=== PATIENT | male | born 1970 | race Caucasian/White ===

== ENCOUNTER → 2016-11-26 | Outpatient (REF) | payer MEDICARE, MEDICAID ==
[~2016-11-26] MED LIST: /ADVA50050; /ADVA50050 IN; /ADVA50050 INH; /ALBU4TAB PO; /ESCI10TA; /ESCI20TA; /ESCI20TA OR; /FAMO2TA PO; /LINE60TA OR; /MOM400 PO; /ONDA4TA OR; /ONDA4TA PO; ACET-654 PO; ACET500C OR; ALB2.5NEB INH; ALBU17IN INH; ALBU17IN2; ALBU17IN2 IN; ALBU83IN; ALBU83IN INH; ALBUTEROL INH; ASPI81TA45 PO; ASPI81TA51 PO; ASPI81TA85 PO; ATIV1TAB10 PO; BACT2CRE TOP; BALMOINT60 TOP; CALC500C16 PO; CEFT250T8 PO; CELE100C OR; CINACALCET; CLON0.5T PO; CLON1TAB OR; CLOP75TA2 PO; CLOTR1CR TOP; COMBVENT; COMPAZINE; CORE6.25 PO; COZA100T2 PO; DARV100T; DRIS50002 PO; DULC10SU9 PR; ENEMENE3 PR; EUCECRE12 TOP; FAMO1TAB11 PO; FLEEENE4 PR; FLEXERIL; FOSR1000 PO; GABA300C2 PO; GABAPEN; Gabapentin PO; HEPA10004 SUBQ; IMODIUM; KLON0.5T PO; KLON1TAB OR; KLON1TAB PO; LEXA1TAB2 PO; LOPERAMIDE PO; LOPR50TA OR; LOPR50TA PO; LOPRESSOR PO; LOSA100T36 PO; LOVE1INJ SC; LYRI75CA OR; MERO1INJ8 IV; METO12TA PO; METO25TA2 OR; METO25TAB PO; METOPROLOL TARTRATE; MILKSUS PO; MIRA0.12 PO; MIRA255PW OR; MIRA255PW PO; MIRAPEX; MOBI15TA PO; MOISTURIN CREAM TOP; NEPH1CAP4 OR; NEPHCAP PO; NEUR100C OR; NEUR300C PO; NIFE30TA; NORTRIPTYLINE; NYST100024 TOP; OMEP20TA7 OR; OXYC30TA4 PO; Omeprazole PO; PACE200T PO; PERC5TAB6 PO; PERC5TAB8; PERC5TAB8 OR; PERC7.5T12 PO; PERCOCET OR; PHOS667C PO; PHOSLO667 MG; PHOSLO667 MG OR; PHOSLO667 MG PO; PRED10TA2 OR; PRED20TA OR; PRED20TA PO; PRIL20CA; PRIL20CA OR; PRIL20CA PO; PROTPAK PO; PROV90AE; PROZ10CA; RENA800T; RENV2TAB PO; RENVELA OR; RENVELA PO; Renagel; SENISPAR PO; SENN-23 PO; SENN8.6C PO; SENO8.6T9 OR; SENS30TA PO; SENS60TA PO; SENS90TA PO; SENSIPAR; SENSIPAR OR; SENSIPAR PO; SEVE80TAB OR; SEVE80TAB PO; SEVELAMER CARBONATE PO; Sensipar PO; THEO300C; TIZA2TAB OR; TOPI25TA2; TOPR25TA; TOPR25TA OR; TRAM50TA2 OR; TRAMADOL PO; TRAZ50TA OR; TRAZ50TA PO; TYLE325T5 PO; VANC1INJ IV; VARE1TA; VENTAER; VICO5TAB; VIST25CA PO; VIST50CA PO; VITA500047 PO; VITAMIN D PO; VITAMIN D50000 UNT; VITAMIN D50000 UNT OR; ZANA2CAP; ZANA4CAP PO; ZEMPLAR; ZEMPLAR IV; ZEMPLAR OR; ZOFR20TA PO; ZOLO100T PO; ZOLO25TA; [UNRECOGNIZED DRUG - CODE] IV; [UNRECOGNIZED DRUG - CODE] PO; [UNRECOGNIZED DRUG - CODE] PO; [UNRECOGNIZED DRUG - OTHER]; [UNRECOGNIZED DRUG - OTHER]; [UNRECOGNIZED DRUG - OTHER] PO; [UNRECOGNIZED DRUG - OTHER] PO
== END ==
LOC: SKLAB3 17:36
PROVIDERS: ATTEND Family Medicine
DX: H10.9 Unspecified conjunctivitis (principal)

== ENCOUNTER → 2016-12-07 | Outpatient (REF) | payer MEDICARE, MEDICAID ==
--- NOTE | 2016-12-07 14:46 | REP ---
Clinical: Shortness of breath and wheezing. Technique: AP and lateral views. Comparison: 09/17/2016. Findings: Cardiomegaly is appreciated. Tracheostomy overlies the airway. Pulmonary vascular congestion with interstitial edema and trace right basilar atelectasis cannot be excluded. No definite effusion. No obvious pneumothorax. Skeletal structures grossly intact. Impression: Stable cardiomegaly. Cannot exclude mild pulmonary vascular congestion and interstitial edema as well as trace right basilar atelectasis. Signed by Juma March MD 12/07/2016 02:38 P
== END ==
LOC: SKLAB3 12:35
PROVIDERS: ATTEND Family Medicine
DX: R06.2 Wheezing (principal); R06.02 Shortness of breath; I51.7 Cardiomegaly

== ENCOUNTER → 2017-02-12 | Outpatient (REF) | payer MEDICARE, MEDICAID ==
[~2017-02-12] MED LIST changes: -PHOS667C PO; +PHOS667C5 PO
== END ==
LOC: SKLAB3 02-11 14:27
PROVIDERS: ATTEND Family Medicine
DX: G47.30 Sleep apnea, unspecified (principal)

== ENCOUNTER → 2017-04-23 | Outpatient (REF) | payer MEDICARE, MEDICAID ==
[~2017-04-23] MED LIST changes: -ACET-654 PO; +ACET1TAB17 PO; +AMOX200S2 PO; +ENEMENE16 PR; -ENEMENE3 PR; +IPRASOL4 INH; +NEPHTAB PO; -NYST100024 TOP; +NYST1POW9 TOP; +PERC5TAB12 PO; -PERC5TAB6 PO; +XANA1TAB2 PO
== END ==
LOC: SKLAB3 10:03
PROVIDERS: ATTEND Family Medicine
DX: R09.3 Abnormal sputum (principal)

== ENCOUNTER → 2017-07-09 | Outpatient (REF) | payer MEDICARE, MEDICAID ==
[2017-07-09 10:42] LABS: BASO % 0.5 % (0.0-1.0); EOS # 0.4 K/mm3 (0.0-0.50); EOS % 4.9 % (0.0-3.0); LARGE UNSTAINED CELL # 0.1 K/mm3 (0.0-0.4); LARGE UNSTAINED CELL % 1.5 % (0.0-4.0); LYMPH # 2.1 K/mm3 (1.5-4.5); LYMPH % 30.1 % (24.0-44.0); MEAN CORPUSCULAR HEMOGLOBIN 34.2 pg (27.0-33.0); MEAN CORPUSCULAR VOLUME 106.9 fl (80.0-96.0); MONO # 0.3 K/mm3 (0.0-0.8); MONO % 4.5 % (0.0-5.0); NEUTROPHILS # 4.1 K/mm3 (1.8-7.7); NEUTROPHILS % 58.5 % (36.0-66.0); PLATELET COUNT, AUTOMATED 147 k/mm3 (150-450); RED CELL DISTRIBUTION WIDTH 13.4 % (11.5-14.5); WHITE BLOOD COUNT 7.1 K/mm3 (4.0-10.0)
[2017-07-09 11:06] LABS: ALBUMIN 3.6 GM/DL (3.2-5.2); ALBUMIN/GLOBULIN RATIO 0.88 (1.00-1.93); BILIRUBIN,TOTAL 0.4 MG/DL (0.2-1.0); CALCIUM LEVEL 9.1 MG/DL (8.5-10.1); CREATININE FOR GFR 6.87 MG/DL (0.70-1.30); FREE T4 0.99 NG/DL (0.76-1.46); GLOMERULAR FILTRATION RATE 9.3 (>60); POTASSIUM SERUM 4.3 MEQ/L (3.5-5.1); TOTAL PROTEIN 7.7 GM/DL (6.4-8.2)
== END ==
LOC: SKLAB3 02:38
PROVIDERS: ATTEND Family Medicine
DX: N18.6 End stage renal disease (principal); Z79.899 Other long term (current) drug therapy

== ENCOUNTER → 2017-07-14 | Outpatient (REF) | payer MEDICARE, MEDICAID ==
--- NOTE | 2017-07-14 19:03 | ECGEPIP ---
Stationary ECG Study [facility] Test Date: 2017-07-14 Pat Name: LINDSAY DEVINE Department: Room: - Gender: M Resolution Expert: AIMEE : 1970 Requested By: Clarence Kimball Order Number: [id number] Reading MD: Shahram Lozoya Measurements Intervals [place] Rate: 69 P: -89 NE: 227 QRS: -64 QRSD: 120 T: 60 QT: 431 QTc: 463 Interpretive Statements Normal sinus rhythm with first-degree AV block Left Anterior fascicular block Delayed precordial R-wave progression Compared to prior tracing of 05/03/2016, heart rate is slower Electronically Signed On 07-14-2017 19:03:38 EDT by Shahram Lozoya
== END ==
LOC: SKLAB3 10:01
PROVIDERS: ATTEND Family Medicine
DX: Z01.818 Encounter for other preprocedural examination (principal)

== ENCOUNTER 2017-07-16 09:14 | Emergency (ER) | payer MEDICARE, MEDICAID ==
[~2017-07-16] VITALS: Ht 190.5 cm; Wt 198.0 kg
[~2017-07-16 09:14] MED LIST changes: -AMOX200S2 PO; -IPRASOL4 INH
[2017-07-16 09:44] LABS: ABG BASE EXCESS -2.5 (-2.0-2.0); ABG HCO3 24.8 MEQ/L (22.0-26.0); ABG PARTIAL PRESSURE CO2 54.2 mmHg (35.0-45.0); ABG PARTIAL PRESSURE O2 70.9 mmHg (75.0-100.0); ABG STANDARD HCO3 22.3 MEQ/L (22.0-26.0); ABG TOTAL CO2 26.4 MEQ/L (22.0-29.0); ABG pH (ARTERIAL) 7.278 UNITS (7.350-7.450)
[2017-07-16] MEDS ORDERED: IPRATROPIUM 0.5MG/ALBUTEROL 2.5MG INH SOL UD 3ML (DUONEB)(J7620) NEB ONE ×2 (09:45→12:00)
[2017-07-16] MEDS ORDERED: AMOX200S2 PO (09:48)
[2017-07-16] MEDS ORDERED: methylPREDNISolone INJ 125 MG/2 ML VIAL (J2930) IV ONE (10:15)
--- NOTE | 2017-07-16 11:01 | REP ---
Chest a semi upright AP and lateral views: Total of four views two AP and two lateral. Comparison is 10/06/2017. There is chronic cardiomegaly. Diffuse bilateral interstitial coarsening is again identified, unchanged, vascular engorgement, acute versus chronic. Tracheostomy is again identified, unchanged. There are no pleural effusions. Signed by Last Caldwell MD 07/16/2017 10:52 A
--- NOTE | 2017-07-16 11:48 | ECGEPIP ---
Stationary ECG Study [facility] - ED Test Date: 2017-07-16 Pat Name: LINDSAY DEVINE Department: Room: - Gender: M Manager Fashion: THOM : 1970 Requested By: Aly Lopez Order Number: [id number] Reading MD: Meenu Helm Measurements Intervals [place] Rate: 59 P: 14 MT: 263 QRS: -68 QRSD: 129 T: 59 QT: 467 QTc: 466 Interpretive Statements SINUS BRADYCARDIA WITH FIRST DEGREE AV BLOCK POSSIBLE RIGHT VENTRICULAR CONDUCTION DELAY LEFT ANTERIOR FASCICULAR BLOCK PROLONGED QT INTERVAL SIMILAR 07/14/17 Electronically Signed On 07-16-2017 11:48:00 EDT by Meenu Helm
[2017-07-16 11:59] LABS: CALCIUM LEVEL 9.3 MG/DL (8.5-10.1); CREATININE FOR GFR 6.72 MG/DL (0.70-1.30); GLOMERULAR FILTRATION RATE 9.5 (>60)
[2017-07-16 12:00] LABS: POTASSIUM SERUM 5.3 MEQ/L (3.5-5.1)
[2017-07-16 12:06] LABS: BASO % 0.6 % (0.0-1.0); EOS # 0.4 K/mm3 (0.0-0.50); EOS % 5.6 % (0.0-3.0); LARGE UNSTAINED CELL # 0.2 K/mm3 (0.0-0.4); LARGE UNSTAINED CELL % 1.9 % (0.0-4.0); LYMPH # 2.3 K/mm3 (1.5-4.5); LYMPH % 29.1 % (24.0-44.0); MEAN CORPUSCULAR HEMOGLOBIN 35.3 pg (27.0-33.0); MEAN CORPUSCULAR HGB CONC 33.3 g/dl (32.0-36.5); MEAN CORPUSCULAR VOLUME 106.1 fl (80.0-96.0); MONO # 0.3 K/mm3 (0.0-0.8); MONO % 3.5 % (0.0-5.0); NEUTROPHILS # 4.8 K/mm3 (1.8-7.7); NEUTROPHILS % 59.3 % (36.0-66.0); PLATELET COUNT, AUTOMATED 136 k/mm3 (150-450); RED CELL DISTRIBUTION WIDTH 12.9 % (11.5-14.5)
[2017-07-16 13:22] LABS: ABG BASE EXCESS 0.4 (-2.0-2.0); ABG HCO3 28.8 MEQ/L (22.0-26.0); ABG PARTIAL PRESSURE O2 79.2 mmHg (75.0-100.0); ABG STANDARD HCO3 24.7 MEQ/L (22.0-26.0); ABG TOTAL CO2 30.8 MEQ/L (22.0-29.0); ABG pH (ARTERIAL) 7.263 UNITS (7.350-7.450)
[2017-07-16 13:24] LABS: ABG PARTIAL PRESSURE CO2 65.2 mmHg (35.0-45.0)
[2017-07-16 15:00] LABS: ABG BASE EXCESS -0.1 (-2.0-2.0); ABG HCO3 27.2 MEQ/L (22.0-26.0); ABG PARTIAL PRESSURE CO2 56.6 mmHg (35.0-45.0); ABG PARTIAL PRESSURE O2 80.5 mmHg (75.0-100.0); ABG STANDARD HCO3 24.3 MEQ/L (22.0-26.0)
[2017-07-16] MEDS ORDERED: ALPRAZolam 0.25 MG TAB PO ONE ×2 (18:15)
[2017-07-16 18:30] VITALS: BP 169/91
[2017-07-16 19:32] LABS: ABG BASE EXCESS -1.3 (-2.0-2.0); ABG HCO3 24.7 MEQ/L (22.0-26.0); ABG PARTIAL PRESSURE CO2 46.7 mmHg (35.0-45.0); ABG STANDARD HCO3 23.2 MEQ/L (22.0-26.0); ABG TOTAL CO2 26.2 MEQ/L (22.0-29.0); ABG pH (ARTERIAL) 7.342 UNITS (7.350-7.450)
[2017-08-16] MEDS ORDERED: IPRASOL4 INH (09:14)
[2017-08-16] MEDS ORDERED: RENV2TAB PO (09:14)
[2017-08-16] MEDS ORDERED: PRED20TA PO (09:14)
== END 2017-07-16 21:54 | disposition home or self-care (01) ==
LOC: M ED 09:14 → EDBD 09:14 → M ED 21:54
DX: J96.10 Chronic respiratory failure, unspecified whether with hypoxia or hypercapnia (principal); R00.1 Bradycardia, unspecified; I44.0 Atrioventricular block, first degree; I51.7 Cardiomegaly; I10 Essential (primary) hypertension; J84.9 Interstitial pulmonary disease, unspecified; I87.8 Other specified disorders of veins; N18.6 End stage renal disease; Z99.2 Dependence on renal dialysis; E66.01 Morbid (severe) obesity due to excess calories; G47.33 Obstructive sleep apnea (adult) (pediatric); Z93.0 Tracheostomy status; Z79.899 Other long term (current) drug therapy; Z88.1 Allergy status to other antibiotic agents
CPT/HCPCS: 36415; 36600; 71020; 80048; 82550; 82553; 82803; 83605; 84484; 85025; 87040; 93005; 93041; 94640; 96374; 99285; J2930

== ENCOUNTER → 2017-12-06 | Outpatient (REF) | payer MEDICARE, MEDICAID ==
[2017-12-06 14:45] LABS: INFLUENZA A AMPLIFICATION NEGATIVE (NEGATIVE); INFLUENZA B AMPLIFICATION NEGATIVE (NEGATIVE); RSV AMPLIFICATION NEGATIVE (NEGATIVE)
== END ==
LOC: SKLAB3 09:23
DX: J84.9 Interstitial pulmonary disease, unspecified (principal); I51.7 Cardiomegaly; R05 Cough
CPT/HCPCS: 71046

== ENCOUNTER → 2018-01-03 | Outpatient (REF) | payer MEDICARE, MEDICAID ==
[2018-01-03 08:19] LABS: BASO % 0.5 % (0.0-1.0); EOS # 0.5 10^3/uL (0.0-0.50); HEMATOCRIT 33.6 % (42.0-52.0); HEMOGLOBIN 10.2 g/dl (14.0-18.0); IMMATURE GRANULOCYTE % 0.4 % (0-3.0); LYMPH # 2.6 10^3/uL (1.5-4.5); LYMPH % 33.8 % (24.0-44.0); MEAN CORPUSCULAR HEMOGLOBIN 33.6 pg (27.0-33.0); MEAN CORPUSCULAR HGB CONC 30.4 g/dl (32.0-36.5); MEAN CORPUSCULAR VOLUME 110.5 fl (80.0-96.0); MONO # 0.4 10^3/uL (0.0-0.8); MONO % 5.7 % (0.0-5.0); NEUTROPHILS # 4.1 10^3/uL (1.8-7.7); NEUTROPHILS % 53.6 % (36.0-66.0); PLATELET COUNT, AUTOMATED 124 10^3/uL (150-450); RED BLOOD COUNT 3.04 10^6/uL (4.30-6.10); RED CELL DISTRIBUTION WIDTH 14.5 % (11.5-14.5); WHITE BLOOD COUNT 7.6 10^3/uL (4.0-10.0)
[2018-01-03 09:09] LABS: ALBUMIN 3.8 GM/DL (3.2-5.2); ALKALINE PHOSPHATASE 66 U/L (45-117); ALT/SGPT 51 U/L (12-78); ANION GAP 12 MEQ/L (8-16); AST/SGOT 25 U/L (7-37); BILIRUBIN,TOTAL 0.4 MG/DL (0.2-1.0); BLOOD UREA NITROGEN 51 MG/DL (7-18); CALCIUM LEVEL 8.2 MG/DL (8.5-10.1); CARBON DIOXIDE LEVEL 26 MEQ/L (21-32); CHLORIDE LEVEL 102 MEQ/L (98-107); CREATININE FOR GFR 7.88 MG/DL (0.70-1.30); GLOMERULAR FILTRATION RATE 7.9 (>60); GLUCOSE, FASTING 107 MG/DL (70-100); POTASSIUM SERUM 4.7 MEQ/L (3.5-5.1); SODIUM LEVEL 140 MEQ/L (136-145); TOTAL PROTEIN 7.6 GM/DL (6.4-8.2)
== END ==
LOC: SKLAB3 12:51
DX: N18.6 End stage renal disease (principal); Z79.899 Other long term (current) drug therapy
CPT/HCPCS: 84443

== ENCOUNTER → 2018-01-03 | Outpatient (REF) | payer MEDICARE, MEDICAID | LOC: SKLAB3 12:50 | DX: D64.9 Anemia, unspecified (principal); N18.6 End stage renal disease ==

== ENCOUNTER → 2018-02-11 | Outpatient (REF) | payer MEDICARE, MEDICAID | LOC: SKLAB3 13:02 | DX: J02.9 Acute pharyngitis, unspecified (principal) | CPT/HCPCS: 87070 ==

== ENCOUNTER → 2018-02-21 | Outpatient (REF) | payer MEDICARE, MEDICAID | LOC: SKLAB3 10:32 | DX: R68.84 Jaw pain (principal); Z93.0 Tracheostomy status | CPT/HCPCS: 70360 ==

== ENCOUNTER → 2018-05-29 | Outpatient (REF) | payer MEDICARE, MEDICAID ==
[2018-05-29 14:48] LABS: BASO % 0.5 % (0.0-1.0); EOS # 0.5 10^3/uL (0.0-0.50); EOS % 6.2 % (0.0-3.0); HEMATOCRIT 35.4 % (42.0-52.0); IMMATURE GRANULOCYTE % 0.3 % (0-3.0); LYMPH # 2.3 10^3/uL (1.5-4.5); LYMPH % 31.6 % (24.0-44.0); MEAN CORPUSCULAR HEMOGLOBIN 34.3 pg (27.0-33.0); MEAN CORPUSCULAR HGB CONC 31.1 g/dl (32.0-36.5); MEAN CORPUSCULAR VOLUME 110.3 fl (80.0-96.0); MONO # 0.6 10^3/uL (0.0-0.8); MONO % 7.7 % (0.0-5.0); NEUTROPHILS % 53.7 % (36.0-66.0); PLATELET COUNT, AUTOMATED 117 10^3/uL (150-450); RED BLOOD COUNT 3.21 10^6/uL (4.30-6.10); RED CELL DISTRIBUTION WIDTH 14.4 % (11.5-14.5); WHITE BLOOD COUNT 7.4 10^3/uL (4.0-10.0)
== END ==
LOC: SKLAB3 13:59
DX: R50.9 Fever, unspecified (principal); R09.81 Nasal congestion
CPT/HCPCS: 71045

== ENCOUNTER → 2018-07-11 | Outpatient (REF) | payer MEDICARE, MEDICAID ==
[2018-07-11 11:57] LABS: ALBUMIN 3.7 GM/DL (3.2-5.2); ALBUMIN/GLOBULIN RATIO 0.93 (1.00-1.93); ALKALINE PHOSPHATASE 75 U/L (45-117); ALT/SGPT 45 U/L (12-78); ANION GAP 11 MEQ/L (8-16); AST/SGOT 15 U/L (7-37); BILIRUBIN,TOTAL 0.4 MG/DL (0.2-1.0); BLOOD UREA NITROGEN 55 MG/DL (7-18); CALCIUM LEVEL 10.5 MG/DL (8.5-10.1); CARBON DIOXIDE LEVEL 29 MEQ/L (21-32); CHLORIDE LEVEL 101 MEQ/L (98-107); CREATININE FOR GFR 8.59 MG/DL (0.70-1.30); GLOMERULAR FILTRATION RATE 7.2 (>60); GLUCOSE, FASTING 107 MG/DL (70-100); POTASSIUM SERUM 4.6 MEQ/L (3.5-5.1); SODIUM LEVEL 141 MEQ/L (136-145); TOTAL PROTEIN 7.7 GM/DL (6.4-8.2)
== END ==
LOC: SKLAB3 11:33
DX: N18.9 Chronic kidney disease, unspecified (principal); Z79.899 Other long term (current) drug therapy
CPT/HCPCS: 84443

== ENCOUNTER → 2018-10-07 | Outpatient (CLI) | payer MEDICARE, MEDICAID ==
[~2018-10-07] MED LIST changes: -ACET1TAB17 PO; +ACET1TAB55 PO; +AMOX200S2 PO; -CLON0.5T PO; +CLON0.5T8 PO; -DRIS50002 PO; +DRIS50003 PO; +IPRA0.00 INH; +ISOVUE-300 61% 50ML VIAL (Q9967) As Ordered ONE; +LIDOCAINE 2% MDV 20 ML VIAL As Ordered ONE; +LOSA-4 PO; -LOSA100T36 PO; +MILK12002 PO; -MILKSUS PO; -ZOFR20TA PO; +ZOFR4TAB16 PO
--- NOTE | 2018-10-13 08:52 | REPIR ---
DATE OF PROCEDURE: 10/07/2018 ATTENDING SURGEON: Dr. Yadiel Rose BB SHOT PACKER: Jennifer Muniz and Stacy Barnes PREOPERATIVE DIAGNOSIS: End-stage renal disease, dysfunctional right radiocephalic arteriovenous fistula with aneurysmal degeneration and ulceration overlying the aneurysmal degeneration. POSTOPERATIVE DIAGNOSIS: End-stage renal disease, dysfunctional right radiocephalic arteriovenous fistula with aneurysmal degeneration and ulceration overlying the aneurysmal degeneration. PROCEDURE: Right radiocephalic arteriovenous fistulogram. INDICATION: The patient is a 48-year-old male with end-stage renal disease who dialyzes through a right radiocephalic arteriovenous fistula and has aneurysmal degeneration of the cephalic vein. The patient will undergo a fistulogram with possible angioplasty stent and/or atherectomy. Risks, benefits and alternative treatment options were discussed with the patient. ANESTHESIA: Local with 2 mL of 2% lidocaine. FLUORO TIME: 0.1 minutes. CONTRAST: 2 mL. COMPLICATIONS: None. DRAINS: None. SPECIMENS: None. IMPLANTS: None. DESCRIPTION OF PROCEDURE: The patient was taken to the angiography suite, placed supine on the angiography room table and the right upper extremity was prepped and draped in a standard surgical fashion. The arteriovenous fistula was cannulated with a micropuncture needle after anesthetizing the overlying skin with 2% lidocaine. The micropuncture wire was advanced through the micropuncture needle which was upsized to a micropuncture sheath. A fistulogram was performed showing no intervention was required. The sheath was removed and manual compression applied at the puncture site for hemostasis. Dressings were then applied. The patient tolerated the procedure well. All instrument, sponge and needle counts were correct at the end of the case. There were no complications. Dr. Rose was present for and directed the entire case. The patient was transferred to the holding area and subsequent discharged in stable condition. RADIOLOGIC SUPERVISION INTERPRETATION: The radiocephalic fistula was patent from cannulation site at the wrist all the way up to the antecubital fossa where there was flow into the upper arm. There was no stenosis or occlusion noted. There was aneurysmal degeneration of the cephalic vein in the wrist and forearm region which will be followed closely.
== END | disposition home or self-care (01) ==
LOC: M IRPRO 09:17
PROVIDERS: ATTEND Surgery Vascular Surgery
DX: T82.898A Other specified complication of vascular prosthetic devices, implants and grafts, initial encounter (principal); N18.6 End stage renal disease; Z99.2 Dependence on renal dialysis
CPT/HCPCS: 36901; C1894; Q9967

== ENCOUNTER → 2018-10-26 | Outpatient (CLI) | payer MEDICARE, MEDICAID ==
[~2018-10-26] MED LIST changes: -ENEMENE16 PR; +ENEMENE4 PR; -ISOVUE-300 61% 50ML VIAL (Q9967) As Ordered ONE; -LIDOCAINE 2% MDV 20 ML VIAL As Ordered ONE; -LOSA-4 PO; +LOSA100T50 PO; +MILK120011 PO; -MILK12002 PO
--- NOTE | 2018-10-26 17:41 | REP ---
Urinary tract sonography: History: Chronic intermittent right flank pain. Findings: Exam quality is significantly inhibited by patient body habitus and mobility issues. The kidneys are poorly seen bilaterally. Right kidney measures 11.4 x 5.5 x 5.1 cm. Left renal dimensions are 12.7 x 6.8 x 8.3 cm. There is a suggestion of mild separation of central renal sinus echoes bilaterally but exam quality is severely limited. Urinary bladder is not seen. Impression: Very poor exam quality due to patient body habitus and mobility issues. Cannot exclude mild bilateral hydronephrosis. Electronically Signed by Elvis Vo MD 10/26/2018 06:58 P
== END ==
LOC: M RAD 14:36
PROVIDERS: ATTEND Family Medicine
DX: R10.31 Right lower quadrant pain (principal)

== ENCOUNTER → 2018-11-12 | Outpatient (REF) | payer MEDICARE, MEDICAID ==
--- NOTE | 2018-11-13 07:15 | REP ---
AP PORTABLE CHEST: 11/12/2018. Comparison: AP lateral chest 12/06/2017. Clinical history: Harsh cough. Findings: Tracheostomy tube again seen. Diffusely coarse interstitial markings are again noted. Pattern is unchanged. There is some venous hypertension without hernan edema. I see no dense consolidation. The posterior lower lung zone opacity could certainly be obscured chronic epicardial fat pad effect on both sides of the heart. Stable. The aorta is tortuous but normal for age. Mediastinum unchanged. Impression: 1. Prominent cardiac silhouette with epicardial fat pads contribute to this true heart size difficult to evaluate. 2. Venous hypertension without hernan edema or gross effusion. 3. No dense consolidation. Electronically Signed by Vincent Stacy MD 11/13/2018 09:51 A
== END ==
LOC: M RAD 13:58 → SKLAB3 13:58
PROVIDERS: ATTEND Family Medicine
DX: R05 Cough (principal)

== ENCOUNTER → 2018-11-12 | Outpatient (REF) | payer MEDICARE, MEDICAID | LOC: M LAB 15:28 → SKLAB3 15:28 | PROVIDERS: ATTEND Family Medicine | DX: R05 Cough (principal) ==

== ENCOUNTER → 2018-12-05 | Outpatient (REF) | payer MEDICARE, MEDICAID | LOC: SKLAB7 11:34 | PROVIDERS: ATTEND Family Medicine | DX: J02.9 Acute pharyngitis, unspecified (principal); R05 Cough; R09.81 Nasal congestion ==

== ENCOUNTER → 2018-12-12 | Outpatient (REF) | payer MEDICARE, MEDICAID ==
[2018-12-12 08:59] LABS: BASO # 0.1 10^3/uL (0.0-0.2); BASO % 0.6 % (0.0-1.0); EOS # 0.5 10^3/uL (0.0-0.50); EOS % 5.4 % (0.0-3.0); HEMATOCRIT 39.7 % (42.0-52.0); HEMOGLOBIN 12.2 g/dl (13.5-17.5); LYMPH # 2.8 10^3/uL (1.5-4.5); LYMPH % 30.2 % (24.0-44.0); MEAN CORPUSCULAR HEMOGLOBIN 34.2 pg (27.0-33.0); MEAN CORPUSCULAR HGB CONC 30.7 g/dl (32.0-36.5); MEAN CORPUSCULAR VOLUME 111.2 fl (80.0-96.0); MONO # 0.4 10^3/uL (0.0-0.8); MONO % 4.7 % (0.0-5.0); NEUTROPHILS # 5.5 10^3/uL (1.8-7.7); NEUTROPHILS % 58.8 % (36.0-66.0); PLATELET COUNT, AUTOMATED 134 10^3/uL (150-450); RED BLOOD COUNT 3.57 10^6/uL (4.30-6.10); WHITE BLOOD COUNT 9.4 10^3/uL (4.0-10.0)
== END ==
LOC: SKLAB3 12:55
PROVIDERS: ATTEND Family Medicine
DX: D64.9 Anemia, unspecified (principal)

== ENCOUNTER → 2019-01-09 | Outpatient (REF) | payer MEDICARE, MEDICAID ==
[2019-01-09 09:03] LABS: ALBUMIN 3.6 GM/DL (3.2-5.2); BILIRUBIN,TOTAL 0.6 MG/DL (0.2-1.0); CALCIUM LEVEL 8.9 MG/DL (8.5-10.1); CREATININE FOR GFR 7.94 MG/DL (0.70-1.30); FREE T4 0.86 NG/DL (0.76-1.46); GLOMERULAR FILTRATION RATE 7.8 (>60); POTASSIUM SERUM 4.2 MEQ/L (3.5-5.1); THYROID STIMULATING HORMONE 2.39 uIU/ML (0.358-3.740); TOTAL PROTEIN 7.6 GM/DL (6.4-8.2)
== END ==
LOC: SKLAB3 07:00
PROVIDERS: ATTEND Family Medicine
DX: N18.9 Chronic kidney disease, unspecified (principal); Z79.899 Other long term (current) drug therapy

== ENCOUNTER → 2019-01-27 | Outpatient (REF) | payer MEDICARE, MEDICAID ==
[~2019-01-27] MED LIST changes: -/ADVA50050; -/ADVA50050 IN; -/ADVA50050 INH; -/ALBU4TAB PO; -/ESCI10TA; -/ESCI20TA; -/ESCI20TA OR; -/FAMO2TA PO; -/LINE60TA OR; -/MOM400 PO; -/ONDA4TA OR; -/ONDA4TA PO; +ADVA1AER2; +ADVA1AER2 IN; +ADVA1AER2 INH; +ALBU1TAB2 PO; +CLOT1CRE27 TOP; -CLOTR1CR TOP; +LEXA1TAB; +LEXA1TAB2; +LEXA1TAB2 OR; +METO-1; +METO-1 OR; +METO-346 PO; -METO12TA PO; +METO1TAB63 PO; -METO25TAB PO; +MILK10SU PO; -MIRA255PW OR; -MIRA255PW PO; +ONDA-1 OR; +ONDA-1 PO; +OXYC1TAB23 OR; -PERCOCET OR; +POLY1POW4 OR; +POLY1POW4 PO; +RENV2TAB OR; -SEVE80TAB OR; -SEVE80TAB PO; -TOPR25TA; -TOPR25TA OR; +ZYVO100T OR
--- NOTE | 2019-01-27 16:16 | REP ---
Clinical: Throat pain. History of tracheostomy. Comparison: 02/21/2018 Technique: AP and lateral soft tissue neck radiographs. Findings: A tracheostomy is appreciated and on frontal image seems to project to the right of midline and the airway. The airway itself is grossly normal. Evaluation is limited due to body habitus and technical factors. Impression: Limited examination. As above. Consider CT if necessary. Electronically Signed by Juma March MD 01/27/2019 04:06 P
== END ==
LOC: SKLAB3 15:26
PROVIDERS: ATTEND Family Medicine
DX: R07.0 Pain in throat (principal); Z93.0 Tracheostomy status

== ENCOUNTER → 2019-02-20 | Outpatient (REF) | payer MEDICARE, MEDICAID ==
[~2019-02-20] MED LIST changes: +NEPH1TAB11 PO; -NEPHTAB PO
== END ==
LOC: SKLAB3 09:49
PROVIDERS: ATTEND Family Medicine
DX: Z99.2 Dependence on renal dialysis (principal)

== ENCOUNTER → 2019-02-27 | Outpatient (REF) | payer MEDICARE, MEDICAID ==
--- NOTE | 2019-02-27 10:24 | REP ---
RIGHT SECOND DIGIT, FOUR VIEWS: Four views, right second digit performed. No fracture or dislocation is seen. I see no intrinsic osseous pathology. IMPRESSION: No fracture or dislocation. Electronically Signed by Last Lin MD 02/28/2019 10:10 A
== END ==
LOC: SKLAB3 08:43
PROVIDERS: ATTEND Family Medicine
DX: S69.91XA Unspecified injury of right wrist, hand and finger(s), initial encounter (principal); Y92.89 Other specified places as the place of occurrence of the external cause; Y93.89 Activity, other specified; X58.XXXA Exposure to other specified factors, initial encounter; Y99.8 Other external cause status

== ENCOUNTER 2019-03-04 07:56 | Inpatient (IN) | payer MEDICARE, MEDICAID ==
[~2019-03-04] VITALS: Ht 195.6 cm; Wt 196.4 kg
[2019-03-04] MEDS: AMIODARONE 200 MG TAB (PACERONE) PO SCH (09:00)
[2019-03-04] MEDS: ESCITALOPRAM OXALATE 10 MG TAB (LEXAPRO) PO SCH (09:00)
[2019-03-04] MEDS: CINACALCET 30 MG TAB (SENSIPAR) PO SCH (09:00)
[2019-03-04] MEDS: DOCUSATE SODIUM 100 MG CAP PO SCH (09:00)
[2019-03-04] MEDS: CARVedilol 6.25 MG TAB PO SCH ×2 (09:00→19:50)
[2019-03-04] MEDS: NEPHRO-VIT TAB (NEPHROCAPS) PO SCH (09:00)
[2019-03-04 09:45] LABS: BASO # 0.1 10^3/uL (0.0-0.2); BASO % 0.7 % (0.0-1.0); EOS # 0.5 10^3/uL (0.0-0.50); EOS % 5.3 % (0.0-3.0); HEMATOCRIT 43.4 % (42.0-52.0); HEMOGLOBIN 13.2 g/dl (13.5-17.5); LYMPH # 3.2 10^3/uL (1.5-4.5); LYMPH % 31.7 % (24.0-44.0); MEAN CORPUSCULAR HEMOGLOBIN 33.8 pg (27.0-33.0); MEAN CORPUSCULAR HGB CONC 30.4 g/dl (32.0-36.5); MONO # 0.7 10^3/uL (0.0-0.8); MONO % 6.8 % (0.0-5.0); NEUTROPHILS # 5.6 10^3/uL (1.8-7.7); NEUTROPHILS % 55.1 % (36.0-66.0); PLATELET COUNT, AUTOMATED 121 10^3/uL (150-450); RED BLOOD COUNT 3.91 10^6/uL (4.30-6.10); WHITE BLOOD COUNT 10.2 10^3/uL (4.0-10.0)
[2019-03-04] MEDS ORDERED: LACROIN OU (10:13)
[2019-03-04] MEDS ORDERED: ESCI10TA2 PO (10:13)
[2019-03-04] MEDS ORDERED: OXYC-517 PO (10:13)
[2019-03-04] MEDS ORDERED: DULC10SU2 PR (10:13)
[2019-03-04] MEDS ORDERED: COLA100C5 PO (10:13)
[2019-03-04] MEDS ORDERED: OXYC1TAB23 PO (10:13)
[2019-03-04] MEDS ORDERED: ENEMENE PR (10:13)
[2019-03-04] MEDS ORDERED: AMOX500C PO (10:13)
[2019-03-04] MEDS ORDERED: PREPOI PR (10:13)
[2019-03-04] MEDS ORDERED: AURY1TAB PO (10:13)
[2019-03-04] MEDS ORDERED: ALBU17IN2 INH (10:13)
[2019-03-04] MEDS ORDERED: GUAIDM5UD PO (10:13)
[2019-03-04 10:14] LABS: ALBUMIN 3.5 GM/DL (3.2-5.2); BILIRUBIN,DIRECT 0.1 MG/DL (0.0-0.2); BILIRUBIN,TOTAL 0.5 MG/DL (0.2-1.0); CALCIUM LEVEL 8.6 MG/DL (8.5-10.1); CREATININE FOR GFR 8.46 MG/DL (0.70-1.30); GLOMERULAR FILTRATION RATE 7.3 (>60); MAGNESIUM LEVEL 2.2 MG/DL (1.8-2.4); PHOSPHORUS LEVEL 6.4 MG/DL (2.5-4.9); TOTAL PROTEIN 7.2 GM/DL (6.4-8.2)
[2019-03-04 11:08] LABS: INR 1.04; PARTIAL THROMBOPLASTIN TIME 30.8 SECONDS (25.4-37.6); PROTHROMBIN TIME 13.7 SECONDS (12.1-14.4)
[2019-03-04] MEDS ORDERED: IPRATROPIUM 0.5MG/ALBUTEROL 2.5MG INH SOL UD 3ML (DUONEB)(J7620) NEB ONE (11:15)
[2019-03-04] MEDS ORDERED: MORPHINE 4 MG/ML 1ML VIAL/SYRINGE (J2270) IV ONE (11:15)
[2019-03-04] MEDS ORDERED: FLEET ENEMA PR PRN (12:00)
[2019-03-04] MEDS ORDERED: BISACODYL 10 MG SUPP PR PRN (12:00)
[2019-03-04] MEDS ORDERED: ALPRAZolam 0.5 MG TAB PO PRN (12:00)
[2019-03-04] MEDS ORDERED: LACRILUBE (AKWA TEARS) OPHTH OINT 3.5 GM OU PRN (12:00)
[2019-03-04] MEDS ORDERED: PREPARATION H OINTMENT (HEMORRHOID) PR PRN (12:00)
[2019-03-04] MEDS ORDERED: LIDOCAINE 1% SDV INJ 30 ML VIAL As Ordered ONE (12:22)
[2019-03-04] MEDS ORDERED: HEPARIN SOD (PORCINE) 5000 UNITS/ML VIAL As Ordered ONE ×2 (12:23→13:57)
[2019-03-04] MEDS ORDERED: BUPIVACAINE HCL 0.5% 30 ML VIAL As Ordered ONE (12:23)
[2019-03-04] MEDS ORDERED: NS 1,000 ML IV SCH (12:45)
[2019-03-04] MEDS ORDERED: VANCOMYCIN 1000 MG/20 ML VIAL (J3370) As Ordered ONE (13:11)
[2019-03-04] MEDS ORDERED: ceFAZolin 1GM INJ (J0690 PER 500MG) As Ordered ONE (13:12)
[2019-03-04] MEDS ORDERED: ceFAZolin 2 GM/D5W 50 ML IV BAG (J0690 PER 500MG) As Ordered ONE (13:12)
[2019-03-04] MEDS ORDERED: LIDOCAINE 2% MDV 20 ML VIAL SQ ONE (13:27)
[2019-03-04] MEDS ORDERED: fentaNYL 100 MCG/2 ML INJECTION (J3010) As Ordered ONE ×2 (13:31→14:08)
--- NOTE | 2019-03-04 13:43 | HPE ---
DATE OF ADMISSION: 03/04/2019 CHIEF COMPLAINT: Clotted dialysis shunt. HISTORY: The patient was sent to the ED from dialysis because of inability to access his shunt for dialysis today. The patient has chronic renal disease, morbid obesity, hypoventilation, Pickwickian syndrome, has a trache and uses BiPAP for ventilatory support. He has been on dialysis now for vascular access. PAST MEDICAL HISTORY: Includes: Staph aureus bacteremia. Hypertensive nephropathy. Super morbid obesity. Obstructive sleep apnea. Pickwickian syndrome. Secondary hyperparathyroidism. Gastroesophageal reflux disease. Chronic anxiety. He has a history of paroxysmal atrial fibrillation, but is not on active anticoagulation because of history of developing perinephric hematoma. ALLERGIES: Reported allergy MOXIFLOXACIN. I think this reflects broad contraindication for nonsteroidal anti-inflammatory drugs. CURRENT MEDICATIONS: Include: - Tylenol - albuterol nebs every 2 hours as needed - Proventil two puffs every 4 hours as needed - alprazolam 1 mg every 8 hours as needed for anxiety - amiodarone 200 mg daily - amoxicillin 500 mg 2 grams given before dental procedures. He has recently had dental extractions, so it is not clear that he will need this in the future. - bisacodyl 10 mg TX as needed for constipation - carvedilol 6.25 mg by mouth twice a day - Sensipar 90 mg daily - docusate sodium 200 mg daily - vitamin D 50,000 units weekly - escitalopram 10 mg daily - ferric citrate 630 mg daily, Wednesday, and Wednesday dosed at 6:00 a.m., 12:00 and 5:00 p.m. on those days - gabapentin 300 mg three times a day - guaifenesin dextromethorphan 10 mL every 4 hours as needed cough - DuoNeb one inhalation twice a day - Lacri-Lube ointment for his eyes twice a day - oxycodone 10 mg three times per week before dialysis - oxycodone 5-325 one tablet every 6 hours as needed - preparation H one application TX twice a day as needed for hemorrhoids - Mirapex 0.125 mg daily presumably for restless leg syndrome - senna S tablets two tablets at bedtime - Renvela 800 mg tabs he takes 4800 mg three times a day on non dialysis days - Fleet's enema one TX as needed for constipation - Nephro-Shante multivitamin one daily REVIEW OF SYSTEMS: Limited, but the patient at this time has no active pain, does not feel dyspneic, has no nausea, vomiting, cramping or abdominal pain, seems to be at his usual basic state with no new complaints offered other than needing dialysis and having no access. EXAMINATION: VITAL SIGNS: Blood pressure 96/57, pulse 60, respiratory 20. Trache collar at 35% with a pulse ox of 93%. No fever, 97.3 oral. LABORATORY: Remarkable for hemoglobin of 13.2, white count 10,200, platelet count 121,000. Chemistries creatinine 8.46, potassium 5, sodium 138, phosphorus 6.4, albumin 3.5. Liver enzymes normal. PHYSICAL EXAMINATION: He is alert, obese, cooperative, pleasant in no apparent distress. HEENT: Trache is in place. No oral lesions noted, largely edentulous. No mucosal lesions noted. No neck mass palpable. LUNGS: Diminished breath sounds but no wheezing, rales or rhonchi appreciated. HEART: Regular rhythm. At this time I do not hear a murmur. ABDOMEN: Obese, soft. No guarding, mass, rebound or tenderness. EXTREMITIES: Show no evidence of edema at this time. Fistula in the right forearm seems to not be functioning. No thrill is appreciated. He has been seen by Dr. Ybarra and will soon go to the OR. 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 Morbid obesity with Pickwickian syndrome status post placement trache and vent dependent and uses BiPAP when sleeping. Ventilatory parameters first BiPAP inspiratory pressure 22, expiratory pressure 5, backup rate 6, FiO2 21% or 0.21. ASSESSMENT/PLAN: The patient will be taken to the OR today by Dr. Ybarra for placement of PermaCath with plan for shunt revision to follow. The patient could be discharged back to [facility] following dialysis on Wednesday unless shunt revision is anticipated to be done in the very near future. If so, then option would be for him to stay until shunt revision can be completed, in which case he will need to be changed from observation to inpatient status. [facility] HOSPITALCynthia
[2019-03-04] MEDS ORDERED: MIDAZOLAM INJ 2 MG/2 ML VIAL (J2250) As Ordered ONE (13:45)
[2019-03-04] MEDS: GABAPENTIN 300 MG CAP PO SCH ×2 (16:00→22:27)
--- NOTE | 2019-03-04 17:13 | ECGEPIP ---
Stationary ECG Study [facility] - ED Test Date: 2019-03-04 Pat Name: LINDSAY DEVINE Department: Room: - Gender: M Sql Database Administrator: : 1970 Requested By: TOÑO MURPHY PA-C. Order Number: [id number] Reading MD: Aly Carolina Measurements Intervals [place] Rate: 55 P: 108 MN: 233 QRS: -73 QRSD: 133 T: 52 QT: 467 QTc: 448 Interpretive Statements SINUS BRADYCARDIA WITH FIRST DEGREE AV BLOCK INCOMPLETE RIGHT BUNDLE BRANCH BLOCK SIMILAR TO 07/16/17 Electronically Signed On 03-04-2019 17:13:32 EDT by Aly Carolina
--- NOTE | 2019-03-04 17:55 | ROOPDOC ---
[facility] Report Of Operation Report of Operation DATE OF PROCEDURE: 03/04/19 PREPROCEDURE DIAGNOSES: ESRD on HD, Thrombosis RUE Radial-cephalic AV Fistula POSTPROCEDURE DIAGNOSES: Same. PROCEDURE: 1. US guided access left internal jugular vein 2. Placement of 27cm tunneled permcath SURGEON: Priyanka Ybarra MD ANESTHESIA: MAC and local INDICATION FOR PROCEDURE: Mr Richard is a very pleasant 48yo gentleman with ESRD on dialysis who was not able to dialyze today due to thrombosis of his right claudia fistula. He will likely need a formal revision due to aneurysmal degeneration of the vein in the forearm, skin erosions in areas of frequent access, and limited outflow due to small basilic vein and occluded cephalic vein in the upper arm with visible collaterals in the arm and shoulder. Will obtain a vein mapping and decide on options. For now, we discussed the risks, benefits, and alternatives to permcath placement and the patient is agreeable to proceed. Informed consent was obtained. The patient has had innumerate catheters and we will check both jugular veins for patency in the OR with US before deciding on left versus right. INTERPRETATION: The permcath is in good position with no kinks in the catheter and the tips are freely mobile at the atrial-caval junction. No pneumothorax is noted. PROCEDURE: The patient was brought to the OR in stable condition and was placed supine on the OR table. Care was taken in positioning due to morbid obesity. Ultrasound was used to examine both jugular veins. I could not appreciate patency of the right jugular vein, but the left jugular vein was patent. Monitored anesthesia care and antibiotics were administered without complication. The left neck and chest were prepped and draped in a sterile fashion. A time out was performed. Local anesthesia was administered to the skin and subcutaneous tissue over the left neck and upper chest. A microneedle was used to access the left jugular vein under ultrasound guidance. A wire was placed through this access and a microsheath was placed. A small incision was made at the jugular access site and at the left chest just below the clavicle. A stiff glidewire was advanced into the central system under fluoroscopic guidance. This was challenging, and it too k some time to navigate the wire into the SVC. We then performed two serial dilations over the wire and a peelaway sheath was placed. We then tunneled a 23cm permcath from the left chest to the jugular access site and advanced it into the central system through the sheath over the wire. Due to the girth of the patient, it did not extend to the SVC despite all attempts. We therefore removed it and selected a 27cm permcath and exchanged the sheath for the new catheter sheath (the catheters were different brands and also different sizes, so the same sheath could not be used) over the wire, and the new sheath did not have a diaphragm to prevent bleeding, so we worked quickly to advance the new catheter through the tunnel and place it through the sheath over the wire. We did have about 40cc of blood loss during that process, and total of about 50cc of blood loss, but we were able to do this without losing our wire access. The catheter was difficult to advance into the SVC despite placing it over the wire to help guide it, but eventually we were able to navigate the tips into the SVC. The wire and peel away sheath were carefully removed. Imaging confirmed good placement and no pneumothorax, and both ports alfredo back and flushed easily and were heparin locked. We then closed the exit site on the chest with prolene suture, and secured the catheter to the chest wall with prolene suture. The Jugu lar access site was closed with subcuticular monocryl suture and dermabond. Sterile caps and dressings were applied. Although this was a challenging case, the patient tolerated the procedure well. It os ok to use the catheter for dialysis. He was transferred to dialysis in stable condition, and the catheter was working well. ESTIMATED BLOOD LOSS: Approximately 50 mL. COMPLICATIONS: None. PRIYANKA YBARRA MD March 04, 2019 17:55
--- NOTE | 2019-03-04 18:54 | CR.PDOC ---
General Date of Consultation: March 04, 2019 Consultation REASON FOR CONSULTATION/CHIEF COMPLAINT: Thrombosed RUE AVF. HISTORY OF PRESENT ILLNESS: Mr Richard is a very pleasant 48yo gentleman, morbidly obese, with ESRD on HD and he was unable to dialyze today due to thrombosis of his RUE claudia fistula. He will need dialysis today. Upon exam, he has a soft, aneurysmal RUE AVF with some skin ulceration in areas of frequent access, no thrill noted. I can doppler minimal flow. I reviewed his last fistulagram with Dr Rose from a few months ago, and he had an occluded cephalic vein just proximal to the antecubital crease at that time, with outflow through a smaller basilic vein and several small collateral veins. I do not feel I could likely push a large amount of thrombus out through the small basilic outflow without undo trauma. The central veins were not imaged at that time, and he has a lot of visible venous collaterals around the right shoulder and arm, and right arm swelling, so he may also have a more central outflow issue/occlusion as well. Taking that into consideration, and with the forearm fistula having significant anuerysmal degeneration and ulcerations, the best option may be for a permcath today and revision AV access after vein mapping. Risks benefits and alternatives to a permcath placement in the OR today was explained to the patient and he is agreeable to proceed. Informed consent obtained. He ate at 0500 today, and anesthesiologist would prefer to wait the full 8 hours before proceeding due to his obesity and comorbidities, and we are agreeable to their recommendation. Will proceed at 13:00 today. I discussed the plan with dialysis and Dr Hendrickson. ALLERGIES: Please see below. HOME MEDICATIONS: Please see medication reconciliation. PAST MEDICAL HISTORY: ESRD on HD, depression, spinal stenosis, pulmonary fibrosis, bronchitis, atrial fibrillation, neuropathy, constipation PAST SURGICAL HISTORY: Tracheostomy, RUE claudia AVF creation, fistulagram FAMILY HISTORY: heart disease, cancer SOCIAL HISTORY: Lives in care facility and requires complete care due to morbid obesity and respiratory limitations/tracheostomy REVIEW OF SYSTEMS: CONSTITUTIONAL: Denies fever of chills HEENT: +Tracheostomy. Denies vision loss or hearing loss. CARDIOVASCULAR: Denies CP. RESPIRATORY: +SOB. GENITOURINARY: +ESRD with AVF. MUSCULOSKELETAL: +back pain. +extremity pain. +neuropathy. GASTROINTESTINAL: Denies n/v/d. +constipation. SKIN: Denies rashes. NEUROLOGICAL: Denies GALLARDO or seizures. PSYCHIATRIC: +Depression. ENDOCRINE: Denies DM or thyroid disease. HEMATOLOGIC/LYMPHATIC: Denies bleeding or clotting disorder. ALLERGIC/IMMUNOLOGIC: Denies. PHYSICAL EXAMINATION: VITAL SIGNS: Please see below. GENERAL APPEARANCE: Morbidly obese, appears medically stable. HEENT: Tracheostomy. Vision grossly intact. Hearing intact. RESPIRATORY: Course BS bilat, diminished bibasilar, no wheezes. CARDIOVASCULAR: Irreg RR. ABDOMEN: Obese, soft, NT. EXTREMITIES: Distal perfusion intact. RUE has aneurysmal AVF, skin ulcerations, weakly dopplerable flow through AVF and +doppler signal at radial artery, ulnar artery and palmar arch. +collateral veins noted over RUE and shoulder, and RUE is significantly more swollen than the LUE. NEUROLOGICAL: A&Ox3, MAEE. PSYCHIATRIC: Pleasant and cooperative. Communicates by mouthing his words and nodding yes/no. LABORATORY DATA: Please see below. ASSESSMENT/PLAN: 1. NPO. To OR for permcath today, and to dialysis after. 2. Vein mapping BUE and plan for AVF revision or new access creation this week. Vital Signs/I&O Vital Signs Date Time Temp Pulse Resp B/P (MAP) Pulse Ox O2 Delivery O2 Flow Rate FiO2 03/04/19 12:32 97.3 03/04/19 12:31 60 20 96/57 (70) 93 Trach Collar 35 Laboratory Data Labs 24H Laboratory Tests 2 03/04/19 09:20: Immature Granulocyte % (Auto) 0.4, White Blood Count 10.2H, Red Blood Count 3.91L, Hemoglobin 13.2L, Hematocrit 43.4, Mean Corpuscular Volume 111.0H, Mean Corpuscular Hemoglobin 33.8H, Mean Corpuscular Hemoglobin Concent 30.4L, Red Cell Distribution Width 14.1, Platelet Count 121L, Neutrophils (%) (Auto) 55.1, Lymphocytes (%) (Auto) 31.7, Monocytes (%) (Auto) 6.8H, Eosinophils (%) (Auto) 5.3H, Basophils (%) (Auto) 0.7, Neutrophils # (Auto) 5.6, Lymphocytes # (Auto) 3.2, Monocytes # (Auto) 0.7, Eosinophils # (Auto) 0.5, Basophils # (Auto) 0.1, Nucleated Red Blood Cells % (auto) 0.0, Anion Gap 9, Glomerular Filtration Rate 7.3L, Calcium Level 8.6, Phosphorus Level 6.4H, Magnesium Level 2.2, Aspartate Amino Transf (AST/SGOT) 5L, Alanine Aminotransferase (ALT/SGPT) 42, Alkaline Phosphatase 78, Total Bilirubin 0.5, Direct Bilirubin 0.1, Total Protein 7.2, Albumin 3.5, Albumin/Globulin Ratio 0.95L 03/04/19 10:35: Prothrombin Time 13.7, Prothromb Time International Ratio 1.04, Activated Partial Thromboplast Time 30.8 CBC/BMP Laboratory Tests 03/04/19 09:20 Red Blood Count 3.91 L, Mean Corpuscular Volume 111.0 H, Mean Corpuscular Hemoglobin 33.8 H, Mean Corpuscular Hemoglobin Concent 30.4 L, Red Cell Distribution Width 14.1, Neutrophils (%) (Auto) 55.1, Lymphocytes (%) (Auto) 31.7, Monocytes (%) (Auto) 6.8 H, Eosinophils (%) (Auto) 5.3 H, Basophils (%) (Auto) 0.7, Neutrophils # (Auto) 5.6, Lymphocytes # (Auto) 3.2, Monocytes # (Auto) 0.7, Eosinophils # (Auto) 0.5, Basophils # (Auto) 0.1 Allergies Coded Allergies: moxifloxacin (Verified Allergy, Intermediate, RASH, 03/04/19) Home Medications Scheduled Amiodarone Hcl (Pacerone) 200 Mg Tab, 200 MG PO DAILY, (Reported) TAKES AT 1200 Amoxicillin (Amoxicillin) 500 Mg Capsule, 2,000 MG PO ASDIRECTED, (Reported) BEFORE DENTAL PROCEDURE Carvedilol (Coreg) 6.25 Mg Tab, 6.25 MG PO BID, (Reported) TAKES AT 1200 AND 2000 Cinacalcet HCl (Sensipar) 60 Mg Tab, 90 MG PO DAILY, (Reported) TAKES AT 1100 Docusate Sodium (Colace) 100 Mg Capsule, 200 MG PO DAILY, (Reported) TAKES AT 1100 Ergocalciferol (Vitamin D2) (Drisdol) 50,000 Unit Cap, 50,000 UNIT PO 1XWK, (Reported) MARI Escitalopram Oxalate (Escitalopram Oxalate) 10 Mg Tablet, 10 MG PO DAILY, (Reported) TAKES AT 1200 Ferric Citrate (Auryxia) 210 Mg Tablet, 630 MG PO WM, (Reported) TAKES AT 0600, 1200, AND 1700 ON , , AND WED (DIALYSIS DAYS) AND TAKES AT 0800, 1130, AND 1630 ON SUN, WED, WED, AND FRI Gabapentin (Neurontin) 300 Mg Cap, 300 MG PO TID, (Reported) TAKES AT 1200, 1600, 2000 Ipratropium/Albuterol Sulfate (Iprat-Albut 0.5-3(2.5) mg/3 ml) 1 Maria G Maria G, 1 MARIA G INH BID, (Reported) TAKES AT 0500 AND 1700 ON , , AND WED (DIALYSIS DAYS) AND TAKES AT 0800 AND 2000 ON SUN, WED, WED, AND FRI Oxycodone HCl (Oxycodone HCl) 5 Mg Tablet, 10 MG PO 3XW, (Reported) TAKES AT 0500 ON , , SAT BEFORE DIALYSIS Oxycodone HCl/Acetaminophen (Oxycodone-Acetaminophen 5-325) 1 Each Tablet, 2 TAB PO 3XW, (Reported) TAKES AT 0500 ON , TH, SAT BEFORE DIALYSIS Pramipexole Di-HCl (Mirapex) 0.125 Mg Tab, 0.125 MG PO QHS, (Reported) Sennosides/Docusate Sodium (Senna-S Tablet) 1 Tab Tab, 2 TAB PO QHS, (Reported) Sevelamer Carbonate (Renvela) 800 Mg Tab, 4,800 MG PO WM, (Reported) TAKES AT 0800, 1200, AND 1700 ON NON-DIALYSIS DAYS. TAKES AT 0500, 1200, AND 1700 Vit B Comp No.3/Folic/C/Biotin (Nephro-Shante Rx Tablet) 1 Tab Tab, 1 TAB PO DAILY, (Reported) TAKES AT 1200 Scheduled PRN Acetaminophen (Acetaminophen) 325 Mg Tab, 650 MG PO Q4H PRN for PAIN / FEVER, ( Reported) Albuterol Sulf (Albuterol Sulfate) 2.5 Mg/3 Ml Nebu, 2.5 MG INH Q2H PRN for COPD, (Reported) Albuterol Sulfate (Proventil Hfa) 6.7 Gm Hfa.aer.ad, 2 PUFF INH Q4H PRN for SOB/WHEEZING, (Reported) Alprazolam (Xanax) 1 Mg Tab, 1 MG PO Q8H PRN for ANXIETY, (Reported) Bisacodyl (Dulcolax) 10 Mg Supp.rect, [address] DAILY PRN for CONSTIPATION, (Reported) Guaifenesin/Dextromethorphan (Guaifenesin Dm Syrup) 5 Ml Syrup, 10 ML PO Q4H PRN for COUGH, (Reported) Mineral Oil/Petrolatum,White (Refresh Lacri-Lube Ointment) 3.5 Gm Oint...g., 1 DOSE OU BID PRN for DRY EYES, (Reported) Oxycodone HCl/Acetaminophen (Percocet 5-325 mg Tablet) 1 Tab Tab, 1 TAB PO Q6H PRN for PAIN, (Reported) Phenyleph/Shark Oil/Mo/Petrol (Preparation H Ointment) 28 Gm Oint.appl, [address] BID PRN for HEMORRHOIDS, (Reported) Sodium Phosphate,Ellis-Dibasic (Enema) 133 Ml Enema, [address] DAILY PRN for CONSTIPATION, (Reported) PRIYANKA CUMMINS MD March 04, 2019 18:54
[2019-03-04 19:10] VITALS: BP 62/50
[2019-03-04] MEDS ORDERED: NS 500 ML IV ONE (19:30)
[2019-03-04] MEDS: IPRATROPIUM 0.5MG/ALBUTEROL 2.5MG INH SOL UD 3ML (DUONEB)(J7620) INH SCH (19:44)
[2019-03-04 20:00] VITALS: BP 56/38
[2019-03-04] MEDS ORDERED: NS 1,000 ML IV ONE (20:45)
--- NOTE | 2019-03-04 20:53 | PHACANCOPD ---
PHARMACY VANCOMYCIN DOSING Pt Demographics Demographics Patient Age:48 , Weight:196.360 , Gender: male Adjusted Body Weight Date: 03/04/19, Adjusted Body Weight: Kg Events Past 24 Hours Events Past 24 Hours: NO: Dialysis, Diuretic Therapy, Change in CrCl, Fever, Elevation in WBC, Pending Diagnostics, Pending Procedures, Other Vancomycin Vancomycin Target Ranges: 10-20 mcg/ml Vancomycin Load Y/N: Yes Load Dose Date Time Vancomycin Load Dose: 2000mg Date: 03-04 Time: 2200 Vancomycin Dose Date: 03/04/19. Current Vancomycin Dose: Intermittent Dosing?: Yes Labs Labs Item Value Date Time White Blood Count 10.2 10^3/uL H 03/04/19919 Glomerular Filtration Rate 7.3 L 03/04/19919 Creatinine 8.46 MG/DL *H 03/04/19919 Blood Urea Nitrogen 50 MG/DL H 03/04/19919 Vital Signs Label Value Date Time Patient Temperature 97.2 degrees F 03/04/191909 Temperature Source Temporal 03/04/191909 Creatinine Clearance Date:03/04/19. Creatinine Clearance: [hd]. Pending Labs Random 05-12 @am Assessment and Plan Maintaining Current Dose?: Yes Reason for dose change: No Dose Change Pharmacist Note Pharmacist Note Date: 03/04/19. Pharmacist note:2000mg load followed by dosing per levels. First random -12 in am. Will monitor and dose as needed. EARNESTINE MEEKS [facility] March 04, 2019 20:53
[2019-03-04] MEDS ORDERED: VANCOMYCIN HCL 1,000 MG, VIAL MATE ADAPTER 1 EACH in D5W 250 ML IV ONE ×2 (21:30→23:00)
[2019-03-04 22:00] VITALS: BP_SYST 82; BP_SYST 84; BP_DIAS 44
[2019-03-04] MEDS: PRAMIPEXOLE (MIRAPEX) 0.125 MG TAB PO SCH (22:27)
[2019-03-04] MEDS: SENOKOT S TAB PO SCH (22:27)
[2019-03-04] MEDS: ACETAMINOPHEN TAB 650MG DOSE (2X325MG) PO PRN (23:22)
[2019-03-05] VITALS (8 sets, daily range): BP systolic 82–122; BP diastolic 42–68
[2019-03-05 06:34] LABS: HEMATOCRIT 45.2 % (42.0-52.0); HEMOGLOBIN 13.3 g/dl (13.5-17.5); MEAN CORPUSCULAR HEMOGLOBIN 33.2 pg (27.0-33.0); MEAN CORPUSCULAR HGB CONC 29.4 g/dl (32.0-36.5); MEAN CORPUSCULAR VOLUME 112.7 fl (80.0-96.0); PLATELET COUNT, AUTOMATED 101 10^3/uL (150-450); RED BLOOD COUNT 4.01 10^6/uL (4.30-6.10)
[2019-03-05 07:04] LABS: CALCIUM LEVEL 8.6 MG/DL (8.5-10.1); CREATININE FOR GFR 6.63 MG/DL (0.70-1.30); GLOMERULAR FILTRATION RATE 9.7 (>60); POTASSIUM SERUM 5.4 MEQ/L (3.5-5.1); VANCOMYCIN RANDOM 2.2 UG/ML
[2019-03-05] MEDS: IPRATROPIUM 0.5MG/ALBUTEROL 2.5MG INH SOL UD 3ML (DUONEB)(J7620) INH SCH ×2 (08:00→19:23)
[2019-03-05] MEDS: GABAPENTIN 300 MG CAP PO SCH ×3 (09:34→21:22)
[2019-03-05] MEDS: ESCITALOPRAM OXALATE 10 MG TAB (LEXAPRO) PO SCH (09:34)
[2019-03-05] MEDS: CINACALCET 30 MG TAB (SENSIPAR) PO SCH (09:34)
[2019-03-05] MEDS: NEPHRO-VIT TAB (NEPHROCAPS) PO SCH (09:34)
[2019-03-05] MEDS: DOCUSATE SODIUM 100 MG CAP PO SCH (09:34)
[2019-03-05] MEDS: AMIODARONE 200 MG TAB (PACERONE) PO SCH (09:38)
[2019-03-05] MEDS: CARVedilol 6.25 MG TAB PO SCH ×2 (09:38→21:00)
[2019-03-05] MEDS ORDERED: VANCOMYCIN HCL 1,000 MG, VIAL MATE ADAPTER 1 EACH in D5W 250 ML IV ONE (13:00)
--- NOTE | 2019-03-05 13:53 | IPN ---
DATE: 03/05/2019 Mr. Richard is seen this morning on his bedside. He was admitted yesterday due to nonfunctioning right arm AV fistula and need for dialysis. He was dialyzed yesterday via a new PermaCath placement in his left upper chest. Dr. Ybarra evaluated him and did not feel that his AV fistula can be easily declotted. She felt that the patient will need surgical revision of his AV fistula and felt that at this point a temporary PermaCath is a suitable option. He did have a catheter placed and was dialyzed late afternoon yesterday. After dialysis his blood pressure was noticed to be quite low. He required some fluid boluses and blood pressure improved. He did not feel physically that his blood pressure was low. He was afebrile. However, because of multiple needle placements in his fistula and manipulation of clotted AV fistula I was concerned about possibility of sepsis. We did draw blood cultures and gave him a dose of vancomycin 1 gram last evening. PHYSICAL EXAMINATION: This morning temperature is 97.1 degrees Fahrenheit, heart rate 64 per minute and respiratory rate 16 per minute. He has a trache collar in place. His heart sounds are regular and lungs have diminished breath sounds due to morbid obesity. Abdomen is morbidly obese and nontender. Bowel sounds are present. Extremities have no cyanosis or clubbing. His right forearm AV fistula has a large aneurysmal dilatation distally however, proximally it is thrombosed. I removed the dressing from yesterday's needle placement attempts and there was no bleeding or drainage. Neurologically, he remains at his baseline mentation. Today's labs show WBC count 8.0, hemoglobin 13.3, hematocrit 45.2. Sodium 134, potassium 5.4 on a hemolyzed specimen, CO2 27, BUN 31 and creatinine 6.63. Glucose 105 and calcium 8.6. A random vancomycin level is 2.2. PROBLEMS: 1. End-stage renal disease. The patient was dialyzed yesterday via a temporary PermaCath. His next dialysis will be scheduled for March 07. 2. Nonfunctioning right arm AV fistula. The patient will require surgical intervention for his revision of AV fistula. Dr. Ybarra is aware and I will discuss with Dr. Rose tomorrow about plans for surgery. In the meantime, we will give him further dose of vancomycin 1 gram today due to possible infection in his AV fistula site, though he is afebrile. Blood cultures are still pending. 3. Hypotension. He did have low blood pressure after dialysis though he was asymptomatic. He received about 1500 mL of normal saline and blood pressure improved. I had also given him a dose of vancomycin 1 gram due to possible bacteremia related with manipulation and needle placements in his AV fistula. He also had a new PermaCath placed yesterday. 4. Hyperkalemia. This is on a hemolyzed specimen. I do not feel that this is severe hyperkalemia. His potassium level was 5.0 yesterday and he was dialyzed with 2.0 mEq potassium bath. I will not repeat his potassium level today and was repeat it tomorrow. 5. Chronic respiratory failure, status post tracheostomy. The patient remains on trache collar which is about baseline. 6. Obstructive sleep apnea. The patient has been on CPAP at night which should be continued at his out of hospital settings.
[2019-03-05] MEDS: HEPARIN SOD (PORCINE) 5000 UNITS/ML VIAL SQ SCH ×2 (14:00→21:22)
--- NOTE | 2019-03-05 14:34 | IPNPDOC ---
Date Seen The patient was seen on 03/05/19. Progress Note Patient seen and examined. Tolerated dialysis with RIJ permcath, but had a bit of hypotension in dialysis postop. This may have been due to anesthesia, or there may be concern for possible infection RUE. His WBC is normal, and he is AF, but I agree with a dose of vancomycin until infection ruled out. Hgb 13 pre and postop. Vein mapping BUE ordered yesterday- hopefully will be done soon. I would like to see if RUE subclavian vein is patent since prox cephalic is occluded and RIJ is occluded. An occlusion would explain fistula failure, collateral veins around the upper arm and shoulder, and swelling of the RUE. If it is patent, we may be able to proximalize his access to the basilic vein which was patent on fistulagram a few months ago. If not, will plan LUE access. Further recommendat ions to follow once imaging complete. VS, I&O, 24H, Fishbone Vital Signs/I&O Vital Signs Date Time Temp Pulse Resp B/P (MAP) Pulse Ox O2 Delivery O2 Flow Rate FiO2 03/05/19 12:00 71 115/68 (84) 03/05/19 09:00 8.0 35 03/05/19 06:00 97.1 16 100 03/04/19 12:31 Trach Collar I&O- Last 24 Hours up to 6 AM 03/05/19 09:00 Intake Total 1160 ml Output Total 3550 ml Balance -2390 ml Laboratory Data 24H LABS Laboratory Tests 2 03/05/19 05:55: Nucleated Red Blood Cells % (auto) 0.0, Anion Gap 8, Glomerular Filtration Rate 9.7L, Blood Urea Nitrogen 31H, Creatinine 6.63H, Sodium Level 134L, Potassium Level 5.4H, Chloride Level 99, Carbon Dioxide Level 27, Calcium Level 8.6, Random Vancomycin Level 2.2 CBC/BMP Laboratory Tests 03/05/19 05:55 Red Blood Count 4.01 L, Mean Corpuscular Volume 112.7 H, Mean Corpuscular Hemoglobin 33.2 H, Mean Corpuscular Hemoglobin Concent 29.4 L, Red Cell Distribution Width 13.9, Calcium Level 8.6 Microbiology Microbiology 03/04/19 Blood Culture, Received Pending PRIYANKA CUMMINS MD March 05, 2019 14:34
--- NOTE | 2019-03-05 16:18 | IPNPDOC ---
Subjective Date Seen The patient was seen on 03/05/19. Subjective Chief Complaint/HPI no pain and no trouble breathing Constitutional: Denies: Chills ENT: Denies: Head Aches Pulmonary: Denies: Dyspnea, Cough, Pleuritic Chest Pain Cardiovascular: Denies: Chest Pain, Palpitations Gastrointestinal: Denies: Nausea, Vomiting, Abdominal Pain Hematologic: Denies: Bruising Musculoskeletal: Denies: Neck Pain Neurological: Denies: Weakness Psych: Reports: Mood Normal Objective Physical Examination General Exam: Positive: Alert Eye Exam: Positive: PERRLA Neck Exam: Positive: Other (trach in place with mask) Chest Exam: Positive: Clear to auscultation; Negative: Rales Heart Exam: Positive: Rate Normal; Negative: Murmurs Abdomen Exam: Positive: Normal bowel sounds, Soft; Negative: Tenderness Skin Exam: Positive: Other skin issue (1 month old injury to right finger, (patient reports getting it caught in WC) fibrinous exudate on radial side near DIP crease, approx 5x7mm, most of the fibrinous debris removed with forceps and curette painlessly, no bleeding. before procedure, wound bed was disinfected with betadine. subequently recleaned with betadine and DSG applied.) Psych Exam: Positive: Mental status NL A-FIB/CHADSVASC A-FIB History Current/History of A-Fib/PAF?: Yes Current Oral Anticoagulant The: No Treatment Treatment ordered: NONE Reason Anticoagulant not given: Other (history of perinephric hematoma on prophylactic warfarin therapy. Currently in sinus riley.) Assessment /Plan Problems (1) Thrombosis of arteriovenous fistula Status: Acute Response to Treatment: Stable Problem Specific Plan: Consult Specialist Problem Text: left sided permacath placed. will need revision of shunt. (2) Pickwickian syndrome Status: Chronic Response to Treatment: Stable Problem Text: uses bipap when sleeping (3) ESRD (end stage renal disease) on dialysis Status: Chronic Response to Treatment: Stable Problem Specific Plan: Consult Specialist Problem Text: on dialysis. his right arm shunt thrombosed so new access created by Dr. Ybarra yesterday. after dialysis, his BP was low but HR normal, sats unchanged, no change in mental status, no fever. pressure improved with NS. vancomycin ordered b Dr. Curtis due to appropriate concern about possible shunt infection. cultures ordered. (4) Obesity Status: Chronic Response to Treatment: Stable Problem Text: previous efforts to engage patient cooperation in weight loss was unsuccessful. he refused to allow calorie restriction to help with his weight. (5) Tracheostomy present Status: Chronic Response to Treatment: Stable (6) Finger wound, simple, open Status: Chronic Response to Treatment: Stable Problem Text: debridement of fibrinous exudate performed, see under "objective" above. will likely need to be repeated in a week. consider wound specialty consult. Plan/VTE VTE Prophylaxis Ordered?: Yes Plan Anticipated Discharge: [facility] VS, I&O, 24H, Fishbone Vital Signs/I&O Vital Signs Date Time Temp Pulse Resp B/P (MAP) Pulse Ox O2 Delivery O2 Flow Rate FiO2 03/05/19 12:00 71 115/68 (84) 03/05/19 09:00 8.0 35 03/05/19 06:00 97.1 16 100 03/04/19 12:31 Trach Collar I&O- Last 24 Hours up to 6 AM 03/05/19 06:00 Intake Total 800 ml Output Total 3550 ml Balance -2750 ml Laboratory Data 24H LABS Laboratory Tests 2 03/05/19 05:55: Nucleated Red Blood Cells % (auto) 0.0, Anion Gap 8, Glomerular Filtration Rate 9.7L, Blood Urea Nitrogen 31H, Creatinine 6.63H, Sodium Level 134L, Potassium Level 5.4H, Chloride Level 99, Carbon Dioxide Level 27, Calcium Level 8.6, Random Vancomycin Level 2.2 CBC/BMP Laboratory Tests 03/05/19 05:55 Red Blood Count 4.01 L, Mean Corpuscular Volume 112.7 H, Mean Corpuscular Hemoglobin 33.2 H, Mean Corpuscular Hemoglobin Concent 29.4 L, Red Cell Distribution Width 13.9, Calcium Level 8.6 Microbiology Microbiology 03/04/19 Blood Culture, Received Pending Uriah Wilburn MD March 05, 2019 13:04
[2019-03-05] MEDS: (RENVELA) SEVELAMER **CARBONate** 800 MG TAB PO SCH (18:00)
[2019-03-05] MEDS: SENOKOT S TAB PO SCH (21:22)
[2019-03-05] MEDS: PRAMIPEXOLE (MIRAPEX) 0.125 MG TAB PO SCH (21:22)
[2019-03-06] MEDS: ALBUTEROL SULFATE 2.5 MG/0.5 ML INH NEB SOLN INH PRN ×4 (00:43→23:33)
[2019-03-06 02:00] VITALS: BP 94/51
[2019-03-06 06:00] VITALS: BP 117/59
[2019-03-06] MEDS: HEPARIN SOD (PORCINE) 5000 UNITS/ML VIAL SQ SCH ×3 (06:00→22:33)
[2019-03-06] MEDS: IPRATROPIUM 0.5MG/ALBUTEROL 2.5MG INH SOL UD 3ML (DUONEB)(J7620) INH SCH ×2 (06:02→19:50)
[2019-03-06 06:24] LABS: HEMATOCRIT 42.2 % (42.0-52.0); HEMOGLOBIN 12.8 g/dl (13.5-17.5); MEAN CORPUSCULAR HEMOGLOBIN 33.5 pg (27.0-33.0); MEAN CORPUSCULAR HGB CONC 30.3 g/dl (32.0-36.5); MEAN CORPUSCULAR VOLUME 110.5 fl (80.0-96.0); PLATELET COUNT, AUTOMATED 100 10^3/uL (150-450); RED BLOOD COUNT 3.82 10^6/uL (4.30-6.10); WHITE BLOOD COUNT 6.6 10^3/uL (4.0-10.0)
[2019-03-06 09:10] LABS: ALBUMIN 3.2 GM/DL (3.2-5.2); CALCIUM LEVEL 8.1 MG/DL (8.5-10.1); CREATININE FOR GFR 8.24 MG/DL (0.70-1.30); GLOMERULAR FILTRATION RATE 7.5 (>60); PHOSPHORUS LEVEL 7.9 MG/DL (2.5-4.9); POTASSIUM SERUM 5.4 MEQ/L (3.5-5.1)
[2019-03-06 10:00] VITALS: BP 103/52
[2019-03-06] MEDS: NEPHRO-VIT TAB (NEPHROCAPS) PO SCH (10:48)
[2019-03-06] MEDS: CINACALCET 30 MG TAB (SENSIPAR) PO SCH (10:49)
[2019-03-06] MEDS: GABAPENTIN 300 MG CAP PO SCH ×3 (10:49→22:11)
[2019-03-06] MEDS: DOCUSATE SODIUM 100 MG CAP PO SCH (10:49)
[2019-03-06] MEDS: ESCITALOPRAM OXALATE 10 MG TAB (LEXAPRO) PO SCH (10:50)
[2019-03-06] MEDS: (RENVELA) SEVELAMER **CARBONate** 800 MG TAB PO SCH ×3 (10:50→17:27)
[2019-03-06] MEDS: CARVedilol 6.25 MG TAB PO SCH ×2 (10:50→21:00)
[2019-03-06] MEDS: AMIODARONE 200 MG TAB (PACERONE) PO SCH (10:50)
--- NOTE | 2019-03-06 11:46 | REP ---
Bilateral upper extremity Doppler arterial and venous ultrasound: History: Vein mapping study for dialysis access planning. Findings: There is a thrombosed arterial venous fistula at the left wrist. A patent arteriovenous fistula is seen at the right wrist although its venous outflow limb is clotted at mid forearm in the distal cephalic vein. At the mid forearm on the right, there is a arteriovenous connection to the cephalic vein which is patent. The left subclavian vein could not be seen due to a central line dressing. No other evidence of venous thrombosis. Right upper extremity vein diameter chart: Upper humerus basilic 7.5 mm, cephalic 5.5 mm Lower humerus basilic 4.9 mm, cephalic 6.9 mm Upper forearm basilic 5.0 mm, cephalic 2.7 mm Lower forearm basilic 3.6 mm, cephalic 3.5 mm Median cubital 4.3 mm Left upper extremity vein diameter chart: Upper humerus basilic 5.7 mm, cephalic 2.6 mm Lower humerus basilic 4.0 mm, cephalic 1.9 mm Upper forearm basilic 2.2 mm, cephalic thrombosed Lower forearm basilic 1.0 mm, cephalic thrombosed Median cubital 1.4 mm Right upper extremity arterial Doppler velocity and diameter chart: Axillary artery PSV 239 cm/S, 6.6 mm Brachial artery 160 cm/S, 6.1 mm Radial artery 100 cm/S, 6.7 mm Ulnar artery 84.9 cm/S, 5.7 mm Left upper extremity arterial Doppler velocity and diameter chart: Axillary artery PSV 139 cm/S, 5.8 mm Brachial artery 106 cm/S, 5.1 mm Radial artery 28.5 cm/S, 3.9 mm Ulnar artery 37 cm/S, 3.4 mm Electronically Signed by Elvis Vo MD 03/06/2019 11:37 A
--- NOTE | 2019-03-06 12:29 | IPNPDOC ---
Text Note Date of Service The patient was seen on 03/06/19. NOTE Nephrology Service: Subjective: Patient seen and examined at bedside lying down in bed. Difficult to comprehend his speech. However, had no acute complaints that were made aware to me. Just had come back from ultrasound of the upper extremities bilaterally. No fevers, chest pain, SOB more than usual. No complaints of abdominal pain, nausea, vomiting, or diarrhea. Does have intermittent cough productive of yellow thick moderate amount of sputum. Patient is eventually to go to IR for repair of his RUE AV fistula revision as per Vascular Surgery Team determination. Had a new permacatch placed on 03/04. Last hemodialysis was 03/04 with 3500 mL removed. Objective: Vitals: T 98.3 P 69 RR 18 BP 103/52 Pulse Ox: 90% on 8.0 L/min at 35% FiO2 via Trach Collar Intake: 1330 ml Output: 0 ml Balance: (+) 1330 ml GENERAL APPEARANCE: Pleasant and cooperative morbidly obese nonverbal adult male lying in bed in NAD. Awake, alert, oriented x 3. HEENT: NCAT. Sclera nonicteric. NECK: Supple. No JVD able to be appreciated. RESPIRATORY: Clear to Auscultation bilaterally but diminished bilaterally. No wheezes/rales/rhonchi. CARDIOVASCULAR: Distant heart sounds. Normal S1S2, RRR, no murmurs appreciated. ABDOMEN: Soft, morbidly obese, nontender, nondistended. EXTREMITIES: (+)Trace pitting edema bilateral lower extremities. No clubbing/cyanosis. INTEGUMENTARY: Warm and dry skin. No rashes or lesions noted. NEUROLOGICAL: No focal neurologic deficits appreciated on inspection. PSYCHIATRIC: Appropriate mood and affect. No signs of overt depression/anxiety. Laboratory data: CBC: WBC 6.6, Hgb 12.8, Platelets 100 BMP: Na 136, K 5.4, CO2 29, BUN 47, Cr 8.24, Glucose 102, Ca 8.1, Phosphorus 7.9, Albumin 3.2, Vitamin B12 732 Imaging: No new imaging today. Current Inpatient Medications: Nephro-Shante Rx (Vitamin B Complex/Vitamin C/Folic Acid) 1 tab PO daily Sensipar (Cinacalcet) 90 mg PO daily Carvedilol 6.25 mg PO BID Amiodarone 200 mg PO daily Oxycodone 10 mg PO PRN pain as directed Percocet 5/325 mg PO q6h PRN pain Gabapentin 300 mg PO TID Pramipexole Dihydrochloride (Mirapex) 0.125 mg PO QHS Sevelamer Carbonate (Renvela) 4900 WM PO Drisdol 64450 units PO Fridays No medication changes noted today. Assessment/Plan: 1. End-stage renal disease: Last HD on 03/04 via temporary permacath with 3500 mL removed. Next dialysis is March 07. 2. Nonfunctioning right arm AV fistula: This requires surgical intervention for AV fistula repair in [facility] by Vascular Surgery. Date and time of revision to be determined by Vascular Surgery. Dr. Curtis was planning to speak with Dr. Rose regarding the plans for surgery. Patient afebrile. Blood cx show to be negative x 24 hours. No current signs of infection. Status-post of 1 gram Vancomycin yesterday to cover for possible infection risk at AV fistula site. Will continue to monitor. 3. Hypotension: Improved after given IV fluids. BP acceptable at this time at 117/59. Continue with current antihypertensive regimen. Continue to monitor for hypotension. 4. Hyperkalemia: Still hyperkalemic at 5.4 today. Not severe hyperkalemia. Will monitor for any signs/symptoms of hyperkalemia such as muscle aches/pains, chest pain, arrhythmias. Continue to monitor. 5. Chronic respiratory failure status-post tracheostomy: on a trach collar at 8L/min with FiO2 35%. Satting 90%. This is baseline. Will monitor for any development of acute decompensation. Keep patient on continuous pulse oximeter. 6. Obstructive sleep apnea: Continue CPAP at night continued at his out of hospital settings. Patient is a Full Code. My preceptor for this patient encounter was Dr. Narendra Curtis, and was physically present in the building during the encounter and was fully available. As needed, all aspects of the patient interview, examination, medical decision making process, and medical care plan development were reviewed and approved by the preceptor. Preceptor is aware and concurs with the plan as stated in the body of this note and will attest to such by his/her cosignature. A-FIB/CHADSVASC A-FIB History Current/History of A-Fib/PAF?: Yes Current Oral Anticoagulant The: No (history of developing perinephric hematoma) VS,Fishbone, I+O VS, Fishbone, I+O Laboratory Tests 03/06/19 05:59 Red Blood Count 3.82 L, Mean Corpuscular Volume 110.5 H, Mean Corpuscular Hemoglobin 33.5 H, Mean Corpuscular Hemoglobin Concent 30.3 L, Red Cell Distribution Width 13.9, Anion Gap 7 L Vital Signs Date Time Temp Pulse Resp B/P (MAP) Pulse Ox O2 Delivery O2 Flow Rate FiO2 03/06/19 10:50 68 117/59 03/06/19 09:30 8.0 35 03/06/19 06:00 98.0 18 95 03/04/19 12:31 Trach Collar I&O- Last 24 Hours up to 6 AM 03/06/19 06:00 Intake Total 1460 ml Output Total 0 ml Balance 1460 ml TOYA SELLERS DO March 06, 2019 11:36
--- NOTE | 2019-03-06 12:41 | IPNPDOC ---
Subjective Date Seen The patient was seen on 03/06/19. Subjective Chief Complaint/HPI Matthew's only complaint today is some pain along his left neck/upper chest near where his central line is in place. It does not sound as if this is significant. He had a venous mapping study done today. General: Reports: Normal Appetite Constitutional: Denies: Chills, Fever Musculoskeletal: Reports: Neck Pain Psych: Reports: Mood Normal Objective Physical Examination General Exam: Positive: Alert, Cooperative (sitting up in his bed watching movies when I entered his room), No Acute Distress Eye Exam: Positive: Conjunctiva & lids normal, Sclera icteric ENT Exam: Positive: Mucous membr. moist/pink Neck Exam: Positive: Other (trach in place with mask) Chest Exam: Positive: Clear to auscultation; Negative: Rales Heart Exam: Positive: Rate Normal; Negative: Murmurs Abdomen Exam: Positive: Normal bowel sounds, Soft; Negative: Tenderness Skin Exam: Positive: Other skin issue (I reexamined the area on his finger that was debrided yesterday. It seems to be healing well, with very little reformation of the fibrinous exudate.) Psych Exam: Positive: Mental status NL A-FIB/CHADSVASC A-FIB History Current/History of A-Fib/PAF?: Yes Current Oral Anticoagulant The: No Age/Risk Factor Scoring CHADSVASC: CHADSVASC Response (Comments) Value Age Risk Factor Age < 65 years old 0 Gender Risk Factor Male 0 Hx of CHF No 0 Hx of HTN No 0 Hx of Stroke/TIA/or VTE No 0 Hx of Diabetes No 0 Hx of Vascular Disease Yes 1 Total 1 Treatment Reason Anticoagulant not given: Recent/upcomin procedure Assessment /Plan Problems (1) Thrombosis of arteriovenous fistula Status: Acute Response to Treatment: Stable Problem Specific Plan: Consult Specialist Problem Text: Left sided permacath placed. Will need revision of shunt. A v enous mapping study was performed today to help guide the surgeons in determining where to put this shunt. (2) Pickwickian syndrome Status: Chronic Response to Treatment: Stable Problem Text: Uses Bipap when sleeping. His super morbid obesity effects many areas of his health including this area. (3) ESRD (end stage renal disease) on dialysis Status: Chronic Response to Treatment: Stable Problem Specific Plan: Consult Specialist Problem Text: On dialysis. His next session is due tomorrow. One dose of vancomycin has been ordered by Dr. Curtis due to concern about possible shunt infection. Cultures ordered. (4) Obesity Status: Chronic Response to Treatment: Stable Problem Text: As noted above his morbid obesity negatively affects almost every area of his health. Previous efforts to engage patient cooperation in weight loss was unsuccessful. He refused to allow calorie restriction to help with his weight. (5) Finger wound, simple, open Status: Chronic Response to Treatment: Stable Problem Text: I reexamined his finger and feel it's healing well. I did ask nursing to re-bandage it using a Telfa dressing so it will not stick on the wound. (6) Tracheostomy present Status: Chronic Response to Treatment: Stable Plan/VTE VTE Prophylaxis Ordered?: Yes (subcutaneous heparin) Plan Anticipated Discharge: Care Home VS, I&O, 24H, Fishbone Vital Signs/I&O Vital Signs Date Time Temp Pulse Resp B/P (MAP) Pulse Ox O2 Delivery O2 Flow Rate FiO2 03/06/19 10:50 68 117/59 03/06/19 10:00 98.3 18 90 03/06/19 09:30 8.0 35 03/04/19 12:31 Trach Collar I&O- Last 24 Hours up to 6 AM 03/06/19 06:00 Intake Total 1460 ml Output Total 0 ml Balance 1460 ml Laboratory Data 24H LABS Laboratory Tests 2 03/06/19 05:59: Nucleated Red Blood Cells % (auto) 0.0, Blood Urea Nitrogen 47#H, Creatinine 8.24*H, Sodium Level 136, Potassium Level 5.4H, Chloride Level 100, Carbon Dioxide Level 29, Anion Gap 7L, Glomerular Filtration Rate 7.5L, Calcium Level 8.1L, Phosphorus Level 7.9#H, Albumin 3.2, Vitamin B12 Level 732 CBC/BMP Laboratory Tests 03/06/19 05:59 Red Blood Count 3.82 L, Mean Corpuscular Volume 110.5 H, Mean Corpuscular Hemoglobin 33.5 H, Mean Corpuscular Hemoglobin Concent 30.3 L, Red Cell Distribution Width 13.9, Anion Gap 7 L Microbiology Microbiology 03/04/19 Blood Culture - Preliminary, Resulted No growth after 24 hours . All specim... Devendra Hadley MD March 06, 2019 12:41 pm
[2019-03-06 14:00] VITALS: BP 104/57
[2019-03-06 18:00] VITALS: BP 113/77
--- NOTE | 2019-03-06 21:48 | CR ---
DATE OF CONSULTATION: 03/04/2019 REASON FOR CONSULTATION: Is to assist in the management of end-stage renal disease and a clotted arteriovenous (AV) fistula. HISTORY OF PRESENT ILLNESS: Mr. Richard is a morbidly obese gentleman from [facility] with multiple comorbid conditions. He came for his regular dialysis treatment on Wednesday morning and was noticed to have a thrombosed AV fistula. Multiple attempts were made by nursing staff. However, his fistula did not function. He does have history of recurrent hyperkalemia and already has respiratory failure due to which he was sent to the emergency room for urgent intervention. He was seen by vascular surgery and Dr. Gomez did not feel that his fistula can be easily declotted. She felt that the patient will need a revision of his AV fistula which has to be done in operating room as an elective procedure. She felt that a PermaCath will be a quick solution for his problems and he can be dialyzed. The patient was admitted and plan was to get a PermaCath placed and then dialysis. PAST MEDICAL AND SURGICAL HISTORY: The patient has multiple comorbid conditions includin. A history of super morbid obesity. 2. Obstructive sleep apnea. 3. Respiratory failure requiring tracheostomy. 4. End-stage renal disease requiring maintenance hemodialysis on Wednesday, and Wednesday schedule. 5. A history of secondary hyperparathyroidism. 6. A history of chronic noncompliance with dietary and fluid restriction. 7. A history of chronic anxiety and depression. 8. A history of paroxysmal atrial fibrillation. 9. A history of staph aureus bacteremia in the past. ALLERGIES: There is reported allergy to MOXIFLOXACIN. MEDICATIONS: His [facility] medications include: - Tylenol as needed - albuterol nebulizers every 2 hours as needed - alprazolam 1 mg every 8 hours as needed for anxiety - amiodarone 200 mg daily - Carvedilol 6.25 mg twice a day - Sensipar 90 mg daily - Colace 200 mg daily - vitamin D 50,000 units once a week - escitalopram 10 mg daily - Auryxia three times a day with meals - gabapentin 300 mg three times a day - oxycodone 10 mg three times a week before dialysis - oxycodone 5/325 mg every 6 hours as needed for pain - Mirapex 0.125 mg as needed for restless legs - Preparation H as needed for hemorrhoids - Renvela 800 mg 6 tablets three times a day with meals - Nephro-Shante 1 tablet daily. PERSONAL AND SOCIAL HISTORY: The patient has been in [facility] for a few years due to morbid obesity, respiratory failure and multiple comorbid conditions. He has been unable to ambulate for several years due to severe spinal stenosis and lower extremity weakness. FAMILY HISTORY: Family history is negative for end-stage renal disease. REVIEW OF SYSTEMS: The patient denies any fever or chills. Ears, nose and throat are unremarkable. Cardiovascular system is significant for history of atrial fibrillation. His chronic dyspnea is unchanged. Respiratory system is significant for chronic tracheostomy for respiratory failure. He has obstructive sleep apnea and uses continuous positive airway pressure (CPAP) machine. He remains on trache collar during the daytime. Gastrointestinal (GI) system is negative for vomiting or diarrhea. He denies any abdominal pain. Genitourinary () system is negative for dysuria or hematuria. He has no urine output. Musculoskeletal system is significant for dependent on [employer] for transfers. He is unable to ambulate at all. Skin is negative for any rash or ulcers. Neurologically he is at his baseline mentation. Hematological system is significant for chronic anticoagulation for paroxysmal atrial fibrillation. PHYSICAL EXAMINATION: I saw the patient in the emergency room where he was lying in the stretcher using trache collar. He is not in any acute distress. Temperature 97 degrees Fahrenheit, heart rate 60 per minute and respiratory rate 20 per minute. Blood pressure 90/50 mmHg, which is about his baseline. Oxygen saturation 92%. Head is atraumatic. Tracheostomy is in place. No oral thrush or ulcers. He is edentulous. Heart exam reveals distant heart sounds. There is no pericardial friction rub audible. Lungs have diminished breath sounds bilaterally. Abdomen is morbidly obese and nontender and bowel sounds are normal. Extremities have no cyanosis or clubbing. Right forearm arteriovenous (AV) fistula is partially thrombosed. He has a large aneurysmal dilatation distally and proximally it is thrombosed. Neurologically, the patient is at his baseline mentation. He has severe bilateral lower extremity weakness. LABORATORY DATA: White blood cell (WBC) count 10.2, hemoglobin 13.2 and hematocrit 43.4. Platelets 121. Sodium 138, potassium 5.0, CO2 28, BUN 50 and creatinine 8.46. Calcium level 8.6 and phosphorus 6.4. Total protein 7.2 and albumin 3.5. INR was 1.04. PROBLEMS: 1. End-stage renal disease. The patient is regularly dialyzed on Wednesday, and Wednesday schedule. His last dialysis was and he is due for dialysis today. He will need vascular surgery evaluation and Dr. Gomez has already seen him in the emergency room. She did not feel that his fistula can be easily declotted at this time. He will need a revision of his fistula due to large aneurysm and blood clot. He will get a temporary PermaCath placed and we will dialyze him this afternoon. 2. Clotted AV fistula. As mentioned above, the patient will need surgical revision which will need to be done within next couple of days. I will discuss further with Dr. Rose on Wednesday. 3. Hypotension. The patient does have borderline hypotension chronically. I am concerned about possibility of infection in his AV fistula, though clinically it does not look infected. We will watch closely and see how he does. 4. Respiratory failure. This is chronic and related to morbid obesity and not volume overload. He has chronic tracheostomy and remains on trache collar. We will try to remove about 3.5 liters fluid with dialysis and see how he tolerates. Thank you for involving me in the care of Mr. Richard. We will follow him along with you. MARGO
[2019-03-06 22:00] VITALS: BP 109/56
[2019-03-06] MEDS: SENOKOT S TAB PO SCH (22:11)
[2019-03-06] MEDS: PRAMIPEXOLE (MIRAPEX) 0.125 MG TAB PO SCH (22:11)
[2019-03-07] MEDS: ALBUTEROL SULFATE 2.5 MG/0.5 ML INH NEB SOLN INH PRN ×3 (03:35→22:43)
[2019-03-07 06:00] VITALS: BP 115/53
[2019-03-07 06:16] LABS: HEMATOCRIT 40.5 % (42.0-52.0); HEMOGLOBIN 12.4 g/dl (13.5-17.5); MEAN CORPUSCULAR HEMOGLOBIN 33.1 pg (27.0-33.0); MEAN CORPUSCULAR HGB CONC 30.6 g/dl (32.0-36.5); PLATELET COUNT, AUTOMATED 111 10^3/uL (150-450); RED BLOOD COUNT 3.75 10^6/uL (4.30-6.10); WHITE BLOOD COUNT 7.9 10^3/uL (4.0-10.0)
[2019-03-07] MEDS: AMIODARONE 200 MG TAB (PACERONE) PO SCH (06:42)
[2019-03-07] MEDS: CARVedilol 6.25 MG TAB PO SCH ×2 (06:42→22:34)
[2019-03-07] MEDS: NEPHRO-VIT TAB (NEPHROCAPS) PO SCH (06:42)
[2019-03-07] MEDS: HEPARIN SOD (PORCINE) 5000 UNITS/ML VIAL SQ SCH ×3 (06:42→22:34)
[2019-03-07] MEDS: ESCITALOPRAM OXALATE 10 MG TAB (LEXAPRO) PO SCH (06:43)
[2019-03-07] MEDS: DOCUSATE SODIUM 100 MG CAP PO SCH (06:43)
[2019-03-07] MEDS: GABAPENTIN 300 MG CAP PO SCH ×3 (06:43→22:34)
[2019-03-07] MEDS: CINACALCET 30 MG TAB (SENSIPAR) PO SCH (06:43)
[2019-03-07 06:48] LABS: CALCIUM LEVEL 8.4 MG/DL (8.5-10.1); CREATININE FOR GFR 9.79 MG/DL (0.70-1.30); GLOMERULAR FILTRATION RATE 6.2 (>60); POTASSIUM SERUM 5.6 MEQ/L (3.5-5.1)
[2019-03-07] MEDS: IPRATROPIUM 0.5MG/ALBUTEROL 2.5MG INH SOL UD 3ML (DUONEB)(J7620) INH SCH ×3 (07:32→19:11)
[2019-03-07] MEDS: (RENVELA) SEVELAMER **CARBONate** 800 MG TAB PO SCH ×3 (07:54→17:18)
[2019-03-07] MEDS ORDERED: HEPARIN 1,000 UNITS/ML 10ML VIAL (FOR RADIOLOGY& DIALYSIS ONLY) XX ONE (09:30)
[2019-03-07] MEDS ORDERED: HEPARIN 1,000 UNITS/ML 10ML VIAL (FOR RADIOLOGY& DIALYSIS ONLY) IV ONE (09:30)
[2019-03-07] MEDS ORDERED: ALTEPLASE 2 MG/2 ML VIAL (J2997 PER 1MG) XX ONE (15:00)
--- NOTE | 2019-03-07 15:20 | IPNPDOC ---
Subjective Date Seen The patient was seen on 03/07/19. Subjective Chief Complaint/HPI Matthew was seen today while in dialysis. He has no acute complaints. He would like to know when vascular surgery will create his new fistula. Pulmonary: Denies: Dyspnea, Cough Cardiovascular: Denies: Chest Pain, Palpitations Gastrointestinal: Denies: Nausea, Vomiting Objective Physical Examination General Exam: Positive: Alert, Cooperative (laying flat receiving dialysis when I entered his bay), No Acute Distress Eye Exam: Positive: Conjunctiva & lids normal, Sclera icteric ENT Exam: Positive: Mucous membr. moist/pink Neck Exam: Positive: Other (trach in place with mask) Chest Exam: Positive: Clear to auscultation, Diminished; Negative: Rales Heart Exam: Positive: Rate Normal, Regular Rhythm; Negative: Murmurs Abdomen Exam: Positive: Normal bowel sounds, Soft; Negative: Tenderness Psych Exam: Positive: Mental status NL A-FIB/CHADSVASC A-FIB History Current/History of A-Fib/PAF?: No Age/Risk Factor Scoring CHADSVASC: CHADSVASC Response (Comments) Value Age Risk Factor Age < 65 years old 0 Gender Risk Factor Male 0 Hx of CHF No 0 Hx of HTN No 0 Hx of Stroke/TIA/or VTE No 0 Hx of Diabetes No 0 Hx of Vascular Disease Yes 1 Total 1 Assessment /Plan Problems (1) Thrombosis of arteriovenous fistula Status: Acute Response to Treatment: Stable Problem Specific Plan: Consult Specialist Problem Text: Left sided permacath placed. Will need revision of shunt. A venous mapping study was performed today to help guide the surgeons in determining where to put this shunt. It is not clear when this will happen, but this is the next step. The nephrology nurse was asked as well since she claims his current access for dialysis is functioning poorly. (2) Pickwickian syndrome Status: Chronic Response to Treatment: Stable Problem Text: Uses Bipap when sleeping. His super morbid obesity effects many areas of his health including this area. (3) ESRD (end stage renal disease) on dialysis Status: Chronic Response to Treatment: Stable Problem Specific Plan: Consult Specialist Problem Text: On dialysis Wednesday (4) Obesity Status: Chronic Response to Treatment: Stable Problem Text: As noted above his morbid obesity negatively affects almost every area of his health. Previous efforts to engage patient cooperation in weight loss was unsuccessful. He refused to allow calorie restriction to help with his weight. (5) Finger wound, simple, open Status: Chronic Response to Treatment: Stable (6) Tracheostomy present Status: Chronic Response to Treatment: Stable Plan/VTE VTE Prophylaxis Ordered?: Yes (subcutaneous heparin) Plan Anticipated Discharge: [facility] VS, I&O, 24H, Fishbone Vital Signs/I&O Vital Signs Date Time Temp Pulse Resp B/P (MAP) Pulse Ox O2 Delivery O2 Flow Rate FiO2 03/07/19 08:30 8.0 35 03/07/19 06:42 59 115/53 03/07/19 06:00 98.0 18 96 03/04/19 12:31 Trach Collar I&O- Last 24 Hours up to 6 AM 03/07/19 06:00 Intake Total 840 ml Balance 840 ml Laboratory Data 24H LABS Laboratory Tests 2 03/07/19 05:28: Nucleated Red Blood Cells % (auto) 0.0, Anion Gap 9, Glomerular Filtration Rate 6.2L, Blood Urea Nitrogen 64H, Creatinine 9.79*H, Sodium Level 135L, Potassium Level 5.6H, Chloride Level 101, Carbon Dioxide Level 25, Calcium Level 8.4L CBC/BMP Laboratory Tests 03/07/19 05:28 Red Blood Count 3.75 L, Mean Corpuscular Volume 108.0 H, Mean Corpuscular Hemo globin 33.1 H, Mean Corpuscular Hemoglobin Concent 30.6 L, Red Cell Distribution Width 13.8, Calcium Level 8.4 L Microbiology Microbiology 03/04/19 Blood Culture - Preliminary, Resulted No Growth after 48 hours. All Specime... Devendra Hadley MD March 07, 2019 3:20 pm
[2019-03-07 22:00] VITALS: BP 100/55
[2019-03-07] MEDS: SENOKOT S TAB PO SCH (22:33)
[2019-03-07] MEDS: PRAMIPEXOLE (MIRAPEX) 0.125 MG TAB PO SCH (22:34)
[2019-03-08] MEDS: ALBUTEROL SULFATE 2.5 MG/0.5 ML INH NEB SOLN INH PRN ×5 (02:52→22:18)
[2019-03-08] MEDS: HEPARIN SOD (PORCINE) 5000 UNITS/ML VIAL SQ SCH ×3 (05:46→21:48)
[2019-03-08 06:00] VITALS: BP 119/57
[2019-03-08 07:07] LABS: CALCIUM LEVEL 7.9 MG/DL (8.5-10.1); CREATININE FOR GFR 7.76 MG/DL (0.70-1.30); POTASSIUM SERUM 5.5 MEQ/L (3.5-5.1)
--- NOTE | 2019-03-08 07:57 | IPNPDOC ---
Subjective Date Seen The patient was seen on 03/08/19. Subjective Chief Complaint/HPI Patient lying comfortably in bed as I entered the room. He is questioning when his fistula revision will be done Constitutional: Denies: Chills, Fever Pulmonary: Denies: Dyspnea, Cough, Pleuritic Chest Pain Cardiovascular: Denies: Chest Pain, Palpitations, Orthopnea, Edema Gastrointestinal: Denies: Nausea, Vomiting Psych: Reports: Mood Normal Objective Physical Examination General Exam: Positive: Alert, Cooperative, No Acute Distress Eye Exam: Positive: Conjunctiva & lids normal, Sclera icteric ENT Exam: Positive: Mucous membr. moist/pink Neck Exam: Positive: Other (trach in place with mask) Chest Exam: Positive: Clear to auscultation, Diminished; Negative: Rales, Rhonchi Heart Exam: Positive: Rate Normal, Regular Rhythm; Negative: Murmurs Abdomen Exam: Positive: Normal bowel sounds, Soft; Negative: Tenderness Psych Exam: Positive: Mental status NL A-FIB/CHADSVASC A-FIB History Current/History of A-Fib/PAF?: No Age/Risk Factor Scoring CHADSVASC: CHADSVASC Response (Comments) Value Age Risk Factor Age < 65 years old 0 Gender Risk Factor Male 0 Hx of CHF No 0 Hx of HTN No 0 Hx of Stroke/TIA/or VTE No 0 Hx of Diabetes No 0 Hx of Vascular Disease Yes 1 Total 1 Assessment /Plan Problems (1) Thrombosis of arteriovenous fistula Status: Acute Response to Treatment: Stable Problem Specific Plan: Consult Specialist Problem Text: 03/08/19: Venous mapping was completed. We await vascular to determine for shunt revision Left sided permacath placed. Will need revision of shunt. A venous mapping study was performed today to help guide the surgeons in determining where to put this shunt. It is not clear when this will happen, but this is the next step. The n ephrology nurse was asked as well since she claims his current access for dialysis is functioning poorly. (2) Pickwickian syndrome Status: Chronic Response to Treatment: Stable Problem Text: Uses Bipap when sleeping. His super morbid obesity effects many areas of his health including this area. (3) ESRD (end stage renal disease) on dialysis Status: Chronic Response to Treatment: Stable Problem Specific Plan: Consult Specialist Problem Text: 03/08/19: Nephrology following. Continue dialysis Wednesday, and Wednesday On dialysis Wednesday (4) Obesity Status: Chronic Response to Treatment: Stable Problem Text: As noted above his morbid obesity negatively affects almost every area of his health. Previous efforts to engage patient cooperation in weight loss was unsuccessful. He refused to allow calorie restriction to help with his weight. (5) Finger wound, simple, open Status: Chronic Response to Treatment: Stable (6) Tracheostomy present Status: Chronic Response to Treatment: Stable Plan/VTE VTE Prophylaxis Ordered?: Yes (subcutaneous heparin) Plan Anticipated Discharge: [facility] Attending Note: I saw and examined Mr. Richard, discussed with Yissel Torre DNP. Agree with her note as documented. I had a chance to speak with Dr. Ybarra today, and she explained the specific difficulties in this case. Part of the difficulty in scheduling this procedure has been getting an adequate block of OR time. They do not want to do them after hours because of his high risk for complication. They secure the requisite time on Wednesday around noon. He will have his procedure then. Unfortunately I think this means he will likely need to stay with us through the weekend and can be discharged back to [facility] on Wednesday. 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) VS, I&O, 24H, Fishbone Vital Signs/I&O Vital Signs Date Time Temp Pulse Resp B/P (MAP) Pulse Ox O2 Delivery O2 Flow Rate FiO2 03/08/19 06:00 98.6 62 18 119/57 (77) 93 03/07/19 21:45 8.0 35 03/04/19 12:31 Trach Collar I&O- Last 24 Hours up to 6 AM 03/08/19 06:00 Intake Total 1380 ml Output Total 3000 ml Balance -1620 ml Laboratory Data 24H LABS Laboratory Tests 2 03/08/19 05:55: Anion Gap 10, Glomerular Filtration Rate 8.0L, Blood Urea Nitrogen 46H, Creatinine 7.76H, Sodium Level 135L, Potassium Level 5.5H, Chloride Level 101, Carbon Dioxide Level 24, Calcium Level 7.9L CBC/BMP Laboratory Tests 03/08/19 05:55 Calcium Level 7.9 L Microbiology Microbiology 03/04/19 Blood Culture - Preliminary, Resulted No Growth after 72 hours. All specime... YISSEL TORRE March 08, 2019 7:57 am Devendra Hadley MD March 08, 2019 9:05 pm
[2019-03-08 08:50] LABS: BASO # 0.1 10^3/uL (0.0-0.2); BASO % 0.7 % (0.0-1.0); EOS # 0.4 10^3/uL (0.0-0.50); EOS % 5.2 % (0.0-3.0); HEMATOCRIT 39.3 % (42.0-52.0); HEMOGLOBIN 12.1 g/dl (13.5-17.5); LYMPH # 2.3 10^3/uL (1.5-4.5); LYMPH % 29.9 % (24.0-44.0); MEAN CORPUSCULAR HEMOGLOBIN 32.6 pg (27.0-33.0); MEAN CORPUSCULAR HGB CONC 30.8 g/dl (32.0-36.5); MEAN CORPUSCULAR VOLUME 105.9 fl (80.0-96.0); MONO # 0.5 10^3/uL (0.0-0.8); MONO % 6.5 % (0.0-5.0); NEUTROPHILS # 4.3 10^3/uL (1.8-7.7); NEUTROPHILS % 57.3 % (36.0-66.0); PLATELET COUNT, AUTOMATED 104 10^3/uL (150-450); RED BLOOD COUNT 3.71 10^6/uL (4.30-6.10); WHITE BLOOD COUNT 7.6 10^3/uL (4.0-10.0)
[2019-03-08] MEDS: CARVedilol 6.25 MG TAB PO SCH ×2 (09:00→21:48)
[2019-03-08] MEDS: (RENVELA) SEVELAMER **CARBONate** 800 MG TAB PO SCH ×3 (09:21→18:14)
[2019-03-08] MEDS: CINACALCET 30 MG TAB (SENSIPAR) PO SCH (09:21)
[2019-03-08] MEDS: GABAPENTIN 300 MG CAP PO SCH ×3 (09:22→21:48)
[2019-03-08] MEDS: DOCUSATE SODIUM 100 MG CAP PO SCH (09:22)
[2019-03-08] MEDS: NEPHRO-VIT TAB (NEPHROCAPS) PO SCH (09:22)
[2019-03-08] MEDS: ESCITALOPRAM OXALATE 10 MG TAB (LEXAPRO) PO SCH (09:22)
[2019-03-08] MEDS: AMIODARONE 200 MG TAB (PACERONE) PO SCH (09:22)
[2019-03-08] MEDS: PERCOCET 5MG/325MG TAB PO PRN (12:40)
--- NOTE | 2019-03-08 12:45 | IPNPDOC ---
Text Note Date of Service The patient was seen on 03/07/19. NOTE Nephrology Service: Subjective: Patient seen and examined at bedside sitting up in bed. Difficult to comprehend his speech. However, had no acute complaints that were made aware to me. States has not had revision of his AV fistula/thrombolysis procedure as of yet. No fevers, chest pain, SOB more than usual, abdominal pain, nausea, vomiting, or diarrhea. Patient is eventually to go to IR for his RUE AV fistula revision as per Vascular Surgery Team determination which is still yet to be determined. Had a new permacath placed on 03/04. Last hemodialysis was 03/04 with 3500 mL removed. Objective: Vitals: T 98 P 59 RR 18 BP 115/53 Pulse Ox: 96% on 5.0 L/min at 28% FiO2 via Trach Collar Intake: 970 ml Output: 0 ml Balance: (+) 970 ml GENERAL APPEARANCE: Pleasant and cooperative morbidly obese nonverbal adult male sitting in bed in NAD. Awake, alert, oriented x 3. HEENT: NCAT. NECK: Supple. No JVD able to be appreciated due to increased neck circumfere nce/body habitus. RESPIRATORY: Clear to Auscultation bilaterally but diminished bilaterally. No wheezes/rales/rhonchi. CARDIOVASCULAR: Distant heart sounds. Normal S1S2, RRR, no murmurs appreciated. ABDOMEN: Soft, morbidly obese, nontender, nondistended. EXTREMITIES: (+)Trace pitting edema bilateral lower extremities. No clubbing/cyanosis. INTEGUMENTARY: Warm and dry skin. Chronic venous stasis changes noted in lower extremities bilaterally. NEUROLOGICAL: No focal neurologic deficits appreciated on inspection. PSYCHIATRIC: Appropriate mood and affect. No signs of overt depression/anxiety. Laboratory data: CBC: WBC 7.9, Hgb 12.4, Platelets 111 (L) BMP: Na 135 (L), K 5.6, CO2 25, BUN 64, Cr 9.79, Glucose 96, Ca 8.4, Albumin 3.2 Microbiology: NGTD x 48 hours. Imaging: No new imaging today. Current Inpatient Medications: Nephro-Shante Rx (Vitamin B Complex/Vitamin C/Folic Acid) 1 tab PO daily Sensipar (Cinacalcet) 90 mg PO daily Carvedilol 6.25 mg PO BID Amiodarone 200 mg PO daily Oxycodone 10 mg PO PRN pain as directed Percocet 5/325 mg PO q6h PRN pain Gabapentin 300 mg PO TID Pramipexole Dihydrochloride (Mirapex) 0.125 mg PO QHS Sevelamer Carbonate (Renvela) 4900 WM PO Drisdol 58836 units PO Fridays No medication changes noted today. Assessment/Plan: 1. End-stage renal disease: Last HD on 03/04 via temporary permacath with 3500 mL removed. Next dialysis is today via catheter until AV fistula is revised. 2. 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 Date and time of revision to be determined by Vascular Surgery still. No updates as of yet known. Dr. Curtis has reached out to Dr. Rose regarding the plans for surgery. Patient afebrile. Blood cx show to be negative x 48 hours. No current signs of infection. Previously treated by Dr. Curtis with vancomycin for possible infection risk at AV fistula site during this admission. Will continue to monitor for any signs of infection. 3. Hypotension: Improved after given IV fluids. BP acceptable at this time at 115/53. Continue with current antihypertensive regimen. Continue to monitor for hypotension. 4. Hyperkalemia: Still hyperkalemic at 5.6 today. Not severe hyperkalemia. Will monitor for any signs/symptoms of hyperkalemia such as muscle aches/pains, chest pain, arrhythmias. Continue to monitor and continue with dialysis for management at this time. 5. Chronic respiratory failure status-post tracheostomy: on a trach collar at 5L/min with FiO2 28%. Satting 96%. This is baseline. Will monitor for any development of acute decompensation. Keep patient on continuous pulse oximeter. 6. Obstructive sleep apnea: Continue CPAP at night at his out of hospital settings. Patient is a Full Code. My preceptor for this patient encounter was Dr. Narendra Curtis, and was physically present in the building during the encounter and was fully available. As needed, all aspects of the patient interview, examination, medical decision making process, and medical care plan development were reviewed and approved by the preceptor. Preceptor is aware and concurs with the plan as stated in the body of this note and will attest to such by his/her cosignature. A-FIB/CHADSVASC A-FIB History Current/History of A-Fib/PAF?: Yes Current Oral Anticoagulant The: No (No (history of developing perinephric hematoma)) Age/Risk Factor Scoring CHADSVASC: CHADSVASC Response (Comments) Value Age Risk Factor Age < 65 years old 0 Gender Risk Factor Male 0 Hx of CHF No 0 Hx of HTN No 0 Hx of Stroke/TIA/or VTE No 0 Hx of Diabetes No 0 Hx of Vascular Disease Yes 1 Total 1 VS,Fishbone, I+O VS, Fishbone, I+O Laboratory Tests 03/07/19 05:28 Red Blood Count 3.75 L, Mean Corpuscular Volume 108.0 H, Mean Corpuscular Hemoglobin 33.1 H, Mean Corpuscular Hemoglobin Concent 30.6 L, Red Cell Distribution Width 13.8, Calcium Level 8.4 L Vital Signs Date Time Temp Pulse Resp B/P (MAP) Pulse Ox O2 Delivery O2 Flow Rate FiO2 03/07/19 15:32 72 16 03/07/19 08:30 8.0 35 03/07/19 06:42 115/53 03/07/19 06:00 98.0 96 03/04/19 12:31 Trach Collar I&O- Last 24 Hours up to 6 AM 03/07/19 06:00 Intake Total 840 ml Balance 840 ml TOYA SELLERS DO March 07, 2019 22:27
[2019-03-08 14:00] VITALS: BP 116/62
--- NOTE | 2019-03-08 14:48 | IPNPDOC ---
Date Seen The patient was seen on 03/08/19. Progress Note Mr. Richard is a very pleasant 48-year-old gentleman status post acute thrombosis of his right upper extremity brachiocephalic AV fistula, status post challenging left IJ PermCath placement postop day 4, with need for more permanent access. The patient's PermCath is not working well, which is concerning because it was so challenging to place and would be very difficult to replace. Dr. Rose and I have spoken quite a few times about this patient since Wednesday. We have both tried to come up with a good plan for long-term access. This is not a straightforward case in any way. There are lots of challenges, not the least of which is the patient's greater than 400 pound weight. It is difficult to joint position, on any or table to allow for any kind of good fluoroscopic imaging, due to his extreme size. Unfortunately he is not a candidate for procedures and interventional radiology due to his size. The simplest solution would be a thrombectomy of his AV fistula in the right upper extremity, but I foresee a lot of challenges with this. 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 Additionally, I do not think we would get a complete clearing of clot this way, and would be more likely to get the channel through the clot, which would be likely to rethrombosis and would also be challenging to access the flow lumen with dialysis needles through the remaining clot at the wall of the fistula. I honestly feel the best option for the patient is a left upper extremity brachiocephalic AV fistula creation. The left upper arm cephalic vein is quite large at baseline, and would likely mature quickly. It is however possible that the vein would be too deep for access due to his morbid obesity, and would require superficialization prior to use. This would take 4-8 weeks for maturity, plus or minus the time for superficialization and healing if that was required. We have been informed that the PermCath is not working well, which makes this a less favorable option for short-term access. I still think it is the best option for long-term access. In order to provide a more rapid access and limit the amount of time with PermCath use, the best option for now may be to try an open thrombectomy of the AV fistula. This would allow clearance of not only acute thrombus in the central flow channel but also some of the chronic thrombus in the aneurysmal segments in the wall of the vessel. It is possible that the reason that the fistula failed this due to more proximal areas of stenosis. We do not have a good way to image this. If we are able to see the central veins, we will not be able to see the peripheral and vice versa. We prefer with any fistula work to be able to follow the flow from the AV anastomosis to the central veins, but due to the patient's size and limitations for OR tables, this is not possible. We did obtain a vein mapping and we suspect that the right axillary and subclavian vein outflow are intact based on imaging that we could see, but we are not 100% sure. The patient has significant swelling, collaterals in the shoulder and chest, and this suggests there is a more central occlusion, but we are hopeful that we may have enough outflow to at least maintain patency while we work on a backup access in the left upper extremity. The second option for continuing the right upper extremity as an access is a brachial basilic forearm loop graft. If his outflow is intact, this would provide access that would be ready to use within a week. His PermCath is not working well at all, and is positional based on how he holds his head, and I'm not sure that it will last a week, but this is a fairly rapid option as well. He does have a patent basilic vein in the right upper extremity, but I do not feel the patient is a suitable candidate for a brachial basilic AV fistula creation with basilic transposition due to his morbid obesity. The basilic vein is substantially deeper in him than in a normal-sized arm, and would require a great deal of soft tissue dissection for transposition which would be very likely to have poor wound healing. Also, there may not be enough length in the vein to allow transposition superficial enough to allow access since it would have to be brought up from such a deep space. However, if there is no obstruction to the central veins, the basilic could provide enough outflow for forearm loop graft. The patient will have dialysis tomorrow with his PermCath. Depending on how he does with this, we also may need to replace his PermCath as well. I would really like to avoid this if possible, as the procedure is very uncomfortable for the patient. He has very challenging anatomy coming from the left IJ, and it took an enormous amount of effort to manipulate the PermCath into position, even over stiff wire. Nevertheless, if we are not able to declot the radiocephalic fistula, this may be necessary. The patient and I had a long discussion this morning. He is frustrated because he wasn't sure what his fistula plan was, and I understand his frustration. Unfortunately, there is no easy answer and we have spent the last few days trying to decide on a suitable solution for such a complicated patient. It is also been challenging to find enough of an open spot in the OR to allow time for the possibility of multiple procedures we may need to do. This is not a case that I wanted to do after hours or at night, as the patient is so high risk and challenging. We were able to secure a large block of time on Wednesday at noon. I know Mr. Richard would like to be discharged today but he is more than understanding of what we are trying to accomplish and is willing to stay till Wednesday. I think if he is discharged today, they will have trouble running him on his PermCath outpatient tomorrow and he will be back in the ER without dialysis. It is better for him to stay in my opinion. I also don't think it would be simple process for him to come and have all this done as an outpatient. He has an overwhelming list of comorbidities, not the least of which are cardiac and pulmonary. I apologized to him for the delay in making a plan for his access, and explained in detail all of our concerns, and the possible ways we may be able to provide a suitable access both short and long-term. After going over the risks benefits and alternatives extensively, and answering all of his questions, informed consent was obtained. We will plan to proceed on Wednesday. I also discussed with the patient and the primary team that if for some reason we are not able to provide a suitable access for this patient, the next step will be to transfer him to a higher level of care. He understands this may be necessary if we are unsuccessful. VS, I&O, 24H, Fishbone Vital Signs/I&O Vital Signs Date Time Temp Pulse Resp B/P (MAP) Pulse Ox O2 Delivery O2 Flow Rate FiO2 03/08/19 13:10 18 03/08/19 09:00 62 119/57 03/08/19 08:00 8.0 35 03/08/19 06:00 98.6 93 03/04/19 12:31 Trach Collar I&O- Last 24 Hours up to 6 AM 03/08/19 06:00 Intake Total 1380 ml Output Total 3000 ml Balance -1620 ml Laboratory Data 24H LABS Laboratory Tests 2 03/08/19 05:55: Immature Granulocyte % (Auto) 0.4, White Blood Count 7.6, Red Blood Count 3.71L, Hemoglobin 12.1L, Hematocrit 39.3L, Mean Corpuscular Volume 105.9H, Mean Corpuscular Hemoglobin 32.6, Mean Corpuscular Hemoglobin Concent 30.8L, Red Cell Distribution Width 13.9, Platelet Count 104L, Neutrophils (%) (Auto) 57.3, L ymphocytes (%) (Auto) 29.9, Monocytes (%) (Auto) 6.5H, Eosinophils (%) (Auto) 5.2H, Basophils (%) (Auto) 0.7, Neutrophils # (Auto) 4.3, Lymphocytes # (Auto) 2.3, Monocytes # (Auto) 0.5, Eosinophils # (Auto) 0.4, Basophils # (Auto) 0.1, Nucleated Red Blood Cells % (auto) 0.0, Anion Gap 10, Glomerular Filtration Rate 8.0L, Blood Urea Nitrogen 46H, Creatinine 7.76H, Sodium Level 135L, Potassium Level 5.5H, Chloride Level 101, Carbon Dioxide Level 24, Calcium Level 7.9L CBC/BMP Laboratory Tests 03/08/19 05:55 Red Blood Count 3.71 L, Mean Corpuscular Volume 105.9 H, Mean Corpuscular Hemoglobin 32.6, Mean Corpuscular Hemoglobin Concent 30.8 L, Red Cell Distribution Width 13.9, Neutrophils (%) (Auto) 57.3, Lymphocytes (%) (Auto) 29.9, Monocytes (%) (Auto) 6.5 H, Eosinophils (%) (Auto) 5.2 H, Basophils (%) (Auto) 0.7, Neutrophils # (Auto) 4.3, Lymphocytes # (Auto) 2.3, Monocytes # (Auto) 0.5, Eosinophils # (Auto) 0.4, Basophils # (Auto) 0.1, Calcium Level 7.9 L Microbiology Microbiology 03/04/19 Blood Culture - Preliminary, Resulted No Growth after 72 hours. All specime... PRIYANKA CUMMINS MD March 08, 2019 14:48
[2019-03-08 15:19] VITALS: O2SAT 90
--- NOTE | 2019-03-08 16:53 | IPNPDOC ---
Text Note Date of Service The patient was seen on 03/08/19. NOTE Nephrology Service: Subjective: Patient seen and examined at bedside sitting up in bed. Difficult to comprehend his speech. He is becoming very impatient and does not know what the holdup is with his AV fistula revision/thrombolysis surgery. He states he wants to go back home to the [facility]. He is very frustrated. Otherwise, he offers no acute complaints that were made aware to me. States has not had revision of his AV fistula/thrombolysis procedure as of yet. No fevers, chest pain, SOB more than usual, abdominal pain, nausea, vomiting, or diarrhea, constipation. Patient is eventually to go to IR for his RUE AV fistula revision as per Vascular Surgery Team determination which is still yet to be determined. Dr. Curtis has made contact with Vascular Surgery team. Dr. Ybarra plans to see patient soon today. Patient's last hemodialysis was 03/07 with temporary permacath with 3000 mL removed. Dialysis nurse did report that the catheter was not functioning that well yesterday however. Thus, important for fistula repair to be done soon. Objective: Vitals: T 98.6 P 62 RR 18 BP 119/57 Pulse Ox: 93% on 8.0 L/min at 35% FiO2 via Trach Collar Intake: 980 ml Output: 3000 ml Balance: (-) 2020 ml BMs: 2 GENERAL APPEARANCE: Pleasant and cooperative morbidly obese nonverbal adult male sitting in bed in NAD. Awake, alert, oriented x 3. PSYCHIATRIC: Flat affect, frustrated mood. No overt signs of depression/ anxiety. HEENT: NCAT. NECK: Supple. No JVD able to be appreciated due to increased neck circumference/body habitus. RESPIRATORY: Clear to Auscultation bilaterally but diminished bilaterally. No wheezes/rales/rhonchi. CARDIOVASCULAR: Distant heart sounds. Normal S1S2, RRR, no murmurs appreciated. ABDOMEN: Soft, morbidly obese, nontender, nondistended. Normoactive bowel sounds. EXTREMITIES: Very trace edema bilateral lower extremities. No clubbing/cyanosis. INTEGUMENTARY: Warm and dry skin. Chronic venous stasis changes noted in lower extremities bilaterally. NEUROLOGICAL: No focal neurologic deficits appreciated on inspection. Laboratory data: CBC: WBC 7.6, Hgb 12.1, Platelets 104 (L) BMP: Na 135 (L), K 5.5, CO2 24, BUN 46, Cr 7.76, Glucose 91, Ca 7.9 Microbiology: NGTD x 72 hours. Imaging: No new imaging today. Current Inpatient Medications: Nephro-Shante Rx (Vitamin B Complex/Vitamin C/Folic Acid) 1 tab PO daily Sensipar (Cinacalcet) 90 mg PO daily Carvedilol 6.25 mg PO BID Amiodarone 200 mg PO daily Oxycodone 10 mg PO PRN pain as directed Percocet 5/325 mg PO q6h PRN pain Gabapentin 300 mg PO TID Pramipexole Dihydrochloride (Mirapex) 0.125 mg PO QHS Sevelamer Carbonate (Renvela) 4900 WM PO Drisdol 46353 units PO Fridays No medication changes noted today. Assessment/Plan: 1. End-stage renal disease: Last HD on 03/07 via temporary permacath with 3000 mL removed. Next dialysis usually would be tomorrow. However, catheter is not functioning that well as per dialysis nurse. AV fistula needs to be revised RADHA . Dr. Curtis has reached out to Vascular Surgery team to make them aware, and they will be seeing patient soon today. 2. 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 Date and time of revision to be determined by Vascular Surgery still. No updates as of yet known. Patient afebrile. Blood cx show to be negative x 72 hours. No current signs of infection. Previously treated by Dr. Curtis with vancomycin for possible infection risk at AV fistula site during this admission. Will continue to monitor for any signs of infection. 3. Hypotension: Improved after given IV fluids initially. BP acceptable at this time at 119/57. Continue with current antihypertensive regimen. Continue to monitor for hypotension. 4. Hyperkalemia: Still hyperkalemic at 5.5 today. Not severe hyperkalemia. Will monitor for any signs/symptoms of hyperkalemia such as muscle aches/pains, chest pain, arrhythmias. Continue to monitor and continue with dialysis for management at this time. 5. Chronic respiratory failure status-post tracheostomy: on a trach collar at 8L/min with FiO2 35%. Satting 93%. This is baseline. Will monitor for any development of acute decompensation. Keep patient on continuous pulse oximeter. 6. Obstructive sleep apnea: Continue CPAP at night at his out of hospital settings. Patient is a Full Code. My preceptor for this patient encounter was Dr. Narendra Curtis, and was physicall y present in the building during the encounter and was fully available. As needed, all aspects of the patient interview, examination, medical decision making process, and medical care plan development were reviewed and approved by the preceptor. Preceptor is aware and concurs with the plan as stated in the body of this note and will attest to such by his/her cosignature. A-FIB/CHADSVASC A-FIB History Current/History of A-Fib/PAF?: Yes Current Oral Anticoagulant The: No (History of developing perinephric hematoma) Age/Risk Factor Scoring CHADSVASC: CHADSVASC Response (Comments) Value Age Risk Factor Age < 65 years old 0 Gender Risk Factor Male 0 Hx of CHF No 0 Hx of HTN No 0 Hx of Stroke/TIA/or VTE No 0 Hx of Diabetes No 0 Hx of Vascular Disease Yes 1 Total 1 VS,Fishbone, I+O VS, Fishbone, I+O Laboratory Tests 03/08/19 05:55 Red Blood Count 3.71 L, Mean Corpuscular Volume 105.9 H, Mean Corpuscular Hemoglobin 32.6, Mean Corpuscular Hemoglobin Concent 30.8 L, Red Cell Distribution Width 13.9, Neutrophils (%) (Auto) 57.3, Lymphocytes (%) (Auto) 29.9, Monocytes (%) (Auto) 6.5 H, Eosinophils (%) (Auto) 5.2 H, Basophils (%) (Auto) 0.7, Neutrophils # (Auto) 4.3, Lymphocytes # (Auto) 2.3, Monocytes # (Auto) 0.5, Eosinophils # (Auto) 0.4, Basophils # (Auto) 0.1, Calcium Level 7.9 L Vital Signs Date Time Temp Pulse Resp B/P (MAP) Pulse Ox O2 Delivery O2 Flow Rate FiO2 03/08/19 15:19 90 Trach Collar 8.0 35 03/08/19 14:00 97.6 67 18 116/62 (80) I&O- Last 24 Hours up to 6 AM 03/08/19 06:00 Intake Total 1380 ml Output Total 3000 ml Balance -1620 ml TOYA SELLERS DO March 08, 2019 16:53
[2019-03-08] MEDS: IPRATROPIUM 0.5MG/ALBUTEROL 2.5MG INH SOL UD 3ML (DUONEB)(J7620) INH SCH (18:25)
[2019-03-08] MEDS: PRAMIPEXOLE (MIRAPEX) 0.125 MG TAB PO SCH (21:48)
[2019-03-08] MEDS: SENOKOT S TAB PO SCH (21:48)
[2019-03-08 22:00] VITALS: BP 126/56
[2019-03-09] MEDS: ALBUTEROL SULFATE 2.5 MG/0.5 ML INH NEB SOLN INH PRN ×3 (02:51→23:49)
[2019-03-09] MEDS: (RENVELA) SEVELAMER **CARBONate** 800 MG TAB PO SCH ×3 (03:46→15:03)
[2019-03-09] MEDS: HEPARIN SOD (PORCINE) 5000 UNITS/ML VIAL SQ SCH ×3 (05:39→21:05)
[2019-03-09] MEDS: CINACALCET 30 MG TAB (SENSIPAR) PO SCH (05:40)
[2019-03-09] MEDS: NEPHRO-VIT TAB (NEPHROCAPS) PO SCH (05:40)
[2019-03-09] MEDS: AMIODARONE 200 MG TAB (PACERONE) PO SCH (05:40)
[2019-03-09] MEDS: ESCITALOPRAM OXALATE 10 MG TAB (LEXAPRO) PO SCH (05:40)
[2019-03-09] MEDS: DOCUSATE SODIUM 100 MG CAP PO SCH (05:40)
[2019-03-09] MEDS: GABAPENTIN 300 MG CAP PO SCH ×3 (05:40→21:05)
[2019-03-09] MEDS: CARVedilol 6.25 MG TAB PO SCH ×2 (05:41→21:06)
[2019-03-09 06:00] VITALS: BP 117/56
[2019-03-09 06:26] LABS: BASO % 0.5 % (0.0-1.0); EOS # 0.4 10^3/uL (0.0-0.50); EOS % 5.3 % (0.0-3.0); HEMATOCRIT 38.4 % (42.0-52.0); HEMOGLOBIN 11.9 g/dl (13.5-17.5); LYMPH # 2.7 10^3/uL (1.5-4.5); LYMPH % 35.5 % (24.0-44.0); MEAN CORPUSCULAR HEMOGLOBIN 32.7 pg (27.0-33.0); MEAN CORPUSCULAR VOLUME 105.5 fl (80.0-96.0); MONO # 0.5 10^3/uL (0.0-0.8); MONO % 6.1 % (0.0-5.0); NEUTROPHILS # 3.9 10^3/uL (1.8-7.7); NEUTROPHILS % 52.2 % (36.0-66.0); PLATELET COUNT, AUTOMATED 110 10^3/uL (150-450); RED BLOOD COUNT 3.64 10^6/uL (4.30-6.10); WHITE BLOOD COUNT 7.5 10^3/uL (4.0-10.0)
[2019-03-09 06:55] LABS: CALCIUM LEVEL 8.4 MG/DL (8.5-10.1); CREATININE FOR GFR 9.33 MG/DL (0.70-1.30); GLOMERULAR FILTRATION RATE 6.5 (>60); POTASSIUM SERUM 5.4 MEQ/L (3.5-5.1)
[2019-03-09] MEDS: IPRATROPIUM 0.5MG/ALBUTEROL 2.5MG INH SOL UD 3ML (DUONEB)(J7620) INH SCH ×2 (07:32→19:43)
[2019-03-09] MEDS: oxyCODONE 5MG TAB PO PRN (08:14)
[2019-03-09] MEDS ORDERED: HEPARIN 1,000 UNITS/ML 10ML VIAL (FOR RADIOLOGY& DIALYSIS ONLY) XX ONE (10:00)
[2019-03-09] MEDS ORDERED: HEPARIN 1,000 UNITS/ML 10ML VIAL (FOR RADIOLOGY& DIALYSIS ONLY) IV ONE (10:00)
[2019-03-09 14:00] VITALS: BP 116/65
[2019-03-09] MEDS: PERCOCET 5MG/325MG TAB PO PRN ×2 (15:02→21:09)
--- NOTE | 2019-03-09 16:41 | IPNPDOC ---
Date Seen The patient was seen on 03/09/19. Progress Note Pt seen and examined. Doing well. Extremities marked for surgery tomorrow. NPO p MN. Antibacterial bath. Ancef 3G pre-op. Plan A: RUE open thrombectomy radial cephalic AVF, and if we are successful he will have to run on dialysis through fistula for at least an hour to remove any residual thrombus. Plan B: RUE brachia to basilic forearm loop graft, and he will continue to dialyze with his permcath for a week until healed. Plan C: LUE brachial cephalic AVF creation and permcath exchange for a 30cm catheter so he hopefully has a less positional permcath while fistula matures. Pt counseled. All questions answered. VS, I&O, 24H, Fishbone Vital Signs/I&O Vital Signs Date Time Temp Pulse Resp B/P (MAP) Pulse Ox O2 Delivery O2 Flow Rate FiO2 03/09/19 15:02 18 03/09/19 14:00 97.6 59 116/65 (82) 99 8.0 35 03/08/19 15:19 Trach Collar I&O- Last 24 Hours up to 6 AM 03/09/19 06:00 Intake Total 2060 ml Output Total 0 ml Balance 2060 ml Laboratory Data 24H LABS Laboratory Tests 2 03/09/19 05:45: Immature Granulocyte % (Auto) 0.4, White Blood Count 7.5, Red Blood Count 3.64L, Hemoglobin 11.9L, Hematocrit 38.4L, Mean Corpuscular Volume 105.5H, Mean Corpuscular Hemoglobin 32.7, Mean Corpuscular Hemoglobin Concent 31.0L, Red Cell Distribution Width 13.8, Platelet Count 110L, Neutrophils (%) (Auto) 52.2, Lymphocytes (%) (Auto) 35.5, Monocytes (%) (Auto) 6.1H, Eosinophils (%) (Auto) 5.3H, Basophils (%) (Auto) 0.5, Neutrophils # (Auto) 3.9, Lymphocytes # (Auto) 2.7, Monocytes # (Auto) 0.5, Eosinophils # (Auto) 0.4, Basophils # (Auto) 0.0, Nucleated Red Blood Cells % (auto) 0.0, Anion Gap 9, Glomerular Filtration Rate 6.5L, Blood Urea Nitrogen 58H, Creatinine 9.33*H, Sodium Level 136, Potassium Level 5.4H, Chloride Level 100, Carbon Dioxide Level 27, Calcium Level 8.4L CBC/BMP Laboratory Tests 03/09/19 05:45 Red Blood Count 3.64 L, Mean Corpuscular Volume 105.5 H, Mean Corpuscular Hemog lobin 32.7, Mean Corpuscular Hemoglobin Concent 31.0 L, Red Cell Distribution Width 13.8, Neutrophils (%) (Auto) 52.2, Lymphocytes (%) (Auto) 35.5, Monocytes (%) (Auto) 6.1 H, Eosinophils (%) (Auto) 5.3 H, Basophils (%) (Auto) 0.5, Neutrophils # (Auto) 3.9, Lymphocytes # (Auto) 2.7, Monocytes # (Auto) 0.5, Eosinophils # (Auto) 0.4, Basophils # (Auto) 0.0, Calcium Level 8.4 L Microbiology Microbiology 03/04/19 Blood Culture - Preliminary, Resulted No Growth after 72 hours. All specime... PRIYANKA CUMMINS MD March 09, 2019 16:41
--- NOTE | 2019-03-09 17:00 | IPNPDOC ---
Subjective Date Seen The patient was seen on 03/09/19. Subjective Chief Complaint/HPI Matthew has no acute complaints today. He had dialysis today. He anticipates surgery for fistula creation tomorrow. He is hoping he could go back to the [facility] on Wednesday. General: Reports: Normal Appetite Pulmonary: Denies: Dyspnea, Cough Psych: Reports: Mood Normal; Denies: Anxiety Objective Physical Examination General Exam: Positive: Alert, Cooperative (laying in his bed when I entered his room), No Acute Distress Eye Exam: Positive: Conjunctiva & lids normal; Negative: Sclera icteric ENT Exam: Positive: Mucous membr. moist/pink Neck Exam: Positive: Other (trach in place with mask) Chest Exam: Positive: Clear to auscultation, Diminished; Negative: Rales, Rhonchi Heart Exam: Positive: Rate Normal, Regular Rhythm; Negative: Murmurs Abdomen Exam: Positive: Normal bowel sounds, Soft; Negative: Tenderness Extremity Exam: Negative: Edema Psych Exam: Positive: Mental status NL A-FIB/CHADSVASC A-FIB History Current/History of A-Fib/PAF?: No Age/Risk Factor Scoring CHADSVASC: CHADSVASC Response (Comments) Value Age Risk Factor Age < 65 years old 0 Gender Risk Factor Male 0 Hx of CHF No 0 Hx of HTN No 0 Hx of Stroke/TIA/or VTE No 0 Hx of Diabetes No 0 Hx of Vascular Disease Yes 1 Total 1 Assessment /Plan Problems (1) Thrombosis of arteriovenous fistula Status: Acute Response to Treatment: Stable Problem Specific Plan: Consult Specialist Problem Text: 03/09/19: Surgery for shunt revision is anticipated tomorrow. He is at significant surgical risk, but there are no readily alterable factors to decrease his risk. Therefore I do believe he is medically optimized. 03/08/19: Venous mapping was completed. We await vascular to determine for shunt revision Left sided permacath placed. Will need revision of shunt. A venous mapping study was performed today to help guide the surgeons in determining where to put this shunt. It is not clear when this will happen, but this is the next step. The nephrology nurse was asked as well since she claims his current access for jaun lysis is functioning poorly. (2) Pickwickian syndrome Status: Chronic Response to Treatment: Stable Problem Text: Uses Bipap when sleeping. His super morbid obesity effects many areas of his health including this area. (3) ESRD (end stage renal disease) on dialysis Status: Chronic Response to Treatment: Stable Problem Specific Plan: Consult Specialist Problem Text: 03/09/19: He had dialysis today. This should help and be ready for surgery tomorrow. 03/08/19: Nephrology following. Continue dialysis Wednesday, and Wednesday On dialysis Wednesday (4) Obesity Status: Chronic Response to Treatment: Stable Problem Text: As noted above his morbid obesity negatively affects almost every area of his health. Previous efforts to engage patient cooperation in weight loss was unsuccessful. He refused to allow calorie restriction to help with his weight. (5) Finger wound, simple, open Status: Chronic Response to Treatment: Stable (6) Tracheostomy present Status: Chronic Response to Treatment: Stable Plan/VTE VTE Prophylaxis Ordered?: Yes (subcutaneous heparin) Plan Anticipated Discharge: [facility] Disposition The patient would like to be transferred back to the [facility] on Wednesday, however I don't think this is likely to happen. First because the [facility] rarely takes people on the weekends and second because he may need some additional monitoring after his procedure. We should plan on a Wednesday (03/13) transfer. VS, I&O, 24H, Fishbone Vital Signs/I&O Vital Signs Date Time Temp Pulse Resp B/P (MAP) Pulse Ox O2 Delivery O2 Flow Rate FiO2 03/09/19 15:32 18 03/09/19 14:00 97.6 59 116/65 (82) 99 8.0 35 03/08/19 15:19 Trach Collar I&O- Last 24 Hours up to 6 AM 03/09/19 06:00 Intake Total 2060 ml Output Total 0 ml Balance 2060 ml Laboratory Data 24H LABS Laboratory Tests 2 03/09/19 05:45: Immature Granulocyte % (Auto) 0.4, White Blood Count 7.5, Red Blood Count 3.64L, Hemoglobin 11.9L, Hematocrit 38.4L, Mean Corpuscular Volume 105.5H, Mean Corpuscular Hemoglobin 32.7, Mean Corpuscular Hemoglobin Concent 31.0L, Red Cell Distribution Width 13.8, Platelet Count 110L, Neutrophils (%) (Auto) 52.2, Lymphocytes (%) (Auto) 35.5, Monocytes (%) (Auto) 6.1H, Eosinophils (%) (Auto) 5.3H, Basophils (%) (Auto) 0.5, Neutrophils # (Auto) 3.9, Lymphocytes # (Auto) 2.7, Monocytes # (Auto) 0.5, Eosinophils # (Auto) 0.4, Basophils # (Auto) 0.0, Nucleated Red Blood Cells % (auto) 0.0, Anion Gap 9, Glomerular Filtration Rate 6.5L, Blood Urea Nitrogen 58H, Creatinine 9.33*H, Sodium Level 136, Potassium Level 5.4H, Chloride Level 100, Carbon Dioxide Level 27, Calcium Level 8.4L CBC/BMP Laboratory Tests 03/09/19 05:45 Red Blood Count 3.64 L, Mean Corpuscular Volume 105.5 H, Mean Corpuscular Hemoglobin 32.7, Mean Corpuscular Hemoglobin Concent 31.0 L, Red Cell Distribution Width 13.8, Neutrophils (%) (Auto) 52.2, Lymphocytes (%) (Auto) 35.5, Monocytes (%) (Auto) 6.1 H, Eosinophils (%) (Auto) 5.3 H, Basophils (%) (Auto) 0.5, Neutrophils # (Auto) 3.9, Lymphocytes # (Auto) 2.7, Monocytes # (Auto) 0.5, Eosinophils # (Auto) 0.4, Basophils # (Auto) 0.0, Calcium Level 8.4 L Microbiology Microbiology 03/04/19 Blood Culture - Preliminary, Resulted No Growth after 72 hours. All specime... Devendra Hadley MD March 09, 2019 5:00 pm
[2019-03-09] MEDS: SENOKOT S TAB PO SCH (21:05)
[2019-03-09] MEDS: PRAMIPEXOLE (MIRAPEX) 0.125 MG TAB PO SCH (21:05)
[2019-03-09 22:00] VITALS: BP 98/60
[2019-03-10] VITALS (8 sets, daily range): BP systolic 99–123; BP diastolic 53–70
[2019-03-10] MEDS: ACETAMINOPHEN TAB 650MG DOSE (2X325MG) PO PRN (00:05)
[2019-03-10] MEDS ORDERED: ceFAZolin SOD 1 GM in D5W MINI-BAG PLUS 50 ML IV ONE (06:00)
[2019-03-10] MEDS: HEPARIN SOD (PORCINE) 5000 UNITS/ML VIAL SQ SCH ×3 (06:00→21:18)
[2019-03-10 06:29] LABS: BASO # 0.1 10^3/uL (0.0-0.2); BASO % 0.5 % (0.0-1.0); EOS # 0.4 10^3/uL (0.0-0.50); HEMATOCRIT 42.4 % (42.0-52.0); LYMPH # 2.2 10^3/uL (1.5-4.5); LYMPH % 23.8 % (24.0-44.0); MEAN CORPUSCULAR HEMOGLOBIN 33.5 pg (27.0-33.0); MEAN CORPUSCULAR HGB CONC 30.7 g/dl (32.0-36.5); MEAN CORPUSCULAR VOLUME 109.3 fl (80.0-96.0); MONO # 0.5 10^3/uL (0.0-0.8); MONO % 5.8 % (0.0-5.0); NEUTROPHILS % 65.5 % (36.0-66.0); PLATELET COUNT, AUTOMATED 100 10^3/uL (150-450); RED BLOOD COUNT 3.88 10^6/uL (4.30-6.10); WHITE BLOOD COUNT 9.2 10^3/uL (4.0-10.0)
[2019-03-10 06:37] LABS: INR 1.02; PROTHROMBIN TIME 13.5 SECONDS (12.1-14.4)
[2019-03-10 06:51] LABS: CALCIUM LEVEL 8.8 MG/DL (8.5-10.1); CREATININE FOR GFR 6.98 MG/DL (0.70-1.30); GLOMERULAR FILTRATION RATE 9.1 (>60); POTASSIUM SERUM 4.8 MEQ/L (3.5-5.1)
[2019-03-10] MEDS: IPRATROPIUM 0.5MG/ALBUTEROL 2.5MG INH SOL UD 3ML (DUONEB)(J7620) INH SCH ×2 (06:58→20:42)
--- NOTE | 2019-03-10 07:50 | IPNPDOC ---
Text Note Date of Service The patient was seen on 03/09/19. NOTE Nephrology Service: Subjective: Patient seen and examined at bedside sitting up in bed. Difficult to comprehend his speech. Dr. Ybarra had spoke with him yesterday and he will be having AV fistula revision/thrombolysis surgery tomorrow. Otherwise, he offers no acute complaints. No fevers, chest pain, SOB more than usual, abdominal pain, nausea, vomiting, or diarrhea, constipation. Patient's last hemodialysis was 03/07 with temporary permacath with 3000 mL removed. Dialysis nurse concerned that catheter was not functioning that well. Thus, important for fistula repair to be done soon. Objective: Vitals: T 98 P 55 RR 18 BP 117/56 Pulse Ox: 95% on 8.0 L/min at 35% FiO2 via Trach Collar Intake: 660 ml Output: 0 ml Balance: (+) 1660 ml GENERAL APPEARANCE: Pleasant and cooperative morbidly obese nonverbal adult male sitting in bed in NAD. Awake, alert, oriented x 3. PSYCHIATRIC: Euthymic affect. Normal mood today. No overt signs of depression/ a nxiety. HEENT: NCAT. NECK: Supple. No JVD able to be appreciated due to increased neck circumferen ce/body habitus. RESPIRATORY: Clear to Auscultation bilaterally but diminished bilaterally. No wheezes/rales/rhonchi. CARDIOVASCULAR: Distant heart sounds. Normal S1S2, RRR, no murmurs appreciated. ABDOMEN: Soft, morbidly obese, nontender, nondistended. Normoactive bowel sounds. EXTREMITIES: Trace edema bilateral lower extremities. No clubbing/cyanosis. INTEGUMENTARY: Warm and dry skin. Chronic venous stasis changes noted in lower extremities bilaterally. NEUROLOGICAL: No focal neurologic deficits appreciated on inspection. Laboratory data: CBC: WBC 7.5, Hgb 11.9, Platelets 110 (L) BMP: Na 136 (L), K 5.4, CO2 27, BUN 58, Cr 4.33, Glucose 89 Imaging: No new imaging today. Current Inpatient Medications: Nephro-Shante Rx (Vitamin B Complex/Vitamin C/Folic Acid) 1 tab PO daily Sensipar (Cinacalcet) 90 mg PO daily Carvedilol 6.25 mg PO BID Amiodarone 200 mg PO daily Oxycodone 10 mg PO PRN pain as directed Percocet 5/325 mg PO q6h PRN pain Gabapentin 300 mg PO TID Pramipexole Dihydrochloride (Mirapex) 0.125 mg PO QHS Sevelamer Carbonate (Renvela) 4900 WM PO Drisdol 06060 units PO Fridays No medication changes noted today. Assessment/Plan: 1. End-stage renal disease: Last HD on 03/07 via temporary permacath with 3000 mL removed. Next dialysis will be today with permacath again. However, catheter is not functioning that well as per dialysis nurse. AV fistula needs to be gabriella ed RADHA and according to Dr. Ybarra, this should be scheduled for tomorrow. 2. Nonfunctioning right arm AV fistula with thombosis: This requires surgical intervention for AV fistula repair in RUE by Vascular Surgery. Date and time of revision sometime tomorrow. Patient afebrile. Blood cx have been negative to date. No current signs of infection. Previously treated by Dr. Curtis with vanc omycin for possible infection risk at AV fistula site during this admission. Will continue to monitor for any signs of infection. 3. Hypotension: Improved after given IV fluids initially. BP acceptable at this time. Continue with current antihypertensive regimen. Continue to monitor for hypotension. 4. Hyperkalemia: Still hyperkalemic at 5.4 today. Not severe hyperkalemia. Will monitor for any signs/symptoms of hyperkalemia such as muscle aches/pains, chest pain, arrhythmias. Continue to monitor and continue with dialysis for management at this time. 5. Chronic respiratory failure status-post tracheostomy: on a trach collar at 8L/min with FiO2 35%. Satting 95%. This is baseline. Will monitor for any development of acute decompensation. Keep patient on continuous pulse oximeter. 6. Obstructive sleep apnea: Continue CPAP at night at his out of hospital settings. Patient is a Full Code. My preceptor for this patient encounter was Dr. Narendra Curtis, and was physically present in the building during the encounter and was fully available. As needed, all aspects of the patient interview, examination, medical decision making process, and medical care plan development were reviewed and approved by the preceptor. Preceptor is aware and concurs with the plan as stated in the body of this note and will attest to such by his/her cosignature. A-FIB/CHADSVASC A-FIB History Current/History of A-Fib/PAF?: Yes Current Oral Anticoagulant The: No Age/Risk Factor Scoring CHADSVASC: CHADSVASC Response (Comments) Value Age Risk Factor Age < 65 years old 0 Gender Risk Factor Male 0 Hx of CHF No 0 Hx of HTN No 0 Hx of Stroke/TIA/or VTE No 0 Hx of Diabetes No 0 Hx of Vascular Disease Yes 1 Total 1 VS,Fishbone, I+O VS, Fishbone, I+O Laboratory Tests 03/09/19 05:45 Red Blood Count 3.64 L, Mean Corpuscular Volume 105.5 H, Mean Corpuscular Hemoglobin 32.7, Mean Corpuscular Hemoglobin Concent 31.0 L, Red Cell Distribution Width 13.8, Neutrophils (%) (Auto) 52.2, Lymphocytes (%) (Auto) 3 5.5, Monocytes (%) (Auto) 6.1 H, Eosinophils (%) (Auto) 5.3 H, Basophils (%) (Auto) 0.5, Neutrophils # (Auto) 3.9, Lymphocytes # (Auto) 2.7, Monocytes # (Auto) 0.5, Eosinophils # (Auto) 0.4, Basophils # (Auto) 0.0, Calcium Level 8.4 L Vital Signs Date Time Temp Pulse Resp B/P (MAP) Pulse Ox O2 Delivery O2 Flow Rate FiO2 03/09/19 19:44 Trach Collar 5.0 28 03/09/19 15:32 18 03/09/19 14:00 97.6 59 116/65 (82) 99 I&O- Last 24 Hours up to 6 AM 03/09/19 06:00 Intake Total 2060 ml Output Total 0 ml Balance 2060 ml TOYA SELLERS DO March 09, 2019 20:33
[2019-03-10] MEDS: (RENVELA) SEVELAMER **CARBONate** 800 MG TAB PO SCH ×3 (08:00→18:00)
[2019-03-10] MEDS: NEPHRO-VIT TAB (NEPHROCAPS) PO SCH (08:08)
[2019-03-10] MEDS: DOCUSATE SODIUM 100 MG CAP PO SCH (08:09)
[2019-03-10] MEDS: CINACALCET 30 MG TAB (SENSIPAR) PO SCH (08:10)
[2019-03-10] MEDS: GABAPENTIN 300 MG CAP PO SCH ×3 (08:10→21:19)
[2019-03-10] MEDS: AMIODARONE 200 MG TAB (PACERONE) PO SCH (08:10)
[2019-03-10] MEDS: ESCITALOPRAM OXALATE 10 MG TAB (LEXAPRO) PO SCH (08:10)
[2019-03-10] MEDS: CARVedilol 6.25 MG TAB PO SCH ×2 (08:11→21:20)
[2019-03-10] MEDS: ALBUTEROL SULFATE 2.5 MG/0.5 ML INH NEB SOLN INH PRN ×2 (08:29→11:16)
[2019-03-10] MEDS ORDERED: VITAMIN D 50,000 UNITS CAPSULE (ERGOCALCIFEROL 1.25MG) PO SCH (09:00)
[2019-03-10] MEDS ORDERED: PROPOFOL 200 MG/20 ML VIAL As Ordered ONE ×6 (11:21→16:04)
[2019-03-10] MEDS ORDERED: ROCURONIUM BROMIDE 50 MG/5 ML VIAL As Ordered ONE (11:21)
[2019-03-10] MEDS ORDERED: fentaNYL 250 MCG/5 ML INJECTION (J3010) As Ordered ONE (11:21)
[2019-03-10] MEDS ORDERED: LIDOCAINE 2% INJ 100 MG/5 ML SDV (FOR ANES.) As Ordered ONE (11:21)
[2019-03-10] MEDS ORDERED: MIDAZOLAM INJ 2 MG/2 ML VIAL (J2250) As Ordered ONE (11:21)
[2019-03-10] MEDS ORDERED: HEPARIN SOD (PORCINE) 5000 UNITS/ML VIAL As Ordered ONE ×2 (11:36→15:23)
[2019-03-10] MEDS ORDERED: LIDOCAINE 1% SDV INJ 30 ML VIAL As Ordered ONE (11:36)
[2019-03-10] MEDS ORDERED: BUPIVACAINE HCL 0.5% 30 ML VIAL As Ordered ONE (11:36)
[2019-03-10] MEDS ORDERED: KETAMINE HCL 200 MG/20 ML VIAL As Ordered ONE (12:00)
[2019-03-10] MEDS ORDERED: ALTEPLASE 2 MG/2 ML VIAL (J2997 PER 1MG) IV ONE (12:30)
[2019-03-10] MEDS ORDERED: PHENYLephrine HCL 500 MCG/5 ML (100MCG/ML) SYRINGE (J2370) As Ordered ONE ×2 (13:29→13:40)
[2019-03-10] MEDS ORDERED: ceFAZolin 1GM INJ (J0690 PER 500MG) As Ordered ONE (13:29)
[2019-03-10] MEDS ORDERED: ePHEDrine SULFATE 25 MG/5 ML(5MG/ML) SYRINGE As Ordered ONE ×2 (13:29→15:05)
[2019-03-10] MEDS ORDERED: ceFAZolin 2 GM/D5W 50 ML IV BAG (J0690 PER 500MG) As Ordered ONE (13:29)
--- NOTE | 2019-03-10 15:53 | IPN ---
DATE: 03/10/2019 Mr. Richard is seen this morning on his bedside. He is scheduled for operating room (OR) today for right arm arteriovenous (AV) fistula declotting. He is nothing by mouth this morning. He reports some shortness of breath. There is no fever or chills. He denies any nausea or vomiting. He was dialyzed yesterday. He remains on trach collar for chronic respiratory failure. PHYSICAL EXAMINATION: Temperature 98.0 degrees Fahrenheit, heart rate 60 per minute, respiratory rate 19 per minute, blood pressure 106/70 mm of mercury, and oxygen saturation 94%. His head is atraumatic. Tracheostomy is in place, and he is using oxygen via trach collar. He is edentulous and without any thrush or ulcers. Heart sounds are regular, and lungs with diminished breath sounds due to morbid obesity. Abdomen is soft and morbidly obese. Bowel sounds are present. Extremities have no cyanosis or clubbing. Right forearm AV fistula is partially open and partially thrombosed. Neurologically, he is at his baseline mentation. Today's labs show WBC count 9.2, hemoglobin 13.0, hematocrit 42.4. Sodium 136, potassium 4.8, CO2 of 26, BUN 41, and creatinine 6.98. Calcium level is 8.8. PROBLEMS: 1. End-stage renal disease. The patient was dialyzed yesterday, and next dialysis will be scheduled for tomorrow morning. Volume status is reasonably well compensated. 2. Hyperkalemia related to end-stage renal disease and has improved and corrected. No intervention is indicated today. We will recheck his electrolytes tomorrow. 3. Clotted right forearm AV fistula. The patient is scheduled for surgery today, and he is nothing by mouth at present. He has been afebrile with negative blood cultures. Currently, we are using Perm-A-Cath for dialysis. 4. Respiratory failure. This chronic and unchanged, and he remains on oxygen via trach collar.
--- NOTE | 2019-03-10 17:53 | ROOPDOC ---
[facility] Report Of Operation Report of Operation DATE OF PROCEDURE: 03/10/19 PREPROCEDURE DIAGNOSES: End-stage renal disease on hemodialysis with thrombosis of right radiocephalic AV fistula POSTPROCEDURE DIAGNOSES: Same PROCEDURE: 1. Open thrombectomy right radiocephalic AV fistula 2. Patch angioplasty right cephalic vein stenosis SURGEON: Jordyn Ybarra MD ANESTHESIA: Local and monitored anesthesia care INDICATION FOR PROCEDURE: Mr. Richard is a very pleasant 48-year-old gentleman with morbid obesity and extensive medical comorbidities who was admitted a week ago with right upper extremity radiocephalic AV fistula thrombosis. He underwent placement of the left IJ PermCath and has been dialyzing with this while we plan rodolfo for new access. His PermCath is not working extremely well and is sometimes positional, thus we did not want to try a new access that would require extended time for maturation. We therefore discussed with the patient several options for today, the first of which was a right upper extremity open thrombectomy in order that we might revise the thrombosed area rather than try to treat endovascularly. He was a risky candidate for an endovascular procedure for several reasons: The fistula is largely an aneurysmal and would require significant TPA for thrombolysis and I don't believe this will completely clear the clot, and it puts him at some bleeding risk with his recent PermCath placement. Additionally, we do not have good imaging to provide angioplasty for any stenoses that are limiting her outflow and resulted in the thrombosis in the first place, and the weight of the patient precludes a procedure in our interventional radiology suite. I discussed with the patient that I am not 100% that I can provide a long-term solution with an open thrombectomy, but it may get his through this acute period and then we can talk about planning for new access. We also discussed other options as well as including a forearm loop graft in new PermCath etc. The patient was extensively counseled and all questions were answered. Informed consent was obtained. PROCEDURE: The patient was brought to the OR in stable condition and placed supine on the OR table. Monitored anesthesia care and antibiotics were administered without consultation. His right upper extremity was prepped and draped in a sterile fashion. A timeout was performed. Ultrasound was used to examine the fistula. There was still some flow within the aneurysmal segment and the outflow for this with some collateral branches. There was stenosis and thickening of the vein noted in the area of thrombosis and we marked this at the skin and in order to make her incision here for the thrombectomy. Local anesthesia was administered to the skin and subcutaneous tissue. A transverse incision was made over the cephalic vein approximately 10 cm distal to the antecubital crease. A careful dissection proceeded down to the vein. There was dense scar tissue in the area and this was carefully dissected with sharp dissection. Collateral branch veins were preserved when able, or clipped and ligated. Great care was taken to dissect the cephalic vein from the dense scar tissue in this area. This appears to be an area of frequent venous dialysis needle cannulation, which would explain a lot of the scar tissue. Once we had the vein circumferentially dissected, vessel loops were placed proximally and distally. The vessel loops were secured, and a transverse incision was made in the vein. Thrombus was noted. A 6 Aidan balloon catheter was advanced proximally and distally to remove thrombus and restore inflow and outflow. A large amount of thrombus was removed. We had fairly good inflow in fairly good outflow, not quite as good as I expected. Both aspects were flushed with heparinized saline and the transverse incision was closed with a running 5-0 Prolene suture. Upon restoring flow, the Doppler signal distal to our venotomy sounded arterial indicating stenosis. We therefore dissected more distally on the vein into the forearm and placed or vascular loop a little more distally. We this time made a longitudinal incision over the vein in the area of suspected stenosis. We found that the vein was extremely thickened for approximately 2 cm with a very small lumen. We also found new thrombus forming already upon opening the vein. We therefore performed another proximal and distal thrombectomy and flushed with heparinized saline. We then selected a bovine carotid patch and performed a running anastomosis of the patch to the venotomy with a 5-0 Prolene hemostatic suture. Before the final sutures are placed, we again passed our Aidan proximally and distally. No additional thrombus was noted and we placed her final sutures after irrigating with heparinized saline. Upon restoring flow, there definitely was an improvement in the area of patch angioplasty, but overall the flow was still too sluggish. I felt there was likely an area p roximally with residual thrombus that we had not yet cleared, therefore we again secured the Vesseloops and a more proximal transverse incision was made in the vein. This time, upon passing the Aidan balloon, we were able to go more distally than before and we removed the last of the thrombus with excellent inflow. We also were able to go a little farther into the outflow and the last of the proximal thrombus was also removed to provide better backbleeding and better outflow. There also was some intimal hyperplasia in this area which we carefully removed. Heparinized saline was used to irrigate and we closed her sternotomy with a running 5-0 Prolene suture. When flow was restored we had excellent unobstructed flow on Doppler and a great thrill over the distal segment of the vein. We irrigated our incision with normal saline. The deep tissues were reapproximated with Vicryl sutures. The deep dermal layer was reapproximated with a running 4-0 Vicryl suture. The skin was closed with a running subcuticular 4-0 Monocryl suture. The skin was clean and dry. Mastisol and Steri-Strips were used to dress the wound. The patient was allowed to awaken from anesthesia and was taken to PACU in stable condition. After a short recovery he will proceed to dialysis for one h our run of dialysis to make sure we clear any additional clot present in the fistula and diminish the risk of rethrombosis overnight. ESTIMATED BLOOD LOSS: Approximately 500 mL. COMPLICATIONS: None. PLAN: I'm hopeful that this procedure will salvage his right upper extremity access long-term, but my fear is that there still may be another area of stenosis that we did not treat today. Once we are able to perform better imaging, I would like to do a fistulogram and see if there are any other areas that require angioplasty or intervention. I did look at his left upper extremity with ultrasound before the case in case we needed to do a new access today, and I cephalic vein was small and stenotic and there were at least 5 or 6 attempts for placement of peripheral IV that may have damaged the vein for use at this time. The basilic vein is suboptimal due to depth, and risk of transposition with patient's obesity. There certainly are no easy options for this patient and if we can maintain patency of his radiocephalic fistula, we definitely would prefer to do so. I do not plan to remove his PermCath prior to discharge. I would like to keep in place for a few weeks to see how he does with his AV fistula before removing it (it was extremely difficult to place.) JORDYN YBARRA MD March 10, 2019 17:02
[2019-03-10] MEDS: SENOKOT S TAB PO SCH (21:19)
[2019-03-10] MEDS: PRAMIPEXOLE (MIRAPEX) 0.125 MG TAB PO SCH (21:19)
[2019-03-11] MEDS: ALBUTEROL SULFATE 2.5 MG/0.5 ML INH NEB SOLN INH PRN ×3 (00:10→16:46)
[2019-03-11 06:00] VITALS: BP 133/74
[2019-03-11] MEDS: NEPHRO-VIT TAB (NEPHROCAPS) PO SCH (06:27)
[2019-03-11] MEDS: CINACALCET 30 MG TAB (SENSIPAR) PO SCH (06:27)
[2019-03-11] MEDS: GABAPENTIN 300 MG CAP PO SCH ×3 (06:28→21:30)
[2019-03-11] MEDS: AMIODARONE 200 MG TAB (PACERONE) PO SCH (06:28)
[2019-03-11] MEDS: ESCITALOPRAM OXALATE 10 MG TAB (LEXAPRO) PO SCH (06:28)
[2019-03-11] MEDS: DOCUSATE SODIUM 100 MG CAP PO SCH (06:28)
[2019-03-11] MEDS: CARVedilol 6.25 MG TAB PO SCH ×2 (06:29→21:00)
[2019-03-11] MEDS: HEPARIN SOD (PORCINE) 5000 UNITS/ML VIAL SQ SCH ×3 (06:29→21:27)
[2019-03-11 06:53] LABS: BASO # 0.1 10^3/uL (0.0-0.2); BASO % 0.6 % (0.0-1.0); EOS # 0.3 10^3/uL (0.0-0.50); EOS % 4.1 % (0.0-3.0); HEMATOCRIT 37.6 % (42.0-52.0); HEMOGLOBIN 11.8 g/dl (13.5-17.5); LYMPH # 2.1 10^3/uL (1.5-4.5); LYMPH % 25.4 % (24.0-44.0); MEAN CORPUSCULAR HEMOGLOBIN 33.7 pg (27.0-33.0); MEAN CORPUSCULAR HGB CONC 31.4 g/dl (32.0-36.5); MEAN CORPUSCULAR VOLUME 107.4 fl (80.0-96.0); MONO # 0.5 10^3/uL (0.0-0.8); MONO % 6.4 % (0.0-5.0); NEUTROPHILS # 5.1 10^3/uL (1.8-7.7); NEUTROPHILS % 62.8 % (36.0-66.0); PLATELET COUNT, AUTOMATED 103 10^3/uL (150-450); WHITE BLOOD COUNT 8.1 10^3/uL (4.0-10.0)
[2019-03-11] MEDS: IPRATROPIUM 0.5MG/ALBUTEROL 2.5MG INH SOL UD 3ML (DUONEB)(J7620) INH SCH ×2 (07:18→21:04)
[2019-03-11 07:21] LABS: CREATININE FOR GFR 7.23 MG/DL (0.70-1.30); GLOMERULAR FILTRATION RATE 8.7 (>60)
[2019-03-11] MEDS: (RENVELA) SEVELAMER **CARBONate** 800 MG TAB PO SCH ×3 (07:33→17:00)
[2019-03-11] MEDS: oxyCODONE 5MG TAB PO PRN (10:23)
--- NOTE | 2019-03-11 11:40 | IPNPDOC ---
Date Seen The patient was seen on 03/11/19. Progress Note Pt seen and examined in dialysis. Doing well POD #1 s/p open RUE AVF thrombectomy and revision. Per RN, he is running well and no issues last night or today. He has a little bruising in areas of dissection around the incision, but otherwise the incision is c/d/i and good thrill over AVF. Continue using AVF as able. Will d/c permcath in a few weeks if no issues arise. Pt agreeable to plan. VS, I&O, 24H, Fishbone Vital Signs/I&O Vital Signs Date Time Temp Pulse Resp B/P (MAP) Pulse Ox O2 Delivery O2 Flow Rate FiO2 03/11/19 10:53 18 03/11/19 08:20 8.0 35 03/11/19 08:10 97.2 62 93 03/11/19 06:29 134/65 03/11/19 00:10 Trach Collar I&O- Last 24 Hours up to 6 AM 03/11/19 09:00 Intake Total 1240 ml Output Total 1500 ml Balance -260 ml Laboratory Data 24H LABS Laboratory Tests 2 03/11/19 06:38: Immature Granulocyte % (Auto) 0.7, White Blood Count 8.1, Red Blood Count 3.50L, Hemoglobin 11.8L, Hematocrit 37.6L, Mean Corpuscular Volume 107.4H, Mean Corpuscular Hemoglobin 33.7H, Mean Corpuscular Hemoglobin Concent 31.4L, Red Cell Distribution Width 13.8, Platelet Count 103L, Neutrophils (%) (Auto) 62.8, Lymphocytes (%) (Auto) 25.4, Monocytes (%) (Auto) 6.4H, Eosinophils (%) (Auto) 4.1H, Basophils (%) (Auto) 0.6, Neutrophils # (Auto) 5.1, Lymphocytes # (Auto) 2.1, Monocytes # (Auto) 0.5, Eosinophils # (Auto) 0.3, Basophils # (Auto) 0.1, Nucleated Red Blood Cells % (auto) 0.0, Anion Gap 9, Glomerular Filtration Rate 8.7L, Blood Urea Nitrogen 45H, Creatinine 7.23H, Sodium Level 134L, Potassium Level 5.0, Chloride Level 98, Carbon Dioxide Level 27, Calcium Level 8.0L CBC/BMP Laboratory Tests 03/11/19 06:38 Red Blood Count 3.50 L, Mean Corpuscular Volume 107.4 H, Mean Corpuscular Hemoglobin 33.7 H, Mean Corpuscular Hemoglobin Concent 31.4 L, Red Cell Distribution Width 13.8, Neutrophils (%) (Auto) 62.8, Lymphocytes (%) (Auto) 25.4, Monocytes (%) (Auto) 6.4 H, Eosinophils (%) (Auto) 4.1 H, Basophils (%) (Auto) 0.6, Neutrophils # (Auto) 5.1, Lymphocytes # (Auto) 2.1, Monocytes # (Auto) 0.5, Eosinophils # (Auto) 0.3, Basophils # (Auto) 0.1, Calcium Level 8.0 L Microbiology Microbiology 03/04/19 Blood Culture - Final, Complete NO GROWTH AFTER 5 DAYS PRIYANKA CUMMINS MD March 11, 2019 11:40
--- NOTE | 2019-03-11 12:15 | IPNPDOC ---
Subjective Date Seen The patient was seen on 03/10/19. Subjective Chief Complaint/HPI Matthew was seen today in dialysis after his procedure. I spoke with Dr. Galan who reports that she was successful in creating another L arm fistula although it sounds as if the procedure was complicated. He still has his old dialysis access in while this one heals. Constitutional: Denies: Chills, Fever Pulmonary: Denies: Dyspnea, Cough Psych: Reports: Mood Normal Objective Physical Examination General Exam: Positive: Cooperative (laying flat on his bed in dialysis), No Acute Distress; Negative: Alert (he seems a little groggy, probably from anesthesia) Eye Exam: Positive: Conjunctiva & lids normal; Negative: Sclera icteric ENT Exam: Positive: Mucous membr. moist/pink Neck Exam: Positive: Other (trach in place with mask) Chest Exam: Positive: Clear to auscultation, Diminished Heart Exam: Positive: Rate Normal, Regular Rhythm; Negative: Murmurs Abdomen Exam: Positive: Normal bowel sounds, Soft; Negative: Tenderness Extremity Exam: Negative: Edema A-FIB/CHADSVASC A-FIB History Current/History of A-Fib/PAF?: No Age/Risk Factor Scoring CHADSVASC: CHADSVASC Response (Comments) Value Age Risk Factor Age < 65 years old 0 Gender Risk Factor Male 0 Hx of CHF No 0 Hx of HTN No 0 Hx of Stroke/TIA/or VTE No 0 Hx of Diabetes No 0 Hx of Vascular Disease Yes 1 Total 1 Assessment /Plan Problems (1) Thrombosis of arteriovenous fistula Status: Acute Response to Treatment: Stable Problem Specific Plan: Consult Specialist Problem Text: 03/10/19: His surgery was done today. He is spending time on dialysis right now to filter some of the clot that may have been released. 03/09/19: Surgery for shunt revision is anticipated tomorrow. He is at significant surgical risk, but there are no readily alterable factors to decrease his risk. Therefore I do believe he is medically optimized. 03/08/19: Venous mapping was completed. We await vascular to determine for shunt revision Left sided permacath placed. Will need revision of shunt. A venous mapping study was performed today to help guide the surgeons in determining where to put this shunt. It is not clear when this will happen, but this is the next step. The nephrology nurse was asked as well since she claims his current access for dialysis is functioning poorly. (2) Pickwickian syndrome Status: Chronic Response to Treatment: Stable Problem Text: Uses Bipap when sleeping. His super morbid obesity effects many areas of his health including this area. (3) ESRD (end stage renal disease) on dialysis Status: Chronic Response to Treatment: Stable Problem Specific Plan: Consult Specialist Problem Text: 03/10/19: He will be receiving a full dialysis tomorrow, but today he is having a brief session to filter out any released clot. 03/09/19: He had dialysis today. This should help and be ready for surgery tomorrow. 03/08/19: Nephrology following. Continue dialysis Wednesday, and Wednesday On dialysis Wednesday (4) Obesity Status: Chronic Response to Treatment: Stable Problem Text: As noted above his morbid obesity negatively affects almost every area of his health. Previous efforts to engage patient cooperation in weight loss was unsuccessful. He refused to allow calorie restriction to help with his weight. (5) Finger wound, simple, open Status: Chronic Response to Treatment: Stable Problem Text: This has been healing well, but we should continue to look at it on a regular basis. (6) Tracheostomy present Status: Chronic Response to Treatment: Stable Plan/VTE VTE Prophylaxis Ordered?: Yes (subcutaneous heparin) Plan Anticipated Discharge: [facility], I&O, 24H, [facility] Vital Signs/I&O Vital Signs Date Time Temp Pulse Resp B/P (MAP) Pulse Ox O2 Delivery O2 Flow Rate FiO2 03/11/19 10:53 18 03/11/19 08:20 8.0 35 03/11/19 08:10 97.2 62 93 03/11/19 06:29 134/65 03/11/19 00:10 Trach Collar I&O- Last 24 Hours up to 6 AM 03/11/19 06:00 Intake Total 1120 ml Output Total 1500 ml Balance -380 ml Laboratory Data 24H LABS Laboratory Tests 2 03/11/19 06:38: Immature Granulocyte % (Auto) 0.7, White Blood Count 8.1, Red Blood Count 3.50L, Hemoglobin 11.8L, Hematocrit 37.6L, Mean Corpuscular Volume 107.4H, Mean Corpuscular Hemoglobin 33.7H, Mean Corpuscular Hemoglobin Concent 31.4L, Red Cell Distribution Width 13.8, Platelet Count 103L, Neutrophils (%) (Auto) 62.8, Lymphocytes (%) (Auto) 25.4, Monocytes (%) (Auto) 6.4H, Eosinophils (%) (Auto) 4.1H, Basophils (%) (Auto) 0.6, Neutrophils # (Auto) 5.1, Lymphocytes # (Auto) 2.1, Monocytes # (Auto) 0.5, Eosinophils # (Auto) 0.3, Basophils # (Auto) 0.1, Nucleated Red Blood Cells % (auto) 0.0, Anion Gap 9, Glomerular Filtration Rate 8.7L, Blood Urea Nitrogen 45H, Creatinine 7.23H, Sodium Level 134L, Potassium Level 5.0, Chloride Level 98, Carbon Dioxide Level 27, Calcium Level 8.0L CBC/BMP Laboratory Tests 03/11/19 06:38 Red Blood Count 3.50 L, Mean Corpuscular Volume 107.4 H, Mean Corpuscular Hemoglobin 33.7 H, Mean Corpuscular Hemoglobin Concent 31.4 L, Red Cell Distribution Width 13.8, Neutrophils (%) (Auto) 62.8, Lymphocytes (%) (Auto) 25.4, Monocytes (%) (Auto) 6.4 H, Eosinophils (%) (Auto) 4.1 H, Basophils (%) (Auto) 0.6, Neutrophils # (Auto) 5.1, Lymphocytes # (Auto) 2.1, Monocytes # (Auto) 0.5, Eosinophils # (Auto) 0.3, Basophils # (Auto) 0.1, Calcium Level 8.0 L Microbiology Microbiology 03/04/19 Blood Culture - Final, Complete NO GROWTH AFTER 5 DAYS Devendra Hadley MD March 11, 2019 12:15
--- NOTE | 2019-03-11 12:16 | IPNPDOC ---
Text Note Date of Service The patient was seen on 03/11/19. NOTE Nephrology Service: Subjective: Patient seen and examined in dialysis receiving dialysis in RUE AV fistula site. Status-post AV fistula revision/declotting thrombolysis surgery on 03/10 POD #1. Is having some understandable 7-8/10 pain in his RUE AV fistula repair site. Also reports his trach collar is a bit clogged and needs to be cleaned. Otherwise, he offers no acute complaints. No fevers, chest pain, SOB more than usual, abdominal pain, nausea, vomiting, or diarrhea, constipation. Patient's last hemodialysis was 03/10 with temporary permacath with 1000 mL removed. Objective: Vitals: T 97.2 P 62 RR 18 BP 134/65 Pulse Ox: 93% on 8.0 L/min at 35% FiO2 via Trach Collar Intake: 1020 ml Output: 1500 ml Balance: (-) 480 ml GENERAL APPEARANCE: Pleasant and cooperative morbidly obese nonverbal adult male lying in dialysis bed in NAD. Awake, alert, oriented x 3. PSYCHIATRIC: Euthymic affect. Normal mood today. No overt signs of depression/ anxiety. HEENT: NCAT. NECK: Supple. No JVD able to be appreciated due to increased neck circumference/body habitus. RESPIRATORY: Clear to Auscultation bilaterally but diminished bilaterally. No wheezes/rales/rhonchi. CARDIOVASCULAR: Distant heart sounds. Normal S1S2, RRR, no murmurs appreciated. ABDOMEN: Soft, morbidly obese, nontender, nondistended. Hypoactive bowel sounds. EXTREMITIES: Trace edema bilateral lower extremities. No clubbing/cyanosis. INTEGUMENTARY: Warm and dry skin. Chronic venous stasis changes noted in lower extremities bilaterally. NEUROLOGICAL: No focal neurologic deficits appreciated on inspection. Laboratory data: CBC: WBC 8.1, Hgb 11.8, Platelets 103 (L) BMP: Na 134 (L), K 5.0, CO2 27, BUN 45, Cr 7.23, Glucose 101, GFR: 8.7 Imaging: No new imaging today. Current Inpatient Medications: Nephro-Shante Rx (Vitamin B Complex/Vitamin C/Folic Acid) 1 tab PO daily Sensipar (Cinacalcet) 90 mg PO daily Carvedilol 6.25 mg PO BID Amiodarone 200 mg PO daily Oxycodone 10 mg PO PRN pain as directed Percocet 5/325 mg PO q6h PRN pain Gabapentin 300 mg PO TID Pramipexole Dihydrochloride (Mirapex) 0.125 mg PO QHS Sevelamer Carbonate (Renvela) 4900 WM PO Drisdol 34327 units PO Fridays No medication changes noted today. Assessment/Plan: 1. End-stage renal disease: Last HD on 03/10 via temporary permacath with 1000 mL removed. Having dialysis this morning with his RUE AV fistula currently. the Permacath will be left in place for a couple of weeks until AV fistula fully heals and is consistently working good. Otherwise, patient doing well post- surgically and dialysis nurse had no acute concerns. Will continue to monitor for any signs of infection. 2. Nonfunctioning right arm AV fistula with thombosis: Status-post RUE AV fistula declotting thrombolysis on 03/10 post-operative day #1. AVF functioning well in dialysis this morning. Will continue dialyzing using this fistula now. 3. Hypotension: Improved. BP acceptable at this time. Continue with current antihypertensive regimen. Continue to monitor for hypotension. 4. Hyperkalemia: K WNL today at 5.0. Will monitor for any signs/symptoms of hyperkalemia such as muscle aches/pains, chest pain, arrhythmias. Continue to monitor and continue with dialysis for management at this time. 5. Chronic respiratory failure status-post tracheostomy: on a trach collar at 8L/min with FiO2 35%. Satting 95%. This is baseline. Will monitor for any development of acute decompensation. Keep patient on continuous pulse oximeter. In addition, patient c/o trach collar getting clogged. Today, nurse was cleaning it. 6. Obstructive sleep apnea: Continue CPAP at night at his out of hospital settings. Patient is a Full Code. My preceptor for this patient encounter was Dr. Narendra Curtis, and was physically present in the building during the encounter and was fully available. As needed, all aspects of the patient interview, examination, medical decision making process, and medical care plan development were reviewed and approved by the preceptor. Preceptor is aware and concurs with the plan as stated in the farheen dy of this note and will attest to such by his/her cosignature. A-FIB/CHADSVASC A-FIB History Current/History of A-Fib/PAF?: Yes Current Oral Anticoagulant The: No (History of developing perinephric hematoma) Age/Risk Factor Scoring CHADSVASC: CHADSVASC Response (Comments) Value Age Risk Factor Age < 65 years old 0 Gender Risk Factor Male 0 Hx of CHF No 0 Hx of HTN No 0 Hx of Stroke/TIA/or VTE No 0 Hx of Diabetes No 0 Hx of Vascular Disease Yes 1 Total 1 VS,Fishbone, I+O VS, Fishbone, I+O Laboratory Tests 03/11/19 06:38 Red Blood Count 3.50 L, Mean Corpuscular Volume 107.4 H, Mean Corpuscular Hemoglobin 33.7 H, Mean Corpuscular Hemoglobin Concent 31.4 L, Red Cell Distribution Width 13.8, Neutrophils (%) (Auto) 62.8, Lymphocytes (%) (Auto) 25.4, Monocytes (%) (Auto) 6.4 H, Eosinophils (%) (Auto) 4.1 H, Basophils (%) (Auto) 0.6, Neutrophils # (Auto) 5.1, Lymphocytes # (Auto) 2.1, Monocytes # (Auto) 0.5, Eosinophils # (Auto) 0.3, Basophils # (Auto) 0.1, Calcium Level 8.0 L Vital Signs Date Time Temp Pulse Resp B/P (MAP) Pulse Ox O2 Delivery O2 Flow Rate FiO2 03/11/19 10:53 18 03/11/19 08:20 8.0 35 03/11/19 08:10 97.2 62 93 03/11/19 06:29 134/65 03/11/19 00:10 Trach Collar I&O- Last 24 Hours up to 6 AM 03/11/19 06:00 Intake Total 1120 ml Output Total 1500 ml Balance -380 ml TOYA SELLERS DO March 11, 2019 12:16
[2019-03-11 14:00] VITALS: BP 101/52
--- NOTE | 2019-03-11 17:29 | IPNPDOC ---
Subjective Date Seen The patient was seen on 03/11/19. Subjective Chief Complaint/HPI Seen on [address], appeared comfortable, resting in bed with trache, denied any complaints. He has some bruising on his R arm from recent fistula procedure, denies discomfort. Constitutional: Denies: Chills, Fever Pulmonary: Denies: Dyspnea, Cough Cardiovascular: Denies: Chest Pain, Palpitations Gastrointestinal: Denies: Nausea, Vomiting, Diarrhea, Constipation Hematologic: Reports: Bruising (related to recent procedure) Objective Physical Examination General Exam: Positive: Alert, Cooperative, No Acute Distress Eye Exam: Positive: Conjunctiva & lids normal; Negative: Sclera icteric ENT Exam: Positive: Mucous membr. moist/pink Neck Exam: Positive: Other (trach in place with mask) Chest Exam: Positive: Clear to auscultation, Diminished Heart Exam: Positive: Rate Normal, Regular Rhythm; Negative: Murmurs Abdomen Exam: Positive: Normal bowel sounds, Soft; Negative: Tenderness Extremity Exam: Positive: Swelling (some swelling and bruising consistent with recent fistula procedure); Negative: Edema A-FIB/CHADSVASC A-FIB History Current/History of A-Fib/PAF?: No Age/Risk Factor Scoring CHADSVASC: CHADSVASC Response (Comments) Value Age Risk Factor Age < 65 years old 0 Gender Risk Factor Male 0 Hx of CHF No 0 Hx of HTN No 0 Hx of Stroke/TIA/or VTE No 0 Hx of Diabetes No 0 Hx of Vascular Disease Yes 1 Total 1 Assessment /Plan Problems (1) Thrombosis of arteriovenous fistula Status: Acute Response to Treatment: Stable Problem Specific Plan: Consult Specialist Problem Text: 03/11: Doing well after his procedure. 03/10/19: His surgery was done today. He is spending time on dialysis right now to filter some of the clot that may have been released. 03/09/19: Surgery for shunt revision is anticipated tomorrow. He is at significant surgical risk, but there are no readily alterable factors to decrease his risk. Therefore I do believe he is medically optimized. 03/08/19: Venous mapping was completed. We await vascular to determine for shunt revision Left sided permacath placed. Will need revision of shunt. A venous mapping study was performed today to help guide the surgeons in determining where to put this shunt. It is not clear when this will happen, but this is the next step. The nephrology nurse was asked as well since she claims his current access for dialysis is functioning poorly. (2) Pickwickian syndrome Status: Chronic Response to Treatment: Stable Problem Text: Uses Bipap when sleeping. His super morbid obesity effects many areas of his health including this area. (3) ESRD (end stage renal disease) on dialysis Status: Chronic Response to Treatment: Stable Problem Specific Plan: Consult Specialist Problem Text: 03/10/19: He will be receiving a full dialysis tomorrow, but today he is having a brief session to filter out any released clot. 03/09/19: He had dialysis today. This should help and be ready for surgery tomorrow. 03/08/19: Nephrology following. Continue dialysis Wednesday, and Wednesday On dialysis Wednesday (4) Obesity Status: Chronic Response to Treatment: Stable Problem Text: As noted above his morbid obesity negatively affects almost every area of his health. Previous efforts to engage patient cooperation in weight loss was unsuccessful. He refused to allow calorie restriction to help with his weight. (5) Finger wound, simple, open Status: Chronic Response to Treatment: Stable Problem Text: This has been healing well, but we should continue to look at it on a regular basis. (6) Tracheostomy present Status: Chronic Response to Treatment: Stable Plan/VTE VTE Prophylaxis Ordered?: Yes (subcutaneous heparin) Plan Anticipated Discharge: [facility] VS, I&O, 24H, Fishbone Vital Signs/I&O Vital Signs Date Time Temp Pulse Resp B/P (MAP) Pulse Ox O2 Delivery O2 Flow Rate FiO2 03/11/19 14:00 97.6 67 18 101/52 (68) 97 8.0 35 03/11/19 00:10 Trach Collar I&O- Last 24 Hours up to 6 AM 03/11/19 05:59 Intake Total 1020 ml Output Total 1500 ml Balance -480 ml Laboratory Data 24H LABS Laboratory Tests 2 03/11/19 06:38: Immature Granulocyte % (Auto) 0.7, White Blood Count 8.1, Red Blood Count 3.50L, Hemoglobin 11.8L, Hematocrit 37.6L, Mean Corpuscular Volume 107.4H, Mean Corpuscular Hemoglobin 33.7H, Mean Corpuscular Hemoglobin Concent 31.4L, Red Cell Distribution Width 13.8, Platelet Count 103L, Neutrophils (%) (Auto) 62.8, Lymphocytes (%) (Auto) 25.4, Monocytes (%) (Auto) 6.4H, Eosinophils (%) (Auto) 4.1H, Basophils (%) (Auto) 0.6, Neutrophils # (Auto) 5.1, Lymphocytes # (Auto) 2.1, Monocytes # (Auto) 0.5, Eosinophils # (Auto) 0.3, Basophils # (Auto) 0.1, Nucleated Red Blood Cells % (auto) 0.0, Anion Gap 9, Glomerular Filtration Rate 8.7L, Blood Urea Nitrogen 45H, Creatinine 7.23H, Sodium Level 134L, Potassium Level 5.0, Chloride Level 98, Carbon Dioxide Level 27, Calcium Level 8.0L CBC/BMP Laboratory Tests 03/11/19 06:38 Red Blood Count 3.50 L, Mean Corpuscular Volume 107.4 H, Mean Corpuscular Hemoglobin 33.7 H, Mean Corpuscular Hemoglobin Concent 31.4 L, Red Cell Distribution Width 13.8, Neutrophils (%) (Auto) 62.8, Lymphocytes (%) (Auto) 25.4, Monocytes (%) (Auto) 6.4 H, Eosinophils (%) (Auto) 4.1 H, Basophils (%) (Auto) 0.6, Neutrophils # (Auto) 5.1, Lymphocytes # (Auto) 2.1, Monocytes # (Auto) 0.5, Eosinophils # (Auto) 0.3, Basophils # (Auto) 0.1, Calcium Level 8.0 L Microbiology Microbiology 03/04/19 Blood Culture - Final, Complete NO GROWTH AFTER 5 DAYS MARCOS ROTHMAN DO March 11, 2019 17:29
[2019-03-11] MEDS: PRAMIPEXOLE (MIRAPEX) 0.125 MG TAB PO SCH (21:27)
[2019-03-11] MEDS: PERCOCET 5MG/325MG TAB PO PRN (21:29)
[2019-03-11] MEDS: SENOKOT S TAB PO SCH (21:29)
[2019-03-11 22:00] VITALS: BP 95/50
[2019-03-12] VITALS: BP 92/51
[2019-03-12] MEDS: ALBUTEROL SULFATE 2.5 MG/0.5 ML INH NEB SOLN INH PRN ×3 (03:44→23:27)
[2019-03-12 06:00] VITALS: BP 109/56
[2019-03-12] MEDS: HEPARIN SOD (PORCINE) 5000 UNITS/ML VIAL SQ SCH ×3 (06:07→21:16)
[2019-03-12 06:16] LABS: BASO # 0.1 10^3/uL (0.0-0.2); BASO % 0.6 % (0.0-1.0); EOS # 0.3 10^3/uL (0.0-0.50); EOS % 4.1 % (0.0-3.0); HEMATOCRIT 37.1 % (42.0-52.0); HEMOGLOBIN 11.6 g/dl (13.5-17.5); LYMPH # 2.9 10^3/uL (1.5-4.5); LYMPH % 34.4 % (24.0-44.0); MEAN CORPUSCULAR HEMOGLOBIN 33.7 pg (27.0-33.0); MEAN CORPUSCULAR HGB CONC 31.3 g/dl (32.0-36.5); MEAN CORPUSCULAR VOLUME 107.8 fl (80.0-96.0); MONO # 0.7 10^3/uL (0.0-0.8); MONO % 8.1 % (0.0-5.0); NEUTROPHILS # 4.4 10^3/uL (1.8-7.7); NEUTROPHILS % 52.3 % (36.0-66.0); PLATELET COUNT, AUTOMATED 126 10^3/uL (150-450); RED BLOOD COUNT 3.44 10^6/uL (4.30-6.10); WHITE BLOOD COUNT 8.4 10^3/uL (4.0-10.0)
[2019-03-12 06:44] LABS: CALCIUM LEVEL 8.5 MG/DL (8.5-10.1); CREATININE FOR GFR 5.56 MG/DL (0.70-1.30); GLOMERULAR FILTRATION RATE 11.8 (>60); POTASSIUM SERUM 4.1 MEQ/L (3.5-5.1)
[2019-03-12] MEDS: IPRATROPIUM 0.5MG/ALBUTEROL 2.5MG INH SOL UD 3ML (DUONEB)(J7620) INH SCH ×2 (07:23→19:58)
[2019-03-12] MEDS: NEPHRO-VIT TAB (NEPHROCAPS) PO SCH (08:19)
[2019-03-12] MEDS: (RENVELA) SEVELAMER **CARBONate** 800 MG TAB PO SCH ×3 (08:19→17:01)
[2019-03-12] MEDS: CINACALCET 30 MG TAB (SENSIPAR) PO SCH (08:19)
[2019-03-12] MEDS: AMIODARONE 200 MG TAB (PACERONE) PO SCH (08:20)
[2019-03-12] MEDS: ESCITALOPRAM OXALATE 10 MG TAB (LEXAPRO) PO SCH (08:20)
[2019-03-12] MEDS: CARVedilol 6.25 MG TAB PO SCH ×2 (08:20→21:17)
[2019-03-12] MEDS: GABAPENTIN 300 MG CAP PO SCH ×3 (08:20→21:17)
[2019-03-12] MEDS: DOCUSATE SODIUM 100 MG CAP PO SCH (08:20)
[2019-03-12] MEDS: PERCOCET 5MG/325MG TAB PO PRN ×2 (12:55→21:18)
[2019-03-12 14:00] VITALS: BP 117/60
--- NOTE | 2019-03-12 15:01 | IPN ---
DATE: 03/12/2019 SUBJECTIVE: Matthew is seen and examined this morning at the bedside. He denies any overnight events or complaints. He was dialyzed yesterday via his fistula with 4 liters of fluid removed and the treatment was unremarkable. Intake yesterday 1180. Dialysis yesterday removed 4 liters. Net negative 2820. Weight in the bed scale today is not reported. GENERAL: Patient is seen in bed, head of bed elevated. Morbidly obese. No acute distress. Temperature 98.4, pulse 72, respiratory rate 19, blood pressure 109/56, saturating 95% on trach collar. Head is atraumatic. Tracheostomy is in place. There is oxygen via trach collar. He is edentulous. Heart sounds are regular. Lungs with diminished breath sounds secondary to severe morbid obesity. Abdomen is soft and significantly obese. There are bowel sounds. The extremities have no cyanosis or clubbing. The right forearm atrioventricular (AV) fistula has a thrill and a bruit. There is a PermaCath present in the left chest wall. Neurologically, he is at baseline mentation. LABORATORIES: White count 8.4, hemoglobin 11.6, platelets 126. Sodium 134, potassium 4.1. INPATIENT MEDICATIONS: Reviewed by myself and no change from prior. PROBLEMS: 1. End-stage renal disease on hemodialysis on a Wednesday, , Wednesday schedule. Patient was dialyzed yesterday; 4 liters of fluid was removed. His fistula was successfully used without issues. His volume status is reasonably compensated. His electrolytes are acceptable. Next dialysis will be on Wednesday, likely as an outpatient. 2. Status post declotting of the right upper extremity fistula. His fistula has been successfully used in hemodialysis unit. His PermaCath will stay in place temporarily until the fistula fully heals and we are confident that there are no signs of reclotting. 3. Chronic respiratory failure. Patient continues with bilevel positive airway pressure (BiPAP) when asleep and trach collar and oxygen during the daytime. His extreme obesity complicates his care. 4. Hypertension. He continues on carvedilol and blood pressures are satisfactory.
--- NOTE | 2019-03-12 15:42 | IPNPDOC ---
Subjective Date Seen The patient was seen on 03/12/19. Subjective Chief Complaint/HPI Seen today on [address], resting comfortably. He has had some R shoulder discomfort, which is relieved with a heating pad. There is some anticipated bruising at the site of the R fistula where it has been declotted, but it isn't particularly uncomfortable. Otherwise he is doing well, plan DC back to SNF tomorrow. Constitutional: Denies: Chills, Fever, Malaise Pulmonary: Denies: Dyspnea, Cough Cardiovascular: Denies: Chest Pain Gastrointestinal: Denies: Nausea, Vomiting, Diarrhea, Constipation Psych: Reports: Mood Normal Objective Physical Examination General Exam: Positive: Alert, Cooperative, No Acute Distress Eye Exam: Positive: Conjunctiva & lids normal; Negative: Sclera icteric ENT Exam: Positive: Mucous membr. moist/pink Neck Exam: Positive: Other (trach in place with mask) Chest Exam: Positive: Clear to auscultation, Diminished Heart Exam: Positive: Rate Normal, Regular Rhythm; Negative: Murmurs Abdomen Exam: Positive: Normal bowel sounds, Soft; Negative: Tenderness Extremity Exam: Positive: Swelling (some swelling and bruising consistent with recent fistula procedure); Negative: Edema A-FIB/CHADSVASC A-FIB History Current/History of A-Fib/PAF?: No Age/Risk Factor Scoring CHADSVASC: CHADSVASC Response (Comments) Value Age Risk Factor Age < 65 years old 0 Gender Risk Factor Male 0 Hx of CHF No 0 Hx of HTN No 0 Hx of Stroke/TIA/or VTE No 0 Hx of Diabetes No 0 Hx of Vascular Disease Yes 1 Total 1 Assessment /Plan Problems (1) Thrombosis of arteriovenous fistula Status: Acute Response to Treatment: Stable Problem Specific Plan: Consult Specialist Problem Text: 03/12: Some bruising, but it isn't too uncomfortable, and fistula is in working order. 03/11: Doing well after his procedure. 03/10/19: His surgery was done today. He is spending time on dialysis right now to filter some of the clot that may have been released. 03/09/19: Surgery for shunt revision is anticipated tomorrow. He is at significant surgical risk, but there are no readily alterable factors to decrease his risk. Therefore I do believe he is medically optimized. 03/08/19: Venous mapping was completed. We await vascular to determine for shunt revision Left sided permacath placed. Will need revision of shunt. A venous mapping study was performed today to help guide the surgeons in determining where to put this shunt. It is not clear when this will happen, but this is the next step. The nephrology nurse was asked as well since she claims his current access for dialysis is functioning poorly. (2) Pickwickian syndrome Status: Chronic Response to Treatment: Stable Problem Text: Uses Bipap when sleeping. His super morbid obesity effects many areas of his health including this area. (3) ESRD (end stage renal disease) on dialysis Status: Chronic Response to Treatment: Stable Problem Specific Plan: Consult Specialist Problem Text: 03/10/19: He will be receiving a full dialysis tomorrow, but today he is having a brief session to filter out any released clot. 03/09/19: He had dialysis today. This should help and be ready for surgery tomorrow. 03/08/19: Nephrology following. Continue dialysis Wednesday, and Wednesday On dialysis Wednesday (4) Obesity Status: Chronic Response to Treatment: Stable Problem Text: As noted above his morbid obesity negatively affects almost every area of his health. Previous efforts to engage patient cooperation in weight loss was unsuccessful. He refused to allow calorie restriction to help with his weight. (5) Finger wound, simple, open Status: Chronic Response to Treatment: Stable Problem Text: This has been healing well, but we should continue to look at it on a regular basis. (6) Tracheostomy present Status: Chronic Response to Treatment: Stable Plan/VTE VTE Prophylaxis Ordered?: Yes (subcutaneous heparin) Plan Anticipated Discharge: [facility] VS, I&O, 24H, [facility] Vital Signs/I&O Vital Signs Date Time Temp Pulse Resp B/P (MAP) Pulse Ox O2 Delivery O2 Flow Rate FiO2 03/12/19 13:25 14 03/12/19 08:20 8.0 35 03/12/19 08:20 72 109/56 03/12/19 06:00 98.4 95 03/12/19 03:44 Trach Collar I&O- Last 24 Hours up to 6 AM 03/12/19 06:00 Intake Total 1800 ml Output Total 4000 ml Balance -2200 ml Laboratory Data 24H LABS Laboratory Tests 2 03/12/19 06:01: Immature Granulocyte % (Auto) 0.5, White Blood Count 8.4, Red Blood Count 3.44L, Hemoglobin 11.6L, Hematocrit 37.1L, Mean Corpuscular Volume 107.8H, Mean Corpuscular Hemoglobin 33.7H, Mean Corpuscular Hemoglobin Concent 31.3L, Red Cell Distribution Width 13.9, Platelet Count 126L, Neutrophils (%) (Auto) 52.3, Lymphocytes (%) (Auto) 34.4, Monocytes (%) (Auto) 8.1H, Eosinophils (%) (Auto) 4.1H, Basophils (%) (Auto) 0.6, Neutrophils # (Auto) 4.4, Lymphocytes # (Auto) 2.9, Monocytes # (Auto) 0.7, Eosinophils # (Auto) 0.3, Basophils # (Auto) 0.1, Nucleated Red Blood Cells % (auto) 0.0, Anion Gap 8, Glomerular Filtration Rate 11.8L, Blood Urea Nitrogen 35H, Creatinine 5.56H, Sodium Level 134L, Potassium Level 4.1, Chloride Level 98, Carbon Dioxide Level 28, Calcium Level 8.5 CBC/BMP Laboratory Tests 03/12/19 06:01 Red Blood Count 3.44 L, Mean Corpuscular Volume 107.8 H, Mean Corpuscular Hemoglobin 33.7 H, Mean Corpuscular Hemoglobin Concent 31.3 L, Red Cell Distribution Width 13.9, Neutrophils (%) (Auto) 52.3, Lymphocytes (%) (Auto) 34.4, Monocytes (%) (Auto) 8.1 H, Eosinophils (%) (Auto) 4.1 H, Basophils (%) (Auto) 0.6, Neutrophils # (Auto) 4.4, Lymphocytes # (Auto) 2.9, Monocytes # (Auto) 0.7, Eosinophils # (Auto) 0.3, Basophils # (Auto) 0.1, Calcium Level 8.5 Microbiology Microbiology 03/04/19 Blood Culture - Final, Complete NO GROWTH AFTER 5 DAYS MARCOS ROTHMAN DO March 12, 2019 15:42
--- NOTE | 2019-03-12 18:34 | IPNPDOC ---
Date Seen The patient was seen on 03/12/19. Progress Note Pt seen and examined. He is doing well POD #2 s/p open RUE AVF thrombectomy and revision. He has a little bruising in areas of dissection around the incision, but otherwise the incision is c/d/i and good thrill over AVF. Continue using AVF as able. Will d/c permcath in a few weeks if no issues arise. Steristrips should stay in place for 5-7 days to allow incision to heal. Elevate arm to diminish swelling prn. Patient agreeable to plan. VS, I&O, 24H, Fishbone Vital Signs/I&O Vital Signs Date Time Temp Pulse Resp B/P (MAP) Pulse Ox O2 Delivery O2 Flow Rate FiO2 03/12/19 14:00 96.8 64 20 117/60 (79) 93 8.0 35 03/12/19 03:44 Trach Collar I&O- Last 24 Hours up to 6 AM 03/12/19 06:00 Intake Total 1800 ml Output Total 4000 ml Balance -2200 ml Laboratory Data 24H LABS Laboratory Tests 2 03/12/19 06:01: Immature Granulocyte % (Auto) 0.5, White Blood Count 8.4, Red Blood Count 3.44L, Hemoglobin 11.6L, Hematocrit 37.1L, Mean Corpuscular Volume 107.8H, Mean Corpuscular Hemoglobin 33.7H, Mean Corpuscular Hemoglobin Concent 31.3L, Red Cell Distribution Width 13.9, Platelet Count 126L, Neutrophils (%) (Auto) 52.3, Lymphocytes (%) (Auto) 34.4, Monocytes (%) (Auto) 8.1H, Eosinophils (%) (Auto) 4.1H, Basophils (%) (Auto) 0.6, Neutrophils # (Auto) 4.4, Lymphocytes # (Auto) 2.9, Monocytes # (Auto) 0.7, Eosinophils # (Auto) 0.3, Basophils # (Auto) 0.1, Nucleated Red Blood Cells % (auto) 0.0, Anion Gap 8, Glomerular Filtration Rate 11.8L, Blood Urea Nitrogen 35H, Creatinine 5.56H, Sodium Level 134L, Potassium Level 4.1, Chloride Level 98, Carbon Dioxide Level 28, Calcium Level 8.5 CBC/BMP Laboratory Tests 5/19/19 06:01 Red Blood Count 3.44 L, Mean Corpuscular Volume 107.8 H, Mean Corpuscular Hemoglobin 33.7 H, Mean Corpuscular Hemoglobin Concent 31.3 L, Red Cell Distribution Width 13.9, Neutrophils (%) (Auto) 52.3, Lymphocytes (%) (Auto) 34.4, Monocytes (%) (Auto) 8.1 H, Eosinophils (%) (Auto) 4.1 H, Basophils (%) (Auto) 0.6, Neutrophils # (Auto) 4.4, Lymphocytes # (Auto) 2.9, Monocytes # (Aut o) 0.7, Eosinophils # (Auto) 0.3, Basophils # (Auto) 0.1, Calcium Level 8.5 Microbiology Microbiology 03/04/19 Blood Culture - Final, Complete NO GROWTH AFTER 5 DAYS PRIYANKA CUMMINS MD March 12, 2019 18:34
[2019-03-12] MEDS: PRAMIPEXOLE (MIRAPEX) 0.125 MG TAB PO SCH (21:16)
[2019-03-12] MEDS: SENOKOT S TAB PO SCH (21:16)
[2019-03-12 22:00] VITALS: BP 127/62
[2019-03-13] MEDS: ALBUTEROL SULFATE 2.5 MG/0.5 ML INH NEB SOLN INH PRN ×2 (04:47→11:08)
[2019-03-13] MEDS: HEPARIN SOD (PORCINE) 5000 UNITS/ML VIAL SQ SCH (05:14)
[2019-03-13 06:00] VITALS: BP 115/56
[2019-03-13 06:11] LABS: BASO # 0.1 10^3/uL (0.0-0.2); BASO % 0.6 % (0.0-1.0); EOS # 0.4 10^3/uL (0.0-0.50); EOS % 4.7 % (0.0-3.0); HEMOGLOBIN 11.6 g/dl (13.5-17.5); LYMPH # 2.7 10^3/uL (1.5-4.5); MEAN CORPUSCULAR HEMOGLOBIN 33.6 pg (27.0-33.0); MEAN CORPUSCULAR HGB CONC 31.4 g/dl (32.0-36.5); MEAN CORPUSCULAR VOLUME 107.2 fl (80.0-96.0); MONO # 0.5 10^3/uL (0.0-0.8); MONO % 6.8 % (0.0-5.0); NEUTROPHILS # 4.1 10^3/uL (1.8-7.7); NEUTROPHILS % 52.3 % (36.0-66.0); PLATELET COUNT, AUTOMATED 128 10^3/uL (150-450); RED BLOOD COUNT 3.45 10^6/uL (4.30-6.10); WHITE BLOOD COUNT 7.8 10^3/uL (4.0-10.0)
[2019-03-13] MEDS: IPRATROPIUM 0.5MG/ALBUTEROL 2.5MG INH SOL UD 3ML (DUONEB)(J7620) INH SCH (07:28)
[2019-03-13 08:10] VITALS: BP 120/62
[2019-03-13] MEDS: DOCUSATE SODIUM 100 MG CAP PO SCH (08:10)
[2019-03-13] MEDS: GABAPENTIN 300 MG CAP PO SCH (08:10)
[2019-03-13] MEDS: AMIODARONE 200 MG TAB (PACERONE) PO SCH (08:10)
[2019-03-13] MEDS: (RENVELA) SEVELAMER **CARBONate** 800 MG TAB PO SCH (08:10)
[2019-03-13] MEDS: NEPHRO-VIT TAB (NEPHROCAPS) PO SCH (08:10)
[2019-03-13] MEDS: CINACALCET 30 MG TAB (SENSIPAR) PO SCH (08:10)
[2019-03-13] MEDS: ESCITALOPRAM OXALATE 10 MG TAB (LEXAPRO) PO SCH (08:10)
[2019-03-13] MEDS: CARVedilol 6.25 MG TAB PO SCH (08:10)
[2019-03-13 08:54] LABS: CALCIUM LEVEL 8.7 MG/DL (8.5-10.1); CREATININE FOR GFR 7.24 MG/DL (0.70-1.30); GLOMERULAR FILTRATION RATE 8.7 (>60); POTASSIUM SERUM 4.4 MEQ/L (3.5-5.1)
--- NOTE | 2019-03-13 09:26 | DSES ---
DATE OF ADMISSION: 03/05/2019 DATE OF DISCHARGE: 03/13/2019 PRIMARY CARE PROVIDER: Dr. Clarence Kimball ATTENDING TODAY: Dr. Dorota Aranda HISTORY: This is a 48-year-old male patient, a resident at [facility], who was admitted to [facility] when the patient went to dialysis and they were unable to access his shunt. He was admitted to the hospital for PermaCath placement with the intention of shunt revision. Dr. Ybarra of vascular surgery was made aware of the patient's admission and agreed to see the patient in followup. During his hospitalization, he underwent right upper extremity AV fistula thrombectomy and revision. He had bruising to the area of dissection around the incision, but otherwise the incision is healing well. The AV fistula can be used and the PermaCath will be discontinued in a few weeks if the patient's AV fistula continues to function without complication. He otherwise has remained medically stable during his hospitalization. His routine at home medications were continued. DISCHARGE DIAGNOSES: 1. Thrombosis of the AV fistula. 2. End stage renal disease on chronic dialysis. 3. Pickwickian syndrome. 4. Super morbid obesity. 5. Chronic respiratory failure with tracheostomy. DISCHARGE MEDICATIONS: - acetaminophen 650 mg every 4 hours as needed for pain or fever - albuterol sulfate 2.5 mg inhaled every 2 hours as needed for shortness of breath - albuterol inhaler 2 puffs inhaled every 4 hours as needed for shortness of breath or wheezing - Xanax 1 mg by mouth every 8 hours as needed for anxiety - amiodarone 200 mg by mouth daily - amoxicillin 2000 mg before dental procedures - Dulcolax 10 mg per rectum daily as needed for constipation - carvedilol 6.25 mg by mouth twice a day - Sensipar 90 mg by mouth daily - Colace 200 mg by mouth daily - vitamin D 50,000 units by mouth once weekly - LactoPro 10 mg by mouth daily - ferric citrate 630 mg by mouth with meals - gabapentin 300 mg by mouth three times a day - guaifenesin syrup 10 mL by mouth every 4 hours as needed for cough - DuoNeb inhaled twice daily - Refresh Lacri-Lube ointment each eye twice daily as needed for dry eyes - oxycodone 10 mg three times weekly on dialysis days - Percocet 5/325 by mouth every 6 hours as needed for pain - Preparation-H per rectum twice daily as needed for hemorrhoids - Mirapex 0.125 mg by mouth at bedtime - senna S two tablets by mouth at bedtime - Renvela 4800 mg by mouth with meals - enema daily as needed for constipation - Nephrovite one tablet by mouth daily DISCHARGE PLAN: To followup with Dr. Kimball at [facility] and nephrology. He will continue with three times weekly dialysis. His activity is [employer]. His diet is renal. edited: 03/14/2019 0725 tkf MTDD
--- NOTE | 2019-03-14 07:48 | IPNPDOC ---
Text Note Date of Service The patient was seen on 03/13/19. NOTE Nephrology Service: Subjective: Patient seen and examined in dialysis receiving dialysis in RUE AV fistula site. Status-post AV fistula revision/declotting thrombolysis surgery on 03/10 POD #4. Denies pain in RUE AV fistula repair site. Otherwise, he offers no acute complaints. No fevers, chest pain, SOB more than usual, abdominal pain, nausea, vomiting, or diarrhea, constipation. Patient's last hemodialysis was 03/11 via RUE AV fistula with 4000 mL removed. Is happy to be going back to [facility] today. Objective: Vitals: T 96.3 P 55 RR 18 BP 115/56 Pulse Ox: 96% on 8.0 L/min at 35% FiO2 via Trach Collar Intake: 1980 ml Output: 0 ml Balance: (+) 1980 ml GENERAL APPEARANCE: Pleasant and cooperative morbidly obese nonverbal adult male lying in bed in NAD. Awake, alert, oriented x 3. PSYCHIATRIC: Euthymic affect. Normal mood today. No overt signs of depression/ anxiety. HEENT: NCAT. NECK: Supple. No JVD able to be appreciated due to increased neck circu mference/body habitus. RESPIRATORY: Clear to Auscultation bilaterally but diminished bilaterally. No wheezes/rales/rhonchi. CARDIOVASCULAR: Distant heart sounds. Normal S1S2, RRR, no murmurs appreciated. ABDOMEN: Soft, morbidly obese, nontender, nondistended. Hypoactive bowel sounds. EXTREMITIES: No edema bilateral lower extremities. No clubbing/cyanosis. INTEGUMENTARY: Warm and dry skin. Chronic venous stasis changes noted in lower extremities bilaterally. NEUROLOGICAL: No focal neurologic deficits appreciated on inspection. Laboratory data: CBC: WBC 7.8, Hgb 11.6, Platelets 128 (L) BMP: Na 134 (L), K 4.4, CO2 28, BUN 51, Cr 7.24, Glucose 102, GFR: 8.7 Imaging: No new imaging today. Current Inpatient Medications: Nephro-Shante Rx (Vitamin B Complex/Vitamin C/Folic Acid) 1 tab PO daily Sensipar (Cinacalcet) 90 mg PO daily Carvedilol 6.25 mg PO BID Amiodarone 200 mg PO daily Oxycodone 10 mg PO PRN pain as directed Percocet 5/325 mg PO q6h PRN pain Gabapentin 300 mg PO TID Pramipexole Dihydrochloride (Mirapex) 0.125 mg PO QHS Sevelamer Carbonate (Renvela) 4800 WM PO Drisdol 96934 units PO Fridays No medication changes noted today. Assessment/Plan: 1. End-stage renal disease on HD on Wed Sat Schedule: Last HD on 03/11 via RUE AV fistula with 4000 mL removed. Next dialysis should be tomorrow at outpatient dialysis center. Has successfully used fistula 2 times. The Permacath will be left in place for 2 weeks until AV fistula fully heals and is consistently working good without signs of reclotting. Otherwise, patient doing well post-surgically and dialysis nurse had no acute concerns. Volume status well compensated and electrolytes are acceptable. 2. Nonfunctioning right arm AV fistula with thombosis: Status-post RUE AV fistula declotting thrombolysis on 03/10 post-operative day #4. AVF functioning well. Has been used 2 times successfully. Will continue dialyzing using this fistula now. 3. Hypotension: Improved. BP acceptable at this time. Continue with current antihypertensive regimen, carvedilol currently. Continue to monitor for hypotension. 4. Chronic respiratory failure status-post tracheostomy: On BiPAP when asleep and during daytime on oxygen and on a trach collar at 8L/min with FiO2 35%. Satting 95%. This is baseline. Will monitor for any development of acute decompensation. Keep patient on continuous pulse oximeter. 5. Obstructive sleep apnea: Continue BiPAP/CPAP at night at his out of hospital settings. 6. Obesity complicating care. Patient is a Full Code. My preceptor for this patient encounter was Dr. Adrián Curtis, and was physically present in the building during the encounter and was fully available. As needed, all aspects of the patient interview, examination, medical decision making process, and medical care plan development were reviewed and approved by the preceptor. Preceptor is aware and concurs with the plan as stated in the body of this note and will attest to such by his/her cosignature. A-FIB/CHADSVASC A-FIB History Current/History of A-Fib/PAF?: Yes Current Oral Anticoagulant The: No (History of developing perinephric hematoma) Age/Risk Factor Scoring CHADSVASC: CHADSVASC Response (Comments) Value Age Risk Factor Age < 65 years old 0 Gender Risk Factor Male 0 Hx of CHF No 0 Hx of HTN No 0 Hx of Stroke/TIA/or VTE No 0 Hx of Diabetes No 0 Hx of Vascular Disease Yes 1 Total 1 VS,Fishbone, I+O VS, Fishbone, I+O Laboratory Tests 03/13/19 05:39 Red Blood Count 3.45 L, Mean Corpuscular Volume 107.2 H, Mean Corpuscular Hemoglobin 33.6 H, Mean Corpuscular Hemoglobin Concent 31.4 L, Red Cell Distribution Width 13.6, Neutrophils (%) (Auto) 52.3, Lymphocytes (%) (Auto) 35.0, Monocytes (%) (Auto) 6.8 H, Eosinophils (%) (Auto) 4.7 H, Basophils (%) (Auto) 0.6, Neutrophils # (Auto) 4.1, Lymphocytes # (Auto) 2.7, Monocytes # (Auto) 0.5, Eosinophils # (Auto) 0.4, Basophils # (Auto) 0.1 Vital Signs Date Time Temp Pulse Resp B/P (MAP) Pulse Ox O2 Delivery O2 Flow Rate FiO2 03/13/19 08:10 62 120/62 03/13/19 06:00 96.3 18 96 8.0 35 03/12/19 03:44 Trach Collar I&O- Last 24 Hours up to 6 AM 03/13/19 06:00 Intake Total 1500 ml Output Total 0 ml Balance 1500 ml TOYA SELLERS DO March 13, 2019 08:34
== END 2019-03-13 11:25 | DRG 252 ==
LOC: M ED 07:56 → EDBD 07:56 → M ED INP 11:46 → M MS5PR 14:00 → OBSVTOIN 03-05 11:36 → INTOOBSV 03-05 11:36
PROVIDERS: ADMIT Family Medicine; ATTEND Family Medicine
PROC: 02HV43Z Insertion of Infusion Device into Superior Vena Cava, Percutaneous Endoscopic Approach (ICD-10-PCS; 2019-03-05)
PROC: 5A1D70Z Performance of Urinary Filtration, Intermittent, Less than 6 Hours Per Day (ICD-10-PCS; 2019-03-07)
PROC: 05U Upper Veins, Supplement (ICD-10-PCS; 2019-03-10)
PROC: 05CY0ZZ Extirpation of Matter from Upper Vein, Open Approach (ICD-10-PCS; principal; 2019-03-10 11:30)
DX: T82.868A Thrombosis due to vascular prosthetic devices, implants and grafts, initial encounter (principal); N18.6 End stage renal disease; E66.2 Morbid (severe) obesity with alveolar hypoventilation; N25.81 Secondary hyperparathyroidism of renal origin; I12.0 Hypertensive chronic kidney disease with stage 5 chronic kidney disease or end stage renal disease; J96.10 Chronic respiratory failure, unspecified whether with hypoxia or hypercapnia; Z99.2 Dependence on renal dialysis; Z79.899 Other long term (current) drug therapy; Z93.0 Tracheostomy status; G47.33 Obstructive sleep apnea (adult) (pediatric); F41.9 Anxiety disorder, unspecified; K21.9 Gastro-esophageal reflux disease without esophagitis; I48.0 Paroxysmal atrial fibrillation; J84.10 Pulmonary fibrosis, unspecified; I95.9 Hypotension, unspecified; E87.5 Hyperkalemia; Z91.19 Patient's noncompliance with other medical treatment and regimen; Y83.2 Surgical operation with anastomosis, bypass or graft as the cause of abnormal reaction of the patient, or of later complication, without mention of misadventure at the time of the procedure

== ENCOUNTER → 2019-06-05 | Outpatient (REF) | payer MEDICARE, MEDICAID ==
[~2019-06-05] MED LIST changes: +ALBU17IN2 INH; +AMOX500C PO; +AURY1TAB PO; +COLA100C5 PO; +DULC10SU2 PR; +ENEMENE PR; +ESCI10TA2 PO; +GUAIDM5UD PO; +LACROIN OU; +OXYC-517 PO; +OXYC1TAB23 PO; +PREPOI PR
--- NOTE | 2019-06-05 15:54 | REP ---
REASON: Choking. COMPARISON: 11/12/2018 also portable. The technique utilized in obtaining the radiograph has magnified the cardiac silhouette and accentuated the interstitial markings. The tracheostomy tube is unchanged. There is global cardiomegaly accentuated by technique. There is interstitial basilar predominance status quo. No acute patchy parenchymal opacities or pleural effusions have developed. There is no change in the osseous structures. IMPRESSION: Stable chest. Electronically Signed by Aayush Colbert DO 06/05/2019 04:51 P
--- NOTE | 2019-06-06 20:35 | ECGEPIP ---
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
== END ==
LOC: SKLAB3 13:16
PROVIDERS: ATTEND Family Medicine
DX: I48.91 Unspecified atrial fibrillation (principal); R55 Syncope and collapse

== ENCOUNTER → 2019-06-19 | Outpatient (REF) | payer MEDICARE, MEDICAID ==
[~2019-06-19] MED LIST changes: -ALBU17IN2 INH; +ALPR1TAB3 PO; +CEFE1INJ IV; +CINA90TA PO; +PROV108A INH
[2019-06-19 08:00] LABS: BASO # 0.1 10^3/uL (0.0-0.2); BASO % 0.7 % (0.0-1.0); EOS # 0.4 10^3/uL (0.0-0.50); EOS % 5.8 % (0.0-3.0); HEMATOCRIT 40.2 % (42.0-52.0); HEMOGLOBIN 12.1 g/dl (13.5-17.5); LYMPH # 2.3 10^3/uL (1.5-4.5); LYMPH % 34.2 % (24.0-44.0); MEAN CORPUSCULAR HEMOGLOBIN 33.2 pg (27.0-33.0); MEAN CORPUSCULAR HGB CONC 30.1 g/dl (32.0-36.5); MEAN CORPUSCULAR VOLUME 110.1 fl (80.0-96.0); MONO # 0.2 10^3/uL (0.0-0.8); MONO % 3.3 % (0.0-5.0); NEUTROPHILS # 3.8 10^3/uL (1.8-7.7); NEUTROPHILS % 55.7 % (36.0-66.0); PLATELET COUNT, AUTOMATED 116 10^3/uL (150-450); RED BLOOD COUNT 3.65 10^6/uL (4.30-6.10); WHITE BLOOD COUNT 6.8 10^3/uL (4.0-10.0)
== END ==
LOC: SKLAB3 07:00
PROVIDERS: ATTEND Family Medicine
DX: D64.9 Anemia, unspecified (principal)

== ENCOUNTER 2019-07-05 03:56 | Inpatient (IN) | payer MEDICARE, MEDICAID ==
[~2019-07-05] VITALS: Ht 190.5 cm; Wt 207.3 kg
[2019-07-05] VITALS (48 sets, daily range): BP systolic 52–144; BP diastolic 27–85
[~2019-07-05 03:56] MED LIST changes: -ALPR1TAB3 PO; -CEFE1INJ IV; -CINA90TA PO
[2019-07-05] MEDS ORDERED: methylPREDNISolone INJ 125 MG/2 ML VIAL (J2930) IV ONE (04:30)
[2019-07-05] MEDS: IPRATROPIUM 0.5MG/ALBUTEROL 2.5MG INH SOL UD 3ML (DUONEB)(J7620) NEB PRN ×3 (04:30→07:56)
[2019-07-05 05:12] LABS: ABG BASE EXCESS 0.3 (-2.0-2.0); ABG O2 SATURATION 93.9 % (95.0-99.0); ABG PARTIAL PRESSURE O2 85.7 mmHg (75.0-100.0); ABG STANDARD HCO3 24.7 MEQ/L (22.0-26.0); ABG TOTAL CO2 40.4 MEQ/L (22.0-29.0)
[2019-07-05 05:13] LABS: BASO # 0.1 10^3/uL (0.0-0.2); BASO % 0.5 % (0.0-1.0); EOS # 0.5 10^3/uL (0.0-0.5); EOS % 4.4 % (0.0-3.0); HEMOGLOBIN 13.7 g/dl (13.5-17.5); LYMPH # 1.6 10^3/uL (1.5-5.0); LYMPH % 14.8 % (24.0-44.0); MEAN CORPUSCULAR HGB CONC 29.8 g/dl (32.0-36.5); MONO # 0.5 10^3/uL (0.0-0.8); MONO % 4.7 % (0.0-5.0); NEUTROPHILS # 8.1 10^3/uL (1.5-8.5); NEUTROPHILS % 74.9 % (36.0-66.0); PLATELET COUNT, AUTOMATED 129 10^3/uL (150-450); RED BLOOD COUNT 4.03 10^6/uL (4.30-6.10); WHITE BLOOD COUNT 10.7 10^3/uL (4.0-10.0)
[2019-07-05 05:15] LABS: ABG pH (ARTERIAL) 7.018 UNITS (7.350-7.450)
[2019-07-05 05:16] LABS: ABG PARTIAL PRESSURE CO2 143.2 mmHg (35.0-45.0)
[2019-07-05 05:18] LABS: MEAN CORPUSCULAR VOLUME 114.1 fl (80.0-96.0)
[2019-07-05 05:35] LABS: INFLUENZA A AMPLIFICATION NEGATIVE (NEGATIVE); INFLUENZA B AMPLIFICATION NEGATIVE (NEGATIVE)
[2019-07-05 05:49] LABS: ALBUMIN 3.7 GM/DL (3.2-5.2); ALT/SGPT 52 U/L (12-78); BILIRUBIN,DIRECT < 0.1 MG/DL (0.0-0.2); BILIRUBIN,TOTAL 0.5 MG/DL (0.2-1.0); BLOOD UREA NITROGEN 35 MG/DL (7-18); CALCIUM LEVEL 8.9 MG/DL (8.5-10.1); CARBON DIOXIDE LEVEL 30 MEQ/L (21-32); CHLORIDE LEVEL 101 MEQ/L (98-107); CK-MB VALUE MASS 2.8 NG/ML (<3.6); CPK CREATINE PHOSPHOKINASE 121 U/L (39-308); CREATININE FOR GFR 6.42 MG/DL (0.70-1.30); GLUCOSE, FASTING 122 MG/DL (70-100); MB/CK RELATIVE INDEX 2.31 (< OR =4); NT-PRO BNP 727 PG/ML (<125); POTASSIUM SERUM 5.6 MEQ/L (3.5-5.1); SODIUM LEVEL 137 MEQ/L (136-145); TROPONIN I < 0.02 NG/ML (< 0.10)
[2019-07-05 05:51] LABS: PLATELET ESTIMATE DECREASED (NORMAL)
[2019-07-05 05:52] LABS: HYPOCHROMASIA 1+
--- NOTE | 2019-07-05 05:52 | ECGEPIP ---
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
[2019-07-05] MEDS ORDERED: ISOVUE-370 76% 100ML VIAL (Q9967) As Ordered ONE (06:09)
[2019-07-05] MEDS ORDERED: CINA90TA PO (06:23)
[2019-07-05] MEDS ORDERED: ALPR1TAB3 PO (06:23)
--- NOTE | 2019-07-05 07:27 | REPVR ---
EXAM: CT Angiography Chest With Contrast EXAM DATE/TIME: 07/05/2019 6:03 AM CLINICAL HISTORY: 49 years old, male; Pleuritic chest pain, SOB, okay per Dr. Curtis TECHNIQUE: Imaging protocol: Computed tomographic angiography of the chest with intravenous contrast. 3D rendering: MIP reconstructed images were created and reviewed. Radiation optimization: All CT scans at this facility use at least one of these dose optimization techniques: automated exposure control; mA and/or kV adjustment per patient size (includes targeted exams where dose is matched to clinical indication); or iterative reconstruction. Contrast material: ISO; Contrast volume: 75 ml; Contrast route: ARM; COMPARISON: CR Chest, 1 view 06/05/2019 2:36 PM FINDINGS: Tubes, catheters and devices: There is a tracheostomy tube in the trachea. Pulmonary arteries: There are calcified filling defects in the segmental pulmonary arteries supplying the right upper lobe and right lower lobe, which are compatible with chronic pulmonary emboli. No acute pulmonary embolism is identified in the main, lobar, or segmental pulmonary arteries. The timing of the contrast bolus was suboptimal for the assessment of the subsegmental pulmonary arteries, which are poorly opacified. The pulmonary artery trunk is dilated and measures 3.4 cm in diameter, which can be seen with pulmonary artery hypertension. Aorta: There is no thoracic aortic aneurysm, pseudoaneurysm, penetrating atherosclerotic ulcer, or dissection. There are mild atherosclerotic calcifications. Superior vena cava: There are calcified filling defects in the superior vena cava, which are compatible with chronic deep vein thrombosis. Other veins: There are calcified filling defects in the bilateral brachiocephalic veins, which are compatible with chronic deep vein thromboses. Lungs: There is a 5 mm calcified granuloma in the right lower lobe (image 127 of axial series 401). There is cylindrical bronchiectasis and atelectasis in the right middle lobe. There is no lung consolidation, pulmonary infarct, or mass. No emphysematous changes or interstitial lung disease is noted. Pleural space: Unremarkable. No pneumothorax. No pleural effusion. Heart: No cardiomegaly. No pericardial effusion. The ratio of the diameter of the right ventricle to the diameter of the left ventricle measures less than 1, which is within normal limits and there is no evidence for a right ventricular strain. There are coronary artery calcifications and mitral annular calcifications. Incidental note is made of increased fat in the right and left cardiophrenic angles. Mediastinum: No mediastinal mass, hemorrhage, or pneumomediastinum. Gallbladder and bile ducts: The gallbladder is contracted. No calcified gallstones are seen. No gallbladder wall thickening, pericholecystic fluid, or pericholecystic inflammatory changes are identified. No dilation of the intrahepatic or extrahepatic bile ducts is noted. Spleen: The spleen is enlarged and measures 14.9 cm. Adrenals: Normal. No adrenal mass. Limited kidneys: There are calcifications and multiple cysts in the kidneys. The kidneys were not fully imaged. Lymph nodes: Normal. No enlarged lymph nodes. Bones/joints: The imaged bony structures are intact. There is sclerosis of the vertebral bodies predominantly adjacent to the endplates and sclerosis of the sternum, which can be seen with renal osteodystrophy. Soft tissues: Unremarkable. IMPRESSION: 1. Calcified filling defects in the segmental pulmonary arteries supplying the right upper lobe and right lower lobe, which are compatible with chronic pulmonary emboli. 2. Calcified filling defects in the bilateral brachiocephalic veins and superior vena cava, which are compatible with chronic deep vein thromboses. 3. Dilation of the pulmonary artery trunk, which may indicate pulmonary artery hypertension. 4. Cylindrical bronchiectasis and atelectasis in the right middle lobe. 5. Splenomegaly. 6. Sclerosis of the vertebral bodies predominantly adjacent to the endplates and sclerosis of the sternum, which can be seen with renal osteodystrophy. Electronically signed by: Tanner Vidales On 07/05/2019 07:27:22 AM
[2019-07-05] MEDS ORDERED: DEXTROSE 50% 50 ML SYRINGE IV PRN (07:45)
[2019-07-05] MEDS ORDERED: GLUCAGON FOR INJ 1 MG VIAL (J1610) SC PRN (07:45)
[2019-07-05] MEDS ORDERED: GLUCOSE 4 GM CHEW TABLET PO PRN (07:45)
[2019-07-05] MEDS ORDERED: PREPARATION H OINTMENT (HEMORRHOID) PR PRN (08:00)
[2019-07-05] MEDS ORDERED: BISACODYL 10 MG SUPP PR PRN (09:00)
[2019-07-05] MEDS: AMIODARONE 200 MG TAB (PACERONE) PO SCH (09:00)
[2019-07-05] MEDS: CARVedilol 6.25 MG TAB PO SCH ×2 (09:00→21:00)
[2019-07-05 09:23] LABS: ABG BASE EXCESS -3.5 (-2.0-2.0); ABG HCO3 28.5 MEQ/L (22.0-26.0); ABG O2 SATURATION 92.9 % (95.0-99.0); ABG PARTIAL PRESSURE O2 72.8 mmHg (75.0-100.0); ABG STANDARD HCO3 21.5 MEQ/L (22.0-26.0); ABG TOTAL CO2 31.3 MEQ/L (22.0-29.0)
[2019-07-05 09:31] LABS: ABG pH (ARTERIAL) 7.117 UNITS (7.350-7.450)
[2019-07-05 09:32] LABS: ABG PARTIAL PRESSURE CO2 90.3 mmHg (35.0-45.0)
--- NOTE | 2019-07-05 13:25 | HPE ---
DATE OF ADMISSION: 07/05/2019 CHIEF COMPLAINT: Shortness of breath. HISTORY OF PRESENTING ILLNESS: This is a 49-year-old morbidly obese male with body mass index (BMI) of 51 with obesity hypoventilation syndrome, chronic hypercapnic respiratory failure status post trache, residing at [facility], with end-stage renal disease on chronic hemostasis, presented to the emergency room after being found to have increasing respiratory distress. The patient was not hypoxic according to bottle filler. Was found to have acute on chronic hypercapnic respiratory failure with a pH of 7.0, pO2 level of 143, as well as decreasing mental status but is able to still converse but not at baseline. The patient states that he was short of breath this morning. Denies any fever or chills. He was found to have human rhinovirus enterovirus at 4:52 nasopharynx swab this morning and is being admitted for acute on chronic hypercapnic respiratory failure. Currently, ventilated by the tracheostomy. Repeat arterial blood gas (ABG) is improved with pH of 7.11, pO2 of 90. He currently is awake, alert to himself. Able to provide some history but lethargic at the bedside. He does follow commands, however. He otherwise denies any changes in appetite, nausea, vomiting, diarrhea, chest pain, pressure, tightness. CT of the chest shows chronic pulmonary emboli, chronic deep venous thromboses (DVTs) with cylindrical bronchiectasis. Dr. Bradley has been consulted for ventilatory management. PAST MEDICAL HISTORY: 1. Morbid obesity. 2. Obstructive sleep apnea. 3. Obesity hypoventilation syndrome. 4. Chronic hypercapnic respiratory failure requiring tracheostomy. 5. End-stage renal disease requiring maintenance hemodialysis on Wednesday, , Wednesday. 6. bacteremia. 7. Paroxysmal atrial fibrillation. 8. Chronic anxiety and depression. 9. Noncompliance with dietary and fluid restriction. 10. Hyperparathyroidism. 11. Spinal stenosis. 12. Insertion of PermCath in February 2019. 13. Thrombosis of AV fistula. 14. Pickwickian syndrome. 15. Supermorbid obesity. 16. Chronic respiratory failure with tracheostomy. PAST SURGICAL HISTORY: 1. Tracheostomy. 2. permacath placement ALLERGIES: To MOXIFLOXACIN. SOCIAL HISTORY: does not ambulate and uses and electric wheelchair . elizabeth lift. no etoh, cig, drug use. The patient has been living at [facility] due to morbid obesity, respiratory failure, and other comorbid conditions, unable to ambulate due to severe spinal stenosis and lower extremity weakness. FAMILY HISTORY: Negative for end-stage renal disease. ASSISTED MEDICATIONS: - acetaminophen 650 every 4 as needed - Proventil two puffs every 4 - Xanax 1 mg every 6 as needed - amoxicillin 2 grams - Colace 200 mg daily - vitamin D2 50,000 units weekly - citalopram oxylate 10 mg daily - Neurontin 300 three times a day - guaifenesin 10 mL every 4 as needed - ipratropium albuterol 0.5-3 (2.5) mg/3 mL inhaled twice a day - oxycodone/acetaminophen 5/325 two tablets three times a week - Percocet 5/325 one tablet every 6 as needed - Mirapex 0.25 mg nightly - Nephro-Shante one tablet daily - cinacalcet 90 mg daily - Auryxia 630 mg by mouth with meals - oxycodone 10 mg three times weekly - Renvela 4800 mg three times a day - Fleet enema one daily as needed - Preparation H as needed twice a day - Senokot two tablets by mouth nightly - Coreg 6.25 twice a day - Dulcolax 10 mg as needed as needed - amiodarone 200 daily - albuterol sulfate every 2 as needed REVIEW OF SYSTEMS: Ten-point system negative aside from positive findings in history of present illness (HPI). PHYSICAL EXAMINATION: Temperature 97.5, pulse 60, respiratory rate 17, blood pressure 133/69, 93% on trache FIO2 of 50%. tracheostomy Generally, the patient is awake, alert, oriented to person only. He is lethargic and sleeps quickly but appropriate. Able to answer his name. Able to say that he was short of breath. HEENT: The patient has a trache with thick yellowish-green secretions. He has moderate respiratory distress. Uses accessory muscles. No nasal flaring. Anicteric. No jaundice. The patient has no icterus or jaundice. He is lethargic. Positive use of respiratory accessory muscles. Lungs are diminished. Distant breath sounds. Faint expiratory wheezing. Heart: S1, S2. Sinus rhythm. No murmurs, rubs, or gallops. Abdomen: Is obese, soft, nontender, nondistended. Extremities: Chronic lower extremity edema. Venous stasis changes. LABORATORY DATA: White count 10.7, hemoglobin 13, hematocrit 46, platelet count 129. Previous white count 128. Sodium 137, potassium 5.6, chloride 101, bicarbonate 30, BUN 35, creatinine 6.42, glucose of 122, BNP of 727. Nasopharynx respiratory panel: Human rhinovirus enterovirus. ASSESSMENT AND PLAN: This is a 49-year-old male with history of end-stage renal disease on maintenance hemodialysis Wednesday, , Wednesday, chronic hypercapnic respiratory failure requiring tracheostomy placement, supermorbid obesity with pickwickian syndrome, obesity hypoventilation syndrome, chronic hypercapnia, hypertension, right upper extremity fistula thrombosis, currently has a PermCath, presented to the emergency room with acute onset of shortness of breath. Found to have human rhinovirus. The patient is currently ventilated via his tracheostomy managed by bottle filler. The patient is admitted as an inpatient for two midnights for the following acute issues: Acute hypoxic and hypercapnic respiratory failure on chronic hypercapnic respiratory failure secondary to human rhinovirus. The patient is currently on ventilation managed by bottle filler, Dr. Lenny Bradley. CT of the chest shows chronic pulmonary embolism with history of chronic DVTs. The patient will be kept nothing by mouth for now until mentation is improved. He did receive one dose of Solu-Medrol in the emergency room, 125 mg. Human Rhinovirus infection most likely caused exacerbation in pt's acute on chronic hypercapnic respiratory failure. He is kept on contact isolation and supportive care. Acute Metabolic encephalopathy due to acute on chronic hypercapnic respiratory failure with acute respiratory acidosis, managed by vent management, bottle filler, Dr. Bradley, has been consulted. Chronic pulmonary embolism (PE) and deep venous thrombosis, probable pulmonary hypertension due to obesity hypoventilation syndrome and chronic pulmonary embolism. on no anticoagulation due to perinephric bleeding when the patient was placed on warfarin for atrial fibrillation per Dr. Kimball, and no history of ivc filter placement. no signs of fluid overload, edema or effusion on CT. Suicide Ideation/Severe depression pt said to ICU nurse that he wants to drive his scooter into traffic to commit suicide.Psychiatrist Dr. Avendaño, has been contacted to see the patient. suicide precautions. sitter. End-stage renal disease, on maintenance hemodialysis. Dr. Curtis has been consulted for his dialysis needs. Hyperkalemia due to ESRD. Dialysis needs per nephrology management. Pt will be undergoing a session today. may go off telemetry monitoring. Morbid obesity. Elizabeth lift at baseline at [facility] chronically. complicating care Pickwickian syndrome with obesity hypoventilation syndrome with supermorbid obesity complicating his care. Chronic tracheostomy. MTDD
[2019-07-05 15:43] LABS: ALBUMIN 3.5 GM/DL (3.2-5.2); CALCIUM LEVEL 8.9 MG/DL (8.5-10.1); CREATININE FOR GFR 7.04 MG/DL (0.70-1.30); PHOSPHORUS LEVEL 6.9 MG/DL (2.5-4.9); POTASSIUM SERUM 6.2 MEQ/L (3.5-5.1)
[2019-07-05 16:56] LABS: ABG BASE EXCESS -3.9 (-2.0-2.0); ABG HCO3 27.9 MEQ/L (22.0-26.0); ABG O2 SATURATION 90.5 % (95.0-99.0); ABG PARTIAL PRESSURE O2 66.7 mmHg (75.0-100.0); ABG STANDARD HCO3 21.1 MEQ/L (22.0-26.0); ABG TOTAL CO2 30.6 MEQ/L (22.0-29.0); ABG pH (ARTERIAL) 7.119 UNITS (7.350-7.450)
--- NOTE | 2019-07-05 19:04 | CR ---
DATE OF CONSULTATION: 07/05/2019 REASON FOR CRITICAL CARE/PULMONARY CONSULTATION: Consulted for ventilator management of patient in the setting of acute and chronic hypercapnic respiratory failure with patient having tracheostomy. HISTORY OF PRESENT ILLNESS: Matthew is a 49-year-old , morbidly obese male who presented to the emergency department early this morning after his ventilator alarm went off at the [facility]. His caregiver initiated his emergency department (ED) presentation. Matthew was undergoing his regularly scheduled dialysis treatment yesterday (Wednesday, 07/04), when toward the end of treatment, he began to experience shortness of breath. The dialysis treatment was stopped a little bit before completion. From that point on, his shortness of breath progressively worsened until early this morning when his alarm went off on the ventilator machine. Matthew states he received a couple nebulizer breathing treatments, which helped his dyspnea for about 10 minutes. He says that lying flat exacerbates his shortness of breath, and that he usually sleeps while sitting up. In terms of associated symptoms, he experienced emesis last night, occasional blurry vision, a sore throat, and rhinorrhea for the past 2 days with accompanying cough, which produced a yellowish, thick sputum expectorated out through tracheostomy. He also complains of chronic sleep disturbances as well as recent palpitations. He states that he has never had acute respiratory dyspneic symptoms like this before. Matthew reports that he has not been using his Trilogy ventilator at night for at least a couple months. When patient was asked why he was not using his nocturnal ventilator, he responded by simply shaking his head. On further questioning, patient admits that Trilogy ventilator is not working and he, nor any senior capital markets specialist, initiated efforts to remedy the issue. Matthew uses 3 liters of nasal cannula oxygenation with water humidification during the day. He has been using nasal cannula oxygen at night for the past couple months instead of his Trilogy ventilator. REVIEW OF SYSTEMS: Pertinent positives: Palpitations, one period of emesis last night, blurry vision, sore throat, rhinorrhea, and cough for the past 2 days with productive cough of yellow, thick sputum, bilateral paresthesias of upper and lower extremities chronically. Pertinent negatives: Denies chest pain, chest pressure, headache, feeling lightheaded, diaphoresis. Denies chest pain with respiration, nausea, abdominal pain, dysuria, constipation. PAST MEDICAL HISTORY: 1. Obesity hypoventilation syndrome. 2. Staphylococcus aureus bacteremia. 3. Hypertensive nephropathy leading to end-stage renal disease necessitating dialysis treatments. 4. Morbid obesity. 5. Obstructive sleep apnea. 6. Secondary hyperparathyroidism. 7. Gastroesophageal reflux disease (GERD). 8. Chronic anxiety. 9. History of paroxysmal atrial fibrillation, but not on active anticoagulation due to history of developing perinephric hematoma. PAST SURGICAL HISTORY: Tracheostomy. FAMILY HISTORY: CVA (father); negative family history for ESRD. SOCIAL HISTORY: Patient is a resident at the [facility]. ALLERGIES: Reported allergy to MOXIFLOXACIN. OBJECTIVE: PHYSICAL EXAMINATION: GENERAL: Patient is sleepy yet immediately arousable to voice. He is lying in bed with his head elevated. His tracheostomy is attached to ventilator with no cuff sealing the tracheostomy tube. Patient does not appear to be in acute respiratory distress. He is responding appropriately to questions and is able to speak a few wordss and short sentences through the tracheostomy. VITAL SIGNS: Temperature 97.7 (maximal temperature 97.9), heart rate ranging between 64-67 beats per minute, blood pressure 144/85 (mean arterial pressure [MAP] 109), respiratory rate between 24-26 breaths per minute, SpO2 of 97% on FiO2 ventilator setting of 50%. HEENT: Normocephalic, atraumatic. Moderate erythematous injection of sclerae bilaterally with congealed yellowish-colored discharge from the eyes along the eyelashes. Mild erythematous conjunctivae bilaterally. Pupils are equal, round, reactive to light and accommodation. Extraocular motion is intact. Nares are patent with no active discharge. Mouth: Poor dentition with no visible upper teeth and a few lower teeth present. NECK: Wide, obese, supple with no palpable cervical or supraclavicular lymphadenopathy. Trachea is midline. CARDIOVASCULAR: Distant heart sounds on auscultation, likely due to body habitus and positioning. Unable to appreciate S1, S2. Also unable to appreciate any murmurs, rubs, or gallops. RESPIRATORY: There is visible diminished chest rise. Patient is unable to sit up for pulmonary exam; therefore, exam was performed while patient was lying at an angle upright in bed, and only the anterior lung kline were auscultated. Lungs appeared clear with background of air exchange through tracheostomy. There were no rhonchi or crackles appreciated. The inspiration to expiration appeared normal. There appeared to be air leakage around tracheostomy tube. ABDOMEN: Normoactive bowel sounds. Significantly obese. Tender to deep palpation, right upper quadrant and left upper quadrant. On the left side of abdomen in the left middle quadrant there was an indurated circumscribed area that was palpated. This area felt ropy, almost cody-like. EXTREMITIES: Radial pulses 2+, posterior tibial pulses, and dorsalis pedis pulses bilaterally. Bilateral 1+ pitting edema bilaterally. Adequate capillary refill of great toe bilaterally. NEUROLOGIC: Patient is alert and oriented times three. He is moving his extremities on command. He is able to respond adequately and appropriately to questions. He is sleepy but is aroused to voice stimulation easily. LABORATORY DATA: CBC: WBC 10.7, hemoglobin 13.7, hematocrit 46, platelet count 129, neutrophil percentage 74.9, lymphocyte percentage 14.8, eosinophil percentage 4.4. A quantitative D-dimer is pending. Chemistry: Sodium 137, potassium 5.6, chloride 101, carbon dioxide 30, BUN 35, creatinine 6.42, GFR of 10%, fasting glucose of 122, calcium of 8.9. Total bilirubin of 0.5, AST of 40, ALT of 52, alkaline phosphatase 96. BNP 727. Total protein 8.0, albumin 3.7, gviljvx-rc-eufxjgzz ratio of 0.86. Influenza A and influenza B swabs both negative. ABG: On ventilator settings of pressure-regulated volume control with positive end-expiratory pressure (PEEP) of 7, FiO2 of 50%, respiratory rate 16, tidal volume 530 mL: A pH 7.117, pCO2 of 90.3, bicarbonate of 30 (calculated bicarbonate on ABG was 28.5), pO2 of 72.8, ABG excess of -3.5, ABG oxygen saturation of 92.9. Nasopharynx respiratory virus panel (PCR) showed human rhinovirus/enterovirus. ASSESSMENT: 1. Acute and chronic hypercapnic respiratory failure. Acute component likely secondary to upper respiratory viral illness and inability to compensate via respiration. Chronic component is likely secondary to the patient's obesity hypoventilation syndrome with patient not actively using his nocturnal ventilator at night and CO2 levels steadily increasing over time from baseline, making him more acidemic. 2. Human rhinovirus upper respiratory infection. 3. Obesity hypoventilation syndrome. 4. Obstructive sleep apnea, baseline on bilevel of 15/03. 5. End-stage renal disease, on hemodialysis scheduled for Tuesdays, , Saturdays. 6. Morbid obesity, body mass index (BMI) 51. RECOMMENDATIONS: -Critical care team spoke with patient's cocoa room operator, Dr. Curtis, this morning, and patient will be dialyzed today after not completing full treatment yesterday. This potentially can help improve respiratory status by removal of additional fluid. -Patient's FiO2 percentage on ventilation was decreased from 50% to 40% since he is a chronic CO2 retainer, and his oxygen saturation was 97%. Patient's ventilation will be titrated to a SpO2 of 86-90%. -Check next arterial blood gas (ABG) this afternoon. Patient's previous two ABGs at this point show positive trajectory in terms of decreasing pCO2 and increasing pH. The pH is still significantly acidemic, and CO2 is still significantly elevated, but patient's trajectory shows slow improvement. This improvement will likely remain a slow process due to significant increase in CO2 from lack of nocturnal ventilation over the past couple months. -Patient's tidal volume was set to 480 mL due to peak inspiratory pressures greater than 35. This was done to decrease risk of ventilator-associated barotrauma. -Patient was made npo due to sleepiness and difficulty to arouse at points. The risk of aspiration at this time is high. -Patient's tracheostomy tube is scheduled to be replaced every 3 months. It was last replaced in February 2019. Dr. Ortega (thoracic surgery) is scheduled to replace tracheostomy tube this evening (07/05). Thank you for allowing the pulmonary critical care team to be a part of Mr. Richard's care. Total critical care time spent on Mr. Richard's consultation, not including any procedures, was approximately 40 minutes. My faculty preceptor for this patient encounter was physically present during the encounter and was fully available. All aspects of the patient interview, examination, medical decision making process, and medical care plan development were reviewed and approved by the faculty preceptor. The faculty preceptor is aware and concurs with the plan as stated in the body of this note and will attest to such by his/her co-signature. MARGO
[2019-07-05] MEDS: SENOKOT S TAB PO SCH (21:00)
--- NOTE | 2019-07-05 21:09 | CR ---
DATE OF CONSULTATION: 07/05/2019 Respiratory panel showed rhinovirus. PROBLEMS: 1. Respiratory failure most likely related to chronic lung disease, chronic pulmonary emboli as shown on the CT angiogram and superimposed rhinovirus infection. His volume status does not seem to be any significantly decompensated; however, he may have some contribution from hypervolemia. We will try to optimize his volume status with a session of dialysis today. Will try to remove about 3 liters of fluid as tolerated. 2. End-stage renal disease. The patient is regularly dialyzed on Wednesday, and Wednesday schedule. He was dialyzed yesterday and his regular dialysis is due on . His volume status seems to be reasonably well-compensated. 3. Hypertension. His blood pressure seems to be stable and we will continue to monitor closely without any changes. 4. Embolus. However noted to have chronic pulmonary emboli with calcified pulmonary arteries. The patient is now admitted to intensive care unit and he is currently on the ventilator via his tracheostomy. A nephrology consultation was requested to assist in the management of end-stage renal disease and respiratory failure. PAST MEDICAL AND SURGICAL HISTORY SIGNIFICANT FOR: 1. Super morbid obesity. 2. Obstructive sleep apnea. 3. Respiratory failure requiring tracheostomy and chronic BiPap. 4. End-stage renal disease requiring maintenance hemodialysis on Wednesday, and Wednesday schedule. 5. History of severe secondary hyperparathyroidism. 6. History of chronic noncompliance with dietary and fluid restriction. 7. History of anxiety and depression. 8. History of paroxysmal atrial fibrillation. 9. History of Staphylococcus aureus bacteremia in the past related to his AV fistula. MEDICATIONS: Current medications include: Senokot 2 tablets at bedtime, amiodarone 200 mg daily, Dulcolax suppository 10 mg as needed for constipation, Coreg 6.25 mg twice a day, Proventil nebulizer 2.5 mg every 2 hours as needed for dyspnea, Preparation H for hemorrhoids as needed. [facility]: Tylenol 650 mg as needed for pain, albuterol sulfate 2.5 mg inhalation every 2 hours as needed for dyspnea, alprazolam 1 mg every 6 hours as needed for anxiety, amiodarone 200 mg daily, Dulcolax suppository 10 mg as needed for constipation, Coreg 6.25 mg twice a day, cinacalcet 90 mg daily, Colace 200 mg daily, vitamin D 94864 units once a week, escitalopram 10 mg daily, Auryxia 210 mg tablet 2 tablets twice a day with meals, gabapentin 300 mg three times a day, DuoNebs as needed for dyspnea, oxycodone 10 mg one tablet prior to each dialysis, Mirapex 0.125 mg at bedtime for restless legs, Senokot-S 2 tablets at bedtime, Renvela 48 100 mg three times a day with meals, multivitamin one tablet daily. ALLERGIES: He has allergy to AVELOX. PERSONAL AND SOCIAL HISTORY: The [facility] has been a [facility] due to chronic respiratory failure and multiple comorbid conditions. He has severe spinal stenosis and unable to stand up or walk. FAMILY HISTORY: Negative for end-stage renal disease. REVIEW OF SYSTEMS: The patient denies any fever or chills. He developed shortness of breath yesterday afternoon which worsened through the night. He is currently on the ventilator via his tracheostomy, but he is able to communicate. He denies any abdominal pain, nausea or vomiting. No history of hemoptysis or pleuritic type of chest pain. GI system is negative for rectal bleeding, nausea, vomiting. He does have hemorrhoids. Musculoskeletal system is significant for severe spinal stenosis and he is almost paraplegic. Hematological system is negative for chronic anticoagulation. Endocrine system is negative for diabetes. He has severe secondary hyperparathyroidism. Skin is negative for rash or ulcers. Neurologically, he is at his baseline mentation. PHYSICAL EXAMINATION: Temperature 96.7 degrees Fahrenheit, heart rate 62 per minute and respiratory rate 26 per minute. Blood pressure 144/85 mmHg and oxygen saturation 95% on 50% FiO2. Head is atraumatic. His face is somewhat flushed. Tracheostomy is in place and connected to the ventilator. Neck veins are difficult to be assessed. Heart sounds are distant and regular. Lungs have diminished breath sounds bilaterally. Abdomen: Obese, somewhat firm and bowel sounds are present. Extremities: Without any cyanosis or clubbing. He has a right forearm AV fistula. Neurologically, he is able to communicate. She has severe spinal stenosis with paraplegic legs. LABORATORY DATA: WBC count is 10.7, hemoglobin 13.7 and hematocrit 46. Platelets 129. Initial blood gas showed a pH of 7.01, pCO2 143 and pO2 85.7. A repeat blood gas now showed a pH of 7.117, pCO2 90, pO2 72.8 and bicarbonate 21.5. Chemistry showed a sodium level 137, potassium 5.6, CO2 of 30, BUN 35 and creatinine 6.42. Calcium is 8.9, AST 40, ALT 52 and alkaline phosphatase 96. BNP level 727 and troponin is less than 0.02. PROBLEMS: 1. Respiratory failure. The patient is noticed to have chronic pulmonary emboli on his CT angiogram. There was no acute embolus. His volume status does not seem to be significantly decompensated. Most likely rhinovirus infection superimposed on chronic lung disease has decompensated his respiratory status. We will try to remove some fluid later with dialysis today and see if that will help to optimize his respiratory status. 2. End-stage renal disease. The patient is regularly dialyzed on Wednesday, and Wednesday schedule. He did not complete his dialysis yesterday and we will dialyze him for 3 hours today and then again tomorrow. 3. Hyperkalemia. I feel that his hyperkalemia is related to respiratory acidosis and likely to improve once his acidosis is corrected. We will in addition dialyze him later this afternoon and try to correct his hyperkalemia. 4. Morbid obesity. This is a chronic issue and has been unchanged or may be slightly worse. He has been chronically noncompliant with dietary and fluid restrictions. 5. Secondary hyperparathyroidism. The patient has been on chronic therapy with Sensipar 90 mg daily. Once his condition improves, then I would resume his Sensipar and we will also check his phosphorus level. Thank you for involving me in the care of Mr. Richard. I will follow him along with you.
[2019-07-05] MEDS ORDERED: NS 500 ML IV ONE (22:00)
[2019-07-05 22:32] LABS: ABG BASE EXCESS -4.8 (-2.0-2.0); ABG HCO3 25.3 MEQ/L (22.0-26.0); ABG O2 SATURATION 62.5 % (95.0-99.0); ABG STANDARD HCO3 19.8 MEQ/L (22.0-26.0); ABG TOTAL CO2 27.5 MEQ/L (22.0-29.0)
[2019-07-05 22:33] LABS: ABG PARTIAL PRESSURE CO2 72.5 mmHg (35.0-45.0); ABG PARTIAL PRESSURE O2 33.9 mmHg (75.0-100.0)
[2019-07-05 22:34] LABS: ABG pH (ARTERIAL) 7.161 UNITS (7.350-7.450)
[2019-07-06] VITALS (49 sets, daily range): BP systolic 74–117; BP diastolic 43–62; O2SAT 95
[2019-07-06 05:04] LABS: HEMATOCRIT 42.4 % (42.0-52.0); MEAN CORPUSCULAR HEMOGLOBIN 34.6 pg (27.0-33.0); MEAN CORPUSCULAR HGB CONC 30.7 g/dl (32.0-36.5); MEAN CORPUSCULAR VOLUME 112.8 fl (80.0-96.0); PLATELET COUNT, AUTOMATED 125 10^3/uL (150-450); RED BLOOD COUNT 3.76 10^6/uL (4.30-6.10); WHITE BLOOD COUNT 9.4 10^3/uL (4.0-10.0)
[2019-07-06 05:41] LABS: ALBUMIN 3.4 GM/DL (3.2-5.2); ALT/SGPT 49 U/L (12-78); BILIRUBIN,TOTAL 0.5 MG/DL (0.2-1.0); BLOOD UREA NITROGEN 31 MG/DL (7-18); CALCIUM LEVEL 8.9 MG/DL (8.5-10.1); CARBON DIOXIDE LEVEL 27 MEQ/L (21-32); CHLORIDE LEVEL 101 MEQ/L (98-107); CREATININE FOR GFR 5.39 MG/DL (0.70-1.30); GLOMERULAR FILTRATION RATE 12.2 (>60); GLUCOSE, FASTING 101 MG/DL (70-100); POTASSIUM SERUM 4.2 MEQ/L (3.5-5.1); SODIUM LEVEL 137 MEQ/L (136-145); TOTAL PROTEIN 7.7 GM/DL (6.4-8.2)
[2019-07-06 06:13] LABS: ABG BASE EXCESS -0.6 (-2.0-2.0); ABG HCO3 25.6 MEQ/L (22.0-26.0); ABG O2 SATURATION 94.9 % (95.0-99.0); ABG PARTIAL PRESSURE CO2 47.8 mmHg (35.0-45.0); ABG PARTIAL PRESSURE O2 71.2 mmHg (75.0-100.0); ABG pH (ARTERIAL) 7.346 UNITS (7.350-7.450)
--- NOTE | 2019-07-06 07:40 | RO ---
DATE OF PROCEDURE: 07/05/2019 PREPROCEDURE DIAGNOSIS: Hypercapnic respiratory failure, in need of tracheostomy change secondary to tracheostomy malfunction. POSTPROCEDURE DIAGNOSIS: Hypercapnic respiratory failure, in need of tracheostomy change secondary to tracheostomy malfunction. PROCEDURE: Change of tracheostomy tube. SURGEON: Dr. Anatoly Ortega DIRECTOR PRESALES: ANESTHESIA: FINDINGS: The old tracheostomy tube did have a cuff on it, but there was no connection between the cuff and the outside, having probably been torn or ripped off. The tracheostomy was changed. The tracheostomy was replaced with an 80 XL TCD, 8.0 tracheostomy tube. PROCEDURE: The patient was on the ventilator and he was preoxygenated to 100% oxygen. After three minutes of preoxygenation, the ventilator was disconnected and the tracheostomy was removed. Prior to that, the stoma site was thoroughly cleaned and cleansed. The above tracheostomy tube was then replaced with the obturator in. It went fairly easily. The obturator was removed and the inner cannula was placed and the patient was suctioned. The patient tolerated the procedure well. His lowest saturation was 89%.
[2019-07-06 08:05] LABS: TROPONIN I < 0.02 NG/ML (< 0.10)
[2019-07-06] MEDS: CARVedilol 6.25 MG TAB PO SCH ×2 (09:00→21:00)
[2019-07-06] MEDS: AMIODARONE 200 MG TAB (PACERONE) PO SCH (09:00)
[2019-07-06] MEDS: ALBUTEROL SULFATE 2.5 MG/0.5 ML INH NEB SOLN INH PRN ×3 (10:11→23:40)
[2019-07-06 11:06] LABS: ABG BASE EXCESS -1.4 (-2.0-2.0); ABG O2 SATURATION 93.8 % (95.0-99.0); ABG PARTIAL PRESSURE CO2 49.1 mmHg (35.0-45.0); ABG PARTIAL PRESSURE O2 70.3 mmHg (75.0-100.0); ABG STANDARD HCO3 23.2 MEQ/L (22.0-26.0); ABG TOTAL CO2 26.5 MEQ/L (22.0-29.0); ABG pH (ARTERIAL) 7.325 UNITS (7.350-7.450)
[2019-07-06 11:42] LABS: INR 1.16; PROTHROMBIN TIME 14.5 SECONDS (11.8-14.0)
[2019-07-06 11:43] LABS: PARTIAL THROMBOPLASTIN TIME 29.3 SECONDS (25.0-38.4)
[2019-07-06 11:45] LABS: D-DIMER QUANT 790.54 ng/ml (<500)
--- NOTE | 2019-07-06 14:16 | CCN ---
DATE: 07/06/2019 NOTE: Mr. Richard remains critically ill with acute and chronic hypercapnic respiratory failure leading to mechanical ventilation. Prior to admission, Mr. Richard had been on nocturnal bilevel therapy. He gives varying reports as to how often he was wearing that. His sister did visit last evening and she is a nurse at [facility] and states that he had not been wearing it for a period of time. There was some question as to whether or not the circuit was actually working. Mr. Richard has told us various amounts of time that he did not wear it with the time ranging from a couple of weeks to a few months. It is also unclear whether he may have wearing it some, because apparently the alarms going off is what made the nurses decide to send him over to the emergency room that led to this admission. Additionally, in speaking to Dr. Curtis, he does wear it when he goes to dialysis, which is Wednesday, and Wednesday. Nonetheless, because of his extreme CO2 level (greater than 140), it was felt he needed to be controlled ventilation and he was placed on the ventilator yesterday on admission. However, it was difficult to effectively ventilate him as he had a non-cuffed tracheostomy. Dr. Ortega did change that to a cuffed trach last evening and his ventilatory settings were changed. He did well overnight with near normalization of his arterial blood gas. Last evening, he also had dialysis and toward the end of his run he became hypotensive and unresponsive for a few minutes. Unfortunately, most of the fluid that was removed had to be given back because of his hypotension. In speaking with Dr. Curtis, he will not have dialysis today. This morning, Mr. Richard indicates that he is feeling better. He indicates he is getting enough air. He denies any chest pain. He has a cough. Denies any abdominal pain or nausea. After receiving a 1750 mL of bolus last evening, his blood pressure is now in an acceptable range with a MAP greater than 55. OBJECTIVE/PHYSICAL EXAMINATION: General: Mr. Richard is lying in bed synchronous with the ventilator. He is responding appropriately by nodding and mouthing words to questions. Vital Signs: Temperature 97.5 which is his T-max, pulse 69, respiratory rate 18, blood pressure 90/51 with a MAP of 64, SPO2 91-95% on FiO2 of 0.3. HEENT: Anicteric. PERRL. Nares: Patent bilaterally. Moist mucosa. Oropharynx clear. Poor dentition, edentulous on top and some teeth on the bottom. No lesions. Neck: Supple, trach site is clean. Lymph: Without cervical or supraclavicular adenopathy. Chest: Normal shape. Lungs: Symmetric excursion, generalized diminished air entry, a few expiratory wheezes heard anteriorly on the left. No rhonchi or crackles. Normal to mildly prolonged expiratory phase. No accessory muscle usage or retractions. Cardiovascular: Distant, regular rate and rhythm, with normal S1 and S2. Abdomen: Bowel sounds positive, relatively soft, he indicates no tenderness. Unable to appreciate any organomegaly an examination, difficult secondary to body habitus. Extremities: Cool with the left extremity possibly cooler than the right. Nonetheless, palpable pedal pulses bilaterally. No clubbing or cyanosis. LABORATORY DATA: CBC from this morning showed a hemoglobin of 13, hematocrit 42.5, platelet count 125,000, white blood cell count 9,400. Chemistry from this morning showed a sodium 137, potassium 4.2, chloride 101, bicarbonate 27, anion gap 9, BUN 31, creatinine 5.4, glucose 101, lactic acid 1.8, calcium 8.9, total bilirubin 0.5, AST 15, ALT 49, alkaline phosphatase 89, troponin-I less than 0.02, total protein 7.7, albumin 3.4. Arterial blood gases listed from last night was actually a mixed venous sample, but did show that the pH was improving once ventilator settings were changed. Arterial blood gas from this morning was 7.346/48/71 with measured saturation of 95% a base excess of -0.4. This was on FIO2 of 0.25, tidal volume of 550, PEEP of 8 and rate of 69. IMPRESSION: 1. Acute and chronic hypercapnic respiratory failure. The acute portion is felt secondary to rhinovirus. Mr. Richard had previously been on nocturnal bilevel, though with an non-cuffed trach it is not how much of the PEEP was present. 2. Rhinovirus. 3. Increased cough. This is most likely secondary to the rhinovirus. He did have a sputum culture sent off last night, but care needs to be taken in interpreting that as he has an open trach and likely is colonized and we know from his chest CT scan on admission that he does not have a pneumonic infiltrate. He also has been afebrile and a normal white count. 4. End-stage renal disease, dialysis dependent. 5. Obesity hypoventilation syndrome. 6. Obstructive sleep apnea. 7. Extreme obesity. RECOMMENDATIONS: 1. Will attempt to change him to his outpatient bilevel settings at this time. This will also allow us to see what type of tidal volumes these settings are generating. 2. If he does need to return to conventional mechanical ventilation, will need to change his settings as his plateau pressure is higher than I would like. Will need to decrease his tidal volume. Additionally we need to get an accurate measurement as I have had various reports on how tall he is and that is the basis for tidal volume setting. 3. Continue supportive care for his rhinovirus. 4. As noted above, he does have a sputum culture pending, but care needs to be taken on how to interpret the results given an open trach and living in a assisted and a CT that does not show any infiltrate. Additionally he has known rhinovirus. ADDENDUM: Mr. Richard was changed over to his outpatient bilevel settings which are pressure support of 22 and a PEEP of 5. On these settings, he had variable tidal volumes and there was an occasional time he did not trigger the vent. However, in general, his tidal volume was around 800. There were a few times it was 1100. His respiratory rate on these settings is in the teens. His arterial blood gas on this setup was 7.33/49/70 with a measured saturation of 94% and a base excess of -1.4. I had planned to change him over to his outpatient bilevel setting which is given through a Trilogy. There are only two devices that they approve for use with a tracheostomy and one is a Trilogy and the other is a Vision. Unfortunately, we do not have a means of changing any settings on the Trilogy. That would mean that the ventilator would need to go back to the home care company to change settings, which makes it difficult to optimize. I am somewhat concerned regarding his pH decrease with this change. I feel it would be safer to keep him on these settings and recheck a gas later today and tomorrow morning. It can be anticipated that his bicarbonate will decrease the further he gets out from dialysis and he will lose his renal compensation. With obesity hypoventilation, he is not likely to be able to effectively compensate for that, particularly in the setting of his rhinovirus. Will plan on an arterial blood gases later this afternoon as well as tomorrow morning. Depending upon the gas values, the ventilator may need to be adjusted. Hopefully, that will not be the case, but if it is, it seems it would be best to have the final adjustments before transporting the equipment to and from the home care company. Critical care time 35 minutes, not including procedure time.
[2019-07-06 16:15] LABS: ABG BASE EXCESS -0.2 (-2.0-2.0); ABG HCO3 26.8 MEQ/L (22.0-26.0); ABG O2 SATURATION 95.9 % (95.0-99.0); ABG PARTIAL PRESSURE O2 83.1 mmHg (75.0-100.0); ABG STANDARD HCO3 24.3 MEQ/L (22.0-26.0); ABG TOTAL CO2 28.5 MEQ/L (22.0-29.0); ABG pH (ARTERIAL) 7.314 UNITS (7.350-7.450)
--- NOTE | 2019-07-06 18:01 | IPN ---
DATE: 07/06/2019 Mr. Richard is seen this morning on his bedside in intensive care unit. He was dialyzed last evening and tolerated dialysis reasonably well until at the end when he became hypotensive and unresponsive. He was given a normal saline bolus and recovered; however, his blood pressure remained low for awhile. He required almost 2 liters of normal saline before his blood pressure improved. He was mostly asymptomatic after he recovered from his syncope. His trach was changed and remains on the ventilator with improved blood gas. PHYSICAL EXAMINATION: Temperature 97.5 degrees Fahrenheit, heart rate 70 per minute and respiratory rate 18 per minute. Blood pressure 90/50 mmHg and oxygen saturation 94-95%. His head is atraumatic. Tracheostomy is in place. Neck veins are difficult to be assessed. Heart sounds are distant but regular on the monitor. Lungs have bilateral expiratory wheezing. Abdomen: Obese, soft and nontender and bowel sounds are normal. Extremities: Without any cyanosis or clubbing. Right forearm arteriovenous (AV) fistula is patent. Neurologically he is awake and at his baseline mentation. He is answering questions appropriately. Today's labs show sodium 137, potassium 4.2, CO2 of 27, BUN 31 and creatinine 5.39. Glucose 101 and lactic acid 1.8. Troponin is less than 0.02. Total protein 7.7 and albumin 3.4. WBC count is 9.4, hemoglobin 13.0 and hematocrit 42.4. INR is 1.16. PROBLEMS: 1. Respiratory failure related to chronic respiratory insufficiency with obstructive sleep apnea, chronic pulmonary emboli with prior tracheostomy. He has now superimposed rhinovirus infection, which probably decompensated him. He is not volume overloaded by any means. Yesterday we tried to remove fluid; however, he became hypotensive and then we had to give the fluid back. At this point, he is doing well with blood pressure improved and we will hold off on further dialysis. 2. End-stage renal disease. The patient was dialyzed last evening, and his volume status is well compensated as mentioned above. His electrolytes are within normal range. We will reevaluate him tomorrow for dialysis. At this point, there is no emergent need for dialysis today. 3. Hyperkalemia. Potassium level corrected with dialysis last evening. Today's potassium level is 4.2. He is not being fed at this time, and we anticipate that his potassium level will remain normal for the next 24-48 hours. My plan is to hold off dialysis until Wednesday. He will be reevaluated again tomorrow. 4. Hypotension. Most likely related to acute viral infection and hypovolemia caused by fluid removal by dialysis. His blood pressure has improved, and he is currently asymptomatic. He is not on any antihypertensive medications or pressors at present. Other issues are being addressed by critical care and hospitalist service.
[2019-07-06] MEDS ORDERED: fentaNYL 100 MCG/2 ML INJECTION (J3010) IV ONE (20:45)
[2019-07-06] MEDS: SENOKOT S TAB PO SCH (21:00)
[2019-07-06] MEDS ORDERED: ACETAMINOPHEN 500 MG TAB PO PRN (21:00)
[2019-07-06] MEDS ORDERED: ACETAMINOPHEN 650 MG SUPP PR PRN (21:45)
[2019-07-07] VITALS (11 sets, daily range): BP systolic 97–131; BP diastolic 51–61; O2SAT 92–98
--- NOTE | 2019-07-07 00:44 | IPNPDOC ---
Text Note Date of Service The patient was seen on 07/07/19. NOTE Subjective: No complaints Objective Vitals: General: Lying in bed, awake, synchronous with the ventilator, and responds to questions with shaking head or nodding HEENT: PERRLA, EOMI, anicteric, no pallor Chest: Scattered wheezing, no crackled or rhonchi, poor air movement Cardiovascular: normal S1 and S2, RRR, no murmurs Abdomen: Normoactive bowel sounds, distended abdomen, non tender, body limited by habitus Extremities: Cool extremities, palpabale pulses 49-year-old morbidly obese male with a BMI of 51 with obesity hypoventilation syndrome, chronic hypercapnic respiratory failure status post tracheostomy, residing at [facility], with ESRD on HD TThS, presented to the emergency room after being found to have increasing respiratory distress and found to have rhinovirus. Acute hypoxic and hypercapnic respiratory failure on chronic hypercapnic resp iratory failure secondary to human rhinovirus. -The patient is currently on ventilation managed by sales operations lead, Dr. Lenny Bradley. -CT of the chest shows chronic pulmonary embolism with history of chronic DVTs. -The patient will be kept nothing by mouth for now until mentation is improved. -s/p Solu-Medrol in the emergency room, 125 mg. -Pred 40 for 5 days Acute Metabolic encephalopathydue to acute on chronic hypercapnic respiratory failure with acute respiratory acidosis, managed by vent management, sales operations lead, Dr. Bradley, -appreciate recs and vent management Chronic pulmonary embolism (PE) and deep venous thrombosis, probable pulmonary hypertension due to obesity hypoventilation syndrome and chronic pulmonary embolism. -Not on anticoagulation due to perinephric bleeding prior Acute Metabolic encephalopathy due to acute on chronic hypercapnic respiratory failure with acute respiratory acidosis, managed by vent management, sales operations lead, Dr. Bradley, has been consulted. Suicide Ideation/Severe depression pt said to ICU nurse that he wants to drive his scooter into traffic to commit suicide. -Psychiatry consulted, to see patient -Has sitter End-stage renal disease, on maintenance hemodialysis, c/b this admission by hyperkalemia due to ESRD. -Dialysis needs per nephrology management., appreciate rec - may go off telemetry monitoring. VS,Alexandere, I+O VS, Fishbone, I+O Laboratory Tests 07/06/19 04:55 Red Blood Count 3.76 L, Mean Corpuscular Volume 112.8 H, Mean Corpuscular Hemoglobin 34.6 H, Mean Corpuscular Hemoglobin Concent 30.7 L, Red Cell Distribution Width 14.3, Calcium Level 8.9, Aspartate Amino Transf (AST/SGOT) 15, Alanine Aminotransferase (ALT/SGPT) 49, Alkaline Phosphatase 89, Total Bilirubin 0.5, Total Protein 7.7, Albumin 3.4 Vital Signs Date Time Temp Pulse Resp B/P (MAP) Pulse Ox O2 Delivery O2 Flow Rate FiO2 07/07/19 00:00 98.8 64 16 113/56 (75) 94 30 07/06/19 23:41 Ventilator 07/05/19 04:12 10.0 I&O- Last 24 Hours up to 6 AM 07/07/19 06:00 Intake Total 0 ml Output Total 0 ml Balance 0 ml ELTON BARAJAS MD Jul 07, 2019 00:44
[2019-07-07 06:03] LABS: ALBUMIN 3.2 GM/DL (3.2-5.2); CALCIUM LEVEL 8.6 MG/DL (8.5-10.1); CREATININE FOR GFR 7.08 MG/DL (0.70-1.30); GLOMERULAR FILTRATION RATE 8.9 (>60); PHOSPHORUS LEVEL 5.5 MG/DL (2.5-4.9); POTASSIUM SERUM 4.6 MEQ/L (3.5-5.1)
[2019-07-07 06:05] LABS: ABG BASE EXCESS -2.9 (-2.0-2.0); ABG HCO3 24.1 MEQ/L (22.0-26.0); ABG PARTIAL PRESSURE CO2 51.1 mmHg (35.0-45.0); ABG PARTIAL PRESSURE O2 150.8 mmHg (75.0-100.0); ABG STANDARD HCO3 22.1 MEQ/L (22.0-26.0); ABG TOTAL CO2 25.7 MEQ/L (22.0-29.0); ABG pH (ARTERIAL) 7.292 UNITS (7.350-7.450)
[2019-07-07 06:35] LABS: HEMATOCRIT 38.1 % (42.0-52.0); HEMOGLOBIN 11.9 g/dl (13.5-17.5); MEAN CORPUSCULAR HEMOGLOBIN 33.3 pg (27.0-33.0); MEAN CORPUSCULAR HGB CONC 31.2 g/dl (32.0-36.5); MEAN CORPUSCULAR VOLUME 106.7 fl (80.0-96.0); PLATELET COUNT, AUTOMATED 129 10^3/uL (150-450); RED BLOOD COUNT 3.57 10^6/uL (4.30-6.10); WHITE BLOOD COUNT 8.7 10^3/uL (4.0-10.0)
[2019-07-07] MEDS: ALBUTEROL SULFATE 2.5 MG/0.5 ML INH NEB SOLN INH PRN ×2 (07:29→14:47)
--- NOTE | 2019-07-07 09:12 | MHCR ---
DATE OF CONSULTATION: 07/06/2019 CHIEF COMPLAINT: Feels depressed. SUBJECTIVE: He is 49 years old. He is a resident at the [facility]. He has been admitted to the inpatient psychiatric unit, and I have been asked to see him as he had indicated desires of taking his own life. Chart is reviewed. Patient is interviewed. He has an extensive medical history, several medical problems, chronic renal failure, morbid obesity, has in fact end stage renal disease, hypertension, history of chronic pulmonary emboli, has a tracheostomy and chronic BiPAP, severe secondary hyperparathyroidism, history of paroxysmal atrial fibrillation and in the past has had Staphylococcus aureus bacteremia related to his arteriovenous fistula. Stays at the [facility], has been there for the last 2 or 3 years or so. It should be noted that the history is obtained from the chart. The patient is interviewed. He has a tracheostomy and cannot vocalize very well, but tends to "voice" his words and does so coherently. Has a history of depression and anxiety. I had seen him on consultation about 2 years or so ago on a coupe of occasions and also saw him at the outpatient clinic near that time for a few visits, he did not followup with any regularity and stopped coming. He attends dialysis three times a week. He sees Dr. Curtis and has been doing so for many years and generally is quite regular with that. Says that there are times when he gets depressed, this is not pervasive, but tends to linger on occasions. Other times he is anxious and when depressed, quite often tends to get irritable and frustrated. There are other times, it should be noted, he gets irritated even when doing relatively well. In the past, was diagnosed with depressive disorder, not otherwise specified, and there were concerns that he had pathological personality traits, which tended to interfere with his functioning and possibly his adherence to treatment recommendations. This very possibly has been noted recently as well, as he has not been regularly attending to the tracheostomy, this outlined in the pulmonology assessment, Dr. Bradley has seen him. The patient lost his mother. Says has had difficulties with that over the last couple of years or so. He says that she about 3 years ago. Says at times gets depressed, generally tends to keep to himself, stays in his room at the [facility] and does not engage much with the other residents, says prefers it that way, even when doing well. He says that will go out and about in the floor, he is on the third floor, in the early hours of the morning as it is quiet. Says takes meals in his own room, feels the place is noisy and he suggests that he looks as his room as his home. Acknowledges at times gets frustrated with keeping up with care, his various medical problems, but has continued attending dialysis fairly regularly. It should be noted, most recently has had periods of fluid retention and other periods where he has been hypotensive and had passed out. Has a motorized wheelchair at the [facility], says has used it to get out of the home as well. Says at times will go to the mall or to the [email or web address] and that he is out a couple of times a month at least during the summer months, in particular. Says that there are times when he has felt somewhat hopeless. He feels that this may be a bit more frequent in the last few months or particularly since his mother . He acknowledges that there are times when he thinks of taking his life, but says "it is dark." Denies any such plans or desires now. Denies that he has ever had to struggle with such thoughts in the last few months. Per the chart, has had periods when he has been somewhat irritable at [facility] and one or two occasions has banged the desk there with his fist. Says would tend to get more frustrated when his mother was not doing well and would want to punch holes in walters, unclear if he actually went about doing that. Has a sister whom he is in contact with regularly. He is aware that his sister used to work at the inpatient psychiatry unit and that I know her. He has given me permission to speak with her if necessary. Says has recently been visited by his daughter, who tends not to visit when he is at [facility]. PAST PSYCHIATRIC HISTORY: As indicated above. Please refer to previous summaries. He has been seen in the outpatient clinic for a brief while, this was about 10 years ago. MEDICAL HISTORY: As indicated above. Several medical problems, including obesity, obstructive sleep apnea, respiratory failure, end stage renal disease and others mentioned above. MEDICATIONS BEFORE COMING TO THE HOSPITAL: - Senokot - amiodarone - Dulcolax - Proventil - Coreg - Tylenol He is also on alprazolam 1 mg every 6 hours as needed for anxiety. Says uses it and that on occasions it makes him a bit tired. He finds it effective. He is also on Lexapro 10 mg daily. OTHER MEDICATIONS: - Coreg 6.25 mg twice a day - gabapentin 300 mg three times a day - Mirapex 0.125 mg at bedtime - Auryxia 210 mg two tablets twice a day with meals ALLERGIES: AVELOX. SOCIAL HISTORY: As indicated above. He has been at [facility] for the last few years. He has a daughter who visits him. He has a sister whom he is in regular contact with and who in fact works at [facility], she is a nurse there. MENTAL STATUS EXAMINATION: He is lying in bed. He is neat. He has a tracheostomy. He is cooperative. There is no agitation. No psychomotor retardation. No abnormal movements noted. There is no evidence of dysphasia as such. No receptive dysphasia, nor expressive either, except that he cannot voice his words, tends to attempt to vocalize them, does so coherently. No formal thought disorder. Appeared to have no difficulties answering questions, most of which were "yes and no" answers. He has a broad affect. He denies any suicidal thoughts or intents. No evidence of any thoughts of harming anyone else, nor of any psychosis. Intellect is average. No fluctuation of consciousness. He is able to maintain and shift attention quite adequately. He is alert. He is oriented to place, person and time. He knew that it was the fall, but I did not test him formally for date. Short term memory seemed to be okay. Judgment is good. Insight is fair to good. VITAL SIGNS: Most recently, blood pressure 97/54, pulse 74, temperature 98.1. INVESTIGATIONS: Complete blood count today, white cell count 9.4, hemoglobin is 13, MCV is 112.8, platelets 125. Metabolic profile done today shows a sodium of 137, BUN 31, creatinine 5.39. The other electrolytes essentially within normal limits. TSH done yesterday was 3.2. ASSESSMENT: 1. Other specified depressive disorder. 2. Rule out major depressive disorder. 3. Chronic medical problems with their exacerbations. 4. Enduring circumstances. 5. Mother's . He has been depressed, this has tended to fluctuate, not necessarily pervasive, further complicated by multiple and chronic medical problems. When depressed, he is more irritable, frustrated, and has a difficult time with motivating himself, including when looking after his needs or participating in some activities related to his care. He is coherent, able to communicate as described above. Denies any suicidal thoughts, plans or intents at present. They do occur at times when he is frustrated. There is no evidence of any delirium, nor of any psychosis. RECOMMENDATIONS: 1. Optimize current medical care. 2. Increase Lexapro to 15 mg daily as long as that is okay with the hospitalist and nephrology. This is to help with his depressed mood and secondarily, irritability. The patient has had pathological personality related factors as well, and unsure as to how prominently they impact his functioning and overall well being in recent times. Consistent and regular verbal support, including when he returns to [facility] when he is able to. He has been seeing a social worker palliative care there regularly. Thank you for the consultation. If there are any questions, please call. The assessment took 45 minutes.
--- NOTE | 2019-07-07 09:57 | IPN ---
DATE OF VISIT: 07/07/2019 I attended Matthew Jose Manuel. The patient has been examined and the chart reviewed. He is awake, alert and appropriate. He states he is comfortable on his current ventilator settings of pressure support mode 22 with a PEEP of 5. FiO2 30%. The most recent blood gas shows a pH of 7.292, pcO2 of 51.1 and pAO2 of 150.8. Sodium 138, potassium 3.6, chloride 102, CO2 23, BUN 50, creatinine 0.08. White blood cell count 8.7, hemoglobin 11.9 and platelet count 129,000. No differential today. On exam, he is awake, alert and appropriate. Trache site is clean and dry. Membranes are moist. Chest shows diminished, but symmetric expansion. There is some end expiratory squeak in the mid zones. There may be some basilar crackles, although his body habitus makes the exam difficult. Cardiac exam generally regular. Peripheral pulses diminished with dependent edema. Abdomen morbidly obese. Extremities show no cyanosis or clubbing. Neurologically, he is awake, alert and appropriate. IMPRESSION: 1. Acute on chronic respiratory failure with hypoxemia and hypercapnia. 2. Severe restrictive ventilatory impairment. 3. Renal failure. 4. Metabolic acidosis secondary to the above. RECOMMENDATIONS: At this point, he appears to be doing reasonably well on his current ventilator settings which match his Trilogy settings. Hopefully, we will be able to get his own device fixed. From my standpoint, given the fact he is reasonable on his current and prior settings, he can be allowed out of the intensive care unit at least to the step down unit/progressive care unit (PCU). At this point, will continue his current regimen. Likely will need dialysis today. Further recommendations will be made in the progress record as new information becomes available.
[2019-07-07] MEDS ORDERED: HEPARIN 1,000 UNITS/ML 10ML VIAL (FOR RADIOLOGY& DIALYSIS ONLY) IV ONE (11:00)
[2019-07-07] MEDS: CARVedilol 6.25 MG TAB PO SCH ×2 (11:04→21:44)
[2019-07-07] MEDS: AMIODARONE 200 MG TAB (PACERONE) PO SCH (11:04)
--- NOTE | 2019-07-07 12:40 | IPN ---
DATE OF SERVICE: 07/07/2019 SUBJECTIVE: Patient is currently still on ventilator via trach. He continues to have secretions. Denies any subjective fevers but had a T-max of 100.4 at 2000 on 07/06/2019. Denies any chills, chest pain, pressure, tightness, nausea, vomiting, abdominal pain. He is continued on nothing by mouth status due to his respiratory acidosis. He currently is awake, alert, oriented to self. He is able to mouth responses. White count is normal this morning. Urine output is zero. He is currently on hemodialysis but did not tolerate this on due to low blood pressures of 81/50. Per nursing, patient has not had any recurrent suicide ideation or homicidal thoughts. He currently says that his sister used to visit him at the [facility]. He has no friends. He denies wanting to do harm to himself once he is improved. Current gases have improved, CO2 level of 51 from peak level of 143.2 on admission. PH has improved to 7.2 from admission of 7.01. OBJECTIVE: PHYSICAL EXAMINATION: T-max of 100.4, current temperature 97.3, pulse 64 sinus rhythm, respiratory rate of 16, blood pressure 131/61, 96% on ventilator via trach, 30% FiO2. Generally, patient is awake, alert, oriented to person. Able to respond to questions appropriately. No use of accessory respiratory muscles. There is mucoid secretions coming out of his tracheostomy thus neck is thick, unable to assess for jugular venous distention. No pallor. No icterus. No jaundice. No use of respiratory accessory muscles. Lungs are diminished with bilateral rhonchi. Distant breath sounds. Heart: S1, S2, sinus rhythm. Distant heart sounds. Abdomen is obese, soft, nontender, nondistended, positive bowel sounds. Difficult to assess for hepatosplenomegaly. Extremities: No cyanosis, clubbing or pitting edema. Patient has a right AV fistula which is patent. LABORATORY DATA: ABG: pH was 7.29, CO2 of 51, O2 of 150. White count 8.7, hemoglobin 11.9, hematocrit 38, platelet count 129. INR of 1.16 on 07/06/2019. Metabolic panel: Sodium 138, potassium 4.6, chloride 102, bicarbonate 23, BUN 50, creatinine 7.08, glucose 86. Microbiology: Human rhinovirus 07/05, sputum culture 07/05 pending. IMAGING STUDIES: CT chest 07/05/2019: Tracheostomy in the trachea, calcified filling defects in the right upper and right lower lobe compatible with chronic pulmonary emboli. No acute pulmonary embolism. Chronic deep venous thrombosis (DVT) with calcified filling defects in bilateral brachiocephalic veins and superior vena cava. Dilation of pulmonary artery trunk which may indicate pulmonary artery hypertension. Cylindrical bronchiectasis and atelectasis in the right middle lobe. Splenomegaly, sclerosis of vertebral bodies predominately adjacent to endplates and sclerosis of the sternum which can be seen in renal osteodystrophy. ASSESSMENT AND PLAN: This is a 49-year-old supermorbidly obese male with BMI of 57.5 [facility] resident due to inability to ambulate and perform activities of daily living. Chronic hypoxic and hypercapnic respiratory failure status post tracheostomy with endstage renal disease on chronic hemodialysis on Wednesday, , Wednesday, was found to have elevated CO2 level, altered mental status secondary to human rhinovirus and admitted for ventilation management. Current active issues are as follows: 1. Acute on chronic hypercapnic respiratory failure with acute respiratory acidosis secondary to human rhinovirus/enterovirus. Patient is currently on contact isolation. Ventilatory management is done by our environment artist Dr. Bradley whose help is greatly appreciated. His respiratory acidosis is significantly improved with CO2 level of 51. He is awake, alert, oriented and appropriately conversing at the bedside and patient's pH is improved from 7.01 on admission to 7.29 currently. He is kept nothing by mouth due to risk of aspiration. Will obtain a swallow evaluation today. Patient's trilogy is malfunctioning and will need to be evaluated in the hospital prior to changing. 2. Human rhinovirus currently on droplet isolation. This is most likely cause of patient's acute decompensation with acute respiratory acidosis leading to acute on chronic hypercapnic respiratory failure. Sputum culture has been sent to rule out bacterial infection. CT chest is negative for pneumonia, effusion or congestive heart failure. 3. Endstage renal disease on maintenance hemodialysis via AV fistula. Dr. Curtis, nephrology, has been consulted for his dialysis needs. Due to low blood pressure systolic of 85 yesterday, patient was unable to complete dialysis. Will defer management to sales product specialist. Strict input and output, daily weights. Patient is anuric at baseline. He currently does not have any metabolic acidosis or hyperkalemia. 4. Obesity, hypoventilation syndrome and obstructive sleep apnea, currently being managed via trach and ventilator by environment artist Dr. Bradley. Patient will need to continue BiPAP therapy as outpatient, there is secondary pulmonary arterial hypertension from his chronic pulmonary emboli as well as untreated obstructive sleep apnea. 5. Chronic pulmonary emboli and chronic deep venous thrombosis (DVT) currently on no anticoagulation. Patient had bled into the kidneys when he was placed on warfarin for atrial fibrillation and had not been on any anticoagulation in the past. Patient does not have any history of IVC filter placement. 6. Atrial fibrillation currently sinus rhythm, appears to be rate controlled with rate of 60-74. He is currently on amiodarone 200 daily and Coreg. Unfortunately these have not been given due to nothing by mouth status and risk of aspiration. If needed, will give intravenous metoprolol every 6 hours for rate control. Patient is not on anticoagulation due to previous bleeding into the kidneys with significant peripheric hematoma requiring intervention according to Dr. Kimball. 7. Suicide ideation due to severe depression. Psychiatrist has been consulted and due to acute hypercapnic respiratory failure, no antidepressants have been given. 8. Supermorbid obesity with BMI of 57.5 complicating his care with secondary pickwickian syndrome with obesity, hyperventilation syndrome, obstructive sleep apnea with secondary pulmonary hypertension, chronic and currently being managed with a trach and ventilator. 9. Chronic constipation on Senokot. 10. Diet nothing by mouth status due to risk of aspiration. Speech therapy evaluation at the bedside. [facility]
[2019-07-07] MEDS: SENOKOT S TAB PO SCH (21:00)
--- NOTE | 2019-07-07 22:02 | IPN ---
DATE: 07/07/2019 Mr. Richard is seen this morning on his bedside. He remains on the ventilator with his home settings. He is comfortable and wants to eat. Nursing staff reports that swallowing evaluation has been done this morning. In the meantime, his blood pressure has improved and he is at his baseline mentation. PHYSICAL EXAMINATION Temperature 98.4 degrees Fahrenheit, heart rate 60 per minute and oxygen saturation is 94%. His head is atraumatic. Neck is supple and tracheostomy is in place. Jugular venous distention (JVD) difficult to be assessed. Heart: Sounds are distant and lungs have bilateral air entry with minimal expiratory wheezing. Abdomen: Obese, soft and nontender and bowel sounds are present. Extremities: Without any cyanosis or clubbing. Right forearm AV fistula is patent. LABS: Today's labs show WBC count 8.7, hemoglobin 11.9 and hematocrit 38. Platelets 129. Sodium 138, potassium 4.6, CO2 23, BUN 50 and creatinine 7.08. Calcium 8.6 and phosphorus 5.5. PROBLEMS 1. End-stage renal disease. The patient was last dialyzed on Wednesday and we will plan to dialyze him this afternoon. His volume status is reasonably well-compensated and we will try to remove only about 1 liter of fluid as tolerated. 2. Respiratory failure. The patient remains on the ventilator via his tracheostomy. He is oxygenating well now. His decompensation was attributed to rhinovirus infection. Volume status has been well compensated. 3. Anemia. His anemia is mild and stable and does not need any intervention. 4. Hypotension. He did have significant hypotension following his last dialysis and required fluid boluses. His blood pressure has improved and this is about his baseline. He is not on any antihypertensive meds. We will remove only about 1 liter of fluid as tolerated.
[2019-07-08] VITALS (18 sets, daily range): BP systolic 91–124; BP diastolic 53–65; O2SAT 81–98
[2019-07-08 06:47] LABS: HEMATOCRIT 40.1 % (42.0-52.0); HEMOGLOBIN 12.6 g/dl (13.5-17.5); MEAN CORPUSCULAR HEMOGLOBIN 34.6 pg (27.0-33.0); MEAN CORPUSCULAR HGB CONC 31.4 g/dl (32.0-36.5); MEAN CORPUSCULAR VOLUME 110.2 fl (80.0-96.0); PLATELET COUNT, AUTOMATED 132 10^3/uL (150-450); RED BLOOD COUNT 3.64 10^6/uL (4.30-6.10); WHITE BLOOD COUNT 7.7 10^3/uL (4.0-10.0)
[2019-07-08 07:14] LABS: ALBUMIN 3.2 GM/DL (3.2-5.2); CALCIUM LEVEL 9.3 MG/DL (8.5-10.1); CREATININE FOR GFR 4.63 MG/DL (0.70-1.30); GLOMERULAR FILTRATION RATE 14.5 (>60); PHOSPHORUS LEVEL 4.1 MG/DL (2.5-4.9)
[2019-07-08] MEDS: CARVedilol 6.25 MG TAB PO SCH ×2 (08:29→21:20)
[2019-07-08] MEDS: AMIODARONE 200 MG TAB (PACERONE) PO SCH (08:29)
[2019-07-08] MEDS: ALBUTEROL SULFATE 2.5 MG/0.5 ML INH NEB SOLN INH PRN ×2 (08:33→17:48)
--- NOTE | 2019-07-08 15:01 | IPN ---
DATE: 07/08/2019 I attended Matthew Richard. He is awake, alert and appropriate. He is now on the Pulmonetic ventilator. We are awaiting his Trilogy getting repaired by home care. He says he is quite comfortable. Wonders if he could start being off the ventilator during the day as he is at home and this will be reviewed further below. He is back down to his usual FiO2 requirements. He is being dialyzed per his normal schedule again. T-max overnight 97.6, heart rate generally in the 60s, blood pressure 90-120s. HEENT otherwise normocephalic, atraumatic. Pupils react. Trache site is clean and dry. Chest shows diminished but symmetric expansion. There is some end inspiratory and late expiratory squeak noted. Breath sounds are diminished bilaterally, especially dependently. No other focal adventitious breath sounds are identified. Heart exam distant, generally regular. Peripheral pulses diminished. Edema is unchanged. Abdomen is morbidly obese with active bowel sounds. Extremities no cyanosis or clubbing. Neurologically he is awake, alert and appropriate, moves all extremities. IMPRESSION: 1. Acute on chronic respiratory failure. 2. Restrictive ventilatory impairment secondary to body habitus. 3. Renal failure. 4. Chronic metabolic acidosis on the basis of the above. At this point, if he would like to try being off for short periods during the day as tolerated I have no problems with that. He is in a monitored setting. I am in agreement with his care otherwise as outlined above by nephrology and the primary service. We await his home ventilator being fixed as once that is will be nearer to discharge. Further recommendations will be made in the progress record as new information becomes available.
--- NOTE | 2019-07-08 19:20 | IPNPDOC ---
Text Note Date of Service The patient was seen on 07/08/19. NOTE Subjective: No complaints, feeling much better, told me ate a sandwich yesterday Objective Vitals: please see below General: Lying in bed, awake, responds to questions with mouthing HEENT: PERRLA, EOMI, anicteric, no pallor Chest: Diminished sounds at bases but without hernan crackles and some upper airway transmitted sounds Cardiovascular: normal S1 and S2, RRR, no murmurs Abdomen: Normoactive bowel sounds, obese abdomen, non tender Extremities: Cool extremities, palpable pulses, 2+ stable LE edema Labs: Please see below Imaging: reviewed, no new imaging Assessment: 49-year-old morbidly obese male with a BMI of 51 with obesity hypoventilation syndrome, chronic hypercapnic respiratory failure status post tracheostomy, residing at [facility], with ESRD on HD TThS, presented to the emerge ncy room after being found to have increasing respiratory distress and found to have rhinovirus. Plan: Acute hypoxic and hypercapnic respiratory failure on chronic hypercapnic respira tory failure: 2/2 Rhinovirus -Much improved -Patient will need to continue BiPAP therapy as outpatient, as he has secondary pulmonary arterial hypertension from his chronic pulmonary emboli as well as untreated obstructive sleep apnea. -His home vent needs repair and will need to be functional for a safe discharge, will discuss at rounds -Currently on PSV 22/5 and doing well -Albuterol Q2H PRN -Goal sat 88-92% -appreciate pulm consult -CTEPH and deep venous thrombosis, with secondary pulmonary hypertension due to OHS and chronic pulmonary embolism, with no anticoagulation due to perinephric bleeding prior an no IVC filter (unclear why) Acute Metabolic encephalopathy: resolved, was due to hypercarbia Suicide Ideation/Severe depression: Patient told ICU nurse that he wants to drive his scooter into traffic to commit suicide. -Psychiatry consulted, no antidepressants have been suggested to date End-stage renal disease, on HD: complicated this admission by hyperkalemia and hypotension -HD managed by nephrology, appreciate rec - may go off telemetry monitoring Atrial fibrillation: currently sinus rhythm -continue amiodarone 200 daily -continue coreg 6.25 BID Morbid obesity with BMI of 57.5: Has been complicating his care with secondary pickwickian syndrome with obesity, hyperventilation syndrome, obstructive sleep apnea with secondary pulmonary hypertension, chronic and currently being managed with a trach and ventilator. Chronic constipation: Continue senna Diet: Now on a renal diet Dispo: pending clinical improvement and home vent repair for safe discharge. VS,Fishbone, I+O VS, Fishbone, I+O Laboratory Tests 07/08/19 06:30 Red Blood Count 3.64 L, Mean Corpuscular Volume 110.2 H, Mean Corpuscular Hemoglobin 34.6 H, Mean Corpuscular Hemoglobin Concent 31.4 L, Red Cell Distribution Width 14.3, Anion Gap 8 Vital Signs Date Time Temp Pulse Resp B/P (MAP) Pulse Ox O2 Delivery O2 Flow Rate FiO2 07/08/19 16:00 30 07/08/19 16:00 98.6 63 16 115/58 (77) 95 07/08/19 13:00 BIPAP/CPAP 07/08/19 12:00 6.0 I&O- Last 24 Hours up to 6 AM 07/08/19 05:59 Intake Total 180 ml Output Total 1500 ml Balance -1320 ml ELTON BARAJAS MD Jul 08, 2019 19:20
[2019-07-08] MEDS: SENOKOT S TAB PO SCH (21:00)
[2019-07-08] MEDS: ALPRAZolam 0.5 MG TAB PO PRN (21:21)
[2019-07-09] VITALS (23 sets, daily range): BP systolic 94–120; BP diastolic 50–62; O2SAT 86–95
[2019-07-09 05:36] LABS: HEMATOCRIT 39.1 % (42.0-52.0); HEMOGLOBIN 12.5 g/dl (13.5-17.5); MEAN CORPUSCULAR HEMOGLOBIN 34.1 pg (27.0-33.0); MEAN CORPUSCULAR VOLUME 106.5 fl (80.0-96.0); PLATELET COUNT, AUTOMATED 119 10^3/uL (150-450); RED BLOOD COUNT 3.67 10^6/uL (4.30-6.10); WHITE BLOOD COUNT 8.3 10^3/uL (4.0-10.0)
[2019-07-09 06:03] LABS: ALBUMIN 3.1 GM/DL (3.2-5.2); CALCIUM LEVEL 8.9 MG/DL (8.5-10.1); CREATININE FOR GFR 6.43 MG/DL (0.70-1.30)
[2019-07-09] MEDS: CARVedilol 6.25 MG TAB PO SCH ×2 (09:00→20:34)
[2019-07-09] MEDS ORDERED: CEFEPIME HCL 1 GM in D5W MINI-BAG PLUS 50 ML IV ONE (09:00)
[2019-07-09] MEDS: AMIODARONE 200 MG TAB (PACERONE) PO SCH (09:55)
[2019-07-09] MEDS: ALBUTEROL SULFATE 2.5 MG/0.5 ML INH NEB SOLN INH PRN ×3 (11:14→20:30)
--- NOTE | 2019-07-09 19:47 | IPNPDOC ---
Text Note Date of Service The patient was seen on 07/09/19. NOTE Subjective: Feels well, asking about discharge Objective Vitals: please see below General: Sitting up in bed, awake, responds to questions appropriately HEENT: PERRLA, EOMI, anicteric, no pallor Chest: Trach site with foul smelling thick discharge. Diminished lung bases, otherwise moving air well, no crackles with upper airway transmitted sounds Cardiovascular: normal S1 and S2, RRR, no murmurs Abdomen: Normoactive bowel sounds, obese abdomen, non tender Extremities: Cool extremities, palpable pulses, 2+ stable LE edema Labs: Please see below, of note sputum growing pseudomonas Imaging: reviewed, no new imaging Assessment: 49-year-old morbidly obese man with a BMI of 51 with obesity hypoventilation syndrome, chronic hypercapnic respiratory failure status post tracheostomy, who resides at [facility], with ESRD on HD TThS, presented to the emergency room after being found to have increasing respiratory distress and found to have rhinovirus with course now c/b increased secretions growing pseudomonas. Plan: Acute hypoxic and hypercapnic respiratory failure on chronic hypercapnic respiratory failure: 2/2 Rhinovirus -Much improved, back at home settings -Back on his home trilogy machine at his baseline BiPAP setting. During the day is on trach collar @ 28% and 5L -Albuterol Q2H PRN -Goal sat 88-92% -appreciate pulm consult -CTEPH and deep venous thrombosis, with secondary pulmonary hypertension due to OHS and chronic pulmonary embolism, with no anticoagulation due to perinephric bleeding prior an no IVC filter (unclear why) Pseudomonas infection: Increased foul smelling trach site secretions growing pseudomonas -Was started on cefepime Acute Metabolic encephalopathy: resolved, was due to hypercarbia Suicide Ideation/Severe depression: Patient told ICU nurse that he wants to drive his scooter into traffic to commit suicide. -Psychiatry consulted, no antidepressants have been suggested to date. Mood was better today. End-stage renal disease, on HD: complicated this admission by hyperkalemia and hypotension -HD managed by nephrology, appreciate rec - may go off telemetry monitoring Atrial fibrillation: currently sinus rhythm -continue amiodarone 200 daily -continue coreg 6.25 BID Morbid obesity with BMI of 57.5: Has been complicating his care with secondary pickwickian syndrome with obesity, hyperventilation syndrome, obstructive sleep apnea with secondary pulmonary hypertension, chronic and currently being managed with a trach and ventilator. Chronic constipation: Continue senna Diet: Now on a renal diet Dispo: pending clinical improvement VS,Edubone, I+O VS, Fishbone, I+O Laboratory Tests 07/09/19 05:01 Red Blood Count 3.67 L, Mean Corpuscular Volume 106.5 H, Mean Corpuscular Hemoglobin 34.1 H, Mean Corpuscular Hemoglobin Concent 32.0, Red Cell Distribution Width 14.1, Anion Gap 12 Vital Signs Date Time Temp Pulse Resp B/P (MAP) Pulse Ox O2 Delivery O2 Flow Rate FiO2 07/09/19 17:00 93 Trach Collar 5.0 28 07/09/19 16:00 99.8 65 20 117/62 (80) I&O- Last 24 Hours up to 6 AM 07/09/19 06:00 Intake Total 120 ml Balance 120 ml ELTON BARAJAS MD Jul 09, 2019 19:47
[2019-07-09] MEDS: SENOKOT S TAB PO SCH (20:35)
[2019-07-09] MEDS: ALPRAZolam 0.5 MG TAB PO PRN (20:40)
[2019-07-10] VITALS (26 sets, daily range): BP systolic 81–140; BP diastolic 48–68; O2SAT 86–96
[2019-07-10 06:25] LABS: HEMATOCRIT 37.7 % (42.0-52.0); HEMOGLOBIN 12.1 g/dl (13.5-17.5); MEAN CORPUSCULAR HEMOGLOBIN 33.4 pg (27.0-33.0); MEAN CORPUSCULAR HGB CONC 32.1 g/dl (32.0-36.5); MEAN CORPUSCULAR VOLUME 104.1 fl (80.0-96.0); PLATELET COUNT, AUTOMATED 128 10^3/uL (150-450); RED BLOOD COUNT 3.62 10^6/uL (4.30-6.10); WHITE BLOOD COUNT 8.2 10^3/uL (4.0-10.0)
[2019-07-10 06:52] LABS: CALCIUM LEVEL 9.1 MG/DL (8.5-10.1); CREATININE FOR GFR 8.19 MG/DL (0.70-1.30); GLOMERULAR FILTRATION RATE 7.5 (>60); PHOSPHORUS LEVEL 5.3 MG/DL (2.5-4.9); POTASSIUM SERUM 4.4 MEQ/L (3.5-5.1)
[2019-07-10] MEDS: CARVedilol 6.25 MG TAB PO SCH ×2 (09:00→21:28)
[2019-07-10] MEDS: ALBUTEROL SULFATE 2.5 MG/0.5 ML INH NEB SOLN INH PRN ×3 (09:06→19:54)
[2019-07-10] MEDS: ALPRAZolam 0.5 MG TAB PO PRN ×2 (09:31→21:26)
[2019-07-10] MEDS: AMIODARONE 200 MG TAB (PACERONE) PO SCH (09:31)
--- NOTE | 2019-07-10 10:39 | IPN ---
DATE OF SERVICE: 07/08/2019 SUBJECTIVE: The patient was seen and examined at the bedside today morning. He was dialyzed yesterday. He tolerated the hemodialysis procedure well, 1.5 liters of fluid was removed. The patient's breathing is getting better. He was getting suctioning of his tracheostomy when I saw him today morning. He was awake and able to follow commands and answer questions. OBJECTIVE: Vital Signs: Temperature is 98 degrees Fahrenheit, blood pressure 124/60, pulse is 65, respiratory rate of 16, saturating 96% on 30% FIO2. Intake and Output: There is no urine output recorded. Ultrafiltration with hemodialysis was 1.5 liters. Weight in the bed scale is not available. PHYSICAL EXAMINATION: General: The patient is awake, alert, oriented times three, laying in bed. Currently tracheostomy is attached to the vent. No apparent distress. Head and Neck Exam: Mucous membranes are moist. Neck is supple. He has a tracheostomy which is attached to the vent. Cardiovascular: S1 and S2, regular rate. No edema of the bilateral lower extremities. Respiratory: Chest is clear to auscultation bilaterally. Bilateral equal air entry. No rales or rhonchi. Abdomen: Soft, obese, positive bowel sounds. Nontender. No organomegaly. Musculoskeletal: No clubbing or cyanosis. Pulses are 2+. SILK SNAPPER: The patient is chronically bedridden and dependent on wheelchair. Otherwise he follows commands. He is able to communicate. LAB REVIEW: CBC showed WBC of 7.7, hemoglobin 12.6 and platelets of 132. BMP showed sodium 135, potassium 4, chloride 100, bicarb 27, BUN 24, creatinine 4.6, phosphorus 4.1. CURRENT INPATIENT MEDICATIONS: The patient's medications were all reviewed by me. There is no change in the medications today as compared with yesterday. ASSESSMENT/PLAN: 1. End-stage renal disease on hemodialysis. The patient's regular dialysis days are Wednesday, , Wednesday. However, in the hospital he was dialyzed yesterday. Next hemodialysis will be done after the weekend on Wednesday. Volume status is optimal. 2. Acute hypercapnic respiratory failure. The patient is being treated for Rhinovirus. He is on the vent through the tracheostomy. His pCO2 levels are improving. 3. Anemia in end-stage renal disease. Hemoglobin level is 12.6. He does not need any Aranesp. 4. Hypertension with end-stage renal disease. Continue current dose of Coreg 6.25 mg by mouth twice a day.
--- NOTE | 2019-07-10 11:16 | IPN ---
DATE OF SERVICE: 07/09/2019 SUBJECTIVE: The patient was seen and examined at the bedside today morning. He denies any active complaints. He continues to be on the vent. His sputum cultures came back for Pseudomonas. I have started the patient on cefepime. Otherwise, he is afebrile and he denies any active complaints. OBJECTIVE: Vital signs: Temperature is 98 degrees Fahrenheit, blood pressure 114/59, pulse is 67, respiratory rate of 18, saturating 89% on the vent with 30% FiO2. Intake and output: There is no urine output recorded. Weight in the bed scale is 207.3 kg. PHYSICAL EXAMINATION: General: The patient is morbidly obese, laying in the bed, currently attached to the vent through the tracheostomy, in no apparent distress. Head and neck exam: Extraocular muscles intact. Pupils equally round and reactive to light. The patient has an obese neck. She has a tracheostomy tube. Cardiovascular: S1, S2, regular rate. No edema of the bilateral lower extremities. Respiratory: Decreased breath sounds at the bases. Otherwise, no active rales or rhonchi. He is attached to the vent through tracheostomy. Abdomen: Soft, obese, positive bowel sounds. Nontender. No organomegaly. Musculoskeletal: No clubbing or cyanosis. Pulses are 2+. Central nervous system (PROFESSOR OF PATHOLOGY): No focal deficit. Power is 5/5 in bilateral upper extremities. LAB REVIEW: CBC showed WBC 8.3, hemoglobin 12.5, platelets of 119. BMP showed sodium 138, potassium 4, chloride 102, bicarbonate 24, BUN 37, creatinine is 6.4, phosphorus is 5. MICROBIOLOGY: Sputum culture came back positive for Pseudomonas aeruginosa moderate growth. CURRENT INPATIENT MEDICATIONS: The patient's medications were all reviewed by me. I have started the patient on 1 gram IV every 24. No other change in the medications today as compared with yesterday. ASSESSMENT AND PLAN: 1. End-stage renal disease on hemodialysis. The patient was dialyzed on Wednesday. Next hemodialysis will be done tomorrow morning. Volume status is optimized. 2. Acute hypercapnic respiratory failure. It was secondary to rhinovirus infection. The patient also is growing Pseudomonas aeruginosa in the sputum cultures. To cover that I have started him on cefepime 1 gram IV daily and on cultures it is sensitive to cefepime. 3. Anemia in end-stage renal disease. Hemoglobin is 12.5. No need of Aranesp administration at this time. 4. Hypertension with end-stage renal disease. Blood pressure is acceptable. Continue current dose of Coreg with holding parameters.
[2019-07-10] MEDS ORDERED: HEPARIN 1,000 UNITS/ML 10ML VIAL (FOR RADIOLOGY& DIALYSIS ONLY) IV ONE (12:00)
[2019-07-10] MEDS ORDERED: CEFEPIME HCL 1 GM in D5W MINI-BAG PLUS 50 ML IV SCH (18:00)
--- NOTE | 2019-07-10 20:58 | IPN ---
DATE: 07/10/2019 SUBJECTIVE: The patient was seen and examined at the bedside today morning. The patient is currently on the BiPAP. He reports that he is not eating much and he does not want much fluid to be removed today. Today's the patient's regular day of dialysis. He is also complaining of some loose stools. He denies any other active complaints. OBJECTIVE: Vital signs: Temperature is 98 degrees Fahrenheit, blood pressure 120/58, pulse is 93, respiratory rate of 17, saturating 94% on the BiPAP. Intake and output: There is no urine output recorded. Weight in the bed scale was 207.3. Kg. PHYSICAL EXAMINATION: General: The patient is awake, alert, oriented x3, laying in the bed, attached to the vent through tracheostomy, but able to communicate and follow commands. Head and neck exam: Pupils are equally round and reactive to light. Mucous membranes are moist. Neck is obese and he has a tracheostomy. Cardiovascular: S1, S2 regular rate. No edema of the bilateral lower extremities. Respiratory: Chest is clear to auscultation bilaterally. Bilateral equal air entry. No rales or rhonchi. Abdomen: Soft, obese, positive bowel sounds. Nontender. No organomegaly. Musculoskeletal: No clubbing or cyanosis. Pulses are 2+. 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 He follows commands and able to communicate. LABORATORY REVIEW: Complete blood count (CBC) showed a WBC 8.2, hemoglobin 12.1, platelets of 128. Basic metabolic panel (BMP) showed sodium 136, potassium 4.4, chloride 100, bicarbonate 21, BUN 52, creatinine is 8.1, phosphorus is 5.3, albumin is 3. Microbiology: Sputum cultures are now growing 2 organisms including Pseudomonas aeruginosa and Proteus mirabilis. CURRENT INPATIENT MEDICATIONS: The patient's medications were all reviewed by me. He continues to be on IV cefepime. No change in the medications today as compared with yesterday. ASSESSMENT/PLAN: 1. End-stage renal disease on hemodialysis. Today is the patient's regular day of dialysis. He will be dialyzed at the bedside. However, I would not remove much fluid. Ultrafiltration will be around 1.5 liters as tolerated by his blood pressure. 2. Acute hypercapnic respiratory failure. The patient has a polymicrobial infection including rhinovirus infection and Pseudomonas and Proteus mirabilis infection. He is currently being covered with cefepime and both of the organisms are sensitive to cefepime. Vent management is as per pulmonary service. 3. Anemia and end-stage renal disease. Hemoglobin is optimal. 4. Hypertension with end-stage renal disease. Continue current dose of Coreg. Volume status is optimal. MTDD
[2019-07-10] MEDS: SENOKOT S TAB PO SCH (21:26)
--- NOTE | 2019-07-10 22:33 | IPNPDOC ---
Text Note Date of Service The patient was seen on 07/10/19. NOTE Subjective: Feels well, wants to know when he will be discharged. No complaints. Reports that the purulent drainage from his trach is improving Objective Vitals: please see below General: Sitting up in bed, awake, responds to questions appropriately HEENT: PERRLA, EOMI, anicteric, no pallor Chest: Trach site remains with some foul smelling thick discharge. Diminished bases, otherwise moving air well, no crackles Cardiovascular: normal S1 and S2, RRR, no murmurs Abdomen: Normoactive bowel sounds, obese abdomen, non tender Extremities: Cool extremities, palpable pulses, 2+ stable LE edema Labs: Please see below, of note sputum growing pseudomonas Imaging: reviewed, no new imaging Assessment: 49-year-old morbidly obese man with a BMI of 51 with obesity hypoventilation syndrome, chronic hypercapnic respiratory failure status post tracheostomy, who resides at [facility], with ESRD on HD TThS, presented to the emergency room after being found to have increasing respiratory distress and found to have rhinovirus with course now c/b increased secretions growing pseudomonas and proteus. Plan: Acute hypoxic and hypercapnic respiratory failure on chronic hypercapnic respir atory failure: 2/2 Rhinovirus -Much improved, back at home settings -Back on his home trilogy machine at his baseline BiPAP setting. During the day is on trach collar @ 28% and 5L -Albuterol Q2H PRN -Goal sat 88-92% -appreciate pulm consult -CTEPH and deep venous thrombosis, with secondary pulmonary hypertension due to OHS and chronic pulmonary embolism, with no anticoagulation due to perinephric bleeding prior an no IVC filter (unclear why) Pseudomonas and proteus infection: Increased foul smelling trach site secretions growing pseudomonas -Continue on cefepime Acute Metabolic encephalopathy: resolved, was due to hypercarbia Suicide Ideation/Severe depression: Patient told ICU nurse that he wants to drive his scooter into traffic to commit suicide. -Psychiatry consulted, no antidepressants have been suggested to date. Is in better spirits since he recovered from the acute on chronic respiratory failure. End-stage renal disease, on HD: complicated this admission by hyperkalemia and hypotension -HD managed by nephrology, appreciate rec - may go off telemetry monitoring Atrial fibrillation: currently sinus rhythm -continue amiodarone 200 daily -continue coreg 6.25 BID Morbid obesity with BMI of 57.5: Has been complicating his care with secondary pickwickian syndrome with obesity, hyperventilation syndrome, obstructive sleep apnea with secondary pulmonary hypertension, chronic and currently being managed with a trach and ventilator. Chronic constipation: Continue senna Diet: Now on a renal diet Dispo: pending clinical improvement. Although he is at his baseline, the pseudomonas and proteus infections preclude him from being accepted back at the home as it poses an infectious risk to the population. VS,Fishbone, I+O VS, Fishbone, I+O Laboratory Tests 07/10/19 05:49 Red Blood Count 3.62 L, Mean Corpuscular Volume 104.1 H, Mean Corpuscular Hemoglobin 33.4 H, Mean Corpuscular Hemoglobin Concent 32.1, Red Cell Distribution Width 13.9, Anion Gap 15 Vital Signs Date Time Temp Pulse Resp B/P (MAP) Pulse Ox O2 Delivery O2 Flow Rate FiO2 07/10/19 21:28 81 140/62 07/10/19 20:00 97.3 18 93 07/10/19 18:00 BIPAP/CPAP 07/09/19 21:00 5.0 28 I&O- Last 24 Hours up to 6 AM 07/10/19 06:00 Intake Total 350 ml Output Total 0 ml Balance 350 ml ELTON BARAJAS MD Jul 10, 2019 22:33
[2019-07-11] VITALS (10 sets, daily range): BP systolic 112–125; BP diastolic 58–61; O2SAT 91–94
[2019-07-11 08:28] LABS: BASO # 0.1 10^3/uL (0.0-0.2); BASO % 0.7 % (0.0-1.0); EOS # 0.4 10^3/uL (0.0-0.5); EOS % 5.3 % (0.0-3.0); HEMATOCRIT 41.1 % (42.0-52.0); HEMOGLOBIN 13.2 g/dl (13.5-17.5); LYMPH # 1.9 10^3/uL (1.5-5.0); LYMPH % 26.7 % (24.0-44.0); MEAN CORPUSCULAR HEMOGLOBIN 34.5 pg (27.0-33.0); MEAN CORPUSCULAR HGB CONC 32.1 g/dl (32.0-36.5); MEAN CORPUSCULAR VOLUME 107.3 fl (80.0-96.0); MONO # 0.5 10^3/uL (0.0-0.8); MONO % 6.5 % (0.0-5.0); NEUTROPHILS # 4.4 10^3/uL (1.5-8.5); NEUTROPHILS % 60.1 % (36.0-66.0); PLATELET COUNT, AUTOMATED 128 10^3/uL (150-450); RED BLOOD COUNT 3.83 10^6/uL (4.30-6.10); WHITE BLOOD COUNT 7.2 10^3/uL (4.0-10.0)
[2019-07-11] MEDS: ALPRAZolam 0.5 MG TAB PO PRN (08:44)
[2019-07-11] MEDS: AMIODARONE 200 MG TAB (PACERONE) PO SCH (08:44)
[2019-07-11] MEDS: CARVedilol 6.25 MG TAB PO SCH (08:44)
[2019-07-11] MEDS: ALBUTEROL SULFATE 2.5 MG/0.5 ML INH NEB SOLN INH PRN (08:47)
[2019-07-11 08:58] LABS: CALCIUM LEVEL 9.3 MG/DL (8.5-10.1); CK-MB VALUE MASS 1.5 NG/ML (<3.6); CREATININE FOR GFR 5.73 MG/DL (0.70-1.30); GLOMERULAR FILTRATION RATE 11.4 (>60); MB/CK RELATIVE INDEX 1.58 (< OR =4); POTASSIUM SERUM 4.2 MEQ/L (3.5-5.1); TROPONIN I 0.04 NG/ML (< 0.10)
[2019-07-11] MEDS ORDERED: CEFE1INJ IV (09:16)
--- NOTE | 2019-07-11 11:33 | REP ---
CHEST, PORTABLE: AP portable view of the chest is performed. Comparison 06/05/2019. There is cardiomegaly with vascular congestion and interstitial prominence unchanged. Bibasilar parenchymal opacity is stable. No new infiltrates are seen. Mediastinal silhouette is unchanged. Tracheal tube is again noted unchanged. IMPRESSION: Stable exam. Electronically Signed by Last Lin MD 07/12/2019 10:09 A
[2019-07-11] MEDS ORDERED: CEFEPIME HCL 2 GM in D5W MINI-BAG PLUS 50 ML IV SCH (12:00)
--- NOTE | 2019-07-11 15:03 | DSES ---
DATE OF ADMISSION: 07/05/2019 DATE OF DISCHARGE: The patient is discharged to [facility]. CONSULTANTS DURING THIS ADMISSION: Dr. Narendra Curtis and Dr. Calderon, director geophysical laboratory. Dr. Hung Kirk and Dr. Bradley, meeting manager. Dr. Anatoyl Ortega, thoracic surgeon, for tracheostomy change due to tracheostomy malfunction. Psychiatrist. PROCEDURES DURING THIS ADMISSION: 07/05/2019 change of tracheostomy tube due to malfunction. PRIMARY DISCHARGE DIAGNOSES: 1. Acute on chronic hypercapnic respiratory failure secondary to rhinovirus. 2. Rhinovirus. 3. End stage renal disease on maintenance hemodialysis. 4. Obesity hypoventilation syndrome. 5. Obstructive sleep apnea. 6. Extreme obesity, Body Mass Index (BMI) is 57.1. 7. Suicidal ideation. 8. Pseudomonas and Proteus in the sputum. 9. Hyperkalemia. 10. Chronic pulmonary embolism, not on anticoagulation. 11. Chronic lower extremity deep vein thrombosis (DVT), not on anticoagulation due to history of paranephric bleeding. 12. Atrial fibrillation, which was rate controlled, on no anticoagulation. 13. Chronic thrombocytopenia. 14. Anemia secondary to chronic renal failure. 15. Bronchiectasis. 16. Pulmonary hypertension. DISCHARGE MEDICATIONS: - cefepime 1 gram every 24 hours for 4 days to complete a 7 day course for pseudomonas and Proteus in his sputum - acetaminophen 650 mg every 4 hours as needed for pain - albuterol 2.5 two puffs every four hours as needed - alprazolam 1 mg every 6 hours as needed - amiodarone 200 mg daily - Dulcolax 10 mg per rectum as needed - Coreg 6.25 mg twice a day - cinacalcet 90 mg daily - Colace 200 mg daily - Drisdol 50,000 units weekly - ferrous citrate 630 mg with meals - guaifenesin 10 mL by mouth every 4 hours as needed - ipratropium albuterol one solution twice a day - Preparation H per rectum twice a day as needed - Senna S two tablets at night - Renvela 4800 mg three times a day - sodium phosphate monoideistic enema daily as needed - vitamin D - Nephro-Shante one tablet daily HOSPITAL COURSE: This is a 49-year-old morbidly obese male from [facility], usually a Elizabeth lift, bed bound and scooter at baseline, was sent to the emergency room due to altered mental status and shortness of breath. The patient was found to have acute on chronic hypercapnic respiratory failure secondary to rhinovirus, pH of 7.0, CO2 level 143. He was admitted to the intensive care unit (ICU) and was found to have a malfunctioning tracheostomy, which was replaced by Dr. Ortega. The patient was seen by Dr. Bradley, meeting manager, who adjusted his BiPAP settings with subsequent improvement in his hypercapnic respiratory failure and improvement in his mental status. The patient's repeat gases after 24 hours was 7.3 and CO2 level of 54. The patient's Trilogy was brought to the hospital and was changed to the hospital setting. He was found to have no new infiltrates on CT of the chest. He has chronic pulmonary embolism and chronic deep vein thrombosis (DVT), on no anticoagulation. He has cylindrical bronchiectasis with copious amounts of malsecretions, which were yellow and thick. Sputum culture grew out pseudomonas and Proteus mirabilis. He was given IV cefepime on 07/10 and to continue for 7 full days. He remained afebrile with normal white count with improved mentation. He was also maintained on maintenance dialysis by Dr. Curtis with episodes of hyperkalemia and signs of fluid overload on admission. Microbiology grew out human rhinovirus and Enterovirus on respiratory panel. Sputum culture with pseudomonas and Proteus mirabilis. Proteus was resistant to ampicillin, Levaquin, tigecycline and Bactrim. Pseudomonas was sensitive to cefepime and ceftazidime, gentamicin, Levaquin, meropenem, Zosyn and tobramycin. Repeat x-ray on 07/11, stable examination with cardiomegaly, vascular congestion, and interstitial prominence that are unchanged. Bibasilar parenchymal opacity stable with no new infiltrates. Mediastinal silhouette was unchanged and tracheostomy tube was unchanged. PHYSICAL EXAMINATION: On discharge: Temperature 97.1, pulse 60, respiratory rate 18, blood pressure 125/61, 94% on BiPAP. GENERAL: The patient is awake, alert, oriented to himself. He is difficult to understand, usually does not speak. Tracheostomy is attached to Trilogy. LUNGS: Diminished with distant heart sounds with coarse rhonchi bilaterally. HEART: S1, S2. Regular rate and rhythm. ABDOMEN: Obese, soft, nontender, nondistended. Positive bowel sounds. EXTREMITIES: No cyanosis or clubbing. No pitting edema. DISCHARGE LABORATORY DATA: White count 7.3, hemoglobin 13, hematocrit 41, platelet count 128. Sodium 137, potassium 4.2, chloride 101, bicarbonate 27, BUN 31, creatinine 5.3, glucose 108, lactic acid 1.8, calcium 8.9, total bilirubin 0.5, AST 15, ALT 40, alkaline phosphatase 89, procalcitonin 1.45, TSH 3.24, total CK 121, MB fraction 2.8, troponin less than 0.03. Microbiology: 07/05/2019 nasopharynx respiratory panel: Human rhinovirus, Enterovirus. Sputum culture via trach Pseudomonas aeruginosa and Proteus mirabilis. IMAGING STUDIES: 07/05/2019 CT of the chest showed calcified filling defects in the segmental pulmonary arteries supplying the right upper lobe and right lower lobe, which are compatible with chronic pulmonary emboli. Calcified filling defects,chronicpulmonary embolus. Dilatation in pulmonary artery trunk, which may indicate pulmonary artery hypertension. Cylindrical bronchiectasis, atelectasis in the right middle lobe, splenomegaly, sclerosis of the vertebral bodies, predominantly adjacent to the end plates and sclerosis of the sternum, which can be seen with renal osteodystrophy. Time spent on discharge: 30 minutes. [facility]
--- NOTE | 2019-07-11 18:38 | IPN ---
DATE: 07/11/2019 SUBJECTIVE: The patient was seen and examined at the bedside today morning. He is afebrile, hemodynamically stable. He was dialyzed yesterday. He tolerated the dialysis procedure well. He got 1.5 liters of fluid removed. He is still on bilevel positive airway pressure (BiPAP) through the tracheostomy OBJECTIVE: Vital signs: Temperature is 97.1 degrees Fahrenheit, blood pressure 124/61, pulse is 60, respiratory of 18, saturating 94% on BiPAP. Intake and output: There is no urine output recorded. Ultrafiltration with hemodialysis was 1.5 liters. Weight in the bed scale is not available. PHYSICAL EXAMINATION: GENERAL: The patient is morbidly obese, lying in the bed in no apparent distress. Currently on BiPAP through the tracheostomy tube. HEAD AND NECK: Extraocular muscles intact. Pupils equally round and reactive to light. Neck is supple. There is a tracheostomy, which is attached to the vent at the bedside. CARDIOVASCULAR: S1, S2, regular rate. No edema of the bilateral lower extremities. RESPIRATORY: Chest is clear to auscultation bilaterally. Bilateral equal air entry. No rales or rhonchi. ABDOMEN: Soft, morbidly obese. Positive bowel sounds. Nontender. MUSCULOSKELETAL: No clubbing or cyanosis. ARTERIOVENOUS ACCESS: He has a right forearm arteriovenous (AV) fistula with thrill and bruit. CENTRAL NERVOUS SYSTEM: No focal deficit. He follows commands. Moves extremities. Able to communicate, but he is chronically bedridden. LABORATORY REVIEW: CBC showed WBC 7.2, hemoglobin 13.2, platelets are 128. BMP showed sodium 141, potassium 4.2, chloride 106, bicarbonate 22, BUN 29, creatinine is 5.7. IMAGING STUDIES: Chest x-ray was done today, which showed stable exam. CURRENT INPATIENT MEDICATIONS: The patient's medications were all reviewed by me. He continues to be on IV cefepime. No other change in the medications today as compared with yesterday. ASSESSMENT AND PLAN: 1. End-stage renal disease, on hemodialysis. He was dialyzed yesterday. Next hemodialysis will be done tomorrow. 2. Chronic BiPAP dependence and tracheostomy status. The patient came in with respiratory failure. He is currently being treated for pseudomonas and Proteus and rhinovirus infection. Symptomatically he is better. He uses BiPAP at night, and he has a trach collar in the morning. If the patient is discharged, he can be given cefepime during dialysis. 3. Hypertension with end-stage renal disease. Continue Coreg. DISPOSITION: The patient is optimized from nephrology standpoint whenever is cleared from pulmonary service for discharge back to detention. If he needs antibiotics, they can be given during dialysis at dialysis center.
== END 2019-07-11 14:07 | DRG 208 ==
LOC: M ED 03:56 → M ED INP 07:40 → M ICU 09:56 → M PCU 07-07 18:08
PROVIDERS: ADMIT General Practice; ATTEND Internal Medicine Nephrology
PROC: 5A1945Z Respiratory Ventilation, 24-96 Consecutive Hours (ICD-10-PCS; principal; 2019-07-05)
PROC: 5A1D70Z Performance of Urinary Filtration, Intermittent, Less than 6 Hours Per Day (ICD-10-PCS; 2019-07-05)
DX: J96.22 Acute and chronic respiratory failure with hypercapnia (principal); N18.6 End stage renal disease; G93.41 Metabolic encephalopathy; Z68.43 Body mass index [BMI] 50.0-59.9, adult; I27.82 Chronic pulmonary embolism; R45.851 Suicidal ideations; I12.0 Hypertensive chronic kidney disease with stage 5 chronic kidney disease or end stage renal disease; N25.81 Secondary hyperparathyroidism of renal origin; E66.2 Morbid (severe) obesity with alveolar hypoventilation; E87.2 Acidosis; J95.03 Malfunction of tracheostomy stoma; B97.89 Other viral agents as the cause of diseases classified elsewhere; J06.9 Acute upper respiratory infection, unspecified; Z91.11 Patient's noncompliance with dietary regimen; Z91.19 Patient's noncompliance with other medical treatment and regimen; G47.33 Obstructive sleep apnea (adult) (pediatric); D63.1 Anemia in chronic kidney disease; E87.5 Hyperkalemia; I48.2 Chronic atrial fibrillation; D69.6 Thrombocytopenia, unspecified; Z79.899 Other long term (current) drug therapy; F41.9 Anxiety disorder, unspecified; F32.9 Major depressive disorder, single episode, unspecified; Z88.8 Allergy status to other drugs, medicaments and biological substances; K21.9 Gastro-esophageal reflux disease without esophagitis; K59.00 Constipation, unspecified; Y83.3 Surgical operation with formation of external stoma as the cause of abnormal reaction of the patient, or of later complication, without mention of misadventure at the time of the procedure

== ENCOUNTER → 2019-08-21 | Outpatient (REF) | payer MEDICARE, MEDICAID ==
[~2019-08-21] MED LIST changes: +ALPR1TAB3 PO; +CEFE1INJ IV; +CINA90TA PO
[2019-08-21 08:38] LABS: ALBUMIN 3.6 GM/DL (3.2-5.2); BILIRUBIN,TOTAL 0.5 MG/DL (0.2-1.0); CALCIUM LEVEL 8.4 MG/DL (8.5-10.1); CREATININE FOR GFR 8.24 MG/DL (0.70-1.30); FREE T4 0.79 NG/DL (0.76-1.46); GLOMERULAR FILTRATION RATE 7.5 (>60); POTASSIUM SERUM 4.8 MEQ/L (3.5-5.1); THYROID STIMULATING HORMONE 2.34 uIU/ML (0.358-3.740)
== END ==
LOC: SKLAB3 07:00
PROVIDERS: ATTEND Family Medicine
DX: N18.9 Chronic kidney disease, unspecified (principal); D64.9 Anemia, unspecified

== ENCOUNTER → 2019-09-15 | Outpatient (CLI) | payer MEDICARE, MEDICAID ==
--- NOTE | 2019-09-15 18:44 | REP ---
BILATERAL UPPER EXTREMITY DUPLEX DOPPLER ARTERIAL AND VENOUS ULTRASOUND for AV FISTULA MAPPING: Real-time ultrasound evaluation and duplex Doppler interrogation of bilateral upper extremity venous and arterial systems is performed. On the right jugular vein appears partially thrombosed. AV fistula at the wrist is patent between radial artery and cephalic vein. AV fistula in the mid forearm demonstrates diffuse complete thrombosis. A small amount of venous flow is seen. The left jugular vein is patent. Left AV fistula at the wrist between the radial artery and cephalic vein is significantly occluded with a small amount of residual flow. Right basilic vein measures 9 mm at the upper humerus, 8 mm at the lower humerus, 6 mm in the upper forearm and 3 mm in the lower forearm, median cubital vein measures 5 mm. Right cephalic vein measures 7 mm at the upper humerus, 8 mm at the lower humerus, 4 mm in the upper forearm and 3 mm in the lower forearm. There is mild elevated peak systolic velocity in the right axillary and radial arteries. There are diffusely monophasic wave forms in the right upper extremity arterial system. Right axillary artery measures 8 mm, brachial artery 6 mm, radial artery 5 mm and ulnar artery 3 mm. Left basilic vein measures 6 mm at the upper humerus, 5 mm at the lower humerus and 2 mm throughout the forearm. Median cubital vein measures 3 mm. Left cephalic vein measures 4 mm throughout the humerus level and is occluded in the forearm. Normal flow velocity and triphasic wave forms are seen of the left upper extremity arterial system. Left axillary and brachial artery both measure 6 mm in the ulnar and radial arteries measure 3 mm. Findings are similar to prior study of 03/06/2019. Electronically Signed by Last Lin MD 09/18/2019 10:13 A
== END ==
LOC: M RAD 12:42
PROVIDERS: ATTEND Surgery Vascular Surgery
DX: N18.6 End stage renal disease (principal); Z99.2 Dependence on renal dialysis; T82.590D Other mechanical complication of surgically created arteriovenous fistula, subsequent encounter

== ENCOUNTER 2019-09-30 11:11 | Inpatient (IN) | payer MEDICARE, MEDICAID ==
[~2019-09-30] VITALS: Ht 195.6 cm; Wt 197.8 kg
[~2019-09-30 11:11] MED LIST changes: +CLON0.5T2 PO; -CLON0.5T8 PO
[2019-09-30] MEDS ORDERED: IPRATROPIUM 0.5MG/ALBUTEROL 2.5MG INH SOL UD 3ML (DUONEB)(J7620) NEB ONE (11:45)
[2019-09-30 12:18] LABS: VENOUS BASE EXCESS -3.2 (-2.0-2.0); VENOUS HCO3 27.1 MEQ/L (23.0-27.0); VENOUS O2 SATURATION 74.9 % (60.0-80.0); VENOUS PARTIAL PRESSURE CO2 75.7 mmHg (38.0-50.0); VENOUS PARTIAL PRESSURE O2 43.8 mmHg (30.0-50.0); VENOUS PH 7.171 UNITS (7.330-7.430); VENOUS STANDARD HCO3 21.4 MEQ/L; VENOUS TOTAL CO2 29.4 MEQ/L (24.0-28.0)
[2019-09-30 12:26] LABS: BASO # 0.1 10^3/uL (0.0-0.2); BASO % 0.7 % (0.0-1.0); EOS # 0.5 10^3/uL (0.0-0.5); EOS % 5.6 % (0.0-3.0); HEMATOCRIT 41.3 % (42.0-52.0); HEMOGLOBIN 12.3 g/dl (13.5-17.5); LYMPH % 22.7 % (24.0-44.0); MEAN CORPUSCULAR HEMOGLOBIN 33.4 pg (27.0-33.0); MEAN CORPUSCULAR HGB CONC 29.8 g/dl (32.0-36.5); MEAN CORPUSCULAR VOLUME 112.2 fl (80.0-96.0); MONO # 0.6 10^3/uL (0.0-0.8); MONO % 6.5 % (0.0-5.0); NEUTROPHILS # 5.6 10^3/uL (1.5-8.5); NEUTROPHILS % 63.9 % (36.0-66.0); PLATELET COUNT, AUTOMATED 126 10^3/uL (150-450); RED BLOOD COUNT 3.68 10^6/uL (4.30-6.10); WHITE BLOOD COUNT 8.8 10^3/uL (4.0-10.0)
[2019-09-30] MEDS ORDERED: OXYC-517 PO (12:32)
[2019-09-30] MEDS ORDERED: MIRA0.12 PO (12:32)
[2019-09-30] MEDS ORDERED: VELT1POW PO (12:32)
[2019-09-30] MEDS ORDERED: OXYC1TAB23 PO ×2 (12:32)
[2019-09-30] MEDS ORDERED: ESCI10TA2 PO (12:32)
[2019-09-30] MEDS ORDERED: GABA-843 PO (12:32)
[2019-09-30 12:59] LABS: ALBUMIN 3.7 GM/DL (3.2-5.2); ALT/SGPT 58 U/L (12-78); BILIRUBIN,DIRECT 0.2 MG/DL (0.0-0.2); BILIRUBIN,TOTAL 0.5 MG/DL (0.2-1.0); BLOOD UREA NITROGEN 37 MG/DL (7-18); CALCIUM LEVEL 8.5 MG/DL (8.5-10.1); CARBON DIOXIDE LEVEL 29 MEQ/L (21-32); CHLORIDE LEVEL 101 MEQ/L (98-107); CK-MB VALUE MASS 2.1 NG/ML (<3.6); CPK CREATINE PHOSPHOKINASE 73 U/L (39-308); GLOMERULAR FILTRATION RATE 10.4 (>60); GLUCOSE, FASTING 95 MG/DL (70-100); MB/CK RELATIVE INDEX 2.88 (< OR =4); NT-PRO BNP 622 PG/ML (<125); POTASSIUM SERUM 4.4 MEQ/L (3.5-5.1); SODIUM LEVEL 137 MEQ/L (136-145); TOTAL PROTEIN 8.1 GM/DL (6.4-8.2); TROPONIN I < 0.02 NG/ML (< 0.10)
[2019-09-30 13:13] LABS: INR 1.11
--- NOTE | 2019-09-30 13:27 | ECGEPIP ---
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
--- NOTE | 2019-09-30 13:32 | REP ---
AP PORTABLE CHEST: 09/30/2019. COMPARISON: AP chest 07/11/2019, CT angio 07/05/2019. CLINICAL HISTORY: Dyspnea and cough. FINDINGS: AP semierect chest with two images needed to encompass the entirety of the chest. Tracheostomy tube is well seated in the stoma with its tip in the upper thoracic trachea. There is cardiomegaly with some left atrial and ventricular enlargement. Prominence of the right heart margin, but this has previously been shown to be a large epicardial fat pad on CT. Some basilar fibrotic or atelectatic change on the left without dense consolidation with air bronchograms. No definite effusion or lateral pleural thickening. No apical scarring. Aorta is without gross aneurysm. There are some degenerative changes in the spine. IMPRESSION: 1. Some degree of cardiomegaly with left atrial and ventricular enlargement and some basilar fibrotic or atelectatic change in the left lower lung zone. No hernan edema, dense consolidation, or gross effusion. Electronically Signed by Vincent Stacy MD 09/30/2019 07:55 P
[2019-09-30] MEDS ORDERED: PERCOCET 5MG/325MG TAB PO ONE (13:45)
--- NOTE | 2019-09-30 13:57 | REP ---
BILATERAL LOWER EXTREMITY DOPPLER VENOUS ULTRASOUND: 09/30/2019. Clinical history: Lower extremity edema, evaluate for DVT. Comparison: None. Technique: The deep venous system of the bilateral lower extremities is evaluated with johnson scale imaging, compression ultrasound, color imaging and duplex Doppler interrogation. Examination from the groin through the popliteal fossa into the proximal calf. Findings: There is full compressibility from the common femoral vein in the inguinal region through the popliteal vein on both sides. Color imaging confirms patency throughout the course of the deep venous system. There is respiratory variation and augmented flow at all levels. Please note the exam was technically challenging due to body habitus considerations and the edema. Impression: 1. No Doppler venous ultrasound evidence of DVT in the bilateral lower extremities. Electronically Signed by Vincent Stacy MD 09/30/2019 01:47 P
[2019-09-30] MEDS ORDERED: BISACODYL 10 MG SUPP PR PRN (17:30)
[2019-09-30] MEDS ORDERED: FLEET ENEMA PR PRN (17:30)
[2019-09-30] MEDS: (RENVELA) SEVELAMER **CARBONate** 800 MG TAB PO SCH ×2 (18:00→21:01)
--- NOTE | 2019-09-30 18:08 | HPEPDOC ---
General Date of Admission 09/30/19 Date of Service: Sep 30, 2019 Chief Complaint The patient is a 49-year-old male admitted with a reason for visit of SOB. Source: Patient Exam Limitations: Physical impairment Severity: Moderate Associated Symptoms: Shortness of breath History of Present Illness Patient is 49 years old male with past medical history of morbid obesity, hyperventilation syndrome, chronic hypercapnic respiratory failure status post tracheostomy, end-stage renal diseases presented hospital with acute on chronic respiratory failure. Today after dialysis patient developed acute hypoxemic hypercapnic respiratory failure with mental confusion. Patient was found to have pH 7.1, CO2 75, O2 43. Also patient stated that he has been having chills. In emergency room patient was found to have no leukocytosis, he is afebrile, he was placed on the BiPAP with his home settings. Urine analysis was unremarkable. Chest XR some degree of cardiomegaly with left atrial and ventricular enlargement and some basilar fibrotic or atelectatic change in the left lower lung zone. No hernan edema, dense consolidation, or gross effusion. Home Medications Scheduled Amiodarone Hcl (Pacerone) 200 Mg Tab, 200 MG PO DAILY, (Reported) TAKES AT 1200 Carvedilol (Coreg) 6.25 Mg Tab, 6.25 MG PO BID, (Reported) TAKES AT 1200 AND 2000 Docusate Sodium (Colace) 100 Mg Capsule, 200 MG PO DAILY, (Reported) TAKES AT 1100 Ergocalciferol (Vitamin D2) (Drisdol) 50,000 Unit Cap, 50,000 UNIT PO 1XWK, (Reported) WEDNESDAY AT 1100 Escitalopram Oxalate (Escitalopram Oxalate) 10 Mg Tablet, 10 MG PO DAILY, (Reported) 1200 Ferric Citrate (Auryxia) 210 Mg Tablet, 630 MG PO WM, (Reported) TAKES AT 0600, 1200, AND 1700 ON WEDNESDAY, WEDNESDAY AND WEDNESDAY (DIALYSIS DAYS) AND TAKES AT 0800, 1130, AND 1630 ON WEDNESDAY, WEDNESDAY, WEDNESDAY AND WEDNESDAY. Gabapentin (Gabapentin) 300 Mg Capsule, 300 MG PO TID, (Reported) 1200, 1600, 2000 Ipratropium/Albuterol Sulfate (Iprat-Albut 0.5-3(2.5) mg/3 ml) 1 Maria G Maria G, 1 MARIA G INH BID, (Reported) TAKES AT 0500 AND 1700 ON WEDNESDAY, WEDNESDAY AND WEDNESDAY (DIALYSIS DAYS) AND TAKES AT 0800 AND 2000 ON WEDNESDAY, WEDNESDAY, WEDNESDAY AND WEDNESDAY. Patiromer Calcium Sorbitex (Veltassa) 8.4 Gm Powd.pack, 8.4 GM PO 1XWK, (Reported) WEDNESDAY Pramipexole Di-HCl (Mirapex) 0.125 Mg Tablet, 0.125 MG PO QHS, (Reported) Sennosides/Docusate Sodium (Senna-S Tablet) 1 Tab Tab, 2 TAB PO BID, (Reported) Sevelamer Carbonate (Renvela) 800 Mg Tab, 4,800 MG PO TID, (Reported) TAKES AT 0800, 1200, AND 1700 ON NON-DIALYSIS DAYS (WED, WED, WED, AND WED). TAKES AT 0500, 1200, 1700 ON , , SAT Vit B Comp No.3/Folic/C/Biotin (Nephro-Shante Rx Tablet) 1 Tab Tab, 1 TAB PO DAILY, (Reported) TAKES AT 1200 Scheduled PRN Acetaminophen (Acetaminophen) 325 Mg Tab, 650 MG PO Q4H PRN for PAIN / FEVER, (R eported) Albuterol Sulf (Albuterol Sulfate) 2.5 Mg/3 Ml Nebu, 2.5 MG INH Q2H PRN for COPD, (Reported) Albuterol Sulfate (Proventil Hfa) 6.7 Gm Hfa.aer.ad, 2 PUFF INH Q4H PRN for SOB/WHEEZING, (Reported) Alprazolam (Alprazolam) 1 Mg Tablet, 1 MG PO Q6H PRN for ANXIETY, (Reported) Bisacodyl (Dulcolax) 10 Mg Supp.rect, 10 MG VT DAILY PRN for CONSTIPATION, (Reported) Guaifenesin/Dextromethorphan (Guaifenesin Dm Syrup) 5 Ml Syrup, 10 ML PO Q4H PRN for COUGH/SECRETIONS, (Reported) Oxycodone HCl (Oxycodone HCl) 5 Mg Tablet, 5 MG PO 3XW PRN for PAIN, (Reported) AT 0500 ON , , SAT. Oxycodone HCl/Acetaminophen (Oxycodone-Acetaminophen 5-325) 1 Each Tablet, 2 TAB PO 3XW PRN for PAIN, (Reported) GIVE AT 0500 BEFORE DIALYSIS Oxycodone HCl/Acetaminophen (Oxycodone-Acetaminophen 5-325) 1 Each Tablet, 1 TAB PO Q6H PRN for PAIN, (Reported) Phenyleph/Shark Oil/Mo/Petrol (Preparation H Ointment) 28 Gm Oint.appl, 1 APPLIC VT BID PRN for HEMORRHOIDS, (Reported) Sodium Phosphate,[place]-Dibasic (Enema) 133 Ml Enema, 1 MAHI VT DAILY PRN for CONSTIPATION, (Reported) Allergies Coded Allergies: moxifloxacin (Verified Allergy, Intermediate, RASH, 07/05/19) codeine (Verified Allergy, Unknown, 09/30/19) valsartan (Verified Allergy, Unknown, 09/30/19) Past Medical History Medical History 1. Morbid obesity. 2. Obstructive sleep apnea. 3. Obesity hypoventilation syndrome. 4. Chronic hypercapnic respiratory failure requiring tracheostomy. 5. End-stage renal disease requiring maintenance hemodialysis on Wednesday, , Wednesday. 6. bacteremia. 7. Paroxysmal atrial fibrillation. 8. Chronic anxiety and depression. 9. Noncompliance with dietary and fluid restriction. 10. Hyperparathyroidism. 11. Spinal stenosis. 12. Insertion of PermCath in February 2019. 13. Thrombosis of AV fistula. 14. Pickwickian syndrome. 15. Supermorbid obesity. 16. Chronic respiratory failure with tracheostomy. Surgical History PAST SURGICAL HISTORY: 1. Tracheostomy. 2. permacath placement Family History I reviewed his family history and found not pertinent Social History * Smoker: Denies Alcohol: Denies Drugs: denies A-FIB/CHADSVASC A-FIB History Current/History of A-Fib/PAF?: Yes Current PO Anticoag Therapy: No Treatment Reason Anticoagulant not given: Other (patient is on chronic hemostasis) Other reason anticoagulant not: peripheral bleed Review of Systems Constitutional: Reports: Chills; Denies: Fever Eyes: Denies: Pain ENT: Denies: Head Aches, Ear Pain Skin: Reports: Lesions (multiple superficial scratches on the left distal leg); Denies: Rash Pulmonary: Reports: Dyspnea Cardiovascular: Denies: Chest Pain, Palpitations Gastrointestinal: Denies: Nausea, Vomiting Genitourinary: Denies: Dysuria Hematologic: Denies: Bruising, Bleeding Excessively Endocrine: Denies: Polydipsia, Polyphagia Musculoskeletal: Denies: Neck Pain, Back Pain Neurological: Denies: Weakness, Numbness Psych: Reports: Anxiety Physical Examination General Exam: Positive: Moderate Distress Eye Exam: Positive: PERRLA ENT Exam: Positive: Atraumatic Neck Exam: Positive: Supple; Negative: JVD Chest Exam: Positive: Diminished Heart Exam: Positive: Rate Normal, Irregular Rhythm; Negative: Regular Rhythm Telemetry: Positive: Atrial fibrillation Abdomen Exam: Positive: Normal bowel sounds Extremity Exam: Negative: Clubbing Skin Exam: Positive: Breakdown (multiple scratches of the left distal leg) Neuro Exam: Positive: Cranial Nerves 3-12 NL; Negative: Normal Gait Psych Exam: Positive: Mental status NL Vital Signs Vital Signs Date Time Temp Pulse Resp B/P (MAP) Pulse Ox O2 Delivery O2 Flow Rate FiO2 09/30/19 16:34 15 30 09/30/19 14:26 65 09/30/19 13:53 Trach Collar 10.0 09/30/19 13:41 97 09/30/19 12:01 113/59 (77) 09/30/19 11:33 97.2 Laboratory Data Labs 24H Laboratory Tests 2 09/30/19 11:15: Immature Granulocyte % (Auto) 0.6, Neutrophils (%) (Auto) 63.9, Lymphocytes (%) (Auto) 22.7L, Monocytes (%) (Auto) 6.5H, Eosinophils (%) (Auto) 5.6H, Basophils (%) (Auto) 0.7, Neutrophils # (Auto) 5.6, Lymphocytes # (Auto) 2.0, Monocytes # (Auto) 0.6, Eosinophils # (Auto) 0.5, Basophils # (Auto) 0.1, Nucleated Red Blood Cells % (auto) 0.0, Blood Gas Bicarbonate Standard 21.4, Venous Blood pH 7.171L, Venous Blood Partial Pressure CO2 75.7H, Venous Blood Partial Pressure O2 43.8, Venous Blood Total Carbon Dioxide 29.4H, Venous Blood HCO3 27.1H, Venous Blood Oxygen Saturation 74.9, Venous Blood Base Excess -3.2L, Anion Gap 7L, Glomerular Filtration Rate 10.4L, Lactic Acid Level 1.7, Calcium Level 8.5, Total Bilirubin 0.5, Direct Bilirubin 0.2, Aspartate Amino Transf (AST/SGOT) 28, Alanine Aminotransferase (ALT/SGPT) 58, Alkaline Phosphatase 102, Total Creatine Kinase 73, Creatine Kinase MB 2.1, Creatine Kinase MB Relative Index 2.88, Troponin I < 0.02, XK-Slw-A-Type Natriuretic Peptide 622H, Total Protein 8.1, Albumin 3.7, Albumin/Globulin Ratio 0.84L, Thyroid Stimulating Hormone (TSH) 3.500 09/30/19 12:50: Prothrombin Time 14.0, Prothromb Time International Ratio 1.11 09/30/19 16:16: POC pH (Misc Panel) 7.141*L, POC Base Excess (Misc Panel) 0.0, POC Saturated P ercent O2 (Misc) 94L, POC pO2 (Misc Panel) 98.0, POC pCO2 (Misc Panel) 85.1*H, POC HCO3 (Misc Panel) 29.0H, POC Total CO2 (Misc Panel) 32.0H CBC/BMP Laboratory Tests 09/30/19 11:15 Microbiology Microbiology 09/30/19 Blood Culture, Received Pending 09/30/19 Respiratory Virus Panel (PCR) (JONG) - Final, Complete 09/30/19 Blood Culture, Received Pending Assessment/Plan Patient is 49 years old male with past medical history of morbid obesity, hyperventilation syndrome, chronic hypercapnic respiratory failure status post tracheostomy, end-stage renal diseases presented hospital with acute on chronic respiratory failure. Today after dialysis patient developed acute hypoxemic hypercapnic respiratory failure with mental confusion. Patient was found to have pH 7.1, CO2 75, O2 43. Also patient stated that he has been having chills. In emergency room patient was found to have no leukocytosis, he is afebrile, he was placed on the BiPAP with his home settings. Problems (1) Acute and chronic respiratory failure with hypercapnia Status: Acute Response to Treatment: Worse Problem Text: No Doppler venous ultrasound evidence of DVT in the bilateral lower extremities. However patient had chronic pulmonary embolism with history of chronic DVTs I will proceed with CTA Respiratory panel negative Continue BiPAP with home settings (2) ESRD (end stage renal disease) on dialysis Status: Chronic Problem Text: Continue dialysis (3) Metabolic encephalopathy Status: Acute Problem Text: Secondary to acute hypoxemic Hypercapnic respiratory failure Continue BiPAP Will repeat ABG (4) Atrial fibrillation Status: Chronic Problem Text: Patient is not on the anticoagulation due to perinephric bleeding when the patient was placed on warfarin for atrial fibrillation per Dr. Kimball (5) Morbid obesity Problem Text: Morbid obesity. Pickwickian syndrome with obesity hypoventilation syndrome Elizabeth lift at baseline at [facility] chronically. Patient will benefit from bariatric surgery Plan / VTE VTE Prophylaxis Ordered?: Yes SANTY DUGAN DO Sep 30, 2019 18:08
[2019-09-30 18:40] LABS: ABG BASE EXCESS -1.9 (-2.0-2.0); ABG HCO3 27.4 MEQ/L (22.0-26.0); ABG O2 SATURATION 88.9 % (95.0-99.0); ABG PARTIAL PRESSURE O2 58.7 mmHg (75.0-100.0); ABG STANDARD HCO3 22.7 MEQ/L (22.0-26.0); ABG TOTAL CO2 29.6 MEQ/L (22.0-29.0)
[2019-09-30 18:41] LABS: HEMATOCRIT 41.1 % (42.0-52.0); HEMOGLOBIN 12.2 g/dl (13.5-17.5); MEAN CORPUSCULAR HEMOGLOBIN 33.2 pg (27.0-33.0); MEAN CORPUSCULAR HGB CONC 29.7 g/dl (32.0-36.5); MEAN CORPUSCULAR VOLUME 111.7 fl (80.0-96.0); PLATELET COUNT, AUTOMATED 119 10^3/uL (150-450); RED BLOOD COUNT 3.68 10^6/uL (4.30-6.10)
[2019-09-30 18:42] LABS: ABG PARTIAL PRESSURE CO2 69.8 mmHg (35.0-45.0); ABG pH (ARTERIAL) 7.212 UNITS (7.350-7.450)
[2019-09-30 19:03] LABS: CREATININE FOR GFR 6.58 MG/DL (0.70-1.30); GLOMERULAR FILTRATION RATE 9.7 (>60); POTASSIUM SERUM 4.8 MEQ/L (3.5-5.1)
[2019-09-30] MEDS: IPRATROPIUM 0.5MG/ALBUTEROL 2.5MG INH SOL UD 3ML (DUONEB)(J7620) INH SCH (19:47)
[2019-09-30 20:00] VITALS: BP 133/74
[2019-09-30] MEDS: HEPARIN SOD (PORCINE) 5000 UNITS/ML VIAL SC SCH (21:02)
[2019-09-30] MEDS: PRAMIPEXOLE (MIRAPEX) 0.125 MG TAB PO SCH (21:02)
[2019-09-30] MEDS: SENOKOT S TAB PO SCH (21:02)
[2019-09-30] MEDS: ESCITALOPRAM OXALATE 10 MG TAB (LEXAPRO) PO SCH (21:03)
[2019-09-30] MEDS: CARVedilol 6.25 MG TAB PO SCH (21:03)
[2019-09-30] MEDS: AMIODARONE 200 MG TAB (PACERONE) PO SCH (21:03)
[2019-09-30] MEDS: PERCOCET 5MG/325MG TAB PO PRN (21:04)
[2019-09-30] MEDS: ALPRAZolam 0.5 MG TAB PO PRN (21:11)
[2019-09-30] MEDS: guaiFENesin DM LIQ 10ML UD PO PRN (21:43)
[2019-09-30] MEDS: ALBUTEROL 90 MCG/ACT 8GM HFA INHALER INH PRN (23:23)
[2019-10-01] VITALS (9 sets, daily range): BP systolic 114–149; BP diastolic 61–78
[2019-10-01] MEDS: ALPRAZolam 0.5 MG TAB PO PRN ×2 (05:59→17:01)
[2019-10-01] MEDS: PERCOCET 5MG/325MG TAB PO PRN ×2 (06:00→20:56)
[2019-10-01] MEDS: guaiFENesin DM LIQ 10ML UD PO PRN ×2 (06:01→20:55)
[2019-10-01] MEDS: (RENVELA) SEVELAMER **CARBONate** 800 MG TAB PO SCH ×3 (08:00→17:51)
[2019-10-01] MEDS: IPRATROPIUM 0.5MG/ALBUTEROL 2.5MG INH SOL UD 3ML (DUONEB)(J7620) INH SCH ×2 (08:47→20:29)
[2019-10-01 08:48] LABS: ABG BASE EXCESS -8.1 (-2.0-2.0); ABG HCO3 19.7 MEQ/L (22.0-26.0); ABG PARTIAL PRESSURE CO2 49.6 mmHg (35.0-45.0); ABG PARTIAL PRESSURE O2 60.9 mmHg (75.0-100.0); ABG STANDARD HCO3 17.8 MEQ/L (22.0-26.0); ABG TOTAL CO2 21.2 MEQ/L (22.0-29.0)
[2019-10-01 08:52] LABS: ABG pH (ARTERIAL) 7.216 UNITS (7.350-7.450)
[2019-10-01] MEDS: DOCUSATE SODIUM 100 MG CAP PO SCH (09:27)
[2019-10-01] MEDS: SENOKOT S TAB PO SCH ×2 (09:27→20:25)
[2019-10-01] MEDS: HEPARIN SOD (PORCINE) 5000 UNITS/ML VIAL SC SCH (09:27)
[2019-10-01] MEDS: ALBUTEROL 90 MCG/ACT 8GM HFA INHALER INH PRN ×2 (12:51→15:15)
[2019-10-01 12:53] LABS: ABG HCO3 22.4 MEQ/L (22.0-26.0); ABG O2 SATURATION 86.2 % (95.0-99.0); ABG PARTIAL PRESSURE CO2 45.9 mmHg (35.0-45.0); ABG PARTIAL PRESSURE O2 52.6 mmHg (75.0-100.0); ABG STANDARD HCO3 20.9 MEQ/L (22.0-26.0); ABG TOTAL CO2 23.8 MEQ/L (22.0-29.0); ABG pH (ARTERIAL) 7.306 UNITS (7.350-7.450)
[2019-10-01] MEDS: AMIODARONE 200 MG TAB (PACERONE) PO SCH (13:02)
[2019-10-01] MEDS: ESCITALOPRAM OXALATE 10 MG TAB (LEXAPRO) PO SCH (13:03)
[2019-10-01] MEDS: CARVedilol 6.25 MG TAB PO SCH ×3 (13:03→20:29)
[2019-10-01] MEDS: ACETAMINOPHEN TAB 650MG DOSE (2X325MG) PO PRN (13:56)
[2019-10-01] MEDS ORDERED: AMIODARONE HCL 150 MG in IV 1 EA IV STA (14:02)
--- NOTE | 2019-10-01 14:16 | CR ---
DATE OF CONSULTATION: 10/01/2019 REQUESTING PROVIDER: Jovanny Doty DO REASON FOR CONSULTATION: To assist in the management of end-stage renal disease and shortness of breath. HISTORY OF PRESENT ILLNESS: Mr. Richard is a 49-year-old gentleman with multiple comorbid conditions. He has been a long-term care home resident due to chronic respiratory failure, inability to walk due to severe spinal stenosis, end-stage renal disease and respiratory failure with obstructive sleep apnea, status post tracheostomy. The patient was admitted yesterday due to generalized weakness and altered mentation. He did have dialysis treatment prior to admission. He was found to have hypoxemia and hypercarbia at the time of admission. Chest x-ray did not show any evidence of volume overload. PAST MEDICAL AND SURGICAL HISTORY: Significant for: 1. Super morbid obesity. 2. Obstructive sleep apnea. 3. Obesity hypoventilation syndrome, status post tracheostomy. 4. End-stage renal disease requiring maintenance hemodialysis on Wednesday, and Wednesday schedule. 5. History of paroxysmal atrial fibrillation. 6. History of chronic anxiety and depression. 7. History of secondary hyperparathyroidism. 8. History of severe spinal stenosis and unable to even stand. 9. History of AV fistula thrombosis. 10. History of anemia of chronic kidney disease. 11. Severe chronic back pain. PAST SURGICAL HISTORY: Significant for: Tracheostomy. PermaCath placement. Multiple procedures for AV fistula. MEDICATIONS: His chronic care home medications include: - amiodarone 200 mg daily - Carvedilol 6.25 mg b.i.d. - Colace 100 mg two tablets daily - vitamin D 50,000 units once a week - escitalopram 10 mg daily - Auryxia 210 mg t.i.d. with meals - gabapentin 300 mg t.i.d. - VELTASSA 8.4 grams once a week - DuoNebs as needed for difficulty breathing - Senokot-S two tablets b.i.d. - Renvela 800 mg six tablets t.i.d. with meals - multivitamin one tablet daily - Xanax 1 mg every 6 hours p.r.n. anxiety - oxycodone 5 mg three times a week as needed for dialysis ALLERGIES: The patient has allergies to: 1. CODEINE. 2. VALSARTAN. 3. AVELOX. PERSONAL AND SOCIAL HISTORY: The patient has been a long-term care home resident with multiple comorbid conditions. He is unable to walk. There is no history of alcohol or tobacco use for several years. FAMILY HISTORY: Unremarkable and noncontributory. REVIEW OF SYSTEMS: The patient denies any fever or chills. Ears, nose and throat are unremarkable. He denies any headache. Cardiovascular system is significant for history of paroxysmal atrial fibrillation. He denies any chest pain. Respiratory system is significant for chronic respiratory failure with hypercarbia and hypoventilation. He is status post tracheostomy. Gastrointestinal (GI) system is negative for vomiting or diarrhea. He has chronic noncompliance with dietary restrictions. Genitourinary () system is unremarkable for any dysuria or hematuria. Musculoskeletal system is significant for morbid obesity and inability to even stand up. He has severe spinal stenosis. Neurological system is significant for severe spinal stenosis and peripheral neuropathy. Psychosocial system is significant for anxiety and depression. Endocrine system is significant for secondary hyperparathyroidism and no history of diabetes. Skin is negative for rash or ulcers. PHYSICAL EXAMINATION: The patient is resting comfortably with tracheostomy on the ventilator. Temperature is 97.4 degrees Fahrenheit, heart rate 65 per minute and respiratory rate 18 per minute. Blood pressure 114/60 mmHg and oxygen saturation 92%. Head is atraumatic. Neck veins are difficult to be assessed. His tracheostomy is in place. Ears, nose and throat are unremarkable. Heart exam reveals regular S1 and S2 with distant heart sounds. Lungs have bilateral rhonchi with diminished breath sounds. He is morbidly obese. Abdomen is soft and morbidly obese. Bowel sounds are present. Extremities have no cyanosis or clubbing. His right arm AV fistula is wrapped with a dressing. Neurologically, he is awake and able to answer questions. LABORATORY DATA: WBC count is 8.0, hemoglobin 12.2 and hematocrit 41. His blood gas initially showed a pH of 7.21, pCO2 69.8, and pO2 58.7. Bicarb was 22.7. Sodium is 135, potassium 4.8, CO2 26, BUN 38 and creatinine 6.58. Glucose 99 and lactic acid level was 1.7. Chest x-ray done on admission did not show any acute consolidation or effusion. He did have some mild cardiomegaly. PROBLEMS: 1. Respiratory failure. The patient has history of hypercarbic respiratory failure in the past. His tracheostomy and ventilator were adjusted after his last admission. He seems to be doing better now on the ventilator. His volume status is very well compensated and I do not feel that hypervolemia has any role in his recent respiratory failure. He did complete his dialysis treatment and we removed 3 liters of fluid. At this point, there is no emergent indication for dialysis today. 2. End-stage renal disease. The patient is regularly dialyzed on Wednesday, and Wednesday schedule. He was dialyzed yesterday and we will plan on next dialysis for Wednesday. 3. Anemia. His anemia is very mild and does not need any intervention. 4. Hyperphosphatemia. The patient does have history of hyperphosphatemia with his end-stage renal disease and secondary hyperparathyroidism. His chronic phosphate binders should be continued. Thank you for involving me in the care of Mr. Richard. I will follow him along with you.
[2019-10-01] MEDS ORDERED: METOPROLOL 5 MG/5 ML VIAL IV STA (14:21)
[2019-10-01 14:54] LABS: HEMATOCRIT 39.6 % (42.0-52.0); HEMOGLOBIN 12.3 g/dl (13.5-17.5); MEAN CORPUSCULAR HEMOGLOBIN 33.7 pg (27.0-33.0); MEAN CORPUSCULAR HGB CONC 31.1 g/dl (32.0-36.5); MEAN CORPUSCULAR VOLUME 108.5 fl (80.0-96.0); PLATELET COUNT, AUTOMATED 131 10^3/uL (150-450); RED BLOOD COUNT 3.65 10^6/uL (4.30-6.10); WHITE BLOOD COUNT 8.4 10^3/uL (4.0-10.0)
--- NOTE | 2019-10-01 14:58 | ECGEPIP ---
[facility] Test Date: 2019-10-01 Pat Name: LINDSAY DEVINE Department: Room: [place] [address] Gender: Male Manager Critical Care: : 1970 Requested By: SANTY DUGAN Order Number: [id number] Reading MD: Jah Chery Measurements Intervals [place] Rate: 101 P: MA: 0 QRS: -75 QRSD: 130 T: 61 QT: 352 QTc: 458 Interpretive Statements Supraventricular tachycardia represents either sinus tachycardia with first degree av block and occassional atrial ectopy OR less likely atrial fibrillation with RVR LEFT ANTERIOR FASCICULAR BLOCK Intraventricular conduction delay POSSIBLE ANTERIOR MYOCARDIAL INFARCTION, OF INDETERMINATE AGE Rate increased from tracing done 09-30-19 baseline artifact Repeat tracing as clinical suspicion dictates Electronically Signed on 10-01-2019 14:57:57 EST by Jah Chery
[2019-10-01 15:23] LABS: ALBUMIN 3.5 GM/DL (3.2-5.2); ALT/SGPT 58 U/L (12-78); BILIRUBIN,TOTAL 0.7 MG/DL (0.2-1.0); BLOOD UREA NITROGEN 56 MG/DL (7-18); CARBON DIOXIDE LEVEL 26 MEQ/L (21-32); CHLORIDE LEVEL 99 MEQ/L (98-107); CK-MB VALUE MASS 1.6 NG/ML (<3.6); CPK CREATINE PHOSPHOKINASE 59 U/L (39-308); CREATININE FOR GFR 7.93 MG/DL (0.70-1.30); GLOMERULAR FILTRATION RATE 7.8 (>60); GLUCOSE, FASTING 103 MG/DL (70-100); MAGNESIUM LEVEL 1.9 MG/DL (1.8-2.4); MB/CK RELATIVE INDEX 2.71 (< OR =4); POTASSIUM SERUM 5.9 MEQ/L (3.5-5.1); SODIUM LEVEL 134 MEQ/L (136-145); TOTAL PROTEIN 7.7 GM/DL (6.4-8.2); TROPONIN I < 0.02 NG/ML (< 0.10)
[2019-10-01] MEDS ORDERED: ACETAMINOPHEN TAB 650MG DOSE (2X325MG) PO PRN (15:30)
[2019-10-01] MEDS ORDERED: MEROPENEM INJ 1 GM in IV 1 EA IV SCH (15:45)
[2019-10-01] MEDS ORDERED: DEXTROSE 50% 50 ML SYRINGE IV STA (15:57)
[2019-10-01] MEDS ORDERED: HumuLIN R (REGULAR) INSULIN (NovoLIN R) **100U/ML** PER UNIT IV STA (15:57)
[2019-10-01] MEDS ORDERED: PIPERACILLIN/TAZOBACTAM SOD 2.25 GM in D5W MINI-BAG PLUS 50 ML IV SCH (16:00)
[2019-10-01] MEDS ORDERED: FUROSEMIDE 40 MG/4 ML VIAL (J1940) IV ONE (16:30)
[2019-10-01] MEDS ORDERED: CALCIUM GLUCONATE 1,000 MG in D5W MINI-BAG PLUS 100 ML IV ONE (16:30)
[2019-10-01] MEDS ORDERED: ALBUTEROL SULFATE 2.5 MG/0.5 ML INH NEB SOLN NEB ONE (16:30)
[2019-10-01] MEDS ORDERED: SOD POLYSTYRENE SULFONATE SUSP 15 GM/60 ML UD PO ONE (17:00)
[2019-10-01] MEDS ORDERED: SODIUM BICARBONATE 150 MEQ in D5W 1,000 ML IV SCH (17:00)
[2019-10-01] MEDS ORDERED: VANCOMYCIN HCL 750 MG, VIAL MATE ADAPTER 1 EACH in D5W 250 ML IV ONE (17:00)
--- NOTE | 2019-10-01 17:06 | IPNPDOC ---
Text Note Date of Service The patient was seen on 10/01/19. NOTE Subjective: Around 2 PM patient developed a run of V. tach for 3 minutes, asy mptomatic. Patient received 150 mg of amiodarone IV, V. tach resolved. General Exam: Positive: Moderate Distress Eye Exam: Positive: PERRLA ENT Exam: Positive: Atraumatic,trachea tube in place Neck Exam: Positive: Supple; Negative: JVD Chest Exam: Positive: Diminished Heart Exam: Positive: Rate Normal, Irregular Rhythm; Negative: Regular Rhythm Telemetry: Positive: Atrial fibrillation Abdomen Exam: Positive: Normal bowel sounds Extremity Exam: Negative: Clubbing Skin Exam: Positive: Breakdown (multiple scratches of the left distal leg), AV fistula not inflamed Neuro Exam: Positive: Cranial Nerves 3-12 NL; Psych Exam: Positive: Mental status NL Patient is 49 years old male with past medical history of morbid obesity, hyperventilation syndrome, chronic hypercapnic respiratory failure status post tracheostomy, end-stage renal diseases presented hospital with acute on chronic respiratory failure. Today after dialysis patient developed acute hypoxemic hypercapnic respiratory failure with mental confusion. Patient was found to have pH 7.1, CO2 75, O2 43. Also patient stated that he has been having chills. In emergency room patient was found to have no leukocytosis, he is afebrile, he was placed on the BiPAP with his home settings. Sepsis Today patient developed fever with V. tach run for 3 minutes Blood culture, CBC Pro calcitonin 1.7 Ceftaroline IV, meropenem IV IV fluid Hyperkalemia insulin IV, glucose IV, sodium bicarbonate, calcium gluconate BMP every 4 hours monitoring manager V. tach Most likely secondary to infection and fever superimposed with electrolytes imbalance and acute on chronic respiratory failure with severe pulmonary hypertension Will increase the dose of carvedilol Continue amiodarone by mouth Appreciate/agree with e commerce marketing manager consult Acute and chronic respiratory failure with hypercapnia ABG showed improvement. PH 7.3 No Doppler venous ultrasound evidence of DVT in the bilateral lower extremities. However patient had chronic pulmonary embolism with history of chronic DVTs Dr. Lopez e commerce marketing manager recommended Eliquis 2.5 mg twice a day empirically Respiratory panel negative Continue BiPAP with home settings (ESRD (end stage renal disease) on dialysis Next session on dialysis on Wednesday Metabolic encephalopathy Resolved Secondary to acute hypoxemic Hypercapnic respiratory failure Continue ventilator Continue to monitor ABG Atrial fibrillation Patient was not on the anticoagulation due to perinephric bleeding when the patient was placed on warfarin for atrial fibrillation per Dr. Kimball Due to high risk of DVT and PE we started Eliquis Morbid obesity Morbid obesity. Pickwickian syndrome with obesity hypoventilation syndrome Elizabeth lift at baseline at [facility] chronically. VS,Fishbone, I+O VS, Fishbone, I+O Laboratory Tests 09/30/19 18:26 09/30/19 18:27 10/01/19 14:35 Vital Signs Date Time Temp Pulse Resp B/P (MAP) Pulse Ox O2 Delivery O2 Flow Rate FiO2 10/01/19 13:03 81 138/76 10/01/19 12:00 98.5 18 95 Trach Collar 09/30/19 16:34 30 09/30/19 13:53 10.0 I&O- Last 24 Hours up to 6 AM 10/01/19 06:00 Intake Total 0 ml Output Total 0 ml Balance 0 ml SANTY DUGAN DO Oct 01, 2019 17:06
[2019-10-01] MEDS ORDERED: VANCOMYCIN HCL 1,000 MG, VIAL MATE ADAPTER 1 EACH in D5W 250 ML IV ONE (18:00)
[2019-10-01] MEDS: MEROPENEM INJ 500 MG in IV 1 EA IV SCH (18:24)
[2019-10-01] MEDS: OSELTAMIVIR PHOSPHATE 30MG CAPSULE PO SCH (18:24)
[2019-10-01 20:10] LABS: HEMATOCRIT 36.1 % (42.0-52.0); HEMOGLOBIN 11.2 g/dl (13.5-17.5); MEAN CORPUSCULAR HEMOGLOBIN 33.6 pg (27.0-33.0); MEAN CORPUSCULAR VOLUME 108.4 fl (80.0-96.0); PLATELET COUNT, AUTOMATED 121 10^3/uL (150-450); RED BLOOD COUNT 3.33 10^6/uL (4.30-6.10); WHITE BLOOD COUNT 10.7 10^3/uL (4.0-10.0)
[2019-10-01] MEDS: APIXABAN 2.5 MG TAB (ELIQUIS) PO SCH (20:25)
[2019-10-01] MEDS: PRAMIPEXOLE (MIRAPEX) 0.125 MG TAB PO SCH (20:25)
[2019-10-01] MEDS: CEFTAROLINE FOSAMIL 200 MG in D5W 50 ML IV SCH (20:25)
--- NOTE | 2019-10-01 20:29 | CR ---
CARDIOLOGY CONSULTATION DATE OF CONSULTATION: 10/01/2019 REFERRING PHYSICIAN: Dr. Jovanny Doty, hospitalist. Copy to Dr. Curtis of nephrology and Dr. Yang of pulmonary medicine. INDICATION: Regular wide complex tachycardia. HISTORY: This 49-year-old, father of one, disabled jail resident with multiple complex medical problems, including morbid obesity, major depression, remote drug abuse, obstructive sleep apnea / hypoventilation syndrome, currently with tracheostomy on chronic home ventilation with chronic hypertension / hypertensive heart disease, heart failure (diastolic dysfunction), cor pulmonale and right heart failure, and hemodialysis dependent renal failure. He was admitted to the emergency room yesterday because of oxygen desaturation during his scheduled hemodialysis. At the time of his admission, he denied having any cough, was having chills and some confusion. He was initially afebrile with no leukocytosis. Chest x-ray reporting cardiomegaly with left lower lobe atelectasis but no pulmonary venous congestion. CT chest angiogram July 05, 2019 reportedly showed clear lung kline with no pulmonary embolism, interstitial or obstructive lung disease. He was admitted to a telemetry unit and on his mechanical ventilator remained free of further O2 desaturation. Plans were being made for his transfer back to [facility] when he spiked a temperature and also started developing tachycardia with wide complex regular at this 140 beats per minute. Consultation was placed. Patient has a tracheostomy and on the mechanical ventilator and unable to speak but was able to nod to questions. He claims not to have been having any chest discomfort, shortness of breath or awareness of his heart action. He is chronically on beta-ness and amiodarone for previously documented paroxysmal atrial fibrillation / flutter. Not receiving oral anticoagulation because of his hemodialysis dependent renal failure but has been free of symptomatic thromboembolic event. CORONARY RISK FACTORS: Male gender, age, nonsmoker. Chronic hypertension, morbid obesity, history of hyperlipidemia and stress-induced hyperglycemia. No family history of premature coronary heart disease. OTHER PAST MEDICAL HISTORY: Chronic depression, morbid obesity, obstructive sleep apnea, hypoventilation syndrome post tracheostomy on chronic home ventilation. Chronic renal insufficiency, hemodialysis dependent for years. Resident of [facility] the past 3 years. Severe spinal stenosis and chronic back pain. Chronic lower leg swelling. Noncompliance. Restless leg syndrome, history of atrial tachyarrhythmias dating back to at least December 2014. Gastroesophageal reflux disease. Prior sepsis due to methicillin sensitive Staphylococcus aureus (MSSA). First-degree AV block. Currently unable to walk. Metabolic encephalopathy related to CO2 retention. REVIEW OF SYSTEMS: Reports chills and has fever. No nasal congestion or apparent cough, sputum production. Denies headache does not wear glasses. No hearing problems. Good appetite with no recent GI upset or GI bleeding. No urinary complaints. History of severe spinal stenosis. Unable to walk and peripheral neuropathy. Chronic anxiety and depression. History of secondary hyperparathyroidism. All other systems reviews negative. MEDICATIONS: Customarily takes: - amiodarone 200 mg daily - carvedilol 6.25 mg twice a day - escitalopram 10 mg daily - DuoNebs as needed dyspnea - multivitamin - vitamin D 50,000 units weekly - Renvela 800 mg tablets six tablets three times a day with meals - oxycodone 5 mg three times a week as needed for dialysis and chronic back pain - gabapentin 300 mg three times a day - Veltassa 8.4 grams once weekly - Senokot 2 tablets twice a day - Colace 100 mg 2 tablets daily - Auryxia 210 mg three times a day with meals ALLERGIES: CODEINE, VALSARTAN, AVELOX. PHYSICAL EXAMINATION: Morbidly obese male lying seemingly comfortable with tracheostomy and connected to a bedside ventilator. Alert and responsive. Vital signs: Heart rate 84 beats per minute and regular with irregularities. Blood pressure 138/76, respiratory rate 18, oxygen saturation 95% on a ventilator. EYES: No pallor or icterus. No petechiae. No xanthelasma. ENT/MOUTH: Normal oral moisture. No central cyanosis. Neck: Tracheostomy in place. No apparent thyromegaly and unable to assess neck veins because of his obesity. RESPIRATORY: Barrel chested with good air entry over both lung kline. No current abnormal pulmonary adventitious sounds. CARDIOVASCULAR: Unable to palpate or visualize his apical impulse because of his morbid obesity. I am unable to hear any heart sounds or murmurs. Carotid upstroke appears to be normal with normal volume. No bruits. Nonpitting swelling lower legs with palpable pulses that were difficult to palpate. Unable to palpate abdominal aorta. No apparent bruits. GASTROINTESTINAL: Morbidly obese, soft and nontender. Unable to detect hepatosplenomegaly. Normal bowel sounds. Rectal examination not indicated. NEUROLOGIC/PSYCHIATRIC: He is alert and able to answer questions with nods. He is moving his extremities but unable to ambulate, as mentioned above because of his morbid obesity, peripheral neuropathy and severe spinal stenosis. SKIN: No rashes, ecchymotic lesions, pallor or icterus. No clubbing or peripheral cyanosis. Has AV fistula right forearm. INVESTIGATIONS: Portable upright chest x-ray taken yesterday was reviewed independently and shows gross cardiomegaly even though this is a rotated film, somewhat tortuous thoracic aorta. Prominent pulmonary trunk with dilated proximal pulmonary arterials, in keeping with pulmonary hypertension. Increased interstitial markings but no localized infiltrate or pleural effusion. Chest CT angiogram: Study from July 05, 2019 was reviewed independently and shows left ventricle upper limits of normal in size, at least moderately dilated left atrium, normal thoracic aorta diameters with some calcification. At least moderately dilated right heart chambers with markedly dilated pulmonary trunk measuring 3.5 cm, IVC 3.0 cm. No pericardial effusion. Some coronary artery calcification and calcification of the mitral annulus. No apparent evidence of pulmonary embolism. Bronchiectasis and atelectasis right middle lobe but no clear consolidation or pleural effusion. Evidence of splenomegaly with fatty infiltration of the liver. No adrenal mass. No pulmonary embolism. EKGs: Has had abnormal EKGs dating back to 2005 showing low voltages, leftward axis, left atrial conduction disturbance and incomplete left bundle branch block. The tracing September 30, 2019 shows underlying sinus rhythm with PACs versus a wandering atrial mechanism with obvious left atrial conduction disturbance and marked first-degree AV block measuring at least 230 milliseconds, left anterior hemiblock with incomplete left bundle branch block pattern and low voltages but no primary repolarization abnormalities. Appearance was not significantly changed from June. Tracing this afternoon at 02:10 p.m. shows some baseline artifact with suspected multifocal atrial tachycardia and average rate of 101 beats per minute. First-degree AV block as before. No acute ST / T-wave changes. speech pathology supervisor strip: Taken at 01:48 p.m. shows what appears to be multifocal atrial tachycardia at approximately 140 beats per minute with his incomplete becoming a complete left bundle branch block pattern at a constant rate. At the time of this strip, the patient was asymptomatic and his blood pressure did not change. The rhythm is wide complex appearance terminated gradually with QRS duration radiating back to baseline. Prior to each QRS complex with a wide QRS complex arrhythmia, there appeared to be evidence of atrial activity, however, there were a few fusion beats more in keeping with a ventricular origin. Echocardiograms: Has had at least two studies here at [facility], the last May 06, [address] Gómez taken at the time gram-positive septicemia. Study was of course technically difficult but showed at least a mild concentric left ventricle hypertrophy with preserved systolic function, a moderately dilated left atrium. Right heart chamber sizes were difficult to visualize but was thought to be normal. Some mitral annular calcification, although the valvular structures appeared to be normal. His inferior vena cava was significantly dilated in keeping with elevated central venous pressure and probable severe pulmonary hypertension. Small pericardial effusion. Normal aortic diameters. BLOOD WORK: Blood work today shows a hemoglobin of 12.3. Normal white blood cell count and only mild thrombocytopenia of 131,000. Admission PT / INR was normal at 14/1.1. Arterial blood gas on admission showed a pH of 7.2, pCO2 of 70, pO2 of 59. On his ventilator this afternoon, his pH was 7.3, pCO2 is 46, pO2 is 53. Admission electrolytes were in balance with BUN 37, creatinine 6.2, albumin was 3.7 with normal liver function studies. Troponin I level was negative. Random glucose 95. Admission pro BNP level was elevated 622. Chemistry this afternoon shows hyperkalemia of 5.9, slight hyponatremia of 134, BUN 56, creatinine 7.9, random glucose 103, magnesium was 1.1, calcium 8.0, albumin 3.5, ammonia level was elevated at 42. Other liver function studies were normal. Troponin I was negative. IMPRESSION/PLAN: 1. Wide complex regular tachycardia: Initially suspected to be supraventricular with his incomplete becoming complete bundle branch block, however, the visualized fusion beats are consistent with a ventricular tachycardia. The observed rate is relatively slow and asymptomatic with no change in his blood pressure or oxygen saturation. As discussed with his primary provider, this ventricular arrhythmia is likely on manifestation of his advanced / end-stage cor pulmonale superimposed with hypertensive / obesity heart disease. More likely a "secondary ventricular tachyarrhythmia" rather than a primary. Potential triggers are his acute infection and tenuous respiratory status, along with electrolyte disturbance with hyperkalemia. Primary management of his arrhythmia, which should be focused on optimal pulmonary care, and treatment of his infectious process. His hyperkalemia is mild at this time but he should probably receive hemodialysis tomorrow. He is already receiving amiodarone antiarrhythmic therapy with carvedilol. No change would be advised at this time. 2. Abnormal EKG: Features consistent with his morbid obesity, advanced pulmonary disease, hypertension and conduction tissue disease. I have suggested a slight increase in his carvedilol dosage with his more rapid rate with acute infection, but we will have to pay close attention to his AV conduction. Remains on telemetry at this time. 3. Heart failure (diastolic dysfunction / chronic): Related to his morbid obesity and chronic hypertension. He has evidence of moderately severe left ventricular hypertrophy with previously preserved systolic function but obvious LV diastolic dysfunction and prominently dilated left atrium. No clinical or radiographic evidence of acute pulmonary congestion. Obviously will need to continue with his modest salt and fluid intake restriction with his renal insufficiency and heart failure, fluid management with dialysis. Optimal oxygenation as mentioned above. Receiving carvedilol. Would be cautious with vasodilator therapy in light of his severe pulmonary hypertension. 4. Supraventricular tachycardia / multifocal atrial tachycardia / paroxysmal atrial flutter: A reflection of his advanced hypertensive and pulmonary heart disease. He is clearly at increased risk of a host of rhythm disturbances with his structural cardiac abnormalities. Currently on combination amiodarone and carvedilol, as mentioned above. We have suggested increasing his carvedilol dosage slightly for the time being with his acute sepsis. 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 Has not been on anticoagulant therapy because of his dialysis. 5. Hypertensive heart disease (benign with heart failure): Current blood pressure is adequately controlled with his dietary measures, dialysis and low-dose carvedilol. 6. Morbid obesity / obstructive sleep apnea / hypoventilation syndrome / cor pulmonale/ right heart failure: This is obviously his most life-threatening series of problems. The degree of his pulmonary hypertension is such that his prognosis is extremely guarded. Would recommend with his sedentary status and degree of his pulmonary hypertension, especially with his atrial tachyarrhythmias that he be treated with at least renal dose adjusted Eliquis 2.5 mg twice a day, even with the enhanced risk of hemorrhage in such patients. A pulmonary embolism here would be anticipated to be lethal. I have spoken frankly with the patient regarding his advanced pulmonary and cardiac problems that are not fixable and have encouraged him to consider do not resuscitate status. It has been emphasized that should he develop a more serious ventricular tachyarrhythmia, it is unlikely he would be successfully resuscitated. I will plan on following him temporarily with you and appreciate the opportunity to participate in his care. MARGO
[2019-10-01 20:40] LABS: CALCIUM LEVEL 8.6 MG/DL (8.5-10.1); POTASSIUM SERUM 5.1 MEQ/L (3.5-5.1)
[2019-10-01 20:41] LABS: CREATININE FOR GFR 8.41 MG/DL (0.70-1.30); GLOMERULAR FILTRATION RATE 7.3 (>60)
[2019-10-02] VITALS (149 sets, daily range): BP systolic 64–129; BP diastolic 29–71; O2SAT 92–94
--- NOTE | 2019-10-02 00:43 | IPNPDOC ---
Text Note Date of Service The patient was seen on 10/02/19. NOTE Rapid response was called at 1210 bc the patient was found altered and had di slodged his inner cannula. INITIAL VITALS HR 63/ BP 126/58 / R 16/ O2 98% / T 98.4 GEN: unresponsive HEENT: trach in place & currently connected to bag CVS: distant heart sounds LUNGS: decreased breath sounds NEURO: initially unresponsive to sternal rub or nail bed pressure ASSESSMENT & PLAN: is a 49 yr old M w a PMH of Chronic hypercapnic vent dependent respiratory failure, NISA/OHS, ESRD and paroxysmal A.fib who was admitted for management of SIRS of unclear source, metabolic encephalopathy and acute on chronic respiratory failure; his corse was complicated by reoccurrence of AMS therefore he will be transferred to ICU for vent management. 1.Encephalopathy Likely due to hypercapnia as his trach was temporarily disconnected from his Trilogy machine EKG was unremarkable Glucose was 113 Plan: frequent neurochecks / f/u ABG, CBC, CMP, Trop / consult Pulm/CC 2.Acute on Chronic Vent Dependent Respiratory Failure Plan: f/u ABG & chest x-ray / management per 3.Hypotension / Septic Shock? Per chart review patient was diagnosed with sepsis but I am unable to confirm the source. (the initial chest x-ray, respiratory panel and blood cx were negative) Shortly after arrival in the ICU his MAP dropped below 65 and it was difficult to find pulses with the Doppler US Plan: 500ml bolus of IVF / start Levophed / central line placement per Dr. Estrada / c/w current abx / day time team may consider Echo to r/o biventricular failure (he also has a hx of bacteremia) CC time 60 min VS,Fishbone, I+O VS, Fishbone, I+O Laboratory Tests 10/01/19 14:35 10/01/19 20:04 Vital Signs Date Time Temp Pulse Resp B/P (MAP) Pulse Ox O2 Delivery O2 Flow Rate FiO2 10/01/19 21:26 16 10/01/19 20:29 70 120/68 10/01/19 19:05 100.1 10/01/19 14:18 87 Ventilator 09/30/19 16:34 30 09/30/19 13:53 10.0 I&O- Last 24 Hours up to 6 AM 10/02/19 06:00 Intake Total 0 ml Output Total 0 ml Balance 0 ml GORAN MOCTEZUMA MD Oct 02, 2019 00:43
[2019-10-02] MEDS ORDERED: NOREPINEPHRINE 4 MG/4 ML AMP As Ordered ONE (00:52)
[2019-10-02] MEDS ORDERED: NS 500 ML IV ONE (01:00)
[2019-10-02 01:12] LABS: ABG BASE EXCESS -4.6 (-2.0-2.0); ABG HCO3 25.3 MEQ/L (22.0-26.0); ABG O2 SATURATION 49.1 % (95.0-99.0); ABG STANDARD HCO3 19.8 MEQ/L (22.0-26.0); ABG TOTAL CO2 27.6 MEQ/L (22.0-29.0)
[2019-10-02 01:14] LABS: ABG PARTIAL PRESSURE CO2 74.6 mmHg (35.0-45.0); ABG pH (ARTERIAL) 7.148 UNITS (7.350-7.450)
[2019-10-02 01:15] LABS: ABG PARTIAL PRESSURE O2 31.9 mmHg (75.0-100.0)
[2019-10-02] MEDS ORDERED: NOREPINEPHRINE BITARTRATE 4 MG in D5W 492 ML IV SCH (01:15)
[2019-10-02 01:38] LABS: BASO # 0.1 10^3/uL (0.0-0.2); BASO % 0.4 % (0.0-1.0); EOS # 0.2 10^3/uL (0.0-0.5); EOS % 1.7 % (0.0-3.0); HEMATOCRIT 37.5 % (42.0-52.0); HEMOGLOBIN 11.4 g/dl (13.5-17.5); LYMPH # 1.9 10^3/uL (1.5-5.0); LYMPH % 13.5 % (24.0-44.0); MEAN CORPUSCULAR HEMOGLOBIN 33.2 pg (27.0-33.0); MEAN CORPUSCULAR HGB CONC 30.4 g/dl (32.0-36.5); MEAN CORPUSCULAR VOLUME 109.3 fl (80.0-96.0); MONO # 1.1 10^3/uL (0.0-0.8); MONO % 7.8 % (0.0-5.0); NEUTROPHILS # 10.6 10^3/uL (1.5-8.5); NEUTROPHILS % 76.1 % (36.0-66.0); PLATELET COUNT, AUTOMATED 144 10^3/uL (150-450); RED BLOOD COUNT 3.43 10^6/uL (4.30-6.10); WHITE BLOOD COUNT 13.9 10^3/uL (4.0-10.0)
[2019-10-02 02:12] LABS: BLOOD UREA NITROGEN 63 MG/DL (7-18); CALCIUM LEVEL 8.2 MG/DL (8.5-10.1); CARBON DIOXIDE LEVEL 28 MEQ/L (21-32); CHLORIDE LEVEL 97 MEQ/L (98-107); CREATININE FOR GFR 8.56 MG/DL (0.70-1.30); GLOMERULAR FILTRATION RATE 7.2 (>60); GLUCOSE, FASTING 119 MG/DL (70-100); MAGNESIUM LEVEL 1.9 MG/DL (1.8-2.4); POTASSIUM SERUM 5.3 MEQ/L (3.5-5.1); SODIUM LEVEL 133 MEQ/L (136-145); TROPONIN I < 0.02 NG/ML (< 0.10)
[2019-10-02] MEDS: NOREPINEPHRINE BITARTRATE 8 MG in D5W 500 ML IV SCH (03:55)
[2019-10-02 04:02] LABS: ABG HCO3 25.1 MEQ/L (22.0-26.0); ABG O2 SATURATION 98.2 % (95.0-99.0); ABG PARTIAL PRESSURE CO2 47.4 mmHg (35.0-45.0); ABG PARTIAL PRESSURE O2 113.4 mmHg (75.0-100.0); ABG STANDARD HCO3 23.6 MEQ/L (22.0-26.0); ABG TOTAL CO2 26.5 MEQ/L (22.0-29.0); ABG pH (ARTERIAL) 7.341 UNITS (7.350-7.450)
[2019-10-02 05:56] LABS: HEMATOCRIT 36.5 % (42.0-52.0); HEMOGLOBIN 11.4 g/dl (13.5-17.5); MEAN CORPUSCULAR HEMOGLOBIN 32.9 pg (27.0-33.0); MEAN CORPUSCULAR HGB CONC 31.2 g/dl (32.0-36.5); MEAN CORPUSCULAR VOLUME 105.5 fl (80.0-96.0); PLATELET COUNT, AUTOMATED 126 10^3/uL (150-450); RED BLOOD COUNT 3.46 10^6/uL (4.30-6.10); WHITE BLOOD COUNT 14.9 10^3/uL (4.0-10.0)
[2019-10-02 06:22] LABS: CALCIUM LEVEL 8.2 MG/DL (8.5-10.1); CREATININE FOR GFR 8.49 MG/DL (0.70-1.30); GLOMERULAR FILTRATION RATE 7.2 (>60); MAGNESIUM LEVEL 1.8 MG/DL (1.8-2.4); POTASSIUM SERUM 4.9 MEQ/L (3.5-5.1)
--- NOTE | 2019-10-02 07:19 | CCN ---
DATE: 10/02/2019 CRITICAL CARE TIME: 1 hour and 38 minutes, this excludes all procedures. I was called to Mr. Richard's bedside after he had an episode in the progressive care unit (PCU). Apparently, the patient was admitted yesterday with hypercarbic respiratory failure despite chronic mechanical ventilation. He has a "Trilogy". Unclear settings at this point in time. He was having difficulties breathing. Eventually, this improved slightly over the day. Pulmonology was not consulted. The patient was having runs of what appeared to be a wide complex tachycardia, likely V-tach. He was loaded with amiodarone and carvedilol. This evening, after having a large bowel movement, the patient was turned and indicated that he could not breathe, had respiratory distress, hypoxia and his blood pressure plummeted. He was brought to the intensive care unit (ICU) where he was placed on mechanical ventilation on a Servo rather than the Trilogy. On my arrival, the patient was on PRVC with tidal volumes of 500 and not initiating his own breaths. Slowly, the patient came to and became more alert, however, had persistent hypotension. Therefore, I placed a central line and an arterial line for management of his hypotension and pending shock. The patient did not indicate any source of pain or discomfort. They had initiated antibiotics for the possibility of infection, although no source of infection has been found. Levophed was started peripherally. The patient's blood pressure remained low despite attempts towards resuscitation, 500 mL bolus was given by the primary team. Therefore, central line was placed as mentioned above and Levophed was continued through the femoral line. Internal jugulars (IJs) were attempted, however, the wire could not be thread through either IJ, probable underlying stenosis. He had multiple lines through both IJs on multiple different occasions. On both sides, the vein was easily accessed, however, the wire would not thread Therefore, femoral source was used. PHYSICAL EXAMINATION: Temperature is 96.5, pulse is 76, respiratory rate is 16, blood pressure is 108/55 with a mean arterial pressure of 72 on 10 mcg per kg per minute of Levophed, 96% oxygen saturation 0.0 FiO2. General: The patient is arousable, answers questions, shakes his head yes or no. HEENT: Sclerae clear and anicteric. Pupils equal and reactive to light. Mucous membranes are moist. Oropharynx is crowded. Mallampati IV. Unable to view the posterior pharynx. Very redundant tissue over the chin and neck. Difficult to assess jugular venous distention (JVP). Trache collar and trache covered with crusting mucus. This was cleaned. Lymphs: No cervical, supraclavicular or axillary adenopathy. Cardiac: Distant S1 and S2. Without audible murmur, rub or gallop. I am unable to palpate the PMI because of his morbid obesity. Pulmonary: Decreased breath sounds throughout both lung kline. I do not hear any rales or rhonchi. Initially I heard a wheeze, however, he was only on a PEEP of 5 on a PEEP of 10 and the wheeze disappeared. Abdomen: Morbidly obese, soft, nontender, nondistended. No discernible hepatosplenomegaly. Normoactive bowel sounds. Extremities: Chronic stasis changes. Fistula in the right arm. Neurologic: No evidence of seizure activity. No tremor. No myoclonus. The patient is able to move all extremities and communicate. Skin: No rashes, jaundice or bruising. Chest x-ray shows cardiomegaly and some blunting of the left costophrenic angle. No significant pulmonary infiltrate, but decreased lung kline. Laboratory evaluation shows a leukocytosis of 13.9, hemoglobin 11.4, platelet count of 144 with 76% neutrophilia. Sodium is low at 133, potassium 5.3, BUN 63, and creatinine is 8.56. Negative bilateral lower extremity Dopplers were performed. IMPRESSION: 1. Respiratory failure, likely acute on chronic. It is not clear that the patient actually needs additional ventilation than he is receiving at home. Would recommend that he receives at least 10 of PEEP. Will continue mechanical ventilation here. The patient should have a mechanical ventilator when discharged from the hospital rather than Trilogy. 2. Leukocytosis, possible underlying infection. The patient being covered by the primary care team with Ceftaroline and meropenem. Blood cultures are pending. No other sources of infection at this point in time. Will continue to monitor for signs and symptoms of sepsis and other sources of infection. 3. Wide complex tachycardia, most likely V tach. No evidence of this arrhythmia during this most recent event. Appreciate cardiology following. Will continue amiodarone, however, given the patient's severity of hypotension and requiring vasopressors will discontinue carvedilol. 4. Underlying heart failure. 5. Renal failure. 6. Morbid obesity. 7. Uremia. 8. Hypotension. Differential remains wide. The patient is at risk for bleeding given the fact that he is on Eliquis and has uremia. Will monitor for signs and symptoms of bleeding. Current hemoglobin is adequate. Will recheck with morning labs. Hypotension most likely secondary to infection. Possibility of cardiogenic shock. Will place on Levophed and hold antihypertensives at this point in time. 9. Deep vein thrombosis (DVT) prophylaxis, on Eliquis.
--- NOTE | 2019-10-02 07:45 | RO ---
DATE OF PROCEDURE: 10/02/2019 PREOPERATIVE DIAGNOSIS: Shock. POSTOPERATIVE DIAGNOSIS: Shock. PROCEDURE: Left femoral arterial line. SURGEON: Dr. Sunday Estrada SAS ETL DEVELOPER: None. ANESTHESIA: 1% lidocaine. CONSENT: The patient gave verbal consent. DESCRIPTION OF PROCEDURE: The left groin was prepped and draped with chlorhexidine, full sterile barrier precautions. A time out was performed with two patient identifiers, identifying correct site and correct procedure. The Arrow femoral line kit was used. A needle was easily entered into the femoral artery on the first pass under ultrasound guidance. A wire was fed through the needle and a femoral ART line was placed via modified Seldinger technique with removal of the wire. This was attached to arterial monitoring and showed adequate waveform. This was sutured in place. Minimal oozing around the site. Surgicel was used along with five minutes of pressure. Sterile impregnated dressing was placed over the site. There were no observed complications.
[2019-10-02] MEDS: (RENVELA) SEVELAMER **CARBONate** 800 MG TAB PO SCH ×3 (08:00→18:00)
[2019-10-02] MEDS: IPRATROPIUM 0.5MG/ALBUTEROL 2.5MG INH SOL UD 3ML (DUONEB)(J7620) INH SCH ×2 (08:01→19:15)
--- NOTE | 2019-10-02 08:09 | RO ---
DATE OF PROCEDURE: 10/02/2019 PROCEDURE: Left femoral triple-lumen catheter. PREPROCEDURE DIAGNOSIS: Hypotension. The patient is on vasopressors requiring central access. POSTPROCEDURE DIAGNOSIS: Hypotension requiring vasopressors. PROCEDURALIST: Dr. Estrada STRUCTURAL STEEL DETAILER: None. ANESTHESIA: 1% lidocaine. CONSENT: Consent verbally given by the patient. DESCRIPTION OF PROCEDURE: The left groin was prepped and draped in a sterile manner with chlorhexidine and full sterile barrier precautions. Time-out was performed identifying correct site, correct procedure with two patient identifiers. The vein was identified under ultrasound just directly posterior and slightly lateral to the artery. It was entered on the first pass. There was return of venous blood flow, wire was fed through the needle and the needle was removed. Triple-lumen catheter was fed over the wire and the wire was removed. All three ports returned venous blood flow and flushed easily. These were sutured in. Sterile impregnated dressing was placed over the site. Of note, prior times at the IJ bilaterally would allow entrance into the vein but the wire would not thread past 11-12 cm. He likely has stenosis of the SVC. No observed complications.
[2019-10-02] MEDS ORDERED: NOREPINEPHRINE BITARTRATE 8 MG in D5W 492 ML IV SCH (08:15)
--- NOTE | 2019-10-02 08:17 | REP ---
PORTABLE CHEST X-RAY: Single view. HISTORY: Dyspnea. COMPARISON CHEST X-RAY: September 30, 2019. FINDINGS: Tracheostomy tube remains in good position. Monitoring electrodes are seen. Cardiomegaly is observed. There is a small zone of plate-like atelectasis in the left lung base. Pleural angles are sharp. No new infiltrate is seen. Pulmonary vasculature appears somewhat cephalized. IMPRESSION: Tracheostomy tube in good position. Mild cardiomegaly. Electronically Signed by Elvis Vo MD 10/02/2019 11:44 A
[2019-10-02] MEDS: CEFTAROLINE FOSAMIL 200 MG in D5W 50 ML IV SCH ×2 (09:03→20:36)
[2019-10-02] MEDS: SENOKOT S TAB PO SCH ×2 (09:23→20:37)
[2019-10-02] MEDS: APIXABAN 2.5 MG TAB (ELIQUIS) PO SCH ×2 (09:23→20:37)
[2019-10-02] MEDS: DOCUSATE SODIUM 100 MG CAP PO SCH (09:23)
[2019-10-02] MEDS: PERCOCET 5MG/325MG TAB PO PRN ×2 (09:27→17:55)
--- NOTE | 2019-10-02 10:43 | IPNPDOC ---
Text Note Date of Service The patient was seen on 10/02/19. NOTE CARDIOLOGY PROGRESS NOTE SUBJECTIVE: Patient seen and examined this morning lying in bed while being set up for hemodialysis in his room in the ICU. Patient has a tracheostomy and is on a mechanical ventilator and is unable to speak but can communicate by nodding in response to questions. He denies any current complaints. OBJECTIVE: VITAL SIGNS: Temperature 98.2 F. Heart rate 65. Respiratory rate 16. Blood pressure 119/69 supine. O2 saturation 96% on ventilator with FiO2 40%. GENERAL: Morbidly obese male laying comfortably in bed with tracheostomy attached to a ventilator. No apparent respiratory distress NECK: Unable to assess JVD due to obesity CARDIOVASCULAR: Distant heart sounds due to morbid obesity, unable to assess for murmurs, rubs, or gallops. RESPIRATORY: Decreased breath sounds throughout bilateral lung kline. Equal air entry bilaterally. No wheezing, rhonchi, or rales. ABDOMEN: Soft, nontender, nondistended. EXTREMITIES: Trace pitting edema appreciated in bilateral lower extremities up to the knee. No cyanosis. Pulses 2+/4 in bilateral radial and dorsalis pedis arteries. AV fistula present on the right forearm. LABORATORY DATA: Hemoglobin stable at 11.4. WBC count increased to 14.9. Platelet count decreased to 126,000. Sodium increased. Potassium stable at 4. 9. Bicarbonate stable at 25. Creatinine decreased to 8.49. Estimated glomerular filtration rate stable at 7.2. Fasting glucose elevated at 120. Troponins remain negative overnight at less than 0.02. Lactic acid level normal at 1.3. Last ABG revealed an improving respiratory acidosis with a pH 7.341, PCO2 47.4, PO2 113.4 while on the ventilator, bicarbonate 25.1, total CO2 26.5, O2 saturation 98.2. ASSESSMENT/PLAN: 1. Wide complex regular tachycardia: Likely a secondary ventricular tachyarrhythmia rather than a primary one related to his end-stage cor pulmonale and concurrent hypertensive and obesity related heart disease along with his current acute illness. Management should focus primarily on optimization of his respiratory status and treatment of underlying acute triggers such as acute infection and electrolyte imbalance. Continue with amiodarone. Suggest resta rting carvedilol once he is off vasopressors and his blood pressure stabilized. No further recommendations at this time. 2. Abnormal EKG: Features consistent with his morbid obesity, advanced pulmon jared disease, hypertension and conduction tissue disease. Patient remains on telemetry. 3. Heart failure (diastolic dysfunction / chronic): Related to chronic hypertension and morbid obesity. Continue with salt and fluid intake restrictions and fluid management through hemodialysis. Patient's carvedilol is on hold while he remains on vasopressors for hypotension, would restart this medication once his blood pressure stabilized and he is off vasopressors. Suggest caution with using any vasodilator therapy in the setting of his severe pulmonary hypertension. 4. Supraventricular tachycardia / multifocal atrial tachycardia / paroxysmal atrial flutter: Continue with amiodarone. Once his blood pressure is stabilized and he is off vasopressors, he should be restarted on carvedilol. Continue with Eliquis for anticoagulation. 5. Hypertensive heart disease (benign with heart failure): Patient currently hypotensive and receiving vasopressor medication. Carvedilol is on hold at this time. 6. Morbid obesity / obstructive sleep apnea / hypoventilation syndrome / cor pulmonale/ right heart failure: Prognosis is guarded. Continue with Eliquis considering his sedentary status, pulmonary hypertension, and atrial tachyarrhythmias to help prevent a potentially lethal pulmonary embolus. VS,Fishbone, I+O VS, Fishbone, I+O Laboratory Tests 10/01/19 14:35 10/01/19 20:04 10/02/19 01:20 10/02/19 05:40 Vital Signs Date Time Temp Pulse Resp B/P (MAP) Pulse Ox O2 Delivery O2 Flow Rate FiO2 10/02/19 09:27 16 Ventilator 10/02/19 08:01 65 96 40 10/02/19 06:30 98.0 119/69 10/02/19 05:56 40.0 I&O- Last 24 Hours up to 6 AM 10/02/19 05:59 Intake Total 0 ml Output Total 0 ml Balance 0 ml GAMALIEL BRAVO D.O. Oct 02, 2019 10:43
[2019-10-02] MEDS: ESCITALOPRAM OXALATE 10 MG TAB (LEXAPRO) PO SCH (12:43)
[2019-10-02] MEDS: AMIODARONE 200 MG TAB (PACERONE) PO SCH (12:43)
--- NOTE | 2019-10-02 13:30 | ECGEPIP ---
[facility] Test Date: 2019-10-02 Pat Name: LINDSAY DEVINE Department: Room: [place] [address] Gender: Male Sales Host: TANIA : [id number] Requested By: GORAN MOCTEZUMA Order Number: [id number] Reading MD: Jah Hdz Measurements Intervals Parrish Rate: 62 P: -31 UT: 231 QRS: -58 QRSD: 131 T: 30 QT: 464 QTc: 471 Interpretive Statements SINUS RHYTHM WITH FIRST DEGREE AV BLOCK Nonspecific intraventricular conduction delay Poor R wave progression. Marked left axis deviation Decreased heart rate compared with 10/01/2019. Electronically Signed on 10-02-2019 13:29:48 EST by Jah Hdz
--- NOTE | 2019-10-02 13:50 | CR.PDOC ---
General Date of Consultation: Oct 02, [address] Ybarra HPI: Mr. Richard is a 49-year-old male with end-stage renal disease on hemodialysis with a right upper extremity Mor fistula that has been chronically challenging for access and flows. The patient was admitted to [facility] 09/30/19 with acute on chronic respiratory failure. The patient is currently on ventilator in the ICU. Levophed is being titrated, BP currently 111/60. Vascular surgery is consulted regarding access and difficulty accessing right upper extremity fistula this morning for dialysis. The patient reportedly last had dialysis with a full session on Wednesday. Past medical history 1. Morbid obesity. 2. Obstructive sleep apnea. 3. Obesity hypoventilation syndrome. 4. Chronic hypercapnic respiratory failure requiring tracheostomy. 5. End-stage renal disease requiring maintenance hemodialysis on Wednesday, , Wednesday. 6. bacteremia. 7. Paroxysmal atrial fibrillation. 8. Chronic anxiety and depression. 9. Noncompliance with dietary and fluid restriction. 10. Hyperparathyroidism. 11. Spinal stenosis. 12. Insertion of PermCath in February 2019. 13. Thrombosis of AV fistula. 14. Pickwickian syndrome. 15. Supermorbid obesity. 16. Chronic respiratory failure with tracheostomy. PAST SURGICAL HISTORY: 1. Tracheostomy. 2. permacath placement SOCHX: Tobacco use: Denies ETOH: Denies FAMHX: Mother due to lung cancer, father , unknown. PE: GEN: 49 yo M, morbidly obese. No acute distress currently, on ventilator in the ICU. Responding to commands. HEENT: Normocephalic, atraumatic. Tracheostomy in place. CHEST: Regular rate and rhythm, +S1, +S2 EXT: Pulses 2+ bilaterally dorsalis pedis and radial. No lower extremity edema appreciated. SKIN: AV fistula right upper extremity, bandage in place over the fistula. Exam Requested: VEIN MAPPING PRE AVFBILATERAL Reason for Patient Visit: JOSE LOWER EXT ESRD DIALYSIS DEPEND Reason for Exam: JOSE UPPER EXT VEIN MAPPING ESRD DIALYSIS DEPEND BILATERAL UPPER EXTREMITY DUPLEX DOPPLER ARTERIAL AND VENOUS ULTRASOUND for AV FISTULA MAPPING: Real-time ultrasound evaluation and duplex Doppler interrogation of bilateral upper extremity venous and arterial systems is performed. On the right jugular vein appears partially thrombosed. AV fistula at the wrist is patent between radial artery and cephalic vein. AV fistula in the mid forearm demonstrates diffuse complete thrombosis. A small amount of venous flow is seen. The left jugular vein is patent. Left AV fistula at the wrist between the radial artery and cephalic vein is significantly occluded with a small amount of residual flow. Right basilic vein measures 9 mm at the upper humerus, 8 mm at the lower humerus, 6 mm in the upper forearm and 3 mm in the lower forearm, median cubital vein measures 5 mm. Right cephalic vein measures 7 mm at the upper humerus, 8 mm at the lower humerus, 4 mm in the upper forearm and 3 mm in the lower forearm. There is mild elevated peak systolic velocity in the right axillary and radial arteries. There are diffusely monophasic wave forms in the right upper extremity arterial system. Right axillary artery measures 8 mm, brachial artery 6 mm, radial artery 5 mm and ulnar artery 3 mm. Left basilic vein measures 6 mm at the upper humerus, 5 mm at the lower humerus and 2 mm throughout the forearm. Median cubital vein measures 3 mm. Left cephalic vein measures 4 mm throughout the humerus level and is occluded in the forearm. Normal flow velocity and triphasic wave forms are seen of the left upper extremity arterial system. Left axillary and brachial artery both measure 6 mm in the ulnar and radial arteries measure 3 mm. Findings are similar to prior study of 03/06/2019. Electronically Signed by Last Lin MD 09/18/2019 10:13 A A&P: 1. Right upper extremity Mor AVF. Patient is reviewed by Dr. Ybarra. Regular dialysis schedule is Wednesday//Wednesday. Fistula has remained chronically challenging for access and flows. Tentative plan is possibly to consider PermCath placement left chest in the OR for dialysis access. The patient recently had vein mapping 09/15/19 in preparation for other possible options for fistula creation and dialysis access. Will review further. Currently the pt is on Ventilator in ICU secondary to acute on chronic respiratory failure and requiring Levophed related to hypotension. Closely monitor. Vital Signs/I&O Vital Signs Date Time Temp Pulse Resp B/P (MAP) Pulse Ox O2 Delivery O2 Flow Rate FiO2 10/02/19 13:00 116/62 10/02/19 10:45 63 16 91 Ventilator 40 10/02/19 08:00 98.4 10/02/19 05:56 40.0 I&O- Last 24 Hours up to 6 AM 10/02/19 06:00 Intake Total 0 ml Output Total 0 ml Balance 0 ml Laboratory Data Labs 24H Laboratory Tests 2 10/01/19 14:35: Nucleated Red Blood Cells % (auto) 0.0, Anion Gap 9, Glomerular Filtration Rate 7.8L, Calcium Level 8.0L, Magnesium Level 1.9, Total Bilirubin 0.7, Aspartate Amino Transf (AST/SGOT) 25, Alanine Aminotransferase (ALT/SGPT) 58, Alkaline Phosphatase 110, Total Creatine Kinase 59, Creatine Kinase MB 1.6, Creatine Kinase MB Relative Index 2.71, Troponin I < 0.02, Total Protein 7.7, Albumin 3.5, Albumin/Globulin Ratio 0.83L 10/01/19 14:36: Lactic Acid Level 1.6, Ammonia 42H 10/01/19 17:37: Bedside Glucose (Misc Panel) 128H 10/01/19 19:55: Bedside Glucose (Misc Panel) 120H 10/01/19 20:04: Nucleated Red Blood Cells % (auto) 0.0, Anion Gap 10, Glomerular Filtration Rate 7.3L, Calcium Level 8.6, Magnesium Level 2.0 10/02/19 00:19: Bedside Glucose (Misc Panel) 113H 10/02/19 01:07: Blood Gas Bicarbonate Standard 19.8L, Arterial Blood pH 7.148*L, Arterial Blood Partial Pressure CO2 74.6*H, Arterial Blood Partial Pressure O2 31.9*L, Arterial Blood Total CO2 27.6, Arterial Blood HCO3 25.3, Arterial Blood Base Excess - 4.6L, Arterial Blood Oxygen Saturation 49.1L 10/02/19 01:20: Nucleated Red Blood Cells % (auto) 0.0, Anion Gap 8, Glomerular Filtration Rate 7.2L, Calcium Level 8.2L, Magnesium Level 1.9, Immature Granulocyte % (Auto) 0.5, Neutrophils (%) (Auto) 76.1H, Lymphocytes (%) (Auto) 13.5L, Monocytes (%) (Auto) 7.8H, Eosinophils (%) (Auto) 1.7, Basophils (%) (Auto) 0.4, Neutrophils # (Auto) 10.6H, Lymphocytes # (Auto) 1.9, Monocytes # (Auto) 1.1H, Eosinophils # (Auto) 0.2, Basophils # (Auto) 0.1, Lactic Acid Level 1.3, Troponin I < 0.02 10/02/19 03:55: Blood Gas Bicarbonate Standard 23.6, Arterial Blood pH 7.341L, Arterial Blood Partial Pressure CO2 47.4H, Arterial Blood Partial Pressure O2 113.4H, Arterial Blood Total CO2 26.5, Arterial Blood HCO3 25.1, Arterial Blood Base Excess -1.0, Arterial Blood Oxygen Saturation 98.2 10/02/19 05:40: Nucleated Red Blood Cells % (auto) 0.0, Anion Gap 11, Glomerular Filtration Rate 7.2L, Calcium Level 8.2L, Magnesium Level 1.8 10/02/19 12:34: Bedside Glucose (Misc Panel) 97 CBC/BMP Laboratory Tests 10/01/19 14:35 10/01/19 20:04 10/02/19 01:20 10/02/19 05:40 Microbiology Microbiology 10/02/19 Blood Culture, Received Pending 10/02/19 Blood Culture, Received Pending 10/01/19 Blood Culture, Received Pending 09/30/19 Blood Culture - Preliminary, Resulted No Growth after 48 hours. All Specime... 09/30/19 Respiratory Virus Panel (PCR) (JONG) - Final, Complete 09/30/19 Blood Culture - Preliminary, Resulted No Growth after 48 hours. All Specime... Allergies Coded Allergies: moxifloxacin (Verified Allergy, Intermediate, RASH, 07/05/19) codeine (Verified Allergy, Unknown, 09/30/19) valsartan (Verified Allergy, Unknown, 09/30/19) Home Medications Scheduled Amiodarone Hcl (Pacerone) 200 Mg Tab, 200 MG PO DAILY, (Reported) TAKES AT 1200 Carvedilol (Coreg) 6.25 Mg Tab, 6.25 MG PO BID, (Reported) TAKES AT 1200 AND 2000 Docusate Sodium (Colace) 100 Mg Capsule, 200 MG PO DAILY, (Reported) TAKES AT 1100 Ergocalciferol (Vitamin D2) (Drisdol) 50,000 Unit Cap, 50,000 UNIT PO 1XWK, (Reported) WEDNESDAY AT 1100 Escitalopram Oxalate (Escitalopram Oxalate) 10 Mg Tablet, 10 MG PO DAILY, (Reported) 1200 Ferric Citrate (Auryxia) 210 Mg Tablet, 630 MG PO WM, (Reported) TAKES AT 0600, 1200, AND 1700 ON WEDNESDAY, WEDNESDAY AND WEDNESDAY (DIALYSIS DAYS) AND TAKES AT 0800, 1130, AND 1630 ON WEDNESDAY, WEDNESDAY, WEDNESDAY AND WEDNESDAY. Gabapentin (Gabapentin) 300 Mg Capsule, 300 MG PO TID, (Reported) 1200, 1600, 2000 Ipratropium/Albuterol Sulfate (Iprat-Albut 0.5-3(2.5) mg/3 ml) 1 Maria G Maria G, 1 MARIA G INH BID, (Reported) TAKES AT 0500 AND 1700 ON WEDNESDAY, WEDNESDAY AND WEDNESDAY (DIALYSIS DAYS) AND TAKES AT 0800 AND 2000 ON WEDNESDAY, WEDNESDAY, WEDNESDAY AND WEDNESDAY. Patiromer Calcium Sorbitex (Veltassa) 8.4 Gm Powd.pack, 8.4 GM PO 1XWK, (Reported) WEDNESDAY Pramipexole Di-HCl (Mirapex) 0.125 Mg Tablet, 0.125 MG PO QHS, (Reported) Sennosides/Docusate Sodium (Senna-S Tablet) 1 Tab Tab, 2 TAB PO BID, (Reported) Sevelamer Carbonate (Renvela) 800 Mg Tab, 4,800 MG PO TID, (Reported) TAKES AT 0800, 1200, AND 1700 ON NON-DIALYSIS DAYS (WED, WED, WED, AND WED). TAKES AT 0500, 1200, 1700 ON , , SAT Vit B Comp No.3/Folic/C/Biotin (Nephro-Shante Rx Tablet) 1 Tab Tab, 1 TAB PO DAILY, (Reported) TAKES AT 1200 Scheduled PRN Acetaminophen (Acetaminophen) 325 Mg Tab, 650 MG PO Q4H PRN for PAIN / FEVER, (Reported) Albuterol Sulf (Albuterol Sulfate) 2.5 Mg/3 Ml Nebu, 2.5 MG INH Q2H PRN for COPD, (Reported) Albuterol Sulfate (Proventil Hfa) 6.7 Gm Hfa.aer.ad, 2 PUFF INH Q4H PRN for SOB/WHEEZING, (Reported) Alprazolam (Alprazolam) 1 Mg Tablet, 1 MG PO Q6H PRN for ANXIETY, (Reported) Bisacodyl (Dulcolax) 10 Mg Supp.rect, [address] DAILY PRN for CONSTIPATION, (Repo rted) Guaifenesin/Dextromethorphan (Guaifenesin Dm Syrup) 5 Ml Syrup, 10 ML PO Q4H PRN for COUGH/SECRETIONS, (Reported) Oxycodone HCl (Oxycodone HCl) 5 Mg Tablet, 5 MG PO 3XW PRN for PAIN, (Reported) AT 0500 ON , , SAT. Oxycodone HCl/Acetaminophen (Oxycodone-Acetaminophen 5-325) 1 Each Tablet, 2 TAB PO 3XW PRN for PAIN, (Reported) GIVE AT 0500 BEFORE DIALYSIS Oxycodone HCl/Acetaminophen (Oxycodone-Acetaminophen 5-325) 1 Each Tablet, 1 TAB PO Q6H PRN for PAIN, (Reported) Phenyleph/Shark Oil/Mo/Petrol (Preparation H Ointment) 28 Gm Oint.appl, [address] BID PRN for HEMORRHOIDS, (Reported) Sodium Phosphate,[place]-Dibasic (Enema) 133 Ml Enema, [address] DAILY PRN for CONSTIPATION, (Reported) Sarahi Durant Oct 02, 2019 13:50
--- NOTE | 2019-10-02 14:06 | IPNPDOC ---
Text Note Date of Service The patient was seen on 10/02/19. NOTE Subjective: Rapid response was called at 1210 bc the patient was found altered and had dislodged his inner cannula. He was brought to the intensive care unit (ICU) where he was placed on mechanical ventilation, central line was placed for profound hypotension, vasopressors started. Objective: General: Patient awake, alert, morbidly obese male HEENT: PERRLA, EOMI, tracheostomy collar and trache in place Cardiac: S1-S2 Abdomen: Morbidly obese, soft, nontender, nondistended. Extremities: No cyanosis, no swelling Neurologic: Nonfocal, moves all extremities, no nuchal rigidity Skin: No rashes, jaundice or bruising Patient is 49 years old male with past medical history of morbid obesity, hyperventilation syndrome, chronic hypercapnic respiratory failure status post tracheostomy, end-stage renal diseases presented hospital with acute on chronic respiratory failure. Today after dialysis patient developed acute hypoxemic hypercapnic respiratory failure with mental confusion. Patient was found to have pH 7.1, CO2 75, O2 43. Also patient stated that he has been having chills. In emergency room patient was found to have no leukocytosis, he is afebrile, he was placed on the BiPAP with his home settings. Sepsis No obvious source of infection On 10/02/19 patient developed hypotension with leukocytosis Vasopressors started Pro calcitonin 1.7 Ceftaroline IV, meropenem IV IV fluid Await repeated blood culture Hyperkalemia Resolved V. tach Resolved Most likely secondary to infection and fever superimposed with electrolytes imbalance and acute on chronic respiratory failure with severe pulmonary hypertension Due to hypotension carvedilol was discontinued Continue amiodarone by mouth Acute and chronic respiratory failure with hypercapnia On ventilator. No Doppler venous ultrasound evidence of DVT in the bilateral lower extremities. However patient had chronic pulmonary embolism with history of chronic DVTs Dr. Lopez customs guard recommended Eliquis 2.5 mg twice a day empirically Respiratory panel negative Most likely patient will need ventilator on discharge (ESRD (end stage renal disease) on dialysis Dr. Curtis follows him Metabolic encephalopathy Resolved Secondary to acute hypoxemic Hypercapnic respiratory failure Continue ventilator Continue to monitor ABG Atrial fibrillation Patient was not on the anticoagulation due to perinephric bleeding when the patient was placed on warfarin for atrial fibrillation per Dr. Kimball Due to high risk of DVT and PE we started Eliquis Morbid obesity Morbid obesity. Pickwickian syndrome with obesity hypoventilation syndrome Elizabeth lift at baseline at [facility] chronically. VS,Fishbone, I+O VS, Fishbone, I+O Laboratory Tests 10/01/19 14:35 10/01/19 20:04 10/02/19 01:20 10/02/19 05:40 Vital Signs Date Time Temp Pulse Resp B/P (MAP) Pulse Ox O2 Delivery O2 Flow Rate FiO2 10/02/19 13:00 116/62 10/02/19 10:45 63 16 91 Ventilator 40 10/02/19 08:00 98.4 10/02/19 05:56 40.0 I&O- Last 24 Hours up to 6 AM 10/02/19 06:00 Intake Total 0 ml Output Total 0 ml Balance 0 ml SANTY DUGAN DO Oct 02, 2019 14:06
[2019-10-02] MEDS ORDERED: SLF 3 ML SYR IV PRN (14:30)
[2019-10-02] MEDS ORDERED: SODIUM CHLORIDE 0.9% INJ 10 ML SYR IV PRN (14:30)
[2019-10-02] MEDS ORDERED: VANCOMYCIN HCL 1,000 MG, VIAL MATE ADAPTER 1 EACH in D5W 250 ML IV SCH (15:30)
[2019-10-02] MEDS ORDERED: **VANCO AFTER HD** MISC XX SCH (16:00)
[2019-10-02] MEDS: MEROPENEM INJ 500 MG in IV 1 EA IV SCH (17:55)
[2019-10-02] MEDS: ALPRAZolam 0.5 MG TAB PO PRN (17:55)
--- NOTE | 2019-10-02 18:35 | IPNPDOC ---
Date Seen The patient was seen on 10/02/19. Progress Note Pt seen and examined. Difficulty with cannulation RUE radial cephalic AVF. Our plan was for a LIJ permcath and proximalization of his RUE AVF due to aneurysmal degeneration and difficulty with cannulation, but we were waiting on vein mapping confirmation that this would be a good option--his LIJ is patent on duplex. The patient was subsequently admitted for respiratory issues, and had a cardiopulmonary event last night, but is now improved and is off vasopressors. He was not able to be dialyzed today, but needs dialysis. At this point, he is very high risk for any procedures. When I did his last permcath, he had multiple issues with desaturation, and poor tolerance of the procedure. It is a very challenging catheter placement because of his massive obesity, with difficulty transversing from the expanse of his left neck to the right atrium, but we did eventually place the permcath successfully last time and will hopefully be successful again. We will not do the fistula revision tomorrow as the patient is still a bit unstable and we dont want to add any unnecessary operative time r ight now. I am worried about his ability to tolerate the procedure and what options we may have if we cannot place the permcath. We will see how he does tomorrow. NPO after midnight. He is an add on case so it may not go until later in the afternoon. VS, I&O, 24H, Fishbone Vital Signs/I&O Vital Signs Date Time Temp Pulse Resp B/P (MAP) Pulse Ox O2 Delivery O2 Flow Rate FiO2 10/02/19 17:55 18 Ventilator 10/02/19 16:00 98.5 76 111/51 (80) 96 40 116/57 (80) 10/02/19 05:56 40.0 I&O- Last 24 Hours up to 6 AM 10/02/19 06:00 Intake Total 0 ml Output Total 0 ml Balance 0 ml Laboratory Data 24H LABS Laboratory Tests 2 10/01/19 19:55: Bedside Glucose (Misc Panel) 120H 10/01/19 20:04: Nucleated Red Blood Cells % (auto) 0.0, Anion Gap 10, Glomerular Filtration Rate 7.3L, Calcium Level 8.6, Magnesium Level 2.0 10/02/19 00:19: Bedside Glucose (Misc Panel) 113H 10/02/19 01:07: Blood Gas Bicarbonate Standard 19.8L, Arterial Blood pH 7.148*L, Arterial Blood Partial Pressure CO2 74.6*H, Arterial Blood Partial Pressure O2 31.9*L, Arterial Blood Total CO2 27.6, Arterial Blood HCO3 25.3, Arterial Blood Base Excess - 4.6L, Arterial Blood Oxygen Saturation 49.1L 10/02/19 01:20: Immature Granulocyte % (Auto) 0.5, Neutrophils (%) (Auto) 76.1H, Lymphocytes (%) (Auto) 13.5L, Monocytes (%) (Auto) 7.8H, Eosinophils (%) (Auto) 1.7, Basophils (%) (Auto) 0.4, Neutrophils # (Auto) 10.6H, Lymphocytes # (Auto) 1.9, Monocytes # (Auto) 1.1H, Eosinophils # (Auto) 0.2, Basophils # (Auto) 0.1, Nucleated Red Blood Cells % (auto) 0.0, Anion Gap 8, Glomerular Filtration Rate 7.2L, Lactic Acid Level 1.3, Calcium Level 8.2L, Magnesium Level 1.9, Troponin I < 0.02 10/02/19 03:55: Blood Gas Bicarbonate Standard 23.6, Arterial Blood pH 7.341L, Arterial Blood Partial Pressure CO2 47.4H, Arterial Blood Partial Pressure O2 113.4H, Arterial Blood Total CO2 26.5, Arterial Blood HCO3 25.1, Arterial Blood Base Excess -1.0, Arterial Blood Oxygen Saturation 98.2 10/02/19 05:40: Nucleated Red Blood Cells % (auto) 0.0, Anion Gap 11, Glomerular Filtration Rate 7.2L, Calcium Level 8.2L, Magnesium Level 1.8 10/02/19 12:34: Bedside Glucose (Misc Panel) 97 10/02/19 17:57: Bedside Glucose (Misc Panel) 97 CBC/BMP Laboratory Tests 10/01/19 20:04 10/02/19 01:20 10/02/19 05:40 Microbiology Microbiology 10/02/19 Blood Culture, Received Pending 10/02/19 Blood Culture, Received Pending 10/01/19 Blood Culture - Preliminary, Resulted No growth after 24 hours . All specim... 09/30/19 Blood Culture - Preliminary, Resulted No Growth after 48 hours. All Specime... 09/30/19 Respiratory Virus Panel (PCR) (JONG) - Final, Complete 09/30/19 Blood Culture - Preliminary, Resulted No Growth after 48 hours. All Specime... PRIYANKA CUMMINS MD Oct 02, 2019 18:35
--- NOTE | 2019-10-02 18:57 | IPN ---
DATE: 10/02/2019 Mr. Richard is seen this morning on his bedside in the intensive care unit. He was transferred to intensive care unit due to hypotension and has been on pressors. He remains on the ventilator. We tried to dialyze him this morning. However, nursing staff could not get his right arm arteriovenous (AV) fistula to work and dialysis has not been successful. Yesterday, he developed hyperkalemia which was treated medically and potassium level has corrected. PHYSICAL EXAMINATION: Temperature is 98.5 degrees Fahrenheit, heart rate 68 per minute and respiratory rate 18 per minute. Blood pressure about 92/45 mmHg and oxygen saturation 94% on the ventilator. His head is atraumatic. Neck is obese and tracheostomy is in place. Jugular venous distention (JVD) difficult to be assessed. Heart sounds are distant. Lungs have bilateral air entry. Abdomen is obese and nontender. Bowel sounds are present. Extremities without any cyanosis or clubbing. 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 His AV fistula does not seem to be functioning very well. LABORATORY DATA: Today's laboratories show WBC count 14.9, hemoglobin 11.4 and hematocrit 36.5. Platelets 126. Sodium 135, potassium 4.9, CO2 25, BUN 65 and creatinine 8.49. Glucose 120 and calcium 8.2. Magnesium level is 1.8. PROBLEMS: 1. End-stage renal disease. The patient is regularly dialyzed on Wednesday, and Wednesday schedule. He was dialyzed Wednesday prior to admission. We tried to dialyze him today due to hyperkalemia yesterday. However, his arteriovenous (AV) fistula has not worked and there is no other way to get temporary access. We will consult vascular surgery for a Perma-Cath or revision of his AV fistula. At this point, we will hold off on dialysis today. Once a functioning dialysis access becomes available then we can dialyze him. 2. Hyperkalemia. He did have hyperkalemia yesterday which corrected with medical treatment. At this point, no urgent intervention is indicated. 3. Septic shock. The patient has been on Levophed and blood pressure is slightly improved. He remains on antibiotics also pending cultures. Hospitalist service has started ceftaroline and meropenem which are appropriate. 4. Respiratory failure. This is chronic a issue and he has a chronic tracheostomy. He is on the ventilator.
[2019-10-02] MEDS: PRAMIPEXOLE (MIRAPEX) 0.125 MG TAB PO SCH (20:37)
[2019-10-02] MEDS: ACETAMINOPHEN TAB 650MG DOSE (2X325MG) PO PRN (20:50)
[2019-10-02] MEDS: guaiFENesin DM LIQ 10ML UD PO PRN (20:50)
[2019-10-02] MEDS: SODIUM CHLORIDE 0.9% INJ 10 ML SYR IV SCH (22:11)
[2019-10-02] MEDS: SLF 3 ML SYR IV SCH (22:11)
[2019-10-03] VITALS (37 sets, daily range): BP systolic 68–118; BP diastolic 40–66; O2SAT 93–95
[2019-10-03] MEDS: ALPRAZolam 0.5 MG TAB PO PRN ×3 (00:22→21:16)
[2019-10-03] MEDS: PERCOCET 5MG/325MG TAB PO PRN ×3 (00:23→21:18)
[2019-10-03] MEDS: NOREPINEPHRINE BITARTRATE 8 MG in D5W 500 ML IV SCH (00:53)
[2019-10-03] MEDS: NOREPINEPHRINE BITARTRATE 8 MG in D5W 492 ML IV SCH ×2 (01:42→20:00)
[2019-10-03] MEDS: SLF 3 ML SYR IV SCH ×3 (05:36→21:58)
[2019-10-03] MEDS: SODIUM CHLORIDE 0.9% INJ 10 ML SYR IV SCH ×3 (05:37→21:58)
[2019-10-03 05:59] LABS: BASO % 0.3 % (0.0-1.0); EOS # 0.2 10^3/uL (0.0-0.5); EOS % 1.4 % (0.0-3.0); HEMATOCRIT 31.6 % (42.0-52.0); HEMOGLOBIN 10.3 g/dl (13.5-17.5); LYMPH # 2.4 10^3/uL (1.5-5.0); LYMPH % 18.3 % (24.0-44.0); MEAN CORPUSCULAR HEMOGLOBIN 33.9 pg (27.0-33.0); MEAN CORPUSCULAR HGB CONC 32.6 g/dl (32.0-36.5); MEAN CORPUSCULAR VOLUME 103.9 fl (80.0-96.0); MONO # 0.9 10^3/uL (0.0-0.8); MONO % 7.2 % (0.0-5.0); NEUTROPHILS # 9.4 10^3/uL (1.5-8.5); NEUTROPHILS % 72.5 % (36.0-66.0); PLATELET COUNT, AUTOMATED 117 10^3/uL (150-450); RED BLOOD COUNT 3.04 10^6/uL (4.30-6.10)
[2019-10-03] MEDS ORDERED: ceFAZolin SOD 3 GM in IV 1 EA IV ONE (06:00)
[2019-10-03] MEDS ORDERED: ceFAZolin SOD 2 GM in IV 1 EA IV ONE (06:00)
[2019-10-03] MEDS ORDERED: ceFAZolin SOD 1 GM in D5W MINI-BAG PLUS 50 ML IV ONE (06:00)
[2019-10-03 06:20] LABS: CALCIUM LEVEL 7.8 MG/DL (8.5-10.1); CREATININE FOR GFR 10.1 MG/DL (0.70-1.30); GLOMERULAR FILTRATION RATE 5.9 (>60); POTASSIUM SERUM 5.3 MEQ/L (3.5-5.1)
[2019-10-03] MEDS: IPRATROPIUM 0.5MG/ALBUTEROL 2.5MG INH SOL UD 3ML (DUONEB)(J7620) INH SCH ×2 (07:58→19:40)
[2019-10-03] MEDS: (RENVELA) SEVELAMER **CARBONate** 800 MG TAB PO SCH ×3 (08:00→18:00)
[2019-10-03] MEDS: CEFTAROLINE FOSAMIL 200 MG in D5W 50 ML IV SCH ×2 (08:15→20:00)
[2019-10-03] MEDS: DOCUSATE SODIUM 100 MG CAP PO SCH (09:00)
[2019-10-03] MEDS: APIXABAN 2.5 MG TAB (ELIQUIS) PO SCH ×2 (09:00→21:00)
[2019-10-03] MEDS: SENOKOT S TAB PO SCH ×2 (09:00→21:16)
--- NOTE | 2019-10-03 10:23 | IPN ---
DATE: 10/03/2019 SUBJECTIVE: Mr. Richard was seen and examined this morning. He currently no complaints. There have been no adverse events noted overnight. The patient did have a slight increase in his temperature with a T-max of 102.2. The patient was planned to receive hemodialysis yesterday, however he no longer had dialysis catheter access through his fistula. He is planning on being taken by Dr. Ybarra for placement of a PermaCath in his internal jugular vein. OBJECTIVE: VITAL SIGNS: Temperature 98.2, pulse 71, respiratory rate 16, blood pressure 104/57, pulse oximetry 90% on the ventilator, FiO2 of 40%. GENERAL: Patient is awake, alert. He is oriented. He does not appear in acute distress. He is morbidly obese, lying in bed. He has a tracheostomy tube in place. HEENT: Atraumatic, normocephalic. His eyes are nonicteric. His trachea is midline. He has a tracheostomy tube currently attached to the ventilator. He has a very patel neck. LYMPHATICS: No appreciable cervical, axillary or supraclavicular lymphadenopathy. CARDIOVASCULAR: Normal S1, S2. There is a regular rate and rhythm. There is no clicks, rubs or murmurs auscultated. PULMONARY: The patient has slightly rhonchorous breath sounds, slightly diminished throughout. There is no wheezing. There is no rales. He is chronically on the ventilator with tracheostomy tube. ABDOMINAL: Morbidly obese, soft, nontender. Normal active bowel sounds throughout. EXTREMITIES: No edema in the bilateral lower extremities. There are 2+ posterior, tibial and radial pulses bilaterally. The patient has areas of ecchymosis on his arms where his IV sites are, likely secondary to use of Eliquis. NEUROLOGICAL: No focal neurological deficits. PSYCHIATRIC: Mood and affect appear appropriate for situation. LABORATORY DATA: Hematology: White blood cells 13.0, hemoglobin 10.3, hematocrit 31.6, platelet count 117. Chemistries: Sodium 134, potassium 5.3, chloride 198, carbon dioxide 27, BUN 79, creatinine 10.10, fasting glucose 94, calcium 7.8. Procalcitonin 1.71. Microbiology: Blood cultures negative. Sputum culture pending. ASSESSMENT/PLAN: 1. Acute on chronic respiratory failure. The patient was previously on Trilogy. He has been switched to a mechanical ventilator and appears to be doing well. Will likely need this on discharge rather than his Trilogy. 2. Hypotension. The patient originally was transferred to the ICU due to hypotension. He is currently off of any pressors. He had been started on metoprolol before his episode of hypotension which is likely the contributing factor. He is currently only on amiodarone for chronic medications. Would suggest not starting the patient back up on metoprolol. 3. Wide complex tachycardia. The patient has been seen and evaluated by cardiology. He been with a regular rate and rhythm. He is currently on amiodarone 200 mg by mouth and will continue. 4. Leukocytosis and fever. The patient has leukocytosis and fever. He is currently on ceftaroline and meropenem, I will continue. His blood cultures have been negative. He has a sputum culture which is currently pending. 5. End stage renal disease on hemodialysis. The patient has a history of chronic end stage renal disease and received hemodialysis. Unfortunately, his fistula is nonfunctioning. He is planned to be seen by Dr. Ybarra for a PermaCath placement today for subsequent hemodialysis. 6. Hyperkalemia. The patient was hyperkalemic likely secondary to his end stage renal disease. He was unable to receive hemodialysis yesterday. He has received Kayexalate and was corrected. Will continue to follow. 7. Morbid obesity. This likely contributes to his chronic respiratory failure. The patient is currently on mechanical ventilator. 8. Deep vein thrombosis (DVT) prophylaxis. The patient is chronically anticoagulated with Eliquis. I, Sunday Estrada, agree with the above as outlined by the resident after an independent history and physical MTDD
[2019-10-03] MEDS ORDERED: HEPARIN 1,000 UNITS/ML 10ML VIAL (FOR RADIOLOGY& DIALYSIS ONLY) IV ONE (12:00)
[2019-10-03] MEDS ORDERED: HEPARIN 1,000 UNITS/ML 10ML VIAL (FOR RADIOLOGY& DIALYSIS ONLY) XX ONE (12:00)
[2019-10-03] MEDS ORDERED: LIDOCAINE 2% INJ 100 MG/5 ML SDV (FOR ANES.) As Ordered ONE (12:37)
[2019-10-03] MEDS ORDERED: PROPOFOL 200 MG/20 ML VIAL As Ordered ONE (12:37)
[2019-10-03] MEDS ORDERED: fentaNYL 100 MCG/2 ML INJECTION (J3010) As Ordered ONE (12:39)
[2019-10-03] MEDS ORDERED: LIDOCAINE 1% SDV INJ 30 ML VIAL As Ordered ONE (12:41)
[2019-10-03] MEDS ORDERED: HEPARIN SOD (PORCINE) 5000 UNITS/ML VIAL As Ordered ONE (12:41)
[2019-10-03] MEDS ORDERED: LIDOCAINE 2% W/EPIN INJ 20ML **PRES FREE As Ordered ONE (13:04)
[2019-10-03] MEDS ORDERED: ceFAZolin 2 GM/D5W 50 ML IV BAG (J0690 PER 500MG) As Ordered ONE (13:05)
[2019-10-03] MEDS ORDERED: ROCURONIUM BROMIDE 50 MG/5 ML VIAL As Ordered ONE (13:26)
[2019-10-03] MEDS ORDERED: PHENYLEPHRINE INJ 10MG/ML VIAL (J2370) As Ordered ONE ×2 (13:37→13:38)
[2019-10-03] MEDS ORDERED: SUGAMMADEX SODIUM 500 MG/5 ML VIAL (BRIDION) As Ordered ONE (13:51)
--- NOTE | 2019-10-03 15:10 | ROOPDOC ---
[facility] Report Of Operation Report of Operation DATE OF PROCEDURE: 10/03/19 PREPROCEDURE DIAGNOSES: 1. End-stage renal disease requiring access for dialysis. POSTPROCEDURE DIAGNOSES: 1. Same PROCEDURE: 1. Ultrasound-guided access left internal jugular vein 2. Placement of a 36 cm tunneled PermCath SURGEON: Priyanka Ybarra MD ANESTHESIA: Local anesthesia 16 mL 2% lidocaine with epi. General anesthesia. INDICATION FOR PROCEDURE: Mr. Richard is a 49-year-old gentleman with extreme morbid obesity, extensive cardiopulmonary comorbidities status post chronic tracheostomy, and end-stage renal disease who was unable to be accessed for dialysis yesterday using his right upper extremity Mor fistula. Our plan when we saw the patient outpatient [address] to [address] a PermCath and revises fistula by ligating the Mor fistula which has significant aneurysmal degeneration and difficult he was cannulation, and proximalize the fistula to the brachial artery creating a brachiocephalic AV fistula. The cephalic vein is already quite large over the bicep and maturation should be relatively rapid. The patient was admitted to the hospital with respiratory insufficiency prior to scheduling procedure, and now requires more urgent access for dialysis. He is extremely high risk for any surgical procedure, and a technically very difficult left IJ PermCath placement. 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 We discussed the risks benefits and alternatives to PermCath placement and the patient is agreeable to proceed. Informed consent was obtained. INTERPRETATION: The PermCath is in good position with no kinks in the catheter. The tip was freely mobile at the SVC right atrial junction. There is no pneumothorax. REPORT OF OPERATION: Mr. Richard was brought to the operating room in relatively stable condition and placed supine on the OR table. General anesthesia and antibiotics were administered without complication. After an extensive amount of time to position the patient due to extreme morbid obesity, his left neck and chest were prepped and draped in a sterile fashion. A timeout was performed. Local anesthesia was administered to the skin and subcutaneous tissue over the left chest, up over the clavicle to the left neck, and over the jugular access site. A microneedle was used to access the jugular vein under ultrasound guidance. A wire was passed through this access into the central system under fluoroscopic guidance. An incision was made at the access site with the skin knife and a micro-sheath was placed over the wire using the Seldinger technique. Through this catheter, we advanced a superstiff Amplatz wire into the central system under fluoroscopic guidance. We then performed 2 serial dilations over the wire using a Seldinger technique and placed a peel-away sheath over the wire. We then tunneled the catheter from the left chest to the jugular access site until the cough was within the subcutaneous tissue. Unfortunately, the peel-away sheaths are extremely short and do not traverse over to the right side of the chest or the SVC. The catheter does not track well through the central veins without sheath guidance, so to overcome this we planned to place the catheter over the wire using a Seldinger technique. This does Amplatz wire helps to straighten out the angles from the left jugular to the right atrium, but it is still difficult to track the catheter over the wire. Nevertheless, with her last PermCath placement, this was the only way we could advance the catheter to the left chest. We knew it would be difficult, but we decided to do this procedure in a similar fashion. The inner cannula of the peel-away sheath was removed, and with the wire in the sheath we do not have diaphragm control bleeding. We attempted to manually minimize blood loss from the sheath while we advanced the end of the wire through the tip of the catheter and then advanced the catheter over the wire into the peel-away sheath. We then spent about 20 minutes trying to advance the catheter over the wire but it would not traverse from the jugular into the central veins. Eventually, I felt a bit concerned we were not going to be able to advance the catheter. I frequently flushed the other port on the catheter with heparinized saline to try and help minimize friction over the wire. I removed the peel-away sheath to see if this would help us with mobility over the wire, and eventually we were able to dance the catheter into the central system. The wire was then removed, and final imaging confirmed the catheter to be in good position with no kinks in the catheter and the tip freely mobile in the right atrium SVC junction. There is no pneumothorax. Both ports alfredo back and flushed easily and were locked with heparinized saline and appropriate caps were placed. 4-0 Vicryl suture was used and interrupted deep fashion at the jugular access site and then superficial dermal interrupted Vicryl sutures were placed to close the skin. Dermabond was placed over the skin. A deep interrupted Vicryl suture was placed at the catheter exit site on the left chest and then a nylon suture was placed at the skin to close the skin at the catheter exit site. We then secured the catheter to the chest wall with 2 additional nylon sutures. Sterile dressings were applied. The patient was allowed to awaken from anesthesia and was taken to recovery in stable condition. He will return to the ICU for dialysis. ESTIMATED BLOOD LOSS: Approximately 150 mL. COMPLICATIONS: None. PLAN: It is okay to use the left IJ PermCath for dialysis. Extra care should be taken to keep the catheter clean and free from infection as this is an extremely difficult catheter placement. The patient does not have a lot of other options for temporary dialysis access if this should become infected or fail. Keep head of bed elevated greater than 30 for 24 hours post procedure to diminish chance of bleeding around the catheter exit site. PRIYANKA YBARRA MD Oct 03, 2019 15:10
--- NOTE | 2019-10-03 15:17 | IPNPDOC ---
Text Note Date of Service The patient was seen on 10/03/19. NOTE Interim events: -Transient shock, presumed septic with pulmonary source given ongoing acute on chronic hypercarbic hypoxemic respiratory failure, required pressors in the ICU for ~24h, however was in the setting of coreg and amio for NSVT. -Being maintained on ceftaroline/deirdre with history of pseudomonas colonization that is sensitive to pip/tazo and Non MRSA, non MSSA staph with no sputum this admission -Blood cultures thus far negative -ESRD with compromised access -->going for recanalization today -Off trilogy on vent with pulmonology onboard Subjective: -No complaints this morning Objective: General: Patient awake, alert, morbidly obese man HEENT: PERRLA, EOMI, laying in bed with trach connected to vent Cardiac: RRR, no murmurs Pulm: Rhonchorous breath sounds, diminished throughout without hernan wheezing or crackles Abdomen: Morbidly obese, soft, nontender, nondistended, normoactive sounds Extremities: No cyanosis, no swelling, no LE edema, WWP Neurologic: Nonfocal, moves all extremities, no facial droops, AOx3 Skin: No rashes, jaundice with occasional ecchymoses. Labs: Reviewed. WBC 13 Hgb 10.3 Hct 31.6 Platelets 117 K 5.3 Cr 10.10 Na 134 Blood cultures negative to date Assessment: Patient is 49 years old man with morbid obesity, hyperventilation syndrome, chronic hypercapnic hypoxemic respiratory failure status post tracheostomy, end-stage renal diseases presented hospital with acute on chronic respiratory failure and AMS and found to be severely hypercarbic requiring escalation from his home trilogy to the [facility], antibiotics for presumed PNA c/b shock and NSVT. Septic shock 2/2 pneumonia: Presumed active infection with thus far negative blood cultures and now pending sputum culture -s/p vasopressors, with shock now resolved -With ongoing leukocytosis and elevated procalcitonin -For now will contrinue Ceftaroline IV until MRSA PCR returns, and will switch meropenem IV to pip/tazo with a history of piptazo sensitive pseudomonas and no ESBL. -follow up blood cultures Acute and chronic respiratory failure with hypercapnia: On ventilator. No DVTs on LE doppler venous ultrasound -Given the history of chronic pulmonary embolism with history of chronic DVTs Dr. Lopez (general teller) recommended him to be started on Eliquis 2.5 mg twice a day empirically that he is now on -Respiratory PCR panel was negative -His respitarory status was not well managed on the trilogy and was transitioned to the [facility] by Dr. Estrada and will most likely need chronic ventilator which will have to be reassessed and discussed when close to discharge. Hyperkalemia: in the setting of renal failure pending HD -monitoring, currently 5.3 and getting new HD access today V. tach: -Resolved -Most likely secondary to infection and fever superimposed with electrolytes imbalance and acute on chronic respiratory failure with severe pulmonary hy pertension -Continue amiodarone PO (ESRD (end stage renal disease) on dialysis -Follows with Dr. Curtis, nephrology on board, getting HD access today Metabolic encephalopathy: Resolved, was secondary to acute hypercapnic hypoxemic respiratory failure -Continue ventilator per pulmonology Atrial fibrillation: Was initially not on anticoagulation due to perinephric bleeding before when he was on warfarin, now started on Eliquis -Due to high risk of DVT and PE we started Eliquis Morbid obesity -Pickwickian syndrome with obesity hypoventilation syndrome -Elizabeth lift at baseline at [facility] Keep Home chronically -Patient is a candidate for bariatric surgery but has poor reserve and likely a poor surgical candidate and would need medical optimization before he would be considered. DVT ppx: on eliquis Diet: NPo except meds VS,Fishbone, I+O VS, Fishbone, I+O Laboratory Tests 10/03/19 05:30 10/03/19 05:34 Vital Signs Date Time Temp Pulse Resp B/P (MAP) Pulse Ox O2 Delivery O2 Flow Rate FiO2 10/03/19 13:06 76 20 123/57 (79) 92 10/03/19 12:00 40 10/03/19 12:00 99.7 Ventilator 10/02/19 05:56 40.0 I&O- Last 24 Hours up to 6 AM 10/03/19 06:00 Intake Total 925.3 ml Output Total 0 ml Balance 925.3 ml ELTON BARAJAS MD Oct 03, 2019 15:17
[2019-10-03] MEDS: ESCITALOPRAM OXALATE 10 MG TAB (LEXAPRO) PO SCH (16:03)
[2019-10-03] MEDS: AMIODARONE 200 MG TAB (PACERONE) PO SCH (16:03)
[2019-10-03] MEDS: OSELTAMIVIR PHOSPHATE 30MG CAPSULE PO SCH (17:41)
[2019-10-03] MEDS: ACETAMINOPHEN TAB 650MG DOSE (2X325MG) PO PRN (17:41)
--- NOTE | 2019-10-03 18:10 | IPN ---
DATE: 10/03/2019 Mr. Richard is seen this morning on his bedside. He is feeling about the same. Nursing staff reports that he was on Levophed again through the night which has been stopped since 05:00 a.m. today. Yesterday, we tried to dialyze him. However, his right arm arteriovenous (AV) fistula did not work and he could not be dialyzed. He is scheduled to have a Perma-Cath placed today. PHYSICAL EXAMINATION: Temperature 98.5 degrees Fahrenheit, heart rate 80 per minute and respiratory rate 16 per minute on the ventilator via tracheostomy. Blood pressure is about 100/60 mmHg now and oxygen saturation 94%. His head is atraumatic. Neck is supple and jugular venous distention (JVD) difficult to be assessed. Tracheostomy is in place. Heart sounds distant, regular. Lungs have good bilateral air entry. Abdomen is obese and nontender. Bowel sounds present. Extremities without any cyanosis or clubbing. Right arm arteriovenous (AV) fistula has very weak thrill and bruit. There is a large aneurysmal dilatation at the wrist area on the right side. Neurologically, he is at about his baseline mentation. LABORATORY DATA: Today's laboratories show WBC count 13.0, hemoglobin 10.3 and hematocrit 31.6. Platelets are 117. Sodium 134, potassium 5.3, CO2 27, BUN 79 and creatinine 10.10. Glucose 94 and calcium 7.8. PROBLEMS: 1. End-stage renal disease. The patient is regularly dialyzed on Wednesday, and Wednesday schedule. He was last dialyzed on Wednesday and is due for dialysis today. We tried to dialyze him yesterday. However, his fistula did not work. We will plan on dialyzing him today after he gets a new Perma-Cath placed. 2. Septic shock. The patient was again on Levophed last night. However, his blood pressure has now improved and he is off Levophed. He remains on antibiotics with negative blood cultures so far. He does have pinkish pulmonary secretions and we are waiting for culture results. 3. Hyperkalemia. He has mild hyperkalemia for which no urgent intervention is indicated. We will wait for dialysis sometime today once he gets the Perma-Cath placed. 4. Anemia. His anemia is stable and does not need any urgent intervention at present. 5. Respiratory failure. The patient has chronic respiratory failure requiring tracheostomy and ventilator. He has severe pulmonary hypertension and obstructive sleep apnea in addition to chronic obstructive pulmonary disease (COPD) and possible chronic embolic phenomenon. Overall, his prognosis remains guarded.
[2019-10-03] MEDS ORDERED: NOREPINEPHRINE 4 MG/4 ML AMP As Ordered ONE (20:16)
[2019-10-03] MEDS: PRAMIPEXOLE (MIRAPEX) 0.125 MG TAB PO SCH (21:16)
[2019-10-03] MEDS: MEROPENEM INJ 500 MG in IV 1 EA IV SCH (21:19)
[2019-10-03] MEDS: guaiFENesin DM LIQ 10ML UD PO PRN (21:54)
[2019-10-04] VITALS (30 sets, daily range): BP systolic 85–118; BP diastolic 47–88; O2SAT 92–95
[2019-10-04] MEDS: ACETAMINOPHEN TAB 650MG DOSE (2X325MG) PO PRN ×4 (00:17→22:08)
[2019-10-04] MEDS: PERCOCET 5MG/325MG TAB PO PRN ×4 (03:21→22:55)
[2019-10-04] MEDS: ALPRAZolam 0.5 MG TAB PO PRN ×4 (03:21→22:54)
[2019-10-04 04:33] LABS: BASO % 0.3 % (0.0-1.0); EOS # 0.2 10^3/uL (0.0-0.5); EOS % 1.6 % (0.0-3.0); HEMATOCRIT 32.1 % (42.0-52.0); HEMOGLOBIN 10.1 g/dl (13.5-17.5); LYMPH # 1.7 10^3/uL (1.5-5.0); MEAN CORPUSCULAR HEMOGLOBIN 33.8 pg (27.0-33.0); MEAN CORPUSCULAR HGB CONC 31.5 g/dl (32.0-36.5); MEAN CORPUSCULAR VOLUME 107.4 fl (80.0-96.0); MONO # 0.7 10^3/uL (0.0-0.8); MONO % 6.5 % (0.0-5.0); NEUTROPHILS # 8.5 10^3/uL (1.5-8.5); NEUTROPHILS % 76.1 % (36.0-66.0); PLATELET COUNT, AUTOMATED 125 10^3/uL (150-450); RED BLOOD COUNT 2.99 10^6/uL (4.30-6.10); WHITE BLOOD COUNT 11.2 10^3/uL (4.0-10.0)
[2019-10-04 05:04] LABS: CALCIUM LEVEL 8.1 MG/DL (8.5-10.1); CREATININE FOR GFR 6.47 MG/DL (0.70-1.30); GLOMERULAR FILTRATION RATE 9.9 (>60); POTASSIUM SERUM 4.2 MEQ/L (3.5-5.1)
[2019-10-04] MEDS: SODIUM CHLORIDE 0.9% INJ 10 ML SYR IV SCH ×3 (06:29→22:07)
[2019-10-04] MEDS: SLF 3 ML SYR IV SCH ×3 (06:29→22:07)
[2019-10-04] MEDS: IPRATROPIUM 0.5MG/ALBUTEROL 2.5MG INH SOL UD 3ML (DUONEB)(J7620) INH SCH ×2 (07:12→20:07)
[2019-10-04] MEDS: PIPERACILLIN/TAZOBACTAM SOD 2.25 GM in D5W MINI-BAG PLUS 50 ML IV SCH ×2 (07:46→20:19)
[2019-10-04] MEDS: (RENVELA) SEVELAMER **CARBONate** 800 MG TAB PO SCH ×3 (08:00→17:24)
[2019-10-04] MEDS ORDERED: PIPERACILLIN/TAZOBACTAM SOD 3.375 GM in D5W MINI-BAG PLUS 50 ML IV SCH (08:00)
--- NOTE | 2019-10-04 08:40 | IPNPDOC ---
Text Note Date of Service The patient was seen on 10/04/19. NOTE Vascular surgery Dr. Ybarra HPI: Mr. Richard is a 49-year-old male with end-stage renal disease on hemodialysis with a right upper extremity Mor fistula that has been chronically challenging for access and flows. The patient was admitted to [facility] 09/30/19 with acute on chronic respiratory failure. Vascular surgery was consulted regarding dialysis access and difficulty accessing right upper extremity fistula for dialysis. The patient is status post left PermCath placement as per Dr. Ybarra 10/03/19. This morning the patient is sitting up in bed. Nodding his head to questions. Denies any pain around his catheter site. Has not had any bleeding. The catheter was used for dialysis 10/03/19. There is currently no bleeding around the catheter site. No tenderness with palpation. No erythema. Dressing is intact. Will continue to monitor. VS,Fishbone, I+O VS, Fishbone, I+O Laboratory Tests 10/04/19 04:21 Vital Signs Date Time Temp Pulse Resp B/P (MAP) Pulse Ox O2 Delivery O2 Flow Rate FiO2 10/04/19 07:12 63 16 95 40 10/04/19 07:12 Ventilator 10/04/19 06:00 95/53 (71) 10/04/19 04:00 98.8 10/02/19 05:56 40.0 I&O- Last 24 Hours up to 6 AM 10/04/19 06:00 Intake Total 857.4 ml Output Total 1650 ml Balance -792.6 ml Sarahi Durant Oct 04, 2019 08:40
[2019-10-04] MEDS: DOCUSATE SODIUM 100 MG CAP PO SCH (09:00)
[2019-10-04] MEDS: SENOKOT S TAB PO SCH ×2 (09:00→20:19)
[2019-10-04 09:26] LABS: ABG BASE EXCESS 2.2 (-2.0-2.0); ABG PARTIAL PRESSURE CO2 55.9 mmHg (35.0-45.0); ABG STANDARD HCO3 26.4 MEQ/L (22.0-26.0); ABG TOTAL CO2 30.7 MEQ/L (22.0-29.0); ABG pH (ARTERIAL) 7.333 UNITS (7.350-7.450)
--- NOTE | 2019-10-04 10:14 | CCN ---
DATE: 10/04/2019 SUBJECTIVE: Mr. Richard is seen and examined this morning. He had received a left sided internal jugular PermaCath yesterday and subsequently received dialysis. There have been no adverse events reported overnight. The patient has remained afebrile. His white blood cell count has been trending down. He currently has no new complaints. The patient's blood pressure has remained on the soft side since yesterday. He is currently off of Levophed as of 2:00 a.m. this morning. OBJECTIVE: VITAL SIGNS: Temperature 98.8, pulse 64, respiratory rate 17, blood pressure 95/53 by NIVP. Pulse oximetry 96% on ventilator with FiO2 of 40%. GENERAL: The patient is awake, alert. He is oriented. He does not appear in acute distress. He is obese, lying in bed. Tracheostomy tube is in place. He is currently eating. HEENT: Atraumatic, normocephalic. The patient's eyes are nonicteric. Trachea is midline. He has a tracheostomy tube currently attached to the ventilator. He has a very patel neck. He has a left tunneled PermaCath placed with minimal oozing. LYMPHATICS: No appreciable cervical, axillary or supraclavicular lymphadenopathy. CARDIOVASCULAR: Normal S1, S2. Regular rate and rhythm, although slightly on the tachycardic side. There are no clicks, rubs, or murmurs auscultated. The patient has central venous access via a left tunneled PermaCath for dialysis, as well as a left femoral line and a left arterial line. There is some oozing at the left femoral line. PULMONARY: The patient has continued rhonchorous breath sounds with diminished breath sounds throughout. There is no wheezing. There are no rales. He is chronically on a ventilator with a tracheostomy tube. ABDOMEN: Morbidly obese. Abdomen is soft, nontender. Normoactive bowel sounds throughout. EXTREMITIES: No edema. The patient has pulses bilaterally. He has a left femoral line and arterial line with oozing at the site. NEUROLOGIC: No focal neurological deficits. PSYCHIATRIC: Mood and affect appear appropriate for situation. LABORATORY DATA: Hematology: White blood cells 11.2, hemoglobin 10.1, hematocrit 32.1, platelet count 125. Chemistries: Sodium 136, potassium 4.2, chloride 98, CO2 of 27, BUN 41, creatinine 6.47, glucose 97, calcium 8.1. Arterial blood gas currently pending. Microbiology: Gram stain and sputum cultures demonstrate many white blood cells and a few gram-positive cocci in pairs, chains and clusters. ASSESSMENT AND PLAN: 1. Acute on chronic respiratory failure. The patient was previously on Trilogy. He has been changed to mechanical ventilator. He will need to be discharged on mechanical ventilator over Trilogy, currently an arterial blood gas is pending. 2. Hypotension. The patient is currently off of pressors. He has not been on Levophed since 2:00 a.m. this morning. His blood pressures remain somewhat on the softer side. He has arterial line, however, this is not functioning and this will be removed today. The patient is currently on amiodarone. He is not on any antihypertensives. 3. Wide complex tachycardia. The patient has been evaluated by cardiology. He remains with a regular rate and rhythm, currently on amiodarone 200 mg by mouth. 4. Leukocytosis. The patient has leukocytosis. His blood cell count is currently 11.2 from 13. He was previously on ceftaroline and meropenem. This has been discontinued. The patient was switched to Zosyn per the primary team. Given his recent gram stain demonstrating gram-positive cocci, Zosyn may not be adequate coverage for possible methicillin resistant Staphylococcus aureus (MRSA). 5. End stage renal disease on hemodialysis. The patient has chronic end stage renal disease and receiving hemodialysis. He had a tunneled PermaCath placed yesterday. He has received dialysis. 6. Hyperkalemia. The patient was hyperkalemic secondary to his end stage renal disease. He has been dialyzed and his hyperkalemia is manageable. 7. Morbid obesity. The patient is morbidly obese, likely attributing to his chronic respiratory failure. He remains on mechanical ventilator. 8. Deep vein thrombosis (DVT) prophylaxis. The patient is currently on Eliquis 2.5 mg twice a day. ADDENDUM: I, Sunday Estrada, conducted an independent history and physical. The patient remains on mechanical ventilation [facility]. Will obtain an arterial blood gas this morning. Would recommend that the patient continues on full mechanical ventilation. He has been tolerating this well and has had significant improvement. Dialysis catheter placed yesterday. Will remove A-line today as it is nonfunctional. His antibiotic regimen was adjusted however, he does have some gram-positive cocci in pairs and clusters. Unclear why the antibiotics were changed to Zosyn. The patient does not have any coverage for Methicillin-resistant Staphylococcus aureus (MRSA) now. I therefore recommend close monitoring for ongoing MRSA infection as this will not be covered with his current antibiotic regimen. I believe the most likely source of recent infection was pulmonary. Chest x-ray is difficult to view lung parenchyma given the severity of his cardiomegaly. He had productive mucus. He has no other signs or sources of infection at this point in time. He is chronically in a skilled nursing and therefore has risk factors for resistant organisms. Addendum dictated: Sunday Estrada DO 10/04/2019 0903 Addendum transcribed: jeffrey 10/04/2019 0918 Edited 10/04/2019 @ 1345 jeffrey ARAGON
[2019-10-04] MEDS: ESCITALOPRAM OXALATE 10 MG TAB (LEXAPRO) PO SCH (11:19)
[2019-10-04] MEDS: APIXABAN 2.5 MG TAB (ELIQUIS) PO SCH ×2 (11:19→20:19)
[2019-10-04] MEDS: AMIODARONE 200 MG TAB (PACERONE) PO SCH (11:19)
--- NOTE | 2019-10-04 14:57 | IPNPDOC ---
Text Note Date of Service The patient was seen on 10/04/19. NOTE Interim events: -had permacath placed and had HD after -MRSA negative, while on ceftaroline/meropenem -Sputum sent, growing GPC is pairs, chains and clusters -remains on vent without acute issues -soft BPs but tends to run borderline low Subjective: -No complaints this morning Objective: Vitals: see below, afebrile, hemodynamically stable off pressors General: Patient awake, alert, morbidly obese man HEENT: PERRLA, EOMI, laying in bed with trach connected to vent Cardiac: RRR, no murmurs Pulm: Transmitted upper airway sounds, diminished throughout without hernan w heezing or crackles Abdomen: Morbidly obese, soft, nontender, nondistended, normoactive sounds Extremities: No cyanosis, no swelling, no LE edema, WWP Neurologic: Nonfocal, moves all extremities, no facial droops, AOx3 Skin: No rashes, jaundice with occasional ecchymoses. Labs: Reviewed. WBC 11.2 Hgb 10.1 Hct 32.1 Platelets 125 K 4.2 Na 136 Blood cultures negative to date Sputum sent --> gram stain showing GPC is pairs, chains and clusters MRSA negative Assessment: Patient is 49 years old man with morbid obesity, hyperventilation syndrome, chronic hypercapnic hypoxemic respiratory failure status post tracheostomy, end- stage renal diseases presented hospital with acute on chronic respiratory failure and AMS and found to be severely hypercarbic requiring escalation from his home trilogy to the vent, antibiotics for presumed PNA c/b shock and NSVT. Septic shock 2/2 pneumonia: Presumed active infection with thus far negative blood cultures and now pending sputum culture -s/p vasopressors, with shock now resolved -With improving leukocytosis and elevated procalcitonin -De-escalate Ceftaroline and meropenem to only pip/tazo with negative MRSA. -Follow up blood cultures -Follow up sputum cultures -To discuss with nephrology the idea of scheduled midodrine pre HD etc so that we can take out the femoral high risk TLC that we continue to need for transient episodes of needing levophed. Acute and chronic respiratory failure with hypercapnia: On ventilator. -No DVTs on LE doppler venous ultrasound -Given the history of chronic pulmonary embolism with history of chronic DVTs Dr. Lopez (phone counselor) recommended him to be started on Eliquis 2.5 mg twice a day empirically that he is now on -Respiratory PCR panel was negative -His respitarory status was not well managed on the trilogy and was transitioned to the [facility] by Dr. Estrada and will most likely need chronic ventilator which will have to be reassessed anddiscussed when close to discharge. -treating PNA per above V. tach: Resolved -Most likely secondary to infection and fever superimposed with electrolytes im balance and acute on chronic respiratory failure with severe pulmonary hypertension -Continue amiodarone PO (ESRD (end stage renal disease) on dialysis -Follows with Dr. Curtis, nephrology on board, had HD yesterday -To discuss midodrine with Dr. Curtis Metabolic encephalopathy: Resolved, was secondary to acute hypercapnic hypoxemic respiratory failure -Continue ventilator per pulmonology Atrial fibrillation: Was initially not on anticoagulation due to perinephric bleeding before when he was on warfarin, now started on Eliquis -Due to high risk of DVT and PE we started Eliquis -on amiodarone Morbid obesity -Pickwickian syndrome with obesity hypoventilation syndrome -Elizabeth lift at baseline at [facility] chronically -Patient is a candidate for bariatric surgery but has poor reserve and likely a poor surgical candidate and would need medical optimization before he would be considered. DVT ppx: on eliquis Diet: 2g sodium VS,Fishbone, I+O VS, Fishbone, I+O Laboratory Tests 10/04/19 04:21 Vital Signs Date Time Temp Pulse Resp B/P (MAP) Pulse Ox O2 Delivery O2 Flow Rate FiO2 10/04/19 06:00 64 17 95/53 (71) 96 Ventilator 40 10/04/19 04:00 98.8 10/02/19 05:56 40.0 I&O- Last 24 Hours up to 6 AM 10/04/19 06:00 Intake Total 857.4 ml Output Total 1650 ml Balance -792.6 ml ELTON BARAJAS MD Oct 04, 2019 07:25
[2019-10-04] MEDS: guaiFENesin DM LIQ 10ML UD PO PRN ×2 (17:55→22:07)
[2019-10-04] MEDS: PRAMIPEXOLE (MIRAPEX) 0.125 MG TAB PO SCH (20:19)
--- NOTE | 2019-10-04 21:05 | IPN ---
DATE: 10/04/2019 Mr. Richard is seen this morning on his bedside. He remains on the ventilator via his tracheostomy. He is currently not on pressors. He was dialyzed yesterday after he had a new Perma-Cath placed and catheter was used. His right arm AV fistula has been nonfunctioning. PHYSICAL EXAMINATION Temperature 100 degrees Fahrenheit, heart rate 65 per minute and respiratory rate 16 per minute. Blood pressure 98/52 mmHg and oxygen saturation 95% on 40% FIO2. His head is atraumatic. Tracheostomy is present and JVD difficult to be assessed. Heart: Sounds are regular and distant. Lungs with bilateral air entry. Abdomen: Soft, obese and nontender. Extremities: Without cyanosis or clubbing. Right forearm AV fistula is nonfunctioning. Neurologically he is awake and at his baseline mentation. Today's labs show WBC count 11.2, hemoglobin 10.1 and hematocrit 32.1. Sodium 136, potassium 4.2, CO2 27, BUN 41 and creatinine 6.47. Blood gas today showed a pH of 7.33, pCO2 56 and pO2 77. Bicarb 46.4. PROBLEMS: 1. End-stage renal disease. The patient was dialyzed last evening and we will plan to dialyze him again tomorrow. At present, there is no emergent need for dialysis today. 2. Hyperkalemia. His potassium level has corrected and no intervention is needed today. Electrolytes will be checked again tomorrow morning. 3. Respiratory failure. This is related to chronic lung disease, obstructive sleep apnea and COPD. His volume status has been well compensated and respiratory failure is not related to volume overload. 4. Sepsis. The patient is afebrile and remains on antibiotics. He is currently not requiring pressors.
[2019-10-05] VITALS (37 sets, daily range): BP systolic 82–127; BP diastolic 47–60; O2SAT 96
[2019-10-05 04:36] LABS: BASO % 0.5 % (0.0-1.0); EOS # 0.3 10^3/uL (0.0-0.5); EOS % 3.7 % (0.0-3.0); HEMATOCRIT 29.6 % (42.0-52.0); HEMOGLOBIN 9.5 g/dl (13.5-17.5); LYMPH # 1.9 10^3/uL (1.5-5.0); LYMPH % 21.8 % (24.0-44.0); MEAN CORPUSCULAR HEMOGLOBIN 33.7 pg (27.0-33.0); MEAN CORPUSCULAR HGB CONC 32.1 g/dl (32.0-36.5); MONO # 0.6 10^3/uL (0.0-0.8); MONO % 6.4 % (0.0-5.0); NEUTROPHILS # 5.9 10^3/uL (1.5-8.5); NEUTROPHILS % 67.1 % (36.0-66.0); PLATELET COUNT, AUTOMATED 134 10^3/uL (150-450); RED BLOOD COUNT 2.82 10^6/uL (4.30-6.10); WHITE BLOOD COUNT 8.8 10^3/uL (4.0-10.0)
[2019-10-05 05:07] LABS: CALCIUM LEVEL 8.2 MG/DL (8.5-10.1); CREATININE FOR GFR 7.83 MG/DL (0.70-1.30); GLOMERULAR FILTRATION RATE 7.9 (>60); POTASSIUM SERUM 4.4 MEQ/L (3.5-5.1)
[2019-10-05] MEDS: SLF 3 ML SYR IV SCH ×3 (06:12→22:16)
[2019-10-05] MEDS: SODIUM CHLORIDE 0.9% INJ 10 ML SYR IV SCH ×3 (06:12→22:16)
[2019-10-05] MEDS: PIPERACILLIN/TAZOBACTAM SOD 2.25 GM in D5W MINI-BAG PLUS 50 ML IV SCH ×3 (06:21→20:43)
[2019-10-05] MEDS: (RENVELA) SEVELAMER **CARBONate** 800 MG TAB PO SCH ×3 (08:00→17:15)
[2019-10-05] MEDS: IPRATROPIUM 0.5MG/ALBUTEROL 2.5MG INH SOL UD 3ML (DUONEB)(J7620) INH SCH ×2 (08:35→19:28)
[2019-10-05] MEDS: APIXABAN 2.5 MG TAB (ELIQUIS) PO SCH ×2 (08:41→20:55)
[2019-10-05] MEDS: ALPRAZolam 0.5 MG TAB PO PRN ×3 (08:41→22:17)
[2019-10-05] MEDS: PERCOCET 5MG/325MG TAB PO PRN ×3 (08:42→22:17)
[2019-10-05] MEDS: SENOKOT S TAB PO SCH ×2 (08:44→20:54)
[2019-10-05] MEDS: DOCUSATE SODIUM 100 MG CAP PO SCH (08:44)
--- NOTE | 2019-10-05 09:08 | CCN ---
DATE OF SERVICE: 10/05/2019 The patient seen at bedside this morning converted to pressure support ventilation there are times where the patient has positives and does not trigger the vent. Therefore, I do not believe he will do well on trilogy alone. He may need a control mode. Other than that he expresses no complaints. He has been off vasopressor since 2 a.m. yesterday morning. Arterial line was removed yesterday. Will attempt to remove the triple-lumen catheter today out of the left femoral. Temperature is 98.4. Pulse is 65. Respiratory rate is 12. Blood pressure is 98/52 with a mean arterial pressure of 71. Oxygen saturation is 96% on 0.40 FiO2. General: Awake, alert and oriented. The patient appears tearful. HEENT: Sclerae clear and anicteric. Pupils are reactive to light. Mucous membranes are moist. Tongue is midline. Neck is supple. Large circumference. Cardiac: Distant S1, S2. Without audible murmur, rub or gallop. I am unable to palpate point of maximum impulse (PMI) due to body habitus. Pulmonary: Decreased breath sounds throughout both lung kline. Abdomen: Obese, soft, nontender. No distension. No discernible hepatosplenomegaly. Extremities: No cyanosis, clubbing and only minimal edema. Skin: Some tattoos. No rash, jaundice or bruising. Laboratory evaluation this morning shows yesterday a blood gas PRVC 7.33, pCO2 of 56, pAO2 of 77. White blood cell count is down to 8.8, hemoglobin 9.5. Sodium is 137, potassium 4.4, chloride 97, bicarbonate of 27, BUN of 48, creatinine is 7.83. IMPRESSION: Acute on chronic respiratory failure likely needs control mode. Will give him a trial of pressure support ventilation today in order to see if he is even able to ventilate on his own. We will give him short breaks off mechanical ventilation in order for nutritional supplementation. Overall I suspect the patient will require control mode.
[2019-10-05 13:01] LABS: ABG BASE EXCESS 1.9 (-2.0-2.0); ABG HCO3 28.1 MEQ/L (22.0-26.0); ABG O2 SATURATION 97.9 % (95.0-99.0); ABG PARTIAL PRESSURE CO2 51.4 mmHg (35.0-45.0); ABG PARTIAL PRESSURE O2 111.8 mmHg (75.0-100.0); ABG STANDARD HCO3 26.2 MEQ/L (22.0-26.0); ABG TOTAL CO2 29.7 MEQ/L (22.0-29.0); ABG pH (ARTERIAL) 7.356 UNITS (7.350-7.450)
--- NOTE | 2019-10-05 13:36 | IPN ---
DATE OF VISIT: 10/05/2019 Mr. Richard is seen this morning on his bedside during hemodialysis. He is not on any pressors and his blood pressure is at about baseline with about 99/50 mmHg. Nursing staff reports that his oral intake has been low and no vomiting or diarrhea reported. He remains on the ventilator via his tracheostomy due to respiratory failure. His right forearm AV fistula is nonfunctioning due to which he had a Perma-Cath placed which is now being used for dialysis. PHYSICAL EXAMINATION: Temperature 98 degrees Fahrenheit, heart rate 62 per minute and respiratory rate 18 per minute. Blood pressure 99/54 mmHg and oxygen saturation 94%. His head is atraumatic. Tracheostomy is in place and jugular venous distention (JVD) difficult to be assessed. Heart sounds are regular and distant. Lungs have bilateral air entry. Abdomen obese, soft and nontender and extremities have no cyanosis or clubbing. Right forearm AV fistula has a large aneurysmal dilatation but minimal blood flow. Neurologically he is at about his baseline mentation. His sputum culture came back positive for Proteus and other labs are essentially stable with WBC count 8.8, hemoglobin 9.5 and hematocrit 29.6. Sodium is 137, potassium 4.4, CO2 27, BUN 48 and creatinine 7.83. Glucose 89 and calcium 8.2. PROBLEMS: 1. End-stage renal disease. The patient is being dialyzed today and he is tolerating dialysis treatment well. We will remove only about 1.5 liters fluid as tolerated. He is being placed on 2000 mL fluid restriction per day. 2. Sepsis. His blood pressure is at about baseline. Leukocytosis has improved and he remains on antibiotics including the Zosyn. 3. Anemia. His anemia is stable at present and we will continue to monitor closely. 4. Respiratory failure. This is a chronic issue and now he had superimposed worsening failure requiring ventilator. He has super morbid obesity, severe pulmonary hypertension, chronic obstructive pulmonary artery disease (COPD) and obstructive sleep apnea. His volume status is reasonably well-compensated. He is likely to require long-term placement in a facility where he can be maintained on the ventilator.
[2019-10-05] MEDS: AMIODARONE 200 MG TAB (PACERONE) PO SCH (13:51)
[2019-10-05] MEDS: ESCITALOPRAM OXALATE 10 MG TAB (LEXAPRO) PO SCH (13:51)
[2019-10-05] MEDS: ACETAMINOPHEN TAB 650MG DOSE (2X325MG) PO PRN ×2 (13:55→20:54)
--- NOTE | 2019-10-05 16:04 | IPNPDOC ---
Text Note Date of Service The patient was seen on 10/05/19. NOTE Subjective: -No complaints this morning, afebrile, normotensive, no pressors Objective: Vitals: see below, afebrile, hemodynamically stable off pressors General: Patient awake, alert, morbidly obese man HEENT: PERRLA, EOMI, laying in bed with trach connected to vent Cardiac: RRR, no murmurs Pulm: Transmitted upper airway sounds, diminished throughout without hernan wheez ing or crackles Abdomen: Morbidly obese, soft, nontender, nondistended, normoactive sounds Extremities: No cyanosis, no swelling, no LE edema, WWP Neurologic: Nonfocal, moves all extremities, no facial droops, AOx3 Skin: No rashes, jaundice with occasional ecchymoses. Labs: Reviewed. Stable Assessment: Patient is 49 years old man with morbid obesity, hyperventilation syndrome, chronic hypercapnic hypoxemic respiratory failure status post tracheostomy, end- stage renal diseases presented hospital with acute on chronic respiratory failure and AMS and found to be severely hypercarbic requiring escalation from his home trilogy to the vent, antibiotics for presumed PNA c/b shock and NSVT. Septic shock 2/2 pneumonia: Presumed active infection with thus far negative blood cultures and now pending sputum culture -s/p vasopressors, with shock now resolved -With improving leukocytosis and elevated procalcitonin -MRSA negative -s/p 3d of ceftaroline/deirdre, switched to pip/tazo, continue pip/tazo, day 5 of antibiotics -Follow up blood cultures -Follow up sputum cultures --> with GPCs in pairs, chains and clusters -Femoral TLC was removed overnight. Acute and chronic respiratory failure with hypercapnia: On ventilator. -No DVTs on LE doppler venous ultrasound -Given the history of chronic pulmonary embolism with history of chronic DVTs Dr. Lopez (filling station laborer) recommended him to be started on Eliquis 2.5 mg twice a day empirically that he is now on -Respiratory PCR panel was negative -His respitarory status was not well managed on the trilogy and was transitioned to the vent by Dr. Estrada and will most likely need chronic ventilator which will have to be reassessed anddiscussed when close to discharge. -treating PNA per above -Patient requesting to have trach changed by Dr. Ortega, while here. Will reach out to Dr. Ortega. V. tach: Resolved -Most likely secondary to infection and fever superimposed with electrolytes imbalance and acute on chronic respiratory failure with severe pulmonary hypertension -Continue amiodarone PO (ESRD (end stage renal disease) on dialysis -Follows with Dr. Curtis, nephrology on board, had HD yesterday -On discussion of his episodic hypotension, Dr. Curtis did not see the need for midodrine and to give some fluids if persistently hypotensive. Metabolic encephalopathy: Resolved, was secondary to acute hypercapnic hypoxemic respiratory failure -Continue ventilator per pulmonology Atrial fibrillation: Was initially not on anticoagulation due to perinephric bleeding before when he was on warfarin, now started on Eliquis -Due to high risk of DVT and PE we started Eliquis -on amiodarone Morbid obesity -Pickwickian syndrome with obesity hypoventilation syndrome -Elizabeth lift at baseline at [facility] chronically -Patient is a candidate for bariatric surgery but has poor reserve and likely a poor surgical candidate and would need medical optimization before he would be considered. DVT ppx: on eliquis Diet: 2g sodium Dispo: ICU on vent VS,Fishbone, I+O VS, Fishbone, I+O Laboratory Tests 10/05/19 04:08 Vital Signs Date Time Temp Pulse Resp B/P (MAP) Pulse Ox O2 Delivery O2 Flow Rate FiO2 10/05/19 08:42 12 10/05/19 08:36 65 10/05/19 08:36 96 40 10/05/19 08:36 Ventilator 10/05/19 06:00 98/52 (71) 10/05/19 04:00 98.4 10/02/19 05:56 40.0 I&O- Last 24 Hours up to 6 AM 10/05/19 06:00 Intake Total 1140 ml Output Total 0 ml Balance 1140 ml ELTON BARAJAS MD Oct 05, 2019 09:21
[2019-10-05] MEDS: OSELTAMIVIR PHOSPHATE 30MG CAPSULE PO SCH (17:25)
[2019-10-05] MEDS: guaiFENesin DM LIQ 10ML UD PO PRN (20:53)
[2019-10-05] MEDS: PRAMIPEXOLE (MIRAPEX) 0.125 MG TAB PO SCH (20:54)
[2019-10-06] VITALS (24 sets, daily range): BP systolic 80–113; BP diastolic 42–63
[2019-10-06] MEDS: ALBUTEROL 90 MCG/ACT 8GM HFA INHALER INH PRN (01:11)
[2019-10-06] MEDS: PERCOCET 5MG/325MG TAB PO PRN ×3 (03:53→16:30)
[2019-10-06] MEDS: ALPRAZolam 0.5 MG TAB PO PRN ×2 (03:53→16:33)
[2019-10-06] MEDS: SLF 3 ML SYR IV SCH ×3 (05:06→20:34)
[2019-10-06] MEDS: SODIUM CHLORIDE 0.9% INJ 10 ML SYR IV SCH ×2 (05:07→14:00)
[2019-10-06 05:20] LABS: BASO % 0.5 % (0.0-1.0); EOS # 0.4 10^3/uL (0.0-0.5); EOS % 5.4 % (0.0-3.0); HEMOGLOBIN 9.2 g/dl (13.5-17.5); LYMPH # 2.3 10^3/uL (1.5-5.0); LYMPH % 31.3 % (24.0-44.0); MEAN CORPUSCULAR HGB CONC 30.7 g/dl (32.0-36.5); MEAN CORPUSCULAR VOLUME 107.5 fl (80.0-96.0); MONO # 0.5 10^3/uL (0.0-0.8); MONO % 6.7 % (0.0-5.0); NEUTROPHILS # 4.1 10^3/uL (1.5-8.5); NEUTROPHILS % 55.4 % (36.0-66.0); PLATELET COUNT, AUTOMATED 131 10^3/uL (150-450); RED BLOOD COUNT 2.79 10^6/uL (4.30-6.10); WHITE BLOOD COUNT 7.4 10^3/uL (4.0-10.0)
[2019-10-06 05:45] LABS: CALCIUM LEVEL 8.5 MG/DL (8.5-10.1); CREATININE FOR GFR 5.19 MG/DL (0.70-1.30); GLOMERULAR FILTRATION RATE 12.7 (>60); POTASSIUM SERUM 3.9 MEQ/L (3.5-5.1)
[2019-10-06] MEDS: IPRATROPIUM 0.5MG/ALBUTEROL 2.5MG INH SOL UD 3ML (DUONEB)(J7620) INH SCH ×2 (07:56→20:11)
[2019-10-06] MEDS: PIPERACILLIN/TAZOBACTAM SOD 2.25 GM in D5W MINI-BAG PLUS 50 ML IV SCH ×2 (09:04→20:34)
[2019-10-06 09:36] LABS: ABG BASE EXCESS -2.2 (-2.0-2.0); ABG HCO3 23.7 MEQ/L (22.0-26.0); ABG O2 SATURATION 98.4 % (95.0-99.0); ABG PARTIAL PRESSURE CO2 45.7 mmHg (35.0-45.0); ABG PARTIAL PRESSURE O2 121.9 mmHg (75.0-100.0); ABG STANDARD HCO3 22.6 MEQ/L (22.0-26.0); ABG TOTAL CO2 25.1 MEQ/L (22.0-29.0); ABG pH (ARTERIAL) 7.333 UNITS (7.350-7.450)
[2019-10-06] MEDS: DOCUSATE SODIUM 100 MG CAP PO SCH (09:45)
[2019-10-06] MEDS: SENOKOT S TAB PO SCH ×2 (09:45→20:31)
[2019-10-06] MEDS: (RENVELA) SEVELAMER **CARBONate** 800 MG TAB PO SCH ×4 (09:45→17:07)
[2019-10-06] MEDS: APIXABAN 2.5 MG TAB (ELIQUIS) PO SCH ×2 (09:45→20:32)
[2019-10-06] MEDS: VITAMIN D 50,000 UNITS CAPSULE (ERGOCALCIFEROL 1.25MG) PO SCH (09:47)
[2019-10-06] MEDS: AMIODARONE 200 MG TAB (PACERONE) PO SCH (12:15)
[2019-10-06] MEDS: ESCITALOPRAM OXALATE 10 MG TAB (LEXAPRO) PO SCH (12:15)
--- NOTE | 2019-10-06 12:28 | IPN ---
DATE: 10/06/2019 The patient was seen and examined this morning during bedside rounds. He had no events overnight. The patient has remained off of pressors with a MAP ranging in the 60-65 range. He has remained on pressure support on the ventilator yesterday and overnight. He denies any complaints this morning. The patient has some thick yellow mucus but no significant coughing and no fevers overnight. PHYSICAL EXAMINATION: Temperature 98.3, pulse 65, respirations 10, oxygen saturation 95% on 35% FiO2. GENERAL: The patient is morbidly obese. He is lying in bed alert and oriented. Does not appear to be any respiratory distress. HEENT: Normocephalic, atraumatic. Pupils are reactive to light. Mucous membranes are moist. The patient has a thick neck. There is a tracheostomy in place with some crusting around the trache. Cardiac: Distant heart sounds, regular S1, S2. Unable to appreciate a murmur. Pulmonary: Coarse wheezing noted bilaterally with some diminished breath sounds and occasional rhonchi, more on the right side. Abdomen is obese, soft, nontender, nondistended. Unable to palpate masses. Extremities: No significant lower extremity edema bilaterally. No cyanosis. Skin: Some tattoos noted. No rash, jaundice or bruising. LABORATORY DATA: WBC 7.4, hemoglobin 9.2, platelet count 131. Chemistry: Sodium is 137, potassium 3.9, chloride is 101, bicarbonate is 26, BUN is 24, creatinine is 5.19, glucose is 91, calcium is 8.5. ABG 7.333, pCO2 of 45.7, pO2 of 121.9. ASSESSMENT AND PLAN: The patient is a 49-year-old male with history of morbid obesity, obesity hypoventilation syndrome, history of chronic hypercapnic and hypoxemic respiratory failure status post tracheostomy, end stage renal disease on hemodialysis who presented with altered mental status with acute on chronic hypercapnic respiratory failure and shock with presumed pneumonia. - The patient had his femoral triple lumen removed yesterday. He has remained off of vasopressors and his blood pressure has remained stable with MAP in the 60-65 range. - The patient is still on antibiotics. He is on day five currently of total antibiotics. He will continue with Zosyn. His sputum culture had grown Proteus. - The patient is currently on a ventilator, he was initially on control mode with pressure-like regulated volume control (PRVC) , which he required due to his acute worsening of his chronic hypercarbic respiratory failure. He previously was on Trilogy noninvasive ventilator at his group home through his trache. Yesterday he was switched to pressure support on the ventilator, which he tolerated throughout the day, as well as overnight. An ABG was checked this morning, which did not show any significant worsening of his chronic hypercarbia. - We will see if the patient has previously been off of Trilogy when he was a group home as he is on trache collar for feeding. If his baseline is that he is off on trache collar during the day and then on Trilogy at night, we will attempt to transition him to trache collar during the day and ventilator with pressure support at night. If patient is having apneic episodes at night may have component of central apnea and require control mode such as PRVC overnight. For now, we will continue him with breaks on trache collar for eating and then we will place him back on to pressor support. Deep vein thrombosis (DVT) prophylaxis. On Eliquis FULL CODE. MTDD
--- NOTE | 2019-10-06 13:44 | IPNPDOC ---
Text Note Date of Service The patient was seen on 10/06/19. NOTE Subjective: -No complaints this morning, afebrile, soft BPs with asymptomatic episodes of hypotension overnight Objective: Vitals: see below, afebrile, hemodynamically stable off pressors General: Patient awake, alert, morbidly obese man HEENT: PERRLA, EOMI, laying in bed with trach connected to vent Cardiac: RRR, no murmurs Pulm: Transmitted upper airway sounds, diminished throughout without hernan wheezing or crackles Abdomen: Morbidly obese, soft, nontender, nondistended, normoactive sounds Extremities: No cyanosis, no swelling, no LE edema, WWP Neurologic: Nonfocal, moves all extremities, no facial droops, AOx3 Skin: No rashes, jaundice with occasional ecchymoses. Labs: Reviewed. Stable Micro: Grew proteus which is a gram negative, with gram stain showing mostly gram positive cocci in pairs, chains and clusters. MRSA negative. Assessment: Patient is 49 years old man with morbid obesity, hyperventilation syndrome, chronic hypercapnic hypoxemic respiratory failure status post tracheostomy, end- stage renal diseases presented hospital with acute on chronic respiratory failure and AMS and found to be severely hypercarbic requiring escalation from his home trilogy to the vent, antibiotics for presumed PNA c/b shock and NSVT. Septic shock 2/2 pneumonia: Presumed active infection with thus far negative blood cultures and now pending sputum culture -s/p vasopressors, with shock now resolved -With improving leukocytosis and elevated procalcitonin -Grew proteus which is a gram negative, with gram stain showing mostly gram positive cocci in pairs, chains and clusters. MRSA negative. --> given the mixed roberto picture in this sample and history of pseudomonas --> will keep zosyn for 7days total -s/p 3d of ceftaroline/deirdre, switched to pip/tazo, continue pip/tazo, day 6 of antibiotics -Follow up blood cultures --> negative to date Acute and chronic respiratory failure with hypercapnia: On ventilator. -No DVTs on LE doppler venous ultrasound -Given the history of chronic pulmonary embolism with history of chronic DVTs Dr. Lopez (pododermatologist) recommended him to be started on Eliquis 2.5 mg twice a day empirically that he is now on -Respiratory PCR panel was negative -His respitarory status was not well managed on the trilogy and was transitioned to the vent by Dr. Estrada and will most likely need chronic ventilator which will have to be reassessed anddiscussed when close to discharge. -treating PNA per above -Patient requesting to have trach changed by Dr. Ortega, while here. Will reach out to Dr. Ortega. V. tach: Resolved -Most likely secondary to infection and fever superimposed with electrolytes imbalance and acute on chronic respiratory failure with severe pulmonary hypertension -Continue amiodarone PO (ESRD (end stage renal disease) on dialysis -Follows with Dr. Curtis, nephrology on board, had HD yesterday -On discussion of his episodic hypotension, Dr. Curtis did not see the need for midodrine and to give some fluids if persistently hypotensive. Metabolic encephalopathy: Resolved, was secondary to acute hypercapnic hypoxemic respiratory failure -Continue ventilator per pulmonology Atrial fibrillation: Was initially not on anticoagulation due to perinephric bleeding before when he was on warfarin, now started on Eliquis -Due to high risk of DVT and PE we started Eliquis -on amiodarone Morbid obesity -Pickwickian syndrome with obesity hypoventilation syndrome -Elizabeth lift at baseline at [facility] chronically -Patient is a candidate for bariatric surgery but has poor reserve and likely a poor surgical candidate and would need medical optimization before he would be considered. DVT ppx: on eliquis Diet: 2g sodium Dispo: ICU on vent VS,Fishbone, I+O VS, Fishbone, I+O Laboratory Tests 10/06/19 04:52 Vital Signs Date Time Temp Pulse Resp B/P (MAP) Pulse Ox O2 Delivery O2 Flow Rate FiO2 10/06/19 07:56 55 10 96 35 10/06/19 06:00 89/52 (67) Ventilator 10/06/19 05:00 98.3 10/02/19 05:56 40.0 I&O- Last 24 Hours up to 6 AM 10/06/19 06:00 Intake Total 700 ml Output Total 1000 ml Balance -300 ml ELTON BARAJAS MD Oct 06, 2019 08:20
--- NOTE | 2019-10-06 14:25 | IPN ---
DATE: 10/06/2019 Mr. Richard is seen this morning on his bedside. He was dialyzed yesterday and was removed only 1 liter of fluid. He tolerated dialysis well. His blood pressure remains in 80s. He is asymptomatic. He is not on any pressors. He remains mostly on the ventilator and currently he is on trache collar as he is getting ready for his breakfast. PHYSICAL EXAMINATION: Temperature 97.5 degrees Fahrenheit, heart rate 78 per minute and respiratory rate 12 per minute. Blood pressure 87/49 mmHg and oxygen saturation 95% on trache collar. Head is atraumatic. Neck is supple and jugular venous distention (JVD) impossible to be assessed. Tracheostomy is in place. Heart sounds distant, regular. Lungs have bilateral good air entry. Abdomen is obese, soft and nontender. Extremities without any cyanosis or clubbing. He has a Perma-Cath on left upper chest. Neurologically, he is essentially unchanged. Today's labs show WBC count 7.4, hemoglobin 9.2 and hematocrit 30. Platelets are 131. Blood gas done just a short while ago showed a pH of 7.33, pCO2 45.7 and pO2 1.9. Chemistry showed sodium 136, potassium 3.9, BUN 24 and creatinine 5.19. PROBLEMS: 1. End-stage renal disease. The patient was dialyzed yesterday and he received a good dialysis. We will plan to dialyze him again tomorrow. His electrolytes are within normal range. 2. Hypotension. Blood pressure has been chronically low and he is asymptomatic. Not requiring any pressors at present. 3. Respiratory failure, chronic issue related to obstructive sleep apnea, chronic obstructive pulmonary disease (COPD), morbid obesity and pulmonary hypertension. He seems to be doing reasonably well on trache collar and we will defer to pulmonary for switching back to ventilator. His long-term prognosis remains poor.
[2019-10-06] MEDS: PRAMIPEXOLE (MIRAPEX) 0.125 MG TAB PO SCH (20:31)
[2019-10-07] VITALS (38 sets, daily range): BP systolic 79–124; BP diastolic 40–69; O2SAT 97
[2019-10-07] MEDS: ALPRAZolam 0.5 MG TAB PO PRN ×3 (01:01→23:44)
[2019-10-07] MEDS: PERCOCET 5MG/325MG TAB PO PRN ×4 (01:01→23:44)
[2019-10-07 04:58] LABS: HEMATOCRIT 30.7 % (42.0-52.0); HEMOGLOBIN 9.6 g/dl (13.5-17.5); MEAN CORPUSCULAR HEMOGLOBIN 33.3 pg (27.0-33.0); MEAN CORPUSCULAR HGB CONC 31.3 g/dl (32.0-36.5); MEAN CORPUSCULAR VOLUME 106.6 fl (80.0-96.0); PLATELET COUNT, AUTOMATED 162 10^3/uL (150-450); RED BLOOD COUNT 2.88 10^6/uL (4.30-6.10); WHITE BLOOD COUNT 6.4 10^3/uL (4.0-10.0)
[2019-10-07] MEDS: SLF 3 ML SYR IV SCH ×3 (05:10→20:06)
[2019-10-07 05:22] LABS: ALBUMIN 2.2 GM/DL (3.2-5.2); BILIRUBIN,TOTAL 0.7 MG/DL (0.2-1.0); CALCIUM LEVEL 8.5 MG/DL (8.5-10.1); CREATININE FOR GFR 6.34 MG/DL (0.70-1.30); GLOMERULAR FILTRATION RATE 10.1 (>60); POTASSIUM SERUM 3.7 MEQ/L (3.5-5.1); TOTAL PROTEIN 6.6 GM/DL (6.4-8.2)
[2019-10-07] MEDS: IPRATROPIUM 0.5MG/ALBUTEROL 2.5MG INH SOL UD 3ML (DUONEB)(J7620) INH SCH ×2 (07:30→20:07)
[2019-10-07] MEDS: SENOKOT S TAB PO SCH ×2 (07:44→20:06)
[2019-10-07] MEDS: DOCUSATE SODIUM 100 MG CAP PO SCH (07:44)
[2019-10-07] MEDS: APIXABAN 2.5 MG TAB (ELIQUIS) PO SCH ×2 (07:45→20:06)
[2019-10-07] MEDS: PIPERACILLIN/TAZOBACTAM SOD 2.25 GM in D5W MINI-BAG PLUS 50 ML IV SCH ×2 (07:46→20:06)
[2019-10-07] MEDS: (RENVELA) SEVELAMER **CARBONate** 800 MG TAB PO SCH ×3 (07:52→17:44)
[2019-10-07] MEDS ORDERED: HEPARIN 1,000 UNITS/ML 10ML VIAL (FOR RADIOLOGY& DIALYSIS ONLY) XX ONE (10:00)
[2019-10-07] MEDS ORDERED: HEPARIN 1,000 UNITS/ML 10ML VIAL (FOR RADIOLOGY& DIALYSIS ONLY) IV ONE (10:00)
[2019-10-07] MEDS ORDERED: DARBEPOETIN 100 MCG/0.5 ML *DIALYSIS* SYRINGE (J0882) IV SCH (11:15)
[2019-10-07] MEDS: ACETAMINOPHEN TAB 650MG DOSE (2X325MG) PO PRN (11:49)
--- NOTE | 2019-10-07 11:53 | IPN ---
DATE OF SERVICE: 10/07/2019 The patient was seen and examined this morning during bedside rounds. Overnight, the patient was on pressure support but was noted to have apneic episodes and required being transitioned to a controlled mode on the ventilator with pressure-regulated volume control (PRVC) mode. This morning, he denies any shortness of breath. Has not had any significant coughing. No fevers overnight. The patient was attempted to be weaned off of PRVC to pressure support mode but did not tolerate. He was placed back on PRVC while he is on dialysis and then will later attempt to wean him to pressure support, as well as trache collar for eating. PHYSICAL EXAMINATION: Temperature 97.9, pulse 66, respirations 16, blood pressure 109/55, oxygen (O2) saturation 99% on vent at 35% FIO2. General: The patient is morbidly obese. He is lying in bed. Alert and oriented. Does not appear to be respiratory distress. HEENT: Normocephalic, atraumatic. Pupils reactive to light. Mucous membranes moist. The patient has a thick neck. There is a tracheostomy in place with some crusting around the trache site. Cardiac: Distant heart sounds, regular, S1, S2. Unable to appreciate any murmurs. Unable to palpate a point of maximal impulse (PMI) due to body habitus. Pulmonary: Some coarse wheezes and rhonchi noted bilaterally with diminished breath sounds. Abdomen is obese, soft, nontender, nondistended. Unable to palpate masses. Extremities: No significant lower extremity edema bilaterally. No cyanosis. Skin: Some tattoos noted. No rash, jaundice, bruising. LABORATORIES: WBC 6.4, hemoglobin 9.6, platelets are 162. Chemistry: Sodium is 138, potassium 3.7, chloride 100, bicarbonate 29, BUN 6.39, creatinine 10.1, glucose is 102. ASSESSMENT AND PLAN: The patient is a 49-year-old male with history of morbid obesity, obesity hypoventilation syndrome, history of chronic hypercapnic and hypoxemic respiratory failure status post tracheostomy, end-stage renal disease (ESRD) on hemodialysis, who presented with altered mental status and acute on chronic hypercapnic respiratory failure, as well as shock with presumed pneumonia. The patient's acute hypercapnic respiratory failure has improved. The patient's shock has also improved, and he has been off of pressors with removal of his triple-lumen catheter. - The patient was tolerating pressure support during the day. However, overnight, he had apneic episodes, likely central apneic episodes, requiring transition to a control mode on the ventilator with PRVC which he did well with. The patient will likely need ventilator on discharge, and he will likely require periodic control mode ventilation, particularly when sleeping. During the day, he can be weaned to pressure support on the ventilator as tolerated, as well as to trache collar as tolerated. The patient will likely, therefore, require discharge to a facility with vent capabilities. - Continue with antibiotics. He is on day 6 of total antibiotics with Zosyn His sputum culture had grown Proteus, which was sensitive to the Zosyn. Would continue as per the primary team. Likely a 7-day course would be appropriate. - Continue with aspiration precautions. Deep venous thrombosis (DVT) prophylaxis, Eliquis. FULL CODE. Please do not hesitate to call if any further questions or concerns. MTDD
[2019-10-07] MEDS: AMIODARONE 200 MG TAB (PACERONE) PO SCH (12:30)
[2019-10-07] MEDS: ESCITALOPRAM OXALATE 10 MG TAB (LEXAPRO) PO SCH (12:30)
--- NOTE | 2019-10-07 13:37 | IPN ---
DATE: 09/30/2019 Mr. Richard is seen this morning on his bedside during dialysis. He is back on the ventilator as he did not tolerate trache collar or even pressure support. His blood pressure remains just below 100 mmHg systolic. He is afebrile and has been able to take his nutrition by mouth. PHYSICAL EXAMINATION Temperature is 97.3 degrees Fahrenheit, heart rate 60 per minute and respiratory rate 12 per minute. Blood pressure 95/54 mmHg and oxygen saturation 96% on ventilator. His head is atraumatic. Neck veins cannot be assessed. Tracheostomy is in place hooked to ventilator. Heart: Sounds are regular and distant. Lungs: Have good bilateral air entry. Abdomen: Obese and nontender. Bowel sounds are normal. Extremities: Without any cyanosis or clubbing. Neurologically he is essentially unchanged. LABS: Today's labs show WBC count 6.4, hemoglobin 9.6 and hematocrit 30.7. Platelets 162. Sodium 138, potassium 3.7, CO2 29, BUN 34 and creatinine 6.34. Total protein is 6.6 and albumin 2.2. PROBLEMS: 1. End-stage renal disease. The patient is being dialyzed today and he is tolerating his dialysis well. We are removing about 2 liters of fluid as tolerated. 2. Respiratory failure. This is multifactorial, but mostly related to his morbid obesity, obstructive sleep apnea, COPD and pulmonary hypertension. I do not feel that he has any problem with volume overload. We are trying to remove about 2 liters of fluid as tolerated. 3. Anemia. Essentially stable and no intervention is indicated at present. I will order Aranesp for next week and give him 200 mcg of Aranesp once a week. 4. Hypotension. This is chronic and essentially unchanged. He is not on any pressors and tolerating d (cut off). 5. Nonfunctioning right forearm AV fistula. The patient had a Perma-Cath placed as his AV fistula is nonfunctioning. We will see when he is stable for possible fistuloplasty. At present his Perma-Cath is functioning.
--- NOTE | 2019-10-07 14:23 | IPNPDOC ---
Text Note Date of Service The patient was seen on 10/07/19. NOTE Subjective: -Did poorly when he was placed on PSV with apneic episodes to RR 5 -No complaints this morning, afebrile Objective: Vitals: see below, afebrile, hemodynamically stable off pressors General: Patient awake, alert, morbidly obese man HEENT: PERRLA, EOMI, laying in bed with trach connected to vent Cardiac: RRR, no murmurs Pulm: Transmitted upper airway sounds, diminished throughout without hernan wheezing or crackles Abdomen: Morbidly obese, soft, nontender, nondistended, normoactive sounds Extremities: No cyanosis, no swelling, no LE edema, WWP Neurologic: Nonfocal, moves all extremities, no facial droops, AOx3 Skin: No rashes, jaundice with occasional ecchymoses. Labs: Reviewed. Stable Micro: Grew proteus which is a gram negative, with gram stain showing mostly gram positive cocci in pairs, chains and clusters. MRSA negative. Assessment: Patient is 49 years old man with morbid obesity, hyperventilation syndrome, chronic hypercapnic hypoxemic respiratory failure status post tracheostomy, end- stage renal diseases presented hospital with acute on chronic respiratory failure and AMS and found to be severely hypercarbic requiring escalation from his home trilogy to the vent, antibiotics for presumed PNA c/b shock and NSVT. Septic shock 2/2 pneumonia: Presumed active infection with thus far negative blood cultures and now pending sputum culture -s/p vasopressors, with shock now resolved -With improving leukocytosis and elevated procalcitonin -Grew proteus which is a gram negative, with gram stain showing mostly gram positive cocci in pairs, chains and clusters. MRSA negative. --> given the mixed roberto picture in this sample and history of pseudomonas --> will keep zosyn for 7days total -s/p 3d of ceftaroline/edirdre, switched to pip/tazo, continue pip/tazo, day 7 of antibiotics -Follow up blood cultures --> negative to date Acute and chronic respiratory failure with hypercapnia: On ventilator. -No DVTs on LE doppler venous ultrasound -Given the history of chronic pulmonary embolism with history of chronic DVTs Dr. Lopez (appian developer) recommended him to be started on Eliquis 2.5 mg twice a day empirically that he is now on -Respiratory PCR panel was negative -His respitarory status was not well managed on the trilogy and was transitioned to the vent by Dr. Estrada and will most likely need chronic ventilator and now failed PSV mode and will need chronic vent placement which would mean moving far away from [place]. Will need to discuss with patient and Dr. Baer. -treating PNA per above -Patient requesting to have trach changed by Dr. Ortega, while here. Will reach out to Dr. Ortega when he returns if patient is still in the hospital V. tach: Resolved -Most likely secondary to infection and fever superimposed with electrolytes imbalance and acute on chronic respiratory failure with severe pulmonary hypertension -Continue amiodarone PO (ESRD (end stage renal disease) on dialysis -Follows with Dr. Curtis, nephrology on board, was having HD this AM when I saw him -On discussion of his episodic hypotension, Dr. Curtis did not see the need for midodrine and to give some fluids if persistently hypotensive. Metabolic encephalopathy: Resolved, was secondary to acute hypercapnic hypoxemic respiratory failure -Continue ventilator per pulmonology Atrial fibrillation: Was initially not on anticoagulation due to perinephric bleeding before when he was on warfarin, now started on Eliquis -Due to high risk of DVT and PE we started Eliquis -on amiodarone Morbid obesity -Pickwickian syndrome with obesity hypoventilation syndrome -Elizabeth lift at baseline at [facility] -Patient is a candidate for bariatric surgery but has poor reserve and likely a poor surgical candidate and would need medical optimization before he would be considered. DVT ppx: on eliquis Diet: 2g sodium Dispo: ICU on vent VS,Fishbone, I+O VS, Fishbone, I+O Laboratory Tests 10/07/19 04:31 Vital Signs Date Time Temp Pulse Resp B/P (MAP) Pulse Ox O2 Delivery O2 Flow Rate FiO2 10/07/19 08:30 60 98/55 (73) 96 Ventilator 35 10/07/19 08:15 16 10/07/19 08:00 97.3 10/02/19 05:56 40.0 I&O- Last 24 Hours up to 6 AM 10/07/19 06:00 Intake Total 820 ml Output Total 0 ml Balance 820 ml ELTON BARAJAS MD Oct 07, 2019 09:34
[2019-10-07] MEDS: PRAMIPEXOLE (MIRAPEX) 0.125 MG TAB PO SCH (20:05)
[2019-10-08] VITALS (28 sets, daily range): BP systolic 81–115; BP diastolic 44–68; O2SAT 97–99
[2019-10-08 05:06] LABS: HEMATOCRIT 32.3 % (42.0-52.0); HEMOGLOBIN 10.1 g/dl (13.5-17.5); MEAN CORPUSCULAR HEMOGLOBIN 33.7 pg (27.0-33.0); MEAN CORPUSCULAR HGB CONC 31.3 g/dl (32.0-36.5); MEAN CORPUSCULAR VOLUME 107.7 fl (80.0-96.0); PLATELET COUNT, AUTOMATED 162 10^3/uL (150-450); WHITE BLOOD COUNT 7.5 10^3/uL (4.0-10.0)
[2019-10-08 05:28] LABS: CALCIUM LEVEL 9.3 MG/DL (8.5-10.1); CREATININE FOR GFR 4.54 MG/DL (0.70-1.30); GLOMERULAR FILTRATION RATE 14.9 (>60); MAGNESIUM LEVEL 1.9 MG/DL (1.8-2.4); POTASSIUM SERUM 3.8 MEQ/L (3.5-5.1)
[2019-10-08] MEDS: SLF 3 ML SYR IV SCH ×3 (06:00→20:17)
[2019-10-08] MEDS: ALPRAZolam 0.5 MG TAB PO PRN ×3 (06:30→20:17)
[2019-10-08] MEDS: PERCOCET 5MG/325MG TAB PO PRN ×3 (06:31→20:16)
[2019-10-08] MEDS: IPRATROPIUM 0.5MG/ALBUTEROL 2.5MG INH SOL UD 3ML (DUONEB)(J7620) INH SCH ×2 (07:32→19:40)
[2019-10-08] MEDS: (RENVELA) SEVELAMER **CARBONate** 800 MG TAB PO SCH ×3 (08:00→18:00)
[2019-10-08] MEDS: PIPERACILLIN/TAZOBACTAM SOD 2.25 GM in D5W MINI-BAG PLUS 50 ML IV SCH (08:37)
[2019-10-08] MEDS: DOCUSATE SODIUM 100 MG CAP PO SCH (08:37)
[2019-10-08] MEDS: SENOKOT S TAB PO SCH ×2 (08:37→20:17)
[2019-10-08] MEDS: APIXABAN 2.5 MG TAB (ELIQUIS) PO SCH ×2 (08:37→20:16)
--- NOTE | 2019-10-08 11:08 | IPNPDOC ---
Text Note Date of Service The patient was seen on 10/08/19. NOTE Subjective: -No complaints this morning, afebrile Objective: Vitals: see below, afebrile, hemodynamically stable off pressors General: Patient awake, alert, morbidly obese man HEENT: PERRLA, EOMI, laying in bed with trach connected to vent Cardiac: RRR, no murmurs Pulm: Diffuse rhonchi as before, diminished throughout without hernan wheezing or crackles Abdomen: Morbidly obese, soft, nontender, nondistended, normoactive sounds Extremities: No cyanosis, no swelling, no LE edema, WWP Neurologic: Nonfocal, moves all extremities, no facial droops, AOx3 Skin: No rashes, jaundice with occasional ecchymoses. Labs: Reviewed. Stable Micro: Grew proteus which is a gram negative, with gram stain showing mostly gram positive cocci in pairs, chains and clusters. MRSA negative. 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 Septic shock 2/2 pneumonia: Presumed active infection with thus far negative blood cultures and now pending sputum culture -s/p vasopressors, with shock now resolved -With improving leukocytosis and elevated procalcitonin -Grew proteus which is a gram negative, with gram stain showing mostly gram positive cocci in pairs, chains and clusters. MRSA negative. --> given the mixed roberto picture in this sample and history of pseudomonas --> will keep zosyn for 7days total -s/p 3d of ceftaroline/deirdre, switched to pip/tazo, continue pip/tazo, had 7d of antibiotics thus far, day 8, will treat for 10d given ESRD on HD and debilitated state -Follow up blood cultures --> negative to date Acute and chronic respiratory failure with hypercapnia: On ventilator. -No DVTs on LE doppler venous ultrasound -Given the history of chronic pulmonary embolism with history of chronic DVTs Dr. Lopez (senior private client advisor) recommended him to be started on Eliquis 2.5 mg twice a day empirically that he is now on -Respiratory PCR panel was negative -His respitarory status was not well managed on the trilogy and was transitioned to the vent by Dr. Estrada and will most likely need chronic ventilator and now failed PSV mode and will need chronic vent placement which would mean moving far away from [place]. Will need to discuss with patient and Dr. Baer. -treating PNA per above -Patient requesting to have trach changed by Dr. Ortega, while here. Will reach out to Dr. Ortega when he returns if patient is still in the hospital V. tach: Resolved -Most likely secondary to infection and fever superimposed with electrolytes imbalance and acute on chronic respiratory failure with severe pulmonary hypertension -Continue amiodarone PO (ESRD (end stage renal disease) on dialysis -Follows with Dr. Curtis, nephrology on board, was having HD this AM when I saw him -On discussion of his episodic hypotension, Dr. Curtis did not see the need for midodrine and to give some fluids if persistently hypotensive. Metabolic encephalopathy: Resolved, was secondary to acute hypercapnic hypoxemic respiratory failure -Continue ventilator per pulmonology Atrial fibrillation: Was initially not on anticoagulation due to perinephric bleeding before when he was on warfarin, now started on Eliquis -Due to high risk of DVT and PE we started Eliquis -on amiodarone Morbid obesity -Pickwickian syndrome with obesity hypoventilation syndrome -Elizabeth lift at baseline at [facility] chron[facility] -Patient is a candidate for bariatric surgery but has poor reserve and likely a poor surgical candidate and would need medical optimization before he would be considered. DVT ppx: on eliquis Diet: 2g sodium Dispo: ICU on vent VS,Fishbone, I+O VS, Fishbone, I+O Laboratory Tests 10/08/19 04:26 Vital Signs Date Time Temp Pulse Resp B/P (MAP) Pulse Ox O2 Delivery O2 Flow Rate FiO2 10/08/19 07:35 98 Ventilator 35 10/08/19 07:33 59 16 10/08/19 06:00 94/55 (69) 10/08/19 04:00 98.2 10/02/19 05:56 40.0 I&O- Last 24 Hours up to 6 AM 10/08/19 06:00 Intake Total 550 ml Output Total 2000 ml Balance -1450 ml [id number]-SILVERIO,ELTON V. MD Oct 08, 2019 08:51
[2019-10-08] MEDS: AMIODARONE 200 MG TAB (PACERONE) PO SCH (12:00)
[2019-10-08] MEDS: ESCITALOPRAM OXALATE 10 MG TAB (LEXAPRO) PO SCH (12:31)
--- NOTE | 2019-10-08 18:23 | IPN ---
DATE: 10/08/2019 The patient was seen and examined this morning during bedside rounds. The patient was on PRVC mode on the ventilator for most of the day yesterday as he had difficulty tolerating pressure support and he was also on dialysis for most of the day. The patient was briefly off the ventilator to trach collar when eating lunch but he did not feel up to eating dinner yesterday and so was on trach collar for dinner. Overnight he has not had any fevers and this morning he denies any new complaints. PHYSICAL EXAMINATION: Temperature 98.2, pulse 59, respirations 16, blood pressure 94/55, oxygen saturation 98% on the vent at 35% FiO2. General: The patient is morbidly obese, is lying in bed, alert and oriented. Does not appear to be in respiratory distress. HEENT: Normocephalic, atraumatic. Pupils reactive to light. Moist mucous membranes noted. The patient has a thick neck with a tracheostomy in place. Cardiac: Distant heart sounds, regular, S1, S2. Unable to appreciate any murmurs. Unable to palpate PMI due to body habitus. Pulmonary: Diminished breath sounds bilaterally with occasional rhonchi noted. Abdomen: Obese, soft, nontender, nondistended. Unable to palpate any masses. Extremities: There is no significant lower extremity edema noted bilaterally. No rashes noted. There are some tattoos. LABORATORY DATA: WBC 7.5, hemoglobin 10.1, platelets are 162. Chemistry: Sodium is 138, potassium is 3.8, chloride is 102, bicarbonate 27, BUN 18, creatinine is 4.54, glucose is 87. ASSESSMENT AND PLAN: The patient is a 49-year-old male with history of morbid obesity, OHS, history of chronic hypercarbic and hypoxemic respiratory failure status post tracheostomy, ESRD on HD, presented with altered mental status and acute on chronic hypercapnic respiratory failure as well as shock with presumed sepsis from pneumonia. The patient's acute hypercapnic respiratory failure has improved. The patient's shock has also improved and he has been off pressors with removal of his triple lumen catheter for a few days now. - The patient has been having difficulty with weaning off of the ventilator to trach collar. He is tolerating pressure support during the day although he does have some apneic episodes in the evening and occasionally during the day as well prompting him to be changed to a control mode on the ventilator with PRVC. Yesterday the patient did not tolerate weaning off of PRBC to pressure control and he was on PRVC for most of the day. - Will attempt to wean the patient to pressure support on the ventilator and to trach collar as tolerated during the day especially with his meals. The patient will likely need control mode of ventilation at night with concern for possible central apneas and he therefore will need to be discharged likely to a facility with ventilator capabilities for continued weaning. - Continue with antibiotics. The patient is on day #7 of total antibiotics with Zosyn. His sputum culture had grown Proteus which was sensitive to the Zosyn. Would continue as per the primary team but can likely complete a 7-day course. - Continue with aspiration precautions and head of bed elevations particularly with eating. DVT prophylaxis on before food with Eliquis. FULL CODE. The patient will likely need placement at a facility capable of hemodialysis and ventilator for a chronic trach.
[2019-10-08] MEDS: PRAMIPEXOLE (MIRAPEX) 0.125 MG TAB PO SCH (20:17)
[2019-10-09] VITALS (20 sets, daily range): BP systolic 77–124; BP diastolic 39–64; O2SAT 98–100
[2019-10-09] MEDS: ALPRAZolam 0.5 MG TAB PO PRN ×3 (03:36→22:16)
[2019-10-09] MEDS: PERCOCET 5MG/325MG TAB PO PRN ×3 (03:37→22:17)
[2019-10-09 04:30] LABS: HEMATOCRIT 30.5 % (42.0-52.0); HEMOGLOBIN 9.5 g/dl (13.5-17.5); MEAN CORPUSCULAR HEMOGLOBIN 33.6 pg (27.0-33.0); MEAN CORPUSCULAR HGB CONC 31.1 g/dl (32.0-36.5); MEAN CORPUSCULAR VOLUME 107.8 fl (80.0-96.0); PLATELET COUNT, AUTOMATED 161 10^3/uL (150-450); RED BLOOD COUNT 2.83 10^6/uL (4.30-6.10)
[2019-10-09 04:48] LABS: CALCIUM LEVEL 9.4 MG/DL (8.5-10.1); CREATININE FOR GFR 6.22 MG/DL (0.70-1.30); GLOMERULAR FILTRATION RATE 10.3 (>60); MAGNESIUM LEVEL 1.9 MG/DL (1.8-2.4); PHOSPHORUS LEVEL 5.7 MG/DL (2.5-4.9); POTASSIUM SERUM 4.1 MEQ/L (3.5-5.1)
[2019-10-09] MEDS: SLF 3 ML SYR IV SCH ×3 (05:19→20:27)
[2019-10-09] MEDS: (RENVELA) SEVELAMER **CARBONate** 800 MG TAB PO SCH ×3 (06:34→18:00)
[2019-10-09] MEDS: SENOKOT S TAB PO SCH ×2 (06:35→20:27)
[2019-10-09] MEDS: DOCUSATE SODIUM 100 MG CAP PO SCH (06:36)
[2019-10-09] MEDS: APIXABAN 2.5 MG TAB (ELIQUIS) PO SCH ×2 (06:36→20:26)
[2019-10-09] MEDS: IPRATROPIUM 0.5MG/ALBUTEROL 2.5MG INH SOL UD 3ML (DUONEB)(J7620) INH SCH ×2 (07:40→19:33)
--- NOTE | 2019-10-09 12:48 | IPNPDOC ---
Text Note Date of Service The patient was seen on 10/09/19. NOTE Subjective: -No complaints this morning, depressed mood. Objective: Vitals: see below, afebrile, hemodynamically stable off pressors General: Patient awake, alert, morbidly obese man HEENT: PERRLA, EOMI, laying in bed with trach connected to vent Cardiac: RRR, no murmurs Pulm: Diffuse rhonchi as before, diminished throughout without hernan wheezing or crackles Abdomen: Morbidly obese, soft, nontender, nondistended, normoactive sounds Extremities: No cyanosis, no swelling, no LE edema, WWP Neurologic: Nonfocal, moves all extremities, no facial droops, AOx3 Skin: No rashes, jaundice with occasional ecchymoses. Labs: Reviewed. Stable Micro: Grew proteus which is a gram negative, with gram stain showing mostly gram positive cocci in pairs, chains and clusters. MRSA negative. Assessment: Patient is 49 years old man with morbid obesity, hyperventilation syndrome, chronic hypercapnic hypoxemic respiratory failure status post tracheostomy, end- stage renal diseases presented hospital with acute on chronic respiratory failure and AMS and found to be severely hypercarbic requiring escalation from his home trilogy to the vent, antibiotics for presumed PNA c/b shock and NSVT. Septic shock 2/2 pneumonia: Presumed active infection with thus far negative blood cultures and now pending sputum culture -s/p vasopressors, with shock now resolved -With resolved leukocytosis and elevated procalcitonin -Sputum grew proteus which is a gram negative, with gram stain showing mostly gram positive cocci in pairs, chains and clusters. MRSA negative. --> given the mixed roberto picture in this sample and history of pseudomonas --> s/p 7d of zosyn, completed 10/08/2019 -BCx were negative Acute and chronic respiratory failure with hypercapnia: On ventilator. -No DVTs on LE doppler venous ultrasound -Given the history of chronic pulmonary embolism with history of chronic DVTs Dr. Lopez (molasses and caramel operator) recommended him to be started on Eliquis 2.5 mg twice a day empirically that he is now on -Respiratory PCR panel was negative -His respitarory status was not well managed on the trilogy and was transitioned to the vent by Dr. Estrada and will most likely need chronic ventilator and now failed PSV mode and will need chronic vent placement which would mean moving far away from [place]. Will need to discuss with patient and Dr. Baer. -treating PNA per above -Patient requesting to have trach changed by Dr. Ortega, while here. Will reach out to Dr. Ortega when he returns if patient is still in the hospital V. tach: Resolved -Most likely secondary to infection and fever superimposed with electrolytes imbalance and acute on chronic respiratory failure with severe pulmonary hypertension -Continue amiodarone PO (ESRD (end stage renal disease) on dialysis -Follows with Dr. Curtis, nephrology on board, was having HD this AM when I saw him -On discussion of his episodic hypotension, Dr. Curtis did not see the need for midodrine and to give some fluids if persistently hypotensive. Metabolic encephalopathy: Resolved, was secondary to acute hypercapnic hypoxemic respiratory failure -Continue ventilator per pulmonology Atrial fibrillation: Was initially not on anticoagulation due to perinephric bleeding before when he was on warfarin, now started on Eliquis -Due to high risk of DVT and PE we started Eliquis -on amiodarone Morbid obesity -Pickwickian syndrome with obesity hypoventilation syndrome -Elizabeth lift at baseline at [facility] Keep Home chronically -Patient is a candidate for bariatric surgery but has poor reserve and likely a poor surgical candidate and would need medical optimization before he would be c onsidered. Depression: Increased his lexapro from 10 to 15mg DVT ppx: on eliquis Diet: 2g sodium Dispo: ICU on vent, to discuss on rounds how he has become vent dependent and this affects placement at this time as he is vent and HD dependent and technically medically optimized for discharge, with the only thing that we are actively trying to see if he can come off the vent without much success at this time. VS,Fishbone, I+O VS, Fishbone, I+O Laboratory Tests 10/09/19 04:02 Vital Signs Date Time Temp Pulse Resp B/P (MAP) Pulse Ox O2 Delivery O2 Flow Rate FiO2 10/09/19 07:40 54 12 98 35 10/09/19 06:23 98.3 101/58 (76) 10/09/19 04:20 Ventilator I&O- Last 24 Hours up to 6 AM 10/09/19 06:00 Intake Total 170 ml Output Total 0 ml Balance 170 ml ELTON BARAJAS MD Oct 09, 2019 08:38
[2019-10-09] MEDS: AMIODARONE 200 MG TAB (PACERONE) PO SCH (13:19)
[2019-10-09] MEDS: ESCITALOPRAM OXALATE 5MG TABLET (LEXAPRO) PO SCH (13:20)
--- NOTE | 2019-10-09 18:35 | IPN ---
DATE: 10/08/2019 Mr. Richard is seen this morning on his bedside. He remains on the ventilator and without any significant environmental change analyst the last 24 hours. He was dialyzed yesterday and his volume status remains well-compensated. He denies any new complaints. Medications have been reviewed and no changes are noted. PHYSICAL EXAMINATION: Temperature 98 degrees Fahrenheit, heart rate 60 per minute and respiratory rate 12 per minute. Blood pressure about 97/50 mmHg and oxygen saturation 98% on the ventilator. His head is atraumatic. Neck is supple and jugular venous distention (JVD) difficult to be assessed. Tracheostomy is in place which is hooked to the ventilator. Heart sounds are regular. Lungs have good bilateral air entry. Abdomen is obese, soft and nontender and bowel sounds are normal. Extremities have no cyanosis or clubbing. Right forearm arteriovenous (AV) fistula is patent but bruit is weak. He has a Perma-Cath in his left upper chest near the shoulder. Neurologically, he is awake and at his baseline mentation. LABORATORY DATA: Today's laboratories show WBC count 7.5, hemoglobin 10.1 and hematocrit 32.3. Platelets 162. Sodium 138, potassium 3.8, CO2 27, BUN 18 and creatinine 4.54. Calcium 9.3 and magnesium 1.9. PROBLEMS: 1. End-stage renal disease. The patient was dialyzed yesterday and next dialysis will be scheduled for Wednesday. We will evaluate him again tomorrow for the need for dialysis. At this point, there is no emergent need for dialysis today. 2. Hypotension. This is chronic and his blood pressure is stable at about baseline. He is not on pressors at present. 3. Anemia. His anemia is stable and we will continue to manage with dialysis. He will be given Aranesp 200 mcg once a week with dialysis. 4. Right arm arteriovenous (AV) fistula nonfunctioning. His fistula could not be used and he had a Perma-Cath placed. I will discuss with Dr. Ybarra to do a fistulogram and possible intervention if needed. 5. Respiratory failure. This is multifactorial and chronic. He remains on the ventilator at this point.
[2019-10-09] MEDS: PRAMIPEXOLE (MIRAPEX) 0.125 MG TAB PO SCH (20:26)
[2019-10-10] VITALS (8 sets, daily range): BP systolic 103–130; BP diastolic 55–69; O2SAT 100
[2019-10-10 05:40] LABS: HEMATOCRIT 31.2 % (42.0-52.0); HEMOGLOBIN 9.8 g/dl (13.5-17.5); MEAN CORPUSCULAR HEMOGLOBIN 33.3 pg (27.0-33.0); MEAN CORPUSCULAR HGB CONC 31.4 g/dl (32.0-36.5); MEAN CORPUSCULAR VOLUME 106.1 fl (80.0-96.0); PLATELET COUNT, AUTOMATED 168 10^3/uL (150-450); RED BLOOD COUNT 2.94 10^6/uL (4.30-6.10)
[2019-10-10] MEDS: (RENVELA) SEVELAMER **CARBONate** 800 MG TAB PO SCH ×3 (06:04→18:00)
[2019-10-10] MEDS: SLF 3 ML SYR IV SCH ×3 (06:04→21:08)
[2019-10-10] MEDS: PERCOCET 5MG/325MG TAB PO PRN ×3 (06:05→22:43)
[2019-10-10] MEDS: ALPRAZolam 0.5 MG TAB PO PRN ×3 (06:05→22:42)
[2019-10-10] MEDS: SENOKOT S TAB PO SCH ×2 (06:06→21:00)
[2019-10-10] MEDS: DOCUSATE SODIUM 100 MG CAP PO SCH (06:06)
[2019-10-10] MEDS: APIXABAN 2.5 MG TAB (ELIQUIS) PO SCH ×2 (06:06→21:07)
[2019-10-10 06:09] LABS: CALCIUM LEVEL 9.4 MG/DL (8.5-10.1); CREATININE FOR GFR 7.48 MG/DL (0.70-1.30); GLOMERULAR FILTRATION RATE 8.4 (>60); MAGNESIUM LEVEL 2.1 MG/DL (1.8-2.4); POTASSIUM SERUM 4.1 MEQ/L (3.5-5.1)
--- NOTE | 2019-10-10 07:48 | IPN ---
DATE OF VISIT: 10/09/2019 Mr. Richard is seen this morning on his bedside. He remains on the ventilator and essentially no change in his overall condition. PHYSICAL EXAMINATION: Temperature 98.3 degrees Fahrenheit, heart rate 54 per minute and respiratory rate 12 per minute. Blood pressure is 112/58 mmHg and oxygen saturation 98% on the ventilator. Head is atraumatic. Neck veins impossible to be assessed. Tracheostomy is in place connected to the ventilator. His heart sounds are distant and regular. Lungs have diminished breath sounds, but I do not hear any wheezing or rales. His exam is quite limited. Abdomen obese, soft and nontender and bowel sounds are normal. Extremities have no pitting edema and no cyanosis or clubbing. Neurologically he is at his baseline mentation. Today's labs show WBC count 8.0, hemoglobin 9.5 and hematocrit 30.5. Platelets 161. Sodium 138, potassium 4.1, chloride 101, CO2 26, BUN 26 and creatinine 6.22. Calcium 9.4 and phosphorus 5.7. PROBLEMS: 1. End-stage renal disease. The patient is regularly dialyzed on Wednesday, and Wednesday schedule. He was dialyzed on Wednesday and will be scheduled for next dialysis tomorrow. I do not feel that emergent dialysis is indicated today. 2. Respiratory failure. This is a chronic issue and now he is requiring ventilator support. His volume status is reasonably well-compensated and we will try our efforts to remove as much fluid as he could tolerate. His blood pressure has been quite low and we could not remove fluid aggressively. Tomorrow will try to remove 3-4 liters as tolerated. 3. Anemia. His anemia is essentially stable and no urgent intervention is indicated. He will be given Aranesp 200 mcg this week. 4. Hyperphosphatemia. This is mild and related to noncompliance with his meds as he has been declining to take his Renvela. I have discussed with the patient and compliance advised. 5. Super morbid obesity. This is a chronic and unchanged issue. Unfortunately, he has very, very limited physical activity and his appetite has been good. His volume status is well-compensated and his weight is probably at his baseline. He is not a candidate for gastric bypass or any other intervention. We will continue with his dietary restrictions as much as he will follow.
[2019-10-10] MEDS: IPRATROPIUM 0.5MG/ALBUTEROL 2.5MG INH SOL UD 3ML (DUONEB)(J7620) INH SCH ×2 (08:05→19:41)
--- NOTE | 2019-10-10 09:09 | IPN ---
DATE OF SERVICE: 10/09/2019 Mr. Richard was seen and examined this morning during bedside rounds. He is currently on pressure support mode on the ventilator yesterday and overnight, was tolerating well. This morning he states he is feeling really tired and has no will to get out of bed. He has no complaints, is not very communicative. There were no overnight events documented. He has no complaints today. PHYSICAL EXAMINATION: Temperature 98.3, pulse 54, respirations 12, blood pressure 101/58 (76), pulse oximetry 98% on pressure support with an FiO2 of 35. GENERAL: This is a 49-year-old morbidly obese male lying in bed, alert and oriented, does not appear in acute distress. He was not very conversant this morning, which is baseline for him. HEENT: Atraumatic, normocephalic. Pupils are equal, round and reactive. Moist mucous membranes. Very thick neck with a tracheostomy in place. No discharge or irritation noted. CARDIAC: Very distant heart sounds, difficult to appreciate any murmurs or rubs. Distant S1 and S2 sounds appreciated. Regular rate. PULMONARY: Diminished breath sounds bilaterally. No audible rhonchi appreciated. ABDOMEN: Morbidly obese abdomen. Nontender, nondistended and soft. LOWER EXTREMITIES: No lower extremity edema or calf tenderness noted. He has multiple tattoos. LABORATORIES: Hematology: WBC 8.0, hemoglobin 9.5, hematocrit 30.5, platelets 161. Chemistries: Sodium 138, potassium 4.1, chloride 101, carbon dioxide 26, anion gap 11, BUN 26, creatinine 6.22, GFR 10.3, fasting glucose 91, calcium 9.4, phosphorous 5.7, magnesium 1.9. ASSESSMENT/PLAN: This is a 49-year-old male with a history of morbid obesity, OHS, history of chronic hypercapnic and hypoxic respiratory failure status post tracheostomy, end stage renal disease on hemodialysis, who presented with altered mental status and acute on chronic hypercapnic respiratory failure as well as shock with presumed sepsis from pneumonia. Mr. Richard's acute hypercapnic respiratory failure and shock have resolved. He has been off pressors since 10/03 and his triple lumen catheter has been removed. The patient has been having difficulty from weaning off the ventilator to his trach collar. He has been tolerating pressure support during the day with some apneic episodes in the evening. Last night he did not have to be changed to PRVC mode. Upon discharge he will need to be discharged to a place that has a facility that is capable for ventilator support. He will need to be on pressure support during the day, trach collars for feeds and then PRVC at bedtime due to his apneic episodes. The patient has completed seven days of antibiotics for he grew Proteus on the sputum culture. Continue aspiration precautions and head of the bed elevation, particularly with eating. Deep vein thrombosis (DVT) prophylaxis with Eliquis. FULL CODE. DISPOSITION: Will likely need placement in a facility capable of hemodialysis and ventilator for chronic trach. ILeah, have conducted an independent examination of the patient and agree with the above plan as detailed by the resident and discussed during rounds. MARGO
[2019-10-10] MEDS ORDERED: HEPARIN 1,000 UNITS/ML 10ML VIAL (FOR RADIOLOGY& DIALYSIS ONLY) IV ONE (09:30)
[2019-10-10] MEDS ORDERED: HEPARIN 1,000 UNITS/ML 10ML VIAL (FOR RADIOLOGY& DIALYSIS ONLY) XX ONE (09:30)
--- NOTE | 2019-10-10 11:13 | MHCRPDOC ---
[facility] Consultation Consultation DATE OF CONSULTATION: 10/10/19 Chief Complaint "..." History of Present Illness The patient a 49-year-old man with a significant history of obesity, end-stage renal failure, currently on a ventilator permanently due to acute respiratory failure, is asked for consult by his internal medicine provider. He has been on the ICU service for close to several weeks. Pending placement in a facility as he currently lives in [facility], but is unable to be accommodated due to his need for persistent ventilator. The patient notably has been complaining of some depression; however, when I attempted to meet with him, he is unable to speak due to his tracheostomy and ventilator, only being able to yes or no questions. Previous assessments from Dr. Carlson in June as well as a 2013 psychiatric admission are taken in order to understand his psychosocial aspects with yes and no being primarily screeners for his depression. He reports low mood, loss of interest, difficulty engaging with PT and feelings of being "afraid" of his changes per report. He has had notable adjustment problem since being admitted. Review Of Systems Depression: As above. Anxiety: The patient denies any excessive worry associated with physical symptoms. They deny any experience of discreet panic in the past. Deepika: The patient denies any episodes of euphoria/dysphoria associated with decreased need for sleep, hedonism, talkatively or impulsivity lasting longer than 5 days. Psychotic: The patient denies any experiences of auditory or visual hallucinations. They deny any episodes of paranoia or delusional thinking in the past Trauma: reports intrusive thoughts about different medical procedures of coincidence and hypervigilance. Borderline: Unable to screen at this time. Past Psychiatric History Has a history of a previous admission with a history of depression, currently on Lexapro 15 mg, recommend by Dr. Carlson in June 2019. He had been admitted for suicidal ideation in 2012. No history of suicide attempts. He had attended [facility] outpatient for a short time with Dr. Carlson, but no longer follows. Allergies Please see below. Family Psychiatric History Unclear if any family history. Social History The patient reportedly lives in [facility], had previously been with a son; however, he has been . He has no significant legal problems that is noted. He is currently disabled. Substance Abuse History The patient denies any excessive alcohol use, tobacco or illicit drug use, denies history of substance use treatment. Medical History Has a significant history of anemia, hypercapnia, end-stage renal failure and anemia. Mental Status Examination General: Poor hygiene Speech: None due to tracheostomy Thought processes: Appears linear MSK: Smooth and coordinated gait, no signs of tremors or involuntary orofacial movements Thought content: Reports hopelessness Abstract reasoning, and computation: Appears Intact Description of associations: Appears intact Description of abnormal or psychotic thoughts: Denies any suicidal or homicidal ideation. Denies any auditory or visual hallucinations. Does not appear to be responding to internal stimuli. Judgment: fair Insight: fair Orientation: Alert and orientated 3 Cognition: Grossly normal Recent and remote memory: Intact Attention span and concentration: Intact Fund of knowledge: Unable to determine Mood: "..." Affect: Mildly dysthymic with a constrict range, but still reactive Diagnoses Unspecified depressive disorder. Rule out adjustment versus MDD versus depression due to medical condition. Unspecified trauma stress or related disorder. Rule out ICU associated PTSD. Assessment and Plan Recommend continuing patient's Lexapro 15 mg daily. Due to extreme renal failure, he is currently on Mirapex 0.125 mg daily for restless legs which might be a good augmentation agent to increase to 0.25 mg as an off label agent especially for those with depression that has been resistant to treatment; however, changing his antidepressant or increasing his Lexapro do have considerable risk due to his poor response secondary to possible end-stage renal disease accumulation. The patient was discussed with these potential risks and different options of which he selected the pramipexole, increased which in my opinion would be the most judicious way of attempting to treat his depression; however, observation and further stabilization could help as aggressive treatment could result in him becoming more medically compromised. Does not meet involuntary criteria as denies any suicidal or homicidal ideation. Has chronic risk factors for depression and very few clinical risks factors. Does not meet criteria for voluntary inpatient treatment on a psychiatric unit as he is not am bulatory. Time Spent 30 minutes. Vital Signs Vital Signs Date Time Temp Pulse Resp B/P (MAP) Pulse Ox O2 Delivery O2 Flow Rate FiO2 10/10/19 08:05 56 16 10/10/19 08:05 92 35 10/10/19 08:05 Ventilator 100.0 10/10/19 08:00 96.3 130/69 (89) Laboratory Data 24H Labs Laboratory Tests 2 10/10/19 04:48: Nucleated Red Blood Cells % (auto) 0.0, Anion Gap 12, Glomerular Filtration Rate 8.4L, Calcium Level 9.4, Magnesium Level 2.1 Home Medications Current Medications Current Medications Medications (Trade) Dose Ordered Sig/Alicia Route PRN Reason Start Time Stop Time Status Last Admin Dose Admin Acetaminophen (Tylenol Tab) 650 mg Q4H PRN PO PAIN / FEVER 09/30/19 17:30 10/07/19 11:49 Acetaminophen (Tylenol Tab) 650 mg Q6HP PRN PO PAIN / FEVER 10/01/19 15:30 Cancel Albuterol Sulfate (Proventil, Ventolin Hfa) 2 puff Q4H PRN INH SOB/WHEEZING 09/30/19 17:30 10/06/19 01:11 Albuterol/ Ipratropium (Duoneb (Ipr 0.5mg/Alb 2.5mg)) 3 ml RBID INH 09/30/19 20:00 10/10/19 08:05 Alprazolam (Xanax) 1 mg Q6H PRN PO ANXIETY 09/30/19 17:30 10/10/19 06:05 Amiodarone HCl (Pacerone, Cordarone) 200 mg DAILY@1200 PO 09/30/19 12:00 10/09/19 13:19 Amiodarone HCl 150 mg/IV Miscellaneous Supplies 100 ml @ 600 mls/hr STAT STAT IV 10/01/19 14:02 10/01/19 14:21 DC 10/01/19 14:17 Apixaban (Eliquis) 2.5 mg BID PO 10/01/19 21:00 10/10/19 06:06 Bisacodyl (Dulcolax Suppository) 10 mg DAILY PRN IN CONSTIPATION 09/30/19 17:30 Carvedilol (COReg) 6.25 mg BID@1200,2000 PO 09/30/19 20:00 10/01/19 15:23 DC 10/01/19 13:03 Carvedilol (COReg) 6.25 mg QID PO 10/01/19 15:30 10/02/19 03:35 DC 10/01/19 20:29 Ceftaroline Fosamil 200 mg/ Dextrose 50 ml @ 50 mls/hr Q12H IV 10/01/19 20:00 10/04/19 07:15 DC 10/03/19 20:00 Darbepoetin Jairo (Aranesp (Dialysis Use)) 200 mcg HD IV 10/07/19 11:15 Dextrose (Dextrose 50%) 50 ml STAT STAT IV 10/01/19 15:57 10/01/19 15:59 DC 10/01/19 17:38 Docusate Sodium (Colace) 200 mg DAILY PO 10/01/19 09:00 10/09/19 06:36 Escitalopram Oxalate (Lexapro) 10 mg DAILY@1200 PO 09/30/19 12:00 10/08/19 13:27 DC 10/08/19 12:31 Escitalopram Oxalate (Lexapro) 15 mg DAILY@1200 PO 10/09/19 12:00 10/09/19 13:20 Guaifenesin/ Dextromethorphan (Robitussin Dm) 10 ml Q4H PRN PO COUGH/SECRETIONS 09/30/19 17:30 10/05/19 20:53 Heparin Sodium (Porcine) (Heparin) 5,000 units Q12H SC 09/30/19 21:00 10/01/19 15:38 DC 10/01/19 09:27 Home Med (Med Rec Complete!) ASDIRECTED XX 09/30/19 13:45 09/30/19 13:39 DC Insulin Human Regular (HumuLIN R INSULIN) 10 units STAT STAT IV 10/01/19 15:57 10/01/19 15:59 DC 10/01/19 17:38 Meropenem 1 gm/IV Miscellaneous Supplies 50 ml @ 100 mls/hr Q8H IV 10/01/19 15:45 UNV Meropenem 500 mg/ IV Miscellaneous Supplies 50 ml @ 100 mls/hr Q24H IV 10/01/19 18:00 10/04/19 07:15 DC 10/03/19 21:19 Metoprolol Tartrate (Lopressor) 5 mg STAT STAT IV 10/01/19 14:21 10/01/19 14:22 DC Non-Formulary Medication ( See Comment Field Below ) CHECK TO SEE IF THE PATIENT... DAILY@1600 XX 10/02/19 16:00 Cancel Norepinephrine Bitartrate 4 mg/ Dextrose 496 ml @ 74.4 mls/hr Q6H40M IV 10/02/19 01:15 10/02/19 03:53 DC 10/02/19 01:00 Norepinephrine Bitartrate 8 mg/ Dextrose 500 ml @ 15 mls/hr Q24H IV 10/03/19 01:00 10/08/19 08:52 DC 10/03/19 20:00 Norepinephrine Bitartrate 8 mg/ Dextrose 500 ml @ 15 mls/hr Q24H IV 10/02/19 08:15 10/02/19 08:16 DC Norepinephrine Bitartrate 8 mg/ Dextrose 508 ml @ 15 mls/hr Q24H IV 10/02/19 00:53 10/03/19 00:59 DC 10/02/19 03:55 Oseltamivir Phosphate (Tamiflu) 30 mg SuTuTh@1800 PO 10/01/19 18:00 10/05/19 18:01 DC 10/05/19 17:25 Oxycodone/ Acetaminophen (Percocet 5mg/ 325mg Tablet) 1 tab Q6H PRN PO PAIN 09/30/19 17:30 10/10/19 06:05 Piperacillin Sod/ Tazobactam Sod 2.25 gm/Dextrose 50 ml @ 100 mls/hr Q12H IV 10/04/19 08:00 10/08/19 10:41 DC 10/08/19 08:37 Piperacillin Sod/ Tazobactam Sod 2.25 gm/Dextrose 50 ml @ 100 mls/hr Q8H IV 10/01/19 16:00 10/01/19 15:42 DC Piperacillin Sod/ Tazobactam Sod 3.375 gm/Dextrose 50 ml @ 50 mls/hr Q6H IV 10/04/19 08:00 10/04/19 07:31 DC Pramipexole Dihydrochloride (Mirapex) 0.125 mg QHS PO 09/30/19 21:00 10/09/19 20:26 Senna/Docusate Sodium (Senokot S) 2 tab BID PO 09/30/19 21:00 10/10/19 06:06 Sevelamer Carbonate (Renvela) 4,800 mg WM PO 09/30/19 18:00 10/09/19 13:19 Sodium Bicarbonate 150 meq/Dextrose/Water 1,150 ml @ 250 mls/hr Q4H36M IV 10/01/19 17:00 10/01/19 20:59 DC 10/01/19 18:24 Sodium Biphosphate/ Sodium Phosphate (Fleet Enema) 1 ea DAILY PRN IN CONSTIPATION 09/30/19 17:30 Sodium Chloride (Saline Lock Flush) 2 ml ASDIRECTED PRN IV SEE LABEL COMMENTS 10/02/19 14:30 Sodium Chloride (Saline Lock Flush) 2 ml SLF IV 10/02/19 22:00 10/10/19 06:04 Sodium Chloride (Saline Lock Flush) 10 ml ASDIRECTED PRN IV SEE LABEL COMMENTS 10/02/19 14:30 10/06/19 22:24 DC Sodium Chloride (Saline Lock Flush) 10 ml SLF IV 10/02/19 22:00 10/06/19 22:24 DC 10/06/19 05:07 Vancomycin HCl 1000 mg/IV Miscellaneous Supplies 1 each/ Dextrose 270 ml @ 270 mls/hr HD IV 10/02/19 15:30 10/01/19 15:43 DC Vitamin D (Drisdol) 50,000 units Fr@0900 PO 10/06/19 09:00 10/06/19 09:47 Scheduled Amiodarone Hcl (Pacerone) 200 Mg Tab, 200 MG PO DAILY, (Reported) TAKES AT 1200 Carvedilol (Coreg) 6.25 Mg Tab, 6.25 MG PO BID, (Reported) TAKES AT 1200 AND 2000 Docusate Sodium (Colace) 100 Mg Capsule, 200 MG PO DAILY, (Reported) TAKES AT 1100 Ergocalciferol (Vitamin D2) (Drisdol) 50,000 Unit Cap, 50,000 UNIT PO 1XWK, (Reported) WEDNESDAY AT 1100 Escitalopram Oxalate (Escitalopram Oxalate) 10 Mg Tablet, 10 MG PO DAILY, (Reported) 1200 Ferric Citrate (Auryxia) 210 Mg Tablet, 630 MG PO WM, (Reported) TAKES AT 0600, 1200, AND 1700 ON WEDNESDAY, WEDNESDAY AND WEDNESDAY (DIALYSIS DAYS) AND TAKES AT 0800, 1130, AND 1630 ON WEDNESDAY, WEDNESDAY, WEDNESDAY AND WEDNESDAY. Gabapentin (Gabapentin) 300 Mg Capsule, 300 MG PO TID, (Reported) 1200, 1600, 2000 Ipratropium/Albuterol Sulfate (Iprat-Albut 0.5-3(2.5) mg/3 ml) 1 Maria G Maria G, 1 MARIA G INH BID, (Reported) TAKES AT 0500 AND 1700 ON WEDNESDAY, WEDNESDAY AND WEDNESDAY (DIALYSIS DAYS) AND TAKES AT 0800 AND 2000 ON WEDNESDAY, WEDNESDAY, WEDNESDAY AND WEDNESDAY. Patiromer Calcium Sorbitex (Veltassa) 8.4 Gm Powd.pack, 8.4 GM PO 1XWK, (Reported) WEDNESDAY Pramipexole Di-HCl (Mirapex) 0.125 Mg Tablet, 0.125 MG PO QHS, (Reported) Sennosides/Docusate Sodium (Senna-S Tablet) 1 Tab Tab, 2 TAB PO BID, (Reported) Sevelamer Carbonate (Renvela) 800 Mg Tab, 4,800 MG PO TID, (Reported) TAKES AT 0800, 1200, AND 1700 ON NON-DIALYSIS DAYS (WED, WED, WED, AND WED). TAKES AT 0500, 1200, 1700 ON , , SAT Vit B Comp No.3/Folic/C/Biotin (Nephro-Shante Rx Tablet) 1 Tab Tab, 1 TAB PO DAILY, (Reported) TAKES AT 1200 Scheduled PRN Acetaminophen (Acetaminophen) 325 Mg Tab, 650 MG PO Q4H PRN for PAIN / FEVER, (Reported) Albuterol Sulf (Albuterol Sulfate) 2.5 Mg/3 Ml Nebu, 2.5 MG INH Q2H PRN for COPD, (Reported) Albuterol Sulfate (Proventil Hfa) 6.7 Gm Hfa.aer.ad, 2 PUFF INH Q4H PRN for SOB/WHEEZING, (Reported) Alprazolam (Alprazolam) 1 Mg Tablet, 1 MG PO Q6H PRN for ANXIETY, (Reported) Bisacodyl (Dulcolax) 10 Mg Supp.rect, 10 MG IN DAILY PRN for CONSTIPATION, (Reported) Guaifenesin/Dextromethorphan (Guaifenesin Dm Syrup) 5 Ml Syrup, 10 ML PO Q4H PRN for COUGH/SECRETIONS, (Reported) Oxycodone HCl (Oxycodone HCl) 5 Mg Tablet, 5 MG PO 3XW PRN for PAIN, (Reported) AT 0500 ON , , SAT. Oxycodone HCl/Acetaminophen (Oxycodone-Acetaminophen 5-325) 1 Each Tablet, 2 TAB PO 3XW PRN for PAIN, (Reported) GIVE AT 0500 BEFORE DIALYSIS Oxycodone HCl/Acetaminophen (Oxycodone-Acetaminophen 5-325) 1 Each Tablet, 1 TAB PO Q6H PRN for PAIN, (Reported) Phenyleph/Shark Oil/Mo/Petrol (Preparation H Ointment) 28 Gm Oint.appl, 1 APPLIC IN BID PRN for HEMORRHOIDS, (Reported) Sodium Phosphate,Weakley-Dibasic (Enema) 133 Ml Enema, 1 MAHI IN DAILY PRN for CONSTIPATION, (Reported) Allergies Coded Allergies: moxifloxacin (Verified Allergy, Intermediate, RASH, 07/05/19) codeine (Verified Allergy, Unknown, 09/30/19) valsartan (Verified Allergy, Unknown, 09/30/19) CAESAR RAJPUT DO Oct 10, 2019 11:13
--- NOTE | 2019-10-10 11:31 | IPN ---
DATE OF SERVICE: 10/10/2019 Mr. Richard was seen and examined this morning during bedside rounds. Patient appears slightly depressed this morning and was not conversant. Once again overnight he was switched from pressure support mode to PRVC mode on the ventilator due to apneic episodes. He is having dialysis this morning at bedside to attempt to remove 3 liters. He tolerated 2 liter removal at his last dialysis session. The patient was unable to participate in the review of systems questioned for, he was not very conversant. PHYSICAL EXAMINATION: VITALS: Temperature 96.3, pulse 54, respirations 16, blood pressure 130/69 (89), pulse oximetry 100% on ventilator with an FiO2 of 35%. GENERAL: This is a 49-year-old morbidly obese male lying in bed, alert and oriented, does not appear in acute distress. He continues to be not very conversant this morning and slightly depressed. HEENT: Atraumatic, normocephalic. Moist mucous membranes with very thick neck with tracheostomy in place. No discharge or irritation noted. CARDIAC: Very distant heart sounds, difficult to appreciate any murmurs, rubs or gallops. Very distant S1 and S2 sounds appreciated as well. Regular rate. PULMONARY: Diminished breath sounds bilaterally. No audible wheezing, rhonchi or rales. ABDOMEN: Morbidly obese abdomen. Nontender, nondistended and soft. LOWER EXTREMITIES: No lower extremity edema or calf tenderness. He has multiple tattoos. LABORATORIES: Hematology: WBC 7.0, hemoglobin 9.8, hematocrit 31.2, platelets 168. Chemistries: Sodium 136, potassium 4.1, chloride 101, carbon dioxide 23, BUN 33, creatinine 7.48, calcium 9.4, magnesium 2.1. ASSESSMENT/PLAN: This is a 49-year-old male with a history of morbid obesity with OHS, history of chronic hypercapnic and hypoxic respiratory failure status post tracheostomy, end stage renal disease on hemodialysis, who presented with altered mental status and acute on chronic hypercapnic respiratory failure as well as shock and presumed sepsis from pneumonia. Mr. Richard's acute hypercapnic respiratory failure and shock have resolved. He has been off pressors since 10/03 and his triple lumen catheter has been removed thereafter. He continues to have difficulty being weaned off the ventilator to his trach collar. He is tolerating pressure support during the day, but continues to have apneic episodes in the evening. Last night he had to be switched to PRVC mode around 1900 hours due to apneic episode. We will continue with the PRVC while he is on hemodialysis. Once he has completed hemodialysis can consider switching him back to pressure support, which he tolerates very well during the daytime. Recommendations do include the elevation of the bed, possible out of bed for meals with the trach collar if possible. Physical therapy/occupational therapy (PT/OT) consult has been placed. Due to his depressed mood and no drive to participate in exam on request. I do recommend a psych consult for his underlying depression. Recommendation upon discharge he will need to be discharged to a place that has ventilator support and hemodialysis capabilities. When he is at that location he will need to be on pressure support during the day, trach collars during meals, and PRVC at nighttime due to his apneic episodes. Sputum cultures were positive for protease and he has completed seven days of antibiotics. Continue aspiration precautions with head of the bed elevation, particularly with eating. Deep vein thrombosis (DVT) prophylaxis with Eliquis. FULL CODE. DISPOSITION: Will likely need placement in a facility capable of hemodialysis and ventilator for chronic trach. I, Leah Baer, have conducted an independent examination and history of the patient and agree with the above plan as detailed above by the resident and discussed during rounds. MARGO
[2019-10-10] MEDS: ESCITALOPRAM OXALATE 5MG TABLET (LEXAPRO) PO SCH (12:40)
[2019-10-10] MEDS: AMIODARONE 200 MG TAB (PACERONE) PO SCH (12:40)
--- NOTE | 2019-10-10 13:34 | IPNPDOC ---
Text Note Date of Service The patient was seen on 10/10/19. NOTE Subjective: Patient was seen and examined at the bedside. Patient reports that he's had an uneventful night. He denies any chest pain, shortness of breath or palpitations. Denies nausea, vomiting, abdominal pain, diarrhea or constipation. Patient does report feeling increased depression and has not work with physical therapy. He has been unmotivated to progress. We have advised him that he'll be evaluated by psychiatry for further assistance. Objective: Vitals (See below) General: Lying in bed, no acute distress, comfortable, flat affect, AAOx3 HEENT: NC, AT CVS: +S1S2 Lungs: Poor inspiratory effort, however, there does not appear to be auscultated rhonchi, rales or wheezing Abdomen: Soft, morbid obesity, no distention / tenderness Extremities: No significant pitting edema, - Calf tenderness Assessment and plan: Patient is 49 years old man with morbid obesity, hypoventilation syndrome, chronic hypercapnic hypoxemic respiratory failure s/p tracheostomy, ESRD on HD (TTS), who presented to the hospital with acute on chronic respiratory failure and AMS and found to be severely hypercarbic requiring escalation from his home trilogy to the vent, antibiotics for presumed PNA, complicated by shock and NSVT. Septic shock 2/2 pneumonia - Clinically patient has had improvement of his underlying infection - Remains hemodynamically stable and afebrile; s/p Pressor supprot - No leukocytosis; PCT elevated on admission - Sputum culture 10/03: Proteus Mirabilis - Blood cultures all negative; Viral panel 09/30: Negative - s/p 7 days of Zoysn; s/p Vancomycin Acute and chronic respiratory failure with hypercapnia; Now ventilator dependent - Respiratory PCR panel was negative - No DVTs on LE doppler venous ultrasound - Dr. Lopez (Cardiology); recommended Eliquis 2.5 BID; re: high risk of th romboembolism given prior history of Chronic PE / Chronic DVT - As an outpatient he was on chin that she at night; however, currently cannot be weaned off ventilator - Will require long-term ventilator management; however sites to facilitate this do not exist locally - Patient requesting to have trach changed by Dr. Ortega, while here. Will reach out to Dr. Ortega when he returns if patient is still in the hospital - Dr. Keyur on consultation - appreciate their input s/p V. tach - likely 2/2 infection and fever superimposed with electrolytes imbalance and acute on chronic respiratory failure with severe pulmonary hypertension - c/w amiodarone - Cardiology on consultation ESRD on HD (TTS) - Follows with Dr. Curtis, nephrology on board - Will hold off on introducing Midodrine at this time for hypotensive episodes; c/w fluid resuscitation if required s/p Metabolic encephalopathy - likely 2/2 acute hypercapnic hypoxemic respiratory failure - c/w ventilator per pulmonology Atrial fibrillation - Patient was initially was not on anticoagulation given his prior history of perinephric bleeding while on Coumadin - c/w rate / rhythm control with amiodarone - c/w Eliquis (re: high risk of DVT / PE) Morbid obesity - Pickwickian syndrome with obesity hypoventilation syndrome - Elizabeth lift at baseline at [facility] Home chronically - Patient is a candidate for bariatric surgery but has poor reserve and likely a poor surgical candidate and would need medical optimization before he would be considered. Depression - Patient has had his Lexapro increased - Will consult psychiatry for further evaluation / treatment DVT prophylaxis - c/w full anticoagulation with Eliquis Disposition: - Unfortunately will remain in the ICU until a facility to support his ventilator and hemodialysis becomes available VS,Fishbone, I+O VS, Fishbone, I+O Laboratory Tests 10/10/19 04:48 Vital Signs Date Time Temp Pulse Resp B/P (MAP) Pulse Ox O2 Delivery O2 Flow Rate FiO2 10/10/19 12:30 97.3 70 20 115/62 (79) 99 Trach Collar 40 10/10/19 08:05 100.0 I&O- Last 24 Hours up to 6 AM 10/10/19 06:00 Intake Total 325 ml Output Total 0 ml Balance 325 ml KINSEY HARVEY MD Oct 10, 2019 13:34
--- NOTE | 2019-10-10 18:31 | IPN ---
DATE: 10/10/2019 Mr. Richard is seen this morning on his bedside. He is currently being dialyzed in his room in intensive care unit. He remains on the ventilator. No significant change in his overall condition, but blood pressure has been better. PHYSICAL EXAMINATION: Temperature 96.3 degrees Fahrenheit, heart rate 56 per minute and respiratory rate 16 per minute. Blood pressure 130/69 mmHg and oxygen saturation 100%. His head is atraumatic. Neck is supple and tracheostomy is in place. Heart sounds are regular. Lungs have good bilateral air entry. Abdomen is obese, soft and nontender and bowel sounds are normal. Extremities have no cyanosis or clubbing. His right forearm arteriovenous (AV) fistula is currently not being used for dialysis. He has a new Perma-Cath on his left upper chest which is currently being used. LABORATORY DATA: Today's laboratories show WBC count 7.0, hemoglobin 9.8 and hematocrit 31.2. Platelets 168. Sodium 136, potassium 4.1, CO2 23, BUN 33 and creatinine 7.48. Glucose is 84 and calcium 9.4. PROBLEMS: 1. End-stage renal disease. The patient is being dialyzed and he is tolerating dialysis treatment well today. Perma-Cath is being used as his right forearm arteriovenous (AV) fistula is not usable. 2. Respiratory failure. The patient remains on the ventilator and we are trying to remove about 3-4 liters of fluid as tolerated. Last week, his blood pressure was low so we could not remove fluid any aggressively. Now, his blood pressure seems to be better and we are trying to remove as much as he can tolerate. It remains to be seen if it helps with his respiratory status. 3. Anemia. His anemia is chronic and stable and he will continue with Aranesp 200 mcg once a week.
[2019-10-10] MEDS: PRAMIPEXOLE (MIRAPEX) 0.125 MG TAB PO SCH (21:07)
[2019-10-11] VITALS: BP 109/58
[2019-10-11 04:00] VITALS: BP 107/56
[2019-10-11] MEDS: ALPRAZolam 0.5 MG TAB PO PRN ×3 (05:06→23:52)
[2019-10-11] MEDS: PERCOCET 5MG/325MG TAB PO PRN ×3 (05:07→23:53)
[2019-10-11] MEDS: SLF 3 ML SYR IV SCH ×3 (05:08→22:11)
[2019-10-11 05:44] LABS: HEMOGLOBIN 9.8 g/dl (13.5-17.5); MEAN CORPUSCULAR HEMOGLOBIN 32.6 pg (27.0-33.0); MEAN CORPUSCULAR HGB CONC 30.6 g/dl (32.0-36.5); MEAN CORPUSCULAR VOLUME 106.3 fl (80.0-96.0); PLATELET COUNT, AUTOMATED 161 10^3/uL (150-450); RED BLOOD COUNT 3.01 10^6/uL (4.30-6.10); WHITE BLOOD COUNT 6.5 10^3/uL (4.0-10.0)
[2019-10-11 05:58] LABS: CALCIUM LEVEL 9.9 MG/DL (8.5-10.1); CREATININE FOR GFR 5.24 MG/DL (0.70-1.30); GLOMERULAR FILTRATION RATE 12.6 (>60); POTASSIUM SERUM 3.9 MEQ/L (3.5-5.1)
[2019-10-11] MEDS: IPRATROPIUM 0.5MG/ALBUTEROL 2.5MG INH SOL UD 3ML (DUONEB)(J7620) INH SCH ×2 (07:08→19:57)
[2019-10-11] MEDS: (RENVELA) SEVELAMER **CARBONate** 800 MG TAB PO SCH ×3 (07:54→18:00)
[2019-10-11 08:00] VITALS: BP 117/55
[2019-10-11] MEDS: SENOKOT S TAB PO SCH ×2 (09:04→20:05)
[2019-10-11] MEDS: ACETAMINOPHEN TAB 650MG DOSE (2X325MG) PO PRN (09:04)
[2019-10-11] MEDS: DOCUSATE SODIUM 100 MG CAP PO SCH (09:04)
[2019-10-11] MEDS: APIXABAN 2.5 MG TAB (ELIQUIS) PO SCH ×2 (09:04→20:05)
[2019-10-11] MEDS: AMIODARONE 200 MG TAB (PACERONE) PO SCH (11:43)
[2019-10-11] MEDS: ESCITALOPRAM OXALATE 5MG TABLET (LEXAPRO) PO SCH (11:44)
[2019-10-11 12:00] VITALS: BP 123/56
--- NOTE | 2019-10-11 12:38 | IPNPDOC ---
Text Note Date of Service The patient was seen on 10/11/19. NOTE Subjective: Patient was seen and examined at the bedside. Patient was seen by psychiatrist yesterday who had advised to increase patient's dose of pramipexole. , Currently patient still feels slightly depressed. He denies chest pain. She is breath or palpitations. Denies nausea, vomiting, abdominal pain. Patient is still reluctant to work with any physical therapy. Objective: Vitals (See below) General: Lying in bed, no acute distress, comfortable, flat affect, AAOx3 HEENT: NC, AT CVS: +S1S2 Lungs: Again, his respiratory effort remains poor. However, there does not appear to be any rhonchi, rales or wheezing Abdomen: Patient is morbidly obese, nontender, nondistended. Remains soft Extremities: No calf tenderness is appreciated. There are no signs of pitting edema Assessment and plan: Patient is 49 years old man with morbid obesity, hypoventilation syndrome, chronic hypercapnic hypoxemic respiratory failure s/p tracheostomy, ESRD on HD (TTS), who presented to the hospital with acute on chronic respiratory failure and AMS and found to be severely hypercarbic requiring escalation from his home trilogy to the vent, antibiotics for presumed PNA, complicated by shock and NSVT. Septic shock 2/2 pneumonia - Clinically patient has had improvement of his underlying infection - Remains hemodynamically stable and afebrile; s/p Pressor support - No leukocytosis; PCT elevated on admission - Sputum culture 10/03: Proteus Mirabilis - Blood cultures all negative; Viral panel 09/30: Negative - s/p 7 days of Zoysn; s/p Vancomycin Acute and chronic respiratory failure with hypercapnia; Now ventilator dependent - Respiratory PCR panel was negative - No DVTs on LE Doppler venous ultrasound - Dr. Lopez (Cardiology); recommended Eliquis 2.5 BID; re: high risk of thromboembolism given prior history of Chronic PE / Chronic DVT - As an outpatient he was only on Trilogy at night; however, currently cannot be weaned off ventilator because of poor respiratory drive / periods of apnea - Will require long-term ventilator management; however sites to facilitate this do not exist locally - Patient requesting to have trach changed by Dr. Ortega, while here. Will reach out to Dr. Ortega when he returns if patient is still in the hospital - Dr. Baer on consultation - appreciate their input - Discussed with PFS about long-term acute care hospital placement s/p V. tach - likely 2/2 infection and fever superimposed with electrolytes imbalance and acute on chronic respiratory failure with severe pulmonary hypertension - c/w amiodarone - Cardiology on consultation ESRD on HD (TTS) - Follows with Dr. Curtis, nephrology on board - Will hold off on introducing Midodrine at this time for hypotensive episodes; c/w fluid resuscitation if required s/p Metabolic encephalopathy - likely 2/2 acute hypercapnic hypoxemic respiratory failure - c/w ventilator per pulmonology Atrial fibrillation - Patient was initially was not on anticoagulation given his prior history of perinephric bleeding while on Coumadin - c/w rate / rhythm control with amiodarone - c/w Eliquis (re: high risk of DVT / PE) Morbid obesity - Pickwickian syndrome with obesity hypoventilation syndrome - Elizabeth lift at baseline at [facility] chronically - Patient is a candidate for bariatric surgery but has poor reserve and likely a poor surgical candidate and would need medical optimization before he would be considered. Depression - Patient has had his Lexapro increased - Will consult psychiatry for further evaluation / treatment DVT prophylaxis - c/w full anticoagulation with Eliquis Disposition: - Unfortunately will remain in the ICU until a facility to support his v entilator and hemodialysis becomes available - PFS working on placement VS,Fishbone, I+O VS, Fishbone, I+O Laboratory Tests 10/11/19 05:10 Vital Signs Date Time Temp Pulse Resp B/P (MAP) Pulse Ox O2 Delivery O2 Flow Rate FiO2 10/11/19 08:00 97.9 56 14 117/55 (75) 94 Ventilator 35 10/10/19 08:05 100.0 I&O- Last 24 Hours up to 6 AM 10/11/19 06:00 Intake Total 600 ml Output Total 3500 ml Balance -2900 ml KINSEY HARVEY MD Oct 11, 2019 12:38
--- NOTE | 2019-10-11 13:55 | IPN ---
DATE OF SERVICE: 10/11/2019 Mr. Richard was seen and examined this morning during bedside rounds. The patient appears the same. He continues to be not as conversant. He was evaluated by psychiatry the day before who recommended increasing his Mirapex dose to 0.25 mg nightly. No overnight events were reported. The patient denies any chest pain or shortness of breath. He still continues to be depressed and has no complaints today. PHYSICAL EXAMINATION: Vitals: Temperature 98.0, pulse 64, respiratory rate 16, blood pressure 123/56 (78), pulse oximetry 95% on trache collar, FiO2 of 35%. General: This is a 49-year-old morbidly obese male laying in bed, alert and oriented. He does not appear in acute distress. HEENT: Atraumatic. Normocephalic. Pupils are equal, round and reactive. Moist mucous membranes. Very thick neck girth. Tracheostomy in place. No discharge or irritation noted of trache collar. Cardiac;: Very distant heart sounds due to morbid obesity. Difficult to appreciate murmurs, rubs or gallops. Very distant S1 and S2 sounds appreciated. Regular rate. Pulmonary: Diminished breath sounds bilaterally, but no audible wheezing, rhonchi or rales. Abdomen: Morbidly obese abdomen. Nontender. Nondistended. Soft. Lower Extremities: No lower extremity edema or calf tenderness. Multiple tattoos. LABORATORIES: WBC 6.5, hemoglobin 9.8, hematocrit 32.0, platelets 161. Chemistries: Sodium 136, potassium 3.9, chloride 101, carbon dioxide 25, BUN 18, creatinine 5.24, fasting glucose 85, calcium 9.2, magnesium 2.0. ASSESSMENT AND PLAN: Mr. Richard is a 49-year-old male with a history of morbid obesity with OHS and history of chronic hypercapnic hypoxic respiratory failure status post tracheostomy, end stage renal disease on hemodialysis, who presented with altered mental status and acute on chronic hypocapnic respiratory failure as well as shock and presumed sepsis from pneumonia. His acute hypercapnic respiratory failure and shock has resolved. He has been off pressors since 10/05 and the triple lumen has been removed. He continues to have difficulty being weaned off the ventilator to his trache collar. He is tolerating pressure support during the day but continues to have apneic episodes in the evening. Recommendations include pressure support during the day, trache collar during meals and PRVC at nighttime due to his apneic episodes. Continue to work with physical therapy and occupational therapy. Because of depressed mood, continue with recommendations from psychiatry such as the increased dose of Mirapex 0.25 mg at night. Continue with aspiration precaution with head of the bed elevation, especially with eating. The patient is stable and can be down graded with these ventilator settings. Deep vein thrombosis (DVT) prophylaxis with Eliquis. DISPOSITION: Recommendations is to be discharged to a place that has ventilator support and hemodialysis capabilities. Full code status. I, Leah Baer, have conducted an independent examination and history of the patient and agree with the above plan as detailed above by the resident and discussed during rounds. MARGO
[2019-10-11 16:00] VITALS: BP 115/61
[2019-10-11 20:00] VITALS: BP 114/56
[2019-10-11] MEDS: PRAMIPEXOLE 0.25 MG TAB PO SCH (20:05)
[2019-10-12] VITALS: BP 92/53
[2019-10-12 04:00] VITALS: BP 111/59
[2019-10-12 04:50] LABS: HEMOGLOBIN 9.9 g/dl (13.5-17.5); RED BLOOD COUNT 2.92 10^6/uL (4.30-6.10); WHITE BLOOD COUNT 6.4 10^3/uL (4.0-10.0)
[2019-10-12 04:51] LABS: HEMATOCRIT 31.4 % (42.0-52.0); MEAN CORPUSCULAR HEMOGLOBIN 33.9 pg (27.0-33.0); MEAN CORPUSCULAR HGB CONC 31.5 g/dl (32.0-36.5); MEAN CORPUSCULAR VOLUME 107.5 fl (80.0-96.0); PLATELET COUNT, AUTOMATED 154 10^3/uL (150-450)
[2019-10-12 05:18] LABS: CREATININE FOR GFR 6.69 MG/DL (0.70-1.30); GLOMERULAR FILTRATION RATE 9.5 (>60)
[2019-10-12 05:19] LABS: CALCIUM LEVEL 9.7 MG/DL (8.5-10.1); MAGNESIUM LEVEL 1.9 MG/DL (1.8-2.4)
[2019-10-12] MEDS: SLF 3 ML SYR IV SCH ×3 (05:57→20:32)
[2019-10-12] MEDS: DOCUSATE SODIUM 100 MG CAP PO SCH (05:57)
[2019-10-12] MEDS: APIXABAN 2.5 MG TAB (ELIQUIS) PO SCH ×2 (05:57→20:26)
[2019-10-12] MEDS: SENOKOT S TAB PO SCH ×2 (05:57→20:26)
[2019-10-12] MEDS: (RENVELA) SEVELAMER **CARBONate** 800 MG TAB PO SCH ×3 (05:58→18:00)
[2019-10-12] MEDS: ALPRAZolam 0.5 MG TAB PO PRN ×3 (06:01→23:56)
[2019-10-12] MEDS: PERCOCET 5MG/325MG TAB PO PRN ×2 (06:01→23:53)
[2019-10-12] MEDS: IPRATROPIUM 0.5MG/ALBUTEROL 2.5MG INH SOL UD 3ML (DUONEB)(J7620) INH SCH ×2 (07:47→20:36)
[2019-10-12 08:00] VITALS: BP 127/70
--- NOTE | 2019-10-12 09:59 | IPNPDOC ---
Text Note Date of Service The patient was seen on 10/12/19. NOTE Subjective: Patient was seen and examined at the bedside. Patient reports that he's had difficulty sleeping overnight. He denies chest pain, palpitations or cough. Denies abdominal pain, nausea, vomiting, or diarrhea. Objective: Vitals (See below) General: Lying in bed, no acute distress, comfortable, flat affect, AAOx3 HEENT: NC, AT CVS: +S1S2 Lungs: Respiratory effort remains poor, without any appreciable rales or rhonchi or wheezing Abdomen: Morbid obesity, but remains soft without tenderness Extremities: Lower extremities appear to be free of any pitting edema Assessment and plan: Patient is 49 years old man with morbid obesity, hypoventilation syndrome, chronic hypercapnic hypoxemic respiratory failure s/p tracheostomy, ESRD on HD (TTS), who presented to the hospital with acute on chronic respiratory failure and AMS and found to be severely hypercarbic requiring escalation from his home trilogy to the vent, antibiotics for presumed PNA, complicated by shock and NSVT. s/p Septic shock 2/2 pneumonia - Remains hemodynamically stable and afebrile; s/p Pressor support - No leukocytosis; PCT elevated on admission - Sputum culture 10/03: Proteus Mirabilis - Blood cultures all negative; Viral panel 09/30: Negative - s/p 7 days of Zoysn; s/p Vancomycin Acute and chronic respiratory failure with hypercapnia; Now ventilator dependent - Respiratory PCR panel was negative - No DVTs on LE Doppler venous ultrasound - Dr. Lopez (Cardiology); recommended Eliquis 2.5 BID; re: high risk of thromboembolism given prior history of Chronic PE / Chronic DVT - As an outpatient he was only on Trilogy at night; however, currently cannot be weaned off ventilator because of poor respiratory drive / periods of apnea - Dr. Baer on consultation - appreciate their input - Discussed with PFS about long-term acute care hospital placement; will facility to support ventilator and hemodialysis s/p V. tach - likely 2/2 infection and fever superimposed with electrolytes imbalance and acute on chronic respiratory failure with severe pulmonary hypertension - c/w amiodarone - Cardiology on consultation ESRD on HD (TTS) - Follows with Dr. Curtis, nephrology on board - Will hold off on introducing Midodrine at this time for hypotensive episodes; c/w fluid resuscitation if required s/p Metabolic encephalopathy - likely 2/2 acute hypercapnic hypoxemic respiratory failure - c/w ventilator per pulmonology Atrial fibrillation - Patient was initially was not on anticoagulation given his prior history of perinephric bleeding while on Coumadin - c/w rate / rhythm control with amiodarone - c/w Eliquis (re: high risk of DVT / PE) Morbid obesity - Pickwickian syndrome with obesity hypoventilation syndrome - Elizabeth lift at baseline at [facility] chronically - Patient is a candidate for bariatric surgery but has poor reserve and likely a poor surgical candidate and would need medical optimization before he would be considered. Depression - Patient has had his Lexapro increased - Will consult psychiatry for further evaluation / treatment DVT prophylaxis - c/w full anticoagulation with Eliquis Disposition: - PFS working on placement; require support for ventilator and hemodialysis VS,Fishbone, I+O VS, Fishbone, I+O Laboratory Tests 10/12/19 04:35 Vital Signs Date Time Temp Pulse Resp B/P (MAP) Pulse Ox O2 Delivery O2 Flow Rate FiO2 10/12/19 06:36 16 10/12/19 06:01 Ventilator 10/12/19 06:00 35 10/12/19 04:00 60 10/12/19 04:00 98.9 111/59 (76) 100 10/10/19 08:05 100.0 I&O- Last 24 Hours up to 6 AM 10/12/19 06:00 Intake Total 420 ml Output Total 0 ml Balance 420 ml KINSEY HARVEY MD Oct 12, 2019 09:59
[2019-10-12 12:00] VITALS: BP 105/57
[2019-10-12] MEDS ORDERED: HEPARIN 1,000 UNITS/ML 10ML VIAL (FOR RADIOLOGY& DIALYSIS ONLY) IV ONE (12:00)
[2019-10-12] MEDS ORDERED: HEPARIN 1,000 UNITS/ML 10ML VIAL (FOR RADIOLOGY& DIALYSIS ONLY) XX ONE (12:00)
[2019-10-12] MEDS: ESCITALOPRAM OXALATE 5MG TABLET (LEXAPRO) PO SCH (13:28)
[2019-10-12] MEDS: AMIODARONE 200 MG TAB (PACERONE) PO SCH (13:28)
[2019-10-12 16:00] VITALS: BP 113/56
--- NOTE | 2019-10-12 19:10 | IPN ---
DATE: 10/11/2019 SUBJECTIVE: The patient was seen and examined the bedside today morning in the intensive care unit (ICU). The patient was awake and alert. He was on the trach collar when I saw him. He was dialyzed yesterday. There was 3.5 liters of fluid removed, which he tolerated well. He denies any active complaints. OBJECTIVE: Vital signs: Temperature is 97.9 degrees Fahrenheit, blood pressure 117/55, pulse is 55, respiratory of 14, saturating 94% on trach collar with 35% FiO2. Intake and output: There is no urine output recorded. Ultrafiltration with hemodialysis was 3.5 liters. Weight in the bed scale is not available. PHYSICAL EXAMINATION: GENERAL: The patient is awake, alert, oriented times three, morbidly obese, lying in the bed. HEAD AND NECK: Extraocular muscles intact. Pupils equally round and reactive to light. He has a permanent tracheostomy. It was covered with a trach collar when I saw him. Neck is supple. He has left internal jugular (IJ) tunneled hemodialysis catheter. CARDIOVASCULAR: S1, S2, regular rate. Trace edema of the bilateral lower extremities. RESPIRATORY: He has a tracheostomy; otherwise, chest is clear to auscultation. No active rales or rhonchi. ABDOMEN: Soft, obese with no palpable organomegaly. MUSCULOSKELETAL: No clubbing or cyanosis. CENTRAL NERVOUS SYSTEM: The patient is chronically bedridden; otherwise, he follows commands and moves extremities. LABORATORY REVIEW: CBC showed WBC of 6.5, hemoglobin 9.8, platelets are 161. BMP showed sodium 136, potassium 3.9, chloride 101, bicarbonate 25, BUN 18, creatinine is 5.2. CURRENT INPATIENT MEDICATIONS: The patient's medications were all reviewed by myself. His pramipexole dose has been changed to 0.25 mg at bedtime. No other change in the medications today as compared with yesterday. ASSESSMENT AND PLAN: 1. End-stage renal disease. The patient is dialysis dependent. He was dialyzed yesterday. Next hemodialysis will be tomorrow morning. 2. Malfunctioning of the right forearm arteriovenous (AV) fistula. The patient gets dialysis through the left IJ tunneled hemodialysis catheter. AV fistula is malfunctioning. It needs to be fixed by vascular surgery. 3. Ventilator-dependent respiratory failure. The patient is currently on tracheostomy, but he does need the ventilator at nighttime, and he cannot use the portable vent. The patient will likely need to be transferred to a fpc with ventilator facility. 4. Anemia and end-stage renal disease. Hemoglobin level is optimal. Continue current use of Aranesp 200 mcg with dialysis. 5. 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 Phosphorus level was high 2 days ago. He is currently tolerating Renvela with meals.
[2019-10-12 20:00] VITALS: BP 111/55
[2019-10-12] MEDS: PRAMIPEXOLE 0.25 MG TAB PO SCH (21:40)
[2019-10-13] VITALS: BP 118/64
[2019-10-13 04:00] VITALS: BP 128/61
[2019-10-13] MEDS: SLF 3 ML SYR IV SCH ×3 (05:05→21:31)
[2019-10-13 06:27] LABS: HEMATOCRIT 33.3 % (42.0-52.0); HEMOGLOBIN 10.4 g/dl (13.5-17.5); MEAN CORPUSCULAR HEMOGLOBIN 33.5 pg (27.0-33.0); MEAN CORPUSCULAR HGB CONC 31.2 g/dl (32.0-36.5); MEAN CORPUSCULAR VOLUME 107.4 fl (80.0-96.0); PLATELET COUNT, AUTOMATED 148 10^3/uL (150-450); WHITE BLOOD COUNT 5.9 10^3/uL (4.0-10.0)
[2019-10-13 06:44] LABS: CREATININE FOR GFR 4.95 MG/DL (0.70-1.30); GLOMERULAR FILTRATION RATE 13.5 (>60); MAGNESIUM LEVEL 2.1 MG/DL (1.8-2.4)
[2019-10-13] MEDS: IPRATROPIUM 0.5MG/ALBUTEROL 2.5MG INH SOL UD 3ML (DUONEB)(J7620) INH SCH ×2 (07:15→20:41)
[2019-10-13] MEDS: (RENVELA) SEVELAMER **CARBONate** 800 MG TAB PO SCH ×3 (08:00→17:36)
--- NOTE | 2019-10-13 09:51 | IPNPDOC ---
Text Note Date of Service The patient was seen on 10/13/19. NOTE Subjective: Patient was seen and examined at the bedside. Of The patient his morning and advised him that there are several facilities that are looking into potentially accepting him upon transfer. Patient denies chest pain, shortness of breath or palpitations. Still has been very reluctant to work with physical therapy. Objective: Vitals (See below) General: Lying in bed, no acute distress, comfortable, flat affect, AAOx3 HEENT: NC, AT, + Trach CVS: +S1S2 Lungs: Auscultation is without rhonchi, wheezing or crackles. However, his inspiratory effort is very poor Abdomen: morbid obesity, nondistended, nontender, remains soft Extremities: No calf tenderness is appreciated, and no appreciable lower extremity pitting edema Assessment and plan: Patient is 49 years old man with morbid obesity, hypoventilation syndrome, chronic hypercapnic hypoxemic respiratory failure s/p tracheostomy, ESRD on HD (TTS), who presented to the hospital with acute on chronic respiratory failure and AMS and found to be severely hypercarbic requiring escalation from his home trilogy to the vent, antibiotics for presumed PNA, complicated by shock and NSVT. s/p Septic shock 2/2 pneumonia - Remains hemodynamically stable and afebrile; s/p Pressor support - No leukocytosis; PCT elevated on admission - Sputum culture 10/03: Proteus Mirabilis - Blood cultures all negative; Viral panel 09/30: Negative - s/p 7 days of Zoysn; s/p Vancomycin Acute and chronic respiratory failure with hypercapnia; Now ventilator dependent - Respiratory PCR panel was negative - No DVTs on LE Doppler venous ultrasound - Dr. Lopez (Cardiology); recommended Eliquis 2.5 BID; re: high risk of thromboembolism given prior history of Chronic PE / Chronic DVT - As an outpatient he was only on Trilogy at night; however, currently cannot be weaned off ventilator because of poor respiratory drive / periods of apnea - Dr. Baer on consultation - appreciate their input - Discussed with PFS about long-term acute care hospital placement; will facility to support ventilator and hemodialysis - Patient has received potential bed, offers from out of state facilities will discuss with patient and healthcare proxy in order to get him transitioned s/p V. tach - likely 2/2 infection and fever superimposed with electrolytes imbalance and acute on chronic respiratory failure with severe pulmonary hypertension - c/w Amiodarone - Cardiology on consultation ESRD on HD (TTS) - Follows with Dr. Curtis, nephrology on board - Will hold off on introducing Midodrine at this time for hypotensive episodes; c/w fluid resuscitation if required s/p Metabolic encephalopathy - likely 2/2 acute hypercapnic hypoxemic respiratory failure - c/w ventilator per pulmonology Atrial fibrillation - Patient was initially was not on anticoagulation given his prior history of perinephric bleeding while on Coumadin - c/w rate / rhythm control with amiodarone - c/w Eliquis (re: high risk of DVT / PE) Morbid obesity - Pickwickian syndrome with obesity hypoventilation syndrome - Elizabeth lift at baseline at [facility] chronically - Patient is a candidate for bariatric surgery but has poor reserve and likely a poor surgical candidate and would need medical optimization before he would be considered. Depression - Patient has had his Lexapro increased - Will consult psychiatry for further evaluation / treatment DVT prophylaxis - c/w full anticoagulation with Eliquis Disposition: - PFS working on placement; require support for ventilator and hemodialysis VS,Edubone, I+O VS, Fishbone, I+O Laboratory Tests 10/13/19 05:28 Vital Signs Date Time Temp Pulse Resp B/P (MAP) Pulse Ox O2 Delivery O2 Flow Rate FiO2 10/13/19 08:00 97.6 66 17 98 Trach Collar 35 10/13/19 04:00 128/61 (83) 10/10/19 08:05 100.0 I&O- Last 24 Hours up to 6 AM 10/13/19 06:00 Intake Total 360 ml Output Total 3500 ml Balance -3140 ml KINSEY HARVEY MD Oct 13, 2019 09:51
[2019-10-13] MEDS: APIXABAN 2.5 MG TAB (ELIQUIS) PO SCH ×2 (09:54→21:30)
[2019-10-13] MEDS: DOCUSATE SODIUM 100 MG CAP PO SCH (09:54)
[2019-10-13] MEDS: SENOKOT S TAB PO SCH ×2 (09:54→21:30)
[2019-10-13] MEDS: VITAMIN D 50,000 UNITS CAPSULE (ERGOCALCIFEROL 1.25MG) PO SCH (09:54)
[2019-10-13 12:00] VITALS: BP 136/73
[2019-10-13] MEDS: AMIODARONE 200 MG TAB (PACERONE) PO SCH (12:54)
[2019-10-13] MEDS: ESCITALOPRAM OXALATE 5MG TABLET (LEXAPRO) PO SCH (15:26)
[2019-10-13 16:00] VITALS: BP 164/78
--- NOTE | 2019-10-13 17:50 | IPN ---
DATE: 10/12/2019 SUBJECTIVE: The patient was seen and examined at the bedside today morning in the intensive care unit (ICU) during hemodialysis procedure. He is tolerating the hemodialysis procedure well. He is currently on a trach collar. He is otherwise hemodynamically stable, not requiring any pressors. OBJECTIVE: Vital signs: Temperature is 98.9 degrees Fahrenheit, blood pressure 111/59, pulse is 62, respiratory rate of 17, saturating 100% on the trach collar with 35% FiO2. Intake and output: There is no urine output recorded. Weight in the bed scale is not available. PHYSICAL EXAMINATION General: The patient is sleeping at this time, laying in bed, morbidly obese. Head and neck exam: Extraocular muscles intact. Pupils equally round and reactive to light. Mucous membranes are moist. Neck is supple. He has a tracheostomy with a trach collar. Cardiovascular: S1, S2, regular rate. 1+ edema of the bilateral lower extremities. Respiratory: No active rales or rhonchi. Chest is clear to auscultation bilaterally. Abdomen is obese, no organomegaly was appreciated. Musculoskeletal: No clubbing or cyanosis. Decreased range of movement of the bilateral lower extremities. Central nervous system (KITCHEN CHEF): The patient is sleeping at this time. The patient is chronically bedridden because of morbid obesity. LAB REVIEW: CBC showed a WBC of 6.4, hemoglobin 9.9, platelets are 154. BMP showed sodium 136, potassium 4, chloride 103, bicarbonate 27, BUN 27, creatinine 6.6, glucose is 86, calcium 9.7, magnesium is 1.9. CURRENT INPATIENT MEDICATIONS: The patient's medications were all reviewed by myself. There is no change in the medications today as compared with yesterday. ASSESSMENT/PLAN: 1. End-stage renal disease. The patient's regular dialysis days are Wednesday, , Wednesday. He is being dialyzed according to his regular schedule. Ultrafiltration goal is around 3.5 liters as tolerated by his blood pressure. 2. Anemia in end-stage renal disease. Continue current dose of Aranesp 200 mcg IV with hemodialysis, hemoglobin level is within the acceptable range. 3. Vent dependent respiratory failure. The patient needs the vent at night time, he gets on the trach collar for a few hours while he is eating. Social workers are trying to look for placement. 4. Chronic kidney disease mineral bone disease. Continue current dose of Renvela 4.8 grams by mouth with meals.
[2019-10-13] MEDS: PERCOCET 5MG/325MG TAB PO PRN (18:27)
[2019-10-13] MEDS: ALPRAZolam 0.5 MG TAB PO PRN (18:28)
[2019-10-13 20:00] VITALS: BP 112/62
--- NOTE | 2019-10-13 23:09 | IPN ---
DATE: 10/13/2019 SUBJECTIVE: The patient was seen and examined at the bedside today morning. He was laying in the bed. He was dialyzed yesterday. He tolerated the hemodialysis procedure well. 3.5 liters of fluid was removed. He was on a trach collar when I saw him in the morning. He denies any active complaints. OBJECTIVE: Vital signs: Temperature is 97.6 degrees Fahrenheit. Blood pressure 128/61, pulse is 66, respiratory rate of 18, saturating 98% on the trach collar at 35% FiO2. Intake and output. There is no urine output recorded. Ultrafiltration with hemodialysis was 3.5 liters. PHYSICAL EXAMINATION: General: The patient is morbidly obese, laying in the bed. No apparent distress. Head and neck exam: Extraocular muscles intact. Pupils equally round and reactive to light. There is a tracheostomy in the neck, and it is covered with a trach collar. Cardiovascular: S1, S2, regular rate. No edema of the bilateral lower extremities. Respiratory: Chest is clear to auscultation bilaterally. Bilateral equal air entry. He is on 35% FiO2 through the trach collar. Abdomen: Soft, obese, positive bowel sounds. Musculoskeletal: No clubbing or cyanosis. Decreased range of movement because of chronically bedridden status. Central nervous system (TOOL BUILDER): The patient follows commands and moves upper extremities. He has a depressed mood. LAB REVIEW: CBC showed a WBC of 5.9, hemoglobin 10.4, platelets of 148. BMP showed sodium 136, potassium 4, chloride 100, bicarbonate 27, BUN 17, creatinine of 4.9, calcium 10, magnesium 2.1. CURRENT INPATIENT MEDICATIONS: The patient's medications were all reviewed by myself. There is no significant change in the medications today as compared with yesterday. ASSESSMENT/PLAN: 1. End-stage renal disease. The patient is dialysis dependent. His regular dialysis days are Wednesday, , Wednesday. He will be dialyzed tomorrow morning. 2. Obesity hypoventilation. The patient has a tracheostomy. He is vent dependent at night time. Currently he is on the trach collar and oxygenating well. 3. Anemia in end-stage renal disease. Hemoglobin is optimal. Continue current dose of Aranesp. 4. Malfunctioning of the right forearm arteriovenous (AV) fistula. The patient has a left IJ tunneled hemodialysis catheter. AV fistula would need a revision by vascular surgery.
[2019-10-13] MEDS: PRAMIPEXOLE 0.25 MG TAB PO SCH (23:39)
[2019-10-14] VITALS (7 sets, daily range): BP systolic 100–129; BP diastolic 53–72; O2SAT 98
[2019-10-14] MEDS: ALPRAZolam 0.5 MG TAB PO PRN ×4 (01:38→23:01)
[2019-10-14] MEDS: PERCOCET 5MG/325MG TAB PO PRN ×4 (01:39→23:01)
[2019-10-14 05:34] LABS: HEMATOCRIT 32.9 % (42.0-52.0); MEAN CORPUSCULAR HEMOGLOBIN 33.1 pg (27.0-33.0); MEAN CORPUSCULAR HGB CONC 30.4 g/dl (32.0-36.5); MEAN CORPUSCULAR VOLUME 108.9 fl (80.0-96.0); PLATELET COUNT, AUTOMATED 139 10^3/uL (150-450); RED BLOOD COUNT 3.02 10^6/uL (4.30-6.10)
[2019-10-14 05:48] LABS: CALCIUM LEVEL 9.6 MG/DL (8.5-10.1); CREATININE FOR GFR 6.26 MG/DL (0.70-1.30); GLOMERULAR FILTRATION RATE 10.3 (>60); POTASSIUM SERUM 4.2 MEQ/L (3.5-5.1)
[2019-10-14] MEDS: SLF 3 ML SYR IV SCH ×3 (06:33→21:05)
[2019-10-14] MEDS: IPRATROPIUM 0.5MG/ALBUTEROL 2.5MG INH SOL UD 3ML (DUONEB)(J7620) INH SCH ×2 (07:56→18:16)
[2019-10-14] MEDS: DOCUSATE SODIUM 100 MG CAP PO SCH (07:57)
[2019-10-14] MEDS: APIXABAN 2.5 MG TAB (ELIQUIS) PO SCH ×2 (07:58→21:05)
[2019-10-14] MEDS: (RENVELA) SEVELAMER **CARBONate** 800 MG TAB PO SCH ×3 (07:58→17:16)
[2019-10-14] MEDS: SENOKOT S TAB PO SCH ×2 (07:58→21:05)
--- NOTE | 2019-10-14 08:16 | IPNPDOC ---
Text Note Date of Service The patient was seen on 10/14/19. NOTE Subjective: Patient was seen and examined at the bedside. Patient family services/social workers have been working on placement, currently there appears to be a facility in [facility] that will accept him. Patient reports that he's had an uneventful evening, denies chest pain, shortness of breath, palpitations. Denies nausea, vomiting, abdominal pain or diarrhea. Objective: Vitals (See below) General: Lying in bed, no acute distress, comfortable, flat affect, AAOx3 HEENT: NC, AT, + Trach CVS: +S1S2 Lungs: Inspiratory effort remains poor. There does not appear to be any appreciable rhonchi, rales or wheezing Abdomen: Abdomen is soft without distention or tenderness, morbid obesity Extremities: Lower, she reserve free of any pitting edema. There does not appear to be any calf tenderness Assessment and plan: Patient is 49 years old man with morbid obesity, hypoventilation syndrome, chronic hypercapnic hypoxemic respiratory failure s/p tracheostomy, ESRD on HD (TTS), who presented to the hospital with acute on chronic respiratory failure and AMS and found to be severely hypercarbic requiring escalation from his home trilogy to the vent, antibiotics for presumed PNA, complicated by shock and NSVT. s/p Septic shock 2/2 pneumonia - Remains hemodynamically stable and afebrile; s/p Pressor support - No leukocytosis; PCT elevated on admission - Sputum culture 10/03: Proteus Mirabilis - Blood cultures all negative; Viral panel 09/30: Negative - s/p 7 days of Zoysn; s/p Vancomycin Acute and chronic respiratory failure with hypercapnia; Now ventilator dependent - Respiratory PCR panel was negative - No DVTs on LE Doppler venous ultrasound - Dr. Lopez (Cardiology); recommended Eliquis 2.5 BID; re: high risk of thromboembolism given prior history of Chronic PE / Chronic DVT - As an outpatient he was only on Trilogy at night; however, currently cannot be weaned off ventilator because of poor respiratory drive / periods of apnea - Dr. Baer on consultation; appreciate their input - Discussed with PFS about long-term acute care hospital placement; will facility to support ventilator and hemodialysis - possibly [place], [place] - Patient and HCP are open to transition to outside facility s/p V. tach - likely 2/2 infection and fever superimposed with electrolytes imbalance and acute on chronic respiratory failure with severe pulmonary hypertension - c/w Amiodarone - Cardiology on consultation ESRD on HD (TTS) - Follows with Dr. Curtis, nephrology on board - Will hold off on introducing Midodrine at this time for hypotensive episodes; c/w fluid resuscitation if required s/p Metabolic encephalopathy - likely 2/2 acute hypercapnic hypoxemic respiratory failure - c/w ventilator per pulmonology Atrial fibrillation - Patient was initially was not on anticoagulation given his prior history of perinephric bleeding while on Coumadin - c/w rate / rhythm control with amiodarone - c/w Eliquis (re: high risk of DVT / PE) Morbid obesity - Pickwickian syndrome with obesity hypoventilation syndrome - Elizabeth lift at baseline at [facility] chronically - Patient is a candidate for bariatric surgery but has poor reserve and likely a poor surgical candidate and would need medical optimization before he would be considered. Depression - Patient has had his Lexapro increased - Will consult psychiatry for further evaluation / treatment DVT prophylaxis - c/w full anticoagulation with Eliquis Disposition: - PFS working on placement; require support for ventilator and hemodialysis - Anticipate transition to [place], [place] facility within this coming week VS,Fishbone, I+O VS, Fishbone, I+O Laboratory Tests 10/14/19 04:40 Vital Signs Date Time Temp Pulse Resp B/P (MAP) Pulse Ox O2 Delivery O2 Flow Rate FiO2 10/14/19 07:57 22 10/14/19 04:00 97.7 59 105/55 (72) 98 Trach Collar 35 10/10/19 08:05 100.0 I&O- Last 24 Hours up to 6 AM 10/14/19 06:00 Intake Total 240 ml Output Total 0 ml Balance 240 ml KINSEY HARVEY MD Oct 14, 2019 08:16
[2019-10-14] MEDS: ESCITALOPRAM OXALATE 5MG TABLET (LEXAPRO) PO SCH (12:39)
[2019-10-14] MEDS: AMIODARONE 200 MG TAB (PACERONE) PO SCH (12:39)
[2019-10-14] MEDS ORDERED: HEPARIN 1,000 UNITS/ML 10ML VIAL (FOR RADIOLOGY& DIALYSIS ONLY) IV ONE (17:30)
[2019-10-14] MEDS: PRAMIPEXOLE 0.25 MG TAB PO SCH (21:04)
[2019-10-15] VITALS (10 sets, daily range): BP systolic 88–116; BP diastolic 50–62; O2SAT 94–98
[2019-10-15] MEDS: SLF 3 ML SYR IV SCH ×3 (06:20→21:11)
[2019-10-15 07:37] LABS: BASO # 0.1 10^3/uL (0.0-0.2); BASO % 0.9 % (0.0-1.0); EOS # 0.3 10^3/uL (0.0-0.5); EOS % 4.6 % (0.0-3.0); HEMOGLOBIN 10.6 g/dl (13.5-17.5); LYMPH % 35.4 % (24.0-44.0); MEAN CORPUSCULAR HEMOGLOBIN 33.3 pg (27.0-33.0); MEAN CORPUSCULAR HGB CONC 30.3 g/dl (32.0-36.5); MEAN CORPUSCULAR VOLUME 110.1 fl (80.0-96.0); MONO # 0.4 10^3/uL (0.0-0.8); MONO % 7.8 % (0.0-5.0); NEUTROPHILS # 2.8 10^3/uL (1.5-8.5); NEUTROPHILS % 50.6 % (36.0-66.0); PLATELET COUNT, AUTOMATED 146 10^3/uL (150-450); RED BLOOD COUNT 3.18 10^6/uL (4.30-6.10); WHITE BLOOD COUNT 5.6 10^3/uL (4.0-10.0)
[2019-10-15] MEDS: IPRATROPIUM 0.5MG/ALBUTEROL 2.5MG INH SOL UD 3ML (DUONEB)(J7620) INH SCH ×2 (07:46→18:04)
[2019-10-15 07:55] LABS: CALCIUM LEVEL 9.9 MG/DL (8.5-10.1); CREATININE FOR GFR 4.6 MG/DL (0.70-1.30); GLOMERULAR FILTRATION RATE 14.7 (>60); MAGNESIUM LEVEL 2.1 MG/DL (1.8-2.4); POTASSIUM SERUM 3.9 MEQ/L (3.5-5.1)
[2019-10-15] MEDS: (RENVELA) SEVELAMER **CARBONate** 800 MG TAB PO SCH ×3 (08:00→17:09)
--- NOTE | 2019-10-15 09:18 | IPNPDOC ---
Text Note Date of Service The patient was seen on 10/15/19. NOTE Subjective: Patient was seen and examined at the bedside. Patient reports that he is having difficulty sleeping. Denies chest pain, shortness of breath, palpitations, nausea, vomiting, pain has been very on discouraged with physical therapy and plan for transition to facility in [facility]. Objective: Vitals (See below) General: Lying in bed, no acute distress, comfortable, flat affect, AAOx3 HEENT: NC, AT, + Trach CVS: +S1S2 Lungs: Poor air entry bilaterally. No evidence of rhonchi, rales or wheezing Abdomen: Morbid obesity, abdomen soft without any tenderness or distention Extremities: No pitting edema at lower extremities , calf tenderness is not appreciated Assessment and plan: Patient is 49 years old man with morbid obesity, hypoventilation syndrome, chronic hypercapnic hypoxemic respiratory failure s/p tracheostomy, ESRD on HD (TTS), who presented to the hospital with acute on chronic respiratory failure and AMS and found to be severely hypercarbic requiring escalation from his home trilogy to the vent, antibiotics for presumed PNA, complicated by shock and NSVT. s/p Septic shock 2/2 pneumonia - Remains hemodynamically stable and afebrile; s/p Pressor support - No leukocytosis; PCT elevated on admission - Sputum culture 10/03: Proteus Mirabilis - Blood cultures all negative; Viral panel 09/30: Negative - s/p 7 days of Zoysn; s/p Vancomycin Acute and chronic respiratory failure with hypercapnia; Now ventilator dependent - Respiratory PCR panel was negative - No DVTs on LE Doppler venous ultrasound - Dr. Lopez (Cardiology); recommended Eliquis 2.5 BID; re: high risk of thromboembolism given prior history of Chronic PE / Chronic DVT - As an outpatient he was only on Trilogy at night; however, currently cannot be weaned off ventilator because of poor respiratory drive / periods of apnea - Dr. Baer on consultation; appreciate their input - Discussed with PFS about long-term acute care hospital placement; will facility to support ventilator and hemodialysis - possibly [place], [place] - Patient and HCP are open to transition to outside facility s/p V. tach - likely 2/2 infection and fever superimposed with electrolytes imbalance and acute on chronic respiratory failure with severe pulmonary hypertension - c/w Amiodarone - Cardiology on consultation ESRD on HD (TTS) - Follows with Dr. Curtis, nephrology on board s/p Metabolic encephalopathy - likely 2/2 acute hypercapnic hypoxemic respiratory failure - c/w ventilator per pulmonology Atrial fibrillation - Patient was initially was not on anticoagulation given his prior history of perinephric bleeding while on Coumadin - c/w rate / rhythm control with amiodarone - c/w Eliquis (re: high risk of DVT / PE) Morbid obesity - Pickwickian syndrome with obesity hypoventilation syndrome - Elizabeth lift at baseline at [facility] chronically - Patient is a candidate for bariatric surgery but has poor reserve and likely a poor surgical candidate and would need medical optimization before he would be considered. Depression - Patient has had his Escitalopram and Pramipezole - Doses have been adjusted at the recommendation of psychiatry Thrombocytopenia - Patient does not have any episodes of bleeding - Will continue to follow counts DVT prophylaxis - c/w full anticoagulation with Eliquis Disposition: - PFS working on placement; require support for ventilator and hemodialysis - Anticipate transition to [facility] within this coming week Carlie HUTCHINS, I+O Carlie HUTCHINS I+O Laboratory Tests 10/15/19 07:20 Vital Signs Date Time Temp Pulse Resp B/P (MAP) Pulse Ox O2 Delivery O2 Flow Rate FiO2 10/15/19 08:00 97.7 56 20 96/53 (67) 95 Ventilator 10/15/19 08:00 35 10/10/19 08:05 100.0 I&O- Last 24 Hours up to 6 AM 10/15/19 06:00 Intake Total 0 ml Output Total 2000 ml Balance -2000 ml KINSEY HRAVEY MD Oct 15, 2019 09:18
[2019-10-15] MEDS: DOCUSATE SODIUM 100 MG CAP PO SCH (09:44)
[2019-10-15] MEDS: APIXABAN 2.5 MG TAB (ELIQUIS) PO SCH ×2 (09:44→21:06)
[2019-10-15] MEDS: SENOKOT S TAB PO SCH ×2 (09:44→21:06)
[2019-10-15] MEDS: ALPRAZolam 0.5 MG TAB PO PRN ×3 (09:47→22:43)
[2019-10-15] MEDS: PERCOCET 5MG/325MG TAB PO PRN ×3 (09:48→22:42)
--- NOTE | 2019-10-15 10:46 | IPN ---
DATE OF SERVICE: 10/14/2019 SUBJECTIVE: The patient was seen and examined at the bedside today morning during hemodialysis. He is tolerating the hemodialysis procedure well. He denies any active complaints at this time. OBJECTIVE: Vital Signs: Temperature is 99.2 degrees Fahrenheit, blood pressure 112/65, pulse is 72, respiratory rate of 18, saturating 98% on the trache collar with 35% FIO2. Intake and Output: There is no urine output recorded. Ultrafiltration with hemodialysis 2 days ago was 3.5 liters. Weight in the bed scale is not available. PHYSICAL EXAMINATION: General: The patient is awake, alert, oriented times three, morbidly obese, laying in bed in no apparent distress. Head and Neck Exam: The patient has a tracheostomy and a trache collar. Mucous membranes are moist. Neck is supple. Cardiovascular: S1, S2, regular rate. No edema of the bilateral lower extremities. Respiratory: Chest is clear to auscultation bilaterally. Bilateral equal air entry. No rales or rhonchi. Abdomen: Soft, obese. Positive bowel sounds. Nontender. No organomegaly. Musculoskeletal: No clubbing or cyanosis. Pulses are 2+. WILDLIFE BIOSTATION RESEARCH ECOLOGIST: No focal deficit. Power is 5/5 in all extremities. Psych: The patient has a depressed mood. LAB REVIEW: CBC showed a WBC of 6, hemoglobin is 10, platelets of 139. BMP showed sodium 137, potassium 4.2, chloride 103, bicarb 24, BUN 24, creatinine 6.2, glucose 83, calcium 9.6, magnesium 2. CURRENT INPATIENT MEDICATIONS: The patient's medications were all reviewed by me. There is no change in the medications today as compared with yesterday. ASSESSMENT/PLAN: 1. End-stage renal disease. The patient is getting dialysis today. Ultrafiltration goal will be around 2.5-3 liters as tolerated by his blood pressure. 2. Anemia in end-stage renal disease. Continue current dose of Aranesp. 3. Obesity hypoventilation. The patient has a tracheostomy with trache collar and most of the time he is vent dependent and he is unable to go back to the long-term in [place] because of dependency on the vent. 4. Chronic kidney disease mineral bone disease. Continue current dose of Renvela 4.8 grams with meals.
[2019-10-15] MEDS: AMIODARONE 200 MG TAB (PACERONE) PO SCH (12:02)
[2019-10-15] MEDS: ESCITALOPRAM OXALATE 5MG TABLET (LEXAPRO) PO SCH (12:02)
[2019-10-15] MEDS: PRAMIPEXOLE 0.25 MG TAB PO SCH (21:06)
[2019-10-16] VITALS (20 sets, daily range): BP systolic 96–122; BP diastolic 51–74; O2SAT 88–98
[2019-10-16] MEDS: ALPRAZolam 0.5 MG TAB PO PRN ×3 (04:44→18:17)
[2019-10-16] MEDS: PERCOCET 5MG/325MG TAB PO PRN ×3 (04:44→18:17)
[2019-10-16 05:09] LABS: BASO # 0.1 10^3/uL (0.0-0.2); BASO % 1.1 % (0.0-1.0); EOS # 0.3 10^3/uL (0.0-0.5); HEMATOCRIT 34.3 % (42.0-52.0); HEMOGLOBIN 10.5 g/dl (13.5-17.5); LYMPH # 2.5 10^3/uL (1.5-5.0); MEAN CORPUSCULAR HEMOGLOBIN 32.9 pg (27.0-33.0); MEAN CORPUSCULAR HGB CONC 30.6 g/dl (32.0-36.5); MEAN CORPUSCULAR VOLUME 107.5 fl (80.0-96.0); MONO # 0.4 10^3/uL (0.0-0.8); MONO % 6.1 % (0.0-5.0); NEUTROPHILS # 3.1 10^3/uL (1.5-8.5); PLATELET COUNT, AUTOMATED 157 10^3/uL (150-450); RED BLOOD COUNT 3.19 10^6/uL (4.30-6.10); WHITE BLOOD COUNT 6.4 10^3/uL (4.0-10.0)
[2019-10-16 05:22] LABS: CREATININE FOR GFR 6.35 MG/DL (0.70-1.30); GLOMERULAR FILTRATION RATE 10.1 (>60); MAGNESIUM LEVEL 2.1 MG/DL (1.8-2.4)
[2019-10-16] MEDS: SLF 3 ML SYR IV SCH ×3 (06:09→22:03)
[2019-10-16] MEDS: IPRATROPIUM 0.5MG/ALBUTEROL 2.5MG INH SOL UD 3ML (DUONEB)(J7620) INH SCH ×2 (07:34→20:00)
[2019-10-16] MEDS: (RENVELA) SEVELAMER **CARBONate** 800 MG TAB PO SCH ×2 (08:00→08:48)
--- NOTE | 2019-10-16 08:47 | IPNPDOC ---
Text Note Date of Service The patient was seen on 10/16/19. NOTE Subjective: Patient was seen and examined at the bedside. Patient was seen lying in bed without any discomfort. Patient reports that he has had difficulty sleeping overnight. Denies chest pain, shortness of breath or palpitations. Patient reports that he had a bowel movement about 2 days ago. Objective: Vitals (See below) General: Lying in bed, no acute distress, comfortable, flat affect, AAOx3 HEENT: NC, AT, + Trach CVS: +S1S2 Lungs: Air entry is poor bilaterally without evidence of rhonchi, wheezing or crackles Abdomen: Morbid obesity, but remains soft, without any distention or tenderness Extremities: Lower extremities appear to have no pitting edema. I, calf tenderness is not appreciated Assessment and plan: Patient is 49 years old man with morbid obesity, hypoventilation syndrome, chronic hypercapnic hypoxemic respiratory failure s/p tracheostomy, ESRD on HD (TTS), who presented to the hospital with acute on chronic respiratory failure and AMS and found to be severely hypercarbic requiring escalation from his home trilogy to the vent, antibiotics for presumed PNA, complicated by shock and NSVT. s/p Septic shock 2/2 pneumonia - Remains hemodynamically stable and afebrile; s/p Pressor support - No leukocytosis; PCT elevated on admission - Sputum culture 10/03: Proteus Mirabilis - Blood cultures all negative; Viral panel 09/30: Negative - s/p 7 days of Zoysn; s/p Vancomycin Acute and chronic respiratory failure with hypercapnia; Now ventilator dependent - Respiratory PCR panel was negative - No DVTs on LE Doppler venous ultrasound - Dr. Lopez (Cardiology); recommended Eliquis 2.5 BID; re: high risk of thromboembolism given prior history of Chronic PE / Chronic DVT - As an outpatient he was only on Trilogy at night; however, currently cannot be weaned off ventilator because of poor respiratory drive / periods of apnea - Dr. Baer on consultation; appreciate their input - Discussed with PFS about long-term acute care hospital placement; will facility to support ventilator and hemodialysis - possibly [place], [place] - Patient and HCP are open to transition to outside facility s/p V. tach - likely 2/2 infection and fever superimposed with electrolytes imbalance and acute on chronic respiratory failure with severe pulmonary hypertension - c/w Amiodarone - Cardiology on consultation ESRD on HD (TTS) - Follows with Dr. Curtis, nephrology on board s/p Metabolic encephalopathy - likely 2/2 acute hypercapnic hypoxemic respiratory failure - c/w ventilator per pulmonology Atrial fibrillation - Patient was initially was not on anticoagulation given his prior history of perinephric bleeding while on Coumadin - c/w rate / rhythm control with amiodarone - c/w Eliquis (re: high risk of DVT / PE) Morbid obesity - Pickwickian syndrome with obesity hypoventilation syndrome - Elizabeth lift at baseline at [facility] chronically - Patient is a candidate for bariatric surgery but has poor reserve and likely a poor surgical candidate and would need medical optimization before he would be considered. Depression / Insomnia - Patient has had his Escitalopram and Pramipexole - Will add Ramelteon - Doses have been adjusted at the recommendation of psychiatry Thrombocytopenia - Patient does not have any episodes of bleeding - Will continue to follow counts DVT prophylaxis - c/w full anticoagulation with Eliquis Disposition: - PFS working on placement; require support for ventilator and hemodialysis - Anticipate transition to [facility] within this coming week VS,Carlie, I+O VS, Carlie, I+O Laboratory Tests 10/16/19 04:41 Vital Signs Date Time Temp Pulse Resp B/P (MAP) Pulse Ox O2 Delivery O2 Flow Rate FiO2 10/16/19 07:35 12 35 10/16/19 07:34 60 10/16/19 05:28 Ventilator 10/16/19 04:45 94 10/16/19 04:00 98.2 101/57 (72) 10/10/19 08:05 100.0 I&O- Last 24 Hours up to 6 AM 10/16/19 06:00 Intake Total 60 ml Output Total 0 ml Balance 60 ml KINSEY HARVEY MD Oct 16, 2019 08:47
[2019-10-16] MEDS: SENOKOT S TAB PO SCH ×2 (08:48→22:03)
[2019-10-16] MEDS: APIXABAN 2.5 MG TAB (ELIQUIS) PO SCH ×2 (08:48→22:03)
[2019-10-16] MEDS: DOCUSATE SODIUM 100 MG CAP PO SCH (08:48)
[2019-10-16] MEDS: ESCITALOPRAM OXALATE 5MG TABLET (LEXAPRO) PO SCH (12:27)
[2019-10-16] MEDS: AMIODARONE 200 MG TAB (PACERONE) PO SCH (12:27)
[2019-10-16 12:56] LABS: PHOSPHORUS LEVEL 5.3 MG/DL (2.5-4.9)
[2019-10-16] MEDS ORDERED: PILL CUTTER 1 EACH XX PRN (13:30)
[2019-10-16] MEDS: LANTHANUM CARBONATE 500 MG CHEW TABLET PO SCH ×2 (15:56→18:17)
[2019-10-16] MEDS: NEPHRO-VIT TAB (NEPHROCAPS) PO SCH (15:57)
[2019-10-16] MEDS ORDERED: HEPARIN 1,000 UNITS/ML 10ML VIAL (FOR RADIOLOGY& DIALYSIS ONLY) XX ONE (16:00)
[2019-10-16] MEDS ORDERED: HEPARIN 1,000 UNITS/ML 10ML VIAL (FOR RADIOLOGY& DIALYSIS ONLY) IV ONE (16:00)
[2019-10-16] MEDS: PRAMIPEXOLE 0.25 MG TAB PO SCH (22:02)
[2019-10-16] MEDS: RAMELTEON 8 MG TAB (ROZEREM) PO SCH (22:02)
[2019-10-17] VITALS (23 sets, daily range): BP systolic 100–120; BP diastolic 57–63; O2SAT 90–98
[2019-10-17] MEDS: ALPRAZolam 0.5 MG TAB PO PRN ×4 (00:20→23:17)
[2019-10-17] MEDS: PERCOCET 5MG/325MG TAB PO PRN ×4 (00:21→23:18)
[2019-10-17] MEDS: SLF 3 ML SYR IV SCH ×3 (05:01→21:06)
[2019-10-17 05:12] LABS: BASO # 0.1 10^3/uL (0.0-0.2); BASO % 0.9 % (0.0-1.0); EOS # 0.3 10^3/uL (0.0-0.5); EOS % 4.7 % (0.0-3.0); HEMATOCRIT 35.9 % (42.0-52.0); LYMPH # 2.5 10^3/uL (1.5-5.0); MEAN CORPUSCULAR HEMOGLOBIN 33.3 pg (27.0-33.0); MEAN CORPUSCULAR HGB CONC 30.6 g/dl (32.0-36.5); MEAN CORPUSCULAR VOLUME 108.8 fl (80.0-96.0); MONO # 0.5 10^3/uL (0.0-0.8); MONO % 6.5 % (0.0-5.0); NEUTROPHILS # 3.6 10^3/uL (1.5-8.5); NEUTROPHILS % 51.3 % (36.0-66.0); PLATELET COUNT, AUTOMATED 167 10^3/uL (150-450)
[2019-10-17 05:25] LABS: CALCIUM LEVEL 10.4 MG/DL (8.5-10.1); CREATININE FOR GFR 4.44 MG/DL (0.70-1.30); GLOMERULAR FILTRATION RATE 15.3 (>60); MAGNESIUM LEVEL 1.9 MG/DL (1.8-2.4); POTASSIUM SERUM 3.7 MEQ/L (3.5-5.1)
[2019-10-17] MEDS: IPRATROPIUM 0.5MG/ALBUTEROL 2.5MG INH SOL UD 3ML (DUONEB)(J7620) INH SCH ×2 (07:25→20:33)
[2019-10-17] MEDS: DOCUSATE SODIUM 100 MG CAP PO SCH (10:02)
[2019-10-17] MEDS: SENOKOT S TAB PO SCH ×2 (10:02→21:03)
[2019-10-17] MEDS: LANTHANUM CARBONATE 500 MG CHEW TABLET PO SCH ×3 (10:02→17:34)
[2019-10-17] MEDS: APIXABAN 2.5 MG TAB (ELIQUIS) PO SCH ×2 (10:02→21:03)
[2019-10-17] MEDS: NEPHRO-VIT TAB (NEPHROCAPS) PO SCH (10:02)
--- NOTE | 2019-10-17 10:40 | IPN ---
DATE: 10/15/2019 SUBJECTIVE: The patient was seen and examined at the bedside today morning. He is afebrile, hemodynamically stable. She was dialyzed yesterday. There were 2 liters of fluid removed. Further fluid removal was stopped because of his soft blood pressures. The patient has a depressed mood today. He reports that he is being transferred to [place] to a senior living, where they can take care of his ventilatory in dialysis. OBJECTIVE Vital signs: Temperature is 97.7 degrees Fahrenheit, blood pressure 96/53, pulse is 56, respiratory rate of 20, saturating 95% of the ventilator with 35% FiO2. Intake and output: There is no urine output recorded. Ultrafiltration with hemodialysis was 2 liters. Weight in the bed scale is not available. PHYSICAL EXAMINATION: GENERAL: The patient is awake, alert, oriented times three, lying in bed in no apparent distress. HEAD AND NECK: Pupils are equally round and reactive to light. He has a tracheostomy covered with a trach collar at this time. CARDIOVASCULAR: S1, S2, regular rate. No edema of the bilateral lower extremities. RESPIRATORY: Chest is clear to auscultation bilaterally. He has a tracheostomy and covered with a trach collar at this time. ABDOMEN: Soft, obese. Positive bowel sounds. Nontender. MUSCULOSKELETAL: No clubbing or cyanosis. Pulses are 2+. CENTRAL NERVOUS SYSTEM: No focal deficit. Power is 5/5 in all extremities. PSYCHIATRIC: He has a depressed mood. LABORATORY REVIEW: CBC showed a WBC 5.6, hemoglobin 10.6, platelets of 146. BMP showed sodium 138, potassium 3.9, chloride 104, bicarbonate 25, BUN 15, creatinine is 4.6, calcium 9.9, magnesium is 2.1. CURRENT INPATIENT MEDICATIONS: The patient's medications were all reviewed by me. There is no change in the medications today as compared with yesterday. ASSESSMENT AND PLAN: 1. End-stage renal disease. The patient was dialyzed yesterday according to his regular schedule. Next hemodialysis will be done tomorrow. 2. Obesity hypoventilation. The patient has a tracheostomy, and he has a trach collar and needs ventilator overnight. 3. 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 Continue current dose of Renvela. 4. Anemia and end-stage renal disease. Hemoglobin level is optimal. Continue current dose of Aranesp 200 mcg with dialysis. 5. Depression. Continue current dose of Lexapro 15 mg daily.
--- NOTE | 2019-10-17 12:31 | IPNPDOC ---
Text Note Date of Service The patient was seen on 10/17/19. NOTE Subjective: Patient was seen and examined at the bedside. , Currently patient has had no new complaints. Denies chest pain, shortness of breath or palpitation is awaiting for transfer to [place], [place] external facility . Objective: Vitals (See below) General: Lying in bed, no acute distress, comfortable, flat affect, AAOx3 HEENT: NC, AT, + Trach CVS: +S1S2 Lungs: Air entry is symmetric bilaterally, although has poor. Inspra effort. No rhonchi, rales or wheezing Abdomen: Morbid obesity, remains soft, without any distention or tenderness Extremities: Lower extremities do no reveal any pitting edema, no calf tenderness is not appreciated Assessment and plan: Patient is 49 years old man with morbid obesity, hypoventilation syndrome, chronic hypercapnic hypoxemic respiratory failure s/p tracheostomy, ESRD on HD (TTS), who presented to the hospital with acute on chronic respiratory failure and AMS and found to be severely hypercarbic requiring escalation from his home trilogy to the [facility], antibiotics for presumed PNA, complicated by shock and NSVT. s/p Septic shock 2/2 pneumonia - Remains hemodynamically stable and afebrile; s/p Pressor support - No leukocytosis; PCT elevated on admission - Sputum culture 10/03: Proteus Mirabilis - Blood cultures all negative; Viral panel 09/30: Negative - s/p 7 days of Zoysn; s/p Vancomycin Acute and chronic respiratory failure with hypercapnia; Now ventilator dependent - Respiratory PCR panel was negative - No DVTs on LE Doppler venous ultrasound - Dr. Lopez (Cardiology); recommended Eliquis 2.5 BID; re: high risk of thromboembolism given prior history of Chronic PE / Chronic DVT - As an outpatient he was only on Trilogy at night; however, currently cannot be weaned off ventilator because of poor respiratory drive / periods of apnea - Dr. Baer on consultation; appreciate their input - Discussed with PFS about long-term acute care hospital placement; will facility to support ventilator and hemodialysis - possibly [place], [place] - Patient and HCP are open to transition to outside facility s/p V. tach - likely 2/2 infection and fever superimposed with electrolytes imbalance and acute on chronic respiratory failure with severe pulmonary hypertension - c/w Amiodarone - Cardiology on consultation ESRD on HD (TTS) - Follows with Dr. Curtis, nephrology on board s/p Metabolic encephalopathy - likely 2/2 acute hypercapnic hypoxemic respiratory failure - c/w ventilator per pulmonology Atrial fibrillation - Patient was initially was not on anticoagulation given his prior history of perinephric bleeding while on Coumadin - c/w rate / rhythm control with amiodarone - c/w Eliquis (re: high risk of DVT / PE) Morbid obesity - Pickwickian syndrome with obesity hypoventilation syndrome - Elizabeth lift at baseline at [facility] chronically - Patient is a candidate for bariatric surgery but has poor reserve and likely a poor surgical candidate and would need medical optimization before he would be considered. Depression / Insomnia - Patient has had his Escitalopram and Pramipexole - c/w Ramelteon - Doses have been adjusted at the recommendation of psychiatry Thrombocytopenia - Patient does not have any episodes of bleeding - Will continue to follow counts DVT prophylaxis - c/w full anticoagulation with Eliquis Disposition: - PFS working on placement; require support for ventilator and hemodialysis - Anticipate transition to [facility] on - Will be dialyzed on morning VS,Fishbone, I+O VS, Fishbone, I+O Laboratory Tests 10/17/19 04:41 Vital Signs Date Time Temp Pulse Resp B/P (MAP) Pulse Ox O2 Delivery O2 Flow Rate FiO2 10/17/19 10:07 15 10/17/19 08:00 97.0 62 118/60 (79) 96 Trach Collar 35 I&O- Last 24 Hours up to 6 AM 10/17/19 05:59 Output Total 2000 ml Balance -2000 ml KINSEY HARVEY MD Oct 17, 2019 12:31
--- NOTE | 2019-10-17 12:37 | IPN ---
DATE: 10/16/2019 SUBJECTIVE: Matthew is seen and examined this morning at the bedside receiving hemodialysis. He appears depressed and offers no new complaints. Nursing staff reports that he has been refusing his Renvela and I am going to change his phosphorus binder. His PermaCath is in good use and we will see if vascular can then do anything about his fistula while he is inpatient awaiting placement. Temperature 97.9, pulse 58, respiratory rate 16, blood pressure 116/59, saturating 99% on trache collar. General: Patient is seen lying in bed receiving his hemodialysis. He is a morbidly obese female. Extraocular muscles are intact. Tongue is moist. Neck is supple. Trache is in place. Jugular veins could not be assessed secondary to body habitus. Cardiac: S1, S2 regular rate. No edema in the lower extremities. Lungs are clear to auscultation bilaterally. No rales or rhonchi. Abdomen is soft and very obese and nontender. There are bowel sounds. Musculoskeletal: No clubbing or cyanosis. Neurologic: He is oriented and interactive and at baseline mentation. Psychiatric: He is depressed. Skin: Normal turgor and temperature. LABS: Sodium 138, potassium 4.0, bicarbonate 25, phosphorus 5.3, hemoglobin 10.5. INPATIENT MEDICATIONS: I discontinued his Renvela. I started him on Fosrenol 1 gram p.o. with meals. Remainder medications are unchanged from prior. PROBLEMS: 1. End-stage renal disease on hemodialysis. The patient is dialyzed today. The schedule is being adjusted because of the holiday. He is tolerating dialysis well. PermaCath is in good use. Electrolytes and volume status are acceptable. We will see if vascular surgery can do anything about his arteriovenous access while he is in-house here awaiting placement. 2. Anemia of end-stage renal disease. Continue current dose of Aranesp. Hemoglobin is optimal. 3. Chronic kidney disease mineral bone dystrophy. The patient was refusing his Renvela. His phosphorus level was fairly acceptable at 5.3 and I am switching him over to Fosrenol 1 gram with each meal. 4. Obesity hypoventilation status post tracheostomy. He is awaiting placement at a half-way that can accommodate his trache and also his dialysis dependency and bariatric status.
--- NOTE | 2019-10-17 13:44 | IPN ---
DATE: 10/17/2019 The patient is seen and examined this morning at the bedside watching his Ipad. Denies any overnight events or complaints, was dialyzed yesterday without any issues with two liters of fluid removed, is likely discharge pending on with transfer to [place], [place]. VITAL SIGNS: Temperature 97.0, pulse 62, respiratory rate 17, blood pressure 118/60, saturating 96% on tracheostomy collar. Intake yesterday was not fully recorded, dialysis yesterday removed two liters. Weight in the bed scale today is not recorded. GENERAL: The patient is seen sitting up in bed watching his Ipad, morbidly obese, in no acute distress. Extraocular muscles are intact. Pupils round and reactive to light. Tracheostomy in place. Jugular veins are unable to be assessed secondary to body habitus. Heart sounds are distant, S1, S2. There is a Perma-Cath in place with a clean dressing. There is no edema in the extremities. Lungs are clear to auscultation bilaterally. No crackle, rale or rhonchus. Abdomen is soft, obese and nontender. There are bowel sounds. SKIN: Normal turgor and temperature. MUSCULOSKELETAL: No clubbing, cyanosis or edema. There is an old nonfunctional access present in the arm. LABORATORY DATA: White count 7.0, hemoglobin 11, platelet 167. Sodium 136, potassium 3.7, calcium 10.4, PTH 271. INPATIENT MEDICATIONS: I started the patient on every other day Sensipar. His Lexapro was adjusted by the primary team as was his Mirapex and Rozerem. Remainder of medications are unchanged from prior. PROBLEMS: 1. End-stage renal disease, on hemodialysis. The patient's next dialysis treatment will be early morning. He will be dialyzed prior to [facility] [place]. His electrolytes and volume status are acceptable. He is presently being dialyzed via Perma-Cath. He will need outpatient evaluation for his nonfunctional arteriovenous access. 2. 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 Calcium level is slightly elevated at 10.4. His phosphorus and parathyroid hormone are acceptable. He was refusing Renvela. He has been switched over to Fosrenol and I am adding Sensipar every other day. 3. Anemia and end-stage renal disease. Hemoglobin level is satisfactory. Continue current dose of Aranesp. 4. Obesity hypoventilation syndrome, morbid obesity, Elizabeth lift dependent. It complicates his care. He is pending placement likely in [place] with transfer arranged for .
[2019-10-17] MEDS: AMIODARONE 200 MG TAB (PACERONE) PO SCH (13:45)
[2019-10-17] MEDS: CINACALCET 30 MG TAB (SENSIPAR) PO SCH (13:45)
[2019-10-17] MEDS: ESCITALOPRAM OXALATE 10 MG TAB (LEXAPRO) PO SCH (13:45)
[2019-10-17] MEDS: RAMELTEON 8 MG TAB (ROZEREM) PO SCH (21:03)
[2019-10-17] MEDS: PRAMIPEXOLE 0.25 MG TAB PO SCH (21:04)
[2019-10-18] VITALS (24 sets, daily range): BP systolic 80–102; BP diastolic 45–53; O2SAT 91–98
[2019-10-18] MEDS: ALPRAZolam 0.5 MG TAB PO PRN ×3 (05:22→20:26)
[2019-10-18] MEDS: PERCOCET 5MG/325MG TAB PO PRN ×3 (05:22→20:27)
[2019-10-18] MEDS: SLF 3 ML SYR IV SCH ×3 (05:23→20:34)
[2019-10-18 05:53] LABS: BASO # 0.1 10^3/uL (0.0-0.2); EOS # 0.3 10^3/uL (0.0-0.5); HEMATOCRIT 36.9 % (42.0-52.0); HEMOGLOBIN 11.1 g/dl (13.5-17.5); LYMPH # 2.7 10^3/uL (1.5-5.0); LYMPH % 39.7 % (24.0-44.0); MEAN CORPUSCULAR HEMOGLOBIN 33.2 pg (27.0-33.0); MEAN CORPUSCULAR HGB CONC 30.1 g/dl (32.0-36.5); MEAN CORPUSCULAR VOLUME 110.5 fl (80.0-96.0); MONO # 0.5 10^3/uL (0.0-0.8); MONO % 6.8 % (0.0-5.0); NEUTROPHILS # 3.2 10^3/uL (1.5-8.5); NEUTROPHILS % 46.8 % (36.0-66.0); PLATELET COUNT, AUTOMATED 176 10^3/uL (150-450); RED BLOOD COUNT 3.34 10^6/uL (4.30-6.10); WHITE BLOOD COUNT 6.8 10^3/uL (4.0-10.0)
[2019-10-18 06:15] LABS: CALCIUM LEVEL 10.4 MG/DL (8.5-10.1); CREATININE FOR GFR 6.24 MG/DL (0.70-1.30); GLOMERULAR FILTRATION RATE 10.3 (>60); POTASSIUM SERUM 4.1 MEQ/L (3.5-5.1)
[2019-10-18] MEDS: IPRATROPIUM 0.5MG/ALBUTEROL 2.5MG INH SOL UD 3ML (DUONEB)(J7620) INH SCH ×2 (07:30→18:50)
[2019-10-18] MEDS: SENOKOT S TAB PO SCH ×2 (08:25→20:26)
[2019-10-18] MEDS: NEPHRO-VIT TAB (NEPHROCAPS) PO SCH (08:25)
[2019-10-18] MEDS: LANTHANUM CARBONATE 500 MG CHEW TABLET PO SCH ×4 (08:25→19:07)
[2019-10-18] MEDS: APIXABAN 2.5 MG TAB (ELIQUIS) PO SCH ×2 (08:25→20:34)
[2019-10-18] MEDS: DOCUSATE SODIUM 100 MG CAP PO SCH (08:25)
--- NOTE | 2019-10-18 09:17 | IPNPDOC ---
Text Note Date of Service The patient was seen on 10/18/19. NOTE Subjective: Patient was seen and examined at the bedside. Patient reports that he still feels tired after waking up this morning. He denies any nausea, vomiting, is reluctant to answer any other questions. Objective: Vitals (See below) General: Lying in bed, no acute distress, comfortable, flat affect, awake / alert HEENT: NC, AT, + Trach CVS: +S1S2 Lungs: Symmetric air entry bilaterally, although effort is poor, no auscultated rhonchi, rales or wheezing Abdomen: Morbid obesity, remains soft without distention or tenderness Extremities: Lower extremities do no reveal any pitting edema, no calf tenderness is not appreciated Assessment and plan: Patient is 49 years old man with morbid obesity, hypoventilation syndrome, chronic hypercapnic hypoxemic respiratory failure s/p tracheostomy, ESRD on HD ( TTS), who presented to the hospital with acute on chronic respiratory failure and AMS and found to be severely hypercarbic requiring escalation from his home trilogy to the vent, antibiotics for presumed PNA, complicated by shock and NSVT. s/p Septic shock 2/2 pneumonia - Remains hemodynamically stable and afebrile; s/p Pressor support - No leukocytosis; PCT elevated on admission - Sputum culture 10/03: Proteus Mirabilis; Blood cultures all negative; Viral panel 09/30: Negative - s/p 7 days of Zoysn; s/p Vancomycin Acute and chronic respiratory failure with hypercapnia; Now ventilator dependent - Respiratory PCR panel was negative - No DVTs on LE Doppler venous ultrasound - Dr. Lopez (Cardiology); recommended Eliquis 2.5 BID; re: high risk of thromboembolism given prior history of Chronic PE / Chronic DVT - As an outpatient he was only on Trilogy at night; however, currently cannot be weaned off ventilator because of poor respiratory drive / periods of apnea - Dr. Baer on consultation; appreciate their input - Discussed with PFS placement to outside facility for ventilator weaning (with HD support) - likely ITZEL Rahman s/p V. tach - likely 2/2 infection and fever superimposed with electrolytes imbalance and acute on chronic respiratory failure with severe pulmonary hypertension - c/w Amiodarone - Cardiology on consultation ESRD on HD (TTS) - Follows with Dr. Curtis, nephrology on board s/p Metabolic encephalopathy - likely 2/2 acute hypercapnic hypoxemic respiratory failure - c/w ventilator per pulmonology Atrial fibrillation - Patient was initially was not on anticoagulation given his prior history of perinephric bleeding while on Coumadin - c/w rate / rhythm control with amiodarone - c/w Eliquis (re: high risk of DVT / PE) Morbid obesity - Pickwickian syndrome with obesity hypoventilation syndrome - Elizabeth lift at baseline at [facility] chronically - Patient is a candidate for bariatric surgery but has poor reserve and likely a poor surgical candidate and would need medical optimization before he would be considered. Depression / Insomnia - Patient has had his Escitalopram and Pramipexole - c/w Ramelteon - Doses have been adjusted at the recommendation of psychiatry s/p Thrombocytopenia - Patient does not have any episodes of bleeding - Will continue to follow counts DVT prophylaxis - c/w full anticoagulation with Eliquis Disposition: - PFS working on placement; require support for ventilator and hemodialysis - Anticipate transition to [facility] on - Will be dialyzed on morning VS,Edubone, I+O VS, Fishbone, I+O Laboratory Tests 10/18/19 05:15 Vital Signs Date Time Temp Pulse Resp B/P (MAP) Pulse Ox O2 Delivery O2 Flow Rate FiO2 10/18/19 08:00 97.3 60 16 90/53 (65) 94 Ventilator 10/18/19 07:31 35 I&O- Last 24 Hours up to 6 AM 10/18/19 06:00 Intake Total 270 ml Output Total 0 ml Balance 270 ml KINSEY HARVEY MD Oct 18, 2019 09:17
[2019-10-18] MEDS: ESCITALOPRAM OXALATE 10 MG TAB (LEXAPRO) PO SCH (13:02)
[2019-10-18] MEDS: AMIODARONE 200 MG TAB (PACERONE) PO SCH (13:03)
[2019-10-18] MEDS: PRAMIPEXOLE 0.25 MG TAB PO SCH (20:26)
[2019-10-18] MEDS: RAMELTEON 8 MG TAB (ROZEREM) PO SCH (20:26)
[2019-10-19] VITALS (13 sets, daily range): BP systolic 96–98; BP diastolic 48–60; O2SAT 93–97
[2019-10-19] MEDS: ALPRAZolam 0.5 MG TAB PO PRN ×2 (04:25→12:11)
[2019-10-19] MEDS: PERCOCET 5MG/325MG TAB PO PRN ×2 (04:25→12:12)
[2019-10-19 04:52] LABS: BASO # 0.1 10^3/uL (0.0-0.2); BASO % 0.9 % (0.0-1.0); EOS # 0.4 10^3/uL (0.0-0.5); EOS % 5.7 % (0.0-3.0); HEMATOCRIT 35.7 % (42.0-52.0); LYMPH # 2.9 10^3/uL (1.5-5.0); LYMPH % 42.2 % (24.0-44.0); MEAN CORPUSCULAR HEMOGLOBIN 33.4 pg (27.0-33.0); MEAN CORPUSCULAR HGB CONC 30.8 g/dl (32.0-36.5); MEAN CORPUSCULAR VOLUME 108.5 fl (80.0-96.0); MONO # 0.4 10^3/uL (0.0-0.8); MONO % 5.4 % (0.0-5.0); NEUTROPHILS # 3.1 10^3/uL (1.5-8.5); NEUTROPHILS % 45.4 % (36.0-66.0); PLATELET COUNT, AUTOMATED 187 10^3/uL (150-450); RED BLOOD COUNT 3.29 10^6/uL (4.30-6.10); WHITE BLOOD COUNT 6.9 10^3/uL (4.0-10.0)
[2019-10-19] MEDS: SLF 3 ML SYR IV SCH (05:18)
[2019-10-19 05:20] LABS: CALCIUM LEVEL 9.8 MG/DL (8.5-10.1); CREATININE FOR GFR 7.73 MG/DL (0.70-1.30); MAGNESIUM LEVEL 2.1 MG/DL (1.8-2.4)
--- NOTE | 2019-10-19 06:43 | IPN ---
DATE OF SERVICE: 10/18/2019 SUBJECTIVE: Matthew is seen and examined this morning at the bedside. He denies any overnight events or issues. He remains on a trache collar. He is for a probable transfer to [place], [place], tomorrow. He will be dialyzed early tomorrow morning prior to medical transport. He appears considerably depressed. Vital Signs: Temperature 97.3, pulse 60, respiratory rate 16, blood pressure 90/53, saturating 94% on trache collar. Ins and outs yesterday were not fully recorded. Weight in the bed scale is not recorded. General: The patient is seen lying flat in bed, a morbidly obese male, in no acute distress. He keeps his face covered most of the time. Makes eye contact upon command and mouths when he speaks. Extraocular muscles are intact. Tongue is moist. There is a trache collar. Jugular veins could not be assessed secondary to body habitus. Cardiac: S1, S2. Regular rate and rhythm. No edema in the legs. Lungs show symmetric air entry. No rales or rhonchi. Abdomen is obese and soft. She does not grimace to palpation. The extremities are negative for edema. There is no functional arteriovenous access in the arms. There is a Perma-Cath present in the right chest wall. Neurologic: He is at his baseline mentation. He is cooperative with physical exam. He is unable to verbalize, but does mouth his responses. White count 6.8, hemoglobin 11.1, sodium 137, potassium 4.1, calcium 10.4. INPATIENT MEDICATIONS: Reviewed by myself and no changes compared to yesterday. PROBLEMS: 1. End-stage renal disease on hemodialysis. The patient's next treatment will be on prior to his transfer to [place]. His volume status is acceptable. His electrolytes are reasonable. He is presently dialyzing via Perma-Cath because of recurrent issues with his arteriovenous access and this will need to be addressed as an outpatient. 2. Atrial fibrillation. The patient is rate controlled with amiodarone and anticoagulated with low dose Eliquis. 3. Anemia related to chronic renal failure. He continues on Aranesp and his hemoglobin is optimal. 4. Renal osteodystrophy. There is mild hypercalcemia. His phosphorus and parathyroid hormone are acceptable. He was started on Sensipar recently. He continues on Fosrenol.
[2019-10-19] MEDS: IPRATROPIUM 0.5MG/ALBUTEROL 2.5MG INH SOL UD 3ML (DUONEB)(J7620) INH SCH (07:35)
[2019-10-19] MEDS: SENOKOT S TAB PO SCH (08:07)
[2019-10-19] MEDS: LANTHANUM CARBONATE 500 MG CHEW TABLET PO SCH ×2 (08:07→12:27)
[2019-10-19] MEDS: CINACALCET 30 MG TAB (SENSIPAR) PO SCH (08:07)
[2019-10-19] MEDS: NEPHRO-VIT TAB (NEPHROCAPS) PO SCH (08:07)
[2019-10-19] MEDS: APIXABAN 2.5 MG TAB (ELIQUIS) PO SCH (08:07)
[2019-10-19] MEDS: DOCUSATE SODIUM 100 MG CAP PO SCH (08:08)
[2019-10-19] MEDS ORDERED: ELIQ2.5T PO (08:33)
[2019-10-19] MEDS ORDERED: LEXA1TAB2 PO (08:33)
[2019-10-19] MEDS ORDERED: MIRA0.12 PO (08:33)
[2019-10-19] MEDS: ESCITALOPRAM OXALATE 10 MG TAB (LEXAPRO) PO SCH (12:27)
[2019-10-19] MEDS: AMIODARONE 200 MG TAB (PACERONE) PO SCH (12:27)
[2019-10-19] MEDS ORDERED: HEPARIN 1,000 UNITS/ML 10ML VIAL (FOR RADIOLOGY& DIALYSIS ONLY) IV ONE (12:45)
[2019-10-19] MEDS ORDERED: HEPARIN 1,000 UNITS/ML 10ML VIAL (FOR RADIOLOGY& DIALYSIS ONLY) XX ONE (12:45)
--- NOTE | 2019-10-19 15:27 | DS.PDOC ---
Discharge Summary General Date of Admission Sep 30, 2019 at 17:06 Date of Discharge 10/19/2019 Discharge Summary PROCEDURES PERFORMED DURING STAY: Left femoral arterial line on 10/02/[address] Estrada Left femoral triple-lumen catheter on 10/02/[address] Estrada ADMITTING DIAGNOSES / DISCHARGE DIAGNOSES: s/p Septic shock 2/2 pneumonia Acute and chronic respiratory failure with hypercapnia; Now ventilator dependent s/p V. tach - likely 2/2 infection and fever superimposed with electrolytes imbalance and acute on chronic respiratory failure with severe pulmonary hypertension ESRD on HD (TTS) s/p Metabolic encephalopathy - likely 2/2 acute hypercapnic hypoxemic respiratory failure Atrial fibrillation Morbid obesity Depression / Insomnia s/p Thrombocytopenia DVT prophylaxis COMPLICATIONS/CHIEF COMPLAINT: Shortness of breath HISTORY OF PRESENT ILLNESS: Patient is 49 years old male with past medical history of morbid obesity, hypoventilation syndrome, chronic hypercapnic respiratory failure status post tracheostomy, end-stage renal diseases presented hospital with acute on chronic respiratory failure. On 09/30 after dialysis patient developed acute hypoxemic hypercapnic respiratory failure with mental confusion. Patient was found to have pH 7.1, CO2 75, O2 43. Also patient stated that he has been having chills. In emergency room patient was found to have no leukocytosis, he is afebrile, he was placed on the BiPAP with his home settings. Urine analysis was unremarkable. Chest XR some degree of cardiomegaly with left atrial and ventricular enlargement and some basilar fibrotic or atelectatic change in the left lower lung zone. No hernan edema, dense consolidation, or gross effusion. Patient was admitted to the hospitalist service for further evaluation and treatment. On 10/01 patient developed SVT, become hypotensive and was found to be in septic shock. He was transferred to the ICU for a higher level of care. HOSPITAL COURSE: s/p Septic shock 2/2 pneumonia - Remains hemodynamically stable and afebrile; s/p Pressor support - No leukocytosis; PCT elevated on admission - Sputum culture 10/03: Proteus Mirabilis; Blood cultures all negative; Viral panel 09/30: Negative - s/p 7 days of Zoysn; s/p Vancomycin Acute and chronic respiratory failure with hypercapnia; Now ventilator dependent - Respiratory PCR panel was negative - No DVTs on LE Doppler venous ultrasound - Dr. Lopez (Cardiology); recommended Eliquis 2.5 BID; re: high risk of thr omboembolism given prior history of Chronic PE / Chronic DVT - As an outpatient he was only on Trilogy at night; however, currently cannot be weaned off ventilator because of poor respiratory drive / periods of apnea - Dr. Baer on consultation; appreciate their input - Will be transferred to [place], [place] under the care of Dr. Meier; s/p V. tach - likely 2/2 infection and fever superimposed with electrolytes imbalance and acute on chronic respiratory failure with severe pulmonary hypertension - c/w Amiodarone - Cardiology on consultation ESRD on HD (TTS) - Follows with Dr. Curtis, nephrology on board s/p Metabolic encephalopathy - likely 2/2 acute hypercapnic hypoxemic respiratory failure - c/w ventilator per pulmonology Atrial fibrillation - Patient was initially was not on anticoagulation given his prior history of perinephric bleeding while on Coumadin - c/w rate / rhythm control with amiodarone - c/w Eliquis (re: high risk of DVT / PE) Morbid obesity - Pickwickian syndrome with obesity hypoventilation syndrome - Elizabeth lift at baseline at [facility] chronically - Patient is a candidate for bariatric surgery but has poor reserve and likely a poor surgical candidate and would need medical optimization before he would be considered. Depression / Insomnia - Patient has had his Escitalopram and Pramipexole - c/w Ramelteon - Doses have been adjusted at the recommendation of psychiatry s/p Thrombocytopenia - Patient does not have any episodes of bleeding - Will continue to follow counts DVT prophylaxis - c/w full anticoagulation with Eliquis DISCHARGE MEDICATIONS: Please see below. ALLERGIES: Please see below. PHYSICAL EXAMINATION ON DISCHARGE: Vitals (See below) General: Lying in bed, no acute distress, comfortable, flat affect, awake / alert HEENT: NC, AT, + Trach CVS: +S1S2 Lungs: Symmetric, poor inspiratory effort, no appreciable rhonchi / wheezing / crackles Abdomen: Morbid obesity, remains soft without distention or tenderness Extremities: Lower extremities do no reveal any pitting edema, no calf tenderness is not appreciated LABORATORY DATA: Please see below. ACTIVITY: [As tolerated]. DISCHARGE PLAN: Follow up with Dr. Meier at [place], [place] Remain compliant with treatment plan and medications Return to the ER if you experience any problems DISPOSITION: Transfer to [place], [place] Facility DISCHARGE CONDITION: [Stable]. TIME SPENT ON DISCHARGE: 40 minutes Vital Signs/I&Os Vital Signs Date Time Temp Pulse Resp B/P (MAP) Pulse Ox O2 Delivery O2 Flow Rate FiO2 10/19/19 12:12 18 Trach Collar 35 10/19/19 12:00 97.5 60 96/55 (69) 99 I&O- Last 24 Hours up to 6 AM 10/19/19 06:00 Intake Total 390 ml Output Total 0 ml Balance 390 ml Laboratory Data Labs 24H Laboratory Tests 2 10/19/19 04:27: Immature Granulocyte % (Auto) 0.4, Neutrophils (%) (Auto) 45.4, Lymphocytes (%) (Auto) 42.2, Monocytes (%) (Auto) 5.4H, Eosinophils (%) (Auto) 5.7H, Basophils (%) (Auto) 0.9, Neutrophils # (Auto) 3.1, Lymphocytes # (Auto) 2.9, Monocytes # (Auto) 0.4, Eosinophils # (Auto) 0.4, Basophils # (Auto) 0.1, Nucleated Red Blood Cells % (auto) 0.0, Anion Gap 11, Glomerular Filtration Rate 8.0L, Calcium Level 9.8, Magnesium Level 2.1 CBC/BMP Laboratory Tests 10/19/19 04:27 Discharge Medications Scheduled Amiodarone Hcl (Pacerone) 200 Mg Tab, 200 MG PO DAILY, (Reported) TAKES AT 1200 Apixaban (Eliquis) 2.5 Mg Tablet, 1 TAB PO BID Docusate Sodium (Colace) 100 Mg Capsule, 200 MG PO DAILY, (Reported) TAKES AT 1100 Ergocalciferol (Vitamin D2) (Drisdol) 50,000 Unit Cap, 50,000 UNIT PO 1XWK, (Reported) WEDNESDAY AT 1100 Escitalopram Oxalate (Lexapro) 20 Mg Tablet, 1.5 TAB PO DAILY Ferric Citrate (Auryxia) 210 Mg Tablet, 630 MG PO WM, (Reported) TAKES AT 0600, 1200, AND 1700 ON WEDNESDAY, WEDNESDAY AND WEDNESDAY (DIALYSIS DAYS) AND TAKES AT 0800, 1130, AND 1630 ON WEDNESDAY, WEDNESDAY, WEDNESDAY AND WEDNESDAY. Gabapentin (Gabapentin) 300 Mg Capsule, 300 MG PO TID, (Reported) 1200, 1600, 2000 Ipratropium/Albuterol Sulfate (Iprat-Albut 0.5-3(2.5) mg/3 ml) 1 Maria G Maria G, 1 MARIA G INH BID, (Reported) TAKES AT 0500 AND 1700 ON WEDNESDAY, WEDNESDAY AND WEDNESDAY (DIALYSIS DAYS) AND TAKES AT 0800 AND 2000 ON WEDNESDAY, WEDNESDAY, WEDNESDAY AND WEDNESDAY. Patiromer Calcium Sorbitex (Veltassa) 8.4 Gm Powd.pack, 8.4 GM PO 1XWK, (Reported) WEDNESDAY Pramipexole Di-HCl (Mirapex) 0.125 Mg Tablet, 0.375 MG PO QHS Sennosides/Docusate Sodium (Senna-S Tablet) 1 Tab Tab, 2 TAB PO BID, (Reported) Sevelamer Carbonate (Renvela) 800 Mg Tab, 4,800 MG PO TID, (Reported) TAKES AT 0800, 1200, AND 1700 ON NON-DIALYSIS DAYS (WED, WED, WED, AND WED). TAKES AT 0500, 1200, 1700 ON , , SAT Vit B Comp No.3/Folic/C/Biotin (Nephro-Shante Rx Tablet) 1 Tab Tab, 1 TAB PO DAILY, (Reported) TAKES AT 1200 Scheduled PRN Acetaminophen (Acetaminophen) 325 Mg Tab, 650 MG PO Q4H PRN for PAIN / FEVER, (Reported) Albuterol Sulf (Albuterol Sulfate) 2.5 Mg/3 Ml Nebu, 2.5 MG INH Q2H PRN for COPD, (Reported) Albuterol Sulfate (Proventil Hfa) 6.7 Gm Hfa.aer.ad, 2 PUFF INH Q4H PRN for SOB/WHEEZING, (Reported) Alprazolam (Alprazolam) 1 Mg Tablet, 1 MG PO Q6H PRN for ANXIETY, (Reported) Bisacodyl (Dulcolax) 10 Mg Supp.rect, 10 MG CA DAILY PRN for CONSTIPATION, (Reported) Guaifenesin/Dextromethorphan (Guaifenesin Dm Syrup) 5 Ml Syrup, 10 ML PO Q4H PRN for COUGH/SECRETIONS, (Reported) Oxycodone HCl/Acetaminophen (Oxycodone-Acetaminophen 5-325) 1 Each Tablet, 1 TAB PO Q6H PRN for PAIN, (Reported) Phenyleph/Shark Oil/Mo/Petrol (Preparation H Ointment) 28 Gm Oint.appl, 1 APPLIC CA BID PRN for HEMORRHOIDS, (Reported) Sodium Phosphate,Gosper-Dibasic (Enema) 133 Ml Enema, 1 MAHI CA DAILY PRN for CONSTIPATION, (Reported) Allergies Coded Allergies: moxifloxacin (Verified Allergy, Intermediate, RASH, 07/05/19) codeine (Verified Allergy, Unknown, 09/30/19) valsartan (Verified Allergy, Unknown, 09/30/19) KINSEY HARVEY MD Oct 19, 2019 15:27
--- NOTE | 2019-10-20 11:27 | IPN ---
DATE: 10/19/2019 SUBJECTIVE: Matthew is seen and examined this morning at his bedside receiving his hemodialysis treatment prior to his transfer to [place]. He denies any overnight events or issues. He is fairly depressed but is trying to be in good spirits. Denies any chest pain, shortness of breath, nausea, or diarrhea. VITAL SIGNS: Temperature 97.5, pulse 60, respiratory rate 14, blood pressure 96/55, saturating 99% on trach collar. Intake yesterday was not fully recorded. Dialysis today removed 3 liters. Weight in the bed scale today is not recorded. GENERAL: The patient is seen receiving his dialysis treatment, morbidly obese male, awake, alert, oriented. No distress. Extraocular muscles are intact. The tongue is moist. There is a trach collar. Jugular veins cannot be assessed secondary to body habitus. CARDIAC: S1, S2, regular rate and rhythm. There is a tunneled Perm-A-Cath that is presently in use. LUNGS: Clear to auscultation bilaterally. No crackle, rale, or rhonchus. Breath sounds are distant secondary to body habitus. ABDOMEN: Soft, nontender. There are positive bowel sounds. EXTREMITIES: Negative for edema. NEUROLOGIC: He is at his baseline mentation. PSYCHIATRIC: He appears depressed. LABORATORY DATA: White count 6.9, hemoglobin 11, sodium 139, potassium 4.0. INPATIENT MEDICATIONS: Reviewed by myself and no changes compared to yesterday. PROBLEMS: 1. End-stage renal disease, on hemodialysis. The patient was dialyzed today for 3 hours prior to transfer to [place]. His electrolytes and volume status are acceptable. His Perm-A-Cath is in use. He will need to arteriovenous access to be addressed as an outpatient. 2. Atrial fibrillation. He is rate controlled with amiodarone and anticoagulated with low-dose Eliquis 3. Anemia related to chronic renal failure. Continues on Aranesp. Hemoglobin is optimal. 4. Renal osteodystrophy. He was started on Sensipar recently. His parathyroid hormone is acceptable. He continues on Forenol, which was also started recently because he was refusing Renvela. He continues on a renal diet.
== END 2019-10-19 13:10 | disposition short-term general hospital (02) | DRG 207 ==
LOC: M ED 11:11 → M ED INP 17:06 → M PCU 19:09 → M ICU 10-02 00:41 → M PCU 10-12 16:03
PROVIDERS: ADMIT Internal Medicine; ATTEND Internal Medicine
PROC: 04H Lower Arteries, Insertion (ICD-10-PCS; principal; 2019-10-02)
PROC: 5A1955Z Respiratory Ventilation, Greater than 96 Consecutive Hours (ICD-10-PCS; 2019-10-02)
PROC: 02HV33Z Insertion of Infusion Device into Superior Vena Cava, Percutaneous Approach (ICD-10-PCS; 2019-10-03)
PROC: 0JH63XZ Insertion of Tunneled Vascular Access Device into Chest Subcutaneous Tissue and Fascia, Percutaneous Approach (ICD-10-PCS; 2019-10-03)
DX: J96.22 Acute and chronic respiratory failure with hypercapnia (principal); G93.41 Metabolic encephalopathy; N18.6 End stage renal disease; A41.9 Sepsis, unspecified organism; R65.21 Severe sepsis with septic shock; Z68.43 Body mass index [BMI] 50.0-59.9, adult; I47.2 Ventricular tachycardia; I50.32 Chronic diastolic (congestive) heart failure; E66.2 Morbid (severe) obesity with alveolar hypoventilation; N25.81 Secondary hyperparathyroidism of renal origin; I13.2 Hypertensive heart and chronic kidney disease with heart failure and with stage 5 chronic kidney disease, or end stage renal disease; D69.6 Thrombocytopenia, unspecified; G47.33 Obstructive sleep apnea (adult) (pediatric); I27.20 Pulmonary hypertension, unspecified; I48.0 Paroxysmal atrial fibrillation; Z79.899 Other long term (current) drug therapy; Z88.5 Allergy status to narcotic agent; Z88.8 Allergy status to other drugs, medicaments and biological substances; Z93.0 Tracheostomy status; F41.9 Anxiety disorder, unspecified; F32.9 Major depressive disorder, single episode, unspecified; Z91.19 Patient's noncompliance with other medical treatment and regimen; D63.1 Anemia in chronic kidney disease; E83.39 Other disorders of phosphorus metabolism; E87.5 Hyperkalemia; K21.9 Gastro-esophageal reflux disease without esophagitis; I44.0 Atrioventricular block, first degree; E78.5 Hyperlipidemia, unspecified

== ENCOUNTER 2019-12-27 10:25 | Inpatient (IN) | payer MEDICARE, MEDICAID ==
[~2019-12-27] VITALS: Ht 195.6 cm; Wt 160.2 kg
[2019-12-27] MEDS: SENOKOT S TAB PO SCH ×2 (09:00→20:52)
[2019-12-27] MEDS: DOCUSATE SODIUM 100 MG CAP PO SCH (09:00)
[~2019-12-27 10:25] MED LIST changes: +ELIQ2.5T PO; +FAMO20TA PO; +GABA-843 PO; +HEPARIN SOD (PORCINE) 5000 UNITS/ML VIAL (J1644 PER 1000UNITS) As Ordered ONE; +ISOVUE-300 61% 50ML VIAL (Q9967) As Ordered ONE; +LIDOCAINE 1% SDV INJ 30 ML VIAL As Ordered ONE; +LIDOCAINE 2% INJ 100 MG/5 ML SDV (FOR ANES.) As Ordered ONE; +MIDAZOLAM INJ 2 MG/2 ML VIAL (J2250) As Ordered ONE; +MIDO10TA PO; +NS 1,000 ML IV ONE; +ONDANSETRON 4MG/2ML VIAL (J2405) As Ordered ONE; +OXYC15TA76 PO; +PHENYLephrine HCL 500 MCG/5 ML (100MCG/ML) SYRINGE (J2370) As Ordered ONE; +ROCURONIUM BROMIDE 50 MG/5 ML VIAL As Ordered ONE; +SUGAMMADEX SODIUM 500 MG/5 ML VIAL (BRIDION) As Ordered ONE; +VELT1POW PO; +ceFAZolin SOD 1 GM in D5W MINI-BAG PLUS 50 ML IV ONE; +ceFAZolin SOD 2 GM in IV 1 EA IV ONE; +dexameTHASONE 4 MG/ML 1ML VIAL (J1100) As Ordered ONE; +ePHEDrine SULFATE 25 MG/5 ML(5MG/ML) SYRINGE As Ordered ONE; +fentaNYL 250 MCG/5 ML INJECTION (J3010) As Ordered ONE; +propofoL 200 MG/20 ML VIAL As Ordered ONE
[2019-12-27 11:51] LABS: ALBUMIN 3.6 GM/DL (3.2-5.2); BILIRUBIN,TOTAL 0.7 MG/DL (0.2-1.0); CALCIUM LEVEL 10.3 MG/DL (8.5-10.1); CREATININE FOR GFR 6.5 MG/DL (0.70-1.30); GLOMERULAR FILTRATION RATE 9.8 (>60); TOTAL PROTEIN 7.8 GM/DL (6.4-8.2)
[2019-12-27] MEDS ORDERED: PERCOCET 5MG/325MG TAB PO PRN (12:15)
[2019-12-27] MEDS ORDERED: ACETAMINOPHEN TAB 650MG DOSE (2X325MG) PO PRN (12:15)
[2019-12-27] MEDS ORDERED: BISACODYL 10 MG SUPP PR PRN (12:15)
[2019-12-27] MEDS ORDERED: ALBUTEROL SULFATE 2.5 MG/0.5 ML INH NEB SOLN INH PRN (12:15)
--- NOTE | 2019-12-27 14:34 | CR.PDOC ---
General Date of Consultation: Dec 27, [address] Ybarra. HPI: 49 year old M with a past medical history significant for ESRD currently dialyzing with PermCath related to failure of right Mor AV fistula. The patient was scheduled to proceed 12/27/19 with ligation of his Mor fistula right upper extremity and creation of brachiocephalic AV fistula as per Dr. Ybarra. The patient was last dialyzed 12/26/19 however when the patient arrived today and had preoperative blood work completed potassium was noted to be 5.0 with sodium 134 therefore the patient's procedure was postponed and his admission was arranged for dialysis and further medical optimization. PAST MEDICAL HISTORY: Morbid obesity. Obesity hypoventilation syndrome. Chronic hypercapnic respiratory failure, status post tracheostomy. End-stage renal disease on dialysis. Obstructive sleep apnea. Paroxysmal atrial fibrillation. Chronic anxiety and depression. Hyperparathyroidism. Spinal stenosis. Thrombosis of arteriovenous fistula. Pickwickian syndrome. PAST SURGICAL HISTORY: Tracheostomy. PermaCath placement. SOCIAL HISTORY: Patient does not smoke. FAMILY HISTORY: Noncontributory. ROS: As noted in HPI, otherwise 11pt ROS of systems reviewed and unremarkable. PE: GEN: 49yoM, No acute distress. Alert and oriented x 3. HEENT: Normocephalic, atraumatic. Moist mucous membranes. SKIN: [place], dry, warm. No rashes. NEURO: No focal deficits. A&P: 1. ESRD/need for dialysis Dialysis management as per nephrology. Currently the patient is using PermCath for dialysis. Tentative plan is for brachiocephalic AV fistula creation on the right and ligation of Mor fistula on the right. Informed consent has been previously obtained as per Dr. Ybarra and placed on the chart. His procedure today is postponed related to hyperkalemia, admission today is arranged with hospitalist and nephrology is consulted for dialysis management. Tentative plan for dialysis in the morning then to possibly proceed with surgical procedure as per Dr. Ybarra. The patient has been noted to be very high risk for any surgical procedures due to morbid obesity and cardiopulmonary comorbidities. Vital Signs/I&O Vital Signs Date Time Temp Pulse Resp B/P (MAP) Pulse Ox O2 Delivery O2 Flow Rate FiO2 12/27/19 10:37 98.1 69 20 94/62 (73) 98 Room Air Laboratory Data Labs 24H Laboratory Tests 2 12/27/19 11:03: Anion Gap 8, Glomerular Filtration Rate 9.8L, Calcium Level 10.3H, Total Bilirubin 0.7, Aspartate Amino Transf (AST/SGOT) 35, Alanine Aminotransferase (ALT/SGPT) 54, Alkaline Phosphatase 123H, Total Protein 7.8, Albumin 3.6, Albumin/Globulin Ratio 0.86L CBC/BMP Laboratory Tests 12/27/19 11:03 Allergies Coded Allergies: moxifloxacin (Verified Allergy, Intermediate, RASH, 12/25/19) codeine (Verified Allergy, Unknown, 12/25/19) valsartan (Verified Allergy, Unknown, 12/25/19) Home Medications Scheduled Amiodarone Hcl (Pacerone) 200 Mg Tab, 200 MG PO DAILY, (Reported) TAKES AT 1200 Apixaban (Eliquis) 2.5 Mg Tablet, 1 TAB PO BID for 30 Days, #60 Docusate Sodium (Colace) 100 Mg Capsule, 200 MG PO DAILY, (Reported) TAKES AT 1100 Famotidine (Famotidine) 20 Mg Tablet, 20 MG PO DAILY, (Reported) Ferric Citrate (Auryxia) 210 Mg Tablet, 630 MG PO WM, (Reported) TAKES AT 0600, 1200, AND 1700 ON WEDNESDAY, WEDNESDAY AND WEDNESDAY (DIALYSIS DAYS) AND TAKES AT 0800, 1130, AND 1630 ON WEDNESDAY, WEDNESDAY, WEDNESDAY AND WEDNESDAY. Ipratropium/Albuterol Sulfate (Iprat-Albut 0.5-3(2.5) mg/3 ml) 1 Maria G Maria G, 1 MARIA G INH BID, (Reported) TAKES AT 0500 AND 1700 ON WEDNESDAY, WEDNESDAY AND WEDNESDAY (DIALYSIS DAYS) AND TAKES AT 0800 AND 2000 ON WEDNESDAY, WEDNESDAY, WEDNESDAY AND WEDNESDAY. Midodrine HCl (Midodrine HCl) 10 Mg Tablet, 10 MG PO TID, (Reported) Oxycodone Hcl (Oxycodone HCl) 15 Mg Tablet, 10 MG PO PRN, (Reported) Pramipexole Di-HCl (Mirapex) 0.125 Mg Tablet, 0.125 MG PO DAILY, (Reported) Sennosides/Docusate Sodium (Senna-S Tablet) 1 Tab Tab, 2 TAB PO BID, (Reported) Sertraline Hcl (Zoloft) 100 Mg Tablet, 100 MG PO DAILY, (Reported) Sevelamer Carbonate (Renvela) 800 Mg Tab, 4,800 MG PO TID, (Reported) TAKES AT 0800, 1200, AND 1700 ON NON-DIALYSIS DAYS (SUN, MON, WED, AND FRI). TAKES AT 0500, 1200, 1700 ON TU, TH, SAT Scheduled PRN Acetaminophen (Acetaminophen) 325 Mg Tab, 650 MG PO Q4H PRN for PAIN / FEVER, (Reported) Albuterol Sulf (Albuterol Sulfate) 2.5 Mg/3 Ml Nebu, 2.5 MG INH Q2H PRN for COPD, (Reported) Albuterol Sulfate (Proventil Hfa) 6.7 Gm Hfa.aer.ad, 2 PUFF INH Q4H PRN for SOB/WHEEZING, (Reported) Alprazolam (Alprazolam) 1 Mg Tablet, 1 MG PO Q6H PRN for ANXIETY, (Reported) Bisacodyl (Dulcolax) 10 Mg Supp.rect, 10 MG NV DAILY PRN for CONSTIPATION, (Reported) Oxycodone HCl/Acetaminophen (Oxycodone-Acetaminophen 5-325) 1 Each Tablet, 1 TAB PO Q6H PRN for PAIN, (Reported) Sarahi Durant Dec 27, 2019 14:34
[2019-12-27] MEDS ORDERED: PERCOCET 5MG/325MG TAB As Ordered ONE (14:52)
[2019-12-27 15:30] VITALS: BP 148/77
[2019-12-27] MEDS: MIDODRINE 5 MG TAB PO SCH (17:01)
[2019-12-27] MEDS: (RENVELA) SEVELAMER **CARBONate** 800 MG TAB PO SCH (17:02)
--- NOTE | 2019-12-27 17:44 | CR ---
DATE OF VISIT: 12/26/2019 Preoperative medical clearance for procedure being done at [facility] on 12/26/2019. The patient is a resident of [facility]. Mr. Richard is being seen today because of surgical procedure that he is going to undergo tomorrow at [facility]. He is going to undergo an outpatient right brachiocephalic arteriovenous (AV) fistula and ligation of right radial cephalic prior AV fistula. This gentleman is a long-term dialysis patient. He has undergone various procedures on his AV fistulas in the past, and Dr. Ybarra has him set for one tomorrow. The patient's last hospitalization was for respiratory failure. He has morbid obesity and chronic respiratory failure for which he has a tracheostomy tube and nocturnal ventilatory support. He has chronic hypoxic and hypercarbic respiratory failure. Normally he has some low-grade chronic sputum production, but no hernan wheezing or chronic expiratory obstruction. After his last hospitalization at [facility], he was sent to a respiratory rehabilitation facility in [place], where he was weaned from daytime ventilator support and is back to where he was a few months ago at [facility] just getting nocturnal ventilatory support. Chronic medical problems include morbid obesity; however, he has lost 60 pounds within the last 2 months by eating less. He has chronic hypercapnic and hypoxic respiratory failure. He has obesity, hypoventilation syndrome managed with the tracheostomy and nocturnal ventilatory support, and end-stage renal disease felt to be due to hypertensive nephropathy. He has atrial fibrillation. He has a history of having had a perinephric hemorrhage while he was on warfarin for his atrial fibrillation. He has chronic anxiety and depression, secondary hyperparathyroidism, spinal stenosis which impairs his ambulation. 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 He has had a PermaCath placed. He has had AV fistulas placed and revised. CURRENT MEDICATIONS: He takes sertraline, sevelamer, calcium acetate, Senokot-S, gabapentin, pantoprazole, Bactroban, Zofran, Tylenol, magnesium, albuterol with Atrovent nebulizers. He also takes daily nebulizers on an as needed basis, Mirapex, and amiodarone. Alprazolam 1 mg as needed every 6 hours for anxiety, midodrine 10 mg three times per day on his dialysis days and actually he gets this [id number]. He just gets this at different hours when he has dialysis. He is also getting Renvela 800 mg 6 tablets three times a day, and he gets oxycodone 5/325 one every 6 hours for pain and he gets two tablets before he goes to dialysis. He has ALLERGIES listed to CODEINE, MOXIFLOXACIN, and VALSARTAN. FAMILY HISTORY: His mother of lung cancer. SOCIAL HISTORY: He is , has one grown daughter, not currently a smoker or a drinker. He has resided at [facility] for several years. He is dialysis dependent. I am his community physician. Unable to check his records at this time to see whether he has gotten either pneumonia or influenza vaccines. He has not had any fevers, chills or sweats. He has had some deliberate weight loss. No hearing or vision problems. He has a chronic tracheostomy. He communicates by mouthing words. Has been deemed not a satisfactory candidate because of his respiratory issues to use a Passy Claudia valve to communicate better. He is not recently short breath, occasionally raises some phlegm. He has been treated for lower respiratory infections in the past. No nausea, vomiting, abdominal pain, not having any diarrhea or constipation. He makes little urine because of his renal failure. He has some chronic low back discomforts exacerbated frequently by sitting in one position while he is at dialysis. He may have had some paresthesias in his feet. He definitely has weakness in his feet. No history of stroke or transient ischemic attack (TIA). No bruising or bleeding issues. Labs done on 12/15/2019 showed a hemoglobin of 15, hematocrit 49.5%, WBCs 87,000, BUN 28, creatinine 6.93, sodium 138, potassium 3.9. ASSESSMENT: 49-year-old male with problems with his AV shunt that are going to be revised tomorrow by the vascular surgeon. He has chronic renal failure, atrial fibrillation and is on anticoagulants, chronic respiratory failure, anxiety and depression. He is not diabetic. His has chronic atrial fibrillation and is on anticoagulants. PLAN: Resident actually is as good or better than I have seen him in quite a long time; even though there are increased risks with having him have any surgery procedure. He weighs 60 pounds less than he did 3 months ago and his respiratory status is his best that it has been in a while. I would consider him optimized for the planned procedure. He will be taken off of his anticoagulants for at least three doses, and I believe a total of four doses prior to the surgery. These will be resumed after the surgery. He will followup with dialysis, and he will be seeing me and my team at [facility]. Please call me if you have any questions. I should note that we need to make sure that he gets proper ventilation and oxygenation. His respiratory regimen when he is at home or at dialysis is 5-6 liters per minute of oxygen and 4 liters per minute or 28% attached to an oxygen tank. Unless he is being put to sleep should not need to manage his respiratory status intraoperatively with a ventilator. If you should have any questions, please for feel free to call me at [phone]; also our pulmonology group is also quite familiar with his status. MARGO
--- NOTE | 2019-12-27 18:02 | HPE ---
DATE OF ADMISSION: 12/27/2019 ATTENDING PHYSICIAN: Hospitalist group. PRIMARY CARE PROVIDER: Dr. Clarence Kimball at [facility]. HISTORY: Hospitalist admission for Matthew Richard who is being admitted for ligation of right upper extremity fistula, creation of brachiocephalic arteriovenous (AV) fistula. He is hyperkalemic today. He is being admitted for dialysis tomorrow pending vascular surgery procedure later in the day. He has a history of morbid obesity, chronic hyperventilation syndrome status post tracheostomy, end-stage renal disease on dialysis, paroxysmal atrial fibrillation, on anticoagulant therapy with Eliquis, chronic anxiety and depression, hyperparathyroidism secondary end-stage renal disease, spinal stenosis, chronic low back pain, history of thrombosis of AV fistula. PAST SURGICAL HISTORY: Tracheostomy, PermaCath. SOCIAL HISTORY: Nonsmoker. [facility] resident. REVIEW OF SYSTEMS: No rectal bleeding or epistaxis. No urinary bleeding, fever, or chills. He has chronic back pain which is unchanged. MEDICATIONS: Per flow sheet. PHYSICAL EXAMINATION: VITAL SIGNS: As listed. Blood pressure 148/77, pulse 67, respiratory rate 18, 98% oxygen saturation. GENERAL APPEARANCE: He was seen while in the ambulatory surgery unit (ASU). He was alert and conversant with glottic speech, status post tracheostomy. HEENT: Otherwise unremarkable. NECK: Shows tracheostomy. LUNGS: Decreased breath sounds. HEART: Regular rate and rhythm. No murmur. ABDOMEN: Obese. No liver or spleen palpable. Morbidly obese limits examination. EXTREMITIES: 1+ peripheral edema. LABORATORY DATA: Potassium 5.3, calcium 10.3. ASSESSMENT AND PLAN: The patient will be admitted to the hospitalist service. Dr. Ybarra and I have been communicating. She plans brachiocephalic arteriovenous (AV) fistula creation on the right, ligation of Mor fistula on the right tomorrow. The patient will be dialyzed tomorrow for hyperkalemia. I have continued most of his other medications. I am holding the Eliquis in anticipation of the surgical procedure.
[2019-12-27] MEDS: IPRATROPIUM 0.5MG/ALBUTEROL 2.5MG INH SOL UD 3ML (DUONEB)(J7620) NEB SCH (19:26)
[2019-12-27 20:00] VITALS: BP 92/55
[2019-12-27] MEDS: AMIODARONE 200 MG TAB (PACERONE) PO SCH (20:48)
[2019-12-27] MEDS: SERTRALINE 100 MG TAB PO SCH (20:48)
[2019-12-27] MEDS: PRAMIPEXOLE (MIRAPEX) 0.125 MG TAB PO SCH (20:48)
[2019-12-27] MEDS: FAMOTIDINE 20 MG TAB PO SCH (20:49)
[2019-12-27] MEDS ORDERED: MIDODRINE 5 MG TAB PO ONE (22:00)
[2019-12-27] MEDS: ALPRAZolam 0.5 MG TAB PO PRN (22:26)
[2019-12-28] VITALS: BP 121/62
[2019-12-28] MEDS: IPRATROPIUM 0.5MG/ALBUTEROL 2.5MG INH SOL UD 3ML (DUONEB)(J7620) NEB SCH ×4 (03:28→20:46)
[2019-12-28 04:00] VITALS: BP 106/56
[2019-12-28 05:51] LABS: HEMOGLOBIN 14.5 g/dl (13.5-17.5); MEAN CORPUSCULAR HEMOGLOBIN 31.4 pg (27.0-33.0); MEAN CORPUSCULAR HGB CONC 30.9 g/dl (32.0-36.5); MEAN CORPUSCULAR VOLUME 101.7 fl (80.0-96.0); PLATELET COUNT, AUTOMATED 115 10^3/uL (150-450); RED BLOOD COUNT 4.62 10^6/uL (4.30-6.10); WHITE BLOOD COUNT 6.6 10^3/uL (4.0-10.0)
[2019-12-28 06:07] LABS: CALCIUM LEVEL 9.8 MG/DL (8.5-10.1); CREATININE FOR GFR 7.6 MG/DL (0.70-1.30); GLOMERULAR FILTRATION RATE 8.2 (>60); POTASSIUM SERUM 5.4 MEQ/L (3.5-5.1)
[2019-12-28] MEDS ORDERED: HumuLIN R (REGULAR) INSULIN (NovoLIN R) **100U/ML** PER UNIT IV STA (06:29)
[2019-12-28] MEDS ORDERED: DEXTROSE 50% 50 ML SYRINGE IV STA (06:29)
[2019-12-28] MEDS ORDERED: CALCIUM GLUCONATE 1,000 MG in D5W MINI-BAG PLUS 100 ML IV ONE (06:30)
[2019-12-28 08:00] VITALS: BP 114/60
[2019-12-28] MEDS: MIDODRINE 5 MG TAB PO SCH ×3 (08:00→18:57)
[2019-12-28] MEDS: (RENVELA) SEVELAMER **CARBONate** 800 MG TAB PO SCH ×3 (08:00→18:57)
--- NOTE | 2019-12-28 09:37 | IPNPDOC ---
Text Note Date of Service The patient was seen on 12/28/19. NOTE Vascular surgery. Dr. Ybarra. HPI: 49 year old M with a past medical history significant for ESRD currently dialyzing with PermCath related to failure of right Mor AV fistula. The patient was scheduled to proceed 12/27/19 with ligation of his Mor fistula right upper extremity and creation of brachiocephalic AV fistula as per Dr. Ybarra. The patient had last been dialyzed 12/26/19 however when the patient arrived for his procedure 12/26 potassium was noted to be 5.0 with sodium 134 therefore the patient's procedure was postponed and his admission was arranged f or dialysis this morning prior to his procedure. Sandra is on hold. PE: GEN: 49yoM, No acute distress. Alert and oriented x 3. The patient is currently on dialysis. SKIN: [place], dry, warm. No rashes. A&P: 1. ESRD/hemodialysis as per nephrology. Dialysis management as per nephrology. He is being dialyzed this morning in preparation for procedure this afternoon. Currently the patient is using PermCath for dialysis. Tentative plan is for brachiocephalic AV fistula creation on the right and ligation of Mor fistula on the right later today as per Dr. Ybarra. Informed consent has been previously obtained as per Dr. Ybarra and placed on the chart. Eliquis is on hold. The patient has been noted to be very high risk for any surgical procedures due to morbid obesity and cardiopulmonary comorbidities. VS,Fishbone, I+O VS, Fishbone, I+O Laboratory Tests 12/27/19 11:03 12/28/19 05:17 12/28/19 08:30 Vital Signs Date Time Temp Pulse Resp B/P (MAP) Pulse Ox O2 Delivery O2 Flow Rate FiO2 12/28/19 08:00 97.0 56 20 114/60 (78) 98 Trach Collar 5.0 I&O- Last 24 Hours up to 6 AM 12/28/19 06:00 Intake Total 240 ml Output Total 0 ml Balance 240 ml Sarahi Durant Dec 28, 2019 09:37
[2019-12-28] MEDS ORDERED: HEPARIN 1,000 UNITS/ML 10ML VIAL (FOR RADIOLOGY& DIALYSIS ONLY)(J1644-10) IV ONE (12:00)
[2019-12-28] MEDS ORDERED: HEPARIN 1,000 UNITS/ML 10ML VIAL (FOR RADIOLOGY& DIALYSIS ONLY)(J1644-10) XX ONE (12:00)
[2019-12-28 12:36] VITALS: BP 90/68
[2019-12-28] MEDS: SERTRALINE 100 MG TAB PO SCH (12:50)
[2019-12-28] MEDS: PRAMIPEXOLE (MIRAPEX) 0.125 MG TAB PO SCH (12:50)
[2019-12-28] MEDS: SENOKOT S TAB PO SCH ×2 (12:50→20:53)
[2019-12-28] MEDS: DOCUSATE SODIUM 100 MG CAP PO SCH (12:51)
[2019-12-28] MEDS: oxyCODONE 5MG TAB PO PRN ×2 (12:51→18:58)
[2019-12-28] MEDS: AMIODARONE 200 MG TAB (PACERONE) PO SCH (12:51)
[2019-12-28] MEDS: FAMOTIDINE 20 MG TAB PO SCH (12:51)
--- NOTE | 2019-12-28 13:08 | CR ---
DATE OF CONSULTATION: 12/28/2019 REQUESTING PHYSICIAN: Dr. Jordyn Ybarra CONSULTING PHYSICIAN: Dr. Calderon REASON FOR CONSULTATION: Management of end-stage renal disease, optimization of fluid status and hyperkalemia before surgical procedure. CHIEF COMPLAINT: Aneurysmal right brachial cephalic arteriovenous (AV) fistula. HISTORY OF PRESENT ILLNESS: Matthew Richard is a 49-year-old male with past medical history of end-stage renal disease on hemodialysis, morbidly obese, chronically bedridden, obesity hypoventilation syndrome, status post tracheostomy, currently on trache collar, multiple other comorbidities as mentioned below. He was seen by vascular surgery as outpatient because of aneurysmal right forearm AV fistula. That fistula needs to be ligated and he needs a new right upper arm AV fistula. However, outpatient surgery was not performed because the patient is morbidly obese. He needs volume optimization with dialysis and correction of his hyperkalemia before he goes for surgery. I arranged his hemodialysis to be done tomorrow morning early a.m. before he goes to the operating room (OR). I saw and evaluated the patient during hemodialysis procedure today morning and he was tolerating the procedure well. PAST MEDICAL HISTORY: Past medical history of end-stage renal disease on hemodialysis, morbid obesity, chronic obesity hypoventilation syndrome, status post tracheostomy, paroxysmal atrial fibrillation (AFib), anticoagulation with Eliquis, anxiety and depression, hyperparathyroidism secondary to end-stage renal disease, spinal stenosis, chronic back pain. PAST SURGICAL HISTORY: Status post tracheostomy, status post left internal jugular (IJ) tunneled hemodialysis catheter placement, status post right forearm AV fistula placement. ALLERGIES: The patient is allergic to CODEINE, MOXIFLOXACIN, and LOSARTAN. FAMILY HISTORY: No significant family history of end-stage renal disease requiring hemodialysis. SOCIAL HISTORY: The patient is a resident of [facility] at this time. He is chronically bedridden. He denies any smoking or illicit drug abuse. REVIEW OF SYSTEMS: Constitutional: He denies any fevers, chills. Eyes: He denies any blurry vision, double vision. ENT: Denies any dysphagia, odynophagia. He does have tracheostomy status. Cardiovascular: He denies any chest pain or palpitation. Respiratory: Denies any shortness of breath or cough. He has chronic obesity hypoventilation syndrome. Gastrointestinal (GI): Denies any nausea, vomiting. Genitourinary: He does report decreased urine output. Musculoskeletal: He reports chronically bedridden status. Skin: He denies any rashes. Psychiatric: He does report history of depression or anxiety. Central nervous system (TENSION WORKER): He denies any stroke or seizures. He does have chronic muscle weakness and he is unable to walk. PHYSICAL EXAMINATION: General: The patient is awake, alert, oriented times three, laying in bed getting hemodialysis done. Vital Signs: Temperature is 97 degrees Fahrenheit, blood pressure 114/60, pulse is 56, respiratory rate of 20, saturating 98% on trache collar at 5 liters. Head/Neck Exam: Extraocular muscles intact. Pupils equally round and reactive to light. He has a tracheostomy and wearing a trache collar. He has a left IJ tunneled hemodialysis catheter which is being used for dialysis. Cardiovascular: S1, S2, regular rate. Trace edema of the bilateral lower extremities. Respiratory: He is currently waiting a trache collar. Otherwise, no active rales or rhonchi. Bilateral equal air entry. Abdomen is obese. I could not appreciate any organomegaly. Musculoskeletal: The patient has decreased range of movement of bilateral lower extremities and he is chronically bedridden. TENSION WORKER: No focal deficit in bilateral upper extremities. He follows commands. Psychiatric: Normal mood and affect. LABORATORY REVIEW: CBC showed WBC 66, hemoglobin 14.5, platelets of 115. BMP showed sodium 135, potassium 5.4, chloride 103, bicarbonate 23, BUN 35, creatinine is 7.6. CURRENT INPATIENT MEDICATIONS: - The patient is getting normal saline at 30 mL/h. - He is on Tylenol as needed. - He is taking albuterol p.r.n. - alprazolam 1 gram by mouth every 6 hours as needed anxiety - amiodarone 100 mg by mouth daily - Dulcolax as needed for constipation - Benicar 2 tablets twice a day - Colace 200 mg by mouth daily - Pepcid 20 mg by mouth daily - heparin subcu - midodrine 10 mg by mouth three times a day - oxycodone 10 mg every 6 hours as needed for pain - Percocet 1 tablet every 6 hours as needed for pain - Mirapex 0.125 mg by mouth daily - Zoloft 100 mg by mouth daily - Renvela 4.8 grams by mouth with meals ASSESSMENT: 49-year-old male with end-stage renal disease, dialysis dependent, morbidly obese, chronic obesity hypoventilation syndrome, currently has a trache collar, being admitted for right forearm AV fistula surgery. Nephrology service following for optimization of volume status and hyperkalemia before the OR. PLAN: 1. End-stage renal disease. The patient is being dialyzed at this time. Ultrafiltration goal will be around 3 liters. 2. Hyperkalemia. He is being dialyzed today 2 K bath. Potassium is expected to improve after hemodialysis. 3. Aneurysmal right forearm AV fistula. Fistula is not being used at this time. Left IJ catheter is being used. The patient is going to have the fistula ligated in the OR today and he would get new right upper arm AV fistula. 4. Atrial fibrillation. Heart rate is controlled. Continue current dose of amiodarone. Anticoagulation is on hold because of surgery. 5. Chronic hypotension. Continue current dose of midodrine 10 mg by mouth three times a day. 6. Obesity hypoventilation syndrome, status post tracheostomy. The patient is currently on trache collar. Volume status is being optimized with dialysis. Thank you for involving me in the care of this patient. I shall be happy to follow the patient along with you tomorrow morning.
[2019-12-28] MEDS ORDERED: MIDAZOLAM INJ 2 MG/2 ML VIAL (J2250) As Ordered ONE ×2 (13:50→14:22)
[2019-12-28] MEDS ORDERED: fentaNYL 100 MCG/2 ML INJECTION (J3010) As Ordered ONE ×3 (13:50→16:33)
--- NOTE | 2019-12-28 13:51 | IPN ---
DATE: 12/28/2019 Matthew is seen while receiving dialysis and he is having his procedure done today. He has no new complaints. He denies chest pain or shortness of breath. PHYSICAL EXAM: Vital signs stable. 90/68. Lungs clear. Regular rhythm. Abdomen obese. Trace peripheral edema. LABS: Reviewed. Nothing remarkable. PLAN: Per Dr. Ybarra. Patient is completing dialysis and then she will be taken to the OR afterwards.
[2019-12-28] MEDS: fentaNYL 100 MCG/2 ML INJECTION (J3010) IV SCH ×2 (13:58→14:15)
[2019-12-28] MEDS: MIDAZOLAM INJ 2 MG/2 ML VIAL (J2250) IV SCH ×2 (13:58→14:05)
[2019-12-28] MEDS ORDERED: LIDOCAINE 1% SDV INJ 30 ML VIAL As Ordered ONE (14:13)
[2019-12-28] MEDS ORDERED: HEPARIN SOD (PORCINE) 5000 UNITS/ML VIAL (J1644 PER 1000UNITS) As Ordered ONE (14:14)
[2019-12-28] MEDS ORDERED: propofoL 200 MG/20 ML VIAL As Ordered ONE ×3 (14:21→17:01)
[2019-12-28] MEDS ORDERED: ceFAZolin 1GM INJ (J0690 PER 500MG) As Ordered ONE (15:05)
[2019-12-28] MEDS ORDERED: ceFAZolin 2 GM/D5W 50 ML IV BAG (J0690 PER 500MG) As Ordered ONE (15:05)
[2019-12-28] MEDS ORDERED: PHENYLEPHRINE INJ 10MG/ML VIAL (J2370) As Ordered ONE (15:31)
[2019-12-28] MEDS ORDERED: PHENYLephrine HCL 500 MCG/5 ML (100MCG/ML) SYRINGE (J2370) As Ordered ONE (15:46)
[2019-12-28] MEDS ORDERED: ONDANSETRON 4MG/2ML VIAL (J2405) As Ordered ONE (16:59)
--- NOTE | 2019-12-28 17:41 | ROOPDOC ---
[facility] Report Of Operation Report of Operation DATE OF PROCEDURE: 12/28/19 PREPROCEDURE DIAGNOSES: End-stage renal disease with failed aneurysmal right Mor fistula POSTPROCEDURE DIAGNOSES: Same PROCEDURE: 1. Ligation right Mor fistula 2. Right brachiocephalic AV fistula creation SURGEON: Priyanka Ybarra MD ANESTHESIA: Right axillary nerve block, local anesthesia, monitored anesthesia care INDICATION FOR PROCEDURE: This is a very pleasant 49-year-old gentle woman with end-stage renal disease and a failed aneurysmal right Mor fistula. He is currently dialyzing with a PermCath, and has been for quite some time and we would like to discontinue the PermCath as soon as possible to prevent central veins stenosis. Risks benefits and alternatives to right Mor fistula ligation and creation of a right brachiocephalic AV fistula were explained to the patient at length and he is agreeable to proceed. Informed consent was obtained. REPORT OF OPERATION: The patient was brought to the OR in stable condition after right axillary nerve block was placed by our anesthesia colleagues in preop holding. Monitored anesthesia care and antibiotics were administered without complication. His right upper extremity was prepped and draped in a sterile fashion. A timeout was performed. Local anesthesia was a gas tender to skin and subcutaneous tissue over the right wrist at the area of previous incision from fistula creation. A vertical incision was made and carried down to the subcutaneous tissues Bovie cautery. The aneurysmal portion of the aneurysm was carefully avoided and we continued her dissection down to the radial artery. The origin of the fistula was identified and carefully skeletonized. It was ligated with 2 silk sutures. We then irrigated with copious amounts of saline. The patient had excellent radial pulse following ligation. We approximate the deep tissues with interrupted Vicryl sutures. We closed the dermal layer with running Vicryl suture. We closed the skin with running subcuticular Monocryl suture. Mastisol and Steri-Strips replace the length of the incision. We then wrapped the hand and the forearm with Kerlix and Coban for compression of the aneurysmal portion of the ligated fistula. Next, local anesthesia was administered to the skin and subcutaneous tissue a centimeter distal to the antecubital crease in the right upper extremity. A transverse incision was made over the brachial artery pulse and carried down to subcutaneous tissues Bovie cautery. Bridging veins were suture ligated and divided. We did identify the basilic vein with interval incision, but we could not identify the cephalic vein. It is very large, and should be easy to identify, so we did look at the arm with ultrasound to see where the vein was located and it was just outside of the incision, which was then extended over the vein and the vein was carefully skeletonized proximally and distally. Ranches were suture ligated and divided. We then continued her dissection down to the brachial artery which was skeletonized proximally and distally. Vesseloops were placed. We then tied off the distal end of the vein and divided it and flushed with heparinized saline in a bulldog clamp was placed. We then secured the Vesseloops and a 5 mm arteriotomy was made and the vein was anastomosis to the artery and an end-to-side fashion after spatulating the end of the vein. Before the final sutures are placed, we flushed inflow the outflow of the artery and vein, and then irrigated with heparinized saline. A final sutures are placed and flow was restored through the vein and the inflow artery first, and then outflow to the hand. There is an excellent pul se following fistula creation. There was an excellent thrill over the cephalic vein. We then irrigated with copious amounts of saline. The deep tissues were approximated with interrupted Vicryl sutures. Dermal layer was approximated with a running Vicryl suture. The skin was closed with running subcuticular Monocryl suture. Mastisol and Steri-Strips replace the length of the incision. We then placed a 4 x 4 and Tegaderm as a final dressing. The patient was then allowed to awaken from anesthesia was taken to recovery in stable condition. A sling was placed in the right upper extremity to protect it until the nerve block resolves. ESTIMATED BLOOD LOSS: Less than 50 mL. COMPLICATIONS: None. PLAN: We will continue to use the PermCath for dialysis until the fistula has sufficient maturation time. It is a large vein at baseline due to previous forearm Mor fistula, but he still needs time to mature and arterialized. It is okay to resume the patient's diet medication and activity per the primary team. It is okay to remove the sling once the nerve block wears off. It's okay to remove the Coban and and kerlix tomorrow but we like to leave the compression for tonight. Both incision should continue with Steri-Strips for at least 7 days to help with healing. It's okay to discharge the patient from a vascular standpoint when he is stable from a hospitalist standpoint. We like to see him back in a week to 2 weeks to check his incisions and his fistula. We appreciate the opportunity to participate in the care of this patient. PRIYANKA YBARRA MD Dec 28, 2019 17:41
[2019-12-28] MEDS ORDERED: PERCOCET 5MG/325MG TAB PO PRN ×2 (18:00→18:15)
[2019-12-28] MEDS ORDERED: NS 1,000 ML IV SCH ×2 (18:00→18:15)
[2019-12-28] MEDS ORDERED: fentaNYL 100 MCG/2 ML INJECTION (J3010) IV PRN ×2 (18:00→18:15)
[2019-12-28] MEDS ORDERED: ONDANSETRON 4MG/2ML VIAL (J2405) IV PRN ×2 (18:00→18:15)
[2019-12-28] MEDS: ePHEDrine SULFATE 25 MG/5 ML(5MG/ML) SYRINGE IV PRN ×5 (18:00→18:12)
[2019-12-28] MEDS ORDERED: PHENYLephrine HCL 500 MCG/5 ML (100MCG/ML) SYRINGE (J2370) IV SCH (18:30)
[2019-12-28 18:57] VITALS: BP 99/55
[2019-12-28] MEDS ORDERED: EPINEPHrine INJ 1 MG/ML 1ML VIAL ONE (19:08)
[2019-12-28 20:00] VITALS: BP 99/59
[2019-12-28] MEDS: ALPRAZolam 0.5 MG TAB PO PRN (22:27)
[2019-12-29] VITALS: BP 95/53
[2019-12-29] MEDS ORDERED: PHENYLephrine HCL 500 MCG/5 ML (100MCG/ML) SYRINGE (J2370) ONE (00:29)
[2019-12-29] MEDS ORDERED: ePHEDrine SULFATE 25 MG/5 ML(5MG/ML) SYRINGE ONE (00:29)
[2019-12-29] MEDS: IPRATROPIUM 0.5MG/ALBUTEROL 2.5MG INH SOL UD 3ML (DUONEB)(J7620) NEB SCH ×2 (02:57→07:51)
[2019-12-29 04:00] VITALS: BP 103/53
[2019-12-29 05:39] LABS: HEMATOCRIT 47.4 % (42.0-52.0); HEMOGLOBIN 14.5 g/dl (13.5-17.5); MEAN CORPUSCULAR HEMOGLOBIN 31.5 pg (27.0-33.0); MEAN CORPUSCULAR HGB CONC 30.6 g/dl (32.0-36.5); PLATELET COUNT, AUTOMATED 106 10^3/uL (150-450); WHITE BLOOD COUNT 7.2 10^3/uL (4.0-10.0)
[2019-12-29 06:00] LABS: CALCIUM LEVEL 9.5 MG/DL (8.5-10.1); CREATININE FOR GFR 6.13 MG/DL (0.70-1.30); GLOMERULAR FILTRATION RATE 10.5 (>60); POTASSIUM SERUM 4.3 MEQ/L (3.5-5.1)
[2019-12-29] MEDS: oxyCODONE 5MG TAB PO PRN (06:20)
[2019-12-29] MEDS: (RENVELA) SEVELAMER **CARBONate** 800 MG TAB PO SCH ×2 (08:00→12:30)
[2019-12-29] MEDS: FAMOTIDINE 20 MG TAB PO SCH (09:00)
[2019-12-29] MEDS: SERTRALINE 100 MG TAB PO SCH (09:00)
[2019-12-29] MEDS: AMIODARONE 200 MG TAB (PACERONE) PO SCH (09:01)
[2019-12-29] MEDS: DOCUSATE SODIUM 100 MG CAP PO SCH (09:01)
[2019-12-29] MEDS: MIDODRINE 5 MG TAB PO SCH ×2 (09:01→12:34)
[2019-12-29] MEDS: SENOKOT S TAB PO SCH (09:01)
[2019-12-29] MEDS: PRAMIPEXOLE (MIRAPEX) 0.125 MG TAB PO SCH (09:02)
--- NOTE | 2019-12-29 09:31 | DSES ---
DATE OF ADMISSION: 12/27/2019 DATE OF DISCHARGE: PRINCIPAL DIAGNOSIS: End stage renal disease with failed aneurysmal right Mor fistula. SECONDARY DIAGNOSES: 1. Ligation right Mor fistula with creation of right brachiocephalic AV fistula by Dr. Jordyn Ybarra on 12/28/2019. 2. Chronic hypoventilatory syndrome status post tracheostomy. 3. Paroxysmal atrial fibrillation, on anticoagulant therapy. 4. Chronic anxiety and depression. 5. Hyperparathyroidism secondary to end stage renal disease. 6. Lumbosacral spinal stenosis. 7. Morbid obesity complicating care. HISTORY: The patient was admitted to the hospitalist service for creation of a brachiocephalic AV fistula. Details of the procedure are in the operative note. He was dialyzed the morning before the procedure for treatment of hyperkalemia and then he underwent the procedure and tolerated it well and is being transferred back to [facility] today. DISPOSITION: He is being transferred back to [facility] on the same medicines he was taking prior to admission. He should see Dr. Ybarra in 1-2 weeks. Recommend continue his Steri-Strips at least 7 days to help with healing. Recommend using PermaCath for dialysis so the fistula has time to mature. It is noted to be large vein at baseline due to previous forearm Mor fistula and needs time to mature and arterialize.
--- NOTE | 2019-12-29 09:56 | IPNPDOC ---
Text Note Date of Service The patient was seen on 12/29/19. NOTE Vascular surgery. Dr. Ybarra. Dressing is intact over right arm fistula creation area. No drainage, no erythema. No tenderness. Plan to continue to use PermCath for dialysis until the fistula has sufficient maturation time. It is a large vein at baseline due to previous forearm Mor fistula, but he still needs time to mature and arterialized. Since the Coban and and kerlix on the lower right arm is not bothering him, plan is to leave this in place for today. Both incision should continue with Steri-Strips for at least 7 days to help with healing. It's okay to discharge the patient from a vascular standpoint when he is stable from a hospitalist standpoint. We like to see him back in a week to 2 weeks to check his incisions and his fistula. VS,Fishbone, I+O VS, Fishbone, I+O Laboratory Tests 12/29/19 05:19 Vital Signs Date Time Temp Pulse Resp B/P (MAP) Pulse Ox O2 Delivery O2 Flow Rate FiO2 12/29/19 06:50 18 12/29/19 04:00 5.0 12/29/19 04:00 96.4 67 103/53 (70) 99 Trach Collar I&O- Last 24 Hours up to 6 AM 12/29/19 06:00 Intake Total 1160 ml Output Total 2550 ml Balance -1390 ml Sarahi Durant Dec 29, 2019 09:56
--- NOTE | 2019-12-29 14:47 | ECGEPIP ---
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
--- NOTE | 2019-12-30 07:55 | IPN ---
DATE: 12/29/2019 SUBJECTIVE: The patient was seen and examined at the bedside today morning. He is awake and alert. He got the right forearm AV fistula ligated and he got new right upper arm AV fistula placed yesterday. He denies any active complaints at this time. OBJECTIVE: Vital signs: Temperature is 96.4 degrees Fahrenheit, blood pressure 103/53, pulse is 67, respiratory rate of 18, saturating 99% on trach collar with 5 liters. Intake and output: There is no urine output recorded. Ultrafiltration with hemodialysis was 2.5 liters. Weight in the bed scale is 160.2 kg. PHYSICAL EXAMINATION: General: The patient is awake, alert, oriented times three, laying in bed, morbidly obese. Head and neck exam: Extraocular muscles intact. Pupils equally round and reactive to light. Neck is supple. He has a tracheostomy and a trach collar. Cardiovascular: S1, S2, regular rate, 1+ edema of the bilateral lower extremities. Respiratory: Chest is clear to auscultation bilaterally. Bilateral equal air entry. Abdomen: Obese, positive bowel sounds. Nontender. Musculoskeletal: The patient has a dressing on the right forearm and he has a new fistula in the right upper arm which has a bruit on auscultation. 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 He follows commands. He moves the upper extremities. The patient is otherwise chronically bedridden. LABORATORY REVIEW: CBC showed WBC 7.2, hemoglobin 14.5, platelets of 106. BMP showed sodium 138, potassium 4.3, chloride 102, bicarbonate 29, BUN 24, creatinine 6.1. CURRENT INPATIENT MEDICATIONS: The patient's medications were all reviewed by me. There is no significant change in the medications today as compared with yesterday. ASSESSMENT/PLAN: 1. End-stage renal disease. The patient was dialyzed yesterday. Next hemodialysis can be done as outpatient as per his regular schedule. 2. 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 The patient is status post right forearm AV fistula ligation and new creation of right upper arm AV fistula. Rest of the management is as per vascular surgery. 3. Hyperkalemia. It is resolved after dialysis yesterday. 4. Chronic hypotension. Continue current dose of midodrine 10 mg by mouth three times a day. DISPOSITION: The patient is optimized from nephrology standpoint to be discharged back to intermediate.
== END 2019-12-29 13:10 | DRG 252 ==
LOC: M SDC 10:25 → M PCU 12:30
PROVIDERS: ADMIT Family Medicine; ATTEND Family Medicine
PROC: 03170ZD Bypass Right Brachial Artery to Upper Arm Vein, Open Approach (ICD-10-PCS; 2019-12-28)
PROC: 03LB0ZZ Occlusion of Right Radial Artery, Open Approach (ICD-10-PCS; principal; 2019-12-28 13:40)
DX: T82.898A Other specified complication of vascular prosthetic devices, implants and grafts, initial encounter (principal); N18.6 End stage renal disease; N25.81 Secondary hyperparathyroidism of renal origin; E66.2 Morbid (severe) obesity with alveolar hypoventilation; J96.12 Chronic respiratory failure with hypercapnia; I48.0 Paroxysmal atrial fibrillation; F41.9 Anxiety disorder, unspecified; F32.9 Major depressive disorder, single episode, unspecified; Z79.01 Long term (current) use of anticoagulants; E87.5 Hyperkalemia; Z93.0 Tracheostomy status; G47.33 Obstructive sleep apnea (adult) (pediatric); Z79.899 Other long term (current) drug therapy; Z88.5 Allergy status to narcotic agent; Z88.8 Allergy status to other drugs, medicaments and biological substances; Z99.2 Dependence on renal dialysis; Y83.2 Surgical operation with anastomosis, bypass or graft as the cause of abnormal reaction of the patient, or of later complication, without mention of misadventure at the time of the procedure

== ENCOUNTER → 2020-02-12 | Outpatient (REF) ==
[~2020-02-12] MED LIST changes: -HEPARIN SOD (PORCINE) 5000 UNITS/ML VIAL (J1644 PER 1000UNITS) As Ordered ONE; -ISOVUE-300 61% 50ML VIAL (Q9967) As Ordered ONE; -LIDOCAINE 1% SDV INJ 30 ML VIAL As Ordered ONE; -LIDOCAINE 2% INJ 100 MG/5 ML SDV (FOR ANES.) As Ordered ONE; -MIDAZOLAM INJ 2 MG/2 ML VIAL (J2250) As Ordered ONE; -NS 1,000 ML IV ONE; -ONDANSETRON 4MG/2ML VIAL (J2405) As Ordered ONE; +OXYC-1 PO; -OXYC15TA76 PO; -PHENYLephrine HCL 500 MCG/5 ML (100MCG/ML) SYRINGE (J2370) As Ordered ONE; -ROCURONIUM BROMIDE 50 MG/5 ML VIAL As Ordered ONE; -SUGAMMADEX SODIUM 500 MG/5 ML VIAL (BRIDION) As Ordered ONE; -ceFAZolin SOD 1 GM in D5W MINI-BAG PLUS 50 ML IV ONE; -ceFAZolin SOD 2 GM in IV 1 EA IV ONE; -dexameTHASONE 4 MG/ML 1ML VIAL (J1100) As Ordered ONE; -ePHEDrine SULFATE 25 MG/5 ML(5MG/ML) SYRINGE As Ordered ONE; -fentaNYL 250 MCG/5 ML INJECTION (J3010) As Ordered ONE; -propofoL 200 MG/20 ML VIAL As Ordered ONE
[2020-02-12 14:58] LABS: HEMATOCRIT 43.2 % (42.0-52.0); HEMOGLOBIN 12.9 g/dl (13.5-17.5); MEAN CORPUSCULAR HEMOGLOBIN 30.2 pg (27.0-33.0); MEAN CORPUSCULAR HGB CONC 29.9 g/dl (32.0-36.5); MEAN CORPUSCULAR VOLUME 101.2 fl (80.0-96.0); PLATELET COUNT, AUTOMATED 115 10^3/uL (150-450); RED BLOOD COUNT 4.27 10^6/uL (4.30-6.10); WHITE BLOOD COUNT 7.2 10^3/uL (4.0-10.0)
--- NOTE | 2020-02-12 23:27 | REP ---
REASON FOR EXAM: Cough and congestion. COMPARISON EXAM: 10/02/2019 The technique utilized in obtaining the radiograph has magnified the cardiac silhouette and accentuated the interstitial markings. The tracheostomy tube is unchanged. There is cardiomegaly accentuated by technique. There is a double-lumen central venous catheter, the tip of which is in the superior vena cava. There are chronic lung field changes, status quo. No acute patchy parenchymal opacities or pleural effusions have developed. There is no change in the osseous structures. IMPRESSION: No evidence of acute cardiopulmonary disease. Findings as described above. Electronically Signed by Aayush Colbert DO 02/13/2020 08:30 A
== END ==
LOC: SKLAB3 14:14
PROVIDERS: ATTEND Family Medicine
DX: R05 Cough (principal); R09.89 Other specified symptoms and signs involving the circulatory and respiratory systems

== ENCOUNTER → 2020-03-05 | Outpatient (REF) | LOC: SKLAB3 09:37 | PROVIDERS: ATTEND Internal Medicine | DX: Z03.818 Encounter for observation for suspected exposure to other biological agents ruled out (principal) ==

== ENCOUNTER → 2020-05-06 | Outpatient (CLI) | payer MEDICARE, MEDICAID ==
[~2020-05-06] MED LIST changes: +ACET650S3 PR; +CEPALOZ8 MT; +FLEEENE12 PR; +LIDOCAINE W/EPINEPHRINE 1% 20ML VIAL As Ordered ONE; +MIRA1POW3 PO; +ONDA-83 PO; +OXYC10TA12 PO; +PHEN26CR PR; +REFR0.1D OU
[2020-05-06 09:20] VITALS: BP 171/85
--- NOTE | 2020-05-06 09:30 | ROOPDOC ---
[facility] Report Of Operation Report of Operation DATE OF PROCEDURE: 05/06/20 PREPROCEDURE DIAGNOSES: End-stage renal disease no longer requiring PermCath for dialysis POSTPROCEDURE DIAGNOSES: Same PROCEDURE: Removal left IJ PermCath SURGEON: Priyanka Ybarra MD ANESTHESIA: Local anesthesia 8 mL lidocaine with epinephrine. INDICATION FOR PROCEDURE: This is a very pleasant 50-year-old gentleman, morbidly obese, end-stage renal disease, successfully dialyzing with right brac hiocephalic AV fistula. Risks benefits and alternatives to removal of his left IJ PermCath were explained to the patient needs agreeable to proceed. Informed consent was obtained. Upon removal the dressing today prior to the procedure, we noted a 3-4 cm circumferential area of erythema around the exit site of the catheter on the left chest with mild induration. We were able to milk some fluid from the tract around the catheter, which appeared somewhat purulent but could be fibrinous. I discussed with the patient that upon removal of the catheter, we would send for culture. REPORT OF OPERATION: Patient's left neck and chest were prepped and draped in a sterile fashion. A timeout was performed. Local anesthesia was administered to the skin and subcutaneous tissue around the exit site on the left chest. Blunt dissection was used to loosen the catheter from the subcutaneous tissue and we continued until we have the cuff loose from the tissue. We then hold pressure at the jugular access site and removed the catheter. The entire catheter was inspected and found to be completely intact. No portion was left behind. We sent the catheter for culture. Pressure was held for 15 minutes over the left chest and jugular access site. Sterile dressings were applied. The patient was monitored for 30 minutes and then discharged in stable condition. He tolerated the procedure well. ESTIMATED BLOOD LOSS: Approximately 2 mL. COMPLICATIONS: None. PLAN: Okay to resume eliquis tomorrow. Continue use right upper extremity brachiocephalic AV fistula for dialysis. We will follow up the cultures of the patient's left IJ catheter, and antibiotics will be prescribed if needed. Keep the left chest site clean and dry. Okay to shower after 24 hours. Keep head elevated for the rest of the day. Try to avoid laying flat to diminish venous pressure. We appreciate the upper to participate in care of this patient. PRIYANKA YBARRA MD May 06, 2020 09:30
== END ==
LOC: M IRPRO 08:18
PROVIDERS: ATTEND Surgery Vascular Surgery
DX: Z45.2 Encounter for adjustment and management of vascular access device (principal); N18.6 End stage renal disease; I12.0 Hypertensive chronic kidney disease with stage 5 chronic kidney disease or end stage renal disease; I48.91 Unspecified atrial fibrillation; E66.01 Morbid (severe) obesity due to excess calories; F32.9 Major depressive disorder, single episode, unspecified; F41.9 Anxiety disorder, unspecified; G47.30 Sleep apnea, unspecified; J44.9 Chronic obstructive pulmonary disease, unspecified; K21.9 Gastro-esophageal reflux disease without esophagitis; Z79.01 Long term (current) use of anticoagulants; Z79.899 Other long term (current) drug therapy; Z88.1 Allergy status to other antibiotic agents; Z88.5 Allergy status to narcotic agent; Z88.8 Allergy status to other drugs, medicaments and biological substances; Z99.2 Dependence on renal dialysis

== ENCOUNTER → 2020-05-07 | Outpatient (REF) | payer MEDICARE, MEDICAID ==
[~2020-05-07] MED LIST changes: -LIDOCAINE W/EPINEPHRINE 1% 20ML VIAL As Ordered ONE
--- NOTE | 2020-05-07 23:45 | REPVR ---
PROCEDURE INFORMATION: Exam: XR Chest, 1 View Exam date and time: 05/07/2020 11:09 PM Age: 50 years old Clinical indication: Shortness of breath; Patient HX: Nurse states right lower crackles by stethoscope; Additional info: Resp panel/covid test TECHNIQUE: Imaging protocol: XR of the chest Views: 1 view. COMPARISON: CR Chest, 1 view 02/12/2020 3:38 PM FINDINGS: Limitations: Examination is limited somewhat by the portable technique. Lungs: Mild platelike opacities in the right base. No left lung infiltrate. Pleural space: Unremarkable. No pleural effusion. No pneumothorax. Heart/Mediastinum: Moderate cardiomegaly. Bones/joints: Unremarkable. IMPRESSION: 1. Mild platelike opacities in the right base. Suspect atelectasis. 2. No left lung infiltrate. 3. Moderate cardiomegaly. No change from prior. Electronically signed by: Lucy Christianson On 05/07/2020 23:45:44 PM
[2020-05-08 01:03] LABS: HEMATOCRIT 35.4 % (42.0-52.0); HEMOGLOBIN 10.6 g/dl (13.5-17.5); MEAN CORPUSCULAR HEMOGLOBIN 30.8 pg (27.0-33.0); MEAN CORPUSCULAR HGB CONC 29.9 g/dl (32.0-36.5); MEAN CORPUSCULAR VOLUME 102.9 fl (80.0-96.0); PLATELET COUNT, AUTOMATED 132 10^3/uL (150-450); RED BLOOD COUNT 3.44 10^6/uL (4.30-6.10); WHITE BLOOD COUNT 8.6 10^3/uL (4.0-10.0)
[2020-05-08 01:20] LABS: CALCIUM LEVEL 8.5 MG/DL (8.5-10.1); CREATININE FOR GFR 5.31 MG/DL (0.70-1.30); GLOMERULAR FILTRATION RATE 12.4 (>60); POTASSIUM SERUM 4.2 MEQ/L (3.5-5.1)
== END ==
LOC: SKLAB3 21:15
DX: Z20.828 Contact with and (suspected) exposure to other viral communicable diseases (principal); Z11.59 Encounter for screening for other viral diseases

== ENCOUNTER → 2020-05-08 | Outpatient (REF) | payer MEDICARE, MEDICAID | LOC: SKLAB3 12:19 | DX: R06.02 Shortness of breath (principal) ==

== ENCOUNTER 2020-06-02 18:15 | Inpatient (IN) | payer MEDICARE, MEDICAID ==
[~2020-06-02] VITALS: Ht 190.5 cm; Wt 161.4 kg
[~2020-06-02 18:15] MED LIST changes: +ESCI10TA16 PO; -ESCI10TA2 PO; +GABA-282 PO; -GABA-843 PO; +PRAMIPEXOLE (MIRAPEX) 0.125 MG TAB ONE
[2020-06-02] MEDS ORDERED: CHLORHEXIDINE GLUCONATE 0.12 % 15ML UDC (PERIDEX ORAL RINSE) ONE (20:14)
[2020-06-02] MEDS ORDERED: fentaNYL 100 MCG/2 ML INJECTION (J3010) ONE (20:16)
[2020-06-02] MEDS ORDERED: HEPARIN SOD (PORCINE) 5000UNITS/ML 1ML VIAL/SYRINGE ONE (21:13)
[2020-06-02] MEDS ORDERED: LORazepam 2 MG/ML VIAL ONE (22:08)
[2020-06-03] MEDS ORDERED: fentaNYL 100 MCG/2 ML INJECTION (J3010) ONE ×4 (03:18→20:30)
[2020-06-03] MEDS ORDERED: LORazepam 2 MG/ML VIAL ONE ×3 (04:52→20:31)
[2020-06-03] MEDS ORDERED: HEPARIN SOD (PORCINE) 5000UNITS/ML 1ML VIAL/SYRINGE ONE ×3 (04:54→20:03)
[2020-06-03] MEDS ORDERED: SERTRALINE 100 MG TAB ONE (08:27)
[2020-06-03] MEDS ORDERED: AMIODARONE 200 MG TAB (PACERONE) ONE (08:27)
[2020-06-03] MEDS ORDERED: (RENVELA) SEVELAMER **CARBONate** 800 MG TAB ONE ×3 (08:27→17:10)
[2020-06-03] MEDS ORDERED: PANTOPRAZOLE 40MG TAB (PROTONIX) ONE (08:27)
[2020-06-03] MEDS ORDERED: levETIRAcetam 250MG TABLET (KEPPRA) ONE (08:27)
[2020-06-03] MEDS ORDERED: CHLORHEXIDINE GLUCONATE 0.12 % 15ML UDC (PERIDEX ORAL RINSE) ONE ×2 (08:27→20:03)
[2020-06-03] MEDS ORDERED: PERCOCET 5MG/325MG TAB ONE (17:56)
[2020-06-04] MEDS ORDERED: fentaNYL 100 MCG/2 ML INJECTION (J3010) ONE (04:55)
[2020-06-04] MEDS ORDERED: HEPARIN SOD (PORCINE) 5000UNITS/ML 1ML VIAL/SYRINGE ONE ×2 (06:31→14:36)
[2020-06-04] MEDS ORDERED: MIDODRINE 5 MG TAB ONE (06:56)
[2020-06-04] MEDS ORDERED: CHLORHEXIDINE GLUCONATE 0.12 % 15ML UDC (PERIDEX ORAL RINSE) ONE ×2 (06:56→08:39)
[2020-06-04] MEDS ORDERED: (RENVELA) SEVELAMER **CARBONate** 800 MG TAB ONE (06:56)
[2020-06-04] MEDS ORDERED: SERTRALINE 100 MG TAB ONE (06:56)
[2020-06-04] MEDS ORDERED: AMIODARONE 200 MG TAB (PACERONE) ONE (06:56)
[2020-06-04] MEDS ORDERED: levETIRAcetam 250MG TABLET (KEPPRA) ONE (06:56)
[2020-06-04] MEDS ORDERED: PANTOPRAZOLE 40MG VIAL (C9113 PER 1) ONE (07:08)
[2020-06-04] MEDS ORDERED: ALPRAZolam 0.25 MG TAB ONE (11:56)
[2020-06-04] MEDS ORDERED: PRAMIPEXOLE (MIRAPEX) 0.125 MG TAB ONE (13:00)
[2020-06-04] MEDS ORDERED: oxyCODONE 5MG TAB ONE ×2 (14:59→15:00)
[2020-06-04] MEDS ORDERED: (RENVELA) SEVELAMER **CARBONate** 800 MG TAB As Ordered ONE (17:28)
[2020-06-04] MEDS ORDERED: LIDOCAINE 5% (LIDODERM) PATCH As Ordered ONE (21:21)
[2020-06-04] MEDS ORDERED: HEPARIN SOD (PORCINE) 5000UNITS/ML 1ML VIAL/SYRINGE As Ordered ONE (21:21)
[2020-06-04] MEDS ORDERED: oxyCODONE 10 MG CR TAB As Ordered ONE (22:56)
[2020-06-04] MEDS ORDERED: ALPRAZolam 0.25 MG TAB As Ordered ONE (22:57)
[2020-06-05] MEDS ORDERED: HEPARIN SOD (PORCINE) 5000UNITS/ML 1ML VIAL/SYRINGE As Ordered ONE ×3 (05:39→22:30)
[2020-06-05] MEDS ORDERED: AMIODARONE 200 MG TAB (PACERONE) ONE (08:32)
[2020-06-05] MEDS ORDERED: SERTRALINE 100 MG TAB ONE (08:32)
[2020-06-05] MEDS ORDERED: levETIRAcetam 250MG TABLET (KEPPRA) ONE (08:32)
[2020-06-05] MEDS ORDERED: PANTOPRAZOLE 40MG TAB (PROTONIX) As Ordered ONE (08:32)
[2020-06-05] MEDS ORDERED: (RENVELA) SEVELAMER **CARBONate** 800 MG TAB ONE ×3 (08:32→17:35)
[2020-06-05] MEDS ORDERED: AMIODARONE 200 MG TAB (PACERONE) As Ordered ONE (08:32)
[2020-06-05] MEDS ORDERED: (RENVELA) SEVELAMER **CARBONate** 800 MG TAB As Ordered ONE ×3 (08:32→17:32)
[2020-06-05] MEDS ORDERED: levETIRAcetam 250MG TABLET (KEPPRA) As Ordered ONE (08:32)
[2020-06-05] MEDS ORDERED: PANTOPRAZOLE 40MG TAB (PROTONIX) ONE (08:32)
[2020-06-05] MEDS ORDERED: SERTRALINE 100 MG TAB As Ordered ONE (08:32)
[2020-06-05] MEDS ORDERED: CHLORHEXIDINE GLUCONATE 0.12 % 15ML UDC (PERIDEX ORAL RINSE) ONE ×2 (13:00→13:24)
[2020-06-05] MEDS ORDERED: PRAMIPEXOLE (MIRAPEX) 0.125 MG TAB ONE (13:00)
[2020-06-05] MEDS ORDERED: HEPARIN SOD (PORCINE) 5000UNITS/ML 1ML VIAL/SYRINGE ONE (13:05)
[2020-06-05] MEDS ORDERED: oxyCODONE 5MG TAB As Ordered ONE (22:30)
[2020-06-05] MEDS ORDERED: ALPRAZolam 0.5 MG TAB As Ordered ONE (22:31)
[2020-06-05] MEDS ORDERED: LIDOCAINE 5% (LIDODERM) PATCH As Ordered ONE (22:33)
[2020-06-06] MEDS ORDERED: HEPARIN SOD (PORCINE) 5000UNITS/ML 1ML VIAL/SYRINGE As Ordered ONE ×3 (06:56→21:51)
[2020-06-06] MEDS ORDERED: (RENVELA) SEVELAMER **CARBONate** 800 MG TAB As Ordered ONE ×2 (06:56→12:01)
[2020-06-06] MEDS ORDERED: MIDODRINE 5 MG TAB As Ordered ONE ×3 (06:56→16:21)
[2020-06-06] MEDS ORDERED: SERTRALINE 100 MG TAB As Ordered ONE (06:56)
[2020-06-06] MEDS ORDERED: PANTOPRAZOLE 40MG TAB (PROTONIX) As Ordered ONE (06:56)
[2020-06-06] MEDS ORDERED: AMIODARONE 200 MG TAB (PACERONE) As Ordered ONE (06:56)
[2020-06-06] MEDS ORDERED: levETIRAcetam 250MG TABLET (KEPPRA) As Ordered ONE (06:57)
[2020-06-06] MEDS ORDERED: oxyCODONE 10 MG CR TAB As Ordered ONE (21:56)
[2020-06-06] MEDS ORDERED: ALPRAZolam 0.25 MG TAB As Ordered ONE (21:57)
[2020-06-06] MEDS ORDERED: oxyCODONE 5MG TAB As Ordered ONE (22:11)
[2020-06-07] MEDS ORDERED: HEPARIN SOD (PORCINE) 5000UNITS/ML 1ML VIAL/SYRINGE As Ordered ONE ×3 (07:02→21:51)
[2020-06-07] MEDS ORDERED: AMIODARONE 200 MG TAB (PACERONE) As Ordered ONE (08:29)
[2020-06-07] MEDS ORDERED: SERTRALINE 100 MG TAB As Ordered ONE (08:29)
[2020-06-07] MEDS ORDERED: (RENVELA) SEVELAMER **CARBONate** 800 MG TAB As Ordered ONE (08:29)
[2020-06-07] MEDS ORDERED: levETIRAcetam 250MG TABLET (KEPPRA) As Ordered ONE (08:30)
[2020-06-07] MEDS ORDERED: PANTOPRAZOLE 40MG TAB (PROTONIX) As Ordered ONE (08:30)
[2020-06-07] MEDS ORDERED: LIDOCAINE 5% (LIDODERM) PATCH As Ordered ONE (21:51)
[2020-06-07] MEDS ORDERED: oxyCODONE 5MG TAB As Ordered ONE (22:38)
[2020-06-07] MEDS ORDERED: ALPRAZolam 0.25 MG TAB As Ordered ONE (22:42)
[2020-06-08] MEDS ORDERED: MIDODRINE 5 MG TAB As Ordered ONE ×2 (06:31→11:52)
[2020-06-08] MEDS ORDERED: (RENVELA) SEVELAMER **CARBONate** 800 MG TAB As Ordered ONE ×2 (06:32→11:52)
[2020-06-08] MEDS ORDERED: HEPARIN SOD (PORCINE) 5000UNITS/ML 1ML VIAL/SYRINGE As Ordered ONE ×2 (06:32→21:34)
[2020-06-08] MEDS ORDERED: AMIODARONE 200 MG TAB (PACERONE) As Ordered ONE (06:32)
[2020-06-08] MEDS ORDERED: levETIRAcetam 250MG TABLET (KEPPRA) As Ordered ONE (06:33)
[2020-06-08] MEDS ORDERED: SERTRALINE 100 MG TAB As Ordered ONE (06:33)
[2020-06-08] MEDS ORDERED: PANTOPRAZOLE 40MG TAB (PROTONIX) As Ordered ONE (06:33)
[2020-06-08] MEDS ORDERED: SODIUM BICARBONATE 8.4% INJ 50MEQ 50 ML VIAL ONE (08:00)
[2020-06-08] MEDS ORDERED: IPRATROPIUM 0.5MG/ALBUTEROL 2.5MG INH SOL UD 3ML (DUONEB) As Ordered ONE (19:52)
[2020-06-08] MEDS ORDERED: **hydrALAZINE** 10 MG TAB As Ordered ONE (21:34)
[2020-06-08] MEDS ORDERED: oxyCODONE 5MG TAB As Ordered ONE (21:45)
[2020-06-08] MEDS ORDERED: LIDOCAINE 5% (LIDODERM) PATCH As Ordered ONE (21:45)
[2020-06-09] MEDS ORDERED: PANTOPRAZOLE 40MG TAB (PROTONIX) As Ordered ONE (09:28)
[2020-06-09] MEDS ORDERED: (RENVELA) SEVELAMER **CARBONate** 800 MG TAB As Ordered ONE ×2 (09:29→18:39)
[2020-06-09] MEDS ORDERED: SERTRALINE 100 MG TAB As Ordered ONE (09:29)
[2020-06-09] MEDS ORDERED: levETIRAcetam 250MG TABLET (KEPPRA) As Ordered ONE (09:29)
[2020-06-09] MEDS ORDERED: AMIODARONE 200 MG TAB (PACERONE) As Ordered ONE (09:29)
[2020-06-09] MEDS ORDERED: HEPARIN SOD (PORCINE) 5000UNITS/ML 1ML VIAL/SYRINGE As Ordered ONE ×2 (11:40→22:16)
[2020-06-09] MEDS ORDERED: oxyCODONE 5MG TAB As Ordered ONE ×2 (11:41→22:16)
[2020-06-09] MEDS ORDERED: PERCOCET 5MG/325MG TAB ONE (12:24)
[2020-06-09] MEDS ORDERED: PERCOCET 5MG/325MG TAB As Ordered ONE (12:24)
[2020-06-09] MEDS ORDERED: LIDOCAINE 5% (LIDODERM) PATCH As Ordered ONE (22:16)
[2020-06-09] MEDS ORDERED: ALPRAZolam 0.25 MG TAB As Ordered ONE (22:21)
[2020-06-10] MEDS ORDERED: levETIRAcetam 250MG TABLET (KEPPRA) As Ordered ONE (08:19)
[2020-06-10] MEDS ORDERED: (RENVELA) SEVELAMER **CARBONate** 800 MG TAB As Ordered ONE ×2 (08:19→18:27)
[2020-06-10] MEDS ORDERED: AMIODARONE 200 MG TAB (PACERONE) As Ordered ONE (08:20)
[2020-06-10] MEDS ORDERED: SERTRALINE 100 MG TAB As Ordered ONE (08:20)
[2020-06-10] MEDS ORDERED: PANTOPRAZOLE 20 MG TAB As Ordered ONE (08:20)
[2020-06-10] MEDS ORDERED: ALPRAZolam 0.25 MG TAB ONE (14:37)
[2020-06-10] MEDS ORDERED: oxyCODONE 5MG TAB As Ordered ONE (21:49)
[2020-06-10] MEDS ORDERED: ALPRAZolam 0.25 MG TAB As Ordered ONE (21:50)
[2020-06-10] MEDS ORDERED: HEPARIN SOD (PORCINE) 5000UNITS/ML 1ML VIAL/SYRINGE As Ordered ONE (21:50)
[2020-06-10] MEDS ORDERED: PRAMIPEXOLE (MIRAPEX) 0.125 MG TAB ONE (23:00)
[2020-06-11] MEDS ORDERED: PANTOPRAZOLE 40MG TAB (PROTONIX) As Ordered ONE (08:07)
[2020-06-11] MEDS ORDERED: MIDODRINE 5 MG TAB As Ordered ONE (08:08)
[2020-06-11] MEDS ORDERED: (RENVELA) SEVELAMER **CARBONate** 800 MG TAB As Ordered ONE (08:08)
[2020-06-11] MEDS ORDERED: SERTRALINE 100 MG TAB As Ordered ONE (08:08)
[2020-06-11] MEDS ORDERED: levETIRAcetam 250MG TABLET (KEPPRA) As Ordered ONE (08:08)
[2020-06-11] MEDS ORDERED: AMIODARONE 200 MG TAB (PACERONE) As Ordered ONE (08:09)
[2020-06-11] MEDS ORDERED: ALPRAZolam 0.25 MG TAB ONE (08:23)
[2020-06-11] MEDS ORDERED: oxyCODONE 5MG TAB ONE ×2 (08:23→17:08)
[2020-06-11] MEDS ORDERED: (RENVELA) SEVELAMER **CARBONate** 800 MG TAB ONE ×2 (12:09→17:08)
[2020-06-11] MEDS ORDERED: SODIUM CHLORIDE 0.9% INJ 10 ML SYR IV PRN ×2 (19:45)
[2020-06-11] MEDS ORDERED: **hydrALAZINE** 10 MG TAB PO PRN (19:45)
[2020-06-11] MEDS ORDERED: MIRALAX *UNIT DOSE* 17GM PACKET PO PRN (19:45)
[2020-06-11] MEDS ORDERED: BISACODYL 10 MG SUPP PR PRN (19:45)
[2020-06-11] MEDS ORDERED: IPRATROPIUM 0.5MG/ALBUTEROL 2.5MG INH SOL UD 3ML (DUONEB) NEB PRN (19:45)
[2020-06-11 20:00] VITALS: BP 166/72
[2020-06-11] MEDS ORDERED: IPRATROPIUM 0.5MG/ALBUTEROL 2.5MG INH SOL UD 3ML (DUONEB) ONE (20:08)
[2020-06-11] MEDS: IPRATROPIUM 0.5MG/ALBUTEROL 2.5MG INH SOL UD 3ML (DUONEB) NEB SCH (20:16)
[2020-06-11] MEDS: HEPARIN SOD (PORCINE) 5000UNITS/ML 1ML VIAL/SYRINGE SQ SCH (20:17)
[2020-06-11] MEDS ORDERED: MIDODRINE 5 MG TAB PO SCH (21:00)
[2020-06-11] MEDS: PRAMIPEXOLE (MIRAPEX) 0.125 MG TAB PO SCH (22:12)
[2020-06-11] MEDS: ALPRAZolam 0.25 MG TAB PO PRN (22:12)
[2020-06-11] MEDS: oxyCODONE 5MG TAB PO PRN (22:12)
[2020-06-11] MEDS: IPRATROPIUM 0.5MG/ALBUTEROL 2.5MG INH SOL UD 3ML (DUONEB) NEB PRN (23:43)
[2020-06-12] VITALS: BP 147/67
[2020-06-12] MEDS: IPRATROPIUM 0.5MG/ALBUTEROL 2.5MG INH SOL UD 3ML (DUONEB) NEB SCH ×4 (02:27→20:10)
[2020-06-12 04:00] VITALS: BP 104/53
[2020-06-12] MEDS ORDERED: SODIUM CHLORIDE 0.9% INJ 10 ML SYR IV SCH (06:00)
[2020-06-12] MEDS: HEPARIN SOD (PORCINE) 5000UNITS/ML 1ML VIAL/SYRINGE SQ SCH ×3 (06:16→21:02)
[2020-06-12] MEDS: SODIUM CHLORIDE 0.9% INJ 10 ML SYR IV SCH ×2 (06:17→18:33)
[2020-06-12 08:00] VITALS: BP 105/50
[2020-06-12] MEDS: MIDODRINE 5 MG TAB PO SCH (08:31)
[2020-06-12] MEDS: LIDOCAINE 5% (LIDODERM) PATCH TD SCH ×2 (08:31→08:37)
[2020-06-12] MEDS: levETIRAcetam 250MG TABLET (KEPPRA) PO SCH (08:32)
[2020-06-12] MEDS: (RENVELA) SEVELAMER **CARBONate** 800 MG TAB PO SCH ×3 (08:32→17:18)
[2020-06-12] MEDS: PANTOPRAZOLE 40MG TAB (PROTONIX) PO SCH (08:32)
[2020-06-12] MEDS: AMIODARONE 200 MG TAB (PACERONE) PO SCH (08:32)
[2020-06-12] MEDS: SERTRALINE 100 MG TAB PO SCH (08:32)
[2020-06-12] MEDS ORDERED: KEPP1TAB PO (09:52)
[2020-06-12 09:54] LABS: BASO % 0.5 % (0.0-1.0); EOS # 0.3 10^3/uL (0.0-0.5); EOS % 4.5 % (0.0-3.0); HEMATOCRIT 37.7 % (42.0-52.0); HEMOGLOBIN 11.5 g/dl (13.5-17.5); LYMPH # 1.8 10^3/uL (1.5-5.0); LYMPH % 26.9 % (24.0-44.0); MEAN CORPUSCULAR HGB CONC 30.5 g/dl (32.0-36.5); MEAN CORPUSCULAR VOLUME 98.4 fl (80.0-96.0); MONO # 0.4 10^3/uL (0.0-0.8); MONO % 5.4 % (0.0-5.0); NEUTROPHILS # 4.1 10^3/uL (1.5-8.5); NEUTROPHILS % 62.4 % (36.0-66.0); PLATELET COUNT, AUTOMATED 133 10^3/uL (150-450); RED BLOOD COUNT 3.83 10^6/uL (4.30-6.10); WHITE BLOOD COUNT 6.6 10^3/uL (4.0-10.0)
[2020-06-12] MEDS ORDERED: PROT1TAB2 PO (10:01)
[2020-06-12] MEDS ORDERED: HYDR100T26 PO (10:01)
[2020-06-12] MEDS ORDERED: GNP8.6TA7 PO (10:01)
[2020-06-12 10:21] LABS: ALBUMIN 2.7 GM/DL (3.2-5.2); CALCIUM LEVEL 9.3 MG/DL (8.5-10.1); CREATININE FOR GFR 8.66 MG/DL (0.70-1.30); PHOSPHORUS LEVEL 4.7 MG/DL (2.5-4.9); POTASSIUM SERUM 4.6 MEQ/L (3.5-5.1)
[2020-06-12 16:00] VITALS: BP 144/65
--- NOTE | 2020-06-12 17:39 | IPNPDOC ---
Subjective Date Seen The patient was seen on 06/12/20. Subjective Chief Complaint/HPI Hospital course: Mr. Richard is a 50 year old man, morbidly obese, NISA, respiratory failure, obesity hypoventilation syndrome, ESRD TTHS wheelch air/bedbound hypertension had been admitted due to respiratory failure, referred to [facility] for possible revision of the tracheostomy, revision cannoot done, place on a different tracheostomy collar. He has been having issues of constant secretions and suctioning, and from what I understand, [place] [facility] will not take him due to concern of frequent suctioning??? patient denies any new complaints today. No vomiting, no diarrhea, no chest pain. no dyspnea. Patient seen this afternoon. Patient's sister, Radha, was at bedside. patient went for dialysis today. He mostly just shrugged when I talk to him. No diarrhea. he has hearing difficulties Objective Physical Examination Other physical findings General: awake, alert, oriented to self and place not to time, communicates by mouthing his words, not in acute respiratory distress, appears as stated age, HEENT: anicteric sclerae, no nasal discharges, no throat exudates, no oral lesions, PERRL, EOM intact, NECK: supple, no cervical tenderness, no bruit noted, no rigidity noted, trach collar, no blockage, no secretions CHEST: clear breath sounds, equal chest expansion, no rales or wheezing CVS; s1 and s2 distinct, no murmurs audible note, no rubs, or thrills, ABDOMEN: soft, positive normoactive bowel sounds, no tenderness, no rigidity , no guarding noted EXTREMITIES: no limitation of ROM, no leg edema, no joint swelling, no calf tenderness, no atrophy, 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 Acute on chronic hypoxic and hypercapic respiratory failure, s/p tracheostomy repair/replacement 2. ESRD on HD TTHS (HD today on 06/12 as he had skipped yesterday) 3. Morbidly obese 4. Hypertension 5. seizure disorder 6. history of afib? currentlyo n amiodarone 7. Impacted cerumen, left ear PLANS: * medications reviewed, continue. No changes. * for impacted cerumen, otic carbamide peroxide. * No frequent suctioning has been done in the past few days. * hemodynamically stable for discharge, * placement is pending still. * sister, Radha, works in the [place] [facility], and she is aware that patient has been declined to go back, she mentioned about a [place] [facility] doctor there who had declined said transfer??? I will try to contact them in AM to discuss with their doctor about their concerns to help get this patient placed. * Overall, patient told me that yesterday was the first time he declined dialysis. CODE STATUS discussed with patient, and he verified he is full code. * he previously was DNR/DNI. Plan/VTE VTE Prophylaxis Ordered?: Yes VS, I&O, 24H, Fishbone Vital Signs/I&O Vital Signs Date Time Temp Pulse Resp B/P (MAP) Pulse Ox O2 Delivery O2 Flow Rate FiO2 06/12/20 16:00 97.6 61 20 144/65 (91) 97 Trach Collar 8.0 30 I&O- Last 24 Hours up to 6 AM 06/12/20 06:00 Intake Total 360 ml Output Total 0 ml Balance 360 ml Laboratory Data 24H LABS Laboratory Tests 2 06/12/20 09:30: Immature Granulocyte % (Auto) 0.3, Neutrophils (%) (Auto) 62.4, Lymphocytes (%) (Auto) 26.9, Monocytes (%) (Auto) 5.4H, Eosinophils (%) (Auto) 4.5H, Basophils (%) (Auto) 0.5, Neutrophils # (Auto) 4.1, Lymphocytes # (Auto) 1.8, Monocytes # (Auto) 0.4, Eosinophils # (Auto) 0.3, Basophils # (Auto) 0.0, Nucleated Red Blood Cells % (auto) 0.0, Anion Gap 7L, Glomerular Filtration Rate 7.0L, Calcium Level 9.3, Phosphorus Level 4.7, Albumin 2.7L CBC/BMP Laboratory Tests 06/12/20 09:30 VALERIY FREEMAN MD Jun 12, 2020 17:33
[2020-06-12 20:00] VITALS: BP 129/58
[2020-06-12] MEDS: CARBAMIDE PEROXIDE 6.5% OTIC SOLN 15ML AS SCH (21:00)
[2020-06-12] MEDS: PRAMIPEXOLE (MIRAPEX) 0.125 MG TAB PO SCH (21:01)
[2020-06-12] MEDS: oxyCODONE 5MG TAB PO PRN (21:03)
[2020-06-12] MEDS: ALPRAZolam 0.25 MG TAB PO PRN (21:03)
[2020-06-13] VITALS (9 sets, daily range): BP systolic 80–136; BP diastolic 40–64
[2020-06-13] MEDS: IPRATROPIUM 0.5MG/ALBUTEROL 2.5MG INH SOL UD 3ML (DUONEB) NEB SCH ×4 (01:09→20:16)
[2020-06-13] MEDS ORDERED: LORazepam 1 MG TAB PO ONE (01:15)
[2020-06-13] MEDS ORDERED: BENZONATATE 100 MG CAP PO PRN (01:15)
[2020-06-13] MEDS: SODIUM CHLORIDE 0.9% INJ 10 ML SYR IV SCH ×2 (05:12→17:29)
[2020-06-13] MEDS: HEPARIN SOD (PORCINE) 5000UNITS/ML 1ML VIAL/SYRINGE SQ SCH ×2 (05:12→12:17)
[2020-06-13] MEDS: ACETAMINOPHEN TAB 650MG DOSE (2X325MG) PO PRN (05:13)
[2020-06-13] MEDS: oxyCODONE 5MG TAB PO PRN ×2 (05:13→20:59)
[2020-06-13] MEDS: (RENVELA) SEVELAMER **CARBONate** 800 MG TAB PO SCH ×3 (08:00→17:28)
[2020-06-13] MEDS ORDERED: NS 1,000 ML IV ONE (08:30)
[2020-06-13] MEDS: LIDOCAINE 5% (LIDODERM) PATCH TD SCH (09:00)
[2020-06-13 09:59] LABS: HEMATOCRIT 38.2 % (42.0-52.0); HEMOGLOBIN 11.8 g/dl (13.5-17.5); MEAN CORPUSCULAR HGB CONC 30.9 g/dl (32.0-36.5); MEAN CORPUSCULAR VOLUME 97.2 fl (80.0-96.0); PLATELET COUNT, AUTOMATED 109 10^3/uL (150-450); RED BLOOD COUNT 3.93 10^6/uL (4.30-6.10); WHITE BLOOD COUNT 9.2 10^3/uL (4.0-10.0)
[2020-06-13 10:26] LABS: ALBUMIN 2.4 GM/DL (3.2-5.2); BILIRUBIN,TOTAL 3.7 MG/DL (0.2-1.0); CALCIUM LEVEL 8.9 MG/DL (8.5-10.1); CREATININE FOR GFR 5.78 MG/DL (0.70-1.30); GLOMERULAR FILTRATION RATE 11.2 (>60); POTASSIUM SERUM 4.1 MEQ/L (3.5-5.1); TOTAL PROTEIN 5.4 GM/DL (6.4-8.2)
[2020-06-13 11:07] LABS: ERYTHROCYTE SEDIMENTATION RATE 20 mm/hr (0-15)
[2020-06-13] MEDS: AMIODARONE 200 MG TAB (PACERONE) PO SCH (12:17)
[2020-06-13] MEDS: CARBAMIDE PEROXIDE 6.5% OTIC SOLN 15ML AS SCH ×2 (12:17→21:00)
[2020-06-13] MEDS: PANTOPRAZOLE 40MG TAB (PROTONIX) PO SCH (12:18)
[2020-06-13] MEDS: IPRATROPIUM 0.5MG/ALBUTEROL 2.5MG INH SOL UD 3ML (DUONEB) NEB PRN (12:18)
[2020-06-13] MEDS: levETIRAcetam 250MG TABLET (KEPPRA) PO SCH (12:18)
[2020-06-13] MEDS: SERTRALINE 100 MG TAB PO SCH (12:18)
--- NOTE | 2020-06-13 15:18 | IPNPDOC ---
Subjective Date Seen The patient was seen on 06/13/20. Subjective Chief Complaint/HPI patient had a rough night, apparently requesting suctioning every hour, coughing a lot of sputum on his own, not much secretions obtained via suctioning. patient was anxious. But was calm this morning when i saw him, he was resting, he was not able to get much sleep. he had some wheezing but no respiratory distress noted. No vomiting. had BM today, large hard stools, which was associated with bleeding after defecation, moderate amount. Patient mentioned he had history of hemorrhoid. No further bleeding now. No further anxiety episode since morning. No frequent suctioning this morning Objective Physical Examination Other physical findings General: was comfortable and asleep when I saw him , communicates by mouthing his words, not in acute respiratory distress, appears as stated age, NECK: supple, no cervical tenderness, no bruit noted, no rigidity noted, trach collar, no blockage, no secretions CHEST: clear breath sounds, equal chest expansion, scattered wheezing CVS; s1 and s2 distinct, no murmurs audible note, no rubs, or thrills, ABDOMEN: soft, positive normoactive bowel sounds, no tenderness, no rigidity , no guarding noted EXTREMITIES:no leg edema, 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 elevated lfts, with hyperbilirubinemia 1. Acute on chronic hypoxic and hypercapic respiratory failure, s/p tracheostomy repair/replacement 2. ESRD on HD TTHS (HD today on 06/12 as he had skipped yesterday) 3. Morbidly obese 4. Hypertension 5. seizure disorder 6. history of afib? currentlyo n amiodarone 7. Impacted cerumen, left ear 8. low grade fever 9. Lower rectal bleeding, post defecation, possible due to hemorrhoid, or anal fissure with history of constipation PLANS * check ultrasound abdomen. * No leukocytosis. the low grade fever could be due to build up of secretions, CXR done, awaiting xray findings, unable to view images again. * will hold off antibotics for now. * monitor recurrence of bleeding * patient has been refusing his oral medications, refusing stool softeners. his BM is one per week. * repeat H and H. * discussed with patient's nurse. Will discuss with him once he wakes up * High risk Plan/VTE VTE Prophylaxis Ordered?: Yes VS, I&O, 24H, Fishbone Vital Signs/I&O Vital Signs Date Time Temp Pulse Resp B/P (MAP) Pulse Ox O2 Delivery O2 Flow Rate FiO2 06/13/20 12:00 95.5 73 20 136/64 (88) 97 Trach Collar 8.0 30 I&O- Last 24 Hours up to 6 AM 06/13/20 06:00 Intake Total 240 ml Output Total 2000 ml Balance -1760 ml Laboratory Data 24H LABS Laboratory Tests 2 06/13/20 09:18: Nucleated Red Blood Cells % (auto) 0.0, Erythrocyte Sedimentation Rate 20H, Anion Gap 4L, Glomerular Filtration Rate 11.2L, Lactic Acid Level 1.2, Calcium Level 8.9, Total Bilirubin 3.7H, Aspartate Amino Transf (AST/SGOT) 84H, Alanine Aminotransferase (ALT/SGPT) 72, Alkaline Phosphatase 239H, Total Protein 5.4L, Albumin 2.4L, Albumin/Globulin Ratio 0.8 CBC/BMP Laboratory Tests 06/13/20 09:18 Microbiology Microbiology 06/13/20 Stool Occult Blood (JONG) - Final, Complete 06/13/20 Blood Culture, Received Pending VALERIY FREEMAN MD Jun 13, 2020 15:18
--- NOTE | 2020-06-13 15:51 | REPVR ---
PROCEDURE INFORMATION: Exam: US Abdomen, Limited; Right Upper Quadrant Exam date and time: 06/13/2020 3:31 PM Age: 50 years old Clinical indication: Abnormal findings; Abnormal lab test; Elevated liver enzymes; Additional info: Elevated lfts TECHNIQUE: Imaging protocol: US abdomen. Real time ultrasound with image documentation. Limited exam focused on the right upper quadrant. COMPARISON: GALLBLADDER US 02/16/2015 8:38 AM FINDINGS: Evaluation is limited due to patient body habitus. Liver: Fatty infiltration of the liver. Gallbladder: Contracted gallbladder. Common bile duct: Dilatation of the incompletely visualized common bile duct measuring 9 mm in diameter. Pancreas: Obscuration of the pancreas by bowel gas. Right kidney: Nonvisualization of the right kidney. IMPRESSION: 1. Technically limited examination. 2. Fatty infiltration of the liver. 3. Dilatation of the incompletely visualized common bile duct measuring 9 mm in diameter. Electronically signed by: Noe Underwood On 06/13/2020 15:51:24 PM
[2020-06-13] MEDS: PRAMIPEXOLE (MIRAPEX) 0.125 MG TAB PO SCH (20:58)
[2020-06-13] MEDS: ALPRAZolam 0.25 MG TAB PO PRN (20:59)
[2020-06-14] VITALS: BP 134/61
[2020-06-14] MEDS: oxyCODONE 5MG TAB PO PRN (01:22)
[2020-06-14] MEDS: IPRATROPIUM 0.5MG/ALBUTEROL 2.5MG INH SOL UD 3ML (DUONEB) NEB SCH ×4 (02:19→20:49)
[2020-06-14] MEDS: ALPRAZolam 0.25 MG TAB PO PRN ×2 (02:41→21:29)
[2020-06-14 04:00] VITALS: BP 114/53
[2020-06-14] MEDS: SODIUM CHLORIDE 0.9% INJ 10 ML SYR IV SCH ×2 (06:00→18:27)
[2020-06-14 08:00] VITALS: BP 105/51
[2020-06-14] MEDS: (RENVELA) SEVELAMER **CARBONate** 800 MG TAB PO SCH ×3 (08:00→18:00)
[2020-06-14] MEDS: LIDOCAINE 5% (LIDODERM) PATCH TD SCH (09:00)
[2020-06-14] MEDS: CARBAMIDE PEROXIDE 6.5% OTIC SOLN 15ML AS SCH ×2 (09:00→21:00)
[2020-06-14] MEDS: levETIRAcetam 250MG TABLET (KEPPRA) PO SCH (09:42)
[2020-06-14] MEDS: SERTRALINE 100 MG TAB PO SCH (09:42)
[2020-06-14] MEDS: PANTOPRAZOLE 40MG TAB (PROTONIX) PO SCH (09:42)
[2020-06-14] MEDS: AMIODARONE 200 MG TAB (PACERONE) PO SCH (09:42)
[2020-06-14 12:00] VITALS: BP 109/56
[2020-06-14 16:00] VITALS: BP 133/59
--- NOTE | 2020-06-14 19:00 | IPNPDOC ---
Text Note Date of Service The patient was seen on 06/14/20. NOTE patient had no further events. No vomiting noted. No dyspnea No more fever. No further rectal bleeding noted. refusing to take laxatives still Objective Physical Examination Other physical findings Vital Sign - Last 24 Hours 06/13/20 06/13/20 06/13/20 06/13/20 20:00 20:00 20:59 21:29 Temp 96.1 Pulse 62 Resp 20 20 18 B/P (MAP) 101/49 (66) Pulse Ox 95 95 O2 Delivery Trach Collar Trach Collar Trach Collar O2 Flow Rate 8.0 8.0 FiO2 30 35 06/14/20 06/14/20 06/14/20 06/14/20 00:00 00:00 01:22 01:52 Temp 97.1 Pulse 70 Resp 18 20 18 B/P (MAP) 134/61 (85) Pulse Ox 97 O2 Delivery Trach Collar Trach Collar Trach Collar O2 Flow Rate 8.0 8.0 FiO2 35 30 06/14/20 06/14/20 06/14/20 06/14/20 04:00 04:00 08:00 09:00 Temp 95.7 97.0 Pulse 60 62 Resp 19 20 B/P (MAP) 114/53 (73) 105/51 (69) Pulse Ox 92 95 O2 Delivery Trach Collar Trach Collar O2 Flow Rate 8.0 8.0 8.0 8.0 FiO2 30 35 30 35 06/14/20 06/14/20 06/14/20 06/14/20 12:00 12:00 16:00 16:00 Temp 96.2 97.5 Pulse 61 61 Resp 20 20 B/P (MAP) 109/56 (73) 133/59 (83) Pulse Ox 90 92 O2 Delivery Trach Collar Trach Collar O2 Flow Rate 8.0 8.0 8.0 8.0 FiO2 30 35 35 30 General: was comfortable and asleep when I saw him , communicates by mouthing his words, not in acute respiratory distress, appears as stated age, NECK: supple, no cervical tenderness, no bruit noted, no rigidity noted, trach collar, no blockage, no secretions CHEST: clear breath sounds, equal chest expansion, scattered wheezing CVS; s1 and s2 distinct, no murmurs audible note, no rubs, or thrills, ABDOMEN: soft, positive normoactive bowel sounds, no tenderness, no rigidity , no guarding noted EXTREMITIES:no leg edema, 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 elevated Lfts with hyperbilirubinemia, normal ultrasound 1. Acute on chronic hypoxic and hypercapnic respiratory failure, s/p tracheostomy repair/replacement 2. ESRD on HD TTHS (HD today on 06/12 as he had skipped yesterday) 3. Morbidly obese 4. Hypertension 5. seizure disorder 6. history of afib? currentlyo n amiodarone 7. Impacted cerumen, left ear 8. low grade fever 9. Lower rectal bleeding, post defecation, possible due to hemorrhoid, or anal fissure with history of constipation PLANS: * repeat labs in AM. no fruther rectal bleeding. No further fever. no frequent suctioning. * if continue t be stable in the next 24-48 hours, anticipate discharge to retirement. * high risk VS,Fishbone, I+O VS, Fishbone, I+O Vital Signs Date Time Temp Pulse Resp B/P (MAP) Pulse Ox O2 Delivery O2 Flow Rate FiO2 06/14/20 16:00 97.5 61 20 133/59 (83) 92 Trach Collar 8.0 30 I&O- Last 24 Hours up to 6 AM 06/14/20 06:00 Intake Total 480 ml Output Total 0 ml Balance 480 ml VALERIY FREEMAN MD Jun 14, 2020 19:00
[2020-06-14 20:00] VITALS: BP 136/68
[2020-06-14] MEDS: PRAMIPEXOLE (MIRAPEX) 0.125 MG TAB PO SCH (21:29)
[2020-06-14] MEDS: ACETAMINOPHEN TAB 650MG DOSE (2X325MG) PO PRN (21:48)
[2020-06-15] VITALS (10 sets, daily range): BP systolic 117–136; BP diastolic 53–64; O2SAT 92–95
[2020-06-15] MEDS: IPRATROPIUM 0.5MG/ALBUTEROL 2.5MG INH SOL UD 3ML (DUONEB) NEB SCH ×4 (02:46→19:32)
[2020-06-15] MEDS: SODIUM CHLORIDE 0.9% INJ 10 ML SYR IV SCH ×2 (05:35→17:37)
[2020-06-15] MEDS: ACETAMINOPHEN TAB 650MG DOSE (2X325MG) PO PRN ×2 (05:41→20:57)
[2020-06-15 05:58] LABS: HEMATOCRIT 37.3 % (42.0-52.0); HEMOGLOBIN 11.7 g/dl (13.5-17.5); MEAN CORPUSCULAR HEMOGLOBIN 30.2 pg (27.0-33.0); MEAN CORPUSCULAR HGB CONC 31.4 g/dl (32.0-36.5); MEAN CORPUSCULAR VOLUME 96.1 fl (80.0-96.0); PLATELET COUNT, AUTOMATED 126 10^3/uL (150-450); RED BLOOD COUNT 3.88 10^6/uL (4.30-6.10); WHITE BLOOD COUNT 5.7 10^3/uL (4.0-10.0)
[2020-06-15 06:40] LABS: ALBUMIN 2.6 GM/DL (3.2-5.2); BILIRUBIN,TOTAL 2.8 MG/DL (0.2-1.0); CALCIUM LEVEL 9.3 MG/DL (8.5-10.1); CREATININE FOR GFR 7.95 MG/DL (0.70-1.30); GLOMERULAR FILTRATION RATE 7.8 (>60); POTASSIUM SERUM 5.2 MEQ/L (3.5-5.1); TOTAL PROTEIN 5.3 GM/DL (6.4-8.2)
[2020-06-15] MEDS: (RENVELA) SEVELAMER **CARBONate** 800 MG TAB PO SCH ×3 (08:00→17:37)
[2020-06-15] MEDS: CARBAMIDE PEROXIDE 6.5% OTIC SOLN 15ML AS SCH ×3 (09:00→20:58)
[2020-06-15] MEDS: LIDOCAINE 5% (LIDODERM) PATCH TD SCH (09:00)
[2020-06-15] MEDS: PANTOPRAZOLE 40MG TAB (PROTONIX) PO SCH (13:39)
[2020-06-15] MEDS: SERTRALINE 100 MG TAB PO SCH (13:39)
[2020-06-15] MEDS: AMIODARONE 200 MG TAB (PACERONE) PO SCH (13:39)
[2020-06-15] MEDS: levETIRAcetam 250MG TABLET (KEPPRA) PO SCH (13:40)
[2020-06-15] MEDS: ALPRAZolam 0.25 MG TAB PO PRN ×2 (13:40→20:57)
[2020-06-15] MEDS: oxyCODONE 5MG TAB PO PRN (13:41)
--- NOTE | 2020-06-15 18:42 | IPNPDOC ---
Text Note Date of Service The patient was seen on 06/15/20. NOTE no acute complaints today, no vomiting, no dyspnea, some cough, no rectal bleeding Vital Sign - Last 24 Hours 06/14/20 06/14/20 06/15/20 06/15/20 20:00 20:00 00:00 00:00 Temp 97.2 96.9 Pulse 70 60 Resp 20 20 B/P (MAP) 136/68 (90) 128/62 (84) Pulse Ox 95 98 O2 Delivery Trach Collar Trach Collar O2 Flow Rate 8.0 8.0 8.0 8.0 FiO2 35 30 30 35 06/15/20 06/15/20 06/15/20 06/15/20 04:00 04:00 07:50 08:00 Temp 96.2 97.6 Pulse 56 59 Resp 20 20 B/P (MAP) 118/53 (74) 117/58 (77) Pulse Ox 93 96 O2 Delivery Trach Collar Trach Collar O2 Flow Rate 8.0 8.0 8.0 8.0 FiO2 35 30 35 35 06/15/20 06/15/20 06/15/20 06/15/20 13:28 13:30 13:41 14:11 Temp 96.1 Pulse 60 Resp 20 18 18 B/P (MAP) 136/62 (86) Pulse Ox 99 O2 Delivery Trach Collar O2 Flow Rate 8.0 8.0 FiO2 35 35 06/15/20 06/15/20 16:00 16:00 Temp 96.5 Pulse 56 Resp 20 B/P (MAP) 136/64 (88) Pulse Ox 93 O2 Delivery Trach Collar O2 Flow Rate 8.0 8.0 FiO2 35 35 General: was comfortable and asleep when I saw him , communicates by mouthing his words, not in acute respiratory distress, appears as stated age, NECK: supple, no cervical tenderness, no bruit noted, no rigidity noted, trach collar, no blockage, no secretions CHEST: clear breath sounds, equal chest expansion, scattered wheezing CVS; s1 and s2 distinct, no murmurs audible note, no rubs, or thrills, ABDOMEN: soft, positive normoactive bowel sounds, no tenderness, no rigidity , no guarding noted EXTREMITIES:no leg edema, 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 Elevated Lfts with hyperbilirubinemia, normal ultrasound 2. Acute on chronic hypoxic and hypercapnic respiratory failure, s/p tracheostomy repair/replacement 3. ESRD on HD TTHS (HD today on 06/12 as he had skipped yesterday) 4. Morbidly obese 5. Hypertension 6. seizure disorder 7. history of afib? currently on amiodarone 8. Impacted cerumen, left ear 9. Low grade fever 10. Lower rectal bleeding, post defecation, possible due to hemorrhoid, or anal fissure with history of constipation Plans: -- change miralax to dulcolax. lfts trending down, no abdominal pain. No gallstones. -- placement is an issue still. -- continue other meds. -- high risk VS,Fishbone, I+O VS, Fishbone, I+O Laboratory Tests 06/15/20 05:39 Vital Signs Date Time Temp Pulse Resp B/P (MAP) Pulse Ox O2 Delivery O2 Flow Rate FiO2 06/15/20 16:00 96.5 56 20 136/64 (88) 93 Trach Collar 8.0 35 I&O- Last 24 Hours up to 6 AM 06/15/20 06:00 Intake Total 320 ml Output Total 0 ml Balance 320 ml VALERIY FREEMAN MD Jun 15, 2020 18:41
[2020-06-15 19:34] LABS: BILIRUBIN,DIRECT 2.2 MG/DL (0.0-0.2)
[2020-06-15] MEDS: PRAMIPEXOLE (MIRAPEX) 0.125 MG TAB PO SCH (20:57)
[2020-06-16] VITALS (24 sets, daily range): BP systolic 120–156; BP diastolic 58–89; O2SAT 89–98
[2020-06-16] MEDS: IPRATROPIUM 0.5MG/ALBUTEROL 2.5MG INH SOL UD 3ML (DUONEB) NEB PRN ×3 (00:23→19:48)
[2020-06-16] MEDS: IPRATROPIUM 0.5MG/ALBUTEROL 2.5MG INH SOL UD 3ML (DUONEB) NEB SCH ×4 (01:41→20:10)
[2020-06-16 05:50] LABS: HEMATOCRIT 38.6 % (42.0-52.0); HEMOGLOBIN 11.9 g/dl (13.5-17.5); MEAN CORPUSCULAR HEMOGLOBIN 29.9 pg (27.0-33.0); MEAN CORPUSCULAR HGB CONC 30.8 g/dl (32.0-36.5); PLATELET COUNT, AUTOMATED 130 10^3/uL (150-450); RED BLOOD COUNT 3.98 10^6/uL (4.30-6.10); WHITE BLOOD COUNT 4.6 10^3/uL (4.0-10.0)
[2020-06-16] MEDS: SODIUM CHLORIDE 0.9% INJ 10 ML SYR IV SCH ×2 (06:12→17:17)
[2020-06-16 06:26] LABS: CALCIUM LEVEL 9.2 MG/DL (8.5-10.1); CREATININE FOR GFR 4.65 MG/DL (0.70-1.30); GLOMERULAR FILTRATION RATE 14.4 (>60); POTASSIUM SERUM 3.9 MEQ/L (3.5-5.1)
[2020-06-16] MEDS: (RENVELA) SEVELAMER **CARBONate** 800 MG TAB PO SCH ×4 (08:00→17:17)
[2020-06-16] MEDS: ACETAMINOPHEN TAB 650MG DOSE (2X325MG) PO PRN ×2 (08:54→21:00)
[2020-06-16] MEDS: SERTRALINE 100 MG TAB PO SCH (08:55)
[2020-06-16] MEDS: levETIRAcetam 250MG TABLET (KEPPRA) PO SCH (08:55)
[2020-06-16] MEDS: AMIODARONE 200 MG TAB (PACERONE) PO SCH (08:55)
[2020-06-16] MEDS: PANTOPRAZOLE 40MG TAB (PROTONIX) PO SCH (08:55)
[2020-06-16] MEDS: BISACODYL 5 MG TAB PO SCH (08:55)
[2020-06-16] MEDS: CARBAMIDE PEROXIDE 6.5% OTIC SOLN 15ML AS SCH (08:56)
[2020-06-16] MEDS: LIDOCAINE 5% (LIDODERM) PATCH TD SCH (08:56)
--- NOTE | 2020-06-16 15:43 | IPNPDOC ---
Text Note Date of Service The patient was seen on 06/16/20. NOTE patient seen this morning, he is asleep. no events overnight. has not been refusing meds today Vital Sign - Last 24 Hours 06/15/20 06/15/20 06/15/20 06/15/20 16:00 16:00 19:00 20:00 Temp 96.5 96.3 Pulse 56 58 Resp 20 20 B/P (MAP) 136/64 (88) 127/58 (81) Pulse Ox 93 92 93 O2 Delivery Trach Collar Trach Collar Trach Collar O2 Flow Rate 8.0 8.0 8.0 8.0 FiO2 35 35 35 35 06/15/20 06/15/20 06/15/20 06/15/20 20:00 20:00 21:00 22:00 Pulse Ox 92 95 94 O2 Delivery Trach Collar Trach Collar Trach Collar O2 Flow Rate 8.0 8.0 8.0 8.0 FiO2 35 35 35 35 06/15/20 06/16/20 06/16/20 06/16/20 23:00 00:00 00:00 00:00 Temp 96.9 Pulse 78 Resp 20 B/P (MAP) 140/89 (106) Pulse Ox 93 91 94 O2 Delivery Trach Collar Trach Collar Trach Collar O2 Flow Rate 8.0 8.0 8.0 8.0 FiO2 35 35 35 35 06/16/20 06/16/20 06/16/20 06/16/20 01:00 02:00 03:00 04:00 Pulse Ox 95 96 95 O2 Delivery Trach Collar Trach Collar Trach Collar O2 Flow Rate 8.0 8.0 8.0 8.0 FiO2 35 35 35 35 06/16/20 06/16/20 06/16/20 06/16/20 04:00 04:00 05:00 06:00 Temp 96.8 Pulse 56 Resp 20 B/P (MAP) 120/58 (78) Pulse Ox 90 89 95 96 O2 Delivery Trach Collar Trach Collar Trach Collar Trach Collar O2 Flow Rate 8.0 8.0 8.0 8.0 FiO2 35 35 35 35 06/16/20 06/16/20 06/16/20 06/16/20 07:00 08:00 08:00 08:00 Temp 97.7 Pulse 56 Resp 24 B/P (MAP) 120/58 (78) Pulse Ox 96 95 98 O2 Delivery Trach Collar Trach Collar Trach Collar O2 Flow Rate 8.0 8.0 8.0 8.0 FiO2 35 35 35 35 06/16/20 06/16/20 06/16/20 06/16/20 09:00 10:00 11:00 12:00 Temp 96.3 Pulse 56 Resp 20 B/P (MAP) 128/59 (82) Pulse Ox 95 97 98 99 O2 Delivery Trach Collar Trach Collar Trach Collar Trach Collar O2 Flow Rate 8.0 8.0 8.0 8.0 FiO2 35 35 35 35 he is asleep, appears comfortable. Laboratory Tests 06/15/20 05:39 Assessments: 1. Elevated Lfts with hyperbilirubinemia, normal ultrasound 2. Acute on chronic hypoxic and hypercapnic respiratory failure, s/p tracheostomy repair/replacement 3. ESRD on HD TTHS (HD today on 06/12 as he had skipped yesterday) 4. Morbidly obese 5. Hypertension 6. seizure disorder 7. history of afib? currently on amiodarone 8. Impacted cerumen, left ear 9. Low grade fever 10. Lower rectal bleeding, post defecation, possible due to hemorrhoid, or anal fissure with history of constipation PLANS: no changes in treatment plans. He has been stable for the past few days. No frequent suctioning, and the last time he requested to have suctioning done, not much has suctioned, he is able to cough. he has episodes of refusing meds, he does not have regular BM, and had some rectal bleeding after a constipated stool but refused laxative, but lately has been agreeable. will discuss with [facility] and [facility], for placement. transfer to [facility] status VS,Carlie, I+O VS, Fishjanae, I+O Laboratory Tests 06/16/20 05:34 06/16/20 05:39 Vital Signs Date Time Temp Pulse Resp B/P (MAP) Pulse Ox O2 Delivery O2 Flow Rate FiO2 06/16/20 12:00 96.3 56 20 128/59 (82) 99 Trach Collar 8.0 35 I&O- Last 24 Hours up to 6 AM 06/16/20 06:00 Intake Total 60 ml Output Total 2000 ml Balance -1940 ml VALERIY FREEMAN MD Jun 16, 2020 15:43
[2020-06-16 16:10] LABS: HEMATOCRIT 36.6 % (42.0-52.0); HEMOGLOBIN 11.5 g/dl (13.5-17.5); MEAN CORPUSCULAR HEMOGLOBIN 30.9 pg (27.0-33.0); MEAN CORPUSCULAR HGB CONC 31.4 g/dl (32.0-36.5); MEAN CORPUSCULAR VOLUME 98.4 fl (80.0-96.0); PLATELET COUNT, AUTOMATED 154 10^3/uL (150-450); RED BLOOD COUNT 3.72 10^6/uL (4.30-6.10); WHITE BLOOD COUNT 6.2 10^3/uL (4.0-10.0)
[2020-06-16] MEDS: ALPRAZolam 0.25 MG TAB PO PRN (21:00)
[2020-06-16] MEDS: PRAMIPEXOLE (MIRAPEX) 0.125 MG TAB PO SCH (21:01)
[2020-06-17] VITALS (8 sets, daily range): BP systolic 141; BP diastolic 67; O2SAT 94–97
[2020-06-17] MEDS: IPRATROPIUM 0.5MG/ALBUTEROL 2.5MG INH SOL UD 3ML (DUONEB) NEB SCH ×4 (01:27→20:46)
[2020-06-17] MEDS: SODIUM CHLORIDE 0.9% INJ 10 ML SYR IV SCH ×2 (05:27→18:06)
[2020-06-17] MEDS: IPRATROPIUM 0.5MG/ALBUTEROL 2.5MG INH SOL UD 3ML (DUONEB) NEB PRN (05:31)
[2020-06-17 06:20] LABS: HEMATOCRIT 37.4 % (42.0-52.0); HEMOGLOBIN 11.6 g/dl (13.5-17.5); MEAN CORPUSCULAR VOLUME 96.6 fl (80.0-96.0); PLATELET COUNT, AUTOMATED 118 10^3/uL (150-450); RED BLOOD COUNT 3.87 10^6/uL (4.30-6.10)
[2020-06-17 06:34] LABS: CALCIUM LEVEL 9.2 MG/DL (8.5-10.1); CREATININE FOR GFR 5.83 MG/DL (0.70-1.30); GLOMERULAR FILTRATION RATE 11.1 (>60); POTASSIUM SERUM 4.3 MEQ/L (3.5-5.1)
[2020-06-17] MEDS: (RENVELA) SEVELAMER **CARBONate** 800 MG TAB PO SCH ×4 (08:00→18:00)
[2020-06-17] MEDS: PANTOPRAZOLE 40MG TAB (PROTONIX) PO SCH (08:17)
[2020-06-17] MEDS: AMIODARONE 200 MG TAB (PACERONE) PO SCH (08:17)
[2020-06-17] MEDS: LIDOCAINE 5% (LIDODERM) PATCH TD SCH (08:17)
[2020-06-17] MEDS: BISACODYL 5 MG TAB PO SCH (08:18)
[2020-06-17] MEDS: levETIRAcetam 250MG TABLET (KEPPRA) PO SCH (08:18)
[2020-06-17] MEDS: SERTRALINE 100 MG TAB PO SCH (08:18)
--- NOTE | 2020-06-17 19:25 | IPNPDOC ---
Text Note Date of Service The patient was seen on 06/17/20. NOTE Hospital course: Mr. Richard is a 50 year old man, morbidly obese, NISA, respiratory failure, obesity hypoventilation syndrome, ESRD TTHS wheelchair/bedbound hypertension had been admitted due to respiratory failure, referred to [facility] for possible revision of the tracheostomy, revision cannoot done, place on a different tracheostomy collar. He has been having issues of constant secretions and suctioning, and from what I understand, retirement will not take him due to concern of frequent suctioning??? I called nursing center tutor of nursing today [phone] - Sho Dowell, left voicemail, but no response. Since I took over his care, he has been doing well, except for occasions where he refused medications and sometimes dialysis. He has not been suctioned frequently, he had one incident at night last week, where he requested to be suctioned but only minimal aspirate, most were expectorated by patient. He has been encourage to take breathing exercises so he can expectorate. He also had one episode of rectal bleeding after a very constipated hard stool. No recurrence after. Hgb stable. He had mild elevated lfs, US showed fatty liver. Overall, he has been stable in the past week. [facility] placement has been a challenged. He has history of noncompliance, very difficult behavior unfortunately. He is in ALC status. VS,Fishbone, I+O VS, Fishbone, I+O Laboratory Tests 06/17/20 05:49 Vital Signs Date Time Temp Pulse Resp B/P (MAP) Pulse Ox O2 Delivery O2 Flow Rate FiO2 06/17/20 16:00 8.0 35 06/17/20 06:00 95 Trach Collar 06/16/20 20:00 96.1 56 18 156/77 (103) I&O- Last 24 Hours up to 6 AM 06/17/20 06:00 Intake Total 420 ml Output Total 0 ml Balance 420 ml VALERIY FREEMAN MD Jun 17, 2020 19:25
[2020-06-17] MEDS: PRAMIPEXOLE (MIRAPEX) 0.125 MG TAB PO SCH (21:30)
[2020-06-17] MEDS: ALPRAZolam 0.25 MG TAB PO PRN (21:30)
[2020-06-17] MEDS: oxyCODONE 5MG TAB PO PRN (21:31)
[2020-06-18] MEDS: IPRATROPIUM 0.5MG/ALBUTEROL 2.5MG INH SOL UD 3ML (DUONEB) NEB SCH ×4 (01:47→19:51)
[2020-06-18] MEDS: SODIUM CHLORIDE 0.9% INJ 10 ML SYR IV SCH ×2 (06:10→17:18)
[2020-06-18] MEDS: (RENVELA) SEVELAMER **CARBONate** 800 MG TAB PO SCH ×3 (08:00→17:11)
[2020-06-18] MEDS: LIDOCAINE 5% (LIDODERM) PATCH TD SCH (09:00)
[2020-06-18 09:34] LABS: HEMATOCRIT 37.4 % (42.0-52.0); MEAN CORPUSCULAR HEMOGLOBIN 30.7 pg (27.0-33.0); MEAN CORPUSCULAR HGB CONC 32.1 g/dl (32.0-36.5); MEAN CORPUSCULAR VOLUME 95.7 fl (80.0-96.0); PLATELET COUNT, AUTOMATED 141 10^3/uL (150-450); RED BLOOD COUNT 3.91 10^6/uL (4.30-6.10); WHITE BLOOD COUNT 5.6 10^3/uL (4.0-10.0)
[2020-06-18 09:54] LABS: CALCIUM LEVEL 9.1 MG/DL (8.5-10.1); CREATININE FOR GFR 7.1 MG/DL (0.70-1.30); GLOMERULAR FILTRATION RATE 8.8 (>60); POTASSIUM SERUM 4.7 MEQ/L (3.5-5.1)
[2020-06-18] MEDS: AMIODARONE 200 MG TAB (PACERONE) PO SCH (13:35)
[2020-06-18] MEDS: levETIRAcetam 250MG TABLET (KEPPRA) PO SCH (13:35)
[2020-06-18] MEDS: MIDODRINE 5 MG TAB PO SCH (13:36)
[2020-06-18] MEDS: PANTOPRAZOLE 40MG TAB (PROTONIX) PO SCH (13:36)
[2020-06-18] MEDS: BISACODYL 5 MG TAB PO SCH (13:36)
[2020-06-18] MEDS: SERTRALINE 100 MG TAB PO SCH (13:36)
[2020-06-18 20:00] VITALS: BP 195/83
[2020-06-18] MEDS: ALPRAZolam 0.25 MG TAB PO PRN (20:35)
[2020-06-18] MEDS: PRAMIPEXOLE (MIRAPEX) 0.125 MG TAB PO SCH (20:35)
[2020-06-18] MEDS: oxyCODONE 5MG TAB PO PRN (20:37)
[2020-06-19] MEDS: IPRATROPIUM 0.5MG/ALBUTEROL 2.5MG INH SOL UD 3ML (DUONEB) NEB SCH ×4 (01:23→18:35)
[2020-06-19] MEDS: SODIUM CHLORIDE 0.9% INJ 10 ML SYR IV SCH ×2 (06:00→18:25)
[2020-06-19] MEDS: (RENVELA) SEVELAMER **CARBONate** 800 MG TAB PO SCH ×3 (08:00→18:22)
[2020-06-19 08:45] VITALS: O2SAT 99
[2020-06-19] MEDS: BISACODYL 5 MG TAB PO SCH (09:00)
[2020-06-19] MEDS: LIDOCAINE 5% (LIDODERM) PATCH TD SCH (09:00)
[2020-06-19] MEDS: PANTOPRAZOLE 40MG TAB (PROTONIX) PO SCH (09:00)
[2020-06-19] MEDS: SERTRALINE 100 MG TAB PO SCH (09:23)
[2020-06-19] MEDS: AMIODARONE 200 MG TAB (PACERONE) PO SCH (09:23)
[2020-06-19] MEDS: levETIRAcetam 250MG TABLET (KEPPRA) PO SCH (09:23)
[2020-06-19 10:19] LABS: HEMATOCRIT 40.1 % (42.0-52.0); HEMOGLOBIN 12.3 g/dl (13.5-17.5); MEAN CORPUSCULAR HEMOGLOBIN 29.8 pg (27.0-33.0); MEAN CORPUSCULAR HGB CONC 30.7 g/dl (32.0-36.5); MEAN CORPUSCULAR VOLUME 97.1 fl (80.0-96.0); PLATELET COUNT, AUTOMATED 150 10^3/uL (150-450); RED BLOOD COUNT 4.13 10^6/uL (4.30-6.10); WHITE BLOOD COUNT 6.4 10^3/uL (4.0-10.0)
[2020-06-19 10:23] LABS: CALCIUM LEVEL 9.1 MG/DL (8.5-10.1); CREATININE FOR GFR 4.63 MG/DL (0.70-1.30); GLOMERULAR FILTRATION RATE 14.5 (>60); POTASSIUM SERUM 4.3 MEQ/L (3.5-5.1)
[2020-06-19 12:00] VITALS: BP 170/82
[2020-06-19 17:38] VITALS: BP 149/70
[2020-06-19 22:01] VITALS: BP 178/80
[2020-06-19] MEDS: oxyCODONE 5MG TAB PO PRN (22:03)
[2020-06-19] MEDS: PRAMIPEXOLE (MIRAPEX) 0.125 MG TAB PO SCH (22:04)
[2020-06-19] MEDS: ALPRAZolam 0.25 MG TAB PO PRN (22:04)
[2020-06-19] MEDS: IPRATROPIUM 0.5MG/ALBUTEROL 2.5MG INH SOL UD 3ML (DUONEB) NEB PRN (22:53)
[2020-06-19 23:08] VITALS: BP 173/70
[2020-06-20] MEDS: IPRATROPIUM 0.5MG/ALBUTEROL 2.5MG INH SOL UD 3ML (DUONEB) NEB SCH ×4 (01:59→20:12)
[2020-06-20 06:00] VITALS: BP 156/69
[2020-06-20] MEDS: PANTOPRAZOLE 40MG TAB (PROTONIX) PO SCH (06:40)
[2020-06-20] MEDS: MIDODRINE 5 MG TAB PO SCH (06:40)
[2020-06-20] MEDS: SERTRALINE 100 MG TAB PO SCH (06:40)
[2020-06-20] MEDS: levETIRAcetam 250MG TABLET (KEPPRA) PO SCH (06:40)
[2020-06-20] MEDS: AMIODARONE 200 MG TAB (PACERONE) PO SCH (06:40)
[2020-06-20] MEDS: BISACODYL 5 MG TAB PO SCH (06:40)
[2020-06-20] MEDS: SODIUM CHLORIDE 0.9% INJ 10 ML SYR IV SCH ×2 (06:41→18:00)
[2020-06-20] MEDS: LIDOCAINE 5% (LIDODERM) PATCH TD SCH (06:43)
[2020-06-20] MEDS: (RENVELA) SEVELAMER **CARBONate** 800 MG TAB PO SCH ×3 (07:59→18:00)
[2020-06-20] MEDS: ALPRAZolam 0.25 MG TAB PO PRN ×2 (08:00→21:40)
[2020-06-20] MEDS: oxyCODONE 5MG TAB PO PRN ×2 (08:00→21:40)
[2020-06-20 14:00] VITALS: BP 124/74
[2020-06-20] MEDS: PRAMIPEXOLE (MIRAPEX) 0.125 MG TAB PO SCH (21:40)
[2020-06-21] MEDS: IPRATROPIUM 0.5MG/ALBUTEROL 2.5MG INH SOL UD 3ML (DUONEB) NEB SCH ×4 (01:20→20:20)
[2020-06-21 06:00] VITALS: BP 121/65
[2020-06-21] MEDS: LIDOCAINE 5% (LIDODERM) PATCH TD SCH (09:00)
[2020-06-21] MEDS: PANTOPRAZOLE 40MG TAB (PROTONIX) PO SCH (09:46)
[2020-06-21] MEDS: AMIODARONE 200 MG TAB (PACERONE) PO SCH (09:46)
[2020-06-21] MEDS: SERTRALINE 100 MG TAB PO SCH (09:46)
[2020-06-21] MEDS: levETIRAcetam 250MG TABLET (KEPPRA) PO SCH (09:46)
[2020-06-21] MEDS: (RENVELA) SEVELAMER **CARBONate** 800 MG TAB PO SCH ×4 (09:46→16:49)
[2020-06-21] MEDS: BISACODYL 5 MG TAB PO SCH (09:46)
[2020-06-21] MEDS: ALPRAZolam 0.25 MG TAB PO PRN (21:06)
[2020-06-21] MEDS: PRAMIPEXOLE (MIRAPEX) 0.125 MG TAB PO SCH (21:06)
[2020-06-21] MEDS: oxyCODONE 5MG TAB PO PRN (21:08)
[2020-06-22] MEDS: IPRATROPIUM 0.5MG/ALBUTEROL 2.5MG INH SOL UD 3ML (DUONEB) NEB SCH ×4 (00:56→19:51)
[2020-06-22 06:00] VITALS: BP 118/51
[2020-06-22] MEDS: (RENVELA) SEVELAMER **CARBONate** 800 MG TAB PO SCH ×3 (08:00→17:43)
[2020-06-22] MEDS: levETIRAcetam 250MG TABLET (KEPPRA) PO SCH (08:23)
[2020-06-22] MEDS: AMIODARONE 200 MG TAB (PACERONE) PO SCH (08:23)
[2020-06-22] MEDS: SERTRALINE 100 MG TAB PO SCH (08:23)
[2020-06-22] MEDS: BISACODYL 5 MG TAB PO SCH (08:23)
[2020-06-22] MEDS: PANTOPRAZOLE 40MG TAB (PROTONIX) PO SCH (08:23)
[2020-06-22] MEDS: LIDOCAINE 5% (LIDODERM) PATCH TD SCH (08:24)
[2020-06-22] MEDS: oxyCODONE 5MG TAB PO PRN ×2 (08:24→21:33)
[2020-06-22] MEDS: MIDODRINE 5 MG TAB PO SCH ×2 (09:36→17:31)
[2020-06-22 10:18] LABS: BASO % 0.8 % (0.0-1.0); EOS # 0.6 10^3/uL (0.0-0.5); EOS % 11.8 % (0.0-3.0); HEMOGLOBIN 12.3 g/dl (13.5-17.5); LYMPH # 1.8 10^3/uL (1.5-5.0); LYMPH % 33.8 % (24.0-44.0); MEAN CORPUSCULAR HEMOGLOBIN 29.6 pg (27.0-33.0); MEAN CORPUSCULAR HGB CONC 30.8 g/dl (32.0-36.5); MEAN CORPUSCULAR VOLUME 96.4 fl (80.0-96.0); MONO # 0.4 10^3/uL (0.0-0.8); NEUTROPHILS # 2.4 10^3/uL (1.5-8.5); NEUTROPHILS % 45.7 % (36.0-66.0); PLATELET COUNT, AUTOMATED 178 10^3/uL (150-450); RED BLOOD COUNT 4.15 10^6/uL (4.30-6.10); WHITE BLOOD COUNT 5.3 10^3/uL (4.0-10.0)
[2020-06-22 11:14] LABS: ALBUMIN 2.7 GM/DL (3.2-5.2); CALCIUM LEVEL 9.6 MG/DL (8.5-10.1); CREATININE FOR GFR 5.12 MG/DL (0.70-1.30); GLOMERULAR FILTRATION RATE 12.9 (>60); POTASSIUM SERUM 4.2 MEQ/L (3.5-5.1)
[2020-06-22 14:16] VITALS: O2SAT 99
[2020-06-22] MEDS: ALPRAZolam 0.25 MG TAB PO PRN (21:31)
[2020-06-22] MEDS: PRAMIPEXOLE (MIRAPEX) 0.125 MG TAB PO SCH (21:36)
[2020-06-23] MEDS: IPRATROPIUM 0.5MG/ALBUTEROL 2.5MG INH SOL UD 3ML (DUONEB) NEB SCH ×4 (01:46→19:53)
[2020-06-23 06:00] VITALS: BP 138/77
[2020-06-23] MEDS: (RENVELA) SEVELAMER **CARBONate** 800 MG TAB PO SCH ×3 (08:00→17:43)
[2020-06-23] MEDS: LIDOCAINE 5% (LIDODERM) PATCH TD SCH (09:00)
[2020-06-23] MEDS: levETIRAcetam 250MG TABLET (KEPPRA) PO SCH (11:23)
[2020-06-23] MEDS: PANTOPRAZOLE 40MG TAB (PROTONIX) PO SCH (11:23)
[2020-06-23] MEDS: ALPRAZolam 0.25 MG TAB PO PRN ×2 (11:23→20:14)
[2020-06-23] MEDS: AMIODARONE 200 MG TAB (PACERONE) PO SCH (11:23)
[2020-06-23] MEDS: BISACODYL 5 MG TAB PO SCH (11:23)
[2020-06-23] MEDS: oxyCODONE 5MG TAB PO PRN ×2 (11:23→20:14)
[2020-06-23] MEDS: SERTRALINE 100 MG TAB PO SCH (11:24)
[2020-06-23] MEDS: IPRATROPIUM 0.5MG/ALBUTEROL 2.5MG INH SOL UD 3ML (DUONEB) NEB PRN ×2 (11:47→16:29)
--- NOTE | 2020-06-23 12:10 | IPNPDOC ---
Date Seen The patient was seen on 06/23/20. Progress Note SUBJECTIVE: Per social work and dicharge planning team, patient cannot return to prior living facility as they are refusing to take him back due to the increased amount of care he requires with trach. He has been suctioned 3 times in 12 hour shift on 06/20/20. Patient has no acute complaints. OBJECTIVE PHYSICAL EXAMINATION: VS: Please see below GENERAL: awake, alert, oriented to self and place not to time, communicates by mouthing his words, NAD, responding appropriately HEENT: anicteric sclerae, no nasal discharges, no throat exudates, no oral lesions, PERRL, EOM intact NECK: supple, no cervical tenderness, no bruit noted, no rigidity noted, trach in place by collar, no blockage CHEST: clear breath sounds, equal chest expansion, no rales or wheezing CVS; s1 and s2 distinct, no murmurs audible note, no rubs, or thrills, ABDOMEN: soft, positive normoactive bowel sounds, no tenderness, no rigidity , no guarding noted EXTREMITIES: no limitation of ROM, no joint swelling, no calf tenderness, no atrophy, weak all over, chronic upper and lower ext swelling SACK CLEANING HAND; awake, alert, oriented x 2 , CN II-XII grossly intact, no focal sensory or motor deficits Psych, no anxiety, comfortable, no hallucinations or delusions, depressed mood, no suicidal ideation CURRENT MEDICATIONS: Please see below IMAGING/MICROBIOLOGY/LABORATORY: Please see below ASSESSMENT: 1. Acute on chronic hypoxic and hypercapic respiratory failure, s/p tracheostomy repair/replacement 2. ESRD on HD TTHS (HD today on 06/12 as he had skipped yesterday) 3. Morbidly obese 4. Hypertension 5. seizure disorder 6. history of afib? currentlyo n amiodarone 7. Impacted cerumen, left ear PLAN: * medications reviewed, continue. No changes. * hemodynamically stable for discharge, * placement is pending still. * Full code DISPOSITION: Previous living facility will not take back so will need to discuss with WILL, JULY where would be other options. VS, I&O, 24H, Fishbone Vital Signs/I&O Vital Signs Date Time Temp Pulse Resp B/P (MAP) Pulse Ox O2 Delivery O2 Flow Rate FiO2 06/23/20 11:23 18 06/23/20 06:00 98.6 66 138/77 (97) 94 06/22/20 22:03 Trach Collar 36 06/22/20 21:33 8.0 I&O- Last 24 Hours up to 6 AM 06/23/20 06:00 Intake Total 860 ml Output Total 2000 ml Balance -1140 ml Laboratory Data Microbiology Microbiology 06/13/20 Stool Occult Blood (JONG) - Final, Complete 06/13/20 Blood Culture - Final, Complete NO GROWTH AFTER 5 DAYS Current Medications Current Medications Medications (Trade) Dose Ordered Sig/Alicia Route PRN Reason Start Time Stop Time Status Last Admin Dose Admin Acetaminophen (Tylenol Tab) 650 mg Q6HP PRN PO PAIN / FEVER 06/13/20 04:45 06/16/20 21:00 Albuterol/ Ipratropium (Duoneb (Ipr 0.5mg/Alb 2.5mg)) 3 ml Q2H PRN NEB SHORTNESS OF BREATH 06/11/20 19:45 06/23/20 11:47 Albuterol/ Ipratropium (Duoneb (Ipr 0.5mg/Alb 2.5mg)) 3 ml Q6H PRN NEB SOB/WHEEZING 06/11/20 19:45 06/11/20 19:45 DC Albuterol/ Ipratropium (Duoneb (Ipr 0.5mg/Alb 2.5mg)) 3 ml RQ6H NEB 06/11/20 20:00 06/23/20 08:11 Alprazolam (Xanax) 0.25 mg Q6H PRN PO ANXIETY 06/11/20 19:45 06/23/20 11:23 Amiodarone HCl (Pacerone, Cordarone) 200 mg DAILY PO 06/12/20 09:00 06/23/20 11:23 Benzonatate (Tessalon Perles) 100 mg Q8HP PRN PO COUGH 06/13/20 01:15 06/13/20 12:18 Bisacodyl (Dulcolax Suppository) 10 mg DAILYPRN PRN [place] CONSTIPATION 06/11/20 19:45 06/15/20 16:46 DC Bisacodyl (Dulcolax Tab) 5 mg DAILY PO 06/16/20 09:00 06/23/20 11:23 Carbamide Peroxide (Debrox) 3 drop BID 06/12/20 21:00 06/16/20 09:01 DC 06/13/20 12:17 Heparin Sodium (Heparin (Flush)) 200 units ASDIRECTED PRN IV SEE LABEL COMMENTS 06/11/20 19:45 06/11/20 19:49 DC Heparin Sodium (Heparin (Flush)) 200 units ASDIRECTED PRN IV SEE LABEL COMMENTS 06/11/20 19:45 06/20/20 18:55 DC 06/20/20 06:42 Heparin Sodium (Heparin (Flush)) 200 units PICC IV 06/12/20 06:00 06/11/20 19:48 DC Heparin Sodium (Heparin (Flush)) 200 units PICC IV 06/12/20 06:00 06/20/20 18:55 DC 06/20/20 06:41 Heparin Sodium (Porcine) (Heparin) 5,000 units Q8H SQ 06/11/20 22:00 06/13/20 15:19 DC 06/13/20 12:17 Home Med (Med Rec Complete!) ASDIRECTED XX 06/12/20 10:15 06/12/20 10:08 DC Hydralazine HCl (Apresoline) 10 mg Q6H PRN PO SBP>170 06/11/20 19:45 06/19/20 22:01 Levetiracetam (Keppra) 500 mg DAILY PO 06/12/20 09:00 06/23/20 11:23 Lidocaine (Lidoderm Patch) 1 patch DAILY TD 06/12/20 09:00 06/17/20 08:17 Midodrine (Proamatine) 10 mg ASDIRECTED PO 06/11/20 20:30 06/22/20 09:36 Midodrine (Proamatine) 10 mg HD PO 06/11/20 21:00 06/11/20 20:22 DC Non-Formulary Medication ( See Comment Field Below ) REMOVE LIDODERM PATCH DAILY@21 XX 06/11/20 21:00 06/18/20 20:38 Oxycodone HCl (Roxicodone, Oxyir) 10 mg Q4H PRN PO PAIN 06/11/20 19:45 06/23/20 11:23 Pantoprazole Sodium (Protonix) 40 mg DAILY PO 06/12/20 09:00 06/23/20 11:23 Polyethylene Glycol (Miralax) 1 pkt DAILY PRN PO CONSTIPATION 06/11/20 19:45 06/15/20 16:45 DC Pramipexole Dihydrochloride (Mirapex) 0.125 mg QHS PO 06/11/20 21:00 06/22/20 21:36 Sertraline HCl (Zoloft) 100 mg DAILY PO 06/12/20 09:00 06/23/20 11:24 Sevelamer Carbonate (Renvela) 2,400 mg WM PO 06/12/20 08:00 06/22/20 17:43 Sodium Chloride (Saline Lock Flush) 10 ml ASDIRECTED PRN IV SEE LABEL COMMENTS 06/11/20 19:45 06/11/20 19:50 DC Sodium Chloride (Saline Lock Flush) 10 ml ASDIRECTED PRN IV SEE LABEL COMMENTS 06/11/20 19:45 06/20/20 18:55 DC 06/20/20 06:41 Sodium Chloride (Saline Lock Flush) 10 ml PICC IV 06/12/20 06:00 06/11/20 19:49 DC Sodium Chloride (Saline Lock Flush) 10 ml PICC IV 06/12/20 06:00 06/20/20 18:55 DC 06/20/20 06:41 Allergies Coded Allergies: moxifloxacin (Verified Allergy, Intermediate, RASH, 12/25/19) codeine (Verified Allergy, Unknown, 12/25/19) valsartan (Verified Allergy, Unknown, 12/25/19) Claudette Padron MD Jun 23, 2020 12:10
[2020-06-23] MEDS: PRAMIPEXOLE (MIRAPEX) 0.125 MG TAB PO SCH (20:13)
[2020-06-24] MEDS: IPRATROPIUM 0.5MG/ALBUTEROL 2.5MG INH SOL UD 3ML (DUONEB) NEB SCH ×4 (01:22→19:07)
[2020-06-24 06:00] VITALS: BP 169/69
[2020-06-24] MEDS: (RENVELA) SEVELAMER **CARBONate** 800 MG TAB PO SCH ×4 (07:56→17:30)
[2020-06-24] MEDS: oxyCODONE 5MG TAB PO PRN ×2 (07:57→20:50)
[2020-06-24] MEDS: SERTRALINE 100 MG TAB PO SCH (07:58)
[2020-06-24] MEDS: PANTOPRAZOLE 40MG TAB (PROTONIX) PO SCH (07:58)
[2020-06-24] MEDS: levETIRAcetam 250MG TABLET (KEPPRA) PO SCH (07:58)
[2020-06-24] MEDS: AMIODARONE 200 MG TAB (PACERONE) PO SCH (07:58)
[2020-06-24] MEDS: LIDOCAINE 5% (LIDODERM) PATCH TD SCH ×2 (07:59→08:12)
[2020-06-24] MEDS: BISACODYL 5 MG TAB PO SCH (07:59)
[2020-06-24] MEDS: ALPRAZolam 0.25 MG TAB PO PRN ×2 (08:11→20:49)
--- NOTE | 2020-06-24 16:26 | IPNPDOC ---
Text Note Date of Service The patient was seen on 06/24/20. NOTE SUBJECTIVE: Patient was seen and examined this morning resting comfortably in bed. OBJECTIVE: PHYSICAL EXAMINATION: VITAL SIGNS: Please see below. GENERAL: laying comfortably in bed, in no acute distress HEENT: NC, AT, moist mucous membranes, tracheostomy present with collar CARDIOVASCULAR: RRR, normal S1 and S2 RESPIRATORY: CTAB, no wheezing, rhonchi, or rales ABDOMINAL: Soft, nontender, nondistended, obese EXTREMITIES: bilateral lower extremity pitting edema ASSESSMENT/PLAN: 50 year old male with multiple comorbidities including ESRD on hemodialysis, currently ALC status pending placement to senior care facility 1. ESRD on hemodialysis TThS. Last HD session on Friday 06/22 with 2000mL liter removed. He is due for HD again tomorrow Monday 06/25. Repeat labs will be drawn at that time. Thank you for the consultation on this patient, we will continue to follow along. VS,Fishbone, I+O VS, Fishbone, I+O Vital Signs Date Time Temp Pulse Resp B/P (MAP) Pulse Ox O2 Delivery O2 Flow Rate FiO2 06/24/20 09:00 5.0 28 06/24/20 08:45 16 06/24/20 06:00 97.5 66 169/69 (102) 95 Room Air I&O- Last 24 Hours up to 6 AM 06/24/20 06:00 Intake Total 760 ml Output Total 0 ml Balance 760 ml GME ATTESTATION GME ATTESTATION My faculty preceptor for this patient encounter was physically present during the encounter and was fully available. All aspects of the patient interview, examination, medical decision making process, and medical care plan development were reviewed and approved by the faculty preceptor. The faculty preceptor is aware and concurs with the plan as stated in the body of this note and will attest to such by his/her cosignature. ATTENDING NOTE ESRD on HD Hypotension Chronically bedridden Chronic Respiratory failure, Tracheostomy status. cont HD TTS Schedule. UF goal ~2L due to decreased oral intake now a days. GAMALIEL BRAVO D.O. Jun 24, 2020 16:26 FENG GIRALDO MD Jun 24, 2020 21:39
[2020-06-24] MEDS: PRAMIPEXOLE (MIRAPEX) 0.125 MG TAB PO SCH (20:49)
[2020-06-25] MEDS: IPRATROPIUM 0.5MG/ALBUTEROL 2.5MG INH SOL UD 3ML (DUONEB) NEB SCH ×3 (01:00→20:23)
[2020-06-25] MEDS: AMIODARONE 200 MG TAB (PACERONE) PO SCH (05:59)
[2020-06-25] MEDS: PANTOPRAZOLE 40MG TAB (PROTONIX) PO SCH (05:59)
[2020-06-25] MEDS: BISACODYL 5 MG TAB PO SCH (05:59)
[2020-06-25] MEDS: SERTRALINE 100 MG TAB PO SCH (05:59)
[2020-06-25 06:00] VITALS: BP 144/63
[2020-06-25] MEDS: levETIRAcetam 250MG TABLET (KEPPRA) PO SCH (06:00)
[2020-06-25 06:10] LABS: BASO # 0.1 10^3/uL (0.0-0.2); BASO % 0.8 % (0.0-1.0); EOS # 0.5 10^3/uL (0.0-0.5); EOS % 7.5 % (0.0-3.0); HEMATOCRIT 41.1 % (42.0-52.0); HEMOGLOBIN 12.5 g/dl (13.5-17.5); LYMPH # 2.2 10^3/uL (1.5-5.0); LYMPH % 29.7 % (24.0-44.0); MEAN CORPUSCULAR HEMOGLOBIN 29.5 pg (27.0-33.0); MEAN CORPUSCULAR HGB CONC 30.4 g/dl (32.0-36.5); MEAN CORPUSCULAR VOLUME 96.9 fl (80.0-96.0); MONO # 0.5 10^3/uL (0.0-0.8); MONO % 7.3 % (0.0-5.0); NEUTROPHILS # 3.9 10^3/uL (1.5-8.5); PLATELET COUNT, AUTOMATED 184 10^3/uL (150-450); RED BLOOD COUNT 4.24 10^6/uL (4.30-6.10); WHITE BLOOD COUNT 7.2 10^3/uL (4.0-10.0)
[2020-06-25 06:32] LABS: ALBUMIN 2.6 GM/DL (3.2-5.2); CALCIUM LEVEL 9.6 MG/DL (8.5-10.1); GLOMERULAR FILTRATION RATE 10.7 (>60); PHOSPHORUS LEVEL 3.9 MG/DL (2.5-4.9); POTASSIUM SERUM 4.1 MEQ/L (3.5-5.1)
[2020-06-25] MEDS: (RENVELA) SEVELAMER **CARBONate** 800 MG TAB PO SCH ×3 (08:00→17:17)
[2020-06-25] MEDS: oxyCODONE 5MG TAB PO PRN ×2 (08:21→21:00)
[2020-06-25] MEDS: ALPRAZolam 0.25 MG TAB PO PRN ×2 (08:22→20:59)
[2020-06-25] MEDS: LIDOCAINE 5% (LIDODERM) PATCH TD SCH (09:00)
--- NOTE | 2020-06-25 13:18 | IPNPDOC ---
Text Note Date of Service The patient was seen on 06/25/20. NOTE SUBJECTIVE: Patient was seen and examined this morning during hemodialysis session. He states he is feeling well, no new issues. OBJECTIVE: PHYSICAL EXAMINATION: VITAL SIGNS: Please see below. GENERAL: laying comfortably in bed, in no acute distress HEENT: NC, AT, moist mucous membranes, tracheostomy present with collar CARDIOVASCULAR: RRR, normal S1 and S2 RESPIRATORY: CTAB, no wheezing, rhonchi, or rales ABDOMINAL: Soft, nontender, nondistended, obese EXTREMITIES: bilateral lower extremity pitting edema ASSESSMENT/PLAN: 50 year old male with multiple comorbidities including ESRD on hemodialysis, currently ALC status pending placement to retirement facility 1. ESRD on hemodialysis TThS. HD session complete today. Cr up to 6.0 this morning, electrolytes stable. 2. Hypotension. Continue midodrine on dialysis days. 3. Anemia. Stable, monitor and transfuse if indicated. 4. Chronically bedridden. Awaiting placement to retirement. 5. Chronic respiratory failure status post tracheostomy. Thank you for the consultation on this patient, we will continue to follow along. VS,Edubone, I+O VS, Fishbone, I+O Laboratory Tests 06/25/20 05:35 Vital Signs Date Time Temp Pulse Resp B/P (MAP) Pulse Ox O2 Delivery O2 Flow Rate FiO2 06/25/20 08:22 5.0 28 06/25/20 08:21 16 06/25/20 06:00 98.1 68 144/63 (90) 95 Room Air I&O- Last 24 Hours up to 6 AM 06/25/20 06:00 Intake Total 900 ml Output Total 0 ml Balance 900 ml GAMALIEL BRAVO D.O. Jun 25, 2020 13:18
[2020-06-25] MEDS: IPRATROPIUM 0.5MG/ALBUTEROL 2.5MG INH SOL UD 3ML (DUONEB) NEB PRN (16:13)
[2020-06-25] MEDS: PRAMIPEXOLE (MIRAPEX) 0.125 MG TAB PO SCH (21:01)
[2020-06-26] MEDS: IPRATROPIUM 0.5MG/ALBUTEROL 2.5MG INH SOL UD 3ML (DUONEB) NEB SCH ×4 (00:41→19:44)
[2020-06-26 06:00] VITALS: BP 116/97
[2020-06-26] MEDS: (RENVELA) SEVELAMER **CARBONate** 800 MG TAB PO SCH ×3 (08:00→18:00)
[2020-06-26] MEDS: levETIRAcetam 250MG TABLET (KEPPRA) PO SCH (08:12)
[2020-06-26] MEDS: SERTRALINE 100 MG TAB PO SCH (08:13)
[2020-06-26] MEDS: PANTOPRAZOLE 40MG TAB (PROTONIX) PO SCH (08:13)
[2020-06-26] MEDS: AMIODARONE 200 MG TAB (PACERONE) PO SCH (08:13)
[2020-06-26] MEDS: BISACODYL 5 MG TAB PO SCH (08:13)
[2020-06-26] MEDS: LIDOCAINE 5% (LIDODERM) PATCH TD SCH (09:00)
[2020-06-26] MEDS: oxyCODONE 5MG TAB PO PRN ×2 (14:02→21:26)
[2020-06-26] MEDS: PRAMIPEXOLE (MIRAPEX) 0.125 MG TAB PO SCH (21:26)
[2020-06-26] MEDS: ALPRAZolam 0.25 MG TAB PO PRN (21:27)
[2020-06-27] MEDS: IPRATROPIUM 0.5MG/ALBUTEROL 2.5MG INH SOL UD 3ML (DUONEB) NEB SCH ×4 (01:31→18:23)
[2020-06-27 06:00] VITALS: BP 107/53
[2020-06-27] MEDS: MIDODRINE 5 MG TAB PO SCH ×2 (06:40→17:24)
[2020-06-27] MEDS: SERTRALINE 100 MG TAB PO SCH (06:40)
[2020-06-27] MEDS: PANTOPRAZOLE 40MG TAB (PROTONIX) PO SCH (06:40)
[2020-06-27] MEDS: BISACODYL 5 MG TAB PO SCH (06:40)
[2020-06-27] MEDS: levETIRAcetam 250MG TABLET (KEPPRA) PO SCH (06:40)
[2020-06-27] MEDS: oxyCODONE 5MG TAB PO PRN ×3 (06:41→21:17)
[2020-06-27] MEDS: AMIODARONE 200 MG TAB (PACERONE) PO SCH (06:41)
[2020-06-27] MEDS: ALPRAZolam 0.25 MG TAB PO PRN ×2 (06:41→20:29)
[2020-06-27] MEDS: [UNRECOGNIZED DRUG - REMARK] XX SCH (06:41)
[2020-06-27] MEDS: LIDOCAINE 5% (LIDODERM) PATCH TD SCH (06:42)
[2020-06-27] MEDS: (RENVELA) SEVELAMER **CARBONate** 800 MG TAB PO SCH ×3 (08:00→17:24)
[2020-06-27] MEDS ORDERED: INFLUENZA QUADRIVALENT PF VACCINE 0.5ML SYRINGE IM ONE (09:00)
[2020-06-27 10:53] LABS: BASO # 0.1 10^3/uL (0.0-0.2); BASO % 0.7 % (0.0-1.0); EOS # 0.3 10^3/uL (0.0-0.5); EOS % 4.9 % (0.0-3.0); HEMATOCRIT 36.6 % (42.0-52.0); HEMOGLOBIN 11.1 g/dl (13.5-17.5); LYMPH # 2.5 10^3/uL (1.5-5.0); LYMPH % 35.4 % (24.0-44.0); MEAN CORPUSCULAR HEMOGLOBIN 29.3 pg (27.0-33.0); MEAN CORPUSCULAR HGB CONC 30.3 g/dl (32.0-36.5); MEAN CORPUSCULAR VOLUME 96.6 fl (80.0-96.0); MONO # 0.6 10^3/uL (0.0-0.8); MONO % 7.9 % (0.0-5.0); NEUTROPHILS # 3.5 10^3/uL (1.5-8.5); NEUTROPHILS % 50.4 % (36.0-66.0); PLATELET COUNT, AUTOMATED 181 10^3/uL (150-450); RED BLOOD COUNT 3.79 10^6/uL (4.30-6.10)
[2020-06-27 11:00] LABS: ALBUMIN 2.7 GM/DL (3.2-5.2); CALCIUM LEVEL 9.5 MG/DL (8.5-10.1); CREATININE FOR GFR 5.66 MG/DL (0.70-1.30); GLOMERULAR FILTRATION RATE 11.5 (>60); PHOSPHORUS LEVEL 4.1 MG/DL (2.5-4.9); POTASSIUM SERUM 4.3 MEQ/L (3.5-5.1)
[2020-06-27] MEDS: PRAMIPEXOLE (MIRAPEX) 0.125 MG TAB PO SCH (20:29)
[2020-06-27] MEDS: IPRATROPIUM 0.5MG/ALBUTEROL 2.5MG INH SOL UD 3ML (DUONEB) NEB PRN (21:23)
[2020-06-28] MEDS: oxyCODONE 5MG TAB PO PRN ×4 (03:19→21:32)
[2020-06-28] MEDS: IPRATROPIUM 0.5MG/ALBUTEROL 2.5MG INH SOL UD 3ML (DUONEB) NEB PRN (03:28)
[2020-06-28 06:00] VITALS: BP 120/82
[2020-06-28] MEDS: IPRATROPIUM 0.5MG/ALBUTEROL 2.5MG INH SOL UD 3ML (DUONEB) NEB SCH ×3 (07:33→19:43)
[2020-06-28] MEDS: [UNRECOGNIZED DRUG - REMARK] XX SCH (08:00)
[2020-06-28] MEDS: LIDOCAINE 5% (LIDODERM) PATCH TD SCH (09:00)
[2020-06-28] MEDS: ALPRAZolam 0.25 MG TAB PO PRN ×2 (09:22→22:49)
[2020-06-28] MEDS: SERTRALINE 100 MG TAB PO SCH (09:23)
[2020-06-28] MEDS: levETIRAcetam 250MG TABLET (KEPPRA) PO SCH (09:23)
[2020-06-28] MEDS: AMIODARONE 200 MG TAB (PACERONE) PO SCH (09:23)
[2020-06-28] MEDS: PANTOPRAZOLE 40MG TAB (PROTONIX) PO SCH (09:23)
[2020-06-28] MEDS: BISACODYL 5 MG TAB PO SCH (09:25)
[2020-06-28] MEDS: (RENVELA) SEVELAMER **CARBONate** 800 MG TAB PO SCH ×3 (09:25→17:14)
--- NOTE | 2020-06-28 14:34 | IPN ---
DATE: 06/27/2020 SUBJECTIVE: Patient was seen and examined at the bedside today morning during hemodialysis procedure. He is tolerating the hemodialysis procedure well. He denies any active complaints at this time. OBJECTIVE: Vital Signs: Temperature 98 degrees Fahrenheit, blood pressure 107/53, pulse 67, respiratory rate 20, saturating 96% on trach collar with 5 liters. Intake and output: There is no urine output recorded. Weight in the bed scale is not available. PHYSICAL EXAMINATION: GENERAL: Patient is awake, alert and oriented x3, morbidly obese, lying in bed getting hemodialysis done. HEAD AND NECK: Extraocular muscles intact. Neck is supple. He has a trach collar in the neck. CARDIOVASCULAR: S1, S2, regular rate. No edema of the bilateral lower extremities. He has a right upper arm AV fistula being used for dialysis. RESPIRATORY: Chest is clear to auscultation bilaterally. Bilateral equal air entry. No rales or rhonchi. ABDOMEN: Soft, obese. Positive bowel sounds. MUSCULOSKELETAL: He is chronically better, but has decreased mobility in the lower extremity. PUBLIC ADDRESS ANNOUNCER: No focal deficit. Power 5/5 in bilateral upper extremities. LABORATORY REVIEW: CBC showed WBC 7, hemoglobin 11.1, platelets 181,000. BMP showed sodium 137, potassium 4.3, chloride 101, bicarb 29, BUN 28, creatinine 5.6. Albumin 2.7. CURRENT INPATIENT MEDICATIONS: Patient's medications were all reviewed by myself. There is no significant change in the medications today as compared with yesterday. ASSESSMENT AND PLAN: 1. End-stage renal disease: Patient is being dialyzed today according to his Wednesday, , Wednesday schedule. Ultrafiltration goal is 2.5 liters as tolerated by his blood pressure. 2. Hypotension: Patient gets Midodrine before dialysis. Blood pressure is okay. 3. Chronic kidney disease/mineral bone disease: Continue current dose of Renvela 2.4 gm p.o. with meals. MTDD
[2020-06-28] MEDS: PRAMIPEXOLE (MIRAPEX) 0.125 MG TAB PO SCH (21:31)
[2020-06-29] MEDS: IPRATROPIUM 0.5MG/ALBUTEROL 2.5MG INH SOL UD 3ML (DUONEB) NEB SCH ×4 (00:46→19:59)
[2020-06-29 06:00] VITALS: BP 142/53
[2020-06-29] MEDS: PANTOPRAZOLE 40MG TAB (PROTONIX) PO SCH (06:32)
[2020-06-29] MEDS: BISACODYL 5 MG TAB PO SCH (06:32)
[2020-06-29] MEDS: MIDODRINE 5 MG TAB PO SCH ×3 (06:32→17:14)
[2020-06-29] MEDS: levETIRAcetam 250MG TABLET (KEPPRA) PO SCH (06:32)
[2020-06-29] MEDS: AMIODARONE 200 MG TAB (PACERONE) PO SCH (06:32)
[2020-06-29] MEDS: SERTRALINE 100 MG TAB PO SCH (06:32)
[2020-06-29] MEDS: oxyCODONE 5MG TAB PO PRN ×4 (06:33→21:43)
[2020-06-29] MEDS: (RENVELA) SEVELAMER **CARBONate** 800 MG TAB PO SCH ×3 (07:41→17:13)
[2020-06-29] MEDS: LIDOCAINE 5% (LIDODERM) PATCH TD SCH (07:43)
[2020-06-29] MEDS: ALPRAZolam 0.25 MG TAB PO PRN ×2 (07:48→21:41)
[2020-06-29] MEDS: [UNRECOGNIZED DRUG - REMARK] XX SCH (08:00)
[2020-06-29 08:56] LABS: BASO # 0.1 10^3/uL (0.0-0.2); BASO % 0.8 % (0.0-1.0); EOS # 0.4 10^3/uL (0.0-0.5); EOS % 6.8 % (0.0-3.0); HEMATOCRIT 40.5 % (42.0-52.0); HEMOGLOBIN 12.7 g/dl (13.5-17.5); LYMPH # 1.9 10^3/uL (1.5-5.0); LYMPH % 30.3 % (24.0-44.0); MEAN CORPUSCULAR HEMOGLOBIN 29.9 pg (27.0-33.0); MEAN CORPUSCULAR HGB CONC 31.4 g/dl (32.0-36.5); MEAN CORPUSCULAR VOLUME 95.3 fl (80.0-96.0); MONO # 0.7 10^3/uL (0.0-0.8); MONO % 10.6 % (0.0-5.0); NEUTROPHILS # 3.3 10^3/uL (1.5-8.5); NEUTROPHILS % 51.2 % (36.0-66.0); PLATELET COUNT, AUTOMATED 159 10^3/uL (150-450); RED BLOOD COUNT 4.25 10^6/uL (4.30-6.10); WHITE BLOOD COUNT 6.3 10^3/uL (4.0-10.0)
[2020-06-29 09:02] LABS: ALBUMIN 2.6 GM/DL (3.2-5.2); CALCIUM LEVEL 9.7 MG/DL (8.5-10.1); CREATININE FOR GFR 5.06 MG/DL (0.70-1.30); GLOMERULAR FILTRATION RATE 13.1 (>60); PHOSPHORUS LEVEL 3.7 MG/DL (2.5-4.9); POTASSIUM SERUM 4.4 MEQ/L (3.5-5.1)
[2020-06-29] MEDS: IPRATROPIUM 0.5MG/ALBUTEROL 2.5MG INH SOL UD 3ML (DUONEB) NEB PRN (17:37)
[2020-06-29] MEDS: PRAMIPEXOLE (MIRAPEX) 0.125 MG TAB PO SCH (22:12)
[2020-06-30] MEDS: IPRATROPIUM 0.5MG/ALBUTEROL 2.5MG INH SOL UD 3ML (DUONEB) NEB SCH ×4 (01:17→19:34)
[2020-06-30] MEDS: oxyCODONE 5MG TAB PO PRN ×3 (03:36→21:49)
[2020-06-30] MEDS: IPRATROPIUM 0.5MG/ALBUTEROL 2.5MG INH SOL UD 3ML (DUONEB) NEB PRN ×2 (03:56→10:25)
[2020-06-30 06:32] VITALS: BP 127/88
[2020-06-30 06:34] VITALS: BP 143/62
[2020-06-30] MEDS: [UNRECOGNIZED DRUG - REMARK] XX SCH (08:00)
[2020-06-30] MEDS: AMIODARONE 200 MG TAB (PACERONE) PO SCH (09:31)
[2020-06-30] MEDS: SERTRALINE 100 MG TAB PO SCH (09:31)
[2020-06-30] MEDS: (RENVELA) SEVELAMER **CARBONate** 800 MG TAB PO SCH ×3 (09:31→18:01)
[2020-06-30] MEDS: LIDOCAINE 5% (LIDODERM) PATCH TD SCH (09:32)
[2020-06-30] MEDS: levETIRAcetam 250MG TABLET (KEPPRA) PO SCH (09:32)
[2020-06-30] MEDS: PANTOPRAZOLE 40MG TAB (PROTONIX) PO SCH (09:32)
[2020-06-30] MEDS: BISACODYL 5 MG TAB PO SCH (09:32)
[2020-06-30] MEDS: ALPRAZolam 0.25 MG TAB PO PRN (21:47)
[2020-06-30] MEDS: PRAMIPEXOLE (MIRAPEX) 0.125 MG TAB PO SCH (21:47)
[2020-07-01] MEDS: IPRATROPIUM 0.5MG/ALBUTEROL 2.5MG INH SOL UD 3ML (DUONEB) NEB SCH ×4 (00:45→19:42)
[2020-07-01] MEDS: oxyCODONE 5MG TAB PO PRN ×4 (03:07→20:21)
[2020-07-01 06:00] VITALS: BP 124/56
[2020-07-01] MEDS: [UNRECOGNIZED DRUG - REMARK] XX SCH (08:00)
[2020-07-01] MEDS: SERTRALINE 100 MG TAB PO SCH (08:04)
[2020-07-01] MEDS: (RENVELA) SEVELAMER **CARBONate** 800 MG TAB PO SCH ×4 (08:04→18:00)
[2020-07-01] MEDS: levETIRAcetam 250MG TABLET (KEPPRA) PO SCH (08:04)
[2020-07-01] MEDS: ALPRAZolam 0.25 MG TAB PO PRN ×2 (08:04→20:20)
[2020-07-01] MEDS: PANTOPRAZOLE 40MG TAB (PROTONIX) PO SCH (08:04)
[2020-07-01] MEDS: BISACODYL 5 MG TAB PO SCH (08:05)
[2020-07-01] MEDS: LIDOCAINE 5% (LIDODERM) PATCH TD SCH (08:05)
[2020-07-01] MEDS: AMIODARONE 200 MG TAB (PACERONE) PO SCH (08:05)
[2020-07-01] MEDS: PRAMIPEXOLE (MIRAPEX) 0.125 MG TAB PO SCH (20:20)
[2020-07-02] VITALS (8 sets, daily range): BP systolic 114–141; BP diastolic 68–76
[2020-07-02] MEDS: IPRATROPIUM 0.5MG/ALBUTEROL 2.5MG INH SOL UD 3ML (DUONEB) NEB SCH ×4 (01:25→18:44)
[2020-07-02] MEDS: (RENVELA) SEVELAMER **CARBONate** 800 MG TAB PO SCH ×3 (06:42→17:34)
[2020-07-02] MEDS: PANTOPRAZOLE 40MG TAB (PROTONIX) PO SCH (06:42)
[2020-07-02] MEDS: SERTRALINE 100 MG TAB PO SCH (06:42)
[2020-07-02] MEDS: BISACODYL 5 MG TAB PO SCH (06:42)
[2020-07-02] MEDS: MIDODRINE 5 MG TAB PO SCH ×3 (06:43→17:35)
[2020-07-02] MEDS: AMIODARONE 200 MG TAB (PACERONE) PO SCH (06:43)
[2020-07-02] MEDS: levETIRAcetam 250MG TABLET (KEPPRA) PO SCH (06:43)
[2020-07-02] MEDS: ALPRAZolam 0.25 MG TAB PO PRN ×2 (06:43→20:25)
[2020-07-02] MEDS: oxyCODONE 5MG TAB PO PRN ×2 (06:44→20:26)
[2020-07-02] MEDS: LIDOCAINE 5% (LIDODERM) PATCH TD SCH (09:00)
[2020-07-02 09:03] LABS: HEMATOCRIT 41.5 % (42.0-52.0); HEMOGLOBIN 12.8 g/dl (13.5-17.5); MEAN CORPUSCULAR HEMOGLOBIN 29.4 pg (27.0-33.0); MEAN CORPUSCULAR HGB CONC 30.8 g/dl (32.0-36.5); MEAN CORPUSCULAR VOLUME 95.2 fl (80.0-96.0); PLATELET COUNT, AUTOMATED 185 10^3/uL (150-450); RED BLOOD COUNT 4.36 10^6/uL (4.30-6.10); WHITE BLOOD COUNT 10.1 10^3/uL (4.0-10.0)
[2020-07-02] MEDS: [UNRECOGNIZED DRUG - REMARK] XX SCH (09:15)
[2020-07-02 09:17] LABS: ALBUMIN 2.7 GM/DL (3.2-5.2); CALCIUM LEVEL 9.9 MG/DL (8.5-10.1); CREATININE FOR GFR 6.26 MG/DL (0.70-1.30); GLOMERULAR FILTRATION RATE 10.2 (>60); PHOSPHORUS LEVEL 3.8 MG/DL (2.5-4.9); POTASSIUM SERUM 4.5 MEQ/L (3.5-5.1)
[2020-07-02] MEDS: PRAMIPEXOLE (MIRAPEX) 0.125 MG TAB PO SCH (20:25)
[2020-07-03] MEDS: IPRATROPIUM 0.5MG/ALBUTEROL 2.5MG INH SOL UD 3ML (DUONEB) NEB SCH ×4 (00:36→20:00)
[2020-07-03] MEDS: oxyCODONE 5MG TAB PO PRN ×2 (05:47→21:59)
[2020-07-03 06:00] VITALS: BP 138/63
[2020-07-03] MEDS: IPRATROPIUM 0.5MG/ALBUTEROL 2.5MG INH SOL UD 3ML (DUONEB) NEB PRN ×2 (08:31→16:29)
[2020-07-03] MEDS: LIDOCAINE 5% (LIDODERM) PATCH TD SCH (09:00)
[2020-07-03] MEDS: levETIRAcetam 250MG TABLET (KEPPRA) PO SCH (09:29)
[2020-07-03] MEDS: (RENVELA) SEVELAMER **CARBONate** 800 MG TAB PO SCH ×3 (09:29→18:08)
[2020-07-03] MEDS: PANTOPRAZOLE 40MG TAB (PROTONIX) PO SCH (09:30)
[2020-07-03] MEDS: BISACODYL 5 MG TAB PO SCH (09:30)
[2020-07-03] MEDS: [UNRECOGNIZED DRUG - REMARK] XX SCH (09:30)
[2020-07-03] MEDS: SERTRALINE 100 MG TAB PO SCH (09:30)
[2020-07-03] MEDS: MIDODRINE 5 MG TAB PO SCH (09:30)
[2020-07-03] MEDS: AMIODARONE 200 MG TAB (PACERONE) PO SCH (09:30)
[2020-07-03] MEDS: PRAMIPEXOLE (MIRAPEX) 0.125 MG TAB PO SCH (21:58)
[2020-07-03] MEDS: ALPRAZolam 0.25 MG TAB PO PRN (21:58)
[2020-07-04] MEDS: IPRATROPIUM 0.5MG/ALBUTEROL 2.5MG INH SOL UD 3ML (DUONEB) NEB SCH ×4 (01:06→17:35)
[2020-07-04 06:00] VITALS: BP 111/49
[2020-07-04] MEDS: AMIODARONE 200 MG TAB (PACERONE) PO SCH (06:34)
[2020-07-04] MEDS: PANTOPRAZOLE 40MG TAB (PROTONIX) PO SCH (06:34)
[2020-07-04] MEDS: levETIRAcetam 250MG TABLET (KEPPRA) PO SCH (06:34)
[2020-07-04] MEDS: BISACODYL 5 MG TAB PO SCH (06:35)
[2020-07-04] MEDS: SERTRALINE 100 MG TAB PO SCH (06:35)
[2020-07-04] MEDS: (RENVELA) SEVELAMER **CARBONate** 800 MG TAB PO SCH ×3 (06:36→18:00)
[2020-07-04] MEDS: LIDOCAINE 5% (LIDODERM) PATCH TD SCH (06:36)
[2020-07-04] MEDS: oxyCODONE 5MG TAB PO PRN ×3 (06:39→22:57)
[2020-07-04 08:00] VITALS: BP 136/74
[2020-07-04] MEDS: [UNRECOGNIZED DRUG - REMARK] XX SCH (08:00)
--- NOTE | 2020-07-04 12:18 | IPN ---
DATE: 07/02/2020 SUBJECTIVE: Mr. Richard is seen this morning on his bedside. He is being dialyzed this morning. He remains with trach collar and denies any new issues. PHYSICAL EXAMINATION: Temperature 97.2 degrees Fahrenheit, heart rate 55 per minute, respiratory rate 16 per minute, blood pressure 114/70 mmHg, and oxygen saturation 96% on room air. Head is atraumatic. Neck is supple, JVD difficult to be assessed. Tracheostomy is in place. Heart sounds are regular and distant. Lungs clear to auscultation. Abdomen is obese, soft and nontender, bowel sounds are normal. extremities without any cyanosis or clubbing. LABORATORY DATA: He had his labs drawn by dialysis; WBC 10.1, hemoglobin 12.8, hematocrit 41.5. Sodium 137, potassium 4.5, CO2 26, BUN 36, creatinine 6.26. PROBLEMS: 1. End-stage renal disease: Patient is being dialyzed today and he is tolerating his dialysis treatment very well. Blood pressure was slightly low earlier and we are not removing more than 1.5 liters fluid today. 2. Respiratory failure mostly related to obesity associated hypoventilation, obstructive sleep apnea and COPD: He has tracheostomy for a number of years and recently had a tracheoplasty done due to granulation tissue in his trachea. He is currently stable. Volume status is well compensated. 3. Anemia: His anemia is stable and does not need any intervention. 4. Hypotension: Patient remains on chronic Midodrine therapy 10 mg t.i.d. Blood pressure is somewhat low. He is not gaining much weight between dialysis treatments, which is probably contributing to low blood pressure. MTDD
[2020-07-04 14:08] VITALS: BP 172/67
[2020-07-04 18:42] VITALS: BP 110/43
[2020-07-04] MEDS: MIDODRINE 5 MG TAB PO SCH (18:53)
[2020-07-04] MEDS: IPRATROPIUM 0.5MG/ALBUTEROL 2.5MG INH SOL UD 3ML (DUONEB) NEB PRN (20:08)
[2020-07-04] MEDS: PRAMIPEXOLE (MIRAPEX) 0.125 MG TAB PO SCH (20:39)
[2020-07-04] MEDS: ALPRAZolam 0.25 MG TAB PO PRN (22:57)
[2020-07-05] MEDS: IPRATROPIUM 0.5MG/ALBUTEROL 2.5MG INH SOL UD 3ML (DUONEB) NEB SCH ×4 (02:06→21:00)
[2020-07-05 06:00] VITALS: BP 161/65
[2020-07-05] MEDS: [UNRECOGNIZED DRUG - REMARK] XX SCH (08:00)
[2020-07-05] MEDS: PANTOPRAZOLE 40MG TAB (PROTONIX) PO SCH (08:16)
[2020-07-05] MEDS: AMIODARONE 200 MG TAB (PACERONE) PO SCH (08:17)
[2020-07-05] MEDS: ALPRAZolam 0.25 MG TAB PO PRN ×2 (08:17→20:49)
[2020-07-05] MEDS: SERTRALINE 100 MG TAB PO SCH (08:17)
[2020-07-05] MEDS: levETIRAcetam 250MG TABLET (KEPPRA) PO SCH (08:17)
[2020-07-05] MEDS: (RENVELA) SEVELAMER **CARBONate** 800 MG TAB PO SCH ×3 (08:17→17:17)
[2020-07-05] MEDS: LIDOCAINE 5% (LIDODERM) PATCH TD SCH (08:18)
[2020-07-05] MEDS: BISACODYL 5 MG TAB PO SCH (08:18)
[2020-07-05] MEDS: oxyCODONE 5MG TAB PO PRN ×3 (08:18→20:48)
[2020-07-05 14:00] VITALS: BP 169/70
[2020-07-05] MEDS: IPRATROPIUM 0.5MG/ALBUTEROL 2.5MG INH SOL UD 3ML (DUONEB) NEB PRN (17:28)
[2020-07-05] MEDS: PRAMIPEXOLE (MIRAPEX) 0.125 MG TAB PO SCH (20:47)
[2020-07-06] MEDS: oxyCODONE 5MG TAB PO PRN ×4 (01:32→21:59)
[2020-07-06] MEDS: IPRATROPIUM 0.5MG/ALBUTEROL 2.5MG INH SOL UD 3ML (DUONEB) NEB SCH ×4 (01:51→20:08)
[2020-07-06] MEDS: [UNRECOGNIZED DRUG - REMARK] XX SCH (05:59)
[2020-07-06 06:00] VITALS: BP 113/68
[2020-07-06] MEDS: SERTRALINE 100 MG TAB PO SCH (06:11)
[2020-07-06] MEDS: AMIODARONE 200 MG TAB (PACERONE) PO SCH (06:12)
[2020-07-06] MEDS: PANTOPRAZOLE 40MG TAB (PROTONIX) PO SCH (06:12)
[2020-07-06] MEDS: LIDOCAINE 5% (LIDODERM) PATCH TD SCH (06:13)
[2020-07-06] MEDS: levETIRAcetam 250MG TABLET (KEPPRA) PO SCH (06:13)
[2020-07-06] MEDS: BISACODYL 5 MG TAB PO SCH (06:13)
[2020-07-06] MEDS: ALPRAZolam 0.25 MG TAB PO PRN ×2 (07:55→21:55)
[2020-07-06] MEDS: (RENVELA) SEVELAMER **CARBONate** 800 MG TAB PO SCH ×3 (08:00→18:43)
[2020-07-06 10:07] LABS: BASO # 0.1 10^3/uL (0.0-0.2); BASO % 0.7 % (0.0-1.0); EOS # 0.5 10^3/uL (0.0-0.5); HEMATOCRIT 40.5 % (42.0-52.0); HEMOGLOBIN 12.5 g/dl (13.5-17.5); LYMPH # 2.2 10^3/uL (1.5-5.0); LYMPH % 29.3 % (24.0-44.0); MEAN CORPUSCULAR HEMOGLOBIN 28.9 pg (27.0-33.0); MEAN CORPUSCULAR HGB CONC 30.9 g/dl (32.0-36.5); MEAN CORPUSCULAR VOLUME 93.8 fl (80.0-96.0); MONO # 0.6 10^3/uL (0.0-0.8); MONO % 7.5 % (0.0-5.0); NEUTROPHILS # 4.1 10^3/uL (1.5-8.5); NEUTROPHILS % 55.2 % (36.0-66.0); PLATELET COUNT, AUTOMATED 174 10^3/uL (150-450); RED BLOOD COUNT 4.32 10^6/uL (4.30-6.10); WHITE BLOOD COUNT 7.4 10^3/uL (4.0-10.0)
[2020-07-06 10:58] LABS: ALBUMIN 2.5 GM/DL (3.2-5.2); CALCIUM LEVEL 10.3 MG/DL (8.5-10.1); CREATININE FOR GFR 5.21 MG/DL (0.70-1.30); GLOMERULAR FILTRATION RATE 12.6 (>60); PHOSPHORUS LEVEL 4.1 MG/DL (2.5-4.9); POTASSIUM SERUM 4.4 MEQ/L (3.5-5.1)
[2020-07-06] MEDS: PRAMIPEXOLE (MIRAPEX) 0.125 MG TAB PO SCH (21:54)
[2020-07-07] MEDS: IPRATROPIUM 0.5MG/ALBUTEROL 2.5MG INH SOL UD 3ML (DUONEB) NEB SCH ×4 (00:21→19:37)
[2020-07-07] MEDS: oxyCODONE 5MG TAB PO PRN ×4 (02:07→21:38)
[2020-07-07 06:00] VITALS: BP 131/69
[2020-07-07] MEDS: [UNRECOGNIZED DRUG - REMARK] XX SCH (08:00)
[2020-07-07] MEDS: LIDOCAINE 5% (LIDODERM) PATCH TD SCH (09:00)
[2020-07-07] MEDS: (RENVELA) SEVELAMER **CARBONate** 800 MG TAB PO SCH ×4 (09:17→18:43)
[2020-07-07] MEDS: AMIODARONE 200 MG TAB (PACERONE) PO SCH (09:18)
[2020-07-07] MEDS: PANTOPRAZOLE 40MG TAB (PROTONIX) PO SCH (09:18)
[2020-07-07] MEDS: BISACODYL 5 MG TAB PO SCH (09:18)
[2020-07-07] MEDS: levETIRAcetam 250MG TABLET (KEPPRA) PO SCH (09:18)
[2020-07-07] MEDS: SERTRALINE 100 MG TAB PO SCH (09:18)
--- NOTE | 2020-07-07 10:41 | IPN ---
DATE: 07/04/2020 SUBJECTIVE: Mr. Richard was seen this morning on his bedside during hemodialysis. He is feeling well and denies any complaints. He has been eating much less than his prior baseline and continues to gradually lose weight. He is not gaining much weight between dialysis treatments. PHYSICAL EXAMINATION: Temperature 97.1 degrees Fahrenheit, heart rate 60 per minute, respiratory rate 18 per minute, blood pressure 111/49 mmHg and oxygen saturation 95%. Head is atraumatic. Neck is supple and JVD is difficult to be assessed. Trach collar is in place. Heart sounds are regular. Lungs clear to auscultation. Abdomen is obese, soft and nontender. Bowel sounds are normal. Extremities without any cyanosis or clubbing. Neurologically, he is at his baseline mentation. LABORATORY DATA: Patient did not have any new labs done today. His labs from 07/02/2020 have already been reviewed and they were appropriate. PROBLEMS: 1. End-stage renal disease: Patient remains on maintenance hemodialysis three times a week. He is being dialyzed today and tolerating his dialysis well. Next dialysis will be scheduled for Wednesday. 2. Anemia: Anemia has not been an issue and he does not require any Aranesp at this point. 3. Respiratory failure; status post tracheostomy: Patient remains on trach collar. He is oxygenating very well. His volume status has been well compensated. 4. Hypotension: Chronic hypotension is controlled with Midodrine 10 mg t.i.d. and will continue with the same. MTDD
--- NOTE | 2020-07-07 10:43 | IPN ---
DATE: 07/06/2020 SUBJECTIVE: Patient was seen and examined at bedside today morning during hemodialysis. He is tolerating the hemodialysis procedure well. He denies any active complaints at this time. OBJECTIVE: Vital Signs: Temperature 96.5 degrees Fahrenheit, blood pressure 113/68, pulse 61, respiratory rate 18, saturating 95% on room air. Intake and output: No urine output recorded. Weight in the bed scale is not available. PHYSICAL EXAMINATION: GENERAL: Patient is morbidly obese, awake and alert, lying in bed getting hemodialysis done. HEAD AND NECK: Extraocular muscles intact. Pupils equally round and reactive to light. Mucous membranes are moist. Neck is supple. He has a trach collar. CARDIOVASCULAR: S1, S2, regular rate. No edema of the bilateral lower extremities. RESPIRATORY: Chest is clear to auscultation bilaterally. Bilateral equal air entry. No rales or rhonchi. ABDOMEN: Soft. Positive bowel sounds. Obese. Nontender. MUSCULOSKELETAL: No clubbing or cyanosis. Decreased range of movement of lower extremities because he is chronically bedridden. FREELANCE INTERPRETER/TRANSLATOR: Awake and alert, able to communicate but otherwise he is chronically bedridden. LABORATORY REVIEW: CBC showed WBC 7.4, hemoglobin 12.5, platelets 174,000. BMP showed sodium 137, potassium 4.4, chloride 104, bicarb 29, BUN 32, creatinine 5.2. CURRENT INPATIENT MEDICATIONS: Patient's medications were all reviewed by myself. There is no change in the medications today as compared with yesterday. ASSESSMENT AND PLAN: 1. End-stage renal disease: Patient is being dialyzed today according to his regular schedule. Ultrafiltration goal is 2 liters as tolerated by his blood pressure. 2. Chronic hypotension: Continue current dose of Midodrine. Blood pressures are optimal. 3. Chronic respiratory failure secondary to morbid obesity, hypoventilation, COPD, status post trach collar and granulation tissue in the trachea: Patient is stable on the trach collar at this time. 4. Chronic kidney disease/mineral bone disease: Continue current dose of Renvela 2.4 grams p.o. with meals. Phosphorus levels are within the acceptable range. MTDD
[2020-07-07] MEDS: ALPRAZolam 0.25 MG TAB PO PRN ×2 (13:26→21:36)
[2020-07-07] MEDS: IPRATROPIUM 0.5MG/ALBUTEROL 2.5MG INH SOL UD 3ML (DUONEB) NEB PRN (15:43)
[2020-07-07] MEDS: PRAMIPEXOLE (MIRAPEX) 0.125 MG TAB PO SCH (21:36)
[2020-07-08] MEDS: IPRATROPIUM 0.5MG/ALBUTEROL 2.5MG INH SOL UD 3ML (DUONEB) NEB SCH ×4 (01:37→19:27)
[2020-07-08] MEDS: ALPRAZolam 0.25 MG TAB PO PRN ×2 (03:44→21:02)
[2020-07-08] MEDS: oxyCODONE 5MG TAB PO PRN ×5 (03:45→22:18)
[2020-07-08] MEDS: IPRATROPIUM 0.5MG/ALBUTEROL 2.5MG INH SOL UD 3ML (DUONEB) NEB PRN ×2 (05:25→17:39)
[2020-07-08 06:00] VITALS: BP 140/77
[2020-07-08] MEDS: [UNRECOGNIZED DRUG - REMARK] XX SCH (08:00)
[2020-07-08 08:30] VITALS: BP 140/70
[2020-07-08] MEDS: LIDOCAINE 5% (LIDODERM) PATCH TD SCH ×2 (09:00→10:06)
[2020-07-08] MEDS: BISACODYL 5 MG TAB PO SCH (09:00)
[2020-07-08] MEDS: (RENVELA) SEVELAMER **CARBONate** 800 MG TAB PO SCH ×3 (09:32→17:50)
[2020-07-08] MEDS: AMIODARONE 200 MG TAB (PACERONE) PO SCH (10:06)
[2020-07-08] MEDS: PANTOPRAZOLE 40MG TAB (PROTONIX) PO SCH (10:07)
[2020-07-08] MEDS: levETIRAcetam 250MG TABLET (KEPPRA) PO SCH (10:07)
[2020-07-08] MEDS: SERTRALINE 100 MG TAB PO SCH (10:08)
[2020-07-08 12:06] VITALS: BP 146/72
[2020-07-08] MEDS: ONDANSETRON 4 MG TAB PO PRN (12:40)
[2020-07-08] MEDS: PRAMIPEXOLE (MIRAPEX) 0.125 MG TAB PO SCH (21:02)
[2020-07-09] MEDS: IPRATROPIUM 0.5MG/ALBUTEROL 2.5MG INH SOL UD 3ML (DUONEB) NEB SCH ×5 (00:03→23:54)
[2020-07-09] MEDS: oxyCODONE 5MG TAB PO PRN ×2 (02:25→20:58)
[2020-07-09] MEDS: ALPRAZolam 0.25 MG TAB PO PRN ×2 (03:18→20:57)
[2020-07-09] MEDS: BISACODYL 5 MG TAB PO SCH (05:48)
[2020-07-09] MEDS: LIDOCAINE 5% (LIDODERM) PATCH TD SCH (05:48)
[2020-07-09 06:00] VITALS: BP 113/72
[2020-07-09] MEDS: levETIRAcetam 250MG TABLET (KEPPRA) PO SCH (06:06)
[2020-07-09] MEDS: AMIODARONE 200 MG TAB (PACERONE) PO SCH (06:07)
[2020-07-09] MEDS: SERTRALINE 100 MG TAB PO SCH (06:07)
[2020-07-09] MEDS: PANTOPRAZOLE 40MG TAB (PROTONIX) PO SCH (06:07)
[2020-07-09] MEDS: (RENVELA) SEVELAMER **CARBONate** 800 MG TAB PO SCH ×3 (08:10→18:00)
[2020-07-09] MEDS: MIDODRINE 5 MG TAB PO SCH ×4 (08:11→18:05)
[2020-07-09 09:39] LABS: BASO # 0.1 10^3/uL (0.0-0.2); BASO % 0.8 % (0.0-1.0); EOS # 0.8 10^3/uL (0.0-0.5); EOS % 10.5 % (0.0-3.0); HEMATOCRIT 38.8 % (42.0-52.0); HEMOGLOBIN 11.9 g/dl (13.5-17.5); LYMPH # 2.1 10^3/uL (1.5-5.0); LYMPH % 27.3 % (24.0-44.0); MEAN CORPUSCULAR HGB CONC 30.7 g/dl (32.0-36.5); MEAN CORPUSCULAR VOLUME 94.6 fl (80.0-96.0); MONO # 0.6 10^3/uL (0.0-0.8); MONO % 7.3 % (0.0-5.0); NEUTROPHILS # 4.1 10^3/uL (1.5-8.5); NEUTROPHILS % 53.8 % (36.0-66.0); PLATELET COUNT, AUTOMATED 157 10^3/uL (150-450); WHITE BLOOD COUNT 7.5 10^3/uL (4.0-10.0)
[2020-07-09] MEDS: [UNRECOGNIZED DRUG - REMARK] XX SCH (10:05)
[2020-07-09 10:18] LABS: ALBUMIN 2.3 GM/DL (3.2-5.2); CALCIUM LEVEL 9.5 MG/DL (8.5-10.1); CREATININE FOR GFR 6.05 MG/DL (0.70-1.30); GLOMERULAR FILTRATION RATE 10.6 (>60); POTASSIUM SERUM 4.8 MEQ/L (3.5-5.1)
[2020-07-09] MEDS: IPRATROPIUM 0.5MG/ALBUTEROL 2.5MG INH SOL UD 3ML (DUONEB) NEB PRN (19:50)
[2020-07-09] MEDS: PRAMIPEXOLE (MIRAPEX) 0.125 MG TAB PO SCH (20:57)
[2020-07-10 06:00] VITALS: BP 127/72
[2020-07-10] MEDS: IPRATROPIUM 0.5MG/ALBUTEROL 2.5MG INH SOL UD 3ML (DUONEB) NEB SCH ×3 (07:24→19:26)
[2020-07-10] MEDS: [UNRECOGNIZED DRUG - REMARK] XX SCH (08:00)
[2020-07-10] MEDS: AMIODARONE 200 MG TAB (PACERONE) PO SCH (08:56)
[2020-07-10] MEDS: ALPRAZolam 0.25 MG TAB PO PRN ×2 (08:56→21:26)
[2020-07-10] MEDS: SERTRALINE 100 MG TAB PO SCH (08:56)
[2020-07-10] MEDS: (RENVELA) SEVELAMER **CARBONate** 800 MG TAB PO SCH ×3 (08:56→18:31)
[2020-07-10] MEDS: levETIRAcetam 250MG TABLET (KEPPRA) PO SCH (08:57)
[2020-07-10] MEDS: BISACODYL 5 MG TAB PO SCH (08:57)
[2020-07-10] MEDS: oxyCODONE 5MG TAB PO PRN ×2 (08:57→21:27)
[2020-07-10] MEDS: PANTOPRAZOLE 40MG TAB (PROTONIX) PO SCH (08:57)
[2020-07-10] MEDS: LIDOCAINE 5% (LIDODERM) PATCH TD SCH (09:00)
--- NOTE | 2020-07-10 13:29 | IPN ---
DATE: 07/09/2020 SUBJECTIVE: Patient was seen and examined at the bedside today morning during hemodialysis procedure. He is tolerating the hemodialysis procedure well. He denies any active complaints at this time. OBJECTIVE: Vital Signs: Temp 96.4 degrees Fahrenheit, blood pressure 113/72, pulse 59, respirations 18, saturating 97% on a trach collar. Intake and output: There is no urine output recorded. Weight in the bed scale is not available. PHYSICAL EXAMINATION: GENERAL: Patient is awake, alert, oriented x3, morbidly obese, lying in bed in no apparent distress. HEAD/NECK: Extraocular muscles intact. Pupils equally round and reactive to light. Neck supple. He has trach collar. CARDIOVASCULAR: S1, S2, regular rate. No edema of the bilateral lower extremities. RESPIRATORY: Chest is clear to auscultation bilaterally. Bilateral equal air entry. No rales or rhonchi. ABDOMEN: Obese, positive bowel sounds, nontender. No organomegaly. MUSCULOSKELETAL: No clubbing or cyanosis. Decreased range of movement of lower extremities because he is chronically bedridden. HOOK LOADER: No focal deficit. Awake. Able to communicate. Moves bilateral upper extremities. Lower extremities are weak because of bedridden status. LABORATORY REVIEW: CBC showed WBC 7.5, hemoglobin 11.9, platelets 157,000. BMP showed sodium 136, potassium 4.8, chloride 102, bicarb 27, BUN 40, creatinine 6. Phosphorus 5. Albumin 2.3. CURRENT INPATIENT MEDICATIONS: Patient's medications were all reviewed by myself. There is no significant change in the medications today as compared with yesterday. ASSESSMENT AND PLAN: 1. End-stage renal disease: Patient is being dialyzed according to his regular Wednesday, , Wednesday schedule. Ultrafiltration goal will be 2 liters as tolerated by his blood pressure. 2. Chronic hypotension: Blood pressure is optimal. He gets Midodrine on dialysis days. 3. Chronic kidney disease/mineral bone disease: Continue current dose of Renvela with meals. Phosphorus level is within the acceptable range. 4. Anemia and end-stage renal disease: Hemoglobin level is more than 11. No need of Aranesp administration at this time. MTDD
[2020-07-10] MEDS: PRAMIPEXOLE (MIRAPEX) 0.125 MG TAB PO SCH (21:25)
[2020-07-11] MEDS: IPRATROPIUM 0.5MG/ALBUTEROL 2.5MG INH SOL UD 3ML (DUONEB) NEB SCH ×4 (01:32→19:19)
[2020-07-11 06:00] VITALS: BP 116/54
[2020-07-11] MEDS: MIDODRINE 5 MG TAB PO SCH (07:01)
[2020-07-11] MEDS: oxyCODONE 5MG TAB PO PRN ×3 (07:07→20:59)
[2020-07-11] MEDS: BISACODYL 5 MG TAB PO SCH (07:07)
[2020-07-11] MEDS: PANTOPRAZOLE 40MG TAB (PROTONIX) PO SCH (07:07)
[2020-07-11] MEDS: ALPRAZolam 0.25 MG TAB PO PRN ×2 (07:07→20:59)
[2020-07-11] MEDS: SERTRALINE 100 MG TAB PO SCH (07:07)
[2020-07-11] MEDS: (RENVELA) SEVELAMER **CARBONate** 800 MG TAB PO SCH ×3 (07:07→17:32)
[2020-07-11] MEDS: AMIODARONE 200 MG TAB (PACERONE) PO SCH (07:08)
[2020-07-11] MEDS: levETIRAcetam 250MG TABLET (KEPPRA) PO SCH (07:08)
[2020-07-11] MEDS: [UNRECOGNIZED DRUG - REMARK] XX SCH (08:00)
[2020-07-11] MEDS: LIDOCAINE 5% (LIDODERM) PATCH TD SCH (08:37)
[2020-07-11] MEDS: IPRATROPIUM 0.5MG/ALBUTEROL 2.5MG INH SOL UD 3ML (DUONEB) NEB PRN (08:48)
[2020-07-11 10:27] LABS: BASO # 0.1 10^3/uL (0.0-0.2); BASO % 0.7 % (0.0-1.0); EOS # 0.7 10^3/uL (0.0-0.5); EOS % 9.6 % (0.0-3.0); HEMATOCRIT 33.8 % (42.0-52.0); HEMOGLOBIN 10.6 g/dl (13.5-17.5); LYMPH # 2.5 10^3/uL (1.5-5.0); LYMPH % 37.7 % (24.0-44.0); MEAN CORPUSCULAR HEMOGLOBIN 29.4 pg (27.0-33.0); MEAN CORPUSCULAR HGB CONC 31.4 g/dl (32.0-36.5); MEAN CORPUSCULAR VOLUME 93.9 fl (80.0-96.0); MONO # 0.5 10^3/uL (0.0-0.8); MONO % 7.3 % (0.0-5.0); NEUTROPHILS % 44.4 % (36.0-66.0); PLATELET COUNT, AUTOMATED 139 10^3/uL (150-450); WHITE BLOOD COUNT 6.7 10^3/uL (4.0-10.0)
[2020-07-11 11:12] LABS: ALBUMIN 2.4 GM/DL (3.2-5.2); CALCIUM LEVEL 7.8 MG/DL (8.5-10.1); CREATININE FOR GFR 5.33 MG/DL (0.70-1.30); GLOMERULAR FILTRATION RATE 12.3 (>60); PHOSPHORUS LEVEL 5.5 MG/DL (2.5-4.9); POTASSIUM SERUM 4.9 MEQ/L (3.5-5.1)
[2020-07-11] MEDS ORDERED: IRON SUCROSE 100MG 5ML VIAL (J1756 PER 1MG) IV SCH (11:30)
[2020-07-11] MEDS: SUCROFERRIC OXYHYDROXIDE 500MG CHEW TAB (VELPHORO) PO SCH ×2 (12:30→17:32)
[2020-07-11 14:29] VITALS: BP 116/51
[2020-07-11] MEDS: PRAMIPEXOLE (MIRAPEX) 0.125 MG TAB PO SCH (20:59)
[2020-07-12] MEDS: IPRATROPIUM 0.5MG/ALBUTEROL 2.5MG INH SOL UD 3ML (DUONEB) NEB SCH ×4 (01:33→20:04)
[2020-07-12 06:00] VITALS: BP 122/64
[2020-07-12] MEDS: [UNRECOGNIZED DRUG - REMARK] XX SCH (08:00)
[2020-07-12] MEDS: LIDOCAINE 5% (LIDODERM) PATCH TD SCH (09:00)
[2020-07-12] MEDS: SUCROFERRIC OXYHYDROXIDE 500MG CHEW TAB (VELPHORO) PO SCH ×3 (09:20→18:37)
[2020-07-12] MEDS: (RENVELA) SEVELAMER **CARBONate** 800 MG TAB PO SCH ×3 (09:20→18:37)
[2020-07-12] MEDS: levETIRAcetam 250MG TABLET (KEPPRA) PO SCH (09:21)
[2020-07-12] MEDS: BISACODYL 5 MG TAB PO SCH (09:21)
[2020-07-12] MEDS: PANTOPRAZOLE 40MG TAB (PROTONIX) PO SCH (09:21)
[2020-07-12] MEDS: SERTRALINE 100 MG TAB PO SCH (09:21)
[2020-07-12] MEDS: AMIODARONE 200 MG TAB (PACERONE) PO SCH (09:21)
[2020-07-12] MEDS: oxyCODONE 5MG TAB PO PRN ×3 (09:27→20:49)
[2020-07-12] MEDS: IPRATROPIUM 0.5MG/ALBUTEROL 2.5MG INH SOL UD 3ML (DUONEB) NEB PRN (10:47)
[2020-07-12] MEDS: ALPRAZolam 0.25 MG TAB PO PRN (13:28)
[2020-07-12] MEDS: PRAMIPEXOLE (MIRAPEX) 0.125 MG TAB PO SCH (20:45)
[2020-07-13] MEDS: IPRATROPIUM 0.5MG/ALBUTEROL 2.5MG INH SOL UD 3ML (DUONEB) NEB PRN ×2 (00:17→13:53)
[2020-07-13] MEDS: IPRATROPIUM 0.5MG/ALBUTEROL 2.5MG INH SOL UD 3ML (DUONEB) NEB SCH ×4 (02:50→19:33)
[2020-07-13 06:00] VITALS: BP 118/52
[2020-07-13] MEDS: SUCROFERRIC OXYHYDROXIDE 500MG CHEW TAB (VELPHORO) PO SCH ×4 (06:39→18:12)
[2020-07-13] MEDS: (RENVELA) SEVELAMER **CARBONate** 800 MG TAB PO SCH ×3 (06:41→18:12)
[2020-07-13] MEDS: AMIODARONE 200 MG TAB (PACERONE) PO SCH (06:41)
[2020-07-13] MEDS: BISACODYL 5 MG TAB PO SCH (06:41)
[2020-07-13] MEDS: levETIRAcetam 250MG TABLET (KEPPRA) PO SCH (06:42)
[2020-07-13] MEDS: SERTRALINE 100 MG TAB PO SCH (06:42)
[2020-07-13] MEDS: PANTOPRAZOLE 40MG TAB (PROTONIX) PO SCH (06:42)
[2020-07-13] MEDS: MIDODRINE 5 MG TAB PO SCH (06:42)
[2020-07-13] MEDS: LIDOCAINE 5% (LIDODERM) PATCH TD SCH (06:43)
[2020-07-13] MEDS: [UNRECOGNIZED DRUG - REMARK] XX SCH (06:49)
[2020-07-13] MEDS: ALPRAZolam 0.25 MG TAB PO PRN ×2 (08:36→20:28)
[2020-07-13] MEDS: oxyCODONE 5MG TAB PO PRN ×3 (08:37→20:29)
[2020-07-13] MEDS: PRAMIPEXOLE (MIRAPEX) 0.125 MG TAB PO SCH (20:28)
[2020-07-14] MEDS: IPRATROPIUM 0.5MG/ALBUTEROL 2.5MG INH SOL UD 3ML (DUONEB) NEB SCH ×4 (00:41→19:19)
[2020-07-14 06:00] VITALS: BP 122/69
[2020-07-14] MEDS: [UNRECOGNIZED DRUG - REMARK] XX SCH (07:56)
[2020-07-14] MEDS: (RENVELA) SEVELAMER **CARBONate** 800 MG TAB PO SCH ×3 (08:31→18:24)
[2020-07-14] MEDS: levETIRAcetam 250MG TABLET (KEPPRA) PO SCH (08:31)
[2020-07-14] MEDS: PANTOPRAZOLE 40MG TAB (PROTONIX) PO SCH (08:31)
[2020-07-14] MEDS: oxyCODONE 5MG TAB PO PRN ×3 (08:32→21:18)
[2020-07-14] MEDS: BISACODYL 5 MG TAB PO SCH (08:32)
[2020-07-14] MEDS: SERTRALINE 100 MG TAB PO SCH (08:32)
[2020-07-14] MEDS: AMIODARONE 200 MG TAB (PACERONE) PO SCH (08:32)
[2020-07-14] MEDS: LIDOCAINE 5% (LIDODERM) PATCH TD SCH (08:34)
[2020-07-14] MEDS: SUCROFERRIC OXYHYDROXIDE 500MG CHEW TAB (VELPHORO) PO SCH ×3 (08:34→18:24)
--- NOTE | 2020-07-14 13:40 | IPNPDOC ---
Text Note Date of Service The patient was seen on 07/14/20. NOTE Subjective: No any acute events overnight. Patient denied fever, chills, nausea, diarrhea PHYSICAL EXAMINATION: GENERAL: Morbidly obese male HEAD/NECK: PERRLA, EOMI CARDIOVASCULAR: S1, S2 RESPIRATORY: CTA ABDOMEN: Obese, positive bowel sounds, nontender. No organomegaly. MUSCULOSKELETAL: No clubbing or cyanosis. Decreased range of movement of lower extremities because he is chronically bedridden. BRICK PITCHER: No focal deficit. Awake. Able to communicate. Moves bilateral upper extremities. Lower extremities are weak because of bedridden status. Assessment and plan: 50 year old male with multiple comorbidities including ESRD on hemodialysis, c urrently ALC status pending placement to detention facility ESRD on hemodialysis Patient is being dialyzed according to his regular Wednesday, , Wednesday schedule Hypotension. Continue midodrine on dialysis days. Anemia. Stable, monitor and transfuse if indicated. Chronically bedridden. Awaiting placement to detention. Chronic respiratory failure status post tracheostomy. VS,Fishbone, I+O VS, Fishbone, I+O Vital Signs Date Time Temp Pulse Resp B/P (MAP) Pulse Ox O2 Delivery O2 Flow Rate FiO2 07/14/20 09:02 16 07/14/20 06:00 97.4 69 122/69 (86) 96 07/13/20 21:00 5.0 28 07/13/20 20:59 Trach Collar I&O- Last 24 Hours up to 6 AM 07/14/20 06:00 Intake Total 1590 ml Output Total 2000 ml Balance -410 ml SANTY DUGAN DO Jul 14, 2020 13:40
[2020-07-14] MEDS: IPRATROPIUM 0.5MG/ALBUTEROL 2.5MG INH SOL UD 3ML (DUONEB) NEB PRN (16:51)
[2020-07-14] MEDS: PRAMIPEXOLE (MIRAPEX) 0.125 MG TAB PO SCH (21:18)
[2020-07-14] MEDS: ALPRAZolam 0.25 MG TAB PO PRN (21:18)
[2020-07-15] MEDS: IPRATROPIUM 0.5MG/ALBUTEROL 2.5MG INH SOL UD 3ML (DUONEB) NEB SCH ×4 (01:06→19:38)
[2020-07-15] MEDS: oxyCODONE 5MG TAB PO PRN ×4 (01:07→22:05)
[2020-07-15] MEDS: IPRATROPIUM 0.5MG/ALBUTEROL 2.5MG INH SOL UD 3ML (DUONEB) NEB PRN ×3 (06:13→17:13)
[2020-07-15] MEDS: ALPRAZolam 0.25 MG TAB PO PRN ×2 (06:37→22:04)
[2020-07-15] MEDS: SUCROFERRIC OXYHYDROXIDE 500MG CHEW TAB (VELPHORO) PO SCH ×3 (08:00→17:47)
[2020-07-15] MEDS: (RENVELA) SEVELAMER **CARBONate** 800 MG TAB PO SCH ×3 (08:00→17:47)
[2020-07-15] MEDS: [UNRECOGNIZED DRUG - REMARK] XX SCH (08:00)
[2020-07-15] MEDS: levETIRAcetam 250MG TABLET (KEPPRA) PO SCH (08:52)
[2020-07-15] MEDS: SERTRALINE 100 MG TAB PO SCH (08:52)
[2020-07-15] MEDS: PANTOPRAZOLE 40MG TAB (PROTONIX) PO SCH (08:52)
[2020-07-15] MEDS: AMIODARONE 200 MG TAB (PACERONE) PO SCH (08:53)
[2020-07-15] MEDS: BISACODYL 5 MG TAB PO SCH (08:53)
[2020-07-15] MEDS: LIDOCAINE 5% (LIDODERM) PATCH TD SCH (09:00)
[2020-07-15 10:22] VITALS: BP 122/69
[2020-07-15] MEDS: PRAMIPEXOLE (MIRAPEX) 0.125 MG TAB PO SCH (22:04)
[2020-07-16] MEDS: IPRATROPIUM 0.5MG/ALBUTEROL 2.5MG INH SOL UD 3ML (DUONEB) NEB SCH ×4 (01:00→20:53)
[2020-07-16] MEDS: IPRATROPIUM 0.5MG/ALBUTEROL 2.5MG INH SOL UD 3ML (DUONEB) NEB PRN ×2 (04:41→08:41)
[2020-07-16 06:00] VITALS: BP 146/68
[2020-07-16] MEDS: PANTOPRAZOLE 40MG TAB (PROTONIX) PO SCH (06:30)
[2020-07-16] MEDS: SERTRALINE 100 MG TAB PO SCH (06:30)
[2020-07-16] MEDS: AMIODARONE 200 MG TAB (PACERONE) PO SCH (06:30)
[2020-07-16] MEDS: BISACODYL 5 MG TAB PO SCH (06:30)
[2020-07-16] MEDS: levETIRAcetam 250MG TABLET (KEPPRA) PO SCH (06:30)
[2020-07-16] MEDS: (RENVELA) SEVELAMER **CARBONate** 800 MG TAB PO SCH ×3 (08:00→18:19)
[2020-07-16] MEDS: SUCROFERRIC OXYHYDROXIDE 500MG CHEW TAB (VELPHORO) PO SCH ×3 (08:00→18:19)
[2020-07-16] MEDS: LIDOCAINE 5% (LIDODERM) PATCH TD SCH (09:00)
[2020-07-16 09:47] LABS: HEMATOCRIT 37.5 % (42.0-52.0); HEMOGLOBIN 11.6 g/dl (13.5-17.5); MEAN CORPUSCULAR HEMOGLOBIN 28.9 pg (27.0-33.0); MEAN CORPUSCULAR HGB CONC 30.9 g/dl (32.0-36.5); MEAN CORPUSCULAR VOLUME 93.3 fl (80.0-96.0); PLATELET COUNT, AUTOMATED 154 10^3/uL (150-450); RED BLOOD COUNT 4.02 10^6/uL (4.30-6.10); WHITE BLOOD COUNT 7.7 10^3/uL (4.0-10.0)
[2020-07-16 10:03] LABS: ALBUMIN 2.3 GM/DL (3.2-5.2); CALCIUM LEVEL 9.6 MG/DL (8.5-10.1); CREATININE FOR GFR 5.64 MG/DL (0.70-1.30); GLOMERULAR FILTRATION RATE 11.5 (>60); PHOSPHORUS LEVEL 5.2 MG/DL (2.5-4.9); POTASSIUM SERUM 4.9 MEQ/L (3.5-5.1)
[2020-07-16] MEDS: [UNRECOGNIZED DRUG - REMARK] XX SCH (15:30)
[2020-07-16] MEDS: PRAMIPEXOLE (MIRAPEX) 0.125 MG TAB PO SCH (21:33)
[2020-07-16] MEDS: oxyCODONE 5MG TAB PO PRN (21:34)
[2020-07-16] MEDS: ALPRAZolam 0.25 MG TAB PO PRN (21:35)
[2020-07-16 21:48] VITALS: O2SAT 97
[2020-07-17] MEDS: IPRATROPIUM 0.5MG/ALBUTEROL 2.5MG INH SOL UD 3ML (DUONEB) NEB SCH ×4 (02:21→19:33)
[2020-07-17 06:00] VITALS: BP 132/68
[2020-07-17] MEDS: SUCROFERRIC OXYHYDROXIDE 500MG CHEW TAB (VELPHORO) PO SCH ×4 (08:00→18:11)
[2020-07-17] MEDS: (RENVELA) SEVELAMER **CARBONate** 800 MG TAB PO SCH ×4 (08:00→18:10)
[2020-07-17] MEDS: [UNRECOGNIZED DRUG - REMARK] XX SCH (08:00)
--- NOTE | 2020-07-17 08:19 | REP ---
PORTABLE CHEST X-RAY: 2-VIEWS HISTORY: Shortness of breath. COMPARISON: 05/14/20 FINDINGS: Tracheostomy tube is noted in place, unchanged. Monitoring electrodes are seen. A left-sided peripherally inserted central catheter is noted. This appears to terminate in the region of the subclavian vein. Cardiomegaly is observed. There is platelike atelectasis and/or fibrosis in the right base, unchanged. No new infiltrate is seen. The pleural angles are sharp. Pulmonary vascular congestion is seen. IMPRESSION: Linear platelike atelectasis right base. Tracheostomy tube in place. Prominent heart. Cephalization of the pulmonary vasculature. MTDD
[2020-07-17] MEDS: AMIODARONE 200 MG TAB (PACERONE) PO SCH (08:30)
[2020-07-17] MEDS: BISACODYL 5 MG TAB PO SCH (08:30)
[2020-07-17] MEDS: SERTRALINE 100 MG TAB PO SCH (08:30)
[2020-07-17] MEDS: PANTOPRAZOLE 40MG TAB (PROTONIX) PO SCH (08:30)
[2020-07-17] MEDS: levETIRAcetam 250MG TABLET (KEPPRA) PO SCH (08:30)
[2020-07-17] MEDS: LIDOCAINE 5% (LIDODERM) PATCH TD SCH (08:31)
[2020-07-17] MEDS ORDERED: TUBERCULIN PPD 5 UNITS/0.1 ML ID ONE (14:15)
[2020-07-17] MEDS: IPRATROPIUM 0.5MG/ALBUTEROL 2.5MG INH SOL UD 3ML (DUONEB) NEB PRN (16:52)
--- NOTE | 2020-07-17 17:46 | REP ---
PORTABLE CHEST X-RAY CLINICAL: Right-sided rib and chest pain. COMPARISON: 06/13/2020. FINDINGS: Cardiomegaly is again appreciated and essentially unchanged. A tracheostomy overlies the airway in satisfactory stable position. There is a spring, which overlies the left cardiac silhouette measuring roughly 18 mm in diameter and 2.5 cm in length likely external to the body. The lung kline are clear and without focal consolidation, effusion, or pneumothorax. The skeletal structures appear intact. IMPRESSION: 1. Stable cardiomegaly. 2. Spring-like presumed foreign body overlying the left cardiac silhouette. 3. No focal consolidation or effusion. 4. No obvious rib fracture or pathology by current portable x-ray. [facility]
--- NOTE | 2020-07-17 17:50 | IPN ---
DATE: 07/11/2020 SUBJECTIVE: Patient was seen and examined at the bedside today morning during hemodialysis procedure. He is tolerating the hemodialysis procedure well. He denies any active complaints at this time. OBJECTIVE: Vital signs: Temperature 98.2 degrees Fahrenheit, blood pressure 116/54, pulse 60, respiratory rate 18, saturating 96% on room air. Intake and output: There is no urine output recorded. Weight in the bed scale is not available. PHYSICAL EXAMINATION: GENERAL: Patient is awake, alert and oriented x3, morbidly obese, lying in bed. HEAD AND NECK: Extraocular muscles are intact. Pupils equally round and reactive to light. Mucous membranes are moist. Neck is supple. He has a trach collar. CARDIOVASCULAR: S1, S2, regular rate. No edema of the bilateral lower extremities. RESPIRATORY: Chest is clear to auscultation bilaterally. Bilateral equal air entry. No rales or rhonchi. ABDOMEN: Obese, positive bowel sounds, nontender. No organomegaly. MUSCULOSKELETAL: Minimal range of movement of the bilateral lower extremities because of chronically bedridden status. INSTRUCTOR PILOT: Patient is otherwise awake and alert. He follows commands and moves bilateral upper extremities. AV ACCESS: Right upper arm AV fistula is being used for dialysis. LABORATORY REVIEW: CBC showed WBC 6.7, hemoglobin 10.6, platelets 139,000. BMP showed sodium 134, potassium 4.9, chloride 100, bicarb 28, BUN 34, creatinine 5.3. Calcium 7.8, phosphorous 5.5, albumin 2.4. CURRENT INPATIENT MEDICATIONS: Patient's medications were all reviewed by myself. There is no significant change in the medications today as compared with yesterday. ASSESSMENT AND PLAN: 1. End-stage renal disease on hemodialysis: Patient is being dialyzed according to his Wednesday, , Wednesday schedule. Ultrafiltration goal is 2 liters as tolerated by his blood pressure. 2. Anemia and end-stage renal disease: Hemoglobin level is slowly dropping, it is 10.6 now. I am going to give him a few doses of Venofer. If that does not help, then he will be started on Aranesp with dialysis. 3. Chronic kidney disease/mineral bone disease: Phosphorus level is still high. He is on Renvela 2.4 grams p.o. with meals. I am going to start him on Velphoro with meals as well. 4. Hypotension: Continue current dose of Midodrine before dialysis. MTDD
--- NOTE | 2020-07-17 17:53 | IPN ---
DATE: 07/13/2020 SUBJECTIVE: Mr. Richard is seen this morning during hemodialysis. He remains on trach collar. He is without any acute distress at present. He denies any nausea, vomiting, fever or chills. PHYSICAL EXAMINATION: VITAL SIGNS: Temperature 97.5 degrees Fahrenheit, heart rate 60 per minute, respiratory rate 18 per minute, blood pressure 118/57 mmHg and oxygen saturation 95% on 5 liter oxygen via trach collar. HEENT: Head is atraumatic. Neck is supple and tracheostomy is in place. HEART: Heart sounds are regular. LUNGS: Clear to auscultation with diminished breath sounds due to morbid obesity. ABDOMEN: Obese and nontender. EXTREMITIES: Without any cyanosis or clubbing. Right arm AV fistula is patent. NEUROLOGIC: He is at his baseline mentation. PROBLEMS: 1. End-stage renal disease: Patient remains dialysis dependent. He is being dialyzed today and tolerating it very well. 2. Respiratory failure: This is chronic obesity associated hypoventilation. Patient has tracheostomy and has been doing well since his tracheostomy has been adjusted. His volume status is very well compensated and we will continue to maintain it with dialysis. 3. Anemia: His anemia has been stable and does not need any intervention at present. DISPOSITION: [facility]. [facility]
--- NOTE | 2020-07-17 17:56 | IPN ---
DATE: 07/16/2020 SUBJECTIVE: Mr. Richard is seen this morning during hemodialysis. He is feeling well and denies any complaints. He remains on a trach collar. Patient denies any nausea, vomiting, chest pain, fever, or chills. PHYSICAL EXAMINATION: VITAL SIGNS: Temperature 97.2 degrees Fahrenheit, heart rate 60 per minute and respiratory rate 18 per minute. Blood pressure 146/68 mmHg and oxygen saturation 91% on trach collar. HEENT: Head is atraumatic. NECK: Supple without JVD or thyroid enlargement. JVD is difficult to be assessed. Tracheostomy is in place. HEART: Regular. LUNGS: Clear to auscultation with diminished breath sounds due to morbid obesity. ABDOMEN: Soft and nontender. EXTREMITIES: Without any cyanosis or clubbing. Right arm AV fistula is patent and is being used for dialysis. NEUROLOGIC: He is at his baseline mentation. LABORATORY DATA: Todays labs showed a WBC count of 7, hemoglobin 11.6, hematocrit 37.5, platelets 154,000. Sodium 138, potassium 4.9, CO2 27, BUN 38 and creatinine 5.64. Glucose 95 and calcium 9.6. Phosphorus is 5.2. PROBLEMS: 1. Endstage renal disease. Patient is being dialyzed today and he is tolerating his dialysis treatment very well. His volume status remains very well compensated and we are trying to remove about 2 liters of fluid today. He is tolerating it well so far. 2. Anemia. His anemia is stable and he does not need any intervention at present. 3. Respiratory failure, this is related to obstructive sleep apnea and morbid obesity associated hypoventilation. Volume status remains well compensated. 4. Disposition: The patient is currently waiting for a residential bed. [facility]
[2020-07-17 19:37] VITALS: O2SAT 97
[2020-07-17] MEDS: ALPRAZolam 0.25 MG TAB PO PRN (21:57)
[2020-07-17] MEDS: PRAMIPEXOLE (MIRAPEX) 0.125 MG TAB PO SCH (21:57)
[2020-07-17] MEDS: oxyCODONE 5MG TAB PO PRN (21:59)
[2020-07-18] MEDS: IPRATROPIUM 0.5MG/ALBUTEROL 2.5MG INH SOL UD 3ML (DUONEB) NEB SCH ×4 (00:26→18:16)
[2020-07-18 01:48] VITALS: BP 130/60
[2020-07-18] MEDS: IPRATROPIUM 0.5MG/ALBUTEROL 2.5MG INH SOL UD 3ML (DUONEB) NEB PRN ×2 (05:24→17:02)
[2020-07-18 06:30] VITALS: BP 161/80
[2020-07-18] MEDS: AMIODARONE 200 MG TAB (PACERONE) PO SCH (06:34)
[2020-07-18] MEDS: PANTOPRAZOLE 40MG TAB (PROTONIX) PO SCH (06:34)
[2020-07-18] MEDS: levETIRAcetam 250MG TABLET (KEPPRA) PO SCH (06:34)
[2020-07-18] MEDS: SERTRALINE 100 MG TAB PO SCH (06:35)
[2020-07-18] MEDS: BISACODYL 5 MG TAB PO SCH (06:36)
[2020-07-18] MEDS: LIDOCAINE 5% (LIDODERM) PATCH TD SCH (06:38)
[2020-07-18] MEDS: [UNRECOGNIZED DRUG - REMARK] XX SCH (08:00)
[2020-07-18] MEDS: (RENVELA) SEVELAMER **CARBONate** 800 MG TAB PO SCH ×3 (08:12→18:06)
[2020-07-18] MEDS: SUCROFERRIC OXYHYDROXIDE 500MG CHEW TAB (VELPHORO) PO SCH ×3 (08:12→18:06)
[2020-07-18] MEDS: ALPRAZolam 0.25 MG TAB PO PRN ×2 (08:21→21:25)
[2020-07-18] MEDS: oxyCODONE 5MG TAB PO PRN ×3 (08:22→21:26)
[2020-07-18] MEDS: PRAMIPEXOLE (MIRAPEX) 0.125 MG TAB PO SCH (21:25)
[2020-07-19] MEDS: IPRATROPIUM 0.5MG/ALBUTEROL 2.5MG INH SOL UD 3ML (DUONEB) NEB SCH ×4 (01:39→19:59)
[2020-07-19 01:40] VITALS: O2SAT 95
[2020-07-19] MEDS: oxyCODONE 5MG TAB PO PRN ×3 (03:13→21:02)
[2020-07-19] MEDS: IPRATROPIUM 0.5MG/ALBUTEROL 2.5MG INH SOL UD 3ML (DUONEB) NEB PRN ×2 (05:42→16:02)
[2020-07-19 06:00] VITALS: BP 111/49
[2020-07-19] MEDS: SUCROFERRIC OXYHYDROXIDE 500MG CHEW TAB (VELPHORO) PO SCH ×3 (08:00→17:56)
[2020-07-19] MEDS: [UNRECOGNIZED DRUG - REMARK] XX SCH (08:00)
[2020-07-19] MEDS: (RENVELA) SEVELAMER **CARBONate** 800 MG TAB PO SCH ×3 (08:00→17:56)
[2020-07-19] MEDS: ALPRAZolam 0.25 MG TAB PO PRN ×2 (08:10→21:01)
[2020-07-19] MEDS: LIDOCAINE 5% (LIDODERM) PATCH TD SCH (08:11)
[2020-07-19] MEDS: BISACODYL 5 MG TAB PO SCH (08:11)
[2020-07-19] MEDS: AMIODARONE 200 MG TAB (PACERONE) PO SCH (08:11)
[2020-07-19] MEDS: levETIRAcetam 250MG TABLET (KEPPRA) PO SCH (08:11)
[2020-07-19] MEDS: SERTRALINE 100 MG TAB PO SCH (08:11)
[2020-07-19] MEDS: PANTOPRAZOLE 40MG TAB (PROTONIX) PO SCH (08:11)
--- NOTE | 2020-07-19 14:30 | IPNPDOC ---
Text Note Date of Service The patient was seen on 07/19/20. NOTE S Patient was seen and examined this morning at bedside. Patient was comfortable placing him on his eye patched. Answered all questions appropriately. Told me he is not in any pain. Denies any shortness of breath or chest pain. Understands plan for transfer to [place] next week. No evidence for the past few days per nursing. O GENERAL: Morbidly obese male HEAD/NECK: PERRLA, EOMI CARDIOVASCULAR: S1, S2 RESPIRATORY: CTA ABDOMEN: Obese, positive bowel sounds, nontender. No organomegaly. MUSCULOSKELETAL: Decreased range of movement of lower extremities because he is chronically bedridden. CLINICAL OFFICE TECHNICIAN: No focal deficit. Awake. Able to communicate appropriately. Moves bilateral upper extremities. Lower extremities are weak because of bedridden status. A/P 50 year old male with multiple comorbidities including ESRD on hemodialysis, currently ALC status [facility] # ESRD on hemodialysis: Patient is being dialyzed according to his regular TTS schedule # Hypotension: Continue midodrine on dialysis days. # Anemia: Stable, monitor and transfuse if indicated. # Chronically bedridden: Awaiting placement to prison. # Chronic respiratory failure status post tracheostomy. A Maris[facility] Hospitalist VS,Carlie, I+O VSCarlie, I+O Vital Signs Date Time Temp Pulse Resp B/P (MAP) Pulse Ox O2 Delivery O2 Flow Rate FiO2 07/19/20 09:00 8.0 07/19/20 08:40 18 07/19/20 06:00 97.1 59 111/49 (69) 90 Trach Collar 07/19/20 01:40 28 I&O- Last 24 Hours up to 6 AM 07/19/20 06:00 Intake Total 2170 ml Output Total 2000 ml Balance 170 ml KAYLA RIZVI MD Jul 19, 2020 14:30
[2020-07-19] MEDS ORDERED: PPD DOCUMENTATION ENTRY MISC XX ONE (15:00)
[2020-07-19] MEDS: PRAMIPEXOLE (MIRAPEX) 0.125 MG TAB PO SCH (21:01)
[2020-07-20] MEDS: IPRATROPIUM 0.5MG/ALBUTEROL 2.5MG INH SOL UD 3ML (DUONEB) NEB SCH ×4 (01:22→19:17)
[2020-07-20 06:00] VITALS: BP 159/76
[2020-07-20] MEDS: BISACODYL 5 MG TAB PO SCH (06:32)
[2020-07-20] MEDS: AMIODARONE 200 MG TAB (PACERONE) PO SCH (06:32)
[2020-07-20] MEDS: levETIRAcetam 250MG TABLET (KEPPRA) PO SCH (06:32)
[2020-07-20] MEDS: SERTRALINE 100 MG TAB PO SCH (06:32)
[2020-07-20] MEDS: PANTOPRAZOLE 40MG TAB (PROTONIX) PO SCH (06:33)
[2020-07-20 07:49] VITALS: O2SAT 96
[2020-07-20] MEDS: SUCROFERRIC OXYHYDROXIDE 500MG CHEW TAB (VELPHORO) PO SCH ×3 (08:00→17:41)
[2020-07-20] MEDS: (RENVELA) SEVELAMER **CARBONate** 800 MG TAB PO SCH ×3 (08:00→17:40)
[2020-07-20] MEDS: [UNRECOGNIZED DRUG - REMARK] XX SCH (08:00)
[2020-07-20] MEDS: LIDOCAINE 5% (LIDODERM) PATCH TD SCH (09:00)
[2020-07-20 11:00] LABS: ALBUMIN 2.4 GM/DL (3.2-5.2); CALCIUM LEVEL 9.9 MG/DL (8.5-10.1); CREATININE FOR GFR 4.77 MG/DL (0.70-1.30); PHOSPHORUS LEVEL 4.4 MG/DL (2.5-4.9); POTASSIUM SERUM 4.1 MEQ/L (3.5-5.1)
[2020-07-20 11:06] LABS: BASO # 0.1 10^3/uL (0.0-0.2); BASO % 0.7 % (0.0-1.0); EOS # 0.5 10^3/uL (0.0-0.5); EOS % 6.9 % (0.0-3.0); HEMATOCRIT 37.6 % (42.0-52.0); HEMOGLOBIN 11.9 g/dl (13.5-17.5); LYMPH # 2.1 10^3/uL (1.5-5.0); LYMPH % 30.9 % (24.0-44.0); MEAN CORPUSCULAR HEMOGLOBIN 28.9 pg (27.0-33.0); MEAN CORPUSCULAR HGB CONC 31.6 g/dl (32.0-36.5); MEAN CORPUSCULAR VOLUME 91.3 fl (80.0-96.0); MONO # 0.3 10^3/uL (0.0-0.8); MONO % 4.7 % (0.0-5.0); NEUTROPHILS # 3.8 10^3/uL (1.5-8.5); NEUTROPHILS % 56.4 % (36.0-66.0); PLATELET COUNT, AUTOMATED 152 10^3/uL (150-450); RED BLOOD COUNT 4.12 10^6/uL (4.30-6.10); WHITE BLOOD COUNT 6.8 10^3/uL (4.0-10.0)
[2020-07-20] MEDS: oxyCODONE 5MG TAB PO PRN ×2 (16:24→21:17)
[2020-07-20] MEDS: PRAMIPEXOLE (MIRAPEX) 0.125 MG TAB PO SCH (21:17)
[2020-07-20] MEDS: ALPRAZolam 0.25 MG TAB PO PRN (21:18)
[2020-07-21] MEDS: IPRATROPIUM 0.5MG/ALBUTEROL 2.5MG INH SOL UD 3ML (DUONEB) NEB SCH ×4 (01:57→19:34)
[2020-07-21] MEDS: IPRATROPIUM 0.5MG/ALBUTEROL 2.5MG INH SOL UD 3ML (DUONEB) NEB PRN ×2 (05:08→23:39)
[2020-07-21 06:00] VITALS: BP 133/71
[2020-07-21] MEDS: SUCROFERRIC OXYHYDROXIDE 500MG CHEW TAB (VELPHORO) PO SCH ×3 (08:00→17:01)
[2020-07-21] MEDS: (RENVELA) SEVELAMER **CARBONate** 800 MG TAB PO SCH ×3 (08:00→17:01)
[2020-07-21] MEDS: [UNRECOGNIZED DRUG - REMARK] XX SCH (08:00)
[2020-07-21] MEDS: LIDOCAINE 5% (LIDODERM) PATCH TD SCH (09:00)
[2020-07-21] MEDS: PANTOPRAZOLE 40MG TAB (PROTONIX) PO SCH (10:33)
[2020-07-21] MEDS: BISACODYL 5 MG TAB PO SCH (10:33)
[2020-07-21] MEDS: levETIRAcetam 250MG TABLET (KEPPRA) PO SCH (10:35)
[2020-07-21] MEDS: oxyCODONE 5MG TAB PO PRN ×2 (10:36→21:26)
[2020-07-21] MEDS: SERTRALINE 100 MG TAB PO SCH (10:36)
[2020-07-21] MEDS: AMIODARONE 200 MG TAB (PACERONE) PO SCH (10:36)
[2020-07-21] MEDS: ALPRAZolam 0.25 MG TAB PO PRN (21:25)
[2020-07-21] MEDS: PRAMIPEXOLE (MIRAPEX) 0.125 MG TAB PO SCH (21:25)
[2020-07-22] MEDS: IPRATROPIUM 0.5MG/ALBUTEROL 2.5MG INH SOL UD 3ML (DUONEB) NEB SCH ×5 (02:00→23:58)
[2020-07-22] MEDS: IPRATROPIUM 0.5MG/ALBUTEROL 2.5MG INH SOL UD 3ML (DUONEB) NEB PRN ×2 (05:29→09:33)
[2020-07-22 06:00] VITALS: BP 156/59
[2020-07-22] MEDS: SUCROFERRIC OXYHYDROXIDE 500MG CHEW TAB (VELPHORO) PO SCH ×3 (08:00→18:04)
[2020-07-22] MEDS: [UNRECOGNIZED DRUG - REMARK] XX SCH (08:00)
[2020-07-22] MEDS: (RENVELA) SEVELAMER **CARBONate** 800 MG TAB PO SCH ×3 (08:00→18:04)
[2020-07-22] MEDS: LIDOCAINE 5% (LIDODERM) PATCH TD SCH (09:00)
[2020-07-22] MEDS: oxyCODONE 5MG TAB PO PRN ×2 (09:39→20:05)
[2020-07-22] MEDS: levETIRAcetam 250MG TABLET (KEPPRA) PO SCH (09:40)
[2020-07-22] MEDS: AMIODARONE 200 MG TAB (PACERONE) PO SCH (09:40)
[2020-07-22] MEDS: BISACODYL 5 MG TAB PO SCH (09:40)
[2020-07-22] MEDS: ALPRAZolam 0.25 MG TAB PO PRN ×2 (09:40→20:04)
[2020-07-22] MEDS: PANTOPRAZOLE 40MG TAB (PROTONIX) PO SCH (09:40)
[2020-07-22] MEDS: SERTRALINE 100 MG TAB PO SCH (09:40)
[2020-07-22] MEDS: PRAMIPEXOLE (MIRAPEX) 0.125 MG TAB PO SCH (20:04)
[2020-07-23] MEDS: IPRATROPIUM 0.5MG/ALBUTEROL 2.5MG INH SOL UD 3ML (DUONEB) NEB PRN ×2 (05:07→09:02)
[2020-07-23] MEDS: LIDOCAINE 5% (LIDODERM) PATCH TD SCH (05:43)
[2020-07-23] MEDS: levETIRAcetam 250MG TABLET (KEPPRA) PO SCH (05:48)
[2020-07-23] MEDS: AMIODARONE 200 MG TAB (PACERONE) PO SCH (05:49)
[2020-07-23] MEDS: BISACODYL 5 MG TAB PO SCH (05:49)
[2020-07-23] MEDS: SERTRALINE 100 MG TAB PO SCH (05:49)
[2020-07-23] MEDS: PANTOPRAZOLE 40MG TAB (PROTONIX) PO SCH (05:49)
[2020-07-23 06:00] VITALS: BP 153/76
[2020-07-23] MEDS: IPRATROPIUM 0.5MG/ALBUTEROL 2.5MG INH SOL UD 3ML (DUONEB) NEB SCH ×3 (07:10→19:20)
[2020-07-23] MEDS: SUCROFERRIC OXYHYDROXIDE 500MG CHEW TAB (VELPHORO) PO SCH ×4 (08:00→18:05)
[2020-07-23] MEDS: (RENVELA) SEVELAMER **CARBONate** 800 MG TAB PO SCH ×4 (08:00→18:05)
[2020-07-23] MEDS: MIDODRINE 5 MG TAB PO SCH (08:19)
[2020-07-23] MEDS: [UNRECOGNIZED DRUG - REMARK] XX SCH (08:23)
[2020-07-23 11:12] LABS: BASO # 0.1 10^3/uL (0.0-0.2); BASO % 0.7 % (0.0-1.0); EOS # 0.6 10^3/uL (0.0-0.5); EOS % 7.4 % (0.0-3.0); HEMATOCRIT 35.9 % (42.0-52.0); HEMOGLOBIN 11.2 g/dl (13.5-17.5); LYMPH # 2.5 10^3/uL (1.5-5.0); LYMPH % 31.5 % (24.0-44.0); MEAN CORPUSCULAR HEMOGLOBIN 28.6 pg (27.0-33.0); MEAN CORPUSCULAR HGB CONC 31.2 g/dl (32.0-36.5); MEAN CORPUSCULAR VOLUME 91.6 fl (80.0-96.0); MONO # 0.4 10^3/uL (0.0-0.8); MONO % 5.2 % (0.0-5.0); NEUTROPHILS # 4.4 10^3/uL (1.5-8.5); PLATELET COUNT, AUTOMATED 156 10^3/uL (150-450); RED BLOOD COUNT 3.92 10^6/uL (4.30-6.10)
[2020-07-23 11:37] LABS: ALBUMIN 2.3 GM/DL (3.2-5.2); CALCIUM LEVEL 9.5 MG/DL (8.5-10.1); CREATININE FOR GFR 6.08 MG/DL (0.70-1.30); GLOMERULAR FILTRATION RATE 10.6 (>60); PHOSPHORUS LEVEL 4.3 MG/DL (2.5-4.9); POTASSIUM SERUM 4.4 MEQ/L (3.5-5.1)
[2020-07-23] MEDS: PRAMIPEXOLE (MIRAPEX) 0.125 MG TAB PO SCH (20:04)
[2020-07-23] MEDS: ALPRAZolam 0.25 MG TAB PO PRN (20:04)
[2020-07-23] MEDS: oxyCODONE 5MG TAB PO PRN (20:05)
[2020-07-24] MEDS: IPRATROPIUM 0.5MG/ALBUTEROL 2.5MG INH SOL UD 3ML (DUONEB) NEB SCH ×4 (01:17→19:20)
[2020-07-24 06:00] VITALS: BP 153/74
[2020-07-24] MEDS: [UNRECOGNIZED DRUG - REMARK] XX SCH (08:00)
[2020-07-24] MEDS: (RENVELA) SEVELAMER **CARBONate** 800 MG TAB PO SCH ×3 (08:00→17:56)
[2020-07-24] MEDS: SUCROFERRIC OXYHYDROXIDE 500MG CHEW TAB (VELPHORO) PO SCH ×3 (08:00→17:56)
[2020-07-24] MEDS: LIDOCAINE 5% (LIDODERM) PATCH TD SCH (09:00)
[2020-07-24] MEDS: BISACODYL 5 MG TAB PO SCH (09:34)
[2020-07-24] MEDS: oxyCODONE 5MG TAB PO PRN ×2 (09:34→21:56)
[2020-07-24] MEDS: PANTOPRAZOLE 40MG TAB (PROTONIX) PO SCH (09:34)
[2020-07-24] MEDS: SERTRALINE 100 MG TAB PO SCH (09:34)
[2020-07-24] MEDS: ALPRAZolam 0.25 MG TAB PO PRN ×2 (09:34→21:54)
[2020-07-24] MEDS: AMIODARONE 200 MG TAB (PACERONE) PO SCH (09:35)
[2020-07-24] MEDS: levETIRAcetam 250MG TABLET (KEPPRA) PO SCH (09:35)
[2020-07-24 11:18] LABS: EOS # 0.2 10^3/uL (0.0-0.5); EOS % 3.3 % (0.0-3.0); HEMATOCRIT 37.8 % (42.0-52.0); HEMOGLOBIN 12.4 g/dl (13.5-17.5); LYMPH # 1.7 10^3/uL (1.5-5.0); LYMPH % 24.6 % (24.0-44.0); MEAN CORPUSCULAR HEMOGLOBIN 30.3 pg (27.0-33.0); MEAN CORPUSCULAR HGB CONC 32.8 g/dl (32.0-36.5); MEAN CORPUSCULAR VOLUME 92.4 fl (80.0-96.0); MONO # 0.7 10^3/uL (0.0-0.8); MONO % 10.2 % (0.0-5.0); NEUTROPHILS # 4.3 10^3/uL (1.5-8.5); NEUTROPHILS % 61.3 % (36.0-66.0); PLATELET COUNT, AUTOMATED 136 10^3/uL (150-450); RED BLOOD COUNT 4.09 10^6/uL (4.30-6.10)
[2020-07-24] MEDS: PRAMIPEXOLE (MIRAPEX) 0.125 MG TAB PO SCH (21:54)
[2020-07-24] MEDS: IPRATROPIUM 0.5MG/ALBUTEROL 2.5MG INH SOL UD 3ML (DUONEB) NEB PRN (22:00)
[2020-07-25] MEDS: IPRATROPIUM 0.5MG/ALBUTEROL 2.5MG INH SOL UD 3ML (DUONEB) NEB SCH ×6 (00:56→23:57)
[2020-07-25] MEDS: [UNRECOGNIZED DRUG - REMARK] XX SCH (05:56)
[2020-07-25] MEDS: MIDODRINE 5 MG TAB PO SCH ×3 (05:57→17:55)
[2020-07-25 05:58] VITALS: BP 153/74
[2020-07-25] MEDS: SERTRALINE 100 MG TAB PO SCH (06:10)
[2020-07-25] MEDS: BISACODYL 5 MG TAB PO SCH (06:10)
[2020-07-25] MEDS: levETIRAcetam 250MG TABLET (KEPPRA) PO SCH (06:10)
[2020-07-25] MEDS: PANTOPRAZOLE 40MG TAB (PROTONIX) PO SCH (06:10)
[2020-07-25] MEDS: AMIODARONE 200 MG TAB (PACERONE) PO SCH (06:13)
[2020-07-25] MEDS: IPRATROPIUM 0.5MG/ALBUTEROL 2.5MG INH SOL UD 3ML (DUONEB) NEB PRN (06:17)
[2020-07-25] MEDS: ALPRAZolam 0.25 MG TAB PO PRN ×2 (06:24→21:36)
[2020-07-25] MEDS: oxyCODONE 5MG TAB PO PRN ×3 (06:24→21:36)
[2020-07-25] MEDS: LIDOCAINE 5% (LIDODERM) PATCH TD SCH (06:29)
[2020-07-25] MEDS: (RENVELA) SEVELAMER **CARBONate** 800 MG TAB PO SCH ×3 (08:13→17:54)
[2020-07-25] MEDS: SUCROFERRIC OXYHYDROXIDE 500MG CHEW TAB (VELPHORO) PO SCH ×3 (08:14→17:54)
[2020-07-25 09:36] LABS: BASO % 0.2 % (0.0-1.0); EOS # 0.4 10^3/uL (0.0-0.5); EOS % 5.7 % (0.0-3.0); HEMOGLOBIN 10.5 g/dl (13.5-17.5); LYMPH # 1.9 10^3/uL (1.5-5.0); LYMPH % 30.5 % (24.0-44.0); MEAN CORPUSCULAR HEMOGLOBIN 30.3 pg (27.0-33.0); MEAN CORPUSCULAR HGB CONC 31.8 g/dl (32.0-36.5); MEAN CORPUSCULAR VOLUME 95.1 fl (80.0-96.0); MONO # 0.6 10^3/uL (0.0-0.8); NEUTROPHILS # 3.3 10^3/uL (1.5-8.5); NEUTROPHILS % 52.9 % (36.0-66.0); PLATELET COUNT, AUTOMATED 131 10^3/uL (150-450); RED BLOOD COUNT 3.47 10^6/uL (4.30-6.10); WHITE BLOOD COUNT 6.1 10^3/uL (4.0-10.0)
[2020-07-25 09:42] LABS: BASO # 0.1 10^3/uL (0.0-0.2); BASO % 0.7 % (0.0-1.0); EOS # 0.9 10^3/uL (0.0-0.5); EOS % 12.9 % (0.0-3.0); HEMATOCRIT 33.4 % (42.0-52.0); HEMOGLOBIN 10.2 g/dl (13.5-17.5); LYMPH # 2.3 10^3/uL (1.5-5.0); LYMPH % 34.6 % (24.0-44.0); MEAN CORPUSCULAR HEMOGLOBIN 28.5 pg (27.0-33.0); MEAN CORPUSCULAR HGB CONC 30.5 g/dl (32.0-36.5); MEAN CORPUSCULAR VOLUME 93.3 fl (80.0-96.0); MONO # 0.4 10^3/uL (0.0-0.8); MONO % 5.6 % (0.0-5.0); NEUTROPHILS # 3.1 10^3/uL (1.5-8.5); NEUTROPHILS % 45.9 % (36.0-66.0); PLATELET COUNT, AUTOMATED 148 10^3/uL (150-450); RED BLOOD COUNT 3.58 10^6/uL (4.30-6.10); WHITE BLOOD COUNT 6.8 10^3/uL (4.0-10.0)
[2020-07-25 10:09] LABS: ALBUMIN 2.4 GM/DL (3.2-5.2); BILIRUBIN,TOTAL 0.4 MG/DL (0.2-1.0); CALCIUM LEVEL 9.7 MG/DL (8.5-10.1); CREATININE FOR GFR 5.35 MG/DL (0.70-1.30); GLOMERULAR FILTRATION RATE 12.3 (>60); POTASSIUM SERUM 3.5 MEQ/L (3.5-5.1); TOTAL PROTEIN 6.1 GM/DL (6.4-8.2)
--- NOTE | 2020-07-25 10:13 | IPN ---
DATE: 07/20/2020 SUBJECTIVE: Patient was seen and examined at the bedside today morning during hemodialysis procedure. He is tolerating the hemodialysis procedure well. He denies any active complaints at this time. OBJECTIVE: Vital signs: Temperature 98.3 degrees Fahrenheit, blood pressure 159/76, pulse 60, respiratory rate 16, saturating 95% on trach collar with 28% FIO2. Intake and output: There is no urine output recorded. Weight in the bed scale is not available. PHYSICAL EXAMINATION: GENERAL: Patient is awake, alert and oriented x3, morbidly obese, lying in bed getting hemodialysis done. HEAD AND NECK: Extraocular muscles intact. Pupils equally round and reactive to light. Mucous membranes are moist. Neck is supple. He has a trach collar. CARDIOVASCULAR: S1, S2, regular rate. No edema of the bilateral lower extremities. RESPIRATORY: Chest is clear to auscultation bilaterally. Bilateral equal air entry. No rales or rhonchi. ABDOMEN: Soft, obese, positive bowel sounds, nontender. MUSCULOSKELETAL: No clubbing or cyanosis. Pulses are 2+. PIZZA COOK: No focal deficit. Power is 5/5 in all extremities. AV ACCESS: He has a right upper arm AV fistula, which is being used for dialysis. LABORATORY REVIEW: CBC showed WBC 6.8, hemoglobin 11.9, platelet 152,000. BMP showed sodium 136, potassium 4.1, chloride 100, bicarb 28, BUN 26, creatinine 4.7. CURRENT INPATIENT MEDICATIONS: The patient's medications were all reviewed by myself. There is no significant change in the medications today as compared with yesterday. ASSESSMENT AND PLAN: 1. End-stage renal disease: Patient is being dialyzed according to his regular schedule today. Ultrafiltration goal will be 2.5 kg as tolerated by his blood pressure. 2. Anemia and end-stage renal disease: Hemoglobin level is more than 11. No need of BRIAN administration at this time. He is finishing his I.V. Venofer course with dialysis. 3. Hypotension: Continue Midodrine dose on dialysis days. 4. Chronic kidney disease/mineral bone disease: Continue current dose of Renvela and Velphoro with meals three times a day. Latest phosphorus level is within the acceptable range. MTDD
--- NOTE | 2020-07-25 10:14 | IPN ---
DATE: 07/18/2020 SUBJECTIVE: Mr. Richard is seen this morning during hemodialysis. He is feeling well and denies any new complaints. He remains on trach collar. Nursing staff reports that patient is going to be discharged to assisted in [place], [place], next week. PHYSICAL EXAMINATION: VITAL SIGNS: Temperature 98.4 degrees Fahrenheit, heart rate 64 per minute, respiratory rate 18 per minute, blood pressure 160/80 mmHg and oxygen saturation 94%. HEENT: Head is atraumatic. NECK: Supple and tracheostomy is in place. HEART: Heart sounds are regular. LUNGS: Moderate bilateral air entry. ABDOMEN: Obese, soft and nontender. EXTREMITIES: Without any cyanosis or clubbing. NEUROLOGIC: He is at his baseline mentation. PROBLEMS: 1. End-stage renal disease: Patient remains on hemodialysis three times a week. He is being dialyzed today. He is very well dialyzed overall and his labs were done on 07/16/2020, which were all appropriate. 2. Anemia: His anemia has been stable and does not need any intervention at present. 3. Hypotension: Chronic hypotension has been stable and no changes are being made today. His volume status is well compensated. 4. Respiratory failure, status post tracheostomy: Patient remains on trach collar. His volume status is well compensated and we will continue to manage it with dialysis. [facility]
--- NOTE | 2020-07-25 18:42 | IPNPDOC ---
Date Seen The patient was seen on 07/25/20. Progress Note SUBJECTIVE: Patient was seen and examined today at bedside. Appears comfortable in bed. Alert and oriented. Tolerating by mouth diet. He denies fevers, chills, nausea, vomiting or diarrhea. Awaiting dialysis chair at [facility]. OBJECTIVE PHYSICAL EXAMINATION: VITAL SIGNS: please see below General: obese. comfortable. HEENT: PERRLA, EOMI, sclerae clear Neck: supple, normal ROM, no JVD. Trach in place. Respiratory: lungs CTAB, no wheeze, no rales, no crackles CVS: RRR, normal S1, S2, no murmurs Abdo: soft, no masses, no hepatosplenomegaly, BS+, no rebound tenderness Extremities: no edema, pulses 2+ MSK: no joint deformities, normal ROM Neuro: no focal neuro deficits, moving all 4 extremities, CN2-12 intact. Strength 5/5 in all 4 extremities. No nystagmus. Psych: calm, cooperative, AAO x 3 LABORATORY DATA, IMAGING STUDIES, MICROBIOLOGY: Please see below. DVT prophylaxis ordered?:Y ASSESSMENT AND PLAN: 50 year old male with multiple comorbidities including ESRD on hemodialysis, currently ALC status pending placement to [facility] facility # ESRD on hemodialysis: Patient is being dialyzed according to his regular TTS schedule # Hypotension: Continue midodrine on dialysis days. # Anemia: Stable, monitor and transfuse if indicated. # Chronically bedridden: Awaiting placement to [facility]. # Chronic respiratory failure status post tracheostomy. DVT ppx: heparin 5000 units q8h SC VS, I&O, 24H, Fishbone Vital Signs/I&O Vital Signs Date Time Temp Pulse Resp B/P (MAP) Pulse Ox O2 Delivery O2 Flow Rate FiO2 07/25/20 14:09 20 07/25/20 06:54 Trach Collar 8.0 35 07/25/20 05:58 97.7 62 153/74 (100) 94 I&O- Last 24 Hours up to 6 AM 07/25/20 06:00 Intake Total 590 ml Output Total 0 ml Balance 590 ml Laboratory Data 24H LABS Laboratory Tests 2 07/25/20 08:49: Immature Granulocyte % (Auto) 0.3, Neutrophils (%) (Auto) 45.9, Lymphocytes (%) (Auto) 34.6, Monocytes (%) (Auto) 5.6H, Eosinophils (%) (Auto) 12.9H, Basophils (%) (Auto) 0.7, Neutrophils # (Auto) 3.1, Lymphocytes # (Auto) 2.3, Monocytes # (Auto) 0.4, Eosinophils # (Auto) 0.9H, Basophils # (Auto) 0.1, Nucleated Red Blood Cells % (auto) 0.0, Anion Gap 7L, Glomerular Filtration Rate 12.3L, Calcium Level 9.7, Magnesium Level 2.0, Total Bilirubin 0.4, Aspartate Amino Transf (AST/SGOT) 20, Alanine Aminotransferase (ALT/SGPT) 18, Alkaline Phos phatase 113, Total Protein 6.1L, Albumin 2.4L, Albumin/Globulin Ratio 0.6 CBC/BMP Laboratory Tests 07/25/20 08:49 KENYON ALCALA MD Jul 25, 2020 18:42
[2020-07-25] MEDS: HEPARIN SOD (PORCINE) 5000UNITS/ML 1ML VIAL/SYRINGE SQ SCH (21:28)
[2020-07-25] MEDS: PRAMIPEXOLE (MIRAPEX) 0.125 MG TAB PO SCH (21:28)
[2020-07-26] MEDS: IPRATROPIUM 0.5MG/ALBUTEROL 2.5MG INH SOL UD 3ML (DUONEB) NEB SCH ×5 (03:50→20:18)
[2020-07-26] MEDS: HEPARIN SOD (PORCINE) 5000UNITS/ML 1ML VIAL/SYRINGE SQ SCH ×3 (05:26→20:51)
[2020-07-26 06:00] VITALS: BP 145/72
[2020-07-26] MEDS: SUCROFERRIC OXYHYDROXIDE 500MG CHEW TAB (VELPHORO) PO SCH ×3 (08:00→17:18)
[2020-07-26] MEDS: (RENVELA) SEVELAMER **CARBONate** 800 MG TAB PO SCH ×3 (08:00→17:18)
[2020-07-26] MEDS: [UNRECOGNIZED DRUG - REMARK] XX SCH (08:00)
[2020-07-26] MEDS: PANTOPRAZOLE 40MG TAB (PROTONIX) PO SCH (08:25)
[2020-07-26] MEDS: BISACODYL 5 MG TAB PO SCH (08:25)
[2020-07-26] MEDS: SERTRALINE 100 MG TAB PO SCH (08:26)
[2020-07-26] MEDS: oxyCODONE 5MG TAB PO PRN ×2 (08:26→20:53)
[2020-07-26] MEDS: levETIRAcetam 250MG TABLET (KEPPRA) PO SCH (08:26)
[2020-07-26] MEDS: AMIODARONE 200 MG TAB (PACERONE) PO SCH (08:26)
[2020-07-26] MEDS: ALPRAZolam 0.25 MG TAB PO PRN ×2 (08:26→20:51)
[2020-07-26] MEDS: LIDOCAINE 5% (LIDODERM) PATCH TD SCH (08:27)
[2020-07-26] MEDS: PRAMIPEXOLE (MIRAPEX) 0.125 MG TAB PO SCH (20:51)
[2020-07-26] MEDS: IPRATROPIUM 0.5MG/ALBUTEROL 2.5MG INH SOL UD 3ML (DUONEB) NEB PRN (21:46)
[2020-07-27] MEDS: IPRATROPIUM 0.5MG/ALBUTEROL 2.5MG INH SOL UD 3ML (DUONEB) NEB PRN (02:06)
[2020-07-27] MEDS: IPRATROPIUM 0.5MG/ALBUTEROL 2.5MG INH SOL UD 3ML (DUONEB) NEB SCH ×7 (04:00→23:10)
[2020-07-27 06:00] VITALS: BP 140/67
[2020-07-27] MEDS: HEPARIN SOD (PORCINE) 5000UNITS/ML 1ML VIAL/SYRINGE SQ SCH ×3 (06:41→21:13)
[2020-07-27] MEDS: BISACODYL 5 MG TAB PO SCH (06:42)
[2020-07-27] MEDS: levETIRAcetam 250MG TABLET (KEPPRA) PO SCH (06:42)
[2020-07-27] MEDS: PANTOPRAZOLE 40MG TAB (PROTONIX) PO SCH (06:43)
[2020-07-27] MEDS: AMIODARONE 200 MG TAB (PACERONE) PO SCH (06:43)
[2020-07-27] MEDS: LIDOCAINE 5% (LIDODERM) PATCH TD SCH (06:44)
[2020-07-27] MEDS: SERTRALINE 100 MG TAB PO SCH (06:44)
[2020-07-27] MEDS: [UNRECOGNIZED DRUG - REMARK] XX SCH (08:00)
[2020-07-27] MEDS: (RENVELA) SEVELAMER **CARBONate** 800 MG TAB PO SCH ×3 (08:00→17:49)
[2020-07-27] MEDS: SUCROFERRIC OXYHYDROXIDE 500MG CHEW TAB (VELPHORO) PO SCH ×3 (08:00→17:48)
[2020-07-27 10:32] LABS: BASO # 0.1 10^3/uL (0.0-0.2); BASO % 0.8 % (0.0-1.0); EOS # 0.9 10^3/uL (0.0-0.5); EOS % 11.5 % (0.0-3.0); HEMOGLOBIN 10.6 g/dl (13.5-17.5); LYMPH # 2.3 10^3/uL (1.5-5.0); LYMPH % 29.9 % (24.0-44.0); MEAN CORPUSCULAR HGB CONC 31.2 g/dl (32.0-36.5); MEAN CORPUSCULAR VOLUME 93.2 fl (80.0-96.0); MONO # 0.4 10^3/uL (0.0-0.8); MONO % 5.7 % (0.0-5.0); NEUTROPHILS % 51.8 % (36.0-66.0); PLATELET COUNT, AUTOMATED 158 10^3/uL (150-450); RED BLOOD COUNT 3.65 10^6/uL (4.30-6.10); WHITE BLOOD COUNT 7.8 10^3/uL (4.0-10.0)
[2020-07-27 10:42] LABS: ALBUMIN 2.4 GM/DL (3.2-5.2); CREATININE FOR GFR 5.07 MG/DL (0.70-1.30); PHOSPHORUS LEVEL 3.4 MG/DL (2.5-4.9); POTASSIUM SERUM 4.3 MEQ/L (3.5-5.1)
--- NOTE | 2020-07-27 13:39 | REPVR ---
PROCEDURE INFORMATION: Exam: XR Chest, 2 Views Exam date and time: 07/27/2020 12:40 PM Age: 50 years old Clinical indication: Shortness of breath; Additional info: Increased secretions TECHNIQUE: Imaging protocol: XR of the chest Views: 2 views. COMPARISON: CR Chest, 1 view 07/05/2020 2:09 PM (report not provided) FINDINGS: Tubes, catheters and devices: Tracheostomy tube is again present. Lungs: There is bibasilar atelectasis. The lungs are otherwise clear. Pleural space: Unremarkable. No pleural effusion. No pneumothorax. Heart/Mediastinum: The cardiomediastinal silhouette is fairly stable in appearance, with similar cardiomegaly. Bones/joints: Unremarkable. IMPRESSION: Cardiomegaly, as on 07/05/20, without new disease. Electronically signed by: Darinel Montoya On 07/27/2020 13:39:26 PM
[2020-07-27] MEDS: oxyCODONE 5MG TAB PO PRN ×2 (13:48→21:14)
[2020-07-27] MEDS: ALPRAZolam 0.25 MG TAB PO PRN (21:13)
[2020-07-27] MEDS: PRAMIPEXOLE (MIRAPEX) 0.125 MG TAB PO SCH (21:13)
[2020-07-28] MEDS: IPRATROPIUM 0.5MG/ALBUTEROL 2.5MG INH SOL UD 3ML (DUONEB) NEB SCH ×6 (03:22→23:13)
[2020-07-28] MEDS: HEPARIN SOD (PORCINE) 5000UNITS/ML 1ML VIAL/SYRINGE SQ SCH ×3 (05:20→21:48)
[2020-07-28 06:00] VITALS: BP 147/82
[2020-07-28] MEDS: SUCROFERRIC OXYHYDROXIDE 500MG CHEW TAB (VELPHORO) PO SCH ×3 (08:00→17:43)
[2020-07-28] MEDS: (RENVELA) SEVELAMER **CARBONate** 800 MG TAB PO SCH ×3 (08:00→17:43)
[2020-07-28] MEDS: [UNRECOGNIZED DRUG - REMARK] XX SCH (08:00)
[2020-07-28] MEDS: SERTRALINE 100 MG TAB PO SCH (08:56)
[2020-07-28] MEDS: ALPRAZolam 0.25 MG TAB PO PRN ×2 (08:56→21:48)
[2020-07-28] MEDS: levETIRAcetam 250MG TABLET (KEPPRA) PO SCH (08:56)
[2020-07-28] MEDS: PANTOPRAZOLE 40MG TAB (PROTONIX) PO SCH (08:56)
[2020-07-28] MEDS: oxyCODONE 5MG TAB PO PRN ×2 (08:56→21:49)
[2020-07-28] MEDS: BISACODYL 5 MG TAB PO SCH (08:56)
[2020-07-28] MEDS: LIDOCAINE 5% (LIDODERM) PATCH TD SCH (08:57)
[2020-07-28] MEDS: AMIODARONE 200 MG TAB (PACERONE) PO SCH (08:57)
[2020-07-28] MEDS: guaiFENesin SYRUP 200 MG/10 ML UDC PO SCH ×3 (12:50→23:23)
--- NOTE | 2020-07-28 14:20 | IPN ---
DATE: 07/23/2020 SUBJECTIVE: Patient was seen and examined at the bedside today morning during hemodialysis procedure. He is tolerating the hemodialysis procedure well. He denies any active complaints at this time. OBJECTIVE: VITAL SIGNS: Temperature 98.4 degrees Fahrenheit, blood pressure 153/76, pulse 93, respiratory rate 20, saturating 95% on trach collar with 28% FIO2. INTAKE AND OUTPUT: No urine output recorded. Weight in the bed scale is not available. PHYSICAL EXAMINATION: GENERAL: Patient is awake, alert and oriented x3, lying in bed getting hemodialysis done. HEAD AND NECK: Extraocular muscles intact. Pupils equally round and reactive to light. Neck is supple. He has a trach collar. CARDIOVASCULAR: S1, S2, regular rate. No edema of the bilateral lower extremities. RESPIRATORY: Chest is clear to auscultation bilaterally. Bilateral equal air entry. No rales or rhonchi. ABDOMEN: Soft, obese. Positive bowel sounds. Nontender. No organomegaly. MUSCULOSKELETAL: He has decreased range of movement of the bilateral lower extremities because he is chronically bedridden. CROSS COUNTRY AND TRACK AND FIELD COACH: No focal deficit apart from being chronically bedridden. He follows commands and moves bilateral lower extremities. LABORATORY REVIEW: CBC showed WBC 6.8, hemoglobin 11.9, platelets 152,000. BMP showed sodium 136, potassium 4.1, chloride 100, bicarb 28, BUN 26, creatinine 4.7. Albumin 2;4. CURRENT INPATIENT MEDICATIONS: Patient's medications were all reviewed by myself. There is no change in the medications today as compared with yesterday. ASSESSMENT AND PLAN: 1. End-stage renal disease: Patient is being dialyzed according to his Wednesday, , Wednesday schedule. Ultrafiltration goal today is about 3 liters as tolerated by his blood pressure. 2. Anemia and end-stage renal disease: Hemoglobin level is above 11, no need of Aranesp at this time. 3. Hypotension: Patient gets Midodrine before dialysis. Blood pressures are within the acceptable range. 4. Chronic kidney disease/mineral bone disease: Continue current dose of Renvela and Velphoro with meals. Latest phosphorus level is 4.4, which is within the normal range. MTDD
--- NOTE | 2020-07-28 14:22 | IPN ---
DATE: 07/25/2020 SUBJECTIVE: Patient was seen and examined at bedside today morning during hemodialysis. He is tolerating the hemodialysis procedure well. He denies any active complaints at this time. OBJECTIVE: VITAL SIGNS: Temperature 97.7 degrees Fahrenheit, blood pressure 153/74, pulse 62, respiratory rate 18, saturating 94% on trach collar at 35% FIO2. INTAKE AND OUTPUT: There is no urine output recorded. Weight in the bed scale is not available. PHYSICAL EXAMINATION: GENERAL: Patient is awake, alert and oriented x3, mobile, he is getting hemodialysis done. HEAD/NECK: Extraocular muscles intact. Pupils equally round and reactive to light. Neck supple. He has a trach collar. CARDIOVASCULAR: S1, S2, regular rate. No edema of the bilateral lower extremities. RESPIRATORY: Chest is clear to auscultation bilaterally. Bilateral equal air entry. No rales or rhonchi. ABDOMEN: Soft, obese. Positive bowel sounds. Nontender. No organomegaly. MUSCULOSKELETAL: Decreased range of movement of the bilateral lower extremities because he is chronically bedridden. HEALTH POLICY ANALYST: No focal deficit apart from decreased power in the lower extremities. Patient is awake and alert, able to communicate, and moves bilateral upper extremities. LABORATORY REVIEW: CBC showed WBC 7.8, hemoglobin 10.2, platelets 148,000. BMP showed sodium 138, potassium 3.5, chloride 103, bicarb 28, BUN 22, creatinine 5.3. Albumin 2.4. CURRENT INPATIENT MEDICATIONS: Patient's medications were all reviewed by myself. There is no change in the medications today as compared with yesterday. ASSESSMENT AND PLAN: 1. End-stage renal disease: Patient is being dialyzed according to his regular schedule, 3 liters of fluid will be removed as tolerated by his blood pressure. 2. Anemia and end-stage renal disease: Hemoglobin level more than 10 right now. If it drops less than 10, then he will be started on Aranesp injections. 3. Hypotension: Patient gets Midodrine before dialysis, blood pressure is within the acceptable range. 4. Chronic kidney disease/mineral bone disease: Patient continues to be on Velphoro and Renvela with meals. Phosphorus level is within the acceptable range. MTDD
[2020-07-28] MEDS: PRAMIPEXOLE (MIRAPEX) 0.125 MG TAB PO SCH (21:48)
[2020-07-29] MEDS: IPRATROPIUM 0.5MG/ALBUTEROL 2.5MG INH SOL UD 3ML (DUONEB) NEB SCH ×5 (02:47→19:43)
[2020-07-29] MEDS: guaiFENesin SYRUP 200 MG/10 ML UDC PO SCH ×3 (05:12→17:52)
[2020-07-29] MEDS: HEPARIN SOD (PORCINE) 5000UNITS/ML 1ML VIAL/SYRINGE SQ SCH ×3 (05:13→22:04)
[2020-07-29 06:00] VITALS: BP 160/62
[2020-07-29] MEDS: SUCROFERRIC OXYHYDROXIDE 500MG CHEW TAB (VELPHORO) PO SCH ×3 (07:46→17:52)
[2020-07-29] MEDS: (RENVELA) SEVELAMER **CARBONate** 800 MG TAB PO SCH ×3 (07:46→17:52)
[2020-07-29] MEDS: [UNRECOGNIZED DRUG - REMARK] XX SCH (07:47)
[2020-07-29] MEDS: SERTRALINE 100 MG TAB PO SCH (08:21)
[2020-07-29] MEDS: levETIRAcetam 250MG TABLET (KEPPRA) PO SCH (08:21)
[2020-07-29] MEDS: BISACODYL 5 MG TAB PO SCH (08:21)
[2020-07-29] MEDS: AMIODARONE 200 MG TAB (PACERONE) PO SCH (08:21)
[2020-07-29] MEDS: ALPRAZolam 0.25 MG TAB PO PRN ×2 (08:21→22:04)
[2020-07-29] MEDS: PANTOPRAZOLE 40MG TAB (PROTONIX) PO SCH (08:21)
[2020-07-29] MEDS: oxyCODONE 5MG TAB PO PRN ×2 (08:22→22:04)
[2020-07-29] MEDS: LIDOCAINE 5% (LIDODERM) PATCH TD SCH (08:23)
--- NOTE | 2020-07-29 14:43 | IPN ---
DATE: 06/20/2020 Mr. Richard is seen this morning during hemodialysis. He is feeling well and denies any complaints. He remains on trach collar. He has not been eating too well so does not gain much weight between dialysis treatments. PHYSICAL EXAMINATION: Temperature 96.3 degrees Fahrenheit, heart rate 54 per minute, respirations 18 per minute, blood pressure 156/68 mm of mercury, and oxygen saturation 98% on trach collar with 8 liter oxygen flow. His head is atraumatic. Neck is supple and jugular venous distention (JVD) difficult to be assessed. Tracheostomy is in place. Heart sounds regular, and lung Clear to auscultation. Abdomen obese, soft, and nontender, and bowel sounds are normal. Extremities without any cyanosis or clubbing. Neurologically he is at his baseline mentation. He did not have any new labs done today. Yesterday's labs have been reviewed, and they were appropriate. PROBLEMS: 1. End stage renal disease. Patient is being dialyzed today and will continue with three times a week dialysis. 2. Respiratory failure. His respiratory failure is related to obesity and obstructive sleep apnea. Volume status is well compensated at this point, and we are removing 2 liters of fluid today. 3. Anemia. His anemia has been stable and does not need any intervention. DISPOSITION: Patient is currently waiting for a fdc bed out of the area. Local fdc has declined to accept him because of his tracheostomy care. [facility]
--- NOTE | 2020-07-29 14:47 | IPN ---
DATE: 06/18/2020 SUBJECTIVE: Mr. Richard is seen this morning during hemodialysis. He is resting comfortably and remains on trach collar. He did not eat breakfast but has been eating his lunch and dinner. He denies any dyspnea or chest pain. He is currently waiting for prison placement with tracheostomy care. PHYSICAL EXAMINATION: GENERAL: The patient is awake and at his baseline mentation without any acute distress. VITAL SIGNS: Temperature 96.7 degrees Fahrenheit, heart rate is 60 per minute and respiratory rate is 16 per minute, blood pressure 141/67 mmHg, oxygen saturation 96% on trach collar with 8 liters of oxygen. HEENT: Head is atraumatic. Tracheostomy is in place. NECK: Neck veins are difficult to be assessed. HEART: Heart sounds regular and distant. LUNGS: Moderate bilateral air entry. ABDOMEN: Obese, soft and nontender. Bowel sounds are normal. EXTREMITIES: Without any cyanosis or clubbing. Right arm AV fistula is patent and currently being used for dialysis. LABORATORY DATA: Todays labs showed a WBC count of 5.6, hemoglobin 12.0 and hematocrit 37.4. Platelets 141,000. Sodium 139, potassium 4.7, CO2 29, BUN 37 and creatinine 7.10, glucose 81 and calcium 9.1. PROBLEMS: 1. Endstage renal disease. Patient is being dialyzed and he is tolerating dialysis very well. 2. Respiratory failure. Patient is status post tracheostomy due to obesity associated hypoventilation and obstructive sleep apnea. His volume status remains well-compensated and we are removing about 2.5 liters of fluid today. 3. Anemia. His anemia is currently stable he does not need any intervention. 4. Spinal stenosis and bed-ridden status. Patient has been in a prison with bed-ridden status for the last few years. At this point, he is waiting for prison placement. [facility]
--- NOTE | 2020-07-29 14:49 | IPN ---
DATE: 06/17/2020 SUBJECTIVE: Mr. Richard is seen this morning at his bedside. He is resting comfortably and remains on trach collar. He was dialyzed on Wednesday and tolerated his dialysis well. He did not eat his breakfast this morning and his breakfast is at the bedside untouched. PHYSICAL EXAMINATION: VITAL SIGNS: Temperature is 96 degrees Fahrenheit, heart rate 94 per minute, respiratory rate 18 per minute. He remains on the trach collar. Oxygen saturation is 95%. HEENT: Head is atraumatic. Tracheostomy is in place. HEART: Heart sounds are regular. LUNGS: Moderate bilateral air entry. ABDOMEN: Obese, soft and nontender. Bowel sounds normal. EXTREMITIES: Without any cyanosis or clubbing. NEUROLOGIC: He is at his baseline mentation without focal deficits. LABORATORY DATA: Todays labs showed WBC count of 5.0, hemoglobin 11.6, hematocrit 34.7, platelets 118,000. Sodium 137, potassium 4.3, CO2 31, BUN 28 and creatinine 5.83. PROBLEMS: 1. Endstage renal disease. Patient was last dialyzed on Wednesday and next dialysis will be scheduled for tomorrow. There is no emergent need for dialysis today. 2. Respiratory failure, this is related to obesity associated hypoventilation and obstructive sleep apnea. He has a tracheostomy, chronic for a few years. His volume status is very well compensated at present and no urgent dialysis needed. 3. Anemia. His anemia has been stable and unchanged. No changes are being made today. No intervention is needed. 4. Disposition: Patient is waiting for retirement placement. [facility]
--- NOTE | 2020-07-29 15:02 | IPN ---
DATE: 06/15/2020 SUBJECTIVE: Mr. Richard is seen this morning at his bedside during hemodialysis. He remains on trach collar and feels well. Apparently nursing staff has refused to accept him because of frequent requirement for his trachea suctioning. Patient reports that he has been eating well. PHYSICAL EXAMINATION: Temperature 96 degrees Fahrenheit, heart rate 60 per minute, respiratory rate 20 per minute, blood pressure 136/62 mmHg and oxygen saturation 99% on trach collar with 8 liter oxygen. Head is atraumatic. Neck veins are difficult to be assessed. Tracheostomy is in place with trach collar. Heart sounds are regular. Lungs with diminished breath sound. Abdomen is obese, soft and nontender. Bowel sounds are normal. Extremities without any cyanosis or clubbing. His right arm AV fistula is currently being used for dialysis. LABORATORY DATA: Todays labs: WBC 5.7, hemoglobin 11.7, hematocrit 37.3, platelets 126,000. Sodium 136, potassium 5.2, CO2 29, BUN 51, creatinine 7.95, glucose 85 and calcium 9.3. Total protein 5.3 and albumin 2.6. PROBLEMS: 1. End-stage renal disease: Patient has been dialysis dependent and is currently being dialyzed. He is tolerating dialysis treatment very well. We are moving about 2.5 liters fluid as tolerated. His oral intake has been low and volume status is reasonably well compensated. 2. Hyperkalemia: Mild hyperkalemia will be corrected with dialysis and no other intervention needed at this point. 3. Anemia: His anemia has been stable and does not need any intervention at present. 4. Chronic hypoxemia: Status post tracheostomy. At present he seems to be comfortable and doing well. [facility]
--- NOTE | 2020-07-29 15:06 | IPN ---
DATE: 06/16/2020 SUBJECTIVE: Mr. Richard is seen this morning at his bedside. He underwent hemodialysis yesterday, which he tolerated very well. We were able to remove 2 liters of fluid. His blood pressure remained stable most of the time. He is resting comfortably and remains on a trach collar. PHYSICAL EXAMINATION: Temperature 97.7 degrees Fahrenheit, heart rate 56 per minute, respiratory rate 20 per minute, blood pressure 120/58 mmHg and oxygen saturation 98% on trach collar with 8 liter oxygen. Head is atraumatic. Neck veins are difficult to be assessed. Tracheostomy is in place. Heart sounds are distant, but regular. Lungs have diminished breath sounds due to morbid obesity. Abdomen is obese, soft, nontender and bowel sounds are present. Extremities without any cyanosis or clubbing. His right arm AV fistula is patent. LABORATORY DATA: Todays labs: WBC 4.6, hemoglobin 11.9, hematocrit 38.6, platelets 130,000. Sodium 137, potassium 3.9, chloride 100, CO2 33, BUN 22, creatinine 4.65, and calcium 9.2. PROBLEMS: 1. End-stage renal disease: Patient was dialyzed yesterday and next dialysis will be scheduled for Wednesday next week. His volume status is very well compensated. 2. Hyperkalemia: His potassium level has corrected with dialysis and no intervention is needed now. 3. Respiratory failure: This is related to obstructive sleep apnea and obesity associated hypoventilation. His volume status is very well compensated and will continue to manage it with dialysis. 4. Anemia: His anemia is stable at present and does not need any intervention. DISPOSITION: Patient is waiting for placement. Apparently he has been turned down by local long-term due to issues with his tracheostomy suctioning requirements. [facility]
--- NOTE | 2020-07-29 15:10 | IPN ---
DATE: 06/14/2020 SUBJECTIVE: Patient was seen and examined at the bedside today morning. He is afebrile, hemodynamically stable. Today he is supposed to be dialyzed; however, patient is not eating much, and he is requesting to be dialyzed back on his schedule of Wednesday, , Wednesday. OBJECTIVE: Vital Signs: Temperature is 97 degrees Fahrenheit, blood pressure 105/51, pulse is 62, respiratory rate of 20, saturating 95% on trach collar at 8 liters. Intake and output: There is no urine output recorded. Weight in the bed scale is not available. PHYSICAL EXAMINATION: GENERAL: Patient is morbidly obese, lying in bed in no apparent distress.. HEAD AND NECK: Extraocular muscles intact. Pupils equally round and reactive to light. Mucous membranes are moist. Neck is supple. He has a trach collar. CARDIOVASCULAR: S1, S2, regular rate. No edema of the bilateral lower extremities. RESPIRATORY: Chest is clear to auscultation bilaterally. Bilateral equal air entry. No rales or rhonchi. ABDOMEN: Soft, obese. Positive bowel sounds. Nontender. MUSCULOSKELETAL: No clubbing or cyanosis. CENTRAL NERVOUS SYSTEM: Patient is awake, alert. Oriented times three, lying in bed. Follows commands. Moves upper extremities. LABORATORY REVIEW: CBC and BMP from yesterday. No new labs available from today. CURRENT INPATIENT MEDICATIONS: Patient's medications were all reviewed by myself. There is no significant change in the medications today as compared with yesterday. ASSESSMENT AND PLAN: 1. End stage renal disease. Patient is hemodialysis dependent. He will be dialyzed tomorrow morning as per his regular schedule. No urgent need of dialysis today. 2. Chronic kidney disease, mineral bone disease. Continue current dose of Renvela. 3. Anemia and end stage renal disease. Hemoglobin level is optimal. No need of Aranesp administration at this time. 4. Chronic hypoxic and hypercapnic respiratory failure. Presence of tracheostomy and trach collar. Patient is stable at this time, requiring 8 liters of oxygen. 5. Atrial fibrillation. He is currently on amiodarone. MTDD
--- NOTE | 2020-07-29 15:18 | IPN ---
DATE: 06/13/2020 SUBJECTIVE: Patient was seen and examined at the bedside today morning. He was dialyzed yesterday. Patient was hypotensive after dialysis. Overnight, he was given 1 liter of normal saline bolus. He was also febrile. He got blood cultures drawn and chest x-ray done. Patient himself denies any active complaints at this time. OBJECTIVE: Vital signs: Temperature 96.6 degrees Fahrenheit, blood pressure 117/58, pulse 78, respiratory rate of 18, saturating 94% on trach collar at 30% FI02. Intake and output: There is no urine output recorded. Patient had 2 liters removed with dialysis yesterday and he was given 1 liter normal saline bolus overnight. PHYSICAL EXAMINATION: GENERAL: Patient is awake, alert and oriented x3, lying in bed in no apparent distress. HEAD & NECK: Extraocular muscles intact. Pupils equally round and reactive to light. He has a tracheostomy. CARDIOVASCULAR: S1, S2, regular rate. No edema of the bilateral lower extremities. RESPIRATORY: Chest is clear to auscultation bilaterally. Bilateral equal air entry. No rales or rhonchi. ABDOMEN: Soft. Positive bowel sounds. Nontender. No organomegaly. MUSCULOSKELETAL: No cyanosis or clubbing. No edema of the bilateral lower extremities. CENTRAL NERVOUS SYSTEM: No focal deficit in bilateral upper extremities. Patient is chronically better and does not move his lower extremities much. LABORATORY REVIEW: CBC showed WBC 9.2, hemoglobin 11.8, platelets 109,000. BMP shows sodium 137, potassium 4.1, chloride 103, bicarb 30, BUN 25, creatinine 5.7. Lactic acid 1.2. Total bilirubin 3.7. AST 84, ALT 72, alkaline phosphatase 239. Blood cultures are pending. CHEST X-RAY: Chest x-ray was done; official report is pending and I cannot look at the image. CURRENT INPATIENT MEDICATIONS: Patient was given normal saline bolus overnight. He was given Midodrine. No other significant change in the medications today as compared with yesterday. ASSESSMENT & PLAN: 1. End-stage renal disease: Patient was dialyzed yesterday, however, patient does not have any sign of fluid overload. He is actually clinically dry. His electrolytes are okay. Acid based level is within the acceptable range. I would not dialyze the patient tomorrow, I would probably do the dialysis on Wednesday, which is patient's regular day of dialysis as an outpatient. 2. Hypotension: Patient got zapien cultures and chest x-ray done. He was given normal saline bolus. Continue Midodrine at this time. I would have a low threshold to start antibiotics on this patient, who chronically has a tracheostomy and is prone to have pulmonary infections. 3. Anemia and end-stage renal disease: Hemoglobin level is optimal. No need for Aranesp administration at this time. 4. Chronic respiratory failure: Patient has a trach collar and tracheostomy. Currently stable on 8 liters via the trach collar. MTDD
--- NOTE | 2020-07-29 16:02 | IPN ---
DATE: 06/12/2020 SUBJECTIVE: Patient was seen and examined at the bedside today morning during hemodialysis procedure. He is tolerating the hemodialysis procedure well. He reports decreased hearing. Otherwise, he denies any active complaints at this time. OBJECTIVE: Vital signs: Temperature is 97.8 degrees Fahrenheit, blood pressure 105/50, pulse is 59, respiratory rate of 20, saturating 94% on trach collar at 8 liters. Intake and output: There is no urine output recorded. Weight in the bed scale was 156.2 kg yesterday. PHYSICAL EXAMINATION: GENERAL: Patient is awake, alert, oriented times three, lying in bed getting hemodialysis done. HEAD AND NECK: Extraocular muscles intact. Pupils equally round and reactive to light. Both ear canals were examined. He has a right middle ear effusion. Left side, the tympanic membrane could not be visualized well. He had wax in the left ear. Neck is supple. He has a tracheostomy, which is covered with a trach collar. CARDIOVASCULAR: S1, S2, regular rate. No edema of the bilateral lower extremities. RESPIRATORY: Chest is clear to auscultation bilaterally. Bilateral equal air entry. No rales or rhonchi. ABDOMEN: Soft, obese. Positive bowel sounds. Nontender. No organomegaly. MUSCULOSKELETAL: No clubbing or cyanosis. Pulses are 2+. CENTRAL NERVOUS SYSTEM: Patient is chronically bedridden. He does not move lower extremities much. Power is 5/5 in bilateral upper extremities. LABORATORY REVIEW: CBC showed a WBC of 6.6, hemoglobin 11.5, platelets are 133. BMP showed sodium 140, potassium 4.6, chloride 104, bicarbonate 29, BUN 48, creatinine is 8.6. CURRENT INPATIENT MEDICATIONS: Patient's medications were all reviewed by myself. No significant change in the medications today as compared with yesterday. ASSESSMENT AND PLAN: 1. End stage renal disease. Patient's regular dialysis days were Wednesday, , Wednesday; however, he refused to have dialysis done yesterday. He is being dialyzed today. Next hemodialysis will be on Wednesday. 2. Anemia and end stage renal disease. Hemoglobin level is optimal. No need of Aranesp at this time. 3. Hypothyroidism. Patient gets midodrine before dialysis. Blood pressures are optimal for now. 4. Chronic kidney disease, mineral bone disease. Patient gets Renvela with meals. Phosphorus level is optimal. 5. Chronic respiratory failure. Patient has a trach collar. He requires frequent suctioning. MTDD
[2020-07-29] MEDS: PRAMIPEXOLE (MIRAPEX) 0.125 MG TAB PO SCH (22:04)
[2020-07-30] MEDS: IPRATROPIUM 0.5MG/ALBUTEROL 2.5MG INH SOL UD 3ML (DUONEB) NEB SCH ×7 (00:02→23:24)
[2020-07-30] MEDS: guaiFENesin SYRUP 200 MG/10 ML UDC PO SCH ×4 (01:13→16:57)
[2020-07-30 06:00] VITALS: BP 136/60
[2020-07-30] MEDS: ALPRAZolam 0.25 MG TAB PO PRN ×2 (06:39→16:53)
[2020-07-30] MEDS: PANTOPRAZOLE 40MG TAB (PROTONIX) PO SCH (06:40)
[2020-07-30] MEDS: HEPARIN SOD (PORCINE) 5000UNITS/ML 1ML VIAL/SYRINGE SQ SCH ×3 (06:40→21:56)
[2020-07-30] MEDS: oxyCODONE 5MG TAB PO PRN ×2 (06:40→16:56)
[2020-07-30] MEDS: levETIRAcetam 250MG TABLET (KEPPRA) PO SCH (06:41)
[2020-07-30] MEDS: AMIODARONE 200 MG TAB (PACERONE) PO SCH (06:41)
[2020-07-30] MEDS: BISACODYL 5 MG TAB PO SCH (06:41)
[2020-07-30] MEDS: (RENVELA) SEVELAMER **CARBONate** 800 MG TAB PO SCH ×3 (06:41→18:25)
[2020-07-30] MEDS: SERTRALINE 100 MG TAB PO SCH (06:41)
[2020-07-30] MEDS: LIDOCAINE 5% (LIDODERM) PATCH TD SCH (06:42)
[2020-07-30] MEDS: SUCROFERRIC OXYHYDROXIDE 500MG CHEW TAB (VELPHORO) PO SCH ×3 (06:42→18:25)
[2020-07-30] MEDS: [UNRECOGNIZED DRUG - REMARK] XX SCH (06:42)
--- NOTE | 2020-07-30 10:17 | IPN ---
DATE: 06/10/2020 SUBJECTIVE: This is a 50-year-old obese white male with multiple medical problems. Among his medical problems are his morbid obesity, chronic respiratory failure secondary to suspected restrictive lung disease from his obesity, noncompliance with medical advice, NISA. He also is a chronic dialysis patient. He was admitted to the hospital with respiratory failure and pneumonia requiring mechanical ventilation. He has not recovered to the point where he is on a 40% Venti-trach collar with adequate sats. His antibiotics I believe have been discontinued. He does have a triple lumen currently in his left forearm which I suspect will be removed prior to his transfer to [facility] later today. PAST MEDICAL HISTORY: Chronic renal failure requiring dialysis, chronic anemia secondary to chronic renal failure, secondary hyperparathyroidism, prior tracheostomy, history of spinal stenosis and chronic pain issues, hypertension, GERD, depression, atrial fibrillation, I see that he is on amiodarone. History of seizure disorder. ALLERGIES: None are listed. SOCIAL HISTORY: He has been a resident of [facility]. He does require quite a bit of nursing attention. I see he has required frequent suctioning over there and continues to require frequent suctioning here at the hospital according to nurses notes. His sister is employed at the [facility] and has been his advocate. MEDICATIONS: Amiodarone 200 mg a day, Keppra 500 mg daily, Zoloft 100 mg a day, Midodrine 10 mg t.i.d. on hemodialysis days, Mirapex 0.125 mg at bedtime, presumed for restless legs, Protonix 40 mg a day, Lidocaine patch to his lower back, Renvela 2400 mg t.i.d., Xanax 0.25 mg q. 6 hours p.r.n., oxycodone 10 mg q. 4 hours p.r.n. pain. REVIEW OF SYSTEMS: He denies any symptoms other than feeling not hungry this morning and is refusing his a.m. medications. He has been difficult in this sense in that he is often resistant to care from what I understand. PHYSICAL EXAMINATION: His vital signs are stable. He is morbidly obese. He says he is having difficulty hearing but after a while he was able to hear my conversation adequately after I took a little time with him. His neck is very full. He has a trach collar at 40%. His heart was regular with very distant tones and clinically in sinus rhythm. Note: He has a history of PAF apparently and is not on anticoagulation. Chest is clear to auscultation. Abdomen is morbidly obese. Extremities without clubbing, cyanosis or edema. It looks like he has a failed fistula at his right wrist and currently is being dialyzed through a fistula in his right antecubital fossa. He also has a PICC line in the left arm which I assume will be removed. IMPRESSION/PLAN: 1. Chronic respiratory failure secondary to morbid obesity and restrictive lung disease. 2. NISA. He states he is compliant with his BiPAP or CPAP which would also necessitate blending in oxygen with it. Will have to check on this further when he gets over at the [facility]. 3. History of being resistant to medical advice. 4. Requires frequent suctioning. This may be an issue and may be difficult to provide. 5. Currently on 8 liters of oxygen through a trach collar. This might be difficult to provide for the long-term at [facility]. 6. Endstage renal failure, etiology is uncertain. When the system comes up I will investigate that. He is on dialysis. 7. Anemia of chronic disease from endstage renal failure. 8. Secondary hyperparathyroidism. 9. PAF. Again, I do not know why he is not on anticoagulation but will investigate that. 10. Chronic pain issues. 11. GERD. 12. Depression and anxiety, continues on medications for same. Prognosis is poor in light of his multiple medical problems and he is high risk for readmission back to the hospital. [facility]
[2020-07-30 10:18] LABS: HEMATOCRIT 36.6 % (42.0-52.0); HEMOGLOBIN 11.2 g/dl (13.5-17.5); MEAN CORPUSCULAR HGB CONC 30.6 g/dl (32.0-36.5); MEAN CORPUSCULAR VOLUME 94.8 fl (80.0-96.0); PLATELET COUNT, AUTOMATED 164 10^3/uL (150-450); RED BLOOD COUNT 3.86 10^6/uL (4.30-6.10); WHITE BLOOD COUNT 6.9 10^3/uL (4.0-10.0)
[2020-07-30 10:27] LABS: CALCIUM LEVEL 9.6 MG/DL (8.5-10.1); CREATININE FOR GFR 6.04 MG/DL (0.70-1.30); GLOMERULAR FILTRATION RATE 10.7 (>60); POTASSIUM SERUM 3.9 MEQ/L (3.5-5.1)
[2020-07-30 14:00] VITALS: BP 162/60
[2020-07-30] MEDS: ONDANSETRON 4 MG TAB PO PRN (16:53)
--- NOTE | 2020-07-30 18:45 | IPN ---
DATE: 07/27/2020 SUBJECTIVE: Patient was seen and examined at the bedside today morning during hemodialysis procedure. He is tolerating hemodialysis procedure well. He was also getting the suctioning of his tracheostomy tube done when I saw him. OBJECTIVE: VITAL SIGNS: Temperature 97.1 degrees Fahrenheit, blood pressure 140/67, pulse 64, respiratory rate 18, saturating 96% on trach collar at 28% FIO2. INTAKE AND OUTPUT: There is no urine output recorded. Weight in the bed scale is not available. PHYSICAL EXAMINATION: GENERAL: Patient is awake, alert and oriented x3, lying in bed getting hemodialysis done. HEAD AND NECK: Extraocular muscles intact. Pupils equally round and reactive to light. Mucous membranes are moist. Neck is supple. He has a tracheostomy tube. CARDIOVASCULAR: S1, S2, regular rate. No edema of the bilateral lower extremities. RESPIRATORY: Chest is clear to auscultation bilaterally. Bilateral equal air entry. No rales or rhonchi. ABDOMEN: Soft, obese. Positive bowel sounds. Nontender. MUSCULOSKELETAL: Decreased range of movement of the bilateral lower extremities. PROOFSHEET CORRECTOR: No focal deficit apart from chronically being bedridden. Power is 5/5 in bilateral upper extremities. He is awake and able to communicate, but he cannot talk because of tracheostomy. LABORATORY REVIEW: CBC showed WBC 7.8, hemoglobin 10.6, platelets 158,000. BMP showed sodium 136, potassium 4.3, chloride 100, bicarb 29, BUN 24, creatinine 5. CURRENT INPATIENT MEDICATIONS: Patient's medications were all reviewed by myself. There is no significant change in the medications today as compared with yesterday. ASSESSMENT AND PLAN: 1. End-stage renal disease: Patient is being dialyzed according to his Wednesday, , Wednesday schedule. Ultrafiltration goal is 3 liters. 2. Anemia and end-stage renal disease: Hemoglobin level is still above 10. He is currently not on any BRIAN administration. 3. Hypotension: Continue current dose of Midodrine on dialysis days. 4. Chronic kidney disease/mineral bone disease: Continue Renvela and Velphoro. Phosphorus level is within the normal range. MTDD
[2020-07-30] MEDS: PRAMIPEXOLE (MIRAPEX) 0.125 MG TAB PO SCH (21:56)
[2020-07-31] MEDS: guaiFENesin SYRUP 200 MG/10 ML UDC PO SCH ×4 (01:06→18:14)
[2020-07-31] MEDS: oxyCODONE 5MG TAB PO PRN ×4 (01:07→21:55)
[2020-07-31] MEDS: ALPRAZolam 0.25 MG TAB PO PRN ×3 (01:07→21:55)
[2020-07-31] MEDS: IPRATROPIUM 0.5MG/ALBUTEROL 2.5MG INH SOL UD 3ML (DUONEB) NEB SCH ×6 (03:26→22:53)
[2020-07-31] MEDS: HEPARIN SOD (PORCINE) 5000UNITS/ML 1ML VIAL/SYRINGE SQ SCH ×3 (05:53→21:54)
[2020-07-31 06:00] VITALS: BP 156/60
[2020-07-31 07:35] VITALS: O2SAT 99
[2020-07-31] MEDS: SUCROFERRIC OXYHYDROXIDE 500MG CHEW TAB (VELPHORO) PO SCH ×3 (08:00→18:14)
[2020-07-31] MEDS: [UNRECOGNIZED DRUG - REMARK] XX SCH (08:00)
[2020-07-31] MEDS: (RENVELA) SEVELAMER **CARBONate** 800 MG TAB PO SCH ×3 (08:00→18:14)
[2020-07-31] MEDS: LIDOCAINE 5% (LIDODERM) PATCH TD SCH (09:00)
[2020-07-31] MEDS: BISACODYL 5 MG TAB PO SCH (10:48)
[2020-07-31] MEDS: ONDANSETRON 4 MG TAB PO PRN (10:48)
[2020-07-31] MEDS: levETIRAcetam 250MG TABLET (KEPPRA) PO SCH (10:48)
[2020-07-31] MEDS: SERTRALINE 100 MG TAB PO SCH (10:49)
[2020-07-31] MEDS: PANTOPRAZOLE 40MG TAB (PROTONIX) PO SCH (10:49)
[2020-07-31] MEDS: AMIODARONE 200 MG TAB (PACERONE) PO SCH (10:49)
[2020-07-31] MEDS: PRAMIPEXOLE (MIRAPEX) 0.125 MG TAB PO SCH (21:55)
[2020-08-01] MEDS: guaiFENesin SYRUP 200 MG/10 ML UDC PO SCH ×5 (00:19→23:26)
[2020-08-01] MEDS: IPRATROPIUM 0.5MG/ALBUTEROL 2.5MG INH SOL UD 3ML (DUONEB) NEB SCH ×6 (03:52→23:26)
[2020-08-01] MEDS: HEPARIN SOD (PORCINE) 5000UNITS/ML 1ML VIAL/SYRINGE SQ SCH ×3 (05:52→21:03)
[2020-08-01] MEDS: PANTOPRAZOLE 40MG TAB (PROTONIX) PO SCH (05:53)
[2020-08-01] MEDS: levETIRAcetam 250MG TABLET (KEPPRA) PO SCH (05:54)
[2020-08-01] MEDS: SERTRALINE 100 MG TAB PO SCH (05:54)
[2020-08-01] MEDS: LIDOCAINE 5% (LIDODERM) PATCH TD SCH (05:55)
[2020-08-01] MEDS: BISACODYL 5 MG TAB PO SCH (05:55)
[2020-08-01] MEDS: AMIODARONE 200 MG TAB (PACERONE) PO SCH (05:55)
[2020-08-01 06:00] VITALS: BP 135/68
[2020-08-01] MEDS: MIDODRINE 5 MG TAB PO SCH (07:52)
[2020-08-01] MEDS: (RENVELA) SEVELAMER **CARBONate** 800 MG TAB PO SCH ×3 (07:52→17:48)
[2020-08-01 07:53] VITALS: BP 114/56
[2020-08-01] MEDS: [UNRECOGNIZED DRUG - REMARK] XX SCH (07:53)
[2020-08-01] MEDS: SUCROFERRIC OXYHYDROXIDE 500MG CHEW TAB (VELPHORO) PO SCH ×3 (07:53→17:48)
[2020-08-01] MEDS: ALPRAZolam 0.25 MG TAB PO PRN ×2 (08:11→21:06)
[2020-08-01] MEDS: oxyCODONE 5MG TAB PO PRN ×2 (08:12→21:05)
[2020-08-01 11:00] LABS: CALCIUM LEVEL 9.9 MG/DL (8.5-10.1); CREATININE FOR GFR 4.91 MG/DL (0.70-1.30); GLOMERULAR FILTRATION RATE 13.5 (>60); POTASSIUM SERUM 4.7 MEQ/L (3.5-5.1)
--- NOTE | 2020-08-01 12:39 | IPN ---
DATE: 07/30/2020 SUBJECTIVE: I saw Matthew this morning in the hemodialysis unit as he was having his routine treatment. He denies any events or complaints. He is in a good mood. He has been doing some coloring on his I-pad and he is tolerating his treatment without any issue. PHYSICAL EXAMINATION: VITAL SIGNS: Temperature 98.6, pulse 67, respiratory rate is 18, blood pressure is 136/60, saturating 96% on 5 liter trach collar. I and Os have not been recorded. GENERAL: The patient is alert, awake, oriented, comfortable, in no apparent distress, working on the I-pad while getting dialyzed. Morbidly obese male, makes eye contact. HEENT: Tongue is moist. NECK: Supple. There is a tracheostomy. HEART: Heart sounds are regular, S1 and S2. LUNGS: Anterior auscultation only shows bilateral symmetric breath sounds. ABDOMEN: Soft, obese and nontender. EXTREMITIES: Negative for edema in the legs. There is a patent fistula in the right arm that is currently in use. SKIN: Normal temperature and turgor. NEUROLOGIC: He is awake, alert and oriented, interactive and at baseline mentation. LABORATORY DATA: Sodium is 138, potassium is 3.9, BUN 31, calcium 9.6, hemoglobin 11.2, platelets 164,000. INPATIENT MEDICATIONS: Reviewed by myself. He was started on Robitussin yesterday, otherwise the medicines are unchanged from prior. PROBLEMS: 1. Endstage renal disease on hemodialysis on a Wednesday, , and Wednesday schedule. Patient is well-dialyzed. His volume status is compensated. He is tolerating fluid removal without issue. His electrolytes are acceptable. His labs are checked intermittently. No changes are being made to the current dialysis prescription. 2. Secondary hyperparathyroidism of renal origin. His calcium and phosphorus levels are both acceptable and I am not making any changes to his phosphorus binders. 3. Hypotension, hypotension of hemodialysis. Blood pressures have been stable. He is tolerating fluid removal and ultrafiltration without issue. He continues on Midodrine on dialysis days only. 4. Anemia related to chronic renal failure. His hemoglobin is optimized and he is not presently receiving erythropoietin stimulating agent. MTDD
[2020-08-01 13:26] LABS: PTH INTACT 208.8 PG/ML (18.5-88.0)
--- NOTE | 2020-08-01 14:53 | IPNPDOC ---
Date Seen The patient was seen on 08/01/20. Progress Note SUBJECTIVE: Per social work and discharge planning team, patient awaiting placement in [facility], no HD beds for next four weeks possibly. Sputum cx: pseudomonas and MRSA, similar to cx from 04/2020. Discussed with Dr. Quesada, possible chronic colonization vs. PNA. CXR pending. Afebrile, WBC wnl, at baseline O2 requirement. OBJECTIVE: PHYSICAL EXAMINATION: VS: Please see below GENERAL: awake, alert, oriented to self and place not to time, communicates by mouthing his words, NAD, responding appropriately HEENT: anicteric sclerae, no nasal discharges, no throat exudates, no oral lesions, PERRL, EOM intact NECK: supple, no cervical tenderness, no bruit noted, no rigidity noted, trach in place by collar, no blockage CHEST: clear breath sounds, equal chest expansion, no rales or wheezing CVS; s1 and s2 distinct, no murmurs audible note, no rubs, or thrills, ABDOMEN: soft, positive normoactive bowel sounds, no tenderness, no rigidity , no guarding noted EXTREMITIES: no limitation of ROM, no joint swelling, no calf tenderness, no atrophy, weak all over, chronic upper and lower ext swelling 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 Acute on chronic hypoxic and hypercapic respiratory failure, s/p tracheostomy repair/replacement 2. ESRD on HD TTHS 3. Positive sputum cx, r/o chronic colonization vs. PNA 4. Hypertension 5. seizure disorder 6. history of afib, currently on amiodarone 7. Secondary hyperparathyroidism 8. Morbidly obese PLAN: * F/u CXR. If + for PNA, start on levofloxacin, bactrim x 5-7 days. * current medications reviewed, continue. No changes. * hemodynamically stable * placement is pending still. * Full code DISPOSITION: Awaiting placement. Discussed case with Dr. Quesada today as mentioned above. VS, I&O, 24H, Fishbone Vital Signs/I&O Vital Signs Date Time Temp Pulse Resp B/P (MAP) Pulse Ox O2 Delivery O2 Flow Rate FiO2 08/01/20 08:12 19 08/01/20 08:00 5.0 28 08/01/20 07:53 114/56 (75) 08/01/20 06:00 97.9 90 98 07/31/20 15:21 Room Air I&O- Last 24 Hours up to 6 AM 08/01/20 06:00 Intake Total 720 ml Output Total 0 ml Balance 720 ml Laboratory Data 24H LABS Laboratory Tests 2 08/01/20 09:00: Anion Gap 5L, Glomerular Filtration Rate 13.5L, Calcium Level 9.9, Parathyroid Hormone (Intact) 208.8H CBC/BMP Laboratory Tests 08/01/20 09:00 Microbiology Microbiology 07/27/20 Gram Stain - Final, Complete 07/27/20 Sputum Culture - Final, Complete Pseudomonas Aeruginosa Staph.aureus Methicillin Resis Current Medications Current Medications Medications (Trade) Dose Ordered Sig/Alicia Route PRN Reason Start Time Stop Time Status Last Admin Dose Admin Acetaminophen (Tylenol Tab) 650 mg Q6HP PRN PO PAIN / FEVER 06/13/20 04:45 06/16/20 21:00 Albuterol/ Ipratropium (Duoneb (Ipr 0.5mg/Alb 2.5mg)) 3 ml Q2H PRN NEB SHORTNESS OF BREATH 06/11/20 19:45 07/27/20 02:06 Albuterol/ Ipratropium (Duoneb (Ipr 0.5mg/Alb 2.5mg)) 3 ml Q6H PRN NEB SOB/WHEEZING 06/11/20 19:45 06/11/20 19:45 DC Albuterol/ Ipratropium (Duoneb (Ipr 0.5mg/Alb 2.5mg)) 3 ml RQ4H NEB 07/25/20 16:00 08/01/20 11:46 Albuterol/ Ipratropium (Duoneb (Ipr 0.5mg/Alb 2.5mg)) 3 ml RQ6H NEB 06/11/20 20:00 07/25/20 15:32 DC 07/25/20 13:55 Alprazolam (Xanax) 0.25 mg Q6H PRN PO ANXIETY 06/11/20 19:45 08/01/20 08:11 Amiodarone HCl (Pacerone, Cordarone) 200 mg DAILY PO 06/12/20 09:00 08/01/20 05:55 Benzonatate (Tessalon Perles) 100 mg Q8HP PRN PO COUGH 06/13/20 01:15 06/13/20 12:18 Bisacodyl (Dulcolax Suppository) 10 mg DAILYPRN PRN HI CONSTIPATION 06/11/20 19:45 06/15/20 16:46 DC Bisacodyl (Dulcolax Tab) 5 mg DAILY PO 06/16/20 09:00 08/01/20 05:55 Carbamide Peroxide (Debrox) 3 drop BID 06/12/20 21:00 06/16/20 09:01 DC 06/13/20 12:17 Guaifenesin (Robitussin) 5 ml Q6H PO 07/28/20 12:00 08/01/20 14:01 Heparin Sodium (Heparin (Flush)) 200 units ASDIRECTED PRN IV SEE LABEL COMMENTS 06/11/20 19:45 06/11/20 19:49 DC Heparin Sodium (Heparin (Flush)) 200 units ASDIRECTED PRN IV SEE LABEL COMMENTS 06/11/20 19:45 06/20/20 18:55 DC 06/20/20 06:42 Heparin Sodium (Heparin (Flush)) 200 units PICC IV 06/12/20 06:00 06/11/20 19:48 DC Heparin Sodium (Heparin (Flush)) 200 units PICC IV 06/12/20 06:00 06/20/20 18:55 DC 06/20/20 06:41 Heparin Sodium (Porcine) (Heparin) 5,000 units Q8H SQ 06/11/20 22:00 06/13/20 15:19 DC 06/13/20 12:17 Heparin Sodium (Porcine) (Heparin) 5,000 units Q8H SQ 07/25/20 22:00 08/01/20 14:01 Home Med (Med Rec Complete!) ASDIRECTED XX 06/12/20 10:15 06/12/20 10:08 DC Hydralazine HCl (Apresoline) 10 mg Q6H PRN PO SBP>170 06/11/20 19:45 06/19/20 22:01 Iron (Venofer) 100 mg HD IV 07/11/20 11:30 Levetiracetam (Keppra) 500 mg DAILY PO 06/12/20 09:00 08/01/20 05:54 Lidocaine (Lidoderm Patch) 1 patch DAILY TD 06/12/20 09:00 07/13/20 06:43 Midodrine (Proamatine) 10 mg ASDIRECTED PO 06/11/20 20:30 07/23/20 08:19 Midodrine (Proamatine) 10 mg HD PO 06/11/20 21:00 06/11/20 20:22 DC Miscellaneous (Unresolved Clarification Entry) SEE LABEL COMMENTS DAILY XX 06/24/20 09:00 06/25/20 12:54 DC Non-Formulary Medication ( See Comment Field Below ) CHECK TO SEE IF THE PATIENT... DAILY@0800 XX 06/27/20 08:00 07/27/20 08:00 Non-Formulary Medication ( See Comment Field Below ) REMOVE LIDODERM PATCH DAILY@21 XX 06/11/20 21:00 07/26/20 20:54 Ondansetron HCl (Zofran) 4 mg Q6HP PRN PO NAUSEA OR VOMITING 07/08/20 12:45 07/31/20 10:48 Oxycodone HCl (Roxicodone, Oxyir) 10 mg Q4H PRN PO PAIN 06/11/20 19:45 08/01/20 08:12 Pantoprazole Sodium (Protonix) 40 mg DAILY PO 06/12/20 09:00 08/01/20 05:53 Polyethylene Glycol (Miralax) 1 pkt DAILY PRN PO CONSTIPATION 06/11/20 19:45 06/15/20 16:45 DC Pramipexole Dihydrochloride (Mirapex) 0.125 mg QHS PO 06/11/20 21:00 07/31/20 21:55 Sertraline HCl (Zoloft) 100 mg DAILY PO 06/12/20 09:00 08/01/20 05:54 Sevelamer Carbonate (Renvela) 2,400 mg WM PO 06/12/20 08:00 08/01/20 14:02 Sodium Chloride (Saline Lock Flush) 10 ml ASDIRECTED PRN IV SEE LABEL COMMENTS 06/11/20 19:45 06/11/20 19:50 DC Sodium Chloride (Saline Lock Flush) 10 ml ASDIRECTED PRN IV SEE LABEL COMMENTS 06/11/20 19:45 06/20/20 18:55 DC 06/20/20 06:41 Sodium Chloride (Saline Lock Flush) 10 ml PICC IV 06/12/20 06:00 06/11/20 19:49 DC Sodium Chloride (Saline Lock Flush) 10 ml PICC IV 06/12/20 06:00 06/20/20 18:55 DC 06/20/20 06:41 Sucroferric Oxyhydroxide (Velphoro) 500 mg WM PO 07/11/20 12:30 08/01/20 14:02 Allergies Coded Allergies: moxifloxacin (Verified Allergy, Intermediate, RASH, 12/25/19) codeine (Verified Allergy, Unknown, 12/25/19) valsartan (Verified Allergy, Unknown, 12/25/19) Claudette Padron MD Aug 01, 2020 14:53
--- NOTE | 2020-08-01 15:12 | REPVR ---
PROCEDURE INFORMATION: Exam: XR Chest, 1 View Exam date and time: 08/01/2020 2:55 PM Age: 50 years old Clinical indication: Shortness of breath; Additional info: R/O pna, + sputum cx TECHNIQUE: Imaging protocol: XR of the chest Views: 1 view. COMPARISON: CR Chest, 2 view PA, Lat 07/27/2020 12:54 PM FINDINGS: Tubes, catheters and devices: Tracheostomy tube terminates in the mid to distal trachea. Lungs: Unremarkable. No consolidation. Pleural space: Unremarkable. No pleural effusion. No pneumothorax. Heart/Mediastinum: Marked prominence of the cardiac silhouette, unchanged. Bones/joints: Degenerative change of the spine. IMPRESSION: No acute cardiopulmonary abnormality is identified. Electronically signed by: Jeanette Mi On 08/01/2020 15:11:55 PM
[2020-08-01] MEDS: PRAMIPEXOLE (MIRAPEX) 0.125 MG TAB PO SCH (21:03)
[2020-08-02] MEDS: IPRATROPIUM 0.5MG/ALBUTEROL 2.5MG INH SOL UD 3ML (DUONEB) NEB SCH ×6 (04:05→23:38)
[2020-08-02] MEDS: guaiFENesin SYRUP 200 MG/10 ML UDC PO SCH ×3 (05:24→18:21)
[2020-08-02] MEDS: HEPARIN SOD (PORCINE) 5000UNITS/ML 1ML VIAL/SYRINGE SQ SCH ×3 (05:24→22:11)
[2020-08-02 06:00] VITALS: BP 109/50
[2020-08-02] MEDS: [UNRECOGNIZED DRUG - REMARK] XX SCH (08:00)
[2020-08-02] MEDS: LIDOCAINE 5% (LIDODERM) PATCH TD SCH (09:00)
[2020-08-02] MEDS: SUCROFERRIC OXYHYDROXIDE 500MG CHEW TAB (VELPHORO) PO SCH ×3 (09:06→18:21)
[2020-08-02] MEDS: levETIRAcetam 250MG TABLET (KEPPRA) PO SCH (09:06)
[2020-08-02] MEDS: PANTOPRAZOLE 40MG TAB (PROTONIX) PO SCH (09:07)
[2020-08-02] MEDS: (RENVELA) SEVELAMER **CARBONate** 800 MG TAB PO SCH ×3 (09:07→18:21)
[2020-08-02] MEDS: SERTRALINE 100 MG TAB PO SCH (09:07)
[2020-08-02] MEDS: AMIODARONE 200 MG TAB (PACERONE) PO SCH (09:07)
[2020-08-02] MEDS: BISACODYL 5 MG TAB PO SCH (09:07)
--- NOTE | 2020-08-02 13:02 | IPN ---
DATE: 08/01/2020 SUBJECTIVE: Matthew is seen and examined this morning in the dialysis unit receiving his maintenance treatment. He denies any overnight events or complaints. He remains afebrile. Denies any shortness of breath. He has not had any troubles with his fistula. PHYSICAL EXAMINATION: VITAL SIGNS: Temperature 97.9, pulse 90, respiratory rate 18, blood pressure 135/68, saturating 98% on trach collar. Intake yesterday was 1 liter. Goal dialysis removal today is 2.5 liters. GENERAL: Patient is seen in the hemodialysis unit in bed receiving his treatment, awake, alert, oriented, in no apparent distress. HEENT: Extraocular muscles are intact. Tongue is moist. There is tracheostomy. HEART: Heart sounds are regular, S1 and S2. RESPIRATORY: Anterior auscultation only, symmetric air entry. No crackle or rale. ABDOMEN: Significantly obese and nontender to palpation. EXTREMITIES: There is no leg edema nor clubbing. Fistula in the right upper extremity is patent and in use. SKIN: Normal temperature and turgor. NEUROLOGIC: Oriented and at baseline mentation. LABORATORY DATA: Sodium 136, potassium 4.7, bicarbonate 30, calcium 9.9. PTH pending. Hemoglobin 11.2. INPATIENT MEDICATIONS: Reviewed by myself, and no change from prior. PROBLEMS: 1. End-stage renal disease on hemodialysis on Wednesday, , Wednesday schedule: Patient is dialyzed today, ultrafiltration goal is 2.5 liters. Volume status is acceptable. Electrolytes are acceptable. Fistula is in good use. 2. Anemia of end-stage renal disease: Hemoglobin level is at target. He is not currently on Aranesp. 3. Hypotension: Continue current dose of Midodrine on dialysis days. 4. Chronic kidney disease/mineral bone disease: Continue Renvela and Velphoro. Phosphorus levels have been appropriate and parathyroid hormone levels are pending. MTDD
[2020-08-02] MEDS: oxyCODONE 5MG TAB PO PRN (22:10)
[2020-08-02] MEDS: PRAMIPEXOLE (MIRAPEX) 0.125 MG TAB PO SCH (22:10)
[2020-08-02] MEDS: ALPRAZolam 0.25 MG TAB PO PRN (22:10)
[2020-08-03] MEDS: IPRATROPIUM 0.5MG/ALBUTEROL 2.5MG INH SOL UD 3ML (DUONEB) NEB SCH ×6 (04:00→23:55)
[2020-08-03 06:00] VITALS: BP 152/64
[2020-08-03] MEDS: guaiFENesin SYRUP 200 MG/10 ML UDC PO SCH ×4 (06:59→18:36)
[2020-08-03] MEDS: oxyCODONE 5MG TAB PO PRN ×3 (07:00→21:50)
[2020-08-03] MEDS: levETIRAcetam 250MG TABLET (KEPPRA) PO SCH (07:01)
[2020-08-03] MEDS: PANTOPRAZOLE 40MG TAB (PROTONIX) PO SCH (07:01)
[2020-08-03] MEDS: SERTRALINE 100 MG TAB PO SCH (07:01)
[2020-08-03] MEDS: AMIODARONE 200 MG TAB (PACERONE) PO SCH (07:01)
[2020-08-03] MEDS: ALPRAZolam 0.25 MG TAB PO PRN ×3 (07:01→21:49)
[2020-08-03] MEDS: (RENVELA) SEVELAMER **CARBONate** 800 MG TAB PO SCH ×3 (07:01→18:36)
[2020-08-03] MEDS: SUCROFERRIC OXYHYDROXIDE 500MG CHEW TAB (VELPHORO) PO SCH ×3 (07:02→18:35)
[2020-08-03] MEDS: HEPARIN SOD (PORCINE) 5000UNITS/ML 1ML VIAL/SYRINGE SQ SCH ×3 (07:02→21:52)
[2020-08-03] MEDS: LIDOCAINE 5% (LIDODERM) PATCH TD SCH (07:02)
[2020-08-03] MEDS: BISACODYL 5 MG TAB PO SCH (07:02)
[2020-08-03] MEDS: [UNRECOGNIZED DRUG - REMARK] XX SCH (08:00)
[2020-08-03] MEDS: ONDANSETRON 4 MG TAB PO PRN (14:19)
[2020-08-03] MEDS: POLYTRIM OPTH DROPS 10ML OU SCH ×3 (14:41→21:49)
[2020-08-03 19:21] LABS: INR 1.1; PROTHROMBIN TIME 14.4 SECONDS (12.5-14.3)
[2020-08-03 19:23] LABS: HEMATOCRIT 39.6 % (42.0-52.0); HEMOGLOBIN 12.1 g/dl (13.5-17.5); MEAN CORPUSCULAR HEMOGLOBIN 30.3 pg (27.0-33.0); MEAN CORPUSCULAR HGB CONC 30.6 g/dl (32.0-36.5); MEAN CORPUSCULAR VOLUME 99.2 fl (80.0-96.0); PLATELET COUNT, AUTOMATED 176 10^3/uL (150-450); RED BLOOD COUNT 3.99 10^6/uL (4.30-6.10); WHITE BLOOD COUNT 8.3 10^3/uL (4.0-10.0)
[2020-08-03] MEDS: PRAMIPEXOLE (MIRAPEX) 0.125 MG TAB PO SCH (21:49)
[2020-08-04] MEDS: guaiFENesin SYRUP 200 MG/10 ML UDC PO SCH ×5 (00:48→23:48)
[2020-08-04] MEDS: IPRATROPIUM 0.5MG/ALBUTEROL 2.5MG INH SOL UD 3ML (DUONEB) NEB SCH ×6 (03:51→23:46)
[2020-08-04 06:00] VITALS: BP 147/62
[2020-08-04] MEDS: POLYTRIM OPTH DROPS 10ML OU SCH ×6 (06:31→21:48)
[2020-08-04] MEDS: HEPARIN SOD (PORCINE) 5000UNITS/ML 1ML VIAL/SYRINGE SQ SCH ×3 (06:31→21:49)
[2020-08-04] MEDS: [UNRECOGNIZED DRUG - REMARK] XX SCH (08:00)
[2020-08-04] MEDS: SUCROFERRIC OXYHYDROXIDE 500MG CHEW TAB (VELPHORO) PO SCH ×4 (08:00→17:35)
[2020-08-04] MEDS: (RENVELA) SEVELAMER **CARBONate** 800 MG TAB PO SCH ×3 (08:00→17:35)
[2020-08-04] MEDS: LIDOCAINE 5% (LIDODERM) PATCH TD SCH (09:00)
[2020-08-04] MEDS: levETIRAcetam 250MG TABLET (KEPPRA) PO SCH (10:45)
[2020-08-04] MEDS: BISACODYL 5 MG TAB PO SCH (10:46)
[2020-08-04] MEDS: PANTOPRAZOLE 40MG TAB (PROTONIX) PO SCH (10:46)
[2020-08-04] MEDS: ALPRAZolam 0.25 MG TAB PO PRN ×2 (10:46→21:47)
[2020-08-04] MEDS: SERTRALINE 100 MG TAB PO SCH (10:46)
[2020-08-04] MEDS: AMIODARONE 200 MG TAB (PACERONE) PO SCH (10:46)
[2020-08-04] MEDS: ONDANSETRON 4 MG TAB PO PRN (10:48)
[2020-08-04] MEDS: oxyCODONE 5MG TAB PO PRN ×2 (10:48→21:48)
--- NOTE | 2020-08-04 15:32 | IPN ---
DATE: 08/03/2020 SUBJECTIVE: Mr. Richard is seen this morning during hemodialysis. He is feeling about the same and remains on a trach collar. He is tolerating his dialysis treatment very well. He denies any nausea, vomiting, fever, chills or chest pain. PHYSICAL EXAMINATION: VITAL SIGNS: Temperature 97.2 degrees Fahrenheit, heart rate 76 per minute, respiratory rate 18 per minute, blood pressure 152/64 mmHg and oxygen saturation 95% on trach collar. HEENT: Head is atraumatic. NECK: Supple. JVD is difficult to be assessed. Tracheostomy is in place. HEART: Regular. LUNGS: With diminished breath sounds due to morbid obesity. ABDOMEN: Obese and nontender. Bowel sounds are normal. EXTREMITIES: Without any cyanosis or clubbing. NEUROLOGIC: He is at his baseline mentation. LABORATORY DATA: Patient did not have any new labs done since 08/01/2020. PROBLEMS: 1. End-stage renal disease: Mr. Richard remains on hemodialysis three times a week. He is being dialyzed today and tolerating his dialysis treatment very well. 2. Anemia: His anemia has been stable and will repeat his CBCX next week. No changes are being made today. 3. Respiratory failure: This is chronic and related to morbid obesity and sleep apnea. He has chronic tracheostomy and remains on trach collar. His volume status is well compensated. 4. Secondary hyperparathyroidism: Patient has been very compliant with his dietary restriction and his phosphorus level was only 3.4 on 07/27/2020. His intact PTH level is appropriate at 208. He remains on phosphate binders and Vitamin D and Sensipar. We will continue with his current medications. 5. Hypotension: This is a chronic issue and he has been on Midodrine 10 mg three times a day before dialysis; will continue with the same. DISPOSITION: At present, patient is waiting for [facility] placement. He has been a chronic [facility] resident, however, local [facility] has declined to accept him. MARGO
[2020-08-04] MEDS ORDERED: MIRALAX *UNIT DOSE* 17GM PACKET PO PRN (17:45)
[2020-08-04] MEDS: SENOKOT S TAB PO SCH (21:47)
[2020-08-04] MEDS: PRAMIPEXOLE (MIRAPEX) 0.125 MG TAB PO SCH (21:48)
[2020-08-05] MEDS: IPRATROPIUM 0.5MG/ALBUTEROL 2.5MG INH SOL UD 3ML (DUONEB) NEB SCH ×6 (03:48→23:13)
[2020-08-05 06:00] VITALS: BP 109/43
[2020-08-05] MEDS: guaiFENesin SYRUP 200 MG/10 ML UDC PO SCH ×3 (06:40→18:26)
[2020-08-05] MEDS: HEPARIN SOD (PORCINE) 5000UNITS/ML 1ML VIAL/SYRINGE SQ SCH ×3 (06:41→21:50)
[2020-08-05] MEDS: POLYTRIM OPTH DROPS 10ML OU SCH ×6 (06:41→21:49)
[2020-08-05] MEDS: [UNRECOGNIZED DRUG - REMARK] XX SCH (08:00)
[2020-08-05] MEDS: (RENVELA) SEVELAMER **CARBONate** 800 MG TAB PO SCH ×3 (08:14→18:27)
[2020-08-05] MEDS: SUCROFERRIC OXYHYDROXIDE 500MG CHEW TAB (VELPHORO) PO SCH ×3 (08:14→18:27)
[2020-08-05] MEDS: levETIRAcetam 250MG TABLET (KEPPRA) PO SCH (08:15)
[2020-08-05] MEDS: ALPRAZolam 0.25 MG TAB PO PRN ×2 (08:15→21:49)
[2020-08-05] MEDS: PANTOPRAZOLE 40MG TAB (PROTONIX) PO SCH (08:15)
[2020-08-05] MEDS: SERTRALINE 100 MG TAB PO SCH (08:15)
[2020-08-05] MEDS: oxyCODONE 5MG TAB PO PRN ×3 (08:15→21:50)
[2020-08-05] MEDS: AMIODARONE 200 MG TAB (PACERONE) PO SCH (08:15)
[2020-08-05] MEDS: LIDOCAINE 5% (LIDODERM) PATCH TD SCH (08:16)
[2020-08-05] MEDS: VANICREAM MOISTURIZING SKIN CREAM 113GM TUBE TOP SCH (11:41)
[2020-08-05 12:26] LABS: HEPATITIS B CORE ANTIBODY IGM NEGATIVE (NEGATIVE); HEPATITIS B SURFACE ANTIBODY POSITIVE (POSITIVE); HEPATITIS B SURFACE ANTIGEN NEGATIVE (NEGATIVE); HEPATITIS C VIRUS ABY INDEX 0.1 INDEX (<0.8)
[2020-08-05] MEDS: PRAMIPEXOLE (MIRAPEX) 0.125 MG TAB PO SCH (21:49)
[2020-08-05] MEDS: SENOKOT S TAB PO SCH (21:49)
[2020-08-06] MEDS: guaiFENesin SYRUP 200 MG/10 ML UDC PO SCH ×4 (00:34→18:00)
[2020-08-06] MEDS: IPRATROPIUM 0.5MG/ALBUTEROL 2.5MG INH SOL UD 3ML (DUONEB) NEB SCH ×6 (03:08→22:54)
[2020-08-06 06:00] VITALS: BP 113/45
[2020-08-06] MEDS: POLYTRIM OPTH DROPS 10ML OU SCH ×6 (06:32→21:37)
[2020-08-06] MEDS: HEPARIN SOD (PORCINE) 5000UNITS/ML 1ML VIAL/SYRINGE SQ SCH ×3 (06:32→21:37)
[2020-08-06] MEDS: levETIRAcetam 250MG TABLET (KEPPRA) PO SCH (06:33)
[2020-08-06] MEDS: VANICREAM MOISTURIZING SKIN CREAM 113GM TUBE TOP SCH (06:33)
[2020-08-06] MEDS: AMIODARONE 200 MG TAB (PACERONE) PO SCH (06:33)
[2020-08-06] MEDS: PANTOPRAZOLE 40MG TAB (PROTONIX) PO SCH (06:33)
[2020-08-06] MEDS: SERTRALINE 100 MG TAB PO SCH (06:33)
[2020-08-06] MEDS: LIDOCAINE 5% (LIDODERM) PATCH TD SCH ×2 (06:34→06:51)
[2020-08-06] MEDS: SUCROFERRIC OXYHYDROXIDE 500MG CHEW TAB (VELPHORO) PO SCH ×3 (07:27→18:00)
[2020-08-06] MEDS: (RENVELA) SEVELAMER **CARBONate** 800 MG TAB PO SCH ×3 (07:28→18:00)
[2020-08-06] MEDS: oxyCODONE 5MG TAB PO PRN ×2 (07:29→21:38)
[2020-08-06] MEDS: MIDODRINE 5 MG TAB PO SCH ×2 (07:29→07:30)
[2020-08-06] MEDS: ALPRAZolam 0.25 MG TAB PO PRN ×2 (07:29→21:37)
[2020-08-06] MEDS: [UNRECOGNIZED DRUG - REMARK] XX SCH (08:41)
[2020-08-06 09:53] LABS: ALBUMIN 2.3 GM/DL (3.2-5.2); CALCIUM LEVEL 9.4 MG/DL (8.5-10.1); CREATININE FOR GFR 5.7 MG/DL (0.70-1.30); GLOMERULAR FILTRATION RATE 11.4 (>60); HEMATOCRIT 35.1 % (42.0-52.0); HEMOGLOBIN 10.5 g/dl (13.5-17.5); MEAN CORPUSCULAR HEMOGLOBIN 28.7 pg (27.0-33.0); MEAN CORPUSCULAR HGB CONC 29.9 g/dl (32.0-36.5); MEAN CORPUSCULAR VOLUME 95.9 fl (80.0-96.0); PHOSPHORUS LEVEL 3.7 MG/DL (2.5-4.9); PLATELET COUNT, AUTOMATED 145 10^3/uL (150-450); RED BLOOD COUNT 3.66 10^6/uL (4.30-6.10); WHITE BLOOD COUNT 6.2 10^3/uL (4.0-10.0)
[2020-08-06] MEDS ORDERED: DARBEPOETIN 100 MCG/0.5 ML *DIALYSIS* SYRINGE (J0882) IV SCH (11:45)
[2020-08-06 13:12] VITALS: BP 94/33
--- NOTE | 2020-08-06 15:34 | IPN ---
DATE: 08/06/2020 SUBJECTIVE: Mr. Richard is seen this morning during hemodialysis. He is feeling well and denies any complaints. He remains on trach collar. PHYSICAL EXAMINATION: VITAL SIGNS: Temperature 97.3 degrees Fahrenheit, heart rate 70 per minute, respiratory rate 18 per minute, blood pressure 113/45 mmHg and oxygen saturation 93%. HEENT: Head is atraumatic. NECK: Tracheostomy is in place. HEART: Heart sounds are regular. LUNGS: Clear to auscultation. ABDOMEN: Obese, soft and nontender. Bowel sounds are normal. EXTREMITIES: Without any cyanosis or clubbing. Right forearm AV fistula is patent and currently being used for dialysis. LABORATORY DATA: Todays labs show sodium 136, potassium 5.0, CO2 28, BUN 34 and creatinine 5.7. Albumin only 2.3. Calcium 9.4 and phosphorus 3.7. WBC 6.2, hemoglobin 10.5, hematocrit 35. PROBLEMS: 1. End-stage renal disease: Patient is tolerating dialysis treatment very well. Electrolytes are within normal range. 2. Anemia: His anemia is stable, but has not received Aranesp for a while. I am going to resume Aranesp 100 mcg once a week. 3. Protein calorie malnutrition: His albumin level has been 2.4 and 2.3. Nepro one can b.i.d. is being started to improve his nourishment. 4. Hypotension: Chronic hypotension has been stable with Midodrine and will continue with the same. 5. Respiratory failure: Patient has a chronic tracheostomy and has been stable. His volume status is very well compensated. [facility]
[2020-08-06] MEDS: PRAMIPEXOLE (MIRAPEX) 0.125 MG TAB PO SCH (21:35)
[2020-08-06] MEDS: SENOKOT S TAB PO SCH (21:36)
[2020-08-07] MEDS: guaiFENesin SYRUP 200 MG/10 ML UDC PO SCH ×4 (00:50→18:28)
[2020-08-07] MEDS: IPRATROPIUM 0.5MG/ALBUTEROL 2.5MG INH SOL UD 3ML (DUONEB) NEB SCH ×6 (02:50→23:14)
[2020-08-07 06:00] VITALS: BP 126/54
[2020-08-07] MEDS: POLYTRIM OPTH DROPS 10ML OU SCH ×6 (06:45→21:38)
[2020-08-07] MEDS: HEPARIN SOD (PORCINE) 5000UNITS/ML 1ML VIAL/SYRINGE SQ SCH ×3 (06:45→21:38)
[2020-08-07] MEDS: [UNRECOGNIZED DRUG - REMARK] XX SCH (08:00)
[2020-08-07] MEDS: ALPRAZolam 0.25 MG TAB PO PRN ×2 (08:59→22:03)
[2020-08-07] MEDS: (RENVELA) SEVELAMER **CARBONate** 800 MG TAB PO SCH ×3 (08:59→18:29)
[2020-08-07] MEDS: PANTOPRAZOLE 40MG TAB (PROTONIX) PO SCH (09:00)
[2020-08-07] MEDS: SERTRALINE 100 MG TAB PO SCH (09:00)
[2020-08-07] MEDS: ONDANSETRON 4 MG TAB PO PRN (09:00)
[2020-08-07] MEDS: LIDOCAINE 5% (LIDODERM) PATCH TD SCH (09:00)
[2020-08-07] MEDS: SUCROFERRIC OXYHYDROXIDE 500MG CHEW TAB (VELPHORO) PO SCH ×3 (09:00→18:29)
[2020-08-07] MEDS: levETIRAcetam 250MG TABLET (KEPPRA) PO SCH (09:00)
[2020-08-07] MEDS: oxyCODONE 5MG TAB PO PRN ×2 (09:01→22:04)
[2020-08-07] MEDS: AMIODARONE 200 MG TAB (PACERONE) PO SCH (09:02)
[2020-08-07] MEDS: VANICREAM MOISTURIZING SKIN CREAM 113GM TUBE TOP SCH (09:04)
[2020-08-07 19:51] VITALS: O2SAT 96
[2020-08-07] MEDS: SENOKOT S TAB PO SCH (21:37)
[2020-08-07] MEDS: PRAMIPEXOLE (MIRAPEX) 0.125 MG TAB PO SCH (21:38)
[2020-08-08] MEDS: guaiFENesin SYRUP 200 MG/10 ML UDC PO SCH ×4 (00:21→19:07)
[2020-08-08] MEDS: IPRATROPIUM 0.5MG/ALBUTEROL 2.5MG INH SOL UD 3ML (DUONEB) NEB SCH ×6 (02:29→23:09)
[2020-08-08 06:00] VITALS: BP 112/58
[2020-08-08] MEDS: LIDOCAINE 5% (LIDODERM) PATCH TD SCH (06:22)
[2020-08-08] MEDS: SUCROFERRIC OXYHYDROXIDE 500MG CHEW TAB (VELPHORO) PO SCH ×4 (06:23→19:07)
[2020-08-08] MEDS: PANTOPRAZOLE 40MG TAB (PROTONIX) PO SCH (06:26)
[2020-08-08] MEDS: (RENVELA) SEVELAMER **CARBONate** 800 MG TAB PO SCH ×4 (06:26→19:07)
[2020-08-08] MEDS: HEPARIN SOD (PORCINE) 5000UNITS/ML 1ML VIAL/SYRINGE SQ SCH ×3 (06:26→22:08)
[2020-08-08] MEDS: MIDODRINE 5 MG TAB PO SCH (06:26)
[2020-08-08] MEDS: levETIRAcetam 250MG TABLET (KEPPRA) PO SCH (06:27)
[2020-08-08] MEDS: SERTRALINE 100 MG TAB PO SCH (06:27)
[2020-08-08] MEDS: AMIODARONE 200 MG TAB (PACERONE) PO SCH (06:27)
[2020-08-08] MEDS: POLYTRIM OPTH DROPS 10ML OU SCH ×7 (06:28→22:09)
[2020-08-08] MEDS: VANICREAM MOISTURIZING SKIN CREAM 113GM TUBE TOP SCH (06:28)
[2020-08-08] MEDS: [UNRECOGNIZED DRUG - REMARK] XX SCH (07:04)
[2020-08-08] MEDS: oxyCODONE 5MG TAB PO PRN ×2 (08:27→22:09)
[2020-08-08] MEDS: ALPRAZolam 0.25 MG TAB PO PRN ×2 (08:27→22:08)
[2020-08-08] MEDS: IPRATROPIUM 0.5MG/ALBUTEROL 2.5MG INH SOL UD 3ML (DUONEB) NEB PRN (13:54)
[2020-08-08] MEDS: PRAMIPEXOLE (MIRAPEX) 0.125 MG TAB PO SCH (22:07)
[2020-08-08] MEDS: SENOKOT S TAB PO SCH (22:08)
[2020-08-09] MEDS: guaiFENesin SYRUP 200 MG/10 ML UDC PO SCH ×4 (00:10→18:07)
[2020-08-09] MEDS: IPRATROPIUM 0.5MG/ALBUTEROL 2.5MG INH SOL UD 3ML (DUONEB) NEB SCH ×6 (03:05→23:48)
[2020-08-09] MEDS: HEPARIN SOD (PORCINE) 5000UNITS/ML 1ML VIAL/SYRINGE SQ SCH ×3 (05:08→20:39)
[2020-08-09] MEDS: POLYTRIM OPTH DROPS 10ML OU SCH ×6 (05:09→21:00)
[2020-08-09 06:00] VITALS: BP 120/58
--- NOTE | 2020-08-09 07:29 | CR ---
DATE OF CONSULTATION: 08/08/2020 Advanced wound care consult by telemedicine after consent was obtained from the patient. REQUESTED BY: Dr. Shore HISTORY OF PRESENT ILLNESS: This is a 50-year-old male, chronically ill, with advanced chronic obstructive pulmonary disease (COPD), tracheostomy, on dialysis, awaiting placement in a chronic care facility. The patient has three wounds, one involving the left heel lateral aspect, which represents a stage II pressure injury. The wound measures 2.5 cm x 1.0 cm and has a wound depth of 0.1 cm. The drainage is serosanguinous. Treatment for this wound; foam dressing, offloading with a heel float boot. Dressing change every other day. This wound can be cleansed with Vashe wound cleanser for 10 minutes. The patient also has two small stage II pressure injuries involving the right and left inferior buttock. These show areas of dry superficial eschar. There is minimal drainage noted. No deep structures are seen. Treatment for these wounds cleansed with Vashe wound cleanser for 10 minutes and then apply a foam dressing to the wound. These can be changed on an every other day basis. The entire buttock shows blanchable erythema, which often times is secondary to chronic dependency. This does not appear to be incontinence dermatitis. Treatment to this area is to apply Cavilon advanced skin prep to the entire area. This is applied once a week and comes in a plastic handled dispenser wand. Previously applied skin cream can be discontinued at this time. Basic change of position q 2 hours is mandatory and a protective heel float boat for the right heel should be initiated to avoid the potential of a hospital acquired deep tissue injury. Additional note is made of a very small dry eschar on the dorsal aspect of the left third toe. This is dry. There is no erythema involved and no drainage seen. This area requires no treatment at this time, but should be inspected on a daily basis. Thank you for this consult. MARGO
[2020-08-09] MEDS: SUCROFERRIC OXYHYDROXIDE 500MG CHEW TAB (VELPHORO) PO SCH ×3 (08:00→18:07)
[2020-08-09] MEDS: (RENVELA) SEVELAMER **CARBONate** 800 MG TAB PO SCH ×3 (08:00→18:07)
[2020-08-09] MEDS: [UNRECOGNIZED DRUG - REMARK] XX SCH (08:00)
[2020-08-09] MEDS: LIDOCAINE 5% (LIDODERM) PATCH TD SCH (09:00)
[2020-08-09] MEDS: levETIRAcetam 250MG TABLET (KEPPRA) PO SCH (09:36)
[2020-08-09] MEDS: SERTRALINE 100 MG TAB PO SCH (09:36)
[2020-08-09] MEDS: ALPRAZolam 0.25 MG TAB PO PRN ×2 (09:36→20:37)
[2020-08-09] MEDS: oxyCODONE 5MG TAB PO PRN ×2 (09:36→20:38)
[2020-08-09] MEDS: AMIODARONE 200 MG TAB (PACERONE) PO SCH (09:36)
[2020-08-09] MEDS: PANTOPRAZOLE 40MG TAB (PROTONIX) PO SCH (09:36)
[2020-08-09] MEDS: ONDANSETRON 4 MG TAB PO PRN (09:36)
[2020-08-09] MEDS: VANICREAM MOISTURIZING SKIN CREAM 113GM TUBE TOP SCH (09:37)
[2020-08-09] MEDS: SENOKOT S TAB PO SCH (20:37)
[2020-08-09] MEDS: PRAMIPEXOLE (MIRAPEX) 0.125 MG TAB PO SCH (20:37)
[2020-08-10] MEDS: guaiFENesin SYRUP 200 MG/10 ML UDC PO SCH ×4 (00:08→18:00)
[2020-08-10] MEDS: IPRATROPIUM 0.5MG/ALBUTEROL 2.5MG INH SOL UD 3ML (DUONEB) NEB SCH ×6 (03:53→23:48)
[2020-08-10 06:00] VITALS: BP 122/62
[2020-08-10] MEDS: levETIRAcetam 250MG TABLET (KEPPRA) PO SCH (06:13)
[2020-08-10] MEDS: SERTRALINE 100 MG TAB PO SCH (06:13)
[2020-08-10] MEDS: POLYTRIM OPTH DROPS 10ML OU SCH ×3 (06:13→12:00)
[2020-08-10] MEDS: PANTOPRAZOLE 40MG TAB (PROTONIX) PO SCH (06:14)
[2020-08-10] MEDS: MIDODRINE 5 MG TAB PO SCH (06:14)
[2020-08-10] MEDS: AMIODARONE 200 MG TAB (PACERONE) PO SCH (06:14)
[2020-08-10] MEDS: HEPARIN SOD (PORCINE) 5000UNITS/ML 1ML VIAL/SYRINGE SQ SCH ×3 (06:15→21:28)
[2020-08-10] MEDS: [UNRECOGNIZED DRUG - REMARK] XX SCH (06:36)
[2020-08-10] MEDS: LIDOCAINE 5% (LIDODERM) PATCH TD SCH (06:37)
[2020-08-10] MEDS: SUCROFERRIC OXYHYDROXIDE 500MG CHEW TAB (VELPHORO) PO SCH ×3 (08:00→18:00)
[2020-08-10] MEDS: (RENVELA) SEVELAMER **CARBONate** 800 MG TAB PO SCH ×3 (08:00→18:00)
[2020-08-10] MEDS: VANICREAM MOISTURIZING SKIN CREAM 113GM TUBE TOP SCH (08:15)
[2020-08-10 09:34] LABS: BASO # 0.1 10^3/uL (0.0-0.2); BASO % 0.7 % (0.0-1.0); EOS # 0.6 10^3/uL (0.0-0.5); EOS % 8.4 % (0.0-3.0); HEMOGLOBIN 10.9 g/dl (13.5-17.5); LYMPH # 2.4 10^3/uL (1.5-5.0); MEAN CORPUSCULAR HEMOGLOBIN 28.9 pg (27.0-33.0); MEAN CORPUSCULAR HGB CONC 30.3 g/dl (32.0-36.5); MEAN CORPUSCULAR VOLUME 95.5 fl (80.0-96.0); MONO # 0.4 10^3/uL (0.0-0.8); MONO % 5.1 % (0.0-5.0); NEUTROPHILS # 3.6 10^3/uL (1.5-8.5); NEUTROPHILS % 51.5 % (36.0-66.0); PLATELET COUNT, AUTOMATED 145 10^3/uL (150-450); RED BLOOD COUNT 3.77 10^6/uL (4.30-6.10)
[2020-08-10 09:48] LABS: ALBUMIN 2.2 GM/DL (3.2-5.2); CALCIUM LEVEL 9.3 MG/DL (8.5-10.1); CREATININE FOR GFR 4.99 MG/DL (0.70-1.30); GLOMERULAR FILTRATION RATE 13.3 (>60); PHOSPHORUS LEVEL 3.7 MG/DL (2.5-4.9); POTASSIUM SERUM 5.3 MEQ/L (3.5-5.1)
[2020-08-10] MEDS: IPRATROPIUM 0.5MG/ALBUTEROL 2.5MG INH SOL UD 3ML (DUONEB) NEB PRN (13:24)
[2020-08-10] MEDS: ALPRAZolam 0.25 MG TAB PO PRN (21:28)
[2020-08-10] MEDS: oxyCODONE 5MG TAB PO PRN (21:28)
[2020-08-10] MEDS: SENOKOT S TAB PO SCH (21:28)
[2020-08-10] MEDS: PRAMIPEXOLE (MIRAPEX) 0.125 MG TAB PO SCH (21:31)
[2020-08-11] MEDS: guaiFENesin SYRUP 200 MG/10 ML UDC PO SCH ×5 (00:12→23:33)
[2020-08-11] MEDS: IPRATROPIUM 0.5MG/ALBUTEROL 2.5MG INH SOL UD 3ML (DUONEB) NEB SCH ×5 (03:44→20:10)
[2020-08-11 06:00] VITALS: BP 152/70
[2020-08-11] MEDS: HEPARIN SOD (PORCINE) 5000UNITS/ML 1ML VIAL/SYRINGE SQ SCH ×3 (06:01→22:37)
[2020-08-11] MEDS: ONDANSETRON 4 MG TAB PO PRN ×2 (07:19→21:54)
[2020-08-11] MEDS: ALPRAZolam 0.25 MG TAB PO PRN ×2 (07:19→22:36)
[2020-08-11] MEDS: oxyCODONE 5MG TAB PO PRN ×2 (07:20→22:36)
[2020-08-11] MEDS: [UNRECOGNIZED DRUG - REMARK] XX SCH (08:00)
[2020-08-11] MEDS: LIDOCAINE 5% (LIDODERM) PATCH TD SCH (09:00)
[2020-08-11] MEDS: AMIODARONE 200 MG TAB (PACERONE) PO SCH (09:04)
[2020-08-11] MEDS: SERTRALINE 100 MG TAB PO SCH (09:04)
[2020-08-11] MEDS: levETIRAcetam 250MG TABLET (KEPPRA) PO SCH (09:04)
[2020-08-11] MEDS: SUCROFERRIC OXYHYDROXIDE 500MG CHEW TAB (VELPHORO) PO SCH ×3 (09:04→18:57)
[2020-08-11] MEDS: PANTOPRAZOLE 40MG TAB (PROTONIX) PO SCH (09:04)
[2020-08-11] MEDS: (RENVELA) SEVELAMER **CARBONate** 800 MG TAB PO SCH ×3 (09:04→18:54)
[2020-08-11] MEDS: VANICREAM MOISTURIZING SKIN CREAM 113GM TUBE TOP SCH (09:08)
[2020-08-11 22:31] VITALS: BP 190/79
[2020-08-11] MEDS: SENOKOT S TAB PO SCH (22:36)
[2020-08-11] MEDS: PRAMIPEXOLE (MIRAPEX) 0.125 MG TAB PO SCH (22:36)
[2020-08-11 23:20] VITALS: BP_SYST 200
[2020-08-12] MEDS ORDERED: **hydrALAZINE HCL** 25 MG TAB PO ONE
[2020-08-12] MEDS: IPRATROPIUM 0.5MG/ALBUTEROL 2.5MG INH SOL UD 3ML (DUONEB) NEB SCH ×7 (00:17→22:35)
[2020-08-12 00:54] VITALS: BP_SYST 182; BP_SYST 204
[2020-08-12 02:47] VITALS: BP_SYST 162
[2020-08-12] MEDS: guaiFENesin SYRUP 200 MG/10 ML UDC PO SCH ×3 (05:12→17:48)
[2020-08-12] MEDS: HEPARIN SOD (PORCINE) 5000UNITS/ML 1ML VIAL/SYRINGE SQ SCH ×3 (05:12→21:25)
[2020-08-12 05:23] VITALS: BP_SYST 164
[2020-08-12 06:00] VITALS: BP 164/73
[2020-08-12] MEDS: (RENVELA) SEVELAMER **CARBONate** 800 MG TAB PO SCH ×3 (08:00→17:48)
[2020-08-12] MEDS: SUCROFERRIC OXYHYDROXIDE 500MG CHEW TAB (VELPHORO) PO SCH ×3 (08:00→17:48)
[2020-08-12] MEDS: [UNRECOGNIZED DRUG - REMARK] XX SCH (08:00)
[2020-08-12] MEDS: LIDOCAINE 5% (LIDODERM) PATCH TD SCH (09:00)
[2020-08-12] MEDS: levETIRAcetam 250MG TABLET (KEPPRA) PO SCH (09:25)
[2020-08-12] MEDS: AMIODARONE 200 MG TAB (PACERONE) PO SCH (09:25)
[2020-08-12] MEDS: PANTOPRAZOLE 40MG TAB (PROTONIX) PO SCH (09:25)
[2020-08-12] MEDS: SERTRALINE 100 MG TAB PO SCH (09:25)
[2020-08-12] MEDS: VANICREAM MOISTURIZING SKIN CREAM 113GM TUBE TOP SCH (09:29)
--- NOTE | 2020-08-12 11:25 | IPN ---
DATE: 08/10/2020 SUBJECTIVE: Patient was seen and examined at bedside today morning during hemodialysis. He is afebrile and hemodynamically stable. He is tolerating the hemodialysis procedure well. He denies any active complaints. OBJECTIVE: VITAL SIGNS: Temperature 98.7 degrees Fahrenheit, blood pressure 122/62, pulse 67, respiratory rate 18, saturating 97% on trach collar at 5 liters. INTAKE AND OUTPUT: There is no urine output recorded. Weight in the bed scale is not available. PHYSICAL EXAMINATION: GENERAL: Patient is awake, alert and oriented x3, lying in bed, morbidly obese, getting hemodialysis done. HEAD/NECK: Extraocular muscles intact. Pupils equally round and reactive to light. Neck supple. He has a trach collar. CARDIOVASCULAR: S1, S2, regular rate. Trace edema of the bilateral lower extremities. RESPIRATORY: Chest is clear to auscultation bilaterally as far as I could hear. ABDOMEN: Soft, obese. Positive bowel sounds. I could not appreciate any organomegaly. MUSCULOSKELETAL: Decreased range of movement of the bilateral lower extremities because of chronically bedridden status. DIVORCE ATTORNEY: No significant focal deficit. He moves bilateral upper extremities and tries to communicate with the trach collar. LABORATORY REVIEW: CBC showed WBC 7, hemoglobin 10.9, platelets 145,000. BMP showed sodium 136, potassium 5.3, chloride 100, bicarb 30, BUN 21, creatinine 4.9. Phosphorus 3.7. Albumin 2.2. CURRENT INPATIENT MEDICATIONS: Patient's medications were all reviewed by myself. There is no significant change in the medications today as compared with the last time when he was evaluated. ASSESSMENT AND PLAN: 1. End-stage renal disease: Patient is being dialyzed according to his Wednesday, , Wednesday schedule. Volume status is optimal. Ultrafiltration goal is 2.5 liters today. 2. Chronic hypotension: Blood pressure is controlled with current dose of Midodrine. 3. Chronic kidney disease/mineral bone disease: Continue current dose of Velphoro and Renvela. Phosphorus level is within the acceptable range. 4. Hyperkalemia: Patient is being dialyzed with 2k bath, potassium should improve after dialysis. MTDD
[2020-08-12] MEDS: IPRATROPIUM 0.5MG/ALBUTEROL 2.5MG INH SOL UD 3ML (DUONEB) NEB PRN (19:37)
[2020-08-12] MEDS: SENOKOT S TAB PO SCH (21:24)
[2020-08-12] MEDS: PRAMIPEXOLE (MIRAPEX) 0.125 MG TAB PO SCH (21:24)
[2020-08-12] MEDS: ALPRAZolam 0.25 MG TAB PO PRN (21:24)
[2020-08-12] MEDS: oxyCODONE 5MG TAB PO PRN (21:25)
[2020-08-13] MEDS: guaiFENesin SYRUP 200 MG/10 ML UDC PO SCH ×4 (00:28→17:18)
[2020-08-13] MEDS: IPRATROPIUM 0.5MG/ALBUTEROL 2.5MG INH SOL UD 3ML (DUONEB) NEB SCH ×6 (03:15→23:06)
[2020-08-13] MEDS: [UNRECOGNIZED DRUG - REMARK] XX SCH (05:46)
[2020-08-13] MEDS: HEPARIN SOD (PORCINE) 5000UNITS/ML 1ML VIAL/SYRINGE SQ SCH ×3 (05:57→21:36)
[2020-08-13] MEDS: levETIRAcetam 250MG TABLET (KEPPRA) PO SCH (05:57)
[2020-08-13] MEDS: SERTRALINE 100 MG TAB PO SCH (05:58)
[2020-08-13] MEDS: AMIODARONE 200 MG TAB (PACERONE) PO SCH (05:58)
[2020-08-13] MEDS: PANTOPRAZOLE 40MG TAB (PROTONIX) PO SCH (05:58)
[2020-08-13 06:00] VITALS: BP 130/49
[2020-08-13] MEDS: LIDOCAINE 5% (LIDODERM) PATCH TD SCH (06:05)
[2020-08-13] MEDS: ALPRAZolam 0.25 MG TAB PO PRN ×2 (07:50→21:35)
[2020-08-13] MEDS: SUCROFERRIC OXYHYDROXIDE 500MG CHEW TAB (VELPHORO) PO SCH ×3 (07:50→17:18)
[2020-08-13] MEDS: (RENVELA) SEVELAMER **CARBONate** 800 MG TAB PO SCH ×3 (07:50→17:18)
[2020-08-13] MEDS: oxyCODONE 5MG TAB PO PRN ×2 (07:51→21:35)
[2020-08-13] MEDS: VANICREAM MOISTURIZING SKIN CREAM 113GM TUBE TOP SCH (07:51)
[2020-08-13 10:13] LABS: BASO # 0.1 10^3/uL (0.0-0.2); BASO % 0.8 % (0.0-1.0); EOS # 0.4 10^3/uL (0.0-0.5); EOS % 6.5 % (0.0-3.0); HEMATOCRIT 34.8 % (42.0-52.0); HEMOGLOBIN 10.7 g/dl (13.5-17.5); LYMPH # 1.8 10^3/uL (1.5-5.0); LYMPH % 26.5 % (24.0-44.0); MEAN CORPUSCULAR HGB CONC 30.7 g/dl (32.0-36.5); MEAN CORPUSCULAR VOLUME 94.3 fl (80.0-96.0); MONO # 0.3 10^3/uL (0.0-0.8); MONO % 4.8 % (0.0-5.0); NEUTROPHILS % 60.8 % (36.0-66.0); PLATELET COUNT, AUTOMATED 120 10^3/uL (150-450); RED BLOOD COUNT 3.69 10^6/uL (4.30-6.10); WHITE BLOOD COUNT 6.6 10^3/uL (4.0-10.0)
[2020-08-13 10:33] LABS: ALBUMIN 2.3 GM/DL (3.2-5.2); BILIRUBIN,TOTAL 0.6 MG/DL (0.2-1.0); CALCIUM LEVEL 8.8 MG/DL (8.5-10.1); CREATININE FOR GFR 4.03 MG/DL (0.70-1.30); PHOSPHORUS LEVEL 2.7 MG/DL (2.5-4.9); POTASSIUM SERUM 3.8 MEQ/L (3.5-5.1)
--- NOTE | 2020-08-13 13:58 | IPN ---
DATE: 08/13/2020 SUBJECTIVE: Patient is seen and examined at the bedside today morning during hemodialysis. He is tolerating the hemodialysis procedure well. He denies any active complaints at this time. PHYSICAL EXAMINATION: VITAL SIGNS: Temperature is 98.4 degrees Fahrenheit, blood pressure is 130/49, pulse is 68, respiratory rate is 18, saturating 98% on room air. Intake and output: There is no urine output recorded. Weight on the bed scale is not available. GENERAL: Patient is awake, alert and oriented x3, laying in bed, morbidly obese, getting hemodialysis. HEAD AND NECK: Extraocular muscles intact. Pupils equally round and reactive to light. Neck is supple. He has a trach collar. CARDIOVASCULAR: S1, S2, regular rate. No edema of the bilateral lower extremities. RESPIRATORY: Chest is clear to auscultation bilaterally. Bilateral equal air entry. ABDOMEN: Soft, obese, positive bowel sounds. I could not appreciate any organomegaly. MUSCULOSKELETAL: Decreased range of movement of bilateral lower extremities because of chronically bed-ridden status. He is wearing waffle boots on both legs. SODA CLERK: No focal deficit. Power is 5/5 in bilateral upper extremities. LABORATORY DATA: CBC showed WBC of 6.6, hemoglobin 10.7, platelets of 120,000. BMP showed a sodium of 137, potassium 3.8, chloride 100, bicarbonate 30, BUN 15, creatinine is 4. CURRENT INPATIENT MEDICATIONS: The patients medications were all reviewed by myself. There is no significant change in the medications today. ASSESSMENT AND PLAN: 1. Endstage renal disease. Patient is being dialyzed according to his regular schedule. Ultrafiltration goal is 2 liters as tolerated by his blood pressure. 2. Chronic kidney disease, mineral bone disease, continue Renvela and Velphoro. Phosphorus level is optimal. 3. Chronic hypotension. Continue current dose of Midodrine. MTDD
[2020-08-13] MEDS: IPRATROPIUM 0.5MG/ALBUTEROL 2.5MG INH SOL UD 3ML (DUONEB) NEB PRN (17:31)
--- NOTE | 2020-08-13 20:07 | IPNPDOC ---
Date Seen The patient was seen on 08/13/20. Progress Note SUBJECTIVE: No acute complaints. Continues to awaiting placement in [place], no HD beds for next four weeks possibly. OBJECTIVE: PHYSICAL EXAMINATION: VS: Please see below GENERAL: awake, alert, oriented to self and place not to time, communicates by mouthing his words, NAD, responding appropriately HEENT: anicteric sclerae, no nasal discharges, no throat exudates, no oral lesions, PERRL, EOM intact NECK: supple, no cervical tenderness, no bruit noted, no rigidity noted, trach in place by collar, no blockage CHEST: clear breath sounds, equal chest expansion, no rales or wheezing CVS; s1 and s2 distinct, no murmurs audible note, no rubs, or thrills, ABDOMEN: soft, positive normoactive bowel sounds, no tenderness, no rigidity , no guarding noted EXTREMITIES: no limitation of ROM, no joint swelling, no calf tenderness, no atrophy, weak all over, chronic upper and lower ext swelling CINDER SNAPPER; awake, alert, oriented x 2 , CN II-XII grossly intact, no focal sensory or motor deficits Psych, no anxiety, comfortable, no hallucinations or delusions, depressed mood, no suicidal ideation CURRENT MEDICATIONS: Please see below IMAGING/MICROBIOLOGY/LABORATORY: Please see below ASSESSMENT: Acute on chronic hypoxic and hypercapnic respiratory failure s/p tracheostomy repair/replacement ESRD on HD (TTHS) Conjuctivitis- improved on abx eye drops Positive sputum cx, likely chronic colonization (MRSA, pseudomonas). CXR neg for PNA. Discussed with Dr. Quesada to hold abx Hypertension Seizure disorder History of afib on amiodarone Secondary hyperparathyroidism Morbidly obese PLAN: * current medications reviewed, continue. No changes. * hemodynamically stable * placement is pending still. * Full code DISPOSITION: Awaiting placement due to needing HD seat. Discussed with discharge planning team. VS, I&O, 24H, Carlie Vital Signs/I&O Vital Signs Date Time Temp Pulse Resp B/P (MAP) Pulse Ox O2 Delivery O2 Flow Rate FiO2 08/13/20 08:21 18 Trach Collar 5.0 28 08/13/20 06:00 98.4 68 130/49 (76) 98 I&O- Last 24 Hours up to 6 AM 08/13/20 06:00 Intake Total 960 ml Output Total 0 ml Balance 960 ml Laboratory Data 24H LABS Laboratory Tests 2 08/13/20 09:39: Immature Granulocyte % (Auto) 0.6, Neutrophils (%) (Auto) 60.8, Lymphocytes (%) (Auto) 26.5, Monocytes (%) (Auto) 4.8, Eosinophils (%) (Auto) 6.5H, Basophils (%) (Auto) 0.8, Neutrophils # (Auto) 4.0, Lymphocytes # (Auto) 1.8, Monocytes # (Auto) 0.3, Eosinophils # (Auto) 0.4, Basophils # (Auto) 0.1, Nucleated Red Blood Cells % (auto) 0.0, Anion Gap 7L, Glomerular Filtration Rate 17.0L, Calcium Level 8.8, Phosphorus Level 2.7, Total Bilirubin 0.6, Aspartate Amino Transf (AST/SGOT) 18, Alanine Aminotransferase (ALT/SGPT) 14, Alkaline Phosp hatase 117, Total Protein 6.0L, Albumin 2.3L, Albumin/Globulin Ratio 0.6 CBC/BMP Laboratory Tests 08/13/20 09:39 Microbiology Microbiology 08/03/20 Eye/Ear/Nose/Throat Culture - Final, Complete Staph.aureus Methicillin Resis Current Medications Current Medications Medications (Trade) Dose Ordered Sig/Alicia Route PRN Reason Start Time Stop Time Status Last Admin Dose Admin Acetaminophen (Tylenol Tab) 650 mg Q6HP PRN PO PAIN / FEVER 06/13/20 04:45 06/16/20 21:00 Albuterol/ Ipratropium (Duoneb (Ipr 0.5mg/Alb 2.5mg)) 3 ml Q2H PRN NEB SHORTNESS OF BREATH 06/11/20 19:45 08/13/20 17:31 Albuterol/ Ipratropium (Duoneb (Ipr 0.5mg/Alb 2.5mg)) 3 ml Q6H PRN NEB SOB/WHEEZING 06/11/20 19:45 06/11/20 19:45 DC Albuterol/ Ipratropium (Duoneb (Ipr 0.5mg/Alb 2.5mg)) 3 ml RQ4H NEB 07/25/20 16:00 08/13/20 19:53 Albuterol/ Ipratropium (Duoneb (Ipr 0.5mg/Alb 2.5mg)) 3 ml RQ6H NEB 06/11/20 20:00 07/25/20 15:32 DC 07/25/20 13:55 Alprazolam (Xanax) 0.25 mg Q6H PRN PO ANXIETY 06/11/20 19:45 08/13/20 07:50 Amiodarone HCl (Pacerone, Cordarone) 200 mg DAILY PO 06/12/20 09:00 08/13/20 05:58 Benzonatate (Tessalon Perles) 100 mg Q8HP PRN PO COUGH 06/13/20 01:15 06/13/20 12:18 Bisacodyl (Dulcolax Suppository) 10 mg DAILYPRN PRN FL CONSTIPATION 06/11/20 19:45 06/15/20 16:46 DC Bisacodyl (Dulcolax Tab) 5 mg DAILY PO 06/16/20 09:00 08/04/20 17:40 DC 08/04/20 10:46 Carbamide Peroxide (Debrox) 3 drop BID 06/12/20 21:00 06/16/20 09:01 DC 06/13/20 12:17 Darbepoetin Jairo (Aranesp (Dialysis Use)) 100 mcg HD IV 08/06/20 11:45 Emollient Cream (Vanicream) to bilateral lo... DAILY TOP 08/05/20 09:00 08/13/20 07:51 Guaifenesin (Robitussin) 5 ml Q6H PO 07/28/20 12:00 08/13/20 17:18 Heparin Sodium (Heparin (Flush)) 200 units ASDIRECTED PRN IV SEE LABEL COMMENTS 06/11/20 19:45 06/11/20 19:49 DC Heparin Sodium (Heparin (Flush)) 200 units ASDIRECTED PRN IV SEE LABEL COMMENTS 06/11/20 19:45 06/20/20 18:55 DC 06/20/20 06:42 Heparin Sodium (Heparin (Flush)) 200 units PICC IV 06/12/20 06:00 06/11/20 19:48 DC Heparin Sodium (Heparin (Flush)) 200 units PICC IV 06/12/20 06:00 06/20/20 18:55 DC 06/20/20 06:41 Heparin Sodium (Porcine) (Heparin) 5,000 units Q8H SQ 06/11/20 22:00 06/13/20 15:19 DC 06/13/20 12:17 Heparin Sodium (Porcine) (Heparin) 5,000 units Q8H SQ 07/25/20 22:00 08/13/20 16:13 Home Med (Med Rec Complete!) ASDIRECTED XX 06/12/20 10:15 06/12/20 10:08 DC Hydralazine HCl (Apresoline) 10 mg Q6H PRN PO SBP>170 06/11/20 19:45 08/06/20 11:39 DC 06/19/20 22:01 Iron (Venofer) 100 mg HD IV 07/11/20 11:30 Levetiracetam (Keppra) 500 mg DAILY PO 06/12/20 09:00 08/13/20 05:57 Lidocaine (Lidoderm Patch) 1 patch DAILY TD 06/12/20 09:00 07/13/20 06:43 Midodrine (Proamatine) 10 mg ASDIRECTED PO 06/11/20 20:30 08/10/20 06:14 Midodrine (Proamatine) 10 mg HD PO 06/11/20 21:00 06/11/20 20:22 DC Miscellaneous (Unresolved Clarification Entry) SEE LABEL COMMENTS DAILY XX 06/24/20 09:00 06/25/20 12:54 DC Non-Formulary Medication ( See Comment Field Below ) CHECK TO SEE IF THE PATIENT... DAILY@0800 XX 06/27/20 08:00 08/10/20 06:36 Non-Formulary Medication ( See Comment Field Below ) REMOVE LIDODERM PATCH DAILY@21 XX 06/11/20 21:00 08/09/20 20:39 Ondansetron HCl (Zofran) 4 mg Q6HP PRN PO NAUSEA OR VOMITING 07/08/20 12:45 08/11/20 21:54 Oxycodone HCl (Roxicodone, Oxyir) 10 mg Q4H PRN PO PAIN 06/11/20 19:45 08/13/20 07:51 Pantoprazole Sodium (Protonix) 40 mg DAILY PO 06/12/20 09:00 08/13/20 05:58 Polyethylene Glycol (Miralax) 1 pkt DAILY PRN PO CONSTIPATION 06/11/20 19:45 06/15/20 16:45 DC Polyethylene Glycol (Miralax) 1 pkt DAILYPRN PRN PO CONSTIPATION 08/04/20 17:45 Polymyxin/ Trimethoprim Sulfate (Polytrim Ophth Drops) 1 drop 6XD OU 08/03/20 15:00 08/10/20 12:00 DC 08/10/20 06:13 Pramipexole Dihydrochloride (Mirapex) 0.125 mg QHS PO 06/11/20 21:00 08/12/20 21:24 Senna/Docusate Sodium (Senokot S) 2 tab QHS PO 08/04/20 21:00 08/12/20 21:24 Sertraline HCl (Zoloft) 100 mg DAILY PO 06/12/20 09:00 08/13/20 05:58 Sevelamer Carbonate (Renvela) 2,400 mg WM PO 06/12/20 08:00 08/13/20 17:18 Sodium Chloride (Saline Lock Flush) 10 ml ASDIRECTED PRN IV SEE LABEL COMMENTS 06/11/20 19:45 06/11/20 19:50 DC Sodium Chloride (Saline Lock Flush) 10 ml ASDIRECTED PRN IV SEE LABEL COMMENTS 06/11/20 19:45 06/20/20 18:55 DC 06/20/20 06:41 Sodium Chloride (Saline Lock Flush) 10 ml PICC IV 06/12/20 06:00 06/11/20 19:49 DC Sodium Chloride (Saline Lock Flush) 10 ml PICC IV 06/12/20 06:00 06/20/20 18:55 DC 06/20/20 06:41 Sucroferric Oxyhydroxide (Velphoro) 500 mg WM PO 07/11/20 12:30 08/13/20 17:18 Allergies Coded Allergies: moxifloxacin (Verified Allergy, Intermediate, RASH, 12/25/19) codeine (Verified Allergy, Unknown, 12/25/19) valsartan (Verified Allergy, Unknown, 12/25/19) Claudette Pdaron MD Aug 13, 2020 20:07
[2020-08-13] MEDS: PRAMIPEXOLE (MIRAPEX) 0.125 MG TAB PO SCH (21:35)
[2020-08-13] MEDS: SENOKOT S TAB PO SCH (21:35)
[2020-08-14] MEDS: guaiFENesin SYRUP 200 MG/10 ML UDC PO SCH ×5 (00:14→23:53)
[2020-08-14] MEDS: IPRATROPIUM 0.5MG/ALBUTEROL 2.5MG INH SOL UD 3ML (DUONEB) NEB SCH ×6 (02:52→23:52)
[2020-08-14] MEDS: HEPARIN SOD (PORCINE) 5000UNITS/ML 1ML VIAL/SYRINGE SQ SCH ×3 (06:28→21:32)
[2020-08-14] MEDS: [UNRECOGNIZED DRUG - REMARK] XX SCH (08:00)
[2020-08-14] MEDS: (RENVELA) SEVELAMER **CARBONate** 800 MG TAB PO SCH ×3 (08:00→18:08)
[2020-08-14] MEDS: SUCROFERRIC OXYHYDROXIDE 500MG CHEW TAB (VELPHORO) PO SCH ×3 (08:00→18:09)
[2020-08-14] MEDS: oxyCODONE 5MG TAB PO PRN ×2 (08:37→21:33)
[2020-08-14] MEDS: SERTRALINE 100 MG TAB PO SCH (08:38)
[2020-08-14] MEDS: levETIRAcetam 250MG TABLET (KEPPRA) PO SCH (08:38)
[2020-08-14] MEDS: AMIODARONE 200 MG TAB (PACERONE) PO SCH (08:38)
[2020-08-14] MEDS: ALPRAZolam 0.25 MG TAB PO PRN ×2 (08:38→21:33)
[2020-08-14] MEDS: PANTOPRAZOLE 40MG TAB (PROTONIX) PO SCH (08:38)
[2020-08-14] MEDS: LIDOCAINE 5% (LIDODERM) PATCH TD SCH (08:39)
[2020-08-14] MEDS: VANICREAM MOISTURIZING SKIN CREAM 113GM TUBE TOP SCH (08:39)
[2020-08-14] MEDS: SENOKOT S TAB PO SCH (21:32)
[2020-08-14] MEDS: PRAMIPEXOLE (MIRAPEX) 0.125 MG TAB PO SCH (21:33)
[2020-08-15] MEDS: IPRATROPIUM 0.5MG/ALBUTEROL 2.5MG INH SOL UD 3ML (DUONEB) NEB SCH ×6 (03:22→23:50)
[2020-08-15 06:00] VITALS: BP 141/69
[2020-08-15] MEDS: guaiFENesin SYRUP 200 MG/10 ML UDC PO SCH ×3 (06:14→18:19)
[2020-08-15] MEDS: SERTRALINE 100 MG TAB PO SCH (06:15)
[2020-08-15] MEDS: HEPARIN SOD (PORCINE) 5000UNITS/ML 1ML VIAL/SYRINGE SQ SCH ×3 (06:15→21:52)
[2020-08-15] MEDS: AMIODARONE 200 MG TAB (PACERONE) PO SCH (06:16)
[2020-08-15] MEDS: LIDOCAINE 5% (LIDODERM) PATCH TD SCH (06:16)
[2020-08-15] MEDS: PANTOPRAZOLE 40MG TAB (PROTONIX) PO SCH (06:16)
[2020-08-15] MEDS: levETIRAcetam 250MG TABLET (KEPPRA) PO SCH (06:16)
[2020-08-15] MEDS: SUCROFERRIC OXYHYDROXIDE 500MG CHEW TAB (VELPHORO) PO SCH ×3 (07:44→18:19)
[2020-08-15] MEDS: (RENVELA) SEVELAMER **CARBONate** 800 MG TAB PO SCH ×3 (07:44→18:19)
[2020-08-15] MEDS: [UNRECOGNIZED DRUG - REMARK] XX SCH (07:44)
[2020-08-15] MEDS: MIDODRINE 5 MG TAB PO SCH (07:45)
[2020-08-15 07:46] VITALS: BP 135/64
[2020-08-15] MEDS: VANICREAM MOISTURIZING SKIN CREAM 113GM TUBE TOP SCH (09:00)
[2020-08-15 09:41] LABS: ALBUMIN 2.2 GM/DL (3.2-5.2); CALCIUM LEVEL 9.3 MG/DL (8.5-10.1); CREATININE FOR GFR 5.21 MG/DL (0.70-1.30); GLOMERULAR FILTRATION RATE 12.6 (>60); PHOSPHORUS LEVEL 3.9 MG/DL (2.5-4.9); POTASSIUM SERUM 4.5 MEQ/L (3.5-5.1)
[2020-08-15] MEDS: IPRATROPIUM 0.5MG/ALBUTEROL 2.5MG INH SOL UD 3ML (DUONEB) NEB PRN (13:29)
[2020-08-15] MEDS: ALPRAZolam 0.25 MG TAB PO PRN ×2 (15:25→21:51)
[2020-08-15] MEDS: oxyCODONE 5MG TAB PO PRN ×2 (15:26→21:52)
[2020-08-15] MEDS: PRAMIPEXOLE (MIRAPEX) 0.125 MG TAB PO SCH (21:51)
[2020-08-15] MEDS: SENOKOT S TAB PO SCH (21:51)
[2020-08-16] MEDS: IPRATROPIUM 0.5MG/ALBUTEROL 2.5MG INH SOL UD 3ML (DUONEB) NEB SCH ×5 (03:48→19:49)
[2020-08-16] MEDS: guaiFENesin SYRUP 200 MG/10 ML UDC PO SCH ×4 (05:40→18:00)
[2020-08-16] MEDS: HEPARIN SOD (PORCINE) 5000UNITS/ML 1ML VIAL/SYRINGE SQ SCH ×3 (05:43→21:07)
[2020-08-16 06:00] VITALS: BP 124/55
[2020-08-16] MEDS: [UNRECOGNIZED DRUG - REMARK] XX SCH (08:00)
[2020-08-16] MEDS: SUCROFERRIC OXYHYDROXIDE 500MG CHEW TAB (VELPHORO) PO SCH ×3 (08:00→18:00)
[2020-08-16] MEDS: (RENVELA) SEVELAMER **CARBONate** 800 MG TAB PO SCH ×3 (08:00→18:00)
[2020-08-16] MEDS: LIDOCAINE 5% (LIDODERM) PATCH TD SCH (08:41)
[2020-08-16 10:12] VITALS: BP 140/64
[2020-08-16] MEDS: levETIRAcetam 250MG TABLET (KEPPRA) PO SCH (10:47)
[2020-08-16] MEDS: AMIODARONE 200 MG TAB (PACERONE) PO SCH (10:47)
[2020-08-16] MEDS: SERTRALINE 100 MG TAB PO SCH (10:47)
[2020-08-16] MEDS: PANTOPRAZOLE 40MG TAB (PROTONIX) PO SCH (10:47)
[2020-08-16] MEDS: VANICREAM MOISTURIZING SKIN CREAM 113GM TUBE TOP SCH (10:48)
--- NOTE | 2020-08-16 11:55 | IPN ---
DATE: 08/15/2020 SUBJECTIVE: Patient is seen and examined at the bedside today morning during hemodialysis procedure. He is tolerating the hemodialysis procedure well. He denies any active complaints at this time. OBJECTIVE: VITAL SIGNS: Temperature 98 degrees Fahrenheit, blood pressure 135/64, pulse 65, respiratory rate 18, saturating 98% on 28% FIO2 via the trach collar. PHYSICAL EXAMINATION: HEAD AND NECK: Extraocular muscles intact. Pupils equally round and reactive to light. Mucous membranes are moist. Neck is supple. He has a trach collar. CARDIOVASCULAR: S1, S2, regular rate. No edema of the bilateral lower extremities. RESPIRATORY: Chest is clear to auscultation bilaterally. Bilateral equal air entry. ABDOMEN: Soft, obese, positive bowel sounds, nontender. No organomegaly. MUSCULOSKELETAL: Decreased range of movement of bilateral lower extremities because of chronic bedridden status. MANAGER BABY: No focal deficit. Patient is awake, able to communicate, follows commands and moves bilateral upper extremities. He is chronically bedridden and does not walk. LABORATORY REVIEW: CBC showed hemoglobin 10.7 two days ago. BMP done today morning showed sodium 138, potassium 4.5, chloride 102, bicarb 29, BUN 19, creatinine is 5.2. Phosphorus 3.9. Albumin 2.2. CURRENT INPATIENT MEDICATIONS: The patients medications were all reviewed by myself. There is no significant change in the medications today since the last visit. ASSESSMENT AND PLAN: 1. End-stage renal disease: Patient is being dialyzed according to his Wednesday, , Wednesday schedule. Ultrafiltration goal is 2.5 liter today. 2. Anemia and end-stage renal disease: Patients hemoglobin is 10.7. He is receiving Aranesp 100 mcg once a week only. 3. Chronic kidney disease/mineral bone disease: Continue current dose of Velphoro and Renvela. Phosphorus levels are controlled. Protein calorie malnutrition: Patient's albumin levels are low. He has been placed on regular diet and he is also getting Nepro with meals. MTDD
[2020-08-16] MEDS: oxyCODONE 5MG TAB PO PRN (21:07)
[2020-08-16] MEDS: PRAMIPEXOLE (MIRAPEX) 0.125 MG TAB PO SCH (21:08)
[2020-08-16] MEDS: ALPRAZolam 0.25 MG TAB PO PRN (21:08)
[2020-08-16] MEDS: SENOKOT S TAB PO SCH (21:08)
[2020-08-17] MEDS: IPRATROPIUM 0.5MG/ALBUTEROL 2.5MG INH SOL UD 3ML (DUONEB) NEB SCH ×7 (00:15→22:55)
[2020-08-17] MEDS: guaiFENesin SYRUP 200 MG/10 ML UDC PO SCH ×5 (00:15→23:06)
[2020-08-17 06:00] VITALS: BP 111/60
[2020-08-17] MEDS: LIDOCAINE 5% (LIDODERM) PATCH TD SCH (06:17)
[2020-08-17] MEDS: HEPARIN SOD (PORCINE) 5000UNITS/ML 1ML VIAL/SYRINGE SQ SCH ×3 (06:23→21:31)
[2020-08-17] MEDS: levETIRAcetam 250MG TABLET (KEPPRA) PO SCH (06:23)
[2020-08-17] MEDS: AMIODARONE 200 MG TAB (PACERONE) PO SCH (06:24)
[2020-08-17] MEDS: SERTRALINE 100 MG TAB PO SCH (06:24)
[2020-08-17] MEDS: PANTOPRAZOLE 40MG TAB (PROTONIX) PO SCH (06:24)
[2020-08-17] MEDS: (RENVELA) SEVELAMER **CARBONate** 800 MG TAB PO SCH ×3 (07:11→18:39)
[2020-08-17] MEDS: [UNRECOGNIZED DRUG - REMARK] XX SCH (07:12)
[2020-08-17] MEDS: SUCROFERRIC OXYHYDROXIDE 500MG CHEW TAB (VELPHORO) PO SCH ×3 (07:12→18:39)
[2020-08-17 08:27] LABS: BASO # 0.1 10^3/uL (0.0-0.2); BASO % 0.7 % (0.0-1.0); EOS # 0.4 10^3/uL (0.0-0.5); EOS % 5.6 % (0.0-3.0); HEMATOCRIT 36.2 % (42.0-52.0); HEMOGLOBIN 10.8 g/dl (13.5-17.5); LYMPH # 2.6 10^3/uL (1.5-5.0); LYMPH % 36.4 % (24.0-44.0); MEAN CORPUSCULAR HEMOGLOBIN 29.2 pg (27.0-33.0); MEAN CORPUSCULAR HGB CONC 29.8 g/dl (32.0-36.5); MEAN CORPUSCULAR VOLUME 97.8 fl (80.0-96.0); MONO # 0.4 10^3/uL (0.0-0.8); MONO % 5.1 % (0.0-5.0); NEUTROPHILS # 3.6 10^3/uL (1.5-8.5); NEUTROPHILS % 51.6 % (36.0-66.0); PLATELET COUNT, AUTOMATED 140 10^3/uL (150-450)
[2020-08-17 08:56] LABS: ALBUMIN 2.1 GM/DL (3.2-5.2); CALCIUM LEVEL 9.3 MG/DL (8.5-10.1); CREATININE FOR GFR 5.28 MG/DL (0.70-1.30); GLOMERULAR FILTRATION RATE 12.4 (>60); PHOSPHORUS LEVEL 4.1 MG/DL (2.5-4.9); POTASSIUM SERUM 4.9 MEQ/L (3.5-5.1)
[2020-08-17] MEDS: VANICREAM MOISTURIZING SKIN CREAM 113GM TUBE TOP SCH (09:00)
[2020-08-17] MEDS: PRAMIPEXOLE (MIRAPEX) 0.125 MG TAB PO SCH (21:30)
[2020-08-17] MEDS: SENOKOT S TAB PO SCH (21:31)
[2020-08-17] MEDS: ALPRAZolam 0.25 MG TAB PO PRN (21:31)
[2020-08-17] MEDS: oxyCODONE 5MG TAB PO PRN (21:32)
[2020-08-18] MEDS: IPRATROPIUM 0.5MG/ALBUTEROL 2.5MG INH SOL UD 3ML (DUONEB) NEB SCH ×6 (02:44→23:10)
[2020-08-18] MEDS: guaiFENesin SYRUP 200 MG/10 ML UDC PO SCH ×4 (05:06→23:24)
[2020-08-18] MEDS: HEPARIN SOD (PORCINE) 5000UNITS/ML 1ML VIAL/SYRINGE SQ SCH ×3 (05:07→21:04)
[2020-08-18 06:00] VITALS: BP 157/66
[2020-08-18] MEDS: [UNRECOGNIZED DRUG - REMARK] XX SCH (07:31)
[2020-08-18] MEDS: LIDOCAINE 5% (LIDODERM) PATCH TD SCH (07:31)
[2020-08-18] MEDS: SUCROFERRIC OXYHYDROXIDE 500MG CHEW TAB (VELPHORO) PO SCH ×3 (08:54→17:32)
[2020-08-18] MEDS: PANTOPRAZOLE 40MG TAB (PROTONIX) PO SCH (08:55)
[2020-08-18] MEDS: levETIRAcetam 250MG TABLET (KEPPRA) PO SCH (08:55)
[2020-08-18] MEDS: VANICREAM MOISTURIZING SKIN CREAM 113GM TUBE TOP SCH (08:55)
[2020-08-18] MEDS: (RENVELA) SEVELAMER **CARBONate** 800 MG TAB PO SCH ×3 (08:55→17:32)
[2020-08-18] MEDS: SERTRALINE 100 MG TAB PO SCH (08:55)
[2020-08-18] MEDS: AMIODARONE 200 MG TAB (PACERONE) PO SCH (08:55)
[2020-08-18] MEDS: ALPRAZolam 0.25 MG TAB PO PRN (21:03)
[2020-08-18] MEDS: PRAMIPEXOLE (MIRAPEX) 0.125 MG TAB PO SCH (21:04)
[2020-08-18] MEDS: oxyCODONE 5MG TAB PO PRN (21:04)
[2020-08-18] MEDS: SENOKOT S TAB PO SCH (21:04)
[2020-08-19] MEDS: IPRATROPIUM 0.5MG/ALBUTEROL 2.5MG INH SOL UD 3ML (DUONEB) NEB SCH ×6 (02:31→23:43)
[2020-08-19 06:00] VITALS: BP 110/56
[2020-08-19] MEDS: HEPARIN SOD (PORCINE) 5000UNITS/ML 1ML VIAL/SYRINGE SQ SCH ×3 (06:00→22:54)
[2020-08-19] MEDS: guaiFENesin SYRUP 200 MG/10 ML UDC PO SCH ×4 (06:00→22:54)
[2020-08-19] MEDS: [UNRECOGNIZED DRUG - REMARK] XX SCH (08:00)
[2020-08-19] MEDS: (RENVELA) SEVELAMER **CARBONate** 800 MG TAB PO SCH ×3 (08:00→17:42)
[2020-08-19] MEDS: SUCROFERRIC OXYHYDROXIDE 500MG CHEW TAB (VELPHORO) PO SCH ×3 (08:00→17:42)
[2020-08-19] MEDS: LIDOCAINE 5% (LIDODERM) PATCH TD SCH (09:00)
[2020-08-19] MEDS: PANTOPRAZOLE 40MG TAB (PROTONIX) PO SCH (09:09)
[2020-08-19] MEDS: SERTRALINE 100 MG TAB PO SCH (09:10)
[2020-08-19] MEDS: levETIRAcetam 250MG TABLET (KEPPRA) PO SCH (09:10)
[2020-08-19] MEDS: VANICREAM MOISTURIZING SKIN CREAM 113GM TUBE TOP SCH (09:12)
[2020-08-19] MEDS: AMIODARONE 200 MG TAB (PACERONE) PO SCH (09:13)
[2020-08-19] MEDS: IPRATROPIUM 0.5MG/ALBUTEROL 2.5MG INH SOL UD 3ML (DUONEB) NEB PRN (10:01)
--- NOTE | 2020-08-19 11:21 | IPN ---
DATE: 08/17/2020 SUBJECTIVE: Patient is seen and examined at the bedside today morning during hemodialysis procedure. He is tolerating the hemodialysis procedure well. He denies any active complaints at this time. OBJECTIVE: VITAL SIGNS: Temperature 98 degrees Fahrenheit, blood pressure 111/60, pulse 68, respiratory rate 20, saturating 95% on trach collar with 28% FIO2. INTAKE AND OUTPUT: There is no urine output recorded today. Ultrafiltration with hemodialysis last time was 2.5 liters. Weight on the bed scale is not available. PHYSICAL EXAMINATION: GENERAL: Patient is awake, alert and oriented x3, laying in bed getting hemodialysis done. HEAD AND NECK: Extraocular muscles intact. Pupils equally round and reactive to light. Neck is supple. He has a trach collar. CARDIOVASCULAR: S1, S2, regular rate. Trace edema of the bilateral lower extremities. RESPIRATORY: Mildly decreased breath sounds at the bases. He is dependent on trach collar. ABDOMEN: Soft, positive bowel sounds, nontender. MUSCULOSKELETAL: Decreased range of movement of bilateral lower extremities. No clubbing or cyanosis. BROILER MANAGER: Power is 5/5 in bilateral upper extremities. He is awake and alert, and follows commands. LABORATORY DATA: CBC showed WBC of 7, hemoglobin 10.8, platelets 140,000. BMP showed sodium 138, potassium 4.9, chloride 102, bicarb 30, BUN 20, creatinine 5.2. IMAGING STUDIES: No new imaging available at this time. CURRENT INPATIENT MEDICATIONS: The patients medications were all reviewed by myself. There is no change in the medications today as compared with last time. ASSESSMENT AND PLAN: 1. End-stage renal disease: Patient is being dialyzed according to his regular Wednesday, , Wednesday schedule. Ultrafiltration goal will be around 2.5 liters as tolerated by his blood pressure. 2. Anemia and end-stage renal disease: Patient is getting Aranesp 100 mcg with dialysis. Hemoglobin level is 10.8, which is optimal at this time. 3. Hypotension: Patient gets Midodrine before dialysis. Blood pressure is controlled. 4. Chronic kidney disease/mineral bone disease: Continue current dose of Renvela and Velphoro. Phosphorus level is within the acceptable range. MTDD
[2020-08-19] MEDS: ALPRAZolam 0.25 MG TAB PO PRN ×2 (11:42→20:49)
[2020-08-19] MEDS: oxyCODONE 5MG TAB PO PRN ×2 (11:44→20:49)
[2020-08-19] MEDS: PRAMIPEXOLE (MIRAPEX) 0.125 MG TAB PO SCH (20:49)
[2020-08-19] MEDS: SENOKOT S TAB PO SCH (20:49)
[2020-08-20] MEDS: IPRATROPIUM 0.5MG/ALBUTEROL 2.5MG INH SOL UD 3ML (DUONEB) NEB SCH ×6 (03:47→23:27)
[2020-08-20 06:00] VITALS: BP 146/63
[2020-08-20] MEDS: guaiFENesin SYRUP 200 MG/10 ML UDC PO SCH ×3 (06:00→18:00)
[2020-08-20] MEDS: levETIRAcetam 250MG TABLET (KEPPRA) PO SCH (06:01)
[2020-08-20] MEDS: AMIODARONE 200 MG TAB (PACERONE) PO SCH (06:01)
[2020-08-20] MEDS: HEPARIN SOD (PORCINE) 5000UNITS/ML 1ML VIAL/SYRINGE SQ SCH ×3 (06:01→22:14)
[2020-08-20] MEDS: PANTOPRAZOLE 40MG TAB (PROTONIX) PO SCH (06:01)
[2020-08-20] MEDS: SERTRALINE 100 MG TAB PO SCH (06:01)
[2020-08-20] MEDS: [UNRECOGNIZED DRUG - REMARK] XX SCH (06:02)
[2020-08-20] MEDS: LIDOCAINE 5% (LIDODERM) PATCH TD SCH (06:03)
[2020-08-20] MEDS: SUCROFERRIC OXYHYDROXIDE 500MG CHEW TAB (VELPHORO) PO SCH ×3 (08:00→18:00)
[2020-08-20] MEDS: (RENVELA) SEVELAMER **CARBONate** 800 MG TAB PO SCH ×3 (08:00→18:00)
[2020-08-20] MEDS: VANICREAM MOISTURIZING SKIN CREAM 113GM TUBE TOP SCH (09:00)
[2020-08-20] MEDS: ALPRAZolam 0.25 MG TAB PO PRN ×2 (12:35→22:14)
[2020-08-20] MEDS: oxyCODONE 5MG TAB PO PRN ×2 (12:36→22:15)
[2020-08-20] MEDS: MIDODRINE 5 MG TAB PO SCH (13:03)
--- NOTE | 2020-08-20 15:07 | IPN ---
DATE: 08/20/2020 SUBJECTIVE: Matthew is seen and examined this afternoon in the hemodialysis unit, receiving his treatment. Has had no issues with his treatment. Tolerating ultrafiltration well and offers no complaints. Temperature 96.3, pulse 75, respiratory rate 18, blood pressure 146/63, saturating 93% on trach collar. Intake yesterday was 1400. Weight in the bed scale today is not recorded. GENERAL: Patient is seen in the hemodialysis unit receiving his dialysis treatment. Extraocular muscles are intact. He is able to communicate by mouth words. Pupils are round and reactive to light. Neck is supple. There is a trach collar. S1, S2, regular rate. There is trace lower extremity edema. Breath sounds are distant but symmetric. He is dependent on trach collar. ABDOMEN: Soft, obese, and nontender. MUSCULOSKELETAL: There is decreased range of motion of the lower extremities. There is no clubbing or cyanosis. NEUROLOGIC: He is awake, alert, oriented times three, and cooperative with physical exam. LABORATORY DATA: White count 7.0, hemoglobin 10.8. Sodium 138, potassium 4.9. INPATIENT MEDICATIONS: Reviewed by myself and no change from prior. PROBLEMS: 1. End-stage renal disease, on hemodialysis on Wednesday, , Wednesday schedule. He is being dialyzed today. Ultrafiltration goal is 2-3 liters as tolerated by his blood pressure. Volume status is acceptable, electrolytes are within normal limits, and lab work is checked intermittently. 2. Anemia of end-stage renal disease. He continues on Aranesp with hemodialysis, and his hemoglobin is at goal. 3. Hypotension. Patient received midodrine before dialysis, and he has not had persistent hypotension with his fluid removal. 4. Chronic kidney disease, mineral bone disease. Continue Renvela and Velphoro. Phosphorus level is checked intermittently. MTDD
[2020-08-20] MEDS: SENOKOT S TAB PO SCH (22:14)
[2020-08-20] MEDS: PRAMIPEXOLE (MIRAPEX) 0.125 MG TAB PO SCH (22:14)
[2020-08-21] MEDS: IPRATROPIUM 0.5MG/ALBUTEROL 2.5MG INH SOL UD 3ML (DUONEB) NEB SCH ×6 (02:49→23:11)
[2020-08-21 06:00] VITALS: BP 151/74
[2020-08-21] MEDS: guaiFENesin SYRUP 200 MG/10 ML UDC PO SCH ×5 (06:25→23:03)
[2020-08-21] MEDS: HEPARIN SOD (PORCINE) 5000UNITS/ML 1ML VIAL/SYRINGE SQ SCH ×3 (06:25→21:55)
[2020-08-21] MEDS: [UNRECOGNIZED DRUG - REMARK] XX SCH (08:00)
[2020-08-21] MEDS: LIDOCAINE 5% (LIDODERM) PATCH TD SCH (09:00)
[2020-08-21] MEDS: SUCROFERRIC OXYHYDROXIDE 500MG CHEW TAB (VELPHORO) PO SCH ×3 (09:46→18:15)
[2020-08-21] MEDS: SERTRALINE 100 MG TAB PO SCH (09:46)
[2020-08-21] MEDS: AMIODARONE 200 MG TAB (PACERONE) PO SCH (09:46)
[2020-08-21] MEDS: levETIRAcetam 250MG TABLET (KEPPRA) PO SCH (09:46)
[2020-08-21] MEDS: PANTOPRAZOLE 40MG TAB (PROTONIX) PO SCH (09:46)
[2020-08-21] MEDS: (RENVELA) SEVELAMER **CARBONate** 800 MG TAB PO SCH ×3 (09:46→18:15)
[2020-08-21] MEDS: VANICREAM MOISTURIZING SKIN CREAM 113GM TUBE TOP SCH (09:54)
[2020-08-21] MEDS: ALPRAZolam 0.25 MG TAB PO PRN (21:55)
[2020-08-21] MEDS: SENOKOT S TAB PO SCH (21:55)
[2020-08-21] MEDS: PRAMIPEXOLE (MIRAPEX) 0.125 MG TAB PO SCH (21:55)
[2020-08-21] MEDS: oxyCODONE 5MG TAB PO PRN (21:56)
[2020-08-22] MEDS: IPRATROPIUM 0.5MG/ALBUTEROL 2.5MG INH SOL UD 3ML (DUONEB) NEB SCH ×5 (03:17→23:26)
[2020-08-22 06:00] VITALS: BP 162/71
[2020-08-22] MEDS: SERTRALINE 100 MG TAB PO SCH (06:42)
[2020-08-22] MEDS: AMIODARONE 200 MG TAB (PACERONE) PO SCH (06:42)
[2020-08-22] MEDS: PANTOPRAZOLE 40MG TAB (PROTONIX) PO SCH (06:42)
[2020-08-22] MEDS: levETIRAcetam 250MG TABLET (KEPPRA) PO SCH (06:43)
[2020-08-22] MEDS: HEPARIN SOD (PORCINE) 5000UNITS/ML 1ML VIAL/SYRINGE SQ SCH ×3 (06:43→22:07)
[2020-08-22] MEDS: [UNRECOGNIZED DRUG - REMARK] XX SCH (06:43)
[2020-08-22] MEDS: guaiFENesin SYRUP 200 MG/10 ML UDC PO SCH ×3 (06:43→17:50)
[2020-08-22] MEDS: VANICREAM MOISTURIZING SKIN CREAM 113GM TUBE TOP SCH (06:44)
[2020-08-22] MEDS: LIDOCAINE 5% (LIDODERM) PATCH TD SCH (06:44)
[2020-08-22] MEDS: SUCROFERRIC OXYHYDROXIDE 500MG CHEW TAB (VELPHORO) PO SCH ×3 (07:47→17:50)
[2020-08-22] MEDS: (RENVELA) SEVELAMER **CARBONate** 800 MG TAB PO SCH ×3 (07:47→17:51)
[2020-08-22] MEDS: MIDODRINE 5 MG TAB PO SCH (09:07)
[2020-08-22 10:26] LABS: HEMATOCRIT 37.1 % (42.0-52.0); HEMOGLOBIN 11.4 g/dl (13.5-17.5); MEAN CORPUSCULAR HEMOGLOBIN 30.1 pg (27.0-33.0); MEAN CORPUSCULAR HGB CONC 30.7 g/dl (32.0-36.5); MEAN CORPUSCULAR VOLUME 97.9 fl (80.0-96.0); PLATELET COUNT, AUTOMATED 145 10^3/uL (150-450); RED BLOOD COUNT 3.79 10^6/uL (4.30-6.10); WHITE BLOOD COUNT 5.9 10^3/uL (4.0-10.0)
[2020-08-22 11:28] LABS: CALCIUM LEVEL 9.2 MG/DL (8.5-10.1); CREATININE FOR GFR 5.48 MG/DL (0.70-1.30); GLOMERULAR FILTRATION RATE 11.9 (>60); POTASSIUM SERUM 4.7 MEQ/L (3.5-5.1)
--- NOTE | 2020-08-22 14:58 | IPN ---
DATE: 08/22/2020 SUBJECTIVE: Matthew is seen and examined this morning in the hemodialysis unit receiving his maintenance treatment. His treatment is uneventful and he denies any overnight events or complaints. Goal fluid removal today is 3 liters as tolerated by hemodynamics. He reports that he has lost weight while in the hospital, but he has been unable to be weighed due to morbid obesity. PHYSICAL EXAMINATION: Vital signs: Temperature 98.8, pulse 76, respiratory rate 18, blood pressure 162/71, saturating 97% on trach collar. Intake yesterday was 1435. Weight on the bed scale is not recorded. General: Patient is seen in the dialysis unit receiving his treatment lying in bed comfortable, in no apparent distress. HEENT: Extraocular muscles are intact. Tongue is moist. Neck: Supple. Jugular veins are not elevated. Heart: Sounds are regular, S1 and S2. Extremities: There is no edema in the extremities. There is no cyanosis or clubbing. There is a patent fistula in the right arm which is presently in use. Respiratory: There is a trach collar and anterior auscultation only reveals symmetric breath sounds. Abdomen: Soft, obese and nontender. There is some dependent edema in the presacral area and the abdominal flanks. Neurologic: He is oriented times 3, interactive, conversational and appropriate and at baseline mentation. Skin: Normal temperature and turgor. LABORATORY DATA: White count 5.9, hemoglobin 11.4, platelets 145. Sodium 135, potassium 4.7. INPATIENT MEDICATIONS: Reviewed by myself and no change from prior. PROBLEMS/PLAN: 1. End-stage renal disease: On hemodialysis on a Wednesday, Wednesday, Wednesday schedule. Patient is dialyzed today with goal fluid removal of about 3 liters as tolerated by hemodynamics. His labs are checked intermittently and his electrolytes are acceptable and his volume status is well compensated and he is following fluid restriction. 2. Anemia and end-stage renal disease: His hemoglobin is 11.4 which is optimal and he is receiving low dose Aranesp once a week and we will hold it if his hemoglobin remains above 11. 3. Hypotension: Patient gets midodrine before dialysis. Blood pressure is acceptable and he is tolerating fluid removal without hypotension of hemodialysis. 4. Chronic kidney disease, mineral bone disease: Continue current dose of Renvela and Velphoro. His phosphorus levels are checked intermittently and are acceptable as is his calcium level and parathyroid hormone level is also in range. He is encouraged for dietary protein intake. MTDD
[2020-08-22] MEDS: IPRATROPIUM 0.5MG/ALBUTEROL 2.5MG INH SOL UD 3ML (DUONEB) NEB PRN (17:33)
[2020-08-22] MEDS: ONDANSETRON 4 MG TAB PO PRN (20:36)
[2020-08-22] MEDS: SENOKOT S TAB PO SCH (22:07)
[2020-08-22] MEDS: oxyCODONE 5MG TAB PO PRN (22:08)
[2020-08-22] MEDS: ALPRAZolam 0.25 MG TAB PO PRN (22:09)
[2020-08-22] MEDS: PRAMIPEXOLE (MIRAPEX) 0.125 MG TAB PO SCH (22:09)
[2020-08-23] MEDS: guaiFENesin SYRUP 200 MG/10 ML UDC PO SCH ×5 (00:10→23:31)
[2020-08-23] MEDS: IPRATROPIUM 0.5MG/ALBUTEROL 2.5MG INH SOL UD 3ML (DUONEB) NEB SCH ×6 (04:01→23:31)
[2020-08-23 06:00] VITALS: BP 142/58
[2020-08-23] MEDS: HEPARIN SOD (PORCINE) 5000UNITS/ML 1ML VIAL/SYRINGE SQ SCH ×3 (06:54→21:54)
[2020-08-23] MEDS: SUCROFERRIC OXYHYDROXIDE 500MG CHEW TAB (VELPHORO) PO SCH ×3 (08:00→18:42)
[2020-08-23] MEDS: (RENVELA) SEVELAMER **CARBONate** 800 MG TAB PO SCH ×3 (08:00→18:42)
[2020-08-23] MEDS: [UNRECOGNIZED DRUG - REMARK] XX SCH (08:00)
[2020-08-23] MEDS: SERTRALINE 100 MG TAB PO SCH (08:54)
[2020-08-23] MEDS: AMIODARONE 200 MG TAB (PACERONE) PO SCH (08:54)
[2020-08-23] MEDS: ALPRAZolam 0.25 MG TAB PO PRN ×2 (08:54→21:54)
[2020-08-23] MEDS: levETIRAcetam 250MG TABLET (KEPPRA) PO SCH (08:54)
[2020-08-23] MEDS: PANTOPRAZOLE 40MG TAB (PROTONIX) PO SCH (08:54)
[2020-08-23] MEDS: oxyCODONE 5MG TAB PO PRN ×3 (08:55→21:55)
[2020-08-23] MEDS: VANICREAM MOISTURIZING SKIN CREAM 113GM TUBE TOP SCH (09:00)
[2020-08-23] MEDS: LIDOCAINE 5% (LIDODERM) PATCH TD SCH (09:00)
--- NOTE | 2020-08-23 09:58 | IPNPDOC ---
Text Note Date of Service The patient was seen on 08/23/20. NOTE Subjective: No any acute events overnight. Continues to awaiting placement in [place] PHYSICAL EXAMINATION: VS: Please see below GENERAL: awake, alert, oriented to self and place not to time HEENT: anicteric sclerae, no nasal discharges, no throat exudates, no oral lesions, PERRL, EOM intact NECK: supple, no cervical tenderness, no bruit noted, no rigidity noted, trach in place by collar, no blockage CHEST: clear breath sounds, equal chest expansion, no rales or wheezing CVS; s1 and s2 distinct, no murmurs audible note, no rubs, or thrills, ABDOMEN: Obese, nontender, nondistended EXTREMITIES: no limitation of ROM, no joint swelling, no calf tenderness, no atrophy, weak all over, chronic upper and lower ext swelling SPIRAL RUNNER; awake, alert, oriented x 2 , CN II-XII grossly intact, no focal sensory or motor deficits Psych, no anxiety, comfortable, no hallucinations or delusions, depressed mood, no suicidal ideation PROBLEMS/PLAN: 50 year old male with multiple comorbidities including ESRD on hemodialysis, currently ALC status pending placement to [facility] facility ESRD on hemodialysis Patient is being dialyzed according to his regular Wednesday, , Wednesday schedule Hypotension. Continue midodrine on dialysis days. Anemia. Stable, monitor and transfuse if indicated. Chronically bedridden. Awaiting placement to [facility]. Chronic respiratory failure status post tracheostomy. VS,Fishbone, I+O VS, Fishbone, I+O Vital Signs Date Time Temp Pulse Resp B/P (MAP) Pulse Ox O2 Delivery O2 Flow Rate FiO2 08/23/20 08:55 16 08/23/20 06:00 98.2 78 142/58 (86) 97 Room Air 08/22/20 22:08 5.0 28 I&O- Last 24 Hours up to 6 AM 08/23/20 06:00 Intake Total 1600 ml Output Total 3000 ml Balance -1400 ml SANTY DUGAN DO Aug 23, 2020 09:58
[2020-08-23] MEDS: PRAMIPEXOLE (MIRAPEX) 0.125 MG TAB PO SCH (21:54)
[2020-08-23] MEDS: SENOKOT S TAB PO SCH (21:54)
[2020-08-24] MEDS: IPRATROPIUM 0.5MG/ALBUTEROL 2.5MG INH SOL UD 3ML (DUONEB) NEB SCH ×6 (03:19→23:29)
[2020-08-24] MEDS: HEPARIN SOD (PORCINE) 5000UNITS/ML 1ML VIAL/SYRINGE SQ SCH ×3 (05:36→21:50)
[2020-08-24] MEDS: guaiFENesin SYRUP 200 MG/10 ML UDC PO SCH ×3 (05:36→18:18)
[2020-08-24] MEDS: SERTRALINE 100 MG TAB PO SCH (05:37)
[2020-08-24] MEDS: AMIODARONE 200 MG TAB (PACERONE) PO SCH (05:37)
[2020-08-24] MEDS: levETIRAcetam 250MG TABLET (KEPPRA) PO SCH (05:37)
[2020-08-24] MEDS: PANTOPRAZOLE 40MG TAB (PROTONIX) PO SCH (05:38)
[2020-08-24] MEDS: [UNRECOGNIZED DRUG - REMARK] XX SCH (05:38)
[2020-08-24] MEDS: LIDOCAINE 5% (LIDODERM) PATCH TD SCH (05:38)
[2020-08-24 06:00] VITALS: BP 150/68
[2020-08-24] MEDS: ALPRAZolam 0.25 MG TAB PO PRN ×2 (07:51→21:53)
[2020-08-24] MEDS: oxyCODONE 5MG TAB PO PRN ×2 (07:51→21:51)
[2020-08-24] MEDS: VANICREAM MOISTURIZING SKIN CREAM 113GM TUBE TOP SCH (07:54)
[2020-08-24] MEDS: (RENVELA) SEVELAMER **CARBONate** 800 MG TAB PO SCH ×3 (07:54→18:18)
[2020-08-24] MEDS: SUCROFERRIC OXYHYDROXIDE 500MG CHEW TAB (VELPHORO) PO SCH ×3 (07:54→18:19)
[2020-08-24] MEDS: PRAMIPEXOLE (MIRAPEX) 0.125 MG TAB PO SCH (21:50)
[2020-08-24] MEDS: SENOKOT S TAB PO SCH (21:51)
[2020-08-25] MEDS: guaiFENesin SYRUP 200 MG/10 ML UDC PO SCH ×5 (00:24→23:51)
[2020-08-25] MEDS: IPRATROPIUM 0.5MG/ALBUTEROL 2.5MG INH SOL UD 3ML (DUONEB) NEB SCH ×5 (03:30→19:49)
[2020-08-25] MEDS: HEPARIN SOD (PORCINE) 5000UNITS/ML 1ML VIAL/SYRINGE SQ SCH ×3 (05:18→21:45)
[2020-08-25 06:00] VITALS: BP 147/56
[2020-08-25] MEDS: (RENVELA) SEVELAMER **CARBONate** 800 MG TAB PO SCH ×3 (08:30→18:00)
[2020-08-25] MEDS: SUCROFERRIC OXYHYDROXIDE 500MG CHEW TAB (VELPHORO) PO SCH ×3 (08:30→18:00)
[2020-08-25] MEDS: AMIODARONE 200 MG TAB (PACERONE) PO SCH (08:31)
[2020-08-25] MEDS: oxyCODONE 5MG TAB PO PRN ×2 (08:31→21:45)
[2020-08-25] MEDS: ALPRAZolam 0.25 MG TAB PO PRN ×2 (08:31→21:46)
[2020-08-25] MEDS: levETIRAcetam 250MG TABLET (KEPPRA) PO SCH (08:31)
[2020-08-25] MEDS: SERTRALINE 100 MG TAB PO SCH (08:31)
[2020-08-25] MEDS: PANTOPRAZOLE 40MG TAB (PROTONIX) PO SCH (08:31)
[2020-08-25] MEDS: VANICREAM MOISTURIZING SKIN CREAM 113GM TUBE TOP SCH (08:32)
[2020-08-25] MEDS: LIDOCAINE 5% (LIDODERM) PATCH TD SCH (08:32)
[2020-08-25] MEDS: [UNRECOGNIZED DRUG - REMARK] XX SCH (09:00)
[2020-08-25 14:00] VITALS: BP 157/74
[2020-08-25] MEDS: SENOKOT S TAB PO SCH (21:46)
[2020-08-25] MEDS: PRAMIPEXOLE (MIRAPEX) 0.125 MG TAB PO SCH (21:46)
[2020-08-26] MEDS: IPRATROPIUM 0.5MG/ALBUTEROL 2.5MG INH SOL UD 3ML (DUONEB) NEB SCH ×6 (00:13→23:17)
[2020-08-26 04:34] VITALS: BP 163/76
[2020-08-26] MEDS: guaiFENesin SYRUP 200 MG/10 ML UDC PO SCH ×4 (05:17→23:59)
[2020-08-26] MEDS: HEPARIN SOD (PORCINE) 5000UNITS/ML 1ML VIAL/SYRINGE SQ SCH ×3 (05:18→22:00)
[2020-08-26 06:00] VITALS: BP 182/84
[2020-08-26] MEDS: [UNRECOGNIZED DRUG - REMARK] XX SCH (08:00)
[2020-08-26] MEDS: LIDOCAINE 5% (LIDODERM) PATCH TD SCH (09:00)
[2020-08-26] MEDS: SUCROFERRIC OXYHYDROXIDE 500MG CHEW TAB (VELPHORO) PO SCH ×3 (09:43→18:00)
[2020-08-26] MEDS: SERTRALINE 100 MG TAB PO SCH (09:43)
[2020-08-26] MEDS: AMIODARONE 200 MG TAB (PACERONE) PO SCH (09:43)
[2020-08-26] MEDS: PANTOPRAZOLE 40MG TAB (PROTONIX) PO SCH (09:43)
[2020-08-26] MEDS: (RENVELA) SEVELAMER **CARBONate** 800 MG TAB PO SCH ×3 (09:43→18:00)
[2020-08-26] MEDS: levETIRAcetam 250MG TABLET (KEPPRA) PO SCH (09:43)
[2020-08-26] MEDS: VANICREAM MOISTURIZING SKIN CREAM 113GM TUBE TOP SCH (09:47)
[2020-08-26] MEDS: MIDODRINE 5 MG TAB PO SCH (10:14)
--- NOTE | 2020-08-26 13:01 | IPN ---
DATE: 08/24/2020 SUBJECTIVE: Mr. Richard is seen this morning during hemodialysis. He is feeling well and remains at his baseline. He denies any dyspnea or chest pain. He has no nausea or vomiting. He remains on his tracheostomy. PHYSICAL EXAMINATION: VITAL SIGNS: Temperature 98 degrees Fahrenheit, heart is 75 per minute, respiratory rate 16 per minute, blood pressure at present about 100/46 mm of mercury while earlier it was 150/68 mm of mercury and oxygen saturation is 95% on room air. HEENT: Head is atraumatic. NECK: Supple and JVD difficult to be assessed. Tracheostomy is in place. HEART: Regular. LUNGS: Clear to auscultation. ABDOMEN: Obese and nontender. Bowel sounds are normal. EXTREMITIES: Without any signs of clubbing. AV fistula in his right arm is working well. LABORATORY STUDIES: The patient did not have any new labs done today. His labs from August 22 have already been reviewed and they were appropriate. PROBLEMS: * End-stage renal disease - The patient remains on maintenance hemodialysis three times a week and he is being dialyzed today. He is tolerating his dialysis treatment very well. * Protein calorie malnutrition - The patient seems to be quite malnourished as his albumin level is down to 2.1. He has not been eating well as he wishes to lose weight. We will need to increase his protein intake. I will change his diet to high protein with supplements. * Anemia his anemia is stable and we will continue to monitor closely. No added intervention is needed. * Respiratory failure, status post tracheostomy this is a chronic issue and the patient has been stable at present. * Disposition - The patient remains on ALC level, [facility]
[2020-08-26] MEDS: SENOKOT S TAB PO SCH (22:00)
[2020-08-26] MEDS: PRAMIPEXOLE (MIRAPEX) 0.125 MG TAB PO SCH (22:00)
[2020-08-26] MEDS: ALPRAZolam 0.25 MG TAB PO PRN (22:00)
[2020-08-26] MEDS: oxyCODONE 5MG TAB PO PRN (22:02)
[2020-08-27] MEDS ORDERED: NYSTATIN 100,000 UNITS/GM TOPICAL PWD 15 GM TOP PRN (01:00)
[2020-08-27] MEDS: IPRATROPIUM 0.5MG/ALBUTEROL 2.5MG INH SOL UD 3ML (DUONEB) NEB SCH ×6 (02:46→23:08)
[2020-08-27 04:12] LABS: CALCIUM LEVEL 8.2 MG/DL (8.5-10.1); CREATININE FOR GFR 5.36 MG/DL (0.70-1.30); GLOMERULAR FILTRATION RATE 12.2 (>60); POTASSIUM SERUM 4.2 MEQ/L (3.5-5.1)
[2020-08-27 06:00] VITALS: BP 151/61
[2020-08-27] MEDS: levETIRAcetam 250MG TABLET (KEPPRA) PO SCH (06:30)
[2020-08-27] MEDS: HEPARIN SOD (PORCINE) 5000UNITS/ML 1ML VIAL/SYRINGE SQ SCH ×3 (06:30→20:59)
[2020-08-27] MEDS: guaiFENesin SYRUP 200 MG/10 ML UDC PO SCH ×3 (06:30→18:19)
[2020-08-27] MEDS: AMIODARONE 200 MG TAB (PACERONE) PO SCH (06:31)
[2020-08-27] MEDS: PANTOPRAZOLE 40MG TAB (PROTONIX) PO SCH (06:31)
[2020-08-27] MEDS: SERTRALINE 100 MG TAB PO SCH (06:31)
[2020-08-27] MEDS: LIDOCAINE 5% (LIDODERM) PATCH TD SCH (06:32)
[2020-08-27] MEDS: (RENVELA) SEVELAMER **CARBONate** 800 MG TAB PO SCH ×3 (06:32→18:19)
[2020-08-27] MEDS: SUCROFERRIC OXYHYDROXIDE 500MG CHEW TAB (VELPHORO) PO SCH ×3 (06:32→18:19)
[2020-08-27] MEDS: [UNRECOGNIZED DRUG - REMARK] XX SCH (08:00)
[2020-08-27] MEDS: VANICREAM MOISTURIZING SKIN CREAM 113GM TUBE TOP SCH (09:00)
--- NOTE | 2020-08-27 12:04 | IPNPDOC ---
Text Note Date of Service The patient was seen on 08/27/20. NOTE 50 yo patient with chronic respiratory failure S/P Tracheotomy 8 years ago, now requested for a trach change In place is a non cuffed Bivona Silicone tube. Apparently this was requested of Dr. 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 This apparently did not happen. I will need to review this with Dr. Carrasquillo and see what the options are here. VS,Fishbone, I+O VS, Fishbone, I+O Vital Signs Date Time Temp Pulse Resp B/P (MAP) Pulse Ox O2 Delivery O2 Flow Rate FiO2 08/27/20 06:00 98.3 67 20 151/61 (91) 95 Trach Collar 5.0 28 I&O- Last 24 Hours up to 6 AM 08/27/20 06:00 Intake Total 1440 ml Output Total 0 ml Balance 1440 ml RAMILA LUNDBERG MD Aug 27, 2020 12:04
--- NOTE | 2020-08-27 12:43 | IPNPDOC ---
Text Note Date of Service The patient was seen on 08/27/20. NOTE I discussed this with Dr. Carrasquillo. Apparently he has been seen by Dr. Ortega, Thoracic Surgery and has done Trach changes in the past. 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 If Dr. Ortega has done this in the past, I would approach him first as I have not had the previous experience to deal with the anatomic issues. Also he may need to go to the OR to do this. The patient wants a Shiley tube with inner cannula placed and according to Dr. Carrasquillo, this was not possible even in the OR environment Please let me know if Dr. Ortega has any suggestions. Thank you VSCarlie, I+O VSCarlie, I+O Vital Signs Date Time Temp Pulse Resp B/P (MAP) Pulse Ox O2 Delivery O2 Flow Rate FiO2 08/27/20 11:53 Trach Collar 28 08/27/20 06:00 98.3 67 20 151/61 (91) 95 5.0 I&O- Last 24 Hours up to 6 AM 08/27/20 05:59 Intake Total 1440 ml Output Total 0 ml Balance 1440 ml RAMILA LUNDBERG MD Aug 27, 2020 12:43
[2020-08-27 13:42] LABS: HEMATOCRIT 36.7 % (42.0-52.0); PLATELET COUNT, AUTOMATED 166 10^3/uL (150-450); RED BLOOD COUNT 3.67 10^6/uL (4.30-6.10); WHITE BLOOD COUNT 6.5 10^3/uL (4.0-10.0)
[2020-08-27 14:02] LABS: ALBUMIN 2.3 GM/DL (3.2-5.2); CREATININE FOR GFR 6.19 MG/DL (0.70-1.30); GLOMERULAR FILTRATION RATE 10.4 (>60); PHOSPHORUS LEVEL 5.7 MG/DL (2.5-4.9)
[2020-08-27 20:05] VITALS: O2SAT 96
[2020-08-27] MEDS: SENOKOT S TAB PO SCH (21:00)
[2020-08-27] MEDS: ALPRAZolam 0.25 MG TAB PO PRN (21:00)
[2020-08-27] MEDS: PRAMIPEXOLE (MIRAPEX) 0.125 MG TAB PO SCH (21:00)
[2020-08-27] MEDS: oxyCODONE 5MG TAB PO PRN (21:00)
[2020-08-28] MEDS: guaiFENesin SYRUP 200 MG/10 ML UDC PO SCH ×4 (00:18→18:00)
[2020-08-28] MEDS: IPRATROPIUM 0.5MG/ALBUTEROL 2.5MG INH SOL UD 3ML (DUONEB) NEB SCH ×6 (02:45→23:22)
[2020-08-28 03:39] LABS: CALCIUM LEVEL 8.1 MG/DL (8.5-10.1); CREATININE FOR GFR 6.2 MG/DL (0.70-1.30); GLOMERULAR FILTRATION RATE 10.3 (>60); POTASSIUM SERUM 4.3 MEQ/L (3.5-5.1)
[2020-08-28 04:08] LABS: VENOUS HCO3 23.6 MEQ/L (23.0-27.0); VENOUS PARTIAL PRESSURE CO2 50.6 mmHg (38.0-50.0); VENOUS PH 7.287 UNITS (7.330-7.430); VENOUS TOTAL CO2 25.2 MEQ/L (24.0-28.0); VENOUS VENT MODE R/A
[2020-08-28 04:09] LABS: VENOUS BASE EXCESS -3.3 (-2.0-2.0); VENOUS O2 SATURATION 99.1 % (60.0-80.0)
[2020-08-28 04:10] LABS: VENOUS STANDARD HCO3 21.7 MEQ/L
[2020-08-28 06:00] VITALS: BP 183/77
[2020-08-28] MEDS: HEPARIN SOD (PORCINE) 5000UNITS/ML 1ML VIAL/SYRINGE SQ SCH ×3 (06:36→21:29)
[2020-08-28] MEDS: (RENVELA) SEVELAMER **CARBONate** 800 MG TAB PO SCH ×3 (08:00→18:00)
[2020-08-28] MEDS: [UNRECOGNIZED DRUG - REMARK] XX SCH (08:00)
[2020-08-28] MEDS: SUCROFERRIC OXYHYDROXIDE 500MG CHEW TAB (VELPHORO) PO SCH ×3 (08:00→18:00)
[2020-08-28] MEDS: SERTRALINE 100 MG TAB PO SCH (08:01)
[2020-08-28] MEDS: AMIODARONE 200 MG TAB (PACERONE) PO SCH (08:01)
[2020-08-28] MEDS: levETIRAcetam 250MG TABLET (KEPPRA) PO SCH (08:02)
[2020-08-28] MEDS: PANTOPRAZOLE 40MG TAB (PROTONIX) PO SCH (08:02)
[2020-08-28] MEDS: VANICREAM MOISTURIZING SKIN CREAM 113GM TUBE TOP SCH (08:03)
[2020-08-28] MEDS: LIDOCAINE 5% (LIDODERM) PATCH TD SCH (09:00)
[2020-08-28 15:54] VITALS: BP 179/76
[2020-08-28] MEDS ORDERED: **hydrALAZINE** 50 MG TAB PO ONE (16:00)
[2020-08-28] MEDS: PRAMIPEXOLE (MIRAPEX) 0.125 MG TAB PO SCH (21:29)
[2020-08-28] MEDS: oxyCODONE 5MG TAB PO PRN (21:30)
[2020-08-28] MEDS: ALPRAZolam 0.25 MG TAB PO PRN (21:30)
[2020-08-28] MEDS: SENOKOT S TAB PO SCH (21:30)
[2020-08-28 22:24] LABS: CREATININE FOR GFR 5.54 MG/DL (0.70-1.30); GLOMERULAR FILTRATION RATE 11.8 (>60)
[2020-08-28 22:25] LABS: ALBUMIN 2.6 GM/DL (3.2-5.2); CALCIUM LEVEL 8.3 MG/DL (8.5-10.1); PHOSPHORUS LEVEL 4.8 MG/DL (2.5-4.9); POTASSIUM SERUM 3.4 MEQ/L (3.5-5.1)
[2020-08-29] MEDS: guaiFENesin SYRUP 200 MG/10 ML UDC PO SCH ×4 (00:27→18:01)
[2020-08-29] MEDS: IPRATROPIUM 0.5MG/ALBUTEROL 2.5MG INH SOL UD 3ML (DUONEB) NEB SCH ×7 (03:27→23:14)
[2020-08-29 06:00] VITALS: BP 170/72
[2020-08-29] MEDS: SERTRALINE 100 MG TAB PO SCH (06:05)
[2020-08-29] MEDS: PANTOPRAZOLE 40MG TAB (PROTONIX) PO SCH (06:05)
[2020-08-29] MEDS: levETIRAcetam 250MG TABLET (KEPPRA) PO SCH (06:05)
[2020-08-29] MEDS: HEPARIN SOD (PORCINE) 5000UNITS/ML 1ML VIAL/SYRINGE SQ SCH ×3 (06:05→22:22)
[2020-08-29] MEDS: AMIODARONE 200 MG TAB (PACERONE) PO SCH (06:06)
[2020-08-29] MEDS: SUCROFERRIC OXYHYDROXIDE 500MG CHEW TAB (VELPHORO) PO SCH ×3 (06:06→18:00)
[2020-08-29] MEDS: (RENVELA) SEVELAMER **CARBONate** 800 MG TAB PO SCH ×3 (06:06→18:00)
[2020-08-29] MEDS: LIDOCAINE 5% (LIDODERM) PATCH TD SCH (06:07)
[2020-08-29] MEDS: [UNRECOGNIZED DRUG - REMARK] XX SCH (07:53)
[2020-08-29] MEDS: oxyCODONE 5MG TAB PO PRN ×3 (08:23→22:22)
[2020-08-29] MEDS: ALPRAZolam 0.25 MG TAB PO PRN ×3 (08:23→22:22)
[2020-08-29] MEDS: VANICREAM MOISTURIZING SKIN CREAM 113GM TUBE TOP SCH (09:00)
--- NOTE | 2020-08-29 09:21 | IPN ---
DATE: 08/27/2020 Mr. Richard has hemodialysis today. He has been dialyzed every Wednesday, , Wednesday schedule. He is currently on alternative level of care (ALC) level, waiting for a longterm bed. He usually tolerates his dialysis treatment very well. He remains on trach collar, and volume status has been well compensated. He has no new complaints at the time of this dialysis. Temperature 98.3 degrees Fahrenheit, heart rate 64 per minute, respiratory rate 20 per minute, blood pressure 150/60 mm of mercury, and oxygen saturation 94%. Head atraumatic. Trach collar in place. Jugular venous distention (JVD) difficult to be assessed. Heart sounds regular and lungs with diminished breath sounds. Abdomen obese and nontender, and extremities without any cyanosis or clubbing. Neurologically he remains at his baseline mentation. Labs drawn during dialysis showed a WBC count 6.5, hemoglobin 11.0, and hematocrit 36.7. Sodium 138, potassium 5.0, BUN 32, and creatinine 6.19. Calcium 9.0 and phosphorus 5.7. PROBLEMS: 1. End-stage renal disease. Patient tolerating dialysis well. Electrolytes are stable. 2. Respiratory failure. This is chronic and related to morbid obesity, obstructive sleep apnea, and volume status has been very well compensated. We remove about 2.5-3 liters with each dialysis. He is tolerating it well. 3. Anemia. His anemia has been stable and has not required any intervention. DISPOSITION: Patient is currently waiting for a longterm bed. [facility]
--- NOTE | 2020-08-29 13:56 | IPN ---
DATE: 08/29/2020 Mr. Richard is seen this morning during hemodialysis. He remains on alternative level of care (ALC) status waiting for a fci bed. He has chronic tracheostomy and remains on trach collar. He denies any dyspnea, chest pain, nausea, or vomiting. He is bed ridden due to severe spinal stenosis and is not even able to move his lower extremities anymore. PHYSICAL EXAMINATION: Temperature 98.3 degrees Fahrenheit, heart rate 78 per minute, respiratory rate 20 per minute, blood pressure 140/78 mm of mercury, and oxygen saturation 98%. Head is atraumatic. Neck supple, and jugular venous distention (JVD) is difficult to be assessed. Tracheostomy is in place. Heart sounds regular, and lungs clear to auscultation with diminished breath sounds. Abdomen obese and nontender, and bowel sounds are normal. Extremities without any cyanosis of clubbing. Right arm arteriovenous (AV) fistula is currently being used for dialysis. His labs were done on August 27, and they were appropriate with potassium level of 5.0, calcium 9.0, and phosphorus 5.7. BUN was 32 and creatinine 6.19. PROBLEMS: 1. End-stage renal disease. Patient is being dialyzed, and he is tolerating dialysis treatment well. 2. Anemia. His anemia has been stable and does not need any urgent intervention. 3. Respiratory failure related to obstructive sleep apnea and morbid obesity. His volume status is well compensated, and we continue to remove about 2.5-3 liters fluid with each dialysis. DISPOSITION: Patient is waiting for a fci bed. [facility]
[2020-08-29 14:30] VITALS: BP 148/54
[2020-08-29] MEDS: IPRATROPIUM 0.5MG/ALBUTEROL 2.5MG INH SOL UD 3ML (DUONEB) NEB PRN (17:05)
[2020-08-29] MEDS: PRAMIPEXOLE (MIRAPEX) 0.125 MG TAB PO SCH (22:22)
[2020-08-29] MEDS: SENOKOT S TAB PO SCH (22:22)
[2020-08-30] MEDS: guaiFENesin SYRUP 200 MG/10 ML UDC PO SCH ×6 (00:08→23:15)
[2020-08-30] MEDS: IPRATROPIUM 0.5MG/ALBUTEROL 2.5MG INH SOL UD 3ML (DUONEB) NEB SCH ×6 (04:17→23:14)
[2020-08-30] MEDS: HEPARIN SOD (PORCINE) 5000UNITS/ML 1ML VIAL/SYRINGE SQ SCH ×3 (05:50→21:49)
[2020-08-30] MEDS: (RENVELA) SEVELAMER **CARBONate** 800 MG TAB PO SCH ×3 (11:02→18:47)
[2020-08-30] MEDS: AMIODARONE 200 MG TAB (PACERONE) PO SCH (11:02)
[2020-08-30] MEDS: PANTOPRAZOLE 40MG TAB (PROTONIX) PO SCH (11:02)
[2020-08-30] MEDS: SUCROFERRIC OXYHYDROXIDE 500MG CHEW TAB (VELPHORO) PO SCH ×3 (11:02→18:47)
[2020-08-30] MEDS: SERTRALINE 100 MG TAB PO SCH (11:02)
[2020-08-30] MEDS: LIDOCAINE 5% (LIDODERM) PATCH TD SCH (11:03)
[2020-08-30] MEDS: levETIRAcetam 250MG TABLET (KEPPRA) PO SCH (11:03)
[2020-08-30] MEDS: VANICREAM MOISTURIZING SKIN CREAM 113GM TUBE TOP SCH (11:04)
[2020-08-30] MEDS: [UNRECOGNIZED DRUG - REMARK] XX SCH (11:09)
[2020-08-30] MEDS: ALPRAZolam 0.25 MG TAB PO PRN (21:48)
[2020-08-30] MEDS: oxyCODONE 5MG TAB PO PRN (21:48)
[2020-08-30] MEDS: SENOKOT S TAB PO SCH (21:48)
[2020-08-30] MEDS: PRAMIPEXOLE (MIRAPEX) 0.125 MG TAB PO SCH (21:48)
[2020-08-31] MEDS: IPRATROPIUM 0.5MG/ALBUTEROL 2.5MG INH SOL UD 3ML (DUONEB) NEB SCH ×6 (04:00→23:22)
[2020-08-31 06:00] VITALS: BP 130/55
[2020-08-31] MEDS: levETIRAcetam 250MG TABLET (KEPPRA) PO SCH (06:52)
[2020-08-31] MEDS: PANTOPRAZOLE 40MG TAB (PROTONIX) PO SCH (06:52)
[2020-08-31] MEDS: HEPARIN SOD (PORCINE) 5000UNITS/ML 1ML VIAL/SYRINGE SQ SCH ×3 (06:52→22:17)
[2020-08-31] MEDS: guaiFENesin SYRUP 200 MG/10 ML UDC PO SCH ×4 (06:52→22:15)
[2020-08-31] MEDS: SERTRALINE 100 MG TAB PO SCH (06:53)
[2020-08-31] MEDS: AMIODARONE 200 MG TAB (PACERONE) PO SCH (06:53)
[2020-08-31] MEDS: (RENVELA) SEVELAMER **CARBONate** 800 MG TAB PO SCH ×3 (07:44→19:01)
[2020-08-31] MEDS: SUCROFERRIC OXYHYDROXIDE 500MG CHEW TAB (VELPHORO) PO SCH ×3 (07:45→19:01)
[2020-08-31] MEDS: LIDOCAINE 5% (LIDODERM) PATCH TD SCH (07:45)
[2020-08-31] MEDS: [UNRECOGNIZED DRUG - REMARK] XX SCH (08:00)
[2020-08-31] MEDS: VANICREAM MOISTURIZING SKIN CREAM 113GM TUBE TOP SCH (08:22)
[2020-08-31] MEDS: IPRATROPIUM 0.5MG/ALBUTEROL 2.5MG INH SOL UD 3ML (DUONEB) NEB PRN (13:11)
[2020-08-31] MEDS: ALPRAZolam 0.25 MG TAB PO PRN (22:16)
[2020-08-31] MEDS: oxyCODONE 5MG TAB PO PRN (22:16)
[2020-08-31] MEDS: SENOKOT S TAB PO SCH (22:16)
[2020-08-31] MEDS: PRAMIPEXOLE (MIRAPEX) 0.125 MG TAB PO SCH (22:16)
[2020-09-01] MEDS: IPRATROPIUM 0.5MG/ALBUTEROL 2.5MG INH SOL UD 3ML (DUONEB) NEB SCH ×6 (02:40→23:33)
[2020-09-01 05:27] LABS: CALCIUM LEVEL 8.5 MG/DL (8.5-10.1); CREATININE FOR GFR 5.23 MG/DL (0.70-1.30); GLOMERULAR FILTRATION RATE 12.6 (>60); PHOSPHORUS LEVEL 4.2 MG/DL (2.5-4.9); POTASSIUM SERUM 4.1 MEQ/L (3.5-5.1); TROPONIN I 0.06 NG/ML (< 0.10)
[2020-09-01 06:00] VITALS: BP 130/58
[2020-09-01] MEDS: guaiFENesin SYRUP 200 MG/10 ML UDC PO SCH ×3 (06:00→18:46)
[2020-09-01] MEDS: HEPARIN SOD (PORCINE) 5000UNITS/ML 1ML VIAL/SYRINGE SQ SCH ×3 (06:16→21:19)
[2020-09-01 06:26] LABS: VENOUS HCO3 28.9 MEQ/L (23.0-27.0); VENOUS O2 SATURATION 99.4 % (60.0-80.0); VENOUS PARTIAL PRESSURE O2 190.8 mmHg (30.0-50.0); VENOUS STANDARD HCO3 24.6 MEQ/L; VENOUS VENT MODE RA
[2020-09-01] MEDS: [UNRECOGNIZED DRUG - REMARK] XX SCH (08:00)
[2020-09-01] MEDS: SUCROFERRIC OXYHYDROXIDE 500MG CHEW TAB (VELPHORO) PO SCH ×3 (08:00→18:46)
[2020-09-01] MEDS: (RENVELA) SEVELAMER **CARBONate** 800 MG TAB PO SCH ×3 (08:00→18:46)
[2020-09-01 08:11] LABS: ALBUMIN 2.8 GM/DL (3.2-5.2); CALCIUM LEVEL 9.1 MG/DL (8.5-10.1); CREATININE FOR GFR 6.07 MG/DL (0.70-1.30); GLOMERULAR FILTRATION RATE 10.6 (>60); PHOSPHORUS LEVEL 4.2 MG/DL (2.5-4.9); POTASSIUM SERUM 4.2 MEQ/L (3.5-5.1)
[2020-09-01] MEDS: LIDOCAINE 5% (LIDODERM) PATCH TD SCH (09:00)
[2020-09-01] MEDS: PANTOPRAZOLE 40MG TAB (PROTONIX) PO SCH (09:58)
[2020-09-01] MEDS: levETIRAcetam 250MG TABLET (KEPPRA) PO SCH (09:58)
[2020-09-01] MEDS: AMIODARONE 200 MG TAB (PACERONE) PO SCH (09:58)
[2020-09-01] MEDS: SERTRALINE 100 MG TAB PO SCH (09:58)
[2020-09-01] MEDS: oxyCODONE 5MG TAB PO PRN ×2 (09:59→21:19)
[2020-09-01] MEDS: VANICREAM MOISTURIZING SKIN CREAM 113GM TUBE TOP SCH (10:00)
[2020-09-01] MEDS: PRAMIPEXOLE (MIRAPEX) 0.125 MG TAB PO SCH (21:19)
[2020-09-01] MEDS: ALPRAZolam 0.25 MG TAB PO PRN (21:19)
[2020-09-01] MEDS: SENOKOT S TAB PO SCH (21:19)
[2020-09-02] MEDS: guaiFENesin SYRUP 200 MG/10 ML UDC PO SCH ×4 (00:04→17:37)
[2020-09-02 06:00] VITALS: BP 135/56
[2020-09-02] MEDS: HEPARIN SOD (PORCINE) 5000UNITS/ML 1ML VIAL/SYRINGE SQ SCH ×3 (06:10→21:13)
[2020-09-02] MEDS: IPRATROPIUM 0.5MG/ALBUTEROL 2.5MG INH SOL UD 3ML (DUONEB) NEB SCH ×5 (07:15→23:20)
[2020-09-02] MEDS: LIDOCAINE 5% (LIDODERM) PATCH TD SCH (09:00)
[2020-09-02] MEDS: levETIRAcetam 250MG TABLET (KEPPRA) PO SCH (09:07)
[2020-09-02] MEDS: SUCROFERRIC OXYHYDROXIDE 500MG CHEW TAB (VELPHORO) PO SCH ×3 (09:07→17:37)
[2020-09-02] MEDS: PANTOPRAZOLE 40MG TAB (PROTONIX) PO SCH (09:07)
[2020-09-02] MEDS: AMIODARONE 200 MG TAB (PACERONE) PO SCH (09:07)
[2020-09-02] MEDS: SERTRALINE 100 MG TAB PO SCH (09:07)
[2020-09-02] MEDS: (RENVELA) SEVELAMER **CARBONate** 800 MG TAB PO SCH ×3 (09:08→17:37)
[2020-09-02] MEDS: oxyCODONE 5MG TAB PO PRN ×2 (09:08→21:14)
[2020-09-02] MEDS: VANICREAM MOISTURIZING SKIN CREAM 113GM TUBE TOP SCH (09:09)
--- NOTE | 2020-09-02 11:23 | IPN ---
DATE: 08/31/2020 SUBJECTIVE: Patient was seen and examined at the bedside today morning during hemodialysis procedure. He is tolerating the hemodialysis procedure well. He denies any active complaints at this time. Ultrafiltration goal today during dialysis is 3 liters. OBJECTIVE: VITAL SIGNS: Temperature 98.4 degrees Fahrenheit, blood pressure 130/55, pulse 74, respiratory rate 18, saturating 93% on trach collar with 28% FIO2. INTAKE AND OUTPUT: There is no urine output recorded. Weight in the bed scale is not available. PHYSICAL EXAMINATION: GENERAL: Patient is awake, alert and oriented x3, morbidly obese, lying in bed getting hemodialysis done. HEAD/NECK: Extraocular muscles intact. Pupils equally round and reactive to light. Mucous membranes are moist. Neck supple. He has a trach collar. CARDIOVASCULAR: S1, S2, regular rate. No edema of the bilateral lower extremities. RESPIRATORY: Chest is clear to auscultation bilaterally. Bilateral equal air entry. No rales or rhonchi. ABDOMEN: Soft, obese. Positive bowel sounds. Nontender. No organomegaly. MUSCULOSKELETAL: He is wearing waffle boots on the bilateral lower extremities. He has a right arm AV fistula, which is being used for dialysis. 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 LABORATORY REVIEW: CBC is from 08/27/2020 and that was reviewed and BMP is also from 08/27/2020 and that was reviewed. Based upon that, he has been placed on a 2K bath during dialysis. CURRENT INPATIENT MEDICATIONS: Patient's medications were all reviewed by myself. There is no significant change in the medications today as compared with the last time. ASSESSMENT AND PLAN: 1. End-stage renal disease: Patient is being dialyzed according to his regular schedule, 3 liters of fluid will be removed today. 2. Hypertension: Blood pressure is controlled with current dose of Amlodipine 10 mg p.o. daily. 3. Anemia and end-stage renal disease: He is getting Aranesp with dialysis, latest hemoglobin was 11. If it stays 11, then his Aranesp dose will be decreased. MTDD
[2020-09-02] MEDS: ALPRAZolam 0.25 MG TAB PO PRN (21:13)
[2020-09-02] MEDS: PRAMIPEXOLE (MIRAPEX) 0.125 MG TAB PO SCH (21:13)
[2020-09-02] MEDS: SENOKOT S TAB PO SCH (21:14)
[2020-09-03] MEDS: guaiFENesin SYRUP 200 MG/10 ML UDC PO SCH ×4 (00:21→17:43)
[2020-09-03] MEDS: IPRATROPIUM 0.5MG/ALBUTEROL 2.5MG INH SOL UD 3ML (DUONEB) NEB SCH ×5 (02:30→20:35)
[2020-09-03] MEDS: HEPARIN SOD (PORCINE) 5000UNITS/ML 1ML VIAL/SYRINGE SQ SCH ×3 (05:19→21:39)
[2020-09-03] MEDS: levETIRAcetam 250MG TABLET (KEPPRA) PO SCH (05:19)
[2020-09-03] MEDS: SERTRALINE 100 MG TAB PO SCH (05:19)
[2020-09-03] MEDS: PANTOPRAZOLE 40MG TAB (PROTONIX) PO SCH (05:20)
[2020-09-03] MEDS: AMIODARONE 200 MG TAB (PACERONE) PO SCH (05:20)
[2020-09-03] MEDS: LIDOCAINE 5% (LIDODERM) PATCH TD SCH (05:21)
[2020-09-03] MEDS: VANICREAM MOISTURIZING SKIN CREAM 113GM TUBE TOP SCH (05:22)
[2020-09-03] MEDS: SUCROFERRIC OXYHYDROXIDE 500MG CHEW TAB (VELPHORO) PO SCH ×3 (05:33→17:43)
[2020-09-03] MEDS: (RENVELA) SEVELAMER **CARBONate** 800 MG TAB PO SCH ×3 (05:34→17:43)
[2020-09-03 06:00] VITALS: BP 136/88
[2020-09-03] MEDS ORDERED: DARBEPOETIN 100 MCG/0.5 ML *DIALYSIS* SYRINGE (J0882) IV SCH (07:30)
[2020-09-03] MEDS ORDERED: SODIUM CHLORIDE 0.9% 1000ML IV PRN (07:30)
[2020-09-03 09:09] LABS: HEMATOCRIT 36.9 % (42.0-52.0); HEMOGLOBIN 10.8 g/dl (13.5-17.5); MEAN CORPUSCULAR HEMOGLOBIN 30.2 pg (27.0-33.0); MEAN CORPUSCULAR HGB CONC 29.3 g/dl (32.0-36.5); MEAN CORPUSCULAR VOLUME 103.1 fl (80.0-96.0); PLATELET COUNT, AUTOMATED 165 10^3/uL (150-450); RED BLOOD COUNT 3.58 10^6/uL (4.30-6.10); WHITE BLOOD COUNT 6.8 10^3/uL (4.0-10.0)
[2020-09-03 09:38] LABS: ALBUMIN 2.3 GM/DL (3.2-5.2); CALCIUM LEVEL 9.2 MG/DL (8.5-10.1); CREATININE FOR GFR 6.14 MG/DL (0.70-1.30); GLOMERULAR FILTRATION RATE 10.5 (>60); POTASSIUM SERUM 4.8 MEQ/L (3.5-5.1)
[2020-09-03] MEDS: IPRATROPIUM 0.5MG/ALBUTEROL 2.5MG INH SOL UD 3ML (DUONEB) NEB PRN (16:52)
[2020-09-03] MEDS: ALPRAZolam 0.25 MG TAB PO PRN (21:38)
[2020-09-03] MEDS: PRAMIPEXOLE (MIRAPEX) 0.125 MG TAB PO SCH (21:38)
[2020-09-03] MEDS: SENOKOT S TAB PO SCH (21:39)
[2020-09-03] MEDS: oxyCODONE 5MG TAB PO PRN (21:39)
[2020-09-04] MEDS: IPRATROPIUM 0.5MG/ALBUTEROL 2.5MG INH SOL UD 3ML (DUONEB) NEB SCH ×7 (00:01→23:33)
[2020-09-04] MEDS: guaiFENesin SYRUP 200 MG/10 ML UDC PO SCH ×5 (00:02→23:52)
[2020-09-04] MEDS: HEPARIN SOD (PORCINE) 5000UNITS/ML 1ML VIAL/SYRINGE SQ SCH ×3 (05:42→21:49)
[2020-09-04 06:00] VITALS: BP 164/71
--- NOTE | 2020-09-04 07:54 | CR ---
DATE OF CONSULTATION: 09/03/2020 REASON FOR CONSULTATION: Dr. Doty has asked me to see Mr. Richard for a tracheostomy change. Two days ago, I wrote an order to obtain the old records from [facility] for his May admission and they have not appeared to the floor as of yet. Therefore, I am at a loss of what [facility] has offered him. HISTORY OF PRESENT ILLNESS: Mr. Matthew Richard is a 50-year-old white male who underwent tracheostomy in March of 2014, for respiratory failure and eventually sleep apnea secondary to morbid obesity. He has had the tracheostomy since then with multiple changes. 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 Bronchoscopy was undertaken at that time, which showed stenosis at the end of the tracheostomy tube, which measured with a diameter of 3 mm and extended approximately three tracheal rings. It consisted of both granulation tissue and actual scarring stenosis. Eventually, I could only place a #7 endotracheal tube by pushing it through the stenosis, and he was then transferred to [facility] for definitive treatment of his tracheal stenosis. [facility] placed an 8 Biv[place] tracheostomy tube, but did not entertain undertaking any other definitive procedures. I am now being asked to change the tracheostomy tube again. I am rather hesitant to do so. I will therefore, await the notes from [facility] to understand their thinking with regard to his therapeutic options. I think ideally, he should undergo a tracheal resection at a tracheal center. When given the records, I will complete this consultation. MARGO
--- NOTE | 2020-09-04 07:58 | IPN ---
DATE: 09/03/2020 SUBJECTIVE: The patient was seen and examined at the bedside today morning. Patient is getting dialysis. He is tolerating the hemodialysis procedure well. He denies any active complaints at this time. OBJECTIVE: VITAL SIGNS: Temperature is 96.6 degrees Fahrenheit, blood pressure 136/88, pulse 66, respiratory rate is 16, saturating 95% via trach collar at 5 liters. Intake and output: There is no urine output recorded. There is no bed scale weight available. GENERAL: Patient is awake, alert and oriented x3, laying in bed, morbidly obese, getting hemodialysis done. HEAD AND NECK: Extraocular muscles intact. Pupils equally round and reactive to light. Neck is supple. He has a trach collar. CARDIOVASCULAR: S1, S2, regular rate. No edema of the bilateral lower extremities. RESPIRATORY: Chest is clear to auscultation bilaterally. He is trach dependent. ABDOMEN: Soft, obese. I could not appreciate any organomegaly. MUSCULOSKELETAL: He is wearing waffle boots in bilateral lower extremities. 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 LABORATORY DATA: CBC showed a WBC of 6.8, hemoglobin 10.8, platelets are 165,000. BMP showed a sodium of 137, potassium 4.8, chloride 103, bicarbonate 27, BUN 37, creatinine is 6.1. Phosphorus is 7. Albumin is 2.3. CURRENT INPATIENT MEDICATIONS: The patients medications were all reviewed by myself. He continues to be on Aranesp 100 mcg at dialysis. He is also on two different phosphorus binders. No other change in the medications today as compared with the last evaluation. ASSESSMENT AND PLAN: 1. Endstage renal disease. Patient is dialysis dependent. He is on dialysis Wednesday, and Wednesday. He is tolerating the dialysis well today. Ultrafiltration goal will be around 3 liters as tolerated by his blood pressure. 2. Anemia and endstage renal disease, hemoglobin level is optimal with current dose of Aranesp 100 mcg once a week with dialysis. 3. Chronic kidney disease, mineral bone disease. Patients phosphorus level is high today. I am going to adjust his Renvela and Velphoro dose. 4. Hypertension, continue current dose of amlodipine 10 mg p.o. daily. Volume status is being optimized with dialysis. MTDD
[2020-09-04] MEDS: LIDOCAINE 5% (LIDODERM) PATCH TD SCH ×2 (08:55→09:00)
[2020-09-04] MEDS: SUCROFERRIC OXYHYDROXIDE 500MG CHEW TAB (VELPHORO) PO SCH ×4 (08:55→18:00)
[2020-09-04] MEDS: (RENVELA) SEVELAMER **CARBONate** 800 MG TAB PO SCH ×4 (08:56→18:15)
[2020-09-04] MEDS: levETIRAcetam 250MG TABLET (KEPPRA) PO SCH (08:56)
[2020-09-04] MEDS: SERTRALINE 100 MG TAB PO SCH (08:56)
[2020-09-04] MEDS: PANTOPRAZOLE 40MG TAB (PROTONIX) PO SCH (08:56)
[2020-09-04] MEDS: AMIODARONE 200 MG TAB (PACERONE) PO SCH (08:58)
[2020-09-04] MEDS: VANICREAM MOISTURIZING SKIN CREAM 113GM TUBE TOP SCH (08:58)
[2020-09-04] MEDS ORDERED: LIDOCAINE 1% SDV 5ML VIAL SC PRN ×2 (11:30)
[2020-09-04] MEDS ORDERED: SODIUM CHLORIDE 0.9% 1000ML IV PRN (11:30)
[2020-09-04] MEDS: PRAMIPEXOLE (MIRAPEX) 0.125 MG TAB PO SCH (21:50)
[2020-09-04] MEDS: SENOKOT S TAB PO SCH (21:50)
[2020-09-04] MEDS: oxyCODONE 5MG TAB PO PRN (21:51)
[2020-09-04] MEDS: ALPRAZolam 0.25 MG TAB PO PRN (21:51)
[2020-09-05] MEDS: IPRATROPIUM 0.5MG/ALBUTEROL 2.5MG INH SOL UD 3ML (DUONEB) NEB SCH ×6 (03:10→23:42)
[2020-09-05] MEDS: IPRATROPIUM 0.5MG/ALBUTEROL 2.5MG INH SOL UD 3ML (DUONEB) NEB PRN ×2 (05:42→16:22)
[2020-09-05 06:00] VITALS: BP 154/72
[2020-09-05] MEDS: guaiFENesin SYRUP 200 MG/10 ML UDC PO SCH ×3 (06:18→17:48)
[2020-09-05] MEDS: SUCROFERRIC OXYHYDROXIDE 500MG CHEW TAB (VELPHORO) PO SCH ×3 (06:19→17:48)
[2020-09-05] MEDS: HEPARIN SOD (PORCINE) 5000UNITS/ML 1ML VIAL/SYRINGE SQ SCH ×3 (06:19→21:21)
[2020-09-05] MEDS: (RENVELA) SEVELAMER **CARBONate** 800 MG TAB PO SCH ×3 (06:19→17:48)
[2020-09-05] MEDS: levETIRAcetam 250MG TABLET (KEPPRA) PO SCH (06:20)
[2020-09-05] MEDS: PANTOPRAZOLE 40MG TAB (PROTONIX) PO SCH (06:20)
[2020-09-05] MEDS: SERTRALINE 100 MG TAB PO SCH (06:20)
[2020-09-05] MEDS: AMIODARONE 200 MG TAB (PACERONE) PO SCH (06:20)
[2020-09-05] MEDS: LIDOCAINE 5% (LIDODERM) PATCH TD SCH (09:00)
[2020-09-05] MEDS: VANICREAM MOISTURIZING SKIN CREAM 113GM TUBE TOP SCH (09:00)
[2020-09-05] MEDS: ALPRAZolam 0.25 MG TAB PO PRN ×2 (14:15→21:22)
[2020-09-05] MEDS ORDERED: DORNASE INHALATION SOLN 1 MG/ML 2.5 ML AMP (J7639 PER 1MG) INH ONE (15:15)
--- NOTE | 2020-09-05 15:28 | IPNPDOC ---
Text Note Date of Service The patient was seen on 09/05/20. NOTE Subjective:No any acute events overnight. Continues to awaiting placement in [place]. Patient received dialysis today. PHYSICAL EXAMINATION: VS: Please see below GENERAL: awake, alert, oriented to self and place not to time HEENT: anicteric sclerae, no nasal discharges, no throat exudates, no oral lesions, PERRL, EOM intact NECK: supple, no cervical tenderness, no bruit noted, no rigidity noted, trach in place by collar, no blockage CHEST: clear breath sounds, equal chest expansion, no rales or wheezing CVS; s1 and s2 distinct, no murmurs audible note, no rubs, or thrills, ABDOMEN: Obese, nontender, nondistended EXTREMITIES: no limitation of ROM, no joint swelling, no calf tenderness, no atrophy, weak all over, chronic upper and lower ext swelling 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 ESRD on hemodialysis Patient is being dialyzed according to his regular Wednesday, , Wednesday schedule Hypotension. Continue midodrine on dialysis days. Anemia. Stable, monitor and transfuse if indicated. hemoglobin level is optimal with current dose of Aranesp 100 mcg once a week with dialysis Chronically bedridden. Awaiting placement to snf. Chronic respiratory failure status post tracheostomy. Dr. Otrega consulted patient. He is waiting for notes from [facility] about previous tracheostomy changes Chronic kidney disease, mineral bone disease Renvela and Velphoro dose VS,Fishbone, I+O VS, Fishbone, I+O Vital Signs Date Time Temp Pulse Resp B/P (MAP) Pulse Ox O2 Delivery O2 Flow Rate FiO2 09/05/20 07:40 5.0 28 09/05/20 06:00 98.7 83 18 154/72 (99) 95 Nasal Cannula I&O- Last 24 Hours up to 6 AM 09/05/20 05:59 Intake Total 2610 ml Balance 2610 ml SANTY DUGAN DO Sep 05, 2020 15:28
[2020-09-05] MEDS: oxyCODONE 5MG TAB PO PRN (21:22)
[2020-09-05] MEDS: PRAMIPEXOLE (MIRAPEX) 0.125 MG TAB PO SCH (21:22)
[2020-09-05] MEDS: SENOKOT S TAB PO SCH (21:23)
[2020-09-06] MEDS: IPRATROPIUM 0.5MG/ALBUTEROL 2.5MG INH SOL UD 3ML (DUONEB) NEB SCH ×5 (03:20→20:51)
[2020-09-06 06:00] VITALS: BP 171/78
[2020-09-06] MEDS: HEPARIN SOD (PORCINE) 5000UNITS/ML 1ML VIAL/SYRINGE SQ SCH ×3 (06:07→22:22)
[2020-09-06] MEDS: guaiFENesin SYRUP 200 MG/10 ML UDC PO SCH ×4 (06:07→18:36)
--- NOTE | 2020-09-06 07:33 | IPN ---
DATE: 09/05/2020 SUBJECTIVE: Patient was seen and examined at the bedside today morning during hemodialysis procedure. He is tolerating the hemodialysis procedure well. He denies any active complaints at this time. OBJECTIVE: VITAL SIGNS: Temperature is 98.7 degrees Fahrenheit, blood pressure 154/72, pulse 83, respiratory rate of 18. Saturating 95% on nasal cannula at 5 liters. INTAKE/OUTPUT: There is no urine output recorded. Weight in the bed scale is not available. GENERAL: Patient is awake, alert, and oriented x3. Morbidly obese. Lying in bed getting hemodialysis done. HEAD AND NECK: Pupils are equally round and reactive to light. Mucous membranes are moist. He has a tracheostomy with a trach collar. CARDIOVASCULAR: S1, S2. Regular rate. No edema of the bilateral lower extremities. RESPIRATORY: Chest is clear to auscultation bilaterally anteriorly. ABDOMEN: Soft and obese. MUSCULOSKELETAL: No clubbing or cyanosis. 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 Otherwise, he is awake and able to communicate, but he cannot talk because of tracheostomy. LABORATORY REVIEW: CBC from 09/03 with hemoglobin of 10.8 and BMP was normal with a potassium of 4.8. CURRENT INPATIENT MEDICATIONS: The patient medications were all reviewed by myself. There is no significant change in the medications today as compared with last time. ASSESSMENT AND PLAN: 1. End-stage renal disease. The patient is tolerating the hemodialysis procedure well. Ultrafiltration goal is about 3 to 3.5 kg as tolerated by his blood pressure. 2. Hypertension. Blood pressure is controlled with the current regimen of amlodipine 10 mg p.o. daily. 3. Chronic kidney disease, mineral and bone disease. The patients phosphorus levels were high. He is not very compliant and refusing the binders. Continue the current dose of Renvela and Velphoro. 4. Anemia and end-stage renal disease. Continue current dose of Aranesp. MTDD
[2020-09-06] MEDS: LIDOCAINE 5% (LIDODERM) PATCH TD SCH (09:00)
[2020-09-06] MEDS: AMIODARONE 200 MG TAB (PACERONE) PO SCH (09:13)
[2020-09-06] MEDS: levETIRAcetam 250MG TABLET (KEPPRA) PO SCH (09:13)
[2020-09-06] MEDS: SERTRALINE 100 MG TAB PO SCH (09:13)
[2020-09-06] MEDS: PANTOPRAZOLE 40MG TAB (PROTONIX) PO SCH (09:13)
[2020-09-06] MEDS: (RENVELA) SEVELAMER **CARBONate** 800 MG TAB PO SCH ×3 (09:14→18:36)
[2020-09-06] MEDS: VANICREAM MOISTURIZING SKIN CREAM 113GM TUBE TOP SCH (09:14)
[2020-09-06] MEDS: SUCROFERRIC OXYHYDROXIDE 500MG CHEW TAB (VELPHORO) PO SCH ×3 (09:14→18:36)
--- NOTE | 2020-09-06 14:17 | REP ---
INDICATION: tracheal stenosis. COMPARISON: Comparison soft tissue neck CT study May 23, 2020.. TECHNIQUE: Helical scanning is acquired and 3 mm axial images re-formatted. Coronal and sagittal MPR images are included. FINDINGS: Digital government contracts manager views demonstrate tracheostomy tube in position. The maxilla is edentulous. On axial CT images tracheostomy tube enters the trachea just above the thyroid isthmus and is seen coursing off the imaging field of view for the soft tissue neck portion of the study. There is no evidence of mass or adenopathy. Thyroid lobes are normal and symmetric. There is some vascular calcification in the carotids bilaterally. Parotid glands are unremarkable. Submandibular glands are symmetric. No bony destructive lesion is seen. IMPRESSION: Tracheostomy tube in place. No mass or adenopathy seen. <Electronically signed by Cornell Vo > 09/06/20 [id number]
--- NOTE | 2020-09-06 14:19 | REP ---
INDICATION: tracheal stenosis. COMPARISON: 05/24/2020 TECHNIQUE: Noncontrast images through the chest with coronal and sagittal reconstructions provided FINDINGS: Tracheostomy tube is again seen the field of view for the chest artery it the thoracic inlet. Trachea is narrowed and tightly abuts the course of the tracheostomy tube until the point about 6 cm above the compa. The tube tip is 4 cm above the compa. The lung kline show patchy infiltrates in the posterior segment of the right upper lobe abutting the major fissure and pleura, new since the previous study there are lower lobe patchy atelectasis and infiltrates and these are generally improved compared to the previous study in April. There is compressive the and dependent atelectatic changes in lower lung zones and basal segments particularly the medial basal segment on the left. No no left effusion. Trace right effusion suspected. Heart is enlarged with left atrial and ventricular enlargement and calcifications in the mitral annulus. Some coronary artery calcifications are also seen. Study again shows extensive calcification in the superior vena cava and some in the left brachiocephalic vein to a lesser extent. This is unchanged. I do not see pathologic sized mediastinal or hilar adenopathy no axillary nodes are seen. Bone windows show marginal osteophytes without compression deformity or destructive lesions at multiple of thoracic levels bones are generally sclerotic. The sternum and manubrium are sclerotic. This chronic appearance unchanged. No focal rib lesions. That portion of scapulae seen shows no acute finding. Shoulders are largely excluded from the field of view. Upper abdomen there is some hepatosplenomegaly without focal lesion the left lobe of the liver is enlarged as well. Gallbladder contracted. No calcifications seen pancreas visible was unremarkable the adrenal glands grossly intact the bilateral kidneys show atrophy multiple cortical calcifications and low-density foci some suggesting multiple small cysts. No hiatal hernia IMPRESSION: 1. Tracheostomy tube about 4 cm from the compa and evidence for tracheal stenosis with tracheal walters tightly applied to the proximal thoracic and lower cervical portion of the tracheostomy tube. Tracheal diameter is normal the last 2 cm of tube and the 4 cm to the compa. 2. Improvement in the right lower lobe infiltrates and new right upper lobe infiltrates since the previous study. 3. Cardiomegaly with left atrial and ventricular enlargement, mitral annular calcifications and coronary calcifications no pericardial thickening or effusion. No pathologic adenopathy. Next hepatosplenomegaly in the upper abdomen. No hiatal hernia. Advanced chronic renal disease with atrophy, diffuse cystic change in calcifications in the kidney cortex. 4. Diffuse sclerotic vertebral bodies and the sternum and manubrium, unchanged. Correlate clinically <Electronically signed by Vincent Stacy > 09/06/20 [id number]
[2020-09-06] MEDS: PRAMIPEXOLE (MIRAPEX) 0.125 MG TAB PO SCH (22:21)
[2020-09-06] MEDS: SENOKOT S TAB PO SCH (22:21)
[2020-09-06] MEDS: ALPRAZolam 0.25 MG TAB PO PRN (22:21)
[2020-09-06] MEDS: oxyCODONE 5MG TAB PO PRN (22:22)
[2020-09-07] MEDS: IPRATROPIUM 0.5MG/ALBUTEROL 2.5MG INH SOL UD 3ML (DUONEB) NEB SCH ×7 (00:14→23:48)
[2020-09-07 06:00] VITALS: BP 131/61
[2020-09-07] MEDS: LIDOCAINE 5% (LIDODERM) PATCH TD SCH (06:23)
[2020-09-07] MEDS: levETIRAcetam 250MG TABLET (KEPPRA) PO SCH (06:29)
[2020-09-07] MEDS: HEPARIN SOD (PORCINE) 5000UNITS/ML 1ML VIAL/SYRINGE SQ SCH ×3 (06:29→22:18)
[2020-09-07] MEDS: PANTOPRAZOLE 40MG TAB (PROTONIX) PO SCH (06:29)
[2020-09-07] MEDS: AMIODARONE 200 MG TAB (PACERONE) PO SCH (06:30)
[2020-09-07] MEDS: SERTRALINE 100 MG TAB PO SCH (06:30)
[2020-09-07] MEDS: guaiFENesin SYRUP 200 MG/10 ML UDC PO SCH ×4 (06:31→18:07)
[2020-09-07] MEDS ORDERED: LIDOCAINE 1% SDV 30ML VIAL SC PRN ×2 (07:30)
[2020-09-07] MEDS ORDERED: SODIUM CHLORIDE 0.9% 1000ML IV PRN (07:30)
[2020-09-07] MEDS: (RENVELA) SEVELAMER **CARBONate** 800 MG TAB PO SCH ×3 (08:00→18:07)
[2020-09-07] MEDS: SUCROFERRIC OXYHYDROXIDE 500MG CHEW TAB (VELPHORO) PO SCH ×3 (08:00→18:00)
[2020-09-07 08:51] LABS: BASO % 0.5 % (0.0-1.0); EOS # 0.4 10^3/uL (0.0-0.5); EOS % 5.9 % (0.0-3.0); HEMATOCRIT 36.2 % (42.0-52.0); HEMOGLOBIN 10.7 g/dl (13.5-17.5); LYMPH # 1.5 10^3/uL (1.5-5.0); LYMPH % 23.6 % (24.0-44.0); MEAN CORPUSCULAR HEMOGLOBIN 30.6 pg (27.0-33.0); MEAN CORPUSCULAR HGB CONC 29.6 g/dl (32.0-36.5); MEAN CORPUSCULAR VOLUME 103.4 fl (80.0-96.0); MONO # 0.3 10^3/uL (0.0-0.8); NEUTROPHILS % 64.7 % (36.0-66.0); PLATELET COUNT, AUTOMATED 160 10^3/uL (150-450); WHITE BLOOD COUNT 6.2 10^3/uL (4.0-10.0)
[2020-09-07 09:13] LABS: ALBUMIN 2.3 GM/DL (3.2-5.2); CALCIUM LEVEL 9.1 MG/DL (8.5-10.1); CREATININE FOR GFR 5.29 MG/DL (0.70-1.30); GLOMERULAR FILTRATION RATE 12.4 (>60); PHOSPHORUS LEVEL 5.7 MG/DL (2.5-4.9); POTASSIUM SERUM 4.1 MEQ/L (3.5-5.1)
[2020-09-07] MEDS: VANICREAM MOISTURIZING SKIN CREAM 113GM TUBE TOP SCH (09:33)
[2020-09-07] MEDS: oxyCODONE 5MG TAB PO PRN (22:18)
[2020-09-07] MEDS: ALPRAZolam 0.25 MG TAB PO PRN (22:18)
[2020-09-07] MEDS: PRAMIPEXOLE (MIRAPEX) 0.125 MG TAB PO SCH (22:18)
[2020-09-07] MEDS: SENOKOT S TAB PO SCH (22:19)
[2020-09-08] MEDS: IPRATROPIUM 0.5MG/ALBUTEROL 2.5MG INH SOL UD 3ML (DUONEB) NEB SCH ×6 (03:40→23:28)
[2020-09-08 06:00] VITALS: BP 143/61
[2020-09-08] MEDS: guaiFENesin SYRUP 200 MG/10 ML UDC PO SCH ×4 (06:00→17:19)
[2020-09-08] MEDS: HEPARIN SOD (PORCINE) 5000UNITS/ML 1ML VIAL/SYRINGE SQ SCH ×3 (06:00→22:10)
[2020-09-08] MEDS: (RENVELA) SEVELAMER **CARBONate** 800 MG TAB PO SCH ×3 (08:00→17:20)
[2020-09-08] MEDS: SUCROFERRIC OXYHYDROXIDE 500MG CHEW TAB (VELPHORO) PO SCH ×3 (08:00→17:19)
[2020-09-08] MEDS: LIDOCAINE 5% (LIDODERM) PATCH TD SCH (09:00)
[2020-09-08] MEDS: levETIRAcetam 250MG TABLET (KEPPRA) PO SCH (09:30)
[2020-09-08] MEDS: PANTOPRAZOLE 40MG TAB (PROTONIX) PO SCH (09:30)
[2020-09-08] MEDS: oxyCODONE 5MG TAB PO PRN ×2 (09:31→22:11)
[2020-09-08] MEDS: AMIODARONE 200 MG TAB (PACERONE) PO SCH (09:31)
[2020-09-08] MEDS: SERTRALINE 100 MG TAB PO SCH (09:31)
[2020-09-08] MEDS: VANICREAM MOISTURIZING SKIN CREAM 113GM TUBE TOP SCH (09:44)
--- NOTE | 2020-09-08 16:55 | IPN ---
DATE: 09/07/2020 SUBJECTIVE: The patient was seen and examined at the bedside today morning. During hemodialysis procedure, he tolerated hemodialysis procedure well. He denies any active complaints at this time. OBJECTIVE: Vital signs: Temperature is 97.8 degrees Fahrenheit, temperature 131/61, pulse is 71, respiratory rate of 19, saturating 97% on trach collar. Intake and output: There is no urine output recorded. Weight in the bed scale is not available. PHYSICAL EXAMINATION: General: The patient is awake, alert and oriented times 3, morbidly obese, getting hemodialysis done. Head and neck examination: Pupils equally round and reactive to light. Neck is supple. He has a trach collar. Cardiovascular: S1, S2 regular rate. No edema of the bilateral lower extremities. Respiratory: Clear to auscultation anteriorly, bilaterally. Abdomen is soft, obese, positive bowel sounds. Genitourinary: The bladder is not palpable. Musculoskeletal: He is wearing waffle boots on bilateral lower extremities. 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 He moves extremities. He is chronically bedridden, has decreased range of movement of the lower extremities. LABORATORY REVIEW: Complete blood count (CBC) showed a WBC of 6.2, hemoglobin 10.7, platelets of 160. Basic metabolic panel (BMP) shows sodium 137, potassium 4.1, chloride 102, bicarbonate 27, BUN 28, creatinine is 5.2. Phosphorus 5.7, albumin is 2.3. CURRENT INPATIENT MEDICATIONS: The patient's medications were all reviewed by myself. There is no significant change in the medications today. ASSESSMENT/PLAN: 1. End-stage renal disease. The patient is being dialyzed according to his regular schedule. Ultrafiltration goal will be around 3 liters as tolerated by his blood pressure. 2. Anemia and end-stage renal disease. Hemoglobin level is stable with current dose of Aranesp. 3. Hypertension. Blood pressure is controlled with amlodipine 10 mg by mouth daily. 4. Chronic kidney disease, mineral bone disease. Continue current dose of Renvela and Velphoro. Phosphorous level is improving with better compliance with the binders now. MTDD
[2020-09-08] MEDS: IPRATROPIUM 0.5MG/ALBUTEROL 2.5MG INH SOL UD 3ML (DUONEB) NEB PRN (17:42)
--- NOTE | 2020-09-08 20:22 | IPNPDOC ---
Date Seen The patient was seen on 09/08/20. Progress Note SUBJECTIVE: rapid assessment call, for hypoxia, difficulty breathing. On arrival RT at bedside, performing trach suctioning with catheter. Patient desating down to 70s. Bagging via trach. SpO2 improving with suctioning. Pulse ox improved to 99% on RA. CXR performed, reviewed bedside, no obvious consolidation/effusion seen. Suspect mucous plug, removed via suctioning. Patient is comfortable on RA after suctioning. SpO2 99%. OBJECTIVE PHYSICAL EXAMINATION: VITAL SIGNS: Please see below. GENERAL: comfortable at rest. HEENT: PERRLA, EOMI CARDIOVASCULAR: sinus tach 104, Normal S1, S2. RESPIRATORY: lungs CTAB, no wheeze, no rales after suctioining. ABDOMINAL: soft, non tender EXTREMITIES: chronic zhen stasis dermatitis, heel float boots NEUROLOGICAL: AAO x 3, no focal neuro deficit PSYCHOLOGICAL: calm, cooperative Plan - continue to monitor SpO2 - frequent suctioning - humidified O2 - robitussin VS, I&O, 24H, Fishbone Vital Signs/I&O Vital Signs Date Time Temp Pulse Resp B/P (MAP) Pulse Ox O2 Delivery O2 Flow Rate FiO2 09/08/20 10:01 16 09/08/20 09:31 79 143/61 09/08/20 09:00 5.0 28 09/08/20 06:00 97.3 98 Room Air I&O- Last 24 Hours up to 6 AM 09/08/20 06:00 Intake Total 1620 ml Output Total 3000 ml Balance -1380 ml KENYON ALCALA MD Sep 08, 2020 20:22
--- NOTE | 2020-09-08 20:23 | REPVR ---
PROCEDURE INFORMATION: Exam: XR Chest, 1 View Exam date and time: 09/08/2020 8:10 PM Age: 50 years old Clinical indication: Shortness of breath; Additional info: SOB TECHNIQUE: Imaging protocol: XR of the chest Views: 1 view. COMPARISON: CT Chest without contrast 09/06/2020 11:53 AM FINDINGS: Tubes, catheters and devices: Endotracheal tube lies 4 cm above the compa Lungs: Pulmonary vascular/interstitial pattern is mildly prominent. Patchy infiltrates in the lungs, similar to the CT from 2 days ago. Pleural space: Probable associated layering pleural effusions. No evidence of pneumothorax. Heart/Mediastinum: Cardiac silhouette is enlarged. Bones/joints: Osseous structures are unremarkable. Soft tissues: Extra thoracic soft tissues show no asymmetry. IMPRESSION: Patchy bilateral lung infiltrates with similar appearance compared to the prior CT. Underlying mild pulmonary vascular engorgement suspected Electronically signed by: Lloyd Goss On 09/08/2020 20:22:39 PM
[2020-09-08 20:32] VITALS: BP_SYST 180
[2020-09-08] MEDS: PRAMIPEXOLE (MIRAPEX) 0.125 MG TAB PO SCH (22:10)
[2020-09-08] MEDS: SENOKOT S TAB PO SCH (22:10)
[2020-09-08] MEDS: ALPRAZolam 0.25 MG TAB PO PRN (22:10)
[2020-09-08 23:28] VITALS: O2SAT 95
[2020-09-09] MEDS: guaiFENesin SYRUP 200 MG/10 ML UDC PO SCH ×4 (00:46→18:18)
[2020-09-09 01:27] VITALS: BP 199/123
[2020-09-09 03:55] VITALS: O2SAT 96
[2020-09-09] MEDS: IPRATROPIUM 0.5MG/ALBUTEROL 2.5MG INH SOL UD 3ML (DUONEB) NEB SCH ×6 (03:55→23:31)
[2020-09-09 06:00] VITALS: BP 163/75
[2020-09-09] MEDS: HEPARIN SOD (PORCINE) 5000UNITS/ML 1ML VIAL/SYRINGE SQ SCH ×3 (06:14→21:08)
[2020-09-09] MEDS: (RENVELA) SEVELAMER **CARBONate** 800 MG TAB PO SCH ×3 (08:00→18:18)
[2020-09-09] MEDS: SUCROFERRIC OXYHYDROXIDE 500MG CHEW TAB (VELPHORO) PO SCH ×3 (08:00→18:18)
[2020-09-09 08:05] VITALS: O2SAT 99
[2020-09-09] MEDS: oxyCODONE 5MG TAB PO PRN ×2 (08:41→21:09)
[2020-09-09] MEDS: levETIRAcetam 250MG TABLET (KEPPRA) PO SCH (08:41)
[2020-09-09] MEDS: ALPRAZolam 0.25 MG TAB PO PRN ×2 (08:41→21:08)
[2020-09-09] MEDS: AMIODARONE 200 MG TAB (PACERONE) PO SCH (08:42)
[2020-09-09] MEDS: LIDOCAINE 5% (LIDODERM) PATCH TD SCH (08:42)
[2020-09-09] MEDS: SERTRALINE 100 MG TAB PO SCH (08:42)
[2020-09-09] MEDS: PANTOPRAZOLE 40MG TAB (PROTONIX) PO SCH (08:42)
[2020-09-09] MEDS: VANICREAM MOISTURIZING SKIN CREAM 113GM TUBE TOP SCH (09:00)
[2020-09-09] MEDS ORDERED: **NOTE PATIENT COMMENT** MISC XX PRN (12:00)
[2020-09-09] MEDS ORDERED: LIDOCAINE 5% (LIDODERM) PATCH TD PRN (12:00)
[2020-09-09] MEDS: SENOKOT S TAB PO SCH (21:08)
[2020-09-09] MEDS: PRAMIPEXOLE (MIRAPEX) 0.125 MG TAB PO SCH (21:08)
[2020-09-10] MEDS: guaiFENesin SYRUP 200 MG/10 ML UDC PO SCH ×5 (00:10→23:57)
[2020-09-10] MEDS: IPRATROPIUM 0.5MG/ALBUTEROL 2.5MG INH SOL UD 3ML (DUONEB) NEB SCH ×6 (03:48→23:10)
[2020-09-10 06:00] VITALS: BP 133/57
[2020-09-10] MEDS: HEPARIN SOD (PORCINE) 5000UNITS/ML 1ML VIAL/SYRINGE SQ SCH ×3 (07:01→22:23)
[2020-09-10] MEDS: (RENVELA) SEVELAMER **CARBONate** 800 MG TAB PO SCH ×3 (07:03→18:18)
[2020-09-10] MEDS: SUCROFERRIC OXYHYDROXIDE 500MG CHEW TAB (VELPHORO) PO SCH ×3 (07:03→18:17)
[2020-09-10] MEDS: levETIRAcetam 250MG TABLET (KEPPRA) PO SCH (07:03)
[2020-09-10] MEDS: SERTRALINE 100 MG TAB PO SCH (07:04)
[2020-09-10] MEDS: PANTOPRAZOLE 40MG TAB (PROTONIX) PO SCH (07:04)
[2020-09-10] MEDS: AMIODARONE 200 MG TAB (PACERONE) PO SCH (07:04)
[2020-09-10] MEDS: IPRATROPIUM 0.5MG/ALBUTEROL 2.5MG INH SOL UD 3ML (DUONEB) NEB PRN (13:48)
[2020-09-10] MEDS: SENOKOT S TAB PO SCH (22:22)
[2020-09-10] MEDS: ALPRAZolam 0.25 MG TAB PO PRN (22:23)
[2020-09-10] MEDS: PRAMIPEXOLE (MIRAPEX) 0.125 MG TAB PO SCH (22:24)
[2020-09-10] MEDS: oxyCODONE 5MG TAB PO PRN (22:24)
[2020-09-11] MEDS: IPRATROPIUM 0.5MG/ALBUTEROL 2.5MG INH SOL UD 3ML (DUONEB) NEB SCH ×6 (02:55→23:08)
[2020-09-11 06:00] VITALS: BP 143/76
[2020-09-11] MEDS: guaiFENesin SYRUP 200 MG/10 ML UDC PO SCH ×3 (06:00→18:07)
[2020-09-11] MEDS: HEPARIN SOD (PORCINE) 5000UNITS/ML 1ML VIAL/SYRINGE SQ SCH ×3 (06:09→21:23)
--- NOTE | 2020-09-11 09:46 | IPN ---
DATE: 09/10/2020 SUBJECTIVE: Patient seen and examined this morning in the Hemodialysis Unit receiving his maintenance treatment. Denies any overnight events or complaints, is having 3500 mL removed today. PHYSICAL EXAMINATION: Temperature 98, pulse 75, respiratory rate 18, blood pressure 133/57, saturating 93-94% on trach collar. Intake yesterday was 1950. Weight on the bed scale today is not recorded. General: Patient is seen in the unit receiving his maintenance treatment. He is waiting for suctioning. He is awake, alert and using his iPad. HEENT: Makes eye contact, trach collar in place. Neck: Jugular veins difficult to assess. Heart: Sounds are regular S1 and S2. There is no leg edema. Lungs: Anterior auscultation only, symmetric air entry, no wheeze. Abdomen: Soft, obese and nontender. Extremities: There is chronic stasis dermatitis changes. His feet are in Float boots. His right upper extremity fistula is patent and in use. Skin: Warm and dry. Neurologic: He mouths to speak and he is at baseline mentation and interactive and cooperative. Psychiatric: Calm, normal moderate. LABORATORY DATA: White count 6.2, hemoglobin 10.7, platelets 160. Sodium 137, potassium 4.1. INPATIENT MEDICATIONS: Reviewed by myself and no change from prior. PROBLEMS/PLAN: 1. End-stage renal disease: On hemodialysis on Wednesday, , Wednesday schedule; 3.5 liters are being removed today. He is tolerating his treatment without issues. His electrolytes are checked intermittently. His volume status is compensated. His fistula is in good use. No changes being made to the current prescription. 2. Anemia of end-stage renal failure: Hemoglobin is 10.7 and is intermittently checked and no changes being made to the current dose of Aranesp. 3. Hypertension: Blood pressures are well controlled and he continues on amlodipine. 4. Secondary hyperparathyroidism of renal origin: His most recent phosphorus level was 5.7 and he has not had a parathyroid hormone checked in a few weeks so I will repeat that. He continues on Velphoro and Renvela. MTDD
[2020-09-11] MEDS: SUCROFERRIC OXYHYDROXIDE 500MG CHEW TAB (VELPHORO) PO SCH ×3 (09:55→18:07)
[2020-09-11] MEDS: (RENVELA) SEVELAMER **CARBONate** 800 MG TAB PO SCH ×3 (09:55→18:07)
[2020-09-11] MEDS: levETIRAcetam 250MG TABLET (KEPPRA) PO SCH (09:57)
[2020-09-11] MEDS: AMIODARONE 200 MG TAB (PACERONE) PO SCH (09:58)
[2020-09-11] MEDS: PANTOPRAZOLE 40MG TAB (PROTONIX) PO SCH (09:58)
[2020-09-11] MEDS: SERTRALINE 100 MG TAB PO SCH (09:58)
[2020-09-11] MEDS: IPRATROPIUM 0.5MG/ALBUTEROL 2.5MG INH SOL UD 3ML (DUONEB) NEB PRN ×2 (11:07→12:41)
[2020-09-11] MEDS ORDERED: ETOMIDATE INJ 20MG/10ML VIAL As Ordered ONE (12:44)
[2020-09-11] MEDS ORDERED: propofoL 200 MG/20 ML VIAL As Ordered ONE (12:44)
[2020-09-11] MEDS ORDERED: MIDAZOLAM INJ 2MG/2ML VIAL (J2250 PER 1MG) As Ordered ONE (13:00)
[2020-09-11] MEDS ORDERED: CETACAINE SPRAY 5GM As Ordered ONE (13:04)
[2020-09-11] MEDS ORDERED: LIDOCAINE W/EPINEPHRINE 1% 20ML VIAL As Ordered ONE (13:26)
--- NOTE | 2020-09-11 14:57 | REP ---
INDICATION: trach placement. COMPARISON: 09/08/2020 FINDINGS: The technique utilized in obtaining the radiograph has magnified the cardiac silhouette and accentuated the interstitial markings. The heart is magnified by technique status quo. The tracheostomy tube is unchanged in position. There is no change in the lung kline. There is no change in the osseous structures. IMPRESSION: No significant change <Electronically signed by Aayush Colbert > 09/11/20 [id number]
[2020-09-11 15:20] VITALS: BP 163/70
--- NOTE | 2020-09-11 16:49 | IPNPDOC ---
Date Seen The patient was seen on 09/11/20. Progress Note SUBJECTIVE: Patient was seen at bedside. He is due to go for trach replacement/exchange today for tracheal stenosis. NPO overnight. Switching from ALC to inpatient today. He has no acute complaints. OBJECTIVE: PHYSICAL EXAMINATION: VITAL SIGNS: Please see below. GENERAL: comfortable, resting in bed, NAD HEENT: PERRLA, EOMI CARDIOVASCULAR: Normal S1, S2. 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 PLAN: #Chronic respiratory failure status post tracheostomy, tracheal stenosis Seen by Dr. Ortega, Trach replacement/exchange today C/w resp treatments, trach care #ESRD on hemodialysis C/w Wednesday, , Wednesday HDschedule #Hypotension. C/w midodrine on dialysis days. #Anemia. Stable, monitor and transfuse if indicated. hemoglobin level is optimal with current dose of Aranesp 100 mcg once a week with dialysis #Chronically bedridden. Awaiting placement to [facility]. #Chronic kidney disease, mineral bone disease Renvela and Velphoro dose #DVT px -Teds, scds. Will find out why he is not on AC DISPOSITION: Switched to inpatient care from ALC status today. Pending placement to facility for long-term care. VS, I&O, 24H, Fishbone Vital Signs/I&O Vital Signs Date Time Temp Pulse Resp B/P (MAP) Pulse Ox O2 Delivery O2 Flow Rate FiO2 09/11/20 14:55 97.5 16 135/62 (86) 97 Trach Collar 28 09/11/20 14:40 73 09/11/20 10:00 28 I&O- Last 24 Hours up to 6 AM 09/11/20 06:00 Intake Total 1740 ml Output Total 3500 ml Balance -1760 ml Laboratory Data 24H LABS Laboratory Tests 2 09/11/20 09:15: Parathyroid Hormone (Intact) 391.9H 09/11/20 11:23: Coronavirus (COVID-19)(PCR) NEGATIVE Current Medications Current Medications Medications (Trade) Dose Ordered Sig/Alicia Route PRN Reason Start Time Stop Time Status Last Admin Dose Admin Acetaminophen (Tylenol Tab) 650 mg Q6HP PRN PO PAIN / FEVER 06/13/20 04:45 06/16/20 21:00 Albuterol/ Ipratropium (Duoneb (Ipr 0.5mg/Alb 2.5mg)) 3 ml Q2H PRN NEB SHORTNESS OF BREATH 06/11/20 19:45 09/11/20 12:41 Albuterol/ Ipratropium (Duoneb (Ipr 0.5mg/Alb 2.5mg)) 3 ml Q6H PRN NEB SOB/WHEEZING 06/11/20 19:45 06/11/20 19:45 DC Albuterol/ Ipratropium (Duoneb (Ipr 0.5mg/Alb 2.5mg)) 3 ml RQ4H NEB 07/25/20 16:00 09/11/20 15:35 Albuterol/ Ipratropium (Duoneb (Ipr 0.5mg/Alb 2.5mg)) 3 ml RQ6H NEB 06/11/20 20:00 07/25/20 15:32 DC 07/25/20 13:55 Alprazolam (Xanax) 0.25 mg Q6H PRN PO ANXIETY 06/11/20 19:45 09/10/20 22:23 Amiodarone HCl (Pacerone, Cordarone) 200 mg DAILY PO 06/12/20 09:00 09/11/20 09:58 Amlodipine Besylate (Norvasc) 10 mg DAILY PO 08/29/20 09:00 09/11/20 09:58 Benzonatate (Tessalon Perles) 100 mg Q8HP PRN PO COUGH 06/13/20 01:15 06/13/20 12:18 Bisacodyl (Dulcolax Suppository) 10 mg DAILYPRN PRN [place] CONSTIPATION 06/11/20 19:45 06/15/20 16:46 DC Bisacodyl (Dulcolax Tab) 5 mg DAILY PO 06/16/20 09:00 08/04/20 17:40 DC 08/04/20 10:46 Carbamide Peroxide (Debrox) 3 drop BID 06/12/20 21:00 06/16/20 09:01 DC 06/13/20 12:17 Darbepoetin Jairo (Aranesp (Dialysis Use)) 100 mcg HD IV 08/06/20 11:45 09/03/20 07:41 DC Darbepoetin Jairo (Aranesp (Dialysis Use)) 100 mcg HD IV 09/03/20 07:30 09/10/20 09:01 Emollient Cream (Vanicream) to bilateral lo... DAILY TOP 08/05/20 09:00 09/09/20 11:17 DC 09/08/20 09:44 Emollient Cream (Vanicream) to bilateral lo... DAILY PRN TOP DRY SKIN 09/09/20 11:15 Guaifenesin (Robitussin) 5 ml Q6H PO 07/28/20 12:00 09/10/20 23:57 Heparin Sodium (Heparin (Flush)) 200 units ASDIRECTED PRN IV SEE LABEL COMMENTS 06/11/20 19:45 06/11/20 19:49 DC Heparin Sodium (Heparin (Flush)) 200 units ASDIRECTED PRN IV SEE LABEL COMMENTS 06/11/20 19:45 06/20/20 18:55 DC 06/20/20 06:42 Heparin Sodium (Heparin (Flush)) 200 units PICC IV 06/12/20 06:00 06/11/20 19:48 DC Heparin Sodium (Heparin (Flush)) 200 units PICC IV 06/12/20 06:00 06/20/20 18:55 DC 06/20/20 06:41 Heparin Sodium (Heparin) dose as per volume indica... ASDIRECTED PRN IV SEE LABEL COMMENTS 09/04/20 11:30 09/05/20 08:25 DC Heparin Sodium (Heparin) dose as per volume indica... ASDIRECTED PRN IV SEE LABEL COMMENTS 09/04/20 11:30 09/05/20 08:25 DC Heparin Sodium (Porcine) (Heparin) 5,000 units Q8H SQ 06/11/20 22:00 06/13/20 15:19 DC 06/13/20 12:17 Heparin Sodium (Porcine) (Heparin) 5,000 units Q8H SQ 07/25/20 22:00 09/11/20 06:09 Home Med (Med Rec Complete!) ASDIRECTED XX 06/12/20 10:15 06/12/20 10:08 DC Hydralazine HCl (Apresoline) 10 mg Q6H PRN PO SBP>170 06/11/20 19:45 08/06/20 11:39 DC 06/19/20 22:01 Iron (Venofer) 100 mg HD IV 07/11/20 11:30 08/27/20 13:16 DC Levetiracetam (Keppra) 500 mg DAILY PO 06/12/20 09:00 09/11/20 09:57 Lidocaine (Lidoderm Patch) 1 patch DAILY TD 06/12/20 09:00 09/09/20 11:57 DC 07/13/20 06:43 Lidocaine (Lidoderm Patch) 1 patch DAILY PRN TD BACK PAIN 09/09/20 12:00 09/09/20 14:17 DC Lidocaine HCl (Lidocaine 1% Sdv) 0.5 ml ASDIRECTED PRN SC SEE LABEL COMMENTS 09/04/20 11:30 09/05/20 08:26 DC Lidocaine HCl (Lidocaine 1% Sdv) 0.5 ml ASDIRECTED PRN SC SEE LABEL COMMENTS 09/04/20 11:30 09/05/20 08:26 DC Lidocaine HCl (Lidocaine 1% Sdv) 0.5 ml ASDIRECTED PRN SC SEE LABEL COMMENTS 09/07/20 07:30 09/08/20 07:29 DC Lidocaine HCl (Lidocaine 1% Sdv) 0.5 ml ASDIRECTED PRN SC SEE LABEL COMMENTS 09/07/20 07:30 09/08/20 07:29 DC Midodrine (Proamatine) 10 mg ASDIRECTED PO 06/11/20 20:30 08/31/20 21:12 DC 08/10/20 06:14 Midodrine (Proamatine) 10 mg HD PO 06/11/20 21:00 06/11/20 20:22 DC Miscellaneous (Unresolved Clarification Entry) SEE LABEL COMMENTS DAILY XX 06/24/20 09:00 06/25/20 12:54 DC Non-Formulary Medication ( See Comment Field Below ) CHECK TO SEE IF THE PATIENT... DAILY@0800 XX 06/27/20 08:00 09/01/20 18:17 DC 08/10/20 06:36 Non-Formulary Medication ( See Comment Field Below ) REMOVE LIDODERM PATCH DAILY@21 XX 06/11/20 21:00 09/09/20 11:57 DC 09/04/20 21:00 Non-Formulary Medication ( See Comment Field Below ) REMOVE LIDODERM PATCH DAILY@21 PRN XX BACK PAIN 09/09/20 12:00 09/09/20 14:17 DC Nystatin (Mycostatin Powder, Nystop) Apply to groin folds BIDP PRN TOP REDNESS/IRRITATION 08/27/20 01:00 Ondansetron HCl (Zofran) 4 mg Q6HP PRN PO NAUSEA OR VOMITING 07/08/20 12:45 08/22/20 20:36 Oxycodone HCl (Roxicodone, Oxyir) 10 mg Q4H PRN PO PAIN 06/11/20 19:45 09/10/20 22:24 Pantoprazole Sodium (Protonix) 40 mg DAILY PO 06/12/20 09:00 09/11/20 09:58 Polyethylene Glycol (Miralax) 1 pkt DAILY PRN PO CONSTIPATION 06/11/20 19:45 06/15/20 16:45 DC Polyethylene Glycol (Miralax) 1 pkt DAILYPRN PRN PO CONSTIPATION 08/04/20 17:45 Polymyxin/ Trimethoprim Sulfate (Polytrim Ophth Drops) 1 drop 6XD OU 08/03/20 15:00 08/10/20 12:00 DC 08/10/20 06:13 Pramipexole Dihydrochloride (Mirapex) 0.125 mg QHS PO 06/11/20 21:00 09/10/20 22:24 Senna/Docusate Sodium (Senokot S) 2 tab QHS PO 08/04/20 21:00 09/10/20 22:22 Sertraline HCl (Zoloft) 100 mg DAILY PO 06/12/20 09:00 09/11/20 09:58 Sevelamer Carbonate (Renvela) 2,400 mg WM PO 06/12/20 08:00 09/10/20 18:18 Sodium Chloride (Nacl 0.9%) 200 ml ASDIRECTED PRN IV SEE LABEL COMMENTS 09/03/20 07:30 09/05/20 08:26 DC Sodium Chloride (Nacl 0.9%) 200 ml ASDIRECTED PRN IV SEE LABEL COMMENTS 09/04/20 11:30 09/10/20 10:39 DC Sodium Chloride (Nacl 0.9%) 200 ml ASDIRECTED PRN IV SEE LABEL COMMENTS 09/07/20 07:30 09/10/20 10:39 DC Sodium Chloride (Saline Lock Flush) 10 ml ASDIRECTED PRN IV SEE LABEL COMMENTS 06/11/20 19:45 06/11/20 19:50 DC Sodium Chloride (Saline Lock Flush) 10 ml ASDIRECTED PRN IV SEE LABEL COMMENTS 06/11/20 19:45 06/20/20 18:55 DC 06/20/20 06:41 Sodium Chloride (Saline Lock Flush) 10 ml PICC IV 06/12/20 06:00 06/11/20 19:49 DC Sodium Chloride (Saline Lock Flush) 10 ml PICC IV 06/12/20 06:00 06/20/20 18:55 DC 06/20/20 06:41 Sucroferric Oxyhydroxide (Velphoro) 500 mg WM PO 07/11/20 12:30 09/10/20 18:17 Allergies Coded Allergies: moxifloxacin (Verified Allergy, Intermediate, RASH, 12/25/19) codeine (Verified Allergy, Unknown, 12/25/19) valsartan (Verified Allergy, Unknown, 12/25/19) Claudette Padron MD Sep 11, 2020 16:49
[2020-09-11] MEDS: PRAMIPEXOLE (MIRAPEX) 0.125 MG TAB PO SCH (21:22)
[2020-09-11] MEDS: SENOKOT S TAB PO SCH (21:22)
[2020-09-11] MEDS: ALPRAZolam 0.25 MG TAB PO PRN (21:23)
[2020-09-11] MEDS: oxyCODONE 5MG TAB PO PRN (21:23)
[2020-09-12] MEDS: guaiFENesin SYRUP 200 MG/10 ML UDC PO SCH ×4 (00:12→17:16)
[2020-09-12 02:44] VITALS: O2SAT 96
[2020-09-12] MEDS: IPRATROPIUM 0.5MG/ALBUTEROL 2.5MG INH SOL UD 3ML (DUONEB) NEB SCH ×6 (03:02→23:22)
[2020-09-12 06:00] VITALS: BP 154/70
[2020-09-12] MEDS: SERTRALINE 100 MG TAB PO SCH (06:41)
[2020-09-12] MEDS: ALPRAZolam 0.25 MG TAB PO PRN ×2 (06:41→22:02)
[2020-09-12] MEDS: levETIRAcetam 250MG TABLET (KEPPRA) PO SCH (06:41)
[2020-09-12] MEDS: AMIODARONE 200 MG TAB (PACERONE) PO SCH (06:41)
[2020-09-12] MEDS: PANTOPRAZOLE 40MG TAB (PROTONIX) PO SCH (06:41)
[2020-09-12] MEDS: HEPARIN SOD (PORCINE) 5000UNITS/ML 1ML VIAL/SYRINGE SQ SCH ×3 (06:42→22:03)
[2020-09-12] MEDS: oxyCODONE 5MG TAB PO PRN ×2 (06:44→22:03)
--- NOTE | 2020-09-12 07:10 | RO ---
DATE OF OPERATION: 09/11/2020 PREOPERATIVE DIAGNOSIS: Tracheal stenosis, aging tracheostomy tube with frequent intermittent plugging. POSTOPERATIVE DIAGNOSIS: Tracheal stenosis, aging tracheostomy tube with frequent intermittent plugging. SURGEON: Dr. Ortega SALES AND LEASING AGENT: Dr. Hitesh Carrasquillo PROCEDURES: Tracheal dilation, bronchoscopy, aspiration of mucous plugs, and change of tracheostomy tube. Dr. Carrasquillo's assistance was required for manipulating the bronchoscope and tracheostomy tube. Patient is a high-risk trach change because of his tracheal stenosis. FINDINGS: The bronchoscopy revealed the tracheostomy tube, which was placed in [place], was only about 2 cm from the compa. This was placed because of a long-segment tracheal stenosis. The bronchoscopy revealed increased mucous secretions throughout the tracheobronchial tree. Tracheobronchial tree had normal configuration, and there were no endobronchial lesions. The tracheal stenosis segment looked to be smaller than it was in May. It was probably now only about two tracheal rings, at the most three. The stenosis started approximately 2 cm from the tracheal stoma. PROCEDURE DESCRIPTION: Under satisfactory moderate sedation, patient's tracheostomy tube was unclipped from the Velcro strap. The bronchoscope was introduced into the tracheostomy tube, which was found to be quite covered with old mucus and exudate. As noted above, the tracheostomy tube was about 2 cm from the compa. The tracheobronchial tree was suctioned out and cleared. A guiding wire was then placed through the tracheostomy and could clearly be seen going down into the tracheobronchial tree through the bronchoscope. The tracheostomy tube was gradually withdrawn, and a video was taken of the withdrawal to see the tracheal stenosis extent. Tracheostomy tube was removed, and then over the wire and dilator the tracheostomy tube, which was an 8 long [place], was placed without difficulty. It went surprisingly smoothly and very gratifyingly smoothly. The dilator was removed, as was the wire and its guiding sheath. Tracheostomy tube was secured with a Velcro strap, and ventilation resumed. Patient was never hypoxic. [facility]
[2020-09-12] MEDS: (RENVELA) SEVELAMER **CARBONate** 800 MG TAB PO SCH ×3 (07:57→17:16)
[2020-09-12] MEDS: SUCROFERRIC OXYHYDROXIDE 500MG CHEW TAB (VELPHORO) PO SCH ×3 (07:59→17:16)
[2020-09-12] MEDS ORDERED: SODIUM CHLORIDE 0.9% 1000ML IV PRN (08:00)
[2020-09-12 09:07] LABS: HEMATOCRIT 36.3 % (42.0-52.0); HEMOGLOBIN 10.8 g/dl (13.5-17.5); MEAN CORPUSCULAR HEMOGLOBIN 30.8 pg (27.0-33.0); MEAN CORPUSCULAR HGB CONC 29.8 g/dl (32.0-36.5); MEAN CORPUSCULAR VOLUME 103.4 fl (80.0-96.0); PLATELET COUNT, AUTOMATED 171 10^3/uL (150-450); RED BLOOD COUNT 3.51 10^6/uL (4.30-6.10); WHITE BLOOD COUNT 6.5 10^3/uL (4.0-10.0)
[2020-09-12 09:26] LABS: ALBUMIN 2.3 GM/DL (3.2-5.2); BILIRUBIN,TOTAL 0.4 MG/DL (0.2-1.0); CALCIUM LEVEL 9.2 MG/DL (8.5-10.1); CREATININE FOR GFR 5.43 MG/DL (0.70-1.30); POTASSIUM SERUM 4.5 MEQ/L (3.5-5.1); TOTAL PROTEIN 5.8 GM/DL (6.4-8.2)
--- NOTE | 2020-09-12 12:19 | IPNPDOC ---
Date Seen The patient was seen on 09/12/20. Progress Note SUBJECTIVE: No respiratory issues overnight. No complication during trach exchange on 09/21/20. Making ALC again today. He has no acute complaints. OBJECTIVE: PHYSICAL EXAMINATION: VITAL SIGNS: Please see below. GENERAL: comfortable, resting in bed, NAD HEENT: PERRLA, EOMI CARDIOVASCULAR: Normal S1, S2. 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 PLAN: #Chronic respiratory failure status post tracheostomy, tracheal stenosis Trach replacement/exchange 09/11/20 C/w resp treatments, trach care #ESRD on hemodialysis C/w Wednesday, , Wednesday HDschedule #Hypotension. C/w midodrine on dialysis days. #Anemia. Stable, monitor and transfuse if indicated. hemoglobin level is optimal with current dose of Aranesp 100 mcg once a week with dialysis #Chronically bedridden. Awaiting placement to shelter. #Chronic kidney disease, mineral bone disease Renvela and Velphoro dose #DVT px -Teds, scds. Will find out why he is not on AC DISPOSITION: Switched to inpatient care from ALC status today. Pending placement to facility for long-term care. VS, I&O, 24H, Fishbone Vital Signs/I&O Vital Signs Date Time Temp Pulse Resp B/P (MAP) Pulse Ox O2 Delivery O2 Flow Rate FiO2 09/12/20 08:30 5.0 28 09/12/20 07:14 19 Trach Collar 09/12/20 06:44 98 09/12/20 06:42 69 154/70 09/12/20 06:00 98.7 I&O- Last 24 Hours up to 6 AM 09/12/20 06:00 Intake Total 1360 ml Output Total 0 ml Balance 1360 ml Laboratory Data 24H LABS Laboratory Tests 2 09/12/20 08:31: Nucleated Red Blood Cells % (auto) 0.0, Anion Gap 8, Glomerular Filtration Rate 12.0L, Calcium Level 9.2, Total Bilirubin 0.4, Aspartate Amino Transf (AST/SGOT) 17, Alanine Aminotransferase (ALT/SGPT) 12, Alkaline Phosphatase 102, Total Protein 5.8L, Albumin 2.3L, Albumin/Globulin Ratio 0.7 CBC/BMP Laboratory Tests 09/12/20 08:31 Current Medications Current Medications Medications (Trade) Dose Ordered Sig/Alicia Route PRN Reason Start Time Stop Time Status Last Admin Dose Admin Acetaminophen (Tylenol Tab) 650 mg Q6HP PRN PO PAIN / FEVER 06/13/20 04:45 06/16/20 21:00 Albuterol/ Ipratropium (Duoneb (Ipr 0.5mg/Alb 2.5mg)) 3 ml Q2H PRN NEB SHORTNESS OF BREATH 06/11/20 19:45 09/11/20 12:41 Albuterol/ Ipratropium (Duoneb (Ipr 0.5mg/Alb 2.5mg)) 3 ml Q6H PRN NEB SOB/WHEEZING 06/11/20 19:45 06/11/20 19:45 DC Albuterol/ Ipratropium (Duoneb (Ipr 0.5mg/Alb 2.5mg)) 3 ml RQ4H NEB 07/25/20 16:00 09/12/20 11:29 Albuterol/ Ipratropium (Duoneb (Ipr 0.5mg/Alb 2.5mg)) 3 ml RQ6H NEB 06/11/20 20:00 07/25/20 15:32 DC 07/25/20 13:55 Alprazolam (Xanax) 0.25 mg Q6H PRN PO ANXIETY 06/11/20 19:45 09/12/20 06:41 Amiodarone HCl (Pacerone, Cordarone) 200 mg DAILY PO 06/12/20 09:00 09/12/20 06:41 Amlodipine Besylate (Norvasc) 10 mg DAILY PO 08/29/20 09:00 09/12/20 06:42 Benzonatate (Tessalon Perles) 100 mg Q8HP PRN PO COUGH 06/13/20 01:15 06/13/20 12:18 Bisacodyl (Dulcolax Suppository) 10 mg DAILYPRN PRN [place] CONSTIPATION 06/11/20 19:45 06/15/20 16:46 DC Bisacodyl (Dulcolax Tab) 5 mg DAILY PO 06/16/20 09:00 08/04/20 17:40 DC 08/04/20 10:46 Carbamide Peroxide (Debrox) 3 drop BID 06/12/20 21:00 06/16/20 09:01 DC 06/13/20 12:17 Darbepoetin Jairo (Aranesp (Dialysis Use)) 100 mcg HD IV 08/06/20 11:45 09/03/20 07:41 DC Darbepoetin Jairo (Aranesp (Dialysis Use)) 100 mcg HD IV 09/03/20 07:30 09/10/20 09:01 Emollient Cream (Vanicream) to bilateral lo... DAILY TOP 08/05/20 09:00 09/09/20 11:17 DC 09/08/20 09:44 Emollient Cream (Vanicream) to bilateral lo... DAILY PRN TOP DRY SKIN 09/09/20 11:15 Guaifenesin (Robitussin) 5 ml Q6H PO 07/28/20 12:00 09/12/20 06:43 Heparin Sodium (Heparin (Flush)) 200 units ASDIRECTED PRN IV SEE LABEL COMMENTS 06/11/20 19:45 06/11/20 19:49 DC Heparin Sodium (Heparin (Flush)) 200 units ASDIRECTED PRN IV SEE LABEL COMMENTS 06/11/20 19:45 06/20/20 18:55 DC 06/20/20 06:42 Heparin Sodium (Heparin (Flush)) 200 units PICC IV 06/12/20 06:00 06/11/20 19:48 DC Heparin Sodium (Heparin (Flush)) 200 units PICC IV 06/12/20 06:00 06/20/20 18:55 DC 06/20/20 06:41 Heparin Sodium (Heparin) dose as per volume indica... ASDIRECTED PRN IV SEE LABEL COMMENTS 09/04/20 11:30 09/05/20 08:25 DC Heparin Sodium (Heparin) dose as per volume indica... ASDIRECTED PRN IV SEE LABEL COMMENTS 09/04/20 11:30 09/05/20 08:25 DC Heparin Sodium (Porcine) (Heparin) 5,000 units Q8H SQ 06/11/20 22:00 06/13/20 15:19 DC 06/13/20 12:17 Heparin Sodium (Porcine) (Heparin) 5,000 units Q8H SQ 07/25/20 22:00 09/12/20 06:42 Home Med (Med Rec Complete!) ASDIRECTED XX 06/12/20 10:15 06/12/20 10:08 DC Hydralazine HCl (Apresoline) 10 mg Q6H PRN PO SBP>170 06/11/20 19:45 08/06/20 11:39 DC 06/19/20 22:01 Iron (Venofer) 100 mg HD IV 07/11/20 11:30 08/27/20 13:16 DC Levetiracetam (Keppra) 500 mg DAILY PO 06/12/20 09:00 09/12/20 06:41 Lidocaine (Lidoderm Patch) 1 patch DAILY TD 06/12/20 09:00 09/09/20 11:57 DC 07/13/20 06:43 Lidocaine (Lidoderm Patch) 1 patch DAILY PRN TD BACK PAIN 09/09/20 12:00 09/09/20 14:17 DC Lidocaine HCl (Lidocaine 1% Sdv) 0.5 ml ASDIRECTED PRN SC SEE LABEL COMMENTS 09/04/20 11:30 09/05/20 08:26 DC Lidocaine HCl (Lidocaine 1% Sdv) 0.5 ml ASDIRECTED PRN SC SEE LABEL COMMENTS 09/04/20 11:30 09/05/20 08:26 DC Lidocaine HCl (Lidocaine 1% Sdv) 0.5 ml ASDIRECTED PRN SC SEE LABEL COMMENTS 09/07/20 07:30 09/08/20 07:29 DC Lidocaine HCl (Lidocaine 1% Sdv) 0.5 ml ASDIRECTED PRN SC SEE LABEL COMMENTS 09/07/20 07:30 09/08/20 07:29 DC Midodrine (Proamatine) 10 mg ASDIRECTED PO 06/11/20 20:30 08/31/20 21:12 DC 08/10/20 06:14 Midodrine (Proamatine) 10 mg HD PO 06/11/20 21:00 06/11/20 20:22 DC Miscellaneous (Unresolved Clarification Entry) SEE LABEL COMMENTS DAILY XX 06/24/20 09:00 06/25/20 12:54 DC Non-Formulary Medication ( See Comment Field Below ) CHECK TO SEE IF THE PATIENT... DAILY@0800 XX 06/27/20 08:00 09/01/20 18:17 DC 08/10/20 06:36 Non-Formulary Medication ( See Comment Field Below ) REMOVE LIDODERM PATCH DAILY@21 XX 06/11/20 21:00 09/09/20 11:57 DC 09/04/20 21:00 Non-Formulary Medication ( See Comment Field Below ) REMOVE LIDODERM PATCH DAILY@21 PRN XX BACK PAIN 09/09/20 12:00 09/09/20 14:17 DC Nystatin (Mycostatin Powder, Nystop) Apply to groin folds BIDP PRN TOP REDNESS/IRRITATION 08/27/20 01:00 Ondansetron HCl (Zofran) 4 mg Q6HP PRN PO NAUSEA OR VOMITING 07/08/20 12:45 08/22/20 20:36 Oxycodone HCl (Roxicodone, Oxyir) 10 mg Q4H PRN PO PAIN 06/11/20 19:45 09/12/20 06:44 Pantoprazole Sodium (Protonix) 40 mg DAILY PO 06/12/20 09:00 09/12/20 06:41 Polyethylene Glycol (Miralax) 1 pkt DAILY PRN PO CONSTIPATION 06/11/20 19:45 06/15/20 16:45 DC Polyethylene Glycol (Miralax) 1 pkt DAILYPRN PRN PO CONSTIPATION 08/04/20 17:45 Polymyxin/ Trimethoprim Sulfate (Polytrim Ophth Drops) 1 drop 6XD OU 08/03/20 15:00 08/10/20 12:00 DC 08/10/20 06:13 Pramipexole Dihydrochloride (Mirapex) 0.125 mg QHS PO 06/11/20 21:00 09/11/20 21:22 Senna/Docusate Sodium (Senokot S) 2 tab QHS PO 08/04/20 21:00 09/11/20 21:22 Sertraline HCl (Zoloft) 100 mg DAILY PO 06/12/20 09:00 09/12/20 06:41 Sevelamer Carbonate (Renvela) 2,400 mg WM PO 06/12/20 08:00 09/11/20 18:07 Sodium Chloride (Nacl 0.9%) 200 ml ASDIRECTED PRN IV SEE LABEL COMMENTS 09/03/20 07:30 09/05/20 08:26 DC Sodium Chloride (Nacl 0.9%) 200 ml ASDIRECTED PRN IV SEE LABEL COMMENTS 09/04/20 11:30 09/10/20 10:39 DC Sodium Chloride (Nacl 0.9%) 200 ml ASDIRECTED PRN IV SEE LABEL COMMENTS 09/07/20 07:30 09/10/20 10:39 DC Sodium Chloride (Nacl 0.9%) 200 ml ASDIRECTED PRN IV SEE LABEL COMMENTS 09/12/20 08:00 Sodium Chloride (Saline Lock Flush) 10 ml ASDIRECTED PRN IV SEE LABEL COMMENTS 06/11/20 19:45 06/11/20 19:50 DC Sodium Chloride (Saline Lock Flush) 10 ml ASDIRECTED PRN IV SEE LABEL COMMENTS 06/11/20 19:45 06/20/20 18:55 DC 06/20/20 06:41 Sodium Chloride (Saline Lock Flush) 10 ml PICC IV 06/12/20 06:00 06/11/20 19:49 DC Sodium Chloride (Saline Lock Flush) 10 ml PICC IV 06/12/20 06:00 06/20/20 18:55 DC 06/20/20 06:41 Sucroferric Oxyhydroxide (Velphoro) 500 mg WM PO 07/11/20 12:30 09/11/20 18:07 Allergies Coded Allergies: moxifloxacin (Verified Allergy, Intermediate, RASH, 12/25/19) codeine (Verified Allergy, Unknown, 12/25/19) valsartan (Verified Allergy, Unknown, 12/25/19) Claudette Padron MD Sep 12, 2020 12:19
[2020-09-12 21:00] VITALS: O2SAT 94
[2020-09-12] MEDS: PRAMIPEXOLE (MIRAPEX) 0.125 MG TAB PO SCH (21:00)
[2020-09-12] MEDS: SENOKOT S TAB PO SCH (22:03)
[2020-09-13] MEDS: guaiFENesin SYRUP 200 MG/10 ML UDC PO SCH ×4 (00:09→17:57)
[2020-09-13] MEDS: IPRATROPIUM 0.5MG/ALBUTEROL 2.5MG INH SOL UD 3ML (DUONEB) NEB SCH ×7 (03:34→23:21)
[2020-09-13] MEDS: HEPARIN SOD (PORCINE) 5000UNITS/ML 1ML VIAL/SYRINGE SQ SCH ×3 (05:01→21:55)
[2020-09-13 06:00] VITALS: BP 136/74
[2020-09-13 08:30] VITALS: O2SAT 93
[2020-09-13] MEDS: SUCROFERRIC OXYHYDROXIDE 500MG CHEW TAB (VELPHORO) PO SCH ×3 (08:34→17:57)
[2020-09-13] MEDS: (RENVELA) SEVELAMER **CARBONate** 800 MG TAB PO SCH ×3 (08:34→17:57)
[2020-09-13] MEDS: PANTOPRAZOLE 40MG TAB (PROTONIX) PO SCH (08:35)
[2020-09-13] MEDS: SERTRALINE 100 MG TAB PO SCH (08:35)
[2020-09-13] MEDS: levETIRAcetam 250MG TABLET (KEPPRA) PO SCH (08:35)
[2020-09-13] MEDS: AMIODARONE 200 MG TAB (PACERONE) PO SCH (08:35)
[2020-09-13] MEDS: IPRATROPIUM 0.5MG/ALBUTEROL 2.5MG INH SOL UD 3ML (DUONEB) NEB PRN ×2 (14:02→17:06)
--- NOTE | 2020-09-13 14:20 | IPN ---
DATE: 09/12/2020 SUBJECTIVE: Matthew is seen and examined this morning in the hemodialysis unit receiving his treatment. He denies any complaints or events. He is seen on dialysis days only. He is status post trach exchange on September 11 which was reportedly uneventful. PHYSICAL EXAMINATION: Temperature 98.7, pulse 69, respiratory rate 18, blood pressure 154/70, saturating 98% on trach collar. Intake yesterday was not fully recorded. Dialysis today removed 3 liters. Weight on the bed scale today is not recorded. General: Patient is seen in the dialysis unit receiving his treatment, obese male lying in bed awake, alert, oriented, comfortable, baseline mentation, not in any distress. HEENT: Makes eye contact. Tongue is moist. Neck: There is a trach in place. I cannot assess the neck veins. Heart: Sounds are distant and regular, S1 and S2. There is no significant leg edema. Respiratory: Shows tracheostomy and lungs clear to auscultation bilaterally. No crackles or rales. Abdomen: Obese and soft and nontender to palpation. Extremities: Show right arm fistula which is presently in use. His feet are in Float boots. Neurologic: He communicates via mouthing. He is oriented times 3, at baseline mentation. Psychiatric: Calm, cooperative. LABORATORY DATA: Sodium 138, potassium 4.5, bicarbonate 27. AST/ALT are normal. Hemoglobin 10.8, platelets 171. PTH has risen from 200 in July up to 391 today. INPATIENT MEDICATIONS: Reviewed by myself and no change from prior. PROBLEMS/PLAN: 1. End-stage renal disease: On hemodialysis Wednesday, , Wednesday schedule. His electrolytes and volume status are acceptable. We remove 3-3.5 liters per each treatment. His fistula is in good use. He receives heparin with dialysis. Continue current prescription. 2. Hypertension: Blood pressures are well controlled with current dose of amlodipine. He tolerates fluid removal without hypotension of hemodialysis. 3. Anemia of end-stage renal failure: Hemoglobin is at goal and he continues with stable dose of Aranesp and blood count is intermittently checked. 4. Secondary hyperparathyroidism of renal origin: His PTH has almost doubled while he has been in the hospital. Continue Velphoro and renvela. His calcium and phosphorus levels are fairly acceptable. We will get an updated vitamin D. [facility]
[2020-09-13 21:00] VITALS: O2SAT 94
[2020-09-13] MEDS: PRAMIPEXOLE (MIRAPEX) 0.125 MG TAB PO SCH (21:54)
[2020-09-13] MEDS: oxyCODONE 5MG TAB PO PRN (21:54)
[2020-09-13] MEDS: ALPRAZolam 0.25 MG TAB PO PRN (21:54)
[2020-09-13] MEDS: SENOKOT S TAB PO SCH (21:55)
[2020-09-14] MEDS: guaiFENesin SYRUP 200 MG/10 ML UDC PO SCH ×4 (00:27→18:05)
[2020-09-14] MEDS: IPRATROPIUM 0.5MG/ALBUTEROL 2.5MG INH SOL UD 3ML (DUONEB) NEB SCH ×6 (03:34→23:46)
[2020-09-14 06:00] VITALS: BP 167/71
[2020-09-14] MEDS: HEPARIN SOD (PORCINE) 5000UNITS/ML 1ML VIAL/SYRINGE SQ SCH ×3 (06:38→21:42)
[2020-09-14] MEDS: SERTRALINE 100 MG TAB PO SCH (06:39)
[2020-09-14] MEDS: levETIRAcetam 250MG TABLET (KEPPRA) PO SCH (06:39)
[2020-09-14] MEDS: AMIODARONE 200 MG TAB (PACERONE) PO SCH (06:39)
[2020-09-14] MEDS: PANTOPRAZOLE 40MG TAB (PROTONIX) PO SCH (06:39)
[2020-09-14] MEDS: (RENVELA) SEVELAMER **CARBONate** 800 MG TAB PO SCH ×3 (07:48→18:00)
[2020-09-14] MEDS: SUCROFERRIC OXYHYDROXIDE 500MG CHEW TAB (VELPHORO) PO SCH ×3 (07:49→18:00)
[2020-09-14 08:30] VITALS: O2SAT 92
[2020-09-14 09:21] LABS: HEMOGLOBIN 10.7 g/dl (13.5-17.5); MEAN CORPUSCULAR HEMOGLOBIN 30.8 pg (27.0-33.0); MEAN CORPUSCULAR HGB CONC 29.7 g/dl (32.0-36.5); MEAN CORPUSCULAR VOLUME 103.7 fl (80.0-96.0); PLATELET COUNT, AUTOMATED 192 10^3/uL (150-450); RED BLOOD COUNT 3.47 10^6/uL (4.30-6.10); WHITE BLOOD COUNT 7.2 10^3/uL (4.0-10.0)
[2020-09-14 09:48] LABS: CALCIUM LEVEL 8.5 MG/DL (8.5-10.1); CREATININE FOR GFR 5.15 MG/DL (0.70-1.30); GLOMERULAR FILTRATION RATE 12.8 (>60)
[2020-09-14 21:00] VITALS: O2SAT 93
[2020-09-14] MEDS: PRAMIPEXOLE (MIRAPEX) 0.125 MG TAB PO SCH (21:41)
[2020-09-14] MEDS: SENOKOT S TAB PO SCH (21:41)
[2020-09-14] MEDS: ALPRAZolam 0.25 MG TAB PO PRN (21:41)
[2020-09-14] MEDS: oxyCODONE 5MG TAB PO PRN (21:42)
[2020-09-15] MEDS: guaiFENesin SYRUP 200 MG/10 ML UDC PO SCH ×4 (00:43→18:12)
[2020-09-15] MEDS: IPRATROPIUM 0.5MG/ALBUTEROL 2.5MG INH SOL UD 3ML (DUONEB) NEB SCH ×6 (03:37→23:43)
[2020-09-15] MEDS: HEPARIN SOD (PORCINE) 5000UNITS/ML 1ML VIAL/SYRINGE SQ SCH ×3 (05:45→22:12)
[2020-09-15 06:00] VITALS: BP 159/93
[2020-09-15 08:00] VITALS: O2SAT 95
[2020-09-15] MEDS: SUCROFERRIC OXYHYDROXIDE 500MG CHEW TAB (VELPHORO) PO SCH ×3 (08:00→18:12)
[2020-09-15] MEDS: (RENVELA) SEVELAMER **CARBONate** 800 MG TAB PO SCH ×3 (08:00→18:12)
[2020-09-15] MEDS: AMIODARONE 200 MG TAB (PACERONE) PO SCH (09:09)
[2020-09-15] MEDS: PANTOPRAZOLE 40MG TAB (PROTONIX) PO SCH (09:09)
[2020-09-15] MEDS: SERTRALINE 100 MG TAB PO SCH (09:09)
[2020-09-15] MEDS: levETIRAcetam 250MG TABLET (KEPPRA) PO SCH (09:09)
[2020-09-15] MEDS: IPRATROPIUM 0.5MG/ALBUTEROL 2.5MG INH SOL UD 3ML (DUONEB) NEB PRN ×2 (12:49→21:01)
[2020-09-15] MEDS: SENOKOT S TAB PO SCH (21:00)
[2020-09-15] MEDS: PRAMIPEXOLE (MIRAPEX) 0.125 MG TAB PO SCH (22:11)
[2020-09-15] MEDS: ALPRAZolam 0.25 MG TAB PO PRN (22:11)
[2020-09-15] MEDS: oxyCODONE 5MG TAB PO PRN (22:12)
[2020-09-15 23:58] VITALS: O2SAT 97
[2020-09-16] MEDS: guaiFENesin SYRUP 200 MG/10 ML UDC PO SCH ×4 (01:04→18:00)
[2020-09-16] MEDS: IPRATROPIUM 0.5MG/ALBUTEROL 2.5MG INH SOL UD 3ML (DUONEB) NEB SCH ×5 (03:46→19:53)
[2020-09-16] MEDS: HEPARIN SOD (PORCINE) 5000UNITS/ML 1ML VIAL/SYRINGE SQ SCH ×3 (05:07→21:45)
[2020-09-16 06:00] VITALS: BP 157/68
[2020-09-16 06:40] LABS: HEMOGLOBIN 11.4 g/dl (13.5-17.5); MEAN CORPUSCULAR HEMOGLOBIN 31.2 pg (27.0-33.0); MEAN CORPUSCULAR VOLUME 104.1 fl (80.0-96.0); PLATELET COUNT, AUTOMATED 184 10^3/uL (150-450); RED BLOOD COUNT 3.65 10^6/uL (4.30-6.10); WHITE BLOOD COUNT 7.3 10^3/uL (4.0-10.0)
[2020-09-16 07:06] LABS: ALBUMIN 2.5 GM/DL (3.2-5.2); BILIRUBIN,TOTAL 0.5 MG/DL (0.2-1.0); CREATININE FOR GFR 5.02 MG/DL (0.70-1.30); GLOMERULAR FILTRATION RATE 13.2 (>60); POTASSIUM SERUM 4.1 MEQ/L (3.5-5.1)
[2020-09-16] MEDS: SUCROFERRIC OXYHYDROXIDE 500MG CHEW TAB (VELPHORO) PO SCH ×4 (08:00→18:00)
[2020-09-16] MEDS: (RENVELA) SEVELAMER **CARBONate** 800 MG TAB PO SCH ×3 (08:20→18:00)
[2020-09-16] MEDS: PANTOPRAZOLE 40MG TAB (PROTONIX) PO SCH (08:21)
[2020-09-16] MEDS: AMIODARONE 200 MG TAB (PACERONE) PO SCH (08:21)
[2020-09-16] MEDS: levETIRAcetam 250MG TABLET (KEPPRA) PO SCH (08:21)
[2020-09-16] MEDS: SERTRALINE 100 MG TAB PO SCH (08:22)
[2020-09-16 10:31] LABS: TOTAL 25(OH) VITAMIN D 30.6 NG/ML (30.0-100.0)
--- NOTE | 2020-09-16 11:28 | IPN ---
DATE: 09/14/2020 SUBJECTIVE: Mr. Richard is seen this morning during hemodialysis. He is feeling well and denies any new complaints. He has a tracheostomy and remains on trach collar. He denies any nausea, vomiting, dyspnea or chest pain. PHYSICAL EXAMINATION: VITALS: Temperature 98.6 degrees Fahrenheit, heart 80 per minute, respiratory rate 18 per minute, blood pressure earlier 167/70 mmHg and now it is down to 120/65 mmHg, oxygen saturation 98% on trach collar. HEENT: Head is atraumatic. NECK: With tracheostomy and JVD difficult to be assessed. HEART: Regular. LUNGS: Diminished breath sounds. ABDOMEN: Obese, soft and nontender. EXTREMITIES: Without any signs of clubbing. Right arm AV fistula is currently being used. Both feet are in protective foam boots. NEURO: He is awake and unable to talk due to tracheostomy. He has loss of strength in his lower extremities. LABORATORY STUDIES: Todays lab show WBC 7.2, hemoglobin 10.7, hematocrit 36.0, platelets 192,000. Sodium 140, potassium 4.0, CO2 29, BUN 26, creatinine 5.15, calcium 8.5 and glucose 99. PROBLEMS: 1. End-stage renal disease: The patient is being dialyzed and is tolerating his dialysis well. Electrolytes are within normal range. 2. Anemia: His anemia has been stable and unchanged. No intervention is needed. 3. Respiratory failure: Related to obstructive sleep apnea and obesity associated hypoventilation. The patient has a tracheostomy and remains on trach collar. His volume status is well compensated. 4. Hyperparathyroidism: His intact PTH level was 392 just last week, his Vitamin D level is still pending. At this point, he remains on phosphate binders and no Vitamin D or Sensipar. [facility]
[2020-09-16] MEDS: ALPRAZolam 0.25 MG TAB PO PRN (21:44)
[2020-09-16] MEDS: PRAMIPEXOLE (MIRAPEX) 0.125 MG TAB PO SCH (21:44)
[2020-09-16] MEDS: SENOKOT S TAB PO SCH (21:45)
[2020-09-16] MEDS: oxyCODONE 5MG TAB PO PRN (21:45)
[2020-09-17] MEDS: guaiFENesin SYRUP 200 MG/10 ML UDC PO SCH ×4 (00:16→18:29)
[2020-09-17] MEDS: IPRATROPIUM 0.5MG/ALBUTEROL 2.5MG INH SOL UD 3ML (DUONEB) NEB SCH ×7 (00:22→23:09)
[2020-09-17 01:52] VITALS: O2SAT 96
[2020-09-17] MEDS: HEPARIN SOD (PORCINE) 5000UNITS/ML 1ML VIAL/SYRINGE SQ SCH ×3 (05:46→22:07)
[2020-09-17 06:00] VITALS: BP 121/55
--- NOTE | 2020-09-17 07:29 | IPN ---
NEPHROLOGY PROGRESS NOTE DATE: 09/16/2020 SUBJECTIVE: Mr. Richard is seen this morning during hemodialysis. He is feeling about he same and denies any new complaints. He remains on a trach color. He is not in any acute distress at present. PHYSICAL EXAMINATION: Temperature 98 degrees Fahrenheit, heart rate 72 per minute and respiratory rate 20 per minute. Blood pressure 160/70 mmHg and oxygen saturation 96% on trach color. Head: Atraumatic. Neck: Supple and JVD difficult to be assessed. Tracheostomy is in place. Heart: Sounds are regular. Lungs: Have moderate bilateral air entry. Abdomen: Obese, soft and nontender and bowel sounds are normal. Extremities: Without any cyanosis or clubbing. Right arm AV fistula is being used for dialysis. His feet are both in the Foam boots. Neurologically: He is at his baseline mentation with inability to move his lower extremities which is chronic issue. LABORATORY DATA: Todays labs show WBC count 7.3, hemoglobin 11.4, hematocrit 38, platelets 184. Sodium 139, potassium 4.1, CO2 30, BUN 23 and creatinine 5.02. Total protein 6. Albumin 2.5. PROBLEMS/PLAN: 1. End-stage renal disease: Patient is being dialyzed and he is tolerating dialysis well. Three liters of fluid is being removed. 2. Hypertension: Blood pressure well controlled on current medications and no changes are being made today. 3. Anemia: His anemia has improved and hemoglobin is now 11. I am going to temporarily stop his Aranesp and will resume when needed. 4. Respiratory failure: Status post tracheostomy. This is a chronic issue and related to his obstructive sleep apnea and obesity associated hypoventilation. His volume status is well compensated and we remove about 3 liters of fluid with each dialysis. 5. Disposition: Patient is currently waiting for a long term bed. [facility]
[2020-09-17] MEDS: (RENVELA) SEVELAMER **CARBONate** 800 MG TAB PO SCH ×3 (08:00→18:29)
[2020-09-17] MEDS: SUCROFERRIC OXYHYDROXIDE 500MG CHEW TAB (VELPHORO) PO SCH ×3 (08:00→18:00)
[2020-09-17] MEDS: levETIRAcetam 250MG TABLET (KEPPRA) PO SCH (10:51)
[2020-09-17] MEDS: PANTOPRAZOLE 40MG TAB (PROTONIX) PO SCH (10:51)
[2020-09-17] MEDS: SERTRALINE 100 MG TAB PO SCH (10:51)
[2020-09-17] MEDS: AMIODARONE 200 MG TAB (PACERONE) PO SCH (10:54)
[2020-09-17 22:00] VITALS: O2SAT 95
[2020-09-17] MEDS: SENOKOT S TAB PO SCH (22:07)
[2020-09-17] MEDS: PRAMIPEXOLE (MIRAPEX) 0.125 MG TAB PO SCH (22:07)
[2020-09-17] MEDS: ALPRAZolam 0.25 MG TAB PO PRN (22:07)
[2020-09-17] MEDS: oxyCODONE 5MG TAB PO PRN (22:08)
[2020-09-18] MEDS: guaiFENesin SYRUP 200 MG/10 ML UDC PO SCH ×4 (00:30→18:00)
[2020-09-18] MEDS: IPRATROPIUM 0.5MG/ALBUTEROL 2.5MG INH SOL UD 3ML (DUONEB) NEB SCH ×6 (03:05→23:33)
[2020-09-18 06:00] VITALS: BP 137/66
[2020-09-18] MEDS: HEPARIN SOD (PORCINE) 5000UNITS/ML 1ML VIAL/SYRINGE SQ SCH ×4 (06:21→21:24)
[2020-09-18] MEDS: SERTRALINE 100 MG TAB PO SCH (06:22)
[2020-09-18] MEDS: PANTOPRAZOLE 40MG TAB (PROTONIX) PO SCH (06:23)
[2020-09-18] MEDS: levETIRAcetam 250MG TABLET (KEPPRA) PO SCH (06:23)
[2020-09-18] MEDS: AMIODARONE 200 MG TAB (PACERONE) PO SCH (06:23)
[2020-09-18] MEDS: SUCROFERRIC OXYHYDROXIDE 500MG CHEW TAB (VELPHORO) PO SCH ×3 (08:00→18:00)
[2020-09-18] MEDS: (RENVELA) SEVELAMER **CARBONate** 800 MG TAB PO SCH ×3 (08:00→18:00)
[2020-09-18] MEDS: PRAMIPEXOLE (MIRAPEX) 0.125 MG TAB PO SCH (21:23)
[2020-09-18] MEDS: SENOKOT S TAB PO SCH (21:23)
[2020-09-18] MEDS: ALPRAZolam 0.25 MG TAB PO PRN (21:23)
[2020-09-18] MEDS: oxyCODONE 5MG TAB PO PRN (21:24)
[2020-09-19] MEDS: guaiFENesin SYRUP 200 MG/10 ML UDC PO SCH ×4 (00:23→17:54)
[2020-09-19] MEDS: IPRATROPIUM 0.5MG/ALBUTEROL 2.5MG INH SOL UD 3ML (DUONEB) NEB SCH ×6 (03:22→23:25)
[2020-09-19] MEDS: HEPARIN SOD (PORCINE) 5000UNITS/ML 1ML VIAL/SYRINGE SQ SCH ×3 (05:45→21:56)
[2020-09-19 06:00] VITALS: BP 134/78
[2020-09-19] MEDS: SUCROFERRIC OXYHYDROXIDE 500MG CHEW TAB (VELPHORO) PO SCH ×3 (08:00→17:52)
[2020-09-19] MEDS: (RENVELA) SEVELAMER **CARBONate** 800 MG TAB PO SCH ×3 (08:00→17:52)
[2020-09-19] MEDS: AMIODARONE 200 MG TAB (PACERONE) PO SCH (10:04)
[2020-09-19] MEDS: levETIRAcetam 250MG TABLET (KEPPRA) PO SCH (10:05)
[2020-09-19] MEDS: SERTRALINE 100 MG TAB PO SCH (10:05)
[2020-09-19] MEDS: PANTOPRAZOLE 40MG TAB (PROTONIX) PO SCH (10:05)
[2020-09-19] MEDS: oxyCODONE 5MG TAB PO PRN (21:56)
[2020-09-19] MEDS: SENOKOT S TAB PO SCH (21:56)
[2020-09-19] MEDS: ALPRAZolam 0.25 MG TAB PO PRN (21:56)
[2020-09-19] MEDS: PRAMIPEXOLE (MIRAPEX) 0.125 MG TAB PO SCH (21:56)
[2020-09-20] MEDS: guaiFENesin SYRUP 200 MG/10 ML UDC PO SCH ×4 (00:28→18:38)
[2020-09-20] MEDS: IPRATROPIUM 0.5MG/ALBUTEROL 2.5MG INH SOL UD 3ML (DUONEB) NEB SCH ×6 (04:06→23:57)
[2020-09-20] MEDS: HEPARIN SOD (PORCINE) 5000UNITS/ML 1ML VIAL/SYRINGE SQ SCH ×3 (05:16→21:14)
[2020-09-20 06:00] VITALS: BP 136/76
[2020-09-20 07:05] VITALS: O2SAT 98
[2020-09-20] MEDS: SUCROFERRIC OXYHYDROXIDE 500MG CHEW TAB (VELPHORO) PO SCH ×3 (08:00→18:00)
[2020-09-20] MEDS: (RENVELA) SEVELAMER **CARBONate** 800 MG TAB PO SCH ×3 (08:00→18:00)
[2020-09-20 08:30] VITALS: O2SAT 96
[2020-09-20] MEDS: SERTRALINE 100 MG TAB PO SCH (09:50)
[2020-09-20] MEDS: PANTOPRAZOLE 40MG TAB (PROTONIX) PO SCH (09:50)
[2020-09-20] MEDS: AMIODARONE 200 MG TAB (PACERONE) PO SCH (09:50)
[2020-09-20] MEDS: levETIRAcetam 250MG TABLET (KEPPRA) PO SCH (09:50)
[2020-09-20 20:26] VITALS: O2SAT 98
[2020-09-20 21:14] VITALS: O2SAT 97
[2020-09-20] MEDS: ALPRAZolam 0.25 MG TAB PO PRN (21:14)
[2020-09-20] MEDS: PRAMIPEXOLE (MIRAPEX) 0.125 MG TAB PO SCH (21:15)
[2020-09-20] MEDS: SENOKOT S TAB PO SCH (21:15)
[2020-09-20] MEDS: oxyCODONE 5MG TAB PO PRN (21:15)
[2020-09-20 23:57] VITALS: O2SAT 97
[2020-09-21] MEDS: guaiFENesin SYRUP 200 MG/10 ML UDC PO SCH ×5 (00:34→23:53)
[2020-09-21] MEDS: oxyCODONE 5MG TAB PO PRN ×2 (03:44→22:04)
[2020-09-21] MEDS: IPRATROPIUM 0.5MG/ALBUTEROL 2.5MG INH SOL UD 3ML (DUONEB) NEB SCH ×6 (04:09→23:21)
[2020-09-21 04:10] VITALS: O2SAT 97
[2020-09-21 06:00] VITALS: BP 116/57
[2020-09-21] MEDS: HEPARIN SOD (PORCINE) 5000UNITS/ML 1ML VIAL/SYRINGE SQ SCH ×3 (06:00→22:03)
[2020-09-21 06:17] LABS: BASO % 0.5 % (0.0-1.0); EOS # 0.4 10^3/uL (0.0-0.5); EOS % 5.8 % (0.0-3.0); HEMATOCRIT 37.4 % (42.0-52.0); HEMOGLOBIN 11.1 g/dl (13.5-17.5); LYMPH # 1.6 10^3/uL (1.5-5.0); LYMPH % 25.5 % (24.0-44.0); MEAN CORPUSCULAR HEMOGLOBIN 31.3 pg (27.0-33.0); MEAN CORPUSCULAR HGB CONC 29.7 g/dl (32.0-36.5); MEAN CORPUSCULAR VOLUME 105.4 fl (80.0-96.0); MONO # 0.3 10^3/uL (0.0-0.8); MONO % 4.6 % (0.0-5.0); NEUTROPHILS % 63.3 % (36.0-66.0); PLATELET COUNT, AUTOMATED 146 10^3/uL (150-450); RED BLOOD COUNT 3.55 10^6/uL (4.30-6.10); WHITE BLOOD COUNT 6.4 10^3/uL (4.0-10.0)
[2020-09-21 06:29] LABS: ALBUMIN 2.5 GM/DL (3.2-5.2); CALCIUM LEVEL 8.9 MG/DL (8.5-10.1); CREATININE FOR GFR 5.95 MG/DL (0.70-1.30); GLOMERULAR FILTRATION RATE 10.8 (>60); PHOSPHORUS LEVEL 6.5 MG/DL (2.5-4.9); POTASSIUM SERUM 5.4 MEQ/L (3.5-5.1)
[2020-09-21] MEDS: levETIRAcetam 250MG TABLET (KEPPRA) PO SCH (06:39)
[2020-09-21] MEDS: SERTRALINE 100 MG TAB PO SCH (06:39)
[2020-09-21] MEDS: PANTOPRAZOLE 40MG TAB (PROTONIX) PO SCH (06:40)
[2020-09-21] MEDS: AMIODARONE 200 MG TAB (PACERONE) PO SCH (06:40)
[2020-09-21 07:28] VITALS: O2SAT 98
[2020-09-21] MEDS ORDERED: LIDOCAINE 1% SDV 5ML VIAL SC PRN (08:00)
[2020-09-21] MEDS: (RENVELA) SEVELAMER **CARBONate** 800 MG TAB PO SCH ×3 (08:00→17:49)
[2020-09-21] MEDS: SUCROFERRIC OXYHYDROXIDE 500MG CHEW TAB (VELPHORO) PO SCH (08:00)
[2020-09-21] MEDS: SENOKOT S TAB PO SCH (22:03)
[2020-09-21] MEDS: ALPRAZolam 0.25 MG TAB PO PRN (22:05)
[2020-09-21] MEDS: PRAMIPEXOLE (MIRAPEX) 0.125 MG TAB PO SCH (22:05)
[2020-09-22] MEDS: IPRATROPIUM 0.5MG/ALBUTEROL 2.5MG INH SOL UD 3ML (DUONEB) NEB SCH ×6 (03:14→23:02)
[2020-09-22 06:00] VITALS: BP 165/67
[2020-09-22] MEDS: guaiFENesin SYRUP 200 MG/10 ML UDC PO SCH ×4 (06:49→23:21)
[2020-09-22] MEDS: HEPARIN SOD (PORCINE) 5000UNITS/ML 1ML VIAL/SYRINGE SQ SCH ×3 (06:50→21:11)
[2020-09-22 07:09] VITALS: O2SAT 98
[2020-09-22] MEDS: (RENVELA) SEVELAMER **CARBONate** 800 MG TAB PO SCH ×3 (09:24→18:00)
[2020-09-22] MEDS: AMIODARONE 200 MG TAB (PACERONE) PO SCH (09:25)
[2020-09-22] MEDS: levETIRAcetam 250MG TABLET (KEPPRA) PO SCH (09:25)
[2020-09-22] MEDS: SERTRALINE 100 MG TAB PO SCH (09:25)
[2020-09-22] MEDS: PANTOPRAZOLE 40MG TAB (PROTONIX) PO SCH (09:26)
[2020-09-22] MEDS: IPRATROPIUM 0.5MG/ALBUTEROL 2.5MG INH SOL UD 3ML (DUONEB) NEB PRN ×2 (13:13→18:13)
[2020-09-22] MEDS: ALPRAZolam 0.25 MG TAB PO PRN (21:11)
[2020-09-22] MEDS: PRAMIPEXOLE (MIRAPEX) 0.125 MG TAB PO SCH (21:12)
[2020-09-22] MEDS: SENOKOT S TAB PO SCH (21:12)
[2020-09-22] MEDS: oxyCODONE 5MG TAB PO PRN (21:13)
[2020-09-22] MEDS: VANICREAM MOISTURIZING SKIN CREAM 113GM TUBE TOP PRN (21:20)
[2020-09-23] MEDS: IPRATROPIUM 0.5MG/ALBUTEROL 2.5MG INH SOL UD 3ML (DUONEB) NEB SCH ×6 (02:05→23:13)
[2020-09-23 05:06] VITALS: BP 165/74
[2020-09-23] MEDS: IPRATROPIUM 0.5MG/ALBUTEROL 2.5MG INH SOL UD 3ML (DUONEB) NEB PRN ×2 (05:11→17:45)
[2020-09-23] MEDS: guaiFENesin SYRUP 200 MG/10 ML UDC PO SCH ×4 (05:33→23:47)
[2020-09-23] MEDS: HEPARIN SOD (PORCINE) 5000UNITS/ML 1ML VIAL/SYRINGE SQ SCH ×3 (05:33→20:35)
[2020-09-23] MEDS: (RENVELA) SEVELAMER **CARBONate** 800 MG TAB PO SCH ×3 (08:00→18:00)
[2020-09-23] MEDS: SERTRALINE 100 MG TAB PO SCH (08:58)
[2020-09-23] MEDS: levETIRAcetam 250MG TABLET (KEPPRA) PO SCH (08:59)
[2020-09-23] MEDS: AMIODARONE 200 MG TAB (PACERONE) PO SCH (08:59)
[2020-09-23] MEDS: PANTOPRAZOLE 40MG TAB (PROTONIX) PO SCH (08:59)
[2020-09-23] MEDS: oxyCODONE 5MG TAB PO PRN ×2 (11:02→20:37)
[2020-09-23] MEDS: ALPRAZolam 0.25 MG TAB PO PRN (20:35)
[2020-09-23] MEDS: PRAMIPEXOLE (MIRAPEX) 0.125 MG TAB PO SCH (20:37)
[2020-09-23] MEDS: SENOKOT S TAB PO SCH (20:37)
[2020-09-24] MEDS: IPRATROPIUM 0.5MG/ALBUTEROL 2.5MG INH SOL UD 3ML (DUONEB) NEB PRN (01:55)
[2020-09-24] MEDS: IPRATROPIUM 0.5MG/ALBUTEROL 2.5MG INH SOL UD 3ML (DUONEB) NEB SCH ×6 (03:35→23:38)
[2020-09-24 06:00] VITALS: BP 118/54
[2020-09-24] MEDS: guaiFENesin SYRUP 200 MG/10 ML UDC PO SCH ×4 (06:18→23:52)
[2020-09-24] MEDS: HEPARIN SOD (PORCINE) 5000UNITS/ML 1ML VIAL/SYRINGE SQ SCH ×3 (06:18→21:09)
[2020-09-24] MEDS ORDERED: LIDOCAINE 1% SDV 5ML VIAL SC PRN (07:15)
[2020-09-24] MEDS ORDERED: SODIUM CHLORIDE 0.9% 1000ML IV PRN (07:15)
[2020-09-24] MEDS: PANTOPRAZOLE 40MG TAB (PROTONIX) PO SCH (07:25)
[2020-09-24] MEDS: SERTRALINE 100 MG TAB PO SCH (07:26)
[2020-09-24] MEDS: AMIODARONE 200 MG TAB (PACERONE) PO SCH (07:26)
[2020-09-24] MEDS: levETIRAcetam 250MG TABLET (KEPPRA) PO SCH (07:26)
[2020-09-24] MEDS: (RENVELA) SEVELAMER **CARBONate** 800 MG TAB PO SCH ×3 (07:27→18:00)
[2020-09-24 09:25] LABS: ALBUMIN 2.5 GM/DL (3.2-5.2); CALCIUM LEVEL 9.2 MG/DL (8.5-10.1); CREATININE FOR GFR 6.96 MG/DL (0.70-1.30); PHOSPHORUS LEVEL 6.5 MG/DL (2.5-4.9); POTASSIUM SERUM 5.1 MEQ/L (3.5-5.1)
--- NOTE | 2020-09-24 12:46 | IPN ---
PROGRESS NOTE DATE: 09/24/2020 SUBJECTIVE: The patient was seen and examined at the bedside today morning during hemodialysis. He is tolerating the hemodialysis procedure well. He denies any active complaints. OBJECTIVE: VITAL SIGNS: Temperature is 98 degrees Fahrenheit, blood pressure is 142/58, pulse is 74, respiratory rate of 20, saturating 94% on the trach collar with 28% FIO2. Intake and output: There is no urine output recorded and there is no bed scale weight available. GENERAL: The patient is awake, alert and oriented x3, morbidly obese, laying in the bed getting hemodialysis done. HEAD AND NECK: Pupils are equally round and reactive to light. Mucous membranes are moist. Neck is supple. He has a tracheostomy and a trach collar. CARDIOVASCULAR: Regular rate. No edema of the bilateral lower extremities. CHEST: Clear to auscultation bilaterally anteriorly. ABDOMEN: Soft, morbidly obese, no organomegaly was noted. GENITOURINARY: His bladder is nonpalpable. MUSCULOSKELETAL: He is wearing waffle boots of bilateral lower extremities. 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 Power is 5/5 in bilateral upper extremities. LABORATORY DATA: CBC was done on September 21 with a hemoglobin of 11.1, BMP done today morning showed a sodium of 136, potassium 5.1, chloride 103, bicarbonate 25, BUN 44, creatinine 6.9, phosphorus is 6.5, albumin is 2.5. CURRENT INPATIENT MEDICATIONS: Patient's medications were all reviewed by myself, there is no significant change in the medications today as compared with last time. ASSESSMENT AND PLAN: 1. Endstage renal disease, patient is being dialyzed according to his regular schedule. We should remove 3 liters of fluid during dialysis today. 2. Anemia and endstage renal disease, hemoglobin is very well optimized with current dose of Aranesp. 3. Chronic kidney disease, mineral bone disease, patient is noncompliant with the phosphorus binders, phosphorus is high. He was again advised to take his binders with meals. He is supposed to be on Velphoro as well but he was persistently refusing to take it so I have removed it from his medications. 4. Hypertension, blood pressure is very well-controlled with current dose of amlodipine 10 mg p.o. daily and with optimization of his volume status.
--- NOTE | 2020-09-24 13:46 | IPNPDOC ---
Date Seen The patient was seen on 09/24/20. Progress Note SUBJECTIVE: No acute complaints or overnight events. OBJECTIVE: PHYSICAL EXAMINATION: VITAL SIGNS: Please see below. GENERAL: comfortable, resting in bed, NAD HEENT: PERRLA, EOMI CARDIOVASCULAR: Normal S1, S2. 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 PLAN: #Chronic respiratory failure status post tracheostomy, tracheal stenosis -Trach replacement/exchange 09/11/20 -C/w resp treatments, trach care #ESRD on hemodialysis -C/w Wednesday, , Wednesday HD schedule #Hypotension. -C/w midodrine on dialysis days. #Anemia. -Stable, monitor and transfuse if indicated. -hemoglobin level is optimal -Was receiving Aranesp 100 mcg once a week with dialysis until recently #Chronically bedridden. -Awaiting placement to halfway. #Chronic kidney disease, mineral bone disease -Renvela and Velphoro dose #DVT px -Teds, scds.Heparin DISPOSITION: Remains [facility] status. Awaiting on guardianship paperwork then plan is placement to facility for long-term care. VS, I&O, 24H, Fishbone Vital Signs/I&O Vital Signs Date Time Temp Pulse Resp B/P (MAP) Pulse Ox O2 Delivery O2 Flow Rate FiO2 09/24/20 10:07 5.0 28 09/24/20 07:26 74 142/58 09/24/20 06:00 98.0 20 94 09/23/20 05:06 Trach Collar I&O- Last 24 Hours up to 6 AM 09/24/20 06:00 Intake Total 1620 ml Output Total 0 ml Balance 1620 ml Laboratory Data 24H LABS Laboratory Tests 2 09/24/20 08:17: Anion Gap 8, Glomerular Filtration Rate 9.0L, Calcium Level 9.2, Phosphorus Level 6.5H, Albumin 2.5L CBC/BMP Laboratory Tests 09/24/20 08:17 Current Medications Current Medications Medications (Trade) Dose Ordered Sig/Alicia Route PRN Reason Start Time Stop Time Status Last Admin Dose Admin Acetaminophen (Tylenol Tab) 650 mg Q6HP PRN PO PAIN / FEVER 06/13/20 04:45 06/16/20 21:00 Albuterol/ Ipratropium (Duoneb (Ipr 0.5mg/Alb 2.5mg)) 3 ml Q2H PRN NEB SHORTNESS OF BREATH 06/11/20 19:45 09/24/20 01:55 Albuterol/ Ipratropium (Duoneb (Ipr 0.5mg/Alb 2.5mg)) 3 ml Q6H PRN NEB SOB/WHEEZING 06/11/20 19:45 06/11/20 19:45 DC Albuterol/ Ipratropium (Duoneb (Ipr 0.5mg/Alb 2.5mg)) 3 ml RQ4H NEB 07/25/20 16:00 09/24/20 11:29 Albuterol/ Ipratropium (Duoneb (Ipr 0.5mg/Alb 2.5mg)) 3 ml RQ6H NEB 06/11/20 20:00 07/25/20 15:32 DC 07/25/20 13:55 Alprazolam (Xanax) 0.25 mg Q6H PRN PO ANXIETY 06/11/20 19:45 09/23/20 20:35 Amiodarone HCl (Pacerone, Cordarone) 200 mg DAILY PO 06/12/20 09:00 09/24/20 07:26 Amlodipine Besylate (Norvasc) 10 mg DAILY PO 08/29/20 09:00 09/24/20 07:26 Benzonatate (Tessalon Perles) 100 mg Q8HP PRN PO COUGH 06/13/20 01:15 06/13/20 12:18 Bisacodyl (Dulcolax Suppository) 10 mg DAILYPRN PRN NM CONSTIPATION 06/11/20 19:45 06/15/20 16:46 DC Bisacodyl (Dulcolax Tab) 5 mg DAILY PO 06/16/20 09:00 08/04/20 17:40 DC 08/04/20 10:46 Carbamide Peroxide (Debrox) 3 drop BID 06/12/20 21:00 06/16/20 09:01 DC 06/13/20 12:17 Darbepoetin Jairo (Aranesp (Dialysis Use)) 100 mcg HD IV 08/06/20 11:45 09/03/20 07:41 DC Darbepoetin Jairo (Aranesp (Dialysis Use)) 100 mcg HD IV 09/03/20 07:30 09/16/20 08:11 DC 09/10/20 09:01 Emollient Cream (Vanicream) to bilateral lo... DAILY TOP 08/05/20 09:00 09/09/20 11:17 DC 09/08/20 09:44 Emollient Cream (Vanicream) to bilateral lo... DAILY PRN TOP DRY SKIN 09/09/20 11:15 09/22/20 21:20 Guaifenesin (Robitussin) 5 ml Q6H PO 07/28/20 12:00 09/24/20 06:18 Heparin Sodium (Heparin (Flush)) 200 units ASDIRECTED PRN IV SEE LABEL COMMENTS 06/11/20 19:45 06/11/20 19:49 DC Heparin Sodium (Heparin (Flush)) 200 units ASDIRECTED PRN IV SEE LABEL COMMENTS 06/11/20 19:45 06/20/20 18:55 DC 06/20/20 06:42 Heparin Sodium (Heparin (Flush)) 200 units PICC IV 06/12/20 06:00 06/11/20 19:48 DC Heparin Sodium (Heparin (Flush)) 200 units PICC IV 06/12/20 06:00 06/20/20 18:55 DC 06/20/20 06:41 Heparin Sodium (Heparin) Please refer to ... ASDIRECTED XX 09/20/20 17:45 09/21/20 17:44 DC Heparin Sodium (Heparin) Please refer to ... ASDIRECTED XX 09/24/20 07:15 09/25/20 07:14 Heparin Sodium (Heparin) dose as per volume indica... ASDIRECTED PRN IV SEE LABEL COMMENTS 09/04/20 11:30 09/05/20 08:25 DC Heparin Sodium (Heparin) dose as per volume indica... ASDIRECTED PRN IV SEE LABEL COMMENTS 09/04/20 11:30 09/05/20 08:25 DC Heparin Sodium (Porcine) (Heparin) 5,000 units Q8H SQ 8/18/20 22:00 06/13/20 15:19 DC 06/13/20 12:17 Heparin Sodium (Porcine) (Heparin) 5,000 units Q8H SQ 07/25/20 22:00 09/24/20 06:18 Home Med (Med Rec Complete!) ASDIRECTED XX 06/12/20 10:15 06/12/20 10:08 DC Hydralazine HCl (Apresoline) 10 mg Q6H PRN PO SBP>170 06/11/20 19:45 08/06/20 11:39 DC 06/19/20 22:01 Iron (Venofer) 100 mg HD IV 07/11/20 11:30 08/27/20 13:16 DC Levetiracetam (Keppra) 500 mg DAILY PO 06/12/20 09:00 09/24/20 07:26 Lidocaine (Lidoderm Patch) 1 patch DAILY TD 06/12/20 09:00 09/09/20 11:57 DC 07/13/20 06:43 Lidocaine (Lidoderm Patch) 1 patch DAILY PRN TD BACK PAIN 09/09/20 12:00 09/09/20 14:17 DC Lidocaine HCl (Lidocaine 1% Sdv) 0.5 ml ASDIRECTED PRN SC SEE LABEL COMMENTS 09/04/20 11:30 09/05/20 08:26 DC Lidocaine HCl (Lidocaine 1% Sdv) 0.5 ml ASDIRECTED PRN SC SEE LABEL COMMENTS 09/04/20 11:30 09/05/20 08:26 DC Lidocaine HCl (Lidocaine 1% Sdv) 0.5 ml ASDIRECTED PRN SC SEE LABEL COMMENTS 09/07/20 07:30 09/08/20 07:29 DC Lidocaine HCl (Lidocaine 1% Sdv) 0.5 ml ASDIRECTED PRN SC SEE LABEL COMMENTS 09/07/20 07:30 09/08/20 07:29 DC Lidocaine HCl (Lidocaine 1% Sdv) 0.5 ml ASDIRECTED PRN SC SEE LABEL COMMENTS 09/21/20 08:00 09/21/20 17:44 DC Lidocaine HCl (Lidocaine 1% Sdv) 0.5 ml ASDIRECTED PRN SC SEE LABEL COMMENTS 09/24/20 07:15 09/25/20 07:14 Midodrine (Proamatine) 10 mg ASDIRECTED PO 06/11/20 20:30 08/31/20 21:12 DC 08/10/20 06:14 Midodrine (Proamatine) 10 mg HD PO 06/11/20 21:00 06/11/20 20:22 DC Miscellaneous (Unresolved Clarification Entry) SEE LABEL COMMENTS DAILY XX 06/24/20 09:00 06/25/20 12:54 DC Non-Formulary Medication ( See Comment Field Below ) CHECK TO SEE IF THE PATIENT... DAILY@0800 XX 06/27/20 08:00 09/01/20 18:17 DC 08/10/20 06:36 Non-Formulary Medication ( See Comment Field Below ) REMOVE LIDODERM PATCH DAILY@21 XX 06/11/20 21:00 09/09/20 11:57 DC 09/04/20 21:00 Non-Formulary Medication ( See Comment Field Below ) REMOVE LIDODERM PATCH DAILY@21 PRN XX BACK PAIN 09/09/20 12:00 09/09/20 14:17 DC Nystatin (Mycostatin Powder, Nystop) Apply to groin folds BIDP PRN TOP REDNESS/IRRITATION 08/27/20 01:00 Ondansetron HCl (Zofran) 4 mg Q6HP PRN PO NAUSEA OR VOMITING 07/08/20 12:45 08/22/20 20:36 Oxycodone HCl (Roxicodone, Oxyir) 10 mg Q4H PRN PO PAIN 06/11/20 19:45 09/23/20 20:37 Pantoprazole Sodium (Protonix) 40 mg DAILY PO 06/12/20 09:00 09/24/20 07:25 Polyethylene Glycol (Miralax) 1 pkt DAILY PRN PO CONSTIPATION 06/11/20 19:45 06/15/20 16:45 DC Polyethylene Glycol (Miralax) 1 pkt DAILYPRN PRN PO CONSTIPATION 08/04/20 17:45 Polymyxin/ Trimethoprim Sulfate (Polytrim Ophth Drops) 1 drop 6XD OU 08/03/20 15:00 08/10/20 12:00 DC 08/10/20 06:13 Pramipexole Dihydrochloride (Mirapex) 0.125 mg QHS PO 06/11/20 21:00 09/23/20 20:37 Senna/Docusate Sodium (Senokot S) 2 tab QHS PO 08/04/20 21:00 09/23/20 20:37 Sertraline HCl (Zoloft) 100 mg DAILY PO 06/12/20 09:00 09/24/20 07:26 Sevelamer Carbonate (Renvela) 2,400 mg WM PO 06/12/20 08:00 09/23/20 12:01 Sodium Chloride (Nacl 0.9%) 200 ml ASDIRECTED PRN IV SEE LABEL COMMENTS 09/03/20 07:30 09/05/20 08:26 DC Sodium Chloride (Nacl 0.9%) 200 ml ASDIRECTED PRN IV SEE LABEL COMMENTS 09/04/20 11:30 09/10/20 10:39 DC Sodium Chloride (Nacl 0.9%) 200 ml ASDIRECTED PRN IV SEE LABEL COMMENTS 09/07/20 07:30 09/10/20 10:39 DC Sodium Chloride (Nacl 0.9%) 200 ml ASDIRECTED PRN IV SEE LABEL COMMENTS 09/12/20 08:00 09/24/20 08:57 DC Sodium Chloride (Nacl 0.9%) 200 ml ASDIRECTED PRN IV SEE LABEL COMMENTS 09/24/20 07:15 09/25/20 07:14 Sodium Chloride (Saline Lock Flush) 10 ml ASDIRECTED PRN IV SEE LABEL COMMENTS 06/11/20 19:45 06/11/20 19:50 DC Sodium Chloride (Saline Lock Flush) 10 ml ASDIRECTED PRN IV SEE LABEL COMMENTS 06/11/20 19:45 06/20/20 18:55 DC 06/20/20 06:41 Sodium Chloride (Saline Lock Flush) 10 ml PICC IV 06/12/20 06:00 06/11/20 19:49 DC Sodium Chloride (Saline Lock Flush) 10 ml PICC IV 06/12/20 06:00 06/20/20 18:55 DC 06/20/20 06:41 Sucroferric Oxyhydroxide (Velphoro) 500 mg WM PO 07/11/20 12:30 09/21/20 12:33 DC 09/15/20 18:12 Allergies Coded Allergies: moxifloxacin (Verified Allergy, Intermediate, RASH, 12/25/19) codeine (Verified Allergy, Unknown, 12/25/19) valsartan (Verified Allergy, Unknown, 12/25/19) Claudette Padron MD Sep 24, 2020 13:46
[2020-09-24] MEDS: SENOKOT S TAB PO SCH (21:09)
[2020-09-24] MEDS: ALPRAZolam 0.25 MG TAB PO PRN (21:09)
[2020-09-24] MEDS: PRAMIPEXOLE (MIRAPEX) 0.125 MG TAB PO SCH (21:09)
[2020-09-24] MEDS: oxyCODONE 5MG TAB PO PRN (21:10)
[2020-09-25] MEDS: IPRATROPIUM 0.5MG/ALBUTEROL 2.5MG INH SOL UD 3ML (DUONEB) NEB PRN ×3 (01:39→17:41)
[2020-09-25] MEDS: IPRATROPIUM 0.5MG/ALBUTEROL 2.5MG INH SOL UD 3ML (DUONEB) NEB SCH ×6 (03:27→23:38)
[2020-09-25] MEDS: guaiFENesin SYRUP 200 MG/10 ML UDC PO SCH ×3 (05:18→18:09)
[2020-09-25] MEDS: HEPARIN SOD (PORCINE) 5000UNITS/ML 1ML VIAL/SYRINGE SQ SCH ×3 (05:18→21:19)
[2020-09-25 06:00] VITALS: BP 114/59
[2020-09-25] MEDS: SERTRALINE 100 MG TAB PO SCH (08:37)
[2020-09-25] MEDS: AMIODARONE 200 MG TAB (PACERONE) PO SCH (08:37)
[2020-09-25] MEDS: PANTOPRAZOLE 40MG TAB (PROTONIX) PO SCH (08:37)
[2020-09-25] MEDS: levETIRAcetam 250MG TABLET (KEPPRA) PO SCH (08:37)
[2020-09-25] MEDS: (RENVELA) SEVELAMER **CARBONate** 800 MG TAB PO SCH ×3 (08:38→18:09)
--- NOTE | 2020-09-25 14:15 | IPN ---
PROGRESS NOTE DATE: 09/05/2020 07:18:00 am SUBJECTIVE: Mr. Richard is seen this morning during hemodialysis. He is resting comfortably and remains on a trach collar. No new issues have been reported. PHYSICAL EXAMINATION: VITALS: Temperature 97.8 degrees Fahrenheit, heart rate 70 per minute, respiratory rate 20 per minute, blood pressure 142/64 mmHg and oxygen saturation 95% on trach collar. HEAD: Atraumatic. NECK: Tracheostomy is in place. Neck veins difficult to be assessed. HEART: Heart sounds are regular. LUNGS: Moderate bilateral air entry. ABDOMEN: Obese and nontender. Bowel sounds are present. EXTREMITIES: Without any cyanosis or clubbing. His feet are in protective foam boots. NEUROLOGIC: He is at his baseline mentation and currently resting. PROBLEMS: 1. End-stage renal disease: Patient is currently being dialyzed and tolerating his dialysis treatment very well. We are planning to remove 2.5 liters of fluid today. 2. Hypertension: Blood pressure is very well controlled on current medications and continue with the same. 3. Anemia: At present, his anemia is stable and does not need any intervention. His Aranesp has been temporarily stopped. 4. Respiratory failure; status post tracheostomy: His respiratory failure is related to obstructive sleep apnea and obesity associated hypoventilation with CO2 retention. His volume status remains well compensated with hemodialysis.
[2020-09-25] MEDS: SENOKOT S TAB PO SCH (21:19)
[2020-09-25] MEDS: PRAMIPEXOLE (MIRAPEX) 0.125 MG TAB PO SCH (21:19)
[2020-09-25] MEDS: ALPRAZolam 0.25 MG TAB PO PRN (21:19)
[2020-09-25] MEDS: oxyCODONE 5MG TAB PO PRN (21:20)
[2020-09-26] MEDS: guaiFENesin SYRUP 200 MG/10 ML UDC PO SCH ×4 (00:08→18:06)
[2020-09-26] MEDS: IPRATROPIUM 0.5MG/ALBUTEROL 2.5MG INH SOL UD 3ML (DUONEB) NEB PRN ×4 (01:46→17:55)
[2020-09-26] MEDS: IPRATROPIUM 0.5MG/ALBUTEROL 2.5MG INH SOL UD 3ML (DUONEB) NEB SCH ×6 (04:06→23:15)
[2020-09-26 06:00] VITALS: BP 142/57
[2020-09-26] MEDS: AMIODARONE 200 MG TAB (PACERONE) PO SCH (06:37)
[2020-09-26] MEDS: PANTOPRAZOLE 40MG TAB (PROTONIX) PO SCH (06:37)
[2020-09-26] MEDS: levETIRAcetam 250MG TABLET (KEPPRA) PO SCH (06:38)
[2020-09-26] MEDS: SERTRALINE 100 MG TAB PO SCH (06:38)
[2020-09-26] MEDS: HEPARIN SOD (PORCINE) 5000UNITS/ML 1ML VIAL/SYRINGE SQ SCH ×3 (06:38→21:56)
[2020-09-26] MEDS ORDERED: LIDOCAINE 1% SDV 5ML VIAL SC PRN (07:15)
[2020-09-26] MEDS ORDERED: SODIUM CHLORIDE 0.9% 1000ML IV PRN (07:15)
[2020-09-26] MEDS: (RENVELA) SEVELAMER **CARBONate** 800 MG TAB PO SCH ×3 (08:00→18:06)
[2020-09-26] MEDS: ALPRAZolam 0.25 MG TAB PO PRN ×2 (11:10→21:55)
[2020-09-26 13:12] LABS: BASO # 0.1 10^3/uL (0.0-0.2); BASO % 0.8 % (0.0-1.0); EOS # 0.4 10^3/uL (0.0-0.5); EOS % 6.7 % (0.0-3.0); HEMATOCRIT 36.9 % (42.0-52.0); HEMOGLOBIN 11.1 g/dl (13.5-17.5); LYMPH # 1.5 10^3/uL (1.5-5.0); LYMPH % 25.3 % (24.0-44.0); MEAN CORPUSCULAR HEMOGLOBIN 31.3 pg (27.0-33.0); MEAN CORPUSCULAR HGB CONC 30.1 g/dl (32.0-36.5); MEAN CORPUSCULAR VOLUME 103.9 fl (80.0-96.0); MONO # 0.3 10^3/uL (0.0-0.8); MONO % 4.9 % (0.0-5.0); NEUTROPHILS # 3.7 10^3/uL (1.5-8.5); NEUTROPHILS % 62.1 % (36.0-66.0); PLATELET COUNT, AUTOMATED 168 10^3/uL (150-450); RED BLOOD COUNT 3.55 10^6/uL (4.30-6.10)
[2020-09-26 13:28] LABS: ALBUMIN 2.5 GM/DL (3.2-5.2); CALCIUM LEVEL 9.4 MG/DL (8.5-10.1); CREATININE FOR GFR 6.16 MG/DL (0.70-1.30); GLOMERULAR FILTRATION RATE 10.4 (>60); PHOSPHORUS LEVEL 5.9 MG/DL (2.5-4.9); POTASSIUM SERUM 5.4 MEQ/L (3.5-5.1)
--- NOTE | 2020-09-26 13:43 | IPNPDOC ---
Date Seen The patient was seen on 09/26/20. Progress Note SUBJECTIVE: I was made aware that evening of 09/25/20 patient had sent a text to [facility] stating "Do not say a word of what I told you, I'm pretty much going to commit suicide legally." In conversation the patient was expressing his frustration with not being able to be placed in skilled facility in the local area. He had a social work come into his room on 10/13/2020 and tell him that [facility] were starting to [place] out [place] state for placement. Currently on medication for depression and anxiety combined. The patient states that he doesn't understand why they can't take him back to his previous place of residence locally, he is complaining about going out of the area and states far from family. He states that this will make it harder for people to come see him due to Covid and he is also fearful to go into a longterm right now because of the fear of becoming Covid positive. He states he has thought about ending his life over time I stopping dialysis, stopping eating. He has never tried to do this. He states he is becoming more angry and that he just feels like kicking people out of his room, becoming easily agitated with people soon after encountering them. I contacted psychiatry who will see him later today. A 1:1 nurse was ordered and continuous pulse oximetry. OBJECTIVE: PHYSICAL EXAMINATION: VITAL SIGNS: Please see below. GENERAL: resting in bed, NAD HEENT: PERRLA, EOMI CARDIOVASCULAR: Normal S1, S2. No M/R/G RESPIRATORY: trach in place, lungs CTAB, no wheeze, no rales ABDOMINAL: obese abdomen, soft, non tender EXTREMITIES: chronic zhen stasis dermatitis, heel float boots NEUROLOGICAL: AAO x 3, no focal neuro deficit PSYCHOLOGICAL: calm, cooperative but at times tearful ASSESSMENT: 50 year old male with multiple comorbidities including ESRD on hemodialysis, tracheal stenosis pending placement to facility, going for trach replacement today. PLAN: #Suicidal ideations, increased depression -No plan, no prior attempt -Feeling of increased depression, hopelessness, being more tearful -Hx of depression, anxiety which he says is uncontrolled. He has been on the same medication regimen for the past 8 years according to patient -1:1, continuous pulse oximetry (in the event he pulls his trach out) -Psych consulted. #Chronic respiratory failure status post tracheostomy, tracheal stenosis -Trach replacement/exchange 09/11/20 -C/w resp treatments, trach care #ESRD on hemodialysis -C/w Wednesday, , Wednesday HD schedule #Hypotension. -C/w midodrine on dialysis days. #Anemia. -Stable, monitor and transfuse if indicated. -hemoglobin level is optimal -Was receiving Aranesp 100 mcg once a week with dialysis until recently #Chronically bedridden. -Awaiting placement to longterm. #Chronic kidney disease, mineral bone disease -Renvela and Velphoro dose #DVT px -Teds, scds.Heparin DISPOSITION: Psychiatry to evaluate tonight. Remains ALC status. Placement has been difficult to obtain with him needing hemodialysis and suctioning with trach. VS, I&O, 24H, Fishbone Vital Signs/I&O Vital Signs Date Time Temp Pulse Resp B/P (MAP) Pulse Ox O2 Delivery O2 Flow Rate FiO2 09/26/20 09:00 5.0 28 09/26/20 06:37 70 142/57 09/26/20 06:00 96.9 19 94 Trach Collar I&O- Last 24 Hours up to 6 AM 09/26/20 06:00 Intake Total 1665 ml Output Total 0 ml Balance 1665 ml Laboratory Data 24H LABS Laboratory Tests 2 09/26/20 12:43: Immature Granulocyte % (Auto) 0.2, Neutrophils (%) (Auto) 62.1, Lymphocytes (%) (Auto) 25.3, Monocytes (%) (Auto) 4.9, Eosinophils (%) (Auto) 6.7H, Basophils (%) (Auto) 0.8, Neutrophils # (Auto) 3.7, Lymphocytes # (Auto) 1.5, Monocytes # (Auto) 0.3, Eosinophils # (Auto) 0.4, Basophils # (Auto) 0.1, Nucleated Red Blood Cells % (auto) 0.0, Anion Gap 5L, Glomerular Filtration Rate 10.4L, Calcium Level 9.4, Phosphorus Level 5.9H, Albumin 2.5L CBC/BMP Laboratory Tests 09/26/20 12:43 Current Medications Current Medications Medications (Trade) Dose Ordered Sig/Alicia Route PRN Reason Start Time Stop Time Status Last Admin Dose Admin Acetaminophen (Tylenol Tab) 650 mg Q6HP PRN PO PAIN / FEVER 06/13/20 04:45 06/16/20 21:00 Albuterol/ Ipratropium (Duoneb (Ipr 0.5mg/Alb 2.5mg)) 3 ml Q2H PRN NEB SHORTNESS OF BREATH 06/11/20 19:45 09/26/20 09:40 Albuterol/ Ipratropium (Duoneb (Ipr 0.5mg/Alb 2.5mg)) 3 ml Q6H PRN NEB SOB/WHEEZING 06/11/20 19:45 06/11/20 19:45 DC Albuterol/ Ipratropium (Duoneb (Ipr 0.5mg/Alb 2.5mg)) 3 ml RQ4H NEB 07/25/20 16:00 09/26/20 12:09 Albuterol/ Ipratropium (Duoneb (Ipr 0.5mg/Alb 2.5mg)) 3 ml RQ6H NEB 06/11/20 20:00 07/25/20 15:32 DC 07/25/20 13:55 Alprazolam (Xanax) 0.25 mg Q6H PRN PO ANXIETY 06/11/20 19:45 09/26/20 11:10 Amiodarone HCl (Pacerone, Cordarone) 200 mg DAILY PO 06/12/20 09:00 09/26/20 06:37 Amlodipine Besylate (Norvasc) 10 mg DAILY PO 08/29/20 09:00 09/26/20 06:37 Benzonatate (Tessalon Perles) 100 mg Q8HP PRN PO COUGH 06/13/20 01:15 06/13/20 12:18 Bisacodyl (Dulcolax Suppository) 10 mg DAILYPRN PRN DE CONSTIPATION 06/11/20 19:45 06/15/20 16:46 DC Bisacodyl (Dulcolax Tab) 5 mg DAILY PO 06/16/20 09:00 08/04/20 17:40 DC 08/04/20 10:46 Carbamide Peroxide (Debrox) 3 drop BID 06/12/20 21:00 06/16/20 09:01 DC 06/13/20 12:17 Darbepoetin Jairo (Aranesp (Dialysis Use)) 100 mcg HD IV 08/06/20 11:45 09/03/20 07:41 DC Darbepoetin Jairo (Aranesp (Dialysis Use)) 100 mcg HD IV 09/03/20 07:30 09/16/20 08:11 DC 09/10/20 09:01 Emollient Cream (Vanicream) to bilateral lo... DAILY TOP 08/05/20 09:00 09/09/20 11:17 DC 09/08/20 09:44 Emollient Cream (Vanicream) to bilateral lo... DAILY PRN TOP DRY SKIN 09/09/20 11:15 09/22/20 21:20 Guaifenesin (Robitussin) 5 ml Q6H PO 07/28/20 12:00 09/26/20 12:09 Heparin Sodium (Heparin (Flush)) 200 units ASDIRECTED PRN IV SEE LABEL COMMENTS 06/11/20 19:45 06/11/20 19:49 DC Heparin Sodium (Heparin (Flush)) 200 units ASDIRECTED PRN IV SEE LABEL COMMENTS 06/11/20 19:45 06/20/20 18:55 DC 06/20/20 06:42 Heparin Sodium (Heparin (Flush)) 200 units PICC IV 06/12/20 06:00 06/11/20 19:48 DC Heparin Sodium (Heparin (Flush)) 200 units PICC IV 06/12/20 06:00 06/20/20 18:55 DC 06/20/20 06:41 Heparin Sodium (Heparin) 9,000 units ASDIRECTED XX 09/26/20 13:04 09/27/20 07:14 Heparin Sodium (Heparin) Please refer to ... ASDIRECTED XX 09/20/20 17:45 09/21/20 17:44 DC Heparin Sodium (Heparin) Please refer to ... ASDIRECTED XX 09/24/20 07:15 09/25/20 07:14 DC Heparin Sodium (Heparin) Please refer to ... ASDIRECTED XX 09/26/20 07:15 09/26/20 13:04 DC Heparin Sodium (Heparin) dose as per volume indica... ASDIRECTED PRN IV SEE LABEL COMMENTS 09/04/20 11:30 09/05/20 08:25 DC Heparin Sodium (Heparin) dose as per volume indica... ASDIRECTED PRN IV SEE LABEL COMMENTS 09/04/20 11:30 09/05/20 08:25 DC Heparin Sodium (Porcine) (Heparin) 5,000 units Q8H SQ 06/11/20 22:00 06/13/20 15:19 DC 06/13/20 12:17 Heparin Sodium (Porcine) (Heparin) 5,000 units Q8H SQ 07/25/20 22:00 09/26/20 06:38 Home Med (Med Rec Complete!) ASDIRECTED XX 06/12/20 10:15 06/12/20 10:08 DC Hydralazine HCl (Apresoline) 10 mg Q6H PRN PO SBP>170 06/11/20 19:45 08/06/20 11:39 DC 06/19/20 22:01 Iron (Venofer) 100 mg HD IV 07/11/20 11:30 08/27/20 13:16 DC Levetiracetam (Keppra) 500 mg DAILY PO 06/12/20 09:00 09/26/20 06:38 Lidocaine (Lidoderm Patch) 1 patch DAILY TD 06/12/20 09:00 09/09/20 11:57 DC 07/13/20 06:43 Lidocaine (Lidoderm Patch) 1 patch DAILY PRN TD BACK PAIN 09/09/20 12:00 09/09/20 14:17 DC Lidocaine HCl (Lidocaine 1% Sdv) 0.5 ml ASDIRECTED PRN SC SEE LABEL COMMENTS 09/04/20 11:30 09/05/20 08:26 DC Lidocaine HCl (Lidocaine 1% Sdv) 0.5 ml ASDIRECTED PRN SC SEE LABEL COMMENTS 09/04/20 11:30 09/05/20 08:26 DC Lidocaine HCl (Lidocaine 1% Sdv) 0.5 ml ASDIRECTED PRN SC SEE LABEL COMMENTS 09/07/20 07:30 09/08/20 07:29 DC Lidocaine HCl (Lidocaine 1% Sdv) 0.5 ml ASDIRECTED PRN SC SEE LABEL COMMENTS 09/07/20 07:30 09/08/20 07:29 DC Lidocaine HCl (Lidocaine 1% Sdv) 0.5 ml ASDIRECTED PRN SC SEE LABEL COMMENTS 09/21/20 08:00 09/21/20 17:44 DC Lidocaine HCl (Lidocaine 1% Sdv) 0.5 ml ASDIRECTED PRN SC SEE LABEL COMMENTS 09/24/20 07:15 09/25/20 07:14 DC Lidocaine HCl (Lidocaine 1% Sdv) 0.5 ml ASDIRECTED PRN SC SEE LABEL COMMENTS 09/26/20 07:15 09/27/20 07:14 Midodrine (Proamatine) 10 mg ASDIRECTED PO 06/11/20 20:30 08/31/20 21:12 DC 08/10/20 06:14 Midodrine (Proamatine) 10 mg HD PO 06/11/20 21:00 06/11/20 20:22 DC Miscellaneous (Unresolved Clarification Entry) SEE LABEL COMMENTS DAILY XX 06/24/20 09:00 06/25/20 12:54 DC Non-Formulary Medication ( See Comment Field Below ) CHECK TO SEE IF THE PATIENT... DAILY@0800 XX 06/27/20 08:00 09/01/20 18:17 DC 08/10/20 06:36 Non-Formulary Medication ( See Comment Field Below ) REMOVE LIDODERM PATCH DAILY@21 XX 06/11/20 21:00 09/09/20 11:57 DC 09/04/20 21:00 Non-Formulary Medication ( See Comment Field Below ) REMOVE LIDODERM PATCH DAILY@21 PRN XX BACK PAIN 09/09/20 12:00 09/09/20 14:17 DC Nystatin (Mycostatin Powder, Nystop) Apply to groin folds BIDP PRN TOP REDNESS/IRRITATION 08/27/20 01:00 09/25/20 01:24 DC Ondansetron HCl (Zofran) 4 mg Q6HP PRN PO NAUSEA OR VOMITING 07/08/20 12:45 08/22/20 20:36 Oxycodone HCl (Roxicodone, Oxyir) 10 mg Q4H PRN PO PAIN 06/11/20 19:45 09/25/20 21:20 Pantoprazole Sodium (Protonix) 40 mg DAILY PO 06/12/20 09:00 09/26/20 06:37 Polyethylene Glycol (Miralax) 1 pkt DAILY PRN PO CONSTIPATION 06/11/20 19:45 06/15/20 16:45 DC Polyethylene Glycol (Miralax) 1 pkt DAILYPRN PRN PO CONSTIPATION 08/04/20 17:45 Polymyxin/ Trimethoprim Sulfate (Polytrim Ophth Drops) 1 drop 6XD OU 08/03/20 15:00 08/10/20 12:00 DC 08/10/20 06:13 Pramipexole Dihydrochloride (Mirapex) 0.125 mg QHS PO 06/11/20 21:00 09/25/20 21:19 Senna/Docusate Sodium (Senokot S) 2 tab QHS PO 08/04/20 21:00 09/25/20 21:19 Sertraline HCl (Zoloft) 100 mg DAILY PO 06/12/20 09:00 09/26/20 06:38 Sevelamer Carbonate (Renvela) 2,400 mg WM PO 06/12/20 08:00 09/25/20 18:09 Sodium Chloride (Nacl 0.9%) 200 ml ASDIRECTED PRN IV SEE LABEL COMMENTS 09/03/20 07:30 09/05/20 08:26 DC Sodium Chloride (Nacl 0.9%) 200 ml ASDIRECTED PRN IV SEE LABEL COMMENTS 09/04/20 11:30 09/10/20 10:39 DC Sodium Chloride (Nacl 0.9%) 200 ml ASDIRECTED PRN IV SEE LABEL COMMENTS 09/07/20 07:30 09/10/20 10:39 DC Sodium Chloride (Nacl 0.9%) 200 ml ASDIRECTED PRN IV SEE LABEL COMMENTS 09/12/20 08:00 09/24/20 08:57 DC Sodium Chloride (Nacl 0.9%) 200 ml ASDIRECTED PRN IV SEE LABEL COMMENTS 09/24/20 07:15 09/25/20 07:14 DC Sodium Chloride (Nacl 0.9%) 200 ml ASDIRECTED PRN IV SEE LABEL COMMENTS 09/26/20 07:15 09/27/20 07:14 Sodium Chloride (Saline Lock Flush) 10 ml ASDIRECTED PRN IV SEE LABEL COMMENTS 06/11/20 19:45 06/11/20 19:50 DC Sodium Chloride (Saline Lock Flush) 10 ml ASDIRECTED PRN IV SEE LABEL COMMENTS 06/11/20 19:45 06/20/20 18:55 DC 06/20/20 06:41 Sodium Chloride (Saline Lock Flush) 10 ml PICC IV 06/12/20 06:00 06/11/20 19:49 DC Sodium Chloride (Saline Lock Flush) 10 ml PICC IV 06/12/20 06:00 06/20/20 18:55 DC 06/20/20 06:41 Sucroferric Oxyhydroxide (Velphoro) 500 mg WM PO 07/11/20 12:30 09/21/20 12:33 DC 09/15/20 18:12 Allergies Coded Allergies: moxifloxacin (Verified Allergy, Intermediate, RASH, 12/25/19) codeine (Verified Allergy, Unknown, 12/25/19) valsartan (Verified Allergy, Unknown, 12/25/19) Claudette Padron MD Sep 26, 2020 13:43
--- NOTE | 2020-09-26 13:48 | IPN ---
NEPHROLOGY PROGRESS NOTE DATE: 09/26/2020 SUBJECTIVE: The patient was seen and examined at the bedside today morning on his regular day of dialysis. The patient is very depressed and tearful today. He is frustrated that the local [facility] is not accepting him and he is being asked to leave the [place] area to go to a penitentiary that has a dialysis facility available. He has his family members and friends in [place] and he does not want to leave. He was also thinking about stopping hemodialysis if he is asked to leave the hospital. Otherwise the patient is afebrile and hemodynamically stable. OBJECTIVE: VITAL SIGNS: Temperature is 96.9 degrees Fahrenheit, blood pressure 142/57, pulse is 70, respiratory rate of 19, saturating 94% on trach collar. PHYSICAL EXAMINATION: HEAD AND NECK: Pupils are equally round and reactive to light. Mucous membranes are moist. Neck is supple. He has a trach collar. CARDIOVASCULAR: S1, S2, regular rate. EXTREMITIES: No edema of the bilateral lower extremities. RESPIRATORY: Chest is clear to auscultation bilaterally. Bilaterally currently no rales or rhonchi. ABDOMEN: Soft, obese, positive bowel sounds. No organomegaly was noted. MUSCULOSKELETAL: He is wearing a waffle boot on the bilateral lower extremities. Decreased range of movement of the lower extremities because of being chronically bed ridden. DEALER ACCOUNT MANAGER: No focal deficits. Power is 5/5 in bilateral upper extremities. LAB REVIEW: CBC is pending today. BMP is also pending. Latest BMP is from September 24 with a potassium of 5.1 and creatinine of 6.9. CURRENT INPATIENT MEDICATIONS: The patient's medications were all reviewed by myself. No significant change in the medications today as compared with last evaluation. ASSESSMENT AND PLAN: 1. End-stage renal disease - today the patient is being dialyzed according to his regular schedule. Ultrafiltration goal is 3 liters as tolerated by his blood pressure. 2. Hypertension - blood pressure is controlled with the current dose of Amlodipine. 3. Anemia and end-stage renal disease - hemoglobin level is 11.1 on the latest labs. BRIAN is on hold at this time. 4. Depression - continue current dose of Zoloft, 100 mg p.o. daily. 5. Chronic kidney disease, mineral bone disease - continue current dose of Renvela with meals. I am not increasing the dose because the patient is hardly taking it once a day.
--- NOTE | 2020-09-26 15:38 | IPN ---
PROGRESS NOTE DATE: 09/21/2020 07:18:00 am SUBJECTIVE: The patient was seen and examined at the bedside today morning during hemodialysis procedure. He is tolerating the hemodialysis procedure well. He denies any active complaints at this time. OBJECTIVE: VITAL SIGNS: Temperature is 98.6 degrees Fahrenheit, blood pressure 116/57, pulse of 70, respiratory rate of 16, saturating 93% on trach collar with FiO2 of 28%. Intake and output there is no urine output recorded. Weight on the bed scale is not available. PHYSICAL EXAMINATION: GENERAL APPEARANCE: The patient is awake, alert, oriented x3, morbidly obese, laying in bed in no apparent distress. HEAD AND NECK: Pupils are equally round and reactive to light. Neck is supple. He has a trach collar. CARDIOVASCULAR: S1, S2, regular rate. EXTREMITIES: No edema of the bilateral lower extremities. RESPIRATORY: Chest is clear to auscultation bilaterally. Bilaterally currently no rales or rhonchi. ABDOMEN: Soft, obese, positive bowel sounds, nontender. MUSCULOSKELETAL: No clubbing, no cyanosis. Decreased range of motion of the lower extremities because of the chronically being bedridden. SECURITY ASSISTANT: No focal deficits in bilateral upper extremities. LAB REVIEW: CBC showed a WBC 6.4, hemoglobin 11.1, platelets are 146. BMP showed sodium 137, potassium 5.4, chloride 107, bicarbonate 24, BUN 30, creatinine 5.9. CURRENT INPATIENT MEDICATIONS: The patient's medications were all reviewed by myself. There is no significant change in the medications today as compared with the last time. However, looking at his medications, it looks like the patient is refusing the Renvela and Velphoro, and he has not received these medications in the last few days. ASSESSMENT AND PLAN: 1. End-stage renal disease - The patient is being dialyzed according to his regular Wednesday, , Wednesday schedule. Ultrafiltration goal will be 3 liters as tolerated by his blood pressure. 2. Anemia and end-stage renal disease - hemoglobin level is stable with the current dose of Aranesp. Continue current regimen. 3. Chronic kidney disease mineral bone disease - The patient is noncompliant with the phosphorous binders. I advised the patient to start taking his binders that he has been refusing. His phosphorous level is very high. I have stopped Velphoro because he states he does not like the taste. However I advised him to continue taking the Renvela 2.4 grams with meals. 4. Hypertension - blood pressure is controlled with current dose of Amlodipine. Volume status is optimized with dialysis. 5. Hyperkalemia - This patient being dialyzed with a 2K bath. Potassium will improve after dialysis. MTDD
[2020-09-26] MEDS: SENOKOT S TAB PO SCH (21:56)
[2020-09-26] MEDS: PRAMIPEXOLE (MIRAPEX) 0.125 MG TAB PO SCH (21:56)
[2020-09-26] MEDS: oxyCODONE 5MG TAB PO PRN (21:57)
[2020-09-27] MEDS: guaiFENesin SYRUP 200 MG/10 ML UDC PO SCH ×4 (00:54→18:10)
[2020-09-27] MEDS: IPRATROPIUM 0.5MG/ALBUTEROL 2.5MG INH SOL UD 3ML (DUONEB) NEB PRN ×3 (01:39→13:49)
[2020-09-27] MEDS: IPRATROPIUM 0.5MG/ALBUTEROL 2.5MG INH SOL UD 3ML (DUONEB) NEB SCH ×6 (03:33→23:23)
[2020-09-27] MEDS: ALPRAZolam 0.25 MG TAB PO PRN ×3 (04:44→21:31)
[2020-09-27] MEDS: oxyCODONE 5MG TAB PO PRN ×3 (04:45→21:32)
[2020-09-27] MEDS: HEPARIN SOD (PORCINE) 5000UNITS/ML 1ML VIAL/SYRINGE SQ SCH ×3 (05:40→21:31)
[2020-09-27 06:00] VITALS: BP 147/67
[2020-09-27] MEDS: SERTRALINE 100 MG TAB PO SCH (09:42)
[2020-09-27] MEDS: levETIRAcetam 250MG TABLET (KEPPRA) PO SCH (09:42)
[2020-09-27] MEDS: AMIODARONE 200 MG TAB (PACERONE) PO SCH (09:43)
[2020-09-27] MEDS: (RENVELA) SEVELAMER **CARBONate** 800 MG TAB PO SCH ×3 (09:43→18:10)
[2020-09-27] MEDS: PANTOPRAZOLE 40MG TAB (PROTONIX) PO SCH (09:43)
--- NOTE | 2020-09-27 09:47 | MHCRPDOC ---
[facility] Consultation Consultation DATE OF CONSULTATION: 09/27/20 CONSULTATION REQUESTED BY: Internal medicine REASON FOR CONSULTATION: Suicidal thoughts. RELEVANT HISTORY: 50-year-old man with a history of depression anxiety presents with respiratory problems he is a near total care patient who requires a ventilator had texted a friend that he was feeling suicidal and the text message to a friend who had reported that the medical team the patient reports that he was feeling frustrated at his chronic medical problems, the interview is difficult as he cannot speak and has to answer yes or no questions due to his tracheostomy. The patient reports having a history of psychiatry but reports feeling "sick of being sick" PAST PSYCHIATRIC HISTORY: Admission to inpatient psych after an overdose 10 years ago, on sertraline 100 mg daily PAST MEDICAL HISTORY: Significant COPD FAMILY HISTORY: Unclear PERSONAL AND SOCIAL HISTORY: Resides in: [place] Marital Status: S Single Children: Unknown Employment: Unemployed, disabled SUBSTANCE ABUSE HISTORY: Smoking: Significant tobacco addiction LEGAL HISTORY: None elicited. MENTAL STATUS EXAMINATION: Patient is a 50-year old male, who is man. Speech is disabled. Language skills are impaired. Thought processes including: Linear. Thought content: Reasonable. Abstract reasoning, and computation: Appear intact. Description of associations: Appear intact. Description of abnormal or psychotic thoughts: Denies suicidal and homicidal id eation. Judgment: Fair. Insight: Fair. Orientation to person place and time. Recent and remote memory: Intact. Attention span and concentration: Intact. Language: Impaired due to tracheostomy. Fund of knowledge: Intact. Mood: "Okay". Affect: Mildly dysthymic. DIAGNOSIS: 1. Unspecified depression. PLAN: 1. Recommend increasing sertraline to 150 mg daily. 2. The patient is low risk for completed suicide, denies any ideation at this time, appears to be more frustrated, he has a distant history of an attempt however this appears to be more situational in nature related to his medical problems. He has little access to means and is unable to really harm himself as he requires total care. He will be unlikely to require a sitter, does not meet criteria for inpatient psychiatry due to needing total care likely will need treatment on the medical unit, follow-up in a few days to week medicine to recall the psychiatrist to follow-up Vital Signs Vital Signs Date Time Temp Pulse Resp B/P (MAP) Pulse Ox O2 Delivery O2 Flow Rate FiO2 09/27/20 09:44 65 146/67 09/27/20 06:00 96.9 18 98 Room Air 09/26/20 21:00 5.0 28 Laboratory Data 24H Labs Laboratory Tests 2 09/26/20 12:43: Immature Granulocyte % (Auto) 0.2, Neutrophils (%) (Auto) 62.1, Lymphocytes (%) (Auto) 25.3, Monocytes (%) (Auto) 4.9, Eosinophils (%) (Auto) 6.7H, Basophils (%) (Auto) 0.8, Neutrophils # (Auto) 3.7, Lymphocytes # (Auto) 1.5, Monocytes # (Auto) 0.3, Eosinophils # (Auto) 0.4, Basophils # (Auto) 0.1, Nucleated Red Blood Cells % (auto) 0.0, Anion Gap 5L, Glomerular Filtration Rate 10.4L, Calcium Level 9.4, Phosphorus Level 5.9H, Albumin 2.5L Home Medications Current Medications Current Medications Medications (Trade) Dose Ordered Sig/Alicia Route PRN Reason Start Time Stop Time Status Last Admin Dose Admin Acetaminophen (Tylenol Tab) 650 mg Q6HP PRN PO PAIN / FEVER 06/13/20 04:45 06/16/20 21:00 Albuterol/ Ipratropium (Duoneb (Ipr 0.5mg/Alb 2.5mg)) 3 ml Q2H PRN NEB SHORTNESS OF BREATH 06/11/20 19:45 09/27/20 05:40 Albuterol/ Ipratropium (Duoneb (Ipr 0.5mg/Alb 2.5mg)) 3 ml Q6H PRN NEB SOB/WHEEZING 06/11/20 19:45 06/11/20 19:45 DC Albuterol/ Ipratropium (Duoneb (Ipr 0.5mg/Alb 2.5mg)) 3 ml RQ4H NEB 07/25/20 16:00 09/27/20 07:05 Albuterol/ Ipratropium (Duoneb (Ipr 0.5mg/Alb 2.5mg)) 3 ml RQ6H NEB 06/11/20 20:00 07/25/20 15:32 DC 07/25/20 13:55 Alprazolam (Xanax) 0.25 mg Q6H PRN PO ANXIETY 06/11/20 19:45 09/27/20 04:44 Amiodarone HCl (Pacerone, Cordarone) 200 mg DAILY PO 06/12/20 09:00 09/27/20 09:43 Amlodipine Besylate (Norvasc) 10 mg DAILY PO 08/29/20 09:00 09/27/20 09:44 Benzonatate (Tessalon Perles) 100 mg Q8HP PRN PO COUGH 06/13/20 01:15 06/13/20 12:18 Bisacodyl (Dulcolax Suppository) 10 mg DAILYPRN PRN [place] CONSTIPATION 06/11/20 19:45 06/15/20 16:46 DC Bisacodyl (Dulcolax Tab) 5 mg DAILY PO 06/16/20 09:00 08/04/20 17:40 DC 08/04/20 10:46 Carbamide Peroxide (Debrox) 3 drop BID 06/12/20 21:00 06/16/20 09:01 DC 06/13/20 12:17 Darbepoetin Jairo (Aranesp (Dialysis Use)) 100 mcg HD IV 08/06/20 11:45 09/03/20 07:41 DC Darbepoetin Jairo (Aranesp (Dialysis Use)) 100 mcg HD IV 09/03/20 07:30 09/16/20 08:11 DC 09/10/20 09:01 Emollient Cream (Vanicream) to bilateral lo... DAILY TOP 08/05/20 09:00 09/09/20 11:17 DC 09/08/20 09:44 Emollient Cream (Vanicream) to bilateral lo... DAILY PRN TOP DRY SKIN 09/09/20 11:15 09/22/20 21:20 Guaifenesin (Robitussin) 5 ml Q6H PO 07/28/20 12:00 09/27/20 05:40 Heparin Sodium (Heparin (Flush)) 200 units ASDIRECTED PRN IV SEE LABEL COMMENTS 06/11/20 19:45 06/11/20 19:49 DC Heparin Sodium (Heparin (Flush)) 200 units ASDIRECTED PRN IV SEE LABEL COMMENTS 06/11/20 19:45 06/20/20 18:55 DC 06/20/20 06:42 Heparin Sodium (Heparin (Flush)) 200 units PICC IV 06/12/20 06:00 06/11/20 19:48 DC Heparin Sodium (Heparin (Flush)) 200 units PICC IV 06/12/20 06:00 06/20/20 18:55 DC 06/20/20 06:41 Heparin Sodium (Heparin) 9,000 units ASDIRECTED XX 09/26/20 13:04 09/27/20 07:14 DC Heparin Sodium (Heparin) Please refer to ... ASDIRECTED XX 09/20/20 17:45 09/21/20 17:44 DC Heparin Sodium (Heparin) Please refer to ... ASDIRECTED XX 09/24/20 07:15 09/25/20 07:14 DC Heparin Sodium (Heparin) Please refer to ... ASDIRECTED XX 09/26/20 07:15 09/26/20 13:04 DC Heparin Sodium (Heparin) dose as per volume indica... ASDIRECTED PRN IV SEE LABEL COMMENTS 09/04/20 11:30 09/05/20 08:25 DC Heparin Sodium (Heparin) dose as per volume indica... ASDIRECTED PRN IV SEE LABEL COMMENTS 09/04/20 11:30 09/05/20 08:25 DC Heparin Sodium (Porcine) (Heparin) 5,000 units Q8H SQ 06/11/20 22:00 06/13/20 15:19 DC 06/13/20 12:17 Heparin Sodium (Porcine) (Heparin) 5,000 units Q8H SQ 07/25/20 22:00 09/27/20 05:40 Home Med (Med Rec Complete!) ASDIRECTED XX 06/12/20 10:15 06/12/20 10:08 DC Hydralazine HCl (Apresoline) 10 mg Q6H PRN PO SBP>170 06/11/20 19:45 08/06/20 11:39 DC 06/19/20 22:01 Iron (Venofer) 100 mg HD IV 07/11/20 11:30 08/27/20 13:16 DC Levetiracetam (Keppra) 500 mg DAILY PO 06/12/20 09:00 09/27/20 09:42 Lidocaine (Lidoderm Patch) 1 patch DAILY TD 06/12/20 09:00 09/09/20 11:57 DC 07/13/20 06:43 Lidocaine (Lidoderm Patch) 1 patch DAILY PRN TD BACK PAIN 09/09/20 12:00 09/09/20 14:17 DC Lidocaine HCl (Lidocaine 1% Sdv) 0.5 ml ASDIRECTED PRN SC SEE LABEL COMMENTS 09/04/20 11:30 09/05/20 08:26 DC Lidocaine HCl (Lidocaine 1% Sdv) 0.5 ml ASDIRECTED PRN SC SEE LABEL COMMENTS 09/04/20 11:30 09/05/20 08:26 DC Lidocaine HCl (Lidocaine 1% Sdv) 0.5 ml ASDIRECTED PRN SC SEE LABEL COMMENTS 09/07/20 07:30 09/08/20 07:29 DC Lidocaine HCl (Lidocaine 1% Sdv) 0.5 ml ASDIRECTED PRN SC SEE LABEL COMMENTS 09/07/20 07:30 09/08/20 07:29 DC Lidocaine HCl (Lidocaine 1% Sdv) 0.5 ml ASDIRECTED PRN SC SEE LABEL COMMENTS 09/21/20 08:00 09/21/20 17:44 DC Lidocaine HCl (Lidocaine 1% Sdv) 0.5 ml ASDIRECTED PRN SC SEE LABEL COMMENTS 09/24/20 07:15 09/25/20 07:14 DC Lidocaine HCl (Lidocaine 1% Sdv) 0.5 ml ASDIRECTED PRN SC SEE LABEL COMMENTS 09/26/20 07:15 09/27/20 07:14 DC Midodrine (Proamatine) 10 mg ASDIRECTED PO 06/11/20 20:30 08/31/20 21:12 DC 08/10/20 06:14 Midodrine (Proamatine) 10 mg HD PO 06/11/20 21:00 06/11/20 20:22 DC Miscellaneous (Unresolved Clarification Entry) SEE LABEL COMMENTS DAILY XX 06/24/20 09:00 06/25/20 12:54 DC Non-Formulary Medication ( See Comment Field Below ) CHECK TO SEE IF THE PATIENT... DAILY@0800 XX 06/27/20 08:00 09/01/20 18:17 DC 08/10/20 06:36 Non-Formulary Medication ( See Comment Field Below ) REMOVE LIDODERM PATCH DAILY@21 XX 06/11/20 21:00 09/09/20 11:57 DC 09/04/20 21:00 Non-Formulary Medication ( See Comment Field Below ) REMOVE LIDODERM PATCH DAILY@21 PRN XX BACK PAIN 09/09/20 12:00 09/09/20 14:17 DC Nystatin (Mycostatin Powder, Nystop) Apply to groin folds BIDP PRN TOP REDNESS/IRRITATION 08/27/20 01:00 09/25/20 01:24 DC Ondansetron HCl (Zofran) 4 mg Q6HP PRN PO NAUSEA OR VOMITING 07/08/20 12:45 08/22/20 20:36 Oxycodone HCl (Roxicodone, Oxyir) 10 mg Q4H PRN PO PAIN 06/11/20 19:45 09/27/20 04:45 Pantoprazole Sodium (Protonix) 40 mg DAILY PO 06/12/20 09:00 09/27/20 09:43 Polyethylene Glycol (Miralax) 1 pkt DAILY PRN PO CONSTIPATION 06/11/20 19:45 06/15/20 16:45 DC Polyethylene Glycol (Miralax) 1 pkt DAILYPRN PRN PO CONSTIPATION 08/04/20 17:45 Polymyxin/ Trimethoprim Sulfate (Polytrim Ophth Drops) 1 drop 6XD OU 08/03/20 15:00 08/10/20 12:00 DC 08/10/20 06:13 Pramipexole Dihydrochloride (Mirapex) 0.125 mg QHS PO 06/11/20 21:00 09/26/20 21:56 Senna/Docusate Sodium (Senokot S) 2 tab QHS PO 08/04/20 21:00 09/26/20 21:56 Sertraline HCl (Zoloft) 100 mg DAILY PO 06/12/20 09:00 09/27/20 09:42 Sevelamer Carbonate (Renvela) 2,400 mg WM PO 06/12/20 08:00 09/27/20 09:43 Sodium Chloride (Nacl 0.9%) 200 ml ASDIRECTED PRN IV SEE LABEL COMMENTS 09/03/20 07:30 09/05/20 08:26 DC Sodium Chloride (Nacl 0.9%) 200 ml ASDIRECTED PRN IV SEE LABEL COMMENTS 09/04/20 11:30 09/10/20 10:39 DC Sodium Chloride (Nacl 0.9%) 200 ml ASDIRECTED PRN IV SEE LABEL COMMENTS 09/07/20 07:30 09/10/20 10:39 DC Sodium Chloride (Nacl 0.9%) 200 ml ASDIRECTED PRN IV SEE LABEL COMMENTS 09/12/20 08:00 09/24/20 08:57 DC Sodium Chloride (Nacl 0.9%) 200 ml ASDIRECTED PRN IV SEE LABEL COMMENTS 09/24/20 07:15 09/25/20 07:14 DC Sodium Chloride (Nacl 0.9%) 200 ml ASDIRECTED PRN IV SEE LABEL COMMENTS 09/26/20 07:15 09/27/20 07:14 DC Sodium Chloride (Saline Lock Flush) 10 ml ASDIRECTED PRN IV SEE LABEL COMMENTS 06/11/20 19:45 06/11/20 19:50 DC Sodium Chloride (Saline Lock Flush) 10 ml ASDIRECTED PRN IV SEE LABEL COMMENTS 06/11/20 19:45 06/20/20 18:55 DC 06/20/20 06:41 Sodium Chloride (Saline Lock Flush) 10 ml PICC IV 06/12/20 06:00 06/11/20 19:49 DC Sodium Chloride (Saline Lock Flush) 10 ml PICC IV 06/12/20 06:00 06/20/20 18:55 DC 06/20/20 06:41 Sucroferric Oxyhydroxide (Velphoro) 500 mg WM PO 07/11/20 12:30 09/21/20 12:33 DC 09/15/20 18:12 Scheduled Amiodarone Hcl (Pacerone) 200 Mg Tab, 200 MG PO DAILY, (Reported) 1100 Hydralazine HCl (Hydralazine HCl) 100 Mg Tablet, 100 MG PO DAILY, (Reported) Levetiracetam (Keppra) 500 Mg Tablet, 500 MG PO DAILY, (Reported) Pantoprazole Sodium (Protonix) 40 Mg Tablet.dr, 40 MG PO DAILY, (Reported) Pramipexole Di-HCl (Mirapex) 0.125 Mg Tablet, 0.125 MG PO QHS, (Reported) Sennosides (Senna Lax) 8.6 Mg Tablet, 2 TAB PO QHS, (Reported) Sertraline Hcl (Zoloft) 100 Mg Tablet, 100 MG PO DAILY, (Reported) 1100 Sevelamer Carbonate (Renvela) 800 Mg Tablet, 800 MG PO WM, (Reported) Scheduled PRN Polyethylene Glycol 3350 (Miralax) 17 Gm Powd.pack, 17 GM PO DAILY PRN for CONSTIPATION, (Reported) Allergies Coded Allergies: moxifloxacin (Verified Allergy, Intermediate, RASH, 12/25/19) codeine (Verified Allergy, Unknown, 12/25/19) valsartan (Verified Allergy, Unknown, 12/25/19) CAESAR RAJPUT DO Sep 27, 2020 09:47
[2020-09-27] MEDS: SENOKOT S TAB PO SCH (21:31)
[2020-09-27] MEDS: PRAMIPEXOLE (MIRAPEX) 0.125 MG TAB PO SCH (21:31)
[2020-09-28] MEDS: guaiFENesin SYRUP 200 MG/10 ML UDC PO SCH ×4 (00:18→18:07)
[2020-09-28] MEDS: IPRATROPIUM 0.5MG/ALBUTEROL 2.5MG INH SOL UD 3ML (DUONEB) NEB SCH ×7 (03:13→23:42)
[2020-09-28] MEDS: IPRATROPIUM 0.5MG/ALBUTEROL 2.5MG INH SOL UD 3ML (DUONEB) NEB PRN ×2 (05:10→13:33)
[2020-09-28 06:00] VITALS: BP 149/60
[2020-09-28] MEDS: HEPARIN SOD (PORCINE) 5000UNITS/ML 1ML VIAL/SYRINGE SQ SCH ×3 (06:48→22:09)
[2020-09-28] MEDS: levETIRAcetam 250MG TABLET (KEPPRA) PO SCH (06:48)
[2020-09-28] MEDS: PANTOPRAZOLE 40MG TAB (PROTONIX) PO SCH (06:48)
[2020-09-28] MEDS: SERTRALINE 100 MG TAB PO SCH (06:49)
[2020-09-28] MEDS: AMIODARONE 200 MG TAB (PACERONE) PO SCH (06:49)
[2020-09-28] MEDS ORDERED: SODIUM CHLORIDE 0.9% 1000ML IV PRN (07:45)
[2020-09-28] MEDS: (RENVELA) SEVELAMER **CARBONate** 800 MG TAB PO SCH ×3 (08:00→18:07)
[2020-09-28] MEDS: oxyCODONE 5MG TAB PO PRN ×2 (16:38→22:08)
[2020-09-28] MEDS: ALPRAZolam 0.25 MG TAB PO PRN ×2 (16:38→22:35)
--- NOTE | 2020-09-28 21:12 | IPN ---
PROGRESS NOTE DATE: 09/28/2020 SUBJECTIVE: The patient was seen and examined at the bedside today morning. He is getting hemodialysis done. He is tolerating the hemodialysis procedure well. He denies any active complaints at this time. OBJECTIVE: VITAL SIGNS: Temperature is 97 degrees Fahrenheit, blood pressure 140/60, pulse is 68, respiratory rate of 17, saturating 96% on trach collar at 28% FiO2. Intake and Output there is no urine output recorded. Weight on the bed scale is not available. PHYSICAL EXAMINATION: GENERAL APPEARANCE: The patient is awake, alert, oriented x3, morbidly obese, laying in the bed getting hemodialysis done. HEAD AND NECK: Pupils are equally round and reactive to light. Mucous membranes are moist. Neck is supple. He has a trach collar. CARDIOVASCULAR: S1, S2, regular rate. EXTREMITIES: No edema of the bilateral lower extremities. RESPIRATORY: Chest is clear to auscultation bilaterally. Bilaterally currently no rales or rhonchi. ABDOMEN: Soft, positive bowel sounds, nontender, no organomegaly. MUSCULOSKELETAL: No clubbing, no cyanosis. He has decreased mobility of the bilateral lower extremities. ANIMAL DAMAGE CONTROL AGENT: The patient is awake and alert, able to follow commands. Moves extremities and tries to talk through the trach. LAB REVIEW: CBC and BMP are from September 26. Labs were reviewed. CURRENT INPATIENT MEDICATIONS: The patient's medications were all reviewed by myself. No significant change in the medications today. ASSESSMENT AND PLAN: 1. End-stage renal disease - The patient is being dialyzed today according to regular regimen. Ultrafiltration goal is 3 liters. 2. Hyperkalemia he gets dialysis at 2K baths. Potassium level improves with that. 3. Hypertension - blood pressure is controlled with current dose of Amlodipine 10 mg p.o. daily. 4. Chronic kidney disease, mineral bone disease - The patient is noncompliant with his phosphorous binders. He reports that he is dieting now and he is only taking phosphorous binder once a day. He refused to take his Velphoro.
[2020-09-28] MEDS: PRAMIPEXOLE (MIRAPEX) 0.125 MG TAB PO SCH (22:10)
[2020-09-28] MEDS: SENOKOT S TAB PO SCH (22:10)
[2020-09-28] MEDS: VANICREAM MOISTURIZING SKIN CREAM 113GM TUBE TOP PRN (22:12)
[2020-09-29] MEDS: guaiFENesin SYRUP 200 MG/10 ML UDC PO SCH ×4 (00:06→18:50)
[2020-09-29] MEDS: IPRATROPIUM 0.5MG/ALBUTEROL 2.5MG INH SOL UD 3ML (DUONEB) NEB PRN (01:42)
[2020-09-29] MEDS: IPRATROPIUM 0.5MG/ALBUTEROL 2.5MG INH SOL UD 3ML (DUONEB) NEB SCH ×6 (04:46→23:00)
[2020-09-29] MEDS: HEPARIN SOD (PORCINE) 5000UNITS/ML 1ML VIAL/SYRINGE SQ SCH ×3 (05:11→21:35)
[2020-09-29 06:00] VITALS: BP 136/63
[2020-09-29] MEDS: (RENVELA) SEVELAMER **CARBONate** 800 MG TAB PO SCH ×3 (09:58→18:50)
[2020-09-29] MEDS: SERTRALINE 100 MG TAB PO SCH (10:12)
[2020-09-29] MEDS: PANTOPRAZOLE 40MG TAB (PROTONIX) PO SCH (10:12)
[2020-09-29] MEDS: levETIRAcetam 250MG TABLET (KEPPRA) PO SCH (10:12)
[2020-09-29] MEDS: AMIODARONE 200 MG TAB (PACERONE) PO SCH (10:12)
[2020-09-29] MEDS: ALPRAZolam 0.25 MG TAB PO PRN ×2 (10:16→21:35)
[2020-09-29] MEDS: oxyCODONE 5MG TAB PO PRN ×2 (10:16→21:36)
[2020-09-29] MEDS: PRAMIPEXOLE (MIRAPEX) 0.125 MG TAB PO SCH (21:34)
[2020-09-29] MEDS: SENOKOT S TAB PO SCH (21:35)
[2020-09-30] MEDS: guaiFENesin SYRUP 200 MG/10 ML UDC PO SCH ×4 (00:07→18:00)
[2020-09-30] MEDS: IPRATROPIUM 0.5MG/ALBUTEROL 2.5MG INH SOL UD 3ML (DUONEB) NEB PRN ×2 (01:25→06:04)
[2020-09-30] MEDS: IPRATROPIUM 0.5MG/ALBUTEROL 2.5MG INH SOL UD 3ML (DUONEB) NEB SCH ×6 (03:29→23:21)
[2020-09-30 06:00] VITALS: BP 130/50
[2020-09-30] MEDS: HEPARIN SOD (PORCINE) 5000UNITS/ML 1ML VIAL/SYRINGE SQ SCH ×3 (06:00→21:36)
[2020-09-30] MEDS: (RENVELA) SEVELAMER **CARBONate** 800 MG TAB PO SCH ×3 (08:00→18:00)
[2020-09-30] MEDS: PANTOPRAZOLE 40MG TAB (PROTONIX) PO SCH (09:50)
[2020-09-30] MEDS: SERTRALINE 100 MG TAB PO SCH (09:50)
[2020-09-30] MEDS: AMIODARONE 200 MG TAB (PACERONE) PO SCH (09:50)
[2020-09-30] MEDS: levETIRAcetam 250MG TABLET (KEPPRA) PO SCH (09:51)
[2020-09-30 19:24] VITALS: O2SAT 98
[2020-09-30] MEDS: PRAMIPEXOLE (MIRAPEX) 0.125 MG TAB PO SCH (21:37)
[2020-09-30] MEDS: ALPRAZolam 0.25 MG TAB PO PRN (21:37)
[2020-09-30] MEDS: SENOKOT S TAB PO SCH (21:37)
[2020-09-30] MEDS: oxyCODONE 5MG TAB PO PRN (21:39)
[2020-10-01] MEDS: IPRATROPIUM 0.5MG/ALBUTEROL 2.5MG INH SOL UD 3ML (DUONEB) NEB PRN ×2 (02:01→17:48)
[2020-10-01] MEDS: IPRATROPIUM 0.5MG/ALBUTEROL 2.5MG INH SOL UD 3ML (DUONEB) NEB SCH ×6 (03:25→23:13)
[2020-10-01] MEDS: oxyCODONE 5MG TAB PO PRN ×2 (04:42→22:25)
[2020-10-01 06:00] VITALS: BP 135/60
[2020-10-01] MEDS: HEPARIN SOD (PORCINE) 5000UNITS/ML 1ML VIAL/SYRINGE SQ SCH ×3 (06:03→22:23)
[2020-10-01] MEDS: AMIODARONE 200 MG TAB (PACERONE) PO SCH (06:04)
[2020-10-01] MEDS: PANTOPRAZOLE 40MG TAB (PROTONIX) PO SCH (06:05)
[2020-10-01] MEDS: levETIRAcetam 250MG TABLET (KEPPRA) PO SCH (06:05)
[2020-10-01] MEDS: (RENVELA) SEVELAMER **CARBONate** 800 MG TAB PO SCH ×4 (06:08→18:44)
[2020-10-01] MEDS: guaiFENesin SYRUP 200 MG/10 ML UDC PO SCH ×5 (06:08→23:07)
[2020-10-01] MEDS: SERTRALINE HCL 50 MG TAB PO SCH (09:27)
[2020-10-01] MEDS ORDERED: LIDOCAINE 1% SDV 5ML VIAL SC PRN (10:30)
[2020-10-01] MEDS ORDERED: SODIUM CHLORIDE 0.9% 1000ML IV PRN (10:30)
[2020-10-01 14:06] LABS: BASO % 0.4 % (0.0-1.0); EOS # 0.4 10^3/uL (0.0-0.5); EOS % 5.5 % (0.0-3.0); HEMATOCRIT 33.8 % (42.0-52.0); HEMOGLOBIN 9.9 g/dl (13.5-17.5); LYMPH # 1.6 10^3/uL (1.5-5.0); LYMPH % 21.8 % (24.0-44.0); MEAN CORPUSCULAR HEMOGLOBIN 30.7 pg (27.0-33.0); MEAN CORPUSCULAR HGB CONC 29.3 g/dl (32.0-36.5); MEAN CORPUSCULAR VOLUME 104.6 fl (80.0-96.0); MONO # 0.4 10^3/uL (0.0-0.8); MONO % 4.9 % (0.0-5.0); NEUTROPHILS # 4.8 10^3/uL (1.5-8.5); NEUTROPHILS % 66.8 % (36.0-66.0); PLATELET COUNT, AUTOMATED 147 10^3/uL (150-450); RED BLOOD COUNT 3.23 10^6/uL (4.30-6.10); WHITE BLOOD COUNT 7.2 10^3/uL (4.0-10.0)
[2020-10-01 14:23] LABS: ALBUMIN 2.4 GM/DL (3.2-5.2); CALCIUM LEVEL 8.6 MG/DL (8.5-10.1); CREATININE FOR GFR 5.35 MG/DL (0.70-1.30); GLOMERULAR FILTRATION RATE 12.3 (>60); PHOSPHORUS LEVEL 5.4 MG/DL (2.5-4.9); POTASSIUM SERUM 4.2 MEQ/L (3.5-5.1)
--- NOTE | 2020-10-01 17:22 | IPN ---
PROGRESS NOTE DATE: 10/01/2020 SUBJECTIVE: Matthew is seen and examined this afternoon at the bedside receiving his hemodialysis treatment. He offers no complaints. He is tolerating his dialysis treatment without any issues. Temperature 97.3, pulse 76, respiratory rate 18, blood pressure 135/60, saturating 99% on trach collar. Intake yesterday was 1765. Weight in the bed scale today is not recorded. GENERAL: Patient is seen lying in the dialysis unit receiving his treatment, awake, alert, oriented times three in no apparent distress.. Pupils are round and reactive to light. Neck is supple. Trach collar is present. CARDIAC: S1, S2, regular rate. EXTREMITIES: Show no edema clubbing. LUNGS: Anterior auscultation only, clear with no wheeze or crackle. ABDOMEN: Soft and obese. There are bowel sounds. Dialysis accessed right arm arteriovenous (AV) fistula is patent and presently in use. NEUROLOGIC: He is awake, alert, oriented times three and tries to talk through the trach and is cooperative with physical exam. LABORATORY DATA: Hemoglobin 9.9, platelets 147. Sodium 136, potassium 4.2, phosphorus 5.4. INPATIENT MEDICATIONS: Reviewed by myself and no change from prior except for Zoloft 150 mg daily, which was started today. PROBLEMS: 1. End-stage renal disease, on hemodialysis on a Wednesday, , Wednesday schedule. The patient is dialyzed according to his chronic prescription. His goal fluid removal is 3 liters. His volume status is acceptable. His electrolytes are acceptable. His laboratory studies are checked intermittently. His fistula is in good use. Continue current prescription. 2. Hypertension. Blood pressures are well controlled. There has not been any significant hypotension of hemodialysis. He is continued on amlodipine. 3. Anemia related to chronic renal failure. Hemoglobin has down trended to 9.9, and I will resume Aranesp if hemoglobin stays less than 10. 4. Secondary hyperparathyroidism of renal origin. His phosphorus and parathyroid hormone levels are both acceptable. He continues on Renvela.
[2020-10-01 19:17] VITALS: O2SAT 97
[2020-10-01] MEDS: SENOKOT S TAB PO SCH (22:23)
[2020-10-01] MEDS: PRAMIPEXOLE (MIRAPEX) 0.125 MG TAB PO SCH (22:24)
[2020-10-01] MEDS: ALPRAZolam 0.25 MG TAB PO PRN (22:24)
[2020-10-02] MEDS: IPRATROPIUM 0.5MG/ALBUTEROL 2.5MG INH SOL UD 3ML (DUONEB) NEB SCH ×6 (03:12→22:47)
[2020-10-02] MEDS: IPRATROPIUM 0.5MG/ALBUTEROL 2.5MG INH SOL UD 3ML (DUONEB) NEB PRN ×3 (05:30→14:07)
[2020-10-02] MEDS: HEPARIN SOD (PORCINE) 5000UNITS/ML 1ML VIAL/SYRINGE SQ SCH ×3 (06:08→21:36)
[2020-10-02] MEDS: guaiFENesin SYRUP 200 MG/10 ML UDC PO SCH ×4 (06:09→23:13)
[2020-10-02] MEDS: (RENVELA) SEVELAMER **CARBONate** 800 MG TAB PO SCH ×3 (08:07→18:00)
[2020-10-02] MEDS: oxyCODONE 5MG TAB PO PRN ×3 (08:08→21:38)
[2020-10-02] MEDS: SERTRALINE HCL 50 MG TAB PO SCH (08:08)
[2020-10-02] MEDS: ALPRAZolam 0.25 MG TAB PO PRN ×3 (08:08→21:37)
[2020-10-02] MEDS: levETIRAcetam 250MG TABLET (KEPPRA) PO SCH (08:08)
[2020-10-02] MEDS: PANTOPRAZOLE 40MG TAB (PROTONIX) PO SCH (08:09)
[2020-10-02] MEDS: AMIODARONE 200 MG TAB (PACERONE) PO SCH (08:09)
[2020-10-02 19:08] VITALS: O2SAT 97
[2020-10-02] MEDS: PRAMIPEXOLE (MIRAPEX) 0.125 MG TAB PO SCH (21:37)
[2020-10-02] MEDS: SENOKOT S TAB PO SCH (21:37)
[2020-10-03] MEDS: IPRATROPIUM 0.5MG/ALBUTEROL 2.5MG INH SOL UD 3ML (DUONEB) NEB SCH ×6 (02:53→23:56)
[2020-10-03] MEDS: IPRATROPIUM 0.5MG/ALBUTEROL 2.5MG INH SOL UD 3ML (DUONEB) NEB PRN ×4 (05:12→21:46)
[2020-10-03] MEDS: guaiFENesin SYRUP 200 MG/10 ML UDC PO SCH ×4 (06:15→23:01)
[2020-10-03] MEDS: HEPARIN SOD (PORCINE) 5000UNITS/ML 1ML VIAL/SYRINGE SQ SCH ×3 (06:15→22:45)
[2020-10-03] MEDS: SERTRALINE HCL 50 MG TAB PO SCH (06:16)
[2020-10-03] MEDS: levETIRAcetam 250MG TABLET (KEPPRA) PO SCH (06:27)
[2020-10-03] MEDS: PANTOPRAZOLE 40MG TAB (PROTONIX) PO SCH (06:28)
[2020-10-03] MEDS: (RENVELA) SEVELAMER **CARBONate** 800 MG TAB PO SCH ×3 (06:29→18:00)
[2020-10-03] MEDS: oxyCODONE 5MG TAB PO PRN ×2 (06:30→22:58)
[2020-10-03] MEDS ORDERED: SODIUM CHLORIDE 0.9% 1000ML IV PRN (09:30)
[2020-10-03] MEDS ORDERED: LIDOCAINE 1% SDV 5ML VIAL SC PRN (09:30)
[2020-10-03] MEDS: AMIODARONE 200 MG TAB (PACERONE) PO SCH (09:45)
--- NOTE | 2020-10-03 20:15 | IPN ---
NEPHROLOGY PROGRESS NOTE DATE: 10/03/2020 SUBJECTIVE: The patient was seen and examined this morning in the Hemodialysis Unit receiving his treatment. He denies any complaints. He is being dialyzed without issue. He denies shortness of breath or chest pain. PHYSICAL EXAMINATION: VITAL SIGNS: No recent temperature recorded. Blood pressure on dialysis 122/67, respiratory rate 16, saturating 97% on trach collar. INTAKE AND OUTPUT: Intake yesterday was 800. Dialysis today removed 3 liters. Weight in the bed scale is not recorded. GENERAL APPEARANCE: The patient is seen receiving his treatment, drowsy but easily arousable, in no apparent distress. Makes eye contact. HEENT: Tongue is moist. NECK: Supple. Jugular veins are not elevated. There is a trach collar present. HEART: S1, S2, regular. No leg edema. LUNGS: Anterior auscultation only and clear with no wheeze or crackles. ABDOMEN: Soft and obese. There are bowel sounds. A dialysis access right arm AV fistula is patent and presently in use. NEUROLOGICAL: He is awake, alert, oriented x3 and tries to talk through the trach. LABORATORY STUDIES: There are no new labs today. INPATIENT MEDICATIONS: The patient's medications were reviewed by myself and no change noted from prior. PROBLEMS: 1. End-stage renal disease on hemodialysis on a Wednesday, , Wednesday schedule. The patient is well dialyzed. Volume status is optimized. We remove around 3 liters with each treatment. His labs are checked intermittently. His electrolytes have been acceptable. Fistula is in good use. Continue current present. 2. Hypertension - blood pressure are well controlled. There has not been any significant hypotension of hemodialysis. He continues on Amlodipine. 3. Anemia of chronic renal failure latest hemoglobin on the labs was 9.9. Prior to that, hemoglobin was above 11. We will start Aranesp if indicated, if hemoglobin persistently less than 10. 4. Renal osteodystrophy phosphorous levels are acceptable with current binder.
[2020-10-03] MEDS: PRAMIPEXOLE (MIRAPEX) 0.125 MG TAB PO SCH (22:44)
[2020-10-03] MEDS: SENOKOT S TAB PO SCH (22:44)
[2020-10-03] MEDS: ALPRAZolam 0.25 MG TAB PO PRN (22:57)
[2020-10-04] MEDS: IPRATROPIUM 0.5MG/ALBUTEROL 2.5MG INH SOL UD 3ML (DUONEB) NEB SCH ×6 (02:39→22:46)
[2020-10-04 06:00] VITALS: BP 136/63
[2020-10-04] MEDS: HEPARIN SOD (PORCINE) 5000UNITS/ML 1ML VIAL/SYRINGE SQ SCH ×3 (06:55→20:15)
[2020-10-04] MEDS: guaiFENesin SYRUP 200 MG/10 ML UDC PO SCH ×3 (06:55→18:00)
[2020-10-04] MEDS: (RENVELA) SEVELAMER **CARBONate** 800 MG TAB PO SCH ×3 (08:00→18:00)
[2020-10-04] MEDS: AMIODARONE 200 MG TAB (PACERONE) PO SCH (10:47)
[2020-10-04] MEDS: levETIRAcetam 250MG TABLET (KEPPRA) PO SCH (10:47)
[2020-10-04] MEDS: PANTOPRAZOLE 40MG TAB (PROTONIX) PO SCH (10:47)
[2020-10-04] MEDS: SERTRALINE HCL 50 MG TAB PO SCH (10:47)
[2020-10-04] MEDS: ALPRAZolam 0.25 MG TAB PO PRN ×2 (10:47→20:16)
[2020-10-04] MEDS: oxyCODONE 5MG TAB PO PRN ×2 (10:48→20:16)
[2020-10-04] MEDS: IPRATROPIUM 0.5MG/ALBUTEROL 2.5MG INH SOL UD 3ML (DUONEB) NEB PRN (20:14)
[2020-10-04] MEDS: PRAMIPEXOLE (MIRAPEX) 0.125 MG TAB PO SCH (20:16)
[2020-10-04] MEDS: SENOKOT S TAB PO SCH (20:17)
[2020-10-04 22:48] VITALS: O2SAT 97
[2020-10-05] VITALS (23 sets, daily range): BP systolic 114–158; BP diastolic 49–123; O2SAT 95
[2020-10-05] MEDS: guaiFENesin SYRUP 200 MG/10 ML UDC PO SCH ×4 (00:17→18:00)
[2020-10-05] MEDS: IPRATROPIUM 0.5MG/ALBUTEROL 2.5MG INH SOL UD 3ML (DUONEB) NEB PRN (00:57)
[2020-10-05] MEDS: IPRATROPIUM 0.5MG/ALBUTEROL 2.5MG INH SOL UD 3ML (DUONEB) NEB SCH ×5 (02:42→21:16)
[2020-10-05] MEDS: HEPARIN SOD (PORCINE) 5000UNITS/ML 1ML VIAL/SYRINGE SQ SCH ×3 (06:04→22:08)
[2020-10-05] MEDS: oxyCODONE 5MG TAB PO PRN ×2 (06:04→22:10)
[2020-10-05] MEDS: levETIRAcetam 250MG TABLET (KEPPRA) PO SCH (06:05)
[2020-10-05] MEDS: PANTOPRAZOLE 40MG TAB (PROTONIX) PO SCH (06:05)
[2020-10-05] MEDS: SERTRALINE HCL 50 MG TAB PO SCH (06:05)
[2020-10-05] MEDS: AMIODARONE 200 MG TAB (PACERONE) PO SCH (06:05)
[2020-10-05] MEDS: ALPRAZolam 0.25 MG TAB PO PRN (06:06)
[2020-10-05] MEDS: (RENVELA) SEVELAMER **CARBONate** 800 MG TAB PO SCH ×3 (08:00→18:00)
[2020-10-05 08:47] LABS: HEMATOCRIT 33.2 % (42.0-52.0); HEMOGLOBIN 9.6 g/dl (13.5-17.5); MEAN CORPUSCULAR HEMOGLOBIN 30.4 pg (27.0-33.0); MEAN CORPUSCULAR HGB CONC 28.9 g/dl (32.0-36.5); MEAN CORPUSCULAR VOLUME 105.1 fl (80.0-96.0); PLATELET COUNT, AUTOMATED 143 10^3/uL (150-450); RED BLOOD COUNT 3.16 10^6/uL (4.30-6.10); WHITE BLOOD COUNT 7.3 10^3/uL (4.0-10.0)
[2020-10-05 09:13] LABS: CALCIUM LEVEL 8.9 MG/DL (8.5-10.1); CREATININE FOR GFR 5.09 MG/DL (0.70-1.30); POTASSIUM SERUM 4.8 MEQ/L (3.5-5.1)
--- NOTE | 2020-10-05 11:17 | REP ---
INDICATION: SOB- In Dialysis. COMPARISON: 09/11/2020. TECHNIQUE: SINGLE PORTABLE AP VIEW OF THE CHEST WAS PERFORMED. FINDINGS: There is stable cardiomegaly. The mediastinal silhouette is unchanged. Tracheostomy tube is again noted in place. There is again bilateral prominence of the pulmonary vasculature with increased interstitial markings and mild scattered alveolar opacities. The findings are stable. IMPRESSION: Stable findings as discussed above. <Electronically signed by Last Lin > 10/05/20 1110
[2020-10-05 12:16] LABS: ABG BASE EXCESS 2.4 (-2.0-2.0); ABG HCO3 31.2 MEQ/L (22.0-26.0); ABG O2 SATURATION 97.9 % (95.0-99.0); ABG PARTIAL PRESSURE O2 112.7 mmHg (75.0-100.0); ABG STANDARD HCO3 26.6 MEQ/L (22.0-26.0); ABG TOTAL CO2 33.5 MEQ/L (22.0-29.0)
[2020-10-05 12:27] LABS: ABG pH (ARTERIAL) 7.246 UNITS (7.350-7.450)
[2020-10-05 12:28] LABS: ABG PARTIAL PRESSURE CO2 73.5 mmHg (35.0-45.0)
--- NOTE | 2020-10-05 13:17 | IPNPDOC ---
Text Note Date of Service The patient was seen on 10/05/20. NOTE SUBJECTIVE: Reserve poorly at dialysis this morning that he requested them to stop early. Was incredibly sleep and somnolent but fully oriented otherwise Denies chest pain, palpitations, abdominal pain No noted diarrhea, fevers, chills, sweats OBJECTIVE: VITAL SIGNS: Please see below. Afebrile. No hypoxemia GENERAL: NA, somnolent HEENT: PERRLA, EOMI CARDIOVASCULAR: Normal S1, S2. No M/R/G RESPIRATORY: trach in place, lungs CTAB, diminished with rare transmitted upper airway sounds, no wheezing, no rales ABDOMINAL: obese abdomen, soft, non tender EXTREMITIES: chronic zhen stasis dermatitis, heel float boots NEUROLOGICAL: AAO x 3, no focal neuro deficit PSYCHOLOGICAL: calm, cooperative but at times tearful Labs: WBC 7.3 Hgb 9.6 platelets 143 Na 139 K 4.8 Cr 5.09 ABG - 7.246/pCO2 73.5/pO2 112.7 CXR - stable without acute changes or evidence of new infiltrates or effusions. ASSESSMENT: 50 year old male with multiple comorbidities including ESRD on hemodialysis, tr acheal stenosis pending placement to facility who is now being transferred to the ICU in the setting of newly noted somnolence with respiratory acidosis with hypercarbia of unclear etiology at this time. PLAN: #Chronic respiratory failure status post tracheostomy, with newly noted hypercarbia -Trach replacement/exchange 09/11/20 -C/w resp treatments, trach care -transfer to ICU for vent -consulted Dr. Yang -continue duonebs and albuterol PRN -CXR without newly noted pathology -covid-19 rapid test #ESRD on hemodialysis -C/w Wednesday, , Wednesday HD schedule #Hypotension. -C/w midodrine on dialysis days. #Anemia. -Stable, monitor and transfuse if indicated. -hemoglobin level is optimal -Was receiving Aranesp 100 mcg once a week with dialysis until recently #Chronically bedridden. -Awaiting placement to halfway when medically stable #Chronic kidney disease, mineral bone disease -Renvela and Velphoro dose #DVT px -Teds, scds.Heparin Dispo: ICU VS,Fishbone, I+O VS, Fishbone, I+O Laboratory Tests 10/05/20 08:22 Vital Signs Date Time Temp Pulse Resp B/P (MAP) Pulse Ox O2 Delivery O2 Flow Rate FiO2 10/05/20 06:43 18 10/05/20 06:06 70 132/61 10/05/20 06:00 98.2 96 Trach Collar 10/04/20 22:48 5.0 28 I&O- Last 24 Hours up to 6 AM 10/05/20 06:00 Intake Total 1255 ml Output Total 0 ml Balance 1255 ml ELTON BARAJAS MD Oct 05, 2020 13:17
[2020-10-05 17:00] LABS: ABG BASE EXCESS 1.6 (-2.0-2.0); ABG HCO3 28.8 MEQ/L (22.0-26.0); ABG O2 SATURATION 98.2 % (95.0-99.0); ABG PARTIAL PRESSURE CO2 58.3 mmHg (35.0-45.0); ABG PARTIAL PRESSURE O2 113.8 mmHg (75.0-100.0); ABG STANDARD HCO3 25.9 MEQ/L (22.0-26.0); ABG TOTAL CO2 30.6 MEQ/L (22.0-29.0); ABG pH (ARTERIAL) 7.312 UNITS (7.350-7.450)
--- NOTE | 2020-10-05 19:05 | IPN ---
PROGRESS NOTE DATE: 10/05/2020 Mr. Richard is seen this morning on his bedside during hemodialysis. Today is his regular dialysis day, and he was brought to dialysis room. Apparently, nursing staff reports that he has been requiring frequent nebulizer treatment and suctioning. Two hours into dialysis treatment, patient started complaining of difficulty breathing and wanted to come off the dialysis machine. I came in and evaluated him. He looks comfortable and has been on tracheostomy. He has been suctioned, and no significant change. His oxygen saturation is 99% on trach collar. PHYSICAL EXAMINATION: Temperature 98 degrees Fahrenheit, heart rate 68 per minute, and respiratory rate 18 per minute. Blood pressure is about 100/50 mm of mercury. He had a couple of episodes of mild hypotension during dialysis, which has improved. His oxygen saturation is 99% on trach collar. Head is atraumatic. Neck veins difficult to be assessed. Tracheostomy is in place. Heart sounds regular and lungs with diminished breath sounds. Abdomen obese and nontender. Extremities without any cyanosis or clubbing. Today's labs show WBC count 7.3, hemoglobin 9.6, and hematocrit 33.2. Platelets 143. Sodium 139, potassium 4.8, CO2 of 29, BUN 36, and creatinine 5.09. Glucose 96 and calcium 8.9. A lactic acid level is 0.9. Blood gas today shows pH 7.24, pCO2 of 73.5, pO2 of 112.7, bicarbonate 26.6. PROBLEMS: 1. End-stage renal disease. Patient dialyzed for 2 hours. He has been now taken off the dialysis machine due to his request and difficulty breathing. His electrolytes have been stable. 2. Shortness of breath. His volume status has been reasonably well compensated, and difficult to remove excessive amount of fluid due to low blood pressure. We will re-evaluate him for further dialysis on Wednesday. A stat portable chest x-ray has been ordered by the hospitalist service to rule out any possibility of mucous plugs and lung collapse. 3. Anemia. His anemia has been stable, and we will continue to manage with dialysis. No urgent need for transfusion at present. 4. Respiratory failure. Patient has chronic obesity and hypoventilation-associated respiratory failure and has a tracheostomy in place. He is requiring frequent suctioning and nebulizer treatments according to nursing staff. I do not feel that his volume status is any significantly decompensated.
[2020-10-05] MEDS: PRAMIPEXOLE (MIRAPEX) 0.125 MG TAB PO SCH (22:07)
[2020-10-05] MEDS: SENOKOT S TAB PO SCH (22:07)
[2020-10-06] VITALS (16 sets, daily range): BP systolic 118–198; BP diastolic 51–86; O2SAT 98
[2020-10-06] MEDS: IPRATROPIUM 0.5MG/ALBUTEROL 2.5MG INH SOL UD 3ML (DUONEB) NEB SCH ×7 (00:30→23:21)
[2020-10-06] MEDS: guaiFENesin SYRUP 200 MG/10 ML UDC PO SCH ×4 (06:20→17:05)
[2020-10-06] MEDS: HEPARIN SOD (PORCINE) 5000UNITS/ML 1ML VIAL/SYRINGE SQ SCH ×3 (06:20→21:33)
[2020-10-06] MEDS: (RENVELA) SEVELAMER **CARBONate** 800 MG TAB PO SCH ×3 (08:00→17:05)
[2020-10-06] MEDS: AMIODARONE 200 MG TAB (PACERONE) PO SCH (09:05)
[2020-10-06] MEDS: PANTOPRAZOLE 40MG TAB (PROTONIX) PO SCH (09:05)
[2020-10-06] MEDS: SERTRALINE HCL 50 MG TAB PO SCH (09:05)
[2020-10-06] MEDS: levETIRAcetam 250MG TABLET (KEPPRA) PO SCH (09:05)
[2020-10-06 09:22] LABS: CALCIUM LEVEL 8.8 MG/DL (8.5-10.1); CREATININE FOR GFR 4.71 MG/DL (0.70-1.30); GLOMERULAR FILTRATION RATE 14.2 (>60); POTASSIUM SERUM 5.1 MEQ/L (3.5-5.1)
[2020-10-06 10:55] LABS: HEMATOCRIT 32.5 % (42.0-52.0); MEAN CORPUSCULAR HEMOGLOBIN 30.8 pg (27.0-33.0); MEAN CORPUSCULAR HGB CONC 30.8 g/dl (32.0-36.5); PLATELET COUNT, AUTOMATED 141 10^3/uL (150-450); RED BLOOD COUNT 3.25 10^6/uL (4.30-6.10); WHITE BLOOD COUNT 6.5 10^3/uL (4.0-10.0)
[2020-10-06 11:37] LABS: ABG BASE EXCESS 2.3 (-2.0-2.0); ABG HCO3 27.8 MEQ/L (22.0-26.0); ABG O2 SATURATION 98.4 % (95.0-99.0); ABG PARTIAL PRESSURE CO2 46.9 mmHg (35.0-45.0); ABG PARTIAL PRESSURE O2 125.3 mmHg (75.0-100.0); ABG STANDARD HCO3 26.5 MEQ/L (22.0-26.0); ABG TOTAL CO2 29.2 MEQ/L (22.0-29.0)
--- NOTE | 2020-10-06 15:51 | CCN ---
CRITICAL CARE NOTE DATE: 10/05/2020 SUBJECTIVE: I was called to see this 50-year-old male with hypercarbic respiratory failure. Hospitalized since May of this year, he was noted to be lethargic and arterial blood gas showed respiratory acidosis. The patient has a history of complex medical illness with chronic respiratory failure secondary to obesity hypoventilation syndrome and sleep apnea. He has had a tracheostomy in place. He has chronic kidney disease on dialysis, seizure disorder, history of cardiac arrhythmias, chronic pain, and anxiety. OBJECTIVE: VITAL SIGNS: Temperature 98.2, pulse rate 69, respirations 18 and shallow, blood pressure 132/61. GENERAL APPEARANCE: He is responsive, lethargic. HEENT: Oral mucosa is pink. Neck is patel. There is a tracheostomy tube in place with no cuff. Oxygen infusing over the tracheostomy site. HEART: Sounds are regular without appreciable murmur and quite distant. LUNGS: Breath sounds diminished with some dullness in the right base. There are diffuse rales. CHEST: Symmetric. ABDOMEN: Obese. EXTREMITIES: Pulses x4. DIAGNOSTIC STUDIES: White cell count is 7.3, hemoglobin 9.6, hematocrit 33.2, platelet count 143,000. His electrolytes are sodium 139, potassium 4.8, chloride 103, CO2 of 29, BUN 36, creatinine 5.09, glucose 96, calcium 8.9, ammonia 43. Arterial blood gases show a pH of 7.24, pCO2 of 73, pO2 of 112.7. I have reviewed a portable chest x-ray showing massive cardiomegaly, acute on chronic interstitial marking prominence, atelectasis in the right base with tenting of the right hemidiaphragm, and opacification of the major fissure on the right. ASSESSMENT/PLAN: The primary problem requiring critical attention is acute on chronic hypercarbic respiratory failure. The patient will be moved to the intensive care unit for initiation of mechanical ventilatory support in an effort to improve ventilation. We will then repeat arterial blood gases. It may be necessary for his tracheostomy tube to be changed to one which has a balloon, which would allow for a closed circuit. Pulmonary edema: Reviewing the notes, the patient refused dialysis after a short period of time resulting in removal of only 1.2 liters of fluid, where he normally has 3 liters of fluid removed. This may have resulted in some of the interstitial edema, which would result in a decreased lung compliance and increase in pCO2. Chronic renal failure: The patient may need additional dialysis depending on his response to the above interventions. Deep vein thrombosis (DVT) prophylaxis is being addressed with heparin. Ulcer prophylaxis is being addressed with Protonix. One hour and 37 minutes was spent in the provision of bedside critical care and coordination excluding procedure times.
[2020-10-06] MEDS: IPRATROPIUM 0.5MG/ALBUTEROL 2.5MG INH SOL UD 3ML (DUONEB) NEB PRN (17:26)
--- NOTE | 2020-10-06 18:01 | IPNPDOC ---
Text Note Date of Service The patient was seen on 10/06/20. NOTE SUBJECTIVE: -Stable on vent with corrected respiratory acidosis -Awake, alert, no complaints. Appears depressed OBJECTIVE: VITAL SIGNS: Please see below. Afebrile. No hypoxemia GENERAL: NA, somnolent HEENT: PERRLA, EOMI CARDIOVASCULAR: Normal S1, S2. No M/R/G RESPIRATORY: trach in place, on ventilator, diminished per baseline anteriorly, otherwise breathing comfortably ABDOMINAL: obese abdomen, soft, non tender EXTREMITIES: chronic zhen stasis dermatitis, heel float boots NEUROLOGICAL: AAO x 3, no focal neuro deficit PSYCHOLOGICAL: calm, cooperative but at times tearful Labs: WBC 6.5 Hgb 10 platelets 141 Na 134 K 5.1 Cr 4.71 ASSESSMENT: 50 year old male with multiple comorbidities including ESRD on hemodialysis, tracheal stenosis pending placement to facility who is now being transferred to the ICU in the setting of newly noted somnolence with respiratory acidosis with hypercarbia likely 2/2 OHS and possible volume component though he is fairly compensated per his baseline. PLAN: #Chronic respiratory failure status post tracheostomy, with newly noted hyp ercarbia -Trach replacement/exchange 09/11/20 -C/w resp treatments, trach care -In ICU on vent -consulted Dr. Yang, appreciate recs -continue duonebs and albuterol PRN -CXR without newly noted pathology -covid-19 negative #ESRD on hemodialysis -C/w Wednesday, , Wednesday HD schedule #Hypotension. -C/w midodrine on dialysis days. -Dr Curtis reduced his amlodipine for hemodynamic reserve during HD #Anemia. -Stable, monitor and transfuse if indicated. -hemoglobin level is optimal -Was receiving Aranesp 100 mcg once a week with dialysis until recently #Chronically bedridden. -[facility] #Chronic kidney disease, mineral bone disease -Renvela and Velphoro dose #DVT px -Teds, scds.Heparin Dispo: ICU VS,Fishbone, I+O VS, Fishbone, I+O Laboratory Tests 10/06/20 08:46 10/06/20 10:41 Vital Signs Date Time Temp Pulse Resp B/P (MAP) Pulse Ox O2 Delivery O2 Flow Rate FiO2 10/06/20 16:00 99.6 70 14 146/65 (92) 97 Ventilator 10/06/20 16:00 30 10/05/20 14:00 5.0 I&O- Last 24 Hours up to 6 AM 10/06/20 05:59 Intake Total 445 ml Output Total 1200 ml Balance -755 ml ELTON BARAJAS MD Oct 06, 2020 18:01
--- NOTE | 2020-10-06 20:45 | IPN ---
PROGRESS NOTE DATE: 10/06/2020 SUBJECTIVE: Mr. Richard is seen this morning on his bedside. Yesterday, his dialysis was terminated after about two hours of treatment due to him not feeling well. He was noticed to have hypercarbia on his blood gas and has been placed on the ventilator since yesterday. He did not have any fever or chills. Chest x-ray did not show any significant change, and he does have some increased markings but no infiltrates or outward pulmonary edema. He is oxygenating well on 30% FIO2. PHYSICAL EXAMINATION: VITALS: Temperature 98.4 degrees Fahrenheit, heart rate 68 per minute, respiratory rate 12 per minute, blood pressure 143/66 mmHg, oxygen saturation 95% on the ventilator. HEENT: Head is atraumatic. Tracheostomy is in place. HEART: Heart sounds are regular. LUNGS: Good bilateral air entry. ABDOMEN: Soft, obese and nontender. Bowel sounds are normal. EXTREMITIES: Without any cyanosis or clubbing. His right arm AV fistula is patent. NEUROLOGIC: He is awake and responds to questions. He has chronic bilateral lower extremity paresis due to severe spinal stenosis. LABORATORY DATA: Today's labs show WBC 6.5, hemoglobin 10.0, hematocrit 32.5, platelets 141,000. Sodium 134, potassium 5.1, CO2 23, BUN 34, creatinine 4.71, glucose 88 and calcium 8.8. Blood gas today showed pH 7.39, pCO2 46.9 and pO2 125, bicarb 26.5. PROBLEMS: 1. Respiratory failure: I feel that this is most likely decompensated obesity associated hypoventilation and obstructive sleep apnea. He did have elevated CO2 yesterday, which has improved on the ventilator. We will also try to optimize his volume status with hemodialysis tomorrow. 2. End-stage renal disease: Patient did receive about two hours of dialysis yesterday, which was stopped early due to him not feeling well. We will try to dialyze him flatwork tier tomorrow. 3. Hypotension: He did have hypotension during dialysis yesterday and I have cut down his Amlodipine dose. We will monitor him today and hold his Amlodipine in the morning if his blood pressure is on the lower end. We will try to aggressively remove fluid and then give him his antihypertensive afterwards if needed. 4. Anemia: His anemia has been stable and no urgent intervention is needed.
[2020-10-06] MEDS: SENOKOT S TAB PO SCH (21:30)
[2020-10-06] MEDS: PRAMIPEXOLE (MIRAPEX) 0.125 MG TAB PO SCH (21:30)
--- NOTE | 2020-10-06 22:29 | CCN ---
CRITICAL CARE NOTE DATE: 10/06/2020 SUBJECTIVE: The patient was seen in the intensive care unit mechanically ventilated via tracheostomy, more responsive and interactive. OBJECTIVE: VITAL SIGNS: His temperature is 98.4, pulse rate 62, respirations 12/12 delivered, blood pressure 143/60. I and O for the past 24 hours 445 in, 1200 out; since midnight 0 out, 20 mL in. GENERAL APPEARANCE: At bedside, he is ill-appearing. HEENT: His mucosa is pink. Tracheostomy site is clean. HEART: Sounds are regular. LUNGS: Breath sounds diminished in the bases, but reasonable bilateral air exchange. ABDOMEN: Soft. EXTREMITIES: Muscle wasting. Pulses are palpable x4. DIAGNOSTIC STUDIES: His white cell count is 6.5, hemoglobin 10, hematocrit 32.5, platelet count 141,000. The electrolytes are sodium 134, potassium 5.1, chloride 102, CO2 of 23, BUN 34, creatinine 4.71, glucose 88. Arterial blood gases showed a pH of 7.39, pCO2 of 46, pO2 of 125. This on a pressure support mode of ventilation peak pressure 14 over PEEP of 5 on 30% FiO2. No further imaging has been performed. ASSESSMENT AND PLAN: The primarily problem requiring critical attention is acute on chronic respiratory failure. Arterial blood gases are improved. The etiology of his hypercarbia is unclear, possibly medication suppression of respiratory drive versus decreased lung compliance from pulmonary edema. Will continue with mechanical ventilatory support. Chronic renal failure: Dialysis is scheduled for tomorrow. This should address his fluid status. Anxiety: It may be necessary to reduce his dose of benzodiazepines if these are found to be related to excess sedation and decreased respiratory drive. Deep vein thrombosis (DVT) prophylaxis is being addressed with heparin 5000 every eight hours. Ulcer prophylaxis being addressed with Protonix. The patient's condition is critical. Prognosis is guarded. One hour and 9 minutes were spent in the provision of bedside critical care and coordination exclusive of any procedure time.
[2020-10-07] VITALS (16 sets, daily range): BP systolic 111–162; BP diastolic 55–71
[2020-10-07] MEDS: guaiFENesin SYRUP 200 MG/10 ML UDC PO SCH ×4 (00:29→18:54)
[2020-10-07] MEDS: IPRATROPIUM 0.5MG/ALBUTEROL 2.5MG INH SOL UD 3ML (DUONEB) NEB SCH ×6 (03:21→23:34)
[2020-10-07] MEDS: HEPARIN SOD (PORCINE) 5000UNITS/ML 1ML VIAL/SYRINGE SQ SCH ×3 (06:26→19:37)
[2020-10-07] MEDS: (RENVELA) SEVELAMER **CARBONate** 800 MG TAB PO SCH ×3 (08:00→18:54)
--- NOTE | 2020-10-07 08:02 | REP ---
INDICATION: pulm edema. COMPARISON: Portable chest studies dated 09/08/2020, 09/11/2020 and 10/05/2020. TECHNIQUE: Single AP view of the chest performed portably with the patient upright. FINDINGS: There are bilateral interstitial and alveolar infiltrates, unchanged. There are no pleural effusions. There is cardiomegaly, unchanged. There is a tracheostomy, unchanged. The alfonso, mediastinum, and skeletal structures are unchanged. IMPRESSION: No interval change. <Electronically signed by Last Caldwell > 10/07/20 [id number]
[2020-10-07 09:37] LABS: HEMATOCRIT 31.2 % (42.0-52.0); HEMOGLOBIN 9.7 g/dl (13.5-17.5); MEAN CORPUSCULAR HEMOGLOBIN 30.4 pg (27.0-33.0); MEAN CORPUSCULAR HGB CONC 31.1 g/dl (32.0-36.5); MEAN CORPUSCULAR VOLUME 97.8 fl (80.0-96.0); PLATELET COUNT, AUTOMATED 146 10^3/uL (150-450); RED BLOOD COUNT 3.19 10^6/uL (4.30-6.10); WHITE BLOOD COUNT 6.1 10^3/uL (4.0-10.0)
[2020-10-07 09:59] LABS: CALCIUM LEVEL 9.1 MG/DL (8.5-10.1); CREATININE FOR GFR 5.91 MG/DL (0.70-1.30); GLOMERULAR FILTRATION RATE 10.9 (>60); POTASSIUM SERUM 4.7 MEQ/L (3.5-5.1)
--- NOTE | 2020-10-07 11:23 | IPNPDOC ---
Text Note Date of Service The patient was seen on 10/07/20. NOTE SUBJECTIVE: -Awake, alert, no complaints. -Afebrile, normotensive, has dialysis this morning OBJECTIVE: VITAL SIGNS: Please see below. Afebrile. No hypoxemia GENERAL: NA, somnolent HEENT: PERRLA, EOMI CARDIOVASCULAR: Normal S1, S2. No M/R/G RESPIRATORY: trach in place, on ventilator, diminished, otherwise breathing comfortably ABDOMINAL: obese abdomen, soft, non tender EXTREMITIES: chronic zhen stasis dermatitis, heel float boots NEUROLOGICAL: AAO x 3, no focal neuro deficit PSYCHOLOGICAL: calm, cooperative but at times tearful Labs: pending AM labs ASSESSMENT: 50 year old male with multiple comorbidities including ESRD on hemodialysis, tracheal stenosis pending placement to facility who is now being transferred to the ICU in the setting of newly noted somnolence with respiratory acidosis with hypercarbia without a clear precipitant likely 2/2 OHS and possible volume component though he was fairly compensated per his baseline and taking some centrally depressing psychotropes and pain medications that are chronic for him. PLAN: #Chronic respiratory failure status post tracheostomy, with newly noted hypercarbia -Trach replacement/exchange 09/11/20 -C/w resp treatments, trach care -In ICU on vent -consulted Dr. Yang, appreciate recs -continue duonebs and albuterol PRN -CXR without newly noted pathology -covid-19 negative #ESRD on hemodialysis -Is on Wednesday, , Wednesday HD schedule. However getting dialysis today per Dr. Curtis -Nephrology onboard #Hypotension. -C/w midodrine on dialysis days. -Dr Curtis reduced his amlodipine for hemodynamic reserve during HD. Doing well. #Anemia. -Stable, monitor and transfuse if indicated. -hemoglobin level is optimal -Was receiving Aranesp 100 mcg once a week with dialysis until recently #Chronically bedridden. -Awaiting placement to shelter when medically stable #Chronic kidney disease, mineral bone disease -Renvela and Velphoro dose #DVT px -Teds, scds.Heparin Dispo: ICU VS,Fishbone, I+O VS, Fishbone, I+O Laboratory Tests 10/06/20 08:46 10/06/20 10:41 Vital Signs Date Time Temp Pulse Resp B/P (MAP) Pulse Ox O2 Delivery O2 Flow Rate FiO2 10/07/20 06:00 66 18 133/63 (86) 95 Ventilator 30 10/07/20 04:00 98.7 10/05/20 14:00 5.0 I&O- Last 24 Hours up to 6 AM 10/07/20 05:59 Intake Total 350 ml Output Total 0 ml Balance 350 ml ELTON BARAJAS MD Oct 07, 2020 07:35
[2020-10-07 12:09] LABS: PTH INTACT 283.6 PG/ML (18.5-88.0)
--- NOTE | 2020-10-07 12:45 | CCN ---
CRITICAL CARE NOTE DATE: 10/07/2020 SUBJECTIVE: The patient remains on mechanical ventilation. Dialysis is underway today. At bedside, his temperature is 98.7, blood pressure is 133/63, saturations are 96% on 30% oxygen. Intake and output for the past 24 hours 350 in, 0 out. At bedside, he is ill appearing. Tracheostomy site is clean. Chest is symmetric. Breath sounds are diminished. Heart sounds regular. Abdomen is soft. Extremities shows pulses times four. DIAGNOSTIC STUDIES: Sodium is 135, potassium is 4.7, chloride 100, Co2 26, BUN 45, creatinine 5.91, glucose 96. His white cell count is 6.1, hemoglobin 9.7, hematocrit 31.2, platelet count 146,000. Chest x-ray was reviewed. Bilateral interstitial infiltrates are persistent. Cardiomegaly and tracheostomy site is noted unchanged. ASSESSMENT: The primary problem requiring critical attention is acute on chronic respiratory failure. His gas exchange is about at his usual baseline. The patient has a "home vent". We will work with respiratory therapy to transition him to this device. Chronic renal failure. Dialysis is being performed today. Other medical issues are being addressed by the primary service. His condition remains critical. PROGNOSIS: Guarded. 67 minutes were spent on the provision at bedside and critical care coordination.
[2020-10-07] MEDS: SERTRALINE HCL 50 MG TAB PO SCH (13:44)
[2020-10-07] MEDS: AMIODARONE 200 MG TAB (PACERONE) PO SCH (13:44)
[2020-10-07] MEDS: levETIRAcetam 250MG TABLET (KEPPRA) PO SCH (13:45)
[2020-10-07] MEDS: PANTOPRAZOLE 40MG TAB (PROTONIX) PO SCH (13:46)
[2020-10-07] MEDS: IPRATROPIUM 0.5MG/ALBUTEROL 2.5MG INH SOL UD 3ML (DUONEB) NEB PRN (16:50)
[2020-10-07] MEDS: SENOKOT S TAB PO SCH (19:36)
[2020-10-07] MEDS: ONDANSETRON 4 MG TAB PO PRN (19:36)
[2020-10-07] MEDS: PRAMIPEXOLE (MIRAPEX) 0.125 MG TAB PO SCH (19:36)
[2020-10-08] VITALS (10 sets, daily range): BP systolic 95–154; BP diastolic 47–70
[2020-10-08] MEDS: ALPRAZolam 0.25 MG TAB PO PRN ×3 (01:16→21:56)
[2020-10-08] MEDS: oxyCODONE 5MG TAB PO PRN ×3 (01:17→21:57)
[2020-10-08] MEDS: guaiFENesin SYRUP 200 MG/10 ML UDC PO SCH ×4 (01:17→18:06)
[2020-10-08] MEDS: IPRATROPIUM 0.5MG/ALBUTEROL 2.5MG INH SOL UD 3ML (DUONEB) NEB SCH ×6 (03:53→23:03)
[2020-10-08 04:29] LABS: HEMATOCRIT 31.1 % (42.0-52.0); HEMOGLOBIN 9.8 g/dl (13.5-17.5); MEAN CORPUSCULAR HGB CONC 31.5 g/dl (32.0-36.5); MEAN CORPUSCULAR VOLUME 98.4 fl (80.0-96.0); PLATELET COUNT, AUTOMATED 132 10^3/uL (150-450); RED BLOOD COUNT 3.16 10^6/uL (4.30-6.10); WHITE BLOOD COUNT 7.7 10^3/uL (4.0-10.0)
[2020-10-08 04:52] LABS: CREATININE FOR GFR 4.13 MG/DL (0.70-1.30); GLOMERULAR FILTRATION RATE 16.5 (>60); POTASSIUM SERUM 3.6 MEQ/L (3.5-5.1)
[2020-10-08] MEDS: HEPARIN SOD (PORCINE) 5000UNITS/ML 1ML VIAL/SYRINGE SQ SCH ×3 (06:27→21:56)
[2020-10-08] MEDS: PANTOPRAZOLE 40MG TAB (PROTONIX) PO SCH (08:17)
[2020-10-08] MEDS: levETIRAcetam 250MG TABLET (KEPPRA) PO SCH (08:17)
[2020-10-08] MEDS: AMIODARONE 200 MG TAB (PACERONE) PO SCH (08:17)
[2020-10-08] MEDS: SERTRALINE HCL 50 MG TAB PO SCH (08:18)
[2020-10-08] MEDS: (RENVELA) SEVELAMER **CARBONate** 800 MG TAB PO SCH ×3 (08:19→18:06)
--- NOTE | 2020-10-08 09:36 | CCN ---
CRITICAL CARE NOTE DATE: 10/08/2020 SUBJECTIVE: The patient is seen in the Intensive Care Unit on mechanical ventilation. He tolerated dialysis reasonably well yesterday and his minute ventilations are improved on the ventilator. OBJECTIVE: VITAL SIGNS: Temperature 97, pulse rate 71, respirations 22, blood pressure 125/61, oxygen saturation 98% with 30% FiO2. Input and output for the past 24 hours: 840 in, 4 liters out. GENERAL: At bedside, he is ill-appearing, responsive. HEENT: Oral mucosa is pink. NECK: Supple with tracheostomy site clean. LUNGS: Breath sounds diminished. ABDOMEN: Soft and obese. EXTREMITIES: Cool. Pulses are palpable. DIAGNOSTIC STUDIES: His sodium is 134, potassium 3.6, chloride 98, CO2 30, BUN 23, creatinine 4.12, glucose 113, white cell count is 7.7, hemoglobin 9.8, hematocrit 31.1, platelet count 132,000. Chest imaging shows essentially no change. ASSESSMENT AND PLAN: 1. The primary problem requiring critical attention is [id number] respiratory failure. We will decrease his pressure support via the ventilator and give him opportunities to be off to a trach collar today. We will encourage time off to the trach collar. 2. Chronic renal failure. He tolerated dialysis well. He had 4 liters removed and his electrolytes are good. 3. Multiple other medical issues are being managed by the primary service. His condition remains critical though improving. Should he be able to come off to a trach collar, he can be transferred out of ICU. Forty-seven minutes were spent in the provision of bedside critical care and coordination excluding any procedure time. MARGO
--- NOTE | 2020-10-08 19:09 | IPN ---
PROGRESS NOTE DATE: 10/08/2020 SUBJECTIVE: Mr. Richard is seen this morning at his bedside in the intensive care unit. He remains on the ventilator, but feels better compared to yesterday. He was dialyzed yesterday and we removed about 4 liters of fluid. The patient has been able to eat even while he is on the ventilator via tracheostomy. He denies any fever or chills. OBJECTIVE: VITAL SIGNS: Temperature 97 degrees Fahrenheit, heart rate 70 per minute, and respiratory rate 20 per minute. Blood pressure 147/67 mmHg and oxygen saturation 96% on the ventilator. HEENT: His head is atraumatic. Tracheostomy is in place and currently hooked to the ventilator. HEART: Sounds are regular. LUNGS: Have good bilateral air entry. ABDOMEN: Obese, soft, and nontender. EXTREMITIES: Without any cyanosis or clubbing. Right arm AV fistula is patent. NEUROLOGIC: He is at his baseline mentation. He has bilateral lower extremity plegia due to severe spinal stenosis. LABORATORY DATA: Today's labs show WBC count 7.7, hemoglobin 9.8, hematocrit 31, platelets 132,000. Sodium 134, potassium 3.6, CO2 of 30, BUN 23, and creatinine 4.13. Calcium 9.0. PROBLEMS: 1. End-stage renal disease. The patient was dialyzed yesterday as he had only partial dialysis on Wednesday. We plan to dialyze him again tomorrow. 2. Respiratory failure most likely a combination of factors. He was probably somewhat volume overloaded and his respiratory status has improved following 4 liters of fluid removal yesterday. We will try to remove another 4 liters with dialysis tomorrow. 3. Hypertension. Blood pressure is much better today. I will recommend to hold antihypertensive medications before dialysis. We have cut down his amlodipine dose to 5 mg daily anyway due to recurrent hypertension during dialysis. 4. Anemia. At present, his anemia is stable and we will continue with Aranesp once a week during hemodialysis. 5. Congestive heart failure. Volume status seems reasonably well compensated at present. Four liter fluid removal is planned for tomorrow with hemodialysis.
[2020-10-08] MEDS: PRAMIPEXOLE (MIRAPEX) 0.125 MG TAB PO SCH (21:57)
[2020-10-08] MEDS: SENOKOT S TAB PO SCH (21:58)
[2020-10-09] VITALS (11 sets, daily range): BP systolic 106–150; BP diastolic 54–67; O2SAT 96–97
[2020-10-09] MEDS: guaiFENesin SYRUP 200 MG/10 ML UDC PO SCH ×4 (00:24→18:10)
[2020-10-09] MEDS: IPRATROPIUM 0.5MG/ALBUTEROL 2.5MG INH SOL UD 3ML (DUONEB) NEB SCH ×5 (02:59→19:35)
[2020-10-09] MEDS: HEPARIN SOD (PORCINE) 5000UNITS/ML 1ML VIAL/SYRINGE SQ SCH ×3 (06:24→21:27)
[2020-10-09 08:41] LABS: HEMATOCRIT 32.1 % (42.0-52.0); HEMOGLOBIN 9.7 g/dl (13.5-17.5); MEAN CORPUSCULAR HEMOGLOBIN 30.7 pg (27.0-33.0); MEAN CORPUSCULAR HGB CONC 30.2 g/dl (32.0-36.5); MEAN CORPUSCULAR VOLUME 101.6 fl (80.0-96.0); PLATELET COUNT, AUTOMATED 141 10^3/uL (150-450); RED BLOOD COUNT 3.16 10^6/uL (4.30-6.10); WHITE BLOOD COUNT 6.2 10^3/uL (4.0-10.0)
[2020-10-09 09:02] LABS: ALBUMIN 2.2 GM/DL (3.2-5.2); CALCIUM LEVEL 8.7 MG/DL (8.5-10.1); CREATININE FOR GFR 5.35 MG/DL (0.70-1.30); GLOMERULAR FILTRATION RATE 12.3 (>60); POTASSIUM SERUM 4.2 MEQ/L (3.5-5.1)
[2020-10-09] MEDS: CHLORASEPTIC SPRAY MT PRN ×3 (09:33→21:25)
[2020-10-09] MEDS: (RENVELA) SEVELAMER **CARBONate** 800 MG TAB PO SCH ×3 (09:56→18:10)
[2020-10-09] MEDS: levETIRAcetam 250MG TABLET (KEPPRA) PO SCH (09:56)
[2020-10-09] MEDS: SERTRALINE HCL 50 MG TAB PO SCH (09:57)
[2020-10-09] MEDS: PANTOPRAZOLE 40MG TAB (PROTONIX) PO SCH (09:57)
[2020-10-09] MEDS: AMIODARONE 200 MG TAB (PACERONE) PO SCH (09:57)
--- NOTE | 2020-10-09 12:08 | IPNPDOC ---
Text Note Date of Service The patient was seen on 10/08/20. NOTE SUBJECTIVE: Awake, alert, complaining of sore throat. OBJECTIVE: VITAL SIGNS: Please see below. Afebrile. No hypoxemia GENERAL: NA, somnolent HEENT: PERRLA, EOMI CARDIOVASCULAR: Normal S1, S2. No M/R/G RESPIRATORY: trach in place, on ventilator, diminished, otherwise breathing comfortably ABDOMINAL: obese abdomen, soft, non tender EXTREMITIES: chronic zhen stasis dermatitis, heel float boots NEUROLOGICAL: AAO x 3, no focal neuro deficit PSYCHOLOGICAL: calm, cooperative but at times tearful Labs: pending AM labs ASSESSMENT and PLAN: 50 year old male with multiple comorbidities including ESRD on hemodialysis, tracheal stenosis pending placement to facility who is now being transferred to the ICU in the setting of newly noted somnolence with respiratory acidosis with hypercarbia without a clear precipitant likely 2/2 OHS and possible volume component though he was fairly compensated per his baseline and taking some centrally depressing psychotropes and pain medications that are chronic for him. Acute on Chronic respiratory failure with hypoxia and hypercarbia with acute metabolic encephalopathy due to hypercarbia. tracheostomy in place now resolved. Trach replacement/exchange 09/11/20 C/w resp treatments, trach care In ICU on vent consulted Dr. Yang, appreciate recs continue duonebs and albuterol PRN CXR without newly noted pathology covid-19 negative Chronic respiratory failure secondary to suspected restrictive lung disease from his obesity, Chronically has tracheostomy Severe spinal stenosis chronic pain on oxycodone ESRD on hemodialysis Is on Wednesday, , Wednesday HD schedule. However getting dialysis today per Dr. Curtis Nephrology onboard Morbid obesity/ NISA has tracheostomy GERD PPI Depression/ Anxiety on sertraline, alprazolam Paroxysmal Atrial fibrillation on amiodarone Seizure disorder on keppra Hypotension. C/w midodrine on dialysis days. Anemia. Stable, monitor and transfuse if indicated. hemoglobin level is optimal Was receiving Aranesp 100 mcg once a week with dialysis until recently Chronically bedridden. [facility] medically [facility] Mineral bone disease Renvela and Velphoro dose Restless legs pramipexole. DVT px Teds, scds.Heparin VS,Fishbone, I+O VS, Fishbone, I+O Laboratory Tests 10/08/20 04:02 Vital Signs Date Time Temp Pulse Resp B/P (MAP) Pulse Ox O2 Delivery O2 Flow Rate FiO2 10/08/20 23:11 5.0 35 10/08/20 22:27 17 10/08/20 22:00 68 154/70 (98) 97 Trach Collar 10/08/20 20:00 96.5 I&O- Last 24 Hours up to 6 AM 10/08/20 07:00 Intake Total 1080 ml Output Total 4000 ml Balance -2920 ml ANTALY CLEARY MD Oct 08, 2020 23:56
--- NOTE | 2020-10-09 12:42 | IPN ---
PROGRESS NOTE DATE: 10/09/2020 SUBJECTIVE: Mr. Richard is seen this morning on his bedside. We started hemodialysis safe expert, however, his AV fistula and right arm infiltrate d after about an hour of dialysis. Dialysis was at this point terminated. He remains on the ventilator via his tracheostomy. He denies any other complaints at present. He does have some pain in his right arm at the site of infiltration. PHYSICAL EXAMINATION: VITALS: Temperature 98.3 degrees Fahrenheit, heart rate 68 per minute, respiratory rate 20 per minute, blood pressure 150/65 mmHg, oxygen saturation 98% on the ventilator. HEENT: Head is atraumatic. Tracheostomy is in place and currently hooked to the ventilator. HEART: Heart sounds are regular. LUNGS: Good bilateral air entry. ABDOMEN: Soft, obese and nontender. Bowel sounds are normal. EXTREMITIES: Without any cyanosis or clubbing. His right arm AV fistula is patent and he is currently holding an ice pack on his right arm where he infiltrated his AV fistula. LABORATORY DATA: Today's labs show WBC 6.2, hemoglobin 9.7, hematocrit 32, platelets 141,000. Sodium 137, potassium 4.2, CO2 28, BUN 32, creatinine 5.35, glucose 108 and calcium 8.7. Phosphorus level is down to 6.0. PROBLEMS: 1. End-stage renal disease: Patient has been dialysis dependent and received only a short period of dialysis today before infiltrating his AV fistula. We plan to dialyze him again tomorrow. 2. Respiratory failure: Most likely multifactorial. He has obstructive sleep apnea and obesity associated hypoventilation. In addition, he has tracheal stenosis due to chronic tracheostomy. He was probably only mildly volume overloaded. Will plan to remove about 4 liters of fluid with the next dialysis. Today only about half a liter of fluid was removed before his AV fistula infiltrated. 3. Anemia: At present his anemia is stable and does not need any urgent intervention. He receives Aranesp once a week and I have already increased the dose to 300 mcg. 4. Hypertension: His blood pressure is only slightly elevated. I will leave him without any antihypertensive medications as he becomes quite hypotensive during dialysis. He will be dialyzed tomorrow.
--- NOTE | 2020-10-09 16:47 | CCN ---
CRITICAL CARE NOTE DATE: 10/09/2020 The patient is seen in the intensive care unit intubated, mechanically ventilated, critically ill. Temperature 98.3, pulse rate 60, blood pressure 155/51, respiratory rate is 20. Intake and output for the past 24 hours: 780 in, 0 out, since midnight 480 in, 0 out. Previous dialysis removed 4 liters. At bedside, he is ill appearing. His neck is supple. Tracheostomy site is clean. Heart sounds regular. Breath sounds diminished. Abdomen soft and obese. Extremities: Pulses times four. DIAGNOSTIC STUDIES: His white cell count is down slightly at 6.2, hemoglobin is stable at 9.7, hematocrit 32.1, platelet count is 141,000. Electrolytes are sodium 137, potassium 4.2, chloride 99, CO2 of 28, BUN 32, creatinine is up at 535, glucose 108. His calcium is 8.7, phosphorus is 6. Albumin 2.2. No new chest imaging was performed this morning. On medications review, he is receiving amiodarone 200 mg a day, Protonix 40 mg a day, Xanax 0.25 mg every 6 hours, oxycodone 10 mg every 4 hours as needed, DuoNeb, Keppra 500 mg a day, Tessalon Perles, 650 mg of Tylenol, Zofran 4 mg a day, heparin 5000 every 8, guaifenesin 5 mg every 6, Senokot two at bedtime, Zoloft 150 mg a day, Aricept 200 mg at bedtime. The primary problem requiring critical attention is acute on chronic respiratory failure. The patient was able to come off mechanical ventilation to a trach collar for quite some time yesterday. He became dyspneic last evening, and the ventilator was replaced. I have reviewed the case with the patient and nurses in the room and encouraged remaining off mechanical ventilation. Chronic renal failure: The patient tolerated withdrawal of 4 liters at his previous dialysis. His electrolytes are good at this point. Multiple other medical issues are being managed by the primary service. His conditions remains critical. Prognosis is fair. He does appear have responded, and if he is able to remain off of mechanical ventilation to trach collar, he could be transferred out from the intensive care unit. Forty-four minutes was spent in the provision of bedside critical care and coordination, excluding procedure time. MARGO
[2020-10-09] MEDS: ALPRAZolam 0.25 MG TAB PO PRN (21:26)
[2020-10-09] MEDS: PRAMIPEXOLE (MIRAPEX) 0.125 MG TAB PO SCH (21:26)
[2020-10-09] MEDS: SENOKOT S TAB PO SCH (21:26)
[2020-10-09] MEDS: oxyCODONE 5MG TAB PO PRN (21:27)
[2020-10-10] VITALS (24 sets, daily range): BP systolic 101–145; BP diastolic 50–65; O2SAT 94–96
[2020-10-10] MEDS: IPRATROPIUM 0.5MG/ALBUTEROL 2.5MG INH SOL UD 3ML (DUONEB) NEB SCH ×6 (00:06→19:43)
[2020-10-10] MEDS: guaiFENesin SYRUP 200 MG/10 ML UDC PO SCH ×5 (00:53→23:23)
[2020-10-10] MEDS: HEPARIN SOD (PORCINE) 5000UNITS/ML 1ML VIAL/SYRINGE SQ SCH ×3 (06:01→21:45)
[2020-10-10] MEDS: (RENVELA) SEVELAMER **CARBONate** 800 MG TAB PO SCH ×4 (08:00→17:11)
[2020-10-10] MEDS: SERTRALINE HCL 50 MG TAB PO SCH (08:06)
[2020-10-10] MEDS: PANTOPRAZOLE 40MG TAB (PROTONIX) PO SCH (08:06)
[2020-10-10] MEDS: levETIRAcetam 250MG TABLET (KEPPRA) PO SCH (08:06)
[2020-10-10] MEDS: AMIODARONE 200 MG TAB (PACERONE) PO SCH (08:06)
[2020-10-10] MEDS: CHLORASEPTIC SPRAY MT PRN ×3 (09:49→21:46)
[2020-10-10 10:16] LABS: HEMATOCRIT 31.9 % (42.0-52.0); HEMOGLOBIN 9.7 g/dl (13.5-17.5); MEAN CORPUSCULAR HEMOGLOBIN 30.4 pg (27.0-33.0); MEAN CORPUSCULAR HGB CONC 30.4 g/dl (32.0-36.5); PLATELET COUNT, AUTOMATED 155 10^3/uL (150-450); RED BLOOD COUNT 3.19 10^6/uL (4.30-6.10); WHITE BLOOD COUNT 7.2 10^3/uL (4.0-10.0)
[2020-10-10 10:37] LABS: CALCIUM LEVEL 8.8 MG/DL (8.5-10.1); CREATININE FOR GFR 5.79 MG/DL (0.70-1.30); GLOMERULAR FILTRATION RATE 11.2 (>60); POTASSIUM SERUM 3.8 MEQ/L (3.5-5.1)
[2020-10-10] MEDS: DARBEPOETIN 200MCG/0.4ML *DIALYSIS* SYRINGE (J0882 PER 1MCG) IV SCH (11:50)
--- NOTE | 2020-10-10 12:28 | IPN ---
PROGRESS NOTE DATE: 10/10/2020 SUBJECTIVE: Mr. Richard is seen this morning on his bedside. He is being dialyzed again today. Yesterday, he developed infiltration on his AV fistula and dialysis was terminated after only about 45 minutes. He has been volume overloaded and he is currently on the ventilator due to respiratory failure. Will try to remove about 4 liters of fluid today. His AV fistula in the right arm is working. PHYSICAL EXAMINATION: VITAL SIGNS: Temperature 98.2 degrees Fahrenheit, heart rate is 70 per minute and respiratory rate is 18 per minute. Blood pressure is 130/59 mmHg and oxygen saturation 96% on room air. HEAD AND NECK: His head is atraumatic. Tracheostomy is in place and currently hooked to the ventilator. Neck veins cannot be assessed. HEART: Heart sounds are distant and regular. LUNGS: Good bilateral air entry. ABDOMEN: Obese, soft and nontender. Bowel sounds are present. EXTREMITIES: Without any cyanosis or clubbing. Bilateral lower extremity plegia is secondary to severe spinal stenosis. LABORATORY DATA: Today's labs showed a WBC of 7.2, hemoglobin 9.7 and hematocrit 31.9. Platelets are 155,000. Sodium is 136, potassium is 3.8, CO2 26, BUN 37 and creatinine 5.79. Calcium level is 8.8. PROBLEMS: 1. Endstage renal disease. Patient is being dialyzed and he is tolerating dialysis treatment very well. 2. Respiratory failure related to chronic obstructive sleep apnea, COPD, morbid obesity and some volume overload. We are going to remove about 4 liters of fluid today. I hope that after dialysis and fluid removal he can probably be weaned off the ventilator and go on trach collar. 3. Anemia. His anemia is stable at present and he will get Aranesp 200 mcg once a week. 4. Nutrition. The patient is able to eat while he is still on the ventilator with tracheostomy. He has chronic malnutrition and albumin level was only 2.2 yesterday. 5. Hypertension. His blood pressure medications have been cut down significantly due to recurrent hypotension during dialysis.
--- NOTE | 2020-10-10 12:51 | IPNPDOC ---
Text Note Date of Service The patient was seen on 10/09/20. NOTE SUBJECTIVE: Awake, alert, no complains remain on ventilator. OBJECTIVE: VITAL SIGNS: Please see below. Afebrile. No hypoxemia GENERAL: NA, somnolent HEENT: PERRLA, EOMI CARDIOVASCULAR: Normal S1, S2. No M/R/G RESPIRATORY: trach in place, on ventilator, diminished, otherwise breathing comfortably ABDOMINAL: obese abdomen, soft, non tender EXTREMITIES: chronic zhen stasis dermatitis, heel float boots NEUROLOGICAL: AAO x 3, no focal neuro deficit PSYCHOLOGICAL: calm, cooperative but at times tearful Labs: pending AM labs ASSESSMENT and PLAN: 50 year old male with multiple comorbidities including ESRD on hemodialysis, tracheal stenosis pending placement to facility who is now being transferred to the ICU in the setting of newly noted somnolence with respiratory acidosis with hypercarbia without a clear precipitant likely 2/2 OHS and possible volume component though he was fairly compensated per his baseline and taking some centrally depressing psychotropes and pain medications that are chronic for him. Acute on Chronic respiratory failure with hypoxia and hypercarbia with acute metabolic encephalopathy due to hypercarbia. tracheostomy in place now resolved. Trach replacement/exchange 09/11/20 C/w resp treatments, trach care In ICU on vent consulted Dr. Yang, appreciate recs continue duonebs and albuterol PRN CXR without newly noted pathology covid-19 negative failed weaning trial. Chronic respiratory failure secondary to suspected restrictive lung disease from his obesity, Chronically has tracheostomy Severe spinal stenosis chronic pain on oxycodone ESRD on hemodialysis Is on Wednesday, , Wednesday HD schedule. However getting dialysis today per Dr. [facility] onboard Morbid obesity/ NISA has tracheostomy GERD PPI Depression/ Anxiety on sertraline, alprazolam Paroxysmal Atrial fibrillation on amiodarone Seizure disorder on keppra Hypotension. C/w midodrine on dialysis days. Anemia. Stable, monitor and transfuse if indicated. hemoglobin level is optimal Was receiving Aranesp 100 mcg once a week with dialysis until recently Chronically bedridden. Awaiting placement to assisted with possibly shelter vent. 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 DVT px Teds, scds.Heparin VS,Fishbone, I+O VS, Fishbone, I+O Laboratory Tests 10/09/20 07:57 Vital Signs Date Time Temp Pulse Resp B/P (MAP) Pulse Ox O2 Delivery O2 Flow Rate FiO2 10/09/20 10:11 30 10/09/20 08:00 98.3 63 20 150/65 (93) 98 Ventilator 10/09/20 00:00 5.0 I&O- Last 24 Hours up to 6 AM 10/09/20 06:00 Intake Total 660 ml Output Total 0 ml Balance 660 ml NATALY CLEARY MD Oct 09, 2020 12:09
--- NOTE | 2020-10-10 12:58 | IPNPDOC ---
Text Note Date of Service The patient was seen on 10/10/20. NOTE SUBJECTIVE: Awake, alert, no complaints today, getting HD. Was off Vent yes terday for several hours then became dyspneic in the evening so was put back on ventilator. OBJECTIVE: VITAL SIGNS: Please see below. Afebrile. No hypoxemia GENERAL: Awake and alert. HEENT: PERRLA, EOMI CARDIOVASCULAR: Normal S1, S2. No M/R/G RESPIRATORY: diminished, otherwise breathing comfortably, tracheostomy status. ABDOMINAL: obese abdomen, soft, non tender, normal bowel sounds. EXTREMITIES: chronic zhen stasis dermatitis, heel float boots NEUROLOGICAL: AAO x 3, no focal neuro deficit Labs: reviewed ASSESSMENT and PLAN: 50 year old male with multiple comorbidities including ESRD on hemodialysis, tracheal stenosis pending placement to facility who is now being transferred to the ICU in the setting of newly noted somnolence with respiratory acidosis with hypercarbia without a clear precipitant likely 2/2 OHS and possible volume component though he was fairly compensated per his baseline and taking some centrally depressing psychotropes and pain medications that are chronic for him. Acute on Chronic respiratory failure with hypoxia and hypercarbia with acute metabolic encephalopathy due to hypercarbia. tracheostomy in place now resolved. Trach replacement/exchange 09/11/20 C/w resp treatments, trach care In ICU on vent consulted Dr. Yang, appreciate recs continue duonebs and albuterol PRN CXR without newly noted pathology covid-19 negative failed weaning trial yesterday. Chronic respiratory failure secondary to suspected restrictive lung disease from his obesity, Chronically has tracheostomy Severe spinal stenosis chronic pain on oxycodone ESRD on hemodialysis Is on Wednesday, , Wednesday HD schedule. However getting dialysis today per Dr. [facility] onboard Morbid obesity/ NISA has tracheostomy GERD PPI Depression/ Anxiety on sertraline, alprazolam Paroxysmal Atrial fibrillation on amiodarone Seizure disorder on keppra Hypotension. C/w midodrine on dialysis days. Anemia. Stable, monitor and transfuse if indicated. hemoglobin level is optimal Was receiving Aranesp 100 mcg once a week with dialysis until recently Chronically bedridden. Awaiting placement to [facility] with possibly correction vent. 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 DVT px Teds, scds.Heparin VS,Fishbone, I+O VS, Fishbone, I+O Laboratory Tests 10/10/20 09:15 Vital Signs Date Time Temp Pulse Resp B/P (MAP) Pulse Ox O2 Delivery O2 Flow Rate FiO2 10/10/20 10:00 98.2 73 130/59 (82) 96 Ventilator 30 10/10/20 07:20 16 10/09/20 00:00 5.0 I&O- Last 24 Hours up to 6 AM 10/10/20 05:59 Intake Total 960 ml Output Total 600 ml Balance 360 ml NATALY CLEARY MD Oct 10, 2020 12:58
--- NOTE | 2020-10-10 13:21 | IPN ---
PULMONARY CRITICAL CARE PROGRESS NOTE DATE: 10/10/2020 SUBJECTIVE: The patient is seen in the Intensive Care Unit on mechanical ventilatory support, currently receiving dialysis. His gas exchange appears acceptable. PHYSICAL EXAMINATION: He is in no distress. His temperature is 97, pulse rate is 55, respirations 16, blood pressure 116/56. I and O's for the past 24 hours: 360 and 0 out. At bedside, he is ill-appearing. His mucosa is pink. Neck is supple. Tracheostomy site is clean. Heart sounds are regular. Breath sounds are diminished but clear. Abdomen is obese. DIAGNOSTIC STUDIES: His sodium is 136, potassium is 3.8, chloride 100, CO2 is 26, BUN is 37, creatinine 5.7, glucose is 114. White cell count is 7.2, hemoglobin is 9.7, hematocrit is 31.9, platelet count is 155,000. IMPRESSIONS: 1. Acute on chronic respiratory failure. I have encouraged the patient once again to remain off mechanical ventilation. He is quite reluctant. There is a home ventilator unit available for his use. The circuiting is being obtained by respiratory therapy. We will also arrange for a heat and humidification circuit and I would advise that he use this on an as needed basis and at night. Once available, he could be transferred out of ICU to the general medical floor as this is a home ventilator device.
[2020-10-10] MEDS: ACETAMINOPHEN TAB 650MG DOSE (2X325MG) PO PRN ×2 (17:12→21:44)
[2020-10-10] MEDS: PRAMIPEXOLE (MIRAPEX) 0.125 MG TAB PO SCH (21:45)
[2020-10-10] MEDS: SENOKOT S TAB PO SCH (21:45)
[2020-10-10] MEDS: ALPRAZolam 0.25 MG TAB PO PRN (23:43)
[2020-10-10] MEDS: oxyCODONE 5MG TAB PO PRN (23:44)
[2020-10-11] VITALS (8 sets, daily range): BP systolic 110–142; BP diastolic 54–88; O2SAT 95–97
[2020-10-11] MEDS: IPRATROPIUM 0.5MG/ALBUTEROL 2.5MG INH SOL UD 3ML (DUONEB) NEB SCH ×7 (00:15→23:05)
[2020-10-11] MEDS: guaiFENesin SYRUP 200 MG/10 ML UDC PO SCH ×3 (04:41→20:23)
[2020-10-11] MEDS: ACETAMINOPHEN TAB 650MG DOSE (2X325MG) PO PRN ×2 (04:41→10:40)
[2020-10-11] MEDS: HEPARIN SOD (PORCINE) 5000UNITS/ML 1ML VIAL/SYRINGE SQ SCH ×3 (04:42→23:22)
[2020-10-11] MEDS: CHLORASEPTIC SPRAY MT PRN ×3 (04:42→23:22)
[2020-10-11] MEDS: (RENVELA) SEVELAMER **CARBONate** 800 MG TAB PO SCH ×3 (08:52→20:23)
[2020-10-11] MEDS: ALPRAZolam 0.25 MG TAB PO PRN ×2 (08:52→20:23)
[2020-10-11] MEDS: oxyCODONE 5MG TAB PO PRN ×2 (08:53→20:24)
[2020-10-11] MEDS: SERTRALINE HCL 50 MG TAB PO SCH (08:54)
[2020-10-11] MEDS: PANTOPRAZOLE 40MG TAB (PROTONIX) PO SCH (08:54)
[2020-10-11] MEDS: AMIODARONE 200 MG TAB (PACERONE) PO SCH (08:54)
[2020-10-11] MEDS: levETIRAcetam 250MG TABLET (KEPPRA) PO SCH (08:54)
[2020-10-11 11:00] LABS: HEMATOCRIT 32.3 % (42.0-52.0); MEAN CORPUSCULAR HEMOGLOBIN 31.2 pg (27.0-33.0); MEAN CORPUSCULAR VOLUME 100.6 fl (80.0-96.0); PLATELET COUNT, AUTOMATED 148 10^3/uL (150-450); RED BLOOD COUNT 3.21 10^6/uL (4.30-6.10); WHITE BLOOD COUNT 7.6 10^3/uL (4.0-10.0)
--- NOTE | 2020-10-11 11:13 | IPNPDOC ---
Text Note Date of Service The patient was seen on 10/11/20. NOTE SUBJECTIVE: Awake, alert, no complaints today on Home ventilator unit. Patient reluctant to try to stay off ventilator. Has been urged repeatedly by pulmonary to try to stay off but he does not want to try it. OBJECTIVE: VITAL SIGNS: Please see below. Afebrile. No hypoxemia GENERAL: Awake and alert. HEENT: PERRLA, EOMI CARDIOVASCULAR: Normal S1, S2. No M/R/G RESPIRATORY: diminished, otherwise breathing comfortably, tracheostomy status. ABDOMINAL: obese abdomen, soft, non tender, normal bowel sounds. EXTREMITIES: chronic zhen stasis dermatitis, heel float boots NEUROLOGICAL: AAO x 3, no focal neuro deficit Labs: reviewed ASSESSMENT and PLAN: 50 year old male with multiple comorbidities including ESRD on hemodialysis, tracheal stenosis pending placement to facility who is now being transferred to the ICU in the setting of newly noted somnolence with respiratory acidosis with hypercarbia without a clear precipitant likely 2/2 OHS and possible volume component though he was fairly compensated per his baseline and taking some centrally depressing psychotropes and pain medications that are chronic for him. Acute on Chronic respiratory failure with hypoxia and hypercarbia with acute metabolic encephalopathy due to hypercarbia. tracheostomy in place now resolved. Trach replacement/exchange 09/11/20 C/w resp treatments, trach care consulted Dr. Yang, appreciate recs continue duonebs and albuterol PRN remains on home ventilator unit. Chronic respiratory failure on a home ventilator secondary to suspected restrictive lung disease from his obesity, Chronically has tracheostomy Severe spinal stenosis chronic pain on oxycodone ESRD on hemodialysis Is on Wednesday, , Wednesday HD schedule. However getting dialysis today per Dr. [facility] onboard Morbid obesity/ NISA has tracheostomy GERD PPI Depression/ Anxiety on sertraline, alprazolam Paroxysmal Atrial fibrillation on amiodarone Seizure disorder on keppra Hypotension. C/w midodrine on dialysis days. Anemia. Stable, monitor and transfuse if indicated. hemoglobin level is optimal Was receiving Aranesp 100 mcg once a week with dialysis until recently Chronically bedridden. Awaiting placement to [facility] with possibly [facility] [employer] [facility] vent. 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 DVT px Teds, scds.Heparin VS,Fishbone, I+O VS, Fishbone, I+O Laboratory Tests 10/11/20 10:43 Vital Signs Date Time Temp Pulse Resp B/P (MAP) Pulse Ox O2 Delivery O2 Flow Rate FiO2 10/11/20 08:53 18 Trach Collar 10/11/20 08:00 99.3 79 142/65 (90) 96 10/11/20 07:53 24 10/10/20 20:00 30.0 I&O- Last 24 Hours up to 6 AM 10/11/20 05:59 Intake Total 840 ml Output Total 4000 ml Balance -3160 ml NATALY CLEARY MD Oct 11, 2020 11:13
[2020-10-11 11:31] LABS: CALCIUM LEVEL 9.7 MG/DL (8.5-10.1); CREATININE FOR GFR 4.56 MG/DL (0.70-1.30); GLOMERULAR FILTRATION RATE 14.7 (>60)
--- NOTE | 2020-10-11 15:18 | IPN ---
PROGRESS NOTE DATE: 10/11/2020 SUBJECTIVE: Mr. Richard is seen this morning on his bedside. He remains on the ventilator via his tracheostomy. Nursing staff reports that he had low-grade fever, but otherwise has been feeling well. OBJECTIVE: VITAL SIGNS: Temperature 99.3 degrees Fahrenheit, heart rate 80 per minute, respiratory rate 18 per minute. Blood pressure 124/76 mmHg and oxygen saturation 97%. HEAD: Atraumatic. NECK: Supple. JVD difficult to be assessed. Tracheostomy is in place and hooked to the ventilator for now. HEART: Sounds are regular. LUNGS: Have good bilateral air entry. ABDOMEN: Obese, soft, and nontender. Bowel sounds are normal. EXTREMITIES: Without any cyanosis or clubbing. LABORATORY DATA: Today's labs show a WBC count of 7.6, hemoglobin 10.0, hematocrit 32.3, platelets 148,000. Sodium 138, potassium 4.0, CO2 of 27, BUN 26, and creatinine 4.56. Glucose is 86 and calcium 9.7. PROBLEMS: 1. End-stage renal disease. The patient was dialyzed yesterday. I am going to try to dialyze him again this afternoon due to scheduling and staffing issues. 2. Respiratory failure. Most likely his respiratory failure is multifactorial. We are trying to optimize his volume status and will try to move another 3 liters of fluid today. I feel most of his problem is morbid obesity and chronic lung disease in addition to obstructive sleep apnea. It remains to be seen how quickly he will get weaned off the ventilator. 3. Anemia. His anemia is stable at present and will continue with Aranesp. 4. Hypertension. Blood pressure has been well-controlled. Previously he was getting hypotensive during dialysis when we tried to remove fluid. We have cut down his antihypertensives significantly.
[2020-10-11] MEDS: PRAMIPEXOLE (MIRAPEX) 0.125 MG TAB PO SCH (20:23)
[2020-10-11] MEDS: SENOKOT S TAB PO SCH (20:23)
[2020-10-12] VITALS (19 sets, daily range): BP systolic 130–171; BP diastolic 60–86; O2SAT 94–99
[2020-10-12] MEDS: guaiFENesin SYRUP 200 MG/10 ML UDC PO SCH ×4 (00:37→18:31)
[2020-10-12] MEDS: IPRATROPIUM 0.5MG/ALBUTEROL 2.5MG INH SOL UD 3ML (DUONEB) NEB SCH ×5 (03:27→19:50)
[2020-10-12] MEDS: CHLORASEPTIC SPRAY MT PRN ×2 (05:50→18:31)
[2020-10-12] MEDS: HEPARIN SOD (PORCINE) 5000UNITS/ML 1ML VIAL/SYRINGE SQ SCH ×3 (05:53→21:30)
[2020-10-12] MEDS ORDERED: SODIUM CHLORIDE 0.9% 1000ML IV PRN (08:00)
[2020-10-12] MEDS ORDERED: LIDOCAINE 1% SDV 5ML VIAL SC PRN (08:00)
[2020-10-12] MEDS: SERTRALINE HCL 50 MG TAB PO SCH (10:34)
[2020-10-12] MEDS: (RENVELA) SEVELAMER **CARBONate** 800 MG TAB PO SCH ×3 (10:34→18:31)
[2020-10-12] MEDS: levETIRAcetam 250MG TABLET (KEPPRA) PO SCH (10:34)
[2020-10-12] MEDS: AMIODARONE 200 MG TAB (PACERONE) PO SCH (10:35)
[2020-10-12] MEDS: PANTOPRAZOLE 40MG TAB (PROTONIX) PO SCH (10:35)
--- NOTE | 2020-10-12 14:46 | MHIPNPDOC ---
[facility] Progress Note Progress Note DATE OF SERVICE: 10/12/[address] Bernal, patient having some difficulty getting off vent, maybe due to panic attacks that cause him to become exhausted and then need to be put back on, recently taken off of Ativan by plum due to resp compromise, recommend increasing sertraline to 200mg daily, if doesn't improve will come back for full follow up consult as could be panic/anxiety causing difficulty weaning him off the vent Vital Signs Vital Signs Date Time Temp Pulse Resp B/P (MAP) Pulse Ox O2 Delivery O2 Flow Rate FiO2 10/12/20 12:05 97.5 81 21 171/86 (114) 98 Ventilator 30 10/10/20 20:00 30.0 Current Medications Current Medications Medications (Trade) Dose Ordered Sig/Alicia Route PRN Reason Start Time Stop Time Status Last Admin Dose Admin Acetaminophen (Tylenol Tab) 650 mg Q4HP PRN PO PAIN / FEVER 10/10/20 21:00 10/11/20 10:40 Acetaminophen (Tylenol Tab) 650 mg Q6HP PRN PO PAIN / FEVER 06/13/20 04:45 10/10/20 20:58 DC 10/10/20 17:12 Albuterol/ Ipratropium (Duoneb (Ipr 0.5mg/Alb 2.5mg)) 3 ml Q2H PRN NEB SHORTNESS OF BREATH 06/11/20 19:45 10/07/20 16:50 Albuterol/ Ipratropium (Duoneb (Ipr 0.5mg/Alb 2.5mg)) 3 ml Q6H PRN NEB SOB/WHEEZING 06/11/20 19:45 06/11/20 19:45 DC Albuterol/ Ipratropium (Duoneb (Ipr 0.5mg/Alb 2.5mg)) 3 ml RQ4H NEB 07/25/20 16:00 10/12/20 12:24 Albuterol/ Ipratropium (Duoneb (Ipr 0.5mg/Alb 2.5mg)) 3 ml RQ6H NEB 06/11/20 20:00 07/25/20 15:32 DC 07/25/20 13:55 Alprazolam (Xanax) 0.25 mg Q6H PRN PO ANXIETY 06/11/20 19:45 10/11/20 20:23 Amiodarone HCl (Pacerone, Cordarone) 200 mg DAILY PO 06/12/20 09:00 10/12/20 10:35 Amlodipine Besylate (Norvasc) 5 mg DAILY PO 10/06/20 09:00 10/08/20 18:19 DC 10/08/20 08:19 Amlodipine Besylate (Norvasc) 10 mg DAILY PO 08/29/20 09:00 10/05/20 18:17 DC 10/05/20 06:06 Benzonatate (Tessalon Perles) 100 mg Q8HP PRN PO COUGH 06/13/20 01:15 06/13/20 12:18 Bisacodyl (Dulcolax Suppository) 10 mg DAILYPRN PRN SC CONSTIPATION 06/11/20 19:45 06/15/20 16:46 DC Bisacodyl (Dulcolax Tab) 5 mg DAILY PO 06/16/20 09:00 08/04/20 17:40 DC 08/04/20 10:46 Carbamide Peroxide (Debrox) 3 drop BID 06/12/20 21:00 06/16/20 09:01 DC 06/13/20 12:17 Darbepoetin Jairo (Aranesp (Dialysis Use)) 100 mcg HD IV 08/06/20 11:45 09/03/20 07:41 DC Darbepoetin Jairo (Aranesp (Dialysis Use)) 100 mcg HD IV 09/03/20 07:30 09/16/20 08:11 DC 09/10/20 09:01 Darbepoetin Jairo (Aranesp (Dialysis Use)) 200 mcg HD IV 10/08/20 18:30 10/10/20 11:50 Emollient Cream (Vanicream) to bilateral lo... DAILY TOP 08/05/20 09:00 09/09/20 11:17 DC 09/08/20 09:44 Emollient Cream (Vanicream) to bilateral lo... DAILY PRN TOP DRY SKIN 09/09/20 11:15 09/28/20 22:12 Guaifenesin (Robitussin) 5 ml Q6H PO 07/28/20 12:00 10/12/20 12:58 Heparin Sodium (Heparin (Flush)) 200 units ASDIRECTED PRN IV SEE LABEL COMMENTS 06/11/20 19:45 06/11/20 19:49 DC Heparin Sodium (Heparin (Flush)) 200 units ASDIRECTED PRN IV SEE LABEL COMMENTS 06/11/20 19:45 06/20/20 18:55 DC 06/20/20 06:42 Heparin Sodium (Heparin (Flush)) 200 units PICC IV 06/12/20 06:00 06/11/20 19:48 DC Heparin Sodium (Heparin (Flush)) 200 units PICC IV 06/12/20 06:00 06/20/20 18:55 DC 06/20/20 06:41 Heparin Sodium (Heparin) 9,000 units ASDIRECTED XX 10/03/20 10:55 10/04/20 09:29 DC Heparin Sodium (Heparin) 9,000 units ASDIRECTED XX 09/26/20 13:04 09/27/20 07:14 DC Heparin Sodium (Heparin) Please refer to ... ASDIRECTED XX 09/20/20 17:45 09/21/20 17:44 DC Heparin Sodium (Heparin) Please refer to ... ASDIRECTED XX 09/24/20 07:15 09/25/20 07:14 DC Heparin Sodium (Heparin) Please refer to ... ASDIRECTED XX 10/03/20 09:30 10/03/20 10:55 DC Heparin Sodium (Heparin) Please refer to ... ASDIRECTED XX 10/12/20 08:00 10/13/20 07:59 Heparin Sodium (Heparin) Please refer to ... ASDIRECTED XX 09/26/20 07:15 09/26/20 13:04 DC Heparin Sodium (Heparin) Please refer to ... ASDIRECTED XX 09/28/20 07:45 09/29/20 07:44 DC Heparin Sodium (Heparin) dose as per volume indica... ASDIRECTED PRN IV SEE LABEL COMMENTS 09/04/20 11:30 09/05/20 08:25 DC Heparin Sodium (Heparin) dose as per volume indica... ASDIRECTED PRN IV SEE LABEL COMMENTS 09/04/20 11:30 09/05/20 08:25 DC Heparin Sodium (Porcine) (Heparin) 5,000 units Q8H SQ 06/11/20 22:00 06/13/20 15:19 DC 06/13/20 12:17 Heparin Sodium (Porcine) (Heparin) 5,000 units Q8H SQ 07/25/20 22:00 10/12/20 13:01 Home Med (Med Rec Complete!) ASDIRECTED XX 06/12/20 10:15 06/12/20 10:08 DC Hydralazine HCl (Apresoline) 10 mg Q6H PRN PO SBP>170 06/11/20 19:45 08/06/20 11:39 DC 06/19/20 22:01 Iron (Venofer) 100 mg HD IV 07/11/20 11:30 08/27/20 13:16 DC Levetiracetam (Keppra) 500 mg DAILY PO 06/12/20 09:00 10/12/20 10:34 Lidocaine (Lidoderm Patch) 1 patch DAILY TD 06/12/20 09:00 09/09/20 11:57 DC 07/13/20 06:43 Lidocaine (Lidoderm Patch) 1 patch DAILY PRN TD BACK PAIN 09/09/20 12:00 09/09/20 14:17 DC Lidocaine HCl (Lidocaine 1% Sdv) 0.5 ml ASDIRECTED PRN SC SEE LABEL COMMENTS 09/04/20 11:30 09/05/20 08:26 DC Lidocaine HCl (Lidocaine 1% Sdv) 0.5 ml ASDIRECTED PRN SC SEE LABEL COMMENTS 09/04/20 11:30 09/05/20 08:26 DC Lidocaine HCl (Lidocaine 1% Sdv) 0.5 ml ASDIRECTED PRN SC SEE LABEL COMMENTS 09/07/20 07:30 09/08/20 07:29 DC Lidocaine HCl (Lidocaine 1% Sdv) 0.5 ml ASDIRECTED PRN SC SEE LABEL COMMENTS 09/07/20 07:30 09/08/20 07:29 DC Lidocaine HCl (Lidocaine 1% Sdv) 0.5 ml ASDIRECTED PRN SC SEE LABEL COMMENTS 09/21/20 08:00 09/21/20 17:44 DC Lidocaine HCl (Lidocaine 1% Sdv) 0.5 ml ASDIRECTED PRN SC SEE LABEL COMMENTS 09/24/20 07:15 09/25/20 07:14 DC Lidocaine HCl (Lidocaine 1% Sdv) 0.5 ml ASDIRECTED PRN SC SEE LABEL COMMENTS 10/03/20 09:30 10/04/20 09:29 DC Lidocaine HCl (Lidocaine 1% Sdv) 0.5 ml ASDIRECTED PRN SC SEE LABEL COMMENTS 10/12/20 08:00 10/13/20 07:59 Lidocaine HCl (Lidocaine 1% Sdv) 0.5 ml ASDIRECTED PRN SC SEE LABEL COMMENTS 09/26/20 07:15 09/27/20 07:14 DC Lidocaine HCl (Lidocaine 1% Sdv) 0.5 ml ASDIRECTED PRN SC SEE LABEL COMMENTS 10/01/20 10:30 10/02/20 10:29 DC Midodrine (Proamatine) 10 mg ASDIRECTED PO 06/11/20 20:30 08/31/20 21:12 DC 08/10/20 06:14 Midodrine (Proamatine) 10 mg HD PO 06/11/20 21:00 06/11/20 20:22 DC Miscellaneous (Unresolved Clarification Entry) SEE LABEL COMMENTS DAILY XX 06/24/20 09:00 06/25/20 12:54 DC Miscellaneous (Unresolved Clarification Entry) SEE LABEL COMMENTS DAILY XX 09/29/20 09:00 09/29/20 12:49 DC Non-Formulary Medication ( See Comment Field Below ) CHECK TO SEE IF THE PATIENT... DAILY@0800 XX 06/27/20 08:00 09/01/20 18:17 DC 08/10/20 06:36 Non-Formulary Medication ( See Comment Field Below ) REMOVE LIDODERM PATCH DAILY@21 XX 06/11/20 21:00 09/09/20 11:57 DC 09/04/20 21:00 Non-Formulary Medication ( See Comment Field Below ) REMOVE LIDODERM PATCH DAILY@21 PRN XX BACK PAIN 09/09/20 12:00 09/09/20 14:17 DC Nystatin (Mycostatin Powder, Nystop) Apply to groin folds BIDP PRN TOP REDNESS/IRRITATION 08/27/20 01:00 09/25/20 01:24 DC Ondansetron HCl (Zofran) 4 mg Q6HP PRN PO NAUSEA OR VOMITING 07/08/20 12:45 10/07/20 19:36 Oxycodone HCl (Roxicodone, Oxyir) 10 mg Q4H PRN PO PAIN 06/11/20 19:45 10/11/20 20:24 Pantoprazole Sodium (Protonix) 40 mg DAILY PO 06/12/20 09:00 10/12/20 10:35 Phenol (Chloraseptic [place]) 1 spray Q2HP PRN MT SORE THROAT 10/09/20 08:45 10/12/20 05:50 Polyethylene Glycol (Miralax) 1 pkt DAILY PRN PO CONSTIPATION 06/11/20 19:45 06/15/20 16:45 DC Polyethylene Glycol (Miralax) 1 pkt DAILYPRN PRN PO CONSTIPATION 08/04/20 17:45 Polymyxin/ Trimethoprim Sulfate (Polytrim Ophth Drops) 1 drop 6XD OU 08/03/20 15:00 08/10/20 12:00 DC 08/10/20 06:13 Pramipexole Dihydrochloride (Mirapex) 0.125 mg QHS PO 06/11/20 21:00 10/11/20 20:23 Senna/Docusate Sodium (Senokot S) 2 tab QHS PO 08/04/20 21:00 10/11/20 20:23 Sertraline HCl (Zoloft) 100 mg DAILY PO 06/12/20 09:00 09/30/20 11:35 DC 09/30/20 09:50 Sertraline HCl (Zoloft) 150 mg DAILY PO 10/01/20 09:00 10/12/20 10:34 Sevelamer Carbonate (Renvela) 2,400 mg WM PO 06/12/20 08:00 10/12/20 12:58 Sodium Chloride (Nacl 0.9%) 200 ml ASDIRECTED PRN IV SEE LABEL COMMENTS 09/03/20 07:30 09/05/20 08:26 DC Sodium Chloride (Nacl 0.9%) 200 ml ASDIRECTED PRN IV SEE LABEL COMMENTS 09/04/20 11:30 09/10/20 10:39 DC Sodium Chloride (Nacl 0.9%) 200 ml ASDIRECTED PRN IV SEE LABEL COMMENTS 09/07/20 07:30 09/10/20 10:39 DC Sodium Chloride (Nacl 0.9%) 200 ml ASDIRECTED PRN IV SEE LABEL COMMENTS 09/12/20 08:00 09/24/20 08:57 DC Sodium Chloride (Nacl 0.9%) 200 ml ASDIRECTED PRN IV SEE LABEL COMMENTS 09/24/20 07:15 09/25/20 07:14 DC Sodium Chloride (Nacl 0.9%) 200 ml ASDIRECTED PRN IV SEE LABEL COMMENTS 10/03/20 09:30 10/04/20 09:29 DC Sodium Chloride (Nacl 0.9%) 200 ml ASDIRECTED PRN IV SEE LABEL COMMENTS 10/12/20 08:00 10/13/20 07:59 Sodium Chloride (Nacl 0.9%) 200 ml ASDIRECTED PRN IV SEE LABEL COMMENTS 09/26/20 07:15 09/27/20 07:14 DC Sodium Chloride (Nacl 0.9%) 200 ml ASDIRECTED PRN IV SEE LABEL COMMENTS 09/28/20 07:45 09/29/20 07:44 DC Sodium Chloride (Nacl 0.9%) 200 ml ASDIRECTED PRN IV SEE LABEL COMMENTS 10/01/20 10:30 10/02/20 10:29 DC Sodium Chloride (Saline Lock Flush) 10 ml ASDIRECTED PRN IV SEE LABEL COMMENTS 06/11/20 19:45 06/11/20 19:50 DC Sodium Chloride (Saline Lock Flush) 10 ml ASDIRECTED PRN IV SEE LABEL COMMENTS 06/11/20 19:45 06/20/20 18:55 DC 06/20/20 06:41 Sodium Chloride (Saline Lock Flush) 10 ml PICC IV 06/12/20 06:00 06/11/20 19:49 DC Sodium Chloride (Saline Lock Flush) 10 ml PICC IV 06/12/20 06:00 06/20/20 18:55 DC 06/20/20 06:41 Sucroferric Oxyhydroxide (Velphoro) 500 mg WM PO 07/11/20 12:30 09/21/20 12:33 DC 09/15/20 18:12 Allergies Coded Allergies: moxifloxacin (Verified Allergy, Intermediate, RASH, 12/25/19) codeine (Verified Allergy, Unknown, 12/25/19) valsartan (Verified Allergy, Unknown, 12/25/19) CAESAR RAJPUT DO Oct 12, 2020 14:46
[2020-10-12] MEDS: PRAMIPEXOLE (MIRAPEX) 0.125 MG TAB PO SCH (21:31)
[2020-10-12] MEDS: SENOKOT S TAB PO SCH (21:31)
[2020-10-12] MEDS: ALPRAZolam 0.25 MG TAB PO PRN (21:31)
[2020-10-12] MEDS: oxyCODONE 5MG TAB PO PRN (21:32)
[2020-10-13] VITALS (21 sets, daily range): BP systolic 127–146; BP diastolic 61–78; O2SAT 92–99
[2020-10-13] MEDS: guaiFENesin SYRUP 200 MG/10 ML UDC PO SCH ×5 (00:22→23:49)
[2020-10-13] MEDS: IPRATROPIUM 0.5MG/ALBUTEROL 2.5MG INH SOL UD 3ML (DUONEB) NEB SCH ×7 (02:27→23:19)
[2020-10-13 04:46] LABS: BASO % 0.5 % (0.0-1.0); EOS # 0.4 10^3/uL (0.0-0.5); EOS % 5.7 % (0.0-3.0); HEMOGLOBIN 9.9 g/dl (13.5-17.5); LYMPH # 1.7 10^3/uL (1.5-5.0); LYMPH % 23.1 % (24.0-44.0); MEAN CORPUSCULAR HEMOGLOBIN 30.1 pg (27.0-33.0); MEAN CORPUSCULAR VOLUME 100.3 fl (80.0-96.0); MONO # 0.3 10^3/uL (0.0-0.8); NEUTROPHILS % 66.3 % (36.0-66.0); PLATELET COUNT, AUTOMATED 176 10^3/uL (150-450); RED BLOOD COUNT 3.29 10^6/uL (4.30-6.10); WHITE BLOOD COUNT 7.5 10^3/uL (4.0-10.0)
[2020-10-13 05:03] LABS: ALBUMIN 2.3 GM/DL (3.2-5.2); CALCIUM LEVEL 9.7 MG/DL (8.5-10.1); CREATININE FOR GFR 4.74 MG/DL (0.70-1.30); GLOMERULAR FILTRATION RATE 14.1 (>60); PHOSPHORUS LEVEL 3.7 MG/DL (2.5-4.9); POTASSIUM SERUM 4.2 MEQ/L (3.5-5.1)
[2020-10-13] MEDS: HEPARIN SOD (PORCINE) 5000UNITS/ML 1ML VIAL/SYRINGE SQ SCH ×3 (05:20→21:00)
[2020-10-13] MEDS: (RENVELA) SEVELAMER **CARBONate** 800 MG TAB PO SCH ×3 (08:00→18:36)
[2020-10-13] MEDS: levETIRAcetam 250MG TABLET (KEPPRA) PO SCH (10:20)
[2020-10-13] MEDS: PANTOPRAZOLE 40MG TAB (PROTONIX) PO SCH (10:20)
[2020-10-13] MEDS: AMIODARONE 200 MG TAB (PACERONE) PO SCH (10:21)
[2020-10-13] MEDS: SERTRALINE HCL 50 MG TAB PO SCH (10:21)
--- NOTE | 2020-10-13 11:56 | CCN ---
CRITICAL CARE NOTE DATE: 10/12/2020 SUBJECTIVE: On my arrival to the room, the patient is on trach collar as I am requested from respiratory therapy. He is in the PCU currently. He is on dialysis. He is awake, alert and jovial. He states that he has his new [place] trach. He states he does not like it as much, as he can't remove the nasal cannula to clean; but when he is doing well, he has minimal cough, minimal cough production and that has not changed. He has had no fevers. No arrhythmias. Unfortunately, he prefers to be on mechanical ventilation. We have to continuously encourage him to try trach mask ventilation. Currently doing well, resting comfortably, watching TV. PHYSICAL EXAMINATION: Temperature is 97.5, pulse is 81, respiratory rate is 21, blood pressure 171/86 with a mean arterial pressure of 114, oxygen saturation is 98% on 0.30. Input and out, net negative, 2400 over the past 24 hours. General: Awake, alert, oriented in no acute respiratory distress. No tachypnea while on trach collar. HEENT: Sclerae clear, anicteric. Pupils equal, reactive to light. Mucous membranes moist without lesions. Oropharynx without erythema or exudates. Neck is supple. No tracheal deviation or mass. Trachea is in place without surrounding erythema or exudate. Cardiac: Regular S1, S2 without audible murmur, rub or gallop. No significant elevated Jugular venous pressure (JVP). Chronic venous stasis changes of the lower extremities. The patient is not ambulatory. Pulmonary: Decreased breath sounds in general, but no rales, rhonchi or wheezes. No dullness to percussion. NO accessory muscle use. Abdomen: Obese, soft, nontender, non-distended, no hepatosplenomegaly. No masses or hernia. Extremities: Chronic venous stasis changes. NPO skin protective boots are in place. LABORATORY EVALUATION: Shows there is no laboratory evaluation today. Yesterday white blood cell count was 7.6, hemoglobin was 10. Sodium 138, potassium 4.0 and a bicarbonate of 27. Last arterial blood gas on 10/06 shows hypercarbia that is compensated with a pH of 7.39, pCO2 of 47 and pH of 125. IMPRESSION: Chronic respiratory failure, hypoxic hypercarbic from obesity, hyperventilation. Recommend trach trials as much as possible. Ultimately, would like to have him on trach during the day. Pressure therapy at night. I believe this can be achieved as long as the patient continues to work with respiratory therapy.
[2020-10-13] MEDS: CHLORASEPTIC SPRAY MT PRN (12:50)
--- NOTE | 2020-10-13 20:28 | IPN ---
PROGRESS NOTE DATE: 10/13/2020 SUBJECTIVE: Patient was seen and examined at the bedside today morning during hemodialysis procedure. He is tolerating the hemodialysis procedure. He denies any acute complaints at this time. He is not on the vent at this time and he is on a trach collar. OBJECTIVE: Vital signs: Temperature is 98.8 degrees Fahrenheit, blood pressure 128/68, pulse is 71, respiratory rate of 18, saturating 99% on trach collar. Intake and output: Urine output is not recorded. Weight in the bed scale is 194.9 kg. PHYSICAL EXAMINATION: GENERAL: Patient is morbidly obese, laying in the bed, getting hemodialysis done. HEAD AND NECK EXAM: Extraocular muscles intact. Pupils are equally round and reactive to light. Mucous membranes are moist. Neck is supple. He has a trach collar. CARDIOVASCULAR: S1, S2, regular rate. No edema of the legs, however he has 1+ edema of the thighs. RESPIRATORY: Chest is clear to auscultation bilaterally. He is not requiring the vent at this time. ABDOMEN: Soft, obese, positive bowel sounds. CENTRAL NERVOUS SYSTEM (DIMPLING MACHINE OPERATOR): No focal deficits. Power is 5/5 in bilateral upper extremities. LABORATORY REVIEW: CBC showed WBC 7.5, hemoglobin 9.9, platelets are 176. BMP showed sodium 137, potassium 4.2, chloride 105, bicarbonate 24, BUN 24, creatinine is 4.7. CURRENT INPATIENT MEDICATIONS: Patient's medications were all reviewed by myself. There is no significant change in the medications today as compared with yesterday. ASSESSMENT AND PLAN: 1. End-stage renal disease. Patient is tolerating the hemodialysis procedure well. I will try to remove at least 4 kg of fluid as tolerated by his blood pressure. 2. Anemia in end-stage renal disease. Hemoglobin level is optimal. Continue current dose of Aranesp with dialysis. 3. Atrial fibrillation. Heart rate is controlled with amiodarone. 4. Chronic kidney disease-mineral bone disease. Continue current dose of Renvela. Latest phosphorous level is within the acceptable range.
[2020-10-13] MEDS: PRAMIPEXOLE (MIRAPEX) 0.125 MG TAB PO SCH (21:00)
[2020-10-13] MEDS: SENOKOT S TAB PO SCH (21:01)
[2020-10-14] VITALS (17 sets, daily range): BP systolic 132–179; BP diastolic 62–82; O2SAT 91–99
[2020-10-14] MEDS: IPRATROPIUM 0.5MG/ALBUTEROL 2.5MG INH SOL UD 3ML (DUONEB) NEB SCH ×6 (03:21→23:08)
[2020-10-14] MEDS: HEPARIN SOD (PORCINE) 5000UNITS/ML 1ML VIAL/SYRINGE SQ SCH ×3 (05:08→21:46)
[2020-10-14] MEDS: guaiFENesin SYRUP 200 MG/10 ML UDC PO SCH ×3 (05:08→18:43)
[2020-10-14] MEDS: clonazePAM 0.5 MG TAB PO PRN ×2 (09:30→20:41)
[2020-10-14] MEDS: (RENVELA) SEVELAMER **CARBONate** 800 MG TAB PO SCH ×3 (09:30→18:43)
[2020-10-14] MEDS: oxyCODONE 5MG TAB PO PRN ×2 (09:31→20:41)
[2020-10-14] MEDS: AMIODARONE 200 MG TAB (PACERONE) PO SCH (09:32)
[2020-10-14] MEDS: levETIRAcetam 250MG TABLET (KEPPRA) PO SCH (09:32)
[2020-10-14] MEDS: SERTRALINE 100 MG TAB PO SCH (09:32)
[2020-10-14] MEDS: PANTOPRAZOLE 40MG TAB (PROTONIX) PO SCH (09:32)
[2020-10-14] MEDS: SENOKOT S TAB PO SCH (20:40)
[2020-10-14] MEDS: PRAMIPEXOLE (MIRAPEX) 0.125 MG TAB PO SCH (21:46)
[2020-10-15] VITALS (7 sets, daily range): BP systolic 141–165; BP diastolic 67–72; O2SAT 96–98
[2020-10-15] MEDS: guaiFENesin SYRUP 200 MG/10 ML UDC PO SCH ×5 (00:36→23:59)
[2020-10-15] MEDS: IPRATROPIUM 0.5MG/ALBUTEROL 2.5MG INH SOL UD 3ML (DUONEB) NEB SCH ×5 (03:24→20:58)
[2020-10-15] MEDS: HEPARIN SOD (PORCINE) 5000UNITS/ML 1ML VIAL/SYRINGE SQ SCH ×3 (05:27→22:14)
[2020-10-15] MEDS: levETIRAcetam 250MG TABLET (KEPPRA) PO SCH (05:28)
[2020-10-15] MEDS ORDERED: LIDOCAINE 1% SDV 5ML VIAL SC PRN (08:00)
[2020-10-15] MEDS ORDERED: SODIUM CHLORIDE 0.9% 1000ML IV PRN (08:00)
[2020-10-15] MEDS: SERTRALINE 100 MG TAB PO SCH (08:09)
[2020-10-15] MEDS: (RENVELA) SEVELAMER **CARBONate** 800 MG TAB PO SCH ×3 (08:09→17:47)
[2020-10-15] MEDS: PANTOPRAZOLE 40MG TAB (PROTONIX) PO SCH (08:10)
[2020-10-15] MEDS: AMIODARONE 200 MG TAB (PACERONE) PO SCH (08:10)
[2020-10-15] MEDS: clonazePAM 0.5 MG TAB PO PRN ×2 (11:40→22:20)
[2020-10-15] MEDS: oxyCODONE 5MG TAB PO PRN ×2 (11:41→22:15)
[2020-10-15] MEDS: IPRATROPIUM 0.5MG/ALBUTEROL 2.5MG INH SOL UD 3ML (DUONEB) NEB PRN (16:52)
[2020-10-15] MEDS: PRAMIPEXOLE (MIRAPEX) 0.125 MG TAB PO SCH (22:14)
[2020-10-15] MEDS: SENOKOT S TAB PO SCH (22:14)
[2020-10-16] MEDS: IPRATROPIUM 0.5MG/ALBUTEROL 2.5MG INH SOL UD 3ML (DUONEB) NEB SCH ×3 (00:32→08:46)
[2020-10-16] MEDS: guaiFENesin SYRUP 200 MG/10 ML UDC PO SCH ×3 (05:09→18:27)
[2020-10-16] MEDS: HEPARIN SOD (PORCINE) 5000UNITS/ML 1ML VIAL/SYRINGE SQ SCH ×3 (05:09→21:16)
--- NOTE | 2020-10-16 08:07 | IPN ---
NEPHROLOGY PROGRESS NOTE DATE: 10/15/2020 SUBJECTIVE: The patient was seen and examined at the bedside today morning. He is afebrile, hemodynamically stable. He is not on the vent. His tracheostomy has a trach collar now and today is his regular day of dialysis and he reports that he is able to go down for hemodialysis, not requiring a vent. OBJECTIVE: VITAL SIGNS: Temperature is 97.6 degrees Fahrenheit, blood pressure 152/68, pulse is 76, respiratory rate of 20, saturating 98% on a trach collar. INTAKE AND OUTPUT: Urine output is not recorded. Weight in the bed scale was 190.4 kg. PHYSICAL EXAMINATION: GENERAL APPEARANCE: The patient is awake, alert, oriented x3, morbidly obese, laying in bed. HEAD AND NECK: Extraocular muscles intact. Pupils are equally round and reactive to light. Neck is supple. He has a tracheostomy. CARDIOVASCULAR: S1, S2, regular rate. EXTREMITIES: 1+ edema of the thighs as noted. RESPIRATORY: He has a trach collar, otherwise chest is clear to auscultation bilaterally. ABDOMEN: Soft, obese, positive bowel sounds. MUSCULOSKELETAL: He has a waffle boot on the bilateral lower extremities because he is chronically bed ridden. OIM CONSULTANT: No focal deficits bilateral upper extremities. LAB REVIEW: CBC showed a WBC of 7.5, hemoglobin 9.9, platelets of 176. That was from October 13. And BMP is also from October 13 with a potassium of 4.2. CURRENT INPATIENT MEDICATIONS: The patient's medications were all reviewed by myself. There is no significant change in the medications today. ASSESSMENT AND PLAN: 1. End-stage renal disease - The patient will be dialyzed today according to his regular scheduled and at least 4 liters of fluid will be removed. 2. Anemia and end-stage renal disease - hemoglobin level is optimal. Continue current dose of Aranesp with dialysis. 3. Chronic kidney disease, mineral bone disease - continue current dose of Renvela with meals. Phosphorous level is within the acceptable range.
[2020-10-16] MEDS: AMIODARONE 200 MG TAB (PACERONE) PO SCH (09:00)
[2020-10-16 09:21] VITALS: BP 138/65
[2020-10-16] MEDS: (RENVELA) SEVELAMER **CARBONate** 800 MG TAB PO SCH ×3 (10:08→18:27)
[2020-10-16] MEDS: PANTOPRAZOLE 40MG TAB (PROTONIX) PO SCH (10:08)
[2020-10-16] MEDS: SERTRALINE 100 MG TAB PO SCH (10:08)
[2020-10-16] MEDS: levETIRAcetam 250MG TABLET (KEPPRA) PO SCH (10:09)
[2020-10-16 11:36] LABS: ABG BASE EXCESS 3.1 (-2.0-2.0); ABG HCO3 30.3 MEQ/L (22.0-26.0); ABG O2 SATURATION 98.6 % (95.0-99.0); ABG PARTIAL PRESSURE CO2 59.7 mmHg (35.0-45.0); ABG PARTIAL PRESSURE O2 130.8 mmHg (75.0-100.0); ABG STANDARD HCO3 27.2 MEQ/L (22.0-26.0); ABG TOTAL CO2 32.1 MEQ/L (22.0-29.0); ABG pH (ARTERIAL) 7.323 UNITS (7.350-7.450)
[2020-10-16] MEDS: ALBUTEROL SULFATE 2.5 MG/0.5 ML INH NEB SOLN NEB SCH ×3 (12:00→20:49)
--- NOTE | 2020-10-16 14:50 | IPN ---
PROGRESS NOTE DATE: 10/16/2020 Mr. Richard is awake, alert, mouthing words. He is currently getting a nebulizer, coughing up copious amounts of mucus. Reports that his mucus has been fairly thick. He has had no hemoptysis. No increase in shortness of breath. He has not been using any ventilation at night, although it has been ordered for nocturnal use in forms of sleep. Despite that, he has only minimal CO2 retention with a pCO2 of 7.32, pCO2 of 59, and a PaO2 of 131. He is encouraged to use pressure therapy at night; however, it continuously alarms, as there is no cuff on his trach. He has a longer trach, and therefore there is a large cuff leak which alarms both his vent and Trilogy. He was previously placed on Trilogy through his trach. This was the only FDA-approved device that the patient was able to use in the fpc setting. PHYSICAL EXAMINATION: Temperature 97.5, pulse is 66, respiratory rate is 20, oxygen saturation 99% on 0.28 FiO2, blood pressure is 152/68 with a mean arterial pressure of 86. Intake and output: Net negative 2800 out. GENERAL: Awake, alert, oriented. Affect and mood are appropriate. Nutrition and hygiene are good. He is morbidly obese. HEENT: Sclerae are clear and anicteric. Pupils equal, round and reactive to light. Mucous membranes are moist. Oropharynx is crowded. Mallampati IV. Trachea with thick amounts of mucus. NECK: Without any crepitus. No mass or lesion. LYMPHATIC: No cervical, supraclavicular, or axillary adenopathy. CARDIAC: Distant S1, S2 without audible murmur, rub, or gallop. No elevated jugular venous pressure (JVP). No significant systemic edema. PULMONARY: Clear to auscultation without rales, rhonchi, or wheezes but generalized decreased. ABDOMEN: Obese, soft, nontender, nondistended. No hepatosplenomegaly. No masses or hernia. EXTREMITIES: No cyanosis, clubbing, or edema. Arterial blood gas today shows a pH of 7.32, pCO2 of 59, PaO2 of 131, as mentioned above. There are no other labs for the past 3 days. IMPRESSION: 1. Obesity hypoventilation. It does appear that requires some form of pressure therapy, at least with sleep. Will attempt to facilitate this for him. 2. Thick mucus secretions. I decreased his DuoNeb and placed him on albuterol only in case the Atrovent is drying. I have given him 5 days of Mucomyst to be nebulized. Hopefully this will help his secretions become more manageable. Ultimately he is ready for discharge as long as there is a facility that would be able to manage trach care and nocturnal ventilation.
[2020-10-16] MEDS: ACETYLCYSTEINE 10% 30 ML VIAL INH SCH ×2 (16:07→20:49)
[2020-10-16 16:44] VITALS: BP 143/65
[2020-10-16] MEDS: SENOKOT S TAB PO SCH (21:16)
[2020-10-16] MEDS: PRAMIPEXOLE (MIRAPEX) 0.125 MG TAB PO SCH (21:16)
[2020-10-16] MEDS: clonazePAM 0.5 MG TAB PO PRN (21:19)
[2020-10-16] MEDS: oxyCODONE 5MG TAB PO PRN (21:22)
[2020-10-17] VITALS: BP 147/71
[2020-10-17] MEDS: guaiFENesin SYRUP 200 MG/10 ML UDC PO SCH ×5 (00:27→23:12)
[2020-10-17] MEDS: ALBUTEROL SULFATE 2.5 MG/0.5 ML INH NEB SOLN NEB PRN ×5 (01:15→23:11)
[2020-10-17] MEDS: HEPARIN SOD (PORCINE) 5000UNITS/ML 1ML VIAL/SYRINGE SQ SCH ×3 (06:26→20:38)
[2020-10-17] MEDS: ACETYLCYSTEINE 10% 30 ML VIAL INH SCH ×2 (07:13→17:53)
[2020-10-17] MEDS: ALBUTEROL SULFATE 2.5 MG/0.5 ML INH NEB SOLN NEB SCH ×4 (07:13→17:53)
[2020-10-17 08:00] VITALS: BP 130/62
[2020-10-17] MEDS: (RENVELA) SEVELAMER **CARBONate** 800 MG TAB PO SCH ×3 (08:23→18:21)
[2020-10-17] MEDS: levETIRAcetam 250MG TABLET (KEPPRA) PO SCH (08:24)
[2020-10-17] MEDS: PANTOPRAZOLE 40MG TAB (PROTONIX) PO SCH (08:24)
[2020-10-17] MEDS: SERTRALINE 100 MG TAB PO SCH (08:24)
[2020-10-17] MEDS: AMIODARONE 200 MG TAB (PACERONE) PO SCH (08:24)
[2020-10-17] MEDS: clonazePAM 0.5 MG TAB PO PRN ×2 (09:30→20:37)
[2020-10-17] MEDS: oxyCODONE 5MG TAB PO PRN ×2 (09:34→20:37)
[2020-10-17] MEDS ORDERED: SODIUM CHLORIDE 0.9% 1000ML IV PRN (10:00)
[2020-10-17] MEDS ORDERED: LIDOCAINE 1% SDV 5ML VIAL SC PRN (10:00)
[2020-10-17 10:54] LABS: BASO % 0.6 % (0.0-1.0); EOS # 0.4 10^3/uL (0.0-0.5); EOS % 6.8 % (0.0-3.0); HEMATOCRIT 33.4 % (42.0-52.0); HEMOGLOBIN 9.7 g/dl (13.5-17.5); LYMPH # 1.9 10^3/uL (1.5-5.0); LYMPH % 30.1 % (24.0-44.0); MEAN CORPUSCULAR HEMOGLOBIN 29.9 pg (27.0-33.0); MEAN CORPUSCULAR VOLUME 103.1 fl (80.0-96.0); MONO # 0.3 10^3/uL (0.0-0.8); NEUTROPHILS # 3.6 10^3/uL (1.5-8.5); NEUTROPHILS % 58.2 % (36.0-66.0); PLATELET COUNT, AUTOMATED 170 10^3/uL (150-450); RED BLOOD COUNT 3.24 10^6/uL (4.30-6.10); WHITE BLOOD COUNT 6.2 10^3/uL (4.0-10.0)
[2020-10-17 11:11] LABS: ALBUMIN 2.5 GM/DL (3.2-5.2); CREATININE FOR GFR 4.8 MG/DL (0.70-1.30); GLOMERULAR FILTRATION RATE 13.9 (>60); PHOSPHORUS LEVEL 4.7 MG/DL (2.5-4.9); POTASSIUM SERUM 3.8 MEQ/L (3.5-5.1)
[2020-10-17] MEDS: SENOKOT S TAB PO SCH (20:37)
[2020-10-17] MEDS: PRAMIPEXOLE (MIRAPEX) 0.125 MG TAB PO SCH (20:37)
[2020-10-18] MEDS: ALBUTEROL SULFATE 2.5 MG/0.5 ML INH NEB SOLN NEB PRN ×4 (01:08→14:14)
[2020-10-18 06:00] VITALS: BP 134/62
[2020-10-18] MEDS: guaiFENesin SYRUP 200 MG/10 ML UDC PO SCH ×3 (06:02→17:24)
[2020-10-18] MEDS: HEPARIN SOD (PORCINE) 5000UNITS/ML 1ML VIAL/SYRINGE SQ SCH ×3 (06:03→22:27)
[2020-10-18] MEDS: ALBUTEROL SULFATE 2.5 MG/0.5 ML INH NEB SOLN NEB SCH ×4 (07:49→20:07)
[2020-10-18] MEDS: levETIRAcetam 250MG TABLET (KEPPRA) PO SCH (08:48)
[2020-10-18] MEDS: SERTRALINE 100 MG TAB PO SCH (08:48)
[2020-10-18] MEDS: AMIODARONE 200 MG TAB (PACERONE) PO SCH (08:48)
[2020-10-18] MEDS: (RENVELA) SEVELAMER **CARBONate** 800 MG TAB PO SCH ×3 (08:49→17:24)
[2020-10-18] MEDS: PANTOPRAZOLE 40MG TAB (PROTONIX) PO SCH (08:49)
--- NOTE | 2020-10-18 09:03 | IPN ---
PROGRESS NOTE DATE: 10/17/2020 SUBJECTIVE: Patient was seen and examined at the bedside today morning during hemodialysis procedure. He is tolerating the hemodialysis procedure well. He denies any active complaints at this time. OBJECTIVE: Vital signs: Temperature is 97.2 degrees Fahrenheit, blood pressure 130/62, pulse is 65, respiratory rate of 18, saturating 100% on trach collar at 28% FiO2. Intake and output: There is no urine output recorded. Weight in the bed scale is not available. PHYSICAL EXAMINATION: General: Patient is awake, alert, oriented times three, morbidly obese, laying in bed getting hemodialysis done. Head and neck exam: Pupils are equally round and reactive to light. Mucous membranes are moist. Neck is supple. He has a trach collar. Cardiovascular: S1, S2, regular rate. 2+ edema of bilateral thighs. Respiratory: Chest is clear to auscultation bilaterally. He has a trach collar. Abdomen: Soft, obese, positive bowel sounds. Central nervous system (SHEAR ASSEMBLER): No focal deficit. He moves bilateral upper extremities. LABORATORY REVIEW: CBC showed WBC 6.2, hemoglobin 9.7, platelets are 170. BMP showed sodium 139, potassium 3.8, chloride 101, bicarbonate 31, BUN 22, creatinine 4.8, albumin 2.5, phosphorous 4.7. CURRENT INPATIENT MEDICATIONS: Patient's medications were all reviewed by myself. There is no significant change in the medications today. ASSESSMENT AND PLAN: 1. End-stage renal disease. Patient is being dialyzed according to his regular schedule. Ultrafiltration goal is around four liters as tolerated by his blood pressure. 2. Anemia in end-stage renal disease. Continue current dose of Aranesp with dialysis. 3. Chronic kidney disease-mineral bone disease. Phosphorous level is controlled with current dose of Renvela 2.4 grams with meals.
[2020-10-18] MEDS: ACETYLCYSTEINE 10% 30 ML VIAL INH SCH ×2 (11:19→20:07)
[2020-10-18] MEDS: SENOKOT S TAB PO SCH (22:27)
[2020-10-18] MEDS: PRAMIPEXOLE (MIRAPEX) 0.125 MG TAB PO SCH (22:27)
[2020-10-18] MEDS: clonazePAM 0.5 MG TAB PO PRN (22:28)
[2020-10-18] MEDS: oxyCODONE 5MG TAB PO PRN (22:28)
[2020-10-19] MEDS: guaiFENesin SYRUP 200 MG/10 ML UDC PO SCH ×4 (00:16→18:00)
[2020-10-19] MEDS: ALBUTEROL SULFATE 2.5 MG/0.5 ML INH NEB SOLN NEB PRN ×4 (00:19→22:21)
[2020-10-19] MEDS: HEPARIN SOD (PORCINE) 5000UNITS/ML 1ML VIAL/SYRINGE SQ SCH ×3 (05:47→22:25)
[2020-10-19] MEDS: levETIRAcetam 250MG TABLET (KEPPRA) PO SCH (05:48)
[2020-10-19] MEDS: AMIODARONE 200 MG TAB (PACERONE) PO SCH (05:48)
[2020-10-19] MEDS: PANTOPRAZOLE 40MG TAB (PROTONIX) PO SCH (05:48)
[2020-10-19] MEDS: SERTRALINE 100 MG TAB PO SCH (05:48)
[2020-10-19 06:00] VITALS: BP 136/61
[2020-10-19] MEDS: ALBUTEROL SULFATE 2.5 MG/0.5 ML INH NEB SOLN NEB SCH ×4 (07:23→19:54)
[2020-10-19] MEDS: ACETYLCYSTEINE 10% 30 ML VIAL INH SCH ×2 (07:23→19:54)
[2020-10-19] MEDS: (RENVELA) SEVELAMER **CARBONate** 800 MG TAB PO SCH ×3 (08:00→18:00)
[2020-10-19] MEDS ORDERED: LIDOCAINE 1% SDV 5ML VIAL SC PRN (08:00)
--- NOTE | 2020-10-19 17:44 | IPN ---
PROGRESS NOTE DATE: 10/19/2020 Mr. Richard is seen this morning on his bedside during dialysis. He is resting comfortably and remains on trach collar. He denies any nausea, vomiting, fever, or chills. PHYSICAL EXAMINATION: Temperature 97.9 degrees Fahrenheit, heart rate 70 per minute, respiratory rate 18 per minute, blood pressure 136/60 mmHg, and oxygen saturation 98% on trach collar. Head is atraumatic. Neck veins impossible to be assessed. Tracheostomy is in place. Heart sounds are regular, and lungs have good bilateral air entry. Abdomen is obese, soft, and nontender. Bowel sounds normal. Extremities without any cyanosis or clubbing. Right arm arteriovenous (AV) fistula is currently being used for dialysis. Neurologically, he is awake and at his baseline mentation. Patient did not have any new labs done today. PROBLEMS: 1. End-stage renal disease. The patient is currently being dialyzed and tolerating dialysis well. 2, Respiratory failure. Patient is at his baseline with a tracheostomy. His respiratory failure is related to obesity associated hypoventilation, chronic obstructive pulmonary disease (COPD), and obstructive sleep apnea. His volume status is well compensated. We are removing about 3 liters of fluid today with dialysis. 3. Anemia. Patient has been on Aranesp, and complete blood count (CBC) will be checked again with next hemodialysis. 4. Hypertension. Blood pressure has been well controlled, and, in fact, it is somewhat low now during dialysis. His medications have been adjusted, and we have cut down his antihypertensives significantly. At present he is not receiving any medications other than amiodarone for his atrial fibrillation. 5. Atrial fibrillation. Patient has been in sinus rhythm on amiodarone. He is not a candidate for long-term anticoagulation.
[2020-10-19] MEDS ORDERED: oxyCODONE 5MG TAB PO PRN (22:15)
[2020-10-19] MEDS: PRAMIPEXOLE (MIRAPEX) 0.125 MG TAB PO SCH (22:23)
[2020-10-19] MEDS: SENOKOT S TAB PO SCH (22:23)
[2020-10-19] MEDS: clonazePAM 0.5 MG TAB PO PRN (22:24)
[2020-10-20] MEDS: ALBUTEROL SULFATE 2.5 MG/0.5 ML INH NEB SOLN NEB PRN ×3 (00:40→05:33)
[2020-10-20] MEDS: guaiFENesin SYRUP 200 MG/10 ML UDC PO SCH ×5 (00:52→23:15)
[2020-10-20] MEDS: HEPARIN SOD (PORCINE) 5000UNITS/ML 1ML VIAL/SYRINGE SQ SCH ×3 (05:33→21:25)
[2020-10-20 06:00] VITALS: BP 121/49
[2020-10-20] MEDS: ALBUTEROL SULFATE 2.5 MG/0.5 ML INH NEB SOLN NEB SCH ×4 (07:11→19:31)
[2020-10-20] MEDS: ACETYLCYSTEINE 10% 30 ML VIAL INH SCH ×2 (07:11→19:31)
[2020-10-20] MEDS: SERTRALINE 100 MG TAB PO SCH (09:38)
[2020-10-20] MEDS: PANTOPRAZOLE 40MG TAB (PROTONIX) PO SCH (09:39)
[2020-10-20] MEDS: (RENVELA) SEVELAMER **CARBONate** 800 MG TAB PO SCH ×3 (09:39→17:07)
[2020-10-20] MEDS: AMIODARONE 200 MG TAB (PACERONE) PO SCH (09:39)
[2020-10-20] MEDS: levETIRAcetam 250MG TABLET (KEPPRA) PO SCH (09:39)
--- NOTE | 2020-10-20 11:58 | IPN ---
PROGRESS NOTE DATE: 10/19/2020 SUBJECTIVE: Mr. Richard is seen this morning on his bedside. He is resting comfortably in his bed and has his trach collar on. He underwent hemodialysis yesterday and we were able to remove about 3 liters of fluid which he tolerated well. The patient denies any nausea or vomiting. His chronic hypoxia is unchanged. PHYSICAL EXAMINATION: VITAL SIGNS: Temperature 99.2 degrees Fahrenheit, heart rate 74 per minute, respiratory rate 18 per minute, blood pressure 121/49 mmHg, and oxygen saturation 98% on trach collar. HEENT: Head is atraumatic. Tracheostomy is in place. NECK: Neck veins difficult to assess. HEART: Heart sounds are regular. LUNGS: Bilateral moderate air entry without any wheezing or rales. ABDOMEN: Obese and nontender. Bowel sounds present. EXTREMITIES: Without any cyanosis or clubbing. Right arm AV fistula is patent. Bilateral lower extremity weakness is unchanged. The patient did not have any labs since October 17. PROBLEMS: 1. End-stage renal disease. The patient had last hemodialysis yesterday. His next dialysis will be scheduled for Wednesday. His volume status is well compensated and there is no urgent need for dialysis today. 2. Respiratory failure. This is chronic and related to obstructive sleep apnea, chronic obstructive pulmonary disease, and obesity-associated hypoventilation. Volume status is well compensated at present and he remains on trach collar. No intervention is needed today. 3. Anemia. His anemia did improve. However, after stopping Aranesp and acute illness, his anemia did get worse. We will recheck his CBC tomorrow. He is currently receiving Aranesp once a week which will be continued. 4. Hypertension. Blood pressure has been well controlled without any medications since his volume status improved. At present, no medications are needed.
[2020-10-20] MEDS: clonazePAM 0.5 MG TAB PO PRN (21:23)
[2020-10-20] MEDS: SENOKOT S TAB PO SCH (21:23)
[2020-10-20] MEDS: PRAMIPEXOLE (MIRAPEX) 0.125 MG TAB PO SCH (21:23)
[2020-10-20] MEDS: oxyCODONE 5MG TAB PO PRN (21:24)
[2020-10-20] MEDS ORDERED: PILL CUTTER 1 EACH XX PRN (21:30)
[2020-10-21] MEDS: ALBUTEROL SULFATE 2.5 MG/0.5 ML INH NEB SOLN NEB PRN ×2 (00:21→04:20)
[2020-10-21] MEDS: guaiFENesin SYRUP 200 MG/10 ML UDC PO SCH ×5 (05:15→23:46)
[2020-10-21] MEDS: HEPARIN SOD (PORCINE) 5000UNITS/ML 1ML VIAL/SYRINGE SQ SCH ×3 (05:16→20:49)
[2020-10-21 06:00] VITALS: BP 122/56
[2020-10-21] MEDS: ACETYLCYSTEINE 10% 30 ML VIAL INH SCH ×2 (07:17→19:48)
[2020-10-21] MEDS: ALBUTEROL SULFATE 2.5 MG/0.5 ML INH NEB SOLN NEB SCH ×4 (07:17→19:48)
[2020-10-21 08:57] LABS: HEMATOCRIT 35.8 % (42.0-52.0); HEMOGLOBIN 10.7 g/dl (13.5-17.5); MEAN CORPUSCULAR HEMOGLOBIN 30.8 pg (27.0-33.0); MEAN CORPUSCULAR HGB CONC 29.9 g/dl (32.0-36.5); MEAN CORPUSCULAR VOLUME 103.2 fl (80.0-96.0); PLATELET COUNT, AUTOMATED 164 10^3/uL (150-450); RED BLOOD COUNT 3.47 10^6/uL (4.30-6.10); WHITE BLOOD COUNT 6.3 10^3/uL (4.0-10.0)
[2020-10-21 09:08] LABS: ALBUMIN 2.5 GM/DL (3.2-5.2); CALCIUM LEVEL 9.6 MG/DL (8.5-10.1); CREATININE FOR GFR 5.01 MG/DL (0.70-1.30); GLOMERULAR FILTRATION RATE 13.2 (>60); POTASSIUM SERUM 3.9 MEQ/L (3.5-5.1)
[2020-10-21] MEDS: PANTOPRAZOLE 40MG TAB (PROTONIX) PO SCH (09:09)
[2020-10-21] MEDS: levETIRAcetam 250MG TABLET (KEPPRA) PO SCH (09:09)
[2020-10-21] MEDS: AMIODARONE 200 MG TAB (PACERONE) PO SCH (09:09)
[2020-10-21] MEDS: (RENVELA) SEVELAMER **CARBONate** 800 MG TAB PO SCH ×4 (09:09→18:00)
[2020-10-21] MEDS: SERTRALINE 100 MG TAB PO SCH (09:10)
[2020-10-21] MEDS: PRAMIPEXOLE (MIRAPEX) 0.125 MG TAB PO SCH (20:47)
[2020-10-21] MEDS: oxyCODONE 5MG TAB PO PRN (20:47)
[2020-10-21] MEDS: clonazePAM 0.5 MG TAB PO PRN (20:47)
[2020-10-21] MEDS: SENOKOT S TAB PO SCH (20:47)
[2020-10-22] MEDS: ALBUTEROL SULFATE 2.5 MG/0.5 ML INH NEB SOLN NEB PRN ×3 (00:14→23:59)
[2020-10-22] MEDS: HEPARIN SOD (PORCINE) 5000UNITS/ML 1ML VIAL/SYRINGE SQ SCH ×3 (05:37→21:21)
[2020-10-22] MEDS: guaiFENesin SYRUP 200 MG/10 ML UDC PO SCH ×4 (05:37→23:25)
[2020-10-22] MEDS: levETIRAcetam 250MG TABLET (KEPPRA) PO SCH (05:38)
[2020-10-22] MEDS: SERTRALINE 100 MG TAB PO SCH (05:38)
[2020-10-22] MEDS: PANTOPRAZOLE 40MG TAB (PROTONIX) PO SCH (05:38)
[2020-10-22] MEDS: AMIODARONE 200 MG TAB (PACERONE) PO SCH (05:38)
[2020-10-22 06:00] VITALS: BP 136/63
[2020-10-22] MEDS: (RENVELA) SEVELAMER **CARBONate** 800 MG TAB PO SCH ×3 (06:46→17:25)
[2020-10-22] MEDS: ACETYLCYSTEINE 10% 30 ML VIAL INH SCH ×2 (08:00→19:42)
[2020-10-22] MEDS: ALBUTEROL SULFATE 2.5 MG/0.5 ML INH NEB SOLN NEB SCH ×4 (08:00→19:42)
[2020-10-22] MEDS: SENOKOT S TAB PO SCH (21:00)
[2020-10-22] MEDS: PRAMIPEXOLE (MIRAPEX) 0.125 MG TAB PO SCH (21:20)
[2020-10-22] MEDS: clonazePAM 0.5 MG TAB PO PRN (21:20)
[2020-10-22] MEDS: oxyCODONE 5MG TAB PO PRN (21:20)
[2020-10-23] MEDS: ALBUTEROL SULFATE 2.5 MG/0.5 ML INH NEB SOLN NEB PRN ×2 (03:05→22:43)
[2020-10-23 06:00] VITALS: BP 100/60
[2020-10-23] MEDS: guaiFENesin SYRUP 200 MG/10 ML UDC PO SCH ×4 (06:00→23:53)
[2020-10-23] MEDS: ACETYLCYSTEINE 10% 30 ML VIAL INH SCH ×2 (07:47→19:31)
[2020-10-23] MEDS: ALBUTEROL SULFATE 2.5 MG/0.5 ML INH NEB SOLN NEB SCH ×4 (07:47→19:31)
[2020-10-23] MEDS: (RENVELA) SEVELAMER **CARBONate** 800 MG TAB PO SCH ×3 (08:00→18:36)
[2020-10-23] MEDS: clonazePAM 0.5 MG TAB PO PRN ×2 (12:13→20:50)
[2020-10-23] MEDS: HEPARIN SOD (PORCINE) 5000UNITS/ML 1ML VIAL/SYRINGE SQ SCH ×2 (12:14→20:50)
[2020-10-23] MEDS: oxyCODONE 5MG TAB PO PRN ×2 (12:14→20:51)
[2020-10-23] MEDS: SERTRALINE 100 MG TAB PO SCH (12:15)
[2020-10-23] MEDS: AMIODARONE 200 MG TAB (PACERONE) PO SCH (12:15)
[2020-10-23] MEDS: PANTOPRAZOLE 40MG TAB (PROTONIX) PO SCH (12:15)
[2020-10-23] MEDS: levETIRAcetam 250MG TABLET (KEPPRA) PO SCH (12:15)
--- NOTE | 2020-10-23 17:04 | IPNPDOC ---
Text Note Date of Service The patient was seen on 10/22/20. NOTE SUBJECTIVE: Awake, alert, no complaints today . Has intermittent back pain needing oxycodone. Has been on trach collar all week , No issues. Getting routine HD. He has not been using any ventilation at night, although it has been ordered for nocturnal use during sleep for his NISA and Obesity hypoventilation. He has a 8 Long Bivona tracheostomy tube. It is uncuffed so the machine jerman nuously alarms which is difficult for nurses and disturbs his sleep and he could not get any rest. As per RT he is again building up copious secretions inside the tube and as there is no inner canula it cannot be cleaned. Will get ABG to see if he is again building up Co2 or not. His tube may again need to be changed soon. He will probably need a different tracheostomy tube with inner canula and cuffed otherwise recurrent blockage will continue to occur and he wont be able to use CPAP with this tube so will go into recurrent Acute on chronic hypercarbic respiratory failure. Will discuss with Dr Ortega about what should be done next to solve this chronic issue. OBJECTIVE: VITAL SIGNS: Please see below. Afebrile. No hypoxemia GENERAL: Awake and alert. HEENT: PERRLA, EOMI CARDIOVASCULAR: Normal S1, S2. No M/R/G RESPIRATORY: diminished, otherwise breathing comfortably, tracheostomy status. ABDOMINAL: obese abdomen, soft, non tender, normal bowel sounds. EXTREMITIES: chronic zhen stasis dermatitis, heel float boots NEUROLOGICAL: AAO x 3, no focal neuro deficit Labs: reviewed ASSESSMENT and PLAN: 50 year old male with multiple comorbidities including ESRD on hemodialysis, tracheal stenosis pending placement to facility who is now being transferred to the ICU in the setting of newly noted somnolence with respiratory acidosis with hypercarbia without a clear precipitant likely 2/2 OHS and possible volume component though he was fairly compensated per his baseline and taking some centrally depressing psychotropes and pain medications that are chronic for him. Chronic respiratory failure with hypoxia and hypercarbia secondary to suspected restrictive lung disease from his obesity, obesity hypoventilation. Chronically has tracheostomy Supposed to Use pressure therapy during sleep due to his NISA and Obesity hypoventilation but does not use it as the machine alarms due to tracheal leak from the uncuffed tracheostomy tube. Morbid obesity/ NISA has tracheostomy but cannot use CPAP as the tube is uncuffed so it leaks. Tracheal stenosis The bronchoscopy on 09/11/20 revealed the tracheostomy tube, which was placed in [place], was only about 2 cm from the compa. This was placed because of a long-segment tracheal stenosis. There were no endobronchial lesions but there was lots of thick secretions. As per Dr Ortega the tracheal stenosis segment looked to be smaller than it was in May. It was probably now only about two tracheal rings, at the most three. The stenosis started approximately 2 cm from the tracheal stoma. Episodes of Acute on Chronic respiratory failure with hypoxia and hypercarbia with acute metabolic encephalopathy due to hypercarbia during his prolonged hospitalization. Due to various causes like medications, blockage of tracheostomy with large secretions Trach replacement/exchange 09/11/20 He was taken of alprazolam and placed on prn clonazepam. His seroquel was increased His nebs were changed form duonebs to albuterol only. Severe spinal stenosis chronic pain on oxycodone prn ESRD on hemodialysis Is on Wednesday, , Wednesday HD schedule. However getting dialysis today per Dr. [facility] onboard GERD PPI Depression/ Anxiety on sertraline, clonazepam. Paroxysmal Atrial fibrillation on amiodarone Seizure disorder on keppra Hypotension. C/w midodrine on dialysis days. Anemia. Stable, monitor and transfuse if indicated. hemoglobin level is optimal Was receiving Aranesp 100 mcg once a week with dialysis until recently Chronically bedridden. 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 DVT px Teds, scds.Heparin VS,Fishbone, I+O VS, Fishbone, I+O Vital Signs Date Time Temp Pulse Resp B/P (MAP) Pulse Ox O2 Delivery O2 Flow Rate FiO2 10/22/20 21:54 16 10/22/20 07:50 5.0 28 10/22/20 06:00 98.2 79 136/63 (87) 98 Trach Collar I&O- Last 24 Hours up to 6 AM 10/22/20 07:00 Intake Total 1800 ml Output Total 0 ml Balance 1800 ml NATALY CLEARY MD Oct 22, 2020 22:33
[2020-10-23] MEDS: SENOKOT S TAB PO SCH (20:49)
[2020-10-23] MEDS: PRAMIPEXOLE (MIRAPEX) 0.125 MG TAB PO SCH (20:49)
[2020-10-24] MEDS: ALBUTEROL SULFATE 2.5 MG/0.5 ML INH NEB SOLN NEB PRN ×5 (01:31→23:06)
[2020-10-24 06:00] VITALS: BP 132/66
[2020-10-24 06:20] LABS: ABG BASE EXCESS 0.9 (-2.0-2.0); ABG HCO3 29.5 MEQ/L (22.0-26.0); ABG O2 SATURATION 95.2 % (95.0-99.0); ABG PARTIAL PRESSURE O2 80.2 mmHg (75.0-100.0); ABG STANDARD HCO3 25.2 MEQ/L (22.0-26.0); ABG TOTAL CO2 31.7 MEQ/L (22.0-29.0)
[2020-10-24 06:27] LABS: ABG PARTIAL PRESSURE CO2 70.2 mmHg (35.0-45.0); ABG pH (ARTERIAL) 7.242 UNITS (7.350-7.450)
[2020-10-24] MEDS: guaiFENesin SYRUP 200 MG/10 ML UDC PO SCH ×3 (06:32→18:00)
[2020-10-24] MEDS: SERTRALINE 100 MG TAB PO SCH (06:32)
[2020-10-24] MEDS: PANTOPRAZOLE 40MG TAB (PROTONIX) PO SCH (06:32)
[2020-10-24] MEDS: AMIODARONE 200 MG TAB (PACERONE) PO SCH (06:32)
[2020-10-24] MEDS: levETIRAcetam 250MG TABLET (KEPPRA) PO SCH (06:32)
[2020-10-24] MEDS: HEPARIN SOD (PORCINE) 5000UNITS/ML 1ML VIAL/SYRINGE SQ SCH ×2 (06:33→20:07)
[2020-10-24] MEDS: ACETYLCYSTEINE 10% 30 ML VIAL INH SCH ×2 (07:17→18:49)
[2020-10-24] MEDS: ALBUTEROL SULFATE 2.5 MG/0.5 ML INH NEB SOLN NEB SCH ×4 (07:17→18:49)
[2020-10-24] MEDS: (RENVELA) SEVELAMER **CARBONate** 800 MG TAB PO SCH ×3 (08:00→18:00)
[2020-10-24 09:34] LABS: ALBUMIN 2.5 GM/DL (3.2-5.2); CALCIUM LEVEL 9.2 MG/DL (8.5-10.1); CREATININE FOR GFR 5.18 MG/DL (0.70-1.30); GLOMERULAR FILTRATION RATE 12.7 (>60); POTASSIUM SERUM 4.9 MEQ/L (3.5-5.1)
[2020-10-24] MEDS: DARBEPOETIN 200MCG/0.4ML *DIALYSIS* SYRINGE (J0882 PER 1MCG) IV SCH (10:47)
--- NOTE | 2020-10-24 12:45 | IPN ---
PROGRESS NOTE DATE: 10/24/2020 Mr. Richard is seen this morning during hemodialysis. He is awake and alert at present and remains on trach collar. He denies any fever or chills. PHYSICAL EXAMINATION: Temperature 98.2 degrees Fahrenheit, heart rate 88 per minute, respiratory rate 18 per minute. His head is atraumatic. Neck is supple, and tracheostomy is in place. Jugular venous distention (JVD) difficult to be assessed. Heart sounds are regular and lungs with diminished breath sounds bilaterally. Abdomen obese, soft, and nontender. Extremities without any cyanosis or clubbing. Right arm arteriovenous (AV) fistula is currently being used for dialysis. Neurologically, he seems at his baseline mentation. Blood gas done this morning showed a pH of 7.24, pCO7 of 70.2, and pO2 of 80.2. Bicarbonate was 25. His chemistry today showed sodium 138, potassium 4.9, CO2 of 27, BUN 32, and creatinine 5.18. Calcium 9.2 and phosphorus 5.0. Albumin level 2.5. PROBLEMS: 1. End-stage renal disease. Patient remains dialysis dependent and is being dialyzed today. He is tolerating his dialysis treatment well. 2. Respiratory failure. This is related to obstructive sleep apnea and obesity-associated hypoventilation. We are moving about 4 liters of fluid today as tolerated. His volume status seems clinically well compensated. 3. Anemia. His anemia has been stable, and he will continue with once a week Aranesp here in the hospital. 4. Hypertension. Blood pressure has been well controlled without any medications. 5. Anemia. His anemia has been stable and is being managed with dialysis. No changes are needed today.
[2020-10-24] MEDS: PRAMIPEXOLE (MIRAPEX) 0.125 MG TAB PO SCH (20:04)
[2020-10-24] MEDS: SENOKOT S TAB PO SCH (20:04)
[2020-10-24] MEDS: clonazePAM 0.5 MG TAB PO PRN (20:08)
[2020-10-24] MEDS: oxyCODONE 5MG TAB PO PRN (20:08)
[2020-10-25] MEDS: guaiFENesin SYRUP 200 MG/10 ML UDC PO SCH ×4 (00:07→17:58)
[2020-10-25] MEDS: ALBUTEROL SULFATE 2.5 MG/0.5 ML INH NEB SOLN NEB PRN ×6 (01:30→23:48)
[2020-10-25 06:00] VITALS: BP 113/43
[2020-10-25] MEDS: ALBUTEROL SULFATE 2.5 MG/0.5 ML INH NEB SOLN NEB SCH ×4 (07:10→18:23)
[2020-10-25] MEDS: ACETYLCYSTEINE 10% 30 ML VIAL INH SCH ×2 (07:10→18:23)
[2020-10-25] MEDS: HEPARIN SOD (PORCINE) 5000UNITS/ML 1ML VIAL/SYRINGE SQ SCH ×2 (09:10→21:56)
[2020-10-25] MEDS: AMIODARONE 200 MG TAB (PACERONE) PO SCH (09:10)
[2020-10-25] MEDS: SERTRALINE 100 MG TAB PO SCH (09:10)
[2020-10-25] MEDS: PANTOPRAZOLE 40MG TAB (PROTONIX) PO SCH (09:10)
[2020-10-25] MEDS: (RENVELA) SEVELAMER **CARBONate** 800 MG TAB PO SCH ×3 (09:11→16:39)
[2020-10-25] MEDS: levETIRAcetam 250MG TABLET (KEPPRA) PO SCH (09:11)
--- NOTE | 2020-10-25 12:30 | REP ---
INDICATION: pneumonia? COMPARISON: 10/07/2020 TECHNIQUE: Portable AP view of the chest FINDINGS: Tracheostomy overlies the airway and remains stable. Marked cardiomegaly is again noted and unchanged. The lung kline demonstrate ill-defined pulmonary vasculature with cephalization and increased interstitial markings suggesting pulmonary vascular congestion/pulmonary edema. No focal consolidation. No effusion. No pneumothorax. Skeletal structures are stable. IMPRESSION: Pulmonary vascular congestion/pulmonary edema pattern. No focal consolidation or effusion. <Electronically signed by Juma March > 10/25/20 [id number]
--- NOTE | 2020-10-25 15:31 | IPN ---
NEPHROLOGY PROGRESS NOTE DATE: 10/25/2020 SUBJECTIVE: The patient is seen this morning at his bedside. He had developed worsening respiratory problems and has required frequent suctioning again. He is now back on the ventilator via his tracheostomy due to increased pco2 on his recent blood gas. He did have hemodialysis yesterday and removed about 4 liters of fluid. PHYSICAL EXAMINATION: VITAL SIGNS: Temperature is 97.9 degrees Fahrenheit, heart rate 70 per minute and respiratory rate 18 per minute. Blood pressure 113/43 mm of mercury and oxygen saturation is 99%, currently hooked to the ventilator. HEENT: His head is atraumatic. NECK: Veins are difficult to be assessed. Tracheostomy is in place and hooked to the ventilator now. HEART: Regular. LUNGS: Good bilateral air entry. ABDOMEN: Obese and nontender and bowel sounds are present. EXTREMITIES: Without any cyanosis or clubbing. Right arm AV fistula is present. Lower extremity weakness due to severe spinal stenosis is unchanged. LABORATORY STUDIES: His blood gas yesterday showed a pH of 7.24, pco2 70 and pO2 80 with bicarbonate 25. His BUN was 32 and creatinine 5.18. Sodium was 138 and potassium 4.9. IMAGING: The patient had a chest x-ray done just a short time ago which did show pulmonary vascular congestion and no focal consolidation or effusion. PROBLEMS: 1. Respiratory failure most likely this is multifactorial. He does have morbid obesity associated hypoventilation, obstructive sleep apnea and chronic obstructive pulmonary disease. We will keep our efforts to remove as much fluid as he can tolerate. He will be scheduled for next dialysis tomorrow and we will try to remove about 4 liters of fluid and see if that would help. He also has a problem with his tracheostomy which could be the reason for his respiratory issues and Dr. Ortega is evaluating him for possible dilatation of his tracheal stenosis. 2. End-stage renal disease - The patient has been very well dialyzed and will be dialyzed again tomorrow. 3. Anemia his anemia has been stable and at this point does not need any urgent intervention.
--- NOTE | 2020-10-25 15:37 | IPN ---
PROGRESS NOTE DATE: 10/25/2020 Patient seen at the request of Dr. Bernal of the hospitalist service for evaluation of his tracheostomy. Tracheotomy tube was changed last August for a [place]iley non-cuffed 120 mm flexible Bivona tube. He has a tracheal stenosis, the Bivona tube was placed at [place] after referring him down the tracheal stenosis. The last week or so he has been having more shortness of breath with increased secretions. He has required the ventilator, whereas he had not required before for his obstructive sleep apnea. He has a significant air leak. The tracheostomy that was placed was a non-cuffed variety. His blood gases last night show a pH of 7.24 with a pCO2 of 7 and a pO2 of 80. He is definitely retaining, as his baseline CO2 varies between 55 and 45 with a pH around 7.2 to 7.39. He is on chronic dialysis. As noted above, he was found to have tracheal stenosis between 2 and 3 rings in length from a previously placed tracheostomy, where it was stenotic at the end of the Shiley cuff into the Shiley tracheostomy tube. [place] was able to dilate him and to replace it with a Bivona. While it is not ideal, as Bivona does not have an inner cannula, it is the best that we can do. I therefore am going to take him to the operating room tomorrow, where I will again dilate him and exchange his Bivona non-cuffed for a cuffed tracheostomy tube over a guidewire and dilator. This may be a monthly or every other month exercise that will have to be undertaken.
[2020-10-25] MEDS: clonazePAM 0.5 MG TAB PO PRN (21:57)
[2020-10-25] MEDS: PRAMIPEXOLE (MIRAPEX) 0.125 MG TAB PO SCH (21:57)
[2020-10-25] MEDS: SENOKOT S TAB PO SCH (21:57)
[2020-10-25] MEDS: oxyCODONE 5MG TAB PO PRN (21:57)
[2020-10-25 23:51] LABS: ABG BASE EXCESS -6.4 (-2.0-2.0); ABG HCO3 20.4 MEQ/L (22.0-26.0); ABG O2 SATURATION 98.7 % (95.0-99.0); ABG PARTIAL PRESSURE CO2 45.8 mmHg (35.0-45.0); ABG PARTIAL PRESSURE O2 155.7 mmHg (75.0-100.0); ABG STANDARD HCO3 19.2 MEQ/L (22.0-26.0); ABG TOTAL CO2 21.8 MEQ/L (22.0-29.0); ABG pH (ARTERIAL) 7.266 UNITS (7.350-7.450)
[2020-10-26] MEDS: guaiFENesin SYRUP 200 MG/10 ML UDC PO SCH ×4 (00:29→17:43)
[2020-10-26] MEDS: ALBUTEROL SULFATE 2.5 MG/0.5 ML INH NEB SOLN NEB PRN ×4 (02:45→21:57)
[2020-10-26] MEDS: PANTOPRAZOLE 40MG TAB (PROTONIX) PO SCH (05:04)
[2020-10-26] MEDS: AMIODARONE 200 MG TAB (PACERONE) PO SCH (05:04)
[2020-10-26] MEDS: SERTRALINE 100 MG TAB PO SCH (05:04)
[2020-10-26] MEDS: levETIRAcetam 250MG TABLET (KEPPRA) PO SCH (05:05)
[2020-10-26] MEDS: HEPARIN SOD (PORCINE) 5000UNITS/ML 1ML VIAL/SYRINGE SQ SCH ×2 (05:17→20:34)
[2020-10-26 06:00] VITALS: BP 128/64
[2020-10-26] MEDS: ALBUTEROL SULFATE 2.5 MG/0.5 ML INH NEB SOLN NEB SCH ×4 (07:50→19:46)
[2020-10-26] MEDS: ACETYLCYSTEINE 10% 30 ML VIAL INH SCH ×2 (07:51→19:46)
[2020-10-26] MEDS: (RENVELA) SEVELAMER **CARBONate** 800 MG TAB PO SCH ×3 (08:00→17:43)
--- NOTE | 2020-10-26 12:10 | IPN ---
PROGRESS NOTE DATE: 10/26/2020 SUBJECTIVE: Matthew is seen and examined this morning in the Hemodialysis Unit recommended his chronic treatment. He denies any complaints, specifically denies any shortness of breath at rest and his hemodialysis treatment is without any acute issue and we are removing three to four liters as tolerated by hemodynamics. PHYSICAL EXAMINATION: VITAL SIGNS: Temperature 98.0, pulse 69, respiratory rate 18, blood pressure is 128/64, saturating 98% on trach collar. GENERAL: The patient is seen in the Hemodialysis Unit receiving his treatment. He is awake, alert and oriented and in no distress. He makes eye contact and attempts to mouth his speech. HEENT: Tongue is moist. Tracheostomy is in place. HEART: Heart sounds are regular. There is no peripheral edema. Peripheral pulses palpable. LUNGS: Symmetric air entry. No crackles or rales. ABDOMEN: Obese, soft and nontender. EXTREMITIES: His right arm AV fistula is presently in use. There is no cyanosis or clubbing. There is unchanged lower extremity weakness. LABORATORY DATA: White count is 6.3, white count is 10.7, platelets are 164,000, sodium is 138, potassium is 4.9, bicarbonate 27, BUN 32. Phosphorus is 5.0. Chest x-ray done yesterday: Pulmonary vascular congestion and pulmonary edema pattern. INPATIENT MEDICATIONS: Reviewed by myself and no change as compared to yesterday. PROBLEMS: 1. Endstage renal disease on hemodialysis. The patient is on a Wednesday, and Wednesday schedule. His chest x-ray yesterday showed pulmonary vascular congestion. He is being dialyzed today with goal fluid removal of 3 to 4 liters as tolerated by hemodynamics. We will try to keep him as much as possible on the dry side with dialysis and I will repeat a chest x-ray in a couple of days to see if we need to do any extra dialysis treatments. 2. Chronic tracheostomy status. Blood gas on October 24 showed significant CO2 retention. He is for the OR later today with Dr. Ortega for exchange of his tracheostomy tube. Recent chest x-ray noted. 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 He usually has around 3 liters of fluid removed with each dialysis treatment. Recently, he has been having increasing secretions. Will repeat a chest x-ray after his tracheostomy has been exchanged to see if he would benefit from an extra dialysis treatment. 3. Anemia of chronic renal failure. Hemoglobin is 10.7 on last check. Labs are checked intermittently. He continues on Aranesp with dialysis. 4. Renal osteodystrophy. His parathyroid hormone level, calcium and phosphorus were all acceptable.
[2020-10-26] MEDS: clonazePAM 0.5 MG TAB PO PRN (20:33)
[2020-10-26] MEDS: oxyCODONE 5MG TAB PO PRN (20:34)
[2020-10-26] MEDS: PRAMIPEXOLE (MIRAPEX) 0.125 MG TAB PO SCH (20:34)
[2020-10-26] MEDS: SENOKOT S TAB PO SCH (20:34)
[2020-10-27] MEDS: guaiFENesin SYRUP 200 MG/10 ML UDC PO SCH ×4 (00:30→18:00)
[2020-10-27] MEDS: ALBUTEROL SULFATE 2.5 MG/0.5 ML INH NEB SOLN NEB PRN ×3 (00:30→20:26)
[2020-10-27 06:00] VITALS: BP 134/47
[2020-10-27] MEDS: ALBUTEROL SULFATE 2.5 MG/0.5 ML INH NEB SOLN NEB SCH ×4 (07:39→18:27)
[2020-10-27] MEDS: ACETYLCYSTEINE 10% 30 ML VIAL INH SCH ×2 (07:39→18:27)
[2020-10-27] MEDS: (RENVELA) SEVELAMER **CARBONate** 800 MG TAB PO SCH ×3 (08:00→18:00)
[2020-10-27] MEDS: levETIRAcetam 250MG TABLET (KEPPRA) PO SCH (11:41)
[2020-10-27] MEDS: PANTOPRAZOLE 40MG TAB (PROTONIX) PO SCH (11:41)
[2020-10-27] MEDS: AMIODARONE 200 MG TAB (PACERONE) PO SCH (11:41)
[2020-10-27] MEDS: SERTRALINE 100 MG TAB PO SCH (11:41)
[2020-10-27] MEDS: HEPARIN SOD (PORCINE) 5000UNITS/ML 1ML VIAL/SYRINGE SQ SCH ×2 (11:41→20:16)
[2020-10-27] MEDS: PRAMIPEXOLE (MIRAPEX) 0.125 MG TAB PO SCH (20:16)
[2020-10-27] MEDS: oxyCODONE 5MG TAB PO PRN (20:16)
[2020-10-27] MEDS: SENOKOT S TAB PO SCH (20:16)
[2020-10-27] MEDS: clonazePAM 0.5 MG TAB PO PRN (20:17)
[2020-10-28] MEDS: guaiFENesin SYRUP 200 MG/10 ML UDC PO SCH ×5 (00:27→23:39)
[2020-10-28] MEDS: ALBUTEROL SULFATE 2.5 MG/0.5 ML INH NEB SOLN NEB PRN ×4 (00:49→22:22)
[2020-10-28 06:00] VITALS: BP 133/70
[2020-10-28] MEDS: ALBUTEROL SULFATE 2.5 MG/0.5 ML INH NEB SOLN NEB SCH ×4 (07:08→19:24)
[2020-10-28] MEDS: ACETYLCYSTEINE 10% 30 ML VIAL INH SCH (07:08)
[2020-10-28] MEDS: (RENVELA) SEVELAMER **CARBONate** 800 MG TAB PO SCH ×3 (08:00→18:00)
[2020-10-28 08:38] LABS: HEMATOCRIT 36.3 % (42.0-52.0); HEMOGLOBIN 10.5 g/dl (13.5-17.5); MEAN CORPUSCULAR HEMOGLOBIN 30.3 pg (27.0-33.0); MEAN CORPUSCULAR HGB CONC 28.9 g/dl (32.0-36.5); MEAN CORPUSCULAR VOLUME 104.9 fl (80.0-96.0); PLATELET COUNT, AUTOMATED 129 10^3/uL (150-450); RED BLOOD COUNT 3.46 10^6/uL (4.30-6.10); WHITE BLOOD COUNT 5.9 10^3/uL (4.0-10.0)
[2020-10-28 09:14] LABS: CALCIUM LEVEL 8.9 MG/DL (8.5-10.1); CREATININE FOR GFR 5.34 MG/DL (0.70-1.30); GLOMERULAR FILTRATION RATE 12.3 (>60); POTASSIUM SERUM 4.8 MEQ/L (3.5-5.1)
[2020-10-28] MEDS: SERTRALINE 100 MG TAB PO SCH (10:59)
[2020-10-28] MEDS: PANTOPRAZOLE 40MG TAB (PROTONIX) PO SCH (10:59)
[2020-10-28] MEDS: levETIRAcetam 250MG TABLET (KEPPRA) PO SCH (10:59)
[2020-10-28] MEDS: AMIODARONE 200 MG TAB (PACERONE) PO SCH (10:59)
[2020-10-28] MEDS: HEPARIN SOD (PORCINE) 5000UNITS/ML 1ML VIAL/SYRINGE SQ SCH ×2 (11:00→21:54)
--- NOTE | 2020-10-28 11:15 | REP ---
INDICATION: re-eval pulm edema COMPARISON: 10/25/2020, 08/01/2020 TECHNIQUE: Portable AP view of the chest FINDINGS: Tracheostomy overlies the airway in stable position. Cardiomegaly again noted and unchanged. Increased vascular and interstitial markings suggest chronic pulmonary vascular congestion and are similar to multiple prior examinations. Underlying interstitial pneumonia cannot be excluded. No focal consolidation, effusion, or pneumothorax. IMPRESSION: Cardiomegaly and presumed chronic pulmonary vascular congestion. No focal consolidation or effusion. <Electronically signed by Juma March > 10/28/20 1111
[2020-10-28] MEDS ORDERED: SODIUM CHLORIDE 0.9% 1000ML IV PRN (12:45)
[2020-10-28] MEDS ORDERED: LIDOCAINE 1% SDV 5ML VIAL SC PRN (12:45)
--- NOTE | 2020-10-28 13:07 | IPN ---
INPATIENT PROGRESS NOTE DATE: 10/28/2020 SUBJECTIVE: Matthew is seen and examined this morning at the bedside. He did not have his tracheostomy exchanged. Nursing staff reports that he has had increased secretions when he is suctioned. I had a repeat chest x-ray done today that continues to show pulmonary vascular congestion. I discussed with him regarding doing an extra dialysis treatment today and he is agreeable. He is seen later in the afternoon as well on dialysis. PHYSICAL EXAMINATION: Temperature 98, pulse 62, respiratory rate 20, blood pressure 133/70, saturating 97% on trach collar. Intake yesterday was 2300. Goal fluid removal with dialysis today will be 3000. Weight on the bed scale today is not recorded. General: Patient is seen lying in bed using his iPad in no distress, a morbidly obese male awake, alert and oriented. He attempts to mouth his speech and is cooperative with the exam. HEENT: He makes eye contact. Tongue is moist. Neck: Tracheostomy is in place. Heart: Sounds are regular. There is trace peripheral edema and dependent edema. Lungs: Symmetric air entry and breath sounds are distant and diminished. Abdomen: Soft, obese and nontender. Extremities: The right arm AV fistula is patent and in use. There is no clubbing or cyanosis. Skin: Normal temperature and turgor. Neurologic: He is at baseline mentation, oriented and interactive. LABORATORY DATA: Today's labs show white count 5.9, hemoglobin 10, 5, platelets 129. Sodium 137, potassium 4.8, bicarbonate 25. RADIOLOGY STUDIES: Chest x-ray done today shows cardiomegaly and pulmonary vascular congestion. INPATIENT MEDICATIONS: Reviewed by myself. He is receiving Mucomyst inhaled twice a day. The remainder of medications are unchanged as compared to yesterday. PROBLEMS/PLAN: 1. End-stage renal disease: On hemodialysis on a Wednesday, , Wednesday schedule. The patient has some evidence of mild volume overload including his last 2 chest x-rays that both show pulmonary vascular congestion. He is going to get an extra dialysis treatment today with goal fluid removal of 3 liters and I will dialyze him again on Wednesday, October 29 to remove another 3 liters and we will try to keep him as much as possible on the dry side. I will get a repeat chest x-ray later this week and we will continue to assess him for need for extra dialysis treatments. 2. Chronic tracheostomy status: Nursing staff reports some increased secretions when he is suctioned. Chest x-ray show some vascular congestion. An extra dialysis treatment is being arranged today. He is also pending exchange of the tracheostomy tube with Dr. Ortega, but I am not sure when that is going to be scheduled. 3. Anemia of chronic renal failure: Hemoglobin remains at goal and labs are checked intermittently and he continues on Aranesp with dialysis. 4. Renal osteodystrophy: His corrected calcium, phosphorus and most recent parathyroid hormone levels are all acceptable and no changes are being made to his current binder.
[2020-10-28] MEDS: ACETYLCYSTEINE 20% 4 ML VIAL (200MG/ML) INH SCH (19:23)
[2020-10-28] MEDS: SENOKOT S TAB PO SCH (21:55)
[2020-10-28] MEDS: PRAMIPEXOLE (MIRAPEX) 0.125 MG TAB PO SCH (21:55)
[2020-10-28] MEDS: oxyCODONE 5MG TAB PO PRN (21:55)
[2020-10-28] MEDS: clonazePAM 0.5 MG TAB PO PRN (21:59)
[2020-10-29] MEDS: ALBUTEROL SULFATE 2.5 MG/0.5 ML INH NEB SOLN NEB PRN ×4 (02:12→22:06)
[2020-10-29] MEDS: guaiFENesin SYRUP 200 MG/10 ML UDC PO SCH ×3 (05:07→17:36)
[2020-10-29] MEDS: HEPARIN SOD (PORCINE) 5000UNITS/ML 1ML VIAL/SYRINGE SQ SCH ×2 (05:07→21:49)
[2020-10-29] MEDS: SERTRALINE 100 MG TAB PO SCH (05:08)
[2020-10-29] MEDS: PANTOPRAZOLE 40MG TAB (PROTONIX) PO SCH (05:08)
[2020-10-29] MEDS: levETIRAcetam 250MG TABLET (KEPPRA) PO SCH (05:08)
[2020-10-29] MEDS: AMIODARONE 200 MG TAB (PACERONE) PO SCH (05:09)
[2020-10-29 06:00] VITALS: BP 137/47
[2020-10-29] MEDS: (RENVELA) SEVELAMER **CARBONate** 800 MG TAB PO SCH ×3 (08:00→17:36)
[2020-10-29] MEDS: ALBUTEROL SULFATE 2.5 MG/0.5 ML INH NEB SOLN NEB SCH ×4 (10:05→19:39)
[2020-10-29] MEDS: ACETYLCYSTEINE 20% 4 ML VIAL (200MG/ML) INH SCH ×2 (10:05→19:39)
[2020-10-29] MEDS ORDERED: SODIUM CHLORIDE 0.9% 1000ML IV PRN (12:00)
[2020-10-29] MEDS ORDERED: LIDOCAINE 1% SDV 5ML VIAL SC PRN (12:00)
--- NOTE | 2020-10-29 12:30 | IPN ---
INPATIENT PROGRESS NOTE DATE: 10/29/20 SUBJECTIVE: Patient is seen and examined this morning at the bedside and later in the afternoon receiving his hemodialysis. His chest x-ray yesterday showed pulmonary vascular congestion and yesterday he received an extra dialysis treatment with 3 liters of fluid removed which he tolerated without any issues and today he is having his usual dialysis treatment and we will try and take off another 3 liters. PHYSICAL EXAMINATION: Vital signs: Temperature 98.6, pulse 75, respiratory rate 20, blood pressure 137/47, saturating 96% on trach collar. Intake yesterday was 1320, dialysis yesterday removed 3 liters. Weight on the bed scale today is not recorded. General: Patient is seen lying in bed in his room and later in the dialysis unit awake, alert and in no apparent distress, morbidly obese. HEENT: Extraocular muscles are intact. Tongue is moist. Neck: There is a trach collar in place. Heart: Sounds on anterior auscultation S1 and S2. There is trace leg edema bilaterally. Lungs: Symmetric air entry and I do not appreciate crackles. There is no tachypnea. Abdomen: Soft, obese and nontender. Extremities: The right arm AV fistula is patent and in use. There is no clubbing or cyanosis. Skin: Normal temperature and turgor. Neurologic: Oriented times 3, at baseline mentation, interactive. LABORATORY DATA: There are no new labs from today. IMAGING: Chest x-ray yesterday showed pulmonary vascular congestion and it was done pre-dialysis. INPATIENT MEDICATIONS: Reviewed by myself and no changes compared to yesterday. PROBLEMS/PLAN: 1. End-stage renal disease: On hemodialysis on a Wednesday, , Wednesday schedule. Patient received an extra dialysis treatment yesterday with 3 liter of fluid removed because his last 2 chest x-rays showed pulmonary vascular congestion and he has been having increased secretions from the tracheostomy when he is suctioned. Today he is having his usual dialysis treatment and I am going to try and remove another 3 liters. We are trying to keep him as much as possible on the dry side. We will repeat a chest x-ray later this week and we will continue to assess him regularly for need of extra dialysis treatments. 2. Chronic tracheostomy status, chest x-ray with vascular congestion: He had an extra dialysis treatment yesterday. He is also pending exchange of tracheostomy tube with Dr. Ortega, but I am not sure when that is going to be scheduled. His oxygen requirements remain unchanged. 3. Anemia of chronic renal failure: Labs are checked intermittently. Hemoglobin remains at goal. He continues on Aranesp. 4. Renal osteodystrophy: His calcium, phosphorus and most recent parathyroid hormones are all acceptable and no change is being made to his current binder. 5. Morbid obesity complicating his care.
[2020-10-29] MEDS: SENOKOT S TAB PO SCH (21:49)
[2020-10-29] MEDS: clonazePAM 0.5 MG TAB PO PRN (21:49)
[2020-10-29] MEDS: PRAMIPEXOLE (MIRAPEX) 0.125 MG TAB PO SCH (21:49)
[2020-10-29] MEDS: oxyCODONE 5MG TAB PO PRN (21:50)
[2020-10-30] MEDS: ALBUTEROL SULFATE 2.5 MG/0.5 ML INH NEB SOLN NEB PRN ×5 (00:10→23:37)
[2020-10-30] MEDS: guaiFENesin SYRUP 200 MG/10 ML UDC PO SCH ×4 (00:56→18:00)
[2020-10-30 06:00] VITALS: BP 136/70
[2020-10-30] MEDS: ACETYLCYSTEINE 20% 4 ML VIAL (200MG/ML) INH SCH ×2 (07:16→20:00)
[2020-10-30] MEDS: ALBUTEROL SULFATE 2.5 MG/0.5 ML INH NEB SOLN NEB SCH ×4 (07:19→17:38)
[2020-10-30] MEDS: (RENVELA) SEVELAMER **CARBONate** 800 MG TAB PO SCH ×4 (08:59→18:00)
[2020-10-30] MEDS: levETIRAcetam 250MG TABLET (KEPPRA) PO SCH (09:00)
[2020-10-30] MEDS: HEPARIN SOD (PORCINE) 5000UNITS/ML 1ML VIAL/SYRINGE SQ SCH ×2 (09:00→21:32)
[2020-10-30] MEDS: AMIODARONE 200 MG TAB (PACERONE) PO SCH (09:00)
[2020-10-30] MEDS: SERTRALINE 100 MG TAB PO SCH (09:00)
[2020-10-30] MEDS: PANTOPRAZOLE 40MG TAB (PROTONIX) PO SCH (09:00)
[2020-10-30] MEDS: PRAMIPEXOLE (MIRAPEX) 0.125 MG TAB PO SCH (21:16)
[2020-10-30] MEDS: SENOKOT S TAB PO SCH (21:16)
[2020-10-30] MEDS: clonazePAM 0.5 MG TAB PO PRN (21:17)
[2020-10-30] MEDS: oxyCODONE 5MG TAB PO PRN (21:17)
[2020-10-30] MEDS ORDERED: SODIUM CHLORIDE 0.9% 1000ML IV PRN (22:45)
[2020-10-30] MEDS ORDERED: LIDOCAINE 1% SDV 5ML VIAL SC PRN (22:45)
[2020-10-31] MEDS: ALBUTEROL SULFATE 2.5 MG/0.5 ML INH NEB SOLN NEB PRN ×4 (02:34→21:38)
[2020-10-31] MEDS: guaiFENesin SYRUP 200 MG/10 ML UDC PO SCH ×5 (05:55→23:56)
[2020-10-31] MEDS: (RENVELA) SEVELAMER **CARBONate** 800 MG TAB PO SCH ×3 (05:56→18:23)
[2020-10-31] MEDS: HEPARIN SOD (PORCINE) 5000UNITS/ML 1ML VIAL/SYRINGE SQ SCH ×2 (05:56→21:35)
[2020-10-31] MEDS: levETIRAcetam 250MG TABLET (KEPPRA) PO SCH (05:56)
[2020-10-31] MEDS: SERTRALINE 100 MG TAB PO SCH (05:57)
[2020-10-31] MEDS: AMIODARONE 200 MG TAB (PACERONE) PO SCH (05:57)
[2020-10-31] MEDS: PANTOPRAZOLE 40MG TAB (PROTONIX) PO SCH (05:57)
[2020-10-31 06:00] VITALS: BP 159/52
[2020-10-31] MEDS: ALBUTEROL SULFATE 2.5 MG/0.5 ML INH NEB SOLN NEB SCH ×4 (07:15→18:06)
[2020-10-31] MEDS: ACETYLCYSTEINE 20% 4 ML VIAL (200MG/ML) INH SCH ×2 (07:15→18:06)
[2020-10-31] MEDS: DARBEPOETIN 100 MCG/0.5 ML *DIALYSIS* SYRINGE (J0882) IV SCH (11:06)
--- NOTE | 2020-10-31 13:16 | IPN ---
PROGRESS NOTE DATE: 10/31/2020 SUBJECTIVE: Matthew is seen and examined this morning in the hemodialysis unit receiving his treatment. He offers no new complaints. No shortness of breath. Has not needed more frequent suctioning. His dialysis treatment has been uneventful. Temperature 97.8, pulse 65, respiratory rate 19, blood pressure 159/52, saturating 94% on trach collar. Intake yesterday was 1700. Goal fluid removal today is 3.5 liters. General: Patient is seen receiving his treatment, awake, alert and in no apparent distress. Extraocular muscles are intact. Tongue is moist. There is a tracheostomy. Heart sounds are regular, S1, S2. There is dependent edema present at the sacrum and hips. Lungs: Anterior auscultation only. Symmetric breath sounds. No crackle or rale. Abdomen is soft, obese, and nontender. Extremities show no peripheral edema of the legs, but there is some dependent edema, and his right arm arteriovenous (AV) fistula is patent and presently in use. Skin: Dry and warm. Neurologic: Oriented times three. He attempts to communicate by mouthing his words. White count 5.9, hemoglobin 10.5, platelets 129. Sodium 137, potassium 4.8. These were labs from October 28. INPATIENT MEDICATIONS: Reviewed by myself, and no changes are noted as compared to prior days. PROBLEMS: 1. End-stage renal disease, on hemodialysis on Wednesday, , Wednesday schedule. He had an extra treatment earlier this week because of some pulmonary vascular congestion and increased secretions from his trach when he is suctioned. Today is his usual dialysis day. We are removing 3.5 liters. We are trying to keep him as much as possible on the dry side, and he will continue to be assessed regularly for need of extra dialysis treatments. 2. Chronic tracheostomy status. He is pending tracheostomy tube exchange with Dr. Ortega, but I am not sure when that is going to be scheduled. His oxygen requirements remain minimal and unchanged. 3. Anemia of chronic renal failure. Labs are checked intermittently. Hemoglobin remains at goal. He continues on Aranesp with hemodialysis. 4. Renal osteodystrophy. His calcium, phosphorus, and most recent parathyroid hormone levels were all acceptable, and no change is being made to his current binder. 5. Morbid obesity complicates his care.
[2020-10-31] MEDS: clonazePAM 0.5 MG TAB PO PRN (21:35)
[2020-10-31] MEDS: SENOKOT S TAB PO SCH (21:35)
[2020-10-31] MEDS: PRAMIPEXOLE (MIRAPEX) 0.125 MG TAB PO SCH (21:35)
[2020-10-31] MEDS: oxyCODONE 5MG TAB PO PRN (21:36)
[2020-11-01] MEDS: ALBUTEROL SULFATE 2.5 MG/0.5 ML INH NEB SOLN NEB PRN ×5 (00:50→23:00)
[2020-11-01] MEDS: guaiFENesin SYRUP 200 MG/10 ML UDC PO SCH ×4 (05:26→23:00)
[2020-11-01 06:00] VITALS: BP 149/69
[2020-11-01] MEDS: ALBUTEROL SULFATE 2.5 MG/0.5 ML INH NEB SOLN NEB SCH ×4 (07:17→17:39)
[2020-11-01] MEDS: ACETYLCYSTEINE 20% 4 ML VIAL (200MG/ML) INH SCH (07:17)
[2020-11-01] MEDS: levETIRAcetam 250MG TABLET (KEPPRA) PO SCH (09:29)
[2020-11-01] MEDS: (RENVELA) SEVELAMER **CARBONate** 800 MG TAB PO SCH ×3 (09:29→17:01)
[2020-11-01] MEDS: PANTOPRAZOLE 40MG TAB (PROTONIX) PO SCH (09:29)
[2020-11-01] MEDS: SERTRALINE 100 MG TAB PO SCH (09:30)
[2020-11-01] MEDS: AMIODARONE 200 MG TAB (PACERONE) PO SCH (09:30)
[2020-11-01] MEDS: HEPARIN SOD (PORCINE) 5000UNITS/ML 1ML VIAL/SYRINGE SQ SCH ×2 (09:30→20:09)
[2020-11-01] MEDS: oxyCODONE 5MG TAB PO PRN (20:09)
[2020-11-01] MEDS: SENOKOT S TAB PO SCH (20:09)
[2020-11-01] MEDS: PRAMIPEXOLE (MIRAPEX) 0.125 MG TAB PO SCH (20:10)
[2020-11-01] MEDS: clonazePAM 0.5 MG TAB PO PRN (20:10)
[2020-11-02] MEDS: ALBUTEROL SULFATE 2.5 MG/0.5 ML INH NEB SOLN NEB PRN ×5 (02:36→23:35)
[2020-11-02 06:00] VITALS: BP 132/69
[2020-11-02] MEDS: HEPARIN SOD (PORCINE) 5000UNITS/ML 1ML VIAL/SYRINGE SQ SCH ×2 (06:12→20:58)
[2020-11-02] MEDS: guaiFENesin SYRUP 200 MG/10 ML UDC PO SCH ×4 (06:12→23:36)
[2020-11-02] MEDS: AMIODARONE 200 MG TAB (PACERONE) PO SCH (06:13)
[2020-11-02] MEDS: SERTRALINE 100 MG TAB PO SCH (06:13)
[2020-11-02] MEDS: levETIRAcetam 250MG TABLET (KEPPRA) PO SCH (06:13)
[2020-11-02] MEDS: PANTOPRAZOLE 40MG TAB (PROTONIX) PO SCH (06:13)
[2020-11-02] MEDS ORDERED: LIDOCAINE 1% SDV 5ML VIAL SC PRN (08:00)
[2020-11-02] MEDS: ACETYLCYSTEINE 20% 4 ML VIAL (200MG/ML) INH SCH ×2 (08:38→18:11)
[2020-11-02] MEDS: ALBUTEROL SULFATE 2.5 MG/0.5 ML INH NEB SOLN NEB SCH ×4 (08:38→18:11)
[2020-11-02] MEDS: (RENVELA) SEVELAMER **CARBONate** 800 MG TAB PO SCH ×3 (10:14→17:57)
[2020-11-02] MEDS: ONDANSETRON 4 MG TAB PO PRN (14:41)
[2020-11-02] MEDS: oxyCODONE 5MG TAB PO PRN ×2 (14:42→23:35)
[2020-11-02] MEDS: clonazePAM 0.5 MG TAB PO PRN (16:42)
[2020-11-02] MEDS: PRAMIPEXOLE (MIRAPEX) 0.125 MG TAB PO SCH (20:58)
[2020-11-02] MEDS: SENOKOT S TAB PO SCH (20:58)
--- NOTE | 2020-11-02 22:21 | IPN ---
NEPHROLOGY PROGRESS NOTE DATE: 11/02/2020 SUBJECTIVE: The patient was seen and examined at the bedside today morning during hemodialysis procedure. He was tolerating the hemodialysis procedure, but he was complaining of shortness of breath and his nurse was called do the suctioning of his tracheostomy. His blood pressures are soft and his ultrafiltration goal was decreased today. OBJECTIVE: VITAL SIGNS: Temperature is 98.6 degrees Fahrenheit, blood pressure 132/69, pulse is 69, respiratory rate of 17, saturating 97% on trach collar with 5 liters. INTAKE AND OUTPUT: Urine output recorded as zero. Weight on the bed scale is not available. PHYSICAL EXAMINATION: GENERAL APPEARANCE: The patient is awake, alert, oriented x3, laying in bed, morbidly obese. HEAD AND NECK: Extraocular muscles intact. Pupils are equally round and reactive to light. Neck is supple. He has a tracheostomy with a trach collar, currently getting suctioning done. CARDIOVASCULAR: S1, S2, regular rate. EXTREMITIES: No edema of the bilateral lower extremities. RESPIRATORY: Chest is clear to auscultation bilaterally. Bilaterally currently no rales or rhonchi. ABDOMEN: Soft, obese. I could not appreciate any organomegaly. MUSCULOSKELETAL: Decreased range of movement of the bilateral lower extremities because of chronically being bedridden. No edema of the bilateral lower extremities. CANDY SPREADER: No focal deficits. Power is 5/5 in all extremities. LAB REVIEW: CBC and BMP are from October 28. There are no new labs available. CURRENT INPATIENT MEDICATIONS: The patient's medications were all reviewed by myself. There is no significant change in the medications today. ASSESSMENT AND PLAN: 1. End-stage renal disease - patient is being dialyzed according to his regular schedule. Because of soft blood pressures, his ultrafiltration goal was decreased to 2 liters. 2. Atrial fibrillation - heart rate is controlled with Amiodarone. 3. Anemia and end-stage renal disease - hemoglobin is controlled with current dose of Aranesp 200 mcg with dialysis once a week. 4. Hypotension - The patient currently is not on any antihypertensives. If needed, he will be restarted on Midodrine. 5. Chronic kidney disease, mineral bone disease - continue current dose of Renvela. MTDD
[2020-11-03] MEDS: guaiFENesin SYRUP 200 MG/10 ML UDC PO SCH ×4 (05:56→23:21)
[2020-11-03 06:00] VITALS: BP 118/50
[2020-11-03] MEDS: ALBUTEROL SULFATE 2.5 MG/0.5 ML INH NEB SOLN NEB SCH ×4 (07:05→19:30)
[2020-11-03] MEDS: ACETYLCYSTEINE 20% 4 ML VIAL (200MG/ML) INH SCH ×2 (07:05→19:30)
[2020-11-03] MEDS: (RENVELA) SEVELAMER **CARBONate** 800 MG TAB PO SCH ×3 (12:43→18:24)
[2020-11-03] MEDS: AMIODARONE 200 MG TAB (PACERONE) PO SCH (13:02)
[2020-11-03] MEDS: SERTRALINE 100 MG TAB PO SCH (13:02)
[2020-11-03] MEDS: PANTOPRAZOLE 40MG TAB (PROTONIX) PO SCH (13:02)
[2020-11-03] MEDS: levETIRAcetam 250MG TABLET (KEPPRA) PO SCH (13:02)
[2020-11-03] MEDS: ONDANSETRON 4 MG TAB PO PRN (13:02)
[2020-11-03] MEDS: HEPARIN SOD (PORCINE) 5000UNITS/ML 1ML VIAL/SYRINGE SQ SCH ×2 (13:03→23:21)
[2020-11-03] MEDS: oxyCODONE 5MG TAB PO PRN ×2 (13:04→23:22)
[2020-11-03] MEDS: ALBUTEROL SULFATE 2.5 MG/0.5 ML INH NEB SOLN NEB PRN (23:16)
[2020-11-03] MEDS: SENOKOT S TAB PO SCH (23:20)
[2020-11-03] MEDS: PRAMIPEXOLE (MIRAPEX) 0.125 MG TAB PO SCH (23:21)
[2020-11-03] MEDS: clonazePAM 0.5 MG TAB PO PRN (23:22)
[2020-11-04] MEDS: ALBUTEROL SULFATE 2.5 MG/0.5 ML INH NEB SOLN NEB PRN ×3 (03:03→22:41)
[2020-11-04 06:00] VITALS: BP 140/69
[2020-11-04] MEDS: guaiFENesin SYRUP 200 MG/10 ML UDC PO SCH ×3 (06:17→18:19)
[2020-11-04] MEDS: ALBUTEROL SULFATE 2.5 MG/0.5 ML INH NEB SOLN NEB SCH ×4 (07:19→19:32)
[2020-11-04] MEDS: ACETYLCYSTEINE 20% 4 ML VIAL (200MG/ML) INH SCH ×2 (07:19→19:32)
[2020-11-04 09:04] LABS: HEMATOCRIT 38.6 % (42.0-52.0); HEMOGLOBIN 10.8 g/dl (13.5-17.5); MEAN CORPUSCULAR HEMOGLOBIN 29.6 pg (27.0-33.0); MEAN CORPUSCULAR VOLUME 105.8 fl (80.0-96.0); PLATELET COUNT, AUTOMATED 158 10^3/uL (150-450); RED BLOOD COUNT 3.65 10^6/uL (4.30-6.10)
[2020-11-04 09:34] LABS: CALCIUM LEVEL 9.1 MG/DL (8.5-10.1); CREATININE FOR GFR 5.39 MG/DL (0.70-1.30); GLOMERULAR FILTRATION RATE 12.2 (>60); PHOSPHORUS LEVEL 6.7 MG/DL (2.5-4.9); POTASSIUM SERUM 4.4 MEQ/L (3.5-5.1)
[2020-11-04] MEDS: (RENVELA) SEVELAMER **CARBONate** 800 MG TAB PO SCH ×3 (10:37→18:19)
[2020-11-04] MEDS: oxyCODONE 5MG TAB PO PRN ×2 (10:38→20:29)
[2020-11-04] MEDS: SERTRALINE 100 MG TAB PO SCH (10:39)
[2020-11-04] MEDS: levETIRAcetam 250MG TABLET (KEPPRA) PO SCH (10:39)
[2020-11-04] MEDS: HEPARIN SOD (PORCINE) 5000UNITS/ML 1ML VIAL/SYRINGE SQ SCH ×2 (10:39→20:28)
[2020-11-04] MEDS: PANTOPRAZOLE 40MG TAB (PROTONIX) PO SCH (10:39)
[2020-11-04] MEDS: AMIODARONE 200 MG TAB (PACERONE) PO SCH (10:39)
[2020-11-04 12:46] LABS: PTH INTACT 370.8 PG/ML (18.5-88.0)
[2020-11-04] MEDS: clonazePAM 0.5 MG TAB PO PRN (20:28)
[2020-11-04] MEDS: SENOKOT S TAB PO SCH (20:28)
[2020-11-04] MEDS: PRAMIPEXOLE (MIRAPEX) 0.125 MG TAB PO SCH (20:28)
[2020-11-05] MEDS: ALBUTEROL SULFATE 2.5 MG/0.5 ML INH NEB SOLN NEB PRN ×2 (01:08→23:24)
[2020-11-05] MEDS: guaiFENesin SYRUP 200 MG/10 ML UDC PO SCH ×4 (01:08→18:00)
[2020-11-05 06:00] VITALS: BP 136/68
[2020-11-05] MEDS: HEPARIN SOD (PORCINE) 5000UNITS/ML 1ML VIAL/SYRINGE SQ SCH ×2 (06:32→21:46)
[2020-11-05] MEDS: SERTRALINE 100 MG TAB PO SCH (06:32)
[2020-11-05] MEDS: PANTOPRAZOLE 40MG TAB (PROTONIX) PO SCH (06:32)
[2020-11-05] MEDS: levETIRAcetam 250MG TABLET (KEPPRA) PO SCH (06:32)
[2020-11-05] MEDS: AMIODARONE 200 MG TAB (PACERONE) PO SCH (06:33)
[2020-11-05] MEDS: (RENVELA) SEVELAMER **CARBONate** 800 MG TAB PO SCH ×3 (07:47→18:00)
[2020-11-05] MEDS: ALBUTEROL SULFATE 2.5 MG/0.5 ML INH NEB SOLN NEB SCH ×4 (07:47→19:58)
[2020-11-05] MEDS: ACETYLCYSTEINE 20% 4 ML VIAL (200MG/ML) INH SCH ×2 (08:00→19:58)
[2020-11-05] MEDS ORDERED: LIDOCAINE 1% SDV 5ML VIAL SC PRN (08:00)
[2020-11-05] MEDS: MIDODRINE 5 MG TAB PO SCH (09:00)
[2020-11-05] MEDS: SENOKOT S TAB PO SCH (21:46)
[2020-11-05] MEDS: PRAMIPEXOLE (MIRAPEX) 0.125 MG TAB PO SCH (21:47)
[2020-11-05] MEDS: oxyCODONE 5MG TAB PO PRN (21:48)
--- NOTE | 2020-11-05 21:55 | IPN ---
NEPHROLOGY PROGRESS NOTE DATE: 11/05/2020 SUBJECTIVE: Patient was seen and examined at the bedside today morning during hemodialysis procedure. He is tolerating the hemodialysis procedure well. He denies any active complaints at this time. OBJECTIVE: VITAL SIGNS: Temperature 98.2 degrees Fahrenheit, blood pressure 136/68, pulse 68, respiratory rate 20, saturating 98% on trach collar with 5 liters O2. INTAKE AND OUTPUT: There is no urine output recorded. Weight in the bed scale is not available. PHYSICAL EXAMINATION: GENERAL: Patient is awake, alert, oriented x3, laying in bed, morbidly obese. HEAD/NECK EXAM: Extraocular muscles intact. Pupils equally round and reactive to light. Mucous membranes are moist. Neck is supple. He has a tracheostomy. CARDIOVASCULAR: S1, S2, regular rate. No edema of the bilateral lower extremities. RESPIRATORY: Chest is clear to auscultation bilaterally. He has a tracheostomy and a trach collar. ABDOMEN: Soft, obese, positive bowel sounds. I could not appreciate any organomegaly. MUSCULOSKELETAL: Patient is chronically better and has weak lower extremities. OXIDE FURNACE TENDER: Patient otherwise is awake, able to follow commands and able to communicate without being able to talk because of tracheostomy. LABORATORY REVIEW: CBC showed WBC 7, hemoglobin 10.8 and that was yesterday. BMP done yesterday showed potassium 4.4 and creatinine 5.3. PTH level 370. CURRENT INPATIENT MEDICATIONS: Patient's medications were all reviewed by myself. There is no significant change in the medications today as compared with yesterday. ASSESSMENT AND PLAN: 1. End-stage renal disease: Patient gets dialysis every Wednesday, , Wednesday. Ultrafiltration goal will be around 2 to 3 kg as tolerated by his blood pressure. 2. Anemia and end-stage renal disease: Hemoglobin level is stable, continue current dose of Aranesp 200 mcg with dialysis. 3. Hypotension during dialysis: Patient has been started on Midodrine with dialysis. Next time he could get the dose before coming for dialysis. 4. Chronic kidney disease and mineral bone disease: Continue current dose of Renvela with meals. 5. Secondary hyperparathyroidism: PTH level is within the acceptable range. No need of Calcitriol at this time. 6. Atrial fibrillation: Heart rate is controlled with Amiodarone.
[2020-11-06] MEDS: guaiFENesin SYRUP 200 MG/10 ML UDC PO SCH ×5 (00:13→23:54)
[2020-11-06] MEDS: ALBUTEROL SULFATE 2.5 MG/0.5 ML INH NEB SOLN NEB PRN ×2 (03:58→23:55)
[2020-11-06 06:00] VITALS: BP 125/51
[2020-11-06] MEDS: ACETYLCYSTEINE 20% 4 ML VIAL (200MG/ML) INH SCH ×2 (07:18→20:53)
[2020-11-06] MEDS: ALBUTEROL SULFATE 2.5 MG/0.5 ML INH NEB SOLN NEB SCH ×4 (07:18→20:53)
[2020-11-06] MEDS: AMIODARONE 200 MG TAB (PACERONE) PO SCH (08:47)
[2020-11-06] MEDS: levETIRAcetam 250MG TABLET (KEPPRA) PO SCH (08:47)
[2020-11-06] MEDS: HEPARIN SOD (PORCINE) 5000UNITS/ML 1ML VIAL/SYRINGE SQ SCH ×2 (08:47→21:35)
[2020-11-06] MEDS: SERTRALINE 100 MG TAB PO SCH (08:47)
[2020-11-06] MEDS: (RENVELA) SEVELAMER **CARBONate** 800 MG TAB PO SCH ×3 (08:47→18:00)
[2020-11-06] MEDS: clonazePAM 0.5 MG TAB PO PRN ×2 (08:48→21:34)
[2020-11-06] MEDS: oxyCODONE 5MG TAB PO PRN ×2 (08:48→21:34)
[2020-11-06] MEDS: PANTOPRAZOLE 40MG TAB (PROTONIX) PO SCH (08:48)
[2020-11-06 08:54] VITALS: BP 153/64
[2020-11-06] MEDS: SENOKOT S TAB PO SCH (21:33)
[2020-11-06] MEDS: PRAMIPEXOLE (MIRAPEX) 0.125 MG TAB PO SCH (21:33)
[2020-11-07] MEDS: ALBUTEROL SULFATE 2.5 MG/0.5 ML INH NEB SOLN NEB PRN ×4 (02:00→17:25)
[2020-11-07 06:00] VITALS: BP 133/71
[2020-11-07] MEDS: SERTRALINE 100 MG TAB PO SCH (06:04)
[2020-11-07] MEDS: AMIODARONE 200 MG TAB (PACERONE) PO SCH (06:04)
[2020-11-07] MEDS: levETIRAcetam 250MG TABLET (KEPPRA) PO SCH (06:05)
[2020-11-07] MEDS: guaiFENesin SYRUP 200 MG/10 ML UDC PO SCH ×4 (06:05→23:20)
[2020-11-07] MEDS: HEPARIN SOD (PORCINE) 5000UNITS/ML 1ML VIAL/SYRINGE SQ SCH ×2 (06:05→20:57)
[2020-11-07] MEDS: PANTOPRAZOLE 40MG TAB (PROTONIX) PO SCH (06:09)
[2020-11-07] MEDS: (RENVELA) SEVELAMER **CARBONate** 800 MG TAB PO SCH ×3 (08:00→18:00)
[2020-11-07] MEDS ORDERED: LIDOCAINE 1% SDV 5ML VIAL SC PRN (08:00)
[2020-11-07] MEDS ORDERED: SODIUM CHLORIDE 0.9% 1000ML IV PRN (08:00)
[2020-11-07] MEDS: ACETYLCYSTEINE 20% 4 ML VIAL (200MG/ML) INH SCH ×2 (08:00→20:41)
[2020-11-07] MEDS: MIDODRINE 5 MG TAB PO SCH (08:07)
[2020-11-07] MEDS: ALBUTEROL SULFATE 2.5 MG/0.5 ML INH NEB SOLN NEB SCH ×5 (09:02→23:14)
[2020-11-07] MEDS: DARBEPOETIN 100 MCG/0.5 ML *DIALYSIS* SYRINGE (J0882) IV SCH ×2 (09:06→09:12)
--- NOTE | 2020-11-07 16:58 | IPN ---
PROGRESS NOTE DATE: 11/07/2020 The tracheostomy tubes, which were special order, at 120 mm in length have now finally come in. They are cuffed, as he requires ventilation at night and there seems to be an air leak from the non-cuffed tube that he has in. Reference is made to other progress note of 10/25/2020 for historical details. His latest white count on 11/04/2020 is 7.0 with a hemoglobin and hematocrit of 10.8 and 3.86, respectively, with a platelet count of 158. His latest chemistry is also on 11/04/2020 and showed normal electrolytes with a BUN and creatinine of 39 and 5.39. He is on renal dialysis and has just come back from dialysis at the time I am seeing him today. We will therefore take him to the operating room, where we will change his tracheostomy tube and exchange it for a cuffed Bivona. 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 That worked out well last time we did it, but he will need to go to the operating room with light anesthesia.
[2020-11-07] MEDS: SENOKOT S TAB PO SCH (20:55)
[2020-11-07] MEDS: PRAMIPEXOLE (MIRAPEX) 0.125 MG TAB PO SCH (20:55)
[2020-11-07] MEDS: oxyCODONE 5MG TAB PO PRN (20:56)
[2020-11-07] MEDS: clonazePAM 0.5 MG TAB PO PRN (20:57)
--- NOTE | 2020-11-07 23:24 | IPN ---
NEPHROLOGY PROGRESS NOTE DATE: 11/07/2020 SUBJECTIVE: The patient was seen and examined at the bedside today morning during hemodialysis procedure. He is tolerating the hemodialysis procedure. He denies any active complaints at this time. OBJECTIVE: VITAL SIGNS: Temperature is 98.4 degrees Fahrenheit, blood pressure 133/71, pulse is 70, respiratory rate of 20, saturating 91% on trach collar at 5 liters. INTAKE AND OUTPUT: There is no urine output recorded. Weight in the bed scale is not available. PHYSICAL EXAMINATION: GENERAL APPEARANCE: The patient is awake, alert, oriented x3, laying in bed getting hemodialysis done. HEAD AND NECK: Pupils are equally round and reactive to light. Mucous membranes are moist. Neck is supple. He has a trach collar. CARDIOVASCULAR: S1, S2, regular rate. EXTREMITIES: No edema of the bilateral lower extremities. RESPIRATORY: Chest is clear to auscultation bilaterally. Bilaterally currently no rales or rhonchi. ABDOMEN: Obese, positive bowel sounds. MUSCULOSKELETAL: Decreased range of motion of the bilateral lower extremities because of weakness. [facility]: Power is 5/5 in bilateral upper extremities. He follows commands and tries to communicate. LAB REVIEW: CBC showed a WBC of 7, hemoglobin 10.8 and that was November 04. And November 04 BMP was also reviewed. There are no recent labs available after that. CURRENT INPATIENT MEDICATIONS: The patient's medications were all reviewed by myself. There is no significant change in the medications today as compared with the last evaluation. ASSESSMENT AND PLAN: 1. End-stage renal disease he is being dialyzed today according to his regular schedule. Ultrafiltration goal is 3 liters as tolerated by his blood pressure. 2. Anemia and end-stage renal disease - hemoglobin is optimized with the current dose of Aranesp 200 mcg with dialysis. 3. Hypotension - The patient has been started back on Midodrine 5 mg p.o. before dialysis. Blood pressures are better now. 4. Chronic kidney disease, mineral bone disease - continue current dose of Renvela. Phosphorous level is high. He refuses to take the other binders. 5. Secondary hyperparathyroidism PTS level is within the acceptable range. No need for Calcitriol at this time.
[2020-11-08] VITALS (9 sets, daily range): BP systolic 120–171; BP diastolic 48–76
[2020-11-08] MEDS: ALBUTEROL SULFATE 2.5 MG/0.5 ML INH NEB SOLN NEB SCH ×3 (00:48→20:33)
[2020-11-08] MEDS: guaiFENesin SYRUP 200 MG/10 ML UDC PO SCH ×4 (05:06→23:11)
[2020-11-08] MEDS: ACETYLCYSTEINE 20% 4 ML VIAL (200MG/ML) INH SCH ×2 (07:07→20:33)
[2020-11-08] MEDS: ALBUTEROL SULFATE 2.5 MG/0.5 ML INH NEB SOLN NEB PRN ×4 (07:07→17:09)
[2020-11-08] MEDS: (RENVELA) SEVELAMER **CARBONate** 800 MG TAB PO SCH ×3 (08:00→17:29)
[2020-11-08] MEDS: HEPARIN SOD (PORCINE) 5000UNITS/ML 1ML VIAL/SYRINGE SQ SCH ×2 (08:55→20:52)
[2020-11-08] MEDS: AMIODARONE 200 MG TAB (PACERONE) PO SCH (08:56)
[2020-11-08] MEDS: levETIRAcetam 250MG TABLET (KEPPRA) PO SCH (08:56)
[2020-11-08] MEDS: SERTRALINE 100 MG TAB PO SCH (08:56)
[2020-11-08] MEDS: PANTOPRAZOLE 40MG TAB (PROTONIX) PO SCH (08:56)
[2020-11-08] MEDS ORDERED: propofoL 200 MG/20 ML VIAL As Ordered ONE (10:26)
[2020-11-08] MEDS ORDERED: ONDANSETRON 4MG/2ML VIAL As Ordered ONE (10:26)
[2020-11-08] MEDS ORDERED: LIDOCAINE 2% 100MG/5ML SDV (FOR ANES.) As Ordered ONE (10:26)
[2020-11-08] MEDS ORDERED: MIDAZOLAM INJ 2MG/2ML VIAL (J2250 PER 1MG) As Ordered ONE (10:26)
[2020-11-08] MEDS ORDERED: fentaNYL 100 MCG/2 ML INJECTION (J3010) As Ordered ONE (10:26)
[2020-11-08] MEDS ORDERED: dexameTHASONE 4 MG/ML 1ML VIAL (J1100 PER 1MG) As Ordered ONE (10:26)
[2020-11-08] MEDS ORDERED: LIDOCAINE W/EPINEPHRINE 1% 20ML VIAL As Ordered ONE (10:45)
[2020-11-08] MEDS ORDERED: CETACAINE SPRAY 5GM As Ordered ONE (10:45)
--- NOTE | 2020-11-08 12:27 | RO ---
OPERATIVE NOTE DATE OF OPERATION: 11/08/2020 PREOPERATIVE DIAGNOSIS: 1. Tracheal stenosis. 2. Tracheal lesion. POSTOPERATIVE DIAGNOSIS: 1. Tracheal stenosis. 2. Tracheal lesion. PROCEDURE: Tracheostomy change and dilation with bronchoscopy. SURGEON: Dr. Ortega DESCRIPTION OF PROCEDURE: Under satisfactory general anesthesia but with the patient breathing, the tracheostomy tube was suctioned out. Bronchoscope placed within the old tracheostomy tube. There were copious amounts of secretions, and as I pulled the tracheostomy out, I could not completely visualized the proximal trachea. A wire was placed down toward the compa, and an 8 Bivona cuffed tracheostomy tube was placed after dilating the trachea. It was a very tight fit. The dilator was removed and the tracheostomy tube hooked back up to the anesthesia apparatus. The tracheostomy was secured with a Velcro strap. The patient tolerated the procedure well and left the operating room in satisfactory condition to the recovery room.
[2020-11-08] MEDS ORDERED: fentaNYL 100 MCG/2 ML INJECTION (J3010) IV PRN (13:00)
[2020-11-08] MEDS ORDERED: ONDANSETRON 4MG/2ML VIAL IV PRN (13:00)
[2020-11-08] MEDS ORDERED: LR 1,000 ML IV SCH (13:00)
--- NOTE | 2020-11-08 15:25 | IPNPDOC ---
Text Note Date of Service The patient was seen on 11/08/20. NOTE SUBJECTIVE: Patient went for tracheostomy change today. Now a Bivona 8 cuffed tube was placed in place of the uncuffed one. As per Dr Ortega it was a very tight fit and he could not see the proximal part of the trachea. Tracheal stenosis was dilated. OBJECTIVE: VITAL SIGNS: Please see below. Afebrile. No hypoxemia GENERAL: Awake and alert. HEENT: PERRLA, EOMI, New tracheostomy in place. CARDIOVASCULAR: Normal S1, S2. No M/R/G RESPIRATORY: diminished, otherwise breathing comfortably, tracheostomy status. ABDOMINAL: obese abdomen, soft, non tender, normal bowel sounds. EXTREMITIES: chronic zhen stasis dermatitis, heel float boots NEUROLOGICAL: AAO x 3, no focal neuro deficit Labs: reviewed ASSESSMENT and PLAN: 50 year old male with multiple comorbidities including ESRD on hemodialysis, Morbid obesity/ NISA/obesity hypoventilation with tracheostomy since 2003 now with tracheal stenosis , has copious secretions, pending placement to facility, has reccurent blockages of his tracheostomy tube due to copious secretions causing recurrent acute hypercarbic resp failure on his chronic resp failure. He was on a Non cuffed tracheostomy tube with it we could not use his pressure support which he needs at night. today 11/08/20 His tracheostomy tube was changed to a cuffed one. His tracheostomy will probably need to be changed every 4 to 6 weeks to prevet it from getting blocked by secretions. Chronic respiratory failure with hypoxia and hypercarbia secondary to restrictive lung disease from his obesity, obesity hypoventilation. Chronically has tracheostomy will start him on pressure support ventilation at night as per previous pulmonology orders. Morbid obesity/ NISA continue Pressure support ventilation during sleep Tracheal stenosis s/p dilatation on 11/08/20 Difficult to visualize the first part of trachea due to the stenosis so tracheostomy tube cannot be changed at bedside. Episodes of Acute on Chronic respiratory failure with hypoxia and hypercarbia with acute metabolic encephalopathy due to hypercarbia during his prolonged hospitalization. Due to blockage of tracheostomy with large secretions Trach replacement 11/08/20 He was taken of alprazolam and placed on prn clonazepam. His seroquel was increased His nebs were changed form duonebs to albuterol only. Mucomyst nebs Severe spinal stenosis chronic pain on oxycodone prn ESRD on hemodialysis GERD PPI Depression/ Anxiety on sertraline, clonazepam. Paroxysmal Atrial fibrillation on amiodarone Seizure disorder on keppra Hypotension. C/w midodrine on dialysis days. Anemia. Stable, monitor and transfuse if indicated. hemoglobin level is optimal Was receiving Aranesp 100 mcg once a week with dialysis until recently Chronically bedridden. Awaiting placement to [facility] Mineral bone disease Renvela and Velphoro dose Restless legs pramipexole. Decubiti right medial buttocks, macerated he refuses to lay on his left and always leans to his right. Had speciality mattress but patient refused to use it. frequent change in posture DVT px Teds, scds.Heparin VS,Fishbone, I+O VS, Fishbone, I+O Vital Signs Date Time Temp Pulse Resp B/P (MAP) Pulse Ox O2 Delivery O2 Flow Rate FiO2 11/08/20 14:50 5.0 28 11/08/20 14:15 96.9 73 20 166/74 (104) 95 Trach Collar I&O- Last 24 Hours up to 6 AM 11/08/20 06:00 Intake Total 1680 ml Output Total 3000 ml Balance -1320 ml NATALY CLEARY MD Nov 08, 2020 15:25
[2020-11-08] MEDS: clonazePAM 0.5 MG TAB PO PRN (20:52)
[2020-11-08] MEDS: PRAMIPEXOLE (MIRAPEX) 0.125 MG TAB PO SCH (20:52)
[2020-11-08] MEDS: SENOKOT S TAB PO SCH (20:52)
[2020-11-08] MEDS: oxyCODONE 5MG TAB PO PRN (20:53)
[2020-11-09] MEDS: ALBUTEROL SULFATE 2.5 MG/0.5 ML INH NEB SOLN NEB PRN ×3 (00:35→17:20)
[2020-11-09 02:00] VITALS: BP 144/68
[2020-11-09] MEDS: PANTOPRAZOLE 40MG TAB (PROTONIX) PO SCH (05:55)
[2020-11-09] MEDS: guaiFENesin SYRUP 200 MG/10 ML UDC PO SCH ×4 (05:55→23:26)
[2020-11-09] MEDS: AMIODARONE 200 MG TAB (PACERONE) PO SCH (05:55)
[2020-11-09] MEDS: levETIRAcetam 250MG TABLET (KEPPRA) PO SCH (05:55)
[2020-11-09] MEDS: SERTRALINE 100 MG TAB PO SCH (05:55)
[2020-11-09 06:00] VITALS: BP 138/65
[2020-11-09] MEDS: ALBUTEROL SULFATE 2.5 MG/0.5 ML INH NEB SOLN NEB SCH ×4 (07:42→20:37)
[2020-11-09] MEDS: ACETYLCYSTEINE 20% 4 ML VIAL (200MG/ML) INH SCH ×2 (07:42→20:37)
[2020-11-09] MEDS: (RENVELA) SEVELAMER **CARBONate** 800 MG TAB PO SCH ×3 (08:00→17:45)
[2020-11-09] MEDS ORDERED: SODIUM CHLORIDE 0.9% 1000ML IV PRN (08:00)
[2020-11-09] MEDS ORDERED: LIDOCAINE 1% SDV 5ML VIAL SC PRN (08:00)
[2020-11-09] MEDS: MIDODRINE 5 MG TAB PO SCH (13:30)
[2020-11-09] MEDS: HEPARIN SOD (PORCINE) 5000UNITS/ML 1ML VIAL/SYRINGE SQ SCH ×2 (13:33→20:40)
[2020-11-09 14:00] VITALS: BP 119/48
[2020-11-09] MEDS: SENOKOT S TAB PO SCH (20:41)
[2020-11-09] MEDS: PRAMIPEXOLE (MIRAPEX) 0.125 MG TAB PO SCH (20:42)
[2020-11-09] MEDS: oxyCODONE 5MG TAB PO PRN (20:42)
[2020-11-09] MEDS: clonazePAM 0.5 MG TAB PO PRN (20:42)
[2020-11-10] MEDS: ALBUTEROL SULFATE 2.5 MG/0.5 ML INH NEB SOLN NEB PRN ×3 (00:03→23:35)
--- NOTE | 2020-11-10 00:05 | IPN ---
NEPHROLOGY PROGRESS NOTE DATE: 11/09/2020 SUBJECTIVE: The patient was seen and examined at the bedside today morning during hemodialysis procedure. He is tolerating the hemodialysis procedure well. He denies any active complaints. Today he wants 3 and a half liters of fluid removed because he reports that his oral intake is improving. OBJECTIVE: VITAL SIGNS: Temperature is 97.5 degrees Fahrenheit, blood pressure is 138/65, pulse is 67, respiratory rate of 20, saturating 97% on a trach collar at 5 liters. INTAKE AND OUTPUT: Urine output is not recorded. Weight in the bed scale is not available. PHYSICAL EXAMINATION: GENERAL APPEARANCE: The patient is awake, alert, oriented x3, laying in bed. HEAD AND NECK: Extraocular muscles intact. Pupils are equally round and reactive to light. Mucous membranes are moist. Neck is supple. He has a trach collar. CARDIOVASCULAR: S1, S2, regular rate. EXTREMITIES: 1+ edema of the bilateral thighs. RESPIRATORY: Chest is clear to auscultation bilaterally. Bilaterally currently no rales or rhonchi. ABDOMEN: Soft, obese, positive bowel sounds, nontender. MUSCULOSKELETAL: Decreased range of motion of the bilateral lower extremities. He is wearing waffle boots on the bilateral lower extremities. FRENCH INSTRUCTOR: No focal deficits in bilateral lower extremities. He is awake and able to follow commands and move the extremities. LAB REVIEW: CBC is from November 04 and BMP is from November 04 as well. There are no new labs available. CURRENT INPATIENT MEDICATIONS: The patient's medications were all reviewed by myself. There is no significant change in the medications today as compared with yesterday. ASSESSMENT AND PLAN: 1. End-stage renal disease - The patient is being dialyzed according to his regular schedule. Ultrafiltration goal is around 3 to 3.5 kg as tolerated by his blood pressure. 2. Hypotension - The patient has been started on Midodrine before dialysis. He is tolerating the dialysis better with less drop in blood pressures now. 3. Atrial fibrillation he is currently on Amiodarone, and he is currently not anticoagulated. 4. Anemia and end-stage renal disease - continue current dose of Aranesp. Hemoglobin level is stable.
[2020-11-10] MEDS: guaiFENesin SYRUP 200 MG/10 ML UDC PO SCH ×4 (05:28→23:35)
[2020-11-10 06:00] VITALS: BP 131/49
[2020-11-10] MEDS: ALBUTEROL SULFATE 2.5 MG/0.5 ML INH NEB SOLN NEB SCH ×4 (08:44→20:47)
[2020-11-10] MEDS: AMIODARONE 200 MG TAB (PACERONE) PO SCH (08:45)
[2020-11-10] MEDS: levETIRAcetam 250MG TABLET (KEPPRA) PO SCH (08:45)
[2020-11-10] MEDS: (RENVELA) SEVELAMER **CARBONate** 800 MG TAB PO SCH ×3 (08:45→17:45)
[2020-11-10] MEDS: SERTRALINE 100 MG TAB PO SCH (08:45)
[2020-11-10] MEDS: HEPARIN SOD (PORCINE) 5000UNITS/ML 1ML VIAL/SYRINGE SQ SCH ×2 (08:45→20:18)
[2020-11-10] MEDS: PANTOPRAZOLE 40MG TAB (PROTONIX) PO SCH (08:45)
[2020-11-10] MEDS: ACETYLCYSTEINE 20% 4 ML VIAL (200MG/ML) INH SCH ×2 (11:30→20:48)
[2020-11-10] MEDS: PRAMIPEXOLE (MIRAPEX) 0.125 MG TAB PO SCH (20:18)
[2020-11-10] MEDS: SENOKOT S TAB PO SCH (20:18)
[2020-11-10] MEDS: oxyCODONE 5MG TAB PO PRN (20:19)
[2020-11-10] MEDS: clonazePAM 0.5 MG TAB PO PRN (20:19)
[2020-11-11 01:29] VITALS: O2SAT 100
[2020-11-11] MEDS: ALBUTEROL SULFATE 2.5 MG/0.5 ML INH NEB SOLN NEB PRN ×5 (01:29→23:55)
[2020-11-11] MEDS: guaiFENesin SYRUP 200 MG/10 ML UDC PO SCH ×4 (05:00→23:56)
[2020-11-11 06:00] VITALS: BP 156/66
[2020-11-11] MEDS: ACETYLCYSTEINE 20% 4 ML VIAL (200MG/ML) INH SCH ×2 (06:19→21:19)
[2020-11-11] MEDS: ALBUTEROL SULFATE 2.5 MG/0.5 ML INH NEB SOLN NEB SCH ×4 (06:19→21:18)
[2020-11-11] MEDS: SERTRALINE 100 MG TAB PO SCH (07:55)
[2020-11-11] MEDS: PANTOPRAZOLE 40MG TAB (PROTONIX) PO SCH (07:55)
[2020-11-11] MEDS: (RENVELA) SEVELAMER **CARBONate** 800 MG TAB PO SCH ×3 (07:55→16:54)
[2020-11-11] MEDS: AMIODARONE 200 MG TAB (PACERONE) PO SCH (07:56)
[2020-11-11] MEDS: HEPARIN SOD (PORCINE) 5000UNITS/ML 1ML VIAL/SYRINGE SQ SCH ×2 (07:56→20:15)
[2020-11-11] MEDS: levETIRAcetam 250MG TABLET (KEPPRA) PO SCH (07:56)
[2020-11-11] MEDS: MIDODRINE 5 MG TAB PO SCH (08:06)
[2020-11-11] MEDS ORDERED: SODIUM CHLORIDE 0.9% 1000ML IV PRN (08:30)
[2020-11-11] MEDS ORDERED: LIDOCAINE 1% SDV 5ML VIAL SC PRN (08:30)
[2020-11-11 08:51] LABS: HEMATOCRIT 33.9 % (42.0-52.0); HEMOGLOBIN 9.7 g/dl (13.5-17.5); MEAN CORPUSCULAR HEMOGLOBIN 29.6 pg (27.0-33.0); MEAN CORPUSCULAR HGB CONC 28.6 g/dl (32.0-36.5); MEAN CORPUSCULAR VOLUME 103.4 fl (80.0-96.0); PLATELET COUNT, AUTOMATED 155 10^3/uL (150-450); RED BLOOD COUNT 3.28 10^6/uL (4.30-6.10)
[2020-11-11 09:16] LABS: CALCIUM LEVEL 8.7 MG/DL (8.5-10.1); CREATININE FOR GFR 5.55 MG/DL (0.70-1.30); GLOMERULAR FILTRATION RATE 11.7 (>60); POTASSIUM SERUM 4.7 MEQ/L (3.5-5.1)
[2020-11-11 13:36] LABS: PERCENT SATURATION 20.6 % (19.7-50.0)
--- NOTE | 2020-11-11 14:23 | IPN ---
INPATIENT PROGRESS NOTE DATE: 11/11/20 SUBJECTIVE: Matthew is seen and examined this morning in the hemodialysis unit receiving his treatment. His dialysis treatment is uneventful and he offers no medical complaints, denies any shortness of breath. His tracheostomy was exchanged on Wednesday of last week. PHYSICAL EXAMINATION: Temperature 97.1, pulse 75, respiratory rate 20, blood pressure 156/66, saturating 98% on 5 liters via trach collar. Intake yesterday was 2.1 liters. Goal fluid removal today is 3.5 liters. General: Patient is seen in the hemodialysis unit receiving his treatment in no apparent distress. HEENT: Extraocular muscles are intact. Tongue is moist. Neck: There is a trach collar in place. Heart: Sounds are regular S1 and S2. There is 1+ edema of the dependent areas at the thigh and sacrum, but not of the legs. Lungs: Breath sounds are symmetric bilaterally, no crackle or rale. Abdomen: Soft, obese and nontender. Musculoskeletal: There is decreased range of motion of the bilateral lower extremities. He is wearing Waffle boots bilaterally. His fistula is patent and presently in use. Neurologic: He is at his baseline mentation. He is awake and follows commands and attempts to mouth his speech. LABORATORY DATA: Laboratory studies from today show white count 7, hemoglobin 9.7, platelets 155. Sodium 138, potassium 4.7, bicarbonate 26. Most recent phosphorus was 6.7 and PTH 70. INPATIENT MEDICATIONS: Reviewed by myself and no change noted from prior. PROBLEMS/PLAN: 1. End-stage renal disease on hemodialysis: Patient is being dialyzed today off of his usual schedule because of routine scheduling issues in the dialysis unit. His volume status and electrolytes are acceptable. He is tolerating his treatment well. His fistula is in good use. Three and 1/2 liters are going to be removed today as tolerated by blood pressure. 2. Hypotension: He continues on midodrine before dialysis and there is no recurrent hypotension of hemodialysis. He is tolerating fluid removal. 3. Anemia of end-stage renal disease: Hemoglobin is slightly below goal, but he continues on the usual Aranesp and we will get updated iron panel. 4. Renal osteodystrophy: Parathyroid hormone level is acceptable, but his phosphorus is elevated. Continue renvela and I am adding Velphoro.
[2020-11-11] MEDS: SUCROFERRIC OXYHYDROXIDE 500MG CHEW TAB (VELPHORO) PO SCH (16:57)
[2020-11-11] MEDS: SENOKOT S TAB PO SCH (20:15)
[2020-11-11] MEDS: oxyCODONE 5MG TAB PO PRN (20:16)
[2020-11-11] MEDS: PRAMIPEXOLE (MIRAPEX) 0.125 MG TAB PO SCH (20:16)
[2020-11-11] MEDS: clonazePAM 0.5 MG TAB PO PRN (20:16)
[2020-11-11 21:21] VITALS: O2SAT 100
[2020-11-12 02:30] VITALS: O2SAT 100
[2020-11-12] MEDS: ALBUTEROL SULFATE 2.5 MG/0.5 ML INH NEB SOLN NEB PRN ×4 (05:15→23:22)
[2020-11-12] MEDS: guaiFENesin SYRUP 200 MG/10 ML UDC PO SCH ×4 (05:19→23:21)
[2020-11-12 06:00] VITALS: BP 154/71
[2020-11-12] MEDS: ALBUTEROL SULFATE 2.5 MG/0.5 ML INH NEB SOLN NEB SCH ×4 (07:34→20:58)
[2020-11-12] MEDS: ACETYLCYSTEINE 20% 4 ML VIAL (200MG/ML) INH SCH ×2 (07:34→20:58)
[2020-11-12] MEDS: SUCROFERRIC OXYHYDROXIDE 500MG CHEW TAB (VELPHORO) PO SCH ×3 (08:00→17:52)
[2020-11-12] MEDS: MIDODRINE 5 MG TAB PO SCH (09:00)
[2020-11-12] MEDS: levETIRAcetam 250MG TABLET (KEPPRA) PO SCH (09:50)
[2020-11-12] MEDS: SERTRALINE 100 MG TAB PO SCH (09:50)
[2020-11-12] MEDS: (RENVELA) SEVELAMER **CARBONate** 800 MG TAB PO SCH ×3 (09:50→17:52)
[2020-11-12] MEDS: PANTOPRAZOLE 40MG TAB (PROTONIX) PO SCH (09:51)
[2020-11-12] MEDS: HEPARIN SOD (PORCINE) 5000UNITS/ML 1ML VIAL/SYRINGE SQ SCH ×2 (09:51→22:08)
[2020-11-12] MEDS: AMIODARONE 200 MG TAB (PACERONE) PO SCH (09:51)
[2020-11-12] MEDS: PRAMIPEXOLE (MIRAPEX) 0.125 MG TAB PO SCH (22:06)
[2020-11-12] MEDS: SENOKOT S TAB PO SCH (22:06)
[2020-11-12] MEDS: clonazePAM 0.5 MG TAB PO PRN (22:09)
[2020-11-12] MEDS: oxyCODONE 5MG TAB PO PRN (22:10)
[2020-11-13] MEDS: ALBUTEROL SULFATE 2.5 MG/0.5 ML INH NEB SOLN NEB PRN ×5 (01:48→23:07)
[2020-11-13 02:28] VITALS: O2SAT 100
[2020-11-13] MEDS: guaiFENesin SYRUP 200 MG/10 ML UDC PO SCH ×4 (05:24→23:07)
[2020-11-13 06:00] VITALS: BP 117/47
[2020-11-13] MEDS: ALBUTEROL SULFATE 2.5 MG/0.5 ML INH NEB SOLN NEB SCH ×4 (07:50→18:30)
[2020-11-13] MEDS: ACETYLCYSTEINE 20% 4 ML VIAL (200MG/ML) INH SCH ×2 (07:51→20:00)
[2020-11-13] MEDS: HEPARIN SOD (PORCINE) 5000UNITS/ML 1ML VIAL/SYRINGE SQ SCH ×2 (09:11→20:19)
[2020-11-13] MEDS: AMIODARONE 200 MG TAB (PACERONE) PO SCH (09:11)
[2020-11-13] MEDS: PANTOPRAZOLE 40MG TAB (PROTONIX) PO SCH (09:11)
[2020-11-13] MEDS: levETIRAcetam 250MG TABLET (KEPPRA) PO SCH (09:11)
[2020-11-13] MEDS: SERTRALINE 100 MG TAB PO SCH (09:11)
[2020-11-13] MEDS: (RENVELA) SEVELAMER **CARBONate** 800 MG TAB PO SCH ×3 (09:11→18:36)
[2020-11-13] MEDS: SUCROFERRIC OXYHYDROXIDE 500MG CHEW TAB (VELPHORO) PO SCH ×3 (09:11→18:00)
[2020-11-13] MEDS: MIDODRINE 5 MG TAB PO SCH (09:28)
[2020-11-13] MEDS: DARBEPOETIN 100 MCG/0.5 ML *DIALYSIS* SYRINGE (J0882) IV SCH (11:56)
[2020-11-13] MEDS ORDERED: SODIUM CHLORIDE 0.9% 1000ML IV PRN (12:45)
[2020-11-13] MEDS ORDERED: LIDOCAINE 1% SDV 5ML VIAL SC PRN (12:45)
--- NOTE | 2020-11-13 12:50 | IPN ---
PROGRESS NOTE DATE: 11/13/2020 SUBJECTIVE: Matthew is seen and examined this morning in the Hemodialysis Unit receiving his maintenance treatment. He denies any complaints and his treatment has been uneventful. PHYSICAL EXAMINATION: VITAL SIGNS: Temperature 97.6, pulse is 70, respiratory rate is 19, blood pressure is 117/47, saturating 100% on trach collar. INTAKE AND OUTPUT: Intake yesterday was 1250. Dialysis today is removing 3500. Weight on the bed scale today is not recorded. GENERAL: The patient is seen awake, alert, receiving his treatment in no distress. Extraocular muscles are intact. Tongue is moist. Trach collar is in place. HEART: Heart sounds are regular, S1 and S2. LUNGS: Anterior auscultation only, clear and symmetric, no crackle or rale. ABDOMEN: Soft, obese and nontender. EXTREMITIES: 1+ edema in the dependent areas and a fistula in the right arm which is patent and in use. SKIN: Normal temperature and turgor. NEUROLOGIC: Oriented and at baseline mentation. Attempts to communicate by mouthing. LABORATORY DATA: White count 7.0, hemoglobin 9.7, platelets are 155,000. Sodium 138, potassium 4.7, bicarbonate 26, iron is 48, transferrin saturation is 20%. INPATIENT MEDICATIONS: Venofer is ordered with his dialysis treatment. His other medications are unchanged as compared to prior. PROBLEMS: 1. Endstage renal disease on hemodialysis. The patient is dialyzed today with 3.5 liters of fluid removed. He is tolerating his treatments without any issue. His volume status and electrolytes are acceptable. His fistula is in good use. Continue current dialysis prescription. 2. Anemia of chronic kidney disease. Hemoglobin is below goal. His iron stores show iron deficiency, Venofer is ordered with his dialysis treatments. He is also on iron based phosphorus binder and he continues on the usual Aranesp. 3. Renal osteodystrophy. Parathyroid hormone level is at target, the phosphorus level was elevated. Continue on Renvela and Velphoro was recently added in view of high phosphorus and iron deficiency. 4. Hypotension of hemodialysis, he continues on Midodrine pre-dialysis and he is tolerating fluid removal without any issues.
[2020-11-13] MEDS: IRON SUCROSE 100MG 5ML VIAL (J1756 PER 1MG) IV SCH (13:29)
[2020-11-13] MEDS: PRAMIPEXOLE (MIRAPEX) 0.125 MG TAB PO SCH (20:18)
[2020-11-13] MEDS: oxyCODONE 5MG TAB PO PRN (20:19)
[2020-11-13] MEDS: SENOKOT S TAB PO SCH (20:19)
[2020-11-13] MEDS: clonazePAM 0.5 MG TAB PO PRN (20:21)
[2020-11-14] MEDS: ONDANSETRON 4 MG TAB PO PRN (00:43)
[2020-11-14] MEDS: ALBUTEROL SULFATE 2.5 MG/0.5 ML INH NEB SOLN NEB PRN ×4 (01:54→13:23)
[2020-11-14] MEDS: guaiFENesin SYRUP 200 MG/10 ML UDC PO SCH ×3 (05:47→17:58)
[2020-11-14 06:00] VITALS: BP 132/68
[2020-11-14] MEDS: ACETYLCYSTEINE 20% 4 ML VIAL (200MG/ML) INH SCH ×2 (07:21→20:00)
[2020-11-14] MEDS: ALBUTEROL SULFATE 2.5 MG/0.5 ML INH NEB SOLN NEB SCH ×4 (07:21→20:00)
[2020-11-14] MEDS: (RENVELA) SEVELAMER **CARBONate** 800 MG TAB PO SCH ×3 (09:44→17:58)
[2020-11-14] MEDS: SUCROFERRIC OXYHYDROXIDE 500MG CHEW TAB (VELPHORO) PO SCH ×3 (09:44→17:20)
[2020-11-14] MEDS: AMIODARONE 200 MG TAB (PACERONE) PO SCH (09:46)
[2020-11-14] MEDS: SERTRALINE 100 MG TAB PO SCH (09:46)
[2020-11-14] MEDS: PANTOPRAZOLE 40MG TAB (PROTONIX) PO SCH (09:46)
[2020-11-14] MEDS: levETIRAcetam 250MG TABLET (KEPPRA) PO SCH (09:46)
[2020-11-14] MEDS: HEPARIN SOD (PORCINE) 5000UNITS/ML 1ML VIAL/SYRINGE SQ SCH ×2 (09:46→22:14)
[2020-11-14] MEDS: oxyCODONE 5MG TAB PO PRN ×2 (10:31→22:16)
[2020-11-14] MEDS: clonazePAM 0.5 MG TAB PO PRN (22:17)
[2020-11-14] MEDS: SENOKOT S TAB PO SCH (22:17)
[2020-11-14] MEDS: PRAMIPEXOLE (MIRAPEX) 0.125 MG TAB PO SCH (22:17)
[2020-11-15] MEDS: guaiFENesin SYRUP 200 MG/10 ML UDC PO SCH ×4 (00:25→18:00)
[2020-11-15] MEDS: ALBUTEROL SULFATE 2.5 MG/0.5 ML INH NEB SOLN NEB PRN ×5 (00:26→22:27)
[2020-11-15 06:00] VITALS: BP 131/72
[2020-11-15] MEDS: HEPARIN SOD (PORCINE) 5000UNITS/ML 1ML VIAL/SYRINGE SQ SCH ×2 (06:09→21:03)
[2020-11-15] MEDS: levETIRAcetam 250MG TABLET (KEPPRA) PO SCH (06:10)
[2020-11-15] MEDS: oxyCODONE 5MG TAB PO PRN ×2 (06:11→21:02)
[2020-11-15] MEDS: AMIODARONE 200 MG TAB (PACERONE) PO SCH (06:11)
[2020-11-15] MEDS: SERTRALINE 100 MG TAB PO SCH (06:11)
[2020-11-15] MEDS: PANTOPRAZOLE 40MG TAB (PROTONIX) PO SCH (06:11)
[2020-11-15] MEDS: ALBUTEROL SULFATE 2.5 MG/0.5 ML INH NEB SOLN NEB SCH ×4 (07:10→19:45)
[2020-11-15] MEDS: ACETYLCYSTEINE 20% 4 ML VIAL (200MG/ML) INH SCH ×2 (07:11→19:45)
[2020-11-15] MEDS: MIDODRINE 5 MG TAB PO SCH (07:51)
[2020-11-15] MEDS: SUCROFERRIC OXYHYDROXIDE 500MG CHEW TAB (VELPHORO) PO SCH ×2 (08:00→12:30)
[2020-11-15] MEDS: (RENVELA) SEVELAMER **CARBONate** 800 MG TAB PO SCH ×3 (08:00→18:00)
[2020-11-15] MEDS ORDERED: LIDOCAINE 1% SDV 5ML VIAL SC PRN (10:00)
[2020-11-15] MEDS ORDERED: SODIUM CHLORIDE 0.9% 1000ML IV PRN (10:00)
[2020-11-15] MEDS: IRON SUCROSE 100MG 5ML VIAL (J1756 PER 1MG) IV SCH (11:00)
[2020-11-15] MEDS: clonazePAM 0.5 MG TAB PO PRN (21:02)
[2020-11-15] MEDS: PRAMIPEXOLE (MIRAPEX) 0.125 MG TAB PO SCH (21:02)
[2020-11-15] MEDS: SENOKOT S TAB PO SCH (21:02)
--- NOTE | 2020-11-15 21:57 | IPN ---
PROGRESS NOTE DATE: 11/15/2020 SUBJECTIVE: Matthew was seen and examined this morning in the hemodialysis unit receiving his treatment. He denies any complaints. He has been refusing his Velphoro binder because he cannot chew it. PHYSICAL EXAMINATION: VITAL SIGNS: Temperature 97.7, pulse 74, respiratory rate 19, blood pressure 131/72, saturating 96% on trach collar. Intake yesterday was 1970. Dialysis today almost 3 liters. Weight in the bed scale today is not recorded. GENERAL: The patient is seen, awake, alert, oriented, receiving his treatment in no apparent distress. Extraocular muscles are intact. Tongue is moist. Neck is supple. There is a tracheostomy. Heart sounds are regular. S1, S2. Chest: Anterior auscultation only, clear and symmetric. No crackle or rale. Abdomen is soft, obese and nontender. There are bowel sounds. Extremities show 1+ edema in the dependent areas and a fistula in the right arm, which is patent and in use. His feet are in boots. Skin normal in temperature and turgor. Neurologic: Oriented and at baseline mentation. Attempts to communicate by mouthing. LABORATORY DATA: Today's labs show white count 7.0, hemoglobin 9.7, platelets 155. Sodium 138, potassium 4.7, phosphorus 6.5, transferrin saturation 20%. INPATIENT MEDICATIONS: His Velphoro is discontinued and his Renvela dose is increased to 4 gm by mouth with meals. His remainder of medications are unchanged from prior. PROBLEMS: 1. End-stage renal disease on hemodialysis on Wednesday, , Wednesday schedule. The patient is off of his chronic schedule because of scheduling issue in the dialysis unit and we dialyzed him this week on Wednesday, Wednesday, Wednesday schedule. He was dialyzed today with goal fluid removal of 3.5 liters. Blood pressures with hemodialysis have been stable. His fistula is in good use. Continue current dialysis prescription. Laboratory studies are intermittently took. 2. Anemia of chronic kidney disease. Goal hemoglobin is 10 to 11. Iron stores show inadequate iron. He is receiving Venofer with dialysis and he continues on the usual Aranesp. He could not chew the iron based phosphorus binder. 3. Renal osteodystrophy. Parathyroid hormone level is at target. Phosphorus level has been high. Velphoro was stopped as he cannot chew it. Renvela is increased to 4 gm with meals. 4. Hypotension on hemodialysis. Continue midodrine pre dialysis and he is tolerating fluid removal without issue.
[2020-11-16] MEDS: guaiFENesin SYRUP 200 MG/10 ML UDC PO SCH ×4 (00:46→18:00)
[2020-11-16] MEDS: ALBUTEROL SULFATE 2.5 MG/0.5 ML INH NEB SOLN NEB PRN ×3 (01:03→22:05)
[2020-11-16 06:00] VITALS: BP 127/52
[2020-11-16] MEDS: ALBUTEROL SULFATE 2.5 MG/0.5 ML INH NEB SOLN NEB SCH ×4 (07:50→18:40)
[2020-11-16] MEDS: ACETYLCYSTEINE 20% 4 ML VIAL (200MG/ML) INH SCH ×2 (07:51→18:40)
[2020-11-16] MEDS: (RENVELA) SEVELAMER **CARBONate** 800 MG TAB PO SCH ×3 (08:00→18:00)
[2020-11-16] MEDS: levETIRAcetam 250MG TABLET (KEPPRA) PO SCH (08:51)
[2020-11-16] MEDS: AMIODARONE 200 MG TAB (PACERONE) PO SCH (08:51)
[2020-11-16] MEDS: SERTRALINE 100 MG TAB PO SCH (08:51)
[2020-11-16] MEDS: MIDODRINE 5 MG TAB PO SCH (08:51)
[2020-11-16] MEDS: PANTOPRAZOLE 40MG TAB (PROTONIX) PO SCH (08:51)
[2020-11-16] MEDS: clonazePAM 0.5 MG TAB PO PRN ×2 (08:51→21:55)
[2020-11-16] MEDS: HEPARIN SOD (PORCINE) 5000UNITS/ML 1ML VIAL/SYRINGE SQ SCH ×2 (08:51→21:54)
[2020-11-16] MEDS: oxyCODONE 5MG TAB PO PRN ×2 (08:52→21:55)
[2020-11-16] MEDS: PRAMIPEXOLE (MIRAPEX) 0.125 MG TAB PO SCH (21:54)
[2020-11-16] MEDS: SENOKOT S TAB PO SCH (21:54)
[2020-11-17] MEDS: ALBUTEROL SULFATE 2.5 MG/0.5 ML INH NEB SOLN NEB PRN ×4 (00:22→23:09)
[2020-11-17] MEDS: guaiFENesin SYRUP 200 MG/10 ML UDC PO SCH ×5 (00:52→23:01)
[2020-11-17 06:00] VITALS: BP 133/70
[2020-11-17] MEDS: oxyCODONE 5MG TAB PO PRN ×2 (06:20→22:44)
[2020-11-17] MEDS: ACETYLCYSTEINE 20% 4 ML VIAL (200MG/ML) INH SCH ×2 (07:38→20:09)
[2020-11-17] MEDS: ALBUTEROL SULFATE 2.5 MG/0.5 ML INH NEB SOLN NEB SCH ×4 (07:38→20:09)
[2020-11-17] MEDS: PANTOPRAZOLE 40MG TAB (PROTONIX) PO SCH (09:10)
[2020-11-17] MEDS: HEPARIN SOD (PORCINE) 5000UNITS/ML 1ML VIAL/SYRINGE SQ SCH ×2 (09:10→22:43)
[2020-11-17] MEDS: AMIODARONE 200 MG TAB (PACERONE) PO SCH (09:11)
[2020-11-17] MEDS: SERTRALINE 100 MG TAB PO SCH (09:11)
[2020-11-17] MEDS: levETIRAcetam 250MG TABLET (KEPPRA) PO SCH (09:11)
[2020-11-17] MEDS: (RENVELA) SEVELAMER **CARBONate** 800 MG TAB PO SCH ×3 (09:11→17:05)
[2020-11-17 14:00] VITALS: BP 163/87
[2020-11-17] MEDS: SENOKOT S TAB PO SCH (22:44)
[2020-11-17] MEDS: PRAMIPEXOLE (MIRAPEX) 0.125 MG TAB PO SCH (22:44)
[2020-11-17] MEDS: clonazePAM 0.5 MG TAB PO PRN (22:45)
[2020-11-18] MEDS: ALBUTEROL SULFATE 2.5 MG/0.5 ML INH NEB SOLN NEB PRN ×4 (01:59→23:43)
[2020-11-18 06:00] VITALS: BP 117/52
[2020-11-18] MEDS: SERTRALINE 100 MG TAB PO SCH (06:43)
[2020-11-18] MEDS: HEPARIN SOD (PORCINE) 5000UNITS/ML 1ML VIAL/SYRINGE SQ SCH ×2 (06:43→20:35)
[2020-11-18] MEDS: guaiFENesin SYRUP 200 MG/10 ML UDC PO SCH ×4 (06:43→23:55)
[2020-11-18] MEDS: AMIODARONE 200 MG TAB (PACERONE) PO SCH (06:44)
[2020-11-18] MEDS: PANTOPRAZOLE 40MG TAB (PROTONIX) PO SCH (06:44)
[2020-11-18] MEDS: levETIRAcetam 250MG TABLET (KEPPRA) PO SCH (06:44)
[2020-11-18] MEDS: ACETYLCYSTEINE 20% 4 ML VIAL (200MG/ML) INH SCH ×2 (07:25→19:52)
[2020-11-18] MEDS: ALBUTEROL SULFATE 2.5 MG/0.5 ML INH NEB SOLN NEB SCH ×4 (07:25→19:52)
[2020-11-18] MEDS: (RENVELA) SEVELAMER **CARBONate** 800 MG TAB PO SCH ×3 (08:00→18:00)
[2020-11-18] MEDS: MIDODRINE 5 MG TAB PO SCH (08:24)
[2020-11-18 09:07] LABS: HEMATOCRIT 34.3 % (42.0-52.0); HEMOGLOBIN 9.8 g/dl (13.5-17.5); MEAN CORPUSCULAR HEMOGLOBIN 29.9 pg (27.0-33.0); MEAN CORPUSCULAR HGB CONC 28.6 g/dl (32.0-36.5); MEAN CORPUSCULAR VOLUME 104.6 fl (80.0-96.0); PLATELET COUNT, AUTOMATED 181 10^3/uL (150-450); RED BLOOD COUNT 3.28 10^6/uL (4.30-6.10)
[2020-11-18 09:39] LABS: ALBUMIN 2.5 GM/DL (3.2-5.2); CALCIUM LEVEL 9.1 MG/DL (8.5-10.1); CREATININE FOR GFR 6.3 MG/DL (0.70-1.30); GLOMERULAR FILTRATION RATE 10.2 (>60); PHOSPHORUS LEVEL 7.5 MG/DL (2.5-4.9); POTASSIUM SERUM 4.8 MEQ/L (3.5-5.1)
[2020-11-18] MEDS: IRON SUCROSE 100MG 5ML VIAL (J1756 PER 1MG) IV SCH (10:06)
--- NOTE | 2020-11-18 12:37 | IPN ---
NEPHROLOGY PROGRESS NOTE DATE: 11/18/20 SUBJECTIVE: Mr. Richard is seen this morning during hemodialysis. He is feeling well and remains on a trach collar. He denies any new changes. PHYSICAL EXAMINATION: Temperature 98 degrees Fahrenheit, heart rate 66 per minute and respiratory rate 18 per minute. Blood pressure 117/52 mmHg and oxygen saturation 96%. Head: Atraumatic. Neck: Supple and tracheostomy is in place. JVD difficult to be assessed. Heart: Sounds are regular. Lungs: Good bilateral air entry. Abdomen: Obese and nontender and bowel sounds are normal. Extremities: Without any cyanosis or clubbing. Right arm AV fistula is patent and being used for dialysis. Neurologically: He is at his baseline mentation with bilateral lower extremity plegia. LABORATORY DATA: Today's labs show WBC count 7, hemoglobin 9.8, hematocrit 34.3, platelets 181. Sodium 137, potassium 4.8, CO2 26, BUN 45, creatinine 6.30, calcium 9.1, phosphorus 7.5. Albumin level 2.5. PROBLEMS/PLAN: 1. End-stage renal disease: Patient is being dialyzed today and he is tolerating his dialysis treatment very well. 2. Respiratory failure: Patient has chronic respiratory failure due to obstructive sleep apnea, COPD and obesity associated hypoventilation. His volume status seems reasonably well compensated and we are trying to remove about 3.5 liters of fluid today. 3. Anemia: Stable and we will continue with his weekly dose of Aranesp. 4. Hyperphosphatemia: Intact PTH level was checked last week and was appropriate. His phosphorus level is high and patient needs to follow a low phosphorus diet. I have increased his renvela dose to 4000 mg with each meal which should be continued. 5. Hypotension: Patient has chronic hypotension and has been on midodrine 5 mg three times a day which will be continued. 6. Atrial fibrillation: He is currently in sinus rhythm with rate controlled. He remains on amiodarone. He is not a suitable candidate for anticoagulation.
[2020-11-18] MEDS: PRAMIPEXOLE (MIRAPEX) 0.125 MG TAB PO SCH (20:35)
[2020-11-18] MEDS: clonazePAM 0.5 MG TAB PO PRN (20:35)
[2020-11-18] MEDS: SENOKOT S TAB PO SCH (20:35)
[2020-11-18] MEDS: oxyCODONE 5MG TAB PO PRN (20:36)
[2020-11-19] MEDS: ALBUTEROL SULFATE 2.5 MG/0.5 ML INH NEB SOLN NEB PRN ×2 (03:44→06:03)
[2020-11-19] MEDS: guaiFENesin SYRUP 200 MG/10 ML UDC PO SCH ×4 (05:59→23:19)
[2020-11-19 06:00] VITALS: BP 150/75
[2020-11-19] MEDS: (RENVELA) SEVELAMER **CARBONate** 800 MG TAB PO SCH ×3 (08:00→18:00)
[2020-11-19] MEDS: ACETYLCYSTEINE 20% 4 ML VIAL (200MG/ML) INH SCH ×2 (08:32→20:20)
[2020-11-19] MEDS: ALBUTEROL SULFATE 2.5 MG/0.5 ML INH NEB SOLN NEB SCH ×5 (08:32→20:20)
[2020-11-19] MEDS: SERTRALINE 100 MG TAB PO SCH (11:11)
[2020-11-19] MEDS: levETIRAcetam 250MG TABLET (KEPPRA) PO SCH (11:11)
[2020-11-19] MEDS: AMIODARONE 200 MG TAB (PACERONE) PO SCH (11:11)
[2020-11-19] MEDS: PANTOPRAZOLE 40MG TAB (PROTONIX) PO SCH (11:11)
[2020-11-19] MEDS: HEPARIN SOD (PORCINE) 5000UNITS/ML 1ML VIAL/SYRINGE SQ SCH ×2 (11:12→20:54)
[2020-11-19] MEDS: clonazePAM 0.5 MG TAB PO PRN (20:53)
[2020-11-19] MEDS: PRAMIPEXOLE (MIRAPEX) 0.125 MG TAB PO SCH (20:53)
[2020-11-19] MEDS: SENOKOT S TAB PO SCH (20:53)
[2020-11-19] MEDS: oxyCODONE 5MG TAB PO PRN (20:54)
[2020-11-20] MEDS: ALBUTEROL SULFATE 2.5 MG/0.5 ML INH NEB SOLN NEB PRN ×4 (00:56→22:52)
[2020-11-20] MEDS: ALBUTEROL SULFATE 2.5 MG/0.5 ML INH NEB SOLN NEB SCH ×3 (04:16→19:57)
[2020-11-20] MEDS: PANTOPRAZOLE 40MG TAB (PROTONIX) PO SCH (05:48)
[2020-11-20] MEDS: levETIRAcetam 250MG TABLET (KEPPRA) PO SCH (05:48)
[2020-11-20] MEDS: AMIODARONE 200 MG TAB (PACERONE) PO SCH (05:48)
[2020-11-20] MEDS: guaiFENesin SYRUP 200 MG/10 ML UDC PO SCH ×4 (05:48→22:52)
[2020-11-20] MEDS: SERTRALINE 100 MG TAB PO SCH (05:48)
[2020-11-20 06:00] VITALS: BP 102/44
[2020-11-20] MEDS: (RENVELA) SEVELAMER **CARBONate** 800 MG TAB PO SCH ×3 (08:00→17:36)
[2020-11-20] MEDS: MIDODRINE 5 MG TAB PO SCH (08:11)
[2020-11-20] MEDS: HEPARIN SOD (PORCINE) 5000UNITS/ML 1ML VIAL/SYRINGE SQ SCH ×2 (08:11→21:25)
[2020-11-20] MEDS: DARBEPOETIN 200MCG/0.4ML *DIALYSIS* SYRINGE (J0882 PER 1MCG) IV SCH (09:10)
[2020-11-20] MEDS: ACETYLCYSTEINE 20% 4 ML VIAL (200MG/ML) INH SCH ×2 (09:20→19:57)
[2020-11-20] MEDS: IRON SUCROSE 100MG 5ML VIAL (J1756 PER 1MG) IV SCH (09:45)
--- NOTE | 2020-11-20 13:16 | IPN ---
PROGRESS NOTE DATE: 11/20/2020 Mr. Richard is seen this morning during hemodialysis. He is feeling well and denies any new complaints. He remains on trach collar. Patient denies any nausea, vomiting, fever or chills. PHYSICAL EXAMINATION: Temperature 97.3 degrees Fahrenheit, heart rate 68 per minute, respiratory rate 18 per minute, blood pressure 102/44 mmHg, oxygen saturation 97% on 5 liters oxygen via trach collar. HEAD: Atraumatic. NECK: Supple and jugular venous distention (JVD) difficult to assess. HEART SOUNDS: Regular. LUNGS: Diminished breath sounds. Tracheostomy is in place ABDOMEN: Obese and nontender. EXTREMITIES: Without any cyanosis or clubbing. Right arm arteriovenous (AV) fistula is patent. NEUROLOGIC: He is at his baseline mentation. Bilateral lower extremity plegia related to severe spinal stenosis is unchanged. LABORATORY DATA: Patient did not have any new laboratories done since November 18, 2020. PROBLEMS: 1. End-stage renal disease. Patient is being dialyzed today and he is tolerating dialysis well; 3.5 liters of fluid is being removed. 2. Respiratory failure related to obstructive sleep apnea, obesity-associated hypoventilation and chronic obstructive pulmonary disease (COPD). Volume status is being maintained with hemodialysis; 3.5 liters of fluid are being removed today. 3. Anemia. His anemia has been stable and he will continue with weekly dose of Aranesp. 4. Hypotension. Chronic hypotension has been treated with midodrine and has remained stable. 5. Hyperphosphatemia. This is related to dietary noncompliance. Patient is on 4000 mg of Renvela with each meal. No changes are being made today.
--- NOTE | 2020-11-20 16:43 | IPNPDOC ---
Text Note Date of Service The patient was seen on 11/20/20. NOTE S Patient was seen and examined this morning at bedside. Denies any new complaints feeling well endorses some crusting off his eyelids. No acute overnight events. O GENERAL: Morbidly obese male. Some crusting over both eyelids some mild erythema HEAD/NECK: PERRLA, EOMI CARDIOVASCULAR: S1, S2 RESPIRATORY: CTA ABDOMEN: Obese, positive bowel sounds, nontender. No organomegaly. MUSCULOSKELETAL: Decreased range of movement of lower extremities because he is chronically bedridden. 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 Awake. Able to communicate appropriately. Moves bilateral upper extremities. Lower extremities are weak because of bedridden status. A/P 50 year old male with multiple comorbidities including ESRD on hemodialysis, currently ALC status pending placement to [facility] # Serial conjunctivitis: Started on erythromycin ointment bilaterally start date 2020 for 7 days # Episodes of Acute on Chronic respiratory failure with hypoxia and hypercarbia: secondary to restrictive lung disease from his obesity, obesity hypoventilation. with acute metabolic encephalopathy due to hypercarbia during his prolonged hospitalization. 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 His seroquel was increased His nebs were changed form duonebs to albuterol only. Mucomyst nebs # Morbid obesity/obstructive sleep apnea: Continue pressure support ventilation during sleep # ESRD on hemodialysis: Patient is being dialyzed according to his regular TTS schedule # Hypotension: Continue midodrine on dialysis days. # Anemia: Stable, monitor and transfuse if indicated. # Chronically bedridden: Awaiting placement to [facility]. # Serious disorder: Keppra # Paroxysmal A. fib: Amiodarone # Depression/anxiety: Sertraline and clonazepam # GERD: PPI # Severe spinal stenosis: Oxycodone as needed A Yousef Hospitalist VS,Carlie, I+O VS, Alexandere, I+O Vital Signs Date Time Temp Pulse Resp B/P (MAP) Pulse Ox O2 Delivery O2 Flow Rate FiO2 11/20/20 13:27 19 11/20/20 08:00 5.0 28 11/20/20 06:00 97.3 68 102/44 (63) 97 Trach Collar I&O- Last 24 Hours up to 6 AM 11/20/20 06:00 Intake Total 1495 ml Output Total 0 ml Balance 1495 ml KAYLA RIZVI MD Nov 20, 2020 16:43
[2020-11-20] MEDS: ERYTHROMYCIN OPHTH OINT OU SCH ×2 (17:36→21:25)
[2020-11-20] MEDS: PRAMIPEXOLE (MIRAPEX) 0.125 MG TAB PO SCH (21:24)
[2020-11-20] MEDS: clonazePAM 0.5 MG TAB PO PRN (21:24)
[2020-11-20] MEDS: SENOKOT S TAB PO SCH (21:24)
[2020-11-20] MEDS: oxyCODONE 5MG TAB PO PRN (21:25)
[2020-11-21] MEDS: ALBUTEROL SULFATE 2.5 MG/0.5 ML INH NEB SOLN NEB PRN ×4 (01:05→22:06)
[2020-11-21 06:00] VITALS: BP 113/45
[2020-11-21] MEDS: guaiFENesin SYRUP 200 MG/10 ML UDC PO SCH ×4 (06:00→18:00)
[2020-11-21] MEDS: ACETYLCYSTEINE 20% 4 ML VIAL (200MG/ML) INH SCH ×2 (06:30→19:50)
[2020-11-21] MEDS: ALBUTEROL SULFATE 2.5 MG/0.5 ML INH NEB SOLN NEB SCH ×4 (06:30→19:49)
[2020-11-21] MEDS: (RENVELA) SEVELAMER **CARBONate** 800 MG TAB PO SCH ×3 (08:00→18:00)
[2020-11-21] MEDS: HEPARIN SOD (PORCINE) 5000UNITS/ML 1ML VIAL/SYRINGE SQ SCH ×2 (10:54→22:06)
[2020-11-21] MEDS: levETIRAcetam 250MG TABLET (KEPPRA) PO SCH (10:55)
[2020-11-21] MEDS: SERTRALINE 100 MG TAB PO SCH (10:55)
[2020-11-21] MEDS: ERYTHROMYCIN OPHTH OINT OU SCH ×3 (10:55→22:06)
[2020-11-21] MEDS: AMIODARONE 200 MG TAB (PACERONE) PO SCH (10:55)
[2020-11-21] MEDS: PANTOPRAZOLE 40MG TAB (PROTONIX) PO SCH (10:55)
--- NOTE | 2020-11-21 13:53 | IPNPDOC ---
Text Note Date of Service The patient was seen on 11/21/20. NOTE S Patient was seen and examined this morning at bedside. Denies any new complaints feeling well endorses that crusting of his eyelids has improved. No acute overnight events. O GENERAL: Morbidly obese male. Crusting over eyelids improved erythema better HEAD/NECK: PERRLA, EOMI CARDIOVASCULAR: S1, S2 RESPIRATORY: CTA ABDOMEN: Obese, positive bowel sounds, nontender. No organomegaly. MUSCULOSKELETAL: Decreased range of movement of lower extremities because he is chronically bedridden. CODE OFFICIAL: No focal deficit. Awake. Able to communicate appropriately. Moves bilateral upper extremities. Lower extremities are weak because of bedridden status. A/P 50 year old male with multiple comorbidities including ESRD on hemodialysis, currently [facility] # Serial conjunctivitis: Started on erythromycin ointment bilaterally start date 2020 for 7 days. Improved. # Episodes of Acute on Chronic respiratory failure with hypoxia and hypercarbia: secondary to restrictive lung disease from his obesity, obesity hypoventilation. with acute metabolic encephalopathy due to hypercarbia during his prolonged hospitalization. 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 His seroquel was increased His nebs were changed form duonebs to albuterol only. Mucomyst nebs # Morbid obesity/obstructive sleep apnea: Continue pressure support ventilation during sleep # ESRD on hemodialysis: Patient is being dialyzed according to his regular TTS schedule # Hypotension: Continue midodrine on dialysis days. # Anemia: Stable, monitor and transfuse if indicated. # Chronically bedridden: [facility] # Serious disorder: Keppra # Paroxysmal A. fib: Amiodarone # Depression/anxiety: Sertraline and clonazepam # GERD: PPI # Severe spinal stenosis: Oxycodone as needed A Yousef Hospitalist VS,Carlie, I+O VS, Carlie, I+O Vital Signs Date Time Temp Pulse Resp B/P (MAP) Pulse Ox O2 Delivery O2 Flow Rate FiO2 11/21/20 06:00 97.3 80 18 113/45 (67) 95 Trach Collar 5.0 11/20/20 21:00 28 I&O- Last 24 Hours up to 6 AM 11/21/20 05:59 Intake Total 1310 ml Output Total 3500 ml Balance -2190 ml KAYLA RIZVI MD Nov 21, 2020 13:52
[2020-11-21] MEDS: PRAMIPEXOLE (MIRAPEX) 0.125 MG TAB PO SCH (22:05)
[2020-11-21] MEDS: SENOKOT S TAB PO SCH (22:05)
[2020-11-21] MEDS: clonazePAM 0.5 MG TAB PO PRN (22:05)
[2020-11-21] MEDS: oxyCODONE 5MG TAB PO PRN (22:06)
[2020-11-22] MEDS: guaiFENesin SYRUP 200 MG/10 ML UDC PO SCH ×5 (01:16→23:33)
[2020-11-22] MEDS: ALBUTEROL SULFATE 2.5 MG/0.5 ML INH NEB SOLN NEB PRN ×5 (01:16→22:48)
[2020-11-22 06:00] VITALS: BP 103/43
[2020-11-22] MEDS: PANTOPRAZOLE 40MG TAB (PROTONIX) PO SCH (06:32)
[2020-11-22] MEDS: levETIRAcetam 250MG TABLET (KEPPRA) PO SCH (06:32)
[2020-11-22] MEDS: HEPARIN SOD (PORCINE) 5000UNITS/ML 1ML VIAL/SYRINGE SQ SCH ×2 (06:32→22:43)
[2020-11-22] MEDS: AMIODARONE 200 MG TAB (PACERONE) PO SCH (06:33)
[2020-11-22] MEDS: ERYTHROMYCIN OPHTH OINT OU SCH ×3 (06:33→22:48)
[2020-11-22] MEDS: SERTRALINE 100 MG TAB PO SCH (06:33)
[2020-11-22] MEDS: ALBUTEROL SULFATE 2.5 MG/0.5 ML INH NEB SOLN NEB SCH ×4 (07:30→20:14)
[2020-11-22] MEDS: ACETYLCYSTEINE 20% 4 ML VIAL (200MG/ML) INH SCH ×2 (07:30→20:14)
[2020-11-22] MEDS: (RENVELA) SEVELAMER **CARBONate** 800 MG TAB PO SCH ×3 (07:40→18:41)
[2020-11-22] MEDS: MIDODRINE 5 MG TAB PO SCH (08:23)
[2020-11-22 09:06] LABS: HEMATOCRIT 37.1 % (42.0-52.0); HEMOGLOBIN 10.4 g/dl (13.5-17.5); MEAN CORPUSCULAR HEMOGLOBIN 29.7 pg (27.0-33.0); PLATELET COUNT, AUTOMATED 152 10^3/uL (150-450); WHITE BLOOD COUNT 5.9 10^3/uL (4.0-10.0)
[2020-11-22 09:55] LABS: ALBUMIN 2.5 GM/DL (3.2-5.2); CALCIUM LEVEL 8.8 MG/DL (8.5-10.1); CREATININE FOR GFR 5.59 MG/DL (0.70-1.30); GLOMERULAR FILTRATION RATE 11.7 (>60); PHOSPHORUS LEVEL 7.7 MG/DL (2.5-4.9); POTASSIUM SERUM 4.7 MEQ/L (3.5-5.1)
[2020-11-22] MEDS: IRON SUCROSE 100MG 5ML VIAL (J1756 PER 1MG) IV SCH (10:43)
--- NOTE | 2020-11-22 12:08 | IPN ---
PROGRESS NOTE DATE: 11/22/2020 SUBJECTIVE: Mr. Richard is seen this morning during hemodialysis. He is feeling as usual and remains on trach collar. He denies any new issues. PHYSICAL EXAMINATION: VITAL SIGNS: Temperature is 96.9 degrees Fahrenheit, heart rate is 70 per minute and respiratory rate is 18 per minute. Blood pressure is 103/43 mmHg and oxygen saturation is 96% on 5 liters of oxygen via trachea collar. HEAD AND NECK: His head is atraumatic. Neck is supple. JVD is difficult to be assessed. Tracheostomy is in place. HEART: Heart sounds regular. LUNGS: Diminished breath sounds. ABDOMEN: Obese and nontender. Bowel sounds are present. EXTREMITIES: Without any cyanosis or clubbing. Lower extremity plegia related to spinal stenosis is unchanged. Right arm AV fistula is functioning. LABORATORY DATA: Today's labs shows a WBC count of 5.9, hemoglobin 10.4, and hematocrit 37.1. Platelets are 152,000. Sodium is 137, potassium 4.7, CO2 25, BUN 39 and creatinine is 5.59. Glucose is 144 and calcium is 8.8. His phosphorus is up to 7.7. PROBLEMS: 1. Endstage renal disease. Patient is being dialyzed today and he is tolerating dialysis well. 2. Respiratory failure. This is related to obstructive sleep apnea, COPD and obesity associated hypoventilation. His volume status has been well-compensated and we are trying to remove about 3.5 liters of fluid today. He is tolerating it well so far. 3. Hyperphosphatemia and this is related to diet noncompliance. Patient understands to follow his diet with restrictions. His phosphate binder has been adjusted. 4. Anemia, his anemia is stable and he remains on weekly dose of Aranesp.
--- NOTE | 2020-11-22 17:49 | IPNPDOC ---
Text Note Date of Service The patient was seen on 11/22/20. NOTE S Patient was seen and examined this morning at bedside. Denies any new complaints feeling well endorses that crusting of his eyelids has improved further. No acute overnight events. O GENERAL: Morbidly obese male. Crusting over eyelids improved erythema better HEAD/NECK: PERRLA, EOMI CARDIOVASCULAR: S1, S2 RESPIRATORY: CTA ABDOMEN: Obese, positive bowel sounds, nontender. No organomegaly. MUSCULOSKELETAL: Decreased range of movement of lower extremities because he is chronically bedridden. 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 Awake. Able to communicate appropriately. Moves bilateral upper extremities. Lower extremities are weak because of bedridden status. A/P 50 year old male with multiple comorbidities including ESRD on hemodialysis, currently ALC status pending placement to assisted facility # Serial conjunctivitis: Started on erythromycin ointment bilaterally start date 2020 for 7 days. Improved further. # Episodes of Acute on Chronic respiratory failure with hypoxia and hypercarbia: secondary to restrictive lung disease from his obesity, obesity hypoventilation. with acute metabolic encephalopathy due to hypercarbia during his prolonged hospitalization. 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 His seroquel was increased His nebs were changed form duonebs to albuterol only. Mucomyst nebs # Morbid obesity/obstructive sleep apnea: Continue pressure support ventilation during sleep # ESRD on hemodialysis: Patient is being dialyzed according to his regular TTS schedule # Hypotension: Continue midodrine on dialysis days. # Anemia: Stable, monitor and transfuse if indicated. # Chronically bedridden: Awaiting placement to assisted. # Serious disorder: Keppra # Paroxysmal A. fib: Amiodarone # Depression/anxiety: Sertraline and clonazepam # GERD: PPI # Severe spinal stenosis: Oxycodone as needed A Yousef Hospitalist Carlie HUTCHINS, I+O VSCarlie I+O Laboratory Tests 11/22/20 08:50 Vital Signs Date Time Temp Pulse Resp B/P (MAP) Pulse Ox O2 Delivery O2 Flow Rate FiO2 11/22/20 08:00 5.0 28 11/22/20 06:00 96.9 69 19 103/43 (63) 96 Trach Collar I&O- Last 24 Hours up to 6 AM 11/22/20 06:00 Intake Total 1070 ml Output Total 0 ml Balance 1070 ml KAYLA RIZVI MD Nov 22, 2020 17:49
[2020-11-22] MEDS: clonazePAM 0.5 MG TAB PO PRN (22:42)
[2020-11-22] MEDS: SENOKOT S TAB PO SCH (22:42)
[2020-11-22] MEDS: PRAMIPEXOLE (MIRAPEX) 0.125 MG TAB PO SCH (22:42)
[2020-11-22] MEDS: oxyCODONE 5MG TAB PO PRN (22:43)
[2020-11-23] MEDS: ALBUTEROL SULFATE 2.5 MG/0.5 ML INH NEB SOLN NEB PRN ×4 (01:11→21:39)
[2020-11-23 06:00] VITALS: BP 109/65
[2020-11-23] MEDS: guaiFENesin SYRUP 200 MG/10 ML UDC PO SCH ×4 (06:21→23:59)
[2020-11-23] MEDS: ALBUTEROL SULFATE 2.5 MG/0.5 ML INH NEB SOLN NEB SCH ×4 (07:44→18:09)
[2020-11-23] MEDS: ACETYLCYSTEINE 20% 4 ML VIAL (200MG/ML) INH SCH ×2 (07:44→18:09)
[2020-11-23] MEDS: SERTRALINE 100 MG TAB PO SCH (09:53)
[2020-11-23] MEDS: levETIRAcetam 250MG TABLET (KEPPRA) PO SCH (09:54)
[2020-11-23] MEDS: (RENVELA) SEVELAMER **CARBONate** 800 MG TAB PO SCH ×3 (09:54→18:00)
[2020-11-23] MEDS: PANTOPRAZOLE 40MG TAB (PROTONIX) PO SCH (09:54)
[2020-11-23] MEDS: HEPARIN SOD (PORCINE) 5000UNITS/ML 1ML VIAL/SYRINGE SQ SCH ×2 (09:54→21:28)
[2020-11-23] MEDS: AMIODARONE 200 MG TAB (PACERONE) PO SCH (09:54)
[2020-11-23] MEDS: ERYTHROMYCIN OPHTH OINT OU SCH ×3 (09:54→21:29)
[2020-11-23] MEDS: PRAMIPEXOLE (MIRAPEX) 0.125 MG TAB PO SCH (21:28)
[2020-11-23] MEDS: SENOKOT S TAB PO SCH (21:28)
[2020-11-23] MEDS: clonazePAM 0.5 MG TAB PO PRN (21:28)
[2020-11-24] MEDS: ALBUTEROL SULFATE 2.5 MG/0.5 ML INH NEB SOLN NEB PRN ×7 (00:18→23:59)
[2020-11-24] MEDS: guaiFENesin SYRUP 200 MG/10 ML UDC PO SCH ×3 (05:13→17:36)
[2020-11-24 06:01] VITALS: BP 125/51
[2020-11-24] MEDS: ACETYLCYSTEINE 20% 4 ML VIAL (200MG/ML) INH SCH ×2 (07:29→18:24)
[2020-11-24] MEDS: ALBUTEROL SULFATE 2.5 MG/0.5 ML INH NEB SOLN NEB SCH ×4 (07:29→18:24)
[2020-11-24] MEDS: HEPARIN SOD (PORCINE) 5000UNITS/ML 1ML VIAL/SYRINGE SQ SCH ×2 (09:38→20:34)
[2020-11-24] MEDS: ERYTHROMYCIN OPHTH OINT OU SCH ×3 (09:38→20:36)
[2020-11-24] MEDS: (RENVELA) SEVELAMER **CARBONate** 800 MG TAB PO SCH ×4 (09:39→17:38)
[2020-11-24] MEDS: SERTRALINE 100 MG TAB PO SCH (09:39)
[2020-11-24] MEDS: PANTOPRAZOLE 40MG TAB (PROTONIX) PO SCH (09:39)
[2020-11-24] MEDS: levETIRAcetam 250MG TABLET (KEPPRA) PO SCH (09:39)
[2020-11-24] MEDS: AMIODARONE 200 MG TAB (PACERONE) PO SCH (09:39)
[2020-11-24] MEDS: SENOKOT S TAB PO SCH (20:35)
[2020-11-24] MEDS: oxyCODONE 5MG TAB PO PRN (20:35)
[2020-11-24] MEDS: clonazePAM 0.5 MG TAB PO PRN (20:35)
[2020-11-24] MEDS: PRAMIPEXOLE (MIRAPEX) 0.125 MG TAB PO SCH (20:35)
[2020-11-25] MEDS: ALBUTEROL SULFATE 2.5 MG/0.5 ML INH NEB SOLN NEB PRN ×4 (02:17→23:17)
[2020-11-25 06:00] VITALS: BP 120/49
[2020-11-25] MEDS: HEPARIN SOD (PORCINE) 5000UNITS/ML 1ML VIAL/SYRINGE SQ SCH ×2 (06:33→21:42)
[2020-11-25] MEDS: guaiFENesin SYRUP 200 MG/10 ML UDC PO SCH ×6 (06:34→23:17)
[2020-11-25] MEDS: levETIRAcetam 250MG TABLET (KEPPRA) PO SCH (06:34)
[2020-11-25] MEDS: SERTRALINE 100 MG TAB PO SCH (06:34)
[2020-11-25] MEDS: AMIODARONE 200 MG TAB (PACERONE) PO SCH (06:34)
[2020-11-25] MEDS: PANTOPRAZOLE 40MG TAB (PROTONIX) PO SCH (06:36)
[2020-11-25] MEDS: ALBUTEROL SULFATE 2.5 MG/0.5 ML INH NEB SOLN NEB SCH ×4 (07:16→20:51)
[2020-11-25] MEDS: ACETYLCYSTEINE 20% 4 ML VIAL (200MG/ML) INH SCH ×2 (07:16→20:51)
[2020-11-25] MEDS: MIDODRINE 5 MG TAB PO SCH (07:50)
[2020-11-25] MEDS: ERYTHROMYCIN OPHTH OINT OU SCH ×4 (07:50→21:42)
[2020-11-25] MEDS: (RENVELA) SEVELAMER **CARBONate** 800 MG TAB PO SCH ×4 (07:50→18:00)
[2020-11-25] MEDS ORDERED: LIDOCAINE 1% SDV 5ML VIAL SC PRN (08:00)
--- NOTE | 2020-11-25 12:18 | IPN ---
NEPROLOGY PROGRESS NOTE DATE: 11/25/2020 SUBJECTIVE: The patient was seen and examined at the bedside today morning during hemodialysis procedure. He denies any complaints at this time. OBJECTIVE: VITAL SIGNS: Temperature 96.4 degrees Fahrenheit, blood pressure 120/49, pulse 70, respiratory rate 20, saturating 98% on trach collar at 5 liters. INTAKE AND OUTPUT: There is no urine output recorded. Weight in the bed scale is not available. PHYSICAL EXAMINATION: GENERAL: Patient is awake, alert, oriented times three, morbidly obese, laying in bed getting hemodialysis done.. HEAD AND NECK EXAM: Pupils equally round and reactive to light. Mucous membranes are moist. Neck is supple. He has a trach collar at this time. CARDIOVASCULAR: S1, S2. Regular rate. 2+ edema of the bilateral thighs was noted. RESPIRATORY: Chest is clear to auscultation bilaterally. He is chronically dependent on trach. No rales or rhonchi. ABDOMEN: Soft. Morbidly obese. I could not appreciate any organomegaly. MUSCULOSKELETAL: He has Waffle boots on bilateral lower extremities because of chronically being bedridden and he has 2+ edema on the thighs. CENTRAL NERVOUS SYSTEM (GAS TRANSFER OPERATOR): No focal deficits. He follows commands and moves bilateral upper extremities. LABORATORY REVIEW: CBC showed a WBC 5.9, hemoglobin 10.4 on November 22, 2020. BMP done on November 22, 2020 showed potassium 4.7 and phosphorus 7.7. CURRENT INPATIENT MEDICATIONS: The patient's medications are all reviewed by myself. There is no significant change in the medications today as compared with yesterday, the last time when I saw him, ASSESSMENT AND PLAN: 1. End-stage renal disease. The patient is being dialyzed according to his regular regimen. He does have edema on the bilateral lower extremities. Fluid removal today will be 4 liters. 2. Anemia in end-stage renal disease. Hemoglobin level is optimized with current dose of Aranesp that he is getting with dialysis. 3. Chronic kidney disease, mineral bone disease. Patient has persistent hyperphosphatemia. There is no use adjusting his binders because he refuses to take them. He is supposed to be on Renvela, which he has not taken for many days. 4. Hypotension during dialysis. Patient gets midodrine before dialysis and his blood pressures are within the optimum range.
[2020-11-25] MEDS: NYSTATIN 100,000 UNITS/GM TOPICAL PWD 15 GM TOP SCH (18:01)
[2020-11-25] MEDS: SENOKOT S TAB PO SCH (21:41)
[2020-11-25] MEDS: clonazePAM 0.5 MG TAB PO PRN (21:41)
[2020-11-25] MEDS: oxyCODONE 5MG TAB PO PRN (21:41)
[2020-11-25] MEDS: PRAMIPEXOLE (MIRAPEX) 0.125 MG TAB PO SCH (21:41)
[2020-11-26] MEDS: ALBUTEROL SULFATE 2.5 MG/0.5 ML INH NEB SOLN NEB PRN ×5 (02:10→23:30)
[2020-11-26] MEDS: guaiFENesin SYRUP 200 MG/10 ML UDC PO SCH ×4 (05:54→23:30)
[2020-11-26 06:00] VITALS: BP 140/59
[2020-11-26] MEDS: ACETYLCYSTEINE 20% 4 ML VIAL (200MG/ML) INH SCH ×2 (07:09→17:55)
[2020-11-26] MEDS: ALBUTEROL SULFATE 2.5 MG/0.5 ML INH NEB SOLN NEB SCH ×4 (07:09→17:54)
[2020-11-26] MEDS: ERYTHROMYCIN OPHTH OINT OU SCH ×3 (10:02→21:12)
[2020-11-26] MEDS: NYSTATIN 100,000 UNITS/GM TOPICAL PWD 15 GM TOP SCH (10:03)
[2020-11-26] MEDS: SERTRALINE 100 MG TAB PO SCH (10:03)
[2020-11-26] MEDS: PANTOPRAZOLE 40MG TAB (PROTONIX) PO SCH (10:03)
[2020-11-26] MEDS: (RENVELA) SEVELAMER **CARBONate** 800 MG TAB PO SCH ×3 (10:03→17:45)
[2020-11-26] MEDS: AMIODARONE 200 MG TAB (PACERONE) PO SCH (10:03)
[2020-11-26] MEDS: levETIRAcetam 250MG TABLET (KEPPRA) PO SCH (10:03)
[2020-11-26] MEDS: HEPARIN SOD (PORCINE) 5000UNITS/ML 1ML VIAL/SYRINGE SQ SCH ×2 (10:04→21:13)
[2020-11-26] MEDS: SENOKOT S TAB PO SCH (21:12)
[2020-11-26] MEDS: clonazePAM 0.5 MG TAB PO PRN (21:12)
[2020-11-26] MEDS: oxyCODONE 5MG TAB PO PRN (21:12)
[2020-11-26] MEDS: PRAMIPEXOLE (MIRAPEX) 0.125 MG TAB PO SCH (21:12)
[2020-11-27] MEDS: ALBUTEROL SULFATE 2.5 MG/0.5 ML INH NEB SOLN NEB PRN ×3 (02:37→23:24)
[2020-11-27] MEDS: levETIRAcetam 250MG TABLET (KEPPRA) PO SCH (05:44)
[2020-11-27] MEDS: guaiFENesin SYRUP 200 MG/10 ML UDC PO SCH ×4 (05:44→23:24)
[2020-11-27] MEDS: SERTRALINE 100 MG TAB PO SCH (05:44)
[2020-11-27] MEDS: NYSTATIN 100,000 UNITS/GM TOPICAL PWD 15 GM TOP SCH (05:45)
[2020-11-27] MEDS: PANTOPRAZOLE 40MG TAB (PROTONIX) PO SCH (05:45)
[2020-11-27] MEDS: AMIODARONE 200 MG TAB (PACERONE) PO SCH (05:45)
[2020-11-27] MEDS: HEPARIN SOD (PORCINE) 5000UNITS/ML 1ML VIAL/SYRINGE SQ SCH ×2 (05:45→21:39)
[2020-11-27] MEDS: ERYTHROMYCIN OPHTH OINT OU SCH ×2 (05:45→16:49)
[2020-11-27 06:00] VITALS: BP 145/62
[2020-11-27] MEDS: ALBUTEROL SULFATE 2.5 MG/0.5 ML INH NEB SOLN NEB SCH ×4 (07:30→20:46)
[2020-11-27] MEDS: ACETYLCYSTEINE 20% 4 ML VIAL (200MG/ML) INH SCH ×2 (07:30→20:46)
[2020-11-27] MEDS: (RENVELA) SEVELAMER **CARBONate** 800 MG TAB PO SCH ×3 (08:00→18:50)
[2020-11-27] MEDS: MIDODRINE 5 MG TAB PO SCH (08:18)
[2020-11-27] MEDS: DIMETHICONE 2% OINTMENT(VANICREAM) 70GM TUBE TOP SCH ×2 (09:00→21:40)
[2020-11-27 09:46] LABS: BASO % 0.5 % (0.0-1.0); EOS # 0.3 10^3/uL (0.0-0.5); EOS % 5.5 % (0.0-3.0); HEMATOCRIT 35.7 % (42.0-52.0); HEMOGLOBIN 10.2 g/dl (13.5-17.5); LYMPH # 2.1 10^3/uL (1.5-5.0); LYMPH % 34.9 % (24.0-44.0); MEAN CORPUSCULAR HEMOGLOBIN 30.1 pg (27.0-33.0); MEAN CORPUSCULAR HGB CONC 28.6 g/dl (32.0-36.5); MEAN CORPUSCULAR VOLUME 105.3 fl (80.0-96.0); MONO # 0.3 10^3/uL (0.0-0.8); MONO % 4.3 % (0.0-5.0); NEUTROPHILS # 3.3 10^3/uL (1.5-8.5); NEUTROPHILS % 54.5 % (36.0-66.0); PLATELET COUNT, AUTOMATED 153 10^3/uL (150-450); RED BLOOD COUNT 3.39 10^6/uL (4.30-6.10)
[2020-11-27 09:50] LABS: ALBUMIN 2.6 GM/DL (3.2-5.2); CALCIUM LEVEL 8.7 MG/DL (8.5-10.1); CREATININE FOR GFR 6.19 MG/DL (0.70-1.30); GLOMERULAR FILTRATION RATE 10.4 (>60); PHOSPHORUS LEVEL 7.3 MG/DL (2.5-4.9); POTASSIUM SERUM 4.6 MEQ/L (3.5-5.1)
[2020-11-27] MEDS: DARBEPOETIN 200MCG/0.4ML *DIALYSIS* SYRINGE (J0882 PER 1MCG) IV SCH (09:50)
[2020-11-27] MEDS ORDERED: LIDOCAINE 1% SDV 5ML VIAL SC PRN (10:30)
--- NOTE | 2020-11-27 13:09 | IPN ---
NEPHROLOGY PROGRESS NOTE DATE: 11/27/2020 SUBJECTIVE: Patient was seen and examined today morning during dialysis procedure. He is tolerating the hemodialysis procedure well. He denies any active complaints at this time. OBJECTIVE: VITAL SIGNS: Temperature 96.5 degrees Fahrenheit, blood pressure 145/62, pulse 71, respiratory rate 20, saturating 99% on trach collar at 5 liters. INTAKE AND OUTPUT: Urine output is not recorded. Weight in the bed scale is not available. PHYSICAL EXAMINATION: GENERAL: Patient is morbidly obese, laying in bed getting hemodialysis done. HEAD AND NECK EXAM: Extraocular muscles intact. Pupils equally round and reactive to light. He has a trach collar. CARDIOVASCULAR: S1, S2. Regular rate. Very trace edema of the bilateral lower extremities. RESPIRATORY: Chest is clear to auscultation bilaterally. He is trach collar dependent. ABDOMEN: Very obese. I could not appreciate any organomegaly. MUSCULOSKELETAL: He has decreased range of movement of bilateral lower extremities because he is chronically bedridden. CENTRAL NERVOUS SYSTEM (HOST/HOSTESS HEAD): Patient is otherwise awake and alert. He follows commands and moves extremities bilaterally in upper extremities. LABORATORY REVIEW: CBC showed a WBC 6, hemoglobin 10.2, platelets 153, BMP showed sodium 138, potassium 4.6, chloride 102, bicarbonate 25, BUN 39, creatinine 6.1, phosphorus 7.3. CURRENT INPATIENT MEDICATIONS: Patients' medications were all reviewed by myself. There is no significant change in the medications today. ASSESSMENT AND PLAN: 1. End-stage renal disease. Patient is being dialyzed according to his regular schedule. Ultrafiltration goal will be around 3 liters as tolerated by his blood pressure. 2. Anemia in end-stage renal disease. Hemoglobin level is stable and optimal with current dose of Aranesp that he is receiving with dialysis. 3. Hypotension with dialysis. Patient gets midodrine before dialysis and he is stable for now. 4. Chronic kidney disease/mineral bone disease with hyperphosphatemia. Patient is noncompliant with his phosphorous binders. 5. Secondary hyperparathyroidism. Parathyroid hormone (PTH) level is optimal for his renal failure. No need of calcitriol at this time.
[2020-11-27 14:18] VITALS: BP 143/62
[2020-11-27] MEDS: oxyCODONE 5MG TAB PO PRN (21:38)
[2020-11-27] MEDS: PRAMIPEXOLE (MIRAPEX) 0.125 MG TAB PO SCH (21:39)
[2020-11-27] MEDS: SENOKOT S TAB PO SCH (21:39)
[2020-11-27] MEDS: clonazePAM 0.5 MG TAB PO PRN (21:40)
[2020-11-28] MEDS: ALBUTEROL SULFATE 2.5 MG/0.5 ML INH NEB SOLN NEB PRN ×4 (02:49→23:45)
[2020-11-28 06:00] VITALS: BP 127/56
[2020-11-28] MEDS: guaiFENesin SYRUP 200 MG/10 ML UDC PO SCH ×4 (06:09→23:45)
[2020-11-28] MEDS: (RENVELA) SEVELAMER **CARBONate** 800 MG TAB PO SCH ×3 (08:00→17:42)
[2020-11-28] MEDS: ALBUTEROL SULFATE 2.5 MG/0.5 ML INH NEB SOLN NEB SCH ×4 (08:12→20:39)
[2020-11-28] MEDS: ACETYLCYSTEINE 20% 4 ML VIAL (200MG/ML) INH SCH ×2 (08:12→20:39)
[2020-11-28] MEDS: BOUDREAUX'S BUTT PASTE TOP SCH ×2 (09:00→20:44)
[2020-11-28] MEDS: PANTOPRAZOLE 40MG TAB (PROTONIX) PO SCH (10:26)
[2020-11-28] MEDS: levETIRAcetam 250MG TABLET (KEPPRA) PO SCH (10:26)
[2020-11-28] MEDS: HEPARIN SOD (PORCINE) 5000UNITS/ML 1ML VIAL/SYRINGE SQ SCH ×2 (10:26→20:42)
[2020-11-28] MEDS: SERTRALINE 100 MG TAB PO SCH (10:27)
[2020-11-28] MEDS: AMIODARONE 200 MG TAB (PACERONE) PO SCH (10:27)
[2020-11-28] MEDS: NYSTATIN 100,000 UNITS/GM TOPICAL PWD 15 GM TOP SCH (10:27)
[2020-11-28] MEDS: DIMETHICONE 2% OINTMENT(VANICREAM) 70GM TUBE TOP SCH ×2 (10:28→20:44)
[2020-11-28] MEDS: clonazePAM 0.5 MG TAB PO PRN (20:43)
[2020-11-28] MEDS: SENOKOT S TAB PO SCH (20:43)
[2020-11-28] MEDS: oxyCODONE 5MG TAB PO PRN (20:43)
[2020-11-28] MEDS: PRAMIPEXOLE (MIRAPEX) 0.125 MG TAB PO SCH (20:44)
[2020-11-29] MEDS: ALBUTEROL SULFATE 2.5 MG/0.5 ML INH NEB SOLN NEB PRN ×4 (02:09→22:18)
[2020-11-29 06:00] VITALS: BP 132/58
[2020-11-29] MEDS: (RENVELA) SEVELAMER **CARBONate** 800 MG TAB PO SCH ×3 (06:03→18:43)
[2020-11-29] MEDS: guaiFENesin SYRUP 200 MG/10 ML UDC PO SCH ×3 (06:03→18:43)
[2020-11-29] MEDS: SERTRALINE 100 MG TAB PO SCH (06:04)
[2020-11-29] MEDS: AMIODARONE 200 MG TAB (PACERONE) PO SCH (06:04)
[2020-11-29] MEDS: PANTOPRAZOLE 40MG TAB (PROTONIX) PO SCH (06:04)
[2020-11-29] MEDS: levETIRAcetam 250MG TABLET (KEPPRA) PO SCH (06:04)
[2020-11-29] MEDS: HEPARIN SOD (PORCINE) 5000UNITS/ML 1ML VIAL/SYRINGE SQ SCH ×2 (06:05→22:14)
[2020-11-29] MEDS: BOUDREAUX'S BUTT PASTE TOP SCH ×2 (06:05→22:14)
[2020-11-29] MEDS: DIMETHICONE 2% OINTMENT(VANICREAM) 70GM TUBE TOP SCH ×2 (06:06→22:14)
[2020-11-29] MEDS: NYSTATIN 100,000 UNITS/GM TOPICAL PWD 15 GM TOP SCH (06:06)
[2020-11-29] MEDS: ACETYLCYSTEINE 20% 4 ML VIAL (200MG/ML) INH SCH ×2 (07:08→20:18)
[2020-11-29] MEDS: ALBUTEROL SULFATE 2.5 MG/0.5 ML INH NEB SOLN NEB SCH ×4 (07:08→20:18)
[2020-11-29] MEDS: MIDODRINE 5 MG TAB PO SCH (07:51)
[2020-11-29] MEDS: PRAMIPEXOLE (MIRAPEX) 0.125 MG TAB PO SCH (22:13)
[2020-11-29] MEDS: SENOKOT S TAB PO SCH (22:13)
[2020-11-29] MEDS: clonazePAM 0.5 MG TAB PO PRN (22:15)
[2020-11-29] MEDS: oxyCODONE 5MG TAB PO PRN (22:16)
[2020-11-30] MEDS: ALBUTEROL SULFATE 2.5 MG/0.5 ML INH NEB SOLN NEB PRN ×5 (01:10→23:00)
[2020-11-30] MEDS: guaiFENesin SYRUP 200 MG/10 ML UDC PO SCH ×5 (01:30→23:00)
[2020-11-30 06:00] VITALS: BP 115/54
[2020-11-30] MEDS: AMIODARONE 200 MG TAB (PACERONE) PO SCH (06:16)
[2020-11-30] MEDS: levETIRAcetam 250MG TABLET (KEPPRA) PO SCH (06:16)
[2020-11-30] MEDS: HEPARIN SOD (PORCINE) 5000UNITS/ML 1ML VIAL/SYRINGE SQ SCH ×2 (06:17→22:20)
[2020-11-30] MEDS: SERTRALINE 100 MG TAB PO SCH (06:17)
[2020-11-30] MEDS: PANTOPRAZOLE 40MG TAB (PROTONIX) PO SCH (06:17)
[2020-11-30] MEDS ORDERED: LIDOCAINE 1% SDV 5ML VIAL SC PRN (07:00)
[2020-11-30] MEDS: ALBUTEROL SULFATE 2.5 MG/0.5 ML INH NEB SOLN NEB SCH ×4 (07:28→20:38)
[2020-11-30] MEDS: ACETYLCYSTEINE 20% 4 ML VIAL (200MG/ML) INH SCH ×2 (07:29→20:38)
[2020-11-30] MEDS: MIDODRINE 5 MG TAB PO SCH (08:29)
[2020-11-30] MEDS: (RENVELA) SEVELAMER **CARBONate** 800 MG TAB PO SCH ×3 (08:29→18:00)
[2020-11-30] MEDS: DIMETHICONE 2% OINTMENT(VANICREAM) 70GM TUBE TOP SCH ×2 (15:25→22:21)
[2020-11-30] MEDS: BOUDREAUX'S BUTT PASTE TOP SCH ×2 (15:25→22:20)
[2020-11-30] MEDS: NYSTATIN 100,000 UNITS/GM TOPICAL PWD 15 GM TOP SCH (15:25)
--- NOTE | 2020-11-30 19:29 | IPN ---
PROGRESS NOTE DATE: 11/30/2020 SUBJECTIVE: Patient was seen and examined at the bedside today morning during hemodialysis. He is tolerating the hemodialysis procedure well. He denies any active complaints at this time. OBJECTIVE: VITAL SIGNS: Temperature 98.3 degrees Fahrenheit, blood pressure 115/54, pulse 68, respiratory rate 17, saturating 98% on trach collar at 5 liters. INTAKE AND OUTPUT: Urine output is not recorded. Weight in the bed scale is not available. PHYSICAL EXAMINATION: GENERAL: Patient is awake, alert and oriented x3, morbidly obese, lying in bed getting dialysis done. HEAD/NECK: Pupils equally round and reactive to light. Mucous membranes are moist. Neck is supple. He has a trach collar. CARDIOVASCULAR: S1, S2, regular rate. 1+ edema of the thighs. RESPIRATORY: Chest is clear to auscultation bilaterally. ABDOMEN: Soft, obese, positive bowel sounds, nontender. No organomegaly. MUSCULOSKELETAL: Decreased range of movement of the bilateral lower extremities. He is chronically bedridden. REPRINT SORTER: No focal deficit in the bilateral upper extremities. He is able to follow commands and move his extremities. LABORATORY REVIEW: CBC is from November 27 and BMP is also from November 27. There are no new labs available. CURRENT INPATIENT MEDICATIONS: Patient's medications were all reviewed by myself. There is no significant change in the medications today. ASSESSMENT AND PLAN: 1. End-stage renal disease: Patient is being dialyzed according to his regular schedule. Ultrafiltration goal is 4 liters as tolerated by his blood pressure. 2. Anemia and end-stage renal disease: Hemoglobin is stable with current dose of Aranesp. 3. Chronic kidney disease/mineral bone disease: Patient has persistent hyperphosphatemia and he is noncompliant with his binders. He refuses to take Renvela. 4. Hypotension: Patient gets 5 mg of Midodrine before dialysis and blood pressures are within the acceptable range.
[2020-11-30] MEDS: SENOKOT S TAB PO SCH (22:20)
[2020-11-30] MEDS: PRAMIPEXOLE (MIRAPEX) 0.125 MG TAB PO SCH (22:20)
[2020-11-30] MEDS: clonazePAM 0.5 MG TAB PO PRN (22:21)
[2020-11-30] MEDS: oxyCODONE 5MG TAB PO PRN (22:23)
[2020-12-01] MEDS: ALBUTEROL SULFATE 2.5 MG/0.5 ML INH NEB SOLN NEB PRN ×5 (01:26→23:32)
[2020-12-01] MEDS: guaiFENesin SYRUP 200 MG/10 ML UDC PO SCH ×4 (05:04→23:32)
[2020-12-01 06:00] VITALS: BP 173/78
[2020-12-01] MEDS: ACETYLCYSTEINE 20% 4 ML VIAL (200MG/ML) INH SCH ×3 (08:11→18:21)
[2020-12-01] MEDS: ALBUTEROL SULFATE 2.5 MG/0.5 ML INH NEB SOLN NEB SCH ×4 (08:12→18:15)
[2020-12-01 09:00] VITALS: BP 122/82
[2020-12-01] MEDS: (RENVELA) SEVELAMER **CARBONate** 800 MG TAB PO SCH ×3 (10:01→19:10)
[2020-12-01] MEDS: AMIODARONE 200 MG TAB (PACERONE) PO SCH (10:01)
[2020-12-01] MEDS: levETIRAcetam 250MG TABLET (KEPPRA) PO SCH (10:01)
[2020-12-01] MEDS: PANTOPRAZOLE 40MG TAB (PROTONIX) PO SCH (10:01)
[2020-12-01] MEDS: SERTRALINE 100 MG TAB PO SCH (10:01)
[2020-12-01] MEDS: clonazePAM 0.5 MG TAB PO PRN ×2 (10:01→22:15)
[2020-12-01] MEDS: HEPARIN SOD (PORCINE) 5000UNITS/ML 1ML VIAL/SYRINGE SQ SCH ×2 (10:02→22:16)
[2020-12-01] MEDS: oxyCODONE 5MG TAB PO PRN ×2 (10:03→22:15)
[2020-12-01] MEDS: NYSTATIN 100,000 UNITS/GM TOPICAL PWD 15 GM TOP SCH (10:03)
[2020-12-01] MEDS: BOUDREAUX'S BUTT PASTE TOP SCH ×2 (10:03→22:16)
[2020-12-01] MEDS: DIMETHICONE 2% OINTMENT(VANICREAM) 70GM TUBE TOP SCH ×2 (10:03→22:16)
--- NOTE | 2020-12-01 12:56 | IPNPDOC ---
Text Note Date of Service The patient was seen on 12/01/20. NOTE Subjective: No any acute events overnight GENERAL: Morbidly obese male. Crusting over eyelids improved erythema better HEAD/NECK: PERRLA, EOMI CARDIOVASCULAR: S1, S2 RESPIRATORY: CTA ABDOMEN: Obese, positive bowel sounds, nontender. No organomegaly. MUSCULOSKELETAL: Decreased range of movement of lower extremities because he is chronically bedridden. STRATEGIC PLANNER: No focal deficit. Awake. Assessment and plan 50 year old male with multiple comorbidities including ESRD on hemodialysis, currently ALC status [facility] Chronic respiratory failure with hypoxia and hypercarbia secondary to restrictive lung disease from his obesity, obesity hypoventilation. Chronically has tracheostomy Morbid obesity/ NISA Complicated care Severe spinal stenosis chronic pain on oxycodone prn ESRD on hemodialysis GERD PPI Depression/ Anxiety on sertraline, clonazepam. Paroxysmal Atrial fibrillation on amiodarone Seizure disorder on keppra Hypotension. C/w midodrine on dialysis days. Anemia. Stable, monitor and transfuse if indicated. hemoglobin level is optimal Was receiving Aranesp 100 mcg once a week with dialysis until recently Chronically bedridden. Awaiting placement to detention Mineral bone disease Renvela and Velphoro dose Restless legs pramipexole. Ingrown nails I asked aerospace physiological technician team to evaluate patient VS,Fishbone, I+O VS, Fishbone, I+O Vital Signs Date Time Temp Pulse Resp B/P (MAP) Pulse Ox O2 Delivery O2 Flow Rate FiO2 12/01/20 10:33 15 93 Trach Collar 5.0 28 12/01/20 09:00 122/82 (95) 12/01/20 06:00 96.9 78 I&O- Last 24 Hours up to 6 AM 12/01/20 06:00 Intake Total 1450 ml Output Total 4000 ml Balance -2550 ml SANTY DUGAN DO Dec 01, 2020 12:56
[2020-12-01] MEDS: PRAMIPEXOLE (MIRAPEX) 0.125 MG TAB PO SCH (22:15)
[2020-12-01] MEDS: SENOKOT S TAB PO SCH (22:15)
[2020-12-02] MEDS: ALBUTEROL SULFATE 2.5 MG/0.5 ML INH NEB SOLN NEB PRN ×6 (01:33→22:56)
[2020-12-02] MEDS: guaiFENesin SYRUP 200 MG/10 ML UDC PO SCH ×3 (05:47→18:15)
[2020-12-02 06:00] VITALS: BP 118/55
[2020-12-02] MEDS: ALBUTEROL SULFATE 2.5 MG/0.5 ML INH NEB SOLN NEB SCH ×4 (07:11→16:24)
[2020-12-02] MEDS: ACETYLCYSTEINE 20% 4 ML VIAL (200MG/ML) INH SCH ×2 (07:11→20:56)
[2020-12-02] MEDS: (RENVELA) SEVELAMER **CARBONate** 800 MG TAB PO SCH ×3 (08:00→18:00)
[2020-12-02] MEDS: clonazePAM 0.5 MG TAB PO PRN ×2 (08:59→22:45)
[2020-12-02] MEDS: PANTOPRAZOLE 40MG TAB (PROTONIX) PO SCH (08:59)
[2020-12-02] MEDS: SERTRALINE 100 MG TAB PO SCH (08:59)
[2020-12-02] MEDS: AMIODARONE 200 MG TAB (PACERONE) PO SCH (08:59)
[2020-12-02] MEDS: BOUDREAUX'S BUTT PASTE TOP SCH ×2 (09:00→22:47)
[2020-12-02] MEDS: HEPARIN SOD (PORCINE) 5000UNITS/ML 1ML VIAL/SYRINGE SQ SCH ×2 (09:00→22:46)
[2020-12-02] MEDS: levETIRAcetam 250MG TABLET (KEPPRA) PO SCH (09:00)
[2020-12-02] MEDS: DIMETHICONE 2% OINTMENT(VANICREAM) 70GM TUBE TOP SCH ×2 (09:01→22:47)
[2020-12-02] MEDS: NYSTATIN 100,000 UNITS/GM TOPICAL PWD 15 GM TOP SCH (09:01)
--- NOTE | 2020-12-02 12:06 | CR ---
CONSULTATION DATE: 12/02/2020 REASON FOR CONSULTATION: Toenail care. HISTORY OF PRESENT ILLNESS: Matthew Richard is a 42-year-old paraplegic male who has been admitted at [facility] since May 2020. He has ingrowing nails that are starting to dig into his skin. I was asked for consultation to help prevent infection. PAST MEDICAL HISTORY: ESRD on dialysis, chronic respiratory failure, morbid obesity, spinal stenosis, GERD, depression, anxiety, paroxysmal atrial fibrillation, hypertension, seizures, anemia. PAST SURGICAL HISTORY: Tracheostomy. REVIEW OF SYSTEMS: He denies nausea, vomiting, fever or chills. PHYSICAL EXAMINATION: Vitals: He has been afebrile. Lower extremity examination: Very elongated dystrophic ingrowing toenails x10. No other signs of infection. ASSESSMENT: A 50-year-old male with painful ingrowing toenails. TREATMENT: Ingrowing nails debrided x10.. Please re-consult as needed Patient has had prolonged hospital stay.
[2020-12-02] MEDS: oxyCODONE 5MG TAB PO PRN (22:45)
[2020-12-02] MEDS: PRAMIPEXOLE (MIRAPEX) 0.125 MG TAB PO SCH (22:45)
[2020-12-02] MEDS: SENOKOT S TAB PO SCH (22:46)
[2020-12-03] MEDS: guaiFENesin SYRUP 200 MG/10 ML UDC PO SCH ×4 (00:28→18:27)
[2020-12-03] MEDS: ALBUTEROL SULFATE 2.5 MG/0.5 ML INH NEB SOLN NEB PRN ×3 (01:34→18:32)
[2020-12-03 06:00] VITALS: BP 118/52
[2020-12-03] MEDS: SERTRALINE 100 MG TAB PO SCH (06:19)
[2020-12-03] MEDS: (RENVELA) SEVELAMER **CARBONate** 800 MG TAB PO SCH ×3 (06:19→18:27)
[2020-12-03] MEDS: HEPARIN SOD (PORCINE) 5000UNITS/ML 1ML VIAL/SYRINGE SQ SCH ×2 (06:19→21:02)
[2020-12-03] MEDS: AMIODARONE 200 MG TAB (PACERONE) PO SCH (06:20)
[2020-12-03] MEDS: PANTOPRAZOLE 40MG TAB (PROTONIX) PO SCH (06:20)
[2020-12-03] MEDS: levETIRAcetam 250MG TABLET (KEPPRA) PO SCH (06:20)
[2020-12-03] MEDS: ACETYLCYSTEINE 20% 4 ML VIAL (200MG/ML) INH SCH ×2 (06:32→19:47)
[2020-12-03] MEDS: ALBUTEROL SULFATE 2.5 MG/0.5 ML INH NEB SOLN NEB SCH ×4 (06:33→19:47)
[2020-12-03] MEDS ORDERED: SODIUM CHLORIDE 0.9% 1000ML IV PRN (07:45)
[2020-12-03] MEDS ORDERED: LIDOCAINE 1% SDV 5ML VIAL SC PRN (07:45)
[2020-12-03] MEDS: NYSTATIN 100,000 UNITS/GM TOPICAL PWD 15 GM TOP SCH (08:10)
[2020-12-03] MEDS: MIDODRINE 5 MG TAB PO SCH (08:10)
[2020-12-03] MEDS: DIMETHICONE 2% OINTMENT(VANICREAM) 70GM TUBE TOP SCH ×2 (08:11→21:01)
[2020-12-03] MEDS: BOUDREAUX'S BUTT PASTE TOP SCH ×2 (08:11→21:01)
[2020-12-03 09:11] LABS: HEMATOCRIT 37.2 % (42.0-52.0); HEMOGLOBIN 10.6 g/dl (13.5-17.5); MEAN CORPUSCULAR HEMOGLOBIN 30.2 pg (27.0-33.0); MEAN CORPUSCULAR HGB CONC 28.5 g/dl (32.0-36.5); PLATELET COUNT, AUTOMATED 125 10^3/uL (150-450); RED BLOOD COUNT 3.51 10^6/uL (4.30-6.10)
[2020-12-03 09:22] LABS: CALCIUM LEVEL 8.4 MG/DL (8.5-10.1); CREATININE FOR GFR 6.78 MG/DL (0.70-1.30); GLOMERULAR FILTRATION RATE 9.3 (>60); POTASSIUM SERUM 5.1 MEQ/L (3.5-5.1)
[2020-12-03 10:04] LABS: PTH INTACT 558.6 PG/ML (18.5-88.0)
[2020-12-03 13:15] VITALS: BP 150/70
[2020-12-03 19:47] VITALS: O2SAT 95
[2020-12-03] MEDS: VITAMIN D 1,000 INTERNATIONAL UNITS TABLET PO SCH (21:01)
[2020-12-03] MEDS: SENOKOT S TAB PO SCH (21:01)
[2020-12-03] MEDS: PRAMIPEXOLE (MIRAPEX) 0.125 MG TAB PO SCH (21:01)
[2020-12-03] MEDS: clonazePAM 0.5 MG TAB PO PRN (21:01)
[2020-12-03] MEDS: oxyCODONE 5MG TAB PO PRN (21:03)
[2020-12-04] MEDS: ALBUTEROL SULFATE 2.5 MG/0.5 ML INH NEB SOLN NEB PRN ×3 (00:07→06:42)
[2020-12-04] MEDS: guaiFENesin SYRUP 200 MG/10 ML UDC PO SCH ×4 (00:07→18:00)
[2020-12-04 06:00] VITALS: BP 119/71
[2020-12-04] MEDS: ACETYLCYSTEINE 20% 4 ML VIAL (200MG/ML) INH SCH ×2 (07:11→19:36)
[2020-12-04] MEDS: ALBUTEROL SULFATE 2.5 MG/0.5 ML INH NEB SOLN NEB SCH ×4 (07:11→19:36)
[2020-12-04] MEDS: (RENVELA) SEVELAMER **CARBONate** 800 MG TAB PO SCH ×3 (08:00→18:00)
[2020-12-04] MEDS: AMIODARONE 200 MG TAB (PACERONE) PO SCH (08:14)
[2020-12-04] MEDS: VITAMIN D 1,000 INTERNATIONAL UNITS TABLET PO SCH (08:14)
[2020-12-04] MEDS: levETIRAcetam 250MG TABLET (KEPPRA) PO SCH (08:14)
[2020-12-04] MEDS: clonazePAM 0.5 MG TAB PO PRN ×2 (08:14→20:52)
[2020-12-04] MEDS: PANTOPRAZOLE 40MG TAB (PROTONIX) PO SCH (08:14)
[2020-12-04] MEDS: SERTRALINE 100 MG TAB PO SCH (08:14)
[2020-12-04] MEDS: oxyCODONE 5MG TAB PO PRN ×2 (08:15→20:52)
[2020-12-04] MEDS: HEPARIN SOD (PORCINE) 5000UNITS/ML 1ML VIAL/SYRINGE SQ SCH ×2 (08:15→20:45)
[2020-12-04] MEDS: BOUDREAUX'S BUTT PASTE TOP SCH ×2 (08:16→20:45)
[2020-12-04] MEDS: NYSTATIN 100,000 UNITS/GM TOPICAL PWD 15 GM TOP SCH (08:16)
[2020-12-04] MEDS: DIMETHICONE 2% OINTMENT(VANICREAM) 70GM TUBE TOP SCH ×2 (08:16→20:45)
--- NOTE | 2020-12-04 09:26 | IPN ---
PROGRESS NOTE DATE: 12/03/2020 SUBJECTIVE: Matthew is seen and examined this morning in the hemodialysis unit receiving his treatment. I discussed with him regarding his hyperphosphatemia. He has been refusing his Renvela phosphorus binder and I discussed the need with him for compliance. His dialysis treatments have been uneventful. He offers no complaints. OBJECTIVE: VITAL SIGNS: Temperature 98.1, pulse 71, respiratory rate 20, blood pressure 150/70, saturating 98% on 5 liter trach collar. INTAKE AND OUTPUT: Intake yesterday 2.4 liters. Dialysis today removed 4 liters. Weight in the bed scale today is not recorded. GENERAL: Patient is seen awake, alert, oriented and receiving his hemodialysis treatment in no distress. HEENT: Extraocular muscles are intact. Ear and nose are unremarkable. NECK: He has tracheostomy status. HEART: Sounds are regular. S1, S2. LUNGS: Anterior auscultation only. Clear to auscultation. No crackle or rale. ABDOMEN: Obese, soft and nontender. EXTREMITIES: There is 1+ dependent edema. His feet are in soft boots. His fistula in the arm is in use and patent. NEUROLOGIC: He is at his baseline mentation. He is able to follow commands, move his extremities and he attempts to speak by mouthing words. LABORATORY DATA: Today's laboratory studies show white count 6.0, hemoglobin 10.6, platelets 125,000. Sodium 138, potassium 5.1. Phosphorus 7.3 and parathyroid hormone 558. INPATIENT MEDICATIONS: Reviewed by myself. He continues on Midodrine pre-dialysis. The remainder of his medications are unchanged as compared to previous days. PROBLEMS: 1. End-stage renal disease on hemodialysis on a Wednesday, , Wednesday schedule: The patient does not follow fluid restriction. He has been ordering food for delivery outside of the hospital. We removed 4 liters today. His electrolytes are acceptable and his volume status is acceptable as well. Continue current dialysis prescription. 2. Anemia related to end-stage renal failure: Patient continues on Aranesp with dialysis and his hemoglobin is at goal. 3. Hypotension of hemodialysis: Patient is receiving Midodrine pre-dialysis and he is tolerating fluid removal well. On his last two treatments we were able to remove 4 liters of fluid. 4. Renal osteodystrophy: Patient's parathyroid hormone is up to 558. His Vitamin D level was recently 30. I will start Vitamin D supplementation. His phosphorus is very high in the 7's because he has been refusing Renvela and I discussed need for compliance with him. 5. Hyperkalemia: Potassium up to 5.1. Nurse tells me patient has been ordering food for delivery from various restaurants to the hospital. Potassium is stable with dialysis.
[2020-12-04] MEDS: PRAMIPEXOLE (MIRAPEX) 0.125 MG TAB PO SCH (20:45)
[2020-12-04] MEDS: SENOKOT S TAB PO SCH (20:45)
[2020-12-05] MEDS: guaiFENesin SYRUP 200 MG/10 ML UDC PO SCH ×5 (00:11→23:24)
[2020-12-05] MEDS: ALBUTEROL SULFATE 2.5 MG/0.5 ML INH NEB SOLN NEB PRN ×4 (00:39→22:00)
[2020-12-05 06:00] VITALS: BP 136/51
[2020-12-05] MEDS: (RENVELA) SEVELAMER **CARBONate** 800 MG TAB PO SCH ×4 (06:39→18:00)
[2020-12-05] MEDS: VITAMIN D 1,000 INTERNATIONAL UNITS TABLET PO SCH (06:40)
[2020-12-05] MEDS: AMIODARONE 200 MG TAB (PACERONE) PO SCH (06:40)
[2020-12-05] MEDS: SERTRALINE 100 MG TAB PO SCH (06:40)
[2020-12-05] MEDS: PANTOPRAZOLE 40MG TAB (PROTONIX) PO SCH (06:41)
[2020-12-05] MEDS: levETIRAcetam 250MG TABLET (KEPPRA) PO SCH (06:41)
[2020-12-05] MEDS: HEPARIN SOD (PORCINE) 5000UNITS/ML 1ML VIAL/SYRINGE SQ SCH ×2 (06:41→21:57)
[2020-12-05] MEDS: ALBUTEROL SULFATE 2.5 MG/0.5 ML INH NEB SOLN NEB SCH ×4 (07:18→18:42)
[2020-12-05] MEDS: ACETYLCYSTEINE 20% 4 ML VIAL (200MG/ML) INH SCH ×2 (07:18→18:42)
[2020-12-05] MEDS: MIDODRINE 5 MG TAB PO SCH (08:14)
[2020-12-05] MEDS: oxyCODONE 5MG TAB PO PRN ×2 (08:19→21:57)
[2020-12-05] MEDS ORDERED: SODIUM CHLORIDE 0.9% 1000ML IV PRN (10:15)
[2020-12-05] MEDS ORDERED: LIDOCAINE 1% SDV 5ML VIAL SC PRN (10:15)
--- NOTE | 2020-12-05 12:33 | IPN ---
PROGRESS NOTE DATE: 12/05/2020 SUBJECTIVE: Matthew is seen and examined this morning in the Hemodialysis Unit receiving his maintenance treatment. He tells me that he has been more compliant with his phosphorus binder but when I look back at the medication administration I see that he continues to refuse most doses. PHYSICAL EXAMINATION: VITAL SIGNS: Temperature is 96.8, pulse is 74, respiratory rate is 18, blood pressure 136/51, saturating 99% on 5 liter trach collar. INTAKE AND OUTPUT: Intake yesterday was 2320. Weight on the bed scale today is not recorded. GENERAL: Patient is seen awake, alert, receiving his treatment, eating during his treatment as he usual does. HEENT: Extraocular muscles are intact. Ears and nose are unremarkable. NECK: There is a tracheostomy. HEART: Heart sounds are regular S1 and S2. LUNGS: Anterior auscultation only, clear. No crackle or rale. ABDOMEN: Obese, soft, nontender. EXTREMITIES: There is 1+ dependent edema. His feet are in heel protecting boots. His fistula in the right arm is patent and in use. NEUROLOGIC: He is at baseline mentation. He is able to follow commands. He is snacking during his treatment and he attempts to speak by mouthing words. LABORATORY DATA: There are no new labs from today. INPATIENT MEDICATIONS: Reviewed by myself. No changes as compared to the past few days. PROBLEMS: 1. Endstage renal disease on hemodialysis. Patient does not follow fluid restriction. He is also not following a renal diet. He has been ordering food for delivery outside the hospital. Goal fluid removal today was 4 liters but his blood pressures were somewhat soft and goal was reduced to 3.5 liters. His labs are checked intermittently and electrolytes have been acceptable. Fistula is in good use. Continue current dialysis prescription. 2. Anemia related to endstage renal failure. He continues on Aranesp for dialysis and hemoglobin is at goal. 3. Hypotension of hemodialysis. He is receiving Midodrine predialysis and he usually tolerates about 3.5 to 4 liters of fluid removal. 4. Renal osteodystrophy. Parathyroid hormone level is up to 558. His phosphorus is very high because he has been refusing his binder and also is having food delivered to him from various restaurants. Advised compliance with binder once again.
[2020-12-05] MEDS: DIMETHICONE 2% OINTMENT(VANICREAM) 70GM TUBE TOP SCH ×2 (15:58→21:58)
[2020-12-05] MEDS: NYSTATIN 100,000 UNITS/GM TOPICAL PWD 15 GM TOP SCH (15:58)
[2020-12-05] MEDS: BOUDREAUX'S BUTT PASTE TOP SCH ×2 (15:58→21:59)
[2020-12-05] MEDS: clonazePAM 0.5 MG TAB PO PRN (21:57)
[2020-12-05] MEDS: SENOKOT S TAB PO SCH (21:57)
[2020-12-05] MEDS: PRAMIPEXOLE (MIRAPEX) 0.125 MG TAB PO SCH (21:59)
[2020-12-06] MEDS: ALBUTEROL SULFATE 2.5 MG/0.5 ML INH NEB SOLN NEB PRN ×4 (01:25→22:44)
[2020-12-06] MEDS: guaiFENesin SYRUP 200 MG/10 ML UDC PO SCH ×4 (05:00→23:03)
[2020-12-06 06:00] VITALS: BP 138/54
[2020-12-06] MEDS: ACETYLCYSTEINE 20% 4 ML VIAL (200MG/ML) INH SCH ×2 (06:15→19:33)
[2020-12-06] MEDS: ALBUTEROL SULFATE 2.5 MG/0.5 ML INH NEB SOLN NEB SCH ×4 (06:15→19:32)
[2020-12-06] MEDS: AMIODARONE 200 MG TAB (PACERONE) PO SCH (09:29)
[2020-12-06] MEDS: levETIRAcetam 250MG TABLET (KEPPRA) PO SCH (09:29)
[2020-12-06] MEDS: VITAMIN D 1,000 INTERNATIONAL UNITS TABLET PO SCH (09:29)
[2020-12-06] MEDS: PANTOPRAZOLE 40MG TAB (PROTONIX) PO SCH (09:29)
[2020-12-06] MEDS: SERTRALINE 100 MG TAB PO SCH (09:29)
[2020-12-06] MEDS: (RENVELA) SEVELAMER **CARBONate** 800 MG TAB PO SCH ×3 (09:30→18:00)
[2020-12-06] MEDS: HEPARIN SOD (PORCINE) 5000UNITS/ML 1ML VIAL/SYRINGE SQ SCH ×2 (09:30→20:40)
[2020-12-06] MEDS: BOUDREAUX'S BUTT PASTE TOP SCH ×2 (09:30→20:40)
[2020-12-06] MEDS: NYSTATIN 100,000 UNITS/GM TOPICAL PWD 15 GM TOP SCH (09:31)
[2020-12-06] MEDS: DIMETHICONE 2% OINTMENT(VANICREAM) 70GM TUBE TOP SCH ×2 (09:31→20:40)
[2020-12-06] MEDS: PRAMIPEXOLE (MIRAPEX) 0.125 MG TAB PO SCH (20:38)
[2020-12-06] MEDS: oxyCODONE 5MG TAB PO PRN (20:39)
[2020-12-06] MEDS: SENOKOT S TAB PO SCH (20:39)
[2020-12-06] MEDS: clonazePAM 0.5 MG TAB PO PRN (21:11)
[2020-12-07] MEDS: ALBUTEROL SULFATE 2.5 MG/0.5 ML INH NEB SOLN NEB PRN ×5 (01:17→22:33)
[2020-12-07 06:00] VITALS: BP 160/67
[2020-12-07] MEDS: PANTOPRAZOLE 40MG TAB (PROTONIX) PO SCH (06:47)
[2020-12-07] MEDS: SERTRALINE 100 MG TAB PO SCH (06:48)
[2020-12-07] MEDS: AMIODARONE 200 MG TAB (PACERONE) PO SCH (06:48)
[2020-12-07] MEDS: levETIRAcetam 250MG TABLET (KEPPRA) PO SCH (06:48)
[2020-12-07] MEDS: VITAMIN D 1,000 INTERNATIONAL UNITS TABLET PO SCH (06:48)
[2020-12-07] MEDS: guaiFENesin SYRUP 200 MG/10 ML UDC PO SCH ×3 (06:49→17:59)
[2020-12-07] MEDS: HEPARIN SOD (PORCINE) 5000UNITS/ML 1ML VIAL/SYRINGE SQ SCH ×2 (06:49→21:47)
[2020-12-07] MEDS: (RENVELA) SEVELAMER **CARBONate** 800 MG TAB PO SCH ×3 (07:09→17:59)
[2020-12-07] MEDS: ACETYLCYSTEINE 20% 4 ML VIAL (200MG/ML) INH SCH ×2 (07:10→20:00)
[2020-12-07] MEDS: ALBUTEROL SULFATE 2.5 MG/0.5 ML INH NEB SOLN NEB SCH ×5 (07:10→20:00)
[2020-12-07] MEDS: MIDODRINE 5 MG TAB PO SCH (08:11)
[2020-12-07] MEDS ORDERED: LIDOCAINE 1% SDV 5ML VIAL SC PRN (09:00)
[2020-12-07] MEDS: BOUDREAUX'S BUTT PASTE TOP SCH ×2 (09:00→21:49)
[2020-12-07] MEDS: NYSTATIN 100,000 UNITS/GM TOPICAL PWD 15 GM TOP SCH (09:00)
[2020-12-07] MEDS: DIMETHICONE 2% OINTMENT(VANICREAM) 70GM TUBE TOP SCH ×2 (09:00→21:49)
[2020-12-07] MEDS ORDERED: SODIUM CHLORIDE 0.9% 1000ML IV PRN (09:00)
--- NOTE | 2020-12-07 14:44 | IPN ---
PROGRESS NOTE DATE: 12/07/2020 SUBJECTIVE: Patient seen and examined this morning in the hemodialysis unit receiving his treatment. He continues to snack during his dialysis treatment. He denies any complaints. No shortness of breath. No trouble with his treatment today. OBJECTIVE: VITAL SIGNS: Temperature 97.4, pulse 71, respiratory rate 20, blood pressure 160/67, saturating 94% on trach collar. INTAKE AND OUTPUT: Intake yesterday 1620. Goal dialysis fluid removal today is 4 kilos as tolerated by his hemodynamics. GENERAL: Patient is seen awake, alert and receiving his treatment in no distress. HEENT: Extraocular muscles are intact. Tongue is moist. NECK: There is a trach collar in place. HEART: Sounds are regular. S1, S2. LUNGS: Anterior auscultation only clear. No crackle or rale. ABDOMEN: Soft and nontender. EXTREMITIES: There is 1+ dependent edema. His feet are in heel protecting boots. His fistula in the right arm is patent and in use. NEUROLOGIC: He is at his baseline mentation. He follows commands. He is snacking during his treatment. He attempts to speak by mouthing words. LABORATORY DATA: There are no new labs from today. INPATIENT MEDICATIONS: Reviewed by myself and no changes noted as compared to prior days. PROBLEMS: 1. End-stage renal disease on hemodialysis on a Wednesday, , Wednesday schedule: Patient is dialyzed today without any issues. There has not been any further hypotension of hemodialysis. He received Midodrine pre-dialysis. Fistula is in good use. Laboratory studies are checked intermittently and electrolytes have been acceptable. His volume status is compensated. Continue current dialysis prescription. 2. Anemia related to end-stage renal failure: Continue on Aranesp with dialysis and hemoglobin is at goal. 3. Hypotension of hemodialysis: Continue Midodrine pre-dialysis. He continues to tolerate about 4 liters fluid removal on average with each treatment. 4. Renal osteodystrophy: Patient is noncompliant with his phosphorus binder and has been refusing the Renvela multiple times. He is having food items that are not through the renal diet or through the hospital cafeteria system.
[2020-12-07] MEDS: PRAMIPEXOLE (MIRAPEX) 0.125 MG TAB PO SCH (21:47)
[2020-12-07] MEDS: SENOKOT S TAB PO SCH (21:47)
[2020-12-07] MEDS: oxyCODONE 5MG TAB PO PRN (21:48)
[2020-12-07] MEDS: clonazePAM 0.5 MG TAB PO PRN (21:48)
[2020-12-08] MEDS: guaiFENesin SYRUP 200 MG/10 ML UDC PO SCH ×4 (00:41→17:09)
[2020-12-08] MEDS: ALBUTEROL SULFATE 2.5 MG/0.5 ML INH NEB SOLN NEB PRN ×5 (01:52→21:26)
[2020-12-08 06:00] VITALS: BP 119/52
[2020-12-08] MEDS: ACETYLCYSTEINE 20% 4 ML VIAL (200MG/ML) INH SCH ×2 (07:20→18:33)
[2020-12-08] MEDS: ALBUTEROL SULFATE 2.5 MG/0.5 ML INH NEB SOLN NEB SCH ×4 (07:20→18:33)
[2020-12-08] MEDS: (RENVELA) SEVELAMER **CARBONate** 800 MG TAB PO SCH ×3 (08:00→17:09)
[2020-12-08] MEDS: SERTRALINE 100 MG TAB PO SCH (10:56)
[2020-12-08] MEDS: AMIODARONE 200 MG TAB (PACERONE) PO SCH (10:56)
[2020-12-08] MEDS: levETIRAcetam 250MG TABLET (KEPPRA) PO SCH (10:56)
[2020-12-08] MEDS: VITAMIN D 1,000 INTERNATIONAL UNITS TABLET PO SCH (10:56)
[2020-12-08] MEDS: PANTOPRAZOLE 40MG TAB (PROTONIX) PO SCH (10:56)
[2020-12-08] MEDS: DIMETHICONE 2% OINTMENT(VANICREAM) 70GM TUBE TOP SCH ×2 (10:56→21:15)
[2020-12-08] MEDS: NYSTATIN 100,000 UNITS/GM TOPICAL PWD 15 GM TOP SCH (10:57)
[2020-12-08] MEDS: HEPARIN SOD (PORCINE) 5000UNITS/ML 1ML VIAL/SYRINGE SQ SCH ×2 (10:57→21:15)
[2020-12-08] MEDS: BOUDREAUX'S BUTT PASTE TOP SCH ×2 (10:59→21:26)
[2020-12-08] MEDS: clonazePAM 0.5 MG TAB PO PRN (21:14)
[2020-12-08] MEDS: PRAMIPEXOLE (MIRAPEX) 0.125 MG TAB PO SCH (21:14)
[2020-12-08] MEDS: SENOKOT S TAB PO SCH (21:14)
[2020-12-08] MEDS: oxyCODONE 5MG TAB PO PRN (21:15)
[2020-12-09] MEDS: guaiFENesin SYRUP 200 MG/10 ML UDC PO SCH ×5 (00:04→23:23)
[2020-12-09] MEDS: ALBUTEROL SULFATE 2.5 MG/0.5 ML INH NEB SOLN NEB PRN ×6 (00:22→22:54)
[2020-12-09 06:00] VITALS: BP 120/54
[2020-12-09 07:16] VITALS: O2SAT 93
[2020-12-09] MEDS: ACETYLCYSTEINE 20% 4 ML VIAL (200MG/ML) INH SCH ×2 (07:16→19:58)
[2020-12-09] MEDS: ALBUTEROL SULFATE 2.5 MG/0.5 ML INH NEB SOLN NEB SCH ×4 (07:16→19:58)
[2020-12-09] MEDS: (RENVELA) SEVELAMER **CARBONate** 800 MG TAB PO SCH ×3 (08:00→18:18)
[2020-12-09 08:30] VITALS: BP 116/58
[2020-12-09] MEDS: SERTRALINE 100 MG TAB PO SCH (10:20)
[2020-12-09] MEDS: levETIRAcetam 250MG TABLET (KEPPRA) PO SCH (10:20)
[2020-12-09] MEDS: PANTOPRAZOLE 40MG TAB (PROTONIX) PO SCH (10:20)
[2020-12-09] MEDS: AMIODARONE 200 MG TAB (PACERONE) PO SCH (10:21)
[2020-12-09] MEDS: VITAMIN D 1,000 INTERNATIONAL UNITS TABLET PO SCH (10:21)
[2020-12-09] MEDS: BOUDREAUX'S BUTT PASTE TOP SCH ×2 (10:22→20:09)
[2020-12-09] MEDS: HEPARIN SOD (PORCINE) 5000UNITS/ML 1ML VIAL/SYRINGE SQ SCH ×2 (10:22→20:09)
[2020-12-09] MEDS: NYSTATIN 100,000 UNITS/GM TOPICAL PWD 15 GM TOP SCH (10:23)
[2020-12-09] MEDS: DIMETHICONE 2% OINTMENT(VANICREAM) 70GM TUBE TOP SCH ×2 (10:23→20:09)
[2020-12-09] MEDS: ONDANSETRON 4 MG TAB PO PRN (11:37)
[2020-12-09] MEDS: SENOKOT S TAB PO SCH (20:09)
[2020-12-09] MEDS: PRAMIPEXOLE (MIRAPEX) 0.125 MG TAB PO SCH (20:09)
[2020-12-09] MEDS: clonazePAM 0.5 MG TAB PO PRN (20:09)
[2020-12-09] MEDS: oxyCODONE 5MG TAB PO PRN (20:10)
[2020-12-10] MEDS: ALBUTEROL SULFATE 2.5 MG/0.5 ML INH NEB SOLN NEB PRN ×7 (01:32→23:26)
[2020-12-10] MEDS: guaiFENesin SYRUP 200 MG/10 ML UDC PO SCH ×3 (05:53→18:32)
[2020-12-10] MEDS: levETIRAcetam 250MG TABLET (KEPPRA) PO SCH (05:53)
[2020-12-10] MEDS: HEPARIN SOD (PORCINE) 5000UNITS/ML 1ML VIAL/SYRINGE SQ SCH ×2 (05:53→20:28)
[2020-12-10] MEDS: PANTOPRAZOLE 40MG TAB (PROTONIX) PO SCH (05:54)
[2020-12-10] MEDS: SERTRALINE 100 MG TAB PO SCH (05:54)
[2020-12-10] MEDS: VITAMIN D 1,000 INTERNATIONAL UNITS TABLET PO SCH (05:54)
[2020-12-10] MEDS: AMIODARONE 200 MG TAB (PACERONE) PO SCH (05:55)
[2020-12-10 06:00] VITALS: BP 102/46
[2020-12-10] MEDS: ALBUTEROL SULFATE 2.5 MG/0.5 ML INH NEB SOLN NEB SCH ×4 (07:12→19:58)
[2020-12-10] MEDS: ACETYLCYSTEINE 20% 4 ML VIAL (200MG/ML) INH SCH ×2 (07:13→19:58)
[2020-12-10] MEDS: (RENVELA) SEVELAMER **CARBONate** 800 MG TAB PO SCH ×3 (08:00→16:17)
[2020-12-10] MEDS: MIDODRINE 5 MG TAB PO SCH (08:20)
[2020-12-10] MEDS: DIMETHICONE 2% OINTMENT(VANICREAM) 70GM TUBE TOP SCH ×2 (08:23→20:30)
[2020-12-10] MEDS: NYSTATIN 100,000 UNITS/GM TOPICAL PWD 15 GM TOP SCH (08:23)
[2020-12-10] MEDS: BOUDREAUX'S BUTT PASTE TOP SCH ×2 (08:25→20:30)
[2020-12-10 09:11] LABS: HEMATOCRIT 35.5 % (42.0-52.0); HEMOGLOBIN 10.2 g/dl (13.5-17.5); MEAN CORPUSCULAR HEMOGLOBIN 30.6 pg (27.0-33.0); MEAN CORPUSCULAR HGB CONC 28.7 g/dl (32.0-36.5); MEAN CORPUSCULAR VOLUME 106.6 fl (80.0-96.0); PLATELET COUNT, AUTOMATED 150 10^3/uL (150-450); RED BLOOD COUNT 3.33 10^6/uL (4.30-6.10); WHITE BLOOD COUNT 5.9 10^3/uL (4.0-10.0)
[2020-12-10 09:33] LABS: ALBUMIN 2.8 GM/DL (3.2-5.2); BILIRUBIN,TOTAL 0.4 MG/DL (0.2-1.0); CALCIUM LEVEL 8.9 MG/DL (8.5-10.1); CREATININE FOR GFR 6.59 MG/DL (0.70-1.30); GLOMERULAR FILTRATION RATE 9.6 (>60); POTASSIUM SERUM 4.7 MEQ/L (3.5-5.1); TOTAL PROTEIN 6.4 GM/DL (6.4-8.2)
[2020-12-10] MEDS: CHLORASEPTIC SPRAY MT PRN ×2 (14:13→20:30)
--- NOTE | 2020-12-10 14:49 | IPN ---
NEPHROLOGY PROGRESS NOTE DATE: 12/10/2020 SUBJECTIVE: Mr. Richard is seen this morning during hemodialysis. He denies any new complaints. He remains on a trach collar. Chronic hypoxemia and dyspnea are unchanged. PHYSICAL EXAMINATION: VITAL SIGNS: Temperature is 97.0 degrees Fahrenheit, heart rate 60 per minute and respiratory rate 20 per minute. Blood pressure is 102/46 mm of mercury and oxygen saturation is 92% on 5 liters oxygen via trach collar. HEENT: His head is atraumatic. Tracheostomy is in place and oxygen is being provided via the trach collar. He has no other thrush or ulcers and has been edentulous. HEART: Regular. LUNGS: Symmetrical bilateral air entry. There are diminished breath sounds at the bases related to morbid obesity. ABDOMEN: Morbidly obese and nontender and bowel sounds are present. EXTREMITIES: Without any cyanosis or clubbing. Right arm AV fistula is currently being used. NEUROLOGICAL: He is bilaterally paraplegic due to severe spinal stenosis. LABORATORY STUDIES: Today's labs show a white blood cell count of 5.9, hemoglobin 10.2 and hematocrit 35.5. Sodium 139, potassium 4.7, CO2 28, BUN 55 and creatinine is 6.59. Calcium now is 8.9. PROBLEMS: 1. End-stage renal disease the patient is being dialyzed today and he is tolerating dialysis treatment well. I have decided to increase his dialysis time to four and a half hours to see if we can improve his hyperphosphatemia. 2. Respiratory failure, mostly related to obstructive sleep apnea, chronic obstructive pulmonary disease and obesity associated hypoventilation with hypercarbia his volume status is not significantly decompensated. We are trying to remove about 3.5 liters of fluid today. He already had the tracheostomy and remains on oxygen supplementation. 3. Anemia his anemia has been stable and we will continue with weekly dose of Aranesp. 4. Hyperphosphatemia - The patient has been noncompliant with phosphate binders and dietary restrictions. I have been informed that the patient is ordering food from the outside through [employer] and also been refusing to take his phosphate binder. I have discussed with him about the need for compliance with binders. We will also try to dialyze him for a longer period of time to see if we can correct his hyperphosphatemia.
[2020-12-10] MEDS: SENOKOT S TAB PO SCH (20:27)
[2020-12-10] MEDS: clonazePAM 0.5 MG TAB PO PRN (20:27)
[2020-12-10] MEDS: PRAMIPEXOLE (MIRAPEX) 0.125 MG TAB PO SCH (20:28)
[2020-12-10] MEDS: oxyCODONE 5MG TAB PO PRN (20:30)
[2020-12-11] MEDS: ACETAMINOPHEN TAB 650MG DOSE (2X325MG) PO PRN (00:27)
[2020-12-11] MEDS: ALBUTEROL SULFATE 2.5 MG/0.5 ML INH NEB SOLN NEB PRN ×4 (02:01→23:27)
[2020-12-11] MEDS: guaiFENesin SYRUP 200 MG/10 ML UDC PO SCH ×5 (05:45→18:00)
[2020-12-11] MEDS: clonazePAM 0.5 MG TAB PO PRN ×2 (06:50→22:23)
[2020-12-11] MEDS: oxyCODONE 5MG TAB PO PRN ×2 (06:51→15:20)
[2020-12-11] MEDS: ALBUTEROL SULFATE 2.5 MG/0.5 ML INH NEB SOLN NEB SCH ×4 (07:21→20:47)
[2020-12-11] MEDS: ACETYLCYSTEINE 20% 4 ML VIAL (200MG/ML) INH SCH ×2 (07:21→20:47)
[2020-12-11 08:00] VITALS: BP 144/63
[2020-12-11] MEDS: HEPARIN SOD (PORCINE) 5000UNITS/ML 1ML VIAL/SYRINGE SQ SCH ×2 (08:19→22:24)
[2020-12-11] MEDS: (RENVELA) SEVELAMER **CARBONate** 800 MG TAB PO SCH ×4 (08:19→18:00)
[2020-12-11] MEDS: levETIRAcetam 250MG TABLET (KEPPRA) PO SCH (08:20)
[2020-12-11] MEDS: AMIODARONE 200 MG TAB (PACERONE) PO SCH (08:20)
[2020-12-11] MEDS: PANTOPRAZOLE 40MG TAB (PROTONIX) PO SCH (08:20)
[2020-12-11] MEDS: SERTRALINE 100 MG TAB PO SCH (08:20)
[2020-12-11] MEDS: DIMETHICONE 2% OINTMENT(VANICREAM) 70GM TUBE TOP SCH ×2 (08:21→22:24)
[2020-12-11] MEDS: VITAMIN D 1,000 INTERNATIONAL UNITS TABLET PO SCH (08:21)
[2020-12-11] MEDS: BOUDREAUX'S BUTT PASTE TOP SCH ×2 (08:21→22:24)
[2020-12-11] MEDS: NYSTATIN 100,000 UNITS/GM TOPICAL PWD 15 GM TOP SCH (08:22)
[2020-12-11] MEDS: PRAMIPEXOLE (MIRAPEX) 0.125 MG TAB PO SCH (22:23)
[2020-12-11] MEDS: SENOKOT S TAB PO SCH (22:23)
[2020-12-12] MEDS: guaiFENesin SYRUP 200 MG/10 ML UDC PO SCH ×4 (01:49→18:12)
[2020-12-12] MEDS: ALBUTEROL SULFATE 2.5 MG/0.5 ML INH NEB SOLN NEB PRN ×4 (02:08→22:26)
[2020-12-12] MEDS: AMIODARONE 200 MG TAB (PACERONE) PO SCH (05:40)
[2020-12-12] MEDS: SERTRALINE 100 MG TAB PO SCH (05:40)
[2020-12-12] MEDS: VITAMIN D 1,000 INTERNATIONAL UNITS TABLET PO SCH (05:40)
[2020-12-12] MEDS: PANTOPRAZOLE 40MG TAB (PROTONIX) PO SCH (05:40)
[2020-12-12] MEDS: levETIRAcetam 250MG TABLET (KEPPRA) PO SCH (05:40)
[2020-12-12] MEDS: oxyCODONE 5MG TAB PO PRN ×2 (05:41→22:53)
[2020-12-12] MEDS: HEPARIN SOD (PORCINE) 5000UNITS/ML 1ML VIAL/SYRINGE SQ SCH ×2 (05:42→22:52)
[2020-12-12 06:00] VITALS: BP 140/62
[2020-12-12] MEDS: ALBUTEROL SULFATE 2.5 MG/0.5 ML INH NEB SOLN NEB SCH ×4 (06:26→19:00)
[2020-12-12] MEDS: ACETYLCYSTEINE 20% 4 ML VIAL (200MG/ML) INH SCH ×2 (06:26→19:00)
[2020-12-12] MEDS: MIDODRINE 5 MG TAB PO SCH (06:28)
[2020-12-12] MEDS: (RENVELA) SEVELAMER **CARBONate** 800 MG TAB PO SCH ×3 (06:59→18:12)
[2020-12-12] MEDS: DARBEPOETIN 200MCG/0.4ML *DIALYSIS* SYRINGE (J0882 PER 1MCG) IV SCH (08:17)
[2020-12-12] MEDS: BOUDREAUX'S BUTT PASTE TOP SCH ×2 (09:00→22:53)
[2020-12-12] MEDS: NYSTATIN 100,000 UNITS/GM TOPICAL PWD 15 GM TOP SCH (09:00)
[2020-12-12] MEDS: DIMETHICONE 2% OINTMENT(VANICREAM) 70GM TUBE TOP SCH ×2 (09:00→22:53)
--- NOTE | 2020-12-12 11:29 | IPN ---
PROGRESS NOTE DATE: 12/12/2020 SUBJECTIVE: Mr. Richard is seen this morning on his bedside during hemodialysis. He is feeling well and denies any new complaints. He remains on trach collar and denies any worsening dyspnea or chest pain. He has no fever or chills. Overall, his condition is stable at baseline. PHYSICAL EXAMINATION: Temperature 97.8 degrees Fahrenheit, heart rate 65 per minute, respiratory rate 16 per minute, blood pressure 140/62 mmHg at the start of dialysis and now he is down to 99/50 mmHg. HEAD: Atraumatic. NECK: Supple and jugular venous distention (JVD) is difficult to assess. Tracheostomy is in place. HEART SOUNDS: Regular. LUNGS: Good bilateral air entry, but diminished breath sounds due to morbid obesity. ABDOMEN: Obese and nontender. EXTREMITIES: Without any cyanosis or clubbing. He has paraplegia due to severe spinal stenosis and has been bedridden for a number of years. NEUROLOGIC: He is at his baseline mentation. LABORATORY DATA: Patient did not have any new labs today. PROBLEMS: 1. End-stage renal disease. Patient is regularly dialyzed on Wednesday, and Wednesday schedule. He is being dialyzed today and tolerating his dialysis very well. 2. Congestive heart failure. His volume status seems reasonably well-compensated and we are trying to remove about 3 liters of fluid today. He is tolerating it well so far. 3. Respiratory failure. Mostly related to obstructive sleep apnea, chronic obstructive pulmonary disease (COPD) and obesity associated hypoventilation. He remains on trach collar and at this point, he is stable and about baseline. 4. Anemia. His anemia has been stable and we will continue to monitor and manage with weekly dose of Aranesp. 5. Hypotension. Patient has chronic hypotension, for which he has been on midodrine and will continue with the same. DISPOSITION: Patient has been waiting for a halfway placement. He remains on alternate level of care (ALC) status.
[2020-12-12] MEDS: SENOKOT S TAB PO SCH (22:51)
[2020-12-12] MEDS: PRAMIPEXOLE (MIRAPEX) 0.125 MG TAB PO SCH (22:51)
[2020-12-13] MEDS: guaiFENesin SYRUP 200 MG/10 ML UDC PO SCH ×4 (01:29→18:01)
[2020-12-13] MEDS: ALBUTEROL SULFATE 2.5 MG/0.5 ML INH NEB SOLN NEB PRN ×5 (01:29→22:23)
[2020-12-13] MEDS: ACETAMINOPHEN TAB 650MG DOSE (2X325MG) PO PRN (04:04)
[2020-12-13 06:00] VITALS: BP 121/51
[2020-12-13] MEDS: ALBUTEROL SULFATE 2.5 MG/0.5 ML INH NEB SOLN NEB SCH ×4 (07:15→20:00)
[2020-12-13] MEDS: ACETYLCYSTEINE 20% 4 ML VIAL (200MG/ML) INH SCH ×2 (07:15→20:29)
[2020-12-13] MEDS: ADVAIR HFA 115/21MCG INHALER INH SCH ×2 (08:00→20:29)
[2020-12-13] MEDS: levETIRAcetam 250MG TABLET (KEPPRA) PO SCH (09:21)
[2020-12-13] MEDS: SERTRALINE 100 MG TAB PO SCH (09:21)
[2020-12-13] MEDS: NYSTATIN 100,000 UNITS/GM TOPICAL PWD 15 GM TOP SCH (09:21)
[2020-12-13] MEDS: BOUDREAUX'S BUTT PASTE TOP SCH ×2 (09:21→20:37)
[2020-12-13] MEDS: DIMETHICONE 2% OINTMENT(VANICREAM) 70GM TUBE TOP SCH ×2 (09:21→20:36)
[2020-12-13] MEDS: VITAMIN D 1,000 INTERNATIONAL UNITS TABLET PO SCH (09:21)
[2020-12-13] MEDS: AMIODARONE 200 MG TAB (PACERONE) PO SCH (09:22)
[2020-12-13] MEDS: (RENVELA) SEVELAMER **CARBONate** 800 MG TAB PO SCH ×3 (09:22→18:01)
[2020-12-13] MEDS: HEPARIN SOD (PORCINE) 5000UNITS/ML 1ML VIAL/SYRINGE SQ SCH ×2 (09:22→20:35)
[2020-12-13] MEDS: PANTOPRAZOLE 40MG TAB (PROTONIX) PO SCH (09:22)
[2020-12-13 12:55] LABS: ABG BASE EXCESS -3.7 (-2.0-2.0); ABG HCO3 24.7 MEQ/L (22.0-26.0); ABG O2 SATURATION 94.2 % (95.0-99.0); ABG PARTIAL PRESSURE O2 76.4 mmHg (75.0-100.0); ABG STANDARD HCO3 21.3 MEQ/L (22.0-26.0); ABG TOTAL CO2 26.6 MEQ/L (22.0-29.0)
[2020-12-13 13:00] LABS: ABG pH (ARTERIAL) 7.219 UNITS (7.350-7.450)
[2020-12-13 13:01] LABS: ABG PARTIAL PRESSURE CO2 61.9 mmHg (35.0-45.0)
--- NOTE | 2020-12-13 13:15 | REP ---
INDICATION: dyspnea. COMPARISON: Comparison chest x-ray 28 October 2020. TECHNIQUE: Portable upright AP chest radiograph. FINDINGS: Tracheostomy tube remains in good position. Mild cardiomegaly is observed unchanged. Pulmonary vasculature is cephalized and congested in appearance unchanged from the 28 October 2020 study. There is minimal linear fibrosis in the right base. No new infiltrate is seen. No pleural effusion noted.. IMPRESSION: Cardiomegaly. Cephalization and vascular congestion. No evidence of pulmonary edema or pleural effusion. No focal infiltrate. Tracheostomy tube in good position.. <Electronically signed by Cornell Vo > 12/13/20 1316
[2020-12-13] MEDS: IPRATROPIUM 0.5MG/ALBUTEROL 2.5MG INH SOL UD 3ML (DUONEB) NEB SCH ×2 (14:00→20:29)
[2020-12-13] MEDS ORDERED: predniSONE 20 MG TAB PO ONE (14:00)
[2020-12-13 14:06] LABS: BASO % 0.7 % (0.0-1.0); EOS # 0.4 10^3/uL (0.0-0.5); EOS % 6.3 % (0.0-3.0); HEMATOCRIT 36.2 % (42.0-52.0); HEMOGLOBIN 10.3 g/dl (13.5-17.5); LYMPH # 1.2 10^3/uL (1.5-5.0); LYMPH % 21.2 % (24.0-44.0); MEAN CORPUSCULAR HEMOGLOBIN 30.2 pg (27.0-33.0); MEAN CORPUSCULAR HGB CONC 28.5 g/dl (32.0-36.5); MEAN CORPUSCULAR VOLUME 106.2 fl (80.0-96.0); MONO # 0.3 10^3/uL (0.0-0.8); NEUTROPHILS # 3.6 10^3/uL (1.5-8.5); NEUTROPHILS % 64.5 % (36.0-66.0); PLATELET COUNT, AUTOMATED 134 10^3/uL (150-450); RED BLOOD COUNT 3.41 10^6/uL (4.30-6.10); WHITE BLOOD COUNT 5.5 10^3/uL (4.0-10.0)
[2020-12-13 14:41] LABS: ALBUMIN 2.9 GM/DL (3.2-5.2); BILIRUBIN,TOTAL 0.3 MG/DL (0.2-1.0); CALCIUM LEVEL 9.2 MG/DL (8.5-10.1); CREATININE FOR GFR 4.51 MG/DL (0.70-1.30); GLOMERULAR FILTRATION RATE 14.9 (>60); POTASSIUM SERUM 4.6 MEQ/L (3.5-5.1); TOTAL PROTEIN 6.7 GM/DL (6.4-8.2)
--- NOTE | 2020-12-13 19:19 | IPNPDOC ---
Text Note Date of Service The patient was seen on 12/13/20. NOTE Subjective: Patient complains of increased shortness of breath with increased secretion requiring multiple suctions. GENERAL: Morbidly obese male. HEAD/NECK: PERRLA, EOMI CARDIOVASCULAR: S1, S2 RESPIRATORY: Diminished lung sounds bilaterally ABDOMEN: Obese, positive bowel sounds, nontender. No organomegaly. MUSCULOSKELETAL: Decreased range of movement of lower extremities because he is chronically bedridden. RADIOLOGIC ELECTRONIC SPECIALIST: No focal deficit. Awake. Assessment and plan 50 year old male with multiple comorbidities including ESRD on hemodialysis, currently ALC status pending placement to long term facility Chronic respiratory failure with hypoxia and hypercarbia/ HCAP secondary to restrictive lung disease from his obesity, obesity hypoventilation. Chronically has tracheostomy Patient developed increased shortness of breath on 12/13/20, ABG showed pH 7.2 with CO2 level 62. Dr Baer rec sputum Cx and start prednisone. There is concern for a COPD exacerbation or pneumonia. X-ray did not reveal acute infiltrate. Procalcitonin 2.6. I started antibiotics Continue inhalers HCAP See above Morbid obesity/ NISA Complicated care Severe spinal stenosis chronic pain on oxycodone prn ESRD on hemodialysis GERD PPI Depression/ Anxiety on sertraline, clonazepam. Paroxysmal Atrial fibrillation on amiodarone Seizure disorder on keppra Hypotension. C/w midodrine on dialysis days. Anemia. Stable, monitor and transfuse if indicated. hemoglobin level is optimal Was receiving Aranesp 100 mcg once a week with dialysis until recently Chronically bedridden. 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 VS,Fishbone, I+O VS, Fishbone, I+O Laboratory Tests 12/13/20 13:54 Vital Signs Date Time Temp Pulse Resp B/P (MAP) Pulse Ox O2 Delivery O2 Flow Rate FiO2 12/13/20 09:00 5.0 28 12/13/20 06:00 97.5 77 18 121/51 (74) 98 Trach Collar I&O- Last 24 Hours up to 6 AM 12/13/20 06:00 Intake Total 650 ml Output Total 2600 ml Balance -1950 ml SANTY DUGAN DO Dec 13, 2020 19:19
[2020-12-13] MEDS: clonazePAM 0.5 MG TAB PO PRN (20:35)
[2020-12-13] MEDS: SENOKOT S TAB PO SCH (20:35)
[2020-12-13] MEDS: PRAMIPEXOLE (MIRAPEX) 0.125 MG TAB PO SCH (20:36)
[2020-12-13] MEDS: oxyCODONE 5MG TAB PO PRN (20:38)
[2020-12-13] MEDS ORDERED: cefTRIAXone SOD 2 GM in D5W MINI-BAG PLUS 50 ML IV SCH (21:00)
[2020-12-13 22:00] VITALS: BP 175/84
[2020-12-13] MEDS ORDERED: AZITHROMYCIN INJ 500 MG, VIAL MATE ADAPTER 1 EACH in D5W 250 ML IV SCH (22:00)
[2020-12-14] MEDS: guaiFENesin SYRUP 200 MG/10 ML UDC PO SCH ×4 (00:45→17:56)
[2020-12-14] MEDS: ALBUTEROL SULFATE 2.5 MG/0.5 ML INH NEB SOLN NEB PRN ×4 (00:45→22:22)
[2020-12-14] MEDS: IPRATROPIUM 0.5MG/ALBUTEROL 2.5MG INH SOL UD 3ML (DUONEB) NEB SCH ×4 (01:36→19:23)
[2020-12-14 04:10] VITALS: BP 117/80
[2020-12-14 05:35] LABS: HEMATOCRIT 35.6 % (42.0-52.0); HEMOGLOBIN 10.3 g/dl (13.5-17.5); MEAN CORPUSCULAR HEMOGLOBIN 30.3 pg (27.0-33.0); MEAN CORPUSCULAR HGB CONC 28.9 g/dl (32.0-36.5); MEAN CORPUSCULAR VOLUME 104.7 fl (80.0-96.0); PLATELET COUNT, AUTOMATED 143 10^3/uL (150-450); WHITE BLOOD COUNT 6.1 10^3/uL (4.0-10.0)
[2020-12-14 06:00] VITALS: BP 121/77
[2020-12-14 06:07] LABS: ALBUMIN 2.8 GM/DL (3.2-5.2); CALCIUM LEVEL 8.8 MG/DL (8.5-10.1); CREATININE FOR GFR 5.5 MG/DL (0.70-1.30); GLOMERULAR FILTRATION RATE 11.9 (>60); MAGNESIUM LEVEL 2.4 MG/DL (1.8-2.4); PHOSPHORUS LEVEL 5.8 MG/DL (2.5-4.9); POTASSIUM SERUM 5.1 MEQ/L (3.5-5.1)
[2020-12-14] MEDS: VITAMIN D 1,000 INTERNATIONAL UNITS TABLET PO SCH (06:19)
[2020-12-14] MEDS: SERTRALINE 100 MG TAB PO SCH (06:19)
[2020-12-14] MEDS: PANTOPRAZOLE 40MG TAB (PROTONIX) PO SCH (06:19)
[2020-12-14] MEDS: HEPARIN SOD (PORCINE) 5000UNITS/ML 1ML VIAL/SYRINGE SQ SCH ×2 (06:19→20:38)
[2020-12-14] MEDS: AMIODARONE 200 MG TAB (PACERONE) PO SCH (06:20)
[2020-12-14] MEDS: NYSTATIN 100,000 UNITS/GM TOPICAL PWD 15 GM TOP SCH (06:20)
[2020-12-14] MEDS: BOUDREAUX'S BUTT PASTE TOP SCH ×2 (06:20→20:38)
[2020-12-14] MEDS: levETIRAcetam 250MG TABLET (KEPPRA) PO SCH (06:20)
[2020-12-14] MEDS: DIMETHICONE 2% OINTMENT(VANICREAM) 70GM TUBE TOP SCH ×2 (06:21→20:38)
[2020-12-14] MEDS ORDERED: SODIUM CHLORIDE 0.9% 1000ML IV PRN (07:00)
[2020-12-14] MEDS ORDERED: LIDOCAINE 1% SDV 5ML VIAL SC PRN (07:00)
[2020-12-14] MEDS: (RENVELA) SEVELAMER **CARBONate** 800 MG TAB PO SCH ×3 (08:00→17:56)
[2020-12-14] MEDS: ALBUTEROL SULFATE 2.5 MG/0.5 ML INH NEB SOLN NEB SCH ×4 (08:00→19:25)
[2020-12-14] MEDS: MIDODRINE 5 MG TAB PO SCH (08:04)
[2020-12-14] MEDS: predniSONE 20 MG TAB PO SCH (08:04)
[2020-12-14] MEDS: ADVAIR HFA 115/21MCG INHALER INH SCH ×2 (08:55→19:24)
[2020-12-14] MEDS: ACETYLCYSTEINE 20% 4 ML VIAL (200MG/ML) INH SCH ×2 (08:55→19:23)
[2020-12-14] MEDS ORDERED: VANCOMYCIN HCL 1,000 MG, VIAL MATE ADAPTER 1 EACH in D5W 250 ML IV SCH (12:00)
[2020-12-14] MEDS ORDERED: PIPERACILLIN/TAZOBACTAM SOD 3.375 GM in D5W MINI-BAG PLUS 50 ML IV SCH (12:15)
--- NOTE | 2020-12-14 12:58 | IPN ---
PROGRESS NOTE DATE: 12/14/2020 SUBJECTIVE: Patient was seen and examined at the bedside today morning during hemodialysis procedure. He is tolerating the hemodialysis procedure well. He denies any active complaints. OBJECTIVE: Vital signs: Temperature 98.3 degrees Fahrenheit, blood pressure 121/77, pulse is 79, respiratory rate of 17, saturating 98% on trach collar. Intake and output: There is no urine output recorded. Weight in the bed scale is not available. PHYSICAL EXAMINATION: GENERAL: Patient is awake, alert, oriented times three, morbidly obese, lying in bed. HEAD AND NECK: Extraocular muscles intact. Pupils equally round and reactive to light. Mucous membranes are moist. Neck is supple. He has a trach collar. CARDIOVASCULAR: S1, S2, regular rate. Edema 2+ of the bilateral thighs. RESPIRATORY: Chest is clear to auscultation bilaterally. He is dependent on the trach. ABDOMEN: Soft, obese. Positive bowel sounds. Nontender. No organomegaly. MUSCULOSKELETAL: He has decreased range of movement of the bilateral lower extremities because he is chronically bed-ridden. CENTRAL NERVOUS SYSTEM: Bilateral upper extremities have 5+ power. He is able to communicate when he is awake. LABORATORY REVIEW: CBC showed a WBC of 6.1, hemoglobin 10.3, platelets are 143. BMP showed sodium 140, potassium 5.1, chloride 106, bicarbonate 23, BUN 45, creatinine 5.5, phosphorus is 5.8. Albumin is 2.8. CURRENT INPATIENT MEDICATIONS: Patient's medications were all reviewed by myself. There is no significant change in the medications today. ASSESSMENT AND PLAN: 1. End-stage renal disease. Patient is being dialyzed according to his regular schedule. Ultrafiltration goal will be around 3-3.5 liters as tolerated by his blood pressure. 2. Anemia and end-stage renal disease. Hemoglobin is optimized with current dose of Aranesp. 3. 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 Patient is very noncompliant with his phosphorus binders; however, phosphorus is less than 6 at this time, which is acceptable for now. 4. Hypotension. Patient gets midodrine before dialysis. Blood pressures are acceptable. 5. Chronic hypoxic and hypercapnic respiratory failure. He is on trach collar. Recently has been started again on prednisone and antibiotics, and cultures were sent.
[2020-12-14 14:00] VITALS: BP 150/81
[2020-12-14] MEDS: PIPERACILLIN/TAZOBACTAM SOD 2.25 GM in D5W MINI-BAG PLUS 50 ML IV SCH (17:55)
[2020-12-14] MEDS ORDERED: VANCOMYCIN HCL 1,000 MG, VIAL MATE ADAPTER 1 EACH in D5W 250 ML IV ONE ×2 (18:00→19:00)
[2020-12-14 19:25] VITALS: O2SAT 93
[2020-12-14] MEDS: SENOKOT S TAB PO SCH (20:37)
[2020-12-14] MEDS: PRAMIPEXOLE (MIRAPEX) 0.125 MG TAB PO SCH (20:37)
[2020-12-14] MEDS: clonazePAM 0.5 MG TAB PO PRN (20:37)
[2020-12-14] MEDS: oxyCODONE 5MG TAB PO PRN (20:37)
[2020-12-14 22:00] VITALS: BP 146/59
[2020-12-15] MEDS: guaiFENesin SYRUP 200 MG/10 ML UDC PO SCH ×4 (00:27→18:44)
[2020-12-15] MEDS: ALBUTEROL SULFATE 2.5 MG/0.5 ML INH NEB SOLN NEB PRN ×4 (00:27→21:16)
[2020-12-15] MEDS: PIPERACILLIN/TAZOBACTAM SOD 2.25 GM in D5W MINI-BAG PLUS 50 ML IV SCH ×3 (00:28→18:44)
[2020-12-15] MEDS: IPRATROPIUM 0.5MG/ALBUTEROL 2.5MG INH SOL UD 3ML (DUONEB) NEB SCH ×4 (01:43→19:16)
[2020-12-15 06:00] VITALS: BP 147/58
[2020-12-15 07:06] LABS: CALCIUM LEVEL 9.5 MG/DL (8.5-10.1); CREATININE FOR GFR 4.28 MG/DL (0.70-1.30); GLOMERULAR FILTRATION RATE 15.9 (>60); MAGNESIUM LEVEL 2.2 MG/DL (1.8-2.4); POTASSIUM SERUM 3.4 MEQ/L (3.5-5.1)
[2020-12-15] MEDS: ALBUTEROL SULFATE 2.5 MG/0.5 ML INH NEB SOLN NEB SCH ×4 (08:00→19:17)
--- NOTE | 2020-12-15 08:42 | IPNPDOC ---
Text Note Date of Service The patient was seen on 12/14/20. NOTE Subjective: No any acute events overnight. Patient denied fever, chills, nausea, vomiting, chest pain or palpitations GENERAL: Morbidly obese male. HEAD/NECK: PERRLA, EOMI CARDIOVASCULAR: S1, S2 RESPIRATORY: Diminished lung sounds bilaterally ABDOMEN: Obese, positive bowel sounds, nontender. No organomegaly. MUSCULOSKELETAL: Decreased range of movement of lower extremities because he is chronically bedridden. OIL EXPELLER: No focal deficit. Awake. Assessment and plan 50 year old male with multiple comorbidities including ESRD on hemodialysis, currently ALC status pending placement to custodial facility Chronic respiratory failure with hypoxia and hypercarbia/ HCAP secondary to restrictive lung disease from his obesity, obesity hypoventilation. Chronically has tracheostomy Patient developed increased shortness of breath on 12/13/20, ABG showed pH 7.2 with CO2 level 62. Dr Baer rec sputum Cx and start prednisone. There is concern for a COPD exacerbation or pneumonia. X-ray did not reveal acute infiltrate. Procalcitonin 2.6. I started antibiotics vancomycin IV and Zosyn IV. Patient had history of MRSA and pseudomonas colonization. Continue inhalers HCAP See above Morbid obesity/ NISA Complicated care Severe spinal stenosis chronic pain on oxycodone prn ESRD on hemodialysis GERD PPI Depression/ Anxiety on sertraline, clonazepam. Paroxysmal Atrial fibrillation on amiodarone Seizure disorder on keppra Hypotension. C/w midodrine on dialysis days. Anemia. Stable, monitor and transfuse if indicated. hemoglobin level is optimal Was receiving Aranesp 100 mcg once a week with dialysis until recently Chronically bedridden. 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 VS,Fishbone, I+O VS, Fishbone, I+O Laboratory Tests 12/15/20 05:55 Vital Signs Date Time Temp Pulse Resp B/P (MAP) Pulse Ox O2 Delivery O2 Flow Rate FiO2 12/15/20 06:00 96.9 74 18 147/58 (87) 97 Trach Collar 5.0 28 I&O- Last 24 Hours up to 6 AM 12/15/20 06:00 Intake Total 700 ml Output Total 3500 ml Balance -2800 ml SANTY DUGAN DO Dec 15, 2020 08:42
[2020-12-15] MEDS: ADVAIR HFA 115/21MCG INHALER INH SCH ×2 (08:50→19:16)
[2020-12-15] MEDS: (RENVELA) SEVELAMER **CARBONate** 800 MG TAB PO SCH ×3 (10:23→18:44)
[2020-12-15] MEDS: DIMETHICONE 2% OINTMENT(VANICREAM) 70GM TUBE TOP SCH ×2 (10:24→21:14)
[2020-12-15] MEDS: HEPARIN SOD (PORCINE) 5000UNITS/ML 1ML VIAL/SYRINGE SQ SCH ×2 (10:24→21:14)
[2020-12-15] MEDS: NYSTATIN 100,000 UNITS/GM TOPICAL PWD 15 GM TOP SCH (10:25)
[2020-12-15] MEDS: BOUDREAUX'S BUTT PASTE TOP SCH ×2 (10:25→21:15)
[2020-12-15] MEDS: PANTOPRAZOLE 40MG TAB (PROTONIX) PO SCH (10:25)
[2020-12-15] MEDS: SERTRALINE 100 MG TAB PO SCH (10:25)
[2020-12-15] MEDS: levETIRAcetam 250MG TABLET (KEPPRA) PO SCH (10:26)
[2020-12-15] MEDS: VITAMIN D 1,000 INTERNATIONAL UNITS TABLET PO SCH (10:26)
[2020-12-15] MEDS: predniSONE 20 MG TAB PO SCH (10:26)
[2020-12-15] MEDS: AMIODARONE 200 MG TAB (PACERONE) PO SCH (10:26)
--- NOTE | 2020-12-15 10:57 | IPNPDOC ---
Text Note Date of Service The patient was seen on 12/15/20. NOTE Subjective: No any acute events overnight. GENERAL: Morbidly obese male. HEAD/NECK: PERRLA, EOMI CARDIOVASCULAR: S1, S2 RESPIRATORY: Diminished lung sounds bilaterally ABDOMEN: Obese, positive bowel sounds, nontender. No organomegaly. MUSCULOSKELETAL: Decreased range of movement of lower extremities because he is chronically bedridden. COMMERCIAL LAWN SPECIALIST: No focal deficit. Awake. Assessment and plan 50 year old male with multiple comorbidities including ESRD on hemodialysis, currently ALC status pending placement to custodial facility Chronic respiratory failure with hypoxia and hypercarbia/ HCAP secondary to restrictive lung disease from his obesity, obesity hypoventilation. Chronically has tracheostomy Patient developed increased shortness of breath on 12/14/20, ABG showed pH 7.2 with CO2 level 62. Dr Baer rec sputum Cx and start prednisone. There is concer n for a COPD exacerbation or pneumonia. X-ray did not reveal acute infiltrate. Procalcitonin 2.6. I started antibiotics vancomycin IV and Zosyn IV. Patient had history of MRSA and pseudomonas colonization. Continue inhalers HCAP See above Morbid obesity/ NISA Complicated care Severe spinal stenosis chronic pain on oxycodone prn ESRD on hemodialysis GERD PPI Depression/ Anxiety on sertraline, clonazepam. Paroxysmal Atrial fibrillation on amiodarone Seizure disorder on keppra Hypotension. C/w midodrine on dialysis days. Anemia. Stable, monitor and transfuse if indicated. hemoglobin level is optimal Was receiving Aranesp 100 mcg once a week with dialysis until recently Chronically bedridden. 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 VS,Fishbone, I+O VS, Fishbone, I+O Laboratory Tests 12/15/20 05:55 Vital Signs Date Time Temp Pulse Resp B/P (MAP) Pulse Ox O2 Delivery O2 Flow Rate FiO2 12/15/20 06:00 96.9 74 18 147/58 (87) 97 Trach Collar 5.0 28 I&O- Last 24 Hours up to 6 AM 12/15/20 06:00 Intake Total 700 ml Output Total 3500 ml Balance -2800 ml SANTY DUGAN DO Dec 15, 2020 10:57
[2020-12-15 14:00] VITALS: BP 149/74
[2020-12-15 19:18] VITALS: O2SAT 93
[2020-12-15] MEDS: clonazePAM 0.5 MG TAB PO PRN (21:13)
[2020-12-15] MEDS: SENOKOT S TAB PO SCH (21:14)
[2020-12-15] MEDS: PRAMIPEXOLE (MIRAPEX) 0.125 MG TAB PO SCH (21:14)
[2020-12-15] MEDS: oxyCODONE 5MG TAB PO PRN (21:15)
[2020-12-16] MEDS: guaiFENesin SYRUP 200 MG/10 ML UDC PO SCH ×5 (00:02→23:14)
[2020-12-16] MEDS: PIPERACILLIN/TAZOBACTAM SOD 2.25 GM in D5W MINI-BAG PLUS 50 ML IV SCH ×3 (00:02→17:19)
[2020-12-16] MEDS: IPRATROPIUM 0.5MG/ALBUTEROL 2.5MG INH SOL UD 3ML (DUONEB) NEB SCH ×4 (00:03→19:41)
[2020-12-16] MEDS: ALBUTEROL SULFATE 2.5 MG/0.5 ML INH NEB SOLN NEB PRN ×3 (02:12→21:48)
[2020-12-16 06:00] VITALS: BP 118/51
[2020-12-16 06:39] LABS: CALCIUM LEVEL 8.8 MG/DL (8.5-10.1); CREATININE FOR GFR 5.44 MG/DL (0.70-1.30); MAGNESIUM LEVEL 2.3 MG/DL (1.8-2.4); POTASSIUM SERUM 4.1 MEQ/L (3.5-5.1)
[2020-12-16] MEDS: ADVAIR HFA 115/21MCG INHALER INH SCH ×2 (07:41→19:41)
[2020-12-16] MEDS: ALBUTEROL SULFATE 2.5 MG/0.5 ML INH NEB SOLN NEB SCH ×4 (08:00→17:32)
[2020-12-16] MEDS: HEPARIN SOD (PORCINE) 5000UNITS/ML 1ML VIAL/SYRINGE SQ SCH ×2 (08:46→21:35)
[2020-12-16] MEDS: SERTRALINE 100 MG TAB PO SCH (08:47)
[2020-12-16] MEDS: PANTOPRAZOLE 40MG TAB (PROTONIX) PO SCH (08:47)
[2020-12-16] MEDS: predniSONE 20 MG TAB PO SCH (08:47)
[2020-12-16] MEDS: levETIRAcetam 250MG TABLET (KEPPRA) PO SCH (08:47)
[2020-12-16] MEDS: VITAMIN D 1,000 INTERNATIONAL UNITS TABLET PO SCH (08:47)
[2020-12-16] MEDS: (RENVELA) SEVELAMER **CARBONate** 800 MG TAB PO SCH ×3 (08:47→17:19)
[2020-12-16] MEDS: AMIODARONE 200 MG TAB (PACERONE) PO SCH (08:47)
[2020-12-16] MEDS: DIMETHICONE 2% OINTMENT(VANICREAM) 70GM TUBE TOP SCH ×2 (08:48→21:35)
[2020-12-16] MEDS: NYSTATIN 100,000 UNITS/GM TOPICAL PWD 15 GM TOP SCH (08:48)
[2020-12-16] MEDS: BOUDREAUX'S BUTT PASTE TOP SCH ×2 (08:48→21:35)
--- NOTE | 2020-12-16 11:35 | IPNPDOC ---
Text Note Date of Service The patient was seen on 12/16/20. NOTE Subjective: Patient stated that he is doing better today, breathing improved GENERAL: Morbidly obese male. HEAD/NECK: PERRLA, EOMI CARDIOVASCULAR: S1, S2 RESPIRATORY: Diminished lung sounds bilaterally ABDOMEN: Obese, positive bowel sounds, nontender. No organomegaly. MUSCULOSKELETAL: Decreased range of movement of lower extremities because he is chronically bedridden. MEDIA SALES EXECUTIVE: No focal deficit. Awake. Assessment and plan 50 year old male with multiple comorbidities including ESRD on hemodialysis Chronic respiratory failure with hypoxia and hypercarbia/ HCAP secondary to restrictive lung disease from his obesity, obesity hypoventilation. Chronically has tracheostomy Patient developed increased shortness of breath on 12/13/20, ABG showed pH 7.2 with CO2 level 62. Dr Baer rec sputum Cx and start prednisone. There is concern for a COPD exacerbation or pneumonia. X-ray did not reveal acute infiltrate. Procalcitonin 2.6. I started antibiotics vancomycin IV and Zosyn IV. Patient had history of MRSA and pseudomonas colonization. Sputum culture from 12/13/20 showed MRSA and pseudomonas aeruginosa Continue inhalers HCAP See above Morbid obesity/ NISA Complicated care Severe spinal stenosis chronic pain on oxycodone prn ESRD on hemodialysis GERD PPI Depression/ Anxiety on sertraline, clonazepam. Paroxysmal Atrial fibrillation on amiodarone Seizure disorder on keppra Hypotension. C/w midodrine on dialysis days. Anemia. Stable, monitor and transfuse if indicated. hemoglobin level is optimal Was receiving Aranesp 100 mcg once a week with dialysis until recently Chronically bedridden. Awaiting placement to snf Mineral bone disease Renvela and Velphoro dose Restless legs VS,Fishbone, I+O VS, Fishbone, I+O Laboratory Tests 12/16/20 06:01 Vital Signs Date Time Temp Pulse Resp B/P (MAP) Pulse Ox O2 Delivery O2 Flow Rate FiO2 12/16/20 11:10 18 12/16/20 06:00 97.1 76 118/51 (73) 95 12/15/20 21:15 Trach Collar 12/15/20 21:00 5.0 28 I&O- Last 24 Hours up to 6 AM 12/16/20 06:00 Intake Total 2100 ml Output Total 0 ml Balance 2100 ml SANTY DUGAN DO Dec 16, 2020 11:34
[2020-12-16 19:42] VITALS: O2SAT 94
[2020-12-16] MEDS: SENOKOT S TAB PO SCH (21:33)
[2020-12-16] MEDS: clonazePAM 0.5 MG TAB PO PRN (21:34)
[2020-12-16] MEDS: PRAMIPEXOLE (MIRAPEX) 0.125 MG TAB PO SCH (21:34)
[2020-12-16] MEDS: oxyCODONE 5MG TAB PO PRN (21:34)
[2020-12-17] MEDS: IPRATROPIUM 0.5MG/ALBUTEROL 2.5MG INH SOL UD 3ML (DUONEB) NEB SCH ×4 (00:11→17:49)
[2020-12-17] MEDS: PIPERACILLIN/TAZOBACTAM SOD 2.25 GM in D5W MINI-BAG PLUS 50 ML IV SCH ×3 (01:31→16:19)
[2020-12-17] MEDS: ALBUTEROL SULFATE 2.5 MG/0.5 ML INH NEB SOLN NEB PRN ×2 (03:21→06:12)
[2020-12-17 06:00] VITALS: BP 128/53
[2020-12-17] MEDS: predniSONE 20 MG TAB PO SCH (06:05)
[2020-12-17] MEDS: VITAMIN D 1,000 INTERNATIONAL UNITS TABLET PO SCH (06:06)
[2020-12-17] MEDS: PANTOPRAZOLE 40MG TAB (PROTONIX) PO SCH (06:06)
[2020-12-17] MEDS: SERTRALINE 100 MG TAB PO SCH (06:06)
[2020-12-17] MEDS: levETIRAcetam 250MG TABLET (KEPPRA) PO SCH (06:07)
[2020-12-17] MEDS: guaiFENesin SYRUP 200 MG/10 ML UDC PO SCH ×3 (06:07→17:05)
[2020-12-17] MEDS: AMIODARONE 200 MG TAB (PACERONE) PO SCH (06:11)
[2020-12-17] MEDS ORDERED: LIDOCAINE 1% SDV 5ML VIAL SC PRN (07:00)
[2020-12-17 07:31] VITALS: O2SAT 98
[2020-12-17] MEDS: ADVAIR HFA 115/21MCG INHALER INH SCH ×2 (07:31→22:00)
[2020-12-17] MEDS: ALBUTEROL SULFATE 2.5 MG/0.5 ML INH NEB SOLN NEB SCH ×4 (07:31→22:00)
[2020-12-17 07:35] LABS: CALCIUM LEVEL 8.9 MG/DL (8.5-10.1); CREATININE FOR GFR 6.55 MG/DL (0.70-1.30); GLOMERULAR FILTRATION RATE 9.7 (>60); MAGNESIUM LEVEL 2.6 MG/DL (1.8-2.4); POTASSIUM SERUM 5.1 MEQ/L (3.5-5.1)
[2020-12-17] MEDS: (RENVELA) SEVELAMER **CARBONate** 800 MG TAB PO SCH ×3 (07:50→17:05)
[2020-12-17] MEDS: MIDODRINE 5 MG TAB PO SCH (07:51)
[2020-12-17] MEDS: HEPARIN SOD (PORCINE) 5000UNITS/ML 1ML VIAL/SYRINGE SQ SCH ×2 (07:52→21:20)
[2020-12-17] MEDS: NYSTATIN 100,000 UNITS/GM TOPICAL PWD 15 GM TOP SCH (07:52)
[2020-12-17] MEDS: BOUDREAUX'S BUTT PASTE TOP SCH ×2 (07:52→21:21)
[2020-12-17] MEDS: DIMETHICONE 2% OINTMENT(VANICREAM) 70GM TUBE TOP SCH ×2 (07:53→21:21)
[2020-12-17] MEDS ORDERED: VANCOMYCIN HCL 1,000 MG, VIAL MATE ADAPTER 1 EACH in D5W 250 ML IV SCH (09:00)
--- NOTE | 2020-12-17 12:25 | IPN ---
PROGRESS NOTE DATE: 12/17/2020 SUBJECTIVE: The patient was seen and examined at the bedside today morning during hemodialysis. He is tolerating the hemodialysis procedure well. He denies any active complaints at this time. OBJECTIVE: VITAL SIGNS: Temperature is 97.6 degrees Fahrenheit, blood pressure is 128/53, pulse is 72, respiratory rate is 19, saturating 98% on the trach collar. INTAKE AND OUTPUT: There is no urine output recorded. Weight on the bed scale is not available. GENERAL: Patient is awake, alert and oriented x3, morbidly obese, laying in bed getting hemodialysis done. HEAD AND NECK: Extraocular muscles intact. Pupils equally round and reactive to light. Neck is supple. He has a trach collar. CARDIOVASCULAR: S1 and S2, regular rate, 1+ edema of the bilateral thighs. RESPIRATORY: Clear to auscultation bilaterally. He is dependent on the trach collar. ABDOMEN: Obese, positive bowel sounds, nontender. No organomegaly. MUSCULOSKELETAL: Decreased range of motion of the bilateral lower extremities. BEAM PRESS OPERATOR: Patient is awake and alert, able to communicate and moves bilateral upper extremities. LABORATORY DATA: CBC showed a WBC of 6.1 and hemoglobin 10.3, and that is from December 14. BMP done today showed a sodium of 137, potassium 5.1, chloride 101, bicarbonate 24, BUN 68, creatinine is 6.5. CURRENT INPATIENT MEDICATIONS: The patient's medications were all reviewed by myself. He continues to be on IV Zosyn and IV Vancomycin, and prednisone. No other significant change in the medications today. ASSESSMENT AND PLAN: 1. Endstage renal disease. Patient is being dialyzed, ultrafiltration goal is around 3 to 3.5 kg as tolerated by his blood pressure. 2. Anemia and endstage renal disease. Continue Aranesp. Hemoglobin is stable. 3. Chronic kidney disease mineral bone disease. Patient is noncompliant with binders. Continue current dose. 4. Chronic hypotension. Blood pressure is controlled with Midodrine. 5. Chronic hypoxic and hypercapnic respiratory failure. Patient continues to be on Zosyn and Vancomycin. He is on daily prednisone. Dose adjustment is as per medical team. Cultures from December 13 are growing Staph aureus and pseudomonas aeruginosa, and both of them are being covered with the current antibiotics.
[2020-12-17 14:00] VITALS: BP 153/63
[2020-12-17] MEDS: **VANCO AFTER HD** MISC XX SCH (16:00)
[2020-12-17] MEDS: PRAMIPEXOLE (MIRAPEX) 0.125 MG TAB PO SCH (21:19)
[2020-12-17] MEDS: clonazePAM 0.5 MG TAB PO PRN (21:19)
[2020-12-17] MEDS: SENOKOT S TAB PO SCH (21:19)
[2020-12-17] MEDS: oxyCODONE 5MG TAB PO PRN (21:20)
[2020-12-17 22:00] VITALS: BP 131/78
[2020-12-18] MEDS: guaiFENesin SYRUP 200 MG/10 ML UDC PO SCH ×5 (00:29→23:28)
[2020-12-18] MEDS: ALBUTEROL SULFATE 2.5 MG/0.5 ML INH NEB SOLN NEB PRN ×4 (00:29→22:47)
[2020-12-18] MEDS: PIPERACILLIN/TAZOBACTAM SOD 2.25 GM in D5W MINI-BAG PLUS 50 ML IV SCH ×3 (00:29→17:34)
[2020-12-18] MEDS: IPRATROPIUM 0.5MG/ALBUTEROL 2.5MG INH SOL UD 3ML (DUONEB) NEB SCH ×4 (01:22→20:37)
[2020-12-18 06:00] VITALS: BP 137/79
[2020-12-18 07:03] LABS: CALCIUM LEVEL 8.9 MG/DL (8.5-10.1); CREATININE FOR GFR 4.75 MG/DL (0.70-1.30); GLOMERULAR FILTRATION RATE 14.1 (>60); MAGNESIUM LEVEL 2.3 MG/DL (1.8-2.4); POTASSIUM SERUM 4.3 MEQ/L (3.5-5.1)
[2020-12-18] MEDS: ADVAIR HFA 115/21MCG INHALER INH SCH ×2 (07:37→20:37)
[2020-12-18] MEDS: ALBUTEROL SULFATE 2.5 MG/0.5 ML INH NEB SOLN NEB SCH ×4 (08:00→20:00)
[2020-12-18] MEDS: HEPARIN SOD (PORCINE) 5000UNITS/ML 1ML VIAL/SYRINGE SQ SCH ×2 (09:08→22:09)
[2020-12-18] MEDS: VITAMIN D 1,000 INTERNATIONAL UNITS TABLET PO SCH (09:09)
[2020-12-18] MEDS: (RENVELA) SEVELAMER **CARBONate** 800 MG TAB PO SCH ×3 (09:09→17:34)
[2020-12-18] MEDS: SERTRALINE 100 MG TAB PO SCH (09:09)
[2020-12-18] MEDS: levETIRAcetam 250MG TABLET (KEPPRA) PO SCH (09:10)
[2020-12-18] MEDS: oxyCODONE 5MG TAB PO PRN ×2 (09:10→22:10)
[2020-12-18] MEDS: PANTOPRAZOLE 40MG TAB (PROTONIX) PO SCH (09:10)
[2020-12-18] MEDS: AMIODARONE 200 MG TAB (PACERONE) PO SCH (09:10)
[2020-12-18] MEDS: predniSONE 20 MG TAB PO SCH (09:10)
[2020-12-18] MEDS: NYSTATIN 100,000 UNITS/GM TOPICAL PWD 15 GM TOP SCH (09:11)
[2020-12-18] MEDS: BOUDREAUX'S BUTT PASTE TOP SCH ×2 (09:11→22:10)
[2020-12-18] MEDS: clonazePAM 0.5 MG TAB PO PRN ×2 (09:12→22:08)
[2020-12-18] MEDS: DIMETHICONE 2% OINTMENT(VANICREAM) 70GM TUBE TOP SCH ×2 (09:12→22:11)
[2020-12-18] MEDS ORDERED: VANCOMYCIN HCL 1,000 MG, VIAL MATE ADAPTER 1 EACH in D5W 250 ML IV ONE (13:00)
[2020-12-18 14:00] VITALS: BP 150/61
[2020-12-18] MEDS: **VANCO AFTER HD** MISC XX SCH (16:00)
[2020-12-18 22:00] VITALS: BP 156/69
[2020-12-18] MEDS: SENOKOT S TAB PO SCH (22:08)
[2020-12-18] MEDS: PRAMIPEXOLE (MIRAPEX) 0.125 MG TAB PO SCH (22:08)
[2020-12-19] MEDS: IPRATROPIUM 0.5MG/ALBUTEROL 2.5MG INH SOL UD 3ML (DUONEB) NEB SCH ×4 (01:02→19:57)
[2020-12-19] MEDS: PIPERACILLIN/TAZOBACTAM SOD 2.25 GM in D5W MINI-BAG PLUS 50 ML IV SCH ×3 (01:04→17:23)
[2020-12-19] MEDS: ALBUTEROL SULFATE 2.5 MG/0.5 ML INH NEB SOLN NEB PRN ×3 (04:03→23:50)
[2020-12-19] MEDS ORDERED: COVID IM PRN (05:00)
[2020-12-19] MEDS ORDERED: VACC MRNA IM PRN (05:00)
[2020-12-19 06:00] VITALS: BP 129/50
[2020-12-19] MEDS: clonazePAM 0.5 MG TAB PO PRN ×2 (06:36→21:06)
[2020-12-19] MEDS: SERTRALINE 100 MG TAB PO SCH (06:37)
[2020-12-19] MEDS: oxyCODONE 5MG TAB PO PRN ×2 (06:37→21:06)
[2020-12-19] MEDS: AMIODARONE 200 MG TAB (PACERONE) PO SCH (06:37)
[2020-12-19] MEDS: PANTOPRAZOLE 40MG TAB (PROTONIX) PO SCH (06:37)
[2020-12-19] MEDS: predniSONE 20 MG TAB PO SCH (06:37)
[2020-12-19] MEDS: VITAMIN D 1,000 INTERNATIONAL UNITS TABLET PO SCH (06:38)
[2020-12-19] MEDS: levETIRAcetam 250MG TABLET (KEPPRA) PO SCH (06:38)
[2020-12-19] MEDS: guaiFENesin SYRUP 200 MG/10 ML UDC PO SCH ×3 (06:38→18:00)
[2020-12-19] MEDS: (RENVELA) SEVELAMER **CARBONate** 800 MG TAB PO SCH ×3 (06:38→18:00)
[2020-12-19] MEDS ORDERED: LIDOCAINE 1% SDV 5ML VIAL SC PRN (07:00)
[2020-12-19 07:09] LABS: CALCIUM LEVEL 8.6 MG/DL (8.5-10.1); CREATININE FOR GFR 5.94 MG/DL (0.70-1.30); GLOMERULAR FILTRATION RATE 10.9 (>60); MAGNESIUM LEVEL 2.5 MG/DL (1.8-2.4); POTASSIUM SERUM 4.3 MEQ/L (3.5-5.1)
[2020-12-19] MEDS: ALBUTEROL SULFATE 2.5 MG/0.5 ML INH NEB SOLN NEB SCH ×4 (07:18→20:00)
[2020-12-19] MEDS: ADVAIR HFA 115/21MCG INHALER INH SCH ×2 (07:18→19:56)
[2020-12-19] MEDS: MIDODRINE 5 MG TAB PO SCH (07:41)
[2020-12-19] MEDS: DARBEPOETIN 200MCG/0.4ML *DIALYSIS* SYRINGE (J0882 PER 1MCG) IV SCH (10:00)
--- NOTE | 2020-12-19 12:15 | IPN ---
PROGRESS NOTE DATE: 12/19/2020 SUBJECTIVE: Patient was seen and examined at the bedside today morning during hemodialysis procedure. He is tolerating hemodialysis procedure well. He denies any acute complaints at this time. OBJECTIVE: VITAL SIGNS: Temperature 97.8 degrees Fahrenheit, blood pressure 129/50, pulse 74, respiratory rate 19, saturating 97% on trach collar with 5 liters. INTAKE AND OUTPUT: There is no urine output recorded. Weight in the bed scale is not available. PHYSICAL EXAMINATION: GENERAL: Patient is awake, alert, oriented times three, morbidly obese, laying in bed getting hemodialysis done. HEAD AND NECK EXAM: Extraocular muscles intact. Pupils equally round and reactive to light. He has a trach collar. CARDIOVASCULAR: S1, S2. Regular rate. 2+ edema on the thighs was noted. RESPIRATORY: Chest is clear to auscultation bilaterally. Bilateral equal air entry. No rales or rhonchi. ABDOMEN: Soft. Obese. Positive bowel sounds. . MUSCULOSKELETAL: He has waffle boots on bilateral feet. Decreased range of movement of bilateral feet.. CENTRAL NERVOUS SYSTEM (SYSTEM ENGINEER): Power is 5/5 in all extremities. He is awake and able to communicate. LABORATORY REVIEW: CBC showed a WBC 6.1, hemoglobin 10.3 and that is from December 14, 2020. Today morning, BMP showed sodium 134, potassium 4.3, chloride 100, bicarbonate 27, BUN 53, creatinine 5.9, magnesium 2.5. CURRENT INPATIENT MEDICATIONS: Patient's medications were all reviewed by myself. He continues to be on intravenous (IV) vancomycin and Zosyn. They were started on December 14, 2020. Today is the fifth day of antibiotics. No other significant change in the medications today. ASSESSMENT AND PLAN: 1. End-stage renal disease. Patient is being dialyzed. Ultrafiltration goal would be around 3.5 liters. 2. Anemia in end-stage renal disease. Hemoglobin is optimized with Aranesp. 3. Chronic kidney disease, mineral bone disease. Continue current dose of phosphorus binders. Patient is noncompliant and he has to be reminded multiple times to take his binders. 4. Chronic hypotension. Continue midodrine. 5. Chronic hypoxemia and hypercapnic respiratory failure. Trach collar status, recurrent infections. Currently he is on IV Zosyn and vancomycin. Duration of antibiotic is as per medical team.
[2020-12-19] MEDS ORDERED: diphenhydrAMINE 50MG/ML VIAL (J1200) IV PRN (13:40)
[2020-12-19] MEDS ORDERED: EPINEPHrine INJ 1 MG/ML 1ML AMP IM PRN (13:45)
[2020-12-19] MEDS: BOUDREAUX'S BUTT PASTE TOP SCH ×2 (15:28→21:07)
[2020-12-19] MEDS: HEPARIN SOD (PORCINE) 5000UNITS/ML 1ML VIAL/SYRINGE SQ SCH ×2 (15:28→21:06)
[2020-12-19] MEDS: DIMETHICONE 2% OINTMENT(VANICREAM) 70GM TUBE TOP SCH ×2 (15:28→21:07)
[2020-12-19] MEDS: NYSTATIN 100,000 UNITS/GM TOPICAL PWD 15 GM TOP SCH (15:28)
--- NOTE | 2020-12-19 15:41 | IPNPDOC ---
Subjective Date Seen The patient was seen on 12/19/20. Subjective Chief Complaint/HPI Mr. Richard is a 50-year-old male with prolonged hospital course. He was seen after dialysis today. He feels okay. Denies any chest pain. He reports dyspnea, but unchanged from prior. Objective Physical Examination General Exam: Positive: Alert, Cooperative Eye Exam: Negative: Sclera icteric ENT Exam: Positive: Other ENT (trach in place) Chest Exam: Positive: Diminished Heart Exam: Positive: Rate Normal, Regular Rhythm Abdomen Exam: Positive: Normal bowel sounds, Soft; Negative: Tenderness Extremity Exam: Negative: Edema Neuro Exam: Negative: Normal Speech (doesn't speak) Psych Exam: Positive: Mental status NL, Mood NL Assessment /Plan Assessment Mr. Richard is a 50-year-old male with prolonged hospital course. On 12/13/2020, patient had increased dyspnea. This concerns that patient had either COPD or pneumonia. Pro calcitonin was elevated at 2.6. Sputum culture grew MRSA and pseudomonas aeruginosa. Patient is on vancomycin and Zosyn and on prednisone. Plan/VTE VTE Prophylaxis Ordered?: Yes Plan 1. Chronic hypoxic and hypercapnic respiratory failure Secondary to restrictive lung disease from obesity Has a trach Increased dyspnea on 12/13/2020. Possible COPD exacerbation. Pro calcitonin was elevated at 2. Patient on Zosyn, vancomycin, and prednisone We'll check pro-calcitonin tomorrow morning to determine if antibiotics can be de-escalated 2. Morbid obesity BMI 52.5 Contributing to his restrictive lung disease 3. Severe spinal stenosis Continue pain regimen 4. End-stage renal disease on hemodialysis Neurology following and recommendations appreciated Continue with dialysis 5. GERD Continue PPI 6. Depression/anxiety Continue sertraline and clonazepam 7. Paroxysmal atrial fibrillation Continue amiodarone 8. Seizure disorder Continue Keppra 9. Hypotension Continue medication on dialysis days 10. Anemia Stable Receives Aranesp at dialysis 11. Debility Chronically bedridden Pending placement at senior care 12. DVT prophylaxis Heparin subcutaneous VS, I&O, 24H, Fishbone Vital Signs/I&O Vital Signs Date Time Temp Pulse Resp B/P (MAP) Pulse Ox O2 Delivery O2 Flow Rate FiO2 12/19/20 14:03 19 12/19/20 07:07 Trach Collar 5.0 28 12/19/20 06:00 97.8 74 129/50 (76) 97 I&O- Last 24 Hours up to 6 AM 12/19/20 06:00 Intake Total 1790 ml Output Total 0 ml Balance 1790 ml Laboratory Data 24H LABS Laboratory Tests 2 12/19/20 06:06: Anion Gap 7L, Glomerular Filtration Rate 10.9L, Calcium Level 8.6, Magnesium Level 2.5H CBC/BMP Laboratory Tests 12/19/20 06:06 Microbiology Microbiology 12/13/20 Gram Stain - Final, Complete 12/13/20 Sputum Culture - Final, Complete Staph.aureus Methicillin Resis Pseudomonas Aeruginosa 12/13/20 Blood Culture - Final, Complete NO GROWTH AFTER 5 DAYS 12/13/20 Blood Culture - Final, Complete NO GROWTH AFTER 5 DAYS SAYRA LAND DO Dec 19, 2020 15:41
[2020-12-19] MEDS: **VANCO AFTER HD** MISC XX SCH (17:01)
[2020-12-19] MEDS: SENOKOT S TAB PO SCH (21:06)
[2020-12-19] MEDS: PRAMIPEXOLE (MIRAPEX) 0.125 MG TAB PO SCH (21:07)
[2020-12-19 22:00] VITALS: BP 158/68
[2020-12-20] MEDS: guaiFENesin SYRUP 200 MG/10 ML UDC PO SCH ×4 (00:12→17:09)
[2020-12-20] MEDS: PIPERACILLIN/TAZOBACTAM SOD 2.25 GM in D5W MINI-BAG PLUS 50 ML IV SCH ×3 (00:12→17:08)
[2020-12-20] MEDS: IPRATROPIUM 0.5MG/ALBUTEROL 2.5MG INH SOL UD 3ML (DUONEB) NEB SCH ×4 (00:33→20:12)
[2020-12-20] MEDS: ALBUTEROL SULFATE 2.5 MG/0.5 ML INH NEB SOLN NEB PRN ×5 (02:25→22:51)
[2020-12-20 06:00] VITALS: BP 140/69
[2020-12-20 06:29] LABS: HEMATOCRIT 36.3 % (42.0-52.0); HEMOGLOBIN 10.5 g/dl (13.5-17.5); MEAN CORPUSCULAR HEMOGLOBIN 30.4 pg (27.0-33.0); MEAN CORPUSCULAR HGB CONC 28.9 g/dl (32.0-36.5); MEAN CORPUSCULAR VOLUME 105.2 fl (80.0-96.0); PLATELET COUNT, AUTOMATED 143 10^3/uL (150-450); RED BLOOD COUNT 3.45 10^6/uL (4.30-6.10); WHITE BLOOD COUNT 8.4 10^3/uL (4.0-10.0)
[2020-12-20 06:57] LABS: CALCIUM LEVEL 8.6 MG/DL (8.5-10.1); CREATININE FOR GFR 4.32 MG/DL (0.70-1.30); GLOMERULAR FILTRATION RATE 15.7 (>60); MAGNESIUM LEVEL 2.3 MG/DL (1.8-2.4); POTASSIUM SERUM 3.7 MEQ/L (3.5-5.1)
[2020-12-20] MEDS: ALBUTEROL SULFATE 2.5 MG/0.5 ML INH NEB SOLN NEB SCH ×4 (07:16→20:00)
[2020-12-20] MEDS: ADVAIR HFA 115/21MCG INHALER INH SCH ×2 (07:16→20:12)
[2020-12-20] MEDS: predniSONE 20 MG TAB PO SCH (09:25)
[2020-12-20] MEDS: SERTRALINE 100 MG TAB PO SCH (09:25)
[2020-12-20] MEDS: levETIRAcetam 250MG TABLET (KEPPRA) PO SCH (09:25)
[2020-12-20] MEDS: (RENVELA) SEVELAMER **CARBONate** 800 MG TAB PO SCH ×3 (09:25→17:09)
[2020-12-20] MEDS: VITAMIN D 1,000 INTERNATIONAL UNITS TABLET PO SCH (09:25)
[2020-12-20] MEDS: PANTOPRAZOLE 40MG TAB (PROTONIX) PO SCH (09:25)
[2020-12-20] MEDS: DIMETHICONE 2% OINTMENT(VANICREAM) 70GM TUBE TOP SCH ×2 (09:26→20:07)
[2020-12-20] MEDS: HEPARIN SOD (PORCINE) 5000UNITS/ML 1ML VIAL/SYRINGE SQ SCH ×2 (09:26→20:06)
[2020-12-20] MEDS: NYSTATIN 100,000 UNITS/GM TOPICAL PWD 15 GM TOP SCH (09:26)
[2020-12-20] MEDS: AMIODARONE 200 MG TAB (PACERONE) PO SCH (09:26)
[2020-12-20] MEDS: BOUDREAUX'S BUTT PASTE TOP SCH ×2 (09:27→20:07)
[2020-12-20] MEDS ORDERED: VANCOMYCIN HCL 1,000 MG, VIAL MATE ADAPTER 1 EACH in NS 250 ML IV SCH (10:05)
--- NOTE | 2020-12-20 13:22 | IPNPDOC ---
Subjective Date Seen The patient was seen on 12/20/20. Subjective Chief Complaint/HPI Mr. Richard is a 50-year-old male with prolonged hospital course. He was seen this morning. Appears comfortable. Denies chest pain or worsening dyspnea. I touched base with Dr. Ortega today about trach. Dr. Ortega plan to have the trach changed in 3 months which will be February 06. Objective Physical Examination General Exam: Positive: Alert, Cooperative Eye Exam: Negative: Sclera icteric ENT Exam: Positive: Other ENT (trach in place) Chest Exam: Positive: Diminished Heart Exam: Positive: Rate Normal, Regular Rhythm Abdomen Exam: Positive: Normal bowel sounds, Soft; Negative: Tenderness Extremity Exam: Negative: Edema Neuro Exam: Negative: Normal Speech (doesn't speak) Psych Exam: Positive: Mental status NL, Mood NL Assessment /Plan Assessment Mr. Richard is a 50-year-old male with prolonged hospital course. On 12/13/2020, patient had increased dyspnea. This concerns that patient had either COPD or pneumonia. Pro calcitonin was elevated at 2.6. Sputum culture grew MRSA and pseudomonas aeruginosa. Patient is on vancomycin and Zosyn and on prednisone. Otherwise, spoke with Dr. Ortega. Recommends changing trach every 3 months. Next change to be 02/06/2021 Plan/VTE VTE Prophylaxis Ordered?: Yes Plan 1. Chronic hypoxic and hypercapnic respiratory failure Secondary to restrictive lung disease from obesity Has a trach. Spoke with Dr. Ortega. Recommend changing in 3 months. Plan to exchange on 02/06/2021 Increased dyspnea on 12/13/2020. Possible COPD exacerbation. Pro calcitonin was elevated at 2. Patient on Zosyn, vancomycin, and prednisone Pending pro-calcitonin results for de-escalation of antibiotics Start tapering prednisone 2. Morbid obesity BMI 52.5 Contributing to his restrictive lung disease 3. Severe spinal stenosis Continue pain regimen 4. End-stage renal disease on hemodialysis Neurology following and recommendations appreciated Continue with dialysis 5. GERD Continue PPI 6. Depression/anxiety Continue sertraline and clonazepam 7. Paroxysmal atrial fibrillation Continue amiodarone 8. Seizure disorder Continue Keppra 9. Hypotension Continue medication on dialysis days 10. Anemia Stable Receives Aranesp at dialysis 11. Debility Chronically bedridden Pending placement at [facility] 12. DVT prophylaxis Heparin subcutaneous VS, I&O, 24H, Fishbone Vital Signs/I&O Vital Signs Date Time Temp Pulse Resp B/P (MAP) Pulse Ox O2 Delivery O2 Flow Rate FiO2 12/20/20 09:40 5.0 28 12/20/20 06:00 97.3 84 18 140/69 (92) 96 Trach Collar I&O- Last 24 Hours up to 6 AM 12/20/20 05:59 Intake Total 765 ml Output Total 3500 ml Balance -2735 ml Laboratory Data 24H LABS Laboratory Tests 2 12/20/20 05:54: Nucleated Red Blood Cells % (auto) 0.6H, Anion Gap 9, Glomerular Filtration Rate 15.7L, Calcium Level 8.6, Magnesium Level 2.3, Random Vancomycin Level 22.0 CBC/BMP Laboratory Tests 12/20/20 05:54 Microbiology Microbiology 12/13/20 Gram Stain - Final, Complete 12/13/20 Sputum Culture - Final, Complete Staph.aureus Methicillin Resis Pseudomonas Aeruginosa 12/13/20 Blood Culture - Final, Complete NO GROWTH AFTER 5 DAYS 12/13/20 Blood Culture - Final, Complete NO GROWTH AFTER 5 DAYS SAYRA LAND DO Dec 20, 2020 13:22
[2020-12-20 14:00] VITALS: BP 149/67
[2020-12-20] MEDS: **VANCO AFTER HD** MISC XX SCH (15:32)
[2020-12-20] MEDS: SENOKOT S TAB PO SCH (20:06)
[2020-12-20] MEDS: methylPREDNISolone 125MG 2ML VIAL IV SCH (20:06)
[2020-12-20] MEDS: PRAMIPEXOLE (MIRAPEX) 0.125 MG TAB PO SCH (20:06)
[2020-12-20] MEDS: clonazePAM 0.5 MG TAB PO PRN (20:22)
[2020-12-20] MEDS: oxyCODONE 5MG TAB PO PRN (20:24)
[2020-12-20 22:00] VITALS: BP 146/67
[2020-12-21] VITALS: BP 156/69
[2020-12-21] MEDS: PIPERACILLIN/TAZOBACTAM SOD 2.25 GM in D5W MINI-BAG PLUS 50 ML IV SCH ×3 (00:54→17:15)
[2020-12-21] MEDS: guaiFENesin SYRUP 200 MG/10 ML UDC PO SCH ×4 (00:55→17:15)
[2020-12-21] MEDS: methylPREDNISolone 125MG 2ML VIAL IV SCH ×4 (00:55→22:43)
[2020-12-21] MEDS: IPRATROPIUM 0.5MG/ALBUTEROL 2.5MG INH SOL UD 3ML (DUONEB) NEB SCH ×2 (01:03→08:00)
[2020-12-21] MEDS: ALBUTEROL SULFATE 2.5 MG/0.5 ML INH NEB SOLN NEB PRN ×2 (03:34→23:32)
[2020-12-21 04:00] VITALS: BP 158/73
[2020-12-21 08:00] VITALS: BP 151/71
[2020-12-21] MEDS: ADVAIR HFA 115/21MCG INHALER INH SCH (08:00)
[2020-12-21] MEDS: BUDESONIDE 0.5 MG/2 ML INHALATION SUSPENSION INH SCH ×2 (08:00→20:40)
[2020-12-21] MEDS: FORMOTEROL FUMARATE 20 MCG/2 ML INHALATION SOLUTION (PERFOROMIST) INH SCH ×2 (08:00→20:40)
[2020-12-21] MEDS: ALBUTEROL SULFATE 2.5 MG/0.5 ML INH NEB SOLN NEB SCH ×4 (08:06→20:40)
[2020-12-21 08:07] VITALS: O2SAT 99
[2020-12-21] MEDS: (RENVELA) SEVELAMER **CARBONate** 800 MG TAB PO SCH ×3 (08:32→17:15)
[2020-12-21] MEDS: MIDODRINE 5 MG TAB PO SCH (08:32)
[2020-12-21] MEDS: VITAMIN D 1,000 INTERNATIONAL UNITS TABLET PO SCH (08:32)
[2020-12-21] MEDS: SERTRALINE 100 MG TAB PO SCH (08:32)
[2020-12-21] MEDS: PANTOPRAZOLE 40MG TAB (PROTONIX) PO SCH (08:33)
[2020-12-21] MEDS: HEPARIN SOD (PORCINE) 5000UNITS/ML 1ML VIAL/SYRINGE SQ SCH ×2 (08:33→22:43)
[2020-12-21] MEDS: NYSTATIN 100,000 UNITS/GM TOPICAL PWD 15 GM TOP SCH (08:36)
[2020-12-21] MEDS ORDERED: LIDOCAINE 1% SDV 5ML VIAL SC PRN (09:00)
[2020-12-21] MEDS ORDERED: SODIUM CHLORIDE 0.9% 1000ML IV PRN (09:00)
[2020-12-21] MEDS: DIMETHICONE 2% OINTMENT(VANICREAM) 70GM TUBE TOP SCH ×2 (09:00→22:45)
[2020-12-21] MEDS ORDERED: predniSONE 10 MG TAB PO SCH (09:00)
[2020-12-21] MEDS: BOUDREAUX'S BUTT PASTE TOP SCH ×2 (09:00→22:44)
[2020-12-21 09:47] LABS: HEMATOCRIT 37.3 % (42.0-52.0); HEMOGLOBIN 10.8 g/dl (13.5-17.5); MEAN CORPUSCULAR HEMOGLOBIN 29.6 pg (27.0-33.0); MEAN CORPUSCULAR VOLUME 102.2 fl (80.0-96.0); PLATELET COUNT, AUTOMATED 151 10^3/uL (150-450); RED BLOOD COUNT 3.65 10^6/uL (4.30-6.10); WHITE BLOOD COUNT 5.6 10^3/uL (4.0-10.0)
--- NOTE | 2020-12-21 10:15 | IPNPDOC ---
Subjective Date Seen The patient was seen on 12/21/20. Subjective Chief Complaint/HPI Mr. Richard is a 50-year-old male with prolonged hospital course. Yesterday afternoon, he had worsening dyspnea. The nurse had to bag him. Patient had expiratory wheezes on exam. Patient was transferred to PCU and steroids were increased to Solu-Medrol. This morning, he tells me his breathing is better. I spoke with the respiratory therapist. Patient was not getting Advair because of his trach. Recommended switching to Perforomist and Pulmicort which I agreed with. No wheezes on exam today Objective Physical Examination General Exam: Positive: Alert, Cooperative Eye Exam: Negative: Sclera icteric ENT Exam: Positive: Other ENT (trach in place) Chest Exam: Positive: Diminished Heart Exam: Positive: Rate Normal, Regular Rhythm Abdomen Exam: Positive: Normal bowel sounds, Soft; Negative: Tenderness Extremity Exam: Negative: Edema Neuro Exam: Negative: Normal Speech (doesn't speak) Psych Exam: Positive: Mental status NL, Mood NL Assessment /Plan Assessment Mr. Richard is a 50-year-old male with prolonged hospital course. On 12/13/2020, patient had increased dyspnea. This concerns that patient had either COPD or pneumonia. Pro calcitonin was elevated at 2.6. Sputum culture grew MRSA and pseudomonas aeruginosa. Patient is on vancomycin and Zosyn and on Solu-Medrol. Will be on a prolonged course of antibiotics due to elevated Pro calcitonin Otherwise, spoke with Dr. Ortega. Recommends changing trach every 3 months. Next change to be 02/06/2021 Plan/VTE VTE Prophylaxis Ordered?: Yes Plan 1. Chronic hypoxic and hypercapnic respiratory failure Secondary to restrictive lung disease from obesity Has a trach. Spoke with Dr. Ortega. Recommend changing in 3 months. Plan to exchange on 02/06/2021 Increased dyspnea on 12/13/2020. Possible COPD exacerbation. Pro calcitonin is elevated at 2. Patient on Zosyn, vancomycin, and Solu-Medrol Repeat pro-calcitonin still elevated Start tapering Solu-Medrol 2. Morbid obesity BMI 52.5 Contributing to his restrictive lung disease 3. Severe spinal stenosis Continue pain regimen 4. End-stage renal disease on hemodialysis Neurology following and recommendations appreciated Continue with dialysis 5. GERD Continue PPI 6. Depression/anxiety Continue sertraline and clonazepam 7. Paroxysmal atrial fibrillation Continue amiodarone 8. Seizure disorder Continue Keppra 9. Hypotension Continue medication on dialysis days 10. Anemia Stable Receives Aranesp at dialysis 11. Debility Chronically bedridden Pending placement at retirement 12. DVT prophylaxis Heparin subcutaneous VS, I&O, 24H, Fishbone Vital Signs/I&O Vital Signs Date Time Temp Pulse Resp B/P (MAP) Pulse Ox O2 Delivery O2 Flow Rate FiO2 12/21/20 08:07 99 Trach Collar 28 12/21/20 08:00 97.2 65 18 151/71 (97) 12/21/20 04:00 5.0 I&O- Last 24 Hours up to 6 AM 12/21/20 06:00 Intake Total 1870 ml Output Total 0 ml Balance 1870 ml Laboratory Data 24H LABS Laboratory Tests 2 12/21/20 09:37: Nucleated Red Blood Cells % (auto) 0.4H CBC/BMP Laboratory Tests 12/21/20 09:37 Microbiology Microbiology 12/13/20 Gram Stain - Final, Complete 12/13/20 Sputum Culture - Final, Complete Staph.aureus Methicillin Resis Pseudomonas Aeruginosa 12/13/20 Blood Culture - Final, Complete NO GROWTH AFTER 5 DAYS 12/13/20 Blood Culture - Final, Complete NO GROWTH AFTER 5 DAYS SAYRA LAND DO Dec 21, 2020 10:15
[2020-12-21 10:23] LABS: CALCIUM LEVEL 8.7 MG/DL (8.5-10.1); CREATININE FOR GFR 5.79 MG/DL (0.70-1.30); GLOMERULAR FILTRATION RATE 11.2 (>60); POTASSIUM SERUM 4.9 MEQ/L (3.5-5.1)
[2020-12-21 15:00] VITALS: BP 165/78
[2020-12-21] MEDS: AMIODARONE 200 MG TAB (PACERONE) PO SCH (15:19)
[2020-12-21] MEDS: levETIRAcetam 250MG TABLET (KEPPRA) PO SCH (15:20)
[2020-12-21] MEDS: **VANCO AFTER HD** MISC XX SCH (15:21)
[2020-12-21 22:00] VITALS: BP 150/78
[2020-12-21] MEDS: SENOKOT S TAB PO SCH (22:42)
[2020-12-21] MEDS: clonazePAM 0.5 MG TAB PO PRN (22:51)
[2020-12-21] MEDS: oxyCODONE 5MG TAB PO PRN (22:52)
[2020-12-22] MEDS: guaiFENesin SYRUP 200 MG/10 ML UDC PO SCH ×4 (00:12→17:19)
[2020-12-22] MEDS: PIPERACILLIN/TAZOBACTAM SOD 2.25 GM in D5W MINI-BAG PLUS 50 ML IV SCH ×3 (00:58→17:18)
[2020-12-22] MEDS: PRAMIPEXOLE (MIRAPEX) 0.125 MG TAB PO SCH ×2 (00:58→21:55)
[2020-12-22] MEDS: ALBUTEROL SULFATE 2.5 MG/0.5 ML INH NEB SOLN NEB PRN (03:45)
[2020-12-22 06:00] VITALS: BP 162/74
[2020-12-22] MEDS: methylPREDNISolone 125MG 2ML VIAL IV SCH ×2 (06:21→17:19)
[2020-12-22 06:50] LABS: HEMATOCRIT 37.4 % (42.0-52.0); HEMOGLOBIN 10.8 g/dl (13.5-17.5); MEAN CORPUSCULAR HEMOGLOBIN 29.3 pg (27.0-33.0); MEAN CORPUSCULAR HGB CONC 28.9 g/dl (32.0-36.5); MEAN CORPUSCULAR VOLUME 101.6 fl (80.0-96.0); PLATELET COUNT, AUTOMATED 158 10^3/uL (150-450); RED BLOOD COUNT 3.68 10^6/uL (4.30-6.10); WHITE BLOOD COUNT 6.6 10^3/uL (4.0-10.0)
[2020-12-22 07:10] LABS: CALCIUM LEVEL 9.1 MG/DL (8.5-10.1); CREATININE FOR GFR 4.33 MG/DL (0.70-1.30); GLOMERULAR FILTRATION RATE 15.6 (>60); POTASSIUM SERUM 4.5 MEQ/L (3.5-5.1)
[2020-12-22] MEDS: ALBUTEROL SULFATE 2.5 MG/0.5 ML INH NEB SOLN NEB SCH ×4 (07:30→20:00)
[2020-12-22] MEDS: FORMOTEROL FUMARATE 20 MCG/2 ML INHALATION SOLUTION (PERFOROMIST) INH SCH ×2 (07:30→20:03)
[2020-12-22] MEDS: BUDESONIDE 0.5 MG/2 ML INHALATION SUSPENSION INH SCH ×2 (07:30→20:04)
--- NOTE | 2020-12-22 08:45 | IPN ---
NEPHROLOGY PROGRESS NOTE DATE: 12/21/2020 SUBJECTIVE: Matthew is seen and examined this morning in the hemodialysis unit receiving his maintenance dialysis treatment. He denies any complaints. Denies any shortness of breath. His dialysis continues to be uneventful. PHYSICAL EXAMINATION: Temperature 97.5, pulse 67, respiratory rate 20, blood pressure 151/71, saturating 99% on trach collar. Dialysis today removed 3.5 liters. GENERAL: Patient is seen in the hemodialysis unit, awake, alert and at baseline mentation, getting his treatment done. HEENT: Extraocular muscles are intact. Tongue is moist. NECK: Supple. There is a tracheostomy. CARDIAC: S1, S2. Regular rhythm. There is 1+ dependent edema. LUNG SOUNDS: Clear bilaterally. No crackle, rale or rhonchus. ABDOMEN: Soft and obese. There are bowel sounds. EXTREMITIES: His feet are in waffle boots. He moves both lower extremities on command, but has decreased range of motion of the lower extremities. His fistula is patent and in use. NEUROLOGIC: He is at baseline mentation. He attempts to communicate by mouthing. LABORATORY STUDIES: Laboratory studies today show sodium 136, potassium 4.9, bicarbonate 25, calcium 8.7. Hemoglobin 10.8. INPATIENT MEDICATIONS: Reviewed by myself. I notice he was started on Pulmicort 0.5 mg inhaled twice daily and formoterol 20 mcg inhaled twice daily. Primary team also started him on Solu-Medrol 60 mg intravenous (IV) every 8 hours. The remainder of the medications are unchanged as compared with yesterday. PROBLEMS: 1. End-stage renal disease on hemodialysis on a Wednesday, , Wednesday schedule. Patient is well-dialyzed. His electrolytes are acceptable. His volume status is reasonably concentrated. We removed 3.5 liters today with his treatment, which is the usual goal. 2. Anemia of end-stage renal disease. His hemoglobin is optimized with the current dose of Aranesp. 3. Chronic kidney disease (CKD)/mineral bone dystrophy. Continue current dose of phosphorus binder. Patient continues to refuse occasional dose of sevelamer but overall, the compliance has improved nicely. 4. Hypotension of hemodialysis. Patient continues on midodrine predialysis and his blood pressures with his treatments have been stable and he is tolerating fluid removal well. 5. Chronic hypercapnic respiratory failure with long-term tracheostomy. Patient is presently being treated for exacerbation by the primary service. He seems to be fairly asymptomatic.
[2020-12-22] MEDS: (RENVELA) SEVELAMER **CARBONate** 800 MG TAB PO SCH ×3 (09:51→17:18)
[2020-12-22] MEDS: AMIODARONE 200 MG TAB (PACERONE) PO SCH (09:52)
[2020-12-22] MEDS: HEPARIN SOD (PORCINE) 5000UNITS/ML 1ML VIAL/SYRINGE SQ SCH ×2 (09:52→21:55)
[2020-12-22] MEDS: levETIRAcetam 250MG TABLET (KEPPRA) PO SCH (09:52)
[2020-12-22] MEDS: VITAMIN D 1,000 INTERNATIONAL UNITS TABLET PO SCH (09:52)
[2020-12-22] MEDS: SERTRALINE 100 MG TAB PO SCH (09:52)
[2020-12-22] MEDS: PANTOPRAZOLE 40MG TAB (PROTONIX) PO SCH (09:52)
[2020-12-22] MEDS: NYSTATIN 100,000 UNITS/GM TOPICAL PWD 15 GM TOP SCH (09:53)
[2020-12-22] MEDS: BOUDREAUX'S BUTT PASTE TOP SCH ×3 (09:53→21:55)
[2020-12-22] MEDS: DIMETHICONE 2% OINTMENT(VANICREAM) 70GM TUBE TOP SCH ×2 (09:53→21:55)
[2020-12-22] MEDS: **VANCO AFTER HD** MISC XX SCH (13:09)
--- NOTE | 2020-12-22 14:52 | REP ---
INDICATION: sob. COMPARISON: 12/13/2020. TECHNIQUE: SINGLE PORTABLE AP VIEW OF THE CHEST WAS PERFORMED. FINDINGS: Tracheostomy tube appears unchanged in position. Cardiomegaly is again noted unchanged. Mediastinal silhouette is unchanged. Mildly prominent pulmonary vasculature and interstitium also appear unchanged. No new infiltrate is seen. IMPRESSION: Stable exam. <Electronically signed by Last Lin > 12/22/20 [id number]
[2020-12-22 15:14] VITALS: BP 186/77
--- NOTE | 2020-12-22 15:15 | IPN ---
NEPHROLOGY PROGRESS NOTE DATE: 12/22/2020 SUBJECTIVE: Matthew is seen and examined this morning at the bedside. His nurse tells me that he has been requesting very frequent suctioning every couple of hours and he has been requesting the respiratory therapist to see him time and again. He has been complaining of shortness of breath. He was dialyzed yesterday with 3.5 liters of fluid removed. Primary Team also had him on IV steroids for the past few days. I am going to get a repeat chest x-ray to make sure that there are no signs of pulmonary edema. OBJECTIVE: VITAL SIGNS: Temperature 98.0, pulse 65, respiratory rate 18, blood pressure 162/74, saturating 97-98% on trach collar. INTAKE AND OUTPUT: Intake yesterday was 2 liters. Dialysis yesterday removed 3.5 liters. There is no weight recorded in the bed scale. PHYSICAL EXAMINATION: GENERAL APPEARANCE: The patient is seen lying in bed, morbidly obese male in no apparent distress using his Ipad. HEENT: The extraocular muscles are intact. Tongue is moist. NECK: Supple. There is a tracheostomy HEART: Regular, S1, S2. There is 1+ dependent edema and 1+ peripheral edema. LUNGS: Anterior auscultation only distant diminished secondary to body habitus, but I do not appreciate crackles or rales. ABDOMEN: Soft and obese. There are bowel sounds. EXTREMITIES: Feet in waffle boots. He does move both legs on command. He has a fistula in the arm which is patent and in use. NEUROLOGICAL: He is at baseline mentation. He attempts to communicate by mouthing. LABORATORY STUDIES: White count 6.6, hemoglobin 10.8, platelet count 158. Sodium 134, potassium 4.5, bicarbonate 27. IMAGING: His last chest x-ray on December 13 showed some cephalization and vascular congestion. CURRENT INPATIENT MEDICATIONS: The patient's medications were all reviewed by myself. He is on IV Zosyn along with IV Vancomycin. He is getting Albuterol and Pulmicort and Formoterol inhalers. He is getting Robitussin cough syrup. He is on IV Solu-Medrol. His other medications are all unchanged as compared to yesterday. PROBLEMS: 1. End-stage renal disease on hemodialysis on Wednesday, , Wednesday schedule. Nursing staff tells me today that the patient has requested repeated suctioning and respiratory therapist has attended to him frequently. I am going to get a repeat chest x-ray to make sure that he does not have any pulmonary vascular congestion or pulmonary edema that is increasing and I will most likely take him for an extra dialysis treatment on Wednesday. 2. Anemia of end-stage renal disease - hemoglobin is optimized with current dose of Aranesp. 3. Chronic hypoxic and hypercapnic respiratory failure, status post tracheostomy - The patient has been more symptomatic, has been requesting frequent suctioning. He is being treated by Primary Service with broad spectrum antibiotics. He is on Zosyn and Vancomycin. He is also being treated for a COPD exacerbation. He is still symptomatic. I am going to get a repeat chest x-ray to make sure that volume is not an issue. I will most likely plan to do an extra dialysis on Wednesday as well to see if increased fluid removal helps with his dyspnea. 4. Hypotension of hemodialysis - continue with Midodrine pre-dialysis treatments. 5. Morbid obesity and chronic bedridden state complicates his care.
--- NOTE | 2020-12-22 17:33 | IPNPDOC ---
Subjective Date Seen The patient was seen on 12/22/20. Subjective Chief Complaint/HPI Mr. Richard is a 50-year-old male with prolonged hospital course. This morning, he complained of heavy breathing. Otherwise his vitals have been stable. No increase in oxygen requirement and there is no increase in leukocytosis. Objective Physical Examination General Exam: Positive: Alert, Cooperative Eye Exam: Negative: Sclera icteric ENT Exam: Positive: Other ENT (trach in place) Chest Exam: Positive: Diminished Heart Exam: Positive: Rate Normal, Regular Rhythm Abdomen Exam: Positive: Normal bowel sounds, Soft; Negative: Tenderness Extremity Exam: Negative: Edema Neuro Exam: Negative: Normal Speech (doesn't speak) Psych Exam: Positive: Mental status NL, Mood NL Assessment /Plan Assessment Mr. Richard is a 50-year-old male with prolonged hospital course. On 12/13/2020, patient had increased dyspnea. This concerns that patient had either COPD or pneumonia. Pro calcitonin was elevated at 2.6. Sputum culture grew MRSA and pseudomonas aeruginosa. Patient is on vancomycin and Zosyn and on Solu-Medrol. Patient had a total of 9 days of antibiotics. Pro calcitonin may still be falsely elevated due to end-stage renal disease on dialysis. Patient's vital signs have been stable. No increase in oxygen requirement and no increase in leukocytosis. We'll wean off of steroids. Otherwise, spoke with Dr. Ortega. Recommends changing trach every 3 months. Next change to be 02/06/2021 Plan/VTE VTE Prophylaxis Ordered?: Yes Plan 1. Chronic hypoxic and hypercapnic respiratory failure Secondary to restrictive lung disease from obesity Has a trach. Spoke with Dr. Ortega. Recommend changing in 3 months. Plan to exchange on 02/06/2021 Increased dyspnea on 12/13/2020. Possible COPD exacerbation. Pro calcitonin is elevated at 2. Patient on Zosyn, vancomycin, and Solu-Medrol Pro calcitonin may have been falsely elevated due to end-stage renal disease. Patient had antibiotics for 9 days we'll discontinue now. Tapering Solu-Medrol. Can start prednisone taper tomorrow. 2. Morbid obesity BMI 52.5 Contributing to his restrictive lung disease and complicating care 3. Severe spinal stenosis Continue pain regimen 4. End-stage renal disease on hemodialysis Neurology following and recommendations appreciated Continue with dialysis 5. GERD Continue PPI 6. Depression/anxiety Continue sertraline and clonazepam 7. Paroxysmal atrial fibrillation Continue amiodarone 8. Seizure disorder Continue Keppra 9. Hypotension Continue medication on dialysis days 10. Anemia Stable Receives Aranesp at dialysis 11. Debility Chronically bedridden Pending placement at intermediate 12. DVT prophylaxis Heparin subcutaneous VS, I&O, 24H, Fishbone Vital Signs/I&O Vital Signs Date Time Temp Pulse Resp B/P (MAP) Pulse Ox O2 Delivery O2 Flow Rate FiO2 12/22/20 15:14 97.2 68 19 186/77 (113) 96 Trach Collar 5.0 28 I&O- Last 24 Hours up to 6 AM 12/22/20 06:00 Intake Total 1030 ml Output Total 3500 ml Balance -2470 ml Laboratory Data 24H LABS Laboratory Tests 2 12/22/20 06:20: Nucleated Red Blood Cells % (auto) 0.5H, Anion Gap 7L, Glomerular Filtration Rate 15.6L, Calcium Level 9.1 CBC/BMP Laboratory Tests 12/22/20 06:20 Microbiology Microbiology 12/13/20 Gram Stain - Final, Complete 12/13/20 Sputum Culture - Final, Complete Staph.aureus Methicillin Resis Pseudomonas Aeruginosa 12/13/20 Blood Culture - Final, Complete NO GROWTH AFTER 5 DAYS 12/13/20 Blood Culture - Final, Complete NO GROWTH AFTER 5 DAYS SAYRA LAND DO Dec 22, 2020 17:33
[2020-12-22 18:08] VITALS: BP 169/85
[2020-12-22] MEDS: clonazePAM 0.5 MG TAB PO PRN (21:37)
[2020-12-22] MEDS: SENOKOT S TAB PO SCH (21:55)
[2020-12-22] MEDS: oxyCODONE 5MG TAB PO PRN (21:56)
[2020-12-22 22:00] VITALS: BP 169/81
[2020-12-22 23:54] LABS: VENOUS BASE EXCESS -3.1 (-2.0-2.0); VENOUS O2 SATURATION 99.1 % (60.0-80.0); VENOUS PARTIAL PRESSURE CO2 51.7 mmHg (38.0-50.0); VENOUS PARTIAL PRESSURE O2 188.9 mmHg (30.0-50.0); VENOUS PH 7.284 UNITS (7.330-7.430); VENOUS STANDARD HCO3 21.9 MEQ/L; VENOUS TOTAL CO2 25.6 MEQ/L (24.0-28.0)
[2020-12-23] MEDS: ALBUTEROL SULFATE 2.5 MG/0.5 ML INH NEB SOLN NEB PRN ×3 (00:15→23:12)
--- NOTE | 2020-12-23 00:17 | REPVR ---
PROCEDURE INFORMATION: Exam: XR Chest Exam date and time: 12/22/2020 11:54 PM Age: 50 years old Clinical indication: Shortness of breath; Additional info: increased secretions TECHNIQUE: Imaging protocol: XR of the chest Views: 1 view. COMPARISON: [facility] PORTABLE CHEST X-RAY 12/22/2020 1:27 PM FINDINGS: Tubes, catheters and devices: There is a tracheostomy tube terminating in the trachea 5.7 cm above the compa. Lungs: Unremarkable. No consolidation. No pulmonary edema. Pleural spaces: Unremarkable. No pleural effusion. No pneumothorax. Heart/Mediastinum: The cardiac silhouette is enlarged and similar in size compared to the prior chest x-ray on 12/22/2020. The mediastinal contours are stable. Bones/joints: Unremarkable. IMPRESSION: No radiographic evidence for an acute cardiopulmonary process. No significant change compared to the prior chest x-ray on 12/22/2020. Electronically signed by: Tanner Vidales On 12/23/2020 00:17:52 AM
[2020-12-23] MEDS: guaiFENesin SYRUP 200 MG/10 ML UDC PO SCH ×5 (01:22→23:46)
[2020-12-23 06:00] VITALS: BP 141/67
[2020-12-23 06:20] LABS: HEMATOCRIT 37.6 % (42.0-52.0); MEAN CORPUSCULAR HEMOGLOBIN 29.7 pg (27.0-33.0); MEAN CORPUSCULAR HGB CONC 29.3 g/dl (32.0-36.5); MEAN CORPUSCULAR VOLUME 101.6 fl (80.0-96.0); PLATELET COUNT, AUTOMATED 153 10^3/uL (150-450); WHITE BLOOD COUNT 9.1 10^3/uL (4.0-10.0)
[2020-12-23] MEDS: HEPARIN SOD (PORCINE) 5000UNITS/ML 1ML VIAL/SYRINGE SQ SCH ×2 (06:23→20:23)
[2020-12-23] MEDS: methylPREDNISolone 125MG 2ML VIAL IV SCH (06:23)
[2020-12-23] MEDS: levETIRAcetam 250MG TABLET (KEPPRA) PO SCH (06:24)
[2020-12-23] MEDS: AMIODARONE 200 MG TAB (PACERONE) PO SCH (06:24)
[2020-12-23] MEDS: PANTOPRAZOLE 40MG TAB (PROTONIX) PO SCH (06:24)
[2020-12-23] MEDS: SERTRALINE 100 MG TAB PO SCH (06:24)
[2020-12-23] MEDS: VITAMIN D 1,000 INTERNATIONAL UNITS TABLET PO SCH (06:24)
[2020-12-23 06:51] LABS: CALCIUM LEVEL 8.5 MG/DL (8.5-10.1); CREATININE FOR GFR 5.53 MG/DL (0.70-1.30); GLOMERULAR FILTRATION RATE 11.8 (>60); POTASSIUM SERUM 4.7 MEQ/L (3.5-5.1)
[2020-12-23] MEDS: ALBUTEROL SULFATE 2.5 MG/0.5 ML INH NEB SOLN NEB SCH ×4 (07:33→19:28)
[2020-12-23] MEDS: BUDESONIDE 0.5 MG/2 ML INHALATION SUSPENSION INH SCH ×2 (08:00→19:28)
[2020-12-23] MEDS: clonazePAM 0.5 MG TAB PO PRN ×2 (08:40→20:21)
[2020-12-23] MEDS: (RENVELA) SEVELAMER **CARBONate** 800 MG TAB PO SCH ×3 (08:40→17:41)
[2020-12-23] MEDS: oxyCODONE 5MG TAB PO PRN ×2 (08:41→20:22)
[2020-12-23] MEDS: BOUDREAUX'S BUTT PASTE TOP SCH ×2 (11:37→20:23)
[2020-12-23] MEDS: NYSTATIN 100,000 UNITS/GM TOPICAL PWD 15 GM TOP SCH (11:38)
[2020-12-23] MEDS: DIMETHICONE 2% OINTMENT(VANICREAM) 70GM TUBE TOP SCH ×2 (11:38→20:23)
[2020-12-23 11:50] VITALS: BP 171/83
[2020-12-23] MEDS ORDERED: MIDODRINE 5 MG TAB PO ONE (12:00)
[2020-12-23] MEDS ORDERED: SODIUM CHLORIDE 0.9% 1000ML IV PRN (14:10)
[2020-12-23] MEDS ORDERED: LIDOCAINE 1% SDV 5ML VIAL SC PRN (14:10)
[2020-12-23 17:20] VITALS: BP 165/76
[2020-12-23] MEDS: FORMOTEROL FUMARATE 20 MCG/2 ML INHALATION SOLUTION (PERFOROMIST) INH SCH (19:28)
[2020-12-23] MEDS: SENOKOT S TAB PO SCH (20:22)
[2020-12-23] MEDS: PRAMIPEXOLE (MIRAPEX) 0.125 MG TAB PO SCH (20:22)
--- NOTE | 2020-12-23 21:46 | IPNPDOC ---
Subjective Date Seen The patient was seen on 12/23/20. Subjective Chief Complaint/HPI Mr. Richard is a 50-year-old male with prolonged hospital course. He was seen as he was being suctioned by respiratory therapy. Denies any chest pain. Patient to have an extra round at dialysis today Objective Physical Examination General Exam: Positive: Alert, Cooperative Eye Exam: Negative: Sclera icteric ENT Exam: Positive: Other ENT (trach in place) Chest Exam: Positive: Diminished Heart Exam: Positive: Rate Normal, Regular Rhythm Abdomen Exam: Positive: Normal bowel sounds, Soft; Negative: Tenderness Extremity Exam: Negative: Edema Neuro Exam: Negative: Normal Speech (doesn't speak) Psych Exam: Positive: Mental status NL, Mood NL Assessment /Plan Assessment Mr. Richard is a 50-year-old male with prolonged hospital course. On 12/13/2020, patient had increased dyspnea. This concerns that patient had either COPD or pneumonia. Pro calcitonin was elevated at 2.6. Sputum culture grew MRSA and pseudomonas aeruginosa. Patient is on vancomycin and Zosyn and on Solu-Medrol. Patient had a total of 9 days of antibiotics. Pro calcitonin may still be falsely elevated due to end-stage renal disease on dialysis. Patient's vital signs have been stable. No increase in oxygen requirement and no increase in leukocytosis. We'll wean off of steroids. Otherwise, spoke with Dr. Ortega. Recommends changing trach every 3 months. Next change to be 02/06/2021 Plan/VTE VTE Prophylaxis Ordered?: Yes Plan 1. Chronic hypoxic and hypercapnic respiratory failure Secondary to restrictive lung disease from obesity Has a trach. Spoke with Dr. Ortega. Recommend changing in 3 months. Plan to exchange on 02/06/2021 Increased dyspnea on 12/13/2020. Possible COPD exacerbation. Pro calcitonin is elevated at 2. Patient on Zosyn, vancomycin, and Solu-Medrol Pro calcitonin may have been falsely elevated due to end-stage renal disease. Patient had antibiotics for 9 days we'll discontinue now. On prednisone taper 2. Morbid obesity BMI 52.5 Contributing to his restrictive lung disease and complicating care 3. Severe spinal stenosis Continue pain regimen 4. End-stage renal disease on hemodialysis Neurology following and recommendations appreciated Continue with dialysis 5. GERD Continue PPI 6. Depression/anxiety Continue sertraline and clonazepam 7. Paroxysmal atrial fibrillation Continue amiodarone 8. Seizure disorder Continue Keppra 9. Hypotension Continue medication on dialysis days 10. Anemia Stable Receives Aranesp at dialysis 11. Debility Chronically bedridden Pending placement at [facility] 12. DVT prophylaxis Heparin subcutaneous VS, I&O, 24H, Fishbone Vital Signs/I&O Vital Signs Date Time Temp Pulse Resp B/P (MAP) Pulse Ox O2 Delivery O2 Flow Rate FiO2 12/23/20 20:22 20 12/23/20 17:20 98.1 62 165/76 (105) 97 Trach Collar 5.0 28 I&O- Last 24 Hours up to 6 AM 12/23/20 06:00 Intake Total 1220 ml Output Total 0 ml Balance 1220 ml Laboratory Data 24H LABS Laboratory Tests 2 12/22/20 23:48: Blood Gas Bicarbonate Standard 21.9, Venous Blood pH 7.284L, Venous Blood Partial Pressure CO2 51.7H, Venous Blood Partial Pressure O2 188.9H, Venous Blood Total Carbon Dioxide 25.6, Venous Blood HCO3 24.0, Venous Blood Oxygen Sa turation 99.1H, Venous Blood Base Excess -3.1L 12/23/20 06:00: Nucleated Red Blood Cells % (auto) 0.0, Anion Gap 9, Glomerular Filtration Rate 11.8L, Calcium Level 8.5 CBC/BMP Laboratory Tests 12/23/20 06:00 Microbiology Microbiology 12/13/20 Gram Stain - Final, Complete 12/13/20 Sputum Culture - Final, Complete Staph.aureus Methicillin Resis Pseudomonas Aeruginosa 12/13/20 Blood Culture - Final, Complete NO GROWTH AFTER 5 DAYS 12/13/20 Blood Culture - Final, Complete NO GROWTH AFTER 5 DAYS SAYRA LAND DO Dec 23, 2020 21:46
--- NOTE | 2020-12-24 00:11 | IPN ---
INPATIENT PROGRESS NOTE DATE: 12/23/2020 SUBJECTIVE: Matthew is seen and examined this morning at the bedside and later in the afternoon in the hemodialysis unit. He is receiving an extra treatment today for further fluid removal. He offers no complaints and his dialysis is uneventful. OBJECTIVE: VITAL SIGNS: Temperature 98.1, pulse 62, respiratory rate 20, blood pressure 165/76, saturating 97% on trach collar. GENERAL: Patient is seen awake, alert and at baseline mentation in no apparent distress. HEENT: Extraocular muscles are intact. Tongue is moist. There is a tracheostomy. HEART: Sounds are regular S1, S2. LUNGS: Anterior auscultation only. Symmetric air entry. No crackle or rale. ABDOMEN: Very obese, soft and nontender. EXTREMITIES: Show dependent edema and tract to 1+ peripheral edema. His feet are in Waffle boots. He is chronically bedridden. NEUROLOGIC: He is at baseline mentation. He attempts to communicate by mouthing words. TODAY'S LABORATORY STUDIES: White count 9.1, hemoglobin 11.0, platelets 153,000. Sodium 135, potassium 4.7, bicarbonate 25. IMAGING: Chest x-ray done on 12/22/2020 shows no pulmonary edema. INPATIENT MEDICATIONS: Reviewed by myself. His I.V. Zosyn and Vancomycin were discontinued. His Methylprednisolone was discontinued. He was started on prednisone 40 mg p.o. daily taper. The remainder of his medications are unchanged as compared to yesterday. PROBLEMS: 1. End-stage renal disease on hemodialysis on a Wednesday, , Wednesday schedule: The patient is receiving an extra session today for further ultrafiltration and fluid removal because he has been complaining of increased secretions and we wanted to optimize him from a respiratory point of view. He will receive his usual dialysis treatment on Wednesday. 2.5 liters were taken off with his extra treatment today. His electrolytes are acceptable. His fistula is in good use. 2. Anemia of chronic renal failure: His hemoglobin is at goal. Continue with current Aranesp. 3. Hypotension of hemodialysis: Continue Midodrine pre-dialysis. Blood pressures have been stable. He is tolerating fluid removal. 4. Physical debility, morbid obesity and chronic respiratory failure; status post tracheostomy: Patient is pending placement at [facility].
[2020-12-24] MEDS: ALBUTEROL SULFATE 2.5 MG/0.5 ML INH NEB SOLN NEB PRN (03:24)
[2020-12-24 06:00] VITALS: BP 119/57
[2020-12-24 06:22] LABS: HEMATOCRIT 38.8 % (42.0-52.0); HEMOGLOBIN 10.9 g/dl (13.5-17.5); MEAN CORPUSCULAR HEMOGLOBIN 29.1 pg (27.0-33.0); MEAN CORPUSCULAR HGB CONC 28.1 g/dl (32.0-36.5); MEAN CORPUSCULAR VOLUME 103.7 fl (80.0-96.0); PLATELET COUNT, AUTOMATED 150 10^3/uL (150-450); RED BLOOD COUNT 3.74 10^6/uL (4.30-6.10); WHITE BLOOD COUNT 9.5 10^3/uL (4.0-10.0)
[2020-12-24] MEDS: HEPARIN SOD (PORCINE) 5000UNITS/ML 1ML VIAL/SYRINGE SQ SCH ×2 (06:22→22:15)
[2020-12-24] MEDS: SERTRALINE 100 MG TAB PO SCH (06:23)
[2020-12-24] MEDS: AMIODARONE 200 MG TAB (PACERONE) PO SCH (06:23)
[2020-12-24] MEDS: guaiFENesin SYRUP 200 MG/10 ML UDC PO SCH ×4 (06:23→23:44)
[2020-12-24] MEDS: PANTOPRAZOLE 40MG TAB (PROTONIX) PO SCH (06:24)
[2020-12-24] MEDS: levETIRAcetam 250MG TABLET (KEPPRA) PO SCH (06:24)
[2020-12-24] MEDS: VITAMIN D 1,000 INTERNATIONAL UNITS TABLET PO SCH (06:24)
[2020-12-24 06:49] LABS: CALCIUM LEVEL 8.1 MG/DL (8.5-10.1); CREATININE FOR GFR 6.95 MG/DL (0.70-1.30); GLOMERULAR FILTRATION RATE 9.1 (>60); POTASSIUM SERUM 4.7 MEQ/L (3.5-5.1)
[2020-12-24] MEDS: BUDESONIDE 0.5 MG/2 ML INHALATION SUSPENSION INH SCH ×2 (07:18→20:13)
[2020-12-24] MEDS: ALBUTEROL SULFATE 2.5 MG/0.5 ML INH NEB SOLN NEB SCH ×4 (07:18→20:08)
[2020-12-24] MEDS: FORMOTEROL FUMARATE 20 MCG/2 ML INHALATION SOLUTION (PERFOROMIST) INH SCH ×2 (07:20→20:09)
[2020-12-24] MEDS: MIDODRINE 5 MG TAB PO SCH (07:58)
[2020-12-24] MEDS: predniSONE 10 MG TAB PO SCH (07:59)
[2020-12-24] MEDS: (RENVELA) SEVELAMER **CARBONate** 800 MG TAB PO SCH ×3 (07:59→18:23)
[2020-12-24] MEDS: DIMETHICONE 2% OINTMENT(VANICREAM) 70GM TUBE TOP SCH ×2 (07:59→22:15)
[2020-12-24] MEDS: NYSTATIN 100,000 UNITS/GM TOPICAL PWD 15 GM TOP SCH (08:00)
[2020-12-24] MEDS ORDERED: SODIUM CHLORIDE 0.9% 1000ML IV PRN (08:00)
[2020-12-24] MEDS: BOUDREAUX'S BUTT PASTE TOP SCH (08:00)
[2020-12-24] MEDS ORDERED: LIDOCAINE 1% SDV 5ML VIAL SC PRN (08:00)
[2020-12-24 14:00] VITALS: BP 186/75
[2020-12-24 15:02] VITALS: BP 120/60
--- NOTE | 2020-12-24 17:47 | IPNPDOC ---
Date Seen The patient was seen on 12/24/20. Progress Note SUBJECTIVE: Patient was seen and examined +. Doing well. No acute events overnight. Continues to have some significant secretions from the trach. Received dialysis extra session today, but on 12/24/20. Despite dialysis. Patient continues to have copious secretions requiring suctioning every 4-6 hours. Less. Feels well. No chest pain or seizures of breath, no palpitations. Appetite is good. OBJECTIVE PHYSICAL EXAMINATION: Physical exam LABORATORY DATA, IMAGING STUDIES, MICROBIOLOGY: Please see below. DVT prophylaxis ordered?: ASSESSMENT AND PLAN: Mr. Richard is a 50-year-old male with prolonged hospital course. On 12/13/2020, patient had increased dyspnea. This concerns that patient had either COPD or pneumonia. Pro calcitonin was elevated at 2.6. Sputum culture grew MRSA and pseudomonas aeruginosa. Patient is on vancomycin and Zosyn and on Solu-Medrol. Patient had a total of 9 days of antibiotics. Pro calcitonin may still be falsely elevated due to end-stage renal disease on dialysis. Patient's vital signs have been stable. No increase in oxygen requirement and no increase in leukocytosis. We'll wean off of steroids. Otherwise, spoke with Dr. Ortega. Recommends changing trach every 3 months. Next change to be 02/06/2021 PROBLEMS: 1. Chronic hypoxic and hypercapnic respiratory failure Secondary to restrictive lung disease from obesity Has a trach. Spoke with Dr. Ortega. Recommend changing in 3 months. Plan to exchange on 02/06/2021 Increased dyspnea on 12/13/2020. Possible COPD exacerbation. Pro calcitonin is elevated at 2. Patient on Zosyn, vancomycin, and Solu-Medrol Pro calcitonin may have been falsely elevated due to end-stage renal disease. Patient had antibiotics for 9 days. DC. On prednisone taper 2. Morbid obesity BMI 52.5 Contributing to his restrictive lung disease and complicating care 3. Severe spinal stenosis Continue pain regimen 4. End-stage renal disease on hemodialysis Neurology following and recommendations appreciated Continue with dialysis 5. GERD Continue PPI 6. Depression/anxiety Continue sertraline and clonazepam 7. Paroxysmal atrial fibrillation Continue amiodarone 8. Seizure disorder Continue Keppra 9. Hypotension Continue medication on dialysis days 10. Anemia Stable Receives Aranesp at dialysis 11. Debility Chronically bedridden Pending placement at [facility] 12. DVT prophylaxis Heparin subcutaneous VS, I&O, 24H, Fishbonsugar Vital Signs/I&O Vital Signs Date Time Temp Pulse Resp B/P (MAP) Pulse Ox O2 Delivery O2 Flow Rate FiO2 12/24/20 15:02 120/60 (80) 12/24/20 14:00 99.0 78 20 94 Room Air 12/24/20 08:00 5.0 28 I&O- Last 24 Hours up to 6 AM 12/24/20 06:00 Intake Total 1680 ml Output Total 2500 ml Balance -820 ml Laboratory Data 24H LABS Laboratory Tests 2 12/24/20 06:05: Nucleated Red Blood Cells % (auto) 0.2H, Anion Gap 10, Glomerular Filtration Rate 9.1L, Calcium Level 8.1L CBC/BMP Laboratory Tests 12/24/20 06:05 KENYON ALCALA MD Dec 24, 2020 17:47
[2020-12-24 22:00] VITALS: BP 175/75
[2020-12-24] MEDS: clonazePAM 0.5 MG TAB PO PRN (22:13)
[2020-12-24] MEDS: SENOKOT S TAB PO SCH (22:13)
[2020-12-24] MEDS: oxyCODONE 5MG TAB PO PRN (22:14)
[2020-12-24] MEDS: DIAPER RELIEF PASTE (DESITIN) 60GM TOP SCH (22:14)
[2020-12-24] MEDS: PRAMIPEXOLE (MIRAPEX) 0.125 MG TAB PO SCH (22:14)
--- NOTE | 2020-12-25 00:27 | IPN ---
INPATIENT PROGRESS NOTE DATE: 12/24/2020 SUBJECTIVE: Patient is seen and examined in the hemodialysis unit receiving his maintenance treatment. He reports that his sensation of dyspnea has improved. He offers no other complaints. OBJECTIVE: VITAL SIGNS: Temperature 99.0, pulse 78, respiratory rate 20, blood pressure 120/60, saturating 94% on trach collar. INTAKE/OUTPUT: Intake yesterday was 1.3 liters. Dialysis today removed 3.5 liters. Dialysis yesterday removed 2.5 liters. Weight in the bed scale today is not recorded. GENERAL: Patient is seen in the hemodialysis unit receiving his treatment, awake, alert, oriented and at baseline mentation in no apparent distress. HEENT: Extraocular muscles are intact. Tongue is moist. Status post tracheostomy. HEART: Sounds are regular S1, S2. LUNGS: Anterior auscultation only. Symmetric air entry. No crackle or rale. No tachypnea. No accessory muscle use. ABDOMEN: Very obese, soft and nontender. There is some dependent edema. EXTREMITIES: Show 1+ peripheral edema. Feet are in Waffle boots. He is chronically bedridden. There is a right arm fistula, which is patent and in use. NEUROLOGIC: He is at baseline mentation. He attempts to communicate by mouthing and he wiggles his toes on command. LABORATORY STUDIES: White count 9.5, hemoglobin 10.9, platelets 150,000. Sodium 137, potassium 4.7, bicarbonate 25. INPATIENT MEDICATIONS: Reviewed by myself. Noted that he is on prednisone 40 mg daily with taper. The remainder of his medications are unchanged as compared to yesterday. PROBLEMS: 1. End-stage renal disease on hemodialysis on a Wednesday, , Wednesday schedule: He received an extra treatment yesterday for further optimization of his volume status because he was having increasing secretions and was complaining of shortness of breath and we wanted to optimize him from a respiratory point of view. 2.5 liters were removed yesterday and 3.5 liters were removed with his regular treatment today. His electrolytes are acceptable. His fistula is in good use. Next dialysis will be on . 2. Anemia of chronic renal failure: Hemoglobin is at goal, continue with current dose of Aranesp. 3. Hypotension of hemodialysis: He has been tolerating fluid removal without issue. Continue Midodrine pre-dialysis. 4. Secondary hyperparathyroidism of renal origin: He continues on Sevelamer phosphorus binder and it has been a month since his parathyroid hormone was checked and it has been up trending. I will order repeat level for tomorrow.
[2020-12-25] MEDS: ALBUTEROL SULFATE 2.5 MG/0.5 ML INH NEB SOLN NEB PRN (01:13)
[2020-12-25] MEDS: guaiFENesin SYRUP 200 MG/10 ML UDC PO SCH ×3 (05:41→17:43)
[2020-12-25 06:00] VITALS: BP 168/67
[2020-12-25 06:16] LABS: HEMATOCRIT 37.2 % (42.0-52.0); HEMOGLOBIN 10.7 g/dl (13.5-17.5); MEAN CORPUSCULAR HEMOGLOBIN 29.6 pg (27.0-33.0); MEAN CORPUSCULAR HGB CONC 28.8 g/dl (32.0-36.5); MEAN CORPUSCULAR VOLUME 102.8 fl (80.0-96.0); PLATELET COUNT, AUTOMATED 155 10^3/uL (150-450); RED BLOOD COUNT 3.62 10^6/uL (4.30-6.10); WHITE BLOOD COUNT 10.9 10^3/uL (4.0-10.0)
[2020-12-25 06:38] LABS: CALCIUM LEVEL 8.3 MG/DL (8.5-10.1); CREATININE FOR GFR 5.33 MG/DL (0.70-1.30); GLOMERULAR FILTRATION RATE 12.3 (>60); POTASSIUM SERUM 4.3 MEQ/L (3.5-5.1)
[2020-12-25] MEDS: FORMOTEROL FUMARATE 20 MCG/2 ML INHALATION SOLUTION (PERFOROMIST) INH SCH ×2 (07:23→20:51)
[2020-12-25] MEDS: BUDESONIDE 0.5 MG/2 ML INHALATION SUSPENSION INH SCH ×2 (07:23→20:53)
[2020-12-25] MEDS: ALBUTEROL SULFATE 2.5 MG/0.5 ML INH NEB SOLN NEB SCH ×4 (07:24→20:56)
[2020-12-25] MEDS: (RENVELA) SEVELAMER **CARBONate** 800 MG TAB PO SCH ×3 (08:52→17:43)
[2020-12-25] MEDS: VITAMIN D 1,000 INTERNATIONAL UNITS TABLET PO SCH (08:52)
[2020-12-25] MEDS: PANTOPRAZOLE 40MG TAB (PROTONIX) PO SCH (08:53)
[2020-12-25] MEDS: predniSONE 10 MG TAB PO SCH (08:53)
[2020-12-25] MEDS: levETIRAcetam 250MG TABLET (KEPPRA) PO SCH (08:53)
[2020-12-25] MEDS: AMIODARONE 200 MG TAB (PACERONE) PO SCH (08:54)
[2020-12-25] MEDS: SERTRALINE 100 MG TAB PO SCH (08:54)
[2020-12-25] MEDS: DIMETHICONE 2% OINTMENT(VANICREAM) 70GM TUBE TOP SCH (08:58)
[2020-12-25] MEDS: NYSTATIN 100,000 UNITS/GM TOPICAL PWD 15 GM TOP SCH (08:58)
[2020-12-25] MEDS: DIAPER RELIEF PASTE (DESITIN) 60GM TOP SCH (08:58)
[2020-12-25] MEDS: oxyCODONE 5MG TAB PO PRN ×2 (09:08→21:50)
[2020-12-25] MEDS: clonazePAM 0.5 MG TAB PO PRN ×2 (09:08→21:47)
[2020-12-25] MEDS: HEPARIN SOD (PORCINE) 5000UNITS/ML 1ML VIAL/SYRINGE SQ SCH (09:31)
[2020-12-25 09:47] LABS: PTH INTACT 1061.7 PG/ML (18.5-88.0)
[2020-12-25] MEDS: CALCITRIOL 0.25 MCG CAP (S0169) PO SCH (10:41)
[2020-12-25] MEDS ORDERED: clonazePAM 0.5 MG TAB PO PRN (13:00)
--- NOTE | 2020-12-25 13:44 | IPNPDOC ---
Date Seen The patient was seen on 12/25/20. Progress Note SUBJECTIVE: Patient was seen and examined overnight. Doing well. No acute events overnight. Required to be suctioned only twice. No fevers overnight. OBJECTIVE PHYSICAL EXAMINATION: VITAL SIGNS: please see below General: NAD, comfortable HEENT: PERRLA, EOMI, sclerae clear Neck: supple, normal ROM, no JVD. Trach with collar Respiratory: lungs CTAB, no wheeze, no rales, no crackles CVS: RRR, normal S1, S2, no murmurs Abdo: soft, no masses, no hepatosplenomegaly, BS+, no rebound tenderness Extremities: trace edema MSK: no joint deformities, normal ROM Neuro: no focal neuro deficits, moving all 4 extremities, CN2-12 intact. Strength 5/5 in all 4 extremities. No nystagmus. Psych: calm, cooperative, AAO x 3 LABORATORY DATA, IMAGING STUDIES, MICROBIOLOGY: Please see below. DVT prophylaxis ordered?: ASSESSMENT AND PLAN: Mr. Richard is a 50-year-old male with prolonged hospital course. On 12/13/2020, patient had increased dyspnea. This concerns that patient had either COPD or pneumonia. Pro calcitonin was elevated at 2.6. Sputum culture grew MRSA and pseudomonas aeruginosa. Patient is on vancomycin and Zosyn and on Solu-Medrol. Patient had a total of 9 days of antibiotics. Pro calcitonin may still be falsely elevated due to end-stage renal disease on dialysis. Patient's vital signs have been stable. No increase in oxygen requirement and no increase in leukocytosis. We'll wean off of steroids. Otherwise, spoke with Dr. Ortega. Recommends changing trach every 3 months. Next change to be 02/06/2021 PROBLEMS: 1. Chronic hypoxic and hypercapnic respiratory failure Secondary to restrictive lung disease from obesity Has a trach. Spoke with Dr. Ortega. Recommend changing in 3 months. Plan to exchange on 02/06/2021 Increased dyspnea on 12/13/2020. Possible COPD exacerbation. Pro calcitonin is elevated at 2. Patient on Zosyn, vancomycin, and Solu-Medrol Pro calcitonin may have been falsely elevated due to end-stage renal disease. Patient had antibiotics for 9 days. DC. On prednisone taper - secretions have improved 2. Morbid obesity BMI 52.5 Contributing to his restrictive lung disease and complicating care 3. Severe spinal stenosis Continue pain regimen 4. End-stage renal disease on hemodialysis Neurology following and recommendations appreciated Continue with dialysis 5. GERD Continue PPI 6. Depression/anxiety Continue sertraline and clonazepam 7. Paroxysmal atrial fibrillation Continue amiodarone 8. Seizure disorder Continue Keppra 9. Hypotension Continue medication on dialysis days - has had midodrine with dialysis but has recently been hypertensive - will communicate to nephrology to perhaps use as prn 10. Anemia Stable Receives Aranesp at dialysis 11. Debility Chronically bedridden Pending placement at [facility] 12. DVT prophylaxis Heparin subcutaneous VS, I&O, 24H, Fishbone Vital Signs/I&O Vital Signs Date Time Temp Pulse Resp B/P (MAP) Pulse Ox O2 Delivery O2 Flow Rate FiO2 12/25/20 10:30 20 12/25/20 06:00 98.0 83 168/67 (100) 92 Trach Collar 5.0 28 I&O- Last 24 Hours up to 6 AM 12/25/20 06:00 Intake Total 1080 ml Output Total 3500 ml Balance -2420 ml Laboratory Data 24H LABS Laboratory Tests 2 12/25/20 05:36: Nucleated Red Blood Cells % (auto) 0.0, Anion Gap 10, Glomerular Filtration Rate 12.3L, Calcium Level 8.3L, Parathyroid Hormone (Intact) 1061.7H CBC/BMP Laboratory Tests 12/25/20 05:36 KENYON ALCALA MD Dec 25, 2020 13:44
[2020-12-25 14:00] VITALS: BP 165/81
--- NOTE | 2020-12-25 16:49 | CR ---
CONSULTATION DATE: 12/25/2020 CONSULTATION REQUESTED BY: Dr. Mane HISTORY OF PRESENT ILLNESS: This is an unfortunate 50-year-old male, essentially incapacitated, on dialysis, nonambulatory, advanced chronic obstructive pulmonary disease (COPD), tracheotomy, cardiac issues in the past who requires Elizabeth lift to be moved in and out of bed. The patient has incontinent-associated dermatitis (IAD), which is a subdivision of moisture-associated skin damage (MASD). This should be differentiated from pressure injuries for the following reasons. These are diffuse erythematous, blanchable lesions, not completely associated to location over bony prominences. Patient had a history of diarrhea when he was on antibiotics for treatment of a pneumonia. The patient is not incontinent of urine, as he is on dialysis and does not make urine. Treatment for this type of condition is to cleanse the skin, especially after bowel movements, with a moist warm-water washcloth, utilizing a mild soap, preferably Jordan's Baby Shampoo, which has surfactant, then rinsing the soap off and applying Vashe wound cleanser for 10 minutes. Next, Cavilon Advanced Tissue Barium Cream, which is a clear liquid and comes in a hand sprayer as well, should be applied to the entire area. Change in position is required, although I am told the patient does not like to be moved. There is no indication to apply foam dressings, as this is not a full-thickness wound. The types of foam dressings in the hospital at this time have an adhesive throughout the dressing and are not appropriate. If Cavilon Advanced Tissue Protective is not available, Desitin can be used. This does not have to be wiped off on each dressing change. This is zinc oxide with cod liver oil and is a skin protector. That is the treatment for his condition. If he does have loose stool, Metamucil, which is not a laxative but a bulk additive, can be used. This will absorb water from the gut and give more consistency to the bowel movement. It should be kept in mind that incontinent-associated dermatitis or moisture-associated skin damage can place the skin at significant risk for breakdown and can lead to pressure injuries. These are characterized by localized full-thickness wounds over a bony prominence. Treatment for them is quite different, and the basic treatment is avoiding this from happening. Patient does have heel float boots, which is important, and inspection of the heels show no evidence of deep tissue injury or stage I pressure injuries. Additionally, avoiding cleaning with harsh soaps which change the pH can also damage the skin. Normally the skin has an acid mantle, and the pH should be in the range of 5-6. Alkaline soaps or changing the pH of the skin can cause further damage. Thank you for this consult.
[2020-12-25] MEDS: PRAMIPEXOLE (MIRAPEX) 0.125 MG TAB PO SCH (21:46)
[2020-12-25] MEDS: SENOKOT S TAB PO SCH (21:46)
[2020-12-25 22:00] VITALS: BP_SYST 165; BP_SYST 174; BP_DIAS 80; BP_DIAS 83
[2020-12-26] MEDS: DIMETHICONE 2% OINTMENT(VANICREAM) 70GM TUBE TOP SCH ×3 (00:17→22:03)
[2020-12-26] MEDS: guaiFENesin SYRUP 200 MG/10 ML UDC PO SCH ×4 (00:18→17:58)
[2020-12-26] MEDS: HEPARIN SOD (PORCINE) 5000UNITS/ML 1ML VIAL/SYRINGE SQ SCH ×3 (00:19→22:04)
[2020-12-26] MEDS: ALBUTEROL SULFATE 2.5 MG/0.5 ML INH NEB SOLN NEB PRN ×2 (00:52→04:35)
[2020-12-26 06:00] VITALS: BP 147/71
[2020-12-26] MEDS: (RENVELA) SEVELAMER **CARBONate** 800 MG TAB PO SCH ×3 (06:25→17:58)
[2020-12-26] MEDS: predniSONE 10 MG TAB PO SCH (06:26)
[2020-12-26] MEDS: PANTOPRAZOLE 40MG TAB (PROTONIX) PO SCH (06:26)
[2020-12-26] MEDS: clonazePAM 0.5 MG TAB PO PRN ×2 (06:26→17:58)
[2020-12-26] MEDS: SERTRALINE 100 MG TAB PO SCH (06:27)
[2020-12-26] MEDS: oxyCODONE 5MG TAB PO PRN ×2 (06:27→22:05)
[2020-12-26] MEDS: VITAMIN D 1,000 INTERNATIONAL UNITS TABLET PO SCH (06:27)
[2020-12-26] MEDS: levETIRAcetam 250MG TABLET (KEPPRA) PO SCH (06:28)
[2020-12-26] MEDS: AMIODARONE 200 MG TAB (PACERONE) PO SCH (06:28)
[2020-12-26 06:43] LABS: PHOSPHORUS LEVEL 7.8 MG/DL (2.5-4.9)
[2020-12-26] MEDS: ALBUTEROL SULFATE 2.5 MG/0.5 ML INH NEB SOLN NEB SCH ×4 (07:24→20:22)
[2020-12-26] MEDS: BUDESONIDE 0.5 MG/2 ML INHALATION SUSPENSION INH SCH ×2 (07:24→20:19)
[2020-12-26] MEDS: FORMOTEROL FUMARATE 20 MCG/2 ML INHALATION SOLUTION (PERFOROMIST) INH SCH ×2 (07:24→20:14)
[2020-12-26 07:56] LABS: BASO % 0.1 % (0.0-1.0); EOS # 0.1 10^3/uL (0.0-0.5); EOS % 1.3 % (0.0-3.0); HEMOGLOBIN 10.9 g/dl (13.5-17.5); LYMPH % 22.1 % (24.0-44.0); MEAN CORPUSCULAR HEMOGLOBIN 29.6 pg (27.0-33.0); MEAN CORPUSCULAR HGB CONC 28.7 g/dl (32.0-36.5); MEAN CORPUSCULAR VOLUME 103.3 fl (80.0-96.0); MONO # 0.4 10^3/uL (0.0-0.8); MONO % 4.8 % (2.0-8.0); NEUTROPHILS # 6.4 10^3/uL (1.5-8.5); PLATELET COUNT, AUTOMATED 147 10^3/uL (150-450); RED BLOOD COUNT 3.68 10^6/uL (4.30-6.10)
[2020-12-26 08:00] LABS: ALBUMIN 3.1 GM/DL (3.2-5.2); BILIRUBIN,TOTAL 0.4 MG/DL (0.2-1.0); CALCIUM LEVEL 8.2 MG/DL (8.5-10.1); CREATININE FOR GFR 6.41 MG/DL (0.70-1.30); GLOMERULAR FILTRATION RATE 9.9 (>60); MAGNESIUM LEVEL 2.5 MG/DL (1.8-2.4); POTASSIUM SERUM 4.9 MEQ/L (3.5-5.1); TOTAL PROTEIN 6.5 GM/DL (6.4-8.2)
[2020-12-26] MEDS ORDERED: LIDOCAINE 1% SDV 5ML VIAL SC PRN (08:20)
[2020-12-26] MEDS ORDERED: SODIUM CHLORIDE 0.9% 1000ML IV PRN (08:20)
--- NOTE | 2020-12-26 09:01 | IPN ---
NEPHROLOGY PROGRESS NOTE DATE: 12/25/2020 SUBJECTIVE: Matthew is seen and examined this morning at the bedside. He was dialyzed the past 2 days in a row and a total of 6 liters of fluid were removed. He denies any recurrent sensation of shortness of breath. His parathyroid hormone level has increased significantly and blood pressures have been elevated as well. He required a dose of Amlodipine overnight. OBJECTIVE: PHYSICAL EXAMINATION: VITAL SIGNS: Temperature 97.9, pulse 88, respiratory rate 19, blood pressure 165/81, saturating 91-92% on trach collar. INTAKE AND OUTPUT: Intake yesterday was not fully recorded. Dialysis yesterday removed 3.5 liters. Weight in the bed scale is not recorded. GENERAL APPEARANCE: The patient is seen morbidly obese, middle aged male lying in bed, chronically bedridden, in no apparent distress, eating while he plays on his Ipad. HEENT: The extraocular muscles are intact. Tongue is moist. Status post tracheostomy. HEART: Regular, S1, S2. LUNGS: Anterior auscultation only, symmetric air entry, no crackles or rales. No tachycardia, no accessory muscle use. ABDOMEN: Very obese, soft and nontender. There is some dependent edema. EXTREMITIES: Feet in waffle boots and he is chronically bedridden. There is a right arm fistula which is patent. NEUROLOGICAL: He is at baseline mentation. He attempts to communicate by mouthing and he wiggles his toes on command. LABORATORY STUDIES: Today's laboratory studies show white count 10.9, hemoglobin 10.7, platelet count 155. Sodium 137, potassium 4.3. Parathyroid hormone is 1,061. CURRENT INPATIENT MEDICATIONS: I started the patient on Calcitriol 0.25 mcg every other day. He received a one-time dose of Amlodipine overnight. His Clonazepam was adjusted by the Primary Service. I discontinued his pre dialysis Midodrine. His Prednisone is being tapered. The remainder of medications are unchanged as compared to prior. PROBLEMS: 1. End-stage renal disease on hemodialysis on Wednesday, , Wednesday schedule he was dialyzed back to back Wednesday and Wednesday with a total of 6 liters removed over the 2 days to further optimize his volume status because he was complaining of increased shortness of breath. His next dialysis will be on . His electrolytes are acceptable. His fistula is in good use. 2. Anemia of chronic renal failure - hemoglobin is at goal. Continue current dose of Aranesp. 3. Hypotension of hemodialysis - The patient has not had any current episodes of hypotension. Indeed we were able to remove 6 liters over the past 2 treatments back to back. I am going to stop the pre dialysis Midodrine. His blood pressures have been high and he did receive one dose of Amlodipine last night. I am not going to put him on any standing hypertensive agent at present. 4. Secondary hyperparathyroidism of renal origin parathyroid hormone level has increased over the past few months and is more than 1,000 now. I am restarting him on Calcitriol and he continues on Sevelamer phosphorous binder. 5. Steroid taper Primary Team is tapering with steroids that he was getting for possible COPD exacerbation. The steroid might also be contributing to his elevated blood pressures.
[2020-12-26] MEDS: DARBEPOETIN 200MCG/0.4ML *DIALYSIS* SYRINGE (J0882 PER 1MCG) IV SCH (09:17)
--- NOTE | 2020-12-26 10:04 | IPNPDOC ---
Date Seen The patient was seen on 12/26/20. Progress Note SUBJECTIVE: Patient was seen and examined overnight. Doing well. No acute events overnight. Secretions in trach have diminishes, patient has not acute complaints. OBJECTIVE PHYSICAL EXAMINATION: VITAL SIGNS: please see below General: NAD, comfortable HEENT: PERRLA, EOMI, sclerae clear Neck: supple, normal ROM, no JVD. Trach with collar Respiratory: lungs CTAB, no wheeze, no rales, no crackles CVS: RRR, normal S1, S2, no murmurs Abdo: soft, no masses, no hepatosplenomegaly, BS+, no rebound tenderness Extremities: trace edema MSK: no joint deformities, normal ROM Neuro: no focal neuro deficits, moving all 4 extremities, CN2-12 intact. Psych: calm, cooperative, AAO x 3 LABORATORY DATA, IMAGING STUDIES, MICROBIOLOGY: Please see below. DVT prophylaxis ordered?: ASSESSMENT AND PLAN: Mr. Richard is a 50-year-old male with prolonged hospital course. On 12/13/2020, patient had increased dyspnea. This concerns that patient had either COPD or pneumonia. Pro calcitonin was elevated at 2.6. Sputum culture grew MRSA and pseudomonas aeruginosa. Patient is on vancomycin and Zosyn and on Solu-Medrol. Patient had a total of 9 days of antibiotics. Pro calcitonin may still be falsely elevated due to end-stage renal disease on dialysis. Patient's vital signs have been stable. No increase in oxygen requirement and no increase in leukocytosis. We'll wean off of steroids. Otherwise, spoke with Dr. Ortega. Recommends changing trach every 3 months. Next change to be 02/06/2021 PROBLEMS: 1. Chronic hypoxic and hypercapnic respiratory failure -Secondary to restrictive lung disease from obesity -Has a trach. Spoke with Dr. Ortega. Recommend changing in 3 months. Plan to exchange on 02/06/2021 -Increased dyspnea on 12/13/2020. Possible COPD exacerbation. Pro calcitonin is elevated at 2. Patient on Zosyn, vancomycin, and Solu-Medrol -Pro calcitonin may have been falsely elevated due to end-stage renal disease. Patient had antibiotics for 9 days. DC. -On prednisone taper - secretions have improved 2. Morbid obesity BMI 52.5 Contributing to his restrictive lung disease and complicating care 3. Severe spinal stenosis Continue pain regimen 4. Incontinence-associated dermatitis/moisture associated skin damage - wound consult provided by Dr. Goncalves on 12/25/20 - wound care instructions are ordered. Clean with [employer] baby shampoo, vashe for 10 min, appy interdry. - bilateral heel float boots, ABD pad under straps to protect skin on top of boot 5. End-stage renal disease on hemodialysis/secondary hyperparathyroidism Neurology following and recommendations appreciated - midodrine has been discontinued by nephrology service as patient's BP have been elevated Continue with dialysis Tue,Thus, Sat - PTH > 1000. Started on calcitriol and sevelamer. 6. GERD Continue PPI 7. Depression/anxiety Continue sertraline and clonazepam 8. Paroxysmal atrial fibrillation Continue amiodarone 9. Seizure disorder Continue Keppra 10. Hypotension Continue medication on dialysis days - has had midodrine with dialysis but has recently been hypertensive - will communicate to nephrology to perhaps use as prn 11. Anemia Stable Receives Aranesp at dialysis 12. Debility Chronically bedridden Pending placement at half-way 13. Anxiety - increased clonazepam to 0.5 mg TID prn 14. DVT prophylaxis Heparin subcutaneous Dispo: pending placement to facility with HD chair as well as appropriate trach care. Will place patient back to [facility]C status. VS, I&O, 24H, [place]ugar Vital Signs/I&O Vital Signs Date Time Temp Pulse Resp B/P (MAP) Pulse Ox O2 Delivery O2 Flow Rate FiO2 12/26/20 08:00 16 12/26/20 06:27 Trach Collar 5.0 28 12/26/20 06:00 96.9 74 147/71 (96) 95 I&O- Last 24 Hours up to 6 AM 12/26/20 06:00 Intake Total 975 ml Output Total 0 ml Balance 975 ml Laboratory Data 24H LABS Laboratory Tests 2 12/26/20 05:58: Immature Granulocyte % (Auto) 0.7, Neutrophils (%) (Auto) 71.0H, Lymphocytes (%) (Auto) 22.1L, Monocytes (%) (Auto) 4.8, Eosinophils (%) (Auto) 1.3, Basophils (%) (Auto) 0.1, Neutrophils # (Auto) 6.4, Lymphocytes # (Auto) 2.0, Monocytes # (Auto) 0.4, Eosinophils # (Auto) 0.1, Basophils # (Auto) 0.0, Nucleated Red Blood Cells % (auto) 0.0 12/26/20 06:01: Anion Gap 10, Glomerular Filtration Rate 9.9L, Calcium Level 8.2L, Phosphorus Level 7.8H, Magnesium Level 2.5H, Total Bilirubin 0.4, Aspartate Amino Transf (AST/SGOT) 14, Alanine Aminotransferase (ALT/SGPT) 28, Alkaline Phosphatase 84, Total Protein 6.5, Albumin 3.1L, Albumin/Globulin Ratio 0.9 CBC/BMP Laboratory Tests 12/26/20 05:58 12/26/20 06:01 KENYON ALCALA MD Dec 26, 2020 10:04
--- NOTE | 2020-12-26 20:19 | IPN ---
INPATIENT PROGRESS NOTE DATE: 12/26/2020 SUBJECTIVE: Matthew is seen and examined this morning in the hemodialysis unit receiving his maintenance treatment. He offers no complaints. Goal fluid removal was increased to 4 liters at the request of the patient. OBJECTIVE: VITAL SIGNS: Temperature 96.9, pulse 74, respiratory rate 18, blood pressure 147/71, saturating 95% on trach collar. INTAKE/OUTPUT: Intake yesterday was not fully recorded. Weight in the bed scale today is also not recorded. Dialysis today removed 4 liters. GENERAL: Patient is seen in the hemodialysis unit receiving his treatment, awake, alert, at baseline mentation, eating and playing with his IPAD. HEENT: Extraocular muscles are intact. Tongue is moist. There is a tracheostomy. HEART: Sounds are regular S1, S2. LUNGS: There are diminished breath sounds secondary to body habitus, but no crackle or rale. ABDOMEN: Very obese, soft and nontender. EXTREMITIES: Show feet in Waffle boots and right arm fistula is presently in use. He is chronically bedridden. NEUROLOGIC: He is awake, alert, oriented, at baseline mentation and attempts to communicate by mouthing. SKIN: Normal temperature and turgor. LABORATORY STUDIES: Hemoglobin 10.9, platelets 147,000. Sodium 138, potassium 4.9. Phosphorus 7.8. Parathyroid hormone 1,061. INPATIENT MEDICATIONS: Reviewed by myself. His Klonopin was adjusted by the primary service. The remainder of his medications are all unchanged as compared to yesterday. His prednisone taper continues. PROBLEMS: 1. End-stage renal disease on hemodialysis on a Wednesday, , Wednesday schedule: Patient had an extra dialysis treatment this week on Wednesday and today we increased his goal fluid removal to 4 liters. He has had increased fluid removal this week because he was complaining of shortness of breath several days ago and he now reports that this has resolved. He is also on a prednisone taper by the primary service. His electrolytes are acceptable. His volume status is compensated. Fistula is in good use. 2. Anemia of chronic renal failure: Hemoglobin is at goal, continue current dose of Aranesp. 3. Hypotension of hemodialysis: Midodrine was stopped yesterday because the patient's blood pressures were noted to be elevated on non-dialysis days and he was not having any trouble with fluid removal on hemodialysis. He was dialyzed today without Midodrine without issue. 4. Secondary hyperparathyroidism of renal origin: Parathyroid hormone level has increased over the past four months and is more than 1,000. He was restarted on Calcitriol every other day and he continues on Sevelamer phosphorus binder. His phosphorus is high. He continues to intermittently refuse dosages.
[2020-12-26] MEDS: SENOKOT S TAB PO SCH (22:03)
[2020-12-26] MEDS: PRAMIPEXOLE (MIRAPEX) 0.125 MG TAB PO SCH (22:03)
[2020-12-27] MEDS: ALBUTEROL SULFATE 2.5 MG/0.5 ML INH NEB SOLN NEB PRN ×2 (00:13→03:50)
[2020-12-27] MEDS: guaiFENesin SYRUP 200 MG/10 ML UDC PO SCH ×4 (00:20→17:36)
[2020-12-27 06:00] VITALS: BP 148/72
[2020-12-27] MEDS: FORMOTEROL FUMARATE 20 MCG/2 ML INHALATION SOLUTION (PERFOROMIST) INH SCH ×2 (07:06→19:51)
[2020-12-27] MEDS: ALBUTEROL SULFATE 2.5 MG/0.5 ML INH NEB SOLN NEB SCH ×4 (07:06→19:51)
[2020-12-27] MEDS: BUDESONIDE 0.5 MG/2 ML INHALATION SUSPENSION INH SCH ×2 (07:06→19:50)
[2020-12-27] MEDS: (RENVELA) SEVELAMER **CARBONate** 800 MG TAB PO SCH ×3 (09:21→17:36)
[2020-12-27] MEDS: HEPARIN SOD (PORCINE) 5000UNITS/ML 1ML VIAL/SYRINGE SQ SCH ×2 (09:23→21:13)
[2020-12-27] MEDS: SERTRALINE 100 MG TAB PO SCH (09:24)
[2020-12-27] MEDS: VITAMIN D 1,000 INTERNATIONAL UNITS TABLET PO SCH (09:24)
[2020-12-27] MEDS: levETIRAcetam 250MG TABLET (KEPPRA) PO SCH (09:24)
[2020-12-27] MEDS: AMIODARONE 200 MG TAB (PACERONE) PO SCH (09:24)
[2020-12-27] MEDS: PANTOPRAZOLE 40MG TAB (PROTONIX) PO SCH (09:24)
[2020-12-27] MEDS: CALCITRIOL 0.25 MCG CAP (S0169) PO SCH (09:24)
[2020-12-27] MEDS: predniSONE 10 MG TAB PO SCH (09:24)
[2020-12-27] MEDS: DIMETHICONE 2% OINTMENT(VANICREAM) 70GM TUBE TOP SCH ×2 (09:25→21:13)
[2020-12-27] MEDS: clonazePAM 0.5 MG TAB PO PRN ×2 (09:28→21:13)
[2020-12-27] MEDS: oxyCODONE 5MG TAB PO PRN ×2 (09:28→21:14)
[2020-12-27] MEDS: SENOKOT S TAB PO SCH (21:13)
[2020-12-27] MEDS: PRAMIPEXOLE (MIRAPEX) 0.125 MG TAB PO SCH (21:13)
[2020-12-28] MEDS: ALBUTEROL SULFATE 2.5 MG/0.5 ML INH NEB SOLN NEB PRN (00:41)
[2020-12-28] MEDS: guaiFENesin SYRUP 200 MG/10 ML UDC PO SCH ×4 (02:14→18:17)
[2020-12-28 06:00] VITALS: BP 121/63
[2020-12-28] MEDS: ALBUTEROL SULFATE 2.5 MG/0.5 ML INH NEB SOLN NEB SCH ×4 (06:04→20:00)
[2020-12-28] MEDS: FORMOTEROL FUMARATE 20 MCG/2 ML INHALATION SOLUTION (PERFOROMIST) INH SCH ×2 (06:04→20:23)
[2020-12-28] MEDS: BUDESONIDE 0.5 MG/2 ML INHALATION SUSPENSION INH SCH ×2 (06:04→20:22)
[2020-12-28] MEDS: VITAMIN D 1,000 INTERNATIONAL UNITS TABLET PO SCH (06:31)
[2020-12-28] MEDS: predniSONE 10 MG TAB PO SCH (06:35)
[2020-12-28] MEDS: SERTRALINE 100 MG TAB PO SCH (06:35)
[2020-12-28] MEDS: PANTOPRAZOLE 40MG TAB (PROTONIX) PO SCH (06:35)
[2020-12-28] MEDS: clonazePAM 0.5 MG TAB PO PRN ×2 (06:35→22:13)
[2020-12-28] MEDS: levETIRAcetam 250MG TABLET (KEPPRA) PO SCH (06:36)
[2020-12-28] MEDS: oxyCODONE 5MG TAB PO PRN ×2 (06:36→22:18)
[2020-12-28] MEDS: AMIODARONE 200 MG TAB (PACERONE) PO SCH (06:36)
[2020-12-28] MEDS: (RENVELA) SEVELAMER **CARBONate** 800 MG TAB PO SCH ×3 (08:02→18:17)
[2020-12-28] MEDS: HEPARIN SOD (PORCINE) 5000UNITS/ML 1ML VIAL/SYRINGE SQ SCH ×2 (08:02→21:00)
[2020-12-28] MEDS: DIMETHICONE 2% OINTMENT(VANICREAM) 70GM TUBE TOP SCH ×2 (08:02→22:17)
--- NOTE | 2020-12-28 13:42 | IPN ---
NEPHROLOGY PROGRESS NOTE DATE: 12/28/2020 SUBJECTIVE: Mr. Richard is seen this morning during hemodialysis. He is eating candy as usual. He did eat breakfast earlier during dialysis. He denies any worsening of dyspnea and remains on a trach collar. PHYSICAL EXAMINATION: Temperature 97.5 degrees Fahrenheit, heart rate 80 per minute and respiratory rate 18 per minute. Blood pressure 121/63 mmHg and oxygen saturation between 92 and 94% on 5 liters oxygen via trach collar. Head: Atraumatic. He is edentulous and constantly chewing on candy. Neck: His neck veins are difficult to be assessed and tracheostomy is in place. Heart: Sounds are regular, but distant. Lungs: Have diminished breath sounds due to morbid obesity. Abdomen: Obese and nontender. Extremities: Without any cyanosis or clubbing. His right arm AV fistula is currently being used for dialysis. He has plegia of both lower extremities due to chronic spinal stenosis and this is unchanged. LABORATORY DATA: Patient did not have any new labs and prior labs were done on December 26. BUN 66 and creatinine 6.41 with normal electrolytes. Hemoglobin was 10.9 and hematocrit 38. PROBLEMS/PLAN: 1. End-stage renal disease: Patient is being dialyzed today and he is tolerating dialysis treatment very well. 2. Congestive heart failure: Patient has known history of noncompliance with dietary restrictions and he did get volume overloaded; however, it has now improved. We are trying to remove about 3.5 liters of fluid today which he is tolerating well so far. 3. Hypotension: This is a chronic issue and he has been on midodrine. His blood pressure seems to be stable at present. 4. Chronic respiratory failure: Patient has a tracheostomy and got suctioned as needed. His volume status is reasonably well compensated at present. 5. Hyperphosphatemia: He does have a history of chronic hyperphosphatemia due to noncompliance with diet and phosphate binders. Unfortunately he has been declining to take his phosphate binder even in the hospital. 6. Anemia: His anemia is stable and does not need any urgent intervention.
[2020-12-28] MEDS: SENOKOT S TAB PO SCH (22:13)
[2020-12-28] MEDS: PRAMIPEXOLE (MIRAPEX) 0.125 MG TAB PO SCH (22:13)
[2020-12-29] MEDS: ALBUTEROL SULFATE 2.5 MG/0.5 ML INH NEB SOLN NEB PRN ×2 (00:35→05:29)
[2020-12-29] MEDS: CHLORASEPTIC SPRAY MT PRN (00:44)
[2020-12-29] MEDS: guaiFENesin SYRUP 200 MG/10 ML UDC PO SCH ×4 (00:44→18:27)
[2020-12-29] MEDS: ACETAMINOPHEN TAB 650MG DOSE (2X325MG) PO PRN (03:14)
[2020-12-29 06:00] VITALS: BP 127/51
[2020-12-29] MEDS: BUDESONIDE 0.5 MG/2 ML INHALATION SUSPENSION INH SCH ×2 (07:13→20:16)
[2020-12-29] MEDS: ALBUTEROL SULFATE 2.5 MG/0.5 ML INH NEB SOLN NEB SCH ×4 (07:13→20:16)
[2020-12-29] MEDS: FORMOTEROL FUMARATE 20 MCG/2 ML INHALATION SOLUTION (PERFOROMIST) INH SCH ×2 (07:13→20:15)
[2020-12-29] MEDS: (RENVELA) SEVELAMER **CARBONate** 800 MG TAB PO SCH ×3 (08:00→18:28)
[2020-12-29] MEDS: HEPARIN SOD (PORCINE) 5000UNITS/ML 1ML VIAL/SYRINGE SQ SCH ×2 (09:00→21:54)
[2020-12-29] MEDS: VITAMIN D 1,000 INTERNATIONAL UNITS TABLET PO SCH (12:25)
[2020-12-29] MEDS: levETIRAcetam 250MG TABLET (KEPPRA) PO SCH (12:25)
[2020-12-29] MEDS: PANTOPRAZOLE 40MG TAB (PROTONIX) PO SCH (12:25)
[2020-12-29] MEDS: DIMETHICONE 2% OINTMENT(VANICREAM) 70GM TUBE TOP SCH ×2 (12:32→21:54)
[2020-12-29] MEDS: SERTRALINE 100 MG TAB PO SCH (12:36)
[2020-12-29] MEDS: CALCITRIOL 0.25 MCG CAP (S0169) PO SCH (12:36)
[2020-12-29] MEDS: predniSONE 10 MG TAB PO SCH (12:36)
[2020-12-29] MEDS: AMIODARONE 200 MG TAB (PACERONE) PO SCH (12:36)
[2020-12-29] MEDS: clonazePAM 0.5 MG TAB PO PRN ×2 (12:39→21:51)
[2020-12-29] MEDS: SENOKOT S TAB PO SCH (21:50)
[2020-12-29] MEDS: PRAMIPEXOLE (MIRAPEX) 0.125 MG TAB PO SCH (21:53)
[2020-12-29] MEDS: oxyCODONE 5MG TAB PO PRN (21:55)
[2020-12-30] MEDS: ALBUTEROL SULFATE 2.5 MG/0.5 ML INH NEB SOLN NEB PRN ×3 (01:16→10:49)
[2020-12-30] MEDS: guaiFENesin SYRUP 200 MG/10 ML UDC PO SCH ×5 (05:36→23:47)
[2020-12-30 06:00] VITALS: BP 132/57
[2020-12-30] MEDS: BUDESONIDE 0.5 MG/2 ML INHALATION SUSPENSION INH SCH ×2 (07:07→19:43)
[2020-12-30] MEDS: ALBUTEROL SULFATE 2.5 MG/0.5 ML INH NEB SOLN NEB SCH ×4 (07:07→19:42)
[2020-12-30] MEDS: FORMOTEROL FUMARATE 20 MCG/2 ML INHALATION SOLUTION (PERFOROMIST) INH SCH ×2 (07:08→19:44)
[2020-12-30] MEDS: (RENVELA) SEVELAMER **CARBONate** 800 MG TAB PO SCH ×3 (07:52→18:13)
[2020-12-30] MEDS: clonazePAM 0.5 MG TAB PO PRN ×2 (08:32→20:06)
[2020-12-30] MEDS: oxyCODONE 5MG TAB PO PRN ×2 (08:35→20:08)
[2020-12-30 09:30] VITALS: BP 120/51
[2020-12-30] MEDS: VITAMIN D 1,000 INTERNATIONAL UNITS TABLET PO SCH (10:23)
[2020-12-30] MEDS: levETIRAcetam 250MG TABLET (KEPPRA) PO SCH (10:24)
[2020-12-30] MEDS: HEPARIN SOD (PORCINE) 5000UNITS/ML 1ML VIAL/SYRINGE SQ SCH ×2 (10:26→20:07)
[2020-12-30] MEDS: PANTOPRAZOLE 40MG TAB (PROTONIX) PO SCH (10:26)
[2020-12-30] MEDS: predniSONE 10 MG TAB PO SCH (10:26)
[2020-12-30] MEDS: DIMETHICONE 2% OINTMENT(VANICREAM) 70GM TUBE TOP SCH ×2 (10:26→20:08)
[2020-12-30] MEDS: SERTRALINE 100 MG TAB PO SCH (10:26)
[2020-12-30] MEDS: AMIODARONE 200 MG TAB (PACERONE) PO SCH (10:26)
[2020-12-30] MEDS: SENOKOT S TAB PO SCH (20:06)
[2020-12-30] MEDS: PRAMIPEXOLE (MIRAPEX) 0.125 MG TAB PO SCH (20:06)
[2020-12-31] MEDS: ALBUTEROL SULFATE 2.5 MG/0.5 ML INH NEB SOLN NEB PRN (01:55)
[2020-12-31 06:00] VITALS: BP 116/47
[2020-12-31] MEDS: guaiFENesin SYRUP 200 MG/10 ML UDC PO SCH ×3 (06:00→18:15)
[2020-12-31] MEDS: BUDESONIDE 0.5 MG/2 ML INHALATION SUSPENSION INH SCH ×2 (07:41→20:00)
[2020-12-31] MEDS: FORMOTEROL FUMARATE 20 MCG/2 ML INHALATION SOLUTION (PERFOROMIST) INH SCH ×2 (07:41→20:00)
[2020-12-31] MEDS: ALBUTEROL SULFATE 2.5 MG/0.5 ML INH NEB SOLN NEB SCH ×4 (07:42→20:00)
[2020-12-31] MEDS: clonazePAM 0.5 MG TAB PO PRN ×2 (07:54→21:28)
[2020-12-31] MEDS: levETIRAcetam 250MG TABLET (KEPPRA) PO SCH (07:54)
[2020-12-31] MEDS: VITAMIN D 1,000 INTERNATIONAL UNITS TABLET PO SCH (07:54)
[2020-12-31] MEDS: PANTOPRAZOLE 40MG TAB (PROTONIX) PO SCH (07:55)
[2020-12-31] MEDS: AMIODARONE 200 MG TAB (PACERONE) PO SCH (07:55)
[2020-12-31] MEDS: predniSONE 10 MG TAB PO SCH (07:55)
[2020-12-31] MEDS: CALCITRIOL 0.25 MCG CAP (S0169) PO SCH (07:55)
[2020-12-31] MEDS: (RENVELA) SEVELAMER **CARBONate** 800 MG TAB PO SCH ×3 (07:55→18:15)
[2020-12-31] MEDS: DIMETHICONE 2% OINTMENT(VANICREAM) 70GM TUBE TOP SCH ×2 (07:56→21:00)
[2020-12-31] MEDS: SERTRALINE 100 MG TAB PO SCH (07:56)
[2020-12-31] MEDS: HEPARIN SOD (PORCINE) 5000UNITS/ML 1ML VIAL/SYRINGE SQ SCH ×2 (07:56→21:19)
[2020-12-31] MEDS: oxyCODONE 5MG TAB PO PRN ×2 (07:57→21:26)
[2020-12-31 08:40] VITALS: BP 128/66
--- NOTE | 2020-12-31 08:52 | REP ---
INDICATION: plugged trach, low 02 COMPARISON: 12/23/2020 TECHNIQUE: Portable AP view of the chest FINDINGS: Tracheostomy in stable position. Marked cardiomegaly again noted with findings to suggest elements of pulmonary vascular congestion/interstitial edema. Subtle atelectasis cannot be excluded. No discrete focal consolidation. No effusion. No pneumothorax. IMPRESSION: Cardiomegaly and elements of pulmonary vascular congestion/interstitial edema cannot be excluded along with possible subtle atelectasis. <Electronically signed by Juma March > 12/31/20 0849
[2020-12-31 10:33] LABS: HEMATOCRIT 40.4 % (42.0-52.0); MEAN CORPUSCULAR HEMOGLOBIN 29.3 pg (27.0-33.0); MEAN CORPUSCULAR HGB CONC 27.2 g/dl (32.0-36.5); MEAN CORPUSCULAR VOLUME 107.7 fl (80.0-96.0); PLATELET COUNT, AUTOMATED 122 10^3/uL (150-450); RED BLOOD COUNT 3.75 10^6/uL (4.30-6.10); WHITE BLOOD COUNT 8.3 10^3/uL (4.0-10.0)
[2020-12-31 11:25] VITALS: BP 106/52
[2020-12-31 11:47] LABS: ALBUMIN 3.2 GM/DL (3.2-5.2); CALCIUM LEVEL 8.4 MG/DL (8.5-10.1); CREATININE FOR GFR 7.23 MG/DL (0.70-1.30); GLOMERULAR FILTRATION RATE 8.7 (>60); POTASSIUM SERUM 4.7 MEQ/L (3.5-5.1)
[2020-12-31] MEDS: MIDODRINE 5 MG TAB PO SCH ×2 (12:41→16:33)
--- NOTE | 2020-12-31 13:35 | IPN ---
PROGRESS NOTE DATE: 12/31/2020 SUBJECTIVE: Mr. Richard was brought to the dialysis room this morning, however while he was coming into the room he was complaining of inability to breathe. Shortly afterwards he dropped his oxygen saturation down to the 40s and the dialysis nurse called for help and the patient was suctioned and improved. He was not in any cardiac arrest. He was transferred back to his room as I felt uncomfortable dialyzing him with unstable respiratory status. I then talked to the Hospitalist and recommended the patient be transferred to the Progressive Care Unit so he can be dialyzed on his bedside in his room with frequent suctioning and nursing help available. He is now being dialyzed in the room after transferring to the Progressive Care Unit. He is still not feeling very comfortable. He had been seen by Dr. Ortega and there is a plan in place for taking him to the OR tomorrow for evaluation of his tracheostomy. OBJECTIVE: VITAL SIGNS: His temperature is 97 degrees Fahrenheit, heart rate is 70 per minute and respiratory rate is 18 per minute. Blood pressure dropped down to 80/40 mmHg, however now improved to 90/50 mmHg and oxygen saturation is 94 to 97% on 8 liters of oxygen with 30% FIO2. HEENT: His head is atraumatic. Tracheostomy is in place. NECK: Neck veins are impossible to be assessed. HEART: Heart sounds are regular. LUNGS: Diminished breath sounds bilaterally. ABDOMEN: Obese and nontender. EXTREMITIES: Without any cyanosis or clubbing. Right arm fistula is currently being used for dialysis. He has bilateral lower extremity plegia due to severe spinal stenosis. LABORATORY DATA: Today's labs showed a WBC count of 8.3, hemoglobin 11.0 and hematocrit 40.4. Sodium 139, potassium 4.7, CO2 25, BUN 71 and creatinine 7.2. Calcium is 8.4 and phosphorus 8.0. A BNP level was 1554. PROBLEMS: 1. Endstage renal disease. Patient is being dialyzed in his room on the bedside and seems to be tolerating dialysis well. 2. Respiratory failure, mostly this is related to his tracheostomy as he has granulation tissue in his trachea and also possible dysfunction of his tracheostomy. His chest x-ray today did show some fluid but not to explain his respiratory status. His blood pressure is now somewhat low and we are unable to remove fluid more aggressively. Will keep our efforts to remove as much fluid as he can tolerate. 3. Hyperphosphatemia, this is related to his noncompliance with dietary restrictions and phosphate binders. I have discussed with the patient multiple times, however he has been refusing to take his phosphate binders. 4. Anemia, his anemia has corrected very well and at this point we will hold off on further Aranesp. He is going to the OR tomorrow and we will see how he does after his procedure. 5. Hypotension, this is a chronic issue and the patient will continue with Midodrine 10 mg t.i.d. At some point, his Midodrine has been stopped, however I am going to resume it as he is hypotensive again today.
[2020-12-31 16:00] VITALS: BP 112/55
--- NOTE | 2020-12-31 17:48 | IPNPDOC ---
Date Seen The patient was seen on 12/31/20. Progress Note SUBJECTIVE: COSMETICS PRESSER called to dialysis today for patient's O2 saturation dropping to low 40's. Patient was suctioned and mucous plug removed. After some suctioning, O2 saturation improved significantly, patient was more responsive. This has happened in the past with similar issues with mucous plugging. Discussed case with Dr. Ortega who will take to OR in the AM to change tracheostomy tube. Patient denied chest pain, n/v/d, fevers, chills. OBJECTIVE: PHYSICAL EXAMINATION: VITAL SIGNS: please see below General: NAD, comfortable HEENT: PERRLA, EOMI, sclerae clear Neck: supple, normal ROM, no JVD. Trach with collar Respiratory: lungs CTAB, no wheeze, no rales, no crackles CVS: RRR, normal S1, S2, no murmurs Abdo: soft, no masses, no hepatosplenomegaly, BS+, no rebound tenderness Extremities: trace edema MSK: no joint deformities, normal ROM Neuro: no focal neuro deficits, moving all 4 extremities, CN2-12 intact. Psych: calm, cooperative, AAO x 3 LABORATORY DATA, IMAGING STUDIES, MICROBIOLOGY: Please see below. CXR 12/31/20: Cardiomegaly and elements of pulmonary vascular congestion/interstitial edema cannot be excluded along with possible subtle atelectasis. ASSESSMENT: Mr. Richard is a 50-year-old male with prolonged hospital course, acute on chornic hypoxic and hypercapnic respiratory failure 2/2 to restrictive lung disease from obesity, mucous plugging, difficulty in being placed due to need HD chair, respiratory needs. PLAN: Acute on chronic hypoxic and hypercapnic respiratory failure 2/2 to restrictive lung disease from obesity, mucous plugging -COSMETICS PRESSER today due to mucous plugging, plan was to change tracheostomy tube on 02/06/2021 but instead will do on 01/01/21 -Dr. Ortega consulted -C/w prednisone, albuterol ATC And PRN, pulmicort -Placement is unknown at this time due to some issues with patient not being able to suction himself. Morbid obesity BMI 52.5 Contributing to his restrictive lung disease and complicating care Severe spinal stenosis Continue pain regimen Incontinence-associated dermatitis/moisture associated skin damage - wound consult provided by Dr. Goncalves on 12/25/20 - wound care instructions are ordered. Clean with [employer] baby shampoo, vashe for 10 min, appy interdry. - bilateral heel float boots, ABD pad under straps to protect skin on top of boot End-stage renal disease on hemodialysis/secondary hyperparathyroidism Neurology following and recommendations appreciated - midodrine has been discontinued by nephrology service as patient's BP have been elevated Continue with dialysis Tue,Thus, Sat - PTH > 1000. -C/w calcitriol and sevelamer. GERD Continue PPI Depression/anxiety Continue sertraline and clonazepam Paroxysmal atrial fibrillation Continue amiodarone Seizure disorder Continue Keppra Hypotension Continue medication on dialysis days - has had midodrine with dialysis but has recently been hypertensive - will communicate to nephrology to perhaps use as prn Anemia Stable Receives Aranesp at dialysis Debility Chronically bedridden Pending placement at longterm Anxiety - increased clonazepam to 0.5 mg TID prn DVT prophylaxis Heparin subcutaneous DISPOSITION: Pending placement to facility with HD chair as well as appropriate trach care. Placed back on inpatient status for trach placement 01/01/21. VS, I&O, 24H, Edubonsugar Vital Signs/I&O Vital Signs Date Time Temp Pulse Resp B/P (MAP) Pulse Ox O2 Delivery O2 Flow Rate FiO2 12/31/20 16:00 96.8 76 18 112/55 (74) 97 Trach Collar 8.0 35 I&O- Last 24 Hours up to 6 AM 12/31/20 06:00 Intake Total 1260 ml Output Total 0 ml Balance 1260 ml Laboratory Data 24H LABS Laboratory Tests 2 12/31/20 10:15: Nucleated Red Blood Cells % (auto) 0.2H, Anion Gap 11, Glomerular Filtration Rate 8.7L, Calcium Level 8.4L, Phosphorus Level 8.0H, RZ-Idd-H-Type Natriuretic Peptide 1554H, Albumin 3.2 12/31/20 14:35: Coronavirus (COVID-19)(PCR) NEGATIVE CBC/BMP Laboratory Tests 12/31/20 10:15 Current Medications Current Medications Medications (Trade) Dose Ordered Sig/Alicia Route PRN Reason Start Time Stop Time Status Last Admin Dose Admin Acetaminophen (Tylenol Tab) 650 mg Q4HP PRN PO PAIN / FEVER 10/10/20 21:00 12/29/20 03:14 Acetaminophen (Tylenol Tab) 650 mg Q6HP PRN PO PAIN / FEVER 8/20/20 04:45 10/10/20 20:58 DC 10/10/20 17:12 Acetylcysteine (Mucomyst 10 % (100mg/ml)) 400 mg RBID INH 10/16/20 08:00 10/28/20 09:59 DC 10/28/20 07:08 Acetylcysteine (Mucomyst 20% (200mg/ml)) 400 mg RBID INH 10/28/20 20:00 12/15/20 08:41 DC 12/14/20 19:23 Albuterol Sulfate (Proventil Neb) 2.5 mg Q2HP PRN NEB SOB/WHEEZING 10/16/20 11:30 12/21/20 08:28 DC 12/21/20 03:34 Albuterol Sulfate (Proventil Neb) 2.5 mg RQ4H PRN NEB SOB/WHEEZING 12/21/20 08:25 12/31/20 01:55 Albuterol Sulfate (Proventil Neb) 2.5 mg RQID NEB 10/16/20 12:00 12/31/20 15:11 Albuterol/ Ipratropium (Duoneb (Ipr 0.5mg/Alb 2.5mg)) 3 ml Q2H PRN NEB SHORTNESS OF BREATH 06/11/20 19:45 10/16/20 11:16 DC 10/15/20 16:52 Albuterol/ Ipratropium (Duoneb (Ipr 0.5mg/Alb 2.5mg)) 3 ml Q6H PRN NEB SOB/WHEEZING 06/11/20 19:45 06/11/20 19:45 DC Albuterol/ Ipratropium (Duoneb (Ipr 0.5mg/Alb 2.5mg)) 3 ml RQ4H NEB 07/25/20 16:00 10/16/20 11:16 DC 10/16/20 08:46 Albuterol/ Ipratropium (Duoneb (Ipr 0.5mg/Alb 2.5mg)) 3 ml RQ6H NEB 12/13/20 14:00 12/21/20 08:28 DC 12/21/20 01:03 Albuterol/ Ipratropium (Duoneb (Ipr 0.5mg/Alb 2.5mg)) 3 ml RQ6H NEB 06/11/20 20:00 07/25/20 15:32 DC 07/25/20 13:55 Alprazolam (Xanax) 0.25 mg Q6H PRN PO ANXIETY 06/11/20 19:45 10/13/20 13:17 DC 10/12/20 21:31 Amiodarone HCl (Pacerone, Cordarone) 200 mg DAILY PO 06/12/20 09:00 12/31/20 07:55 Amlodipine Besylate (Norvasc) 5 mg DAILY PO 10/06/20 09:00 10/08/20 18:19 DC 10/08/20 08:19 Amlodipine Besylate (Norvasc) 10 mg DAILY PO 08/29/20 09:00 10/05/20 18:17 DC 10/05/20 06:06 Azithromycin 500 mg/IV Miscellaneous Supplies 1 each/ Dextrose 255 ml @ 255 mls/hr Q24H IV 12/13/20 22:00 12/13/20 22:12 DC Benzonatate (Tessalon Perles) 100 mg Q8HP PRN PO COUGH 06/13/20 01:15 12/02/20 10:56 DC 06/13/20 12:18 Bisacodyl (Dulcolax Suppository) 10 mg DAILYPRN PRN CA CONSTIPATION 06/11/20 19:45 06/15/20 16:46 DC Bisacodyl (Dulcolax Tab) 5 mg DAILY PO 06/16/20 09:00 08/04/20 17:40 DC 08/04/20 10:46 Budesonide (Pulmicort) 0.5 mg RBID INH 12/21/20 08:00 12/31/20 07:41 Calcitriol (Rocaltrol) 0.25 mcg Q48H PO 12/25/20 09:00 12/31/20 07:55 Carbamide Peroxide (Debrox) 3 drop BID 06/12/20 21:00 06/16/20 09:01 DC 06/13/20 12:17 Ceftriaxone Sodium 2 gm/ Dextrose 50 ml @ 100 mls/hr Q24H IV 12/13/20 21:00 12/14/20 12:03 DC 12/13/20 20:36 Clonazepam (KlonoPIN) 0.25 mg Q6HP PRN PO anxiety 10/13/20 13:15 10/20/20 13:14 DC 10/19/20 22:24 Clonazepam (KlonoPIN) 0.25 mg Q6HP PRN PO ANXIETY 10/20/20 21:00 12/25/20 12:17 DC 12/25/20 09:08 Clonazepam (KlonoPIN) 0.5 mg Q8HP PRN PO ANXIETY 12/25/20 13:00 12/25/20 14:24 DC Clonazepam (KlonoPIN) 0.5 mg Q8HP PRN PO ANXIETY 12/25/20 18:45 12/31/20 07:54 Cod Liver Oil/ Zinc Oxide (Desitin) 1 dose BID TOP 12/24/20 21:00 12/25/20 13:48 DC 12/25/20 08:58 COVID-19 Vacc mRNA LNP-S (MOD) (PF) (Moderna Covid19 Vacc(Unapprov)) 100 mcg ASDIRECTED PRN IM COVID Vaccination 12/19/20 05:00 12/19/20 14:00 DC 12/19/20 14:00 Darbepoetin Jairo (Aranesp (Dialysis Use)) 100 mcg HD IV 08/06/20 11:45 09/03/20 07:41 DC Darbepoetin Jairo (Aranesp (Dialysis Use)) 100 mcg HD IV 09/03/20 07:30 09/16/20 08:11 DC 09/10/20 09:01 Darbepoetin Jairo (Aranesp (Dialysis Use)) 200 mcg HD IV 11/19/20 12:30 12/26/20 09:17 Darbepoetin Jairo (Aranesp (Dialysis Use)) 200 mcg HD IV 10/31/20 10:30 11/19/20 12:25 DC 11/13/20 11:56 Darbepoetin Jairo (Aranesp (Dialysis Use)) 200 mcg HD IV 10/08/20 18:30 10/31/20 10:17 DC 10/24/20 10:47 Dimethicone (Vanicream Ointment) 1 dose BID TOP 11/27/20 09:00 12/31/20 07:56 Diphenhydramine HCl (Benadryl) 50 mg ONCE PRN IV ALLERGIC REACTION 12/19/20 13:40 12/19/20 23:59 DC Emollient Cream (Vanicream) to bilateral lo... DAILY TOP 08/05/20 09:00 09/09/20 11:17 DC 09/08/20 09:44 Emollient Cream (Vanicream) to bilateral lo... DAILY PRN TOP DRY SKIN 09/09/20 11:15 11/27/20 13:12 DC 09/28/20 22:12 Epinephrine HCl (Adrenalin) 0.3 mg ONCE PRN IM ALLERGIC REACTION 12/19/20 13:45 12/19/20 23:59 DC Erythromycin (Ilotycin) 1 CM RIBBON TID OU 11/20/20 16:00 11/27/20 16:00 DC 11/27/20 16:49 Fentanyl Citrate (Sublimaze) 25 mcg Q5MP PRN IV PAIN LEVEL 5-10 11/08/20 13:00 11/08/20 14:00 DC Formoterol Fumarate (Perforomist) 20 mcg RBID INH 12/21/20 08:00 12/31/20 07:41 Guaifenesin (Robitussin) 5 ml Q6H PO 07/28/20 12:00 12/31/20 12:41 Heparin Sodium (Heparin (Flush)) 200 units ASDIRECTED PRN IV SEE LABEL COMMENTS 06/11/20 19:45 06/11/20 19:49 DC Heparin Sodium (Heparin (Flush)) 200 units ASDIRECTED PRN IV SEE LABEL COMMENTS 06/11/20 19:45 06/20/20 18:55 DC 06/20/20 06:42 Heparin Sodium (Heparin (Flush)) 200 units PICC IV 06/12/20 06:00 06/11/20 19:48 DC Heparin Sodium (Heparin (Flush)) 200 units PICC IV 06/12/20 06:00 06/20/20 18:55 DC 06/20/20 06:41 Heparin Sodium (Heparin) 9,000 units ASDIRECTED XX 10/03/20 10:55 10/04/20 09:29 DC Heparin Sodium (Heparin) 9,000 units ASDIRECTED XX 09/26/20 13:04 09/27/20 07:14 DC Heparin Sodium (Heparin) Please refer to ... ASDIRECTED XX 11/05/20 08:00 11/06/20 07:59 DC Heparin Sodium (Heparin) Please refer to ... ASDIRECTED XX 11/07/20 08:00 11/08/20 07:59 DC Heparin Sodium (Heparin) Please refer to ... ASDIRECTED XX 11/09/20 08:00 11/10/20 07:59 DC Heparin Sodium (Heparin) Please refer to ... ASDIRECTED XX 11/11/20 08:30 11/12/20 08:29 DC Heparin Sodium (Heparin) Please refer to ... ASDIRECTED XX 11/13/20 12:45 11/14/20 12:44 DC Heparin Sodium (Heparin) Please refer to ... ASDIRECTED XX 11/15/20 10:00 11/16/20 09:59 DC Heparin Sodium (Heparin) Please refer to ... ASDIRECTED XX 10/28/20 12:45 10/29/20 12:44 DC Heparin Sodium (Heparin) Please refer to ... ASDIRECTED XX 10/29/20 12:00 10/30/20 11:59 DC Heparin Sodium (Heparin) Please refer to ... ASDIRECTED XX 10/30/20 22:45 10/31/20 22:44 DC Heparin Sodium (Heparin) Please refer to ... ASDIRECTED XX 11/02/20 08:00 11/03/20 07:59 DC Heparin Sodium (Heparin) Please refer to ... ASDIRECTED XX 11/25/20 08:00 11/26/20 07:59 DC Heparin Sodium (Heparin) Please refer to ... ASDIRECTED XX 12/05/20 10:15 12/06/20 10:14 DC Heparin Sodium (Heparin) Please refer to ... ASDIRECTED XX 12/07/20 09:00 12/08/20 08:59 DC Heparin Sodium (Heparin) Please refer to ... ASDIRECTED XX 12/14/20 07:00 12/15/20 06:59 DC Heparin Sodium (Heparin) Please refer to ... ASDIRECTED XX 12/17/20 07:00 12/18/20 06:59 DC Heparin Sodium (Heparin) Please refer to ... ASDIRECTED XX 12/19/20 07:00 12/20/20 06:59 DC Heparin Sodium (Heparin) Please refer to ... ASDIRECTED XX 12/21/20 09:00 12/22/20 08:59 DC Heparin Sodium (Heparin) Please refer to ... ASDIRECTED XX 11/27/20 10:30 11/28/20 10:29 DC Heparin Sodium (Heparin) Please refer to ... ASDIRECTED XX 11/30/20 07:00 12/01/20 06:59 DC Heparin Sodium (Heparin) Please refer to ... ASDIRECTED XX 12/03/20 07:45 12/04/20 07:44 DC Heparin Sodium (Heparin) Please refer to ... ASDIRECTED XX 12/23/20 14:10 12/24/20 14:09 Cancel Heparin Sodium (Heparin) Please refer to ... ASDIRECTED XX 12/24/20 08:00 12/25/20 07:59 DC Heparin Sodium (Heparin) Please refer to ... ASDIRECTED XX 12/26/20 08:20 12/27/20 08:19 DC Heparin Sodium (Heparin) Please refer to ... ASDIRECTED XX 09/20/20 17:45 09/21/20 17:44 DC Heparin Sodium (Heparin) Please refer to ... ASDIRECTED XX 09/24/20 07:15 09/25/20 07:14 DC Heparin Sodium (Heparin) Please refer to ... ASDIRECTED XX 10/03/20 09:30 10/03/20 10:55 DC Heparin Sodium (Heparin) Please refer to ... ASDIRECTED XX 10/12/20 08:00 10/13/20 07:59 DC Heparin Sodium (Heparin) Please refer to ... ASDIRECTED XX 10/15/20 08:00 10/16/20 07:59 DC Heparin Sodium (Heparin) Please refer to ... ASDIRECTED XX 10/17/20 10:00 10/18/20 09:59 DC Heparin Sodium (Heparin) Please refer to ... ASDIRECTED XX 10/19/20 08:00 10/20/20 07:59 DC Heparin Sodium (Heparin) Please refer to ... ASDIRECTED XX 09/26/20 07:15 09/26/20 13:04 DC Heparin Sodium (Heparin) Please refer to ... ASDIRECTED XX 09/28/20 07:45 09/29/20 07:44 DC Heparin Sodium (Heparin) dose as per volume indica... ASDIRECTED PRN IV SEE LABEL COMMENTS 11/05/20 08:00 11/05/20 11:59 DC Heparin Sodium (Heparin) dose as per volume indica... ASDIRECTED PRN IV SEE LABEL COMMENTS 11/07/20 08:00 11/07/20 20:59 DC Heparin Sodium (Heparin) dose as per volume indica... ASDIRECTED PRN IV SEE LABEL COMMENTS 11/09/20 08:00 11/09/20 21:59 DC Heparin Sodium (Heparin) dose as per volume indica... ASDIRECTED PRN IV SEE LABEL COMMENTS 11/02/20 08:00 11/02/20 20:14 DC Heparin Sodium (Heparin) dose as per volume indica... ASDIRECTED PRN IV SEE LABEL COMMENTS 11/25/20 08:00 11/25/20 20:44 DC Heparin Sodium (Heparin) dose as per volume indica... ASDIRECTED PRN IV SEE LABEL COMMENTS 09/04/20 11:30 09/05/20 08:25 DC Heparin Sodium (Heparin) dose as per volume indica... ASDIRECTED PRN IV SEE LABEL COMMENTS 09/04/20 11:30 09/05/20 08:25 DC Heparin Sodium (Porcine) (Heparin) 5,000 units BID SQ 10/23/20 09:00 12/31/20 07:56 Heparin Sodium (Porcine) (Heparin) 5,000 units Q8H SQ 06/11/20 22:00 06/13/20 15:19 DC 06/13/20 12:17 Heparin Sodium (Porcine) (Heparin) 5,000 units Q8H SQ 07/25/20 22:00 10/22/20 22:18 DC 10/22/20 21:21 Home Med (Med Rec Complete!) ASDIRECTED XX 06/12/20 10:15 06/12/20 10:08 DC Hydralazine HCl (Apresoline) 10 mg Q6H PRN PO SBP>170 06/11/20 19:45 08/06/20 11:39 DC 06/19/20 22:01 Iron (Venofer) 100 mg HD IV 11/13/20 12:30 11/25/20 10:02 DC 11/22/20 10:43 Iron (Venofer) 100 mg HD IV 07/11/20 11:30 08/27/20 13:16 DC Lactated Ringer's 1,000 ml @ 100 mls/hr Q10H IV 11/08/20 13:00 11/08/20 14:00 DC Levetiracetam (Keppra) 500 mg DAILY PO 06/12/20 09:00 12/31/20 07:54 Lidocaine (Lidoderm Patch) 1 patch DAILY TD 06/12/20 09:00 09/09/20 11:57 DC 07/13/20 06:43 Lidocaine (Lidoderm Patch) 1 patch DAILY PRN TD BACK PAIN 09/09/20 12:00 09/09/20 14:17 DC Lidocaine HCl (Lidocaine 1% Sdv) 0.5 ml ASDIRECTED PRN SC SEE LABEL COMMENTS 11/05/20 08:00 11/05/20 11:59 DC Lidocaine HCl (Lidocaine 1% Sdv) 0.5 ml ASDIRECTED PRN SC SEE LABEL COMMENTS 11/07/20 08:00 11/07/20 20:59 DC Lidocaine HCl (Lidocaine 1% Sdv) 0.5 ml ASDIRECTED PRN SC SEE LABEL COMMENTS 11/09/20 08:00 11/09/20 21:59 DC Lidocaine HCl (Lidocaine 1% Sdv) 0.5 ml ASDIRECTED PRN SC SEE LABEL COMMENTS 11/11/20 08:30 11/12/20 08:29 DC Lidocaine HCl (Lidocaine 1% Sdv) 0.5 ml ASDIRECTED PRN SC SEE LABEL COMMENTS 11/13/20 12:45 11/14/20 12:44 DC Lidocaine HCl (Lidocaine 1% Sdv) 0.5 ml ASDIRECTED PRN SC SEE LABEL COMMENTS 11/15/20 10:00 11/16/20 09:59 DC Lidocaine HCl (Lidocaine 1% Sdv) 0.5 ml ASDIRECTED PRN SC SEE LABEL COMMENTS 10/28/20 12:45 10/29/20 12:44 DC Lidocaine HCl (Lidocaine 1% Sdv) 0.5 ml ASDIRECTED PRN SC SEE LABEL COMMENTS 10/29/20 12:00 10/30/20 11:59 DC Lidocaine HCl (Lidocaine 1% Sdv) 0.5 ml ASDIRECTED PRN SC SEE LABEL COMMENTS 10/30/20 22:45 10/31/20 22:44 DC Lidocaine HCl (Lidocaine 1% Sdv) 0.5 ml ASDIRECTED PRN SC SEE LABEL COMMENTS 11/02/20 08:00 11/02/20 20:14 DC Lidocaine HCl (Lidocaine 1% Sdv) 0.5 ml ASDIRECTED PRN SC SEE LABEL COMMENTS 11/25/20 08:00 11/25/20 20:44 DC Lidocaine HCl (Lidocaine 1% Sdv) 0.5 ml ASDIRECTED PRN SC SEE LABEL COMMENTS 12/05/20 10:15 12/06/20 10:14 DC Lidocaine HCl (Lidocaine 1% Sdv) 0.5 ml ASDIRECTED PRN SC SEE LABEL COMMENTS 12/07/20 09:00 12/08/20 08:59 DC Lidocaine HCl (Lidocaine 1% Sdv) 0.5 ml ASDIRECTED PRN SC SEE LABEL COMMENTS 12/14/20 07:00 12/15/20 06:59 DC Lidocaine HCl (Lidocaine 1% Sdv) 0.5 ml ASDIRECTED PRN SC SEE LABEL COMMENTS 12/17/20 07:00 12/17/20 11:14 DC Lidocaine HCl (Lidocaine 1% Sdv) 0.5 ml ASDIRECTED PRN SC SEE LABEL COMMENTS 12/19/20 07:00 12/20/20 06:59 DC Lidocaine HCl (Lidocaine 1% Sdv) 0.5 ml ASDIRECTED PRN SC SEE LABEL COMMENTS 12/21/20 09:00 12/22/20 08:59 DC Lidocaine HCl (Lidocaine 1% Sdv) 0.5 ml ASDIRECTED PRN SC SEE LABEL COMMENTS 11/27/20 10:30 11/28/20 10:29 DC Lidocaine HCl (Lidocaine 1% Sdv) 0.5 ml ASDIRECTED PRN SC SEE LABEL COMMENTS 11/30/20 07:00 11/30/20 09:14 DC Lidocaine HCl (Lidocaine 1% Sdv) 0.5 ml ASDIRECTED PRN SC SEE LABEL COMMENTS 12/03/20 07:45 12/04/20 07:44 DC Lidocaine HCl (Lidocaine 1% Sdv) 0.5 ml ASDIRECTED PRN SC SEE LABEL COMMENTS 12/23/20 14:10 12/24/20 14:09 Cancel Lidocaine HCl (Lidocaine 1% Sdv) 0.5 ml ASDIRECTED PRN SC SEE LABEL COMMENTS 12/24/20 08:00 12/25/20 07:59 DC Lidocaine HCl (Lidocaine 1% Sdv) 0.5 ml ASDIRECTED PRN SC SEE LABEL COMMENTS 12/26/20 08:20 12/27/20 08:19 DC Lidocaine HCl (Lidocaine 1% Sdv) 0.5 ml ASDIRECTED PRN SC SEE LABEL COMMENTS 09/04/20 11:30 09/05/20 08:26 DC Lidocaine HCl (Lidocaine 1% Sdv) 0.5 ml ASDIRECTED PRN SC SEE LABEL COMMENTS 09/04/20 11:30 09/05/20 08:26 DC Lidocaine HCl (Lidocaine 1% Sdv) 0.5 ml ASDIRECTED PRN SC SEE LABEL COMMENTS 09/07/20 07:30 09/08/20 07:29 DC Lidocaine HCl (Lidocaine 1% Sdv) 0.5 ml ASDIRECTED PRN SC SEE LABEL COMMENTS 09/07/20 07:30 09/08/20 07:29 DC Lidocaine HCl (Lidocaine 1% Sdv) 0.5 ml ASDIRECTED PRN SC SEE LABEL COMMENTS 09/21/20 08:00 09/21/20 17:44 DC Lidocaine HCl (Lidocaine 1% Sdv) 0.5 ml ASDIRECTED PRN SC SEE LABEL COMMENTS 09/24/20 07:15 09/25/20 07:14 DC Lidocaine HCl (Lidocaine 1% Sdv) 0.5 ml ASDIRECTED PRN SC SEE LABEL COMMENTS 10/03/20 09:30 10/04/20 09:29 DC Lidocaine HCl (Lidocaine 1% Sdv) 0.5 ml ASDIRECTED PRN SC SEE LABEL COMMENTS 10/12/20 08:00 10/13/20 07:59 DC Lidocaine HCl (Lidocaine 1% Sdv) 0.5 ml ASDIRECTED PRN SC SEE LABEL COMMENTS 10/15/20 08:00 10/15/20 20:59 DC Lidocaine HCl (Lidocaine 1% Sdv) 0.5 ml ASDIRECTED PRN SC SEE LABEL COMMENTS 10/17/20 10:00 10/18/20 09:59 DC Lidocaine HCl (Lidocaine 1% Sdv) 0.5 ml ASDIRECTED PRN SC SEE LABEL COMMENTS 10/19/20 08:00 10/19/20 12:59 DC Lidocaine HCl (Lidocaine 1% Sdv) 0.5 ml ASDIRECTED PRN SC SEE LABEL COMMENTS 09/26/20 07:15 09/27/20 07:14 DC Lidocaine HCl (Lidocaine 1% Sdv) 0.5 ml ASDIRECTED PRN SC SEE LABEL COMMENTS 10/01/20 10:30 10/02/20 10:29 DC Methylprednisolone (SOLUmedrol) 60 mg Q12H IV 12/22/20 18:00 12/23/20 11:30 DC 12/23/20 06:23 Methylprednisolone (SOLUmedrol) 60 mg Q6H IV 12/20/20 18:00 12/21/20 10:16 DC 12/21/20 05:59 Methylprednisolone (SOLUmedrol) 60 mg Q8H IV 12/21/20 14:00 12/22/20 07:39 DC 12/22/20 06:21 Midodrine (Proamatine) 5 mg MoWeFr@0900 PO 11/20/20 09:00 12/02/20 09:00 DC 11/30/20 08:29 Midodrine (Proamatine) 5 mg TuThSa@0900 PO 11/05/20 09:00 11/19/20 10:13 DC 11/18/20 08:24 Midodrine (Proamatine) 5 mg TuThSa@0900 PO 12/03/20 09:00 12/25/20 10:04 DC 12/24/20 07:58 Midodrine (Proamatine) 10 mg 08,12,16 PO 12/31/20 12:00 12/31/20 16:33 Midodrine (Proamatine) 10 mg ASDIRECTED PO 06/11/20 20:30 08/31/20 21:12 DC 08/10/20 06:14 Midodrine (Proamatine) 10 mg HD PO 06/11/20 21:00 06/11/20 20:22 DC Miscellaneous (Unresolved Clarification Entry) SEE LABEL COMMENTS DAILY XX 11/24/20 09:00 11/24/20 12:58 DC Miscellaneous (Unresolved Clarification Entry) SEE LABEL COMMENTS DAILY XX 10/29/20 09:00 10/29/20 09:54 DC Miscellaneous (Unresolved Clarification Entry) SEE LABEL COMMENTS DAILY XX 11/01/20 09:00 11/05/20 08:43 DC 11/04/20 08:23 Miscellaneous (Unresolved Clarification Entry) SEE LABEL COMMENTS DAILY XX 06/24/20 09:00 06/25/20 12:54 DC Miscellaneous (Unresolved Clarification Entry) SEE LABEL COMMENTS DAILY XX 09/29/20 09:00 09/29/20 12:49 DC Non-Formulary Medication ( See Comment Field Below ) CHECK TO SEE IF THE PATIENT... DAILY@0800 XX 06/27/20 08:00 09/01/20 18:17 DC 08/10/20 06:36 Non-Formulary Medication ( See Comment Field Below ) CHECK TO SEE IF THE PATIENT... DAILY@1600 XX 12/17/20 16:00 12/22/20 23:59 DC 12/21/20 15:21 Non-Formulary Medication ( See Comment Field Below ) REMOVE LIDODERM PATCH DAILY@21 XX 06/11/20 21:00 09/09/20 11:57 DC 09/04/20 21:00 Non-Formulary Medication ( See Comment Field Below ) REMOVE LIDODERM PATCH DAILY@21 PRN XX BACK PAIN 09/09/20 12:00 09/09/20 14:17 DC Nystatin (Mycostatin Powder, Nystop) Apply to groin folds BIDP PRN TOP REDNESS/IRRITATION 08/27/20 01:00 09/25/20 01:24 DC Nystatin (Mycostatin Powder, Nystop) apply to groin area daily DAILY TOP 11/25/20 09:00 12/25/20 13:48 DC 12/25/20 08:58 Ondansetron HCl (ZOFRAN INJection) 4 mg Q4HP PRN IV NAUSEA OR VOMITING 11/08/20 13:00 11/08/20 14:00 DC Ondansetron HCl (Zofran) 4 mg Q6HP PRN PO NAUSEA OR VOMITING 07/08/20 12:45 12/09/20 11:37 Oxycodone HCl (Roxicodone, Oxyir) 10 mg Q4H PRN PO PAIN 06/11/20 19:45 10/19/20 15:15 DC 10/18/20 22:28 Oxycodone HCl (Roxicodone, Oxyir) 10 mg Q4HP PRN PO SEVERE PAIN (PS 8-10) 10/19/20 22:15 10/20/20 10:15 DC 10/19/20 22:23 Oxycodone HCl (Roxicodone, Oxyir) 10 mg Q4HP PRN PO SEVERE PAIN (PS 8-10) 10/20/20 21:00 10/22/20 22:18 DC 10/22/20 21:20 Oxycodone HCl (Roxicodone, Oxyir) 10 mg Q8HP PRN PO SEVERE PAIN (PS 8-10) 10/22/20 22:30 12/31/20 07:57 Pantoprazole Sodium (Protonix) 40 mg DAILY PO 06/12/20 09:00 12/31/20 07:55 Phenol (Chloraseptic [place]) 1 spray Q2HP PRN MT SORE THROAT 10/09/20 08:45 12/29/20 00:44 Piperacillin Sod/ Tazobactam Sod 2.25 gm/Dextrose 50 ml @ 100 mls/hr Q8H IV 12/14/20 17:00 12/22/20 23:59 DC 12/22/20 17:18 Piperacillin Sod/ Tazobactam Sod 3.375 gm/Dextrose 50 ml @ 50 mls/hr Q6H IV 12/14/20 12:15 UNV Polyethylene Glycol (Miralax) 1 pkt DAILY PRN PO CONSTIPATION 06/11/20 19:45 06/15/20 16:45 DC Polyethylene Glycol (Miralax) 1 pkt DAILYPRN PRN PO CONSTIPATION 08/04/20 17:45 Polymyxin/ Trimethoprim Sulfate (Polytrim Ophth Drops) 1 drop 6XD OU 08/03/20 15:00 08/10/20 12:00 DC 08/10/20 06:13 Pramipexole Dihydrochloride (Mirapex) 0.125 mg QHS PO 06/11/20 21:00 12/30/20 20:06 Prednisone (Deltasone) 5 mg Taper DAILY PO 12/24/20 09:00 01/02/21 08:59 12/31/20 07:55 Prednisone (Deltasone) 30 mg Taper DAILY PO 12/21/20 09:00 12/20/20 18:32 DC Prednisone (Deltasone) 40 mg DAILY PO 12/14/20 09:00 12/20/20 13:37 DC 12/20/20 09:25 Salmeterol Xinafoate/ Fluticasone (Advair Hfa 115/ ) 2 puff RBID INH 12/13/20 08:00 12/21/20 08:28 DC 12/20/20 20:12 Senna/Docusate Sodium (Senokot S) 2 tab QHS PO 08/04/20 21:00 12/30/20 20:06 Sertraline HCl (Zoloft) 100 mg DAILY PO 06/12/20 09:00 09/30/20 11:35 DC 09/30/20 09:50 Sertraline HCl (Zoloft) 150 mg DAILY PO 10/01/20 09:00 10/13/20 13:17 DC 10/13/20 10:21 Sertraline HCl (Zoloft) 200 mg DAILY PO 10/14/20 09:00 12/31/20 07:56 Sevelamer Carbonate (Renvela) 2,400 mg WM PO 06/12/20 08:00 11/15/20 16:12 DC 11/15/20 13:15 Sevelamer Carbonate (Renvela) 4,000 mg WM PO 11/15/20 18:00 12/31/20 12:41 Sodium Chloride (Nacl 0.9%) 200 ml ASDIRECTED PRN IV SEE LABEL COMMENTS 11/07/20 08:00 11/08/20 07:59 DC Sodium Chloride (Nacl 0.9%) 200 ml ASDIRECTED PRN IV SEE LABEL COMMENTS 11/09/20 08:00 11/10/20 07:59 DC Sodium Chloride (Nacl 0.9%) 200 ml ASDIRECTED PRN IV SEE LABEL COMMENTS 11/11/20 08:30 11/12/20 08:29 DC Sodium Chloride (Nacl 0.9%) 200 ml ASDIRECTED PRN IV SEE LABEL COMMENTS 11/13/20 12:45 11/14/20 12:44 DC Sodium Chloride (Nacl 0.9%) 200 ml ASDIRECTED PRN IV SEE LABEL COMMENTS 11/15/20 10:00 11/16/20 09:59 DC Sodium Chloride (Nacl 0.9%) 200 ml ASDIRECTED PRN IV SEE LABEL COMMENTS 10/28/20 12:45 10/29/20 12:44 DC Sodium Chloride (Nacl 0.9%) 200 ml ASDIRECTED PRN IV SEE LABEL COMMENTS 10/29/20 12:00 10/30/20 11:59 DC Sodium Chloride (Nacl 0.9%) 200 ml ASDIRECTED PRN IV SEE LABEL COMMENTS 10/30/20 22:45 10/31/20 22:44 DC Sodium Chloride (Nacl 0.9%) 200 ml ASDIRECTED PRN IV SEE LABEL COMMENTS 12/05/20 10:15 12/06/20 10:14 DC Sodium Chloride (Nacl 0.9%) 200 ml ASDIRECTED PRN IV SEE LABEL COMMENTS 12/07/20 09:00 12/08/20 08:59 DC Sodium Chloride (Nacl 0.9%) 200 ml ASDIRECTED PRN IV SEE LABEL COMMENTS 12/14/20 07:00 12/15/20 06:59 DC Sodium Chloride (Nacl 0.9%) 200 ml ASDIRECTED PRN IV SEE LABEL COMMENTS 12/21/20 09:00 12/22/20 08:59 DC Sodium Chloride (Nacl 0.9%) 200 ml ASDIRECTED PRN IV SEE LABEL COMMENTS 12/03/20 07:45 12/04/20 07:44 DC Sodium Chloride (Nacl 0.9%) 200 ml ASDIRECTED PRN IV SEE LABEL COMMENTS 12/23/20 14:10 12/24/20 14:09 Cancel Sodium Chloride (Nacl 0.9%) 200 ml ASDIRECTED PRN IV SEE LABEL COMMENTS 12/24/20 08:00 12/25/20 07:59 DC Sodium Chloride (Nacl 0.9%) 200 ml ASDIRECTED PRN IV SEE LABEL COMMENTS 12/26/20 08:20 12/27/20 08:19 DC Sodium Chloride (Nacl 0.9%) 200 ml ASDIRECTED PRN IV SEE LABEL COMMENTS 09/03/20 07:30 09/05/20 08:26 DC Sodium Chloride (Nacl 0.9%) 200 ml ASDIRECTED PRN IV SEE LABEL COMMENTS 09/04/20 11:30 09/10/20 10:39 DC Sodium Chloride (Nacl 0.9%) 200 ml ASDIRECTED PRN IV SEE LABEL COMMENTS 09/07/20 07:30 09/10/20 10:39 DC Sodium Chloride (Nacl 0.9%) 200 ml ASDIRECTED PRN IV SEE LABEL COMMENTS 09/12/20 08:00 09/24/20 08:57 DC Sodium Chloride (Nacl 0.9%) 200 ml ASDIRECTED PRN IV SEE LABEL COMMENTS 09/24/20 07:15 09/25/20 07:14 DC Sodium Chloride (Nacl 0.9%) 200 ml ASDIRECTED PRN IV SEE LABEL COMMENTS 10/03/20 09:30 10/04/20 09:29 DC Sodium Chloride (Nacl 0.9%) 200 ml ASDIRECTED PRN IV SEE LABEL COMMENTS 10/12/20 08:00 10/13/20 07:59 DC Sodium Chloride (Nacl 0.9%) 200 ml ASDIRECTED PRN IV SEE LABEL COMMENTS 10/15/20 08:00 10/16/20 07:59 DC Sodium Chloride (Nacl 0.9%) 200 ml ASDIRECTED PRN IV SEE LABEL COMMENTS 10/17/20 10:00 10/18/20 09:59 DC Sodium Chloride (Nacl 0.9%) 200 ml ASDIRECTED PRN IV SEE LABEL COMMENTS 09/26/20 07:15 09/27/20 07:14 DC Sodium Chloride (Nacl 0.9%) 200 ml ASDIRECTED PRN IV SEE LABEL COMMENTS 09/28/20 07:45 09/29/20 07:44 DC Sodium Chloride (Nacl 0.9%) 200 ml ASDIRECTED PRN IV SEE LABEL COMMENTS 10/01/20 10:30 10/02/20 10:29 DC Sodium Chloride (Saline Lock Flush) 10 ml ASDIRECTED PRN IV SEE LABEL COMMENTS 06/11/20 19:45 06/11/20 19:50 DC Sodium Chloride (Saline Lock Flush) 10 ml ASDIRECTED PRN IV SEE LABEL COMMENTS 06/11/20 19:45 06/20/20 18:55 DC 06/20/20 06:41 Sodium Chloride (Saline Lock Flush) 10 ml PICC IV 06/12/20 06:00 06/11/20 19:49 DC Sodium Chloride (Saline Lock Flush) 10 ml PICC IV 06/12/20 06:00 06/20/20 18:55 DC 06/20/20 06:41 Sucroferric Oxyhydroxide (Velphoro) 500 mg WM PO 11/11/20 18:00 11/15/20 16:12 DC 11/12/20 17:52 Sucroferric Oxyhydroxide (Velphoro) 500 mg WM PO 07/11/20 12:30 09/21/20 12:33 DC 09/15/20 18:12 Vancomycin HCl 1000 mg/IV Miscellaneous Supplies 1 each/ Dextrose 270 ml @ 270 mls/hr HD IV 12/17/20 09:00 12/20/20 10:00 DC 12/19/20 15:55 Vancomycin HCl 1000 mg/IV Miscellaneous Supplies 1 each/ Dextrose 270 ml @ 270 mls/hr Q12H IV 12/14/20 12:00 UNV Vancomycin HCl 1000 mg/IV Miscellaneous Supplies 1 each/ Sodium Chloride 270 ml @ 270 mls/hr HD IV 12/20/20 10:05 12/22/20 23:59 DC 12/21/20 15:19 Vitamin D (Vitamin D) 2,000 units DAILY PO 12/03/20 09:00 12/31/20 07:54 Zinc Oxide (Boudreauxs Butt Paste) 1 dose BID TOP 11/28/20 09:00 12/24/20 16:02 DC 12/24/20 08:00 Allergies Coded Allergies: moxifloxacin (Verified Allergy, Intermediate, RASH, 12/25/19) codeine (Verified Allergy, Unknown, 12/25/19) valsartan (Verified Allergy, Unknown, 12/25/19) Claudette Padron MD Dec 31, 2020 17:48
[2020-12-31 20:00] VITALS: BP 121/58
[2020-12-31] MEDS: PRAMIPEXOLE (MIRAPEX) 0.125 MG TAB PO SCH (21:19)
[2020-12-31] MEDS: SENOKOT S TAB PO SCH (21:19)
[2021-01-01] VITALS (30 sets, daily range): BP systolic 121–165; BP diastolic 56–77; O2SAT 93–99
[2021-01-01] MEDS: guaiFENesin SYRUP 200 MG/10 ML UDC PO SCH ×5 (00:07→23:39)
[2021-01-01] MEDS: ALBUTEROL SULFATE 2.5 MG/0.5 ML INH NEB SOLN NEB PRN ×2 (01:29→05:28)
[2021-01-01 05:45] LABS: HEMATOCRIT 39.3 % (42.0-52.0); HEMOGLOBIN 11.3 g/dl (13.5-17.5); MEAN CORPUSCULAR HEMOGLOBIN 29.9 pg (27.0-33.0); MEAN CORPUSCULAR HGB CONC 28.8 g/dl (32.0-36.5); PLATELET COUNT, AUTOMATED 136 10^3/uL (150-450); RED BLOOD COUNT 3.78 10^6/uL (4.30-6.10); WHITE BLOOD COUNT 10.2 10^3/uL (4.0-10.0)
[2021-01-01 06:00] LABS: ALBUMIN 3.1 GM/DL (3.2-5.2); BILIRUBIN,TOTAL 0.4 MG/DL (0.2-1.0); CREATININE FOR GFR 5.43 MG/DL (0.70-1.30); POTASSIUM SERUM 4.8 MEQ/L (3.5-5.1); TOTAL PROTEIN 6.4 GM/DL (6.4-8.2)
[2021-01-01] MEDS: BUDESONIDE 0.5 MG/2 ML INHALATION SUSPENSION INH SCH ×2 (07:43→19:52)
[2021-01-01] MEDS: FORMOTEROL FUMARATE 20 MCG/2 ML INHALATION SOLUTION (PERFOROMIST) INH SCH ×2 (07:43→19:52)
[2021-01-01] MEDS: ALBUTEROL SULFATE 2.5 MG/0.5 ML INH NEB SOLN NEB SCH ×5 (07:43→23:52)
[2021-01-01] MEDS: (RENVELA) SEVELAMER **CARBONate** 800 MG TAB PO SCH ×3 (08:00→17:45)
[2021-01-01] MEDS: HEPARIN SOD (PORCINE) 5000UNITS/ML 1ML VIAL/SYRINGE SQ SCH ×2 (08:56→20:06)
[2021-01-01] MEDS: SERTRALINE 100 MG TAB PO SCH (08:57)
[2021-01-01] MEDS: AMIODARONE 200 MG TAB (PACERONE) PO SCH (08:57)
[2021-01-01] MEDS: VITAMIN D 1,000 INTERNATIONAL UNITS TABLET PO SCH (08:57)
[2021-01-01] MEDS: PANTOPRAZOLE 40MG TAB (PROTONIX) PO SCH (08:57)
[2021-01-01] MEDS: predniSONE 10 MG TAB PO SCH (08:57)
[2021-01-01] MEDS: MIDODRINE 5 MG TAB PO SCH ×3 (08:58→15:39)
[2021-01-01] MEDS: levETIRAcetam 250MG TABLET (KEPPRA) PO SCH (08:58)
[2021-01-01] MEDS: DIMETHICONE 2% OINTMENT(VANICREAM) 70GM TUBE TOP SCH ×2 (09:00→20:14)
--- NOTE | 2021-01-01 12:34 | CR ---
CONSULTATION DATE: 12/31/2020 Patient seen at the request of Dr. Claudette Padron of the hospitalist service. Mr. Richard has significant mucous plugging episode yesterday with desaturations. His tracheostomy tube was cleared of secretions, and the crisis passed. His tracheostomy tube was replaced about 2 months ago. 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 I will therefore replace it under anesthesia once again with a possible tracheal dilation once again.
--- NOTE | 2021-01-01 13:05 | IPNPDOC ---
Date Seen The patient was seen on 01/01/21. Progress Note SUBJECTIVE: No events overnight. OR today to replace trach. Patient denied chest pain, n/v/d, fevers, chills. OBJECTIVE: PHYSICAL EXAMINATION: VITAL SIGNS: please see below General: NAD, comfortable HEENT: PERRLA, EOMI, sclerae clear Neck: supple, normal ROM, no JVD. Trach with collar Respiratory: lungs CTAB, no wheeze, no rales, no crackles CVS: RRR, normal S1, S2, no murmurs Abdo: soft, no masses, no hepatosplenomegaly, BS+, no rebound tenderness Extremities: trace edema MSK: no joint deformities, normal ROM Neuro: no focal neuro deficits, moving all 4 extremities, CN2-12 intact. Psych: calm, cooperative, AAO x 3 LABORATORY DATA, IMAGING STUDIES, MICROBIOLOGY: Please see below. CXR 12/31/20: Cardiomegaly and elements of pulmonary vascular congestion/interstitial edema cannot be excluded along with possible subtle atelectasis. ASSESSMENT: Mr. Richard is a 50-year-old male with prolonged hospital course, acute on chornic hypoxic and hypercapnic respiratory failure 2/2 to restrictive lung disease from obesity, mucous plugging, difficulty in being placed due to need HD chair, respiratory needs. PLAN: Acute on chronic hypoxic and hypercapnic respiratory failure 2/2 to restrictive lung disease from obesity, mucous plugging -Plan was to change tracheostomy tube on 02/06/2021 but instead will do 01/01/21, f/u post-op -Dr. Ortega consulted -C/w prednisone, albuterol ATC And PRN, pulmicort -Placement is unknown at this time due to some issues with patient not being able to suction himself. Morbid obesity BMI 52.5 Contributing to his restrictive lung disease and complicating care Severe spinal stenosis Continue pain regimen Incontinence-associated dermatitis/moisture associated skin damage - wound consult provided by Dr. Goncalves on 12/25/20 - wound care instructions are ordered. Clean with [employer] baby shampoo, vashe for 10 min, appy interdry. - bilateral heel float boots, ABD pad under straps to protect skin on top of boot End-stage renal disease on hemodialysis/secondary hyperparathyroidism Neurology following and recommendations appreciated - midodrine has been discontinued by nephrology service as patient's BP have been elevated Continue with dialysis Tue,Thus, Sat - PTH > 1000. -C/w calcitriol and sevelamer. GERD Continue PPI Depression/anxiety -Stable, assessed by psych this admission Continue sertraline and clonazepam Paroxysmal atrial fibrillation Continue amiodarone Seizure disorder Continue Keppra Hypotension Continue medication on dialysis days - has had midodrine with dialysis but has recently been hypertensive - will communicate to nephrology to perhaps use as prn Anemia Stable Receives Aranesp at dialysis Debility Chronically bedridden Pending placement at residential Anxiety - C/w clonazepam to 0.5 mg TID prn DVT prophylaxis Heparin subcutaneous DISPOSITION: Inpatient status, OR today, Dr. Ortega consulted. Pending placement to facility with HD chair as well as appropriate trach care. VS, I&O, 24H, Edubone Vital Signs/I&O Vital Signs Date Time Temp Pulse Resp B/P (MAP) Pulse Ox O2 Delivery O2 Flow Rate FiO2 01/01/21 11:42 97.9 66 18 161/77 (105) 93 Trach Collar 5.0 01/01/21 08:30 28 I&O- Last 24 Hours up to 6 AM 01/01/21 06:00 Intake Total 360 ml Output Total 3100 ml Balance -2740 ml Laboratory Data 24H LABS Laboratory Tests 2 12/31/20 14:35: Coronavirus (COVID-19)(PCR) NEGATIVE 01/01/21 04:55: Nucleated Red Blood Cells % (auto) 0.2H, Anion Gap 8, Glomerular Filtration Rate 12.0L, Calcium Level 8.0L, Total Bilirubin 0.4, Aspartate Amino Transf (AST/SGOT) 9, Alanine Aminotransferase (ALT/SGPT) 12, Alkaline Phosphatase 107, Total Protein 6.4, Albumin 3.1L, Albumin/Globulin Ratio 0.9 CBC/BMP Laboratory Tests 01/01/21 04:55 Current Medications Current Medications Medications (Trade) Dose Ordered Sig/Alicia Route PRN Reason Start Time Stop Time Status Last Admin Dose Admin Acetaminophen (Tylenol Tab) 650 mg Q4HP PRN PO PAIN / FEVER 10/10/20 21:00 12/29/20 03:14 Acetaminophen (Tylenol Tab) 650 mg Q6HP PRN PO PAIN / FEVER 06/13/20 04:45 10/10/20 20:58 DC 10/10/20 17:12 Acetylcysteine (Mucomyst 10 % (100mg/ml)) 400 mg RBID INH 10/16/20 08:00 10/28/20 09:59 DC 10/28/20 07:08 Acetylcysteine (Mucomyst 20% (200mg/ml)) 400 mg RBID INH 10/28/20 20:00 12/15/20 08:41 DC 12/14/20 19:23 Albuterol Sulfate (Proventil Neb) 2.5 mg Q2HP PRN NEB SOB/WHEEZING 10/16/20 11:30 12/21/20 08:28 DC 12/21/20 03:34 Albuterol Sulfate (Proventil Neb) 2.5 mg RQ4H PRN NEB SOB/WHEEZING 12/21/20 08:25 01/01/21 05:28 Albuterol Sulfate (Proventil Neb) 2.5 mg RQID NEB 10/16/20 12:00 01/01/21 11:21 Albuterol/ Ipratropium (Duoneb (Ipr 0.5mg/Alb 2.5mg)) 3 ml Q2H PRN NEB SHORTNESS OF BREATH 06/11/20 19:45 10/16/20 11:16 DC 10/15/20 16:52 Albuterol/ Ipratropium (Duoneb (Ipr 0.5mg/Alb 2.5mg)) 3 ml Q6H PRN NEB SOB/WHEEZING 06/11/20 19:45 06/11/20 19:45 DC Albuterol/ Ipratropium (Duoneb (Ipr 0.5mg/Alb 2.5mg)) 3 ml RQ4H NEB 07/25/20 16:00 10/16/20 11:16 DC 10/16/20 08:46 Albuterol/ Ipratropium (Duoneb (Ipr 0.5mg/Alb 2.5mg)) 3 ml RQ6H NEB 12/13/20 14:00 12/21/20 08:28 DC 12/21/20 01:03 Albuterol/ Ipratropium (Duoneb (Ipr 0.5mg/Alb 2.5mg)) 3 ml RQ6H NEB 06/11/20 20:00 07/25/20 15:32 DC 07/25/20 13:55 Alprazolam (Xanax) 0.25 mg Q6H PRN PO ANXIETY 06/11/20 19:45 10/13/20 13:17 DC 10/12/20 21:31 Amiodarone HCl (Pacerone, Cordarone) 200 mg DAILY PO 06/12/20 09:00 01/01/21 08:57 Amlodipine Besylate (Norvasc) 5 mg DAILY PO 10/06/20 09:00 10/08/20 18:19 DC 10/08/20 08:19 Amlodipine Besylate (Norvasc) 10 mg DAILY PO 08/29/20 09:00 10/05/20 18:17 DC 10/05/20 06:06 Azithromycin 500 mg/IV Miscellaneous Supplies 1 each/ Dextrose 255 ml @ 255 mls/hr Q24H IV 12/13/20 22:00 12/13/20 22:12 DC Benzonatate (Tessalon Perles) 100 mg Q8HP PRN PO COUGH 06/13/20 01:15 12/02/20 10:56 DC 06/13/20 12:18 Bisacodyl (Dulcolax Suppository) 10 mg DAILYPRN PRN [place] CONSTIPATION 06/11/20 19:45 06/15/20 16:46 DC Bisacodyl (Dulcolax Tab) 5 mg DAILY PO 06/16/20 09:00 08/04/20 17:40 DC 08/04/20 10:46 Budesonide (Pulmicort) 0.5 mg RBID INH 12/21/20 08:00 01/01/21 07:43 Calcitriol (Rocaltrol) 0.25 mcg Q48H PO 12/25/20 09:00 12/31/20 07:55 Carbamide Peroxide (Debrox) 3 drop BID 06/12/20 21:00 06/16/20 09:01 DC 06/13/20 12:17 Ceftriaxone Sodium 2 gm/ Dextrose 50 ml @ 100 mls/hr Q24H IV 12/13/20 21:00 12/14/20 12:03 DC 12/13/20 20:36 Clonazepam (KlonoPIN) 0.25 mg Q6HP PRN PO anxiety 10/13/20 13:15 10/20/20 13:14 DC 12/26/20 22:24 Clonazepam (KlonoPIN) 0.25 mg Q6HP PRN PO ANXIETY 10/20/20 21:00 12/25/20 12:17 DC 12/25/20 09:08 Clonazepam (KlonoPIN) 0.5 mg Q8HP PRN PO ANXIETY 12/25/20 13:00 12/25/20 14:24 DC Clonazepam (KlonoPIN) 0.5 mg Q8HP PRN PO ANXIETY 12/25/20 18:45 12/31/20 21:28 Cod Liver Oil/ Zinc Oxide (Desitin) 1 dose BID TOP 12/24/20 21:00 12/25/20 13:48 DC 12/25/20 08:58 COVID-19 Vacc mRNA LNP-S (MOD) (PF) (Moderna Covid19 Vacc(Unapprov)) 100 mcg ASDIRECTED PRN IM COVID Vaccination 12/19/20 05:00 12/19/20 14:00 DC 12/19/20 14:00 Darbepoetin Jairo (Aranesp (Dialysis Use)) 100 mcg HD IV 08/06/20 11:45 09/03/20 07:41 DC Darbepoetin Jairo (Aranesp (Dialysis Use)) 100 mcg HD IV 09/03/20 07:30 09/16/20 08:11 DC 09/10/20 09:01 Darbepoetin Jairo (Aranesp (Dialysis Use)) 200 mcg HD IV 11/19/20 12:30 12/26/20 09:17 Darbepoetin Jairo (Aranesp (Dialysis Use)) 200 mcg HD IV 10/31/20 10:30 11/19/20 12:25 DC 11/13/20 11:56 Darbepoetin Jairo (Aranesp (Dialysis Use)) 200 mcg HD IV 10/08/20 18:30 10/31/20 10:17 DC 10/24/20 10:47 Dimethicone (Vanicream Ointment) 1 dose BID TOP 11/27/20 09:00 12/31/20 07:56 Diphenhydramine HCl (Benadryl) 50 mg ONCE PRN IV ALLERGIC REACTION 12/19/20 13:40 12/19/20 23:59 DC Emollient Cream (Vanicream) to bilateral lo... DAILY TOP 10/12/20 09:00 09/09/20 11:17 DC 09/08/20 09:44 Emollient Cream (Vanicream) to bilateral lo... DAILY PRN TOP DRY SKIN 09/09/20 11:15 11/27/20 13:12 DC 09/28/20 22:12 Epinephrine HCl (Adrenalin) 0.3 mg ONCE PRN IM ALLERGIC REACTION 12/19/20 13:45 12/19/20 23:59 DC Erythromycin (Ilotycin) 1 CM RIBBON TID OU 11/20/20 16:00 11/27/20 16:00 DC 11/27/20 16:49 Fentanyl Citrate (Sublimaze) 25 mcg Q5MP PRN IV PAIN LEVEL 5-10 11/08/20 13:00 11/08/20 14:00 DC Formoterol Fumarate (Perforomist) 20 mcg RBID INH 12/21/20 08:00 01/01/21 07:43 Guaifenesin (Robitussin) 5 ml Q6H PO 07/28/20 12:00 01/01/21 06:37 Heparin Sodium (Heparin (Flush)) 200 units ASDIRECTED PRN IV SEE LABEL COMMENTS 06/11/20 19:45 06/11/20 19:49 DC Heparin Sodium (Heparin (Flush)) 200 units ASDIRECTED PRN IV SEE LABEL COMMENTS 06/11/20 19:45 06/20/20 18:55 DC 06/20/20 06:42 Heparin Sodium (Heparin (Flush)) 200 units PICC IV 06/12/20 06:00 06/11/20 19:48 DC Heparin Sodium (Heparin (Flush)) 200 units PICC IV 06/12/20 06:00 06/20/20 18:55 DC 06/20/20 06:41 Heparin Sodium (Heparin) 9,000 units ASDIRECTED XX 10/03/20 10:55 10/04/20 09:29 DC Heparin Sodium (Heparin) 9,000 units ASDIRECTED XX 09/26/20 13:04 09/27/20 07:14 DC Heparin Sodium (Heparin) Please refer to ... ASDIRECTED XX 11/05/20 08:00 11/06/20 07:59 DC Heparin Sodium (Heparin) Please refer to ... ASDIRECTED XX 11/07/20 08:00 11/08/20 07:59 DC Heparin Sodium (Heparin) Please refer to ... ASDIRECTED XX 11/09/20 08:00 11/10/20 07:59 DC Heparin Sodium (Heparin) Please refer to ... ASDIRECTED XX 11/11/20 08:30 11/12/20 08:29 DC Heparin Sodium (Heparin) Please refer to ... ASDIRECTED XX 11/13/20 12:45 11/14/20 12:44 DC Heparin Sodium (Heparin) Please refer to ... ASDIRECTED XX 11/15/20 10:00 11/16/20 09:59 DC Heparin Sodium (Heparin) Please refer to ... ASDIRECTED XX 10/28/20 12:45 10/29/20 12:44 DC Heparin Sodium (Heparin) Please refer to ... ASDIRECTED XX 10/29/20 12:00 10/30/20 11:59 DC Heparin Sodium (Heparin) Please refer to ... ASDIRECTED XX 10/30/20 22:45 10/31/20 22:44 DC Heparin Sodium (Heparin) Please refer to ... ASDIRECTED XX 11/02/20 08:00 11/03/20 07:59 DC Heparin Sodium (Heparin) Please refer to ... ASDIRECTED XX 11/25/20 08:00 11/26/20 07:59 DC Heparin Sodium (Heparin) Please refer to ... ASDIRECTED XX 12/05/20 10:15 12/06/20 10:14 DC Heparin Sodium (Heparin) Please refer to ... ASDIRECTED XX 12/07/20 09:00 12/08/20 08:59 DC Heparin Sodium (Heparin) Please refer to ... ASDIRECTED XX 12/14/20 07:00 12/15/20 06:59 DC Heparin Sodium (Heparin) Please refer to ... ASDIRECTED XX 12/17/20 07:00 12/18/20 06:59 DC Heparin Sodium (Heparin) Please refer to ... ASDIRECTED XX 12/19/20 07:00 12/20/20 06:59 DC Heparin Sodium (Heparin) Please refer to ... ASDIRECTED XX 12/21/20 09:00 12/22/20 08:59 DC Heparin Sodium (Heparin) Please refer to ... ASDIRECTED XX 11/27/20 10:30 11/28/20 10:29 DC Heparin Sodium (Heparin) Please refer to ... ASDIRECTED XX 11/30/20 07:00 12/01/20 06:59 DC Heparin Sodium (Heparin) Please refer to ... ASDIRECTED XX 12/03/20 07:45 12/04/20 07:44 DC Heparin Sodium (Heparin) Please refer to ... ASDIRECTED XX 12/23/20 14:10 12/24/20 14:09 Cancel Heparin Sodium (Heparin) Please refer to ... ASDIRECTED XX 12/24/20 08:00 12/25/20 07:59 DC Heparin Sodium (Heparin) Please refer to ... ASDIRECTED XX 12/26/20 08:20 12/27/20 08:19 DC Heparin Sodium (Heparin) Please refer to ... ASDIRECTED XX 09/20/20 17:45 09/21/20 17:44 DC Heparin Sodium (Heparin) Please refer to ... ASDIRECTED XX 09/24/20 07:15 09/25/20 07:14 DC Heparin Sodium (Heparin) Please refer to ... ASDIRECTED XX 10/03/20 09:30 10/03/20 10:55 DC Heparin Sodium (Heparin) Please refer to ... ASDIRECTED XX 10/12/20 08:00 10/13/20 07:59 DC Heparin Sodium (Heparin) Please refer to ... ASDIRECTED XX 10/15/20 08:00 10/16/20 07:59 DC Heparin Sodium (Heparin) Please refer to ... ASDIRECTED XX 10/17/20 10:00 10/18/20 09:59 DC Heparin Sodium (Heparin) Please refer to ... ASDIRECTED XX 10/19/20 08:00 10/20/20 07:59 DC Heparin Sodium (Heparin) Please refer to ... ASDIRECTED XX 09/26/20 07:15 09/26/20 13:04 DC Heparin Sodium (Heparin) Please refer to ... ASDIRECTED XX 09/28/20 07:45 09/29/20 07:44 DC Heparin Sodium (Heparin) dose as per volume indica... ASDIRECTED PRN IV SEE LABEL COMMENTS 11/05/20 08:00 11/05/20 11:59 DC Heparin Sodium (Heparin) dose as per volume indica... ASDIRECTED PRN IV SEE LABEL COMMENTS 11/07/20 08:00 11/07/20 20:59 DC Heparin Sodium (Heparin) dose as per volume indica... ASDIRECTED PRN IV SEE LABEL COMMENTS 11/09/20 08:00 11/09/20 21:59 DC Heparin Sodium (Heparin) dose as per volume indica... ASDIRECTED PRN IV SEE LABEL COMMENTS 11/02/20 08:00 11/02/20 20:14 DC Heparin Sodium (Heparin) dose as per volume indica... ASDIRECTED PRN IV SEE LABEL COMMENTS 11/25/20 08:00 11/25/20 20:44 DC Heparin Sodium (Heparin) dose as per volume indica... ASDIRECTED PRN IV SEE LABEL COMMENTS 09/04/20 11:30 09/05/20 08:25 DC Heparin Sodium (Heparin) dose as per volume indica... ASDIRECTED PRN IV SEE LABEL COMMENTS 09/04/20 11:30 09/05/20 08:25 DC Heparin Sodium (Porcine) (Heparin) 5,000 units BID SQ 10/23/20 09:00 01/01/21 08:56 Heparin Sodium (Porcine) (Heparin) 5,000 units Q8H SQ 06/11/20 22:00 06/13/20 15:19 DC 06/13/20 12:17 Heparin Sodium (Porcine) (Heparin) 5,000 units Q8H SQ 07/25/20 22:00 10/22/20 22:18 DC 10/22/20 21:21 Home Med (Med Rec Complete!) ASDIRECTED XX 06/12/20 10:15 06/12/20 10:08 DC Hydralazine HCl (Apresoline) 10 mg Q6H PRN PO SBP>170 06/11/20 19:45 08/06/20 11:39 DC 06/19/20 22:01 Iron (Venofer) 100 mg HD IV 11/13/20 12:30 11/25/20 10:02 DC 11/22/20 10:43 Iron (Venofer) 100 mg HD IV 07/11/20 11:30 11/3/20 13:16 DC Lactated Ringer's 1,000 ml @ 100 mls/hr Q10H IV 11/08/20 13:00 11/08/20 14:00 DC Levetiracetam (Keppra) 500 mg DAILY PO 06/12/20 09:00 01/01/21 08:58 Lidocaine (Lidoderm Patch) 1 patch DAILY TD 06/12/20 09:00 09/09/20 11:57 DC 07/13/20 06:43 Lidocaine (Lidoderm Patch) 1 patch DAILY PRN TD BACK PAIN 09/09/20 12:00 09/09/20 14:17 DC Lidocaine HCl (Lidocaine 1% Sdv) 0.5 ml ASDIRECTED PRN SC SEE LABEL COMMENTS 11/05/20 08:00 11/05/20 11:59 DC Lidocaine HCl (Lidocaine 1% Sdv) 0.5 ml ASDIRECTED PRN SC SEE LABEL COMMENTS 11/07/20 08:00 11/07/20 20:59 DC Lidocaine HCl (Lidocaine 1% Sdv) 0.5 ml ASDIRECTED PRN SC SEE LABEL COMMENTS 11/09/20 08:00 11/09/20 21:59 DC Lidocaine HCl (Lidocaine 1% Sdv) 0.5 ml ASDIRECTED PRN SC SEE LABEL COMMENTS 11/11/20 08:30 11/12/20 08:29 DC Lidocaine HCl (Lidocaine 1% Sdv) 0.5 ml ASDIRECTED PRN SC SEE LABEL COMMENTS 11/13/20 12:45 11/14/20 12:44 DC Lidocaine HCl (Lidocaine 1% Sdv) 0.5 ml ASDIRECTED PRN SC SEE LABEL COMMENTS 11/15/20 10:00 11/16/20 09:59 DC Lidocaine HCl (Lidocaine 1% Sdv) 0.5 ml ASDIRECTED PRN SC SEE LABEL COMMENTS 10/28/20 12:45 10/29/20 12:44 DC Lidocaine HCl (Lidocaine 1% Sdv) 0.5 ml ASDIRECTED PRN SC SEE LABEL COMMENTS 10/29/20 12:00 10/30/20 11:59 DC Lidocaine HCl (Lidocaine 1% Sdv) 0.5 ml ASDIRECTED PRN SC SEE LABEL COMMENTS 10/30/20 22:45 10/31/20 22:44 DC Lidocaine HCl (Lidocaine 1% Sdv) 0.5 ml ASDIRECTED PRN SC SEE LABEL COMMENTS 11/02/20 08:00 11/02/20 20:14 DC Lidocaine HCl (Lidocaine 1% Sdv) 0.5 ml ASDIRECTED PRN SC SEE LABEL COMMENTS 11/25/20 08:00 11/25/20 20:44 DC Lidocaine HCl (Lidocaine 1% Sdv) 0.5 ml ASDIRECTED PRN SC SEE LABEL COMMENTS 12/05/20 10:15 12/06/20 10:14 DC Lidocaine HCl (Lidocaine 1% Sdv) 0.5 ml ASDIRECTED PRN SC SEE LABEL COMMENTS 12/07/20 09:00 12/08/20 08:59 DC Lidocaine HCl (Lidocaine 1% Sdv) 0.5 ml ASDIRECTED PRN SC SEE LABEL COMMENTS 12/14/20 07:00 12/15/20 06:59 DC Lidocaine HCl (Lidocaine 1% Sdv) 0.5 ml ASDIRECTED PRN SC SEE LABEL COMMENTS 12/17/20 07:00 12/17/20 11:14 DC Lidocaine HCl (Lidocaine 1% Sdv) 0.5 ml ASDIRECTED PRN SC SEE LABEL COMMENTS 12/19/20 07:00 12/20/20 06:59 DC Lidocaine HCl (Lidocaine 1% Sdv) 0.5 ml ASDIRECTED PRN SC SEE LABEL COMMENTS 12/21/20 09:00 12/22/20 08:59 DC Lidocaine HCl (Lidocaine 1% Sdv) 0.5 ml ASDIRECTED PRN SC SEE LABEL COMMENTS 11/27/20 10:30 11/28/20 10:29 DC Lidocaine HCl (Lidocaine 1% Sdv) 0.5 ml ASDIRECTED PRN SC SEE LABEL COMMENTS 11/30/20 07:00 11/30/20 09:14 DC Lidocaine HCl (Lidocaine 1% Sdv) 0.5 ml ASDIRECTED PRN SC SEE LABEL COMMENTS 12/03/20 07:45 12/04/20 07:44 DC Lidocaine HCl (Lidocaine 1% Sdv) 0.5 ml ASDIRECTED PRN SC SEE LABEL COMMENTS 12/23/20 14:10 12/24/20 14:09 Cancel Lidocaine HCl (Lidocaine 1% Sdv) 0.5 ml ASDIRECTED PRN SC SEE LABEL COMMENTS 12/24/20 08:00 12/25/20 07:59 DC Lidocaine HCl (Lidocaine 1% Sdv) 0.5 ml ASDIRECTED PRN SC SEE LABEL COMMENTS 12/26/20 08:20 12/27/20 08:19 DC Lidocaine HCl (Lidocaine 1% Sdv) 0.5 ml ASDIRECTED PRN SC SEE LABEL COMMENTS 09/04/20 11:30 09/05/20 08:26 DC Lidocaine HCl (Lidocaine 1% Sdv) 0.5 ml ASDIRECTED PRN SC SEE LABEL COMMENTS 09/04/20 11:30 09/05/20 08:26 DC Lidocaine HCl (Lidocaine 1% Sdv) 0.5 ml ASDIRECTED PRN SC SEE LABEL COMMENTS 09/07/20 07:30 09/08/20 07:29 DC Lidocaine HCl (Lidocaine 1% Sdv) 0.5 ml ASDIRECTED PRN SC SEE LABEL COMMENTS 09/07/20 07:30 09/08/20 07:29 DC Lidocaine HCl (Lidocaine 1% Sdv) 0.5 ml ASDIRECTED PRN SC SEE LABEL COMMENTS 09/21/20 08:00 09/21/20 17:44 DC Lidocaine HCl (Lidocaine 1% Sdv) 0.5 ml ASDIRECTED PRN SC SEE LABEL COMMENTS 09/24/20 07:15 09/25/20 07:14 DC Lidocaine HCl (Lidocaine 1% Sdv) 0.5 ml ASDIRECTED PRN SC SEE LABEL COMMENTS 10/03/20 09:30 10/04/20 09:29 DC Lidocaine HCl (Lidocaine 1% Sdv) 0.5 ml ASDIRECTED PRN SC SEE LABEL COMMENTS 10/12/20 08:00 10/13/20 07:59 DC Lidocaine HCl (Lidocaine 1% Sdv) 0.5 ml ASDIRECTED PRN SC SEE LABEL COMMENTS 10/15/20 08:00 10/15/20 20:59 DC Lidocaine HCl (Lidocaine 1% Sdv) 0.5 ml ASDIRECTED PRN SC SEE LABEL COMMENTS 10/17/20 10:00 10/18/20 09:59 DC Lidocaine HCl (Lidocaine 1% Sdv) 0.5 ml ASDIRECTED PRN SC SEE LABEL COMMENTS 10/19/20 08:00 10/19/20 12:59 DC Lidocaine HCl (Lidocaine 1% Sdv) 0.5 ml ASDIRECTED PRN SC SEE LABEL COMMENTS 09/26/20 07:15 09/27/20 07:14 DC Lidocaine HCl (Lidocaine 1% Sdv) 0.5 ml ASDIRECTED PRN SC SEE LABEL COMMENTS 10/01/20 10:30 10/02/20 10:29 DC Methylprednisolone (SOLUmedrol) 60 mg Q12H IV 12/22/20 18:00 12/23/20 11:30 DC 12/23/20 06:23 Methylprednisolone (SOLUmedrol) 60 mg Q6H IV 12/20/20 18:00 12/21/20 10:16 DC 12/21/20 05:59 Methylprednisolone (SOLUmedrol) 60 mg Q8H IV 12/21/20 14:00 12/22/20 07:39 DC 12/22/20 06:21 Midodrine (Proamatine) 5 mg MoWeFr@0900 PO 11/20/20 09:00 12/02/20 09:00 DC 11/30/20 08:29 Midodrine (Proamatine) 5 mg TuThSa@0900 PO 11/05/20 09:00 11/19/20 10:13 DC 11/18/20 08:24 Midodrine (Proamatine) 5 mg TuThSa@0900 PO 12/03/20 09:00 12/25/20 10:04 DC 12/24/20 07:58 Midodrine (Proamatine) 10 mg 08,12,16 PO 12/31/20 12:00 01/01/21 08:58 Midodrine (Proamatine) 10 mg ASDIRECTED PO 06/11/20 20:30 08/31/20 21:12 DC 08/10/20 06:14 Midodrine (Proamatine) 10 mg HD PO 06/11/20 21:00 06/11/20 20:22 DC Miscellaneous (Unresolved Clarification Entry) SEE LABEL COMMENTS DAILY XX 11/24/20 09:00 11/24/20 12:58 DC Miscellaneous (Unresolved Clarification Entry) SEE LABEL COMMENTS DAILY XX 10/29/20 09:00 10/29/20 09:54 DC Miscellaneous (Unresolved Clarification Entry) SEE LABEL COMMENTS DAILY XX 11/01/20 09:00 11/05/20 08:43 DC 11/04/20 08:23 Miscellaneous (Unresolved Clarification Entry) SEE LABEL COMMENTS DAILY XX 06/24/20 09:00 06/25/20 12:54 DC Miscellaneous (Unresolved Clarification Entry) SEE LABEL COMMENTS DAILY XX 09/29/20 09:00 09/29/20 12:49 DC Non-Formulary Medication ( See Comment Field Below ) CHECK TO SEE IF THE PATIENT... DAILY@0800 XX 06/27/20 08:00 09/01/20 18:17 DC 08/10/20 06:36 Non-Formulary Medication ( See Comment Field Below ) CHECK TO SEE IF THE PATIENT... DAILY@1600 XX 12/17/20 16:00 12/22/20 23:59 DC 12/21/20 15:21 Non-Formulary Medication ( See Comment Field Below ) REMOVE LIDODERM PATCH DAILY@21 XX 06/11/20 21:00 09/09/20 11:57 DC 09/04/20 21:00 Non-Formulary Medication ( See Comment Field Below ) REMOVE LIDODERM PATCH DAILY@21 PRN XX BACK PAIN 09/09/20 12:00 09/09/20 14:17 DC Nystatin (Mycostatin Powder, Nystop) Apply to groin folds BIDP PRN TOP REDNESS/IRRITATION 08/27/20 01:00 09/25/20 01:24 DC Nystatin (Mycostatin Powder, Nystop) apply to groin area daily DAILY TOP 11/25/20 09:00 12/25/20 13:48 DC 12/25/20 08:58 Ondansetron HCl (ZOFRAN INJection) 4 mg Q4HP PRN IV NAUSEA OR VOMITING 11/08/20 13:00 11/08/20 14:00 DC Ondansetron HCl (Zofran) 4 mg Q6HP PRN PO NAUSEA OR VOMITING 07/08/20 12:45 12/09/20 11:37 Oxycodone HCl (Roxicodone, Oxyir) 10 mg Q4H PRN PO PAIN 06/11/20 19:45 10/19/20 15:15 DC 10/18/20 22:28 Oxycodone HCl (Roxicodone, Oxyir) 10 mg Q4HP PRN PO SEVERE PAIN (PS 8-10) 10/19/20 22:15 10/20/20 10:15 DC 10/19/20 22:23 Oxycodone HCl (Roxicodone, Oxyir) 10 mg Q4HP PRN PO SEVERE PAIN (PS 8-10) 10/20/20 21:00 10/22/20 22:18 DC 10/22/20 21:20 Oxycodone HCl (Roxicodone, Oxyir) 10 mg Q8HP PRN PO SEVERE PAIN (PS 8-10) 10/22/20 22:30 12/31/20 21:26 Pantoprazole Sodium (Protonix) 40 mg DAILY PO 06/12/20 09:00 01/01/21 08:57 Phenol (Chloraseptic Bokeelia) 1 spray Q2HP PRN MT SORE THROAT 10/09/20 08:45 12/29/20 00:44 Piperacillin Sod/ Tazobactam Sod 2.25 gm/Dextrose 50 ml @ 100 mls/hr Q8H IV 12/14/20 17:00 12/22/20 23:59 DC 12/22/20 17:18 Piperacillin Sod/ Tazobactam Sod 3.375 gm/Dextrose 50 ml @ 50 mls/hr Q6H IV 12/14/20 12:15 UNV Polyethylene Glycol (Miralax) 1 pkt DAILY PRN PO CONSTIPATION 06/11/20 19:45 06/15/20 16:45 DC Polyethylene Glycol (Miralax) 1 pkt DAILYPRN PRN PO CONSTIPATION 08/04/20 17:45 Polymyxin/ Trimethoprim Sulfate (Polytrim Ophth Drops) 1 drop 6XD OU 08/03/20 15:00 08/10/20 12:00 DC 08/10/20 06:13 Pramipexole Dihydrochloride (Mirapex) 0.125 mg QHS PO 06/11/20 21:00 12/31/20 21:19 Prednisone (Deltasone) Taper DAILY PO 12/24/20 09:00 01/02/21 08:59 01/01/21 08:57 Prednisone (Deltasone) 30 mg Taper DAILY PO 12/21/20 09:00 12/20/20 18:32 DC Prednisone (Deltasone) 40 mg DAILY PO 12/14/20 09:00 12/20/20 13:37 DC 12/20/20 09:25 Salmeterol Xinafoate/ Fluticasone (Advair Hfa ) 2 puff RBID INH 12/13/20 08:00 12/21/20 08:28 DC 12/20/20 20:12 Senna/Docusate Sodium (Senokot S) 2 tab QHS PO 08/04/20 21:00 12/31/20 21:19 Sertraline HCl (Zoloft) 100 mg DAILY PO 06/12/20 09:00 09/30/20 11:35 DC 09/30/20 09:50 Sertraline HCl (Zoloft) 150 mg DAILY PO 10/01/20 09:00 10/13/20 13:17 DC 10/13/20 10:21 Sertraline HCl (Zoloft) 200 mg DAILY PO 10/14/20 09:00 01/01/21 08:57 Sevelamer Carbonate (Renvela) 2,400 mg WM PO 06/12/20 08:00 11/15/20 16:12 DC 11/15/20 13:15 Sevelamer Carbonate (Renvela) 4,000 mg WM PO 11/15/20 18:00 12/31/20 18:15 Sodium Chloride (Nacl 0.9%) 200 ml ASDIRECTED PRN IV SEE LABEL COMMENTS 11/07/20 08:00 11/08/20 07:59 DC Sodium Chloride (Nacl 0.9%) 200 ml ASDIRECTED PRN IV SEE LABEL COMMENTS 11/09/20 08:00 11/10/20 07:59 DC Sodium Chloride (Nacl 0.9%) 200 ml ASDIRECTED PRN IV SEE LABEL COMMENTS 11/11/20 08:30 11/12/20 08:29 DC Sodium Chloride (Nacl 0.9%) 200 ml ASDIRECTED PRN IV SEE LABEL COMMENTS 11/13/20 12:45 11/14/20 12:44 DC Sodium Chloride (Nacl 0.9%) 200 ml ASDIRECTED PRN IV SEE LABEL COMMENTS 11/15/20 10:00 11/16/20 09:59 DC Sodium Chloride (Nacl 0.9%) 200 ml ASDIRECTED PRN IV SEE LABEL COMMENTS 10/28/20 12:45 10/29/20 12:44 DC Sodium Chloride (Nacl 0.9%) 200 ml ASDIRECTED PRN IV SEE LABEL COMMENTS 10/29/20 12:00 10/30/20 11:59 DC Sodium Chloride (Nacl 0.9%) 200 ml ASDIRECTED PRN IV SEE LABEL COMMENTS 10/30/20 22:45 10/31/20 22:44 DC Sodium Chloride (Nacl 0.9%) 200 ml ASDIRECTED PRN IV SEE LABEL COMMENTS 12/05/20 10:15 12/06/20 10:14 DC Sodium Chloride (Nacl 0.9%) 200 ml ASDIRECTED PRN IV SEE LABEL COMMENTS 12/07/20 09:00 12/08/20 08:59 DC Sodium Chloride (Nacl 0.9%) 200 ml ASDIRECTED PRN IV SEE LABEL COMMENTS 12/14/20 07:00 12/15/20 06:59 DC Sodium Chloride (Nacl 0.9%) 200 ml ASDIRECTED PRN IV SEE LABEL COMMENTS 12/21/20 09:00 12/22/20 08:59 DC Sodium Chloride (Nacl 0.9%) 200 ml ASDIRECTED PRN IV SEE LABEL COMMENTS 12/03/20 07:45 12/04/20 07:44 DC Sodium Chloride (Nacl 0.9%) 200 ml ASDIRECTED PRN IV SEE LABEL COMMENTS 12/23/20 14:10 12/24/20 14:09 Cancel Sodium Chloride (Nacl 0.9%) 200 ml ASDIRECTED PRN IV SEE LABEL COMMENTS 12/24/20 08:00 12/25/20 07:59 DC Sodium Chloride (Nacl 0.9%) 200 ml ASDIRECTED PRN IV SEE LABEL COMMENTS 12/26/20 08:20 12/27/20 08:19 DC Sodium Chloride (Nacl 0.9%) 200 ml ASDIRECTED PRN IV SEE LABEL COMMENTS 09/03/20 07:30 09/05/20 08:26 DC Sodium Chloride (Nacl 0.9%) 200 ml ASDIRECTED PRN IV SEE LABEL COMMENTS 09/04/20 11:30 09/10/20 10:39 DC Sodium Chloride (Nacl 0.9%) 200 ml ASDIRECTED PRN IV SEE LABEL COMMENTS 09/07/20 07:30 09/10/20 10:39 DC Sodium Chloride (Nacl 0.9%) 200 ml ASDIRECTED PRN IV SEE LABEL COMMENTS 09/12/20 08:00 09/24/20 08:57 DC Sodium Chloride (Nacl 0.9%) 200 ml ASDIRECTED PRN IV SEE LABEL COMMENTS 09/24/20 07:15 09/25/20 07:14 DC Sodium Chloride (Nacl 0.9%) 200 ml ASDIRECTED PRN IV SEE LABEL COMMENTS 10/03/20 09:30 10/04/20 09:29 DC Sodium Chloride (Nacl 0.9%) 200 ml ASDIRECTED PRN IV SEE LABEL COMMENTS 10/12/20 08:00 10/13/20 07:59 DC Sodium Chloride (Nacl 0.9%) 200 ml ASDIRECTED PRN IV SEE LABEL COMMENTS 10/15/20 08:00 10/16/20 07:59 DC Sodium Chloride (Nacl 0.9%) 200 ml ASDIRECTED PRN IV SEE LABEL COMMENTS 10/17/20 10:00 10/18/20 09:59 DC Sodium Chloride (Nacl 0.9%) 200 ml ASDIRECTED PRN IV SEE LABEL COMMENTS 09/26/20 07:15 09/27/20 07:14 DC Sodium Chloride (Nacl 0.9%) 200 ml ASDIRECTED PRN IV SEE LABEL COMMENTS 09/28/20 07:45 09/29/20 07:44 DC Sodium Chloride (Nacl 0.9%) 200 ml ASDIRECTED PRN IV SEE LABEL COMMENTS 10/01/20 10:30 10/02/20 10:29 DC Sodium Chloride (Saline Lock Flush) 10 ml ASDIRECTED PRN IV SEE LABEL COMMENTS 06/11/20 19:45 06/11/20 19:50 DC Sodium Chloride (Saline Lock Flush) 10 ml ASDIRECTED PRN IV SEE LABEL COMMENTS 06/11/20 19:45 06/20/20 18:55 DC 06/20/20 06:41 Sodium Chloride (Saline Lock Flush) 10 ml PICC IV 06/12/20 06:00 06/11/20 19:49 DC Sodium Chloride (Saline Lock Flush) 10 ml PICC IV 06/12/20 06:00 06/20/20 18:55 DC 06/20/20 06:41 Sucroferric Oxyhydroxide (Velphoro) 500 mg WM PO 11/11/20 18:00 11/15/20 16:12 DC 11/12/20 17:52 Sucroferric Oxyhydroxide (Velphoro) 500 mg WM PO 07/11/20 12:30 09/21/20 12:33 DC 09/15/20 18:12 Vancomycin HCl 1000 mg/IV Miscellaneous Supplies 1 each/ Dextrose 270 ml @ 270 mls/hr HD IV 12/17/20 09:00 12/20/20 10:00 DC 12/19/20 15:55 Vancomycin HCl 1000 mg/IV Miscellaneous Supplies 1 each/ Dextrose 270 ml @ 270 mls/hr Q12H IV 12/14/20 12:00 UNV Vancomycin HCl 1000 mg/IV Miscellaneous Supplies 1 each/ Sodium Chloride 270 ml @ 270 mls/hr HD IV 12/20/20 10:05 12/22/20 23:59 DC 12/21/20 15:19 Vitamin D (Vitamin D) 2,000 units DAILY PO 12/03/20 09:00 01/01/21 08:57 Zinc Oxide (Boudreauxs Butt Paste) 1 dose BID TOP 11/28/20 09:00 12/24/20 16:02 DC 12/24/20 08:00 Allergies Coded Allergies: moxifloxacin (Verified Allergy, Intermediate, RASH, 12/25/19) codeine (Verified Allergy, Unknown, 12/25/19) valsartan (Verified Allergy, Unknown, 12/25/19) Claudette Padron MD Jan 01, 2021 13:05
[2021-01-01] MEDS ORDERED: LIDOCAINE 2% 100MG/5ML SDV (FOR ANES.) As Ordered ONE (13:15)
[2021-01-01] MEDS ORDERED: fentaNYL 100 MCG/2 ML INJECTION (J3010) As Ordered ONE (13:15)
[2021-01-01] MEDS ORDERED: propofoL 200 MG/20 ML VIAL As Ordered ONE (13:15)
[2021-01-01] MEDS ORDERED: MIDAZOLAM INJ 2MG/2ML VIAL (J2250 PER 1MG) As Ordered ONE (13:18)
[2021-01-01] MEDS ORDERED: KETAMINE HCL 200 MG/20 ML VIAL As Ordered ONE (14:10)
[2021-01-01] MEDS ORDERED: ONDANSETRON 4MG/2ML VIAL IV PRN (14:50)
[2021-01-01] MEDS ORDERED: LR 1,000 ML IV SCH (14:50)
--- NOTE | 2021-01-01 14:53 | RO ---
OPERATIVE NOTE DATE OF OPERATION: 01/01/2021 PREOPERATIVE DIAGNOSES: 1. Mucous plugging. 2. Tracheostomy aging. POSTOPERATIVE DIAGNOSES: 1. Mucous plugging. 2. Tracheostomy aging. PROCEDURES: 1. Bronchoscopy. 2. Clearance of mucous plugging. 3. Replacement of tracheostomy tube with tracheal dilation. SURGEON: Dr. Anatoly Ortega DESCRIPTION OF PROCEDURE: Under satisfactory general anesthesia, patient was prepped and draped in the usual sterile fashion. Patient continued to breathe on his own, however. The old tracheostomy tube was removed, and a new tracheostomy tube over a dilator was then placed with relative ease. Wire and dilator were removed. The bronchoscope was then placed into the tracheobronchial tree. There were copious amounts of secretions, which were removed by suction aspiration. All segments and subsegments were cleared by the end of the bronchoscopy. Tracheostomy tube was secured to the neck with a Velcro collar. Patient tolerated the procedure well and left the operating room to the recovery room in satisfactory condition.
--- NOTE | 2021-01-01 18:15 | IPN ---
PROGRESS NOTE DATE: 01/01/2021 SUBJECTIVE: Mr. Richard is seen this morning on his bedside. He was dialyzed yesterday and he tolerated dialysis treatment very well. We were able to remove about 3 liters of fluid. His blood pressure was low at one point in dialysis, however, did improve. This morning, he is still feeling uncomfortable with his breathing. Nursing staff reports that they have some resistance when they try to suction him. Patient is scheduled to go to the OR today to change his tracheostomy by Dr. Ortega. PHYSICAL EXAMINATION: VITALS: Temperature 97.9 degrees Fahrenheit, heart rate 66 per minute, respiratory rate 20 per minute, blood pressure 160/78 mmHg and oxygen saturation 94% on trach collar with 5 liters of oxygen. HEENT: Head atraumatic. Neck veins difficult to be assessed. Tracheostomy is in place. LUNGS: Moderate bilateral air entry. HEART: Sounds are regular. ABDOMEN: Obese and nontender. Bowel sounds are normal. EXTREMITIES: Without any cyanosis or clubbing. Right arm AV fistula is patent. Bilateral lower extremity plegia is unchanged. NEUROLOGIC: He is awake and able to answer questions by nodding his head. LABORATORY DATA: Today's labs show WBC 10.2, hemoglobin 11.3, hematocrit 39.3, platelets 136,000. Sodium 137, potassium 4.8, CO2 26, BUN 42, creatinine 5.43. Glucose 91 and calcium 8.0. PROBLEMS: 1. End-stage renal disease: Patient was dialyzed yesterday and he tolerated dialysis well. He will be scheduled for next dialysis tomorrow. At this point, there is no emergent need for dialysis today. 2. Respiratory insufficiency: Most likely related to his tracheostomy issues. His volume status seems reasonably well compensated and there is no emergent indication for dialysis today. He is going to the OR and going to have his tracheotomy changed today by Dr. Ortega. 3. Hypotension: Patient has been placed on Midodrine again due to recurrent hypotension particularly during dialysis. We will continue with the same. 4. Anemia: At this point, his anemia is stable and optimally corrected. No urgent intervention is needed.
[2021-01-01] MEDS: SENOKOT S TAB PO SCH (20:05)
[2021-01-01] MEDS: PRAMIPEXOLE (MIRAPEX) 0.125 MG TAB PO SCH (20:05)
[2021-01-02] VITALS (12 sets, daily range): BP systolic 125–163; BP diastolic 60–78; O2SAT 91–98
[2021-01-02] MEDS: ALBUTEROL SULFATE 2.5 MG/0.5 ML INH NEB SOLN NEB PRN (04:00)
[2021-01-02] MEDS: guaiFENesin SYRUP 200 MG/10 ML UDC PO SCH ×3 (05:24→18:00)
[2021-01-02 06:19] LABS: HEMATOCRIT 37.2 % (42.0-52.0); HEMOGLOBIN 10.8 g/dl (13.5-17.5); MEAN CORPUSCULAR HEMOGLOBIN 30.1 pg (27.0-33.0); MEAN CORPUSCULAR VOLUME 103.6 fl (80.0-96.0); PLATELET COUNT, AUTOMATED 118 10^3/uL (150-450); RED BLOOD COUNT 3.59 10^6/uL (4.30-6.10); WHITE BLOOD COUNT 9.5 10^3/uL (4.0-10.0)
[2021-01-02 06:44] LABS: BILIRUBIN,TOTAL 0.4 MG/DL (0.2-1.0); CALCIUM LEVEL 8.3 MG/DL (8.5-10.1); CREATININE FOR GFR 6.59 MG/DL (0.70-1.30); GLOMERULAR FILTRATION RATE 9.6 (>60); POTASSIUM SERUM 4.9 MEQ/L (3.5-5.1); TOTAL PROTEIN 6.1 GM/DL (6.4-8.2)
[2021-01-02] MEDS: BUDESONIDE 0.5 MG/2 ML INHALATION SUSPENSION INH SCH ×2 (07:17→20:03)
[2021-01-02] MEDS: FORMOTEROL FUMARATE 20 MCG/2 ML INHALATION SOLUTION (PERFOROMIST) INH SCH ×2 (07:17→20:03)
[2021-01-02] MEDS: MIDODRINE 5 MG TAB PO SCH ×3 (08:10→16:36)
[2021-01-02] MEDS: PANTOPRAZOLE 40MG TAB (PROTONIX) PO SCH (08:10)
[2021-01-02] MEDS: AMIODARONE 200 MG TAB (PACERONE) PO SCH (08:11)
[2021-01-02] MEDS: CALCITRIOL 0.25 MCG CAP (S0169) PO SCH (08:11)
[2021-01-02] MEDS: SERTRALINE 100 MG TAB PO SCH (08:11)
[2021-01-02] MEDS: HEPARIN SOD (PORCINE) 5000UNITS/ML 1ML VIAL/SYRINGE SQ SCH ×2 (08:11→21:55)
[2021-01-02] MEDS: levETIRAcetam 250MG TABLET (KEPPRA) PO SCH (08:11)
[2021-01-02] MEDS: VITAMIN D 1,000 INTERNATIONAL UNITS TABLET PO SCH (08:11)
[2021-01-02] MEDS: DIMETHICONE 2% OINTMENT(VANICREAM) 70GM TUBE TOP SCH ×2 (08:12→21:53)
[2021-01-02] MEDS: (RENVELA) SEVELAMER **CARBONate** 800 MG TAB PO SCH ×3 (08:12→18:00)
[2021-01-02] MEDS: DARBEPOETIN 200MCG/0.4ML *DIALYSIS* SYRINGE (J0882 PER 1MCG) IV SCH (10:42)
[2021-01-02] MEDS: ALBUTEROL SULFATE 2.5 MG/0.5 ML INH NEB SOLN NEB SCH ×4 (10:59→20:00)
--- NOTE | 2021-01-02 13:41 | IPNPDOC ---
Date Seen The patient was seen on 01/02/21. Progress Note SUBJECTIVE: No events overnight. POD 1 for new trach placement by Dr. Ortega. Tolerated HD well today. Switching back to ALC status, transferring to med/surg floor. Patient denied chest pain, n/v/d, fevers, chills. OBJECTIVE: PHYSICAL EXAMINATION: VITAL SIGNS: please see below General: NAD, comfortable HEENT: PERRLA, EOMI, sclerae clear Neck: supple, normal ROM, no JVD. Trach with collar Respiratory: lungs CTAB, no wheeze, no rales, no crackles CVS: RRR, normal S1, S2, no murmurs Abdo: soft, no masses, no hepatosplenomegaly, BS+, no rebound tenderness Extremities: trace edema MSK: no joint deformities, normal ROM Neuro: no focal neuro deficits, moving all 4 extremities, CN2-12 intact. Psych: calm, cooperative, AAO x 3 LABORATORY DATA, IMAGING STUDIES, MICROBIOLOGY: Please see below. CXR 12/31/20: Cardiomegaly and elements of pulmonary vascular congestion/interstitial edema ca nnot be excluded along with possible subtle atelectasis. ASSESSMENT: Mr. Richard is a 50-year-old male with prolonged hospital course, acute on chornic hypoxic and hypercapnic respiratory failure 2/2 to restrictive lung disease from obesity, mucous plugging, difficulty in being placed due to need HD chair, respiratory needs. PLAN: Acute on chronic hypoxic and hypercapnic respiratory failure 2/2 to restrictive lung disease from obesity, mucous plugging -Changed tracheostomy tube on 01/01/21, patient's feels improved since -Dr. Ortega has been following closely -C/w prednisone, albuterol ATC And PRN, pulmicort -Placement is unknown at this time due to some issues with patient not being able to suction himself. Morbid obesity BMI 52.5 Contributing to his restrictive lung disease and complicating care Severe spinal stenosis Continue pain regimen Incontinence-associated dermatitis/moisture associated skin damage - wound consult provided by Dr. Goncalves on 12/25/20 - wound care instructions are ordered. Clean with [employer] baby shampoo, vashe for 10 min, appy interdry. - bilateral heel float boots, ABD pad under straps to protect skin on top of boot End-stage renal disease on hemodialysis/secondary hyperparathyroidism Neurology following and recommendations appreciated - midodrine has been discontinued by nephrology service as patient's BP have been elevated Continue with dialysis Tue,Thus, Sat - PTH > 1000. -C/w calcitriol and sevelamer. GERD Continue PPI Depression/anxiety -Stable, assessed by psych this admission Continue sertraline and clonazepam Paroxysmal atrial fibrillation Continue amiodarone Seizure disorder Continue Keppra Hypotension Continue medication on dialysis days - has had midodrine with dialysis but has recently been hypertensive - will communicate to nephrology to perhaps use as prn Anemia Stable Receives Aranesp at dialysis Debility Chronically bedridden Pending placement at [facility] Anxiety - C/w clonazepam to 0.5 mg TID prn DVT prophylaxis Heparin subcutaneous DISPOSITION: Changed back to ALC status today.Pending placement to facility with HD chair as well as appropriate trach care. VS, I&O, 24H, Fishbone Vital Signs/I&O Vital Signs Date Time Temp Pulse Resp B/P (MAP) Pulse Ox O2 Delivery O2 Flow Rate FiO2 01/02/21 08:00 5.0 28 01/02/21 07:57 97.2 64 20 125/60 (81) 97 Trach Collar I&O- Last 24 Hours up to 6 AM 01/02/21 05:59 Intake Total 250 ml Output Total 0 ml Balance 250 ml Laboratory Data 24H LABS Laboratory Tests 2 01/02/21 05:14: Nucleated Red Blood Cells % (auto) 0.3H, Anion Gap 11, Glomerular Filtration Rate 9.6L, Calcium Level 8.3L, Total Bilirubin 0.4, Aspartate Amino Transf (AST/SGOT) 9, Alanine Aminotransferase (ALT/SGPT) 19, Alkaline Phosphatase 112, Total Protein 6.1L, Albumin 3.0L, Albumin/Globulin Ratio 1.0 CBC/BMP Laboratory Tests 01/02/21 05:14 Current Medications Current Medications Medications (Trade) Dose Ordered Sig/Alicia Route PRN Reason Start Time Stop Time Status Last Admin Dose Admin Acetaminophen (Tylenol Tab) 650 mg Q4HP PRN PO PAIN / FEVER 10/10/20 21:00 12/29/20 03:14 Acetaminophen (Tylenol Tab) 650 mg Q6HP PRN PO PAIN / FEVER 06/13/20 04:45 10/10/20 20:58 DC 10/10/20 17:12 Acetylcysteine (Mucomyst 10 % (100mg/ml)) 400 mg RBID INH 10/16/20 08:00 10/28/20 09:59 DC 10/28/20 07:08 Acetylcysteine (Mucomyst 20% (200mg/ml)) 400 mg RBID INH 10/28/20 20:00 12/15/20 08:41 DC 12/14/20 19:23 Albuterol Sulfate (Proventil Neb) 2.5 mg Q2HP PRN NEB SOB/WHEEZING 10/16/20 11:30 12/21/20 08:28 DC 12/21/20 03:34 Albuterol Sulfate (Proventil Neb) 2.5 mg RQ4H PRN NEB SOB/WHEEZING 12/21/20 08:25 01/02/21 04:00 Albuterol Sulfate (Proventil Neb) 2.5 mg RQID NEB 10/16/20 12:00 01/02/21 11:33 Albuterol/ Ipratropium (Duoneb (Ipr 0.5mg/Alb 2.5mg)) 3 ml Q2H PRN NEB SHORTNESS OF BREATH 06/11/20 19:45 10/16/20 11:16 DC 10/15/20 16:52 Albuterol/ Ipratropium (Duoneb (Ipr 0.5mg/Alb 2.5mg)) 3 ml Q6H PRN NEB SOB/WHEEZING 06/11/20 19:45 06/11/20 19:45 DC Albuterol/ Ipratropium (Duoneb (Ipr 0.5mg/Alb 2.5mg)) 3 ml RQ4H NEB 07/25/20 16:00 10/16/20 11:16 DC 10/16/20 08:46 Albuterol/ Ipratropium (Duoneb (Ipr 0.5mg/Alb 2.5mg)) 3 ml RQ6H NEB 12/13/20 14:00 12/21/20 08:28 DC 12/21/20 01:03 Albuterol/ Ipratropium (Duoneb (Ipr 0.5mg/Alb 2.5mg)) 3 ml RQ6H NEB 06/11/20 20:00 07/25/20 15:32 DC 07/25/20 13:55 Alprazolam (Xanax) 0.25 mg Q6H PRN PO ANXIETY 06/11/20 19:45 10/13/20 13:17 DC 10/12/20 21:31 Amiodarone HCl (Pacerone, Cordarone) 200 mg DAILY PO 06/12/20 09:00 01/02/21 08:11 Amlodipine Besylate (Norvasc) 5 mg DAILY PO 10/06/20 09:00 10/08/20 18:19 DC 10/08/20 08:19 Amlodipine Besylate (Norvasc) 10 mg DAILY PO 08/29/20 09:00 10/05/20 18:17 DC 10/05/20 06:06 Azithromycin 500 mg/IV Miscellaneous Supplies 1 each/ Dextrose 255 ml @ 255 mls/hr Q24H IV 12/13/20 22:00 12/13/20 22:12 DC Benzonatate (Tessalon Perles) 100 mg Q8HP PRN PO COUGH 06/13/20 01:15 12/02/20 10:56 DC 06/13/20 12:18 Bisacodyl (Dulcolax Suppository) 10 mg DAILYPRN PRN [place] CONSTIPATION 06/11/20 19:45 06/15/20 16:46 DC Bisacodyl (Dulcolax Tab) 5 mg DAILY PO 06/16/20 09:00 08/04/20 17:40 DC 08/04/20 10:46 Budesonide (Pulmicort) 0.5 mg RBID INH 12/21/20 08:00 01/02/21 07:17 Calcitriol (Rocaltrol) 0.25 mcg Q48H PO 12/25/20 09:00 01/02/21 08:11 Carbamide Peroxide (Debrox) 3 drop BID 06/12/20 21:00 06/16/20 09:01 DC 06/13/20 12:17 Ceftriaxone Sodium 2 gm/ Dextrose 50 ml @ 100 mls/hr Q24H IV 12/13/20 21:00 12/14/20 12:03 DC 12/13/20 20:36 Clonazepam (KlonoPIN) 0.25 mg Q6HP PRN PO anxiety 10/13/20 13:15 10/20/20 13:14 DC 10/19/20 22:24 Clonazepam (KlonoPIN) 0.25 mg Q6HP PRN PO ANXIETY 10/20/20 21:00 12/25/20 12:17 DC 12/25/20 09:08 Clonazepam (KlonoPIN) 0.5 mg Q8HP PRN PO ANXIETY 12/25/20 13:00 12/25/20 14:24 DC Clonazepam (KlonoPIN) 0.5 mg Q8HP PRN PO ANXIETY 12/25/20 18:45 12/31/20 21:28 Cod Liver Oil/ Zinc Oxide (Desitin) 1 dose BID TOP 12/24/20 21:00 12/25/20 13:48 DC 12/25/20 08:58 COVID-19 Vacc mRNA LNP-S (MOD) (PF) (Moderna Covid19 Vacc(Unapprov)) 100 mcg ASDIRECTED PRN IM COVID Vaccination 12/19/20 05:00 12/19/20 14:00 DC 12/19/20 14:00 Darbepoetin Jairo (Aranesp (Dialysis Use)) 100 mcg HD IV 08/06/20 11:45 09/03/20 07:41 DC Darbepoetin Jairo (Aranesp (Dialysis Use)) 100 mcg HD IV 09/03/20 07:30 09/16/20 08:11 DC 09/10/20 09:01 Darbepoetin Jairo (Aranesp (Dialysis Use)) 200 mcg HD IV 11/19/20 12:30 01/02/21 10:42 Darbepoetin Jairo (Aranesp (Dialysis Use)) 200 mcg HD IV 10/31/20 10:30 11/19/20 12:25 DC 11/13/20 11:56 Darbepoetin Jairo (Aranesp (Dialysis Use)) 200 mcg HD IV 10/08/20 18:30 10/31/20 10:17 DC 10/24/20 10:47 Dimethicone (Vanicream Ointment) 1 dose BID TOP 11/27/20 09:00 01/02/21 08:12 Diphenhydramine HCl (Benadryl) 50 mg ONCE PRN IV ALLERGIC REACTION 12/19/20 13:40 12/19/20 23:59 DC Emollient Cream (Vanicream) to bilateral lo... DAILY TOP 08/05/20 09:00 09/09/20 11:17 DC 09/08/20 09:44 Emollient Cream (Vanicream) to bilateral lo... DAILY PRN TOP DRY SKIN 09/09/20 11:15 11/27/20 13:12 DC 09/28/20 22:12 Epinephrine HCl (Adrenalin) 0.3 mg ONCE PRN IM ALLERGIC REACTION 12/19/20 13:45 12/19/20 23:59 DC Erythromycin (Ilotycin) 1 CM RIBBON TID OU 11/20/20 16:00 11/27/20 16:00 DC 11/27/20 16:49 Fentanyl Citrate (Sublimaze) 25 mcg Q5MP PRN IV PAIN LEVEL 5-10 11/08/20 13:00 11/08/20 14:00 DC Formoterol Fumarate (Perforomist) 20 mcg RBID INH 12/21/20 08:00 01/02/21 07:17 Guaifenesin (Robitussin) 5 ml Q6H PO 07/28/20 12:00 01/02/21 05:24 Heparin Sodium (Heparin (Flush)) 200 units ASDIRECTED PRN IV SEE LABEL COMMENTS 06/11/20 19:45 06/11/20 19:49 DC Heparin Sodium (Heparin (Flush)) 200 units ASDIRECTED PRN IV SEE LABEL COMMENTS 06/11/20 19:45 06/20/20 18:55 DC 06/20/20 06:42 Heparin Sodium (Heparin (Flush)) 200 units PICC IV 06/12/20 06:00 06/11/20 19:48 DC Heparin Sodium (Heparin (Flush)) 200 units PICC IV 06/12/20 06:00 06/20/20 18:55 DC 06/20/20 06:41 Heparin Sodium (Heparin) 9,000 units ASDIRECTED XX 10/03/20 10:55 10/04/20 09:29 DC Heparin Sodium (Heparin) 9,000 units ASDIRECTED XX 09/26/20 13:04 09/27/20 07:14 DC Heparin Sodium (Heparin) Please refer to ... ASDIRECTED XX 11/05/20 08:00 11/06/20 07:59 DC Heparin Sodium (Heparin) Please refer to ... ASDIRECTED XX 11/07/20 08:00 11/08/20 07:59 DC Heparin Sodium (Heparin) Please refer to ... ASDIRECTED XX 11/09/20 08:00 11/10/20 07:59 DC Heparin Sodium (Heparin) Please refer to ... ASDIRECTED XX 11/11/20 08:30 11/12/20 08:29 DC Heparin Sodium (Heparin) Please refer to ... ASDIRECTED XX 11/13/20 12:45 11/14/20 12:44 DC Heparin Sodium (Heparin) Please refer to ... ASDIRECTED XX 11/15/20 10:00 11/16/20 09:59 DC Heparin Sodium (Heparin) Please refer to ... ASDIRECTED XX 10/28/20 12:45 10/29/20 12:44 DC Heparin Sodium (Heparin) Please refer to ... ASDIRECTED XX 10/29/20 12:00 10/30/20 11:59 DC Heparin Sodium (Heparin) Please refer to ... ASDIRECTED XX 10/30/20 22:45 10/31/20 22:44 DC Heparin Sodium (Heparin) Please refer to ... ASDIRECTED XX 11/02/20 08:00 11/03/20 07:59 DC Heparin Sodium (Heparin) Please refer to ... ASDIRECTED XX 11/25/20 08:00 11/26/20 07:59 DC Heparin Sodium (Heparin) Please refer to ... ASDIRECTED XX 12/05/20 10:15 12/06/20 10:14 DC Heparin Sodium (Heparin) Please refer to ... ASDIRECTED XX 12/07/20 09:00 12/08/20 08:59 DC Heparin Sodium (Heparin) Please refer to ... ASDIRECTED XX 12/14/20 07:00 12/15/20 06:59 DC Heparin Sodium (Heparin) Please refer to ... ASDIRECTED XX 12/17/20 07:00 12/18/20 06:59 DC Heparin Sodium (Heparin) Please refer to ... ASDIRECTED XX 12/19/20 07:00 12/20/20 06:59 DC Heparin Sodium (Heparin) Please refer to ... ASDIRECTED XX 12/21/20 09:00 12/22/20 08:59 DC Heparin Sodium (Heparin) Please refer to ... ASDIRECTED XX 11/27/20 10:30 11/28/20 10:29 DC Heparin Sodium (Heparin) Please refer to ... ASDIRECTED XX 11/30/20 07:00 12/01/20 06:59 DC Heparin Sodium (Heparin) Please refer to ... ASDIRECTED XX 12/03/20 07:45 12/04/20 07:44 DC Heparin Sodium (Heparin) Please refer to ... ASDIRECTED XX 12/23/20 14:10 12/24/20 14:09 Cancel Heparin Sodium (Heparin) Please refer to ... ASDIRECTED XX 12/24/20 08:00 12/25/20 07:59 DC Heparin Sodium (Heparin) Please refer to ... ASDIRECTED XX 12/26/20 08:20 12/27/20 08:19 DC Heparin Sodium (Heparin) Please refer to ... ASDIRECTED XX 09/20/20 17:45 09/21/20 17:44 DC Heparin Sodium (Heparin) Please refer to ... ASDIRECTED XX 09/24/20 07:15 09/25/20 07:14 DC Heparin Sodium (Heparin) Please refer to ... ASDIRECTED XX 10/03/20 09:30 10/03/20 10:55 DC Heparin Sodium (Heparin) Please refer to ... ASDIRECTED XX 10/12/20 08:00 10/13/20 07:59 DC Heparin Sodium (Heparin) Please refer to ... ASDIRECTED XX 10/15/20 08:00 10/16/20 07:59 DC Heparin Sodium (Heparin) Please refer to ... ASDIRECTED XX 10/17/20 10:00 10/18/20 09:59 DC Heparin Sodium (Heparin) Please refer to ... ASDIRECTED XX 10/19/20 08:00 10/20/20 07:59 DC Heparin Sodium (Heparin) Please refer to ... ASDIRECTED XX 09/26/20 07:15 09/26/20 13:04 DC Heparin Sodium (Heparin) Please refer to ... ASDIRECTED XX 09/28/20 07:45 09/29/20 07:44 DC Heparin Sodium (Heparin) dose as per volume indica... ASDIRECTED PRN IV SEE LABEL COMMENTS 11/05/20 08:00 11/05/20 11:59 DC Heparin Sodium (Heparin) dose as per volume indica... ASDIRECTED PRN IV SEE LABEL COMMENTS 11/07/20 08:00 11/07/20 20:59 DC Heparin Sodium (Heparin) dose as per volume indica... ASDIRECTED PRN IV SEE LABEL COMMENTS 11/09/20 08:00 11/09/20 21:59 DC Heparin Sodium (Heparin) dose as per volume indica... ASDIRECTED PRN IV SEE LABEL COMMENTS 11/02/20 08:00 11/02/20 20:14 DC Heparin Sodium (Heparin) dose as per volume indica... ASDIRECTED PRN IV SEE LABEL COMMENTS 11/25/20 08:00 11/25/20 20:44 DC Heparin Sodium (Heparin) dose as per volume indica... ASDIRECTED PRN IV SEE LABEL COMMENTS 09/04/20 11:30 09/05/20 08:25 DC Heparin Sodium (Heparin) dose as per volume indica... ASDIRECTED PRN IV SEE LABEL COMMENTS 09/04/20 11:30 09/05/20 08:25 DC Heparin Sodium (Porcine) (Heparin) 5,000 units BID SQ 10/23/20 09:00 01/02/21 08:11 Heparin Sodium (Porcine) (Heparin) 5,000 units Q8H SQ 06/11/20 22:00 06/13/20 15:19 DC 06/13/20 12:17 Heparin Sodium (Porcine) (Heparin) 5,000 units Q8H SQ 07/25/20 22:00 10/22/20 22:18 DC 10/22/20 21:21 Home Med (Med Rec Complete!) ASDIRECTED XX 06/12/20 10:15 06/12/20 10:08 DC Hydralazine HCl (Apresoline) 10 mg Q6H PRN PO SBP>170 06/11/20 19:45 08/06/20 11:39 DC 06/19/20 22:01 Iron (Venofer) 100 mg HD IV 11/13/20 12:30 11/25/20 10:02 DC 11/22/20 10:43 Iron (Venofer) 100 mg HD IV 07/11/20 11:30 08/27/20 13:16 DC Lactated Ringer's 1,000 ml @ 100 mls/hr Q10H IV 11/08/20 13:00 11/08/20 14:00 DC Lactated Ringer's 1,000 ml @ 100 mls/hr Q10H IV 01/01/21 14:50 01/01/21 15:50 DC Levetiracetam (Keppra) 500 mg DAILY PO 06/12/20 09:00 01/02/21 08:11 Lidocaine (Lidoderm Patch) 1 patch DAILY TD 06/12/20 09:00 09/09/20 11:57 DC 07/13/20 06:43 Lidocaine (Lidoderm Patch) 1 patch DAILY PRN TD BACK PAIN 09/09/20 12:00 09/09/20 14:17 DC Lidocaine HCl (Lidocaine 1% Sdv) 0.5 ml ASDIRECTED PRN SC SEE LABEL COMMENTS 11/05/20 08:00 11/05/20 11:59 DC Lidocaine HCl (Lidocaine 1% Sdv) 0.5 ml ASDIRECTED PRN SC SEE LABEL COMMENTS 11/07/20 08:00 11/07/20 20:59 DC Lidocaine HCl (Lidocaine 1% Sdv) 0.5 ml ASDIRECTED PRN SC SEE LABEL COMMENTS 11/09/20 08:00 11/09/20 21:59 DC Lidocaine HCl (Lidocaine 1% Sdv) 0.5 ml ASDIRECTED PRN SC SEE LABEL COMMENTS 11/11/20 08:30 11/12/20 08:29 DC Lidocaine HCl (Lidocaine 1% Sdv) 0.5 ml ASDIRECTED PRN SC SEE LABEL COMMENTS 11/13/20 12:45 11/14/20 12:44 DC Lidocaine HCl (Lidocaine 1% Sdv) 0.5 ml ASDIRECTED PRN SC SEE LABEL COMMENTS 11/15/20 10:00 11/16/20 09:59 DC Lidocaine HCl (Lidocaine 1% Sdv) 0.5 ml ASDIRECTED PRN SC SEE LABEL COMMENTS 10/28/20 12:45 10/29/20 12:44 DC Lidocaine HCl (Lidocaine 1% Sdv) 0.5 ml ASDIRECTED PRN SC SEE LABEL COMMENTS 10/29/20 12:00 10/30/20 11:59 DC Lidocaine HCl (Lidocaine 1% Sdv) 0.5 ml ASDIRECTED PRN SC SEE LABEL COMMENTS 10/30/20 22:45 10/31/20 22:44 DC Lidocaine HCl (Lidocaine 1% Sdv) 0.5 ml ASDIRECTED PRN SC SEE LABEL COMMENTS 11/02/20 08:00 11/02/20 20:14 DC Lidocaine HCl (Lidocaine 1% Sdv) 0.5 ml ASDIRECTED PRN SC SEE LABEL COMMENTS 11/25/20 08:00 11/25/20 20:44 DC Lidocaine HCl (Lidocaine 1% Sdv) 0.5 ml ASDIRECTED PRN SC SEE LABEL COMMENTS 12/05/20 10:15 12/06/20 10:14 DC Lidocaine HCl (Lidocaine 1% Sdv) 0.5 ml ASDIRECTED PRN SC SEE LABEL COMMENTS 12/07/20 09:00 12/08/20 08:59 DC Lidocaine HCl (Lidocaine 1% Sdv) 0.5 ml ASDIRECTED PRN SC SEE LABEL COMMENTS 12/14/20 07:00 12/15/20 06:59 DC Lidocaine HCl (Lidocaine 1% Sdv) 0.5 ml ASDIRECTED PRN SC SEE LABEL COMMENTS 12/17/20 07:00 12/17/20 11:14 DC Lidocaine HCl (Lidocaine 1% Sdv) 0.5 ml ASDIRECTED PRN SC SEE LABEL COMMENTS 12/19/20 07:00 12/20/20 06:59 DC Lidocaine HCl (Lidocaine 1% Sdv) 0.5 ml ASDIRECTED PRN SC SEE LABEL COMMENTS 12/21/20 09:00 12/22/20 08:59 DC Lidocaine HCl (Lidocaine 1% Sdv) 0.5 ml ASDIRECTED PRN SC SEE LABEL COMMENTS 11/27/20 10:30 11/28/20 10:29 DC Lidocaine HCl (Lidocaine 1% Sdv) 0.5 ml ASDIRECTED PRN SC SEE LABEL COMMENTS 11/30/20 07:00 11/30/20 09:14 DC Lidocaine HCl (Lidocaine 1% Sdv) 0.5 ml ASDIRECTED PRN SC SEE LABEL COMMENTS 12/03/20 07:45 12/04/20 07:44 DC Lidocaine HCl (Lidocaine 1% Sdv) 0.5 ml ASDIRECTED PRN SC SEE LABEL COMMENTS 12/23/20 14:10 12/24/20 14:09 Cancel Lidocaine HCl (Lidocaine 1% Sdv) 0.5 ml ASDIRECTED PRN SC SEE LABEL COMMENTS 12/24/20 08:00 12/25/20 07:59 DC Lidocaine HCl (Lidocaine 1% Sdv) 0.5 ml ASDIRECTED PRN SC SEE LABEL COMMENTS 12/26/20 08:20 12/27/20 08:19 DC Lidocaine HCl (Lidocaine 1% Sdv) 0.5 ml ASDIRECTED PRN SC SEE LABEL COMMENTS 09/04/20 11:30 09/05/20 08:26 DC Lidocaine HCl (Lidocaine 1% Sdv) 0.5 ml ASDIRECTED PRN SC SEE LABEL COMMENTS 09/04/20 11:30 09/05/20 08:26 DC Lidocaine HCl (Lidocaine 1% Sdv) 0.5 ml ASDIRECTED PRN SC SEE LABEL COMMENTS 09/07/20 07:30 09/08/20 07:29 DC Lidocaine HCl (Lidocaine 1% Sdv) 0.5 ml ASDIRECTED PRN SC SEE LABEL COMMENTS 09/07/20 07:30 09/08/20 07:29 DC Lidocaine HCl (Lidocaine 1% Sdv) 0.5 ml ASDIRECTED PRN SC SEE LABEL COMMENTS 09/21/20 08:00 09/21/20 17:44 DC Lidocaine HCl (Lidocaine 1% Sdv) 0.5 ml ASDIRECTED PRN SC SEE LABEL COMMENTS 09/24/20 07:15 09/25/20 07:14 DC Lidocaine HCl (Lidocaine 1% Sdv) 0.5 ml ASDIRECTED PRN SC SEE LABEL COMMENTS 10/03/20 09:30 10/04/20 09:29 DC Lidocaine HCl (Lidocaine 1% Sdv) 0.5 ml ASDIRECTED PRN SC SEE LABEL COMMENTS 10/12/20 08:00 10/13/20 07:59 DC Lidocaine HCl (Lidocaine 1% Sdv) 0.5 ml ASDIRECTED PRN SC SEE LABEL COMMENTS 10/15/20 08:00 10/15/20 20:59 DC Lidocaine HCl (Lidocaine 1% Sdv) 0.5 ml ASDIRECTED PRN SC SEE LABEL COMMENTS 10/17/20 10:00 10/18/20 09:59 DC Lidocaine HCl (Lidocaine 1% Sdv) 0.5 ml ASDIRECTED PRN SC SEE LABEL COMMENTS 10/19/20 08:00 10/19/20 12:59 DC Lidocaine HCl (Lidocaine 1% Sdv) 0.5 ml ASDIRECTED PRN SC SEE LABEL COMMENTS 09/26/20 07:15 09/27/20 07:14 DC Lidocaine HCl (Lidocaine 1% Sdv) 0.5 ml ASDIRECTED PRN SC SEE LABEL COMMENTS 10/01/20 10:30 10/02/20 10:29 DC Methylprednisolone (SOLUmedrol) 60 mg Q12H IV 12/22/20 18:00 12/23/20 11:30 DC 12/23/20 06:23 Methylprednisolone (SOLUmedrol) 60 mg Q6H IV 12/20/20 18:00 12/21/20 10:16 DC 12/21/20 05:59 Methylprednisolone (SOLUmedrol) 60 mg Q8H IV 12/21/20 14:00 12/22/20 07:39 DC 12/22/20 06:21 Midodrine (Proamatine) 5 mg MoWeFr@0900 PO 11/20/20 09:00 12/02/20 09:00 DC 11/30/20 08:29 Midodrine (Proamatine) 5 mg TuThSa@0900 PO 11/05/20 09:00 11/19/20 10:13 DC 11/18/20 08:24 Midodrine (Proamatine) 5 mg TuThSa@0900 PO 12/03/20 09:00 12/25/20 10:04 DC 12/24/20 07:58 Midodrine (Proamatine) 10 mg 08,12,16 PO 12/31/20 12:00 01/02/21 08:10 Midodrine (Proamatine) 10 mg ASDIRECTED PO 06/11/20 20:30 08/31/20 21:12 DC 08/10/20 06:14 Midodrine (Proamatine) 10 mg HD PO 06/11/20 21:00 06/11/20 20:22 DC Miscellaneous (Unresolved Clarification Entry) SEE LABEL COMMENTS DAILY XX 11/24/20 09:00 11/24/20 12:58 DC Miscellaneous (Unresolved Clarification Entry) SEE LABEL COMMENTS DAILY XX 10/29/20 09:00 10/29/20 09:54 DC Miscellaneous (Unresolved Clarification Entry) SEE LABEL COMMENTS DAILY XX 11/01/20 09:00 11/05/20 08:43 DC 11/04/20 08:23 Miscellaneous (Unresolved Clarification Entry) SEE LABEL COMMENTS DAILY XX 06/24/20 09:00 06/25/20 12:54 DC Miscellaneous (Unresolved Clarification Entry) SEE LABEL COMMENTS DAILY XX 09/29/20 09:00 09/29/20 12:49 DC Non-Formulary Medication ( See Comment Field Below ) CHECK TO SEE IF THE PATIENT... DAILY@0800 XX 06/27/20 08:00 09/01/20 18:17 DC 08/10/20 06:36 Non-Formulary Medication ( See Comment Field Below ) CHECK TO SEE IF THE PATIENT... DAILY@1600 XX 12/17/20 16:00 12/22/20 23:59 DC 12/21/20 15:21 Non-Formulary Medication ( See Comment Field Below ) REMOVE LIDODERM PATCH DAILY@21 XX 06/11/20 21:00 09/09/20 11:57 DC 09/04/20 21:00 Non-Formulary Medication ( See Comment Field Below ) REMOVE LIDODERM PATCH DAILY@21 PRN XX BACK PAIN 09/09/20 12:00 09/09/20 14:17 DC Nystatin (Mycostatin Powder, Nystop) Apply to groin folds BIDP PRN TOP REDNESS/IRRITATION 08/27/20 01:00 09/25/20 01:24 DC Nystatin (Mycostatin Powder, Nystop) apply to groin area daily DAILY TOP 11/25/20 09:00 12/25/20 13:48 DC 12/25/20 08:58 Ondansetron HCl (ZOFRAN INJection) 4 mg Q4HP PRN IV NAUSEA OR VOMITING 11/08/20 13:00 11/08/20 14:00 DC Ondansetron HCl (ZOFRAN INJection) 4 mg Q4HP PRN IV NAUSEA OR VOMITING 01/01/21 14:50 01/01/21 15:50 DC Ondansetron HCl (Zofran) 4 mg Q6HP PRN PO NAUSEA OR VOMITING 07/08/20 12:45 12/09/20 11:37 Oxycodone HCl (Roxicodone, Oxyir) 10 mg Q4H PRN PO PAIN 06/11/20 19:45 10/19/20 15:15 DC 10/18/20 22:28 Oxycodone HCl (Roxicodone, Oxyir) 10 mg Q4HP PRN PO SEVERE PAIN (PS 8-10) 10/19/20 22:15 10/20/20 10:15 DC 10/19/20 22:23 Oxycodone HCl (Roxicodone, Oxyir) 10 mg Q4HP PRN PO SEVERE PAIN (PS 8-10) 10/20/20 21:00 10/22/20 22:18 DC 10/22/20 21:20 Oxycodone HCl (Roxicodone, Oxyir) 10 mg Q8HP PRN PO SEVERE PAIN (PS 8-10) 10/22/20 22:30 12/31/20 21:26 Pantoprazole Sodium (Protonix) 40 mg DAILY PO 06/12/20 09:00 01/02/21 08:10 Phenol (Chloraseptic [place]) 1 spray Q2HP PRN MT SORE THROAT 10/09/20 08:45 12/29/20 00:44 Piperacillin Sod/ Tazobactam Sod 2.25 gm/Dextrose 50 ml @ 100 mls/hr Q8H IV 12/14/20 17:00 12/22/20 23:59 DC 12/22/20 17:18 Piperacillin Sod/ Tazobactam Sod 3.375 gm/Dextrose 50 ml @ 50 mls/hr Q6H IV 12/14/20 12:15 UNV Polyethylene Glycol (Miralax) 1 pkt DAILY PRN PO CONSTIPATION 06/11/20 19:45 06/15/20 16:45 DC Polyethylene Glycol (Miralax) 1 pkt DAILYPRN PRN PO CONSTIPATION 08/04/20 17:45 Polymyxin/ Trimethoprim Sulfate (Polytrim Ophth Drops) 1 drop 6XD OU 08/03/20 15:00 08/10/20 12:00 DC 08/10/20 06:13 Pramipexole Dihydrochloride (Mirapex) 0.125 mg QHS PO 06/11/20 21:00 01/01/21 20:05 Prednisone (Deltasone) Taper DAILY PO 12/24/20 09:00 01/02/21 08:59 DC 01/01/21 08:57 Prednisone (Deltasone) 30 mg Taper DAILY PO 12/21/20 09:00 12/20/20 18:32 DC Prednisone (Deltasone) 40 mg DAILY PO 12/14/20 09:00 12/20/20 13:37 DC 12/20/20 09:25 Salmeterol Xinafoate/ Fluticasone (Advair Hfa ) 2 puff RBID INH 12/13/20 08:00 12/21/20 08:28 DC 12/20/20 20:12 Senna/Docusate Sodium (Senokot S) 2 tab QHS PO 08/04/20 21:00 01/01/21 20:05 Sertraline HCl (Zoloft) 100 mg DAILY PO 06/12/20 09:00 09/30/20 11:35 DC 09/30/20 09:50 Sertraline HCl (Zoloft) 150 mg DAILY PO 10/01/20 09:00 10/13/20 13:17 DC 10/13/20 10:21 Sertraline HCl (Zoloft) 200 mg DAILY PO 10/14/20 09:00 01/02/21 08:11 Sevelamer Carbonate (Renvela) 2,400 mg WM PO 06/12/20 08:00 11/15/20 16:12 DC 11/15/20 13:15 Sevelamer Carbonate (Renvela) 4,000 mg WM PO 11/15/20 18:00 01/02/21 08:12 Sodium Chloride (Nacl 0.9%) 200 ml ASDIRECTED PRN IV SEE LABEL COMMENTS 11/07/20 08:00 11/08/20 07:59 DC Sodium Chloride (Nacl 0.9%) 200 ml ASDIRECTED PRN IV SEE LABEL COMMENTS 11/09/20 08:00 11/10/20 07:59 DC Sodium Chloride (Nacl 0.9%) 200 ml ASDIRECTED PRN IV SEE LABEL COMMENTS 11/11/20 08:30 11/12/20 08:29 DC Sodium Chloride (Nacl 0.9%) 200 ml ASDIRECTED PRN IV SEE LABEL COMMENTS 11/13/20 12:45 11/14/20 12:44 DC Sodium Chloride (Nacl 0.9%) 200 ml ASDIRECTED PRN IV SEE LABEL COMMENTS 11/15/20 10:00 11/16/20 09:59 DC Sodium Chloride (Nacl 0.9%) 200 ml ASDIRECTED PRN IV SEE LABEL COMMENTS 10/28/20 12:45 10/29/20 12:44 DC Sodium Chloride (Nacl 0.9%) 200 ml ASDIRECTED PRN IV SEE LABEL COMMENTS 10/29/20 12:00 10/30/20 11:59 DC Sodium Chloride (Nacl 0.9%) 200 ml ASDIRECTED PRN IV SEE LABEL COMMENTS 10/30/20 22:45 10/31/20 22:44 DC Sodium Chloride (Nacl 0.9%) 200 ml ASDIRECTED PRN IV SEE LABEL COMMENTS 12/05/20 10:15 12/06/20 10:14 DC Sodium Chloride (Nacl 0.9%) 200 ml ASDIRECTED PRN IV SEE LABEL COMMENTS 12/07/20 09:00 12/08/20 08:59 DC Sodium Chloride (Nacl 0.9%) 200 ml ASDIRECTED PRN IV SEE LABEL COMMENTS 12/14/20 07:00 12/15/20 06:59 DC Sodium Chloride (Nacl 0.9%) 200 ml ASDIRECTED PRN IV SEE LABEL COMMENTS 12/21/20 09:00 12/22/20 08:59 DC Sodium Chloride (Nacl 0.9%) 200 ml ASDIRECTED PRN IV SEE LABEL COMMENTS 12/03/20 07:45 12/04/20 07:44 DC Sodium Chloride (Nacl 0.9%) 200 ml ASDIRECTED PRN IV SEE LABEL COMMENTS 12/23/20 14:10 12/24/20 14:09 Cancel Sodium Chloride (Nacl 0.9%) 200 ml ASDIRECTED PRN IV SEE LABEL COMMENTS 12/24/20 08:00 12/25/20 07:59 DC Sodium Chloride (Nacl 0.9%) 200 ml ASDIRECTED PRN IV SEE LABEL COMMENTS 12/26/20 08:20 12/27/20 08:19 DC Sodium Chloride (Nacl 0.9%) 200 ml ASDIRECTED PRN IV SEE LABEL COMMENTS 09/03/20 07:30 09/05/20 08:26 DC Sodium Chloride (Nacl 0.9%) 200 ml ASDIRECTED PRN IV SEE LABEL COMMENTS 09/04/20 11:30 09/10/20 10:39 DC Sodium Chloride (Nacl 0.9%) 200 ml ASDIRECTED PRN IV SEE LABEL COMMENTS 09/07/20 07:30 11/17/20 10:39 DC Sodium Chloride (Nacl 0.9%) 200 ml ASDIRECTED PRN IV SEE LABEL COMMENTS 09/12/20 08:00 09/24/20 08:57 DC Sodium Chloride (Nacl 0.9%) 200 ml ASDIRECTED PRN IV SEE LABEL COMMENTS 09/24/20 07:15 09/25/20 07:14 DC Sodium Chloride (Nacl 0.9%) 200 ml ASDIRECTED PRN IV SEE LABEL COMMENTS 10/03/20 09:30 10/04/20 09:29 DC Sodium Chloride (Nacl 0.9%) 200 ml ASDIRECTED PRN IV SEE LABEL COMMENTS 10/12/20 08:00 10/13/20 07:59 DC Sodium Chloride (Nacl 0.9%) 200 ml ASDIRECTED PRN IV SEE LABEL COMMENTS 10/15/20 08:00 10/16/20 07:59 DC Sodium Chloride (Nacl 0.9%) 200 ml ASDIRECTED PRN IV SEE LABEL COMMENTS 10/17/20 10:00 10/18/20 09:59 DC Sodium Chloride (Nacl 0.9%) 200 ml ASDIRECTED PRN IV SEE LABEL COMMENTS 09/26/20 07:15 09/27/20 07:14 DC Sodium Chloride (Nacl 0.9%) 200 ml ASDIRECTED PRN IV SEE LABEL COMMENTS 09/28/20 07:45 09/29/20 07:44 DC Sodium Chloride (Nacl 0.9%) 200 ml ASDIRECTED PRN IV SEE LABEL COMMENTS 10/01/20 10:30 10/02/20 10:29 DC Sodium Chloride (Saline Lock Flush) 10 ml ASDIRECTED PRN IV SEE LABEL COMMENTS 06/11/20 19:45 06/11/20 19:50 DC Sodium Chloride (Saline Lock Flush) 10 ml ASDIRECTED PRN IV SEE LABEL COMMENTS 06/11/20 19:45 06/20/20 18:55 DC 06/20/20 06:41 Sodium Chloride (Saline Lock Flush) 10 ml PICC IV 06/12/20 06:00 06/11/20 19:49 DC Sodium Chloride (Saline Lock Flush) 10 ml PICC IV 06/12/20 06:00 06/20/20 18:55 DC 06/20/20 06:41 Sucroferric Oxyhydroxide (Velphoro) 500 mg WM PO 11/11/20 18:00 11/15/20 16:12 DC 11/12/20 17:52 Sucroferric Oxyhydroxide (Velphoro) 500 mg WM PO 07/11/20 12:30 09/21/20 12:33 DC 09/15/20 18:12 Vancomycin HCl 1000 mg/IV Miscellaneous Supplies 1 each/ Dextrose 270 ml @ 270 mls/hr HD IV 12/17/20 09:00 12/20/20 10:00 DC 12/19/20 15:55 Vancomycin HCl 1000 mg/IV Miscellaneous Supplies 1 each/ Dextrose 270 ml @ 270 mls/hr Q12H IV 12/14/20 12:00 UNV Vancomycin HCl 1000 mg/IV Miscellaneous Supplies 1 each/ Sodium Chloride 270 ml @ 270 mls/hr HD IV 12/20/20 10:05 12/22/20 23:59 DC 12/21/20 15:19 Vitamin D (Vitamin D) 2,000 units DAILY PO 12/03/20 09:00 01/02/21 08:11 Zinc Oxide (Boudreauxs Butt Paste) 1 dose BID TOP 11/28/20 09:00 12/24/20 16:02 DC 12/24/20 08:00 Allergies Coded Allergies: moxifloxacin (Verified Allergy, Intermediate, RASH, 12/25/19) codeine (Verified Allergy, Unknown, 12/25/19) valsartan (Verified Allergy, Unknown, 12/25/19) Claudette Padron MD Jan 02, 2021 13:41
[2021-01-02] MEDS: oxyCODONE 5MG TAB PO PRN (21:55)
[2021-01-02] MEDS: clonazePAM 0.5 MG TAB PO PRN (21:55)
[2021-01-02] MEDS: SENOKOT S TAB PO SCH (21:56)
[2021-01-02] MEDS: PRAMIPEXOLE (MIRAPEX) 0.125 MG TAB PO SCH (21:56)
[2021-01-03] MEDS: guaiFENesin SYRUP 200 MG/10 ML UDC PO SCH ×5 (00:21→22:08)
[2021-01-03] MEDS: ALBUTEROL SULFATE 2.5 MG/0.5 ML INH NEB SOLN NEB PRN (01:28)
[2021-01-03 06:00] VITALS: BP 154/71
[2021-01-03 06:34] LABS: HEMATOCRIT 38.3 % (42.0-52.0); HEMOGLOBIN 10.9 g/dl (13.5-17.5); MEAN CORPUSCULAR HEMOGLOBIN 29.8 pg (27.0-33.0); MEAN CORPUSCULAR HGB CONC 28.5 g/dl (32.0-36.5); MEAN CORPUSCULAR VOLUME 104.6 fl (80.0-96.0); PLATELET COUNT, AUTOMATED 112 10^3/uL (150-450); RED BLOOD COUNT 3.66 10^6/uL (4.30-6.10); WHITE BLOOD COUNT 7.6 10^3/uL (4.0-10.0)
[2021-01-03 06:58] LABS: BILIRUBIN,TOTAL 0.5 MG/DL (0.2-1.0); CALCIUM LEVEL 8.6 MG/DL (8.5-10.1); CREATININE FOR GFR 4.94 MG/DL (0.70-1.30); GLOMERULAR FILTRATION RATE 13.4 (>60); POTASSIUM SERUM 4.1 MEQ/L (3.5-5.1); TOTAL PROTEIN 6.1 GM/DL (6.4-8.2)
[2021-01-03] MEDS: FORMOTEROL FUMARATE 20 MCG/2 ML INHALATION SOLUTION (PERFOROMIST) INH SCH ×2 (07:04→20:47)
[2021-01-03] MEDS: ALBUTEROL SULFATE 2.5 MG/0.5 ML INH NEB SOLN NEB SCH ×4 (07:04→20:47)
[2021-01-03] MEDS: BUDESONIDE 0.5 MG/2 ML INHALATION SUSPENSION INH SCH ×2 (07:04→20:47)
--- NOTE | 2021-01-03 08:12 | IPN ---
PROGRESS NOTE DATE: 01/02/2021 SUBJECTIVE: Mr. Richard is seen this morning on his bedside during dialysis. He was taken to the Operating Room yesterday and his tracheostomy has been changed. He reports improved breathing and requiring less suctioning. He remains on trach collar. He has no fever or chills. PHYSICAL EXAMINATION: VITALS: Temperature 97 degrees Fahrenheit, heart rate 70 per minute, respiratory rate 20 per minute, blood pressure 158/72 mmHg and oxygen saturation up to 95% on 5 liter of oxygen via trach collar. HEENT: Head is atraumatic. Tracheostomy is in place. Neck veins are difficult to be assessed. LUNGS: Moderate bilateral air entry. HEART: Sounds are regular. ABDOMEN: Obese, soft and nontender. EXTREMITIES: Without any cyanosis or clubbing. Right arm AV fistula is being used for dialysis. Bilateral lower extremity paresis is unchanged. LABORATORY DATA: Today's labs show WBC 9.5, hemoglobin 10.8, hematocrit 37.2, platelets 118,000. Sodium 138, potassium 4.9, CO2 24, BUN 55, creatinine 6.59. PROBLEMS: 1. End-stage renal disease: Patient is being dialyzed today and he is tolerating dialysis well. He was brought to dialysis room today as his respiratory status has improved. 2. Respiratory failure: Patient had his tracheostomy changed and cleaned. We are removing about 3 liters of fluid today. He is tolerating very well. His respiratory status has been mostly related to tracheostomy problems and volume status seems very well compensated for now. 3. Hypotension: Blood pressure is much better today as we resumed his Midodrine three days ago. He is tolerating dialysis much better. 4. Anemia: Anemia is stable at this point and does not need any urgent intervention.
[2021-01-03] MEDS: AMIODARONE 200 MG TAB (PACERONE) PO SCH (09:54)
[2021-01-03] MEDS: levETIRAcetam 250MG TABLET (KEPPRA) PO SCH (09:54)
[2021-01-03] MEDS: VITAMIN D 1,000 INTERNATIONAL UNITS TABLET PO SCH (09:54)
[2021-01-03] MEDS: PANTOPRAZOLE 40MG TAB (PROTONIX) PO SCH (09:54)
[2021-01-03] MEDS: SERTRALINE 100 MG TAB PO SCH (09:54)
[2021-01-03] MEDS: HEPARIN SOD (PORCINE) 5000UNITS/ML 1ML VIAL/SYRINGE SQ SCH ×2 (09:55→22:09)
[2021-01-03] MEDS: MIDODRINE 5 MG TAB PO SCH ×3 (09:55→17:23)
[2021-01-03] MEDS: DIMETHICONE 2% OINTMENT(VANICREAM) 70GM TUBE TOP SCH ×2 (09:55→22:09)
[2021-01-03] MEDS: (RENVELA) SEVELAMER **CARBONate** 800 MG TAB PO SCH ×3 (09:58→17:23)
[2021-01-03] MEDS: clonazePAM 0.5 MG TAB PO PRN (22:08)
[2021-01-03] MEDS: SENOKOT S TAB PO SCH (22:08)
[2021-01-03] MEDS: PRAMIPEXOLE (MIRAPEX) 0.125 MG TAB PO SCH (22:08)
[2021-01-03] MEDS: oxyCODONE 5MG TAB PO PRN (22:09)
[2021-01-04] MEDS: ALBUTEROL SULFATE 2.5 MG/0.5 ML INH NEB SOLN NEB PRN ×2 (02:43→13:25)
[2021-01-04] MEDS ORDERED: SODIUM CHLORIDE 0.9% 1000ML IV PRN (05:45)
[2021-01-04] MEDS ORDERED: LIDOCAINE 1% SDV 5ML VIAL SC PRN (05:45)
[2021-01-04 06:00] VITALS: BP 150/69
[2021-01-04] MEDS: HEPARIN SOD (PORCINE) 5000UNITS/ML 1ML VIAL/SYRINGE SQ SCH ×2 (06:31→22:21)
[2021-01-04] MEDS: guaiFENesin SYRUP 200 MG/10 ML UDC PO SCH ×3 (06:31→17:47)
[2021-01-04] MEDS: VITAMIN D 1,000 INTERNATIONAL UNITS TABLET PO SCH (06:32)
[2021-01-04] MEDS: levETIRAcetam 250MG TABLET (KEPPRA) PO SCH (06:32)
[2021-01-04] MEDS: SERTRALINE 100 MG TAB PO SCH (06:32)
[2021-01-04] MEDS: CALCITRIOL 0.25 MCG CAP (S0169) PO SCH (06:32)
[2021-01-04] MEDS: PANTOPRAZOLE 40MG TAB (PROTONIX) PO SCH (06:32)
[2021-01-04] MEDS: AMIODARONE 200 MG TAB (PACERONE) PO SCH (06:34)
[2021-01-04 06:43] LABS: HEMATOCRIT 37.6 % (42.0-52.0); HEMOGLOBIN 10.7 g/dl (13.5-17.5); MEAN CORPUSCULAR HEMOGLOBIN 29.6 pg (27.0-33.0); MEAN CORPUSCULAR HGB CONC 28.5 g/dl (32.0-36.5); MEAN CORPUSCULAR VOLUME 103.9 fl (80.0-96.0); PLATELET COUNT, AUTOMATED 103 10^3/uL (150-450); RED BLOOD COUNT 3.62 10^6/uL (4.30-6.10); WHITE BLOOD COUNT 7.6 10^3/uL (4.0-10.0)
[2021-01-04 07:15] LABS: ALBUMIN 2.9 GM/DL (3.2-5.2); BILIRUBIN,TOTAL 0.5 MG/DL (0.2-1.0); CALCIUM LEVEL 8.6 MG/DL (8.5-10.1); CREATININE FOR GFR 6.05 MG/DL (0.70-1.30); GLOMERULAR FILTRATION RATE 10.6 (>60); POTASSIUM SERUM 4.8 MEQ/L (3.5-5.1); TOTAL PROTEIN 5.8 GM/DL (6.4-8.2)
[2021-01-04] MEDS: (RENVELA) SEVELAMER **CARBONate** 800 MG TAB PO SCH ×3 (07:43→17:48)
[2021-01-04] MEDS: BUDESONIDE 0.5 MG/2 ML INHALATION SUSPENSION INH SCH ×2 (07:45→20:00)
[2021-01-04] MEDS: ALBUTEROL SULFATE 2.5 MG/0.5 ML INH NEB SOLN NEB SCH ×4 (07:45→20:00)
[2021-01-04] MEDS: FORMOTEROL FUMARATE 20 MCG/2 ML INHALATION SOLUTION (PERFOROMIST) INH SCH ×2 (07:45→20:00)
[2021-01-04] MEDS: MIDODRINE 5 MG TAB PO SCH ×3 (07:55→17:48)
[2021-01-04] MEDS: DIMETHICONE 2% OINTMENT(VANICREAM) 70GM TUBE TOP SCH ×2 (14:03→22:22)
--- NOTE | 2021-01-04 19:26 | IPN ---
NEPHROLOGY PROGRESS NOTE DATE: 01/04/2021 SUBJECTIVE: Patient was seen and examined at the bedside today morning during hemodialysis. He is tolerating the hemodialysis procedure well. He reports that his breathing is better after getting new tracheostomy tube. OBJECTIVE: VITAL SIGNS: Temperature 97.5 degrees Fahrenheit, blood pressure 150/69, pulse 68, respiratory rate 18, saturating 98% on trach collar at 6 liters. INTAKE AND OUTPUT: Urine output is not recorded. Weight in the bed scale is not available. PHYSICAL EXAMINATION: GENERAL: Patient is awake, alert, oriented x3, morbidly obese, lying in bed getting hemodialysis done. HEAD/NECK: Extraocular muscles intact. Pupils equally round and reactive to light. Mucous membranes are moist. Neck is supple. He has a tracheostomy tube with a trach collar. CARDIOVASCULAR: S1, S2, regular rate. 1+ edema of the bilateral thighs. RESPIRATORY: Chest is clear to auscultation bilaterally. Bilateral equal air entry. No rales or rhonchi. ABDOMEN: Obese, positive bowel sounds, nontender. No organomegaly. MUSCULOSKELETAL: Decreased range of movement of bilateral lower extremities. AV ACCESS: He has a right upper arm AV fistula, which is being used for dialysis. 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 He follows commands and moves bilateral upper extremities. LABORATORY REVIEW: CBC showed WBC 7.6, hemoglobin 10.7, platelets 103,000. BMP showed sodium 136, potassium 4.8, chloride 104, bicarb 25, BUN 48, creatinine 6. Albumin 2.9. CURRENT INPATIENT MEDICATIONS: Patient's medications were all reviewed by myself. No significant change in the medications today as compared with last time. ASSESSMENT AND PLAN: 1. End-stage renal disease: Patient is tolerating the hemodialysis. Ultrafiltration goal will be 3.5 liters as tolerated by his blood pressure. 2. Anemia and end-stage renal disease: Hemoglobin level is optimal. Continue current dose of Aranesp with dialysis. 3. Secondary hyperparathyroidism: Continue current dose of Calcitriol. 4. Chronic kidney disease/mineral bone disease: Continue current dose of Renvela with meals.
[2021-01-04] MEDS: PRAMIPEXOLE (MIRAPEX) 0.125 MG TAB PO SCH (22:20)
[2021-01-04] MEDS: SENOKOT S TAB PO SCH (22:20)
[2021-01-04] MEDS: oxyCODONE 5MG TAB PO PRN (22:21)
[2021-01-04] MEDS: clonazePAM 0.5 MG TAB PO PRN (22:21)
[2021-01-05] MEDS: ALBUTEROL SULFATE 2.5 MG/0.5 ML INH NEB SOLN NEB PRN (03:46)
[2021-01-05 06:00] VITALS: BP 142/68
[2021-01-05] MEDS: guaiFENesin SYRUP 200 MG/10 ML UDC PO SCH ×4 (06:32→17:10)
[2021-01-05] MEDS: clonazePAM 0.5 MG TAB PO PRN ×2 (06:32→21:00)
[2021-01-05] MEDS: oxyCODONE 5MG TAB PO PRN ×2 (06:33→17:11)
[2021-01-05] MEDS: (RENVELA) SEVELAMER **CARBONate** 800 MG TAB PO SCH ×3 (08:00→17:12)
[2021-01-05] MEDS: ALBUTEROL SULFATE 2.5 MG/0.5 ML INH NEB SOLN NEB SCH ×4 (08:00→20:17)
[2021-01-05] MEDS: FORMOTEROL FUMARATE 20 MCG/2 ML INHALATION SOLUTION (PERFOROMIST) INH SCH ×2 (08:20→20:17)
[2021-01-05] MEDS: BUDESONIDE 0.5 MG/2 ML INHALATION SUSPENSION INH SCH ×2 (08:20→20:17)
[2021-01-05] MEDS: levETIRAcetam 250MG TABLET (KEPPRA) PO SCH (08:47)
[2021-01-05] MEDS: AMIODARONE 200 MG TAB (PACERONE) PO SCH (08:47)
[2021-01-05] MEDS: VITAMIN D 1,000 INTERNATIONAL UNITS TABLET PO SCH (08:47)
[2021-01-05] MEDS: PANTOPRAZOLE 40MG TAB (PROTONIX) PO SCH (08:49)
[2021-01-05] MEDS: SERTRALINE 100 MG TAB PO SCH (08:49)
[2021-01-05] MEDS: MIDODRINE 5 MG TAB PO SCH ×3 (08:50→17:12)
[2021-01-05] MEDS: DIMETHICONE 2% OINTMENT(VANICREAM) 70GM TUBE TOP SCH ×2 (08:51→21:00)
[2021-01-05] MEDS: HEPARIN SOD (PORCINE) 5000UNITS/ML 1ML VIAL/SYRINGE SQ SCH (08:56)
[2021-01-05] MEDS: SENOKOT S TAB PO SCH (21:00)
[2021-01-05] MEDS: PRAMIPEXOLE (MIRAPEX) 0.125 MG TAB PO SCH (21:00)
[2021-01-06] MEDS: guaiFENesin SYRUP 200 MG/10 ML UDC PO SCH ×4 (01:06→18:00)
[2021-01-06] MEDS: ALBUTEROL SULFATE 2.5 MG/0.5 ML INH NEB SOLN NEB PRN ×3 (01:10→23:58)
[2021-01-06] MEDS: oxyCODONE 5MG TAB PO PRN ×2 (01:11→22:25)
[2021-01-06 06:00] VITALS: BP 156/73
[2021-01-06] MEDS: FORMOTEROL FUMARATE 20 MCG/2 ML INHALATION SOLUTION (PERFOROMIST) INH SCH ×2 (07:17→20:22)
[2021-01-06] MEDS: BUDESONIDE 0.5 MG/2 ML INHALATION SUSPENSION INH SCH ×2 (07:17→20:22)
[2021-01-06] MEDS: ALBUTEROL SULFATE 2.5 MG/0.5 ML INH NEB SOLN NEB SCH ×4 (07:17→20:23)
[2021-01-06] MEDS: (RENVELA) SEVELAMER **CARBONate** 800 MG TAB PO SCH ×3 (08:38→18:00)
[2021-01-06] MEDS: PANTOPRAZOLE 40MG TAB (PROTONIX) PO SCH (08:39)
[2021-01-06] MEDS: VITAMIN D 1,000 INTERNATIONAL UNITS TABLET PO SCH (08:39)
[2021-01-06] MEDS: SERTRALINE 100 MG TAB PO SCH (08:39)
[2021-01-06] MEDS: AMIODARONE 200 MG TAB (PACERONE) PO SCH (08:39)
[2021-01-06] MEDS: CALCITRIOL 0.25 MCG CAP (S0169) PO SCH (08:39)
[2021-01-06] MEDS: MIDODRINE 5 MG TAB PO SCH ×3 (08:39→16:00)
[2021-01-06] MEDS: levETIRAcetam 250MG TABLET (KEPPRA) PO SCH (08:39)
[2021-01-06] MEDS: DIMETHICONE 2% OINTMENT(VANICREAM) 70GM TUBE TOP SCH ×2 (08:40→22:26)
[2021-01-06] MEDS: clonazePAM 0.5 MG TAB PO PRN (22:23)
[2021-01-06] MEDS: SENOKOT S TAB PO SCH (22:25)
[2021-01-06] MEDS: PRAMIPEXOLE (MIRAPEX) 0.125 MG TAB PO SCH (22:25)
[2021-01-07] MEDS: guaiFENesin SYRUP 200 MG/10 ML UDC PO SCH ×5 (01:19→23:56)
[2021-01-07] MEDS: ALBUTEROL SULFATE 2.5 MG/0.5 ML INH NEB SOLN NEB PRN (03:50)
[2021-01-07] MEDS: VITAMIN D 1,000 INTERNATIONAL UNITS TABLET PO SCH (05:21)
[2021-01-07] MEDS: PANTOPRAZOLE 40MG TAB (PROTONIX) PO SCH (05:22)
[2021-01-07] MEDS: MIDODRINE 5 MG TAB PO SCH ×3 (05:22→16:59)
[2021-01-07] MEDS: SERTRALINE 100 MG TAB PO SCH (05:22)
[2021-01-07] MEDS: AMIODARONE 200 MG TAB (PACERONE) PO SCH (05:22)
[2021-01-07] MEDS: DIMETHICONE 2% OINTMENT(VANICREAM) 70GM TUBE TOP SCH ×2 (05:23→21:46)
[2021-01-07] MEDS: levETIRAcetam 250MG TABLET (KEPPRA) PO SCH (05:23)
[2021-01-07 06:00] VITALS: BP 111/47
[2021-01-07] MEDS: BUDESONIDE 0.5 MG/2 ML INHALATION SUSPENSION INH SCH ×2 (07:11→20:17)
[2021-01-07] MEDS: ALBUTEROL SULFATE 2.5 MG/0.5 ML INH NEB SOLN NEB SCH ×4 (07:12→20:17)
[2021-01-07] MEDS: FORMOTEROL FUMARATE 20 MCG/2 ML INHALATION SOLUTION (PERFOROMIST) INH SCH ×2 (07:12→20:17)
[2021-01-07] MEDS: (RENVELA) SEVELAMER **CARBONate** 800 MG TAB PO SCH ×4 (07:29→21:56)
[2021-01-07] MEDS ORDERED: LIDOCAINE 1% SDV 5ML VIAL SC PRN (07:45)
[2021-01-07] MEDS: oxyCODONE 5MG TAB PO PRN (21:45)
[2021-01-07] MEDS: PRAMIPEXOLE (MIRAPEX) 0.125 MG TAB PO SCH (21:45)
[2021-01-07] MEDS: SENOKOT S TAB PO SCH (21:45)
[2021-01-07] MEDS: clonazePAM 0.5 MG TAB PO PRN (21:45)
--- NOTE | 2021-01-07 23:26 | IPN ---
NEPHROLOGY PROGRESS NOTE DATE: 01/07/2021 SUBJECTIVE: Patient was seen and examined at the bedside today morning during hemodialysis. He is tolerating the hemodialysis procedure well. He denies any active complaints at this time. OBJECTIVE: VITAL SIGNS: Temperature 97.5 degrees Fahrenheit, blood pressure 111/47, pulse 62, respiratory rate 18, saturating 97% on trach collar at 5 liters. INTAKE AND OUTPUT: There is no urine output recorded. Weight in the bed scale is not available. PHYSICAL EXAMINATION: GENERAL: Patient is awake, alert, oriented x3, lying in bed getting hemodialysis done. HEAD/NECK: Extraocular muscles intact. Pupils equally round and reactive to light. Neck is supple. He has a trach collar. CARDIOVASCULAR: S1, S2, regular rate. 1+ edema of the thighs. RESPIRATORY: Chest is clear to auscultation bilaterally. Bilateral equal air entry. No rales or rhonchi. ABDOMEN: Soft, obese, positive bowel sounds. MUSCULOSKELETAL: Decreased range of movement of lower extremities. RADIOLOGY TRANSCRIPTIONIST: Power is 5/5 in bilateral upper extremities. He is able to follow commands. LABORATORY REVIEW: CBC showed WBC 7.6 and hemoglobin 10.7 on 01/04/2021. BMP is also from 01/04/2021. CURRENT INPATIENT MEDICATIONS: Patient's medications were all reviewed by myself. There is no significant change in the medications today as compared with last time. ASSESSMENT AND PLAN: 1. End-stage renal disease: Patient is being dialyzed. Ultrafiltration goal is around 3 liters as tolerated by his blood pressure. 2. Secondary hyperparathyroidism: Continue current dose of Calcitriol. 3. Chronic kidney disease/mineral bone disease: Continue current dose of Renvela for hyperphosphatemia. Patient is noncompliant with phosphorus binders. 4. Anemia and end-stage renal disease: Hemoglobin level is stable. Continue current dose of Aranesp with dialysis.
[2021-01-07] MEDS: CHLORASEPTIC SPRAY MT PRN (23:56)
[2021-01-08] MEDS: ALBUTEROL SULFATE 2.5 MG/0.5 ML INH NEB SOLN NEB PRN ×2 (04:39)
[2021-01-08] MEDS: guaiFENesin SYRUP 200 MG/10 ML UDC PO SCH ×4 (05:08→23:40)
[2021-01-08 06:00] VITALS: BP 115/52
[2021-01-08] MEDS: BUDESONIDE 0.5 MG/2 ML INHALATION SUSPENSION INH SCH ×2 (07:25→20:27)
[2021-01-08] MEDS: FORMOTEROL FUMARATE 20 MCG/2 ML INHALATION SOLUTION (PERFOROMIST) INH SCH ×2 (07:25→20:27)
[2021-01-08] MEDS: ALBUTEROL SULFATE 2.5 MG/0.5 ML INH NEB SOLN NEB SCH ×4 (07:25→20:27)
[2021-01-08] MEDS: (RENVELA) SEVELAMER **CARBONate** 800 MG TAB PO SCH ×3 (08:00→17:26)
[2021-01-08 09:00] VITALS: O2SAT 96
[2021-01-08] MEDS: CALCITRIOL 0.25 MCG CAP (S0169) PO SCH (09:05)
[2021-01-08] MEDS: levETIRAcetam 250MG TABLET (KEPPRA) PO SCH (09:05)
[2021-01-08] MEDS: MIDODRINE 5 MG TAB PO SCH ×3 (09:05→17:25)
[2021-01-08] MEDS: VITAMIN D 1,000 INTERNATIONAL UNITS TABLET PO SCH (09:05)
[2021-01-08] MEDS: AMIODARONE 200 MG TAB (PACERONE) PO SCH (09:05)
[2021-01-08] MEDS: SERTRALINE 100 MG TAB PO SCH (09:05)
[2021-01-08] MEDS: PANTOPRAZOLE 40MG TAB (PROTONIX) PO SCH (09:05)
[2021-01-08] MEDS: DIMETHICONE 2% OINTMENT(VANICREAM) 70GM TUBE TOP SCH ×2 (09:06→20:14)
--- NOTE | 2021-01-08 12:01 | IPNPDOC ---
Text Note Date of Service The patient was seen on 01/08/21. NOTE SUBJECTIVE: -No events overnight. -POD 6 for new trach placement by Dr. Ortega, stable -Patient denied chest pain, n/v/d, fevers, chills. OBJECTIVE: PHYSICAL EXAMINATION: VITAL SIGNS: please see below General: NAD, morbidly obese HEENT: PERRLA, EOMI, sclerae clear Neck: supple, normal ROM, no JVD. Trach with collar Respiratory: lungs CTAB, no wheeze, no rales, no crackles CVS: RRR, normal S1, S2, no murmurs Abdo: soft, no masses, no hepatosplenomegaly, BS+, no rebound tenderness Extremities: has muscle atrophy, no edema, WWP Neuro: no focal neuro deficits, moving all 4 extremities, CN2-12 intact. Psych: calm, cooperative, AAO x 3 LABORATORY DATA, IMAGING STUDIES, MICROBIOLOGY: Please see below. Reviewed. Last labs were on 01/04 with stable anemia. CXR 12/31/20: Cardiomegaly and elements of pulmonary vascular congestion/interstitial edema cannot be excluded along with possible subtle atelectasis. ASSESSMENT: Mr. Richard is a 50-year-old male with prolonged hospital course, acute on chronic hypoxemic hypercapnic respiratory failure 2/2 to restrictive lung disease from obesity, mucous plugging, with course c/b difficulty in securing placement due to dialysis and respiratory needs. PLAN: Acute on chronic hypoxemic hypercapnic respiratory failure 2/2 to restrictive lung disease from obesity, mucous plugging -Changed tracheostomy tube on 01/01/[address] Ortega, patient's feels improved since -C/w prednisone, albuterol ATC And PRN, pulmicort Morbid obesity BMI 52.5 Contributing to his restrictive lung disease and complicating care Severe spinal stenosis Continue pain regimen Incontinence-associated dermatitis/moisture associated skin damage - wound consult provided by Dr. Goncalves on 12/25/20 - wound care instructions are ordered. Clean with Johnsons baby shampoo, vashe for 10 min, appy interdry. - bilateral heel float boots, ABD pad under straps to protect skin on top of boot End-stage renal disease on hemodialysis/secondary hyperparathyroidism Neurology following and recommendations appreciated Continue with dialysis Tue,Thus, Sat -C/w calcitriol and sevelamer. GERD Continue PPI Depression/anxiety -Stable, assessed by psych this admission Continue sertraline and clonazepam Paroxysmal atrial fibrillation Continue amiodarone Seizure disorder Continue Keppra Anemia Stable Receives Aranesp at dialysis Debility Chronically bedridden Pending placement at [facility] Anxiety - C/w clonazepam to 0.5 mg TID prn DVT prophylaxis Heparin subcutaneous DISPOSITION: ALC status , pending placement to facility with HD chair as well as appropriate trach care. VS,Fishbone, I+O VS, Fishbone, I+O Vital Signs Date Time Temp Pulse Resp B/P (MAP) Pulse Ox O2 Delivery O2 Flow Rate FiO2 01/08/21 11:05 18 01/08/21 09:00 5.0 28 01/08/21 06:00 97.8 64 115/52 (73) 96 Trach Collar I&O- Last 24 Hours up to 6 AM 01/08/21 06:00 Intake Total 960 ml Output Total 3001 ml Balance -2041 ml ELTON BARAJAS MD Jan 08, 2021 12:01
[2021-01-08] MEDS: clonazePAM 0.5 MG TAB PO PRN (20:12)
[2021-01-08] MEDS: PRAMIPEXOLE (MIRAPEX) 0.125 MG TAB PO SCH (20:13)
[2021-01-08] MEDS: oxyCODONE 5MG TAB PO PRN (20:13)
[2021-01-08] MEDS: SENOKOT S TAB PO SCH (20:13)
[2021-01-09] MEDS: ALBUTEROL SULFATE 2.5 MG/0.5 ML INH NEB SOLN NEB PRN ×3 (00:09→23:06)
[2021-01-09] MEDS: MIDODRINE 5 MG TAB PO SCH ×4 (05:03→16:00)
[2021-01-09] MEDS: guaiFENesin SYRUP 200 MG/10 ML UDC PO SCH ×4 (05:03→23:16)
[2021-01-09] MEDS: levETIRAcetam 250MG TABLET (KEPPRA) PO SCH (05:04)
[2021-01-09] MEDS: VITAMIN D 1,000 INTERNATIONAL UNITS TABLET PO SCH (05:04)
[2021-01-09] MEDS: SERTRALINE 100 MG TAB PO SCH (05:05)
[2021-01-09] MEDS: PANTOPRAZOLE 40MG TAB (PROTONIX) PO SCH (05:05)
[2021-01-09] MEDS: AMIODARONE 200 MG TAB (PACERONE) PO SCH (05:05)
[2021-01-09 06:00] VITALS: BP 144/76
[2021-01-09] MEDS ORDERED: LIDOCAINE 1% SDV 5ML VIAL SC PRN (06:00)
[2021-01-09] MEDS: ALBUTEROL SULFATE 2.5 MG/0.5 ML INH NEB SOLN NEB SCH ×4 (08:00→20:03)
[2021-01-09] MEDS: (RENVELA) SEVELAMER **CARBONate** 800 MG TAB PO SCH ×4 (08:00→17:30)
[2021-01-09] MEDS: FORMOTEROL FUMARATE 20 MCG/2 ML INHALATION SOLUTION (PERFOROMIST) INH SCH ×2 (08:08→20:03)
[2021-01-09] MEDS: BUDESONIDE 0.5 MG/2 ML INHALATION SUSPENSION INH SCH ×2 (08:08→20:03)
[2021-01-09] MEDS: DIMETHICONE 2% OINTMENT(VANICREAM) 70GM TUBE TOP SCH ×2 (09:17→23:18)
[2021-01-09] MEDS: clonazePAM 0.5 MG TAB PO PRN ×2 (09:19→23:16)
[2021-01-09] MEDS: oxyCODONE 5MG TAB PO PRN ×2 (09:19→23:17)
[2021-01-09] MEDS ORDERED: DARBEPOETIN 100 MCG/0.5 ML *DIALYSIS* SYRINGE (J0882) IV SCH (10:00)
[2021-01-09 12:10] VITALS: BP 142/81
[2021-01-09 17:30] VITALS: BP 146/80
--- NOTE | 2021-01-09 22:28 | IPN ---
NEPHROLOGY PROGRESS NOTE DATE: 01/09/2021 SUBJECTIVE: The patient was seen and examined at the bedside today morning. Today is the patient's regular day of dialysis. He denies any active complaints at this time. OBJECTIVE: VITAL SIGNS: Temperature is 96.7 degrees Fahrenheit, blood pressure 146/80, pulse is 71, respiratory rate of 16, saturating 98% on a trach collar with 5 liters. INTAKE AND OUTPUT: There is no urine output recorded. Weight in the bed scale is not available. PHYSICAL EXAMINATION: GENERAL APPEARANCE: The patient is awake, alert, oriented x3, morbidly obese, laying in bed in no apparent distress. HEAD AND NECK: Extraocular muscles intact. Pupils are equally round and reactive to light. Mucous membranes are moist. Neck is supple. He has a trach collar. CARDIOVASCULAR: S1, S2, regular rate. EXTREMITIES: 1+ edema of the thighs. RESPIRATORY: Chest is clear to auscultation bilaterally. Bilaterally currently no rales or rhonchi. ABDOMEN: Soft, obese, positive bowel sounds. MUSCULOSKELETAL: Poor range of movement of the bilateral lower extremities. 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 The patient moves extremities and follows commands. LAB REVIEW: CBC is from January 04 and BMP is also from January 04. There are no new labs available. CURRENT INPATIENT MEDICATIONS: The patient's medications were all reviewed by myself. There is no significant change in the medications. ASSESSMENT AND PLAN: 1. End-stage renal disease today's is the patient's day of dialysis. Ultrafiltration goal is around 3 liters as tolerated by his blood pressure. 2. Chronic kidney disease, mineral bone disease and hyperphosphatemia - continue Renvela. 3. Anemia and end-stage renal disease - continue Aranesp with dialysis. 4. Secondary hyperparathyroidism - continue current dose of Calcitriol.
[2021-01-09] MEDS: PRAMIPEXOLE (MIRAPEX) 0.125 MG TAB PO SCH (23:16)
[2021-01-09] MEDS: SENOKOT S TAB PO SCH (23:16)
[2021-01-10] MEDS: ALBUTEROL SULFATE 2.5 MG/0.5 ML INH NEB SOLN NEB PRN (03:19)
[2021-01-10] MEDS: guaiFENesin SYRUP 200 MG/10 ML UDC PO SCH ×3 (05:19→17:21)
[2021-01-10 06:00] VITALS: BP 144/66
[2021-01-10] MEDS: levETIRAcetam 250MG TABLET (KEPPRA) PO SCH (07:49)
[2021-01-10] MEDS: ACETAMINOPHEN TAB 650MG DOSE (2X325MG) PO PRN (07:49)
[2021-01-10] MEDS: (RENVELA) SEVELAMER **CARBONate** 800 MG TAB PO SCH ×3 (07:49→17:21)
[2021-01-10] MEDS: SERTRALINE 100 MG TAB PO SCH (07:50)
[2021-01-10] MEDS: MIDODRINE 5 MG TAB PO SCH ×3 (07:50→17:21)
[2021-01-10] MEDS: AMIODARONE 200 MG TAB (PACERONE) PO SCH (07:50)
[2021-01-10] MEDS: PANTOPRAZOLE 40MG TAB (PROTONIX) PO SCH (07:50)
[2021-01-10] MEDS: CALCITRIOL 0.25 MCG CAP (S0169) PO SCH (07:50)
[2021-01-10] MEDS: VITAMIN D 1,000 INTERNATIONAL UNITS TABLET PO SCH (07:50)
[2021-01-10] MEDS: DIMETHICONE 2% OINTMENT(VANICREAM) 70GM TUBE TOP SCH ×2 (07:51→21:07)
[2021-01-10] MEDS: BUDESONIDE 0.5 MG/2 ML INHALATION SUSPENSION INH SCH ×2 (07:56→19:50)
[2021-01-10] MEDS: FORMOTEROL FUMARATE 20 MCG/2 ML INHALATION SOLUTION (PERFOROMIST) INH SCH ×2 (07:56→19:50)
[2021-01-10] MEDS: ALBUTEROL SULFATE 2.5 MG/0.5 ML INH NEB SOLN NEB SCH ×4 (07:57→19:50)
[2021-01-10 12:34] VITALS: O2SAT 98
[2021-01-10] MEDS: oxyCODONE 5MG TAB PO PRN ×2 (13:22→21:07)
[2021-01-10] MEDS: clonazePAM 0.5 MG TAB PO PRN ×2 (13:23→21:06)
[2021-01-10 19:50] VITALS: O2SAT 98
[2021-01-10] MEDS ORDERED: LIDOCAINE 1% SDV 5ML VIAL SC PRN (20:10)
[2021-01-10] MEDS: PRAMIPEXOLE (MIRAPEX) 0.125 MG TAB PO SCH (21:07)
[2021-01-10] MEDS: SENOKOT S TAB PO SCH (21:07)
[2021-01-11] MEDS: guaiFENesin SYRUP 200 MG/10 ML UDC PO SCH ×4 (00:19→17:05)
[2021-01-11 01:32] VITALS: O2SAT 95
[2021-01-11] MEDS: PANTOPRAZOLE 40MG TAB (PROTONIX) PO SCH (05:14)
[2021-01-11] MEDS: VITAMIN D 1,000 INTERNATIONAL UNITS TABLET PO SCH (05:15)
[2021-01-11] MEDS: MIDODRINE 5 MG TAB PO SCH ×3 (05:15→16:00)
[2021-01-11] MEDS: SERTRALINE 100 MG TAB PO SCH (05:16)
[2021-01-11] MEDS: levETIRAcetam 250MG TABLET (KEPPRA) PO SCH (05:16)
[2021-01-11] MEDS: AMIODARONE 200 MG TAB (PACERONE) PO SCH (05:16)
[2021-01-11] MEDS: DIMETHICONE 2% OINTMENT(VANICREAM) 70GM TUBE TOP SCH ×2 (05:17→21:28)
[2021-01-11] MEDS: ALBUTEROL SULFATE 2.5 MG/0.5 ML INH NEB SOLN NEB PRN (05:59)
[2021-01-11 06:00] VITALS: BP 140/71
[2021-01-11 07:06] LABS: BASO % 0.5 % (0.0-1.0); EOS # 0.6 10^3/uL (0.0-0.5); EOS % 8.4 % (0.0-3.0); HEMATOCRIT 40.5 % (42.0-52.0); HEMOGLOBIN 11.5 g/dl (13.5-17.5); LYMPH # 2.1 10^3/uL (1.5-5.0); LYMPH % 27.7 % (24.0-44.0); MEAN CORPUSCULAR HEMOGLOBIN 29.3 pg (27.0-33.0); MEAN CORPUSCULAR HGB CONC 28.4 g/dl (32.0-36.5); MEAN CORPUSCULAR VOLUME 103.1 fl (80.0-96.0); MONO # 0.4 10^3/uL (0.0-0.8); MONO % 5.6 % (2.0-8.0); NEUTROPHILS # 4.3 10^3/uL (1.5-8.5); NEUTROPHILS % 57.4 % (36.0-66.0); PLATELET COUNT, AUTOMATED 139 10^3/uL (150-450); RED BLOOD COUNT 3.93 10^6/uL (4.30-6.10); WHITE BLOOD COUNT 7.5 10^3/uL (4.0-10.0)
[2021-01-11 07:16] LABS: ALBUMIN 2.9 GM/DL (3.2-5.2); CALCIUM LEVEL 8.8 MG/DL (8.5-10.1); CREATININE FOR GFR 6.51 MG/DL (0.70-1.30); GLOMERULAR FILTRATION RATE 9.8 (>60); PHOSPHORUS LEVEL 6.7 MG/DL (2.5-4.9); POTASSIUM SERUM 4.8 MEQ/L (3.5-5.1)
[2021-01-11] MEDS: FORMOTEROL FUMARATE 20 MCG/2 ML INHALATION SOLUTION (PERFOROMIST) INH SCH ×2 (07:56→19:24)
[2021-01-11] MEDS: BUDESONIDE 0.5 MG/2 ML INHALATION SUSPENSION INH SCH ×2 (07:56→19:24)
[2021-01-11] MEDS: ALBUTEROL SULFATE 2.5 MG/0.5 ML INH NEB SOLN NEB SCH ×4 (08:00→19:25)
[2021-01-11] MEDS: (RENVELA) SEVELAMER **CARBONate** 800 MG TAB PO SCH ×3 (08:00→17:05)
[2021-01-11 13:18] VITALS: BP 123/48
[2021-01-11 17:02] VITALS: BP 162/61
[2021-01-11 19:25] VITALS: O2SAT 98
[2021-01-11] MEDS: clonazePAM 0.5 MG TAB PO PRN (20:48)
[2021-01-11] MEDS: ONDANSETRON 4 MG TAB PO PRN (20:48)
--- NOTE | 2021-01-11 20:54 | IPNPDOC ---
Text Note Date of Service The patient was seen on 01/11/21. NOTE Time of service 845pm Was informed by the patient's RN that he is vomiting and producing copious amounts of blood tinged secretions. At the time of my face to face visit the patient c/o having chest pain. PE: T 100. 7 / not flushed or diaphoretic / vomiting and coughing up sputum Plan: will obtain IV access and switch to IV zofran / f/u VBG and chest xray to r/o PNA / f/u KUB VS,Fishbone, I+O VS, Fishbone, I+O Laboratory Tests 01/11/21 06:31 Vital Signs Date Time Temp Pulse Resp B/P (MAP) Pulse Ox O2 Delivery O2 Flow Rate FiO2 01/11/21 19:25 19 01/11/21 19:25 98 Trach Collar 5.0 28 01/11/21 17:02 99.9 65 162/61 (94) I&O- Last 24 Hours up to 6 AM 01/11/21 06:00 Intake Total 1540 ml Output Total 0 ml Balance 1540 ml GORAN MOCTEZUMA MD Jan 11, 2021 20:54
[2021-01-11] MEDS ORDERED: ONDANSETRON 4MG/2ML VIAL IV PRN (20:55)
[2021-01-11 21:00] VITALS: O2SAT 95
[2021-01-11] MEDS: SENOKOT S TAB PO SCH (21:26)
[2021-01-11] MEDS: PRAMIPEXOLE (MIRAPEX) 0.125 MG TAB PO SCH (21:27)
[2021-01-11] MEDS: oxyCODONE 5MG TAB PO PRN (21:27)
[2021-01-11] MEDS: ACETAMINOPHEN TAB 650MG DOSE (2X325MG) PO PRN (21:28)
[2021-01-11 21:30] LABS: VENOUS BASE EXCESS -0.9 (-2.0-2.0); VENOUS HCO3 26.9 MEQ/L (23.0-27.0); VENOUS O2 SATURATION 90.6 % (60.0-80.0); VENOUS PARTIAL PRESSURE CO2 59.7 mmHg (38.0-50.0); VENOUS PARTIAL PRESSURE O2 63.7 mmHg (30.0-50.0); VENOUS PH 7.272 UNITS (7.330-7.430); VENOUS STANDARD HCO3 23.6 MEQ/L; VENOUS TOTAL CO2 28.8 MEQ/L (24.0-28.0)
[2021-01-11 21:31] LABS: HEMATOCRIT 40.7 % (42.0-52.0); HEMOGLOBIN 11.7 g/dl (13.5-17.5); MEAN CORPUSCULAR HEMOGLOBIN 29.3 pg (27.0-33.0); MEAN CORPUSCULAR HGB CONC 28.7 g/dl (32.0-36.5); MEAN CORPUSCULAR VOLUME 101.8 fl (80.0-96.0); PLATELET COUNT, AUTOMATED 127 10^3/uL (150-450)
--- NOTE | 2021-01-11 21:53 | REPVR ---
PROCEDURE INFORMATION: Exam: XR Abdomen Exam date and time: 01/11/2021 9:34 PM Age: 50 years old Clinical indication: Other: Fever and vomiting TECHNIQUE: Imaging protocol: XR of the abdomen. Views: Frontal supine view of the abdomen. 1 View. COMPARISON: CR Abdomen,Flat Plate KUB 03/16/2015 5:27 AM FINDINGS: Gastrointestinal tract: Mild gas primarily in the colon without abnormal dilatation. Moderate stool is suggested throughout much of the colon. Bones/joints: Unremarkable. Soft tissues: There are generous overlying soft tissues. IMPRESSION: 1. Generous overlying soft tissues. 2. Moderate colonic stool is suggested. 3. Otherwise negative abdomen with mild gas overall. Electronically signed by: Isaiah Escalante On 01/11/2021 21:52:35 PM
[2021-01-11 21:55] LABS: ATYPICAL LYMPH 5 % (0-5); BASOPHILS 2 % (0-1); EOSINOPHILS 5 % (0-3); LYMPHOCYTES 21 % (16-44); MONOCYTES 2 % (0-5); NEUTROPHILS 65 % (28-66)
[2021-01-11 21:56] LABS: ANISOCYTOSIS 1+; PLATELET ESTIMATE NORMAL (NORMAL)
--- NOTE | 2021-01-11 21:58 | REPVR ---
PROCEDURE INFORMATION: Exam: XR Chest Exam date and time: 01/11/2021 9:34 PM Age: 50 years old Clinical indication: Other: Fever and increased sputum production. R/O pna; Additional info: Fever and increased sputum production / R/O pna TECHNIQUE: Imaging protocol: XR of the chest Views: 1 view. COMPARISON: CR PORTABLE CHEST X-RAY 12/31/2020 8:44 AM FINDINGS: Tubes, catheters and devices: A tracheostomy tube is unchanged. Lungs: The lungs are unchanged with slight interstitial coarsening and slight left base haziness. No interval focal infiltrates. Pleural spaces: Unremarkable. No pleural effusion. No pneumothorax. Heart/Mediastinum: Persistent cardiomegaly. Bones/joints: Unremarkable. Soft tissues: There are generous overlying soft tissues. IMPRESSION: There has been little change from 12/31/2020. There is persistent interstitial coarsening with slight left base haziness which may reflect early pulmonary venous congestion. No interval focal infiltrates. Electronically signed by: Isaiah Escalante On 01/11/2021 21:59:01 PM
[2021-01-11 22:01] LABS: TEAR DROP CELLS 1+
--- NOTE | 2021-01-11 23:05 | IPN ---
NEPHROLOGY PROGRESS NOTE DATE: 01/11/2021 SUBJECTIVE: Patient was seen and examined today morning at the bedside during hemodialysis procedure. He is tolerating the hemodialysis procedure well. He denies any active complaints at this time. OBJECTIVE: VITAL SIGNS: Temperature 99.9 degrees Fahrenheit, blood pressure 162/61, pulse 65, respiratory rate 16, saturating 96% on trach collar at 5 liters. INTAKE AND OUTPUT: There is no urine output recorded. Weight in the bed scale is not available. PHYSICAL EXAMINATION: GENERAL: Patient is awake, alert, oriented x3, lying in bed getting hemodialysis done, morbidly obese. HEAD/NECK: Extraocular muscles intact. Pupils equally round and reactive to light. Mucous membranes are moist. Neck is supple. There is a trach collar. CARDIOVASCULAR: S1, S2, regular rate. 1+ edema of the thighs. RESPIRATORY: Chest is clear to auscultation bilaterally. Bilateral equal air entry. No rales or rhonchi. ABDOMEN: Soft, obese, positive bowel sounds. MUSCULOSKELETAL: Decreased range of movement of bilateral lower extremities because he is chronically bedridden. He has Waffle boots on the legs. 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 He moves extremities. LABORATORY REVIEW: CBC showed WBC 7.5, hemoglobin 11.5, platelets 139,000. BMP showed sodium 139, potassium 4.8, chloride 104, bicarb 27, BUN 53, creatinine 6.5. Phosphorus 6.7. CURRENT INPATIENT MEDICATIONS: Patient's medications were all reviewed by myself. No significant change in the medications. ASSESSMENT AND PLAN: 1. End-stage renal disease: Patient is being dialyzed today. Ultrafiltration goal is 3 liters as tolerated by his blood pressure. 2. Hyperphosphatemia and chronic kidney disease/mineral bone disease: Continue current dose of Renvela. Patient is noncompliant with the phosphorus binders. 3. Anemia and end-stage renal disease: Continue Aranesp with dialysis. Hemoglobin is optimal. 4. Secondary hyperparathyroidism: Continue Calcitriol.
[2021-01-12] MEDS: guaiFENesin SYRUP 200 MG/10 ML UDC PO SCH ×4 (00:50→17:48)
[2021-01-12] MEDS: ALBUTEROL SULFATE 2.5 MG/0.5 ML INH NEB SOLN NEB PRN ×2 (01:11→05:15)
[2021-01-12] MEDS: ONDANSETRON 4 MG TAB PO PRN (05:08)
[2021-01-12] MEDS: ACETAMINOPHEN TAB 650MG DOSE (2X325MG) PO PRN (05:09)
[2021-01-12 06:00] VITALS: BP 111/56
[2021-01-12] MEDS: ALBUTEROL SULFATE 2.5 MG/0.5 ML INH NEB SOLN NEB SCH ×4 (08:00→20:00)
[2021-01-12] MEDS: FORMOTEROL FUMARATE 20 MCG/2 ML INHALATION SOLUTION (PERFOROMIST) INH SCH ×2 (08:07→20:12)
[2021-01-12] MEDS: BUDESONIDE 0.5 MG/2 ML INHALATION SUSPENSION INH SCH ×2 (08:07→20:12)
[2021-01-12] MEDS: (RENVELA) SEVELAMER **CARBONate** 800 MG TAB PO SCH ×3 (09:24→17:48)
[2021-01-12] MEDS: levETIRAcetam 250MG TABLET (KEPPRA) PO SCH (09:25)
[2021-01-12] MEDS: SERTRALINE 100 MG TAB PO SCH (09:25)
[2021-01-12] MEDS: VITAMIN D 1,000 INTERNATIONAL UNITS TABLET PO SCH (09:25)
[2021-01-12] MEDS: CALCITRIOL 0.25 MCG CAP (S0169) PO SCH (09:25)
[2021-01-12] MEDS: AMIODARONE 200 MG TAB (PACERONE) PO SCH (09:26)
[2021-01-12] MEDS: MIDODRINE 5 MG TAB PO SCH ×3 (09:26→17:49)
[2021-01-12] MEDS: PANTOPRAZOLE 40MG TAB (PROTONIX) PO SCH (09:26)
[2021-01-12] MEDS: DIMETHICONE 2% OINTMENT(VANICREAM) 70GM TUBE TOP SCH ×2 (09:26→21:35)
[2021-01-12 12:56] VITALS: BP 99/44
[2021-01-12] MEDS: oxyCODONE 5MG TAB PO PRN ×2 (13:05→21:35)
[2021-01-12 17:45] VITALS: BP 104/42
[2021-01-12] MEDS: clonazePAM 0.5 MG TAB PO PRN (21:31)
[2021-01-12] MEDS: PRAMIPEXOLE (MIRAPEX) 0.125 MG TAB PO SCH (21:31)
[2021-01-12] MEDS: SENOKOT S TAB PO SCH (21:31)
[2021-01-13] MEDS: guaiFENesin SYRUP 200 MG/10 ML UDC PO SCH ×5 (00:22→23:47)
[2021-01-13] MEDS: CHLORASEPTIC SPRAY MT PRN (04:01)
[2021-01-13 06:00] VITALS: BP 92/41
[2021-01-13] MEDS: BUDESONIDE 0.5 MG/2 ML INHALATION SUSPENSION INH SCH ×2 (06:49→20:26)
[2021-01-13] MEDS: ALBUTEROL SULFATE 2.5 MG/0.5 ML INH NEB SOLN NEB SCH ×4 (06:50→20:26)
[2021-01-13] MEDS: FORMOTEROL FUMARATE 20 MCG/2 ML INHALATION SOLUTION (PERFOROMIST) INH SCH ×2 (06:50→20:26)
[2021-01-13] MEDS: VITAMIN D 1,000 INTERNATIONAL UNITS TABLET PO SCH (09:47)
[2021-01-13] MEDS: (RENVELA) SEVELAMER **CARBONate** 800 MG TAB PO SCH ×3 (09:47→17:46)
[2021-01-13] MEDS: MIDODRINE 5 MG TAB PO SCH ×3 (09:48→17:47)
[2021-01-13] MEDS: PANTOPRAZOLE 40MG TAB (PROTONIX) PO SCH (09:48)
[2021-01-13] MEDS: AMIODARONE 200 MG TAB (PACERONE) PO SCH (09:48)
[2021-01-13] MEDS: DIMETHICONE 2% OINTMENT(VANICREAM) 70GM TUBE TOP SCH ×2 (09:48→21:38)
[2021-01-13] MEDS: levETIRAcetam 250MG TABLET (KEPPRA) PO SCH (09:48)
[2021-01-13] MEDS: SERTRALINE 100 MG TAB PO SCH (09:48)
[2021-01-13] MEDS ORDERED: (RENVELA) SEVELAMER **CARBONate** 800 MG TAB As Ordered ONE (09:52)
[2021-01-13] MEDS: ALBUTEROL SULFATE 2.5 MG/0.5 ML INH NEB SOLN NEB PRN (09:57)
[2021-01-13] MEDS: SENOKOT S TAB PO SCH (21:38)
[2021-01-13] MEDS: PRAMIPEXOLE (MIRAPEX) 0.125 MG TAB PO SCH (21:38)
[2021-01-13] MEDS: clonazePAM 0.5 MG TAB PO PRN (21:41)
[2021-01-13] MEDS: oxyCODONE 5MG TAB PO PRN (21:42)
[2021-01-14] MEDS: ALBUTEROL SULFATE 2.5 MG/0.5 ML INH NEB SOLN NEB PRN ×3 (01:13→23:38)
[2021-01-14 06:00] VITALS: BP 104/52
[2021-01-14] MEDS: guaiFENesin SYRUP 200 MG/10 ML UDC PO SCH ×4 (06:30→23:20)
[2021-01-14] MEDS: levETIRAcetam 250MG TABLET (KEPPRA) PO SCH (06:31)
[2021-01-14] MEDS: VITAMIN D 1,000 INTERNATIONAL UNITS TABLET PO SCH (06:31)
[2021-01-14] MEDS: oxyCODONE 5MG TAB PO PRN ×2 (06:32→23:19)
[2021-01-14] MEDS: clonazePAM 0.5 MG TAB PO PRN ×2 (06:32→23:18)
[2021-01-14] MEDS: SERTRALINE 100 MG TAB PO SCH (06:32)
[2021-01-14] MEDS: CALCITRIOL 0.25 MCG CAP (S0169) PO SCH (06:32)
[2021-01-14] MEDS: AMIODARONE 200 MG TAB (PACERONE) PO SCH (06:32)
[2021-01-14] MEDS: PANTOPRAZOLE 40MG TAB (PROTONIX) PO SCH (06:32)
[2021-01-14] MEDS: (RENVELA) SEVELAMER **CARBONate** 800 MG TAB PO SCH ×3 (06:33→17:23)
[2021-01-14] MEDS: CHLORASEPTIC SPRAY MT PRN (06:37)
[2021-01-14] MEDS: FORMOTEROL FUMARATE 20 MCG/2 ML INHALATION SOLUTION (PERFOROMIST) INH SCH ×2 (07:01→20:16)
[2021-01-14] MEDS: BUDESONIDE 0.5 MG/2 ML INHALATION SUSPENSION INH SCH ×2 (07:01→20:16)
[2021-01-14] MEDS: ALBUTEROL SULFATE 2.5 MG/0.5 ML INH NEB SOLN NEB SCH ×4 (07:01→20:16)
[2021-01-14] MEDS: MIDODRINE 5 MG TAB PO SCH ×3 (08:05→17:24)
[2021-01-14] MEDS: DIMETHICONE 2% OINTMENT(VANICREAM) 70GM TUBE TOP SCH ×2 (09:00→23:20)
[2021-01-14 12:00] VITALS: BP 134/55
--- NOTE | 2021-01-14 16:33 | IPN ---
PROGRESS NOTE DATE: 01/14/2021 SUBJECTIVE: Matthew is seen and examined this morning in the hemodialysis unit receiving his maintenance treatment. He was persistently hypotensive during this treatment, and he required frequent saline administration. We were only able to remove about 400 mL of fluid, and his dialysis treatment was stopped early because of persistent hypotension with systolic in the 70s. Temperature 98.6, pulse 64, respiratory rate 20, blood pressure post dialysis 134/55, saturating 87%-95% on trach collar. Dialysis today removed 400 mL. Weight in the bed scale today is not recorded. GENERAL: Patient was seen in the hemodialysis unit receiving his treatment, snacking during dialysis but also drowsy and sleepy. Extraocular muscles are intact. Pupils are round and reactive to light. Mucous membranes are moist. Neck is supple. There is a trach collar. HEART: Sounds are regular, S1, S2. There is trace dependent edema. LUNGS: Clear to auscultation. No crackle or rale. ABDOMEN: Soft, obese, and nontender on exam. MUSCULOSKELETAL: He has waffle boots on his legs. He has decreased range of motion of his lower extremities. He is chronically bed ridden. There is trace dependent edema. The fistula in his arm is patent and in use. NEUROLOGIC: He is drowsy but easily arousable and at baseline mentation and intermittently snacking when he wakes up. Laboratory studies are reviewed from January 11. There are no labs from today. INPATIENT MEDICATIONS: Reviewed by myself, and no changes are noted over the past day. PROBLEMS: 1. End-stage renal disease, on hemodialysis. Patient had trouble during his treatment today. He was persistently hypotensive, although he was fairly asymptomatic, but his systolic blood pressure was staying in the 70s. We continued to reduce the goal fluid removal; however, his blood pressures did not come up. He did receive midodrine before his treatment. Ultimately his dialysis was stopped early because of persistent hypotension, and I have ordered repeat labs for tomorrow. His laboratory studies are intermittently checked, but given his inadequate dialysis today we will repeat labs tomorrow to see where we are. 2. Hypotension. Blood pressures were persistently soft on dialysis today. He continues on midodrine 10 mg three times a day. I will order albumin with his next dialysis treatment for blood pressure support. We will also get repeat laboratory studies. The patient has been afebrile, and aside from the hypotension on dialysis, his other blood pressures have been fairly stable. 3. Anemia of chronic renal failure. He continues on Aranesp, and hemoglobin is at goal.
[2021-01-14 20:17] VITALS: O2SAT 96
[2021-01-14] MEDS: PRAMIPEXOLE (MIRAPEX) 0.125 MG TAB PO SCH (23:18)
[2021-01-14] MEDS: SENOKOT S TAB PO SCH (23:20)
[2021-01-15] MEDS: ALBUTEROL SULFATE 2.5 MG/0.5 ML INH NEB SOLN NEB PRN ×2 (03:00→23:52)
[2021-01-15] MEDS: ONDANSETRON 4 MG TAB PO PRN (04:19)
[2021-01-15] MEDS: guaiFENesin SYRUP 200 MG/10 ML UDC PO SCH ×3 (05:12→17:15)
[2021-01-15 06:00] VITALS: BP 104/54
[2021-01-15 06:05] LABS: HEMATOCRIT 38.2 % (42.0-52.0); MEAN CORPUSCULAR HEMOGLOBIN 29.5 pg (27.0-33.0); MEAN CORPUSCULAR HGB CONC 28.8 g/dl (32.0-36.5); MEAN CORPUSCULAR VOLUME 102.4 fl (80.0-96.0); PLATELET COUNT, AUTOMATED 178 10^3/uL (150-450); RED BLOOD COUNT 3.73 10^6/uL (4.30-6.10); WHITE BLOOD COUNT 7.4 10^3/uL (4.0-10.0)
[2021-01-15] MEDS: BUDESONIDE 0.5 MG/2 ML INHALATION SUSPENSION INH SCH ×2 (07:05→20:34)
[2021-01-15] MEDS: FORMOTEROL FUMARATE 20 MCG/2 ML INHALATION SOLUTION (PERFOROMIST) INH SCH ×2 (07:05→20:34)
[2021-01-15] MEDS: ALBUTEROL SULFATE 2.5 MG/0.5 ML INH NEB SOLN NEB SCH ×4 (07:06→20:34)
[2021-01-15 07:23] LABS: CALCIUM LEVEL 8.6 MG/DL (8.5-10.1); CREATININE FOR GFR 6.49 MG/DL (0.70-1.30); GLOMERULAR FILTRATION RATE 9.8 (>60)
[2021-01-15] MEDS ORDERED: COVID IM ONE (08:00)
[2021-01-15] MEDS ORDERED: VACC MRNA IM ONE (08:00)
[2021-01-15] MEDS: (RENVELA) SEVELAMER **CARBONate** 800 MG TAB PO SCH ×4 (10:18→17:15)
[2021-01-15] MEDS: oxyCODONE 5MG TAB PO PRN ×2 (10:19→21:33)
[2021-01-15] MEDS: MIDODRINE 5 MG TAB PO SCH ×4 (10:19→17:15)
[2021-01-15] MEDS: levETIRAcetam 250MG TABLET (KEPPRA) PO SCH (10:19)
[2021-01-15] MEDS: VITAMIN D 1,000 INTERNATIONAL UNITS TABLET PO SCH (10:19)
[2021-01-15] MEDS: PANTOPRAZOLE 40MG TAB (PROTONIX) PO SCH (10:20)
[2021-01-15] MEDS: AMIODARONE 200 MG TAB (PACERONE) PO SCH (10:20)
[2021-01-15] MEDS: SERTRALINE 100 MG TAB PO SCH (10:20)
[2021-01-15] MEDS: DIMETHICONE 2% OINTMENT(VANICREAM) 70GM TUBE TOP SCH ×2 (10:21→21:33)
[2021-01-15] MEDS: clonazePAM 0.5 MG TAB PO PRN ×2 (10:27→21:33)
--- NOTE | 2021-01-15 19:36 | IPNPDOC ---
Subjective Date Seen The patient was seen on 01/15/21. Subjective Chief Complaint/HPI Patient was seen today at bedside with sister present. Reports some dyspnea, but denies any chest pain. Both sister and patient did not have any further questions Objective Physical Examination General Exam: Positive: Alert, Cooperative Eye Exam: Negative: Sclera icteric ENT Exam: Positive: Other ENT (trach in place) Chest Exam: Positive: Diminished Heart Exam: Positive: Rate Normal, Regular Rhythm Abdomen Exam: Positive: Normal bowel sounds, Soft; Negative: Tenderness Extremity Exam: Negative: Edema Neuro Exam: Negative: Normal Speech (doesn't speak) Psych Exam: Positive: Mental status NL, Mood NL Assessment /Plan Assessment Mr. Richard is a 50-year-old male with prolonged hospital course. He had chronic hypoxic and hypercapnic respiratory failure secondary to restrictive lung disease. He recently had trach replaced on 01/01/2021. He is a hemodialysis patient, being following by nephrology. Currently pending placement Plan/VTE VTE Prophylaxis Ordered?: Yes Plan 1. Chronic hypoxic and hypercapnic respiratory failure Secondary to restrictive lung disease from obesity and mucus plugging Has a trach. Last changed on 01/01/2021 Continue albuterol, budesonide, formoterol fumarate, and Mucinex 2. Morbid obesity BMI 52.5 Contributing to his restrictive lung disease and complicating care 3. Severe spinal stenosis Continue pain regimen 4. End-stage renal disease on hemodialysis Neurology following and recommendations appreciated Continue with dialysis 5. GERD Continue PPI 6. Depression/anxiety Continue sertraline and clonazepam 7. Paroxysmal atrial fibrillation Continue amiodarone 8. Seizure disorder Continue Keppra 9. Hypotension Continue medication on dialysis days 10. Anemia Stable Receives Aranesp at dialysis 11. Debility Chronically bedridden Pending placement at halfway 12. Incontinence-associated dermatitis -Wound consult on 12/25/[address] Goncalves -Wound care instructions in place. Clean with Johnsons baby shampoo, vashe for 10 mins, appy interdry -Bilateral heel float boots, ABD pad under straps to protect skin on top of boot 13. DVT prophylaxis Heparin subcutaneous Disposition: Pending placement, remain on ALC status VS, I&O, 24H, Fishbone Vital Signs/I&O Vital Signs Date Time Temp Pulse Resp B/P (MAP) Pulse Ox O2 Delivery O2 Flow Rate FiO2 01/15/21 10:53 18 01/15/21 09:45 5.0 28 01/15/21 06:00 97.6 62 104/54 (71) 96 Trach Collar I&O- Last 24 Hours up to 6 AM 01/15/21 06:00 Intake Total 1080 ml Output Total 383 ml Balance 697 ml Laboratory Data 24H LABS Laboratory Tests 2 01/15/21 05:18: Nucleated Red Blood Cells % (auto) 0.0 01/15/21 06:36: Anion Gap 9, Glomerular Filtration Rate 9.8L, Calcium Level 8.6 CBC/BMP Laboratory Tests 01/15/21 05:18 01/15/21 06:36 S[facility] [place] 24, 2021 19:36
[2021-01-15 20:34] VITALS: O2SAT 96
[2021-01-15] MEDS: PRAMIPEXOLE (MIRAPEX) 0.125 MG TAB PO SCH (21:33)
[2021-01-15] MEDS: SENOKOT S TAB PO SCH (21:33)
[2021-01-16] MEDS: guaiFENesin SYRUP 200 MG/10 ML UDC PO SCH ×4 (00:07→17:15)
[2021-01-16 06:00] VITALS: BP 119/58
[2021-01-16] MEDS: ALBUTEROL SULFATE 2.5 MG/0.5 ML INH NEB SOLN NEB PRN (06:20)
[2021-01-16] MEDS: levETIRAcetam 250MG TABLET (KEPPRA) PO SCH (06:31)
[2021-01-16] MEDS: SERTRALINE 100 MG TAB PO SCH (06:31)
[2021-01-16] MEDS: AMIODARONE 200 MG TAB (PACERONE) PO SCH (06:32)
[2021-01-16] MEDS: oxyCODONE 5MG TAB PO PRN ×2 (06:32→20:53)
[2021-01-16] MEDS: CALCITRIOL 0.25 MCG CAP (S0169) PO SCH (06:32)
[2021-01-16] MEDS: (RENVELA) SEVELAMER **CARBONate** 800 MG TAB PO SCH ×3 (06:32→17:15)
[2021-01-16] MEDS: MIDODRINE 5 MG TAB PO SCH ×3 (06:33→17:15)
[2021-01-16] MEDS: clonazePAM 0.5 MG TAB PO PRN ×2 (06:33→20:52)
[2021-01-16] MEDS: PANTOPRAZOLE 40MG TAB (PROTONIX) PO SCH (06:33)
[2021-01-16] MEDS: VITAMIN D 1,000 INTERNATIONAL UNITS TABLET PO SCH (06:33)
[2021-01-16] MEDS: BUDESONIDE 0.5 MG/2 ML INHALATION SUSPENSION INH SCH ×2 (07:09→19:58)
[2021-01-16] MEDS: FORMOTEROL FUMARATE 20 MCG/2 ML INHALATION SOLUTION (PERFOROMIST) INH SCH ×2 (07:09→19:58)
[2021-01-16] MEDS: ALBUTEROL SULFATE 2.5 MG/0.5 ML INH NEB SOLN NEB SCH ×4 (07:09→19:58)
[2021-01-16] MEDS: DIMETHICONE 2% OINTMENT(VANICREAM) 70GM TUBE TOP SCH ×2 (09:14→20:54)
[2021-01-16] MEDS: DARBEPOETIN 100 MCG/0.5 ML *DIALYSIS* SYRINGE (J0882) IV SCH (11:17)
--- NOTE | 2021-01-16 13:32 | IPN ---
PROGRESS NOTE DATE: 01/16/2021 Mr. Richard is seen this morning during hemodialysis on his bedside. Nursing staff report that on arrival to dialysis room, his oxygen saturation was in 70s, and he is currently on 10 liters of oxygen via trach collar. Patient also had suctioning done by respiratory therapist. Patient denies any fever or chills. At present he looks comfortable. PHYSICAL EXAMINATION: Temperature 98.6 degrees Fahrenheit, heart rate 70 per minute, respiratory rate 20 per minute, blood pressure 100/50 mmHg, and oxygen saturation 94% on trach collar. Head is atraumatic. Neck supple, and jugular venous distention (JVD) difficult to be assessed. Patient is edentulous and without any oral thrush or ulcer. Heart sounds are regular and lungs with diminished breath sounds. Abdomen obese and nontender. There is minimal edema on the lateral dependent parts. Extremities have no cyanosis or clubbing. Right arteriovenous (AV) fistula is currently being used for hemodialysis. He has bilateral lower extremity plegia due to severe spinal stenosis. Patient did not have any new labs done today. PROBLEMS: 1. End-stage renal disease. Patient is currently being dialyzed, and he is tolerating his dialysis treatment well. 2. Respiratory failure. Patient has tracheostomy in place and is requiring frequent suctioning due to secretions. His volume status is reasonable, and we are trying to remove about 3 liters of fluid today as tolerated. His blood pressure is somewhat soft; however, we will continue our efforts to remove at least 3 liters of fluid. 3. Anemia. His anemia has improved and corrected with hemoglobin 11.0 or above. I am cutting down his Aranesp dose to 100 mcg once a week.
[2021-01-16 19:59] VITALS: O2SAT 96
[2021-01-16] MEDS: PRAMIPEXOLE (MIRAPEX) 0.125 MG TAB PO SCH (20:52)
[2021-01-16] MEDS: SENOKOT S TAB PO SCH (20:52)
[2021-01-17] MEDS: ALBUTEROL SULFATE 2.5 MG/0.5 ML INH NEB SOLN NEB PRN ×2 (00:11→05:37)
[2021-01-17] MEDS: guaiFENesin SYRUP 200 MG/10 ML UDC PO SCH ×4 (00:56→17:34)
[2021-01-17 06:00] VITALS: BP 106/57
[2021-01-17] MEDS: FORMOTEROL FUMARATE 20 MCG/2 ML INHALATION SOLUTION (PERFOROMIST) INH SCH ×2 (07:07→20:15)
[2021-01-17] MEDS: BUDESONIDE 0.5 MG/2 ML INHALATION SUSPENSION INH SCH ×2 (07:07→20:15)
[2021-01-17] MEDS: ALBUTEROL SULFATE 2.5 MG/0.5 ML INH NEB SOLN NEB SCH ×4 (07:07→20:15)
[2021-01-17] MEDS: (RENVELA) SEVELAMER **CARBONate** 800 MG TAB PO SCH ×4 (08:00→17:34)
[2021-01-17] MEDS: VITAMIN D 1,000 INTERNATIONAL UNITS TABLET PO SCH (09:05)
[2021-01-17] MEDS: SERTRALINE 100 MG TAB PO SCH (09:05)
[2021-01-17] MEDS: levETIRAcetam 250MG TABLET (KEPPRA) PO SCH (09:05)
[2021-01-17] MEDS: DIMETHICONE 2% OINTMENT(VANICREAM) 70GM TUBE TOP SCH ×2 (09:06→21:42)
[2021-01-17] MEDS: AMIODARONE 200 MG TAB (PACERONE) PO SCH (09:06)
[2021-01-17] MEDS: MIDODRINE 5 MG TAB PO SCH ×3 (09:06→17:34)
[2021-01-17] MEDS: PANTOPRAZOLE 40MG TAB (PROTONIX) PO SCH (09:06)
[2021-01-17] MEDS: oxyCODONE 5MG TAB PO PRN (21:42)
[2021-01-17] MEDS: PRAMIPEXOLE (MIRAPEX) 0.125 MG TAB PO SCH (21:42)
[2021-01-17] MEDS: SENOKOT S TAB PO SCH (21:42)
[2021-01-17] MEDS: clonazePAM 0.5 MG TAB PO PRN (21:42)
[2021-01-18] MEDS: ALBUTEROL SULFATE 2.5 MG/0.5 ML INH NEB SOLN NEB PRN ×3 (00:33→14:47)
[2021-01-18] MEDS: guaiFENesin SYRUP 200 MG/10 ML UDC PO SCH ×4 (00:34→17:07)
[2021-01-18 06:00] VITALS: BP 127/58
[2021-01-18] MEDS: PANTOPRAZOLE 40MG TAB (PROTONIX) PO SCH (06:19)
[2021-01-18] MEDS: CALCITRIOL 0.25 MCG CAP (S0169) PO SCH (06:19)
[2021-01-18] MEDS: VITAMIN D 1,000 INTERNATIONAL UNITS TABLET PO SCH (06:19)
[2021-01-18] MEDS: levETIRAcetam 250MG TABLET (KEPPRA) PO SCH (06:20)
[2021-01-18] MEDS: SERTRALINE 100 MG TAB PO SCH (06:20)
[2021-01-18] MEDS: AMIODARONE 200 MG TAB (PACERONE) PO SCH (06:20)
[2021-01-18] MEDS: DIMETHICONE 2% OINTMENT(VANICREAM) 70GM TUBE TOP SCH ×2 (06:20→20:27)
[2021-01-18] MEDS: BUDESONIDE 0.5 MG/2 ML INHALATION SUSPENSION INH SCH ×2 (07:46→20:42)
[2021-01-18] MEDS: FORMOTEROL FUMARATE 20 MCG/2 ML INHALATION SOLUTION (PERFOROMIST) INH SCH ×2 (07:47→20:40)
[2021-01-18] MEDS: ALBUTEROL SULFATE 2.5 MG/0.5 ML INH NEB SOLN NEB SCH ×4 (07:51→20:40)
[2021-01-18] MEDS: MIDODRINE 5 MG TAB PO SCH ×3 (07:57→17:07)
[2021-01-18] MEDS: (RENVELA) SEVELAMER **CARBONate** 800 MG TAB PO SCH ×3 (07:58→17:07)
[2021-01-18 08:20] VITALS: O2SAT 93
[2021-01-18] MEDS: CARBAMIDE PEROXIDE 6.5% OTIC SOLN 15ML AU SCH ×2 (14:47→20:26)
--- NOTE | 2021-01-18 17:40 | IPN ---
PROGRESS NOTE DATE: 01/18/2021 SUBJECTIVE: Mr. Barahona is seen this morning during hemodialysis. He is resting comfortably and remains on trach collar. PHYSICAL EXAMINATION: Temperature 97.2 degrees Fahrenheit, heart rate 62 per minute, respiratory rate 18 per minute, blood pressure at present is about 104/50 mmHg, oxygen saturation 98%. HEAD: Atraumatic. Trach collar is in place and neck veins are difficult to be assessed. Patient is lying flat. HEART SOUNDS: Regular and distant. LUNGS: Moderate air entry bilaterally and breath sounds are diminished due to morbid obesity. ABDOMEN: Obese and nontender. Bowel sounds are normal. EXTREMITIES: Without any cyanosis or clubbing. Right arm arteriovenous (AV) fistula is being used for dialysis. Bilateral lower extremity plegia is unchanged. LABORATORY STUDIES: Patient has not had any new labs done since December. PROBLEMS: 1. End-stage renal disease. Patient is being dialyzed and he is tolerating dialysis very well. 2. Respiratory failure. This is mostly related to his obesity-associated hypoventilation and sleep apnea. He has a tracheostomy with some problems with it and continues to require frequent suctioning. Volume status is reasonably well-compensated. 3. Anemia. His anemia has been stable and Aranesp dose has been cut down. 4. Hypotension. Patient has chronic hypotension and remains on midodrine 10 mg three times a day. Overall, patient remains on alternate level of care; however, he requires frequent suctioning.
[2021-01-18] MEDS: clonazePAM 0.5 MG TAB PO PRN (20:26)
[2021-01-18] MEDS: PRAMIPEXOLE (MIRAPEX) 0.125 MG TAB PO SCH (20:26)
[2021-01-18] MEDS: SENOKOT S TAB PO SCH (20:26)
[2021-01-18] MEDS: oxyCODONE 5MG TAB PO PRN (20:27)
[2021-01-18 23:13] VITALS: O2SAT 95
[2021-01-19] MEDS: guaiFENesin SYRUP 200 MG/10 ML UDC PO SCH ×5 (00:07→23:34)
[2021-01-19] MEDS: ALBUTEROL SULFATE 2.5 MG/0.5 ML INH NEB SOLN NEB PRN ×2 (00:09→05:05)
[2021-01-19 06:00] VITALS: BP 161/87
[2021-01-19] MEDS: FORMOTEROL FUMARATE 20 MCG/2 ML INHALATION SOLUTION (PERFOROMIST) INH SCH ×2 (07:20→20:24)
[2021-01-19] MEDS: BUDESONIDE 0.5 MG/2 ML INHALATION SUSPENSION INH SCH ×2 (07:20→20:24)
[2021-01-19] MEDS: ALBUTEROL SULFATE 2.5 MG/0.5 ML INH NEB SOLN NEB SCH ×4 (07:20→20:24)
[2021-01-19] MEDS: (RENVELA) SEVELAMER **CARBONate** 800 MG TAB PO SCH ×3 (08:00→17:23)
[2021-01-19 09:00] VITALS: O2SAT 94
[2021-01-19] MEDS: AMIODARONE 200 MG TAB (PACERONE) PO SCH (10:36)
[2021-01-19] MEDS: VITAMIN D 1,000 INTERNATIONAL UNITS TABLET PO SCH (10:36)
[2021-01-19] MEDS: SERTRALINE 100 MG TAB PO SCH (10:36)
[2021-01-19] MEDS: levETIRAcetam 250MG TABLET (KEPPRA) PO SCH (10:36)
[2021-01-19] MEDS: PANTOPRAZOLE 40MG TAB (PROTONIX) PO SCH (10:36)
[2021-01-19] MEDS: CARBAMIDE PEROXIDE 6.5% OTIC SOLN 15ML AU SCH ×2 (10:37→21:42)
[2021-01-19] MEDS: MIDODRINE 5 MG TAB PO SCH ×3 (10:37→17:23)
[2021-01-19] MEDS: DIMETHICONE 2% OINTMENT(VANICREAM) 70GM TUBE TOP SCH ×2 (10:37→21:42)
[2021-01-19 14:00] VITALS: BP 104/52
[2021-01-19 20:25] VITALS: O2SAT 96
[2021-01-19] MEDS: oxyCODONE 5MG TAB PO PRN (21:41)
[2021-01-19] MEDS: SENOKOT S TAB PO SCH (21:41)
[2021-01-19] MEDS: PRAMIPEXOLE (MIRAPEX) 0.125 MG TAB PO SCH (21:41)
[2021-01-19] MEDS: clonazePAM 0.5 MG TAB PO PRN (21:41)
[2021-01-20] VITALS (7 sets, daily range): BP systolic 120–147; BP diastolic 52–83; O2SAT 93–97
[2021-01-20] MEDS: ALBUTEROL SULFATE 2.5 MG/0.5 ML INH NEB SOLN NEB PRN ×4 (00:12→23:57)
[2021-01-20] MEDS: guaiFENesin SYRUP 200 MG/10 ML UDC PO SCH ×4 (05:59→23:43)
[2021-01-20] MEDS: FORMOTEROL FUMARATE 20 MCG/2 ML INHALATION SOLUTION (PERFOROMIST) INH SCH ×2 (07:19→19:30)
[2021-01-20] MEDS: ALBUTEROL SULFATE 2.5 MG/0.5 ML INH NEB SOLN NEB SCH ×4 (07:19→19:30)
[2021-01-20] MEDS: BUDESONIDE 0.5 MG/2 ML INHALATION SUSPENSION INH SCH ×2 (07:19→19:30)
[2021-01-20] MEDS: MIDODRINE 5 MG TAB PO SCH ×3 (08:00→17:16)
[2021-01-20] MEDS: AMIODARONE 200 MG TAB (PACERONE) PO SCH (09:19)
[2021-01-20] MEDS: CALCITRIOL 0.25 MCG CAP (S0169) PO SCH (09:19)
[2021-01-20] MEDS: VITAMIN D 1,000 INTERNATIONAL UNITS TABLET PO SCH (09:19)
[2021-01-20] MEDS: PANTOPRAZOLE 40MG TAB (PROTONIX) PO SCH (09:19)
[2021-01-20] MEDS: levETIRAcetam 250MG TABLET (KEPPRA) PO SCH (09:19)
[2021-01-20] MEDS: (RENVELA) SEVELAMER **CARBONate** 800 MG TAB PO SCH ×3 (09:20→17:16)
[2021-01-20] MEDS: DIMETHICONE 2% OINTMENT(VANICREAM) 70GM TUBE TOP SCH ×2 (09:20→21:34)
[2021-01-20] MEDS: SERTRALINE 100 MG TAB PO SCH (09:20)
[2021-01-20] MEDS: CARBAMIDE PEROXIDE 6.5% OTIC SOLN 15ML AU SCH ×2 (09:20→21:34)
[2021-01-20] MEDS: SENOKOT S TAB PO SCH (21:34)
[2021-01-20] MEDS: clonazePAM 0.5 MG TAB PO PRN (21:34)
[2021-01-20] MEDS: PRAMIPEXOLE (MIRAPEX) 0.125 MG TAB PO SCH (21:34)
[2021-01-20] MEDS: oxyCODONE 5MG TAB PO PRN (21:35)
[2021-01-21] VITALS (7 sets, daily range): BP systolic 147–152; BP diastolic 55–73; O2SAT 91–98
[2021-01-21] MEDS: ALBUTEROL SULFATE 2.5 MG/0.5 ML INH NEB SOLN NEB PRN ×2 (04:30→23:34)
[2021-01-21] MEDS: levETIRAcetam 250MG TABLET (KEPPRA) PO SCH (06:06)
[2021-01-21] MEDS: SERTRALINE 100 MG TAB PO SCH (06:07)
[2021-01-21] MEDS: VITAMIN D 1,000 INTERNATIONAL UNITS TABLET PO SCH (06:07)
[2021-01-21] MEDS: guaiFENesin SYRUP 200 MG/10 ML UDC PO SCH ×3 (06:08→17:41)
[2021-01-21] MEDS: AMIODARONE 200 MG TAB (PACERONE) PO SCH (06:08)
[2021-01-21] MEDS: PANTOPRAZOLE 40MG TAB (PROTONIX) PO SCH (06:08)
[2021-01-21] MEDS: ALBUTEROL SULFATE 2.5 MG/0.5 ML INH NEB SOLN NEB SCH ×4 (07:07→19:42)
[2021-01-21] MEDS: BUDESONIDE 0.5 MG/2 ML INHALATION SUSPENSION INH SCH ×2 (07:07→19:42)
[2021-01-21] MEDS: FORMOTEROL FUMARATE 20 MCG/2 ML INHALATION SOLUTION (PERFOROMIST) INH SCH ×2 (07:07→19:42)
[2021-01-21] MEDS: MIDODRINE 5 MG TAB PO SCH ×3 (07:45→17:12)
[2021-01-21] MEDS: (RENVELA) SEVELAMER **CARBONate** 800 MG TAB PO SCH ×3 (07:45→17:40)
[2021-01-21] MEDS: CARBAMIDE PEROXIDE 6.5% OTIC SOLN 15ML AU SCH ×2 (07:45→20:41)
[2021-01-21] MEDS: DIMETHICONE 2% OINTMENT(VANICREAM) 70GM TUBE TOP SCH ×2 (07:46→20:40)
[2021-01-21 09:32] LABS: BASO # 0.1 10^3/uL (0.0-0.2); BASO % 0.7 % (0.0-1.0); EOS % 13.9 % (0.0-3.0); HEMATOCRIT 36.4 % (42.0-52.0); LYMPH # 2.1 10^3/uL (1.5-5.0); MEAN CORPUSCULAR HEMOGLOBIN 29.6 pg (27.0-33.0); MEAN CORPUSCULAR HGB CONC 30.2 g/dl (32.0-36.5); MEAN CORPUSCULAR VOLUME 97.8 fl (80.0-96.0); MONO # 0.5 10^3/uL (0.0-0.8); MONO % 6.9 % (2.0-8.0); NEUTROPHILS # 3.6 10^3/uL (1.5-8.5); NEUTROPHILS % 49.2 % (36.0-66.0); PLATELET COUNT, AUTOMATED 155 10^3/uL (150-450); RED BLOOD COUNT 3.72 10^6/uL (4.30-6.10); WHITE BLOOD COUNT 7.4 10^3/uL (4.0-10.0)
[2021-01-21 09:51] LABS: ALBUMIN 2.9 GM/DL (3.2-5.2); CALCIUM LEVEL 8.3 MG/DL (8.5-10.1); CREATININE FOR GFR 7.81 MG/DL (0.70-1.30); GLOMERULAR FILTRATION RATE 7.9 (>60); PHOSPHORUS LEVEL 6.3 MG/DL (2.5-4.9); POTASSIUM SERUM 4.3 MEQ/L (3.5-5.1)
--- NOTE | 2021-01-21 13:18 | IPN ---
PROGRESS NOTE DATE: 01/21/2021 SUBJECTIVE: Mr. Richard is seen this morning during hemodialysis. The nursing staff reports that he ordered his breakfast from [employer] and ate it all. He is currently resting. He remains on trach collar without any change in his respiratory status. OBJECTIVE: VITAL SIGNS: Temperature is 97.8 degrees Fahrenheit, heart rate is 64 per minute and respiratory rate 18 per minute. Blood pressure was 147/56 mmHg and down to 104/50 mmHg now. HEAD AND NECK: Head is atraumatic. Neck is supple. JVD is difficult to be assessed. Tracheostomy is in place. HEART: Heart sounds are regular. Lungs with diminished breath sounds at dependent parts. ABDOMEN: Obese and nontender. Bowel sounds are present. EXTREMITIES: Without any cyanosis or clubbing. Bilateral lower extremity plegia is related to severe spinal stenosis. LABORATORY DATA: Today's labs drawn during dialysis revealed a WBC count of 7.4, hemoglobin 11.0 and hematocrit 36.4. Sodium 139, potassium 4.3, CO2 25, BUN 58 and creatinine 7.8. Calcium is 8.3 and phosphorus 6.3. Serum albumin is 2.9. PROBLEMS: 1. Endstage renal disease. Patient is being dialyzed and he is tolerating dialysis treatment very well. 2. Respiratory failure, this is chronic and is related to obstructive sleep apnea and obesity associated hypoventilation. His volume status is reasonably well-compensated at present and we are trying to remove about 3.5 liters of fluid as tolerated. 3. Anemia. Anemia is stable and he will continue with weekly dose of Aranesp. 4. Hyperphosphatemia. Patient has mild hyperphosphatemia related to his noncompliance with dietary restrictions and phosphate binders.
[2021-01-21] MEDS: SENOKOT S TAB PO SCH (20:40)
[2021-01-21] MEDS: PRAMIPEXOLE (MIRAPEX) 0.125 MG TAB PO SCH (20:40)
[2021-01-21] MEDS: clonazePAM 0.5 MG TAB PO PRN (20:40)
[2021-01-21] MEDS: oxyCODONE 5MG TAB PO PRN (20:41)
[2021-01-22] MEDS: ALBUTEROL SULFATE 2.5 MG/0.5 ML INH NEB SOLN NEB PRN (03:23)
[2021-01-22] MEDS: guaiFENesin SYRUP 200 MG/10 ML UDC PO SCH ×5 (04:54→23:03)
[2021-01-22 06:00] VITALS: BP 149/78
[2021-01-22] MEDS: BUDESONIDE 0.5 MG/2 ML INHALATION SUSPENSION INH SCH ×2 (07:17→19:45)
[2021-01-22] MEDS: ALBUTEROL SULFATE 2.5 MG/0.5 ML INH NEB SOLN NEB SCH ×4 (07:17→19:45)
[2021-01-22] MEDS: FORMOTEROL FUMARATE 20 MCG/2 ML INHALATION SOLUTION (PERFOROMIST) INH SCH ×2 (07:17→19:45)
[2021-01-22] MEDS: PANTOPRAZOLE 40MG TAB (PROTONIX) PO SCH (08:39)
[2021-01-22] MEDS: levETIRAcetam 250MG TABLET (KEPPRA) PO SCH (08:39)
[2021-01-22] MEDS: VITAMIN D 1,000 INTERNATIONAL UNITS TABLET PO SCH (08:39)
[2021-01-22] MEDS: (RENVELA) SEVELAMER **CARBONate** 800 MG TAB PO SCH ×3 (08:39→16:56)
[2021-01-22] MEDS: clonazePAM 0.5 MG TAB PO PRN ×2 (08:40→20:13)
[2021-01-22] MEDS: oxyCODONE 5MG TAB PO PRN ×2 (08:40→20:14)
[2021-01-22] MEDS: SERTRALINE 100 MG TAB PO SCH (08:40)
[2021-01-22] MEDS: MIDODRINE 5 MG TAB PO SCH ×3 (08:40→16:00)
[2021-01-22] MEDS: AMIODARONE 200 MG TAB (PACERONE) PO SCH (08:41)
[2021-01-22] MEDS: DIMETHICONE 2% OINTMENT(VANICREAM) 70GM TUBE TOP SCH ×2 (08:41→20:14)
[2021-01-22] MEDS: CALCITRIOL 0.25 MCG CAP (S0169) PO SCH (08:41)
[2021-01-22 08:50] VITALS: O2SAT 94
[2021-01-22 16:55] VITALS: BP 160/75
[2021-01-22] MEDS: PRAMIPEXOLE (MIRAPEX) 0.125 MG TAB PO SCH (20:13)
[2021-01-22] MEDS: SENOKOT S TAB PO SCH (20:13)
[2021-01-22 20:25] VITALS: O2SAT 98
[2021-01-23] MEDS: ALBUTEROL SULFATE 2.5 MG/0.5 ML INH NEB SOLN NEB SCH ×5 (00:35→19:54)
[2021-01-23] MEDS: ALBUTEROL SULFATE 2.5 MG/0.5 ML INH NEB SOLN NEB PRN ×2 (00:45→04:47)
[2021-01-23] MEDS: SERTRALINE 100 MG TAB PO SCH (05:20)
[2021-01-23] MEDS: guaiFENesin SYRUP 200 MG/10 ML UDC PO SCH ×3 (05:20→17:17)
[2021-01-23] MEDS: AMIODARONE 200 MG TAB (PACERONE) PO SCH (05:21)
[2021-01-23] MEDS: levETIRAcetam 250MG TABLET (KEPPRA) PO SCH (05:21)
[2021-01-23] MEDS: PANTOPRAZOLE 40MG TAB (PROTONIX) PO SCH (05:21)
[2021-01-23] MEDS: VITAMIN D 1,000 INTERNATIONAL UNITS TABLET PO SCH (05:21)
[2021-01-23] MEDS: oxyCODONE 5MG TAB PO PRN ×3 (05:25→22:14)
[2021-01-23 06:00] VITALS: BP 138/56
[2021-01-23 07:35] VITALS: BP 105/57
[2021-01-23] MEDS: MIDODRINE 5 MG TAB PO SCH ×3 (07:37→17:17)
[2021-01-23] MEDS: DIMETHICONE 2% OINTMENT(VANICREAM) 70GM TUBE TOP SCH ×2 (07:38→22:14)
[2021-01-23] MEDS: (RENVELA) SEVELAMER **CARBONate** 800 MG TAB PO SCH ×3 (07:38→17:17)
[2021-01-23] MEDS: BUDESONIDE 0.5 MG/2 ML INHALATION SUSPENSION INH SCH ×2 (07:42→19:54)
[2021-01-23] MEDS: FORMOTEROL FUMARATE 20 MCG/2 ML INHALATION SOLUTION (PERFOROMIST) INH SCH ×2 (07:42→19:53)
[2021-01-23] MEDS: DARBEPOETIN 100 MCG/0.5 ML *DIALYSIS* SYRINGE (J0882) IV SCH (10:45)
--- NOTE | 2021-01-23 13:26 | IPN ---
PROGRESS NOTE DATE: 01/23/2021 Mr. Richard is seen this morning on his bedside during hemodialysis. He is feeling well and denies any new complaints. He remains on trach collar. PHYSICAL EXAMINATION: He is awake and at his baseline mentation. Temperature is 98.3 degrees Fahrenheit, heart rate 65 per minute, respiratory rate 18 per minute, blood pressure 105/50 mmHg, and oxygen saturation is 96% on 5 liters oxygen via trach collar. His head is atraumatic. Neck supple, and jugular venous distention (JVD) difficult to be assessed. Tracheostomy is in place. Heart sounds are regular and lungs with moderate bilateral air entry. Abdomen obese and nontender. Bowel sounds are normal. Extremities without any cyanosis or clubbing. Bilateral lower extremity plegia related to chronic severe spinal stenosis is unchanged. Patient did not have any new labs done today. His prior labs from January 21 have already been reviewed. PROBLEMS: 1 End-stage renal disease. Patient is on maintenance hemodialysis and currently being dialyzed. He is tolerating his dialysis well. 2. Respiratory failure. This is a chronic issue with recurrent episodes of decompensation. He has a tracheostomy in place and requires frequent suctioning. He also has required repositioning of tracheostomy due to significant tracheal granulation tissue. He is felt to be very high risk for outpatient dialysis due to fragile respiratory status. 3. Anemia. His anemia is chronic and stable. He remains on Aranesp once a week. 4. Congestive heart failure. Volume status is reasonably well compensated, and we are removing 3 liters of fluid today, which he is tolerating. 5. Hyperphosphatemia. This is a chronic issue related to dietary noncompliance and refusal of phosphate binders. We will continue to encourage him for compliance with dietary restrictions and take his binders regularly.
[2021-01-23 15:18] VITALS: O2SAT 94
--- NOTE | 2021-01-23 16:41 | IPNPDOC ---
Text Note Date of Service The patient was seen on 01/22/21. NOTE Subjective: Patient complains of back pain, asking to increase the dose of OxyContin. I explained to him that increased dose of opioids can suppress his respiratory drive. Objective: GENERAL APPEARANCE: Morbidly obese male HEENT: no scleral icterus, no JVD, EOMI, trach in place CARDIOVASCULAR: S1S2 LUNGS: Diminished lung sounds bilaterally ABDOMEN: soft & not tender w palpitation MUSCULOSKELETAL: no cyanosis, no swelling INTEGUMENT: no generalized pallor NEUROLOGICAL: cranial nerve function from 2-12 intact intact, follows commands, speech not dysarthric Assessment and plan : Patient is 50 years old male with end-stage renal diseases on dialysis, chronic hypoxic hypercapnic respiratory failure secondary to restrictive lung diseases. He recently had trach replaced on 01/01/2021. He is a hemodialysis patient, being following by nephrology. Currently pending placement Chronic hypoxic and hypercapnic respiratory failure Secondary to restrictive lung disease from obesity and mucus plugging Last of tracheostomy changed on 01/01/2021 Continue albuterol, budesonide, formoterol fumarate, and Mucinex Morbid obesity BMI 52.5 Contributing to his restrictive lung disease and complicating care Severe spinal stenosis Continue pain regimen End-stage renal disease on hemodialysis Neurology team follows him Continue with dialysis GERD Continue PPI Depression/anxiety Continue sertraline and clonazepam Seizure disorder Continue Keppra Hypotension Continue medication on dialysis days Anemia Stable Receives Aranesp at dialysis Debility Chronically bedridden Pending placement at assisted Incontinence-associated dermatitis -Wound consult on 12/25/[address] Goncalves -Wound care instructions in place. Clean with [employer] baby shampoo, vashe for 10 mins, appy interdry -Bilateral heel float boots, ABD pad under straps to protect skin on top of boot Congestive heart failure. Volume status managed by dialysis DVT prophylaxis Heparin subcutaneous VS,Fishbone, I+O VS, Fishbone, I+O Vital Signs Date Time Temp Pulse Resp B/P (MAP) Pulse Ox O2 Delivery O2 Flow Rate FiO2 01/23/21 15:18 94 Trach Collar 5.0 28 01/23/21 13:59 20 01/23/21 07:35 105/57 (73) 01/23/21 06:00 98.3 65 I&O- Last 24 Hours up to 6 AM 01/23/21 06:00 Intake Total 1785 ml Output Total 0 ml Balance 1785 ml SANTY DUGAN DO Jan 23, 2021 16:41
[2021-01-23] MEDS: PRAMIPEXOLE (MIRAPEX) 0.125 MG TAB PO SCH (22:13)
[2021-01-23] MEDS: clonazePAM 0.5 MG TAB PO PRN (22:13)
[2021-01-23] MEDS: SENOKOT S TAB PO SCH (22:13)
[2021-01-24] MEDS: ALBUTEROL SULFATE 2.5 MG/0.5 ML INH NEB SOLN NEB PRN ×2 (00:15→02:28)
[2021-01-24] MEDS: guaiFENesin SYRUP 200 MG/10 ML UDC PO SCH ×6 (05:41→23:16)
[2021-01-24 06:00] VITALS: BP 119/69
[2021-01-24] MEDS: BUDESONIDE 0.5 MG/2 ML INHALATION SUSPENSION INH SCH ×2 (07:09→19:29)
[2021-01-24] MEDS: FORMOTEROL FUMARATE 20 MCG/2 ML INHALATION SOLUTION (PERFOROMIST) INH SCH ×2 (07:09→19:30)
[2021-01-24] MEDS: ALBUTEROL SULFATE 2.5 MG/0.5 ML INH NEB SOLN NEB SCH ×4 (07:09→19:30)
[2021-01-24] MEDS: DIMETHICONE 2% OINTMENT(VANICREAM) 70GM TUBE TOP SCH ×3 (09:00→21:35)
[2021-01-24] MEDS: PANTOPRAZOLE 40MG TAB (PROTONIX) PO SCH (09:44)
[2021-01-24] MEDS: CALCITRIOL 0.25 MCG CAP (S0169) PO SCH (09:44)
[2021-01-24] MEDS: VITAMIN D 1,000 INTERNATIONAL UNITS TABLET PO SCH (09:44)
[2021-01-24] MEDS: SERTRALINE 100 MG TAB PO SCH (09:44)
[2021-01-24] MEDS: levETIRAcetam 250MG TABLET (KEPPRA) PO SCH (09:44)
[2021-01-24] MEDS: AMIODARONE 200 MG TAB (PACERONE) PO SCH (09:44)
[2021-01-24] MEDS: MIDODRINE 5 MG TAB PO SCH ×4 (09:45→18:06)
[2021-01-24] MEDS: (RENVELA) SEVELAMER **CARBONate** 800 MG TAB PO SCH ×4 (09:48→18:05)
[2021-01-24 19:30] VITALS: O2SAT 94
[2021-01-24] MEDS: oxyCODONE 5MG TAB PO PRN (21:33)
[2021-01-24] MEDS: clonazePAM 0.5 MG TAB PO PRN (21:34)
[2021-01-24] MEDS: SENOKOT S TAB PO SCH (21:34)
[2021-01-24] MEDS: PRAMIPEXOLE (MIRAPEX) 0.125 MG TAB PO SCH (21:34)
[2021-01-24 22:49] VITALS: O2SAT 98
[2021-01-25] MEDS: ALBUTEROL SULFATE 2.5 MG/0.5 ML INH NEB SOLN NEB PRN ×3 (00:27→23:15)
[2021-01-25] MEDS: VITAMIN D 1,000 INTERNATIONAL UNITS TABLET PO SCH (05:27)
[2021-01-25] MEDS: AMIODARONE 200 MG TAB (PACERONE) PO SCH (05:27)
[2021-01-25] MEDS: levETIRAcetam 250MG TABLET (KEPPRA) PO SCH (05:27)
[2021-01-25] MEDS: SERTRALINE 100 MG TAB PO SCH (05:27)
[2021-01-25] MEDS: guaiFENesin SYRUP 200 MG/10 ML UDC PO SCH ×4 (05:27→23:25)
[2021-01-25] MEDS: PANTOPRAZOLE 40MG TAB (PROTONIX) PO SCH (05:27)
[2021-01-25 06:00] VITALS: BP 166/79
[2021-01-25] MEDS: ALBUTEROL SULFATE 2.5 MG/0.5 ML INH NEB SOLN NEB SCH ×4 (07:08→20:06)
[2021-01-25] MEDS: FORMOTEROL FUMARATE 20 MCG/2 ML INHALATION SOLUTION (PERFOROMIST) INH SCH ×2 (07:08→20:05)
[2021-01-25] MEDS: BUDESONIDE 0.5 MG/2 ML INHALATION SUSPENSION INH SCH ×2 (07:08→20:05)
[2021-01-25] MEDS ORDERED: LIDOCAINE 1% SDV 5ML VIAL SC PRN (07:10)
[2021-01-25] MEDS: (RENVELA) SEVELAMER **CARBONate** 800 MG TAB PO SCH ×3 (07:59→18:00)
[2021-01-25] MEDS: MIDODRINE 5 MG TAB PO SCH ×4 (07:59→16:00)
[2021-01-25] MEDS: DIMETHICONE 2% OINTMENT(VANICREAM) 70GM TUBE TOP SCH ×2 (07:59→22:33)
[2021-01-25 08:00] VITALS: BP 141/66
[2021-01-25 16:07] VITALS: BP 136/88
--- NOTE | 2021-01-25 18:51 | IPN ---
NEPHROLOGY PROGRESS NOTE DATE: 01/25/2021 SUBJECTIVE: Patient was seen and examined at the bedside today morning during hemodialysis. He is tolerating the procedure very well. He denies any active complaints. OBJECTIVE: VITAL SIGNS: Temperature 97.6 degrees Fahrenheit, blood pressure 141/66, pulse 68, respiratory rate 20, saturating 96% on trach collar at 5 liters. INTAKE AND OUTPUT: There is no urine output recorded. Weight in the bed scale is not available. PHYSICAL EXAMINATION: GENERAL: Patient is awake, alert, oriented times three, morbidly obese, laying in bed getting dialysis done. HEAD AND NECK EXAM: Extraocular muscles intact. Pupils equally round and reactive to light. Neck is supple. He has a trach collar. CARDIOVASCULAR: S1, S2. Regular rate. Very trace edema of the bilateral lower extremities. RESPIRATORY: Chest is clear to auscultation bilaterally. Bilateral equal air entry. No rales or rhonchi. ABDOMEN: Soft. Obese. Positive bowel sounds. Nontender. MUSCULOSKELETAL: Decreased range of movement of bilateral lower extremities. Wearing waffle boots. 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 He follows commands and moves extremities. LABORATORY REVIEW: CBC is from January 21, 2021 with a hemoglobin of 11. BMP is also from January 21, 2021 with a creatinine of 7.8 and potassium 4.3. CURRENT INPATIENT MEDICATIONS: Patient's medications were all reviewed by myself. No significant change in the medications today. ASSESSMENT AND PLAN: 1. End-stage renal disease. Patient is being dialyzed today. The ultrafiltration goal is 3 liters as tolerated by his blood pressure. 2. Anemia of end-stage renal disease. Hemoglobin level is controlled with current dose of Aranesp. 3. Chronic kidney disease/mineral bone disease. Patient has hyperphosphatemia. He is noncompliant with the binders. His current dose is supposed to be 4 grams with meals. 4. Secondary hyperparathyroidism. Continue current dose of calcitriol. 5. Chronic respiratory failure. He is dependent on the trach collar. Patient frequently requires suctioning and the position of the tracheostomy and that is why it has been difficult to discharge the patient from the hospital to the long-term.
[2021-01-25] MEDS: SENOKOT S TAB PO SCH (22:31)
[2021-01-25] MEDS: clonazePAM 0.5 MG TAB PO PRN (22:31)
[2021-01-25] MEDS: PRAMIPEXOLE (MIRAPEX) 0.125 MG TAB PO SCH (22:32)
[2021-01-25] MEDS: oxyCODONE 5MG TAB PO PRN (22:32)
[2021-01-26] MEDS: ALBUTEROL SULFATE 2.5 MG/0.5 ML INH NEB SOLN NEB PRN (03:18)
[2021-01-26] MEDS: ACETAMINOPHEN TAB 650MG DOSE (2X325MG) PO PRN (04:20)
[2021-01-26] MEDS: guaiFENesin SYRUP 200 MG/10 ML UDC PO SCH ×4 (05:09→23:48)
[2021-01-26 06:00] VITALS: BP 130/60
[2021-01-26] MEDS: ALBUTEROL SULFATE 2.5 MG/0.5 ML INH NEB SOLN NEB SCH ×4 (07:16→21:17)
[2021-01-26] MEDS: BUDESONIDE 0.5 MG/2 ML INHALATION SUSPENSION INH SCH ×2 (07:16→21:17)
[2021-01-26] MEDS: FORMOTEROL FUMARATE 20 MCG/2 ML INHALATION SOLUTION (PERFOROMIST) INH SCH ×2 (07:16→21:17)
[2021-01-26] MEDS: levETIRAcetam 250MG TABLET (KEPPRA) PO SCH (08:40)
[2021-01-26] MEDS: MIDODRINE 5 MG TAB PO SCH ×3 (08:40→17:45)
[2021-01-26] MEDS: VITAMIN D 1,000 INTERNATIONAL UNITS TABLET PO SCH (08:40)
[2021-01-26] MEDS: AMIODARONE 200 MG TAB (PACERONE) PO SCH (08:40)
[2021-01-26] MEDS: (RENVELA) SEVELAMER **CARBONate** 800 MG TAB PO SCH ×3 (08:40→17:44)
[2021-01-26] MEDS: SERTRALINE 100 MG TAB PO SCH (08:40)
[2021-01-26] MEDS: DIMETHICONE 2% OINTMENT(VANICREAM) 70GM TUBE TOP SCH ×2 (08:41→20:12)
[2021-01-26] MEDS: PANTOPRAZOLE 40MG TAB (PROTONIX) PO SCH (08:41)
[2021-01-26] MEDS: CALCITRIOL 0.25 MCG CAP (S0169) PO SCH (08:41)
[2021-01-26] MEDS: oxyCODONE 5MG TAB PO PRN ×2 (12:02→20:12)
[2021-01-26] MEDS: clonazePAM 0.5 MG TAB PO PRN ×2 (12:03→20:12)
[2021-01-26] MEDS: PRAMIPEXOLE (MIRAPEX) 0.125 MG TAB PO SCH (20:12)
[2021-01-26] MEDS: SENOKOT S TAB PO SCH (20:12)
[2021-01-26 20:24] VITALS: O2SAT 93
[2021-01-26 21:19] VITALS: O2SAT 95
[2021-01-27] MEDS: ALBUTEROL SULFATE 2.5 MG/0.5 ML INH NEB SOLN NEB PRN ×2 (00:59→04:13)
[2021-01-27] MEDS: guaiFENesin SYRUP 200 MG/10 ML UDC PO SCH ×3 (05:16→18:30)
[2021-01-27 06:00] VITALS: BP 134/62
[2021-01-27] MEDS: FORMOTEROL FUMARATE 20 MCG/2 ML INHALATION SOLUTION (PERFOROMIST) INH SCH ×2 (07:27→21:41)
[2021-01-27] MEDS: ALBUTEROL SULFATE 2.5 MG/0.5 ML INH NEB SOLN NEB SCH ×4 (07:27→21:41)
[2021-01-27] MEDS: BUDESONIDE 0.5 MG/2 ML INHALATION SUSPENSION INH SCH ×2 (07:27→21:41)
[2021-01-27] MEDS: VITAMIN D 1,000 INTERNATIONAL UNITS TABLET PO SCH (10:03)
[2021-01-27] MEDS: (RENVELA) SEVELAMER **CARBONate** 800 MG TAB PO SCH ×3 (10:03→18:30)
[2021-01-27] MEDS: SERTRALINE 100 MG TAB PO SCH (10:03)
[2021-01-27] MEDS: MIDODRINE 5 MG TAB PO SCH ×3 (10:03→16:00)
[2021-01-27] MEDS: AMIODARONE 200 MG TAB (PACERONE) PO SCH (10:03)
[2021-01-27] MEDS: DIMETHICONE 2% OINTMENT(VANICREAM) 70GM TUBE TOP SCH ×2 (10:04→22:16)
[2021-01-27] MEDS: PANTOPRAZOLE 40MG TAB (PROTONIX) PO SCH (10:04)
[2021-01-27] MEDS: levETIRAcetam 250MG TABLET (KEPPRA) PO SCH (10:04)
[2021-01-27] MEDS: oxyCODONE 5MG TAB PO PRN ×2 (10:07→22:15)
[2021-01-27 21:45] VITALS: O2SAT 92
[2021-01-27] MEDS: clonazePAM 0.5 MG TAB PO PRN (22:14)
[2021-01-27] MEDS: SENOKOT S TAB PO SCH (22:15)
[2021-01-27] MEDS: PRAMIPEXOLE (MIRAPEX) 0.125 MG TAB PO SCH (22:16)
[2021-01-28] MEDS: guaiFENesin SYRUP 200 MG/10 ML UDC PO SCH ×5 (00:11→23:00)
[2021-01-28] MEDS: ALBUTEROL SULFATE 2.5 MG/0.5 ML INH NEB SOLN NEB PRN ×2 (01:36→05:29)
[2021-01-28 06:00] VITALS: BP 138/66
[2021-01-28] MEDS: VITAMIN D 1,000 INTERNATIONAL UNITS TABLET PO SCH (06:13)
[2021-01-28] MEDS: AMIODARONE 200 MG TAB (PACERONE) PO SCH (06:13)
[2021-01-28] MEDS: SERTRALINE 100 MG TAB PO SCH (06:13)
[2021-01-28] MEDS: CALCITRIOL 0.25 MCG CAP (S0169) PO SCH (06:13)
[2021-01-28] MEDS: PANTOPRAZOLE 40MG TAB (PROTONIX) PO SCH (06:14)
[2021-01-28] MEDS: levETIRAcetam 250MG TABLET (KEPPRA) PO SCH (06:14)
[2021-01-28] MEDS ORDERED: LIDOCAINE 1% SDV 5ML VIAL SC PRN (07:10)
[2021-01-28] MEDS: MIDODRINE 5 MG TAB PO SCH ×3 (07:29→16:00)
[2021-01-28] MEDS: FORMOTEROL FUMARATE 20 MCG/2 ML INHALATION SOLUTION (PERFOROMIST) INH SCH ×2 (07:46→20:00)
[2021-01-28] MEDS: BUDESONIDE 0.5 MG/2 ML INHALATION SUSPENSION INH SCH ×2 (07:46→20:00)
[2021-01-28] MEDS: (RENVELA) SEVELAMER **CARBONate** 800 MG TAB PO SCH ×3 (07:54→19:03)
[2021-01-28] MEDS: ALBUTEROL SULFATE 2.5 MG/0.5 ML INH NEB SOLN NEB SCH ×5 (08:00→20:00)
[2021-01-28 08:43] LABS: BASO # 0.1 10^3/uL (0.0-0.2); BASO % 0.5 % (0.0-1.0); EOS # 0.9 10^3/uL (0.0-0.5); HEMATOCRIT 36.7 % (42.0-52.0); HEMOGLOBIN 10.9 g/dl (13.5-17.5); LYMPH # 2.5 10^3/uL (1.5-5.0); LYMPH % 25.5 % (24.0-44.0); MEAN CORPUSCULAR HEMOGLOBIN 28.7 pg (27.0-33.0); MEAN CORPUSCULAR HGB CONC 29.7 g/dl (32.0-36.5); MEAN CORPUSCULAR VOLUME 96.6 fl (80.0-96.0); MONO # 0.5 10^3/uL (0.0-0.8); MONO % 5.2 % (2.0-8.0); NEUTROPHILS # 5.9 10^3/uL (1.5-8.5); NEUTROPHILS % 59.5 % (36.0-66.0); PLATELET COUNT, AUTOMATED 194 10^3/uL (150-450); WHITE BLOOD COUNT 9.8 10^3/uL (4.0-10.0)
[2021-01-28 09:14] LABS: ALBUMIN 2.9 GM/DL (3.2-5.2); CALCIUM LEVEL 8.8 MG/DL (8.5-10.1); CREATININE FOR GFR 7.14 MG/DL (0.70-1.30); GLOMERULAR FILTRATION RATE 8.8 (>60); PHOSPHORUS LEVEL 6.8 MG/DL (2.5-4.9); POTASSIUM SERUM 4.7 MEQ/L (3.5-5.1)
[2021-01-28] MEDS: oxyCODONE 5MG TAB PO PRN ×2 (13:01→21:35)
[2021-01-28] MEDS: DIMETHICONE 2% OINTMENT(VANICREAM) 70GM TUBE TOP SCH ×2 (13:01→21:36)
--- NOTE | 2021-01-28 20:49 | IPN ---
NEPHROLOGY PROGRESS NOTE DATE: 01/28/2021 SUBJECTIVE: Patient was seen and examined at the bedside today morning during hemodialysis procedure. He is tolerating the hemodialysis procedure well. He denies any active complaints at this time. OBJECTIVE: VITAL SIGNS: Temperature 98 degrees Fahrenheit, blood pressure 138/66, pulse 65, respiratory rate 18, saturating 94% on trach collar at 5 liters. INTAKE AND OUTPUT: There is no urine output recorded. Weight in the bed scale is not available. PHYSICAL EXAMINATION: GENERAL: Patient is awake, alert, oriented x3, morbidly obese, lying in bed getting hemodialysis done. HEAD/NECK: Extraocular muscles intact. Pupils equally round and reactive to light. Mucous membranes are moist. Neck is supple. He has a trach collar. CARDIOVASCULAR: S1, S2, regular rate. No edema of the bilateral lower extremities. RESPIRATORY: Chest is clear to auscultation bilaterally. Bilateral equal air entry. He has a trach collar in place. ABDOMEN: Obese, positive bowel sounds. MUSCULOSKELETAL: He has decreased range of movement of bilateral lower extremities. SYSTEM DEVELOPMENT MANAGER: Power is 5/5 in bilateral upper extremities. LABORATORY REVIEW: CBC showed WBC 9.8, hemoglobin 10.9, platelets 194,000. BMP showed sodium 138, potassium 4.7, chloride 103, bicarb 26, BUN 55, creatinine 7.1. Phosphorus 6.8. CURRENT INPATIENT MEDICATIONS: Patient's medications were all reviewed by myself. No significant change in the medications today as compared with last time. ASSESSMENT AND PLAN: 1. End-stage renal disease: Patient is being dialyzed today. Ultrafiltration goal is 3 liters. Volume status is optimal. 2. Anemia and end-stage renal disease: Hemoglobin is within the acceptable range with current dose of Aranesp. 3. Chronic kidney disease/mineral bone disease and hyperphosphatemia: Patient is noncompliant with the binders. Advised to take his phosphorus binders regularly with food. 4. Chronic respiratory failure: Patient has trach collar and requires frequent suctioning.
[2021-01-28] MEDS: NYSTATIN 100,000 UNITS/GM TOPICAL PWD 15 GM TOP SCH (21:34)
[2021-01-28] MEDS: clonazePAM 0.5 MG TAB PO PRN (21:35)
[2021-01-28] MEDS: SENOKOT S TAB PO SCH (21:35)
[2021-01-28] MEDS: PRAMIPEXOLE (MIRAPEX) 0.125 MG TAB PO SCH (21:35)
[2021-01-28 21:56] VITALS: O2SAT 92
[2021-01-29] MEDS: ALBUTEROL SULFATE 2.5 MG/0.5 ML INH NEB SOLN NEB PRN (00:33)
[2021-01-29] MEDS: guaiFENesin SYRUP 200 MG/10 ML UDC PO SCH ×4 (05:56→23:51)
[2021-01-29 06:00] VITALS: BP 138/87
[2021-01-29] MEDS: ALBUTEROL SULFATE 2.5 MG/0.5 ML INH NEB SOLN NEB SCH ×4 (07:12→21:23)
[2021-01-29] MEDS: FORMOTEROL FUMARATE 20 MCG/2 ML INHALATION SOLUTION (PERFOROMIST) INH SCH ×2 (07:12→21:23)
[2021-01-29] MEDS: BUDESONIDE 0.5 MG/2 ML INHALATION SUSPENSION INH SCH ×2 (07:12→21:23)
[2021-01-29] MEDS: (RENVELA) SEVELAMER **CARBONate** 800 MG TAB PO SCH ×3 (09:56→18:01)
[2021-01-29] MEDS: MIDODRINE 5 MG TAB PO SCH ×3 (09:56→16:00)
[2021-01-29] MEDS: PANTOPRAZOLE 40MG TAB (PROTONIX) PO SCH (09:57)
[2021-01-29] MEDS: DIMETHICONE 2% OINTMENT(VANICREAM) 70GM TUBE TOP SCH ×2 (09:57→20:27)
[2021-01-29] MEDS: AMIODARONE 200 MG TAB (PACERONE) PO SCH (09:57)
[2021-01-29] MEDS: levETIRAcetam 250MG TABLET (KEPPRA) PO SCH (09:57)
[2021-01-29] MEDS: VITAMIN D 1,000 INTERNATIONAL UNITS TABLET PO SCH (09:57)
[2021-01-29] MEDS: SERTRALINE 100 MG TAB PO SCH (09:57)
[2021-01-29] MEDS: NYSTATIN 100,000 UNITS/GM TOPICAL PWD 15 GM TOP SCH ×2 (09:58→20:27)
[2021-01-29] MEDS: clonazePAM 0.5 MG TAB PO PRN (20:26)
[2021-01-29] MEDS: PRAMIPEXOLE (MIRAPEX) 0.125 MG TAB PO SCH (20:26)
[2021-01-29] MEDS: oxyCODONE 5MG TAB PO PRN (20:26)
[2021-01-29] MEDS: SENOKOT S TAB PO SCH (20:26)
[2021-01-29 21:23] VITALS: O2SAT 95
[2021-01-30] MEDS: ALBUTEROL SULFATE 2.5 MG/0.5 ML INH NEB SOLN NEB PRN ×2 (01:21→05:30)
[2021-01-30] MEDS: guaiFENesin SYRUP 200 MG/10 ML UDC PO SCH ×3 (05:36→18:06)
[2021-01-30] MEDS: NYSTATIN 100,000 UNITS/GM TOPICAL PWD 15 GM TOP SCH ×2 (05:37→22:08)
[2021-01-30] MEDS: AMIODARONE 200 MG TAB (PACERONE) PO SCH (05:37)
[2021-01-30] MEDS: PANTOPRAZOLE 40MG TAB (PROTONIX) PO SCH (05:37)
[2021-01-30] MEDS: SERTRALINE 100 MG TAB PO SCH (05:37)
[2021-01-30] MEDS: levETIRAcetam 250MG TABLET (KEPPRA) PO SCH (05:37)
[2021-01-30] MEDS: VITAMIN D 1,000 INTERNATIONAL UNITS TABLET PO SCH (05:37)
[2021-01-30] MEDS: DIMETHICONE 2% OINTMENT(VANICREAM) 70GM TUBE TOP SCH ×2 (05:38→22:09)
[2021-01-30] MEDS: CALCITRIOL 0.25 MCG CAP (S0169) PO SCH (05:39)
[2021-01-30 06:00] VITALS: BP 164/76
[2021-01-30] MEDS ORDERED: LIDOCAINE 1% SDV 5ML VIAL SC PRN (07:00)
[2021-01-30] MEDS: BUDESONIDE 0.5 MG/2 ML INHALATION SUSPENSION INH SCH ×2 (07:52→20:02)
[2021-01-30] MEDS: ALBUTEROL SULFATE 2.5 MG/0.5 ML INH NEB SOLN NEB SCH ×5 (07:52→20:02)
[2021-01-30] MEDS: FORMOTEROL FUMARATE 20 MCG/2 ML INHALATION SOLUTION (PERFOROMIST) INH SCH ×2 (07:53→20:02)
[2021-01-30] MEDS: (RENVELA) SEVELAMER **CARBONate** 800 MG TAB PO SCH ×3 (08:00→18:06)
[2021-01-30] MEDS: MIDODRINE 5 MG TAB PO SCH ×3 (08:00→16:00)
[2021-01-30] MEDS: DARBEPOETIN 100 MCG/0.5 ML *DIALYSIS* SYRINGE (J0882) IV SCH (09:44)
[2021-01-30] MEDS: oxyCODONE 5MG TAB PO PRN ×2 (12:57→22:15)
[2021-01-30 20:02] VITALS: O2SAT 97
[2021-01-30] MEDS: PRAMIPEXOLE (MIRAPEX) 0.125 MG TAB PO SCH (22:07)
[2021-01-30] MEDS: SENOKOT S TAB PO SCH (22:07)
--- NOTE | 2021-01-30 22:09 | IPN ---
NEPHROLOGY PROGRESS NOTE DATE: 01/30/2021 SUBJECTIVE: Patient was seen and examined at the bedside today morning during hemodialysis procedure. He is tolerating the hemodialysis procedure well. He denies any active complaints at this time. OBJECTIVE: VITAL SIGNS: Temperature 98.3 degrees Fahrenheit, blood pressure 164/76, pulse 70, respiratory rate 18, saturating 96% on trach collar at 5 liters. INTAKE AND OUTPUT: There is no urine output recorded. Weight in the bed scale is not available. PHYSICAL EXAMINATION: GENERAL: Patient is awake, alert, oriented x3, morbidly obese, lying in bed getting hemodialysis done. HEAD/NECK: Extraocular muscles intact. Pupils equally round and reactive to light. Mucous membranes are moist. Neck is supple. He has a trach collar. CARDIOVASCULAR: S1, S2, regular rate. Trace edema of the bilateral thighs. RESPIRATORY: Chest is clear to auscultation bilaterally. Bilateral equal air entry. No rales or rhonchi. ABDOMEN: Soft, obese, positive bowel sounds. MUSCULOSKELETAL: Decreased range of movement of bilateral lower extremities and he is wearing Waffle boots. 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 Moves bilateral upper extremities and power is 5/5 in upper extremities. LABORATORY REVIEW: CBC is from 01/28/2021 and BMP is also from 01/28/2021, and those labs were reviewed. CURRENT INPATIENT MEDICATIONS: Patient's medications were all reviewed by myself. There is no significant change in the medications. ASSESSMENT AND PLAN: 1. End-stage renal disease: Patient is being dialyzed according to his regular schedule. Ultrafiltration goal is 3 liters as tolerated by his blood pressure. 2. Anemia and end-stage renal disease: Hemoglobin is stable with current dose of Aranesp. 3. Chronic kidney disease/mineral bone disease: Patient is noncompliant with his binders. Continue current dose of Renvela with meals. 4. Secondary hyperparathyroidism: Continue current dose of Calcitriol.
[2021-01-31] MEDS: ALBUTEROL SULFATE 2.5 MG/0.5 ML INH NEB SOLN NEB PRN ×2 (00:48→05:46)
[2021-01-31] MEDS: guaiFENesin SYRUP 200 MG/10 ML UDC PO SCH ×5 (00:48→23:34)
[2021-01-31 06:00] VITALS: BP 147/88
[2021-01-31] MEDS: FORMOTEROL FUMARATE 20 MCG/2 ML INHALATION SOLUTION (PERFOROMIST) INH SCH ×2 (07:53→19:42)
[2021-01-31] MEDS: BUDESONIDE 0.5 MG/2 ML INHALATION SUSPENSION INH SCH ×2 (07:53→19:42)
[2021-01-31] MEDS: ALBUTEROL SULFATE 2.5 MG/0.5 ML INH NEB SOLN NEB SCH ×4 (07:55→19:42)
[2021-01-31] MEDS: MIDODRINE 5 MG TAB PO SCH ×3 (08:00→16:00)
[2021-01-31] MEDS: (RENVELA) SEVELAMER **CARBONate** 800 MG TAB PO SCH ×3 (10:32→17:52)
[2021-01-31 11:15] VITALS: O2SAT 93
[2021-01-31] MEDS: levETIRAcetam 250MG TABLET (KEPPRA) PO SCH (12:22)
[2021-01-31] MEDS: PANTOPRAZOLE 40MG TAB (PROTONIX) PO SCH (12:22)
[2021-01-31] MEDS: SERTRALINE 100 MG TAB PO SCH (12:22)
[2021-01-31] MEDS: VITAMIN D 1,000 INTERNATIONAL UNITS TABLET PO SCH (12:22)
[2021-01-31] MEDS: AMIODARONE 200 MG TAB (PACERONE) PO SCH (12:23)
[2021-01-31] MEDS: NYSTATIN 100,000 UNITS/GM TOPICAL PWD 15 GM TOP SCH ×2 (12:23→21:45)
[2021-01-31] MEDS: DIMETHICONE 2% OINTMENT(VANICREAM) 70GM TUBE TOP SCH ×2 (12:23→21:45)
[2021-01-31] MEDS: oxyCODONE 5MG TAB PO PRN ×2 (12:24→21:46)
[2021-01-31 12:29] VITALS: BP 144/77
[2021-01-31 16:50] VITALS: BP 142/77
[2021-01-31] MEDS: SENOKOT S TAB PO SCH (21:45)
[2021-01-31] MEDS: PRAMIPEXOLE (MIRAPEX) 0.125 MG TAB PO SCH (21:45)
[2021-01-31] MEDS: clonazePAM 0.5 MG TAB PO PRN (21:45)
[2021-01-31] MEDS ORDERED: LIDOCAINE 1% SDV 5ML VIAL SC PRN (22:15)
[2021-02-01] MEDS: ALBUTEROL SULFATE 2.5 MG/0.5 ML INH NEB SOLN NEB PRN ×2 (00:47→04:43)
[2021-02-01] MEDS: guaiFENesin SYRUP 200 MG/10 ML UDC PO SCH ×5 (05:54→23:56)
[2021-02-01] MEDS: SERTRALINE 100 MG TAB PO SCH (05:54)
[2021-02-01] MEDS: PANTOPRAZOLE 40MG TAB (PROTONIX) PO SCH (05:54)
[2021-02-01] MEDS: CALCITRIOL 0.25 MCG CAP (S0169) PO SCH (05:54)
[2021-02-01] MEDS: AMIODARONE 200 MG TAB (PACERONE) PO SCH (05:54)
[2021-02-01] MEDS: levETIRAcetam 250MG TABLET (KEPPRA) PO SCH (05:55)
[2021-02-01] MEDS: VITAMIN D 1,000 INTERNATIONAL UNITS TABLET PO SCH (05:55)
[2021-02-01 06:00] VITALS: BP 154/72
[2021-02-01] MEDS: ALBUTEROL SULFATE 2.5 MG/0.5 ML INH NEB SOLN NEB SCH ×4 (07:12→19:13)
[2021-02-01] MEDS: BUDESONIDE 0.5 MG/2 ML INHALATION SUSPENSION INH SCH ×2 (07:12→19:14)
[2021-02-01] MEDS: FORMOTEROL FUMARATE 20 MCG/2 ML INHALATION SOLUTION (PERFOROMIST) INH SCH ×2 (07:12→19:13)
[2021-02-01] MEDS: MIDODRINE 5 MG TAB PO SCH ×4 (07:22→17:06)
[2021-02-01] MEDS: (RENVELA) SEVELAMER **CARBONate** 800 MG TAB PO SCH ×3 (07:56→17:24)
--- NOTE | 2021-02-01 11:59 | IPN ---
PROGRESS NOTE DATE: 02/01/2021 SUBJECTIVE: The patient was seen and examined at the bedside today morning during hemodialysis procedure. He is tolerating the hemodialysis procedure well. He denies any active complaints. OBJECTIVE: VITAL SIGNS: Temperature 98.5 degrees Fahrenheit, blood pressure 154/72, pulse 71, respiratory rate 18, saturating 95% on trach collar at 5 liters. INTAKE AND OUTPUT: No urine output recorded. Weight on the bed scale not available. GENERAL: The patient is awake, alert, and oriented x3. Morbidly obese. Laying in bed getting hemodialysis done. HEAD/NECK: Extraocular muscles intact. Pupils equally round and reactive to light. Mucous membranes are moist. Neck is supple. He has a trach collar. CARDIOVASCULAR: S1, S2. Regular rate. Trace edema of the bilateral thighs. RESPIRATORY: Chest is clear to auscultation bilaterally. Dependent on the trach collar. ABDOMEN: Obese with positive bowel sounds. MUSCULOSKELETAL: He has Waffle boots on bilateral lower extremities. Decreased range of movement of the lower extremities. RECORDS ADMINISTRATOR: No focal deficits apart from weakness and inability to walk because of obesity. Otherwise, he moves bilateral upper extremities and follows commands. LABORATORY DATA: CBC and BMP from 01/28. There are no new labs available. CURRENT INPATIENT MEDICATIONS: The patient's current medications were all reviewed by myself. There is no change in the medication. ASSESSMENT/PLAN: 1. End-stage renal disease. He is being dialyzed today. Ultrafiltration goal is 3 liters as tolerated by his blood pressure. 2. Anemia and end-stage renal disease. Continue current dose of Aranesp. Hemoglobin level is stable. 3. Chronic kidney disease, mineral bone disease, and hypophosphatemia. Continue current dose of Renvela. Increasing the dose or addition of more pills does not help because he is noncompliant. 4. Chronic hypotension. Continue current dose of midodrine.
[2021-02-01] MEDS: DIMETHICONE 2% OINTMENT(VANICREAM) 70GM TUBE TOP SCH ×2 (13:54→21:09)
[2021-02-01] MEDS: NYSTATIN 100,000 UNITS/GM TOPICAL PWD 15 GM TOP SCH ×2 (13:55→21:09)
[2021-02-01] MEDS: clonazePAM 0.5 MG TAB PO PRN (21:08)
[2021-02-01] MEDS: SENOKOT S TAB PO SCH (21:08)
[2021-02-01] MEDS: PRAMIPEXOLE (MIRAPEX) 0.125 MG TAB PO SCH (21:08)
[2021-02-01] MEDS: oxyCODONE 5MG TAB PO PRN (21:09)
[2021-02-02] MEDS: ALBUTEROL SULFATE 2.5 MG/0.5 ML INH NEB SOLN NEB PRN ×2 (00:01→04:32)
[2021-02-02 04:32] VITALS: O2SAT 93
[2021-02-02 06:00] VITALS: BP 163/79
[2021-02-02] MEDS: guaiFENesin SYRUP 200 MG/10 ML UDC PO SCH ×3 (06:04→17:12)
[2021-02-02] MEDS: BUDESONIDE 0.5 MG/2 ML INHALATION SUSPENSION INH SCH ×2 (07:09→21:23)
[2021-02-02] MEDS: FORMOTEROL FUMARATE 20 MCG/2 ML INHALATION SOLUTION (PERFOROMIST) INH SCH ×2 (07:09→21:23)
[2021-02-02] MEDS: ALBUTEROL SULFATE 2.5 MG/0.5 ML INH NEB SOLN NEB SCH ×4 (07:10→21:23)
[2021-02-02] MEDS: VITAMIN D 1,000 INTERNATIONAL UNITS TABLET PO SCH (09:46)
[2021-02-02] MEDS: (RENVELA) SEVELAMER **CARBONate** 800 MG TAB PO SCH ×3 (09:46→17:13)
[2021-02-02] MEDS: SERTRALINE 100 MG TAB PO SCH (09:47)
[2021-02-02] MEDS: AMIODARONE 200 MG TAB (PACERONE) PO SCH (09:47)
[2021-02-02] MEDS: DIMETHICONE 2% OINTMENT(VANICREAM) 70GM TUBE TOP SCH ×2 (09:47→22:38)
[2021-02-02] MEDS: MIDODRINE 5 MG TAB PO SCH ×3 (09:47→17:13)
[2021-02-02] MEDS: levETIRAcetam 250MG TABLET (KEPPRA) PO SCH (09:47)
[2021-02-02] MEDS: PANTOPRAZOLE 40MG TAB (PROTONIX) PO SCH (09:47)
[2021-02-02] MEDS: NYSTATIN 100,000 UNITS/GM TOPICAL PWD 15 GM TOP SCH ×2 (09:48→22:38)
[2021-02-02] MEDS: oxyCODONE 5MG TAB PO PRN (13:05)
[2021-02-02 21:24] VITALS: O2SAT 95
[2021-02-02] MEDS ORDERED: LORazepam 2 MG/ML VIAL IV STA (21:36)
[2021-02-02] MEDS ORDERED: MORPHINE 2 MG/ML 1ML VIAL (J2270) IV ONE (21:40)
[2021-02-02] MEDS ORDERED: LORazepam 1 MG TAB PO ONE (21:50)
--- NOTE | 2021-02-02 22:35 | REPVR ---
PROCEDURE INFORMATION: Exam: XR Chest Exam date and time: 02/02/2021 10:16 PM Age: 50 years old Clinical indication: Dyspnea TECHNIQUE: Imaging protocol: XR of the chest. Views: 1 view. COMPARISON: CR Chest, 1 view 01/11/2021 9:12 PM FINDINGS: Tubes, catheters and devices: Tracheostomy tube remains unchanged in position. Lungs: The lungs are unchanged. There are no interval infiltrates. Pleural spaces: Unremarkable. No pleural effusion. No pneumothorax. Heart/Mediastinum: The heart and mediastinum are unchanged. Bones/joints: Unremarkable. Soft tissues: There are moderately generous overlying soft tissues. IMPRESSION: Stable chest since 01/11/2021. Electronically signed by: Isaiah Escalante On 02/02/2021 22:35:53 PM
[2021-02-02] MEDS: PRAMIPEXOLE (MIRAPEX) 0.125 MG TAB PO SCH (22:37)
[2021-02-02] MEDS: SENOKOT S TAB PO SCH (22:38)
[2021-02-03 01:48] LABS: ABG BASE EXCESS -3.3 (-2.0-2.0); ABG HCO3 27.5 MEQ/L (22.0-26.0); ABG O2 SATURATION 98.3 % (95.0-99.0); ABG PARTIAL PRESSURE O2 164.4 mmHg (75.0-100.0); ABG STANDARD HCO3 21.7 MEQ/L (22.0-26.0); ABG TOTAL CO2 30.1 MEQ/L (22.0-29.0)
[2021-02-03 01:49] VITALS: O2SAT 98
[2021-02-03] MEDS: ALBUTEROL SULFATE 2.5 MG/0.5 ML INH NEB SOLN NEB PRN (01:49)
[2021-02-03 01:51] LABS: ABG PARTIAL PRESSURE CO2 83.9 mmHg (35.0-45.0); ABG pH (ARTERIAL) 7.134 UNITS (7.350-7.450)
[2021-02-03] MEDS: guaiFENesin SYRUP 200 MG/10 ML UDC PO SCH ×5 (05:49→23:43)
[2021-02-03 06:00] VITALS: BP 167/79
[2021-02-03] MEDS: FORMOTEROL FUMARATE 20 MCG/2 ML INHALATION SOLUTION (PERFOROMIST) INH SCH ×2 (07:49→20:01)
[2021-02-03] MEDS: ALBUTEROL SULFATE 2.5 MG/0.5 ML INH NEB SOLN NEB SCH ×4 (07:49→20:00)
[2021-02-03] MEDS: BUDESONIDE 0.5 MG/2 ML INHALATION SUSPENSION INH SCH ×2 (07:49→20:01)
[2021-02-03] MEDS: levETIRAcetam 250MG TABLET (KEPPRA) PO SCH (10:17)
[2021-02-03] MEDS: (RENVELA) SEVELAMER **CARBONate** 800 MG TAB PO SCH ×3 (10:17→18:01)
[2021-02-03] MEDS: VITAMIN D 1,000 INTERNATIONAL UNITS TABLET PO SCH (10:18)
[2021-02-03] MEDS: CALCITRIOL 0.25 MCG CAP (S0169) PO SCH (10:18)
[2021-02-03] MEDS: PANTOPRAZOLE 40MG TAB (PROTONIX) PO SCH (10:18)
[2021-02-03] MEDS: SERTRALINE 100 MG TAB PO SCH (10:19)
[2021-02-03] MEDS: AMIODARONE 200 MG TAB (PACERONE) PO SCH (10:20)
[2021-02-03] MEDS: MIDODRINE 5 MG TAB PO SCH ×3 (10:20→17:29)
[2021-02-03] MEDS: oxyCODONE 5MG TAB PO PRN ×2 (10:24→21:46)
[2021-02-03] MEDS: clonazePAM 0.5 MG TAB PO PRN ×2 (10:24→21:46)
[2021-02-03] MEDS: DIMETHICONE 2% OINTMENT(VANICREAM) 70GM TUBE TOP SCH ×2 (10:26→21:47)
[2021-02-03] MEDS: NYSTATIN 100,000 UNITS/GM TOPICAL PWD 15 GM TOP SCH ×2 (10:26→21:47)
[2021-02-03] MEDS: PRAMIPEXOLE (MIRAPEX) 0.125 MG TAB PO SCH (21:46)
[2021-02-03] MEDS: SENOKOT S TAB PO SCH (21:46)
[2021-02-04] MEDS: ALBUTEROL SULFATE 2.5 MG/0.5 ML INH NEB SOLN NEB PRN ×2 (01:18→23:25)
[2021-02-04] MEDS: guaiFENesin SYRUP 200 MG/10 ML UDC PO SCH ×3 (05:02→18:55)
[2021-02-04] MEDS: VITAMIN D 1,000 INTERNATIONAL UNITS TABLET PO SCH (05:02)
[2021-02-04] MEDS: levETIRAcetam 250MG TABLET (KEPPRA) PO SCH (05:03)
[2021-02-04] MEDS: PANTOPRAZOLE 40MG TAB (PROTONIX) PO SCH (05:04)
[2021-02-04] MEDS: AMIODARONE 200 MG TAB (PACERONE) PO SCH (05:04)
[2021-02-04] MEDS: SERTRALINE 100 MG TAB PO SCH (05:04)
[2021-02-04] MEDS: (RENVELA) SEVELAMER **CARBONate** 800 MG TAB PO SCH ×4 (05:05→19:28)
[2021-02-04] MEDS: DIMETHICONE 2% OINTMENT(VANICREAM) 70GM TUBE TOP SCH ×2 (05:05→21:34)
[2021-02-04] MEDS: NYSTATIN 100,000 UNITS/GM TOPICAL PWD 15 GM TOP SCH ×2 (05:05→21:35)
[2021-02-04 06:00] VITALS: BP 133/84
[2021-02-04] MEDS: MIDODRINE 5 MG TAB PO SCH ×3 (06:10→17:50)
[2021-02-04] MEDS: ALBUTEROL SULFATE 2.5 MG/0.5 ML INH NEB SOLN NEB SCH ×4 (07:17→19:03)
[2021-02-04] MEDS: FORMOTEROL FUMARATE 20 MCG/2 ML INHALATION SOLUTION (PERFOROMIST) INH SCH ×2 (07:17→19:03)
[2021-02-04] MEDS: BUDESONIDE 0.5 MG/2 ML INHALATION SUSPENSION INH SCH ×2 (07:17→19:03)
[2021-02-04] MEDS ORDERED: SODIUM CHLORIDE 0.9% 1000ML IV PRN (09:40)
[2021-02-04] MEDS ORDERED: LIDOCAINE 1% SDV 5ML VIAL SC PRN (09:40)
[2021-02-04 10:32] LABS: BASO # 0.1 10^3/uL (0.0-0.2); BASO % 0.5 % (0.0-1.0); EOS # 1.6 10^3/uL (0.0-0.5); EOS % 16.1 % (0.0-3.0); HEMATOCRIT 40.2 % (42.0-52.0); HEMOGLOBIN 11.6 g/dl (13.5-17.5); LYMPH # 1.9 10^3/uL (1.5-5.0); LYMPH % 18.6 % (24.0-44.0); MEAN CORPUSCULAR HEMOGLOBIN 28.7 pg (27.0-33.0); MEAN CORPUSCULAR HGB CONC 28.9 g/dl (32.0-36.5); MEAN CORPUSCULAR VOLUME 99.5 fl (80.0-96.0); MONO # 0.4 10^3/uL (0.0-0.8); MONO % 3.7 % (2.0-8.0); NEUTROPHILS # 6.2 10^3/uL (1.5-8.5); NEUTROPHILS % 60.6 % (36.0-66.0); PLATELET COUNT, AUTOMATED 140 10^3/uL (150-450); RED BLOOD COUNT 4.04 10^6/uL (4.30-6.10); WHITE BLOOD COUNT 10.2 10^3/uL (4.0-10.0)
[2021-02-04 10:59] LABS: CALCIUM LEVEL 8.3 MG/DL (8.5-10.1); CREATININE FOR GFR 6.87 MG/DL (0.70-1.30); GLOMERULAR FILTRATION RATE 9.2 (>60); POTASSIUM SERUM 4.8 MEQ/L (3.5-5.1)
[2021-02-04] MEDS: clonazePAM 0.5 MG TAB PO PRN ×2 (12:04→21:34)
[2021-02-04] MEDS: oxyCODONE 5MG TAB PO PRN ×2 (12:06→21:34)
[2021-02-04 19:04] VITALS: O2SAT 94
[2021-02-04 19:06] LABS: PTH INTACT 777.6 PG/ML (18.5-88.0)
--- NOTE | 2021-02-04 20:21 | IPN ---
PROGRESS NOTE DATE: 02/04/2021 SUBJECTIVE: Matthew is seen and examined this afternoon in the hemodialysis unit receiving his treatment. He denies any complaints. He is eating fast food burgers and fries (from outside the hospital). OBJECTIVE: VITAL SIGNS: Temperature 98.0, pulse 56, respiratory rate 20, blood pressure 133/84, saturating 98% on trach collar. INTAKE/OUTPUT: Dialysis goal fluid removal today is 3 liters. GENERAL: Patient is seen awake, alert, eating a burger while getting dialyzed. Morbidly obese. HEENT: Extraocular muscles are intact. Pupils are equal, round and reactive to light. He makes good eye contact. Mucous membranes are moist. Neck is supple. He has a trach collar. HEART: Sounds are regular S1, S2. There is trace edema of the bilateral thighs. RESPIRATORY: Chest is clear to auscultation bilaterally. He is dependent on trach collar. I performed anterior auscultation only. ABDOMEN: Obese and soft. There are bowel sounds. EXTREMITIES: He has Waffle boots on his lower extremities with decreased range of motion of the legs. He has a fistula in the right arm, which is patent and in use. NEUROLOGIC: He is at baseline mentation. Oriented x3. He attempts to speak by mouthing words. LABORATORY STUDIES: White count 10.2, hemoglobin 11.6, platelets 140,000. Sodium 137, potassium 4.8, bicarbonate 26. Phosphorus 6.8. INPATIENT MEDICATIONS: Reviewed by myself, and no changes are noted over the past several days. PROBLEMS: 1. End-stage renal dialysis on hemodialysis on a Wednesday, , Wednesday schedule. Patient is dialyzed today with 3 liters of fluid to be removed. His electrolytes are acceptable. His volume status is compensated. His fistula is in good use. No change is being made to the current dialysis prescription. 2. Anemia of chronic renal failure: Hemoglobin is slightly above goal at 11.6 and I am going to hold Aranesp. 3. Hypotension of hemodialysis: He is doing well with Midodrine and no changes are being made. He does have elevated readings on occasion on non-dialysis days, however prior attempts to wean off Midodrine ended poorly. 4. Secondary hyperparathyroidism of renal origin: His parathyroid hormone one month ago was greater than 1,000. His phosphorus is chronically uncontrolled. He is noncompliant with the renal diet in the hospital. He is eating a hamburger and fries while he is on dialysis this afternoon. He is ordering food from outside the hospital. I will get a repeat parathyroid hormone level. He continues on Calcitriol along with Renvela and Vitamin D.
[2021-02-04] MEDS: SENOKOT S TAB PO SCH (21:34)
[2021-02-04] MEDS: PRAMIPEXOLE (MIRAPEX) 0.125 MG TAB PO SCH (21:34)
[2021-02-05] MEDS: guaiFENesin SYRUP 200 MG/10 ML UDC PO SCH ×4 (00:30→17:16)
[2021-02-05] MEDS: ALBUTEROL SULFATE 2.5 MG/0.5 ML INH NEB SOLN NEB PRN (03:31)
[2021-02-05 06:00] VITALS: BP 127/64
[2021-02-05] MEDS: BUDESONIDE 0.5 MG/2 ML INHALATION SUSPENSION INH SCH ×2 (07:17→20:06)
[2021-02-05] MEDS: FORMOTEROL FUMARATE 20 MCG/2 ML INHALATION SOLUTION (PERFOROMIST) INH SCH ×2 (07:17→20:06)
[2021-02-05] MEDS: ALBUTEROL SULFATE 2.5 MG/0.5 ML INH NEB SOLN NEB SCH ×4 (07:17→20:00)
[2021-02-05] MEDS: MIDODRINE 5 MG TAB PO SCH ×3 (08:00→16:00)
[2021-02-05] MEDS: (RENVELA) SEVELAMER **CARBONate** 800 MG TAB PO SCH ×3 (08:00→17:17)
[2021-02-05] MEDS: PANTOPRAZOLE 40MG TAB (PROTONIX) PO SCH (09:46)
[2021-02-05] MEDS: levETIRAcetam 250MG TABLET (KEPPRA) PO SCH (09:46)
[2021-02-05] MEDS: CALCITRIOL 0.25 MCG CAP (S0169) PO SCH (09:46)
[2021-02-05] MEDS: VITAMIN D 1,000 INTERNATIONAL UNITS TABLET PO SCH (09:46)
[2021-02-05] MEDS: SERTRALINE 100 MG TAB PO SCH (09:47)
[2021-02-05] MEDS: AMIODARONE 200 MG TAB (PACERONE) PO SCH (09:47)
[2021-02-05] MEDS: NYSTATIN 100,000 UNITS/GM TOPICAL PWD 15 GM TOP SCH ×2 (09:48→21:48)
[2021-02-05] MEDS: DIMETHICONE 2% OINTMENT(VANICREAM) 70GM TUBE TOP SCH ×2 (09:48→21:48)
[2021-02-05 09:49] VITALS: BP 137/62
[2021-02-05] MEDS: oxyCODONE 5MG TAB PO PRN ×2 (09:58→21:49)
[2021-02-05] MEDS: clonazePAM 0.5 MG TAB PO PRN ×2 (09:58→21:50)
[2021-02-05 12:54] VITALS: BP 125/53
[2021-02-05 17:26] VITALS: BP 163/92
[2021-02-05] MEDS: SENOKOT S TAB PO SCH (21:50)
[2021-02-05] MEDS: PRAMIPEXOLE (MIRAPEX) 0.125 MG TAB PO SCH (21:50)
[2021-02-06] MEDS: ACETAMINOPHEN TAB 650MG DOSE (2X325MG) PO PRN (00:17)
[2021-02-06] MEDS: guaiFENesin SYRUP 200 MG/10 ML UDC PO SCH ×4 (00:17→16:49)
[2021-02-06] MEDS: ALBUTEROL SULFATE 2.5 MG/0.5 ML INH NEB SOLN NEB PRN ×2 (01:10→23:30)
[2021-02-06 06:00] VITALS: BP 113/64
[2021-02-06] MEDS: VITAMIN D 1,000 INTERNATIONAL UNITS TABLET PO SCH (06:30)
[2021-02-06] MEDS: AMIODARONE 200 MG TAB (PACERONE) PO SCH (06:30)
[2021-02-06] MEDS: levETIRAcetam 250MG TABLET (KEPPRA) PO SCH (06:30)
[2021-02-06] MEDS: NYSTATIN 100,000 UNITS/GM TOPICAL PWD 15 GM TOP SCH ×2 (06:31→21:12)
[2021-02-06] MEDS: PANTOPRAZOLE 40MG TAB (PROTONIX) PO SCH (06:31)
[2021-02-06] MEDS: SERTRALINE 100 MG TAB PO SCH (06:31)
[2021-02-06] MEDS: (RENVELA) SEVELAMER **CARBONate** 800 MG TAB PO SCH ×3 (06:32→16:48)
[2021-02-06] MEDS: DIMETHICONE 2% OINTMENT(VANICREAM) 70GM TUBE TOP SCH ×2 (06:32→21:12)
[2021-02-06] MEDS: ALBUTEROL SULFATE 2.5 MG/0.5 ML INH NEB SOLN NEB SCH ×4 (07:15→19:32)
[2021-02-06] MEDS: FORMOTEROL FUMARATE 20 MCG/2 ML INHALATION SOLUTION (PERFOROMIST) INH SCH ×2 (07:15→19:32)
[2021-02-06] MEDS: BUDESONIDE 0.5 MG/2 ML INHALATION SUSPENSION INH SCH ×2 (07:15→19:32)
[2021-02-06] MEDS: CALCITRIOL 0.25 MCG CAP (S0169) PO SCH (08:18)
[2021-02-06] MEDS: MIDODRINE 5 MG TAB PO SCH ×3 (08:18→16:00)
[2021-02-06] MEDS ORDERED: LIDOCAINE 1% SDV 5ML VIAL SC PRN (08:30)
[2021-02-06] MEDS ORDERED: SODIUM CHLORIDE 0.9% 1000ML IV PRN (08:30)
[2021-02-06] MEDS: DARBEPOETIN 100 MCG/0.5 ML *DIALYSIS* SYRINGE (J0882) IV SCH (09:50)
--- NOTE | 2021-02-06 18:08 | IPN ---
PROGRESS NOTE DATE: 02/06/2021 SUBJECTIVE: Matthew is seen and examined this morning in the hemodialysis unit receiving his treatment. He is resting comfortably and denies any complaints. Temperature 98.1, pulse 64, respiratory rate 18, blood pressure 113/64, saturating 96% on 5 liters nasal cannula. Intake yesterday was 1730. Dialysis today removed 3 liters. Weight in the bed scale is not recorded. GENERAL: Patient is seen lying in bed receiving his treatment with his legs elevated and the head of the bed flat. Extraocular muscles are intact. Tongue is moist. Trach status: Tracheostomy with trach collar. HEART: Sounds are regular, S1, S2. LUNGS: Anterior auscultation only, clear with no crackle or rale. ABDOMEN: Obese, soft, and nontender. EXTREMITIES: Show his feet are elevated and in waffle boots. There is mild dependent edema. NEUROLOGIC: He is at his baseline mentation. He attempts to communicate by mouthing words. DIALYSIS ACCESS: Fistula in the right arm is patent and in use. LABORATORY DATA: White count 10.2, hemoglobin 11.6. Sodium 137, potassium 4.8. INPATIENT MEDICATIONS: Reviewed by myself and no changes as compared to yesterday. PROBLEMS: 1. End-stage renal disease, on hemodialysis on a Wednesday, , Wednesday schedule. Patient is dialyzed today with 3 liters of fluid removed. His electrolytes are acceptable. Volume status is compensated. Fistula is in good use. No change is being made to the current dialysis prescription. 2. Hypotension of hemodialysis. It is a chronic issue. He is doing well on midodrine, and no changes are being made. He does have elevated blood pressure readings on nondialysis days; however, prior attempts to wean off midodrine have ended poorly. 3. Secondary hyperparathyroidism of renal origin. I got an updated parathyroid hormone level, which returned at 777, which is improved as compared to last month, when it was 1000, and I increased the patient's calcitriol to 5 days per week. Continue with current binders. 4. Anemia of chronic renal failure. His hemoglobin has been above goal, Aranesp has been held, and we will intermittently check his labs.
[2021-02-06 19:32] VITALS: O2SAT 96
[2021-02-06] MEDS: SENOKOT S TAB PO SCH (21:12)
[2021-02-06] MEDS: clonazePAM 0.5 MG TAB PO PRN (21:12)
[2021-02-06] MEDS: oxyCODONE 5MG TAB PO PRN (21:12)
[2021-02-06] MEDS: PRAMIPEXOLE (MIRAPEX) 0.125 MG TAB PO SCH (21:12)
[2021-02-07] MEDS: guaiFENesin SYRUP 200 MG/10 ML UDC PO SCH ×4 (01:15→17:07)
[2021-02-07] MEDS: ALBUTEROL SULFATE 2.5 MG/0.5 ML INH NEB SOLN NEB PRN (05:14)
[2021-02-07 06:00] VITALS: BP 136/72
[2021-02-07] MEDS: ALBUTEROL SULFATE 2.5 MG/0.5 ML INH NEB SOLN NEB SCH ×4 (07:27→19:14)
[2021-02-07] MEDS: FORMOTEROL FUMARATE 20 MCG/2 ML INHALATION SOLUTION (PERFOROMIST) INH SCH ×2 (07:27→19:14)
[2021-02-07] MEDS: BUDESONIDE 0.5 MG/2 ML INHALATION SUSPENSION INH SCH ×2 (07:27→19:14)
[2021-02-07] MEDS: MIDODRINE 5 MG TAB PO SCH ×3 (08:00→16:00)
[2021-02-07] MEDS: (RENVELA) SEVELAMER **CARBONate** 800 MG TAB PO SCH ×3 (08:00→17:08)
[2021-02-07] MEDS: VITAMIN D 1,000 INTERNATIONAL UNITS TABLET PO SCH (08:31)
[2021-02-07] MEDS: PANTOPRAZOLE 40MG TAB (PROTONIX) PO SCH (08:33)
[2021-02-07] MEDS: SERTRALINE 100 MG TAB PO SCH (08:33)
[2021-02-07] MEDS: CALCITRIOL 0.25 MCG CAP (S0169) PO SCH (08:33)
[2021-02-07] MEDS: oxyCODONE 5MG TAB PO PRN ×2 (08:33→21:09)
[2021-02-07] MEDS: NYSTATIN 100,000 UNITS/GM TOPICAL PWD 15 GM TOP SCH ×2 (08:34→21:08)
[2021-02-07] MEDS: DIMETHICONE 2% OINTMENT(VANICREAM) 70GM TUBE TOP SCH ×2 (08:34→21:07)
[2021-02-07] MEDS: levETIRAcetam 250MG TABLET (KEPPRA) PO SCH (08:34)
[2021-02-07] MEDS: AMIODARONE 200 MG TAB (PACERONE) PO SCH (08:35)
[2021-02-07 12:44] VITALS: BP 148/69
[2021-02-07 17:06] VITALS: BP 135/48
[2021-02-07] MEDS: clonazePAM 0.5 MG TAB PO PRN (21:08)
[2021-02-07] MEDS: SENOKOT S TAB PO SCH (21:08)
[2021-02-07] MEDS: PRAMIPEXOLE (MIRAPEX) 0.125 MG TAB PO SCH (21:08)
[2021-02-08] MEDS: ALBUTEROL SULFATE 2.5 MG/0.5 ML INH NEB SOLN NEB PRN ×3 (00:04→12:37)
[2021-02-08] MEDS: guaiFENesin SYRUP 200 MG/10 ML UDC PO SCH ×4 (00:05→17:04)
[2021-02-08] MEDS: levETIRAcetam 250MG TABLET (KEPPRA) PO SCH (06:05)
[2021-02-08] MEDS: VITAMIN D 1,000 INTERNATIONAL UNITS TABLET PO SCH (06:05)
[2021-02-08] MEDS: PANTOPRAZOLE 40MG TAB (PROTONIX) PO SCH (06:06)
[2021-02-08] MEDS: AMIODARONE 200 MG TAB (PACERONE) PO SCH (06:06)
[2021-02-08] MEDS: SERTRALINE 100 MG TAB PO SCH (06:06)
[2021-02-08 06:43] VITALS: O2SAT 94
[2021-02-08] MEDS: FORMOTEROL FUMARATE 20 MCG/2 ML INHALATION SOLUTION (PERFOROMIST) INH SCH ×2 (07:08→20:09)
[2021-02-08] MEDS: ALBUTEROL SULFATE 2.5 MG/0.5 ML INH NEB SOLN NEB SCH ×4 (07:08→20:09)
[2021-02-08] MEDS: BUDESONIDE 0.5 MG/2 ML INHALATION SUSPENSION INH SCH ×2 (07:09→20:09)
[2021-02-08] MEDS: (RENVELA) SEVELAMER **CARBONate** 800 MG TAB PO SCH ×3 (08:00→17:04)
[2021-02-08 08:15] VITALS: O2SAT 93
[2021-02-08] MEDS: MIDODRINE 5 MG TAB PO SCH ×3 (08:19→16:00)
[2021-02-08] MEDS: DIMETHICONE 2% OINTMENT(VANICREAM) 70GM TUBE TOP SCH ×2 (08:19→21:42)
[2021-02-08] MEDS: NYSTATIN 100,000 UNITS/GM TOPICAL PWD 15 GM TOP SCH ×2 (08:20→09:00)
[2021-02-08 09:18] LABS: HEMATOCRIT 34.3 % (42.0-52.0); MEAN CORPUSCULAR HEMOGLOBIN 28.5 pg (27.0-33.0); MEAN CORPUSCULAR HGB CONC 29.2 g/dl (32.0-36.5); MEAN CORPUSCULAR VOLUME 97.7 fl (80.0-96.0); PLATELET COUNT, AUTOMATED 159 10^3/uL (150-450); RED BLOOD COUNT 3.51 10^6/uL (4.30-6.10); WHITE BLOOD COUNT 7.7 10^3/uL (4.0-10.0)
[2021-02-08 09:47] LABS: ALBUMIN 2.6 GM/DL (3.2-5.2); CALCIUM LEVEL 8.6 MG/DL (8.5-10.1); CREATININE FOR GFR 5.95 MG/DL (0.70-1.30); GLOMERULAR FILTRATION RATE 10.8 (>60); PHOSPHORUS LEVEL 7.5 MG/DL (2.5-4.9); POTASSIUM SERUM 3.8 MEQ/L (3.5-5.1)
[2021-02-08 16:30] VITALS: BP 158/57
--- NOTE | 2021-02-08 16:38 | IPN ---
PROGRESS NOTE DATE: 02/08/2021 SUBJECTIVE: Mr. Richard is seen this morning during hemodialysis. He remains on trach collar and feels as usual. Denies any nausea or vomiting. He has no fever or chills. PHYSICAL EXAMINATION: VITALS: Temperature 98.7 degrees Fahrenheit, heart rate 68 per minute, respiratory rate 18 per minute, blood pressure 135/48 mmHg and oxygen saturation 99% on trach collar. HEENT: Head is atraumatic. Neck veins are difficult to be assessed. Tracheostomy is in place. LUNGS: Moderate bilateral air entry. HEART: Sounds are regular and distant. ABDOMEN: Obese and nontender. EXTREMITIES: Without cyanosis or clubbing. Right arm AV fistula is currently being used for dialysis. He has bilateral lower extremity plegia due to severe spinal stenosis. NEUROLOGIC: He is at his baseline mentation. LABORATORY STUDIES: Today's labs show WBC 7.7, hemoglobin 10.0, hematocrit 34.3, platelets 159,000. Sodium 140, potassium 3.8, CO2 26, BUN 44 and creatinine 5.95. Glucose 111 and calcium 8.6. Phosphorus 7.5. PROBLEMS: 1. End-stage renal disease: Patient is currently being dialyzed and he has tolerated his dialysis treatment very well. We initially started with 2.0 mEq potassium bath and currently changing it to 4.0 mEq as his labs have come back. 2. Anemia: His anemia did get worse. I will increase his Aranesp dose to 200 mcg for next week. No other intervention will be needed. 3. Hyperphosphatemia: This is a chronic issue related to noncompliance with dietary restrictions and phosphate binders. Patient understands that he needs to take his phosphate binders regularly, however, he has been refusing. 4. Respiratory failure: This is a chronic issue related to morbid obesity and he already has a tracheostomy with complications. His volume status remains well compensated with dialysis. 5. Hypotension: Chronic hypotension being managed with Midodrine. We will manage his volume status with dialysis. When he gets hypovolemic, then his blood pressure goes up, however, he has been doing reasonably well. DISPOSITION: Unfortunately patient is not stable for longterm placement due to his respiratory problems. He will require a longterm that can be equipped with ventilator management.
--- NOTE | 2021-02-08 20:07 | IPNPDOC ---
Date Seen The patient was seen on 02/08/21. Progress Note SUBJECTIVE: patient seen at bedside. doing well, no acute events and no new complaints. Breathing without difficulties. OBJECTIVE PHYSICAL EXAMINATION: VITAL SIGNS: Please see below. GENERAL: alert and oriented, not in distress HEENT: PERRLA CARDIOVASCULAR: RRR, normal S1, S2 RESPIRATORY: diminished breath sounds, no wheeze, no rales ABDOMINAL: soft, non tender EXTREMITIES: no cyanosis, no edema NEUROLOGICAL: CN2-12, follows commands, speech clear PSYCHOLOGICAL: calm, appropriate LABORATORY DATA, IMAGING STUDIES, MICROBIOLOGY: Please see below. DVT prophylaxis ordered?: heparin ASSESSMENT AND PLAN: Patient is 50 years old male with end-stage renal diseases on dialysis, chronic hypoxic hypercapnic respiratory failure secondary to restrictive lung diseases. He recently had trach replaced on 01/01/2021. He is a hemodialysis patient, being following by nephrology. Currently pending placement. Chronic hypoxic and hypercapnic respiratory failure Secondary to restrictive lung disease from obesity and mucus plugging Last of tracheostomy changed on 01/01/2021 Continue albuterol, budesonide, formoterol fumarate, and Mucinex Morbid obesity BMI 52.5 Contributing to his restrictive lung disease and complicating care Severe spinal stenosis Continue pain regimen End-stage renal disease on hemodialysis Neurology team follows him Continue with dialysis GERD Continue PPI Depression/anxiety Continue sertraline and clonazepam Seizure disorder Continue Keppra Hypotension Continue medication on dialysis days Anemia Stable Receives Aranesp at dialysis Debility Chronically bedridden Pending placement at [facility] complicated by need for a dialysis bed, plus capability of trach suctioning Incontinence-associated dermatitis -Wound consult on 12/25/[address] Goncalves -Wound care instructions in place. Clean with [employer]ons baby shampoo, vashe for 10 mins, appy interdry -Bilateral heel float boots, ABD pad under straps to protect skin on top of boot - discontinued nystatin powder in lieu of interdry Congestive heart failure. Volume status controlled by dialysis DVT prophylaxis Heparin subcutaneous VS, I&O, 24H, Fishbone Vital Signs/I&O Vital Signs Date Time Temp Pulse Resp B/P (MAP) Pulse Ox O2 Delivery O2 Flow Rate FiO2 02/08/21 16:30 158/57 (90) 02/08/21 08:15 5.0 28 02/08/21 08:15 93 Trach Collar 02/08/21 06:00 98.7 68 18 I&O- Last 24 Hours up to 6 AM 02/08/21 06:00 Intake Total 2145 ml Output Total 0 ml Balance 2145 ml Laboratory Data 24H LABS Laboratory Tests 2 02/08/21 08:44: Nucleated Red Blood Cells % (auto) 0.0, Anion Gap 12, Glomerular Filtration Rate 10.8L, Calcium Level 8.6, Phosphorus Level 7.5H, Albumin 2.6L CBC/BMP Laboratory Tests 02/08/21 08:44 KENYON ALCALA MD Feb 08, 2021 20:07
[2021-02-08] MEDS: SENOKOT S TAB PO SCH (21:42)
[2021-02-08] MEDS: PRAMIPEXOLE (MIRAPEX) 0.125 MG TAB PO SCH (21:42)
[2021-02-08] MEDS: oxyCODONE 5MG TAB PO PRN (21:43)
[2021-02-08] MEDS: clonazePAM 0.5 MG TAB PO PRN (21:43)
[2021-02-08 23:34] VITALS: O2SAT 98
[2021-02-09] MEDS: guaiFENesin SYRUP 200 MG/10 ML UDC PO SCH ×5 (00:13→23:10)
[2021-02-09] MEDS: ALBUTEROL SULFATE 2.5 MG/0.5 ML INH NEB SOLN NEB PRN ×3 (00:14→23:11)
[2021-02-09] MEDS: ACETAMINOPHEN TAB 650MG DOSE (2X325MG) PO PRN (03:00)
[2021-02-09 06:00] VITALS: BP 143/79
[2021-02-09] MEDS: FORMOTEROL FUMARATE 20 MCG/2 ML INHALATION SOLUTION (PERFOROMIST) INH SCH ×2 (07:30→19:45)
[2021-02-09] MEDS: BUDESONIDE 0.5 MG/2 ML INHALATION SUSPENSION INH SCH ×2 (07:31→19:45)
[2021-02-09] MEDS: ALBUTEROL SULFATE 2.5 MG/0.5 ML INH NEB SOLN NEB SCH ×4 (07:31→19:45)
[2021-02-09] MEDS: levETIRAcetam 250MG TABLET (KEPPRA) PO SCH (09:13)
[2021-02-09] MEDS: VITAMIN D 1,000 INTERNATIONAL UNITS TABLET PO SCH (09:13)
[2021-02-09] MEDS: PANTOPRAZOLE 40MG TAB (PROTONIX) PO SCH (09:13)
[2021-02-09] MEDS: AMIODARONE 200 MG TAB (PACERONE) PO SCH (09:13)
[2021-02-09] MEDS: (RENVELA) SEVELAMER **CARBONate** 800 MG TAB PO SCH ×3 (09:13→17:31)
[2021-02-09] MEDS: SERTRALINE 100 MG TAB PO SCH (09:13)
[2021-02-09] MEDS: MIDODRINE 5 MG TAB PO SCH ×3 (09:14→17:31)
[2021-02-09] MEDS: clonazePAM 0.5 MG TAB PO PRN (09:16)
[2021-02-09] MEDS: oxyCODONE 5MG TAB PO PRN ×2 (09:17→23:11)
[2021-02-09] MEDS: DIMETHICONE 2% OINTMENT(VANICREAM) 70GM TUBE TOP SCH ×2 (09:19→22:18)
[2021-02-09] MEDS: SENOKOT S TAB PO SCH (22:18)
[2021-02-09] MEDS: PRAMIPEXOLE (MIRAPEX) 0.125 MG TAB PO SCH (22:18)
[2021-02-10] MEDS: ACETAMINOPHEN TAB 650MG DOSE (2X325MG) PO PRN (00:38)
[2021-02-10] MEDS: ALBUTEROL SULFATE 2.5 MG/0.5 ML INH NEB SOLN NEB PRN (04:09)
[2021-02-10] MEDS: guaiFENesin SYRUP 200 MG/10 ML UDC PO SCH ×4 (05:54→23:37)
[2021-02-10] MEDS: clonazePAM 0.5 MG TAB PO PRN ×2 (05:54→20:38)
[2021-02-10 06:47] VITALS: BP 138/66
[2021-02-10] MEDS: FORMOTEROL FUMARATE 20 MCG/2 ML INHALATION SOLUTION (PERFOROMIST) INH SCH ×2 (07:15→20:57)
[2021-02-10] MEDS: ALBUTEROL SULFATE 2.5 MG/0.5 ML INH NEB SOLN NEB SCH ×4 (07:15→20:58)
[2021-02-10] MEDS: BUDESONIDE 0.5 MG/2 ML INHALATION SUSPENSION INH SCH ×2 (07:15→20:57)
[2021-02-10] MEDS: MIDODRINE 5 MG TAB PO SCH ×3 (08:00→17:18)
[2021-02-10] MEDS: CALCITRIOL 0.25 MCG CAP (S0169) PO SCH (08:13)
[2021-02-10] MEDS: (RENVELA) SEVELAMER **CARBONate** 800 MG TAB PO SCH ×3 (08:13→17:18)
[2021-02-10] MEDS: SERTRALINE 100 MG TAB PO SCH (08:13)
[2021-02-10] MEDS: AMIODARONE 200 MG TAB (PACERONE) PO SCH (08:13)
[2021-02-10] MEDS: PANTOPRAZOLE 40MG TAB (PROTONIX) PO SCH (08:14)
[2021-02-10] MEDS: levETIRAcetam 250MG TABLET (KEPPRA) PO SCH (08:14)
[2021-02-10] MEDS: DIMETHICONE 2% OINTMENT(VANICREAM) 70GM TUBE TOP SCH ×2 (08:14→20:39)
[2021-02-10] MEDS: VITAMIN D 1,000 INTERNATIONAL UNITS TABLET PO SCH (08:14)
[2021-02-10 17:19] VITALS: BP 145/64
[2021-02-10] MEDS: oxyCODONE 5MG TAB PO PRN (20:38)
[2021-02-10] MEDS: PRAMIPEXOLE (MIRAPEX) 0.125 MG TAB PO SCH (20:38)
[2021-02-10] MEDS: SENOKOT S TAB PO SCH (20:38)
[2021-02-10 21:00] VITALS: O2SAT 93
[2021-02-11] MEDS: ALBUTEROL SULFATE 2.5 MG/0.5 ML INH NEB SOLN NEB PRN ×2 (01:47→06:20)
[2021-02-11 06:00] VITALS: BP 138/64
[2021-02-11] MEDS: CALCITRIOL 0.25 MCG CAP (S0169) PO SCH (06:15)
[2021-02-11] MEDS: VITAMIN D 1,000 INTERNATIONAL UNITS TABLET PO SCH (06:15)
[2021-02-11] MEDS: guaiFENesin SYRUP 200 MG/10 ML UDC PO SCH ×4 (06:15→23:42)
[2021-02-11] MEDS: PANTOPRAZOLE 40MG TAB (PROTONIX) PO SCH (06:15)
[2021-02-11] MEDS: levETIRAcetam 250MG TABLET (KEPPRA) PO SCH (06:16)
[2021-02-11] MEDS: AMIODARONE 200 MG TAB (PACERONE) PO SCH (06:16)
[2021-02-11] MEDS: SERTRALINE 100 MG TAB PO SCH (06:16)
[2021-02-11] MEDS: MIDODRINE 5 MG TAB PO SCH ×3 (06:26→16:00)
[2021-02-11] MEDS: BUDESONIDE 0.5 MG/2 ML INHALATION SUSPENSION INH SCH ×2 (07:52→20:10)
[2021-02-11] MEDS: FORMOTEROL FUMARATE 20 MCG/2 ML INHALATION SOLUTION (PERFOROMIST) INH SCH ×2 (07:52→20:10)
[2021-02-11] MEDS: ALBUTEROL SULFATE 2.5 MG/0.5 ML INH NEB SOLN NEB SCH ×3 (07:52→20:00)
[2021-02-11] MEDS: (RENVELA) SEVELAMER **CARBONate** 800 MG TAB PO SCH ×3 (08:00→17:10)
[2021-02-11] MEDS: DIMETHICONE 2% OINTMENT(VANICREAM) 70GM TUBE TOP SCH ×2 (09:00→20:22)
--- NOTE | 2021-02-11 10:54 | IPNPDOC ---
Subjective General Date/Time Seen The patient was seen on 02/11/21 at 10:43. Subject Chief Complaint/History The patient is a 50-year-old male admitted with a reason for visit of Chronic Resp Failure S/P Trach Tube Replacement. SUBJECTIVE: Mr. Richard was seen and examined at the bedside in dialysis this morning. He has no complaints. No issues reported overnight. He is tolerating dialysis well. OBJECTIVE: PHYSICAL EXAMINATION: VITAL SIGNS: see below GENERAL: morbidly obese, laying flat in bed, alert and oriented, in no apparent distress HEENT: PERRL, EOMI, Oral mucous membranes are moist without lesions. NECK: Trach collar in place. The patient has no noted JVD. No adenopathy is appreciated. No thyromegaly CHEST/LUNGS: Lungs are clear bilaterally without rhonchi, rales, or wheezes. There is no subcutaneous air appreciated. There is no tenderness to the chest wall. HEART: Regular rate and rhythm. No murmurs, rubs, or gallops are appreciated. Distal pulses are 2+. No carotid bruits appreciated. ABDOMEN: obese, Soft, nontender, and nondistended. Bowel sounds are positive. No organomegaly is appreciated. No masses are appreciated. There are no peritoneal signs. There is no [place] sign. EXTREMITIES: R arm AV fistula with good bruit, No peripheral edema. . SKIN: The patients skin is warm and dry, without rashes or lesions. PSYCHIATRIC: normal mood/affect NEUROLOGIC: Bilateral boots in place, LE plegia IMAGING: No new imaging ASSESSMENT: This is a 50 YO M with history of ESRD on HD, chronic hypoxic/hypercapnic resp failure with trach currently pending prison placement. PLAN: 1. ESRD on HD T/T/S: -HD today -Will order labs for next HD treatment, 02/13 2. Anemia of ESRD: -Hgb last checked at 10.0, stable -Continue Aranesp with HD 3. Hyperphosphatemia of ESRD: -Continue phosphate binders (Renvela) with meals 4. Chronic respiratory failure, on trach collar: -Stable 5. Hypotension: BP 130s-140s systolic -Continue Midodrine 6. Secondary hyperparathyroidism of ESRD: -Calcium 8.6 -Continue Calcitriol DISPO: Pending placement Current Medications Current Medications Current Medications Medications (Trade) Dose Ordered Sig/Alicia Route PRN Reason Start Time Stop Time Status Last Admin Dose Admin Acetaminophen (Tylenol Tab) 650 mg Q4HP PRN PO PAIN / FEVER 10/10/20 21:00 02/10/21 00:38 Acetaminophen (Tylenol Tab) 650 mg Q6HP PRN PO PAIN / FEVER 06/13/20 04:45 10/10/20 20:58 DC 10/10/20 17:12 Acetylcysteine (Mucomyst 10 % (100mg/ml)) 400 mg RBID INH 10/16/20 08:00 10/28/20 09:59 DC 10/28/20 07:08 Acetylcysteine (Mucomyst 20% (200mg/ml)) 400 mg RBID INH 10/28/20 20:00 12/15/20 08:41 DC 12/14/20 19:23 Albuterol Sulfate (Proventil Neb) 2.5 mg Q2HP PRN NEB SOB/WHEEZING 10/16/20 11:30 12/21/20 08:28 DC 12/21/20 03:34 Albuterol Sulfate (Proventil Neb) 2.5 mg RQ4H PRN NEB SOB/WHEEZING 12/21/20 08:25 02/11/21 06:20 Albuterol Sulfate (Proventil Neb) 2.5 mg RQID NEB 10/16/20 12:00 02/10/21 20:58 Albuterol/ Ipratropium (Duoneb (Ipr 0.5mg/Alb 2.5mg)) 3 ml Q2H PRN NEB SHORTNESS OF BREATH 06/11/20 19:45 10/16/20 11:16 DC 10/15/20 16:52 Albuterol/ Ipratropium (Duoneb (Ipr 0.5mg/Alb 2.5mg)) 3 ml Q6H PRN NEB SOB/WHEEZING 06/11/20 19:45 06/11/20 19:45 DC Albuterol/ Ipratropium (Duoneb (Ipr 0.5mg/Alb 2.5mg)) 3 ml RQ4H NEB 07/25/20 16:00 10/16/20 11:16 DC 10/16/20 08:46 Albuterol/ Ipratropium (Duoneb (Ipr 0.5mg/Alb 2.5mg)) 3 ml RQ6H NEB 12/13/20 14:00 12/21/20 08:28 DC 12/21/20 01:03 Albuterol/ Ipratropium (Duoneb (Ipr 0.5mg/Alb 2.5mg)) 3 ml RQ6H NEB 06/11/20 20:00 07/25/20 15:32 DC 07/25/20 13:55 Alprazolam (Xanax) 0.25 mg Q6H PRN PO ANXIETY 06/11/20 19:45 10/13/20 13:17 DC 10/12/20 21:31 Amiodarone HCl (Pacerone, Cordarone) 200 mg DAILY PO 06/12/20 09:00 02/11/21 06:16 Amlodipine Besylate (Norvasc) 5 mg DAILY PO 10/06/20 09:00 10/08/20 18:19 DC 10/08/20 08:19 Amlodipine Besylate (Norvasc) 10 mg DAILY PO 08/29/20 09:00 10/05/20 18:17 DC 10/05/20 06:06 Azithromycin 500 mg/IV Miscellaneous Supplies 1 each/ Dextrose 255 ml @ 255 mls/hr Q24H IV 12/13/20 22:00 12/13/20 22:12 DC Benzonatate (Tessalon Perles) 100 mg Q8HP PRN PO COUGH 06/13/20 01:15 12/02/20 10:56 DC 06/13/20 12:18 Bisacodyl (Dulcolax Suppository) 10 mg DAILYPRN PRN [place] CONSTIPATION 06/11/20 19:45 06/15/20 16:46 DC Bisacodyl (Dulcolax Tab) 5 mg DAILY PO 06/16/20 09:00 08/04/20 17:40 DC 08/04/20 10:46 Budesonide (Pulmicort) 0.5 mg RBID INH 12/21/20 08:00 02/11/21 07:52 Calcitriol (Rocaltrol) 0.25 mcg MoTuWeThFr@0900 PO 02/06/21 09:00 02/11/21 06:15 Calcitriol (Rocaltrol) 0.25 mcg Q48H PO 12/25/20 09:00 02/05/21 10:28 DC 02/05/21 09:46 Carbamide Peroxide (Debrox) 3 drop BID 06/12/20 21:00 06/16/20 09:01 DC 06/13/20 12:17 Carbamide Peroxide (Debrox) 5 drop BID AU 01/18/21 09:00 01/21/21 21:01 DC 01/21/21 20:41 Ceftriaxone Sodium 2 gm/ Dextrose 50 ml @ 100 mls/hr Q24H IV 12/13/20 21:00 12/14/20 12:03 DC 12/13/20 20:36 Clonazepam (KlonoPIN) 0.25 mg Q6HP PRN PO anxiety 10/13/20 13:15 10/20/20 13:14 DC 10/19/20 22:24 Clonazepam (KlonoPIN) 0.25 mg Q6HP PRN PO ANXIETY 10/20/20 21:00 12/25/20 12:17 DC 12/25/20 09:08 Clonazepam (KlonoPIN) 0.5 mg Q8HP PRN PO ANXIETY 12/25/20 13:00 12/25/20 14:24 DC Clonazepam (KlonoPIN) 0.5 mg Q8HP PRN PO ANXIETY 12/25/20 18:45 02/10/21 20:38 Cod Liver Oil/ Zinc Oxide (Desitin) 1 dose BID TOP 12/24/20 21:00 12/25/20 13:48 DC 12/25/20 08:58 COVID-19 Vacc mRNA LNP-S (MOD) (PF) (Moderna Covid19 Vacc(Unapprov)) 100 mcg ASDIRECTED PRN IM COVID Vaccination 12/19/20 05:00 12/19/20 14:00 DC 12/19/20 14:00 Darbepoetin Jairo (Aranesp (Dialysis Use)) 100 mcg HD IV 01/16/21 10:00 02/08/21 16:03 DC 02/06/21 09:50 Darbepoetin Jairo (Aranesp (Dialysis Use)) 100 mcg HD IV 08/06/20 11:45 09/03/20 07:41 DC Darbepoetin Jairo (Aranesp (Dialysis Use)) 100 mcg HD IV 09/03/20 07:30 09/16/20 08:11 DC 09/10/20 09:01 Darbepoetin Jairo (Aranesp (Dialysis Use)) 200 mcg HD IV 11/19/20 12:30 01/09/21 09:57 DC 01/02/21 10:42 Darbepoetin Jairo (Aranesp (Dialysis Use)) 200 mcg HD IV 10/31/20 10:30 11/19/20 12:25 DC 11/13/20 11:56 Darbepoetin Jairo (Aranesp (Dialysis Use)) 200 mcg HD IV 01/09/21 10:00 01/16/21 09:59 DC 01/09/21 11:48 Darbepoetin Jairo (Aranesp (Dialysis Use)) 200 mcg HD IV 02/08/21 16:05 Darbepoetin Jairo (Aranesp (Dialysis Use)) 200 mcg HD IV 10/08/20 18:30 10/31/20 10:17 DC 10/24/20 10:47 Dimethicone (Vanicream Ointment) 1 dose BID TOP 11/27/20 09:00 02/10/21 20:39 Diphenhydramine HCl (Benadryl) 50 mg ONCE PRN IV ALLERGIC REACTION 12/19/20 13:40 12/19/20 23:59 DC Emollient Cream (Vanicream) to bilateral lo... DAILY TOP 08/05/20 09:00 09/09/20 11:17 DC 09/08/20 09:44 Emollient Cream (Vanicream) to bilateral lo... DAILY PRN TOP DRY SKIN 09/09/20 11:15 11/27/20 13:12 DC 09/28/20 22:12 Epinephrine HCl (Adrenalin) 0.3 mg ONCE PRN IM ALLERGIC REACTION 12/19/20 13:45 12/19/20 23:59 DC Erythromycin (Ilotycin) 1 CM RIBBON TID OU 11/20/20 16:00 11/27/20 16:00 DC 11/27/20 16:49 Fentanyl Citrate (Sublimaze) 25 mcg Q5MP PRN IV PAIN LEVEL 5-10 11/08/20 13:00 11/08/20 14:00 DC Formoterol Fumarate (Perforomist) 20 mcg RBID INH 12/21/20 08:00 02/11/21 07:52 Guaifenesin (Robitussin) 5 ml Q6H PO 07/28/20 12:00 02/11/21 06:15 Heparin Sodium (Heparin (Flush)) 200 units ASDIRECTED PRN IV SEE LABEL COMMENTS 06/11/20 19:45 06/11/20 19:49 DC Heparin Sodium (Heparin (Flush)) 200 units ASDIRECTED PRN IV SEE LABEL COMMENTS 06/11/20 19:45 06/20/20 18:55 DC 06/20/20 06:42 Heparin Sodium (Heparin (Flush)) 200 units PICC IV 06/12/20 06:00 06/11/20 19:48 DC Heparin Sodium (Heparin (Flush)) 200 units PICC IV 06/12/20 06:00 06/20/20 18:55 DC 06/20/20 06:41 Heparin Sodium (Heparin) 9,000 units ASDIRECTED XX 10/03/20 10:55 10/04/20 09:29 DC Heparin Sodium (Heparin) 9,000 units ASDIRECTED XX 09/26/20 13:04 09/27/20 07:14 DC Heparin Sodium (Heparin) Please refer to ... ASDIRECTED XX 11/05/20 08:00 11/06/20 07:59 DC Heparin Sodium (Heparin) Please refer to ... ASDIRECTED XX 11/07/20 08:00 11/08/20 07:59 DC Heparin Sodium (Heparin) Please refer to ... ASDIRECTED XX 11/09/20 08:00 11/10/20 07:59 DC Heparin Sodium (Heparin) Please refer to ... ASDIRECTED XX 11/11/20 08:30 11/12/20 08:29 DC Heparin Sodium (Heparin) Please refer to ... ASDIRECTED XX 11/13/20 12:45 11/14/20 12:44 DC Heparin Sodium (Heparin) Please refer to ... ASDIRECTED XX 11/15/20 10:00 11/16/20 09:59 DC Heparin Sodium (Heparin) Please refer to ... ASDIRECTED XX 10/28/20 12:45 10/29/20 12:44 DC Heparin Sodium (Heparin) Please refer to ... ASDIRECTED XX 10/29/20 12:00 10/30/20 11:59 DC Heparin Sodium (Heparin) Please refer to ... ASDIRECTED XX 10/30/20 22:45 10/31/20 22:44 DC Heparin Sodium (Heparin) Please refer to ... ASDIRECTED XX 11/02/20 08:00 11/03/20 07:59 DC Heparin Sodium (Heparin) Please refer to ... ASDIRECTED XX 11/25/20 08:00 11/26/20 07:59 DC Heparin Sodium (Heparin) Please refer to ... ASDIRECTED XX 12/05/20 10:15 12/06/20 10:14 DC Heparin Sodium (Heparin) Please refer to ... ASDIRECTED XX 12/07/20 09:00 12/08/20 08:59 DC Heparin Sodium (Heparin) Please refer to ... ASDIRECTED XX 12/14/20 07:00 12/15/20 06:59 DC Heparin Sodium (Heparin) Please refer to ... ASDIRECTED XX 12/17/20 07:00 12/18/20 06:59 DC Heparin Sodium (Heparin) Please refer to ... ASDIRECTED XX 12/19/20 07:00 12/20/20 06:59 DC Heparin Sodium (Heparin) Please refer to ... ASDIRECTED XX 12/21/20 09:00 12/22/20 08:59 DC Heparin Sodium (Heparin) Please refer to ... ASDIRECTED XX 11/27/20 10:30 11/28/20 10:29 DC Heparin Sodium (Heparin) Please refer to ... ASDIRECTED XX 11/30/20 07:00 12/01/20 06:59 DC Heparin Sodium (Heparin) Please refer to ... ASDIRECTED XX 12/03/20 07:45 12/04/20 07:44 DC Heparin Sodium (Heparin) Please refer to ... ASDIRECTED XX 12/23/20 14:10 12/24/20 14:09 Cancel Heparin Sodium (Heparin) Please refer to ... ASDIRECTED XX 01/04/21 05:45 01/05/21 05:44 DC Heparin Sodium (Heparin) Please refer to ... ASDIRECTED XX 01/05/21 11:10 01/06/21 11:09 DC Heparin Sodium (Heparin) Please refer to ... ASDIRECTED XX 01/07/21 07:45 01/08/21 07:44 DC Heparin Sodium (Heparin) Please refer to ... ASDIRECTED XX 01/09/21 06:00 01/10/21 05:59 DC Heparin Sodium (Heparin) Please refer to ... ASDIRECTED XX 01/10/21 20:10 01/11/21 20:09 DC Heparin Sodium (Heparin) Please refer to ... ASDIRECTED XX 12/24/20 08:00 12/25/20 07:59 DC Heparin Sodium (Heparin) Please refer to ... ASDIRECTED XX 12/26/20 08:20 12/27/20 08:19 DC Heparin Sodium (Heparin) Please refer to ... ASDIRECTED XX 02/04/21 09:40 02/05/21 09:39 DC Heparin Sodium (Heparin) Please refer to ... ASDIRECTED XX 02/06/21 08:30 02/07/21 08:29 DC Heparin Sodium (Heparin) Please refer to ... ASDIRECTED XX 01/25/21 07:10 01/26/21 07:09 DC Heparin Sodium (Heparin) Please refer to ... ASDIRECTED XX 01/28/21 07:10 01/29/21 07:09 DC Heparin Sodium (Heparin) Please refer to ... ASDIRECTED XX 01/30/21 07:00 01/31/21 06:59 DC Heparin Sodium (Heparin) Please refer to ... ASDIRECTED XX 01/31/21 22:15 02/01/21 22:14 DC Heparin Sodium (Heparin) Please refer to ... ASDIRECTED XX 09/20/20 17:45 09/21/20 17:44 DC Heparin Sodium (Heparin) Please refer to ... ASDIRECTED XX 09/24/20 07:15 09/25/20 07:14 DC Heparin Sodium (Heparin) Please refer to ... ASDIRECTED XX 10/03/20 09:30 10/03/20 10:55 DC Heparin Sodium (Heparin) Please refer to ... ASDIRECTED XX 10/12/20 08:00 10/13/20 07:59 DC Heparin Sodium (Heparin) Please refer to ... ASDIRECTED XX 10/15/20 08:00 10/16/20 07:59 DC Heparin Sodium (Heparin) Please refer to ... ASDIRECTED XX 10/17/20 10:00 10/18/20 09:59 DC Heparin Sodium (Heparin) Please refer to ... ASDIRECTED XX 10/19/20 08:00 10/20/20 07:59 DC Heparin Sodium (Heparin) Please refer to ... ASDIRECTED XX 09/26/20 07:15 09/26/20 13:04 DC Heparin Sodium (Heparin) Please refer to ... ASDIRECTED XX 09/28/20 07:45 09/29/20 07:44 DC Heparin Sodium (Heparin) dose as per volume indica... ASDIRECTED PRN IV SEE LABEL COMMENTS 11/05/20 08:00 11/05/20 11:59 DC Heparin Sodium (Heparin) dose as per volume indica... ASDIRECTED PRN IV SEE LABEL COMMENTS 11/07/20 08:00 11/07/20 20:59 DC Heparin Sodium (Heparin) dose as per volume indica... ASDIRECTED PRN IV SEE LABEL COMMENTS 11/09/20 08:00 11/09/20 21:59 DC Heparin Sodium (Heparin) dose as per volume indica... ASDIRECTED PRN IV SEE LABEL COMMENTS 11/02/20 08:00 11/02/20 20:14 DC Heparin Sodium (Heparin) dose as per volume indica... ASDIRECTED PRN IV SEE LABEL COMMENTS 11/25/20 08:00 11/25/20 20:44 DC Heparin Sodium (Heparin) dose as per volume indica... ASDIRECTED PRN IV SEE LABEL COMMENTS 09/04/20 11:30 09/05/20 08:25 DC Heparin Sodium (Heparin) dose as per volume indica... ASDIRECTED PRN IV SEE LABEL COMMENTS 09/04/20 11:30 09/05/20 08:25 DC Heparin Sodium (Porcine) (Heparin) 5,000 units BID SQ 10/23/20 09:00 01/05/21 13:45 DC 01/05/21 08:56 Heparin Sodium (Porcine) (Heparin) 5,000 units Q8H SQ 06/11/20 22:00 06/13/20 15:19 DC 06/13/20 12:17 Heparin Sodium (Porcine) (Heparin) 5,000 units Q8H SQ 07/25/20 22:00 12/29/20 22:18 DC 10/22/20 21:21 Home Med (Med Rec Complete!) ASDIRECTED XX 06/12/20 10:15 06/12/20 10:08 DC Hydralazine HCl (Apresoline) 10 mg Q6H PRN PO SBP>170 06/11/20 19:45 08/06/20 11:39 DC 06/19/20 22:01 Iron (Venofer) 100 mg HD IV 11/13/20 12:30 11/25/20 10:02 DC 11/22/20 10:43 Iron (Venofer) 100 mg HD IV 07/11/20 11:30 08/27/20 13:16 DC Lactated Ringer's 1,000 ml @ 100 mls/hr Q10H IV 11/08/20 13:00 11/08/20 14:00 DC Lactated Ringer's 1,000 ml @ 100 mls/hr Q10H IV 01/01/21 14:50 01/01/21 15:50 DC Levetiracetam (Keppra) 500 mg DAILY PO 06/12/20 09:00 02/11/21 06:16 Lidocaine (Lidoderm Patch) 1 patch DAILY TD 06/12/20 09:00 09/09/20 11:57 DC 07/13/20 06:43 Lidocaine (Lidoderm Patch) 1 patch DAILY PRN TD BACK PAIN 09/09/20 12:00 09/09/20 14:17 DC Lidocaine HCl (Lidocaine 1% Sdv) 0.5 ml ASDIRECTED PRN SC SEE LABEL COMMENTS 11/05/20 08:00 11/05/20 11:59 DC Lidocaine HCl (Lidocaine 1% Sdv) 0.5 ml ASDIRECTED PRN SC SEE LABEL COMMENTS 11/07/20 08:00 11/07/20 20:59 DC Lidocaine HCl (Lidocaine 1% Sdv) 0.5 ml ASDIRECTED PRN SC SEE LABEL COMMENTS 11/09/20 08:00 11/09/20 21:59 DC Lidocaine HCl (Lidocaine 1% Sdv) 0.5 ml ASDIRECTED PRN SC SEE LABEL COMMENTS 11/11/20 08:30 11/12/20 08:29 DC Lidocaine HCl (Lidocaine 1% Sdv) 0.5 ml ASDIRECTED PRN SC SEE LABEL COMMENTS 11/13/20 12:45 11/14/20 12:44 DC Lidocaine HCl (Lidocaine 1% Sdv) 0.5 ml ASDIRECTED PRN SC SEE LABEL COMMENTS 11/15/20 10:00 11/16/20 09:59 DC Lidocaine HCl (Lidocaine 1% Sdv) 0.5 ml ASDIRECTED PRN SC SEE LABEL COMMENTS 10/28/20 12:45 10/29/20 12:44 DC Lidocaine HCl (Lidocaine 1% Sdv) 0.5 ml ASDIRECTED PRN SC SEE LABEL COMMENTS 10/29/20 12:00 10/30/20 11:59 DC Lidocaine HCl (Lidocaine 1% Sdv) 0.5 ml ASDIRECTED PRN SC SEE LABEL COMMENTS 10/30/20 22:45 10/31/20 22:44 DC Lidocaine HCl (Lidocaine 1% Sdv) 0.5 ml ASDIRECTED PRN SC SEE LABEL COMMENTS 11/02/20 08:00 11/02/20 20:14 DC Lidocaine HCl (Lidocaine 1% Sdv) 0.5 ml ASDIRECTED PRN SC SEE LABEL COMMENTS 11/25/20 08:00 11/25/20 20:44 DC Lidocaine HCl (Lidocaine 1% Sdv) 0.5 ml ASDIRECTED PRN SC SEE LABEL COMMENTS 12/05/20 10:15 12/06/20 10:14 DC Lidocaine HCl (Lidocaine 1% Sdv) 0.5 ml ASDIRECTED PRN SC SEE LABEL COMMENTS 12/07/20 09:00 12/08/20 08:59 DC Lidocaine HCl (Lidocaine 1% Sdv) 0.5 ml ASDIRECTED PRN SC SEE LABEL COMMENTS 12/14/20 07:00 12/15/20 06:59 DC Lidocaine HCl (Lidocaine 1% Sdv) 0.5 ml ASDIRECTED PRN SC SEE LABEL COMMENTS 12/17/20 07:00 12/17/20 11:14 DC Lidocaine HCl (Lidocaine 1% Sdv) 0.5 ml ASDIRECTED PRN SC SEE LABEL COMMENTS 12/19/20 07:00 12/20/20 06:59 DC Lidocaine HCl (Lidocaine 1% Sdv) 0.5 ml ASDIRECTED PRN SC SEE LABEL COMMENTS 12/21/20 09:00 12/22/20 08:59 DC Lidocaine HCl (Lidocaine 1% Sdv) 0.5 ml ASDIRECTED PRN SC SEE LABEL COMMENTS 11/27/20 10:30 11/28/20 10:29 DC Lidocaine HCl (Lidocaine 1% Sdv) 0.5 ml ASDIRECTED PRN SC SEE LABEL COMMENTS 11/30/20 07:00 11/30/20 09:14 DC Lidocaine HCl (Lidocaine 1% Sdv) 0.5 ml ASDIRECTED PRN SC SEE LABEL COMMENTS 12/03/20 07:45 12/04/20 07:44 DC Lidocaine HCl (Lidocaine 1% Sdv) 0.5 ml ASDIRECTED PRN SC SEE LABEL COMMENTS 12/23/20 14:10 12/24/20 14:09 Cancel Lidocaine HCl (Lidocaine 1% Sdv) 0.5 ml ASDIRECTED PRN SC SEE LABEL COMMENTS 01/04/21 05:45 01/05/21 05:44 DC Lidocaine HCl (Lidocaine 1% Sdv) 0.5 ml ASDIRECTED PRN SC SEE LABEL COMMENTS 01/07/21 07:45 01/08/21 07:44 DC Lidocaine HCl (Lidocaine 1% Sdv) 0.5 ml ASDIRECTED PRN SC SEE LABEL COMMENTS 01/09/21 06:00 01/09/21 23:04 DC Lidocaine HCl (Lidocaine 1% Sdv) 0.5 ml ASDIRECTED PRN SC SEE LABEL COMMENTS 01/10/21 20:10 01/11/21 20:09 DC Lidocaine HCl (Lidocaine 1% Sdv) 0.5 ml ASDIRECTED PRN SC SEE LABEL COMMENTS 12/24/20 08:00 12/25/20 07:59 DC Lidocaine HCl (Lidocaine 1% Sdv) 0.5 ml ASDIRECTED PRN SC SEE LABEL COMMENTS 12/26/20 08:20 12/27/20 08:19 DC Lidocaine HCl (Lidocaine 1% Sdv) 0.5 ml ASDIRECTED PRN SC SEE LABEL COMMENTS 02/04/21 09:40 02/05/21 09:39 DC Lidocaine HCl (Lidocaine 1% Sdv) 0.5 ml ASDIRECTED PRN SC SEE LABEL COMMENTS 02/06/21 08:30 02/07/21 08:29 DC Lidocaine HCl (Lidocaine 1% Sdv) 0.5 ml ASDIRECTED PRN SC SEE LABEL COMMENTS 01/25/21 07:10 01/26/21 07:09 DC Lidocaine HCl (Lidocaine 1% Sdv) 0.5 ml ASDIRECTED PRN SC SEE LABEL COMMENTS 01/28/21 07:10 01/29/21 07:09 DC Lidocaine HCl (Lidocaine 1% Sdv) 0.5 ml ASDIRECTED PRN SC SEE LABEL COMMENTS 01/30/21 07:00 01/31/21 06:59 DC Lidocaine HCl (Lidocaine 1% Sdv) 0.5 ml ASDIRECTED PRN SC SEE LABEL COMMENTS 01/31/21 22:15 02/01/21 22:14 DC Lidocaine HCl (Lidocaine 1% Sdv) 0.5 ml ASDIRECTED PRN SC SEE LABEL COMMENTS 09/04/20 11:30 09/05/20 08:26 DC Lidocaine HCl (Lidocaine 1% Sdv) 0.5 ml ASDIRECTED PRN SC SEE LABEL COMMENTS 09/04/20 11:30 09/05/20 08:26 DC Lidocaine HCl (Lidocaine 1% Sdv) 0.5 ml ASDIRECTED PRN SC SEE LABEL COMMENTS 09/07/20 07:30 09/08/20 07:29 DC Lidocaine HCl (Lidocaine 1% Sdv) 0.5 ml ASDIRECTED PRN SC SEE LABEL COMMENTS 09/07/20 07:30 09/08/20 07:29 DC Lidocaine HCl (Lidocaine 1% Sdv) 0.5 ml ASDIRECTED PRN SC SEE LABEL COMMENTS 09/21/20 08:00 09/21/20 17:44 DC Lidocaine HCl (Lidocaine 1% Sdv) 0.5 ml ASDIRECTED PRN SC SEE LABEL COMMENTS 09/24/20 07:15 09/25/20 07:14 DC Lidocaine HCl (Lidocaine 1% Sdv) 0.5 ml ASDIRECTED PRN SC SEE LABEL COMMENTS 10/03/20 09:30 10/04/20 09:29 DC Lidocaine HCl (Lidocaine 1% Sdv) 0.5 ml ASDIRECTED PRN SC SEE LABEL COMMENTS 10/12/20 08:00 10/13/20 07:59 DC Lidocaine HCl (Lidocaine 1% Sdv) 0.5 ml ASDIRECTED PRN SC SEE LABEL COMMENTS 10/15/20 08:00 10/15/20 20:59 DC Lidocaine HCl (Lidocaine 1% Sdv) 0.5 ml ASDIRECTED PRN SC SEE LABEL COMMENTS 10/17/20 10:00 10/18/20 09:59 DC Lidocaine HCl (Lidocaine 1% Sdv) 0.5 ml ASDIRECTED PRN SC SEE LABEL COMMENTS 10/19/20 08:00 10/19/20 12:59 DC Lidocaine HCl (Lidocaine 1% Sdv) 0.5 ml ASDIRECTED PRN SC SEE LABEL COMMENTS 09/26/20 07:15 09/27/20 07:14 DC Lidocaine HCl (Lidocaine 1% Sdv) 0.5 ml ASDIRECTED PRN SC SEE LABEL COMMENTS 10/01/20 10:30 10/02/20 10:29 DC Lorazepam (Ativan) 1 mg STAT STAT IV 02/02/21 21:36 02/02/21 21:37 Cancel Methylprednisolone (SOLUmedrol) 60 mg Q12H IV 12/22/20 18:00 12/23/20 11:30 DC 12/23/20 06:23 Methylprednisolone (SOLUmedrol) 60 mg Q6H IV 12/20/20 18:00 12/21/20 10:16 DC 12/21/20 05:59 Methylprednisolone (SOLUmedrol) 60 mg Q8H IV 12/21/20 14:00 12/22/20 07:39 DC 12/22/20 06:21 Midodrine (Proamatine) 5 mg MoWeFr@0900 PO 11/20/20 09:00 12/02/20 09:00 DC 11/30/20 08:29 Midodrine (Proamatine) 5 mg TuThSa@0900 PO 11/05/20 09:00 11/19/20 10:13 DC 11/18/20 08:24 Midodrine (Proamatine) 5 mg TuThSa@0900 PO 12/03/20 09:00 12/25/20 10:04 DC 12/24/20 07:58 Midodrine (Proamatine) 10 mg 08,12,16 PO 12/31/20 12:00 02/09/21 17:31 Midodrine (Proamatine) 10 mg ASDIRECTED PO 06/11/20 20:30 08/31/20 21:12 DC 08/10/20 06:14 Midodrine (Proamatine) 10 mg HD PO 06/11/20 21:00 06/11/20 20:22 DC Miscellaneous (Unresolved Clarification Entry) SEE LABEL COMMENTS DAILY XX 11/24/20 09:00 11/24/20 12:58 DC Miscellaneous (Unresolved Clarification Entry) SEE LABEL COMMENTS DAILY XX 10/29/20 09:00 10/29/20 09:54 DC Miscellaneous (Unresolved Clarification Entry) SEE LABEL COMMENTS DAILY XX 11/01/20 09:00 11/05/20 08:43 DC 11/04/20 08:23 Miscellaneous (Unresolved Clarification Entry) SEE LABEL COMMENTS DAILY XX 01/12/21 09:00 01/12/21 15:30 DC Miscellaneous (Unresolved Clarification Entry) SEE LABEL COMMENTS DAILY XX 02/07/21 09:00 02/07/21 14:40 DC 02/07/21 09:00 Miscellaneous (Unresolved Clarification Entry) SEE LABEL COMMENTS DAILY XX 06/24/20 09:00 06/25/20 12:54 DC Miscellaneous (Unresolved Clarification Entry) SEE LABEL COMMENTS DAILY XX 09/29/20 09:00 09/29/20 12:49 DC Non-Formulary Medication ( See Comment Field Below ) CHECK TO SEE IF THE PATIENT... DAILY@0800 XX 06/27/20 08:00 09/01/20 18:17 DC 08/10/20 06:36 Non-Formulary Medication ( See Comment Field Below ) CHECK TO SEE IF THE PATIENT... DAILY@1600 XX 12/17/20 16:00 12/22/20 23:59 DC 12/21/20 15:21 Non-Formulary Medication ( See Comment Field Below ) REMOVE LIDODERM PATCH DAILY@21 XX 06/11/20 21:00 09/09/20 11:57 DC 09/04/20 21:00 Non-Formulary Medication ( See Comment Field Below ) REMOVE LIDODERM PATCH DAILY@21 PRN XX BACK PAIN 09/09/20 12:00 09/09/20 14:17 DC Nystatin (Mycostatin Powder, Nystop) Apply to groin folds BIDP PRN TOP REDNESS/IRRITATION 08/27/20 01:00 09/25/20 01:24 DC Nystatin (Mycostatin Powder, Nystop) apply to groin BID TOP 01/28/21 21:00 02/08/21 16:36 DC 02/07/21 21:08 Nystatin (Mycostatin Powder, Nystop) apply to groin area daily DAILY TOP 11/25/20 09:00 12/25/20 13:48 DC 12/25/20 08:58 Ondansetron HCl (ZOFRAN INJection) 4 mg Q4HP PRN IV NAUSEA OR VOMITING 11/08/20 13:00 11/08/20 14:00 DC Ondansetron HCl (ZOFRAN INJection) 4 mg Q4HP PRN IV NAUSEA OR VOMITING 01/01/21 14:50 01/01/21 15:50 DC Ondansetron HCl (ZOFRAN INJection) 4 mg Q4HP PRN IV NAUSEA OR VOMITING 01/11/21 20:55 01/12/21 20:54 DC Ondansetron HCl (Zofran) 4 mg Q6HP PRN PO NAUSEA OR VOMITING 07/08/20 12:45 01/15/21 04:19 Oxycodone HCl (Roxicodone, Oxyir) 10 mg Q4H PRN PO PAIN 06/11/20 19:45 10/19/20 15:15 DC 10/18/20 22:28 Oxycodone HCl (Roxicodone, Oxyir) 10 mg Q4HP PRN PO SEVERE PAIN (PS 8-10) 10/19/20 22:15 10/20/20 10:15 DC 10/19/20 22:23 Oxycodone HCl (Roxicodone, Oxyir) 10 mg Q4HP PRN PO SEVERE PAIN (PS 8-10) 10/20/20 21:00 10/22/20 22:18 DC 10/22/20 21:20 Oxycodone HCl (Roxicodone, Oxyir) 10 mg Q8HP PRN PO SEVERE PAIN (PS 8-10) 10/22/20 22:30 02/10/21 20:38 Pantoprazole Sodium (Protonix) 40 mg DAILY PO 06/12/20 09:00 02/11/21 06:15 Phenol (Chloraseptic Silas) 1 spray Q2HP PRN MT SORE THROAT 10/09/20 08:45 01/14/21 06:37 Piperacillin Sod/ Tazobactam Sod 2.25 gm/Dextrose 50 ml @ 100 mls/hr Q8H IV 12/14/20 17:00 12/22/20 23:59 DC 12/22/20 17:18 Piperacillin Sod/ Tazobactam Sod 3.375 gm/Dextrose 50 ml @ 50 mls/hr Q6H IV 12/14/20 12:15 UNV Polyethylene Glycol (Miralax) 1 pkt DAILY PRN PO CONSTIPATION 06/11/20 19:45 06/15/20 16:45 DC Polyethylene Glycol (Miralax) 1 pkt DAILYPRN PRN PO CONSTIPATION 08/04/20 17:45 Polymyxin/ Trimethoprim Sulfate (Polytrim Ophth Drops) 1 drop 6XD OU 08/03/20 15:00 08/10/20 12:00 DC 08/10/20 06:13 Pramipexole Dihydrochloride (Mirapex) 0.125 mg QHS PO 06/11/20 21:00 02/10/21 20:38 Prednisone (Deltasone) Taper DAILY PO 12/24/20 09:00 01/02/21 08:59 DC 01/01/21 08:57 Prednisone (Deltasone) 30 mg Taper DAILY PO 12/21/20 09:00 12/20/20 18:32 DC Prednisone (Deltasone) 40 mg DAILY PO 12/14/20 09:00 12/20/20 13:37 DC 12/20/20 09:25 Salmeterol Xinafoate/ Fluticasone (Advair Hfa 115/ ) 2 puff RBID INH 12/13/20 08:00 12/21/20 08:28 DC 12/20/20 20:12 Senna/Docusate Sodium (Senokot S) 2 tab QHS PO 08/04/20 21:00 02/10/21 20:38 Sertraline HCl (Zoloft) 100 mg DAILY PO 06/12/20 09:00 09/30/20 11:35 DC 09/30/20 09:50 Sertraline HCl (Zoloft) 150 mg DAILY PO 10/01/20 09:00 10/13/20 13:17 DC 10/13/20 10:21 Sertraline HCl (Zoloft) 200 mg DAILY PO 10/14/20 09:00 02/11/21 06:16 Sevelamer Carbonate (Renvela) 2,400 mg WM PO 06/12/20 08:00 11/15/20 16:12 DC 11/15/20 13:15 Sevelamer Carbonate (Renvela) 4,000 mg WM PO 11/15/20 18:00 02/10/21 17:18 Sodium Chloride (Nacl 0.9%) 200 ml ASDIRECTED PRN IV SEE LABEL COMMENTS 11/07/20 08:00 11/08/20 07:59 DC Sodium Chloride (Nacl 0.9%) 200 ml ASDIRECTED PRN IV SEE LABEL COMMENTS 11/09/20 08:00 11/10/20 07:59 DC Sodium Chloride (Nacl 0.9%) 200 ml ASDIRECTED PRN IV SEE LABEL COMMENTS 11/11/20 08:30 11/12/20 08:29 DC Sodium Chloride (Nacl 0.9%) 200 ml ASDIRECTED PRN IV SEE LABEL COMMENTS 11/13/20 12:45 11/14/20 12:44 DC Sodium Chloride (Nacl 0.9%) 200 ml ASDIRECTED PRN IV SEE LABEL COMMENTS 11/15/20 10:00 11/16/20 09:59 DC Sodium Chloride (Nacl 0.9%) 200 ml ASDIRECTED PRN IV SEE LABEL COMMENTS 10/28/20 12:45 10/29/20 12:44 DC Sodium Chloride (Nacl 0.9%) 200 ml ASDIRECTED PRN IV SEE LABEL COMMENTS 10/29/20 12:00 10/30/20 11:59 DC Sodium Chloride (Nacl 0.9%) 200 ml ASDIRECTED PRN IV SEE LABEL COMMENTS 10/30/20 22:45 10/31/20 22:44 DC Sodium Chloride (Nacl 0.9%) 200 ml ASDIRECTED PRN IV SEE LABEL COMMENTS 12/05/20 10:15 12/06/20 10:14 DC Sodium Chloride (Nacl 0.9%) 200 ml ASDIRECTED PRN IV SEE LABEL COMMENTS 12/07/20 09:00 12/08/20 08:59 DC Sodium Chloride (Nacl 0.9%) 200 ml ASDIRECTED PRN IV SEE LABEL COMMENTS 12/14/20 07:00 12/15/20 06:59 DC Sodium Chloride (Nacl 0.9%) 200 ml ASDIRECTED PRN IV SEE LABEL COMMENTS 12/21/20 09:00 12/22/20 08:59 DC Sodium Chloride (Nacl 0.9%) 200 ml ASDIRECTED PRN IV SEE LABEL COMMENTS 12/03/20 07:45 12/04/20 07:44 DC Sodium Chloride (Nacl 0.9%) 200 ml ASDIRECTED PRN IV SEE LABEL COMMENTS 12/23/20 14:10 12/24/20 14:09 Cancel Sodium Chloride (Nacl 0.9%) 200 ml ASDIRECTED PRN IV SEE LABEL COMMENTS 01/04/21 05:45 01/05/21 05:44 DC Sodium Chloride (Nacl 0.9%) 200 ml ASDIRECTED PRN IV SEE LABEL COMMENTS 12/24/20 08:00 12/25/20 07:59 DC Sodium Chloride (Nacl 0.9%) 200 ml ASDIRECTED PRN IV SEE LABEL COMMENTS 12/26/20 08:20 12/27/20 08:19 DC Sodium Chloride (Nacl 0.9%) 200 ml ASDIRECTED PRN IV SEE LABEL COMMENTS 02/04/21 09:40 02/05/21 09:39 DC Sodium Chloride (Nacl 0.9%) 200 ml ASDIRECTED PRN IV SEE LABEL COMMENTS 02/06/21 08:30 02/07/21 08:29 DC Sodium Chloride (Nacl 0.9%) 200 ml ASDIRECTED PRN IV SEE LABEL COMMENTS 09/03/20 07:30 09/05/20 08:26 DC Sodium Chloride (Nacl 0.9%) 200 ml ASDIRECTED PRN IV SEE LABEL COMMENTS 09/04/20 11:30 09/10/20 10:39 DC Sodium Chloride (Nacl 0.9%) 200 ml ASDIRECTED PRN IV SEE LABEL COMMENTS 09/07/20 07:30 09/10/20 10:39 DC Sodium Chloride (Nacl 0.9%) 200 ml ASDIRECTED PRN IV SEE LABEL COMMENTS 09/12/20 08:00 09/24/20 08:57 DC Sodium Chloride (Nacl 0.9%) 200 ml ASDIRECTED PRN IV SEE LABEL COMMENTS 09/24/20 07:15 09/25/20 07:14 DC Sodium Chloride (Nacl 0.9%) 200 ml ASDIRECTED PRN IV SEE LABEL COMMENTS 10/03/20 09:30 10/04/20 09:29 DC Sodium Chloride (Nacl 0.9%) 200 ml ASDIRECTED PRN IV SEE LABEL COMMENTS 10/12/20 08:00 10/13/20 07:59 DC Sodium Chloride (Nacl 0.9%) 200 ml ASDIRECTED PRN IV SEE LABEL COMMENTS 10/15/20 08:00 10/16/20 07:59 DC Sodium Chloride (Nacl 0.9%) 200 ml ASDIRECTED PRN IV SEE LABEL COMMENTS 10/17/20 10:00 10/18/20 09:59 DC Sodium Chloride (Nacl 0.9%) 200 ml ASDIRECTED PRN IV SEE LABEL COMMENTS 09/26/20 07:15 09/27/20 07:14 DC Sodium Chloride (Nacl 0.9%) 200 ml ASDIRECTED PRN IV SEE LABEL COMMENTS 09/28/20 07:45 09/29/20 07:44 DC Sodium Chloride (Nacl 0.9%) 200 ml ASDIRECTED PRN IV SEE LABEL COMMENTS 10/01/20 10:30 10/02/20 10:29 DC Sodium Chloride (Saline Lock Flush) 10 ml ASDIRECTED PRN IV SEE LABEL COMMENTS 06/11/20 19:45 06/11/20 19:50 DC Sodium Chloride (Saline Lock Flush) 10 ml ASDIRECTED PRN IV SEE LABEL COMMENTS 06/11/20 19:45 06/20/20 18:55 DC 06/20/20 06:41 Sodium Chloride (Saline Lock Flush) 10 ml PICC IV 06/12/20 06:00 06/11/20 19:49 DC Sodium Chloride (Saline Lock Flush) 10 ml PICC IV 06/12/20 06:00 06/20/20 18:55 DC 06/20/20 06:41 Sucroferric Oxyhydroxide (Velphoro) 500 mg WM PO 11/11/20 18:00 11/15/20 16:12 DC 11/12/20 17:52 Sucroferric Oxyhydroxide (Velphoro) 500 mg WM PO 07/11/20 12:30 09/21/20 12:33 DC 09/15/20 18:12 Vancomycin HCl 1000 mg/IV Miscellaneous Supplies 1 each/ Dextrose 270 ml @ 270 mls/hr HD IV 12/17/20 09:00 12/20/20 10:00 DC 12/19/20 15:55 Vancomycin HCl 1000 mg/IV Miscellaneous Supplies 1 each/ Dextrose 270 ml @ 270 mls/hr Q12H IV 12/14/20 12:00 UNV Vancomycin HCl 1000 mg/IV Miscellaneous Supplies 1 each/ Sodium Chloride 270 ml @ 270 mls/hr HD IV 12/20/20 10:05 12/22/20 23:59 DC 12/21/20 15:19 Vitamin D (Vitamin D) 2,000 units DAILY PO 12/03/20 09:00 02/11/21 06:15 Zinc Oxide (Boudreauxs Butt Paste) 1 dose BID TOP 11/28/20 09:00 12/24/20 16:02 DC 12/24/20 08:00 Allergies Coded Allergies: moxifloxacin (Verified Allergy, Intermediate, RASH, 12/25/19) codeine (Verified Allergy, Unknown, 12/25/19) valsartan (Verified Allergy, Unknown, 12/25/19) VS,Fishbone, I+O VS, Fishbone, I+O Vital Signs Date Time Temp Pulse Resp B/P (MAP) Pulse Ox O2 Delivery O2 Flow Rate FiO2 02/11/21 06:21 64 02/11/21 06:00 98.2 18 138/64 (88) 96 Trach Collar 5.0 28 I&O- Last 24 Hours up to 6 AM 02/11/21 06:00 Intake Total 1630 ml Output Total 0 ml Balance 1630 ml GME ATTESTATION GME ATTESTATION My faculty preceptor for this patient encounter was physically present during the encounter and was fully available. All aspects of the patient interview, examination, medical decision making process, and medical care plan development were reviewed and approved by the faculty preceptor. The faculty preceptor is aware and concurs with the plan as stated in the body of this note and will attest to such by his/her cosignature. ANKIT MULLEN MD Feb 11, 2021 10:53
[2021-02-11] MEDS: SENOKOT S TAB PO SCH (20:21)
[2021-02-11] MEDS: clonazePAM 0.5 MG TAB PO PRN (20:21)
[2021-02-11] MEDS: PRAMIPEXOLE (MIRAPEX) 0.125 MG TAB PO SCH (20:21)
[2021-02-11] MEDS: ACETAMINOPHEN TAB 650MG DOSE (2X325MG) PO PRN (20:21)
--- NOTE | 2021-02-11 20:37 | IPNPDOC ---
Date Seen The patient was seen on 02/11/21. Progress Note SUBJECTIVE: Patient complains of left lower tooth pain with chewing, tooth appears broken but no tenderness to palpation of jaw when examined. Has needed teeth pulled before. Patient denied chest pain, n/v/d, fevers, chills. OBJECTIVE: PHYSICAL EXAMINATION: VITAL SIGNS: please see below General: NAD, comfortable HEENT: PERRLA, EOMI, sclerae clear, poor dental hygeine. No tenderness to jaw Neck: supple, normal ROM, no JVD. Trach with collar Respiratory: lungs CTAB, no wheeze, no rales, no crackles CVS: RRR, normal S1, S2, no murmurs Abdo: soft, no masses, no hepatosplenomegaly, BS+, no rebound tenderness Extremities: trace edema MSK: no joint deformities, normal ROM Neuro: no focal neuro deficits, moving all 4 extremities, CN2-12 intact. Psych: calm, cooperative, AAO x 3 LABORATORY DATA, IMAGING STUDIES, MICROBIOLOGY: Please see below. CXR 12/31/20: Cardiomegaly and elements of pulmonary vascular congestion/interstitial edema cannot be excluded along with possible subtle atelectasis. ASSESSMENT: Mr. Richard is a 50-year-old male with prolonged hospital course, acute on chornic hypoxic and hypercapnic respiratory failure 2/2 to restrictive lung disease from obesity, mucous plugging, difficulty in being placed due to need HD chair, respiratory needs. PLAN: Tooth pain -Hx of requiring teeth pulled -States he had a dentist he followed with regularly at the residential but has not been back since being in hospital -Will d/w with [facility] to see how to arrange dental appointment Acute on chronic hypoxic and hypercapnic respiratory failure 2/2 to restrictive lung disease from obesity, mucous plugging -Changed tracheostomy tube on 01/01/21, stable -C/w albuterol ATC And PRN, pulmicort -Placement is unknown at this time due to some issues with patient not being able to suction himself. Morbid obesity -BMI 52.5 -Contributing to his restrictive lung disease and complicating care Severe spinal stenosis -Continue pain regimen Incontinence-associated dermatitis/moisture associated skin damage - wound consult provided by Dr. Goncalves on 12/25/20 - wound care instructions are ordered. Clean with [employer] baby shampoo, vashe for 10 min, appy interdry. - bilateral heel float boots, ABD pad under straps to protect skin on top of boot End-stage renal disease on hemodialysis/secondary hyperparathyroidism -Continue with dialysis Tue,Thus, Sat - PTH > 1000. -C/w calcitriol and sevelamer. -Nephrology following GERD -Continue PPI Depression/anxiety -Stable, assessed by psych this admission -Continue sertraline and clonazepam Paroxysmal atrial fibrillation -Continue amiodarone Seizure disorder -Stable -Continue Keppra hx of Hypotension -Continue medication on dialysis days - has had midodrine with dialysis but has recently been hypertensive - will communicate to nephrology to perhaps use as prn Anemia -Stable -Receives Aranesp at dialysis Debility -Chronically bedridden -Pending placement at residential Anxiety - C/w clonazepam to 0.5 mg TID prn DVT prophylaxis -Heparin subcutaneous DISPOSITION: ALC status. Pending placement. Will tb with PFS about dental follow up. VS, I&O, 24H, Fishbone Vital Signs/I&O Vital Signs Date Time Temp Pulse Resp B/P (MAP) Pulse Ox O2 Delivery O2 Flow Rate FiO2 02/11/21 13:30 5.0 28 02/11/21 06:21 64 02/11/21 06:00 98.2 18 138/64 (88) 96 Trach Collar I&O- Last 24 Hours up to 6 AM 02/11/21 06:00 Intake Total 1630 ml Output Total 0 ml Balance 1630 ml Claudette Padron MD Feb 11, 2021 20:37
[2021-02-11 21:00] VITALS: O2SAT 96
[2021-02-11] MEDS: oxyCODONE 5MG TAB PO PRN (23:43)
[2021-02-12] MEDS: ALBUTEROL SULFATE 2.5 MG/0.5 ML INH NEB SOLN NEB PRN (01:39)
[2021-02-12] MEDS: guaiFENesin SYRUP 200 MG/10 ML UDC PO SCH ×3 (05:20→18:27)
[2021-02-12] MEDS: ACETAMINOPHEN TAB 650MG DOSE (2X325MG) PO PRN (05:20)
[2021-02-12 06:00] VITALS: BP 164/67
[2021-02-12] MEDS: FORMOTEROL FUMARATE 20 MCG/2 ML INHALATION SOLUTION (PERFOROMIST) INH SCH ×2 (07:20→21:30)
[2021-02-12] MEDS: BUDESONIDE 0.5 MG/2 ML INHALATION SUSPENSION INH SCH ×2 (07:20→21:30)
[2021-02-12] MEDS: ALBUTEROL SULFATE 2.5 MG/0.5 ML INH NEB SOLN NEB SCH ×4 (07:21→21:30)
[2021-02-12] MEDS: MIDODRINE 5 MG TAB PO SCH ×3 (08:00→16:00)
[2021-02-12 09:00] VITALS: O2SAT 92
[2021-02-12] MEDS: CALCITRIOL 0.25 MCG CAP (S0169) PO SCH (09:09)
[2021-02-12] MEDS: SERTRALINE 100 MG TAB PO SCH (09:09)
[2021-02-12] MEDS: levETIRAcetam 250MG TABLET (KEPPRA) PO SCH (09:09)
[2021-02-12] MEDS: (RENVELA) SEVELAMER **CARBONate** 800 MG TAB PO SCH ×3 (09:10→18:00)
[2021-02-12] MEDS: AMIODARONE 200 MG TAB (PACERONE) PO SCH (09:10)
[2021-02-12] MEDS: PANTOPRAZOLE 40MG TAB (PROTONIX) PO SCH (09:11)
[2021-02-12] MEDS: VITAMIN D 1,000 INTERNATIONAL UNITS TABLET PO SCH (09:11)
[2021-02-12] MEDS: DIMETHICONE 2% OINTMENT(VANICREAM) 70GM TUBE TOP SCH ×2 (09:11→22:07)
[2021-02-12] MEDS: SENOKOT S TAB PO SCH (22:05)
[2021-02-12] MEDS: PRAMIPEXOLE (MIRAPEX) 0.125 MG TAB PO SCH (22:05)
[2021-02-12] MEDS: clonazePAM 0.5 MG TAB PO PRN (22:05)
[2021-02-12] MEDS: oxyCODONE 5MG TAB PO PRN (22:06)
[2021-02-13] MEDS: guaiFENesin SYRUP 200 MG/10 ML UDC PO SCH ×4 (00:37→17:13)
[2021-02-13] MEDS: ALBUTEROL SULFATE 2.5 MG/0.5 ML INH NEB SOLN NEB PRN (02:26)
[2021-02-13 06:00] VITALS: BP 142/68
[2021-02-13] MEDS: (RENVELA) SEVELAMER **CARBONate** 800 MG TAB PO SCH ×3 (06:28→17:13)
[2021-02-13] MEDS: ALBUTEROL SULFATE 2.5 MG/0.5 ML INH NEB SOLN NEB SCH ×4 (07:53→19:42)
[2021-02-13] MEDS: BUDESONIDE 0.5 MG/2 ML INHALATION SUSPENSION INH SCH ×2 (07:53→19:42)
[2021-02-13] MEDS: FORMOTEROL FUMARATE 20 MCG/2 ML INHALATION SOLUTION (PERFOROMIST) INH SCH ×2 (07:53→19:42)
[2021-02-13] MEDS: oxyCODONE 5MG TAB PO PRN ×2 (08:07→21:43)
[2021-02-13] MEDS: clonazePAM 0.5 MG TAB PO PRN ×2 (08:07→21:43)
[2021-02-13] MEDS: MIDODRINE 5 MG TAB PO SCH ×4 (08:15→17:21)
[2021-02-13] MEDS: DIMETHICONE 2% OINTMENT(VANICREAM) 70GM TUBE TOP SCH ×2 (09:00→21:42)
--- NOTE | 2021-02-13 09:07 | IPNPDOC ---
Subjective General Date/Time Seen The patient was seen on 02/13/21 at 09:06. Subject Chief Complaint/History The patient is a 50-year-old male admitted with a reason for visit of Chronic Resp Failure S/P Trach Tube Replacement. SUBJECTIVE: Mr. Richard was seen and examined at the bedside in dialysis this morning. He has no complaints. No issues reported overnight. He is tolerating dialysis well. OBJECTIVE: PHYSICAL EXAMINATION: VITAL SIGNS: see below GENERAL: morbidly obese, laying flat in bed, alert and oriented, in no apparent distress HEENT: PERRL, EOMI, Oral mucous membranes are moist without lesions. NECK: Trach collar in place. The patient has no noted JVD. No adenopathy is appreciated. No thyromegaly CHEST/LUNGS: Lungs are clear bilaterally without rhonchi, rales, or wheezes. There is no subcutaneous air appreciated. There is no tenderness to the chest wall. HEART: Regular rate and rhythm. No murmurs, rubs, or gallops are appreciated. Distal pulses are 2+. No carotid bruits appreciated. ABDOMEN: obese, Soft, nontender, and nondistended. Bowel sounds are positive. No organomegaly is appreciated. No masses are appreciated. There are no peritoneal signs. There is no [place] sign. EXTREMITIES: R arm AV fistula with good bruit, No peripheral edema. . SKIN: The patients skin is warm and dry, without rashes or lesions. PSYCHIATRIC: normal mood/affect NEUROLOGIC: Bilateral boots in place, LE plegia IMAGING: No new imaging ASSESSMENT: This is a 50 YO M with history of ESRD on HD, chronic hypoxic/hypercapnic resp failure with trach currently pending jail placement. PLAN: 1. ESRD on HD T/T/S: -HD today -Will order labs for next HD treatment, 02/15 2. Anemia of ESRD: -Hgb last checked at 10.0, stable -Continue Aranesp with HD 3. Hyperphosphatemia of ESRD: -Continue phosphate binders (Renvela) with meals 4. Chronic respiratory failure, on trach collar: -Stable 5. Hypotension: BP 130s-140s systolic -Continue Midodrine 6. Secondary hyperparathyroidism of ESRD: -Calcium 8.6 -Continue Calcitriol DISPO: Continue HD, Pending placement Current Medications Current Medications Current Medications Medications (Trade) Dose Ordered Sig/Alicia Route PRN Reason Start Time Stop Time Status Last Admin Dose Admin Acetaminophen (Tylenol Tab) 650 mg Q4HP PRN PO PAIN / FEVER 10/10/20 21:00 02/12/21 05:20 Acetaminophen (Tylenol Tab) 650 mg Q6HP PRN PO PAIN / FEVER 06/13/20 04:45 10/10/20 20:58 DC 10/10/20 17:12 Acetylcysteine (Mucomyst 10 % (100mg/ml)) 400 mg RBID INH 10/16/20 08:00 10/28/20 09:59 DC 10/28/20 07:08 Acetylcysteine (Mucomyst 20% (200mg/ml)) 400 mg RBID INH 10/28/20 20:00 12/15/20 08:41 DC 12/14/20 19:23 Albuterol Sulfate (Proventil Neb) 2.5 mg Q2HP PRN NEB SOB/WHEEZING 10/16/20 11:30 12/21/20 08:28 DC 12/21/20 03:34 Albuterol Sulfate (Proventil Neb) 2.5 mg RQ4H PRN NEB SOB/WHEEZING 12/21/20 08:25 02/13/21 02:26 Albuterol Sulfate (Proventil Neb) 2.5 mg RQID NEB 10/16/20 12:00 02/13/21 07:53 Albuterol/ Ipratropium (Duoneb (Ipr 0.5mg/Alb 2.5mg)) 3 ml Q2H PRN NEB SHORTNESS OF BREATH 06/11/20 19:45 10/16/20 11:16 DC 10/15/20 16:52 Albuterol/ Ipratropium (Duoneb (Ipr 0.5mg/Alb 2.5mg)) 3 ml Q6H PRN NEB SOB/WHEEZING 06/11/20 19:45 06/11/20 19:45 DC Albuterol/ Ipratropium (Duoneb (Ipr 0.5mg/Alb 2.5mg)) 3 ml RQ4H NEB 07/25/20 16:00 10/16/20 11:16 DC 10/16/20 08:46 Albuterol/ Ipratropium (Duoneb (Ipr 0.5mg/Alb 2.5mg)) 3 ml RQ6H NEB 12/13/20 14:00 12/21/20 08:28 DC 12/21/20 01:03 Albuterol/ Ipratropium (Duoneb (Ipr 0.5mg/Alb 2.5mg)) 3 ml RQ6H NEB 06/11/20 20:00 07/25/20 15:32 DC 07/25/20 13:55 Alprazolam (Xanax) 0.25 mg Q6H PRN PO ANXIETY 06/11/20 19:45 10/13/20 13:17 DC 10/12/20 21:31 Amiodarone HCl (Pacerone, Cordarone) 200 mg DAILY PO 06/12/20 09:00 02/12/21 09:10 Amlodipine Besylate (Norvasc) 5 mg DAILY PO 10/06/20 09:00 10/08/20 18:19 DC 10/08/20 08:19 Amlodipine Besylate (Norvasc) 10 mg DAILY PO 08/29/20 09:00 10/05/20 18:17 DC 10/05/20 06:06 Azithromycin 500 mg/IV Miscellaneous Supplies 1 each/ Dextrose 255 ml @ 255 mls/hr Q24H IV 12/13/20 22:00 12/13/20 22:12 DC Benzonatate (Tessalon Perles) 100 mg Q8HP PRN PO COUGH 06/13/20 01:15 12/02/20 10:56 DC 06/13/20 12:18 Bisacodyl (Dulcolax Suppository) 10 mg DAILYPRN PRN [place] CONSTIPATION 06/11/20 19:45 06/15/20 16:46 DC Bisacodyl (Dulcolax Tab) 5 mg DAILY PO 06/16/20 09:00 08/04/20 17:40 DC 08/04/20 10:46 Budesonide (Pulmicort) 0.5 mg RBID INH 12/21/20 08:00 02/13/21 07:53 Calcitriol (Rocaltrol) 0.25 mcg MoTuWeThFr@0900 PO 02/06/21 09:00 02/12/21 09:09 Calcitriol (Rocaltrol) 0.25 mcg Q48H PO 12/25/20 09:00 02/05/21 10:28 DC 02/05/21 09:46 Carbamide Peroxide (Debrox) 3 drop BID 06/12/20 21:00 06/16/20 09:01 DC 06/13/20 12:17 Carbamide Peroxide (Debrox) 5 drop BID AU 01/18/21 09:00 01/21/21 21:01 DC 01/21/21 20:41 Ceftriaxone Sodium 2 gm/ Dextrose 50 ml @ 100 mls/hr Q24H IV 12/13/20 21:00 12/14/20 12:03 DC 12/13/20 20:36 Clonazepam (KlonoPIN) 0.25 mg Q6HP PRN PO anxiety 10/13/20 13:15 10/20/20 13:14 DC 10/19/20 22:24 Clonazepam (KlonoPIN) 0.25 mg Q6HP PRN PO ANXIETY 10/20/20 21:00 12/25/20 12:17 DC 12/25/20 09:08 Clonazepam (KlonoPIN) 0.5 mg Q8HP PRN PO ANXIETY 12/25/20 13:00 12/25/20 14:24 DC Clonazepam (KlonoPIN) 0.5 mg Q8HP PRN PO ANXIETY 12/25/20 18:45 02/13/21 08:07 Cod Liver Oil/ Zinc Oxide (Desitin) 1 dose BID TOP 12/24/20 21:00 12/25/20 13:48 DC 12/25/20 08:58 COVID-19 Vacc mRNA LNP-S (MOD) (PF) (Moderna Covid19 Vacc(Unapprov)) 100 mcg ASDIRECTED PRN IM COVID Vaccination 12/19/20 05:00 12/19/20 14:00 DC 12/19/20 14:00 Darbepoetin Jairo (Aranesp (Dialysis Use)) 100 mcg HD IV 01/16/21 10:00 02/08/21 16:03 DC 02/06/21 09:50 Darbepoetin Jairo (Aranesp (Dialysis Use)) 100 mcg HD IV 08/06/20 11:45 09/03/20 07:41 DC Darbepoetin Jairo (Aranesp (Dialysis Use)) 100 mcg HD IV 09/03/20 07:30 09/16/20 08:11 DC 09/10/20 09:01 Darbepoetin Jairo (Aranesp (Dialysis Use)) 200 mcg HD IV 11/19/20 12:30 01/09/21 09:57 DC 01/02/21 10:42 Darbepoetin Jairo (Aranesp (Dialysis Use)) 200 mcg HD IV 10/31/20 10:30 11/19/20 12:25 DC 11/13/20 11:56 Darbepoetin Jairo (Aranesp (Dialysis Use)) 200 mcg HD IV 01/09/21 10:00 01/16/21 09:59 DC 01/09/21 11:48 Darbepoetin Jairo (Aranesp (Dialysis Use)) 200 mcg HD IV 02/08/21 16:05 Darbepoetin Jairo (Aranesp (Dialysis Use)) 200 mcg HD IV 10/08/20 18:30 10/31/20 10:17 DC 10/24/20 10:47 Dimethicone (Vanicream Ointment) 1 dose BID TOP 11/27/20 09:00 02/12/21 22:07 Diphenhydramine HCl (Benadryl) 50 mg ONCE PRN IV ALLERGIC REACTION 12/19/20 13:40 12/19/20 23:59 DC Emollient Cream (Vanicream) to bilateral lo... DAILY TOP 08/05/20 09:00 09/09/20 11:17 DC 09/08/20 09:44 Emollient Cream (Vanicream) to bilateral lo... DAILY PRN TOP DRY SKIN 09/09/20 11:15 11/27/20 13:12 DC 09/28/20 22:12 Epinephrine HCl (Adrenalin) 0.3 mg ONCE PRN IM ALLERGIC REACTION 12/19/20 13:45 12/19/20 23:59 DC Erythromycin (Ilotycin) 1 CM RIBBON TID OU 11/20/20 16:00 11/27/20 16:00 DC 11/27/20 16:49 Fentanyl Citrate (Sublimaze) 25 mcg Q5MP PRN IV PAIN LEVEL 5-10 11/08/20 13:00 11/08/20 14:00 DC Formoterol Fumarate (Perforomist) 20 mcg RBID INH 12/21/20 08:00 02/13/21 07:53 Guaifenesin (Robitussin) 5 ml Q6H PO 07/28/20 12:00 02/13/21 06:28 Heparin Sodium (Heparin (Flush)) 200 units ASDIRECTED PRN IV SEE LABEL COMMENTS 06/11/20 19:45 06/11/20 19:49 DC Heparin Sodium (Heparin (Flush)) 200 units ASDIRECTED PRN IV SEE LABEL COMMENTS 06/11/20 19:45 06/20/20 18:55 DC 06/20/20 06:42 Heparin Sodium (Heparin (Flush)) 200 units PICC IV 06/12/20 06:00 06/11/20 19:48 DC Heparin Sodium (Heparin (Flush)) 200 units PICC IV 06/12/20 06:00 06/20/20 18:55 DC 06/20/20 06:41 Heparin Sodium (Heparin) 9,000 units ASDIRECTED XX 10/03/20 10:55 10/04/20 09:29 DC Heparin Sodium (Heparin) 9,000 units ASDIRECTED XX 09/26/20 13:04 09/27/20 07:14 DC Heparin Sodium (Heparin) Please refer to ... ASDIRECTED XX 11/05/20 08:00 11/06/20 07:59 DC Heparin Sodium (Heparin) Please refer to ... ASDIRECTED XX 11/07/20 08:00 11/08/20 07:59 DC Heparin Sodium (Heparin) Please refer to ... ASDIRECTED XX 11/09/20 08:00 11/10/20 07:59 DC Heparin Sodium (Heparin) Please refer to ... ASDIRECTED XX 11/11/20 08:30 11/12/20 08:29 DC Heparin Sodium (Heparin) Please refer to ... ASDIRECTED XX 11/13/20 12:45 11/14/20 12:44 DC Heparin Sodium (Heparin) Please refer to ... ASDIRECTED XX 11/15/20 10:00 11/16/20 09:59 DC Heparin Sodium (Heparin) Please refer to ... ASDIRECTED XX 10/28/20 12:45 10/29/20 12:44 DC Heparin Sodium (Heparin) Please refer to ... ASDIRECTED XX 10/29/20 12:00 10/30/20 11:59 DC Heparin Sodium (Heparin) Please refer to ... ASDIRECTED XX 10/30/20 22:45 10/31/20 22:44 DC Heparin Sodium (Heparin) Please refer to ... ASDIRECTED XX 11/02/20 08:00 11/03/20 07:59 DC Heparin Sodium (Heparin) Please refer to ... ASDIRECTED XX 11/25/20 08:00 11/26/20 07:59 DC Heparin Sodium (Heparin) Please refer to ... ASDIRECTED XX 12/05/20 10:15 12/06/20 10:14 DC Heparin Sodium (Heparin) Please refer to ... ASDIRECTED XX 12/07/20 09:00 12/08/20 08:59 DC Heparin Sodium (Heparin) Please refer to ... ASDIRECTED XX 12/14/20 07:00 12/15/20 06:59 DC Heparin Sodium (Heparin) Please refer to ... ASDIRECTED XX 12/17/20 07:00 12/18/20 06:59 DC Heparin Sodium (Heparin) Please refer to ... ASDIRECTED XX 12/19/20 07:00 12/20/20 06:59 DC Heparin Sodium (Heparin) Please refer to ... ASDIRECTED XX 12/21/20 09:00 12/22/20 08:59 DC Heparin Sodium (Heparin) Please refer to ... ASDIRECTED XX 11/27/20 10:30 11/28/20 10:29 DC Heparin Sodium (Heparin) Please refer to ... ASDIRECTED XX 11/30/20 07:00 12/01/20 06:59 DC Heparin Sodium (Heparin) Please refer to ... ASDIRECTED XX 12/03/20 07:45 12/04/20 07:44 DC Heparin Sodium (Heparin) Please refer to ... ASDIRECTED XX 12/23/20 14:10 12/24/20 14:09 Cancel Heparin Sodium (Heparin) Please refer to ... ASDIRECTED XX 01/04/21 05:45 01/05/21 05:44 DC Heparin Sodium (Heparin) Please refer to ... ASDIRECTED XX 01/05/21 11:10 01/06/21 11:09 DC Heparin Sodium (Heparin) Please refer to ... ASDIRECTED XX 01/07/21 07:45 01/08/21 07:44 DC Heparin Sodium (Heparin) Please refer to ... ASDIRECTED XX 01/09/21 06:00 01/10/21 05:59 DC Heparin Sodium (Heparin) Please refer to ... ASDIRECTED XX 01/10/21 20:10 01/11/21 20:09 DC Heparin Sodium (Heparin) Please refer to ... ASDIRECTED XX 12/24/20 08:00 12/25/20 07:59 DC Heparin Sodium (Heparin) Please refer to ... ASDIRECTED XX 12/26/20 08:20 12/27/20 08:19 DC Heparin Sodium (Heparin) Please refer to ... ASDIRECTED XX 02/04/21 09:40 02/05/21 09:39 DC Heparin Sodium (Heparin) Please refer to ... ASDIRECTED XX 02/06/21 08:30 02/07/21 08:29 DC Heparin Sodium (Heparin) Please refer to ... ASDIRECTED XX 01/25/21 07:10 01/26/21 07:09 DC Heparin Sodium (Heparin) Please refer to ... ASDIRECTED XX 01/28/21 07:10 01/29/21 07:09 DC Heparin Sodium (Heparin) Please refer to ... ASDIRECTED XX 01/30/21 07:00 01/31/21 06:59 DC Heparin Sodium (Heparin) Please refer to ... ASDIRECTED XX 01/31/21 22:15 02/01/21 22:14 DC Heparin Sodium (Heparin) Please refer to ... ASDIRECTED XX 09/20/20 17:45 09/21/20 17:44 DC Heparin Sodium (Heparin) Please refer to ... ASDIRECTED XX 09/24/20 07:15 09/25/20 07:14 DC Heparin Sodium (Heparin) Please refer to ... ASDIRECTED XX 10/03/20 09:30 10/03/20 10:55 DC Heparin Sodium (Heparin) Please refer to ... ASDIRECTED XX 10/12/20 08:00 10/13/20 07:59 DC Heparin Sodium (Heparin) Please refer to ... ASDIRECTED XX 10/15/20 08:00 10/16/20 07:59 DC Heparin Sodium (Heparin) Please refer to ... ASDIRECTED XX 10/17/20 10:00 10/18/20 09:59 DC Heparin Sodium (Heparin) Please refer to ... ASDIRECTED XX 10/19/20 08:00 10/20/20 07:59 DC Heparin Sodium (Heparin) Please refer to ... ASDIRECTED XX 09/26/20 07:15 09/26/20 13:04 DC Heparin Sodium (Heparin) Please refer to ... ASDIRECTED XX 09/28/20 07:45 09/29/20 07:44 DC Heparin Sodium (Heparin) dose as per volume indica... ASDIRECTED PRN IV SEE LABEL COMMENTS 11/05/20 08:00 11/05/20 11:59 DC Heparin Sodium (Heparin) dose as per volume indica... ASDIRECTED PRN IV SEE LABEL COMMENTS 11/07/20 08:00 11/07/20 20:59 DC Heparin Sodium (Heparin) dose as per volume indica... ASDIRECTED PRN IV SEE LABEL COMMENTS 11/09/20 08:00 11/09/20 21:59 DC Heparin Sodium (Heparin) dose as per volume indica... ASDIRECTED PRN IV SEE LABEL COMMENTS 11/02/20 08:00 11/02/20 20:14 DC Heparin Sodium (Heparin) dose as per volume indica... ASDIRECTED PRN IV SEE LABEL COMMENTS 11/25/20 08:00 11/25/20 20:44 DC Heparin Sodium (Heparin) dose as per volume indica... ASDIRECTED PRN IV SEE LABEL COMMENTS 09/04/20 11:30 09/05/20 08:25 DC Heparin Sodium (Heparin) dose as per volume indica... ASDIRECTED PRN IV SEE LABEL COMMENTS 09/04/20 11:30 09/05/20 08:25 DC Heparin Sodium (Porcine) (Heparin) 5,000 units BID SQ 10/23/20 09:00 01/05/21 13:45 DC 01/05/21 08:56 Heparin Sodium (Porcine) (Heparin) 5,000 units Q8H SQ 06/11/20 22:00 06/13/20 15:19 DC 06/13/20 12:17 Heparin Sodium (Porcine) (Heparin) 5,000 units Q8H SQ 07/25/20 22:00 10/22/20 22:18 DC 10/22/20 21:21 Home Med (Med Rec Complete!) ASDIRECTED XX 06/12/20 10:15 06/12/20 10:08 DC Hydralazine HCl (Apresoline) 10 mg Q6H PRN PO SBP>170 06/11/20 19:45 08/06/20 11:39 DC 06/19/20 22:01 Iron (Venofer) 100 mg HD IV 11/13/20 12:30 11/25/20 10:02 DC 11/22/20 10:43 Iron (Venofer) 100 mg HD IV 07/11/20 11:30 08/27/20 13:16 DC Lactated Ringer's 1,000 ml @ 100 mls/hr Q10H IV 11/08/20 13:00 11/08/20 14:00 DC Lactated Ringer's 1,000 ml @ 100 mls/hr Q10H IV 01/01/21 14:50 01/01/21 15:50 DC Levetiracetam (Keppra) 500 mg DAILY PO 06/12/20 09:00 02/12/21 09:09 Lidocaine (Lidoderm Patch) 1 patch DAILY TD 06/12/20 09:00 09/09/20 11:57 DC 07/13/20 06:43 Lidocaine (Lidoderm Patch) 1 patch DAILY PRN TD BACK PAIN 09/09/20 12:00 09/09/20 14:17 DC Lidocaine HCl (Lidocaine 1% Sdv) 0.5 ml ASDIRECTED PRN SC SEE LABEL COMMENTS 11/05/20 08:00 11/05/20 11:59 DC Lidocaine HCl (Lidocaine 1% Sdv) 0.5 ml ASDIRECTED PRN SC SEE LABEL COMMENTS 11/07/20 08:00 11/07/20 20:59 DC Lidocaine HCl (Lidocaine 1% Sdv) 0.5 ml ASDIRECTED PRN SC SEE LABEL COMMENTS 11/09/20 08:00 11/09/20 21:59 DC Lidocaine HCl (Lidocaine 1% Sdv) 0.5 ml ASDIRECTED PRN SC SEE LABEL COMMENTS 11/11/20 08:30 11/12/20 08:29 DC Lidocaine HCl (Lidocaine 1% Sdv) 0.5 ml ASDIRECTED PRN SC SEE LABEL COMMENTS 11/13/20 12:45 11/14/20 12:44 DC Lidocaine HCl (Lidocaine 1% Sdv) 0.5 ml ASDIRECTED PRN SC SEE LABEL COMMENTS 11/15/20 10:00 11/16/20 09:59 DC Lidocaine HCl (Lidocaine 1% Sdv) 0.5 ml ASDIRECTED PRN SC SEE LABEL COMMENTS 10/28/20 12:45 10/29/20 12:44 DC Lidocaine HCl (Lidocaine 1% Sdv) 0.5 ml ASDIRECTED PRN SC SEE LABEL COMMENTS 10/29/20 12:00 10/30/20 11:59 DC Lidocaine HCl (Lidocaine 1% Sdv) 0.5 ml ASDIRECTED PRN SC SEE LABEL COMMENTS 10/30/20 22:45 10/31/20 22:44 DC Lidocaine HCl (Lidocaine 1% Sdv) 0.5 ml ASDIRECTED PRN SC SEE LABEL COMMENTS 11/02/20 08:00 11/02/20 20:14 DC Lidocaine HCl (Lidocaine 1% Sdv) 0.5 ml ASDIRECTED PRN SC SEE LABEL COMMENTS 11/25/20 08:00 11/25/20 20:44 DC Lidocaine HCl (Lidocaine 1% Sdv) 0.5 ml ASDIRECTED PRN SC SEE LABEL COMMENTS 12/05/20 10:15 12/06/20 10:14 DC Lidocaine HCl (Lidocaine 1% Sdv) 0.5 ml ASDIRECTED PRN SC SEE LABEL COMMENTS 12/07/20 09:00 12/08/20 08:59 DC Lidocaine HCl (Lidocaine 1% Sdv) 0.5 ml ASDIRECTED PRN SC SEE LABEL COMMENTS 12/14/20 07:00 12/15/20 06:59 DC Lidocaine HCl (Lidocaine 1% Sdv) 0.5 ml ASDIRECTED PRN SC SEE LABEL COMMENTS 12/17/20 07:00 12/17/20 11:14 DC Lidocaine HCl (Lidocaine 1% Sdv) 0.5 ml ASDIRECTED PRN SC SEE LABEL COMMENTS 12/19/20 07:00 12/20/20 06:59 DC Lidocaine HCl (Lidocaine 1% Sdv) 0.5 ml ASDIRECTED PRN SC SEE LABEL COMMENTS 12/21/20 09:00 12/22/20 08:59 DC Lidocaine HCl (Lidocaine 1% Sdv) 0.5 ml ASDIRECTED PRN SC SEE LABEL COMMENTS 11/27/20 10:30 11/28/20 10:29 DC Lidocaine HCl (Lidocaine 1% Sdv) 0.5 ml ASDIRECTED PRN SC SEE LABEL COMMENTS 11/30/20 07:00 11/30/20 09:14 DC Lidocaine HCl (Lidocaine 1% Sdv) 0.5 ml ASDIRECTED PRN SC SEE LABEL COMMENTS 12/03/20 07:45 12/04/20 07:44 DC Lidocaine HCl (Lidocaine 1% Sdv) 0.5 ml ASDIRECTED PRN SC SEE LABEL COMMENTS 12/23/20 14:10 12/24/20 14:09 Cancel Lidocaine HCl (Lidocaine 1% Sdv) 0.5 ml ASDIRECTED PRN SC SEE LABEL COMMENTS 01/04/21 05:45 01/05/21 05:44 DC Lidocaine HCl (Lidocaine 1% Sdv) 0.5 ml ASDIRECTED PRN SC SEE LABEL COMMENTS 01/07/21 07:45 01/08/21 07:44 DC Lidocaine HCl (Lidocaine 1% Sdv) 0.5 ml ASDIRECTED PRN SC SEE LABEL COMMENTS 01/09/21 06:00 01/09/21 23:04 DC Lidocaine HCl (Lidocaine 1% Sdv) 0.5 ml ASDIRECTED PRN SC SEE LABEL COMMENTS 01/10/21 20:10 01/11/21 20:09 DC Lidocaine HCl (Lidocaine 1% Sdv) 0.5 ml ASDIRECTED PRN SC SEE LABEL COMMENTS 12/24/20 08:00 12/25/20 07:59 DC Lidocaine HCl (Lidocaine 1% Sdv) 0.5 ml ASDIRECTED PRN SC SEE LABEL COMMENTS 12/26/20 08:20 12/27/20 08:19 DC Lidocaine HCl (Lidocaine 1% Sdv) 0.5 ml ASDIRECTED PRN SC SEE LABEL COMMENTS 02/04/21 09:40 02/05/21 09:39 DC Lidocaine HCl (Lidocaine 1% Sdv) 0.5 ml ASDIRECTED PRN SC SEE LABEL COMMENTS 02/06/21 08:30 02/07/21 08:29 DC Lidocaine HCl (Lidocaine 1% Sdv) 0.5 ml ASDIRECTED PRN SC SEE LABEL COMMENTS 01/25/21 07:10 01/26/21 07:09 DC Lidocaine HCl (Lidocaine 1% Sdv) 0.5 ml ASDIRECTED PRN SC SEE LABEL COMMENTS 01/28/21 07:10 01/29/21 07:09 DC Lidocaine HCl (Lidocaine 1% Sdv) 0.5 ml ASDIRECTED PRN SC SEE LABEL COMMENTS 01/30/21 07:00 01/31/21 06:59 DC Lidocaine HCl (Lidocaine 1% Sdv) 0.5 ml ASDIRECTED PRN SC SEE LABEL COMMENTS 01/31/21 22:15 02/01/21 22:14 DC Lidocaine HCl (Lidocaine 1% Sdv) 0.5 ml ASDIRECTED PRN SC SEE LABEL COMMENTS 09/04/20 11:30 09/05/20 08:26 DC Lidocaine HCl (Lidocaine 1% Sdv) 0.5 ml ASDIRECTED PRN SC SEE LABEL COMMENTS 09/04/20 11:30 09/05/20 08:26 DC Lidocaine HCl (Lidocaine 1% Sdv) 0.5 ml ASDIRECTED PRN SC SEE LABEL COMMENTS 09/07/20 07:30 09/08/20 07:29 DC Lidocaine HCl (Lidocaine 1% Sdv) 0.5 ml ASDIRECTED PRN SC SEE LABEL COMMENTS 09/07/20 07:30 09/08/20 07:29 DC Lidocaine HCl (Lidocaine 1% Sdv) 0.5 ml ASDIRECTED PRN SC SEE LABEL COMMENTS 09/21/20 08:00 09/21/20 17:44 DC Lidocaine HCl (Lidocaine 1% Sdv) 0.5 ml ASDIRECTED PRN SC SEE LABEL COMMENTS 09/24/20 07:15 09/25/20 07:14 DC Lidocaine HCl (Lidocaine 1% Sdv) 0.5 ml ASDIRECTED PRN SC SEE LABEL COMMENTS 10/03/20 09:30 10/04/20 09:29 DC Lidocaine HCl (Lidocaine 1% Sdv) 0.5 ml ASDIRECTED PRN SC SEE LABEL COMMENTS 10/12/20 08:00 10/13/20 07:59 DC Lidocaine HCl (Lidocaine 1% Sdv) 0.5 ml ASDIRECTED PRN SC SEE LABEL COMMENTS 10/15/20 08:00 10/15/20 20:59 DC Lidocaine HCl (Lidocaine 1% Sdv) 0.5 ml ASDIRECTED PRN SC SEE LABEL COMMENTS 10/17/20 10:00 10/18/20 09:59 DC Lidocaine HCl (Lidocaine 1% Sdv) 0.5 ml ASDIRECTED PRN SC SEE LABEL COMMENTS 10/19/20 08:00 10/19/20 12:59 DC Lidocaine HCl (Lidocaine 1% Sdv) 0.5 ml ASDIRECTED PRN SC SEE LABEL COMMENTS 09/26/20 07:15 09/27/20 07:14 DC Lidocaine HCl (Lidocaine 1% Sdv) 0.5 ml ASDIRECTED PRN SC SEE LABEL COMMENTS 10/01/20 10:30 10/02/20 10:29 DC Lorazepam (Ativan) 1 mg STAT STAT IV 02/02/21 21:36 02/02/21 21:37 Cancel Methylprednisolone (SOLUmedrol) 60 mg Q12H IV 12/22/20 18:00 12/23/20 11:30 DC 12/23/20 06:23 Methylprednisolone (SOLUmedrol) 60 mg Q6H IV 12/20/20 18:00 12/21/20 10:16 DC 12/21/20 05:59 Methylprednisolone (SOLUmedrol) 60 mg Q8H IV 12/21/20 14:00 12/22/20 07:39 DC 12/22/20 06:21 Midodrine (Proamatine) 5 mg MoWeFr@0900 PO 11/20/20 09:00 12/02/20 09:00 DC 11/30/20 08:29 Midodrine (Proamatine) 5 mg TuThSa@0900 PO 11/05/20 09:00 11/19/20 10:13 DC 11/18/20 08:24 Midodrine (Proamatine) 5 mg TuThSa@0900 PO 12/03/20 09:00 12/25/20 10:04 DC 12/24/20 07:58 Midodrine (Proamatine) 10 mg 08,12,16 PO 12/31/20 12:00 02/13/21 08:15 Midodrine (Proamatine) 10 mg ASDIRECTED PO 06/11/20 20:30 08/31/20 21:12 DC 08/10/20 06:14 Midodrine (Proamatine) 10 mg HD PO 06/11/20 21:00 06/11/20 20:22 DC Miscellaneous (Unresolved Clarification Entry) SEE LABEL COMMENTS DAILY XX 11/24/20 09:00 11/24/20 12:58 DC Miscellaneous (Unresolved Clarification Entry) SEE LABEL COMMENTS DAILY XX 10/29/20 09:00 10/29/20 09:54 DC Miscellaneous (Unresolved Clarification Entry) SEE LABEL COMMENTS DAILY XX 11/01/20 09:00 11/05/20 08:43 DC 11/04/20 08:23 Miscellaneous (Unresolved Clarification Entry) SEE LABEL COMMENTS DAILY XX 01/12/21 09:00 01/12/21 15:30 DC Miscellaneous (Unresolved Clarification Entry) SEE LABEL COMMENTS DAILY XX 02/07/21 09:00 02/07/21 14:40 DC 02/07/21 09:00 Miscellaneous (Unresolved Clarification Entry) SEE LABEL COMMENTS DAILY XX 06/24/20 09:00 06/25/20 12:54 DC Miscellaneous (Unresolved Clarification Entry) SEE LABEL COMMENTS DAILY XX 09/29/20 09:00 09/29/20 12:49 DC Non-Formulary Medication ( See Comment Field Below ) CHECK TO SEE IF THE PATIENT... DAILY@0800 XX 06/27/20 08:00 09/01/20 18:17 DC 08/10/20 06:36 Non-Formulary Medication ( See Comment Field Below ) CHECK TO SEE IF THE PATIENT... DAILY@1600 XX 12/17/20 16:00 12/22/20 23:59 DC 12/21/20 15:21 Non-Formulary Medication ( See Comment Field Below ) REMOVE LIDODERM PATCH DAILY@21 XX 06/11/20 21:00 09/09/20 11:57 DC 09/04/20 21:00 Non-Formulary Medication ( See Comment Field Below ) REMOVE LIDODERM PATCH DAILY@21 PRN XX BACK PAIN 09/09/20 12:00 09/09/20 14:17 DC Nystatin (Mycostatin Powder, Nystop) Apply to groin folds BIDP PRN TOP REDNESS/IRRITATION 08/27/20 01:00 09/25/20 01:24 DC Nystatin (Mycostatin Powder, Nystop) apply to groin BID TOP 01/28/21 21:00 02/08/21 16:36 DC 02/07/21 21:08 Nystatin (Mycostatin Powder, Nystop) apply to groin area daily DAILY TOP 11/25/20 09:00 12/25/20 13:48 DC 12/25/20 08:58 Ondansetron HCl (ZOFRAN INJection) 4 mg Q4HP PRN IV NAUSEA OR VOMITING 11/08/20 13:00 11/08/20 14:00 DC Ondansetron HCl (ZOFRAN INJection) 4 mg Q4HP PRN IV NAUSEA OR VOMITING 01/01/21 14:50 01/01/21 15:50 DC Ondansetron HCl (ZOFRAN INJection) 4 mg Q4HP PRN IV NAUSEA OR VOMITING 01/11/21 20:55 01/12/21 20:54 DC Ondansetron HCl (Zofran) 4 mg Q6HP PRN PO NAUSEA OR VOMITING 07/08/20 12:45 01/15/21 04:19 Oxycodone HCl (Roxicodone, Oxyir) 10 mg Q4H PRN PO PAIN 06/11/20 19:45 10/19/20 15:15 DC 10/18/20 22:28 Oxycodone HCl (Roxicodone, Oxyir) 10 mg Q4HP PRN PO SEVERE PAIN (PS 8-10) 10/19/20 22:15 10/20/20 10:15 DC 10/19/20 22:23 Oxycodone HCl (Roxicodone, Oxyir) 10 mg Q4HP PRN PO SEVERE PAIN (PS 8-10) 10/20/20 21:00 10/22/20 22:18 DC 10/22/20 21:20 Oxycodone HCl (Roxicodone, Oxyir) 10 mg Q8HP PRN PO SEVERE PAIN (PS 8-10) 10/22/20 22:30 02/13/21 08:07 Pantoprazole Sodium (Protonix) 40 mg DAILY PO 06/12/20 09:00 02/12/21 09:11 Phenol (Chloraseptic Milo) 1 spray Q2HP PRN MT SORE THROAT 10/09/20 08:45 01/14/21 06:37 Piperacillin Sod/ Tazobactam Sod 2.25 gm/Dextrose 50 ml @ 100 mls/hr Q8H IV 12/14/20 17:00 12/22/20 23:59 DC 12/22/20 17:18 Piperacillin Sod/ Tazobactam Sod 3.375 gm/Dextrose 50 ml @ 50 mls/hr Q6H IV 12/14/20 12:15 UNV Polyethylene Glycol (Miralax) 1 pkt DAILY PRN PO CONSTIPATION 06/11/20 19:45 06/15/20 16:45 DC Polyethylene Glycol (Miralax) 1 pkt DAILYPRN PRN PO CONSTIPATION 08/04/20 17:45 Polymyxin/ Trimethoprim Sulfate (Polytrim Ophth Drops) 1 drop 6XD OU 08/03/20 15:00 08/10/20 12:00 DC 08/10/20 06:13 Pramipexole Dihydrochloride (Mirapex) 0.125 mg QHS PO 06/11/20 21:00 02/12/21 22:05 Prednisone (Deltasone) Taper DAILY PO 12/24/20 09:00 01/02/21 08:59 DC 01/01/21 08:57 Prednisone (Deltasone) 30 mg Taper DAILY PO 12/21/20 09:00 12/20/20 18:32 DC Prednisone (Deltasone) 40 mg DAILY PO 12/14/20 09:00 12/20/20 13:37 DC 12/20/20 09:25 Salmeterol Xinafoate/ Fluticasone (Advair Hfa 115/ ) 2 puff RBID INH 12/13/20 08:00 12/21/20 08:28 DC 12/20/20 20:12 Senna/Docusate Sodium (Senokot S) 2 tab QHS PO 08/04/20 21:00 02/12/21 22:05 Sertraline HCl (Zoloft) 100 mg DAILY PO 06/12/20 09:00 09/30/20 11:35 DC 09/30/20 09:50 Sertraline HCl (Zoloft) 150 mg DAILY PO 10/01/20 09:00 10/13/20 13:17 DC 10/13/20 10:21 Sertraline HCl (Zoloft) 200 mg DAILY PO 10/14/20 09:00 02/12/21 09:09 Sevelamer Carbonate (Renvela) 2,400 mg WM PO 06/12/20 08:00 11/15/20 16:12 DC 11/15/20 13:15 Sevelamer Carbonate (Renvela) 4,000 mg WM PO 11/15/20 18:00 02/13/21 06:28 Sodium Chloride (Nacl 0.9%) 200 ml ASDIRECTED PRN IV SEE LABEL COMMENTS 11/07/20 08:00 11/08/20 07:59 DC Sodium Chloride (Nacl 0.9%) 200 ml ASDIRECTED PRN IV SEE LABEL COMMENTS 11/09/20 08:00 11/10/20 07:59 DC Sodium Chloride (Nacl 0.9%) 200 ml ASDIRECTED PRN IV SEE LABEL COMMENTS 11/11/20 08:30 11/12/20 08:29 DC Sodium Chloride (Nacl 0.9%) 200 ml ASDIRECTED PRN IV SEE LABEL COMMENTS 11/13/20 12:45 11/14/20 12:44 DC Sodium Chloride (Nacl 0.9%) 200 ml ASDIRECTED PRN IV SEE LABEL COMMENTS 11/15/20 10:00 11/16/20 09:59 DC Sodium Chloride (Nacl 0.9%) 200 ml ASDIRECTED PRN IV SEE LABEL COMMENTS 10/28/20 12:45 10/29/20 12:44 DC Sodium Chloride (Nacl 0.9%) 200 ml ASDIRECTED PRN IV SEE LABEL COMMENTS 10/29/20 12:00 10/30/20 11:59 DC Sodium Chloride (Nacl 0.9%) 200 ml ASDIRECTED PRN IV SEE LABEL COMMENTS 10/30/20 22:45 10/31/20 22:44 DC Sodium Chloride (Nacl 0.9%) 200 ml ASDIRECTED PRN IV SEE LABEL COMMENTS 12/05/20 10:15 12/06/20 10:14 DC Sodium Chloride (Nacl 0.9%) 200 ml ASDIRECTED PRN IV SEE LABEL COMMENTS 12/07/20 09:00 12/08/20 08:59 DC Sodium Chloride (Nacl 0.9%) 200 ml ASDIRECTED PRN IV SEE LABEL COMMENTS 12/14/20 07:00 12/15/20 06:59 DC Sodium Chloride (Nacl 0.9%) 200 ml ASDIRECTED PRN IV SEE LABEL COMMENTS 12/21/20 09:00 12/22/20 08:59 DC Sodium Chloride (Nacl 0.9%) 200 ml ASDIRECTED PRN IV SEE LABEL COMMENTS 12/03/20 07:45 12/04/20 07:44 DC Sodium Chloride (Nacl 0.9%) 200 ml ASDIRECTED PRN IV SEE LABEL COMMENTS 12/23/20 14:10 12/24/20 14:09 Cancel Sodium Chloride (Nacl 0.9%) 200 ml ASDIRECTED PRN IV SEE LABEL COMMENTS 01/04/21 05:45 01/05/21 05:44 DC Sodium Chloride (Nacl 0.9%) 200 ml ASDIRECTED PRN IV SEE LABEL COMMENTS 12/24/20 08:00 12/25/20 07:59 DC Sodium Chloride (Nacl 0.9%) 200 ml ASDIRECTED PRN IV SEE LABEL COMMENTS 12/26/20 08:20 12/27/20 08:19 DC Sodium Chloride (Nacl 0.9%) 200 ml ASDIRECTED PRN IV SEE LABEL COMMENTS 02/04/21 09:40 02/05/21 09:39 DC Sodium Chloride (Nacl 0.9%) 200 ml ASDIRECTED PRN IV SEE LABEL COMMENTS 02/06/21 08:30 02/07/21 08:29 DC Sodium Chloride (Nacl 0.9%) 200 ml ASDIRECTED PRN IV SEE LABEL COMMENTS 09/03/20 07:30 09/05/20 08:26 DC Sodium Chloride (Nacl 0.9%) 200 ml ASDIRECTED PRN IV SEE LABEL COMMENTS 09/04/20 11:30 09/10/20 10:39 DC Sodium Chloride (Nacl 0.9%) 200 ml ASDIRECTED PRN IV SEE LABEL COMMENTS 09/07/20 07:30 09/10/20 10:39 DC Sodium Chloride (Nacl 0.9%) 200 ml ASDIRECTED PRN IV SEE LABEL COMMENTS 09/12/20 08:00 09/24/20 08:57 DC Sodium Chloride (Nacl 0.9%) 200 ml ASDIRECTED PRN IV SEE LABEL COMMENTS 09/24/20 07:15 09/25/20 07:14 DC Sodium Chloride (Nacl 0.9%) 200 ml ASDIRECTED PRN IV SEE LABEL COMMENTS 10/03/20 09:30 10/04/20 09:29 DC Sodium Chloride (Nacl 0.9%) 200 ml ASDIRECTED PRN IV SEE LABEL COMMENTS 10/12/20 08:00 10/13/20 07:59 DC Sodium Chloride (Nacl 0.9%) 200 ml ASDIRECTED PRN IV SEE LABEL COMMENTS 10/15/20 08:00 10/16/20 07:59 DC Sodium Chloride (Nacl 0.9%) 200 ml ASDIRECTED PRN IV SEE LABEL COMMENTS 10/17/20 10:00 10/18/20 09:59 DC Sodium Chloride (Nacl 0.9%) 200 ml ASDIRECTED PRN IV SEE LABEL COMMENTS 09/26/20 07:15 09/27/20 07:14 DC Sodium Chloride (Nacl 0.9%) 200 ml ASDIRECTED PRN IV SEE LABEL COMMENTS 09/28/20 07:45 09/29/20 07:44 DC Sodium Chloride (Nacl 0.9%) 200 ml ASDIRECTED PRN IV SEE LABEL COMMENTS 10/01/20 10:30 10/02/20 10:29 DC Sodium Chloride (Saline Lock Flush) 10 ml ASDIRECTED PRN IV SEE LABEL COMMENTS 06/11/20 19:45 06/11/20 19:50 DC Sodium Chloride (Saline Lock Flush) 10 ml ASDIRECTED PRN IV SEE LABEL COMMENTS 06/11/20 19:45 06/20/20 18:55 DC 06/20/20 06:41 Sodium Chloride (Saline Lock Flush) 10 ml PICC IV 06/12/20 06:00 06/11/20 19:49 DC Sodium Chloride (Saline Lock Flush) 10 ml PICC IV 06/12/20 06:00 06/20/20 18:55 DC 06/20/20 06:41 Sucroferric Oxyhydroxide (Velphoro) 500 mg WM PO 11/11/20 18:00 11/15/20 16:12 DC 11/12/20 17:52 Sucroferric Oxyhydroxide (Velphoro) 500 mg WM PO 07/11/20 12:30 09/21/20 12:33 DC 09/15/20 18:12 Vancomycin HCl 1000 mg/IV Miscellaneous Supplies 1 each/ Dextrose 270 ml @ 270 mls/hr HD IV 12/17/20 09:00 12/20/20 10:00 DC 12/19/20 15:55 Vancomycin HCl 1000 mg/IV Miscellaneous Supplies 1 each/ Dextrose 270 ml @ 270 mls/hr Q12H IV 12/14/20 12:00 UNV Vancomycin HCl 1000 mg/IV Miscellaneous Supplies 1 each/ Sodium Chloride 270 ml @ 270 mls/hr HD IV 12/20/20 10:05 12/22/20 23:59 DC 12/21/20 15:19 Vitamin D (Vitamin D) 2,000 units DAILY PO 12/03/20 09:00 02/12/21 09:11 Zinc Oxide (Boudreauxs Butt Paste) 1 dose BID TOP 11/28/20 09:00 12/24/20 16:02 DC 12/24/20 08:00 Allergies Coded Allergies: moxifloxacin (Verified Allergy, Intermediate, RASH, 12/25/19) codeine (Verified Allergy, Unknown, 12/25/19) valsartan (Verified Allergy, Unknown, 12/25/19) VS,Fishbone, I+O VS, Fishbone, I+O Vital Signs Date Time Temp Pulse Resp B/P (MAP) Pulse Ox O2 Delivery O2 Flow Rate FiO2 02/13/21 08:07 18 Trach Collar 02/13/21 06:00 97.5 65 142/68 (92) 94 5.0 28 I&O- Last 24 Hours up to 6 AM 02/13/21 06:00 Intake Total 2320 ml Output Total 0 ml Balance 2320 ml GME ATTESTATION GME ATTESTATION My faculty preceptor for this patient encounter was physically present during the encounter and was fully available. All aspects of the patient interview, examination, medical decision making process, and medical care plan development were reviewed and approved by the faculty preceptor. The faculty preceptor is aware and concurs with the plan as stated in the body of this note and will attest to such by his/her cosignature. ANIKT MULLEN MD Feb 13, 2021 09:07
[2021-02-13 09:57] LABS: BASO % 0.4 % (0.0-1.0); EOS # 0.6 10^3/uL (0.0-0.5); EOS % 6.9 % (0.0-3.0); HEMATOCRIT 34.3 % (42.0-52.0); LYMPH # 1.4 10^3/uL (1.5-5.0); LYMPH % 17.7 % (24.0-44.0); MEAN CORPUSCULAR HEMOGLOBIN 27.9 pg (27.0-33.0); MEAN CORPUSCULAR HGB CONC 29.2 g/dl (32.0-36.5); MEAN CORPUSCULAR VOLUME 95.5 fl (80.0-96.0); MONO # 0.4 10^3/uL (0.0-0.8); NEUTROPHILS # 5.7 10^3/uL (1.5-8.5); NEUTROPHILS % 69.5 % (36.0-66.0); PLATELET COUNT, AUTOMATED 159 10^3/uL (150-450); RED BLOOD COUNT 3.59 10^6/uL (4.30-6.10); WHITE BLOOD COUNT 8.1 10^3/uL (4.0-10.0)
[2021-02-13 10:22] LABS: CALCIUM LEVEL 8.7 MG/DL (8.5-10.1); CREATININE FOR GFR 5.97 MG/DL (0.70-1.30); GLOMERULAR FILTRATION RATE 10.8 (>60); POTASSIUM SERUM 4.8 MEQ/L (3.5-5.1)
[2021-02-13] MEDS: DARBEPOETIN 200MCG/0.4ML *DIALYSIS* SYRINGE (J0882 PER 1MCG) IV SCH (11:21)
[2021-02-13] MEDS: AMIODARONE 200 MG TAB (PACERONE) PO SCH (14:53)
[2021-02-13] MEDS: CALCITRIOL 0.25 MCG CAP (S0169) PO SCH (14:53)
[2021-02-13] MEDS: SERTRALINE 100 MG TAB PO SCH (14:54)
[2021-02-13] MEDS: PANTOPRAZOLE 40MG TAB (PROTONIX) PO SCH (14:54)
[2021-02-13] MEDS: levETIRAcetam 250MG TABLET (KEPPRA) PO SCH (14:54)
[2021-02-13] MEDS: VITAMIN D 1,000 INTERNATIONAL UNITS TABLET PO SCH (14:54)
[2021-02-13 17:21] VITALS: BP 177/75
[2021-02-13] MEDS: SENOKOT S TAB PO SCH (21:42)
[2021-02-13] MEDS: PRAMIPEXOLE (MIRAPEX) 0.125 MG TAB PO SCH (21:42)
[2021-02-14] MEDS: guaiFENesin SYRUP 200 MG/10 ML UDC PO SCH ×4 (00:49→18:16)
[2021-02-14] MEDS: ALBUTEROL SULFATE 2.5 MG/0.5 ML INH NEB SOLN NEB SCH ×4 (02:03→20:00)
[2021-02-14 03:58] VITALS: BP 162/82
[2021-02-14] MEDS: MIDODRINE 5 MG TAB PO SCH ×3 (08:00→16:00)
[2021-02-14] MEDS: FORMOTEROL FUMARATE 20 MCG/2 ML INHALATION SOLUTION (PERFOROMIST) INH SCH ×2 (08:11→20:26)
[2021-02-14] MEDS: BUDESONIDE 0.5 MG/2 ML INHALATION SUSPENSION INH SCH ×2 (08:11→20:26)
[2021-02-14] MEDS: CALCITRIOL 0.25 MCG CAP (S0169) PO SCH (08:51)
[2021-02-14] MEDS: (RENVELA) SEVELAMER **CARBONate** 800 MG TAB PO SCH ×3 (08:51→18:16)
[2021-02-14] MEDS: PANTOPRAZOLE 40MG TAB (PROTONIX) PO SCH (08:52)
[2021-02-14] MEDS: SERTRALINE 100 MG TAB PO SCH (08:52)
[2021-02-14] MEDS: AMIODARONE 200 MG TAB (PACERONE) PO SCH (08:53)
[2021-02-14] MEDS: levETIRAcetam 250MG TABLET (KEPPRA) PO SCH (08:53)
[2021-02-14] MEDS: VITAMIN D 1,000 INTERNATIONAL UNITS TABLET PO SCH (08:54)
[2021-02-14] MEDS: DIMETHICONE 2% OINTMENT(VANICREAM) 70GM TUBE TOP SCH ×2 (08:54→21:46)
[2021-02-14] MEDS: clonazePAM 0.5 MG TAB PO PRN (21:44)
[2021-02-14] MEDS: SENOKOT S TAB PO SCH (21:44)
[2021-02-14] MEDS: PRAMIPEXOLE (MIRAPEX) 0.125 MG TAB PO SCH (21:45)
[2021-02-14] MEDS: oxyCODONE 5MG TAB PO PRN (21:45)
[2021-02-15] MEDS: guaiFENesin SYRUP 200 MG/10 ML UDC PO SCH ×4 (00:45→18:22)
[2021-02-15] MEDS: ALBUTEROL SULFATE 2.5 MG/0.5 ML INH NEB SOLN NEB PRN (01:00)
[2021-02-15 06:00] VITALS: BP 176/80
[2021-02-15] MEDS ORDERED: LIDOCAINE 1% SDV 5ML VIAL SC PRN (06:00)
[2021-02-15] MEDS: oxyCODONE 5MG TAB PO PRN ×2 (06:45→14:51)
[2021-02-15] MEDS: clonazePAM 0.5 MG TAB PO PRN (06:45)
[2021-02-15] MEDS: FORMOTEROL FUMARATE 20 MCG/2 ML INHALATION SOLUTION (PERFOROMIST) INH SCH ×2 (07:46→20:33)
[2021-02-15] MEDS: ALBUTEROL SULFATE 2.5 MG/0.5 ML INH NEB SOLN NEB SCH ×4 (07:46→20:33)
[2021-02-15] MEDS: BUDESONIDE 0.5 MG/2 ML INHALATION SUSPENSION INH SCH ×2 (07:46→20:33)
[2021-02-15] MEDS: (RENVELA) SEVELAMER **CARBONate** 800 MG TAB PO SCH ×3 (08:00→18:22)
[2021-02-15] MEDS: MIDODRINE 5 MG TAB PO SCH ×3 (08:00→16:00)
--- NOTE | 2021-02-15 11:50 | IPNPDOC ---
Subjective General Date/Time Seen The patient was seen on 02/15/21 at 11:46. Subject Chief Complaint/History The patient is a 50-year-old male admitted with a reason for visit of Chronic Resp Failure S/P Trach Tube Replacement. SUBJECTIVE: Mr. Richard was seen and examined at the bedside in dialysis this morning. He complains of some pain in his R flank that has been ongoing for a few days now. No issues reported overnight. He is tolerating dialysis well. OBJECTIVE: PHYSICAL EXAMINATION: VITAL SIGNS: see below GENERAL: morbidly obese, laying flat in bed, alert and oriented, in no apparent distress HEENT: PERRL, EOMI, Oral mucous membranes are moist without lesions. NECK: Trach collar in place. The patient has no noted JVD. No adenopathy is appreciated. No thyromegaly CHEST/LUNGS: Lungs are clear bilaterally without rhonchi, rales, or wheezes. There is no subcutaneous air appreciated. There is no tenderness to the chest wall. HEART: Regular rate and rhythm. No murmurs, rubs, or gallops are appreciated. Distal pulses are 2+. No carotid bruits appreciated. ABDOMEN: morbidly obese, Soft, tender to deep palpation in the R flank, and nondistended. Bowel sounds are positive. No organomegaly is appreciated. No masses are appreciated. There are no peritoneal signs. There is no [place] sign. EXTREMITIES: R arm AV fistula with good bruit, No peripheral edema noted SKIN: The patients skin is warm and dry, without rashes or lesions. PSYCHIATRIC: normal mood/affect NEUROLOGIC: Bilateral boots in place, bilateral lower extremity plegia is noted IMAGING: No new imaging ASSESSMENT: This is a 50 YO M with history of ESRD on HD, chronic hypoxic/hypercapnic resp failure with trach currently pending shelter placement. PLAN: 1. ESRD on HD T/T/S: -HD today -Will order labs for next HD treatment, 02/18 2. Anemia of ESRD: -Hgb last checked at 10.0, stable -Continue Aranesp with HD 3. Hyperphosphatemia of ESRD: -Continue phosphate binders (Renvela) with meals 4. Chronic respiratory failure, on trach collar: -Stable 5. Hypotension: BP 130s-140s systolic -Continue Midodrine 6. Secondary hyperparathyroidism of ESRD: -Calcium 8.6 -Continue Calcitriol DISPO: Continue HD, Pending placement Current Medications Current Medications Current Medications Medications (Trade) Dose Ordered Sig/Alicia Route PRN Reason Start Time Stop Time Status Last Admin Dose Admin Acetaminophen (Tylenol Tab) 650 mg Q4HP PRN PO PAIN / FEVER 10/10/20 21:00 02/12/21 05:20 Acetaminophen (Tylenol Tab) 650 mg Q6HP PRN PO PAIN / FEVER 06/13/20 04:45 10/10/20 20:58 DC 10/10/20 17:12 Acetylcysteine (Mucomyst 10 % (100mg/ml)) 400 mg RBID INH 10/16/20 08:00 10/28/20 09:59 DC 10/28/20 07:08 Acetylcysteine (Mucomyst 20% (200mg/ml)) 400 mg RBID INH 10/28/20 20:00 12/15/20 08:41 DC 12/14/20 19:23 Albuterol Sulfate (Proventil Neb) 2.5 mg Q2HP PRN NEB SOB/WHEEZING 10/16/20 11:30 12/21/20 08:28 DC 12/21/20 03:34 Albuterol Sulfate (Proventil Neb) 2.5 mg RQ4H PRN NEB SOB/WHEEZING 12/21/20 08:25 02/15/21 01:00 Albuterol Sulfate (Proventil Neb) 2.5 mg RQID NEB 10/16/20 12:00 02/15/21 07:46 Albuterol/ Ipratropium (Duoneb (Ipr 0.5mg/Alb 2.5mg)) 3 ml Q2H PRN NEB SHORTNESS OF BREATH 06/11/20 19:45 10/16/20 11:16 DC 10/15/20 16:52 Albuterol/ Ipratropium (Duoneb (Ipr 0.5mg/Alb 2.5mg)) 3 ml Q6H PRN NEB SOB/WHEEZING 06/11/20 19:45 06/11/20 19:45 DC Albuterol/ Ipratropium (Duoneb (Ipr 0.5mg/Alb 2.5mg)) 3 ml RQ4H NEB 07/25/20 16:00 10/16/20 11:16 DC 10/16/20 08:46 Albuterol/ Ipratropium (Duoneb (Ipr 0.5mg/Alb 2.5mg)) 3 ml RQ6H NEB 12/13/20 14:00 12/21/20 08:28 DC 12/21/20 01:03 Albuterol/ Ipratropium (Duoneb (Ipr 0.5mg/Alb 2.5mg)) 3 ml RQ6H NEB 06/11/20 20:00 07/25/20 15:32 DC 07/25/20 13:55 Alprazolam (Xanax) 0.25 mg Q6H PRN PO ANXIETY 06/11/20 19:45 10/13/20 13:17 DC 10/12/20 21:31 Amiodarone HCl (Pacerone, Cordarone) 200 mg DAILY PO 06/12/20 09:00 02/14/21 08:53 Amlodipine Besylate (Norvasc) 5 mg DAILY PO 10/06/20 09:00 10/08/20 18:19 DC 10/08/20 08:19 Amlodipine Besylate (Norvasc) 10 mg DAILY PO 08/29/20 09:00 10/05/20 18:17 DC 10/05/20 06:06 Azithromycin 500 mg/IV Miscellaneous Supplies 1 each/ Dextrose 255 ml @ 255 mls/hr Q24H IV 12/13/20 22:00 12/13/20 22:12 DC Benzonatate (Tessalon Perles) 100 mg Q8HP PRN PO COUGH 06/13/20 01:15 12/02/20 10:56 DC 06/13/20 12:18 Bisacodyl (Dulcolax Suppository) 10 mg DAILYPRN PRN [place] CONSTIPATION 06/11/20 19:45 06/15/20 16:46 DC Bisacodyl (Dulcolax Tab) 5 mg DAILY PO 06/16/20 09:00 08/04/20 17:40 DC 08/04/20 10:46 Budesonide (Pulmicort) 0.5 mg RBID INH 12/21/20 08:00 02/15/21 07:46 Calcitriol (Rocaltrol) 0.25 mcg MoTuWeThFr@0900 PO 02/06/21 09:00 02/14/21 08:51 Calcitriol (Rocaltrol) 0.25 mcg Q48H PO 12/25/20 09:00 02/05/21 10:28 DC 02/05/21 09:46 Carbamide Peroxide (Debrox) 3 drop BID 06/12/20 21:00 06/16/20 09:01 DC 06/13/20 12:17 Carbamide Peroxide (Debrox) 5 drop BID AU 01/18/21 09:00 01/21/21 21:01 DC 01/21/21 20:41 Ceftriaxone Sodium 2 gm/ Dextrose 50 ml @ 100 mls/hr Q24H IV 12/13/20 21:00 12/14/20 12:03 DC 12/13/20 20:36 Clonazepam (KlonoPIN) 0.25 mg Q6HP PRN PO anxiety 10/13/20 13:15 10/20/20 13:14 DC 10/19/20 22:24 Clonazepam (KlonoPIN) 0.25 mg Q6HP PRN PO ANXIETY 10/20/20 21:00 12/25/20 12:17 DC 12/25/20 09:08 Clonazepam (KlonoPIN) 0.5 mg Q8HP PRN PO ANXIETY 12/25/20 13:00 12/25/20 14:24 DC Clonazepam (KlonoPIN) 0.5 mg Q8HP PRN PO ANXIETY 12/25/20 18:45 02/15/21 06:45 Cod Liver Oil/ Zinc Oxide (Desitin) 1 dose BID TOP 12/24/20 21:00 12/25/20 13:48 DC 12/25/20 08:58 COVID-19 Vacc mRNA LNP-S (MOD) (PF) (Moderna Covid19 Vacc(Unapprov)) 100 mcg ASDIRECTED PRN IM COVID Vaccination 12/19/20 05:00 12/19/20 14:00 DC 12/19/20 14:00 Darbepoetin Jairo (Aranesp (Dialysis Use)) 100 mcg HD IV 01/16/21 10:00 02/08/21 16:03 DC 02/06/21 09:50 Darbepoetin Jairo (Aranesp (Dialysis Use)) 100 mcg HD IV 08/06/20 11:45 09/03/20 07:41 DC Darbepoetin Jairo (Aranesp (Dialysis Use)) 100 mcg HD IV 09/03/20 07:30 09/16/20 08:11 DC 09/10/20 09:01 Darbepoetin Jairo (Aranesp (Dialysis Use)) 200 mcg HD IV 11/19/20 12:30 01/09/21 09:57 DC 01/02/21 10:42 Darbepoetin Jairo (Aranesp (Dialysis Use)) 200 mcg HD IV 10/31/20 10:30 11/19/20 12:25 DC 11/13/20 11:56 Darbepoetin Jairo (Aranesp (Dialysis Use)) 200 mcg HD IV 01/09/21 10:00 01/16/21 09:59 DC 01/09/21 11:48 Darbepoetin Jairo (Aranesp (Dialysis Use)) 200 mcg HD IV 02/08/21 16:05 02/13/21 11:21 Darbepoetin Jairo (Aranesp (Dialysis Use)) 200 mcg HD IV 10/08/20 18:30 10/31/20 10:17 DC 10/24/20 10:47 Dimethicone (Vanicream Ointment) 1 dose BID TOP 11/27/20 09:00 02/14/21 21:46 Diphenhydramine HCl (Benadryl) 50 mg ONCE PRN IV ALLERGIC REACTION 12/19/20 13:40 12/19/20 23:59 DC Emollient Cream (Vanicream) to bilateral lo... DAILY TOP 08/05/20 09:00 09/09/20 11:17 DC 09/08/20 09:44 Emollient Cream (Vanicream) to bilateral lo... DAILY PRN TOP DRY SKIN 09/09/20 11:15 11/27/20 13:12 DC 09/28/20 22:12 Epinephrine HCl (Adrenalin) 0.3 mg ONCE PRN IM ALLERGIC REACTION 12/19/20 13:45 12/19/20 23:59 DC Erythromycin (Ilotycin) 1 CM RIBBON TID OU 11/20/20 16:00 11/27/20 16:00 DC 11/27/20 16:49 Fentanyl Citrate (Sublimaze) 25 mcg Q5MP PRN IV PAIN LEVEL 5-10 11/08/20 13:00 11/08/20 14:00 DC Formoterol Fumarate (Perforomist) 20 mcg RBID INH 12/21/20 08:00 02/15/21 07:46 Guaifenesin (Robitussin) 5 ml Q6H PO 07/28/20 12:00 02/15/21 06:44 Heparin Sodium (Heparin (Flush)) 200 units ASDIRECTED PRN IV SEE LABEL COMMENTS 06/11/20 19:45 06/11/20 19:49 DC Heparin Sodium (Heparin (Flush)) 200 units ASDIRECTED PRN IV SEE LABEL COMMENTS 06/11/20 19:45 06/20/20 18:55 DC 06/20/20 06:42 Heparin Sodium (Heparin (Flush)) 200 units PICC IV 06/12/20 06:00 06/11/20 19:48 DC Heparin Sodium (Heparin (Flush)) 200 units PICC IV 06/12/20 06:00 06/20/20 18:55 DC 06/20/20 06:41 Heparin Sodium (Heparin) 9,000 units ASDIRECTED XX 10/03/20 10:55 10/04/20 09:29 DC Heparin Sodium (Heparin) 9,000 units ASDIRECTED XX 09/26/20 13:04 09/27/20 07:14 DC Heparin Sodium (Heparin) Please refer to ... ASDIRECTED XX 11/05/20 08:00 11/06/20 07:59 DC Heparin Sodium (Heparin) Please refer to ... ASDIRECTED XX 11/07/20 08:00 11/08/20 07:59 DC Heparin Sodium (Heparin) Please refer to ... ASDIRECTED XX 11/09/20 08:00 11/10/20 07:59 DC Heparin Sodium (Heparin) Please refer to ... ASDIRECTED XX 11/11/20 08:30 11/12/20 08:29 DC Heparin Sodium (Heparin) Please refer to ... ASDIRECTED XX 11/13/20 12:45 11/14/20 12:44 DC Heparin Sodium (Heparin) Please refer to ... ASDIRECTED XX 11/15/20 10:00 11/16/20 09:59 DC Heparin Sodium (Heparin) Please refer to ... ASDIRECTED XX 10/28/20 12:45 10/29/20 12:44 DC Heparin Sodium (Heparin) Please refer to ... ASDIRECTED XX 10/29/20 12:00 10/30/20 11:59 DC Heparin Sodium (Heparin) Please refer to ... ASDIRECTED XX 10/30/20 22:45 10/31/20 22:44 DC Heparin Sodium (Heparin) Please refer to ... ASDIRECTED XX 11/02/20 08:00 11/03/20 07:59 DC Heparin Sodium (Heparin) Please refer to ... ASDIRECTED XX 11/25/20 08:00 11/26/20 07:59 DC Heparin Sodium (Heparin) Please refer to ... ASDIRECTED XX 12/05/20 10:15 12/06/20 10:14 DC Heparin Sodium (Heparin) Please refer to ... ASDIRECTED XX 12/07/20 09:00 12/08/20 08:59 DC Heparin Sodium (Heparin) Please refer to ... ASDIRECTED XX 12/14/20 07:00 12/15/20 06:59 DC Heparin Sodium (Heparin) Please refer to ... ASDIRECTED XX 12/17/20 07:00 12/18/20 06:59 DC Heparin Sodium (Heparin) Please refer to ... ASDIRECTED XX 12/19/20 07:00 12/20/20 06:59 DC Heparin Sodium (Heparin) Please refer to ... ASDIRECTED XX 12/21/20 09:00 12/22/20 08:59 DC Heparin Sodium (Heparin) Please refer to ... ASDIRECTED XX 11/27/20 10:30 11/28/20 10:29 DC Heparin Sodium (Heparin) Please refer to ... ASDIRECTED XX 11/30/20 07:00 12/01/20 06:59 DC Heparin Sodium (Heparin) Please refer to ... ASDIRECTED XX 12/03/20 07:45 12/04/20 07:44 DC Heparin Sodium (Heparin) Please refer to ... ASDIRECTED XX 12/23/20 14:10 12/24/20 14:09 Cancel Heparin Sodium (Heparin) Please refer to ... ASDIRECTED XX 01/04/21 05:45 01/05/21 05:44 DC Heparin Sodium (Heparin) Please refer to ... ASDIRECTED XX 01/05/21 11:10 01/06/21 11:09 DC Heparin Sodium (Heparin) Please refer to ... ASDIRECTED XX 01/07/21 07:45 01/08/21 07:44 DC Heparin Sodium (Heparin) Please refer to ... ASDIRECTED XX 01/09/21 06:00 01/10/21 05:59 DC Heparin Sodium (Heparin) Please refer to ... ASDIRECTED XX 01/10/21 20:10 01/11/21 20:09 DC Heparin Sodium (Heparin) Please refer to ... ASDIRECTED XX 12/24/20 08:00 12/25/20 07:59 DC Heparin Sodium (Heparin) Please refer to ... ASDIRECTED XX 12/26/20 08:20 12/27/20 08:19 DC Heparin Sodium (Heparin) Please refer to ... ASDIRECTED XX 02/04/21 09:40 02/05/21 09:39 DC Heparin Sodium (Heparin) Please refer to ... ASDIRECTED XX 02/06/21 08:30 02/07/21 08:29 DC Heparin Sodium (Heparin) Please refer to ... ASDIRECTED XX 02/15/21 06:00 02/16/21 05:59 Heparin Sodium (Heparin) Please refer to ... ASDIRECTED XX 01/25/21 07:10 01/26/21 07:09 DC Heparin Sodium (Heparin) Please refer to ... ASDIRECTED XX 01/28/21 07:10 01/29/21 07:09 DC Heparin Sodium (Heparin) Please refer to ... ASDIRECTED XX 01/30/21 07:00 01/31/21 06:59 DC Heparin Sodium (Heparin) Please refer to ... ASDIRECTED XX 01/31/21 22:15 02/01/21 22:14 DC Heparin Sodium (Heparin) Please refer to ... ASDIRECTED XX 09/20/20 17:45 09/21/20 17:44 DC Heparin Sodium (Heparin) Please refer to ... ASDIRECTED XX 09/24/20 07:15 09/25/20 07:14 DC Heparin Sodium (Heparin) Please refer to ... ASDIRECTED XX 10/03/20 09:30 10/03/20 10:55 DC Heparin Sodium (Heparin) Please refer to ... ASDIRECTED XX 10/12/20 08:00 10/13/20 07:59 DC Heparin Sodium (Heparin) Please refer to ... ASDIRECTED XX 10/15/20 08:00 10/16/20 07:59 DC Heparin Sodium (Heparin) Please refer to ... ASDIRECTED XX 10/17/20 10:00 10/18/20 09:59 DC Heparin Sodium (Heparin) Please refer to ... ASDIRECTED XX 10/19/20 08:00 10/20/20 07:59 DC Heparin Sodium (Heparin) Please refer to ... ASDIRECTED XX 09/26/20 07:15 09/26/20 13:04 DC Heparin Sodium (Heparin) Please refer to ... ASDIRECTED XX 09/28/20 07:45 09/29/20 07:44 DC Heparin Sodium (Heparin) dose as per volume indica... ASDIRECTED PRN IV SEE LABEL COMMENTS 11/05/20 08:00 11/05/20 11:59 DC Heparin Sodium (Heparin) dose as per volume indica... ASDIRECTED PRN IV SEE LABEL COMMENTS 11/07/20 08:00 11/07/20 20:59 DC Heparin Sodium (Heparin) dose as per volume indica... ASDIRECTED PRN IV SEE LABEL COMMENTS 11/09/20 08:00 11/09/20 21:59 DC Heparin Sodium (Heparin) dose as per volume indica... ASDIRECTED PRN IV SEE LABEL COMMENTS 11/02/20 08:00 11/02/20 20:14 DC Heparin Sodium (Heparin) dose as per volume indica... ASDIRECTED PRN IV SEE LABEL COMMENTS 11/25/20 08:00 11/25/20 20:44 DC Heparin Sodium (Heparin) dose as per volume indica... ASDIRECTED PRN IV SEE LABEL COMMENTS 09/04/20 11:30 09/05/20 08:25 DC Heparin Sodium (Heparin) dose as per volume indica... ASDIRECTED PRN IV SEE LABEL COMMENTS 09/04/20 11:30 09/05/20 08:25 DC Heparin Sodium (Porcine) (Heparin) 5,000 units BID SQ 10/23/20 09:00 01/05/21 13:45 DC 01/05/21 08:56 Heparin Sodium (Porcine) (Heparin) 5,000 units Q8H SQ 06/11/20 22:00 06/13/20 15:19 DC 06/13/20 12:17 Heparin Sodium (Porcine) (Heparin) 5,000 units Q8H SQ 07/25/20 22:00 10/22/20 22:18 DC 10/22/20 21:21 Home Med (Med Rec Complete!) ASDIRECTED XX 06/12/20 10:15 06/12/20 10:08 DC Hydralazine HCl (Apresoline) 10 mg Q6H PRN PO SBP>170 06/11/20 19:45 08/06/20 11:39 DC 06/19/20 22:01 Iron (Venofer) 100 mg HD IV 11/13/20 12:30 11/25/20 10:02 DC 11/22/20 10:43 Iron (Venofer) 100 mg HD IV 07/11/20 11:30 08/27/20 13:16 DC Lactated Ringer's 1,000 ml @ 100 mls/hr Q10H IV 11/08/20 13:00 11/08/20 14:00 DC Lactated Ringer's 1,000 ml @ 100 mls/hr Q10H IV 01/01/21 14:50 01/01/21 15:50 DC Levetiracetam (Keppra) 500 mg DAILY PO 06/12/20 09:00 02/14/21 08:53 Lidocaine (Lidoderm Patch) 1 patch DAILY TD 06/12/20 09:00 09/09/20 11:57 DC 07/13/20 06:43 Lidocaine (Lidoderm Patch) 1 patch DAILY PRN TD BACK PAIN 09/09/20 12:00 09/09/20 14:17 DC Lidocaine HCl (Lidocaine 1% Sdv) 0.5 ml ASDIRECTED PRN SC SEE LABEL COMMENTS 11/05/20 08:00 11/05/20 11:59 DC Lidocaine HCl (Lidocaine 1% Sdv) 0.5 ml ASDIRECTED PRN SC SEE LABEL COMMENTS 11/07/20 08:00 11/07/20 20:59 DC Lidocaine HCl (Lidocaine 1% Sdv) 0.5 ml ASDIRECTED PRN SC SEE LABEL COMMENTS 11/09/20 08:00 11/09/20 21:59 DC Lidocaine HCl (Lidocaine 1% Sdv) 0.5 ml ASDIRECTED PRN SC SEE LABEL COMMENTS 11/11/20 08:30 11/12/20 08:29 DC Lidocaine HCl (Lidocaine 1% Sdv) 0.5 ml ASDIRECTED PRN SC SEE LABEL COMMENTS 11/13/20 12:45 11/14/20 12:44 DC Lidocaine HCl (Lidocaine 1% Sdv) 0.5 ml ASDIRECTED PRN SC SEE LABEL COMMENTS 11/15/20 10:00 11/16/20 09:59 DC Lidocaine HCl (Lidocaine 1% Sdv) 0.5 ml ASDIRECTED PRN SC SEE LABEL COMMENTS 10/28/20 12:45 10/29/20 12:44 DC Lidocaine HCl (Lidocaine 1% Sdv) 0.5 ml ASDIRECTED PRN SC SEE LABEL COMMENTS 10/29/20 12:00 10/30/20 11:59 DC Lidocaine HCl (Lidocaine 1% Sdv) 0.5 ml ASDIRECTED PRN SC SEE LABEL COMMENTS 10/30/20 22:45 10/31/20 22:44 DC Lidocaine HCl (Lidocaine 1% Sdv) 0.5 ml ASDIRECTED PRN SC SEE LABEL COMMENTS 11/02/20 08:00 11/02/20 20:14 DC Lidocaine HCl (Lidocaine 1% Sdv) 0.5 ml ASDIRECTED PRN SC SEE LABEL COMMENTS 11/25/20 08:00 11/25/20 20:44 DC Lidocaine HCl (Lidocaine 1% Sdv) 0.5 ml ASDIRECTED PRN SC SEE LABEL COMMENTS 12/05/20 10:15 12/06/20 10:14 DC Lidocaine HCl (Lidocaine 1% Sdv) 0.5 ml ASDIRECTED PRN SC SEE LABEL COMMENTS 12/07/20 09:00 12/08/20 08:59 DC Lidocaine HCl (Lidocaine 1% Sdv) 0.5 ml ASDIRECTED PRN SC SEE LABEL COMMENTS 12/14/20 07:00 12/15/20 06:59 DC Lidocaine HCl (Lidocaine 1% Sdv) 0.5 ml ASDIRECTED PRN SC SEE LABEL COMMENTS 12/17/20 07:00 12/17/20 11:14 DC Lidocaine HCl (Lidocaine 1% Sdv) 0.5 ml ASDIRECTED PRN SC SEE LABEL COMMENTS 12/19/20 07:00 12/20/20 06:59 DC Lidocaine HCl (Lidocaine 1% Sdv) 0.5 ml ASDIRECTED PRN SC SEE LABEL COMMENTS 12/21/20 09:00 12/22/20 08:59 DC Lidocaine HCl (Lidocaine 1% Sdv) 0.5 ml ASDIRECTED PRN SC SEE LABEL COMMENTS 11/27/20 10:30 11/28/20 10:29 DC Lidocaine HCl (Lidocaine 1% Sdv) 0.5 ml ASDIRECTED PRN SC SEE LABEL COMMENTS 11/30/20 07:00 11/30/20 09:14 DC Lidocaine HCl (Lidocaine 1% Sdv) 0.5 ml ASDIRECTED PRN SC SEE LABEL COMMENTS 12/03/20 07:45 12/04/20 07:44 DC Lidocaine HCl (Lidocaine 1% Sdv) 0.5 ml ASDIRECTED PRN SC SEE LABEL COMMENTS 12/23/20 14:10 12/24/20 14:09 Cancel Lidocaine HCl (Lidocaine 1% Sdv) 0.5 ml ASDIRECTED PRN SC SEE LABEL COMMENTS 01/04/21 05:45 01/05/21 05:44 DC Lidocaine HCl (Lidocaine 1% Sdv) 0.5 ml ASDIRECTED PRN SC SEE LABEL COMMENTS 01/07/21 07:45 01/08/21 07:44 DC Lidocaine HCl (Lidocaine 1% Sdv) 0.5 ml ASDIRECTED PRN SC SEE LABEL COMMENTS 01/09/21 06:00 01/09/21 23:04 DC Lidocaine HCl (Lidocaine 1% Sdv) 0.5 ml ASDIRECTED PRN SC SEE LABEL COMMENTS 01/10/21 20:10 01/11/21 20:09 DC Lidocaine HCl (Lidocaine 1% Sdv) 0.5 ml ASDIRECTED PRN SC SEE LABEL COMMENTS 12/24/20 08:00 12/25/20 07:59 DC Lidocaine HCl (Lidocaine 1% Sdv) 0.5 ml ASDIRECTED PRN SC SEE LABEL COMMENTS 12/26/20 08:20 12/27/20 08:19 DC Lidocaine HCl (Lidocaine 1% Sdv) 0.5 ml ASDIRECTED PRN SC SEE LABEL COMMENTS 02/04/21 09:40 02/05/21 09:39 DC Lidocaine HCl (Lidocaine 1% Sdv) 0.5 ml ASDIRECTED PRN SC SEE LABEL COMMENTS 02/06/21 08:30 02/07/21 08:29 DC Lidocaine HCl (Lidocaine 1% Sdv) 0.5 ml ASDIRECTED PRN SC SEE LABEL COMMENTS 02/15/21 06:00 02/15/21 15:49 Lidocaine HCl (Lidocaine 1% Sdv) 0.5 ml ASDIRECTED PRN SC SEE LABEL COMMENTS 01/25/21 07:10 01/26/21 07:09 DC Lidocaine HCl (Lidocaine 1% Sdv) 0.5 ml ASDIRECTED PRN SC SEE LABEL COMMENTS 01/28/21 07:10 01/29/21 07:09 DC Lidocaine HCl (Lidocaine 1% Sdv) 0.5 ml ASDIRECTED PRN SC SEE LABEL COMMENTS 01/30/21 07:00 01/31/21 06:59 DC Lidocaine HCl (Lidocaine 1% Sdv) 0.5 ml ASDIRECTED PRN SC SEE LABEL COMMENTS 01/31/21 22:15 02/01/21 22:14 DC Lidocaine HCl (Lidocaine 1% Sdv) 0.5 ml ASDIRECTED PRN SC SEE LABEL COMMENTS 09/04/20 11:30 09/05/20 08:26 DC Lidocaine HCl (Lidocaine 1% Sdv) 0.5 ml ASDIRECTED PRN SC SEE LABEL COMMENTS 09/04/20 11:30 09/05/20 08:26 DC Lidocaine HCl (Lidocaine 1% Sdv) 0.5 ml ASDIRECTED PRN SC SEE LABEL COMMENTS 09/07/20 07:30 09/08/20 07:29 DC Lidocaine HCl (Lidocaine 1% Sdv) 0.5 ml ASDIRECTED PRN SC SEE LABEL COMMENTS 09/07/20 07:30 09/08/20 07:29 DC Lidocaine HCl (Lidocaine 1% Sdv) 0.5 ml ASDIRECTED PRN SC SEE LABEL COMMENTS 09/21/20 08:00 09/21/20 17:44 DC Lidocaine HCl (Lidocaine 1% Sdv) 0.5 ml ASDIRECTED PRN SC SEE LABEL COMMENTS 09/24/20 07:15 09/25/20 07:14 DC Lidocaine HCl (Lidocaine 1% Sdv) 0.5 ml ASDIRECTED PRN SC SEE LABEL COMMENTS 10/03/20 09:30 10/04/20 09:29 DC Lidocaine HCl (Lidocaine 1% Sdv) 0.5 ml ASDIRECTED PRN SC SEE LABEL COMMENTS 10/12/20 08:00 10/13/20 07:59 DC Lidocaine HCl (Lidocaine 1% Sdv) 0.5 ml ASDIRECTED PRN SC SEE LABEL COMMENTS 10/15/20 08:00 10/15/20 20:59 DC Lidocaine HCl (Lidocaine 1% Sdv) 0.5 ml ASDIRECTED PRN SC SEE LABEL COMMENTS 10/17/20 10:00 10/18/20 09:59 DC Lidocaine HCl (Lidocaine 1% Sdv) 0.5 ml ASDIRECTED PRN SC SEE LABEL COMMENTS 10/19/20 08:00 10/19/20 12:59 DC Lidocaine HCl (Lidocaine 1% Sdv) 0.5 ml ASDIRECTED PRN SC SEE LABEL COMMENTS 09/26/20 07:15 09/27/20 07:14 DC Lidocaine HCl (Lidocaine 1% Sdv) 0.5 ml ASDIRECTED PRN SC SEE LABEL COMMENTS 10/01/20 10:30 10/02/20 10:29 DC Lorazepam (Ativan) 1 mg STAT STAT IV 02/02/21 21:36 02/02/21 21:37 Cancel Methylprednisolone (SOLUmedrol) 60 mg Q12H IV 12/22/20 18:00 12/23/20 11:30 DC 12/23/20 06:23 Methylprednisolone (SOLUmedrol) 60 mg Q6H IV 12/20/20 18:00 12/21/20 10:16 DC 12/21/20 05:59 Methylprednisolone (SOLUmedrol) 60 mg Q8H IV 12/21/20 14:00 12/22/20 07:39 DC 12/22/20 06:21 Midodrine (Proamatine) 5 mg MoWeFr@0900 PO 11/20/20 09:00 12/02/20 09:00 DC 11/30/20 08:29 Midodrine (Proamatine) 5 mg TuThSa@0900 PO 11/05/20 09:00 11/19/20 10:13 DC 11/18/20 08:24 Midodrine (Proamatine) 5 mg TuThSa@0900 PO 12/03/20 09:00 12/25/20 10:04 DC 12/24/20 07:58 Midodrine (Proamatine) 10 mg 08,12,16 PO 12/31/20 12:00 02/13/21 17:21 Midodrine (Proamatine) 10 mg ASDIRECTED PO 06/11/20 20:30 08/31/20 21:12 DC 08/10/20 06:14 Midodrine (Proamatine) 10 mg HD PO 06/11/20 21:00 06/11/20 20:22 DC Miscellaneous (Unresolved Clarification Entry) SEE LABEL COMMENTS DAILY XX 11/24/20 09:00 11/24/20 12:58 DC Miscellaneous (Unresolved Clarification Entry) SEE LABEL COMMENTS DAILY XX 10/29/20 09:00 10/29/20 09:54 DC Miscellaneous (Unresolved Clarification Entry) SEE LABEL COMMENTS DAILY XX 11/01/20 09:00 11/05/20 08:43 DC 11/04/20 08:23 Miscellaneous (Unresolved Clarification Entry) SEE LABEL COMMENTS DAILY XX 01/12/21 09:00 01/12/21 15:30 DC Miscellaneous (Unresolved Clarification Entry) SEE LABEL COMMENTS DAILY XX 02/07/21 09:00 02/07/21 14:40 DC 02/07/21 09:00 Miscellaneous (Unresolved Clarification Entry) SEE LABEL COMMENTS DAILY XX 06/24/20 09:00 06/25/20 12:54 DC Miscellaneous (Unresolved Clarification Entry) SEE LABEL COMMENTS DAILY XX 09/29/20 09:00 09/29/20 12:49 DC Non-Formulary Medication ( See Comment Field Below ) CHECK TO SEE IF THE PATIENT... DAILY@0800 XX 06/27/20 08:00 09/01/20 18:17 DC 08/10/20 06:36 Non-Formulary Medication ( See Comment Field Below ) CHECK TO SEE IF THE PATIENT... DAILY@1600 XX 12/17/20 16:00 12/22/20 23:59 DC 12/21/20 15:21 Non-Formulary Medication ( See Comment Field Below ) REMOVE LIDODERM PATCH DAILY@21 XX 06/11/20 21:00 09/09/20 11:57 DC 09/04/20 21:00 Non-Formulary Medication ( See Comment Field Below ) REMOVE LIDODERM PATCH DAILY@ PRN XX BACK PAIN 09/09/20 12:00 09/09/20 14:17 DC Nystatin (Mycostatin Powder, Nystop) Apply to groin folds BIDP PRN TOP REDNESS/IRRITATION 08/27/20 01:00 09/25/20 01:24 DC Nystatin (Mycostatin Powder, Nystop) apply to groin BID TOP 01/28/21 21:00 02/08/21 16:36 DC 02/07/21 21:08 Nystatin (Mycostatin Powder, Nystop) apply to groin area daily DAILY TOP 11/25/20 09:00 12/25/20 13:48 DC 12/25/20 08:58 Ondansetron HCl (ZOFRAN INJection) 4 mg Q4HP PRN IV NAUSEA OR VOMITING 11/08/20 13:00 11/08/20 14:00 DC Ondansetron HCl (ZOFRAN INJection) 4 mg Q4HP PRN IV NAUSEA OR VOMITING 01/01/21 14:50 01/01/21 15:50 DC Ondansetron HCl (ZOFRAN INJection) 4 mg Q4HP PRN IV NAUSEA OR VOMITING 01/11/21 20:55 01/12/21 20:54 DC Ondansetron HCl (Zofran) 4 mg Q6HP PRN PO NAUSEA OR VOMITING 07/08/20 12:45 01/15/21 04:19 Oxycodone HCl (Roxicodone, Oxyir) 10 mg Q4H PRN PO PAIN 06/11/20 19:45 10/19/20 15:15 DC 10/18/20 22:28 Oxycodone HCl (Roxicodone, Oxyir) 10 mg Q4HP PRN PO SEVERE PAIN (PS 8-10) 10/19/20 22:15 10/20/20 10:15 DC 10/19/20 22:23 Oxycodone HCl (Roxicodone, Oxyir) 10 mg Q4HP PRN PO SEVERE PAIN (PS 8-10) 10/20/20 21:00 10/22/20 22:18 DC 10/22/20 21:20 Oxycodone HCl (Roxicodone, Oxyir) 10 mg Q8HP PRN PO SEVERE PAIN (PS 8-10) 10/22/20 22:30 02/15/21 06:45 Pantoprazole Sodium (Protonix) 40 mg DAILY PO 06/12/20 09:00 02/14/21 08:52 Phenol (Chloraseptic [place]) 1 spray Q2HP PRN MT SORE THROAT 10/09/20 08:45 01/14/21 06:37 Piperacillin Sod/ Tazobactam Sod 2.25 gm/Dextrose 50 ml @ 100 mls/hr Q8H IV 12/14/20 17:00 12/22/20 23:59 DC 12/22/20 17:18 Piperacillin Sod/ Tazobactam Sod 3.375 gm/Dextrose 50 ml @ 50 mls/hr Q6H IV 12/14/20 12:15 UNV Polyethylene Glycol (Miralax) 1 pkt DAILY PRN PO CONSTIPATION 06/11/20 19:45 06/15/20 16:45 DC Polyethylene Glycol (Miralax) 1 pkt DAILYPRN PRN PO CONSTIPATION 08/04/20 17:45 Polymyxin/ Trimethoprim Sulfate (Polytrim Ophth Drops) 1 drop 6XD OU 08/03/20 15:00 08/10/20 12:00 DC 08/10/20 06:13 Pramipexole Dihydrochloride (Mirapex) 0.125 mg QHS PO 06/11/20 21:00 02/14/21 21:45 Prednisone (Deltasone) Taper DAILY PO 12/24/20 09:00 01/02/21 08:59 DC 01/01/21 08:57 Prednisone (Deltasone) 30 mg Taper DAILY PO 12/21/20 09:00 12/20/20 18:32 DC Prednisone (Deltasone) 40 mg DAILY PO 12/14/20 09:00 12/20/20 13:37 DC 12/20/20 09:25 Salmeterol Xinafoate/ Fluticasone (Advair Hfa 115/ 21) 2 puff RBID INH 12/13/20 08:00 12/21/20 08:28 DC 12/20/20 20:12 Senna/Docusate Sodium (Senokot S) 2 tab QHS PO 08/04/20 21:00 02/14/21 21:44 Sertraline HCl (Zoloft) 100 mg DAILY PO 06/12/20 09:00 09/30/20 11:35 DC 09/30/20 09:50 Sertraline HCl (Zoloft) 150 mg DAILY PO 10/01/20 09:00 10/13/20 13:17 DC 10/13/20 10:21 Sertraline HCl (Zoloft) 200 mg DAILY PO 10/14/20 09:00 02/14/21 08:52 Sevelamer Carbonate (Renvela) 2,400 mg WM PO 06/12/20 08:00 11/15/20 16:12 DC 11/15/20 13:15 Sevelamer Carbonate (Renvela) 4,000 mg WM PO 11/15/20 18:00 02/14/21 18:16 Sodium Chloride (Nacl 0.9%) 200 ml ASDIRECTED PRN IV SEE LABEL COMMENTS 11/07/20 08:00 11/08/20 07:59 DC Sodium Chloride (Nacl 0.9%) 200 ml ASDIRECTED PRN IV SEE LABEL COMMENTS 11/09/20 08:00 11/10/20 07:59 DC Sodium Chloride (Nacl 0.9%) 200 ml ASDIRECTED PRN IV SEE LABEL COMMENTS 11/11/20 08:30 11/12/20 08:29 DC Sodium Chloride (Nacl 0.9%) 200 ml ASDIRECTED PRN IV SEE LABEL COMMENTS 11/13/20 12:45 11/14/20 12:44 DC Sodium Chloride (Nacl 0.9%) 200 ml ASDIRECTED PRN IV SEE LABEL COMMENTS 11/15/20 10:00 11/16/20 09:59 DC Sodium Chloride (Nacl 0.9%) 200 ml ASDIRECTED PRN IV SEE LABEL COMMENTS 10/28/20 12:45 10/29/20 12:44 DC Sodium Chloride (Nacl 0.9%) 200 ml ASDIRECTED PRN IV SEE LABEL COMMENTS 10/29/20 12:00 10/30/20 11:59 DC Sodium Chloride (Nacl 0.9%) 200 ml ASDIRECTED PRN IV SEE LABEL COMMENTS 10/30/20 22:45 10/31/20 22:44 DC Sodium Chloride (Nacl 0.9%) 200 ml ASDIRECTED PRN IV SEE LABEL COMMENTS 12/05/20 10:15 12/06/20 10:14 DC Sodium Chloride (Nacl 0.9%) 200 ml ASDIRECTED PRN IV SEE LABEL COMMENTS 12/07/20 09:00 12/08/20 08:59 DC Sodium Chloride (Nacl 0.9%) 200 ml ASDIRECTED PRN IV SEE LABEL COMMENTS 12/14/20 07:00 12/15/20 06:59 DC Sodium Chloride (Nacl 0.9%) 200 ml ASDIRECTED PRN IV SEE LABEL COMMENTS 12/21/20 09:00 12/22/20 08:59 DC Sodium Chloride (Nacl 0.9%) 200 ml ASDIRECTED PRN IV SEE LABEL COMMENTS 12/03/20 07:45 12/04/20 07:44 DC Sodium Chloride (Nacl 0.9%) 200 ml ASDIRECTED PRN IV SEE LABEL COMMENTS 12/23/20 14:10 12/24/20 14:09 Cancel Sodium Chloride (Nacl 0.9%) 200 ml ASDIRECTED PRN IV SEE LABEL COMMENTS 01/04/21 05:45 01/05/21 05:44 DC Sodium Chloride (Nacl 0.9%) 200 ml ASDIRECTED PRN IV SEE LABEL COMMENTS 12/24/20 08:00 12/25/20 07:59 DC Sodium Chloride (Nacl 0.9%) 200 ml ASDIRECTED PRN IV SEE LABEL COMMENTS 12/26/20 08:20 12/27/20 08:19 DC Sodium Chloride (Nacl 0.9%) 200 ml ASDIRECTED PRN IV SEE LABEL COMMENTS 02/04/21 09:40 02/05/21 09:39 DC Sodium Chloride (Nacl 0.9%) 200 ml ASDIRECTED PRN IV SEE LABEL COMMENTS 02/06/21 08:30 02/07/21 08:29 DC Sodium Chloride (Nacl 0.9%) 200 ml ASDIRECTED PRN IV SEE LABEL COMMENTS 09/03/20 07:30 09/05/20 08:26 DC Sodium Chloride (Nacl 0.9%) 200 ml ASDIRECTED PRN IV SEE LABEL COMMENTS 09/04/20 11:30 09/10/20 10:39 DC Sodium Chloride (Nacl 0.9%) 200 ml ASDIRECTED PRN IV SEE LABEL COMMENTS 09/07/20 07:30 09/10/20 10:39 DC Sodium Chloride (Nacl 0.9%) 200 ml ASDIRECTED PRN IV SEE LABEL COMMENTS 09/12/20 08:00 09/24/20 08:57 DC Sodium Chloride (Nacl 0.9%) 200 ml ASDIRECTED PRN IV SEE LABEL COMMENTS 09/24/20 07:15 09/25/20 07:14 DC Sodium Chloride (Nacl 0.9%) 200 ml ASDIRECTED PRN IV SEE LABEL COMMENTS 10/03/20 09:30 10/04/20 09:29 DC Sodium Chloride (Nacl 0.9%) 200 ml ASDIRECTED PRN IV SEE LABEL COMMENTS 10/12/20 08:00 10/13/20 07:59 DC Sodium Chloride (Nacl 0.9%) 200 ml ASDIRECTED PRN IV SEE LABEL COMMENTS 10/15/20 08:00 10/16/20 07:59 DC Sodium Chloride (Nacl 0.9%) 200 ml ASDIRECTED PRN IV SEE LABEL COMMENTS 10/17/20 10:00 10/18/20 09:59 DC Sodium Chloride (Nacl 0.9%) 200 ml ASDIRECTED PRN IV SEE LABEL COMMENTS 09/26/20 07:15 09/27/20 07:14 DC Sodium Chloride (Nacl 0.9%) 200 ml ASDIRECTED PRN IV SEE LABEL COMMENTS 09/28/20 07:45 09/29/20 07:44 DC Sodium Chloride (Nacl 0.9%) 200 ml ASDIRECTED PRN IV SEE LABEL COMMENTS 10/01/20 10:30 10/02/20 10:29 DC Sodium Chloride (Saline Lock Flush) 10 ml ASDIRECTED PRN IV SEE LABEL COMMENTS 06/11/20 19:45 06/11/20 19:50 DC Sodium Chloride (Saline Lock Flush) 10 ml ASDIRECTED PRN IV SEE LABEL COMMENTS 06/11/20 19:45 06/20/20 18:55 DC 06/20/20 06:41 Sodium Chloride (Saline Lock Flush) 10 ml PICC IV 06/12/20 06:00 06/11/20 19:49 DC Sodium Chloride (Saline Lock Flush) 10 ml PICC IV 06/12/20 06:00 06/20/20 18:55 DC 06/20/20 06:41 Sucroferric Oxyhydroxide (Velphoro) 500 mg WM PO 11/11/20 18:00 11/15/20 16:12 DC 11/12/20 17:52 Sucroferric Oxyhydroxide (Velphoro) 500 mg WM PO 9/17/20 12:30 09/21/20 12:33 DC 09/15/20 18:12 Vancomycin HCl 1000 mg/IV Miscellaneous Supplies 1 each/ Dextrose 270 ml @ 270 mls/hr HD IV 12/17/20 09:00 12/20/20 10:00 DC 12/19/20 15:55 Vancomycin HCl 1000 mg/IV Miscellaneous Supplies 1 each/ Dextrose 270 ml @ 270 mls/hr Q12H IV 12/14/20 12:00 UNV Vancomycin HCl 1000 mg/IV Miscellaneous Supplies 1 each/ Sodium Chloride 270 ml @ 270 mls/hr HD IV 12/20/20 10:05 12/22/20 23:59 DC 12/21/20 15:19 Vitamin D (Vitamin D) 2,000 units DAILY PO 12/03/20 09:00 02/14/21 08:54 Zinc Oxide (Boudreauxs Butt Paste) 1 dose BID TOP 11/28/20 09:00 12/24/20 16:02 DC 12/24/20 08:00 Allergies Coded Allergies: moxifloxacin (Verified Allergy, Intermediate, RASH, 12/25/19) codeine (Verified Allergy, Unknown, 12/25/19) valsartan (Verified Allergy, Unknown, 12/25/19) VS,Fishbone, I+O VS, Fishbone, I+O Vital Signs Date Time Temp Pulse Resp B/P (MAP) Pulse Ox O2 Delivery O2 Flow Rate FiO2 02/15/21 06:45 18 02/15/21 06:00 96.2 80 176/80 (112) 95 Trach Collar 02/14/21 20:00 5.0 28 I&O- Last 24 Hours up to 6 AM 02/15/21 05:59 Intake Total 1460 ml Balance 1460 ml GME ATTESTATION GME ATTESTATION My faculty preceptor for this patient encounter was physically present during the encounter and was fully available. All aspects of the patient interview, examination, medical decision making process, and medical care plan development were reviewed and approved by the faculty preceptor. The faculty preceptor is aware and concurs with the plan as stated in the body of this note and will attest to such by his/her cosignature. Attending Note Attending Note Seen during HD. Tolerating HD well. ESRD on HD Morbid obesity and chronic resp failure, trach dependent Anemia in ESRD Rt abdominal wall edema Chronic hypotension. Hyperphosphatemia HD today with UF goal 3.5Kg. Cont BRIAN. Fluid restriction. Pt is non compliant with PO4 binders. ANKIT MULLEN MD Feb 15, 2021 11:50 FENG GIRALDO MD Feb 16, 2021 12:38
[2021-02-15] MEDS: SERTRALINE 100 MG TAB PO SCH (13:58)
[2021-02-15] MEDS: levETIRAcetam 250MG TABLET (KEPPRA) PO SCH (13:58)
[2021-02-15] MEDS: PANTOPRAZOLE 40MG TAB (PROTONIX) PO SCH (13:58)
[2021-02-15] MEDS: AMIODARONE 200 MG TAB (PACERONE) PO SCH (13:58)
[2021-02-15] MEDS: VITAMIN D 1,000 INTERNATIONAL UNITS TABLET PO SCH (13:59)
[2021-02-15] MEDS: DIMETHICONE 2% OINTMENT(VANICREAM) 70GM TUBE TOP SCH ×2 (14:00→20:38)
[2021-02-15 17:00] VITALS: BP 133/63
[2021-02-15] MEDS: SENOKOT S TAB PO SCH (20:38)
[2021-02-15] MEDS: PRAMIPEXOLE (MIRAPEX) 0.125 MG TAB PO SCH (20:38)
[2021-02-16] MEDS: guaiFENesin SYRUP 200 MG/10 ML UDC PO SCH ×4 (00:50→18:23)
[2021-02-16] MEDS: ALBUTEROL SULFATE 2.5 MG/0.5 ML INH NEB SOLN NEB PRN (01:16)
[2021-02-16 06:00] VITALS: BP 152/72
[2021-02-16] MEDS: MIDODRINE 5 MG TAB PO SCH ×3 (07:56→16:00)
[2021-02-16] MEDS: BUDESONIDE 0.5 MG/2 ML INHALATION SUSPENSION INH SCH ×2 (07:56→21:03)
[2021-02-16] MEDS: ALBUTEROL SULFATE 2.5 MG/0.5 ML INH NEB SOLN NEB SCH ×4 (07:56→21:03)
[2021-02-16] MEDS: FORMOTEROL FUMARATE 20 MCG/2 ML INHALATION SOLUTION (PERFOROMIST) INH SCH ×2 (07:56→21:03)
[2021-02-16] MEDS: (RENVELA) SEVELAMER **CARBONate** 800 MG TAB PO SCH ×3 (09:13→18:23)
[2021-02-16] MEDS: VITAMIN D 1,000 INTERNATIONAL UNITS TABLET PO SCH (09:14)
[2021-02-16] MEDS: levETIRAcetam 250MG TABLET (KEPPRA) PO SCH (09:14)
[2021-02-16] MEDS: clonazePAM 0.5 MG TAB PO PRN ×2 (09:14→20:55)
[2021-02-16] MEDS: AMIODARONE 200 MG TAB (PACERONE) PO SCH (09:15)
[2021-02-16] MEDS: oxyCODONE 5MG TAB PO PRN ×2 (09:15→20:58)
[2021-02-16] MEDS: PANTOPRAZOLE 40MG TAB (PROTONIX) PO SCH (09:15)
[2021-02-16] MEDS: SERTRALINE 100 MG TAB PO SCH (09:16)
[2021-02-16] MEDS: DIMETHICONE 2% OINTMENT(VANICREAM) 70GM TUBE TOP SCH ×2 (09:16→20:49)
[2021-02-16] MEDS: PRAMIPEXOLE (MIRAPEX) 0.125 MG TAB PO SCH (20:49)
[2021-02-16] MEDS: SENOKOT S TAB PO SCH (20:49)
[2021-02-16 21:04] VITALS: O2SAT 99
[2021-02-17] MEDS: ALBUTEROL SULFATE 2.5 MG/0.5 ML INH NEB SOLN NEB PRN ×2 (00:14→03:53)
[2021-02-17] MEDS: guaiFENesin SYRUP 200 MG/10 ML UDC PO SCH ×4 (00:16→18:22)
[2021-02-17 06:00] VITALS: BP 154/69
[2021-02-17 07:09] LABS: BASO # 0.1 10^3/uL (0.0-0.2); BASO % 0.6 % (0.0-1.0); EOS # 0.6 10^3/uL (0.0-0.5); EOS % 7.2 % (0.0-3.0); HEMATOCRIT 37.9 % (42.0-52.0); HEMOGLOBIN 10.8 g/dl (13.5-17.5); LYMPH # 2.3 10^3/uL (1.5-5.0); MEAN CORPUSCULAR HEMOGLOBIN 27.5 pg (27.0-33.0); MEAN CORPUSCULAR HGB CONC 28.5 g/dl (32.0-36.5); MEAN CORPUSCULAR VOLUME 96.4 fl (80.0-96.0); MONO # 0.4 10^3/uL (0.0-0.8); MONO % 4.7 % (2.0-8.0); NEUTROPHILS # 5.1 10^3/uL (1.5-8.5); NEUTROPHILS % 60.1 % (36.0-66.0); PLATELET COUNT, AUTOMATED 205 10^3/uL (150-450); RED BLOOD COUNT 3.93 10^6/uL (4.30-6.10); WHITE BLOOD COUNT 8.4 10^3/uL (4.0-10.0)
[2021-02-17 07:23] LABS: CALCIUM LEVEL 9.1 MG/DL (8.5-10.1); CREATININE FOR GFR 5.44 MG/DL (0.70-1.30); POTASSIUM SERUM 4.3 MEQ/L (3.5-5.1)
[2021-02-17] MEDS: ALBUTEROL SULFATE 2.5 MG/0.5 ML INH NEB SOLN NEB SCH ×4 (08:01→19:53)
[2021-02-17] MEDS: BUDESONIDE 0.5 MG/2 ML INHALATION SUSPENSION INH SCH ×2 (08:01→19:53)
[2021-02-17] MEDS: FORMOTEROL FUMARATE 20 MCG/2 ML INHALATION SOLUTION (PERFOROMIST) INH SCH ×2 (08:01→19:53)
[2021-02-17] MEDS: levETIRAcetam 250MG TABLET (KEPPRA) PO SCH (08:25)
[2021-02-17] MEDS: (RENVELA) SEVELAMER **CARBONate** 800 MG TAB PO SCH ×3 (08:25→18:23)
[2021-02-17] MEDS: CALCITRIOL 0.25 MCG CAP (S0169) PO SCH (08:26)
[2021-02-17] MEDS: PANTOPRAZOLE 40MG TAB (PROTONIX) PO SCH (08:26)
[2021-02-17] MEDS: VITAMIN D 1,000 INTERNATIONAL UNITS TABLET PO SCH (08:26)
[2021-02-17] MEDS: SERTRALINE 100 MG TAB PO SCH (08:26)
[2021-02-17] MEDS: MIDODRINE 5 MG TAB PO SCH ×3 (08:26→16:45)
[2021-02-17] MEDS: AMIODARONE 200 MG TAB (PACERONE) PO SCH (08:27)
[2021-02-17] MEDS: DIMETHICONE 2% OINTMENT(VANICREAM) 70GM TUBE TOP SCH ×2 (12:43→21:28)
[2021-02-17 19:53] VITALS: O2SAT 98
[2021-02-17] MEDS: clonazePAM 0.5 MG TAB PO PRN (21:27)
[2021-02-17] MEDS: SENOKOT S TAB PO SCH (21:27)
[2021-02-17] MEDS: oxyCODONE 5MG TAB PO PRN (21:27)
[2021-02-17] MEDS: PRAMIPEXOLE (MIRAPEX) 0.125 MG TAB PO SCH (21:28)
[2021-02-18] MEDS: guaiFENesin SYRUP 200 MG/10 ML UDC PO SCH ×4 (00:29→17:36)
[2021-02-18] MEDS: ALBUTEROL SULFATE 2.5 MG/0.5 ML INH NEB SOLN NEB PRN ×2 (00:42→03:17)
[2021-02-18 06:00] VITALS: BP 156/70
[2021-02-18] MEDS ORDERED: LIDOCAINE 1% SDV 5ML VIAL SC PRN (06:00)
[2021-02-18] MEDS: MIDODRINE 5 MG TAB PO SCH ×3 (06:01→17:38)
[2021-02-18] MEDS: CALCITRIOL 0.25 MCG CAP (S0169) PO SCH (06:10)
[2021-02-18] MEDS: AMIODARONE 200 MG TAB (PACERONE) PO SCH (06:11)
[2021-02-18] MEDS: SERTRALINE 100 MG TAB PO SCH (06:11)
[2021-02-18] MEDS: clonazePAM 0.5 MG TAB PO PRN ×2 (06:11→20:59)
[2021-02-18] MEDS: VITAMIN D 1,000 INTERNATIONAL UNITS TABLET PO SCH (06:11)
[2021-02-18] MEDS: PANTOPRAZOLE 40MG TAB (PROTONIX) PO SCH (06:11)
[2021-02-18] MEDS: oxyCODONE 5MG TAB PO PRN ×2 (06:11→20:58)
[2021-02-18] MEDS: levETIRAcetam 250MG TABLET (KEPPRA) PO SCH (06:11)
[2021-02-18] MEDS: (RENVELA) SEVELAMER **CARBONate** 800 MG TAB PO SCH ×3 (08:00→17:36)
[2021-02-18] MEDS: ALBUTEROL SULFATE 2.5 MG/0.5 ML INH NEB SOLN NEB SCH ×5 (08:00→22:40)
[2021-02-18 08:04] VITALS: BP 138/79
[2021-02-18] MEDS: BUDESONIDE 0.5 MG/2 ML INHALATION SUSPENSION INH SCH ×2 (08:15→19:08)
[2021-02-18] MEDS: FORMOTEROL FUMARATE 20 MCG/2 ML INHALATION SOLUTION (PERFOROMIST) INH SCH ×2 (08:15→19:08)
[2021-02-18] MEDS: DIMETHICONE 2% OINTMENT(VANICREAM) 70GM TUBE TOP SCH ×2 (09:00→20:59)
[2021-02-18] MEDS: NYSTATIN 100,000 UNITS/GM TOPICAL PWD 15 GM TOP SCH ×2 (09:00→20:58)
--- NOTE | 2021-02-18 11:58 | IPNPDOC ---
Subjective General Date/Time Seen The patient was seen on 02/18/21 at 11:55. Subject Chief Complaint/History The patient is a 50-year-old male admitted with a reason for visit of Chronic Resp Failure S/P Trach Tube Replacement. SUBJECTIVE: Mr. Richard was seen and examined at the bedside in dialysis this morning. He has no complaints today. No issues reported overnight. He is tolerating dialysis well. OBJECTIVE: PHYSICAL EXAMINATION: VITAL SIGNS: see below GENERAL: morbidly obese, laying flat in bed, alert and oriented, in no apparent distress HEENT: PERRL, EOMI, Oral mucous membranes are moist without lesions. NECK: Trach collar in place. The patient has no noted JVD. No adenopathy is appreciated. No thyromegaly CHEST/LUNGS: Lungs are clear bilaterally without rhonchi, rales, or wheezes. There is no subcutaneous air appreciated. There is no tenderness to the chest wall. HEART: Regular rate and rhythm. No murmurs, rubs, or gallops are appreciated. Distal pulses are 2+. No carotid bruits appreciated. ABDOMEN: morbidly obese, Soft, tender to deep palpation in the R flank with obvious fluid collection, and nondistended. Bowel sounds are positive. No organomegaly is appreciated. No masses are appreciated. There are no peritoneal signs. There is no [place] sign. EXTREMITIES: R arm AV fistula with good bruit, bilateral thigh edema noted SKIN: The patients skin is warm and dry, without rashes or lesions. PSYCHIATRIC: normal mood/affect NEUROLOGIC: Bilateral boots in place, bilateral lower extremity plegia is noted IMAGING: No new imaging ASSESSMENT: This is a 50 YO M with history of ESRD on HD, chronic hypoxic/hypercapnic resp failure with trach currently pending skilled nursing placement. PLAN: 1. ESRD on HD T/T/S: -HD today 2. Anemia of ESRD: -Hgb last checked at 10.8, stable -Continue Aranesp with HD 3. Hyperphosphatemia of ESRD: -Continue phosphate binders (Renvela) with meals -Patient should be encouraged to be compliant with this medication 4. Chronic respiratory failure, on trach collar: -Stable 5. Hypotension: BP 130s-140s systolic -Continue Midodrine 6. Secondary hyperparathyroidism of ESRD: -Calcium 9.1 -Continue Calcitriol DISPO: Continue HD, Pending placement Current Medications Current Medications Current Medications Medications (Trade) Dose Ordered Sig/Alicia Route PRN Reason Start Time Stop Time Status Last Admin Dose Admin Acetaminophen (Tylenol Tab) 650 mg Q4HP PRN PO PAIN / FEVER 10/10/20 21:00 02/12/21 05:20 Acetaminophen (Tylenol Tab) 650 mg Q6HP PRN PO PAIN / FEVER 06/13/20 04:45 10/10/20 20:58 DC 10/10/20 17:12 Acetylcysteine (Mucomyst 10 % (100mg/ml)) 400 mg RBID INH 10/16/20 08:00 10/28/20 09:59 DC 10/28/20 07:08 Acetylcysteine (Mucomyst 20% (200mg/ml)) 400 mg RBID INH 10/28/20 20:00 12/15/20 08:41 DC 12/14/20 19:23 Albuterol Sulfate (Proventil Neb) 2.5 mg Q2HP PRN NEB SOB/WHEEZING 10/16/20 11:30 12/21/20 08:28 DC 12/21/20 03:34 Albuterol Sulfate (Proventil Neb) 2.5 mg RQ4H PRN NEB SOB/WHEEZING 12/21/20 08:25 02/18/21 03:17 Albuterol Sulfate (Proventil Neb) 2.5 mg RQID NEB 10/16/20 12:00 02/17/21 19:53 Albuterol/ Ipratropium (Duoneb (Ipr 0.5mg/Alb 2.5mg)) 3 ml Q2H PRN NEB SHORTNESS OF BREATH 06/11/20 19:45 10/16/20 11:16 DC 10/15/20 16:52 Albuterol/ Ipratropium (Duoneb (Ipr 0.5mg/Alb 2.5mg)) 3 ml Q6H PRN NEB SOB/WHEEZING 06/11/20 19:45 06/11/20 19:45 DC Albuterol/ Ipratropium (Duoneb (Ipr 0.5mg/Alb 2.5mg)) 3 ml RQ4H NEB 07/25/20 16:00 10/16/20 11:16 DC 10/16/20 08:46 Albuterol/ Ipratropium (Duoneb (Ipr 0.5mg/Alb 2.5mg)) 3 ml RQ6H NEB 12/13/20 14:00 12/21/20 08:28 DC 12/21/20 01:03 Albuterol/ Ipratropium (Duoneb (Ipr 0.5mg/Alb 2.5mg)) 3 ml RQ6H NEB 06/11/20 20:00 07/25/20 15:32 DC 07/25/20 13:55 Alprazolam (Xanax) 0.25 mg Q6H PRN PO ANXIETY 06/11/20 19:45 10/13/20 13:17 DC 10/12/20 21:31 Amiodarone HCl (Pacerone, Cordarone) 200 mg DAILY PO 06/12/20 09:00 02/18/21 06:11 Amlodipine Besylate (Norvasc) 5 mg DAILY PO 10/06/20 09:00 10/08/20 18:19 DC 10/08/20 08:19 Amlodipine Besylate (Norvasc) 10 mg DAILY PO 08/29/20 09:00 10/05/20 18:17 DC 10/05/20 06:06 Azithromycin 500 mg/IV Miscellaneous Supplies 1 each/ Dextrose 255 ml @ 255 mls/hr Q24H IV 12/13/20 22:00 12/13/20 22:12 DC Benzonatate (Tessalon Perles) 100 mg Q8HP PRN PO COUGH 06/13/20 01:15 12/02/20 10:56 DC 06/13/20 12:18 Bisacodyl (Dulcolax Suppository) 10 mg DAILYPRN PRN [place] CONSTIPATION 06/11/20 19:45 06/15/20 16:46 DC Bisacodyl (Dulcolax Tab) 5 mg DAILY PO 06/16/20 09:00 08/04/20 17:40 DC 08/04/20 10:46 Budesonide (Pulmicort) 0.5 mg RBID INH 12/21/20 08:00 02/18/21 08:15 Calcitriol (Rocaltrol) 0.25 mcg MoTuWeThFr@0900 PO 02/06/21 09:00 02/18/21 06:10 Calcitriol (Rocaltrol) 0.25 mcg Q48H PO 12/25/20 09:00 02/05/21 10:28 DC 02/05/21 09:46 Carbamide Peroxide (Debrox) 3 drop BID 06/12/20 21:00 06/16/20 09:01 DC 06/13/20 12:17 Carbamide Peroxide (Debrox) 5 drop BID AU 01/18/21 09:00 01/21/21 21:01 DC 01/21/21 20:41 Ceftriaxone Sodium 2 gm/ Dextrose 50 ml @ 100 mls/hr Q24H IV 12/13/20 21:00 12/14/20 12:03 DC 12/13/20 20:36 Clonazepam (KlonoPIN) 0.25 mg Q6HP PRN PO anxiety 10/13/20 13:15 10/20/20 13:14 DC 10/19/20 22:24 Clonazepam (KlonoPIN) 0.25 mg Q6HP PRN PO ANXIETY 10/20/20 21:00 12/25/20 12:17 DC 12/25/20 09:08 Clonazepam (KlonoPIN) 0.5 mg Q8HP PRN PO ANXIETY 12/25/20 13:00 12/25/20 14:24 DC Clonazepam (KlonoPIN) 0.5 mg Q8HP PRN PO ANXIETY 12/25/20 18:45 02/18/21 06:11 Cod Liver Oil/ Zinc Oxide (Desitin) 1 dose BID TOP 12/24/20 21:00 12/25/20 13:48 DC 12/25/20 08:58 COVID-19 Vacc mRNA LNP-S (MOD) (PF) (Moderna Covid19 Vacc(Unapprov)) 100 mcg ASDIRECTED PRN IM COVID Vaccination 12/19/20 05:00 12/19/20 14:00 DC 12/19/20 14:00 Darbepoetin Jairo (Aranesp (Dialysis Use)) 100 mcg HD IV 01/16/21 10:00 02/08/21 16:03 DC 02/06/21 09:50 Darbepoetin Jairo (Aranesp (Dialysis Use)) 100 mcg HD IV 08/06/20 11:45 09/03/20 07:41 DC Darbepoetin Jairo (Aranesp (Dialysis Use)) 100 mcg HD IV 09/03/20 07:30 09/16/20 08:11 DC 09/10/20 09:01 Darbepoetin Jairo (Aranesp (Dialysis Use)) 200 mcg HD IV 11/19/20 12:30 01/09/21 09:57 DC 01/02/21 10:42 Darbepoetin Jairo (Aranesp (Dialysis Use)) 200 mcg HD IV 10/31/20 10:30 11/19/20 12:25 DC 11/13/20 11:56 Darbepoetin J[place] (Aranesp (Dialysis Use)) 200 mcg HD IV 01/09/21 10:00 01/16/21 09:59 DC 01/09/21 11:48 Darbepoetin Jairo (Aranesp (Dialysis Use)) 200 mcg HD IV 02/08/21 16:05 02/13/21 11:21 Darbepoetin J[place] (Aranesp (Dialysis Use)) 200 mcg HD IV 10/08/20 18:30 10/31/20 10:17 DC 10/24/20 10:47 Dimethicone (Vanicream Ointment) 1 dose BID TOP 11/27/20 09:00 02/17/21 21:28 Diphenhydramine HCl (Benadryl) 50 mg ONCE PRN IV ALLERGIC REACTION 12/19/20 13:40 12/19/20 23:59 DC Emollient Cream (Vanicream) to bilateral lo... DAILY TOP 08/05/20 09:00 09/09/20 11:17 DC 09/08/20 09:44 Emollient Cream (Vanicream) to bilateral lo... DAILY PRN TOP DRY SKIN 09/09/20 11:15 11/27/20 13:12 DC 09/28/20 22:12 Epinephrine HCl (Adrenalin) 0.3 mg ONCE PRN IM ALLERGIC REACTION 12/19/20 13:45 12/19/20 23:59 DC Erythromycin (Ilotycin) 1 CM RIBBON TID OU 11/20/20 16:00 11/27/20 16:00 DC 11/27/20 16:49 Fentanyl Citrate (Sublimaze) 25 mcg Q5MP PRN IV PAIN LEVEL 5-10 11/08/20 13:00 11/08/20 14:00 DC Formoterol Fumarate (Perforomist) 20 mcg RBID INH 2/27/21 08:00 02/18/21 08:15 Guaifenesin (Robitussin) 5 ml Q6H PO 07/28/20 12:00 02/18/21 06:10 Heparin Sodium (Heparin (Flush)) 200 units ASDIRECTED PRN IV SEE LABEL COMMENTS 06/11/20 19:45 06/11/20 19:49 DC Heparin Sodium (Heparin (Flush)) 200 units ASDIRECTED PRN IV SEE LABEL COMMENTS 06/11/20 19:45 06/20/20 18:55 DC 06/20/20 06:42 Heparin Sodium (Heparin (Flush)) 200 units PICC IV 06/12/20 06:00 06/11/20 19:48 DC Heparin Sodium (Heparin (Flush)) 200 units PICC IV 06/12/20 06:00 06/20/20 18:55 DC 06/20/20 06:41 Heparin Sodium (Heparin) 9,000 units ASDIRECTED XX 10/03/20 10:55 10/04/20 09:29 DC Heparin Sodium (Heparin) 9,000 units ASDIRECTED XX 09/26/20 13:04 09/27/20 07:14 DC Heparin Sodium (Heparin) Please refer to ... ASDIRECTED XX 11/05/20 08:00 11/06/20 07:59 DC Heparin Sodium (Heparin) Please refer to ... ASDIRECTED XX 11/07/20 08:00 11/08/20 07:59 DC Heparin Sodium (Heparin) Please refer to ... ASDIRECTED XX 11/09/20 08:00 11/10/20 07:59 DC Heparin Sodium (Heparin) Please refer to ... ASDIRECTED XX 11/11/20 08:30 11/12/20 08:29 DC Heparin Sodium (Heparin) Please refer to ... ASDIRECTED XX 11/13/20 12:45 11/14/20 12:44 DC Heparin Sodium (Heparin) Please refer to ... ASDIRECTED XX 11/15/20 10:00 11/16/20 09:59 DC Heparin Sodium (Heparin) Please refer to ... ASDIRECTED XX 10/28/20 12:45 10/29/20 12:44 DC Heparin Sodium (Heparin) Please refer to ... ASDIRECTED XX 10/29/20 12:00 10/30/20 11:59 DC Heparin Sodium (Heparin) Please refer to ... ASDIRECTED XX 10/30/20 22:45 10/31/20 22:44 DC Heparin Sodium (Heparin) Please refer to ... ASDIRECTED XX 11/02/20 08:00 11/03/20 07:59 DC Heparin Sodium (Heparin) Please refer to ... ASDIRECTED XX 11/25/20 08:00 11/26/20 07:59 DC Heparin Sodium (Heparin) Please refer to ... ASDIRECTED XX 12/05/20 10:15 12/06/20 10:14 DC Heparin Sodium (Heparin) Please refer to ... ASDIRECTED XX 12/07/20 09:00 12/08/20 08:59 DC Heparin Sodium (Heparin) Please refer to ... ASDIRECTED XX 12/14/20 07:00 12/15/20 06:59 DC Heparin Sodium (Heparin) Please refer to ... ASDIRECTED XX 12/17/20 07:00 12/18/20 06:59 DC Heparin Sodium (Heparin) Please refer to ... ASDIRECTED XX 12/19/20 07:00 12/20/20 06:59 DC Heparin Sodium (Heparin) Please refer to ... ASDIRECTED XX 12/21/20 09:00 12/22/20 08:59 DC Heparin Sodium (Heparin) Please refer to ... ASDIRECTED XX 11/27/20 10:30 11/28/20 10:29 DC Heparin Sodium (Heparin) Please refer to ... ASDIRECTED XX 11/30/20 07:00 12/01/20 06:59 DC Heparin Sodium (Heparin) Please refer to ... ASDIRECTED XX 12/03/20 07:45 12/04/20 07:44 DC Heparin Sodium (Heparin) Please refer to ... ASDIRECTED XX 12/23/20 14:10 12/24/20 14:09 Cancel Heparin Sodium (Heparin) Please refer to ... ASDIRECTED XX 01/04/21 05:45 01/05/21 05:44 DC Heparin Sodium (Heparin) Please refer to ... ASDIRECTED XX 01/05/21 11:10 01/06/21 11:09 DC Heparin Sodium (Heparin) Please refer to ... ASDIRECTED XX 01/07/21 07:45 01/08/21 07:44 DC Heparin Sodium (Heparin) Please refer to ... ASDIRECTED XX 01/09/21 06:00 01/10/21 05:59 DC Heparin Sodium (Heparin) Please refer to ... ASDIRECTED XX 01/10/21 20:10 01/11/21 20:09 DC Heparin Sodium (Heparin) Please refer to ... ASDIRECTED XX 12/24/20 08:00 12/25/20 07:59 DC Heparin Sodium (Heparin) Please refer to ... ASDIRECTED XX 12/26/20 08:20 12/27/20 08:19 DC Heparin Sodium (Heparin) Please refer to ... ASDIRECTED XX 02/04/21 09:40 02/05/21 09:39 DC Heparin Sodium (Heparin) Please refer to ... ASDIRECTED XX 02/06/21 08:30 02/07/21 08:29 DC Heparin Sodium (Heparin) Please refer to ... ASDIRECTED XX 02/15/21 06:00 02/16/21 05:59 DC Heparin Sodium (Heparin) Please refer to ... ASDIRECTED XX 02/18/21 06:00 02/19/21 05:59 Heparin Sodium (Heparin) Please refer to ... ASDIRECTED XX 01/25/21 07:10 01/26/21 07:09 DC Heparin Sodium (Heparin) Please refer to ... ASDIRECTED XX 01/28/21 07:10 01/29/21 07:09 DC Heparin Sodium (Heparin) Please refer to ... ASDIRECTED XX 01/30/21 07:00 01/31/21 06:59 DC Heparin Sodium (Heparin) Please refer to ... ASDIRECTED XX 01/31/21 22:15 02/01/21 22:14 DC Heparin Sodium (Heparin) Please refer to ... ASDIRECTED XX 09/20/20 17:45 09/21/20 17:44 DC Heparin Sodium (Heparin) Please refer to ... ASDIRECTED XX 09/24/20 07:15 09/25/20 07:14 DC Heparin Sodium (Heparin) Please refer to ... ASDIRECTED XX 10/03/20 09:30 10/03/20 10:55 DC Heparin Sodium (Heparin) Please refer to ... ASDIRECTED XX 10/12/20 08:00 10/13/20 07:59 DC Heparin Sodium (Heparin) Please refer to ... ASDIRECTED XX 10/15/20 08:00 10/16/20 07:59 DC Heparin Sodium (Heparin) Please refer to ... ASDIRECTED XX 10/17/20 10:00 10/18/20 09:59 DC Heparin Sodium (Heparin) Please refer to ... ASDIRECTED XX 10/19/20 08:00 10/20/20 07:59 DC Heparin Sodium (Heparin) Please refer to ... ASDIRECTED XX 09/26/20 07:15 09/26/20 13:04 DC Heparin Sodium (Heparin) Please refer to ... ASDIRECTED XX 09/28/20 07:45 09/29/20 07:44 DC Heparin Sodium (Heparin) dose as per volume indica... ASDIRECTED PRN IV SEE LABEL COMMENTS 11/05/20 08:00 11/05/20 11:59 DC Heparin Sodium (Heparin) dose as per volume indica... ASDIRECTED PRN IV SEE LABEL COMMENTS 11/07/20 08:00 11/07/20 20:59 DC Heparin Sodium (Heparin) dose as per volume indica... ASDIRECTED PRN IV SEE LABEL COMMENTS 11/09/20 08:00 11/09/20 21:59 DC Heparin Sodium (Heparin) dose as per volume indica... ASDIRECTED PRN IV SEE LABEL COMMENTS 11/02/20 08:00 11/02/20 20:14 DC Heparin Sodium (Heparin) dose as per volume indica... ASDIRECTED PRN IV SEE LABEL COMMENTS 11/25/20 08:00 11/25/20 20:44 DC Heparin Sodium (Heparin) dose as per volume indica... ASDIRECTED PRN IV SEE LABEL COMMENTS 02/18/21 06:00 02/18/21 16:44 Heparin Sodium (Heparin) dose as per volume indica... ASDIRECTED PRN IV SEE LABEL COMMENTS 09/04/20 11:30 09/05/20 08:25 DC Heparin Sodium (Heparin) dose as per volume indica... ASDIRECTED PRN IV SEE LABEL COMMENTS 09/04/20 11:30 09/05/20 08:25 DC Heparin Sodium (Porcine) (Heparin) 5,000 units BID SQ 10/23/20 09:00 01/05/21 13:45 DC 01/05/21 08:56 Heparin Sodium (Porcine) (Heparin) 5,000 units Q8H SQ 06/11/20 22:00 06/13/20 15:19 DC 06/13/20 12:17 Heparin Sodium (Porcine) (Heparin) 5,000 units Q8H SQ 07/25/20 22:00 10/22/20 22:18 DC 10/22/20 21:21 Home Med (Med Rec Complete!) ASDIRECTED XX 06/12/20 10:15 06/12/20 10:08 DC Hydralazine HCl (Apresoline) 10 mg Q6H PRN PO SBP>170 06/11/20 19:45 08/06/20 11:39 DC 06/19/20 22:01 Iron (Venofer) 100 mg HD IV 11/13/20 12:30 11/25/20 10:02 DC 11/22/20 10:43 Iron (Venofer) 100 mg HD IV 07/11/20 11:30 08/27/20 13:16 DC Lactated Ringer's 1,000 ml @ 100 mls/hr Q10H IV 11/08/20 13:00 11/08/20 14:00 DC Lactated Ringer's 1,000 ml @ 100 mls/hr Q10H IV 01/01/21 14:50 01/01/21 15:50 DC Levetiracetam (Keppra) 500 mg DAILY PO 06/12/20 09:00 02/18/21 06:11 Lidocaine (Lidoderm Patch) 1 patch DAILY TD 06/12/20 09:00 09/09/20 11:57 DC 07/13/20 06:43 Lidocaine (Lidoderm Patch) 1 patch DAILY PRN TD BACK PAIN 09/09/20 12:00 09/09/20 14:17 DC Lidocaine HCl (Lidocaine 1% Sdv) 0.5 ml ASDIRECTED PRN SC SEE LABEL COMMENTS 11/05/20 08:00 11/05/20 11:59 DC Lidocaine HCl (Lidocaine 1% Sdv) 0.5 ml ASDIRECTED PRN SC SEE LABEL COMMENTS 11/07/20 08:00 11/07/20 20:59 DC Lidocaine HCl (Lidocaine 1% Sdv) 0.5 ml ASDIRECTED PRN SC SEE LABEL COMMENTS 11/09/20 08:00 11/09/20 21:59 DC Lidocaine HCl (Lidocaine 1% Sdv) 0.5 ml ASDIRECTED PRN SC SEE LABEL COMMENTS 11/11/20 08:30 11/12/20 08:29 DC Lidocaine HCl (Lidocaine 1% Sdv) 0.5 ml ASDIRECTED PRN SC SEE LABEL COMMENTS 11/13/20 12:45 11/14/20 12:44 DC Lidocaine HCl (Lidocaine 1% Sdv) 0.5 ml ASDIRECTED PRN SC SEE LABEL COMMENTS 11/15/20 10:00 11/16/20 09:59 DC Lidocaine HCl (Lidocaine 1% Sdv) 0.5 ml ASDIRECTED PRN SC SEE LABEL COMMENTS 10/28/20 12:45 10/29/20 12:44 DC Lidocaine HCl (Lidocaine 1% Sdv) 0.5 ml ASDIRECTED PRN SC SEE LABEL COMMENTS 10/29/20 12:00 10/30/20 11:59 DC Lidocaine HCl (Lidocaine 1% Sdv) 0.5 ml ASDIRECTED PRN SC SEE LABEL COMMENTS 10/30/20 22:45 10/31/20 22:44 DC Lidocaine HCl (Lidocaine 1% Sdv) 0.5 ml ASDIRECTED PRN SC SEE LABEL COMMENTS 11/02/20 08:00 11/02/20 20:14 DC Lidocaine HCl (Lidocaine 1% Sdv) 0.5 ml ASDIRECTED PRN SC SEE LABEL COMMENTS 11/25/20 08:00 11/25/20 20:44 DC Lidocaine HCl (Lidocaine 1% Sdv) 0.5 ml ASDIRECTED PRN SC SEE LABEL COMMENTS 12/05/20 10:15 12/06/20 10:14 DC Lidocaine HCl (Lidocaine 1% Sdv) 0.5 ml ASDIRECTED PRN SC SEE LABEL COMMENTS 12/07/20 09:00 12/08/20 08:59 DC Lidocaine HCl (Lidocaine 1% Sdv) 0.5 ml ASDIRECTED PRN SC SEE LABEL COMMENTS 12/14/20 07:00 12/15/20 06:59 DC Lidocaine HCl (Lidocaine 1% Sdv) 0.5 ml ASDIRECTED PRN SC SEE LABEL COMMENTS 12/17/20 07:00 12/17/20 11:14 DC Lidocaine HCl (Lidocaine 1% Sdv) 0.5 ml ASDIRECTED PRN SC SEE LABEL COMMENTS 12/19/20 07:00 12/20/20 06:59 DC Lidocaine HCl (Lidocaine 1% Sdv) 0.5 ml ASDIRECTED PRN SC SEE LABEL COMMENTS 12/21/20 09:00 12/22/20 08:59 DC Lidocaine HCl (Lidocaine 1% Sdv) 0.5 ml ASDIRECTED PRN SC SEE LABEL COMMENTS 11/27/20 10:30 11/28/20 10:29 DC Lidocaine HCl (Lidocaine 1% Sdv) 0.5 ml ASDIRECTED PRN SC SEE LABEL COMMENTS 11/30/20 07:00 11/30/20 09:14 DC Lidocaine HCl (Lidocaine 1% Sdv) 0.5 ml ASDIRECTED PRN SC SEE LABEL COMMENTS 12/03/20 07:45 12/04/20 07:44 DC Lidocaine HCl (Lidocaine 1% Sdv) 0.5 ml ASDIRECTED PRN SC SEE LABEL COMMENTS 12/23/20 14:10 12/24/20 14:09 Cancel Lidocaine HCl (Lidocaine 1% Sdv) 0.5 ml ASDIRECTED PRN SC SEE LABEL COMMENTS 01/04/21 05:45 01/05/21 05:44 DC Lidocaine HCl (Lidocaine 1% Sdv) 0.5 ml ASDIRECTED PRN SC SEE LABEL COMMENTS 01/07/21 07:45 01/08/21 07:44 DC Lidocaine HCl (Lidocaine 1% Sdv) 0.5 ml ASDIRECTED PRN SC SEE LABEL COMMENTS 01/09/21 06:00 01/09/21 23:04 DC Lidocaine HCl (Lidocaine 1% Sdv) 0.5 ml ASDIRECTED PRN SC SEE LABEL COMMENTS 01/10/21 20:10 01/11/21 20:09 DC Lidocaine HCl (Lidocaine 1% Sdv) 0.5 ml ASDIRECTED PRN SC SEE LABEL COMMENTS 12/24/20 08:00 12/25/20 07:59 DC Lidocaine HCl (Lidocaine 1% Sdv) 0.5 ml ASDIRECTED PRN SC SEE LABEL COMMENTS 12/26/20 08:20 12/27/20 08:19 DC Lidocaine HCl (Lidocaine 1% Sdv) 0.5 ml ASDIRECTED PRN SC SEE LABEL COMMENTS 02/04/21 09:40 02/05/21 09:39 DC Lidocaine HCl (Lidocaine 1% Sdv) 0.5 ml ASDIRECTED PRN SC SEE LABEL COMMENTS 02/06/21 08:30 02/07/21 08:29 DC Lidocaine HCl (Lidocaine 1% Sdv) 0.5 ml ASDIRECTED PRN SC SEE LABEL COMMENTS 02/15/21 06:00 02/15/21 15:49 DC Lidocaine HCl (Lidocaine 1% Sdv) 0.5 ml ASDIRECTED PRN SC SEE LABEL COMMENTS 02/18/21 06:00 02/18/21 16:44 Lidocaine HCl (Lidocaine 1% Sdv) 0.5 ml ASDIRECTED PRN SC SEE LABEL COMMENTS 01/25/21 07:10 01/26/21 07:09 DC Lidocaine HCl (Lidocaine 1% Sdv) 0.5 ml ASDIRECTED PRN SC SEE LABEL COMMENTS 01/28/21 07:10 01/29/21 07:09 DC Lidocaine HCl (Lidocaine 1% Sdv) 0.5 ml ASDIRECTED PRN SC SEE LABEL COMMENTS 01/30/21 07:00 01/31/21 06:59 DC Lidocaine HCl (Lidocaine 1% Sdv) 0.5 ml ASDIRECTED PRN SC SEE LABEL COMMENTS 01/31/21 22:15 02/01/21 22:14 DC Lidocaine HCl (Lidocaine 1% Sdv) 0.5 ml ASDIRECTED PRN SC SEE LABEL COMMENTS 09/04/20 11:30 09/05/20 08:26 DC Lidocaine HCl (Lidocaine 1% Sdv) 0.5 ml ASDIRECTED PRN SC SEE LABEL COMMENTS 09/04/20 11:30 09/05/20 08:26 DC Lidocaine HCl (Lidocaine 1% Sdv) 0.5 ml ASDIRECTED PRN SC SEE LABEL COMMENTS 09/07/20 07:30 09/08/20 07:29 DC Lidocaine HCl (Lidocaine 1% Sdv) 0.5 ml ASDIRECTED PRN SC SEE LABEL COMMENTS 09/07/20 07:30 09/08/20 07:29 DC Lidocaine HCl (Lidocaine 1% Sdv) 0.5 ml ASDIRECTED PRN SC SEE LABEL COMMENTS 09/21/20 08:00 09/21/20 17:44 DC Lidocaine HCl (Lidocaine 1% Sdv) 0.5 ml ASDIRECTED PRN SC SEE LABEL COMMENTS 09/24/20 07:15 09/25/20 07:14 DC Lidocaine HCl (Lidocaine 1% Sdv) 0.5 ml ASDIRECTED PRN SC SEE LABEL COMMENTS 10/03/20 09:30 10/04/20 09:29 DC Lidocaine HCl (Lidocaine 1% Sdv) 0.5 ml ASDIRECTED PRN SC SEE LABEL COMMENTS 10/12/20 08:00 10/13/20 07:59 DC Lidocaine HCl (Lidocaine 1% Sdv) 0.5 ml ASDIRECTED PRN SC SEE LABEL COMMENTS 10/15/20 08:00 10/15/20 20:59 DC Lidocaine HCl (Lidocaine 1% Sdv) 0.5 ml ASDIRECTED PRN SC SEE LABEL COMMENTS 10/17/20 10:00 10/18/20 09:59 DC Lidocaine HCl (Lidocaine 1% Sdv) 0.5 ml ASDIRECTED PRN SC SEE LABEL COMMENTS 10/19/20 08:00 10/19/20 12:59 DC Lidocaine HCl (Lidocaine 1% Sdv) 0.5 ml ASDIRECTED PRN SC SEE LABEL COMMENTS 09/26/20 07:15 09/27/20 07:14 DC Lidocaine HCl (Lidocaine 1% Sdv) 0.5 ml ASDIRECTED PRN SC SEE LABEL COMMENTS 10/01/20 10:30 10/02/20 10:29 DC Lorazepam (Ativan) 1 mg STAT STAT IV 02/02/21 21:36 02/02/21 21:37 Cancel Methylprednisolone (SOLUmedrol) 60 mg Q12H IV 12/22/20 18:00 12/23/20 11:30 DC 12/23/20 06:23 Methylprednisolone (SOLUmedrol) 60 mg Q6H IV 12/20/20 18:00 12/21/20 10:16 DC 12/21/20 05:59 Methylprednisolone (SOLUmedrol) 60 mg Q8H IV 12/21/20 14:00 12/22/20 07:39 DC 12/22/20 06:21 Midodrine (Proamatine) 5 mg MoWeFr@0900 PO 11/20/20 09:00 12/02/20 09:00 DC 11/30/20 08:29 Midodrine (Proamatine) 5 mg TuThSa@0900 PO 11/05/20 09:00 11/19/20 10:13 DC 11/18/20 08:24 Midodrine (Proamatine) 5 mg TuThSa@0900 PO 12/03/20 09:00 12/25/20 10:04 DC 12/24/20 07:58 Midodrine (Proamatine) 10 mg 08,12,16 PO 12/31/20 12:00 02/18/21 10:07 Midodrine (Proamatine) 10 mg ASDIRECTED PO 06/11/20 20:30 08/31/20 21:12 DC 08/10/20 06:14 Midodrine (Proamatine) 10 mg HD PO 06/11/20 21:00 06/11/20 20:22 DC Miscellaneous (Unresolved Clarification Entry) SEE LABEL COMMENTS DAILY XX 11/24/20 09:00 11/24/20 12:58 DC Miscellaneous (Unresolved Clarification Entry) SEE LABEL COMMENTS DAILY XX 10/29/20 09:00 10/29/20 09:54 DC Miscellaneous (Unresolved Clarification Entry) SEE LABEL COMMENTS DAILY XX 11/01/20 09:00 11/05/20 08:43 DC 11/04/20 08:23 Miscellaneous (Unresolved Clarification Entry) SEE LABEL COMMENTS DAILY XX 01/12/21 09:00 01/12/21 15:30 DC Miscellaneous (Unresolved Clarification Entry) SEE LABEL COMMENTS DAILY XX 02/07/21 09:00 02/07/21 14:40 DC 02/07/21 09:00 Miscellaneous (Unresolved Clarification Entry) SEE LABEL COMMENTS DAILY XX 02/17/21 09:00 02/18/21 10:54 DC Miscellaneous (Unresolved Clarification Entry) SEE LABEL COMMENTS DAILY XX 06/24/20 09:00 06/25/20 12:54 DC Miscellaneous (Unresolved Clarification Entry) SEE LABEL COMMENTS DAILY XX 09/29/20 09:00 09/29/20 12:49 DC Non-Formulary Medication ( See Comment Field Below ) CHECK TO SEE IF THE PATIENT... DAILY@0800 XX 06/27/20 08:00 09/01/20 18:17 DC 08/10/20 06:36 Non-Formulary Medication ( See Comment Field Below ) CHECK TO SEE IF THE PATIENT... DAILY@1600 XX 12/17/20 16:00 12/22/20 23:59 DC 12/21/20 15:21 Non-Formulary Medication ( See Comment Field Below ) REMOVE LIDODERM PATCH DAILY@21 XX 06/11/20 21:00 09/09/20 11:57 DC 09/04/20 21:00 Non-Formulary Medication ( See Comment Field Below ) REMOVE LIDODERM PATCH DAILY@21 PRN XX BACK PAIN 09/09/20 12:00 09/09/20 14:17 DC Nystatin (Mycostatin Powder, Nystop) APPLY TO GROIN BID TOP 02/18/21 09:00 Nystatin (Mycostatin Powder, Nystop) Apply to groin folds BIDP PRN TOP REDNESS/IRRITATION 08/27/20 01:00 09/25/20 01:24 DC Nystatin (Mycostatin Powder, Nystop) apply to groin BID TOP 01/28/21 21:00 02/08/21 16:36 DC 02/07/21 21:08 Nystatin (Mycostatin Powder, Nystop) apply to groin area daily DAILY TOP 11/25/20 09:00 12/25/20 13:48 DC 12/25/20 08:58 Ondansetron HCl (ZOFRAN INJection) 4 mg Q4HP PRN IV NAUSEA OR VOMITING 11/08/20 13:00 11/08/20 14:00 DC Ondansetron HCl (ZOFRAN INJection) 4 mg Q4HP PRN IV NAUSEA OR VOMITING 01/01/21 14:50 01/01/21 15:50 DC Ondansetron HCl (ZOFRAN INJection) 4 mg Q4HP PRN IV NAUSEA OR VOMITING 01/11/21 20:55 01/12/21 20:54 DC Ondansetron HCl (Zofran) 4 mg Q6HP PRN PO NAUSEA OR VOMITING 07/08/20 12:45 01/15/21 04:19 Oxycodone HCl (Roxicodone, Oxyir) 10 mg Q4H PRN PO PAIN 06/11/20 19:45 10/19/20 15:15 DC 10/18/20 22:28 Oxycodone HCl (Roxicodone, Oxyir) 10 mg Q4HP PRN PO SEVERE PAIN (PS 8-10) 10/19/20 22:15 10/20/20 10:15 DC 10/19/20 22:23 Oxycodone HCl (Roxicodone, Oxyir) 10 mg Q4HP PRN PO SEVERE PAIN (PS 8-10) 10/20/20 21:00 10/22/20 22:18 DC 10/22/20 21:20 Oxycodone HCl (Roxicodone, Oxyir) 10 mg Q8HP PRN PO SEVERE PAIN (PS 8-10) 10/22/20 22:30 02/18/21 06:11 Pantoprazole Sodium (Protonix) 40 mg DAILY PO 06/12/20 09:00 02/18/21 06:11 Phenol (Chloraseptic [place]) 1 spray Q2HP PRN MT SORE THROAT 10/09/20 08:45 01/14/21 06:37 Piperacillin Sod/ Tazobactam Sod 2.25 gm/Dextrose 50 ml @ 100 mls/hr Q8H IV 12/14/20 17:00 12/22/20 23:59 DC 12/22/20 17:18 Piperacillin Sod/ Tazobactam Sod 3.375 gm/Dextrose 50 ml @ 50 mls/hr Q6H IV 12/14/20 12:15 UNV Polyethylene Glycol (Miralax) 1 pkt DAILY PRN PO CONSTIPATION 06/11/20 19:45 06/15/20 16:45 DC Polyethylene Glycol (Miralax) 1 pkt DAILYPRN PRN PO CONSTIPATION 08/04/20 17:45 Polymyxin/ Trimethoprim Sulfate (Polytrim Ophth Drops) 1 drop 6XD OU 08/03/20 15:00 08/10/20 12:00 DC 08/10/20 06:13 Pramipexole Dihydrochloride (Mirapex) 0.125 mg QHS PO 06/11/20 21:00 02/17/21 21:28 Prednisone (Deltasone) Taper DAILY PO 12/24/20 09:00 01/02/21 08:59 DC 01/01/21 08:57 Prednisone (Deltasone) 30 mg Taper DAILY PO 12/21/20 09:00 12/20/20 18:32 DC Prednisone (Deltasone) 40 mg DAILY PO 12/14/20 09:00 12/20/20 13:37 DC 12/20/20 09:25 Salmeterol Xinafoate/ Fluticasone (Advair Hfa ) 2 puff RBID INH 12/13/20 08:00 12/21/20 08:28 DC 12/20/20 20:12 Senna/Docusate Sodium (Senokot S) 2 tab QHS PO 08/04/20 21:00 02/17/21 21:27 Sertraline HCl (Zoloft) 100 mg DAILY PO 06/12/20 09:00 09/30/20 11:35 DC 09/30/20 09:50 Sertraline HCl (Zoloft) 150 mg DAILY PO 10/01/20 09:00 10/13/20 13:17 DC 10/13/20 10:21 Sertraline HCl (Zoloft) 200 mg DAILY PO 10/14/20 09:00 02/18/21 06:11 Sevelamer Carbonate (Renvela) 2,400 mg WM PO 06/12/20 08:00 11/15/20 16:12 DC 11/15/20 13:15 Sevelamer Carbonate (Renvela) 4,000 mg WM PO 11/15/20 18:00 02/17/21 18:23 Sodium Chloride (Nacl 0.9%) 200 ml ASDIRECTED PRN IV SEE LABEL COMMENTS 11/07/20 08:00 11/08/20 07:59 DC Sodium Chloride (Nacl 0.9%) 200 ml ASDIRECTED PRN IV SEE LABEL COMMENTS 11/09/20 08:00 11/10/20 07:59 DC Sodium Chloride (Nacl 0.9%) 200 ml ASDIRECTED PRN IV SEE LABEL COMMENTS 11/11/20 08:30 11/12/20 08:29 DC Sodium Chloride (Nacl 0.9%) 200 ml ASDIRECTED PRN IV SEE LABEL COMMENTS 11/13/20 12:45 11/14/20 12:44 DC Sodium Chloride (Nacl 0.9%) 200 ml ASDIRECTED PRN IV SEE LABEL COMMENTS 11/15/20 10:00 11/16/20 09:59 DC Sodium Chloride (Nacl 0.9%) 200 ml ASDIRECTED PRN IV SEE LABEL COMMENTS 10/28/20 12:45 10/29/20 12:44 DC Sodium Chloride (Nacl 0.9%) 200 ml ASDIRECTED PRN IV SEE LABEL COMMENTS 10/29/20 12:00 10/30/20 11:59 DC Sodium Chloride (Nacl 0.9%) 200 ml ASDIRECTED PRN IV SEE LABEL COMMENTS 10/30/20 22:45 10/31/20 22:44 DC Sodium Chloride (Nacl 0.9%) 200 ml ASDIRECTED PRN IV SEE LABEL COMMENTS 12/05/20 10:15 12/06/20 10:14 DC Sodium Chloride (Nacl 0.9%) 200 ml ASDIRECTED PRN IV SEE LABEL COMMENTS 12/07/20 09:00 12/08/20 08:59 DC Sodium Chloride (Nacl 0.9%) 200 ml ASDIRECTED PRN IV SEE LABEL COMMENTS 12/14/20 07:00 12/15/20 06:59 DC Sodium Chloride (Nacl 0.9%) 200 ml ASDIRECTED PRN IV SEE LABEL COMMENTS 12/21/20 09:00 12/22/20 08:59 DC Sodium Chloride (Nacl 0.9%) 200 ml ASDIRECTED PRN IV SEE LABEL COMMENTS 12/03/20 07:45 12/04/20 07:44 DC Sodium Chloride (Nacl 0.9%) 200 ml ASDIRECTED PRN IV SEE LABEL COMMENTS 12/23/20 14:10 12/24/20 14:09 Cancel Sodium Chloride (Nacl 0.9%) 200 ml ASDIRECTED PRN IV SEE LABEL COMMENTS 01/04/21 05:45 01/05/21 05:44 DC Sodium Chloride (Nacl 0.9%) 200 ml ASDIRECTED PRN IV SEE LABEL COMMENTS 12/24/20 08:00 12/25/20 07:59 DC Sodium Chloride (Nacl 0.9%) 200 ml ASDIRECTED PRN IV SEE LABEL COMMENTS 12/26/20 08:20 12/27/20 08:19 DC Sodium Chloride (Nacl 0.9%) 200 ml ASDIRECTED PRN IV SEE LABEL COMMENTS 02/04/21 09:40 02/05/21 09:39 DC Sodium Chloride (Nacl 0.9%) 200 ml ASDIRECTED PRN IV SEE LABEL COMMENTS 02/06/21 08:30 02/07/21 08:29 DC Sodium Chloride (Nacl 0.9%) 200 ml ASDIRECTED PRN IV SEE LABEL COMMENTS 09/03/20 07:30 09/05/20 08:26 DC Sodium Chloride (Nacl 0.9%) 200 ml ASDIRECTED PRN IV SEE LABEL COMMENTS 09/04/20 11:30 09/10/20 10:39 DC Sodium Chloride (Nacl 0.9%) 200 ml ASDIRECTED PRN IV SEE LABEL COMMENTS 09/07/20 07:30 09/10/20 10:39 DC Sodium Chloride (Nacl 0.9%) 200 ml ASDIRECTED PRN IV SEE LABEL COMMENTS 09/12/20 08:00 09/24/20 08:57 DC Sodium Chloride (Nacl 0.9%) 200 ml ASDIRECTED PRN IV SEE LABEL COMMENTS 09/24/20 07:15 09/25/20 07:14 DC Sodium Chloride (Nacl 0.9%) 200 ml ASDIRECTED PRN IV SEE LABEL COMMENTS 10/03/20 09:30 10/04/20 09:29 DC Sodium Chloride (Nacl 0.9%) 200 ml ASDIRECTED PRN IV SEE LABEL COMMENTS 10/12/20 08:00 10/13/20 07:59 DC Sodium Chloride (Nacl 0.9%) 200 ml ASDIRECTED PRN IV SEE LABEL COMMENTS 10/15/20 08:00 10/16/20 07:59 DC Sodium Chloride (Nacl 0.9%) 200 ml ASDIRECTED PRN IV SEE LABEL COMMENTS 10/17/20 10:00 10/18/20 09:59 DC Sodium Chloride (Nacl 0.9%) 200 ml ASDIRECTED PRN IV SEE LABEL COMMENTS 09/26/20 07:15 09/27/20 07:14 DC Sodium Chloride (Nacl 0.9%) 200 ml ASDIRECTED PRN IV SEE LABEL COMMENTS 09/28/20 07:45 09/29/20 07:44 DC Sodium Chloride (Nacl 0.9%) 200 ml ASDIRECTED PRN IV SEE LABEL COMMENTS 10/01/20 10:30 10/02/20 10:29 DC Sodium Chloride (Saline Lock Flush) 10 ml ASDIRECTED PRN IV SEE LABEL COMMENTS 06/11/20 19:45 06/11/20 19:50 DC Sodium Chloride (Saline Lock Flush) 10 ml ASDIRECTED PRN IV SEE LABEL COMMENTS 06/11/20 19:45 06/20/20 18:55 DC 06/20/20 06:41 Sodium Chloride (Saline Lock Flush) 10 ml PICC IV 06/12/20 06:00 06/11/20 19:49 DC Sodium Chloride (Saline Lock Flush) 10 ml PICC IV 06/12/20 06:00 06/20/20 18:55 DC 06/20/20 06:41 Sucroferric Oxyhydroxide (Velphoro) 500 mg WM PO 11/11/20 18:00 11/15/20 16:12 DC 11/12/20 17:52 Sucroferric Oxyhydroxide (Velphoro) 500 mg WM PO 07/11/20 12:30 09/21/20 12:33 DC 09/15/20 18:12 Vancomycin HCl 1000 mg/IV Miscellaneous Supplies 1 each/ Dextrose 270 ml @ 270 mls/hr HD IV 12/17/20 09:00 12/20/20 10:00 DC 12/19/20 15:55 Vancomycin HCl 1000 mg/IV Miscellaneous Supplies 1 each/ Dextrose 270 ml @ 270 mls/hr Q12H IV 12/14/20 12:00 UNV Vancomycin HCl 1000 mg/IV Miscellaneous Supplies 1 each/ Sodium Chloride 270 ml @ 270 mls/hr HD IV 12/20/20 10:05 12/22/20 23:59 DC 12/21/20 15:19 Vitamin D (Vitamin D) 2,000 units DAILY PO 12/03/20 09:00 02/18/21 06:11 Zinc Oxide (Boudreauxs Butt Paste) 1 dose BID TOP 11/28/20 09:00 12/24/20 16:02 DC 12/24/20 08:00 Allergies Coded Allergies: moxifloxacin (Verified Allergy, Intermediate, RASH, 12/25/19) codeine (Verified Allergy, Unknown, 12/25/19) valsartan (Verified Allergy, Unknown, 12/25/19) VS,Fishbone, I+O VS, Fishbone, I+O Vital Signs Date Time Temp Pulse Resp B/P (MAP) Pulse Ox O2 Delivery O2 Flow Rate FiO2 02/18/21 09:44 5.0 02/18/21 08:04 98.1 67 12 138/79 (98) 93 Trach Collar 02/17/21 21:30 28 I&O- Last 24 Hours up to 6 AM 02/18/21 06:00 Intake Total 1200 ml Output Total 0 ml Balance 1200 ml GME ATTESTATION GME ATTESTATION My faculty preceptor for this patient encounter was physically present during the encounter and was fully available. All aspects of the patient interview, examination, medical decision making process, and medical care plan development were reviewed and approved by the faculty preceptor. The faculty preceptor is aware and concurs with the plan as stated in the body of this note and will attest to such by his/her cosignature. ANKIT MULLEN MD Feb 18, 2021 11:58
[2021-02-18 13:44] VITALS: BP 112/53
[2021-02-18] MEDS: SENOKOT S TAB PO SCH (20:58)
[2021-02-18] MEDS: PRAMIPEXOLE (MIRAPEX) 0.125 MG TAB PO SCH (20:59)
[2021-02-19] MEDS: guaiFENesin SYRUP 200 MG/10 ML UDC PO SCH ×4 (00:29→18:11)
[2021-02-19] MEDS: ALBUTEROL SULFATE 2.5 MG/0.5 ML INH NEB SOLN NEB PRN (03:36)
[2021-02-19] MEDS ORDERED: guaiFENesin SYRUP 200 MG/10 ML UDC As Ordered ONE (05:01)
[2021-02-19 05:11] VITALS: BP 141/55
[2021-02-19] MEDS: FORMOTEROL FUMARATE 20 MCG/2 ML INHALATION SOLUTION (PERFOROMIST) INH SCH ×2 (08:27→20:44)
[2021-02-19] MEDS: BUDESONIDE 0.5 MG/2 ML INHALATION SUSPENSION INH SCH ×2 (08:27→20:44)
[2021-02-19] MEDS: DIMETHICONE 2% OINTMENT(VANICREAM) 70GM TUBE TOP SCH ×2 (09:00→21:17)
[2021-02-19] MEDS: (RENVELA) SEVELAMER **CARBONate** 800 MG TAB PO SCH ×3 (09:36→18:11)
[2021-02-19] MEDS: MIDODRINE 5 MG TAB PO SCH ×3 (09:37→15:38)
[2021-02-19] MEDS: levETIRAcetam 250MG TABLET (KEPPRA) PO SCH (09:37)
[2021-02-19] MEDS: oxyCODONE 5MG TAB PO PRN ×2 (09:37→21:29)
[2021-02-19] MEDS: clonazePAM 0.5 MG TAB PO PRN ×2 (09:37→21:21)
[2021-02-19] MEDS: SERTRALINE 100 MG TAB PO SCH (09:38)
[2021-02-19] MEDS: PANTOPRAZOLE 40MG TAB (PROTONIX) PO SCH (09:38)
[2021-02-19] MEDS: CALCITRIOL 0.25 MCG CAP (S0169) PO SCH (09:38)
[2021-02-19] MEDS: NYSTATIN 100,000 UNITS/GM TOPICAL PWD 15 GM TOP SCH ×2 (09:38→21:17)
[2021-02-19] MEDS: VITAMIN D 1,000 INTERNATIONAL UNITS TABLET PO SCH (09:38)
[2021-02-19] MEDS: AMIODARONE 200 MG TAB (PACERONE) PO SCH (09:38)
[2021-02-19] MEDS: ALBUTEROL SULFATE 2.5 MG/0.5 ML INH NEB SOLN NEB SCH ×3 (11:15→20:44)
[2021-02-19 13:00] VITALS: BP 152/96
[2021-02-19 20:47] VITALS: O2SAT 98
[2021-02-19] MEDS: SENOKOT S TAB PO SCH (21:16)
[2021-02-19] MEDS: PRAMIPEXOLE (MIRAPEX) 0.125 MG TAB PO SCH (21:17)
[2021-02-20] MEDS: guaiFENesin SYRUP 200 MG/10 ML UDC PO SCH ×4 (00:06→17:55)
[2021-02-20] MEDS ORDERED: LIDOCAINE 1% SDV 5ML VIAL SC PRN (00:15)
[2021-02-20] MEDS: ALBUTEROL SULFATE 2.5 MG/0.5 ML INH NEB SOLN NEB PRN ×2 (00:27→04:33)
[2021-02-20 03:17] VITALS: O2SAT 93
[2021-02-20] MEDS: FORMOTEROL FUMARATE 20 MCG/2 ML INHALATION SOLUTION (PERFOROMIST) INH SCH ×2 (07:40→20:25)
[2021-02-20] MEDS: BUDESONIDE 0.5 MG/2 ML INHALATION SUSPENSION INH SCH ×2 (07:40→20:25)
[2021-02-20] MEDS: ALBUTEROL SULFATE 2.5 MG/0.5 ML INH NEB SOLN NEB SCH ×4 (07:41→20:25)
[2021-02-20] MEDS: MIDODRINE 5 MG TAB PO SCH ×3 (07:46→17:54)
[2021-02-20] MEDS: (RENVELA) SEVELAMER **CARBONate** 800 MG TAB PO SCH ×3 (07:47→17:53)
[2021-02-20] MEDS: levETIRAcetam 250MG TABLET (KEPPRA) PO SCH (07:47)
[2021-02-20] MEDS: SERTRALINE 100 MG TAB PO SCH (07:47)
[2021-02-20] MEDS: clonazePAM 0.5 MG TAB PO PRN ×2 (07:47→20:55)
[2021-02-20] MEDS: VITAMIN D 1,000 INTERNATIONAL UNITS TABLET PO SCH (07:48)
[2021-02-20] MEDS: CALCITRIOL 0.25 MCG CAP (S0169) PO SCH (07:49)
[2021-02-20] MEDS: oxyCODONE 5MG TAB PO PRN ×2 (07:49→20:54)
[2021-02-20] MEDS: AMIODARONE 200 MG TAB (PACERONE) PO SCH (07:49)
[2021-02-20] MEDS: PANTOPRAZOLE 40MG TAB (PROTONIX) PO SCH (07:50)
[2021-02-20 07:59] VITALS: BP 106/60
[2021-02-20] MEDS: NYSTATIN 100,000 UNITS/GM TOPICAL PWD 15 GM TOP SCH ×2 (09:19→20:56)
[2021-02-20] MEDS: DIMETHICONE 2% OINTMENT(VANICREAM) 70GM TUBE TOP SCH ×2 (09:19→20:56)
[2021-02-20] MEDS: DARBEPOETIN 200MCG/0.4ML *DIALYSIS* SYRINGE (J0882 PER 1MCG) IV SCH (10:10)
--- NOTE | 2021-02-20 13:58 | IPN ---
PROGRESS NOTE DATE: 02/20/2021 SUBJECTIVE: The patient was seen and examined at the bedside today morning during the hemodialysis procedure. He is tolerating the hemodialysis procedure well. He does not complain of any problems during dialysis. OBJECTIVE: VITAL SIGNS: Temperature is 97.7 degrees Fahrenheit, blood pressure 106/60, pulse is 68, respiratory rate is 18, saturating 96% on trach collar at 5 liters. HEAD AND NECK: Extraocular muscles intact. Pupils equally round and reactive to light. Mucous membranes are moist. Neck is supple. He has a trach collar. CARDIOVASCULAR: S1 and S2, regular rate. There is 1+ edema of the bilateral thighs. RESPIRATORY: Chest is clear to auscultation bilaterally. He has tracheostomy status. ABDOMEN: Obese, positive bowel sounds. He has abdominal wall edema on the right side. MUSCULOSKELETAL: He has waffle boots, decreased range of movement of lower extremities because of chronically bed-ridden status. TELEVISION NEWS REPORTER: No focal deficit in bilateral upper extremities. Patient is able to communicate and follows commands. LABORATORY DATA: CBC from February 17 shows a hemoglobin of 10.8 and BMP also from February 17 shows a potassium of 4.3 and creatinine of 5.4. CURRENT INPATIENT MEDICATIONS: The patient's medications were all reviewed by myself. There is no significant change in the medications today as compared with yesterday. ASSESSMENT AND PLAN: 1. Endstage renal disease. Patient is being dialyzed according to a Wednesday, and Wednesday schedule. He has abdominal wall and lower extremity edema, so 4 liters of fluid will be removed today. 2. Anemia and endstage renal disease. Hemoglobin level is optimal on latest labs, continue current dose of Aranesp. 3. Chronic hypotension. Continue current dose of Midodrine 10 mg p.o. three times a day. 4. Chronic kidney disease, mineral bone disease, continue Renvela with meals. 5. Secondary hyperparathyroidism. Continue Calcitriol.
[2021-02-20 20:27] VITALS: O2SAT 98
[2021-02-20] MEDS: SENOKOT S TAB PO SCH (20:55)
[2021-02-20] MEDS: PRAMIPEXOLE (MIRAPEX) 0.125 MG TAB PO SCH (20:55)
[2021-02-21] MEDS: ALBUTEROL SULFATE 2.5 MG/0.5 ML INH NEB SOLN NEB PRN ×2 (00:09→04:01)
[2021-02-21] MEDS: guaiFENesin SYRUP 200 MG/10 ML UDC PO SCH ×4 (00:31→17:42)
[2021-02-21 07:02] VITALS: BP 144/68
[2021-02-21] MEDS: FORMOTEROL FUMARATE 20 MCG/2 ML INHALATION SOLUTION (PERFOROMIST) INH SCH ×2 (07:09→20:01)
[2021-02-21] MEDS: BUDESONIDE 0.5 MG/2 ML INHALATION SUSPENSION INH SCH ×2 (07:09→20:02)
[2021-02-21] MEDS: ALBUTEROL SULFATE 2.5 MG/0.5 ML INH NEB SOLN NEB SCH ×4 (07:10→20:00)
[2021-02-21] MEDS: MIDODRINE 5 MG TAB PO SCH ×3 (08:00→15:55)
[2021-02-21] MEDS: (RENVELA) SEVELAMER **CARBONate** 800 MG TAB PO SCH ×3 (08:00→17:42)
[2021-02-21] MEDS: CALCITRIOL 0.25 MCG CAP (S0169) PO SCH (08:42)
[2021-02-21] MEDS: SERTRALINE 100 MG TAB PO SCH (08:42)
[2021-02-21] MEDS: levETIRAcetam 250MG TABLET (KEPPRA) PO SCH (08:42)
[2021-02-21] MEDS: AMIODARONE 200 MG TAB (PACERONE) PO SCH (08:42)
[2021-02-21] MEDS: PANTOPRAZOLE 40MG TAB (PROTONIX) PO SCH (08:42)
[2021-02-21] MEDS: VITAMIN D 1,000 INTERNATIONAL UNITS TABLET PO SCH (08:43)
[2021-02-21] MEDS: NYSTATIN 100,000 UNITS/GM TOPICAL PWD 15 GM TOP SCH ×2 (08:43→21:00)
[2021-02-21] MEDS: DIMETHICONE 2% OINTMENT(VANICREAM) 70GM TUBE TOP SCH ×2 (08:43→20:59)
[2021-02-21] MEDS: oxyCODONE 5MG TAB PO PRN ×2 (08:49→20:58)
[2021-02-21] MEDS: clonazePAM 0.5 MG TAB PO PRN ×2 (08:49→20:58)
[2021-02-21] MEDS: SENOKOT S TAB PO SCH (20:57)
[2021-02-21] MEDS: PRAMIPEXOLE (MIRAPEX) 0.125 MG TAB PO SCH (20:58)
[2021-02-22] MEDS: ALBUTEROL SULFATE 2.5 MG/0.5 ML INH NEB SOLN NEB PRN (01:17)
[2021-02-22 01:39] VITALS: O2SAT 96
[2021-02-22] MEDS ORDERED: LIDOCAINE 1% SDV 5ML VIAL SC PRN (04:40)
[2021-02-22] MEDS: guaiFENesin SYRUP 200 MG/10 ML UDC PO SCH ×4 (05:17→18:21)
[2021-02-22] MEDS: (RENVELA) SEVELAMER **CARBONate** 800 MG TAB PO SCH ×3 (05:18→18:21)
[2021-02-22 06:00] VITALS: BP 145/65
[2021-02-22] MEDS: BUDESONIDE 0.5 MG/2 ML INHALATION SUSPENSION INH SCH ×2 (07:42→20:11)
[2021-02-22] MEDS: ALBUTEROL SULFATE 2.5 MG/0.5 ML INH NEB SOLN NEB SCH ×4 (07:42→20:00)
[2021-02-22] MEDS: FORMOTEROL FUMARATE 20 MCG/2 ML INHALATION SOLUTION (PERFOROMIST) INH SCH ×2 (07:42→20:10)
[2021-02-22] MEDS: MIDODRINE 5 MG TAB PO SCH ×3 (08:00→18:21)
[2021-02-22] MEDS: clonazePAM 0.5 MG TAB PO PRN ×2 (08:55→21:23)
[2021-02-22] MEDS: oxyCODONE 5MG TAB PO PRN ×2 (08:55→21:24)
[2021-02-22] MEDS: levETIRAcetam 250MG TABLET (KEPPRA) PO SCH (08:56)
[2021-02-22] MEDS: AMIODARONE 200 MG TAB (PACERONE) PO SCH (08:56)
[2021-02-22] MEDS: VITAMIN D 1,000 INTERNATIONAL UNITS TABLET PO SCH (08:56)
[2021-02-22] MEDS: PANTOPRAZOLE 40MG TAB (PROTONIX) PO SCH (08:56)
[2021-02-22] MEDS: NYSTATIN 100,000 UNITS/GM TOPICAL PWD 15 GM TOP SCH ×2 (08:57→21:23)
[2021-02-22] MEDS: SERTRALINE 100 MG TAB PO SCH (08:57)
[2021-02-22] MEDS: DIMETHICONE 2% OINTMENT(VANICREAM) 70GM TUBE TOP SCH ×2 (08:58→21:23)
--- NOTE | 2021-02-22 13:34 | IPN ---
NEPHROLOGY PROGRESS NOTE DATE: 02/22/2021 SUBJECTIVE: Patient was seen and examined at the bedside today morning. He is afebrile, hemodynamically stable, getting hemodialysis done. He denies any active complaints. OBJECTIVE: VITAL SIGNS: Temperature 97.5 degrees Fahrenheit, blood pressure 145/65, pulse 71, respiratory rate 20, saturating 98% on trach collar at 5 liters. INTAKE/OUTPUT: No urine output recorded. Weight in the bed scale is not available. PHYSICAL EXAMINATION: GENERAL: Patient is awake, alert, oriented x3, morbidly obese, lying in bed getting hemodialysis done. HEAD/NECK: Pupils are equally round and reactive to light. Neck is supple. He has a trach collar. CARDIOVASCULAR: S1, S2, regular rate. Trace edema of the thighs. RESPIRATORY: He is trach collar dependent. Otherwise no active rales or rhonchi. ABDOMEN: Obese, positive bowel sounds, nontender. No organomegaly. MUSCULOSKELETAL: Decreased range of movement in Waffle boot in bilateral lower extremities. COMBER SETTER: Patient is chronically better. Otherwise, he follows commands and moves bilateral upper extremities. LABORATORY REVIEW: CBC showed WBC 8.4, hemoglobin 10.8; that was from 02/17/2021. BMP was also from 02/17/2021 with creatinine 5.4. CURRENT INPATIENT MEDICATIONS: Patient's medications were all reviewed by myself. There is no significant change in the medications today. ASSESSMENT AND PLAN: 1. End-stage renal disease: Patient is being dialyzed according to his regular schedule, at least 3.5 kg of fluid will be removed because he has some edema of the lower extremities and abdominal wall. 2. Anemia and end-stage renal disease: Continue current dose of Aranesp, hemoglobin level is stable. 3. Chronic hypotension: Continue current dose of Midodrine. 4. Chronic kidney disease/mineral bone disease: Continue current dose of Renvela. 5. Secondary hyperparathyroidism: Patient is currently on Calcitriol 0.25 mcg five days a week. I am going to increase the dose to 0.5 mcg because of persistently elevated parathyroid hormone level.
[2021-02-22] MEDS: PRAMIPEXOLE (MIRAPEX) 0.125 MG TAB PO SCH (21:23)
[2021-02-22] MEDS: ACETAMINOPHEN TAB 650MG DOSE (2X325MG) PO PRN (21:23)
[2021-02-22] MEDS: SENOKOT S TAB PO SCH (21:23)
[2021-02-22 23:16] VITALS: O2SAT 96
[2021-02-23] MEDS: guaiFENesin SYRUP 200 MG/10 ML UDC PO SCH ×4 (00:12→18:36)
[2021-02-23] MEDS: ALBUTEROL SULFATE 2.5 MG/0.5 ML INH NEB SOLN NEB PRN ×3 (01:38→23:36)
[2021-02-23 06:00] VITALS: BP 142/82
[2021-02-23] MEDS: FORMOTEROL FUMARATE 20 MCG/2 ML INHALATION SOLUTION (PERFOROMIST) INH SCH ×2 (07:12→19:30)
[2021-02-23] MEDS: BUDESONIDE 0.5 MG/2 ML INHALATION SUSPENSION INH SCH ×2 (07:13→19:30)
[2021-02-23] MEDS: ALBUTEROL SULFATE 2.5 MG/0.5 ML INH NEB SOLN NEB SCH ×4 (07:13→19:31)
[2021-02-23] MEDS: MIDODRINE 5 MG TAB PO SCH ×3 (09:00→15:52)
[2021-02-23] MEDS: AMIODARONE 200 MG TAB (PACERONE) PO SCH (09:00)
[2021-02-23] MEDS: PANTOPRAZOLE 40MG TAB (PROTONIX) PO SCH (09:00)
[2021-02-23] MEDS: (RENVELA) SEVELAMER **CARBONate** 800 MG TAB PO SCH ×3 (09:00→18:00)
[2021-02-23] MEDS: SERTRALINE 100 MG TAB PO SCH (09:01)
[2021-02-23] MEDS: VITAMIN D 1,000 INTERNATIONAL UNITS TABLET PO SCH (09:01)
[2021-02-23] MEDS: levETIRAcetam 250MG TABLET (KEPPRA) PO SCH (09:01)
[2021-02-23] MEDS: clonazePAM 0.5 MG TAB PO PRN ×2 (09:01→20:53)
[2021-02-23] MEDS: oxyCODONE 5MG TAB PO PRN ×2 (09:02→20:54)
[2021-02-23] MEDS: NYSTATIN 100,000 UNITS/GM TOPICAL PWD 15 GM TOP SCH ×2 (09:07→20:55)
[2021-02-23] MEDS: DIMETHICONE 2% OINTMENT(VANICREAM) 70GM TUBE TOP SCH ×2 (09:07→20:54)
[2021-02-23 19:31] VITALS: O2SAT 95
[2021-02-23] MEDS: ACETAMINOPHEN TAB 650MG DOSE (2X325MG) PO PRN (20:53)
[2021-02-23] MEDS: PRAMIPEXOLE (MIRAPEX) 0.125 MG TAB PO SCH (20:53)
[2021-02-23] MEDS: SENOKOT S TAB PO SCH (20:54)
[2021-02-23 21:00] VITALS: O2SAT 96
[2021-02-24 06:00] VITALS: BP 147/89
[2021-02-24] MEDS: guaiFENesin SYRUP 200 MG/10 ML UDC PO SCH ×4 (06:00→17:11)
[2021-02-24 06:50] LABS: BASO # 0.1 10^3/uL (0.0-0.2); BASO % 0.5 % (0.0-1.0); EOS # 0.6 10^3/uL (0.0-0.5); EOS % 5.5 % (0.0-3.0); HEMATOCRIT 38.3 % (42.0-52.0); HEMOGLOBIN 10.7 g/dl (13.5-17.5); LYMPH # 2.8 10^3/uL (1.5-5.0); LYMPH % 27.9 % (24.0-44.0); MEAN CORPUSCULAR HEMOGLOBIN 27.2 pg (27.0-33.0); MEAN CORPUSCULAR HGB CONC 27.9 g/dl (32.0-36.5); MEAN CORPUSCULAR VOLUME 97.5 fl (80.0-96.0); MONO # 0.5 10^3/uL (0.0-0.8); MONO % 5.3 % (2.0-8.0); NEUTROPHILS # 6.1 10^3/uL (1.5-8.5); NEUTROPHILS % 60.3 % (36.0-66.0); PLATELET COUNT, AUTOMATED 199 10^3/uL (150-450); RED BLOOD COUNT 3.93 10^6/uL (4.30-6.10); WHITE BLOOD COUNT 10.1 10^3/uL (4.0-10.0)
[2021-02-24 07:16] LABS: ALBUMIN 2.6 GM/DL (3.2-5.2); CALCIUM LEVEL 9.6 MG/DL (8.5-10.1); CREATININE FOR GFR 5.64 MG/DL (0.70-1.30); GLOMERULAR FILTRATION RATE 11.5 (>60); PHOSPHORUS LEVEL 6.7 MG/DL (2.5-4.9); POTASSIUM SERUM 4.5 MEQ/L (3.5-5.1)
[2021-02-24] MEDS: ALBUTEROL SULFATE 2.5 MG/0.5 ML INH NEB SOLN NEB SCH ×4 (07:53→20:17)
[2021-02-24] MEDS: FORMOTEROL FUMARATE 20 MCG/2 ML INHALATION SOLUTION (PERFOROMIST) INH SCH ×2 (07:53→20:17)
[2021-02-24] MEDS: BUDESONIDE 0.5 MG/2 ML INHALATION SUSPENSION INH SCH ×2 (07:53→20:17)
[2021-02-24] MEDS: MIDODRINE 5 MG TAB PO SCH ×3 (08:00→16:00)
[2021-02-24] MEDS: (RENVELA) SEVELAMER **CARBONate** 800 MG TAB PO SCH ×3 (08:55→17:11)
[2021-02-24] MEDS: clonazePAM 0.5 MG TAB PO PRN ×2 (08:56→22:07)
[2021-02-24] MEDS: oxyCODONE 5MG TAB PO PRN ×2 (08:56→22:06)
[2021-02-24] MEDS: VITAMIN D 1,000 INTERNATIONAL UNITS TABLET PO SCH (08:56)
[2021-02-24] MEDS: levETIRAcetam 250MG TABLET (KEPPRA) PO SCH (08:56)
[2021-02-24] MEDS: CALCITRIOL 0.25 MCG CAP (S0169) PO SCH (08:56)
[2021-02-24] MEDS: PANTOPRAZOLE 40MG TAB (PROTONIX) PO SCH (08:57)
[2021-02-24] MEDS: NYSTATIN 100,000 UNITS/GM TOPICAL PWD 15 GM TOP SCH ×2 (08:57→22:07)
[2021-02-24] MEDS: AMIODARONE 200 MG TAB (PACERONE) PO SCH (08:57)
[2021-02-24] MEDS: DIMETHICONE 2% OINTMENT(VANICREAM) 70GM TUBE TOP SCH ×2 (08:57→22:07)
[2021-02-24] MEDS: SERTRALINE 100 MG TAB PO SCH (08:57)
[2021-02-24 20:18] VITALS: O2SAT 98
[2021-02-24 21:00] VITALS: O2SAT 96
[2021-02-24] MEDS: PRAMIPEXOLE (MIRAPEX) 0.125 MG TAB PO SCH (22:05)
[2021-02-24] MEDS: SENOKOT S TAB PO SCH (22:06)
[2021-02-24] MEDS: ACETAMINOPHEN TAB 650MG DOSE (2X325MG) PO PRN (22:07)
[2021-02-25] MEDS: guaiFENesin SYRUP 200 MG/10 ML UDC PO SCH ×4 (00:19→16:42)
[2021-02-25] MEDS: ALBUTEROL SULFATE 2.5 MG/0.5 ML INH NEB SOLN NEB PRN ×2 (00:28→05:14)
[2021-02-25 06:00] VITALS: BP 158/63; O2SAT 98
[2021-02-25] MEDS: (RENVELA) SEVELAMER **CARBONate** 800 MG TAB PO SCH ×3 (06:12→16:42)
[2021-02-25] MEDS: MIDODRINE 5 MG TAB PO SCH ×3 (06:13→16:42)
[2021-02-25] MEDS: PANTOPRAZOLE 40MG TAB (PROTONIX) PO SCH (06:13)
[2021-02-25] MEDS: levETIRAcetam 250MG TABLET (KEPPRA) PO SCH (06:14)
[2021-02-25] MEDS: VITAMIN D 1,000 INTERNATIONAL UNITS TABLET PO SCH (06:14)
[2021-02-25] MEDS: SERTRALINE 100 MG TAB PO SCH (06:14)
[2021-02-25] MEDS: CALCITRIOL 0.25 MCG CAP (S0169) PO SCH (06:14)
[2021-02-25] MEDS: NYSTATIN 100,000 UNITS/GM TOPICAL PWD 15 GM TOP SCH ×2 (06:15→21:50)
[2021-02-25] MEDS: AMIODARONE 200 MG TAB (PACERONE) PO SCH (06:15)
[2021-02-25] MEDS: DIMETHICONE 2% OINTMENT(VANICREAM) 70GM TUBE TOP SCH ×2 (06:15→21:50)
[2021-02-25] MEDS: ALBUTEROL SULFATE 2.5 MG/0.5 ML INH NEB SOLN NEB SCH ×4 (07:20→19:57)
[2021-02-25] MEDS: FORMOTEROL FUMARATE 20 MCG/2 ML INHALATION SOLUTION (PERFOROMIST) INH SCH ×2 (07:20→19:57)
[2021-02-25] MEDS: BUDESONIDE 0.5 MG/2 ML INHALATION SUSPENSION INH SCH ×2 (07:20→19:57)
[2021-02-25] MEDS ORDERED: LIDOCAINE 1% SDV 5ML VIAL SC PRN (09:50)
[2021-02-25] MEDS ORDERED: SODIUM CHLORIDE 0.9% 1000ML IV PRN (09:50)
[2021-02-25 19:58] VITALS: O2SAT 97
[2021-02-25 21:00] VITALS: O2SAT 96
[2021-02-25] MEDS: SENOKOT S TAB PO SCH (21:50)
[2021-02-25] MEDS: PRAMIPEXOLE (MIRAPEX) 0.125 MG TAB PO SCH (21:50)
[2021-02-25] MEDS: clonazePAM 0.5 MG TAB PO PRN (21:51)
[2021-02-25] MEDS: oxyCODONE 5MG TAB PO PRN (21:51)
[2021-02-26] MEDS: guaiFENesin SYRUP 200 MG/10 ML UDC PO SCH ×4 (00:06→18:08)
[2021-02-26] MEDS: ALBUTEROL SULFATE 2.5 MG/0.5 ML INH NEB SOLN NEB PRN ×2 (00:10→03:40)
[2021-02-26 06:00] VITALS: BP 132/68
[2021-02-26] MEDS: ALBUTEROL SULFATE 2.5 MG/0.5 ML INH NEB SOLN NEB SCH ×3 (07:41→21:00)
[2021-02-26] MEDS: BUDESONIDE 0.5 MG/2 ML INHALATION SUSPENSION INH SCH ×2 (07:41→21:00)
[2021-02-26] MEDS: FORMOTEROL FUMARATE 20 MCG/2 ML INHALATION SOLUTION (PERFOROMIST) INH SCH ×2 (07:41→21:00)
[2021-02-26] MEDS: MIDODRINE 5 MG TAB PO SCH ×3 (08:00→16:00)
[2021-02-26] MEDS: NYSTATIN 100,000 UNITS/GM TOPICAL PWD 15 GM TOP SCH ×2 (08:39→20:53)
[2021-02-26] MEDS: AMIODARONE 200 MG TAB (PACERONE) PO SCH (08:39)
[2021-02-26] MEDS: DIMETHICONE 2% OINTMENT(VANICREAM) 70GM TUBE TOP SCH ×2 (08:39→20:53)
[2021-02-26] MEDS: (RENVELA) SEVELAMER **CARBONate** 800 MG TAB PO SCH ×3 (08:39→18:00)
[2021-02-26] MEDS: levETIRAcetam 250MG TABLET (KEPPRA) PO SCH (08:40)
[2021-02-26] MEDS: clonazePAM 0.5 MG TAB PO PRN ×2 (08:40→20:52)
[2021-02-26] MEDS: CALCITRIOL 0.25 MCG CAP (S0169) PO SCH (08:40)
[2021-02-26] MEDS: PANTOPRAZOLE 40MG TAB (PROTONIX) PO SCH (08:40)
[2021-02-26] MEDS: oxyCODONE 5MG TAB PO PRN ×2 (08:40→20:52)
[2021-02-26] MEDS: VITAMIN D 1,000 INTERNATIONAL UNITS TABLET PO SCH (08:40)
[2021-02-26] MEDS: SERTRALINE 100 MG TAB PO SCH (08:40)
[2021-02-26 09:00] VITALS: O2SAT 93
[2021-02-26] MEDS: PRAMIPEXOLE (MIRAPEX) 0.125 MG TAB PO SCH (20:50)
[2021-02-26] MEDS: SENOKOT S TAB PO SCH (20:51)
[2021-02-27 02:10] VITALS: O2SAT 97
[2021-02-27] MEDS: ALBUTEROL SULFATE 2.5 MG/0.5 ML INH NEB SOLN NEB PRN (05:01)
[2021-02-27] MEDS: guaiFENesin SYRUP 200 MG/10 ML UDC PO SCH ×4 (06:17→17:52)
[2021-02-27 06:23] VITALS: BP 165/75
[2021-02-27] MEDS: (RENVELA) SEVELAMER **CARBONate** 800 MG TAB PO SCH ×3 (06:25→17:52)
[2021-02-27] MEDS: CALCITRIOL 0.25 MCG CAP (S0169) PO SCH (06:25)
[2021-02-27] MEDS: levETIRAcetam 250MG TABLET (KEPPRA) PO SCH (06:26)
[2021-02-27] MEDS: AMIODARONE 200 MG TAB (PACERONE) PO SCH (06:26)
[2021-02-27] MEDS: VITAMIN D 1,000 INTERNATIONAL UNITS TABLET PO SCH (06:26)
[2021-02-27] MEDS: clonazePAM 0.5 MG TAB PO PRN ×2 (06:27→21:31)
[2021-02-27] MEDS: SERTRALINE 100 MG TAB PO SCH (06:27)
[2021-02-27] MEDS: MIDODRINE 5 MG TAB PO SCH ×3 (06:34→17:52)
[2021-02-27] MEDS: BUDESONIDE 0.5 MG/2 ML INHALATION SUSPENSION INH SCH ×2 (07:41→19:32)
[2021-02-27] MEDS: FORMOTEROL FUMARATE 20 MCG/2 ML INHALATION SOLUTION (PERFOROMIST) INH SCH ×2 (07:41→19:32)
[2021-02-27] MEDS: ALBUTEROL SULFATE 2.5 MG/0.5 ML INH NEB SOLN NEB SCH ×4 (07:42→19:32)
[2021-02-27] MEDS: DIMETHICONE 2% OINTMENT(VANICREAM) 70GM TUBE TOP SCH ×2 (07:50→21:31)
[2021-02-27] MEDS: PANTOPRAZOLE 40MG TAB (PROTONIX) PO SCH (07:50)
[2021-02-27] MEDS: NYSTATIN 100,000 UNITS/GM TOPICAL PWD 15 GM TOP SCH ×2 (07:50→21:32)
[2021-02-27] MEDS ORDERED: SODIUM CHLORIDE 0.9% 1000ML IV PRN (08:10)
[2021-02-27] MEDS ORDERED: LIDOCAINE 1% SDV 5ML VIAL SC PRN (08:10)
--- NOTE | 2021-02-27 08:44 | IPN ---
PROGRESS NOTE DATE: 02/25/2021 SUBJECTIVE: Matthew was seen and examined this morning in the hemodialysis unit while receiving his treatment. His dialysis treatment was complicated by hypotension of hemodialysis because his midodrine dose was not administered at 6:00 a.m. this morning. He subsequently received his midodrine dose during dialysis and we were able to take off his usual 3.5 liters. Patient denies any complaints. PHYSICAL EXAMINATION: VITAL SIGNS: Temperature 98.3, pulse 62, respiratory rate 18, blood pressure 158/63, saturating 98% on 5 liters by trach collar. INTAKE AND OUTPUT: Intake yesterday was 1610. Dialysis today removed 3.5 liters. GENERAL: Patient was seen receiving his hd treatment, awake, alert, comfortably, in no distress. HEENT: Extraocular muscles are intact. Patient is morbidly obese, getting his hemodialysis treatment done. Neck is supple. There is a trach collar. HEART: Regular S1, S2. There is trace edema of the thighs. LUNGS: Trach collar dependency, but no rale or rhonchi. There is symmetric air movement. ABDOMEN: Obese, soft and nontender. MUSCULOSKELETAL: Decreased range of motion of the lower extremities and his feet are in waffle boots. EXTREMITIES: His fistula in the arm is patient and in use. NEUROLOGIC: Patient is at baseline mentation, cooperative with physical examination and attempts to speak by mouthing his words. LABORATORY STUDIES: Done intermittently, and yesterday's labs show white count 10.1, hemoglobin 10.7, platelets 199. Sodium 139, potassium 4.5, bicarbonate 24, phosphorus 6.7, albumin 2.6. INPATIENT MEDICATIONS: Reviewed by myself. No changes noted over the past few days with the exception of the calcitriol, which he is now receiving 0.5 mcg by mouth Wednesday, Wednesday, Wednesday, and Wednesday. PROBLEMS: 1. End-stage renal disease on hemodialysis on Wednesday, , Wednesday schedule. Patient is dialyzed today with 3.5 liters of fluid removed. He had hypotension of hemodialysis because his midodrine was held this morning. He received his midodrine during treatment. We were able to take off 3.5 liters of fluid. His electrolytes and volume status are acceptable. 2. Anemia of end-stage renal disease. Hemoglobin is at goal and is stable. He continues on Aranesp. 3. Hypotension of hemodialysis. Patient receives midodrine three times a day. Doses are occasionally held because his blood pressures are up. 4. renal osteodystrophy. continue renvela and calcitriol. check PTH [id number]. MTDD
[2021-02-27] MEDS: DARBEPOETIN 200MCG/0.4ML *DIALYSIS* SYRINGE (J0882 PER 1MCG) IV SCH (09:24)
[2021-02-27] MEDS: HEPARIN SOD (PORCINE) 5000UNITS/ML 1ML VIAL/SYRINGE SQ SCH ×2 (13:20→21:36)
[2021-02-27] MEDS: SENOKOT S TAB PO SCH (21:30)
[2021-02-27] MEDS: PRAMIPEXOLE (MIRAPEX) 0.125 MG TAB PO SCH (21:30)
[2021-02-27] MEDS: oxyCODONE 5MG TAB PO PRN (21:31)
[2021-02-28] MEDS: ALBUTEROL SULFATE 2.5 MG/0.5 ML INH NEB SOLN NEB PRN ×3 (01:08→23:48)
[2021-02-28] MEDS: guaiFENesin SYRUP 200 MG/10 ML UDC PO SCH ×5 (02:10→23:30)
[2021-02-28] MEDS: HEPARIN SOD (PORCINE) 5000UNITS/ML 1ML VIAL/SYRINGE SQ SCH ×3 (05:25→21:27)
[2021-02-28 06:59] VITALS: BP 141/80
[2021-02-28] MEDS: FORMOTEROL FUMARATE 20 MCG/2 ML INHALATION SOLUTION (PERFOROMIST) INH SCH ×2 (07:49→19:44)
[2021-02-28] MEDS: BUDESONIDE 0.5 MG/2 ML INHALATION SUSPENSION INH SCH ×2 (07:49→19:43)
[2021-02-28] MEDS: ALBUTEROL SULFATE 2.5 MG/0.5 ML INH NEB SOLN NEB SCH ×4 (07:50→19:44)
[2021-02-28] MEDS: VITAMIN D 1,000 INTERNATIONAL UNITS TABLET PO SCH (09:14)
[2021-02-28] MEDS: (RENVELA) SEVELAMER **CARBONate** 800 MG TAB PO SCH ×3 (09:14→17:44)
[2021-02-28] MEDS: PANTOPRAZOLE 40MG TAB (PROTONIX) PO SCH (09:14)
[2021-02-28] MEDS: MIDODRINE 5 MG TAB PO SCH ×3 (09:15→16:00)
[2021-02-28] MEDS: levETIRAcetam 250MG TABLET (KEPPRA) PO SCH (09:15)
[2021-02-28] MEDS: AMIODARONE 200 MG TAB (PACERONE) PO SCH (09:15)
[2021-02-28] MEDS: CALCITRIOL 0.25 MCG CAP (S0169) PO SCH (09:15)
[2021-02-28] MEDS: SERTRALINE 100 MG TAB PO SCH (09:15)
[2021-02-28] MEDS: DIMETHICONE 2% OINTMENT(VANICREAM) 70GM TUBE TOP SCH ×2 (09:16→21:26)
[2021-02-28] MEDS: NYSTATIN 100,000 UNITS/GM TOPICAL PWD 15 GM TOP SCH ×2 (09:16→21:27)
--- NOTE | 2021-02-28 10:36 | IPN ---
PROGRESS NOTE DATE: 02/27/2021 SUBJECTIVE: Matthew is seen and examined this morning in the hemodialysis unit receiving his maintenance treatment. His dialysis has been uneventful. We are removing 3 liters with his treatment today. He offers no complaints, is resting comfortably. PHYSICAL EXAMINATION: VITAL SIGNS: Temperature 97.9, pulse 62, respiratory rate 18, blood pressure 165/75, saturating 99% on trach collar. Intake yesterday was 1600. Weight on the bed scale is not recorded. GENERAL: The patient is seen sleeping comfortably, receiving his dialysis treatment, easily arousable. Attempts to converse by mouthing. HEENT: Extraocular muscles are intact. Tongue is moist. There is a trach collar. HEART: Heart sounds are S1, S2, distant secondary to body habitus. LUNGS: Anterior auscultation of the chest reveals no crackle, rale, or rhonchus. There is symmetric air movement. ABDOMEN: Soft, obese and nontender. EXTREMITIES: There are waffle boots on his feet and there is decreased range of motion of the lower extremities. There is trace thigh and dependent edema. His fistula is patent and in use in the right arm. NEUROLOGIC: He is at baseline mentation. He attempts to communicate by mouthing words. Most recent laboratory studies are reviewed from February 24 showing sodium 139, potassium 4.5, bicarbonate 24, and phosphorus of 6.7. His parathyroid hormone level was drawn today, 537. INPATIENT MEDICATIONS: Reviewed myself and no changes noted as compared to prior days. PROBLEMS: 1. End-stage renal disease on hemodialysis on Wednesday, , Wednesday schedule. The patient is dialyzed today per his maintenance schedule. His goal fluid removal has been 3.0 to 3.5 liters. His volume status is acceptable. His electrolytes are acceptable. His fistula is in good use. I am making no change to the current dialysis prescription. 2. Secondary hyperparathyroidism of renal origin. His parathyroid hormone level has finally come back within goal range. It was as high as 1,000 in December and it is down to 537 today and he continues on calcitriol. His phosphorus remains above goal and he is on Renvela. He occasionally has been missing dosages and refusing dosages. 3. Hypotension of hemodialysis. The patient continues with midodrine and he has been tolerating fluid removal with dialysis and no changes are being made. It is a chronic condition for him. 4. Anemia of chronic renal failure. Hemoglobin level is at goal (10-11). MTDD
--- NOTE | 2021-02-28 11:21 | IPNPDOC ---
Text Note Date of Service The patient was seen on 02/27/21. NOTE SUBJECTIVE: No issues this week except for the on going left lower jaw tooth ache. He used to see Dr Lei. OBJECTIVE: VITAL SIGNS: Please see below. Afebrile. No hypoxemia GENERAL: Awake and alert. HEENT: PERRLA, EOMI, New tracheostomy in place. CARDIOVASCULAR: Normal S1, S2. No M/R/G RESPIRATORY: diminished, otherwise breathing comfortably, tracheostomy status. ABDOMINAL: obese abdomen, soft, non tender, normal bowel sounds. EXTREMITIES: chronic zhen stasis dermatitis, heel float boots NEUROLOGICAL: AAO x 3, no focal neuro deficit Labs: reviewed ASSESSMENT and PLAN: 50 year old male with multiple comorbidities including ESRD on hemodialysis, Morbid obesity/ NISA/obesity hypoventilation with tracheostomy since 2003 now with tracheal stenosis , has copious secretions, pending placement to facility, has recurrent blockages of his tracheostomy tube due to copious secretions causing recurrent acute hypercarbic resp failure on his chronic resp failure. His tracheostomy needs changed every 2 to 3 months. Last changed on 01/01/21. Chronic respiratory failure with hypoxia and hypercarbia secondary to restrictive lung disease from his obesity, obesity hypoventilation. Has tracheostomy Changed tracheostomy tube on 01/01/21 albuterol , budesonide , formoterol nebs. Has not been using the CPAP. Says it dries his secretions and there is too much pressure. 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 Episodes of Acute on Chronic respiratory failure with hypoxia and hypercarbia with acute metabolic encephalopathy due to hypercarbia during his prolonged hospitalization. Due to blockage of tracheostomy with large secretions He was taken of alprazolam and placed on prn clonazepam. His Seroquel was increased His nebs were changed form duonebs to albuterol only. Placement is unknown at this time due to some issues with patient not being able to suction himself. Morbid obesity/ NISA using only trach collar Has not been using the CPAP Severe spinal stenosis chronic pain on oxycodone prn Functional paraparesis and paresis of right upper extremity bed bound. ESRD on hemodialysis, secondary hyperparathyroidism. Mineral bone disease Renvela and Velphoro, calcitriol HD on , , wed. GERD PPI Depression/ Anxiety Was seen by psych this admission. on sertraline, clonazepam. Paroxysmal Atrial fibrillation on amiodarone Seizure disorder on keppra Hypotension. C/w midodrine on dialysis days. Anemia. Stable, monitor and transfuse if indicated. hemoglobin level is optimal On Aranesp Debility Chronically bedridden. Awaiting placement to halfway Restless legs pramipexole. Incontinence-associated dermatitis/moisture associated skin damage wound consult provided by Dr. Goncalves on 12/25/20 wound care instructions are ordered. Clean with Johnsons baby shampoo, vashe for 10 min, apply interdry. bilateral heel float boots, ABD pad under straps to protect skin on top of boot Tooth pain Hx of requiring teeth pulled He sees oral surgeon Dr Lei. Will try to see if it can be arranged int OR here. DVT prophylaxis Heparin subcutaneous VS,Fishbone, I+O VS, Fishbone, I+O Vital Signs Date Time Temp Pulse Resp B/P (MAP) Pulse Ox O2 Delivery O2 Flow Rate FiO2 02/27/21 07:50 5.0 28 02/27/21 06:23 97.9 62 18 165/75 (105) 99 Trach Collar I&O- Last 24 Hours up to 6 AM 02/27/21 06:00 Intake Total 1560 ml Output Total 0 ml Balance 1560 ml NATALY CLEARY MD February 27, 2021 18:47
[2021-02-28 12:00] VITALS: BP 149/68
[2021-02-28] MEDS: oxyCODONE 5MG TAB PO PRN ×2 (12:27→21:26)
[2021-02-28] MEDS: clonazePAM 0.5 MG TAB PO PRN ×2 (12:27→21:25)
[2021-02-28 16:30] VITALS: BP 148/69
[2021-02-28] MEDS: SENOKOT S TAB PO SCH (21:21)
[2021-02-28] MEDS: PRAMIPEXOLE (MIRAPEX) 0.125 MG TAB PO SCH (21:21)
[2021-03-01] MEDS: ALBUTEROL SULFATE 2.5 MG/0.5 ML INH NEB SOLN NEB PRN (04:42)
[2021-03-01 06:00] VITALS: BP 133/63
[2021-03-01] MEDS: guaiFENesin SYRUP 200 MG/10 ML UDC PO SCH ×3 (06:12→17:57)
[2021-03-01] MEDS: HEPARIN SOD (PORCINE) 5000UNITS/ML 1ML VIAL/SYRINGE SQ SCH ×3 (06:13→21:36)
[2021-03-01] MEDS: FORMOTEROL FUMARATE 20 MCG/2 ML INHALATION SOLUTION (PERFOROMIST) INH SCH ×2 (07:28→20:58)
[2021-03-01] MEDS: BUDESONIDE 0.5 MG/2 ML INHALATION SUSPENSION INH SCH ×2 (07:28→20:58)
[2021-03-01] MEDS: ALBUTEROL SULFATE 2.5 MG/0.5 ML INH NEB SOLN NEB SCH ×4 (07:30→20:58)
[2021-03-01] MEDS: (RENVELA) SEVELAMER **CARBONate** 800 MG TAB PO SCH ×3 (07:52→17:57)
[2021-03-01] MEDS: VITAMIN D 1,000 INTERNATIONAL UNITS TABLET PO SCH (07:53)
[2021-03-01] MEDS: levETIRAcetam 250MG TABLET (KEPPRA) PO SCH (07:53)
[2021-03-01] MEDS: SERTRALINE 100 MG TAB PO SCH (07:54)
[2021-03-01] MEDS: PANTOPRAZOLE 40MG TAB (PROTONIX) PO SCH (07:54)
[2021-03-01] MEDS: DIMETHICONE 2% OINTMENT(VANICREAM) 70GM TUBE TOP SCH ×2 (07:59→21:37)
[2021-03-01] MEDS: NYSTATIN 100,000 UNITS/GM TOPICAL PWD 15 GM TOP SCH ×2 (07:59→21:36)
[2021-03-01] MEDS: AMIODARONE 200 MG TAB (PACERONE) PO SCH (08:00)
[2021-03-01] MEDS: MIDODRINE 5 MG TAB PO SCH ×3 (08:00→17:56)
[2021-03-01] MEDS: PRAMIPEXOLE (MIRAPEX) 0.125 MG TAB PO SCH (21:37)
[2021-03-01] MEDS: SENOKOT S TAB PO SCH (21:37)
[2021-03-01] MEDS: clonazePAM 0.5 MG TAB PO PRN (21:43)
[2021-03-01] MEDS: oxyCODONE 5MG TAB PO PRN (21:43)
[2021-03-02] MEDS: guaiFENesin SYRUP 200 MG/10 ML UDC PO SCH ×5 (00:28→17:38)
[2021-03-02] MEDS: HEPARIN SOD (PORCINE) 5000UNITS/ML 1ML VIAL/SYRINGE SQ SCH ×5 (05:12→23:54)
[2021-03-02 06:00] VITALS: BP 152/67
[2021-03-02] MEDS: ALBUTEROL SULFATE 2.5 MG/0.5 ML INH NEB SOLN NEB SCH ×4 (07:26→18:16)
[2021-03-02] MEDS: FORMOTEROL FUMARATE 20 MCG/2 ML INHALATION SOLUTION (PERFOROMIST) INH SCH ×2 (07:26→18:16)
[2021-03-02] MEDS: BUDESONIDE 0.5 MG/2 ML INHALATION SUSPENSION INH SCH ×2 (07:26→18:16)
[2021-03-02] MEDS: SERTRALINE 100 MG TAB PO SCH (09:35)
[2021-03-02] MEDS: (RENVELA) SEVELAMER **CARBONate** 800 MG TAB PO SCH ×3 (09:35→17:38)
[2021-03-02] MEDS: VITAMIN D 1,000 INTERNATIONAL UNITS TABLET PO SCH (09:35)
[2021-03-02] MEDS: AMIODARONE 200 MG TAB (PACERONE) PO SCH (09:36)
[2021-03-02] MEDS: levETIRAcetam 250MG TABLET (KEPPRA) PO SCH (09:36)
[2021-03-02] MEDS: PANTOPRAZOLE 40MG TAB (PROTONIX) PO SCH (09:36)
[2021-03-02] MEDS: MIDODRINE 5 MG TAB PO SCH ×3 (09:38→15:51)
[2021-03-02] MEDS: DIMETHICONE 2% OINTMENT(VANICREAM) 70GM TUBE TOP SCH ×2 (09:38→21:49)
[2021-03-02] MEDS: NYSTATIN 100,000 UNITS/GM TOPICAL PWD 15 GM TOP SCH ×2 (09:38→21:49)
[2021-03-02] MEDS: oxyCODONE 5MG TAB PO PRN ×2 (09:41→21:50)
--- NOTE | 2021-03-02 19:05 | IPN ---
PROGRESS NOTE DATE: 03/01/2021 Mr. Richard is seen this morning during hemodialysis. He is feeling about the same and denies any complaints. He remains on trach collar for his chronic hypoxemia. His blood pressure was 133/63 earlier, however right now during dialysis it is up to 180/80 mmHg. Patient denies any pain or distress at present. His temperature is 97.3 degrees Fahrenheit, heart rate 70 per minute, and respiratory rate 18 per minute. Oxygen saturation 96% on 5 liters oxygen with trach collar. Head is atraumatic. Tracheostomy is in place. Heart sounds are regular and lungs with diminished breath sounds. Abdomen obese, nontender, and bowel sounds present. Extremities without any cyanosis or clubbing. Right arm arteriovenous (AV) fistula is currently being used for dialysis. He has bilateral lower extremity plegia related to his severe spinal stenosis. Patient did not have any labs drawn since 02/24/2021. PROBLEMS: 1. End-stage renal disease. Patient is being dialyzed and is tolerating dialysis treatment very well. 2. Hypertension. Blood pressure is unusually high today during dialysis. Prior to dialysis, his blood pressure was 130/60 and he did receive his amiodarone dose. We have hold parameters for amiodarone in place. We are trying to remove about 3.5 to 4 liters of fluid as tolerated and I hope that with improvement in his volume status his blood pressure control will be improved. 3. Anemia. His anemia has been stable and improved. He remains on weekly dose of Aranesp and will continue with the same. We will also check his complete blood count (CBC) next week. 4. Hypoxemia. Patient has chronic hypoxemia related to obesity associated hypoventilation and obstructive sleep apnea. Tracheostomy is functioning and we will continue our efforts to maintain his volume status in optimal condition. 5. Hypotension. Patient has chronic hypotension which has now improved with midodrine 10 mg three times a day and we will continue with the same. 6. Hyperparathyroidism. His intact parathyroid hormone (PTH) level is 537. He is currently on calcitriol 0.5 mcg five days a week.
[2021-03-02] MEDS: clonazePAM 0.5 MG TAB PO PRN (21:49)
[2021-03-02] MEDS: SENOKOT S TAB PO SCH (21:50)
[2021-03-02] MEDS: PRAMIPEXOLE (MIRAPEX) 0.125 MG TAB PO SCH (21:50)
[2021-03-02] MEDS: ALBUTEROL SULFATE 2.5 MG/0.5 ML INH NEB SOLN NEB PRN (22:08)
[2021-03-03] VITALS (9 sets, daily range): BP systolic 184–199; BP diastolic 79–93; O2SAT 96–97
[2021-03-03] MEDS: ACETAMINOPHEN TAB 650MG DOSE (2X325MG) PO PRN (04:03)
[2021-03-03] MEDS: guaiFENesin SYRUP 200 MG/10 ML UDC PO SCH ×4 (05:46→17:13)
[2021-03-03] MEDS: BUDESONIDE 0.5 MG/2 ML INHALATION SUSPENSION INH SCH ×2 (07:49→20:09)
[2021-03-03] MEDS: FORMOTEROL FUMARATE 20 MCG/2 ML INHALATION SOLUTION (PERFOROMIST) INH SCH ×2 (07:49→20:09)
[2021-03-03] MEDS: ALBUTEROL SULFATE 2.5 MG/0.5 ML INH NEB SOLN NEB SCH ×4 (07:50→20:00)
[2021-03-03 07:51] LABS: HEMATOCRIT 37.6 % (42.0-52.0); HEMOGLOBIN 10.8 g/dl (13.5-17.5); MEAN CORPUSCULAR HEMOGLOBIN 27.2 pg (27.0-33.0); MEAN CORPUSCULAR HGB CONC 28.7 g/dl (32.0-36.5); MEAN CORPUSCULAR VOLUME 94.7 fl (80.0-96.0); PLATELET COUNT, AUTOMATED 145 10^3/uL (150-450); RED BLOOD COUNT 3.97 10^6/uL (4.30-6.10); WHITE BLOOD COUNT 8.4 10^3/uL (4.0-10.0)
[2021-03-03] MEDS: (RENVELA) SEVELAMER **CARBONate** 800 MG TAB PO SCH ×6 (08:00→17:59)
[2021-03-03] MEDS: MIDODRINE 5 MG TAB PO SCH ×3 (08:00→15:17)
[2021-03-03 08:03] LABS: CALCIUM LEVEL 9.5 MG/DL (8.5-10.1); CREATININE FOR GFR 5.93 MG/DL (0.70-1.30); GLOMERULAR FILTRATION RATE 10.9 (>60); POTASSIUM SERUM 4.7 MEQ/L (3.5-5.1)
[2021-03-03] MEDS: VITAMIN D 1,000 INTERNATIONAL UNITS TABLET PO SCH (08:29)
[2021-03-03] MEDS: PANTOPRAZOLE 40MG TAB (PROTONIX) PO SCH (08:29)
[2021-03-03] MEDS: levETIRAcetam 250MG TABLET (KEPPRA) PO SCH (08:30)
[2021-03-03] MEDS: SERTRALINE 100 MG TAB PO SCH (08:30)
[2021-03-03] MEDS: CALCITRIOL 0.25 MCG CAP (S0169) PO SCH (08:30)
[2021-03-03] MEDS: NYSTATIN 100,000 UNITS/GM TOPICAL PWD 15 GM TOP SCH ×2 (08:31→20:07)
[2021-03-03] MEDS: DIMETHICONE 2% OINTMENT(VANICREAM) 70GM TUBE TOP SCH ×2 (08:31→20:07)
[2021-03-03] MEDS: AMIODARONE 200 MG TAB (PACERONE) PO SCH (08:32)
--- NOTE | 2021-03-03 09:15 | CR ---
CONSULTATION DATE: 03/03/2021 REQUESTING PHYSICIAN: Danyell Bernal MD of the hospitalist service. HISTORY OF PRESENT ILLNESS: The patient has had significant plugging over the weekend with respiratory therapy indicating that he is getting more and more difficult to suction. His tracheostomy was last changed in December and it is now due for another change. PLAN: I will therefore take him to the operating room to replace his single cannula tube, which was placed secondary to his tracheal stenosis at [facility] last year. I will again replace it under anesthesia with possible need for tracheal dilatation once again. I will also inspect the trachea by bronchoscopy.
[2021-03-03] MEDS ORDERED: LIDOCAINE W/EPINEPHRINE 1% 20ML VIAL As Ordered ONE (10:24)
[2021-03-03] MEDS ORDERED: CETACAINE SPRAY 5GM As Ordered ONE (10:24)
[2021-03-03] MEDS ORDERED: ONDANSETRON 4MG/2ML VIAL IV PRN (12:25)
[2021-03-03] MEDS ORDERED: LR 1,000 ML IV SCH (12:25)
[2021-03-03] MEDS: HEPARIN SOD (PORCINE) 5000UNITS/ML 1ML VIAL/SYRINGE SQ SCH ×2 (14:47→21:49)
--- NOTE | 2021-03-03 16:01 | RO ---
OPERATIVE NOTE DATE OF OPERATION: 03/03/2021 PREPROCEDURE DIAGNOSIS: Tracheal stenosis, tracheostomy obstruction. POSTPROCEDURE DIAGNOSIS: Tracheal stenosis, tracheostomy obstruction. PROCEDURE: Bronchoscopy, tracheal dilation, and trach change with a #8 Bivona 120 cm long tracheostomy tube. SURGEON: Anatoly Ortega M.D. DATA TYPIST: None. ANESTHESIA: General. FINDINGS: The tracheostomy tube was severely narrowed with inspissated secretions. It was so narrow I could neither get the regular or the pediatric scope through the tube. Therefore, the entire tube had to be removed after placing a guidewire. After removing the tube, bronchoscopy revealed the tracheal stenosis, which looked to be improved without as much granulation tissue. DESCRIPTION OF PROCEDURE: Under satisfactory general anesthesia, bronchoscope was attempted to be passed through the tube and would not go. Pediatric bronchoscope was placed and that also would not go through the tube being severely obstructed with inspissated secretions. A wire was then placed through the tube with some difficulty because of the inspissated secretions and obstruction. Nonetheless, the wire did eventually go and once past the end of the tube it slid easily. The tube was removed over the wire and a bronchoscope placed within the tracheostomy. Thorough inspection of the trachea, right and left mainstem bronchi revealed increased secretions, which were suction aspirated. The tracheal stenosis was noted approximately 2 cm below the trachea stem. It was quite dynamic and occlusive with inspiration. A #8 120 cm Bivona tracheostomy tube was then placed over a dilator and the dilator placed over the wire with the tracheostomy following it. The dilator and wire were removed. It was connected to the anesthesia apparatus with good end-tidal CO2 return. Tracheostomy tube was secured with velcro straps. The patient tolerated the procedure well and left the operating room in satisfactory condition to the recovery room.
[2021-03-03] MEDS ORDERED: amLODIPine 5 MG TAB PO ONE (16:30)
[2021-03-03] MEDS: SENOKOT S TAB PO SCH (20:06)
[2021-03-03] MEDS: clonazePAM 0.5 MG TAB PO PRN (20:07)
[2021-03-03] MEDS: oxyCODONE 5MG TAB PO PRN (20:07)
[2021-03-03] MEDS: PRAMIPEXOLE (MIRAPEX) 0.125 MG TAB PO SCH (20:07)
[2021-03-04] MEDS: guaiFENesin SYRUP 200 MG/10 ML UDC PO SCH ×4 (00:12→17:29)
[2021-03-04] MEDS: HEPARIN SOD (PORCINE) 5000UNITS/ML 1ML VIAL/SYRINGE SQ SCH ×3 (05:15→20:40)
[2021-03-04] MEDS: CALCITRIOL 0.25 MCG CAP (S0169) PO SCH (05:16)
[2021-03-04] MEDS: VITAMIN D 1,000 INTERNATIONAL UNITS TABLET PO SCH (05:16)
[2021-03-04] MEDS: PANTOPRAZOLE 40MG TAB (PROTONIX) PO SCH (05:16)
[2021-03-04] MEDS: AMIODARONE 200 MG TAB (PACERONE) PO SCH (05:16)
[2021-03-04] MEDS: SERTRALINE 100 MG TAB PO SCH (05:16)
[2021-03-04] MEDS: levETIRAcetam 250MG TABLET (KEPPRA) PO SCH (05:16)
[2021-03-04 06:00] VITALS: BP 188/86
[2021-03-04] MEDS: BUDESONIDE 0.5 MG/2 ML INHALATION SUSPENSION INH SCH ×2 (07:08→20:06)
[2021-03-04] MEDS: FORMOTEROL FUMARATE 20 MCG/2 ML INHALATION SOLUTION (PERFOROMIST) INH SCH ×2 (07:08→20:06)
[2021-03-04] MEDS: ALBUTEROL SULFATE 2.5 MG/0.5 ML INH NEB SOLN NEB SCH ×4 (07:09→20:00)
[2021-03-04] MEDS: MIDODRINE 5 MG TAB PO SCH ×3 (08:00→17:29)
[2021-03-04] MEDS: (RENVELA) SEVELAMER **CARBONate** 800 MG TAB PO SCH ×4 (08:00→18:00)
--- NOTE | 2021-03-04 12:27 | IPN ---
PROGRESS NOTE DATE: 03/04/2021 SUBJECTIVE: Mr. Richard is seen this morning during hemodialysis. He is resting with his trach collar on. No acute problems have been reported. OBJECTIVE: VITAL SIGNS: Temperature is 96.2 degrees Fahrenheit, heart rate 70 per minute and respiratory rate 20 per minute. Blood pressure is about 150/80 mmHg now where earlier it was higher. Midodrine has been held. HEAD AND NECK: His head is atraumatic. Neck is supple and JVD difficult to be assessed. Tracheostomy is in place. HEART: Heart sounds are regular. LUNGS: Diminished breath sounds bilaterally. ABDOMEN: Obese and nontender. EXTREMITIES: Without any cyanosis or clubbing. Right now AV fistula is being used for dialysis. Bilateral lower extremity plegia is unchanged related to his severe spinal stenosis. LABORATORY DATA: His labs done yesterday showed a WBC count of 8.4, hemoglobin 10.8, and hematocrit 37.6. Sodium is 136. Potassium is 4.7. CO2 26, BUN 49 and creatinine 5.93. PROBLEMS: 1. Endstage renal disease. Patient is being dialyzed and he is tolerating dialysis treatment well. 2. Hypertension, his blood pressure is unusually high, probably he is somewhat volume overloaded. We are trying to remove about 3.5 liters of fluid today. Midodrine is being held. 3. Anemia. His anemia has improved and is stable. No intervention is needed. 4. Respiratory failure. Patient is at his chronic stable status with the tracheostomy. Volume status seems to be reasonably well compensated and we will continue our efforts to maintain euvolemic state.
[2021-03-04] MEDS: oxyCODONE 5MG TAB PO PRN (14:15)
[2021-03-04] MEDS: DIMETHICONE 2% OINTMENT(VANICREAM) 70GM TUBE TOP SCH ×2 (14:15→21:00)
[2021-03-04] MEDS: NYSTATIN 100,000 UNITS/GM TOPICAL PWD 15 GM TOP SCH ×2 (14:15→21:00)
[2021-03-04 20:15] VITALS: O2SAT 97
[2021-03-04] MEDS: ACETAMINOPHEN TAB 650MG DOSE (2X325MG) PO PRN (20:40)
[2021-03-04] MEDS: SENOKOT S TAB PO SCH (20:40)
[2021-03-04] MEDS: PRAMIPEXOLE (MIRAPEX) 0.125 MG TAB PO SCH (20:41)
[2021-03-04] MEDS: clonazePAM 0.5 MG TAB PO PRN (20:41)
[2021-03-05] MEDS: oxyCODONE 5MG TAB PO PRN ×3 (00:21→22:00)
[2021-03-05] MEDS: guaiFENesin SYRUP 200 MG/10 ML UDC PO SCH ×5 (00:22→23:11)
[2021-03-05] MEDS: ALBUTEROL SULFATE 2.5 MG/0.5 ML INH NEB SOLN NEB PRN ×2 (04:22→23:51)
[2021-03-05 05:14] VITALS: BP 95/65
[2021-03-05] MEDS: ACETAMINOPHEN TAB 650MG DOSE (2X325MG) PO PRN (05:35)
[2021-03-05] MEDS: HEPARIN SOD (PORCINE) 5000UNITS/ML 1ML VIAL/SYRINGE SQ SCH ×3 (05:36→22:01)
[2021-03-05] MEDS: clonazePAM 0.5 MG TAB PO PRN ×2 (05:36→22:00)
[2021-03-05] MEDS: FORMOTEROL FUMARATE 20 MCG/2 ML INHALATION SOLUTION (PERFOROMIST) INH SCH ×2 (07:17→20:08)
[2021-03-05] MEDS: BUDESONIDE 0.5 MG/2 ML INHALATION SUSPENSION INH SCH ×2 (07:17→20:08)
[2021-03-05] MEDS: ALBUTEROL SULFATE 2.5 MG/0.5 ML INH NEB SOLN NEB SCH ×4 (07:17→20:00)
[2021-03-05] MEDS: CALCITRIOL 0.25 MCG CAP (S0169) PO SCH (09:13)
[2021-03-05] MEDS: AMIODARONE 200 MG TAB (PACERONE) PO SCH (09:14)
[2021-03-05] MEDS: VITAMIN D 1,000 INTERNATIONAL UNITS TABLET PO SCH (09:14)
[2021-03-05] MEDS: MIDODRINE 5 MG TAB PO SCH ×3 (09:14→17:40)
[2021-03-05] MEDS: PANTOPRAZOLE 40MG TAB (PROTONIX) PO SCH (09:14)
[2021-03-05] MEDS: SERTRALINE 100 MG TAB PO SCH (09:14)
[2021-03-05] MEDS: levETIRAcetam 250MG TABLET (KEPPRA) PO SCH (09:14)
[2021-03-05] MEDS: (RENVELA) SEVELAMER **CARBONate** 800 MG TAB PO SCH ×3 (09:15→17:40)
[2021-03-05] MEDS: NYSTATIN 100,000 UNITS/GM TOPICAL PWD 15 GM TOP SCH ×2 (09:18→22:35)
[2021-03-05] MEDS: DIMETHICONE 2% OINTMENT(VANICREAM) 70GM TUBE TOP SCH ×2 (09:18→22:35)
[2021-03-05] MEDS: SENOKOT S TAB PO SCH (21:00)
[2021-03-05] MEDS: PRAMIPEXOLE (MIRAPEX) 0.125 MG TAB PO SCH (23:11)
[2021-03-06] VITALS (67 sets, daily range): BP systolic 75–132; BP diastolic 33–63
[2021-03-06] MEDS ORDERED: clonazePAM 0.5 MG TAB PO ONE (00:55)
[2021-03-06] MEDS: guaiFENesin SYRUP 200 MG/10 ML UDC PO SCH ×4 (04:47→23:42)
[2021-03-06] MEDS: HEPARIN SOD (PORCINE) 5000UNITS/ML 1ML VIAL/SYRINGE SQ SCH ×2 (04:47→14:17)
[2021-03-06] MEDS: clonazePAM 0.5 MG TAB PO PRN ×2 (06:30→18:49)
[2021-03-06] MEDS: BUDESONIDE 0.5 MG/2 ML INHALATION SUSPENSION INH SCH ×2 (07:53→19:50)
[2021-03-06] MEDS: FORMOTEROL FUMARATE 20 MCG/2 ML INHALATION SOLUTION (PERFOROMIST) INH SCH ×2 (07:53→19:50)
[2021-03-06] MEDS: ALBUTEROL SULFATE 2.5 MG/0.5 ML INH NEB SOLN NEB SCH ×4 (07:53→19:50)
[2021-03-06] MEDS: (RENVELA) SEVELAMER **CARBONate** 800 MG TAB PO SCH ×3 (08:00→18:00)
[2021-03-06] MEDS: AMIODARONE 200 MG TAB (PACERONE) PO SCH (09:00)
[2021-03-06] MEDS: VITAMIN D 1,000 INTERNATIONAL UNITS TABLET PO SCH (09:01)
[2021-03-06] MEDS: PANTOPRAZOLE 40MG TAB (PROTONIX) PO SCH (09:02)
[2021-03-06] MEDS: levETIRAcetam 250MG TABLET (KEPPRA) PO SCH (09:02)
[2021-03-06] MEDS: CALCITRIOL 0.25 MCG CAP (S0169) PO SCH (09:02)
[2021-03-06] MEDS: SERTRALINE 100 MG TAB PO SCH (09:02)
[2021-03-06] MEDS: MIDODRINE 5 MG TAB PO SCH ×3 (09:03→16:12)
[2021-03-06] MEDS: DIMETHICONE 2% OINTMENT(VANICREAM) 70GM TUBE TOP SCH ×2 (09:04→20:48)
[2021-03-06] MEDS: NYSTATIN 100,000 UNITS/GM TOPICAL PWD 15 GM TOP SCH ×2 (09:04→20:47)
--- NOTE | 2021-03-06 09:38 | REP ---
INDICATION: sob trach. COMPARISON: 02/02/2021. TECHNIQUE: Single portable AP view of the chest was performed. FINDINGS: Diffusely coarsened interstitial markings bilaterally are unchanged. Cardiomegaly is unchanged. The mediastinal silhouette is unchanged. Tracheostomy tube is unchanged in position. IMPRESSION: Stable exam with no new findings. <Electronically signed by Last Lin > 03/06/21 [id number]
[2021-03-06 09:46] LABS: HEMATOCRIT 40.8 % (42.0-52.0); HEMOGLOBIN 11.5 g/dl (13.5-17.5); MEAN CORPUSCULAR HEMOGLOBIN 27.3 pg (27.0-33.0); MEAN CORPUSCULAR HGB CONC 28.2 g/dl (32.0-36.5); MEAN CORPUSCULAR VOLUME 96.7 fl (80.0-96.0); PLATELET COUNT, AUTOMATED 151 10^3/uL (150-450); RED BLOOD COUNT 4.22 10^6/uL (4.30-6.10); WHITE BLOOD COUNT 27.4 10^3/uL (4.0-10.0)
[2021-03-06 10:19] LABS: LYMPHOCYTES 5 % (16-44); NEUTROPHILS 80 % (28-66)
[2021-03-06 10:20] LABS: PLATELET ESTIMATE NORMAL (NORMAL); TOXIC VACUOLATION 3+
[2021-03-06 10:21] LABS: ANISOCYTOSIS 2+; POIKILOCYTOSIS 1+; POLYCHROMASIA 1+
[2021-03-06 10:27] LABS: ALBUMIN 2.4 GM/DL (3.2-5.2); ALT/SGPT 73 U/L (12-78); BILIRUBIN,TOTAL 4.8 MG/DL (0.2-1.0); BLOOD UREA NITROGEN 62 MG/DL (7-18); CALCIUM LEVEL 9.3 MG/DL (8.5-10.1); CARBON DIOXIDE LEVEL 16 MEQ/L (21-32); CHLORIDE LEVEL 101 MEQ/L (98-107); CK-MB VALUE MASS < 1.0 NG/ML (<3.6); CPK CREATINE PHOSPHOKINASE 51 U/L (39-308); CREATININE FOR GFR 6.99 MG/DL (0.70-1.30); GLUCOSE, FASTING 48 MG/DL (70-100); MAGNESIUM LEVEL 1.7 MG/DL (1.8-2.4); MB/CK RELATIVE INDEX 1.96 (< OR =4); SODIUM LEVEL 136 MEQ/L (136-145); TOTAL PROTEIN 5.6 GM/DL (6.4-8.2); TROPONIN I 0.03 NG/ML (< 0.10)
[2021-03-06] MEDS ORDERED: NS 1,000 ML IV ONE (10:45)
--- NOTE | 2021-03-06 10:46 | IPNPDOC ---
Date Seen The patient was seen on 03/06/21. Progress Note addendum to progress note: sepsis -wbc 27, lactic acid 9, bandemia w c/o cough sob. -empiric iv vanco meropenem renally dosed by pharmacy -ivfluids 1liter, ct chest/abd/pelvis -transferred to pcu -ID consulted. VS, I&O, 24H, Fishbone Vital Signs/I&O Vital Signs Date Time Temp Pulse Resp B/P (MAP) Pulse Ox O2 Delivery O2 Flow Rate FiO2 03/06/21 08:00 8.0 35 03/06/21 05:14 60 105/63 (77) 03/06/21 04:57 96.7 20 94 Trach Collar I&O- Last 24 Hours up to 6 AM 03/06/21 06:00 Intake Total 860 ml Output Total 0 ml Balance 860 ml Laboratory Data 24H LABS Laboratory Tests 2 03/06/21 09:28: Immature Granulocyte % (Auto) , Neutrophils (%) (Auto) , Nucleated Red Blood Cells % (auto) 0.2H, Neutrophils 80H, Band Neutrophils 15H, Lymphocytes (Manual) 5L, Polychromasia 1+, Poikilocytosis 1+, Anisocytosis 2+, Acanthocytes 1+, Toxic Vacuolation 3+, Platelet Estimate NORMAL, Anion Gap 19H, Glomerular Filtration Rate 9.0L, Lactic Acid Level 9.1*H, Calcium Level 9.3, Magnesium Level 1.7L, Total Bilirubin 4.8H, Aspartate Amino Transf (AST/SGOT) 108H, Alanine Aminotransferase (ALT/SGPT) 73, Alkaline Phosphatase 243H, Ammonia 23, Total Creatine Kinase 51, Creatine Kinase MB < 1.0, Creatine Kinase MB Relative Index 1.96, Troponin I 0.03, C-Reactive Protein, Quantitative 24.30H, Total Protein 5.6L, Albumin 2.4L, Albumin/Globulin Ratio 0.8 CBC/BMP Laboratory Tests 03/06/21 09:28 Microbiology Microbiology 03/06/21 Blood Culture, Received Pending HERNÁN ROUSE MD March 06, 2021 10:46
[2021-03-06 11:02] LABS: ERYTHROCYTE SEDIMENTATION RATE 29 mm/hr (0-15)
--- NOTE | 2021-03-06 11:17 | IPN ---
PROGRESS NOTE DATE: 03/06/2021 SUBJECTIVE: The patient is being transferred to PCU due to worsening respiratory distress, complains of cough, diarrhea, chest pain, pressure, tightness this morning without fever or chills. White count is 27,000. OBJECTIVE: VITAL SIGNS: Temperature is 96.7, pulse 98, respiratory rate 20, blood pressure is 105/63, 94%. Trach collar 9 liters oxygen, 35% FIO2. GENERAL: Patient has difficulty speaking secondary to trach. He is able to nod his head yes or no. HEENT: Anicteric. No jaundice. Tracheostomy noted. NECK: No JVD. LUNGS: Diminished with bilateral wheezing, coarse breath sounds. HEART: S1 and S2, sinus rhythm. ABDOMEN: Morbidly obese, soft, nontender and nondistended. EXTREMITIES: No cyanosis or clubbing. Radial fistula. Patient has bilateral lower extremity hemiplegia due to severe spinal stenosis. LABORATORY DATA: White count 27, hemoglobin 11, hematocrit 40, platelet count 151,000. Metabolic panel, liver function tests, procalcitonin, ESR, CRP, pending. IMAGING STUDIES: Chest x-ray: Stable exam, no new findings. Diffuse and coarsened interstitial markings bilaterally unchanged, cardiomegaly is unchanged. Tracheostomy is unchanged in position. ASSESSMENT AND PLAN: This is a 50-year-old morbidly obese male with BMI of 52.5 with endstage renal disease on maintenance dialysis. Sputum culture with pseudomonas and MRSA, status post tracheostomy by Dr. Anatoly Ortega with a history of significant mucous plugging and mild clearance of secretions, tracheostomy changed every 2-3 months, admitted on December 23, awaiting placement. Patient had recurrent acute hypercarbic respiratory failure on chronic respiratory failure, currently with the following issues: 1. Leukocytosis, rule out health care associated pneumonia with MRSA and pseudomonas on previous sputum culture. Patient is afebrile with elevated white count to 27,000 with complaints of chest pain and shortness of breath this morning and some diarrhea.Due to bandemia and lactic acidosis, empiric iv vanco and iv meropenem with renal dosing by pharmacy. Will consult Infectious Disease, check procalcitonin level, ESR and CRP, obtain CT of the chest without IV contrast, CT of the abdomen and pelvis with p.o. contrast due to complaints of abdominal pain to rule out acute colitis or possible Clostridium infection. 2. Diarrhea. Patient has been on bowel regimen which we have discontinued today. Obtain GI panel in two days if persistent diarrhea. 3. Endstage renal disease on maintenance dialysis, refusing dialysis today. On chronic Renvela, Velphoro, Calcitriol. Dr. Curtis will discuss with him again if he requires urgent dialysis if he would reconsider dialysis today. 4. 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 Change on 01/01/[address] Ortega. 5. Chronic hypoxic and hypercarbic respiratory failure due to morbid obesity, obesity hypoventilation and restrictive lung disease. Tracheostomy changed on 01/01/2021. He is on Albuterol, Budesonide, Formoterol, has not been using his CPAP. Has had issues with mild secretions of secretions in the past, awaiting arterial blood gas. 6. Functional paraparesis, and paresis of the right upper extremity due to severe spinal stenosis, bed-bound on as needed oxycodone, severe spinal stenosis on p.r.n. Oxycodone. 7. Reflux disease, on PPI. 8. Depression/anxiety, on Sertraline and Clonazepam. 9. Paroxysmal atrial fibrillation, currently rate controlled on chronic amiodarone. 10.History of seizure disorder, on Keppra. Obtain levels today or in the morning. 11.Chronic hypotension, on Midodrine on dialysis days. 12.Anemia of chronic disease on Aranesp. No acute indication for RBC transfusion, restless legs and Pramipexole. 13.Incontinence associated dermatitis with prior recommendations from Dr. Goncalves. Clean with Jordan Baby Shampoo, Vache for 10 minutes, apply InterDry, bilateral heel boots,pad under the straps to protect the skin on top of the boot. 14.Disposition: Patient is transferred to PCU due to worsening white count, on telemetry. MARGO
[2021-03-06] MEDS ORDERED: MAG SULF 1GM/100ML (MAG RUN) 1 GM in IV 1 EA IV ONE (11:25)
[2021-03-06] MEDS ORDERED: DEXTROSE 50% 50 ML SYRINGE IV STA ×2 (11:49→12:41)
[2021-03-06] MEDS ORDERED: NS 1,000 ML IV SCH (11:50)
[2021-03-06] MEDS ORDERED: NOREPINEPHRINE BITARTRATE 8 MG in D5W 492 ML IV SCH ×2 (11:55→13:19)
[2021-03-06] MEDS ORDERED: MEROPENEM INJ 500 MG in IV 1 EA IV ONE (13:00)
--- NOTE | 2021-03-06 13:12 | IPNPDOC ---
Date Seen The patient was seen on 03/06/21. Progress Note ADDENDUM TO PROGRESS NOTE: SEPTIC SHOCK -transferred emergently to ICU for levophed iv gtt -ns iv bolus x 3liters -triple lumen cath for iv abx, ivfluids, iv levophed iv gtt until map 65-70 -surgical consulted for line placement -cxr to r/o pneumothorax -gram negative coverage with iv meropenem renally dosed -gram positive coverage for h/o mrsa in sputum -panculture: blood cx x2 sets, trach sputum cx. -message left for patient's sister, , that pt needed emergent ICU care. VS, I&O, 24H, Fishbone Vital Signs/I&O Vital Signs Date Time Temp Pulse Resp B/P (MAP) Pulse Ox O2 Delivery O2 Flow Rate FiO2 03/06/21 11:45 89 26 76/37 (50) 96 Trach Collar 5.0 28 03/06/21 11:34 97.6 I&O- Last 24 Hours up to 6 AM 03/06/21 06:00 Intake Total 860 ml Output Total 0 ml Balance 860 ml Laboratory Data 24H LABS Laboratory Tests 2 03/06/21 09:28: Immature Granulocyte % (Auto) , Neutrophils (%) (Auto) , Nucleated Red Blood Radha ls % (auto) 0.2H, Neutrophils 80H, Band Neutrophils 15H, Lymphocytes (Manual) 5L, Polychromasia 1+, Poikilocytosis 1+, Anisocytosis 2+, Acanthocytes 1+, Toxic Vacuolation 3+, Platelet Estimate NORMAL, Erythrocyte Sedimentation Rate 29H, Anion Gap 19H, Glomerular Filtration Rate 9.0L, Lactic Acid Level 9.1*H, Calcium Level 9.3, Magnesium Level 1.7L, Total Bilirubin 4.8H, Aspartate Amino Transf (AST/SGOT) 108H, Alanine Aminotransferase (ALT/SGPT) 73, Alkaline Phosphatase 243H, Ammonia 23, Total Creatine Kinase 51, Creatine Kinase MB < 1.0, Creatine Kinase MB Relative Index 1.96, Troponin I 0.03, C-Reactive Protein, Quantitative 24.30H, Total Protein 5.6L, Albumin 2.4L, Albumin/Globulin Ratio 0.8, Procalcitonin 252 03/06/21 11:45: Bedside Glucose (Misc Panel) 49L CBC/BMP Laboratory Tests 03/06/21 09:28 Microbiology Microbiology 03/06/21 Blood Culture, Received Pending 03/06/21 Blood Culture, Received Pending HERNÁN ROUSE MD March 06, 2021 13:12
[2021-03-06] MEDS: NOREPINEPHRINE BITARTRATE 8 MG in D5W 492 ML IV SCH (13:55)
--- NOTE | 2021-03-06 13:58 | REP ---
INDICATION: central line placement r/o pneumothorax. COMPARISON: 03/06/2021, 9:14 a.m.. TECHNIQUE: Single portable AP view of the chest was performed. FINDINGS: The lungs are unchanged in appearance. There is no pneumothorax. The heart mediastinum are unchanged. Tracheostomy tube is again noted in place. IMPRESSION: Lungs are unchanged in appearance. There is no pneumothorax. <Electronically signed by Last Lin > 03/06/21 [id number]
--- NOTE | 2021-03-06 14:15 | REP ---
INDICATION: LINE PLACEMENT. COMPARISON: Today at 1:28 p.m. TECHNIQUE: Portable FINDINGS: The technique utilized in obtaining the radiograph has magnified the cardiac silhouette and accentuated the interstitial markings. The examination is suboptimal. A large portion of the right lung field is not included on the radiograph. Portion of the right mediastinum is not included on the radiograph. In addition, the patient is tilted rotated to the right. There is no change in appearance of the tracheostomy tube. Since last examination left-sided internal jugular central venous catheter has been placed the tip of which is in the distal left brachiocephalic vein horizontally oriented. There are no left lung field changes appreciable. IMPRESSION: 1. Exam limitations as described above. 2. A repeat examination is in order. 3. Central venous catheter as described above. <Electronically signed by Aayush Colbert > 03/06/21 [id number]
[2021-03-06] MEDS: D5W/0.45% SODIUM CHLORIDE 1,000 ML IV SCH (14:19)
[2021-03-06] MEDS: VANCOMYCIN HCL 1,000 MG, VIAL MATE ADAPTER 1 EACH in NS 250 ML IV SCH ×2 (15:10→16:13)
--- NOTE | 2021-03-06 15:27 | ROOPDOC ---
[facility] Report Of Operation Report of Operation DATE OF PROCEDURE: 03/06/21 PREPROCEDURE DIAGNOSES: Urgent need for IV access due to sepsis POSTPROCEDURE DIAGNOSES: Same PROCEDURE: 1. Ultrasound-guided access left internal jugular vein 2. Placement of a non-tunneled triple-lumen catheter left internal jugular vein SURGEON: Priyanka Ybarra MD ANESTHESIA: Local anesthesia only INDICATION FOR PROCEDURE: This is a 50-year-old gentleman with extensive past medical history and extreme morbid obesity, history of right IJ occlusion, and generally an extremely challenging patient for IV access who required urgent IV access due to sepsis and limited options for peripheral IVs. Informed consent was obtained by the general surgeon, Dr. Rodgers, who attempted IJ and subclavian central lines prior to my arrival. Unfortunately, due to the patient's stature and very challenging anatomy, positive times were unsuccessful. I obtained verbal consent from the patient on my arrival into the ICU and he was anxious for the line to be placed. INTERPRETATION: A chest x-ray was obtained stat following line placement. Al though it was not a perfect image as the patient is very large and we did not have a full chest exposure, I was able to see that there was a central line in good position, the tip in the innominate vein despite the line being hubbed at the jugular, due to his massive size. There is no pneumothorax. It is ok to use the central line. REPORT OF OPERATION: The patient's left neck and chest were prepped and draped in a sterile fashion. Timeout was performed. Local anesthesia was administered to the skin and subcutaneous tissue over the jugular vein. Ultrasound was used to guide access to the jugular vein with the access needle with a single stick. A wire was passed through this access and the needle was removed. A dilator was passed over the wire using a Seldinger technique. This triple-lumen catheter was then advanced over the wire. It was secured at the neck with 2 silk sutures. All 3 ports alfredo back and flushed easily. Appropriate caps were placed. Sterile dressings were applied. The patient tolerated the procedure well. ESTIMATED BLOOD LOSS: Approximately 2 mL. COMPLICATIONS: None. PRIYANKA YBARRA MD March 06, 2021 15:27
[2021-03-06] MEDS ORDERED: VANCOMYCIN HCL 1,000 MG, VIAL MATE ADAPTER 1 EACH in NS 250 ML IV SCH (16:00)
[2021-03-06] MEDS ORDERED: **VANCO AFTER HD** MISC XX SCH (16:00)
[2021-03-06] MEDS ORDERED: GASTROGRAFIN SOLUTION 30ML (Q9963) As Ordered ONE (16:09)
[2021-03-06] MEDS: GASTROGRAFIN SOLUTION 30ML PO SCH ×2 (16:13→16:51)
--- NOTE | 2021-03-06 17:17 | IPN ---
NEPHROLOGY PROGRESS NOTE DATE: 03/06/2021 SUBJECTIVE: Mr. Richard is seen this morning at his bedside. Nursing staff reports that he has not been feeling well and has been calling for help frequently through the night. He has been suctioned multiple times, however he is still not feeling good. He has declined to go for dialysis this morning. He is up to 9 liters of oxygen via trach collar. I visited the patient at the bedside. He is not feeling good but could not tell any specific complaints. OBJECTIVE: PHYSICAL EXAMINATION: HEENT: His head is atraumatic. NECK: Tracheostomy is in place. Neck is supple and JVD could not be assessed. HEART: Distant and without a pericardial friction rub. LUNGS: Diminished breath sounds. ABDOMEN: Obese, soft and nontender. EXTREMITIES: Without any cyanosis or clubbing. LABORATORY STUDIES: His labs were ordered after my visit as the patient was not feeling well. His WBC count has come back at 27.4, hemoglobin 11.5 and hematocrit 40.8, platelet count 151. Sodium 136, potassium 4.0, CO2 16, BUN 62 and creatinine 6.99. A lactic acid level is 9.1 and calcium 9.3. PROBLEMS: 1. Hypoxemia his hypoxemia is worsening and I am concerned about the possibility of pneumonia. I would recommend a CT scan of the chest. The patient is also hypertensive considering that 2 days ago his blood pressure was in the 170's. I have discussed with the Hospitalist and recommended to transfer the patient to a monitored setting. 2. End-stage renal disease - The patient has declined to go for dialysis, and I feel that he is not stable for dialysis at present due to low blood pressure and worsening respiratory status. We will see again tomorrow and evaluate him. 3. Hypotension most likely related to sepsis. The patient has an elevated white count and lactic acid level. Most likely he is septic due to pneumonia. I have discussed this with Dr. Alves and recommend a transfer to a monitored setting. Broad spectrum antibiotics are also needed. 4. Respiratory insufficiency this is a chronic issue and the patient is already status post a tracheostomy. Worsening respiratory status is most likely related to pneumonia.
[2021-03-06] MEDS: HumaLOG INSULIN (NovoLOG) PER UNIT SC SCH ×2 (18:00→23:42)
[2021-03-06] MEDS ORDERED: NYSTATIN 100,000 UNITS/GM TOPICAL PWD 15 GM TOP PRN (18:15)
[2021-03-06] MEDS ORDERED: AMIODARONE HCL 150 MG in IV 1 EA IV STA (18:36)
--- NOTE | 2021-03-06 18:40 | IPNPDOC ---
Date Seen The patient was seen on 03/06/21. Progress Note ADDENDUM TO PROGRESS NOTE: NEW ONSET AFIB W RVR: STILL ON LEVOPHED IV GTT FOR SEPTIC SHOCK IV AMIODARONE TO CHEMICALLY CARDIOVERT TO SINUS RHYTHM AVOID BETABLOCKER OR CALCIUM CHANNEL RASHID DUE TO HYPOTENSION RENALLY DOSED ELIQUIS IF NEEDED FOR PERSISTENT RVR, MAY USE AMIODARONE IV GTT PER PROTOCOL CHECK THYROID TESTS FOR BASELINE. VS, I&O, 24H, Fishbone Vital Signs/I&O Vital Signs Date Time Temp Pulse Resp B/P (MAP) Pulse Ox O2 Delivery O2 Flow Rate FiO2 03/06/21 11:45 89 26 76/37 (50) 96 Trach Collar 5.0 28 03/06/21 11:34 97.6 I&O- Last 24 Hours up to 6 AM 03/06/21 06:00 Intake Total 860 ml Output Total 0 ml Balance 860 ml Laboratory Data 24H LABS Laboratory Tests 2 03/06/21 09:28: Immature Granulocyte % (Auto) , Neutrophils (%) (Auto) , Nucleated Red Blood Cells % (auto) 0.2H, Neutrophils 80H, Band Neutrophils 15H, Lymphocytes (Manual) 5L, Polychromasia 1+, Poikilocytosis 1+, Anisocytosis 2+, Acanthocytes 1+, Toxic Vacuolation 3+, Platelet Estimate NORMAL, Erythrocyte Sedimentation Rate 29H, Anion Gap 19H, Glomerular Filtration Rate 9.0L, Lactic Acid Level 9.1*H, Calcium Level 9.3, Magnesium Level 1.7L, Total Bilirubin 4.8H, Aspartate Amino Transf (AST/SGOT) 108H, Alanine Aminotransferase (ALT/SGPT) 73, Alkaline Phosphatase 243H, Ammonia 23, Total Creatine Kinase 51, Creatine Kinase MB < 1.0, Creatine K inase MB Relative Index 1.96, Troponin I 0.03, C-Reactive Protein, Quantitative 24.30H, Total Protein 5.6L, Albumin 2.4L, Albumin/Globulin Ratio 0.8, Procalcitonin 252 03/06/21 11:45: Bedside Glucose (Misc Panel) 49L 03/06/21 12:25: Bedside Glucose (Misc Panel) 42L 03/06/21 12:41: Bedside Glucose (Misc Panel) 105 03/06/21 14:11: Bedside Glucose (Misc Panel) 63L, Lactic Acid Level 6.6*H 03/06/21 14:33: 03/06/21 15:08: Bedside Glucose (Misc Panel) 103 03/06/21 17:28: Bedside Glucose (Misc Panel) 112H CBC/BMP Laboratory Tests 03/06/21 09:28 Microbiology Microbiology 03/06/21 Gram Stain, Received Pending 03/06/21 Sputum Culture, Received Pending 03/06/21 Blood Culture, Received Pending 03/06/21 Blood Culture, Received Pending HERNÁN ROUSE MD March 06, 2021 18:40
--- NOTE | 2021-03-06 18:51 | REPVR ---
PROCEDURE INFORMATION: Exam: CT Chest Without Contrast; Diagnostic Exam date and time: 03/06/2021 10:02 AM Age: 50 years old Clinical indication: Other: Wbc 27 R/O hcap TECHNIQUE: Imaging protocol: Diagnostic computed tomography of the chest without contrast. Radiation optimization: All CT scans at this facility use at least one of these dose optimization techniques: automated exposure control; mA and/or kV adjustment per patient size (includes targeted exams where dose is matched to clinical indication); or iterative reconstruction. COMPARISON: CT Chest without contrast 09/06/2020 11:53 AM FINDINGS: Tubes, catheters and devices: An endotracheal tube is present with its tip in the trachea. Thyroid: Normal thyroid. Lungs: There is atelectasis and infiltrate right mid lung field. There are 2 segments of consolidated lung at the right lung base consistent with atelectasis and pneumonia. There is mild atelectasis and pneumonia in the left lung base. Pleural spaces: There is no evidence of pneumothorax. There are small bilateral pleural effusions. Heart: Which there is moderate cardiomegaly but no evidence of pericardial effusion. Aorta: There is calcification of the aorta consistent with atherosclerotic changes. Lymph nodes: There is small lymph nodes in the mediastinum. Bones/joints: Unremarkable. No acute fracture. Soft tissues: There is no evidence of soft tissue abnormality. IMPRESSION: Areas of atelectasis and pneumonic infiltrate on the right. Electronically signed by: Lul Nicolas On 03/06/2021 18:51:05 PM
--- NOTE | 2021-03-06 19:02 | REPVR ---
PROCEDURE INFORMATION: Exam: CT Abdomen And Pelvis Without Contrast Exam date and time: 03/06/2021 10:03 AM Age: 50 years old Clinical indication: Pain and abnormal findings; Abnormal lab test; Elevated wbc; Abdominal pain; Additional info: Wbc 27 abd pain R/O colitis TECHNIQUE: Imaging protocol: Computed tomography of the abdomen and pelvis without contrast. Radiation optimization: All CT scans at this facility use at least one of these dose optimization techniques: automated exposure control; mA and/or kV adjustment per patient size (includes targeted exams where dose is matched to clinical indication); or iterative reconstruction. COMPARISON: Abdomen, limited US 10/02/2014 7:44 PM FINDINGS: Liver: The Normal appearing liver. Gallbladder and bile ducts: Normal size common bile duct. Pancreas: Normal size pancreas. Spleen: Normal spleen. The urinary bladder is empty normal spleen. Adrenal glands: Normal adrenal glands. Kidneys and ureters: There are multiple calcifications throughout both kidneys. No IV contrast was given during this examination. There is a stone in the right renal pelvis but no evidence of hydronephrosis. There is an exophytic structure from the right kidney measuring 2 cm with peripheral calcification and probably a calcified cyst. Stomach and bowel: Normal appearing small bowel. Appendix: No evidence of appendicitis. Intraperitoneal space: There is no evidence of a mesenteric mass. There is no evidence of pneumoperitoneum. Vasculature: The aorta is normal in size. Lymph nodes: Unremarkable. No enlarged lymph nodes. Urinary bladder: Unremarkable as visualized. Reproductive: Normal size prostate. Bones/joints: Unremarkable. No acute fracture. Soft tissues: Unremarkable. IMPRESSION: Small kidneys with calcifications throughout . Electronically signed by: Lul Nicolas On 03/06/2021 19:02:05 PM
--- NOTE | 2021-03-06 19:10 | CR.PDOC ---
General Date of Consultation: March 06, 2021 Attending Physician: Lyndon Quesada MD Consultation REASON FOR CONSULTATION: Septic shock HISTORY OF PRESENT ILLNESS: Matthew Richard is a 50 YO M with history of ESRD on HD, chronic respiratory failure with tracheostomy on chronic ventilatory support who has been hospitalized at [facility] since 04/2020. He was transferred to the ICU by hospitalist team earlier today for hypotension, leukocytosis, lactic acidosis with concern for septic shock. The patient had been complaining of not feeling well this morning and refused his scheduled dialysis session. While he has no had an increased oxygen requirement, his blood pressure has gone down to 76/37. He is now requiring 10mcg of Levophed and has been started on broad spectrum antibiotics. Infectious disease was consulted for antibiotic management in the setting of septic shock. He has no NV or diarrhea, phlegm yellow , has rash on buttock and between butt cheeks per nurses. His last ATBX coruse was 12/15-12/22 for pseudomonas / MRSA pneumonia ALLERGIES: Please see below. HOME MEDICATIONS: Please see below. PAST MEDICAL HISTORY: 1. Renal failure on chronic renal dialysis with AV fistula 2. Immobility. 3. Complete dependence including personal care. 4. Obstructive sleep apnea as noted above. 5. Hyperlipidemia. 6. Morbid obesity. 7. Depression. 8. Arthritis of knees, hips, back and spine. 9. Prior mental health hospitalization with suicidal ideation. PAST SURGICAL HISTORY: 1. Tracheostomy FAMILY HISTORY: reviewed and noncontributory SOCIAL HISTORY: Patient has been hospitalized at [facility] since 07/2020 REVIEW OF SYSTEMS: Unable to obtain ROS as patient is nonverbal PHYSICAL EXAMINATION: VITAL SIGNS: Please see below. GENERAL APPEARANCE: laying flat in bed, calm, cooperative, only able to mouth words, does not appear in any acute distress HEENT: mucus membranes dry, normocephalic, atraumatic, tracheostomy tube in place with some granualated tissue and pus-filled drainage surrounding it RESPIRATORY: difficult to auscultate but decreased breath sounds throughout all lung kline CARDIOVASCULAR: difficult to appreciate due to size but 2/6 YOUSUF in RUSB, no rubs/gallops, normal S1/S2 ABDOMEN: Tender to light palpation in all 4 quadrants, +BS, no discernable masses or organomegaly EXTREMITIES: AV fistula in place in R and left wrists. There is a small pressure ulcer from neuro-boots on R dorsal aspect of foot. Bilateral LE are contracted SKIN: Large area that appears purplish-pink and excoriated on his buttocks and lower back extending to his scrotum, between cheeks erythema moisture , no decub NEUROLOGICAL: unable to examine PSYCHIATRIC: unable to examine LABORATORY DATA: Please see below. IMAGING: CT CHEST: FINDINGS: Tubes, catheters and devices: An endotracheal tube is present with its tip in the trachea. Thyroid: Normal thyroid. Lungs: There is atelectasis and infiltrate right mid lung field. There are 2 segments of consolidated lung at the right lung base consistent with atelectasis and pneumonia. There is mild atelectasis and pneumonia in the left lung base. Pleural spaces: There is no evidence of pneumothorax. There are small bilateral pleural effusions. Heart: Which there is moderate cardiomegaly but no evidence of pericardial effusion. Aorta: There is calcification of the aorta consistent with atherosclerotic changes. Lymph nodes: There is small lymph nodes in the mediastinum. Bones/joints: Unremarkable. No acute fracture. Soft tissues: There is no evidence of soft tissue abnormality. IMPRESSION: Areas of atelectasis and pneumonic infiltrate on the right. CT ABD/PELVIS FINDINGS: Liver: The Normal appearing liver. Gallbladder and bile ducts: Normal size common bile duct. Pancreas: Normal size pancreas. Spleen: Normal spleen. The urinary bladder is empty normal spleen. Adrenal glands: Normal adrenal glands. Kidneys and ureters: There are multiple calcifications throughout both kidneys. No IV contrast was given during this examination. There is a stone in the right renal pelvis but no evidence of hydronephrosis. There is an exophytic structure from the right kidney measuring 2 cm with peripheral calcification and probably a calcified cyst. Stomach and bowel: Normal appearing small bowel. Appendix: No evidence of appendicitis. Intraperitoneal space: There is no evidence of a mesenteric mass. There is no evidence of pneumoperitoneum. Vasculature: The aorta is normal in size. Lymph nodes: Unremarkable. No enlarged lymph nodes. Urinary bladder: Unremarkable as visualized. Reproductive: Normal size prostate. Bones/joints: Unremarkable. No acute fracture. Soft tissues: Unremarkable. IMPRESSION: Small kidneys with calcifications throughout ASSESSMENT: This is a 50 YO M with history of ESRD on HD with chronic respiratory failure with tracheostomy who was found to be hypotensive with yumiko kocytosis and lactic acidosis concerning for septic shock of unknown etiology. PLAN: Septic shock: unknown etiology, possibly lung-related (Hospital associated PNA). -WBC elevated at 27.4 with 15 banded neutrophils, lactic acid originally 9.1 but trended down to 6.6, CRP 24.3 -CT Chest with areas of atelectasis/pneumonic infiltrate on R lung -Patient hypotensive, placed on Levophed drip titrated to MAP >65 -Patient has history of MRSA and Pseudomonas in sputum, will likely grow this again as he is colonized -Blood cultures x 2 ordered, sputum cultures sent -Empiric antibiotics IV Vancomycin and Meropenem (dose increased to 1,000mg Q24H) with plan to de-escalate with results of cultures -No obvious pathology on CT abd/pel Macerated skin rash probable candidiasis -Ordered one dose of 200mg Diflucan -Please apply Nystatin powder to bottom, keep skin as dry as possible Vital Signs/I&O Vital Signs Date Time Temp Pulse Resp B/P (MAP) Pulse Ox O2 Delivery O2 Flow Rate FiO2 03/06/21 11:45 89 26 76/37 (50) 96 Trach Collar 5.0 28 03/06/21 11:34 97.6 I&O- Last 24 Hours up to 6 AM 03/06/21 06:00 Intake Total 860 ml Output Total 0 ml Balance 860 ml Laboratory Data Labs 24H Laboratory Tests 2 03/06/21 09:28: Immature Granulocyte % (Auto) , Neutrophils (%) (Auto) , Nucleated Red Blood Cells % (auto) 0.2H, Neutrophils 80H, Band Neutrophils 15H, Lymphocytes (Manual) 5L, Polychromasia 1+, Poikilocytosis 1+, Anisocytosis 2+, Acanthocytes 1+, Toxic Vacuolation 3+, Platelet Estimate NORMAL, Erythrocyte Sedimentation Rate 29H, Anion Gap 19H, Glomerular Filtration Rate 9.0L, Lactic Acid Level 9.1*H, Calcium Level 9.3, Magnesium Level 1.7L, Total Bilirubin 4.8H, Aspartate Amino Transf (AST/SGOT) 108H, Alanine Aminotransferase (ALT/SGPT) 73, Alkaline Phosphatase 243H, Ammonia 23, Total Creatine Kinase 51, Creatine Kinase MB < 1.0, Creatine Kinase MB Relative Index 1.96, Troponin I 0.03, C-Reactive Protein, Quantitative 24.30H, Total Protein 5.6L, Albumin 2.4L, Albumin/Globulin Ratio 0.8, Procalcitonin 252 03/06/21 11:45: Bedside Glucose (Misc Panel) 49L 03/06/21 12:25: Bedside Glucose (Misc Panel) 42L 03/06/21 12:41: Bedside Glucose (Misc Panel) 105 03/06/21 14:11: Bedside Glucose (Misc Panel) 63L, Lactic Acid Level 6.6*H 03/06/21 14:33: 03/06/21 15:08: Bedside Glucose (Misc Panel) 103 03/06/21 17:28: Bedside Glucose (Misc Panel) 112H CBC/BMP Laboratory Tests 03/06/21 09:28 Microbiology Microbiology 03/06/21 Gram Stain, Received Pending 03/06/21 Sputum Culture, Received Pending 03/06/21 Blood Culture, Received Pending 03/06/21 Blood Culture, Received Pending Allergies Coded Allergies: moxifloxacin (Verified Allergy, Intermediate, RASH, 12/25/19) codeine (Verified Allergy, Unknown, 12/25/19) valsartan (Verified Allergy, Unknown, 12/25/19) Home Medications Scheduled Amiodarone Hcl (Pacerone) 200 Mg Tab, 200 MG PO DAILY, (Reported) 1100 Hydralazine HCl (Hydralazine HCl) 100 Mg Tablet, 100 MG PO DAILY, (Reported) Levetiracetam (Keppra) 500 Mg Tablet, 500 MG PO DAILY, (Reported) Pantoprazole Sodium (Protonix) 40 Mg Tablet.dr, 40 MG PO DAILY, #30 (Reported) Pramipexole Di-HCl (Mirapex) 0.125 Mg Tablet, 0.125 MG PO QHS, (Reported) Sennosides (Senna Lax) 8.6 Mg Tablet, 2 TAB PO QHS, (Reported) Sertraline Hcl (Zoloft) 100 Mg Tablet, 100 MG PO DAILY, (Reported) 1100 Sevelamer Carbonate (Renvela) 800 Mg Tablet, 800 MG PO WM, (Reported) Scheduled PRN Polyethylene Glycol 3350 (Miralax) 17 Gm Powd.pack, 17 GM PO DAILY PRN for CONSTIPATION, (Reported) GME ATTESTATION GME ATTESTATION My faculty preceptor for this patient encounter was physically present during the encounter and was fully available. All aspects of the patient interview, examination, medical decision making process, and medical care plan development were reviewed and approved by the faculty preceptor. The faculty preceptor is aware and concurs with the plan as stated in the body of this note and will attest to such by his/her cosignature. ANKIT MULLEN MD March 06, 2021 18:59 Lyndon Quesada MD March 06, 2021 22:23
[2021-03-06] MEDS: APIXABAN 2.5 MG TAB (ELIQUIS) PO SCH (20:46)
[2021-03-06] MEDS ORDERED: FLUCONAZOLE 200 MG in IV 1 EA IV ONE (21:00)
[2021-03-06] MEDS: PRAMIPEXOLE (MIRAPEX) 0.125 MG TAB PO SCH (21:09)
[2021-03-07] VITALS (86 sets, daily range): BP systolic 70–138; BP diastolic 37–66; O2SAT 94
[2021-03-07] MEDS: D5W/0.45% SODIUM CHLORIDE 1,000 ML IV SCH ×2 (05:28→18:25)
[2021-03-07] MEDS: HumaLOG INSULIN (NovoLOG) PER UNIT SC SCH ×3 (05:28→18:00)
[2021-03-07] MEDS: guaiFENesin SYRUP 200 MG/10 ML UDC PO SCH (05:29)
[2021-03-07 05:36] LABS: HEMATOCRIT 37.1 % (42.0-52.0); HEMOGLOBIN 10.7 g/dl (13.5-17.5); MEAN CORPUSCULAR HEMOGLOBIN 27.1 pg (27.0-33.0); MEAN CORPUSCULAR HGB CONC 28.8 g/dl (32.0-36.5); MEAN CORPUSCULAR VOLUME 93.9 fl (80.0-96.0); PLATELET COUNT, AUTOMATED 136 10^3/uL (150-450); RED BLOOD COUNT 3.95 10^6/uL (4.30-6.10)
[2021-03-07 05:54] LABS: LYMPHOCYTES 4 % (16-44); MONOCYTES 2 % (0-5); NEUTROPHILS 94 % (28-66)
[2021-03-07 05:55] LABS: ANISOCYTOSIS 1+; PLATELET ESTIMATE DECREASED (NORMAL)
[2021-03-07 05:57] LABS: HYPOCHROMASIA 2+
[2021-03-07 05:58] LABS: POIKILOCYTOSIS 1+; TOXIC VACUOLATION 1+
[2021-03-07 06:19] LABS: ALBUMIN 2.3 GM/DL (3.2-5.2); BILIRUBIN,TOTAL 4.2 MG/DL (0.2-1.0); CREATININE FOR GFR 6.73 MG/DL (0.70-1.30); GLOMERULAR FILTRATION RATE 9.4 (>60); MAGNESIUM LEVEL 1.9 MG/DL (1.8-2.4); POTASSIUM SERUM 3.9 MEQ/L (3.5-5.1); TOTAL PROTEIN 5.5 GM/DL (6.4-8.2)
[2021-03-07] MEDS: BUDESONIDE 0.5 MG/2 ML INHALATION SUSPENSION INH SCH ×2 (07:26→19:50)
[2021-03-07] MEDS: FORMOTEROL FUMARATE 20 MCG/2 ML INHALATION SOLUTION (PERFOROMIST) INH SCH ×2 (07:26→19:50)
[2021-03-07] MEDS: ALBUTEROL SULFATE 2.5 MG/0.5 ML INH NEB SOLN NEB SCH ×4 (07:26→19:50)
[2021-03-07] MEDS: DIMETHICONE 2% OINTMENT(VANICREAM) 70GM TUBE TOP SCH ×2 (09:16→22:42)
[2021-03-07] MEDS: NYSTATIN 100,000 UNITS/GM TOPICAL PWD 15 GM TOP SCH ×2 (09:17→21:00)
[2021-03-07] MEDS: NOREPINEPHRINE BITARTRATE 8 MG in D5W 492 ML IV SCH (09:18)
--- NOTE | 2021-03-07 09:21 | IPN ---
PROGRESS NOTE DATE: 03/07/2021 SUBJECTIVE: The patient was emergently transferred to Intensive Care Unit due to septic shock status post 3.778 liters of IV fluids without significant improvement. Currently on Levophed drip at 12 mcg. The patient is anuric, dialysis patient, has had no urine output. He had two incontinent voids yesterday. White count was elevated at 27,000 with 15 bands, given empiric Meropenem, Vancomycin and Diflucan times one. The patient complains of stomach upset this morning. No chest pain, pressure, tightness, cough, fevers or chills overnight. Blood culture grew gram negative rods on preliminary read. Sputum culture is still pending. He did have a prior history of pseudomonas in the sputum. CT chest shows right lower lobe early infiltrate. CT abdomen is unremarkable. Patient tolerating his clears. The patient went into atrial fibrillation with RVR yesterday. Ventricular rate of 107. Given one dose of Amiodarone due to hypotension. Currently rate controlled at 92. The patient was started on low dose renally dosed Eliquis yesterday with no signs of bleeding this morning. OBJECTIVE: Temperature 97, pulse 92 to 105. Generally the patient is unable to speak due to trach. He is able to nod and whisper. Trach in place. Thick neck. Right IJ noted, placed yesterday on 03/06/2021. No distress. No pallor or icterus. No jaundice. No use of respiratory accessory muscles. Lungs are diminished. Faint crackles at the right base. Heart: S1, S2, currently sinus rhythm. Previously irregularly irregular and tachycardic. Abdomen is obese, soft, nontender, nondistended. Extremities: Trace edema bilateral lower extremities. Some excoriated areas on the dorsum of the right foot. LABORATORY DATA: White count 25, hemoglobin 10, hematocrit 37, platelet count 136. Sodium 133, potassium 3.9, chloride 97, bicarb 25, BUN 71, creatinine 6.73, glucose of 107. Last lactic acid was 3.1 with previous lactic acid yesterday of 9.1. AST 340, ALT 196, alkaline phosphatase of 184. IMAGING STUDIES: CT chest: Right lower lobe infiltrates. CT abdomen and pelvis: Small kidneys with calcification throughout. ASSESSMENT AND PLAN: This is a 50-year-old with chronic hypercarbic respiratory failure status post trach, had been admitted here from May 2020, was changed to ALC status and maintained on maintenance dialysis Wednesday, , Wednesday with morbid obesity. BMI of 52.5, seizure disorder, chronic hypotension on midodrine, anemia of chronic disease, incontinence, associated dermatitis, reflux, depression, anxiety, paroxysmal atrial fibrillation, and renal disease, tracheal stenosis status post dilatation, chronic hypoxemic, hypercapnic respiratory failure with functional paraparesis and paresis of the right upper extremity due to severe spinal stenosis, bed-bound at baseline, severe spinal stenosis, transferred from [facility], had been ____ to ICU due to septic shock with gram negative rods in the blood culture. IMPRESSION: 1. Septic shock status post 3.7 liters of IV fluids without improvement, currently on Levophed drip at 12 mcg. The patient is empirically treated with Vancomycin and Meropenem which was started on 03/06/2021 and was given one dose of Diflucan. Infectious Disease specialist is being consulted. The patient has significant bandemia of 15, lactic acidosis of 9. CT chest, abdomen and pelvis only showed right lower lobe infiltrate but blood culture today shows gram negative rods. Patient is continued on IV Vancomycin, Meropenem, day number two. Diflucan has not been continued. Infectious Disease specialist has been consulted. 2. Diarrhea, resolved. The patient was on bowel regimen which has been discontinued. 3. End-stage renal disease on maintenance dialysis. Refused dialysis on 03/06/2021. He usually has dialysis Wednesday, , Wednesday. Patient currently does not have electrolyte abnormalities with normal potassium. No acidemia with normal bicarbonate. 4. History of tracheal stenosis status post dilatation 11/08/2020 status post tracheostomy changed 02/2010, [address] Ortega. 5. Chronic hypoxic and hypercarbic respiratory failure due to morbid obesity and obesity hypoventilation syndrome with restrictive lung disease. Trach was changed 03/03/2021. Currently on Albuterol. He has had issues with malclearance of secretions, currently with a trach. 6. Functional paresis with chronic right upper extremity paresis due to severe spinal stenosis, bed-bound at baseline, as needed Oxycodone. 7. Right lower lobe infiltrate/hospital-acquired pneumonia with chronic trach due to chronic hypercarbic respiratory failure with malclearance of secretions. Check a swallow evaluation today to rule out aspiration particularly since the patient has the infiltrate on the right side. 8. Reflux on chronic PPI. We will give GI cocktail this morning due to complaints of pain. 9. Depression, anxiety on chronic sertraline and clonazepam. 10. Paroxysmal atrial fibrillation on Amiodarone. Patient received a dose of IV Amiodarone yesterday. Currently sinus rhythm on low dose Eliquis. 11. History of seizure disorder on chronic Keppra. 12. Chronic hypotension. The patient had been on midodrine on dialysis days, currently on IV Levophed drip.
[2021-03-07] MEDS: NOREPINEPHRINE BITARTRATE 16 MG in D5W 484 ML IV SCH (10:16)
[2021-03-07] MEDS: (RENVELA) SEVELAMER **CARBONate** 800 MG TAB PO SCH ×4 (10:18→18:12)
[2021-03-07] MEDS: levETIRAcetam 250MG TABLET (KEPPRA) PO SCH (10:19)
[2021-03-07] MEDS: VITAMIN D 1,000 INTERNATIONAL UNITS TABLET PO SCH (10:19)
[2021-03-07] MEDS: SERTRALINE 100 MG TAB PO SCH (10:20)
[2021-03-07] MEDS: MIDODRINE 5 MG TAB PO SCH ×3 (10:20→16:38)
[2021-03-07] MEDS: APIXABAN 2.5 MG TAB (ELIQUIS) PO SCH ×2 (10:20→21:00)
[2021-03-07] MEDS: CALCITRIOL 0.25 MCG CAP (S0169) PO SCH (10:21)
[2021-03-07] MEDS: PANTOPRAZOLE 40MG TAB (PROTONIX) PO SCH (10:21)
[2021-03-07] MEDS: AMIODARONE 200 MG TAB (PACERONE) PO SCH (10:21)
--- NOTE | 2021-03-07 12:26 | REP ---
INDICATION: perforation?. COMPARISON: CT 03/06/2021. TECHNIQUE: Four AP portable views of the abdomen. FINDINGS: There is a nonobstructive bowel gas pattern. CT oral contrast is seen throughout the nondistended colon. The stomach is moderately distended with air. There are mild degenerative changes of the hips. IMPRESSION: Stomach moderately distended with air. Otherwise no bowel dilatation. <Electronically signed by Last Lin > 03/07/21 1229
[2021-03-07] MEDS ORDERED: ISOVUE-370 76% 100ML VIAL As Ordered ONE (13:57)
--- NOTE | 2021-03-07 14:58 | IPN ---
PROGRESS NOTE DATE: 03/07/2021 Mr. Richard was seen in the intensive care unit. He is alert and oriented. He seems to have abdominal pain. Whenever his abdomen is touched, he is very uncomfortable. He has had no bowel movements. He has had no fever or chills. Maximum temperature was 98.9 yesterday, pulse 105, blood pressure 97/53, oxygen saturation 95% on Ventimask of 28%, which is unchanged. HEART: Normal S1, S2. Distant. No murmurs appreciated. LUNGS: Few expiratory rhonchi in the bases. There are no increased secretions from his trach site. No wheezes. No crackles. ABDOMEN: Morbidly obese, soft, tender all over. Diffuse. Bowel sounds very diminished. EXTREMITIES: No clubbing, cyanosis, or edema. Right dorsal aspect of the foot has a small ulceration, measuring less than a half centimeter with minimal purulence. No surrounding cellulitis. Buttock has diffuse erythema bilaterally with hyperpigmented changes from pressure. LABORATORY DATA: White count 25, hemoglobin 10.7, hematocrit 37.1, platelets 136, 94% neutrophils, 4% lymphocytes, 2% monocytes. Sodium 133, potassium 3.9, chloride 97, bicarbonate 25, BUN 71, creatinine 6.73, glucose 107. Lactic acid 3.1, calcium 9, magnesium 1.9. Total bilirubin 4.2, AST 340, alkaline phosphatase 184. Blood cultures, two sets, are gram-negative rods, and sputum Gram stain has many white cells, many gram-negative rods, many gram-positive rods. IMPRESSION: 1. Gram-negative sepsis with septic shock from gastrointestinal (GI) origin, most likely from liver. The patient could have acute cholangitis with elevated bilirubin, AST, and ALT. He is currently on meropenem 1 gram IV every 24 hours, which is appropriate coverage for GI source. Vancomycin could be discontinued. 2. Abnormal liver function tests, even though CT was done without contrast. Yesterday did not show any evidence of any pathology. Flat abdomen x-ray showed no evidence of perforation. I would suggest obtaining CT abdomen and pelvis with contrast and consulting general surgery or gastroenterology. 3. Intertriginous candidiasis in the buttock area, on nystatin powder and received one done of fluconazole yesterday. PLAN: Discontinue vancomycin. Continue meropenem. Consult GI or surgery. FREYAD
--- NOTE | 2021-03-07 15:04 | REP ---
INDICATION: septic shock abd distention r/o free air/abscess COMPARISON: 03/06/2021. TECHNIQUE: CT Scan of the abdomen and pelvis was performed with intravenous administration of 100 cc of Isovue 370, and oral contrast. FINDINGS: Lung bases: Patchy parenchymal opacities in each lung base are stable. Liver: Liver is enlarged measuring approximately 22 cm in length Gallbladder: Collapsed. Common bile duct appears somewhat dilated, approximately 12 mm in diameter. Spleen: Spleen is enlarged measuring approximately 17.8 cm in length. Adrenals: Normal. Pancreas: Normal. Kidneys: The kidneys are again noted to be atrophic and contain multiple tiny cystic structures diffusely bilaterally as well as multiple parenchymal calcifications. There is no hydroureteronephrosis. Subcentimeter calculus is again seen in the right renal pelvis. Small and large bowel: Unremarkable. Free fluid: There is trace free fluid in the pelvis. Abdominal aorta: No aneurysm or dissection. Adenopathy: None. Appendix: Not inflamed. Osseous structures: Diffuse sclerotic density in the visualized osseous structures suggests renal osteodystrophy. Pelvis: No mass. Urinary bladder is collapsed. IMPRESSION: Bilateral lobe parenchymal opacities unchanged. Hepatosplenomegaly. Gallbladder is collapsed. Common bile duct is somewhat dilated measuring up to 12 mm in diameter. Trace free fluid in the pelvis. No free air or obstruction. Bilateral renal atrophy and chronic cystic change. <Electronically signed by Last Lin > 03/07/21 1500
[2021-03-07] MEDS ORDERED: D5W/0.45% SODIUM CHLORIDE 1,000 ML IV SCH (15:40)
[2021-03-07] MEDS ORDERED: MEROPENEM INJ 500 MG in IV 1 EA IV SCH (16:00)
--- NOTE | 2021-03-07 17:14 | REP ---
INDICATION: DILATED CBD R/O CHOLEDOCHOLITHIASIS. COMPARISON: 06/13/2020. CT abdomen and pelvis today. TECHNIQUE: Portable Real-time sonographic evaluation of right upper quadrant performed. Study is extremely limited due to patient body habitus and portable situation. FINDINGS: The gallbladder could not be visualized. It is collapsed on today's CT scan. There is mild intrahepatic biliary dilatation. Only portions of the common bile duct are visualized, the visualized portion is 6 mm in diameter. Liver demonstrates diffuse increased echotexture suggesting diffuse fibrofatty infiltration. The pancreas is not well seen due to overlying bowel gas. The right kidney could not be visualized. No free fluid is seen. IMPRESSION: Extremely limited exam due to body habitus and portable situation. The gallbladder could not be visualized, it is collapsed on today's CT scan. There is mild intrahepatic biliary dilatation. The visualized portion of the common bile duct measures 6 mm. The visualized portion demonstrates no definite stone. There is diffuse fibrofatty infiltration of the liver. <Electronically signed by Last Lin > 03/07/21 [id number]
[2021-03-07] MEDS: MEROPENEM INJ 1 GM in IV 1 EA IV SCH (18:12)
--- NOTE | 2021-03-07 20:36 | ECGEPIP ---
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 Left axis deviation Increased heart rate compared with 05/09/2020. Electronically Signed on 03-07-2021 20:36:25 EDT by Jah Hdz
[2021-03-07] MEDS: PRAMIPEXOLE (MIRAPEX) 0.125 MG TAB PO SCH (21:00)
[2021-03-07] MEDS ORDERED: MORPHINE 2 MG/ML 1ML VIAL (J2270) IV PRN (22:30)
--- NOTE | 2021-03-07 22:53 | CR ---
CONSULTATION DATE: 03/07/2021 REASON FOR CONSULTATION: Gram negative bacteremia. BRIEF HISTORY OF PRESENT ILLNESS: The patient is a 50-year-old septic diabetic male with end-stage renal disease who has had multiple admissions for numerous issues going over the years. He presents now in the Intensive Care Unit was some sepsis, hypotension, was on Levophed, elevated white count of 25,000, and septic shock of undetermined etiology. The patient had some abnormal liver function tests and I was asked to see the patient for additional recommendations. The patient has a contracted gallbladder on CAT scan and on ultrasound no dilated or inflamed gallbladder was appreciated. No significant ductal dilatation on the ultrasound. The patient's laboratories revealed elevated bilirubin of 4.2 and AST, ALT and alkaline phosphatase were all elevated early this morning. He has not had any follow up labs since that time. And overall his blood pressure has stabilized on Levophed in decreasing amounts. PAST MEDICAL HISTORY: The patient's past medical history is significant for: 1. History of chronic renal failure, on dialysis with an AV fistula. 2. History of obstructive sleep apnea. 3. Supra morbid obesity. 4. Hyperlipidemia. 5. Depression. 6. Arthritis knees, hips, back, spine. 7. History of pneumonias. 8. History of prolonged hospitalization. PAST SURGICAL HISTORY: The patient's past surgical history is significant for: 1. History of tracheostomy. 2. History of AV fistula revisions. PHYSICAL EXAMINATION: GENERAL APPEARANCE: The patient is somewhat lethargic, however he does respond to questions and does complain of mild abdominal discomfort. HEENT: Unremarkable other than his trach in place. He has had some fistulas in both arms. LUNGS: Diminished bilaterally, some rhonchorous anteriorly. HEART: Distant. ABDOMEN: Obese, mildly tender throughout without significant guarding, rebound or peritoneal signs. EXTREMITIES: His lower extremities are atrophied with poor vascular perfusion, and most likely probably chronically ischemic. IMPRESSION AND PLAN: The patient has gram negative bacteremia, undetermined etiology. At this point there was some concern of ascending cholangitis, although I am not convinced of this given that he does not have significant dilatation at this time of his bile ducts. It is more likely that he has elevated liver function tests secondary to sepsis alone. Once again, the etiology of the sepsis is undetermined. I am not seeing a lot of concerning abnormalities on his CAT scan of his abdomen and pelvis, although he does have a relatively distended stomach at this time. If he develops any nausea or vomiting, I would recommend that he has an NG tube placed for decompression. However he does not appear to have any significant ileus at this point and no inflammatory changes. 1. The patient has sepsis of undetermined etiology - I would recommend supportive care at this time. 2. Elevated liver function tests of undetermined etiology most likely secondary to his sepsis, although still potentially could be secondary to an ascending cholangitis, but I am not convinced of this, given his presentation. And we should see some improving liver function tests with follow up studies. If he has increasing liver function tests, a GI consultation is recommended. 3. Abdominal discomfort - The patient has some abdominal distention, probably gastric distention secondary to his respiratory stress and may have had some aerophagia. At this point I am not seeing an obvious ileus. If he develops any nausea or vomiting, NG tube decompression is warranted. 4. The patient is an extremely high risk for operative intervention and although he is not deemed a non-operative candidate, I would recommend extraordinary efforts to avoid operative intervention given his probable poor postoperative outcomes.
[2021-03-08] VITALS (94 sets, daily range): BP systolic 80–146; BP diastolic 43–66; O2SAT 99
[2021-03-08] MEDS: D5W/0.45% SODIUM CHLORIDE 1,000 ML IV SCH (02:17)
[2021-03-08 05:25] LABS: BASO % 0.2 % (0.0-1.0); EOS # 0.2 10^3/uL (0.0-0.5); EOS % 1.9 % (0.0-3.0); HEMATOCRIT 36.7 % (42.0-52.0); HEMOGLOBIN 10.7 g/dl (13.5-17.5); LYMPH # 0.9 10^3/uL (1.5-5.0); LYMPH % 7.2 % (24.0-44.0); MEAN CORPUSCULAR HEMOGLOBIN 27.1 pg (27.0-33.0); MEAN CORPUSCULAR HGB CONC 29.2 g/dl (32.0-36.5); MEAN CORPUSCULAR VOLUME 92.9 fl (80.0-96.0); MONO # 0.6 10^3/uL (0.0-0.8); MONO % 4.3 % (2.0-8.0); NEUTROPHILS # 10.9 10^3/uL (1.5-8.5); NEUTROPHILS % 85.3 % (36.0-66.0); RED BLOOD COUNT 3.95 10^6/uL (4.30-6.10); WHITE BLOOD COUNT 12.8 10^3/uL (4.0-10.0)
[2021-03-08 05:50] LABS: BILIRUBIN,TOTAL 3.2 MG/DL (0.2-1.0); CALCIUM LEVEL 8.9 MG/DL (8.5-10.1); CREATININE FOR GFR 6.94 MG/DL (0.70-1.30); GLOMERULAR FILTRATION RATE 9.1 (>60); MAGNESIUM LEVEL 1.9 MG/DL (1.8-2.4); POTASSIUM SERUM 4.1 MEQ/L (3.5-5.1)
[2021-03-08] MEDS ORDERED: LIDOCAINE 1% SDV 5ML VIAL SC PRN (06:00)
[2021-03-08] MEDS: HumaLOG INSULIN (NovoLOG) PER UNIT SC SCH ×4 (06:00→18:00)
[2021-03-08 06:17] LABS: INR 1.36; PROTHROMBIN TIME 17.1 SECONDS (12.5-14.3)
[2021-03-08 06:18] LABS: PARTIAL THROMBOPLASTIN TIME 38.4 SECONDS (24.2-38.5)
[2021-03-08] MEDS: FORMOTEROL FUMARATE 20 MCG/2 ML INHALATION SOLUTION (PERFOROMIST) INH SCH ×2 (07:27→19:55)
[2021-03-08] MEDS: ALBUTEROL SULFATE 2.5 MG/0.5 ML INH NEB SOLN NEB SCH ×4 (07:27→19:55)
[2021-03-08] MEDS: BUDESONIDE 0.5 MG/2 ML INHALATION SUSPENSION INH SCH ×2 (07:27→19:55)
[2021-03-08] MEDS: DIMETHICONE 2% OINTMENT(VANICREAM) 70GM TUBE TOP SCH ×2 (07:50→21:41)
[2021-03-08] MEDS: NYSTATIN 100,000 UNITS/GM TOPICAL PWD 15 GM TOP SCH ×2 (07:50→21:41)
[2021-03-08] MEDS: (RENVELA) SEVELAMER **CARBONate** 800 MG TAB PO SCH ×3 (07:51→17:43)
[2021-03-08] MEDS: levETIRAcetam 250MG TABLET (KEPPRA) PO SCH (07:52)
[2021-03-08] MEDS: AMIODARONE 200 MG TAB (PACERONE) PO SCH (07:52)
[2021-03-08] MEDS: VITAMIN D 1,000 INTERNATIONAL UNITS TABLET PO SCH (07:52)
[2021-03-08] MEDS: APIXABAN 2.5 MG TAB (ELIQUIS) PO SCH ×2 (07:52→21:40)
[2021-03-08] MEDS: PANTOPRAZOLE 40MG TAB (PROTONIX) PO SCH (07:53)
[2021-03-08] MEDS: MIDODRINE 5 MG TAB PO SCH ×3 (07:53→16:26)
[2021-03-08] MEDS: SERTRALINE 100 MG TAB PO SCH (07:53)
[2021-03-08] MEDS: DARBEPOETIN 200MCG/0.4ML *DIALYSIS* SYRINGE (J0882 PER 1MCG) IV SCH (08:24)
[2021-03-08] MEDS: NOREPINEPHRINE BITARTRATE 16 MG in D5W 484 ML IV SCH ×2 (08:37→16:27)
--- NOTE | 2021-03-08 08:59 | IPN ---
PROGRESS NOTE DATE: 03/08/2021 SUBJECTIVE: Patient is off Levophed drip, currently maintaining his mean arterial pressure at 66, undergoing CRRT at the bedside. He still complains of slight right upper quadrant tenderness without nausea or vomiting. No fevers or chills overnight. He also complains of chronic back pain rated at 4/10. OBJECTIVE: VITAL SIGNS: Temperature is 96.7, pulse is 101, respiratory rate is 14, blood pressure is 104/47, 94%, 5 liters trach collar, 20% FIO2. GENERAL: Patient whispers due to trach, unable to speak. HEENT: Dry mucous membranes. LUNGS: Diminished, crackles bilaterally and coarse wheezing. ABDOMEN: Soft, tender in right upper quadrant. No rebound or guarding. No hepatosplenomegaly. EXTREMITIES: Chronic edema. Atrophy of bilateral lower extremities. LABORATORY DATA: White count 12, hemoglobin 10, hematocrit 36, platelet count 136,000 yesterday. Sodium 132, potassium 4.1, chloride 97, bicarbonate 24, BUN 82, creatinine 6.94, glucose of 90. Bilirubin 3.2, decreased from 4.2 yesterday. AST 114, ALT 134, alkaline phosphatase 173. Ultrasound of gallbladder: CBD 6 mm. No definite stone. Fatty liver. Microbiology: Pseudomonas and Corynebacterium in his sputum, blood has E. coli. ASSESSMENT AND PLAN: This is a 50-year-old male with morbid obesity, chronic hypercarbic respiratory failure status post trach, was admitted June 13, changed to ALC status, maintained on maintenance dialysis due to endstage renal disease on Wednesday, and Wednesday with morbid obesity, BMI of 52, seizure disorder, chronic hypotension on Midodrine, anemia of chronic disease, incontinence associated dermatitis, reflux, depression, anxiety, paroxysmal, renal disease, tracheal stenosis status post dilatation, chronic hypoxic and hypercapnic respiratory failure with functional paraparesis and paresis of the right upper extremity due to severe spinal stenosis, bed-bound at baseline due to severe spinal stenosis, transferred from ALC status to ICU due to septic shock with gram negative rods in the blood. He was found to have E. coli in the blood most likely from the urine as the source. Patient had a CT of the abdomen and pelvis which showed dilated common bile duct 9 mm but ultrasound shows 6 mm with decreasing bilirubin. Patient was initially treated for possible pseudomonas with MRSA in the sputum but chest x-ray and CT of chest shows no pneumonia. Differential diagnosis was ascending cholangitis yesterday due to elevated bilirubin level as well as gram negative bacteremia on the blood culture. However, E. coli has been found in the blood culture, the most likely source would be . He is currently off Levophed drip. 1. Septic shock status post 3.7 liters of Normal Saline IV bolus, Levophed drip, off the drip for the past 24 hours, initially empirically treated with Vancomycin, Meropenem and one dose of Diflucan. Initial differential diagnosis was ascending cholangitis due to elevated bilirubin level, abdominal pain right upper quadrant and CT of abdomen and pelvis showing 9 mm CBD dilatation. Ultrasound, however shows 6 mm common bile duct with decreasing bilirubin and improving LFTs with blood culture positive for E. coli most likely urinary tract infection as the potential source. 2. E. coli bacteremia most likely from a source. Continue on Meropenem, improving with white count of 12 today from 25 yesterday, Vancomycin and Diflucan have been discontinued, ID is following. 3. Colonization with pseudomonas and MRSA, CT of chest and chest x-ray were both negative for pneumonia. 4. Diarrhea, resolved. Bowel regimen was discontinued. 5. Endstage renal disease on maintenance dialysis, currently getting CRRT at the bedside in ICU today due to recent need for Levophed drip and soft blood pressure. He is resumed back on his Midodrine. 6. History of tracheal stenosis status post dilatation on 11/08 and tracheostomy change 03/03/[address] Ortega. 7. Chronic hypoxic hypercarbic respiratory failure due to morbid obesity, obesity hypoventilation syndrome with restrictive lung disease. Trach changed 03/03/2021. Patient has had a prior history of __ clearance of secretions, currently doing well with a trach, FIO2 28%. 8. Functional paresis with chronic right upper extremity paresis due to severe spinal stenosis, bed-bound at baseline. 9. Reflux, on chronic PPI. 10.Depression/anxiety, on Sertraline and Clonazepam. 11.Paroxysmal atrial fibrillation, resumed on Amiodarone. 12.History of seizure disorder, on chronic Keppra. 13.Chronic hypotension, status post IV Levophed drip, currently on Midodrine. 14.Diet: Patient may be advanced on diet today. 15.Probable urinary tract infection. Despite being endstage renal disease, check a urine C and S via straight cath. MTDD
[2021-03-08] MEDS: oxyCODONE 5MG TAB PO PRN ×2 (12:42→21:52)
[2021-03-08] MEDS: clonazePAM 0.5 MG TAB PO PRN ×2 (12:44→21:52)
[2021-03-08] MEDS: MEROPENEM INJ 1 GM in IV 1 EA IV SCH (17:43)
[2021-03-08] MEDS: PRAMIPEXOLE (MIRAPEX) 0.125 MG TAB PO SCH (21:40)
[2021-03-09] VITALS (28 sets, daily range): BP systolic 82–114; BP diastolic 44–69; O2SAT 93–100
[2021-03-09] MEDS: oxyCODONE 5MG TAB PO PRN (00:23)
[2021-03-09] MEDS: ALBUTEROL SULFATE 2.5 MG/0.5 ML INH NEB SOLN NEB PRN (04:35)
[2021-03-09 05:04] LABS: BASO % 0.3 % (0.0-1.0); EOS # 0.4 10^3/uL (0.0-0.5); EOS % 3.8 % (0.0-3.0); HEMATOCRIT 36.5 % (42.0-52.0); HEMOGLOBIN 10.7 g/dl (13.5-17.5); LYMPH # 1.2 10^3/uL (1.5-5.0); MEAN CORPUSCULAR HEMOGLOBIN 26.6 pg (27.0-33.0); MEAN CORPUSCULAR HGB CONC 29.3 g/dl (32.0-36.5); MEAN CORPUSCULAR VOLUME 90.8 fl (80.0-96.0); MONO # 0.6 10^3/uL (0.0-0.8); MONO % 5.4 % (2.0-8.0); NEUTROPHILS # 8.5 10^3/uL (1.5-8.5); NEUTROPHILS % 78.5 % (36.0-66.0); RED BLOOD COUNT 4.02 10^6/uL (4.30-6.10); WHITE BLOOD COUNT 10.8 10^3/uL (4.0-10.0)
[2021-03-09 05:22] LABS: PLATELET COUNT, AUTOMATED 98 10^3/uL (150-450)
[2021-03-09 05:23] LABS: ALBUMIN 2.1 GM/DL (3.2-5.2); BILIRUBIN,TOTAL 2.8 MG/DL (0.2-1.0); CALCIUM LEVEL 8.5 MG/DL (8.5-10.1); CREATININE FOR GFR 6.08 MG/DL (0.70-1.30); GLOMERULAR FILTRATION RATE 10.6 (>60); MAGNESIUM LEVEL 2.1 MG/DL (1.8-2.4); POTASSIUM SERUM 4.3 MEQ/L (3.5-5.1); TOTAL PROTEIN 5.5 GM/DL (6.4-8.2)
[2021-03-09] MEDS: HumaLOG INSULIN (NovoLOG) PER UNIT SC SCH ×4 (06:00→18:00)
[2021-03-09] MEDS: BUDESONIDE 0.5 MG/2 ML INHALATION SUSPENSION INH SCH ×2 (07:39→20:52)
[2021-03-09] MEDS: ALBUTEROL SULFATE 2.5 MG/0.5 ML INH NEB SOLN NEB SCH ×4 (07:39→20:52)
[2021-03-09] MEDS: FORMOTEROL FUMARATE 20 MCG/2 ML INHALATION SOLUTION (PERFOROMIST) INH SCH ×2 (07:39→20:52)
[2021-03-09] MEDS: (RENVELA) SEVELAMER **CARBONate** 800 MG TAB PO SCH ×3 (08:45→18:47)
[2021-03-09] MEDS: AMIODARONE 200 MG TAB (PACERONE) PO SCH (08:45)
[2021-03-09] MEDS: VITAMIN D 1,000 INTERNATIONAL UNITS TABLET PO SCH (08:45)
[2021-03-09] MEDS: levETIRAcetam 250MG TABLET (KEPPRA) PO SCH (08:45)
[2021-03-09] MEDS: SERTRALINE 100 MG TAB PO SCH (08:46)
[2021-03-09] MEDS: PANTOPRAZOLE 40MG TAB (PROTONIX) PO SCH (08:46)
[2021-03-09] MEDS: APIXABAN 2.5 MG TAB (ELIQUIS) PO SCH ×2 (08:46→20:46)
[2021-03-09] MEDS: MIDODRINE 5 MG TAB PO SCH ×3 (08:46→16:04)
[2021-03-09] MEDS: DIMETHICONE 2% OINTMENT(VANICREAM) 70GM TUBE TOP SCH ×2 (08:46→20:47)
[2021-03-09] MEDS: NYSTATIN 100,000 UNITS/GM TOPICAL PWD 15 GM TOP SCH ×2 (08:47→20:47)
--- NOTE | 2021-03-09 09:02 | IPN ---
NEPHROLOGY PROGRESS NOTE DATE: 03/08/2021 SUBJECTIVE: The patient was seen and examined at the bedside today morning in the ICU. He was getting hemodialysis done. Because of the hemodialysis, his blood pressures dropped. Also his pressors had been weaned off in the morning. We had to restart the patient on Levophed at 4 mcg. Blood flow rate also had to be decreased. We were not able to remove much fluid during dialysis because of low blood pressures. Otherwise his leukocytosis is getting better and looks like his sepsis is improving. OBJECTIVE: VITAL SIGNS: Temperature is 97.1 degrees Fahrenheit, blood pressure 98/47, pulse is 82, respiratory rate of 18, saturating 91% on a trach collar at 5 liters. INTAKE AND OUTPUT: Urine output is not recorded. Weight in the bed scale is not available. PHYSICAL EXAMINATION: GENERAL APPEARANCE: The patient is awake, alert, oriented x2, morbidly obese, laying in bed. HEAD AND NECK: Pupils are equally round and reactive to light. Mucous membranes are moist. Neck is supple. He has a trach collar. CARDIOVASCULAR: S1, S2, regular rate. EXTREMITIES: 2+ edema of the bilateral lower extremities. RESPIRATORY: He is dependent on the trach. Decreased breath sounds at the bases. Otherwise no active rales or rhonchi. ABDOMEN: Soft, obese, positive bowel sounds. MUSCULOSKELETAL: Decreased range of movement of the lower extremities. He has waffle boots. 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 LAB REVIEW: CBC showed a WBC of 12.8 which is significantly better from his WBC of 25 yesterday. Hemoglobin is 10.7, platelet count 136. BMP showed sodium 132, potassium 4.1, chloride 97, bicarbonate 24, BUN 82, creatinine is 6.9, calcium 8.9, magnesium is 1.9, total bilirubin 3.2, AST 114, ALT 134, alkaline phosphatase is 173 and they are all improving. Microbiology sputum gram stain and culture is growing pseudomonas aeruginosa and chronic bacterium species. Blood cultures two out of two are growing E-coli. IMAGING: CAT scan abdomen and pelvis was done which showed trace free fluid in the pelvis, no free air or obstruction. Gallbladder is collapsed. CURRENT INPATIENT MEDICATIONS: The patient's medications were all reviewed by myself. He continues to be on Meropenem; dose was increased to one gram daily. So his Levophed was stopped in the morning but it had to restarted for hemodialysis. He continues to be on Midodrine. ASSESSMENT AND PLAN: 1. End-stage renal disease - The patient is in septic shock. He is requiring pressors at this time. We are doing only 3 hours of dialysis for his clearance. It is very difficult to remove fluid because of low blood pressures. 2. Septic shock - The patient has E-coli bacteremia and he has Corynebacterium and pseudomonas in the sputum cultures. He is currently on IV Meropenem as per I.D. recommendations. Vancomycin has been stopped. Leukocytosis is getting better. Levophed will be weaned off after dialysis. 3. Elevated liver enzymes most likely it is secondary to shock liver. LFTs are getting better with improvement in the blood pressures. 4. Chronic hypotension The patient is hypotensive because of shock, however at baseline he gets Midodrine. Continue current dose of Midodrine at this time. 5. Anemia and end-stage renal disease - The patient gets Aranesp with dialysis. Hemoglobin level is within the acceptable range.
[2021-03-09] MEDS ORDERED: MORPHINE 4 MG/ML 1ML VIAL/SYRINGE (J2270) IV PRN (12:45)
--- NOTE | 2021-03-09 13:08 | IPN ---
PROGRESS NOTE DATE: 03/09/2021 SUBJECTIVE: Patient continues to make progress every day. He looks better and his liver function tests seem to be coming down. He is tolerating a regular diet. Complains of some minimal abdominal discomfort, but overall, is much more alert, awake and not complaining of any significant problems. PHYSICAL EXAMINATION: ABDOMEN: Softer than it was yesterday, less distended, although it still is quite difficult to evaluate this, given his significant and severe morbid obesity. IMPRESSION/PLAN: Patient has resolving liver function tests as well as resolving sepsis/gram-negative sepsis. Would recommend continued care from medicine. From a surgical standpoint, I would recommend followup with us on an as needed basis.
--- NOTE | 2021-03-09 13:13 | IPN ---
PROGRESS NOTE DATE: 03/08/2021 SUBJECTIVE: Patient actually looks better today. He has been complaining of some mild abdominal tenderness, but it is much less than it was previously. His blood pressure has been more under control and he had extensive workup for his gram-negative sepsis and currently, the etiology is undetermined. The concern was ascending cholangitis; however, the bilirubin levels came down nicely and I really was not impressed on his ultrasound followup studies yesterday that this was the source of his gram-negative sepsis. In any case, his white count came down nicely from 25 down to 12.8 today. His bilirubin also came down to 3.2 from 4.2 and all of his AST, ALT and alkaline phosphatase have come down nicely as well. PHYSICAL EXAMINATION: LUNGS: Diminished posteriorly. HEART: Regular. ABDOMEN: Morbidly obese, mildly tender to palpation throughout, but really no guarding, no rebound, no peritoneal sign. IMPRESSION/PLAN: Etiology of gram-negative sepsis is undetermined at this time. I do feel that it is reasonable to continue with his treatment. However, he was started on a renal diet and seems to be nibbling at that diet at this time and we will see how he does with this over the next 24 hours. If he is tolerating this then, from a general surgery standpoint, no further intervention is warranted. I anticipate the liver function tests are associated with his sepsis and I would anticipate that these elevated liver function tests should return to normal over the ensuing few days.
[2021-03-09] MEDS: MEROPENEM INJ 1 GM in IV 1 EA IV SCH (18:47)
[2021-03-09] MEDS: PRAMIPEXOLE (MIRAPEX) 0.125 MG TAB PO SCH (20:46)
--- NOTE | 2021-03-09 21:58 | IPN ---
PROGRESS NOTE DATE: 03/09/2021 SUBJECTIVE: Afebrile, no chills. Off Levophed for the past 36 hours. Had dialysis yesterday. Complains of right upper quadrant discomfort but tolerating his diet. Unable to obtain a urine sample yesterday due to minimal urine on bladder scan. Vital signs: Temperature 96.4, pulse 76, sinus, respiratory rate 12, blood pressure 92/45, 94% trach collar, 5 liters FiO2 28%. Generally: Awake, alert, whispering, trach collar in place, no significant yellowish drainage through the neck. Lungs: Diminished crackles bilaterally, some coarse wheezing. Heart: S1, S2, sinus rhythm. Abdomen: Soft, slightly tender right upper quadrant, no rebound, guarding, obese abdomen. Extremities: Chronic edema. Input, output, daily weight reviewed. LABORATORY DATA: CBC, metabolic panel notable for improved white count to 10 from previous elevated white count 27,000 on 03/06/2021, platelet count is currently 98. Liver function tests are decreasing, bilirubin is down to 2.8. Microbiology: Reviewed. Pseudomonas and Corynebacterium in sputum culture. Blood culture with Escherichia (E) coli. ASSESSMENT AND PLAN: 50-year-old male with morbid obesity, 52.5 body mass index (BMI), obstructive sleep apnea (NISA), chronic end-stage renal failure on maintenance dialysis status post arteriovenous (AV) fistula, hyperlipidemia, depression, history of Pseudomonas, methicillin-resistant Staphylococcus aureus (MRSA), pneumonia, prolonged hospitalization, admitted May 2020, with an alternate level of care (ALC) status and transferred to intensive care unit (ICU) due to septic shock of unknown etiology. Current issues are as follows: 1. Septic shock, resolved. Status post Levophed drip, IV fluids. Currently on meropenem. Previously given vancomycin, meropenem, and Diflucan. Infectious disease (ID) is consulted. Currently improving with no fevers, white count decreasing to normal at 10. Chest CT, abdomen and pelvis showed common bile duct (CBD) dilation, but ultrasound was unremarkable. Liver function tests improving with decreasing bilirubin. Initial working diagnosis was ascending cholangitis but no stone noted on ultrasound and CT abdomen and pelvis. We attempted to obtain a urine sample but could not be done since the patient was anuric and sample could not be obtained. 2. End-stage renal disease on maintenance dialysis. Managed by nephrology. Patient was on Levophed drip previously and had to have continuous renal replacement therapy (CRRT) at the bedside. 3. Functional paresis with chronic right upper extremity. 4. History of seizure disorder, on chronic Keppra. 5. History of tracheal stenosis status post dilation by Dr. Ortega with trach change on 03/03/2021. Currently stable. 6. History of methicillin-resistant Staphylococcus aureus (MRSA) and Pseudomonas colonization on the sputum culture. 7. Depression/anxiety. Resume back on sertraline and clonazepam. 8. Paroxysmal atrial fibrillation, on amiodarone. Rate controlled in sinus rhythm. Currently back on anticoagulation. 9. Chronic hypotension. Usually on midodrine. Had required Levophed due to septic shock which has resolved. [facility]
--- NOTE | 2021-03-09 23:13 | IPN ---
NEPHROLOGY PROGRESS NOTE DATE: 03/09/2021 SUBJECTIVE: The patient was seen and examined at the bedside today morning in the ICU. He was dialyzed yesterday. He required Levophed with dialysis. 300 mL of fluid was removed. Levophed was weaned off late at night. The patient ate about 25% of his breakfast today morning. He is awake and able to communicate with me. OBJECTIVE: VITAL SIGNS: Temperature is 97.2 degrees Fahrenheit, blood pressure is 91/44, pulse is 83, respiratory rate of 16, saturating 97% on a trach collar at 5 liters. INTAKE AND OUTPUT: There is no urine output recorded. Ultrafiltration with hemodialysis was 300 mL yesterday. Weight in the bed scale is not available. PHYSICAL EXAMINATION: GENERAL APPEARANCE: The patient is awake, alert, oriented x3, morbidly obese, laying in bed. HEAD AND NECK: Pupils are equally round and reactive to light. Mucous membranes are moist. Neck is supple. He has a trach collar. CARDIOVASCULAR: S1, S2, regular rate. EXTREMITIES: 1+ edema of the bilateral lower extremities. RESPIRATORY: Chest is clear to auscultation bilaterally. He is trach dependent. ABDOMEN: Soft, positive bowel sounds. Abdominal wall edema was noted, more on the right side as compared with left. MUSCULOSKELETAL: Decreased range of movement of the bilateral lower extremities. He is chronically bedridden. 1+ edema of the extremities as mentioned above. 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 LAB REVIEW: CBC showed a WBC count of 10.8, hemoglobin 10.7, platelet count 98. BMP showed sodium 132, potassium 4.3, chloride 97, bicarbonate 24, BUN 68, creatinine is 6.08. Total bilirubin is 2.8, AST 46, ALT 97, alkaline phosphatase is 186. Albumin 2.1. Microbiology repeat blood cultures sent yesterday are negative. CURRENT INPATIENT MEDICATIONS: The patient's medications were all reviewed by myself. His Levophed has been weaned off now. He continues to be on IV Meropenem. No other significant change in medications today as compared with yesterday. ASSESSMENT AND PLAN: 1. End-stage renal disease - The patient was dialyzed for about 3 hours yesterday was Levophed. If needed, he will be dialyzed again for further fluid removal and clearance. 2. E-coli bacteremia and recent septic shock - This patient is off of Levophed now. He continues to be on IV Meropenem. Repeat cultures are negative so far. Leukocytosis is getting better. 3. Elevated liver enzymes it was secondary to shock liver. LFTs are improving now. 4. Chronic hypotension - continue current dose of Midodrine. 5. Anemia and end-stage renal disease continue current dose of Aranesp. Hemoglobin levels are optimal.
[2021-03-10] VITALS: BP 89/54
[2021-03-10] MEDS: DEXTROSE 50% 50 ML SYRINGE IV PRN ×2 (02:51→05:56)
[2021-03-10 04:00] VITALS: BP 107/55
[2021-03-10] MEDS: HumaLOG INSULIN (NovoLOG) PER UNIT SC SCH ×4 (05:54→18:00)
[2021-03-10 05:58] LABS: BASO % 0.3 % (0.0-1.0); EOS # 0.5 10^3/uL (0.0-0.5); EOS % 5.9 % (0.0-3.0); HEMATOCRIT 34.1 % (42.0-52.0); HEMOGLOBIN 10.2 g/dl (13.5-17.5); LYMPH # 1.3 10^3/uL (1.5-5.0); MEAN CORPUSCULAR HEMOGLOBIN 26.8 pg (27.0-33.0); MEAN CORPUSCULAR HGB CONC 29.9 g/dl (32.0-36.5); MEAN CORPUSCULAR VOLUME 89.5 fl (80.0-96.0); MONO # 0.6 10^3/uL (0.0-0.8); MONO % 7.8 % (2.0-8.0); NEUTROPHILS # 5.4 10^3/uL (1.5-8.5); NEUTROPHILS % 68.9 % (36.0-66.0); PLATELET COUNT, AUTOMATED 103 10^3/uL (150-450); RED BLOOD COUNT 3.81 10^6/uL (4.30-6.10); WHITE BLOOD COUNT 7.9 10^3/uL (4.0-10.0)
[2021-03-10 06:30] LABS: ALBUMIN 2.3 GM/DL (3.2-5.2); BILIRUBIN,TOTAL 2.8 MG/DL (0.2-1.0); CALCIUM LEVEL 8.5 MG/DL (8.5-10.1); CREATININE FOR GFR 6.78 MG/DL (0.70-1.30); GLOMERULAR FILTRATION RATE 9.3 (>60); POTASSIUM SERUM 4.8 MEQ/L (3.5-5.1); TOTAL PROTEIN 5.5 GM/DL (6.4-8.2)
[2021-03-10] MEDS: BUDESONIDE 0.5 MG/2 ML INHALATION SUSPENSION INH SCH ×2 (07:43→20:26)
[2021-03-10] MEDS: FORMOTEROL FUMARATE 20 MCG/2 ML INHALATION SOLUTION (PERFOROMIST) INH SCH ×2 (07:43→20:27)
[2021-03-10] MEDS: ALBUTEROL SULFATE 2.5 MG/0.5 ML INH NEB SOLN NEB SCH ×4 (07:44→20:27)
[2021-03-10 07:52] VITALS: BP 116/60
[2021-03-10] MEDS: CALCITRIOL 0.25 MCG CAP (S0169) PO SCH (08:04)
[2021-03-10] MEDS: MIDODRINE 5 MG TAB PO SCH ×4 (08:04→18:27)
[2021-03-10] MEDS: (RENVELA) SEVELAMER **CARBONate** 800 MG TAB PO SCH ×4 (08:04→18:28)
[2021-03-10] MEDS: levETIRAcetam 250MG TABLET (KEPPRA) PO SCH (08:05)
[2021-03-10] MEDS: APIXABAN 2.5 MG TAB (ELIQUIS) PO SCH ×2 (08:05→21:51)
[2021-03-10] MEDS: PANTOPRAZOLE 40MG TAB (PROTONIX) PO SCH (08:05)
[2021-03-10] MEDS: SERTRALINE 100 MG TAB PO SCH (08:05)
[2021-03-10] MEDS: VITAMIN D 1,000 INTERNATIONAL UNITS TABLET PO SCH (08:05)
[2021-03-10] MEDS: AMIODARONE 200 MG TAB (PACERONE) PO SCH (08:05)
[2021-03-10] MEDS: DIMETHICONE 2% OINTMENT(VANICREAM) 70GM TUBE TOP SCH ×2 (08:06→22:12)
[2021-03-10] MEDS: NYSTATIN 100,000 UNITS/GM TOPICAL PWD 15 GM TOP SCH ×2 (08:06→22:12)
--- NOTE | 2021-03-10 11:56 | IPN ---
PROGRESS NOTE DATE: 03/10/2021 SUBJECTIVE: Patient is tolerating his diet. No nausea, vomiting, diarrhea or abdominal pain. He has no chest pain, pressure or tightness. No fever or chills overnight. We attempted to obtain a urine culture via catheterization but bladder scan showed no urine. Per Dr. Calderon, source of infection could still be urinary tract infection due to Escherichia (E) coli in the blood culture. Overnight, the patient has not required Levophed drip. His mean arterial pressure remains at 66-78 at the bedside. No other issues per nursing overnight. PHYSICAL EXAMINATION (OBJECTIVE): Vital Signs: Temperature 97.1, pulse 89, respiratory rate 20, blood pressure 116/60, 95% trach collar 5 liters, 28% FiO2. General: Awake, alert, oriented to person, place, and time. No distress. Lungs: Diminished but clear to auscultation. No wheezing, rales, or rhonchi. Heart: S1, S2, irregularly irregular. Abdomen: Obese, soft, nontender, nondistended. Positive bowel sounds. Extremities: Has chronic atrophy and chronic edema. LABORATORY DATA: White count 7.9, hemoglobin 10, hematocrit 34, platelet count of 103; previous platelet count of 98. Sodium 132, potassium 4.8, chloride 98, bicarbonate 25, BUN 76, creatinine 6.78, glucose of 59. Total bilirubin of 2.8, AST 26, LDH 65. ASSESSMENT AND PLAN: This is a 50-year-old male with super morbid obesity, BMI of 52.5 admitted in May 2020 with an alternate level of care (ALC) status transferred to ICU due to septic shock. He had a past medical history significant for obesity, hypoventilation syndrome, obstructive sleep apnea (NISA) malclearance of secretions, chronic hypoxic respiratory failure requiring tracheostomy placement and changed 03/03/[address] Ortega. Obstructive sleep apnea, end-stage renal disease on dialysis via AV fistula, hyperlipidemia, history of Pseudomonas and Methicillin-resistant staph aureus (MRSA) in the sputum with prolonged hospitalization. Current issues are: 1. Septic shock, resolved. Patient's blood culture was positive for Escherichia (E) coli. He was initially given intravenous vancomycin and meropenem and one dose of Diflucan. When he was transferred to ICU; required Levophed drip which has been off and IV fluids. Initial CT chest, abdomen and pelvis showed possible common bile duct (CBD) dilation but ultrasound of the liver was unremarkable with no gallstones or signs of cholangitis. He continues to have increased liver function tests which is improving slightly. His vancomycin and Diflucan have all been discontinued. He is currently just on IV meropenem and has remained afebrile with decreased white count to normal now. He is maintaining his blood pressure without any Levophed drip or IV fluids currently, and has been transferred out of the ICU to PCU status but medically stable to transfer to medical/surgical. We will continue to check bladder scan. If urine is present, may take catheterized urine sample. General surgery has also been consulted initially for triple lumen line placement with Dr. Rodgers and Dr. Ybarra but Dr. Izaguirre had been involved with the abdominal pain that he had in the right upper quadrant; source of infection is still unclear. 2. Abnormal liver function tests, improving. No signs of gallstones both on the ultrasound and CT of the abdomen and pelvis. Currently tolerating a diet with no pain. White count is normal. He has remained afebrile but liver function tests are still abnormal. Will check full workup. GI is not available for a consultation for abnormal bilirubin. Unable to obtain magnetic resonance cholangiopancreatography (MRCP) due to patient's obese weight. 3. End-stage renal disease on maintenance dialysis managed by nephrology. 4. Functional paresis, chronic, right upper extremity; awaiting usp placement. 5. History of tracheal stenosis, status post dilation and change of trach on 03/03/2021. History of seizure disorder, on chronic Keppra. 6. 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 7. Paroxysmal atrial fibrillation, rate controlled on amiodarone and anticoagulation. 9. Chronic hypotension on chronic midodrine. DISPOSITION: The patient may be transferred to medical/surgical floor. Discontinue telemetry. MTDD
[2021-03-10 12:00] VITALS: BP 120/62
[2021-03-10] MEDS ORDERED: DEXTROSE 50% 50 ML SYRINGE IV STA ×2 (12:16→18:16)
[2021-03-10] MEDS: SODIUM CHLORIDE 0.9% INJ 10 ML SYR IV PRN ×3 (12:54→20:28)
[2021-03-10] MEDS: SODIUM CHLORIDE 0.9% INJ 10 ML SYR IV SCH ×2 (14:00→22:20)
--- NOTE | 2021-03-10 16:34 | IPN ---
PROGRESS NOTE DATE: 03/10/2021 SUBJECTIVE: Patient was seen and examined at the bedside today morning. He is in the progressive care unit (PCU) right now, he has been downgraded out of intensive care unit (ICU). He denies any active complaints at this time. Blood pressures are better now. Leukocytosis is getting better. OBJECTIVE: Vital signs: Temperature is 97.1 degrees Fahrenheit, blood pressure 116/60, pulse is 89, respiratory rate of 20, saturating 95% on trach collar at 5 liters. Intake and output: There is no urine output recorded. Weight in the bed scale is not available. PHYSICAL EXAMINATION: General: Patient is awake, alert, oriented times three, morbidly obese, laying in the bed, no apparent distress. Head and neck exam: Extraocular muscles intact. Pupils equally round and reactive to light. Neck is supple. He has a trach collar. Cardiovascular: S1, S2, regular rate. 1+ edema of the bilateral lower extremities. Respiratory: Chest is clear to auscultation bilaterally, bilateral equal air entry. Abdomen: Soft, obese, positive bowel sounds, abdominal wall edema was noted. Musculoskeletal: Decreased range of movement of bilateral lower extremities. Central nervous system (CARPET CUTTER): No focal deficit in bilateral upper extremities, he moves extremities and follows commands. LABORATORY REVIEW: CBC showed WBC 7.9, hemoglobin 10.2, platelets are 103. BMP showed sodium 132, potassium 4.8, chloride 96, bicarbonate 25, BUN 76, creatinine is 6.7. AST 26, ALT 65, alkaline phosphatase 182. CURRENT INPATIENT MEDICATIONS: Patient's medications were all reviewed by myself. Patient continues to be on IV meropenem. He also continues to be on midodrine. No other significant change in the medications today. ASSESSMENT AND PLAN: 1. End-stage renal disease. Patient had a short dialysis while he was in intensive care unit (ICU) and only 300 mL of fluid was removed. I offered to do another session of dialysis, however patient wants to have dialysis on his regular schedule as per Wednesday, , Wednesday. He will be dialyzed tomorrow morning. 2. Escherichia (E) bacteremia and recent septic shock. Patient is on IV meropenem. Leukocytosis is improving. Hemodynamically he is much more stable. 3. Shock liver. Liver function tests (LFTs) are getting better. 4. Hypotension. Blood pressure is controlled with use of midodrine. 5. Anemia in end-stage renal disease. Hemoglobin is stable with current dose of Aranesp.
[2021-03-10] MEDS: MEROPENEM INJ 1 GM in IV 1 EA IV SCH (18:28)
[2021-03-10 20:00] VITALS: BP 103/83
[2021-03-10 20:48] LABS: HEMATOCRIT 34.5 % (42.0-52.0); HEMOGLOBIN 10.1 g/dl (13.5-17.5); MEAN CORPUSCULAR HEMOGLOBIN 26.4 pg (27.0-33.0); MEAN CORPUSCULAR HGB CONC 29.3 g/dl (32.0-36.5); MEAN CORPUSCULAR VOLUME 90.3 fl (80.0-96.0); PLATELET COUNT, AUTOMATED 120 10^3/uL (150-450); RED BLOOD COUNT 3.82 10^6/uL (4.30-6.10); WHITE BLOOD COUNT 8.2 10^3/uL (4.0-10.0)
[2021-03-10] MEDS: PRAMIPEXOLE (MIRAPEX) 0.125 MG TAB PO SCH (21:51)
[2021-03-10 22:25] VITALS: BP 96/44
[2021-03-11] VITALS: BP 99/47
[2021-03-11] MEDS: DEXTROSE 50% 50 ML SYRINGE IV PRN (01:57)
[2021-03-11] MEDS: SODIUM CHLORIDE 0.9% INJ 10 ML SYR IV PRN (01:57)
[2021-03-11] MEDS: HumaLOG INSULIN (NovoLOG) PER UNIT SC SCH ×3 (06:00→12:00)
[2021-03-11] MEDS ORDERED: LIDOCAINE 1% SDV 5ML VIAL SC PRN (06:00)
[2021-03-11] MEDS: SODIUM CHLORIDE 0.9% INJ 10 ML SYR IV SCH ×3 (06:29→20:54)
[2021-03-11] MEDS: CALCITRIOL 0.25 MCG CAP (S0169) PO SCH (06:30)
[2021-03-11] MEDS: VITAMIN D 1,000 INTERNATIONAL UNITS TABLET PO SCH (06:31)
[2021-03-11] MEDS: AMIODARONE 200 MG TAB (PACERONE) PO SCH (06:31)
[2021-03-11] MEDS: APIXABAN 2.5 MG TAB (ELIQUIS) PO SCH ×2 (06:31→20:51)
[2021-03-11] MEDS: SERTRALINE 100 MG TAB PO SCH (06:31)
[2021-03-11 06:34] VITALS: BP 99/49
[2021-03-11 06:52] LABS: BASO % 0.5 % (0.0-1.0); EOS # 0.5 10^3/uL (0.0-0.5); EOS % 5.3 % (0.0-3.0); HEMATOCRIT 35.4 % (42.0-52.0); HEMOGLOBIN 10.4 g/dl (13.5-17.5); LYMPH # 1.4 10^3/uL (1.5-5.0); LYMPH % 16.2 % (24.0-44.0); MEAN CORPUSCULAR HEMOGLOBIN 26.5 pg (27.0-33.0); MEAN CORPUSCULAR HGB CONC 29.4 g/dl (32.0-36.5); MEAN CORPUSCULAR VOLUME 90.3 fl (80.0-96.0); MONO # 0.6 10^3/uL (0.0-0.8); MONO % 6.4 % (2.0-8.0); NEUTROPHILS # 6.1 10^3/uL (1.5-8.5); NEUTROPHILS % 69.7 % (36.0-66.0); PLATELET COUNT, AUTOMATED 154 10^3/uL (150-450); RED BLOOD COUNT 3.92 10^6/uL (4.30-6.10); WHITE BLOOD COUNT 8.7 10^3/uL (4.0-10.0)
[2021-03-11 07:21] LABS: ALBUMIN 2.4 GM/DL (3.2-5.2); BILIRUBIN,TOTAL 2.5 MG/DL (0.2-1.0); CALCIUM LEVEL 8.1 MG/DL (8.5-10.1); CREATININE FOR GFR 7.36 MG/DL (0.70-1.30); GLOMERULAR FILTRATION RATE 8.5 (>60); MAGNESIUM LEVEL 2.1 MG/DL (1.8-2.4); POTASSIUM SERUM 5.4 MEQ/L (3.5-5.1); TOTAL PROTEIN 5.8 GM/DL (6.4-8.2)
[2021-03-11] MEDS: FORMOTEROL FUMARATE 20 MCG/2 ML INHALATION SOLUTION (PERFOROMIST) INH SCH ×2 (07:54→20:13)
[2021-03-11] MEDS: BUDESONIDE 0.5 MG/2 ML INHALATION SUSPENSION INH SCH ×2 (07:54→20:14)
[2021-03-11] MEDS: ALBUTEROL SULFATE 2.5 MG/0.5 ML INH NEB SOLN NEB SCH ×4 (07:55→20:00)
[2021-03-11] MEDS: (RENVELA) SEVELAMER **CARBONate** 800 MG TAB PO SCH ×3 (08:00→18:00)
[2021-03-11] MEDS: MIDODRINE 5 MG TAB PO SCH ×3 (08:14→15:33)
[2021-03-11] MEDS: PANTOPRAZOLE 40MG TAB (PROTONIX) PO SCH (08:15)
--- NOTE | 2021-03-11 10:09 | IPN ---
PROGRESS NOTE DATE: 03/11/2021 SUBJECTIVE: The patient was seen and examined at the bedside today morning in the dialysis center. Today is the patient's regular day of dialysis. He seems depressed and drowsy. Otherwise, hemodynamically he is stable and is not eating much every since he was transferred out of the ICU. OBJECTIVE: VITAL SIGNS: Temperature 98.6 degrees Fahrenheit, blood pressure 99/49, pulse 97, respiratory rate 18, saturating 97% on the trach collar at 5 liters. INTAKE AND OUTPUT: Urine output is unrecorded. Weight on the bed scale is not available. GENERAL: The patient is drowsy, but arousable. Unable to answer questions. Laying in bed morbidly obese. HEAD AND NECK: Pupils are equally round and reactive to light. Mucous membranes are moist. Neck is supple. He has a trach collar. CARDIOVASCULAR: S1, S2. Regular rate. 1+ edema of the thighs. RESPIRATORY: Decreased breath sounds at the bases. He is dependent on the trach collar. ABDOMEN: Soft. Abdominal wall edema in the flank was noted. MUSCULOSKELETAL: He has a waffle boot on bilateral lower extremities and decreased movement of the lower extremities. DIRECTOR ORACLE: No focal deficits in bilateral upper extremities. He is moving his extremities and follows commands. LABORATORY DATA: CBC showed WBC 8.7, hemoglobin 10.4, platelets 154,000. BMP showed sodium 131, potassium 5.4, chloride 96, bicarb 23, BUN 82, creatinine 7.6, calcium 8.1, magnesium 2.1, total bilirubin 2.5, AST 24, ALT 45, alkaline phosphatase 190, albumin 2.4. CURRENT INPATIENT MEDICATIONS: The patient's medications were all reviewed by myself. He continues to be on IV meropenem. He continues to be on midodrine 10 mg p.o. three times a day. No other significant change in the medications today. ASSESSMENT AND PLAN: 1. End-stage renal disease. The patient's regular dialysis days are Wednesday, , and Wednesday. I will try to do ultrafiltration of at least 2 liters as tolerated by his blood pressure. 2. Hypotension. Blood pressure is optimal close to his baseline. He stays in a systolic of 90s. Continue midodrine. 3. Escherichia coli (E. coli) bacteremia. The patient continues to be on IV meropenem. Lactic acid is normal. Leukocytosis is getting better. 4. Elevated liver enzymes. This was secondary to shock liver. Albumin is improving. 5. Anemia and end-stage renal disease. Hemoglobin is stable with current dose of Aranesp. 6. Chronic kidney disease, mineral bone disease, and hypophosphatemia. The patient is not eating much and he is refusing Renvela with meals most of the time. 7. Hyperkalemia. The patient is being dialyzed with 2K bath and potassium level should get better after that.
[2021-03-11 14:00] VITALS: BP 133/69
[2021-03-11] MEDS: levETIRAcetam 250MG TABLET (KEPPRA) PO SCH (15:32)
[2021-03-11] MEDS: DIMETHICONE 2% OINTMENT(VANICREAM) 70GM TUBE TOP SCH ×2 (15:33→20:52)
[2021-03-11] MEDS: NYSTATIN 100,000 UNITS/GM TOPICAL PWD 15 GM TOP SCH ×2 (15:34→20:52)
[2021-03-11] MEDS ORDERED: D5W/0.9% SODIUM CHLORIDE 1,000 ML IV SCH (18:10)
[2021-03-11 18:12] LABS: ABG BASE EXCESS -3.8 (-2.0-2.0); ABG HCO3 22.5 MEQ/L (22.0-26.0); ABG PARTIAL PRESSURE CO2 46.2 mmHg (35.0-45.0); ABG PARTIAL PRESSURE O2 74.5 mmHg (75.0-100.0); ABG STANDARD HCO3 21.3 MEQ/L (22.0-26.0); ABG TOTAL CO2 23.9 MEQ/L (22.0-29.0); ABG pH (ARTERIAL) 7.306 UNITS (7.350-7.450)
[2021-03-11] MEDS: MEROPENEM INJ 1 GM in IV 1 EA IV SCH (18:41)
--- NOTE | 2021-03-11 18:42 | REP ---
INDICATION: SOB. COMPARISON: Comparison chest x-ray March 06, 2021. TECHNIQUE: Portable upright AP chest radiograph. FINDINGS: Endotracheal tube remains in good position. Left internal jugular central venous line terminates in the expected location of the brachiocephalic vein in its junction with the SVC. The heart is quite enlarged. Patient is rotated somewhat to the right. Pulmonary vasculature is cephalized and congested similar to the 06 mar 2021 study. No acute infiltrate is seen. Pleural angles are sharp.. IMPRESSION: Cardiomegaly. Endotracheal tube and left IJ line remain in place. Vascular cephalization and congestion.. <Electronically signed by Cornell Vo > 03/11/21 [id number]
--- NOTE | 2021-03-11 19:00 | IPNPDOC ---
Date Seen The patient was seen on 03/11/21. Progress Note SUBJECTIVE: Very lethargic earlier today; however, later in the day felt more SOB and wanted to speak with physician. I came to room and patient would not open eyes to talk to me. Once I left, he was speaking with XRay staff without issue and actually looked more awake and alert than earlier. BP stable, O2 sat at baseline on normal amount of O2. BS 60's throughout day, started D10 0.45 NS IVFs, discussed with nephrology. Patient has made comments in the past that he would starve himself in the past, hx of suicidal thoughts- careful to watch for worsening s/s of depression. If patient continues to not eat, will discuss with patient his code status, as it does not appear to be worsening infection or respiratory illness that is causing this decline in appetite. OBJECTIVE: PHYSICAL EXAMINATION: Vital Signs: Please see below General: NAD resting in bed, chooses not to answer me but talks to others HEENT: AT/NC, no lymphadenopathy NECK: No JVD, trach in place Lungs: Diminished but clear to auscultation. No wheezing, rales, or rhonchi. Heart: S1, S2, irregularly irregular. Abdomen: Obese, soft, nontender, nondistended. Positive bowel sounds. Extremities: Has chronic atrophy and chronic edema. NEURO: NO focal deficits Psych: depressed mood LABORATORY DATA: Please see below MICRO: BCx x 2 sets 03/06/21: E. coli Repeat BCx x 2 sets 03/08/21: NG Sputum Cx: pseudomonas, cornyebacterium ASSESSMENT: 50-year-old male with morbid obesity, hypoventilation syndrome, ob structive sleep apnea(NISA) with malclearance of secretions, chronic hypoxic respiratory failure requiring tracheostomy placement (recently changed 03/03/[address] Ortega ), ESRD on dialysis via AV fistula, hyperlipidemia, history of Pseudomonas and Methicillin-resistant staph aureus (MRSA) in the sputum with prolonged hospitalization currently being treated as inpatient for E. coli bacteremia, resolved sepsis. PLAN: Hypoglycemia likely 2/2 to decreased PO intake -BS 60's, was eating previously but decreased intake today -Has made comments in the past that he was going to stop eating, perhaps he is increasingly depressed? Attempted to talk to him tonight but he did not speak at all to me, kept his eyes closed -Started on D10 0.45 NS at 50 cc/hr, monitor with FS Q6H -Encourage P intake E. coli bacteremia 2/2 to unknown source (poss GI?) - resolved sepsis/septic shock -WBC wnl, afebrile, repeat BCX neg (see above under Micro) -Does not make good urine so UA not sent -BP stable, on levophed gtt in ICU -Tx with IV vancomycin, meropenem and one dose of Diflucan. When he was t ransferred to ICU; required -CT chest, abdomen and pelvis showed possible common bile duct (CBD) dilation but ultrasound of the liver was unremarkable with no gallstones or signs of cholangitis. -AST/ALT wnl -Remains on meropenem which ID will likely deescalate further today -Monitor for s/s of returning infection Abnormal liver function tests- resolved -AST/ALT, bili is still high -No signs of gallstones both on the ultrasound and CT of the abdomen and pelvis -Previously tolerating diet until latst 24 hours. -Unable to obtain magnetic resonance cholangiopancreatography (MRCP) due to pat mykel's obese weight -Daily CMP -If Bili remains high, consider GI consult when available. Depression/anxiety with hx of suicidal thoughts -Evaluated in 09/2020 by psychiatry, please refer to notes -With not eating but seeming to otherwise improve clinically, monitor for changes in depression or red flags -Attempted to discuss with patient but would not speak with me -Consider repeat psych consult End-stage renal disease on maintenance dialysis -HD -Nephrology following Functional paresis, chronic, right upper extremity -Placement has been an issue -Bedbound History of tracheal stenosis, status post dilation and change of trach on03/03/2021 -Resp following History of seizure disorder -C/w keppra History of methicillin-resistant Staphylococcus aureus (MRSA) and 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 DVT px -Eliquis BID DISPOSITION: VS, I&O, 24H, Fishbone Vital Signs/I&O Vital Signs Date Time Temp Pulse Resp B/P (MAP) Pulse Ox O2 Delivery O2 Flow Rate FiO2 03/11/21 14:00 97.0 85 19 133/69 (90) 97 Trach Collar 5.0 28 I&O- Last 24 Hours up to 6 AM 03/11/21 06:00 Intake Total 960 ml Balance 960 ml Laboratory Data 24H LABS Laboratory Tests 2 03/10/21 19:56: Bedside Glucose (Misc Panel) 76 03/10/21 20:22: Nucleated Red Blood Cells % (auto) 0.6H, Lactic Acid Level 0.3L 03/11/21 00:05: Bedside Glucose (Misc Panel) 65L 03/11/21 01:51: Bedside Glucose (Misc Panel) 64L 03/11/21 06:24: Immature Granulocyte % (Auto) 1.9, Neutrophils (%) (Auto) 69.7H, Lymphocytes (%) (Auto) 16.2L, Monocytes (%) (Auto) 6.4, Eosinophils (%) (Auto) 5.3H, Basophils (%) (Auto) 0.5, Neutrophils # (Auto) 6.1, Lymphocytes # (Auto) 1.4L, Monocytes # (Auto) 0.6, Eosinophils # (Auto) 0.5, Basophils # (Auto) 0.0, Nucleated Red Blood Cells % (auto) 0.3H, Anion Gap 12, Glomerular Filtration Rate 8.5L, Calcium Level 8.1L, Magnesium Level 2.1, Total Bilirubin 2.5H, Aspartate Amino Transf (AST/SGOT) 24, Alanine Aminotransferase (ALT/SGPT) 45, Alkaline Phosphatase 190H, Total Protein 5.8L, Albumin 2.4L, Albumin/Globulin Ratio 0.7 03/11/21 06:31: Bedside Glucose (Misc Panel) 73 03/11/21 13:49: Bedside Glucose (Misc Panel) 68L 03/11/21 17:52: Bedside Glucose (Misc Panel) 66L 03/11/21 17:56: Blood Gas Bicarbonate Standard 21.3L, Arterial Blood pH 7.306L, Arterial Blood Partial Pressure CO2 46.2H, Arterial Blood Partial Pressure O2 74.5L, Arterial Blood Total CO2 23.9, Arterial Blood HCO3 22.5, Arterial Blood Base Excess - 3.8L, Arterial Blood Oxygen Saturation 94.0L CBC/BMP Laboratory Tests 03/10/21 20:22 03/11/21 06:24 Microbiology Microbiology 03/08/21 Blood Culture - Preliminary, Resulted No Growth after 72 hours. All specime... 03/08/21 Blood Culture - Preliminary, Resulted No Growth after 72 hours. All specime... 03/06/21 Gram Stain - Final, Complete 03/06/21 Sputum Culture - Final, Complete Pseudomonas Aeruginosa Corynebacterium Species 03/06/21 Blood Culture - Final, Complete Escherichia Coli 03/06/21 Blood Culture - Final, Complete Escherichia Coli Claudette Padron MD March 11, 2021 19:00
[2021-03-11] MEDS: D10W/0.45% SODIUM CHLORIDE 1,000 ML IV SCH (20:03)
[2021-03-11 20:07] VITALS: BP 130/56
[2021-03-11] MEDS: PRAMIPEXOLE (MIRAPEX) 0.125 MG TAB PO SCH (20:51)
--- NOTE | 2021-03-11 21:13 | IPN ---
INFECTIOUS DISEASE PROGRESS NOTE DATE: 03/11/2021 SUBJECTIVE: Matthew complains of not being able to hear. He has a headache. He had dialysis. He is not eating well. No fever or chills. He has been transferred to [address] [place] [address]. PHYSICAL EXAMINATION: VITAL SIGNS: Temperature 97, pulse 85, respirations 19, blood pressure 133/69, O2 sat 97% on 5 liters nasal cannula. HEART: Normal S1, S2. No murmurs. LUNGS: Clear anteriorly. No wheezes, rales or rhonchi. ABDOMEN: Morbidly obese, soft, diffusely tender. He has caput medusae with dilated veins over his chest and abdomen. EXTREMITIES: No clubbing, cyanosis or edema. He has a small ulceration on the dorsal aspect of his foot, but there is no cellulitis. Trach collar with minimal secretions in his trach. LABORATORY DATA: White count 8.7, hemoglobin 10.4, hematocrit 35.4, platelets 154,000; improving, 69% neutrophils, 16% lymphocytes, 6% monocytes. Sodium 131, potassium 5.4, chloride 96, bicarb 23, BUN 82, creatinine 7.36, glucose 70. Bilirubin 2.5 down from a max of 4.8. AST 24 down from 340 and ALT 45. Blood cultures were positive for E. coli, resistant to Ampicillin, Levofloxacin and Bactrim. Sputum culture had pseudomonas aeruginosa heavy growth, but patient has been colonized with pseudomonas in his trach since July. MEDICATIONS: Meropenem 1 gram I.V. every 24 hours; currently day #5. IMPRESSION: 1. Gram negative sepsis with E. coli bacteremia with diffuse abdominal pain, hyperbilirubinemia and abnormal liver function tests concerning for acute cholangitis. His CT abdomen showed hepatosplenomegaly and mild enlargement of the common bile duct. At this point patient clinically improving, but still has diffuse abdominal pain and decreased appetite. Repeat blood cultures were done on 03/08/2021. 2. Pseudomonas colonization in his sputum, although his chest x-ray did show some concern of pneumonia on the CT abdomen. I doubt he had pneumonia because his oxygen requirements have not changed. 3. Hypotension from septic shock: Patient off Levophed since 03/08/2021, doing much better. 4. Hearing loss: Please examine his ears, there was no otoscope present on the floor to examine his ears today. PLAN: Continue with I.V. Meropenem for a total of 10 days to treat for E. coli sepsis, was probably of biliary origin with abnormal liver function test and hyperbilirubinemia; end date would be March 16.
[2021-03-12 06:00] VITALS: BP 152/70
[2021-03-12] MEDS: SODIUM CHLORIDE 0.9% INJ 10 ML SYR IV SCH ×3 (06:00→21:57)
[2021-03-12] MEDS: ALBUTEROL SULFATE 2.5 MG/0.5 ML INH NEB SOLN NEB PRN ×2 (06:19→23:20)
[2021-03-12 06:31] LABS: BASO % 0.4 % (0.0-1.0); EOS # 0.5 10^3/uL (0.0-0.5); EOS % 6.3 % (0.0-3.0); HEMOGLOBIN 10.2 g/dl (13.5-17.5); LYMPH # 1.5 10^3/uL (1.5-5.0); LYMPH % 18.4 % (24.0-44.0); MEAN CORPUSCULAR HEMOGLOBIN 26.9 pg (27.0-33.0); MEAN CORPUSCULAR VOLUME 89.7 fl (80.0-96.0); MONO # 0.5 10^3/uL (0.0-0.8); MONO % 6.5 % (2.0-8.0); NEUTROPHILS # 5.4 10^3/uL (1.5-8.5); NEUTROPHILS % 66.1 % (36.0-66.0); PLATELET COUNT, AUTOMATED 165 10^3/uL (150-450); RED BLOOD COUNT 3.79 10^6/uL (4.30-6.10); WHITE BLOOD COUNT 8.1 10^3/uL (4.0-10.0)
[2021-03-12 07:06] LABS: ALBUMIN 2.3 GM/DL (3.2-5.2); BILIRUBIN,TOTAL 2.4 MG/DL (0.2-1.0); CALCIUM LEVEL 8.6 MG/DL (8.5-10.1); CREATININE FOR GFR 5.51 MG/DL (0.70-1.30); GLOMERULAR FILTRATION RATE 11.8 (>60); MAGNESIUM LEVEL 2.2 MG/DL (1.8-2.4); POTASSIUM SERUM 4.7 MEQ/L (3.5-5.1); TOTAL PROTEIN 6.1 GM/DL (6.4-8.2)
[2021-03-12] MEDS: BUDESONIDE 0.5 MG/2 ML INHALATION SUSPENSION INH SCH ×2 (07:33→20:03)
[2021-03-12] MEDS: FORMOTEROL FUMARATE 20 MCG/2 ML INHALATION SOLUTION (PERFOROMIST) INH SCH ×2 (07:33→20:02)
[2021-03-12] MEDS: ALBUTEROL SULFATE 2.5 MG/0.5 ML INH NEB SOLN NEB SCH ×4 (07:59→20:02)
[2021-03-12] MEDS: MIDODRINE 5 MG TAB PO SCH ×3 (08:00→16:00)
[2021-03-12] MEDS: (RENVELA) SEVELAMER **CARBONate** 800 MG TAB PO SCH ×3 (08:00→17:49)
[2021-03-12] MEDS: levETIRAcetam 250MG TABLET (KEPPRA) PO SCH (08:25)
[2021-03-12] MEDS: VITAMIN D 1,000 INTERNATIONAL UNITS TABLET PO SCH (08:25)
[2021-03-12] MEDS: CALCITRIOL 0.25 MCG CAP (S0169) PO SCH (08:25)
[2021-03-12] MEDS: AMIODARONE 200 MG TAB (PACERONE) PO SCH (08:25)
[2021-03-12] MEDS: SERTRALINE 100 MG TAB PO SCH (08:25)
[2021-03-12] MEDS: APIXABAN 2.5 MG TAB (ELIQUIS) PO SCH ×2 (08:25→21:56)
[2021-03-12] MEDS: DIMETHICONE 2% OINTMENT(VANICREAM) 70GM TUBE TOP SCH ×2 (08:26→21:57)
[2021-03-12] MEDS: PANTOPRAZOLE 40MG TAB (PROTONIX) PO SCH (08:26)
[2021-03-12] MEDS: NYSTATIN 100,000 UNITS/GM TOPICAL PWD 15 GM TOP SCH ×2 (08:26→21:56)
[2021-03-12 12:00] VITALS: BP 156/70
--- NOTE | 2021-03-12 12:12 | IPN ---
NEPHROLOGY PROGRESS NOTE DATE: 03/12/2021 SUBJECTIVE: Patient was seen and examined at the bedside today morning. He was dialyzed yesterday and 2 liters of fluid was removed. He tolerated the hemodialysis procedure well, However, I was told by the nursing staff that he is not eating much. He ate very little yesterday. He was hypoglycemic. He had to be started on D10 I.V. infusion. He did not finish his breakfast and when I saw him in the morning, he was having difficulty breathing and we had to do suctioning. OBJECTIVE: VITAL SIGNS: Temperature 99.2 degrees Fahrenheit, blood pressure 152/70, pulse 87, respiratory rate 18, saturating 96% on trach collar at 5 liters. INTAKE/OUTPUT: Ultrafiltration with hemodialysis was 2,000 mL. Weight in the bed scale is not available. PHYSICAL EXAMINATION: GENERAL: Patient is awake, in moderate respiratory distress, lying in bed. HEAD/NECK: Pupils equally round and reactive to light. Mucous membranes are moist. Neck is supple. He has a lot of secretions from the tracheostomy and he is coughing at this time. CVS: S1, S2, regular rate. 1+ edema of the thighs. RESPIRATORY: Decreased breath sounds. He is dependent on trach collar and currently he is getting suctioning done. ABDOMEN: Obese, positive bowel sounds. MUSCULOSKELETAL: Bilateral Waffle boots are noted. Decreased range of movement of bilateral lower extremities. 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 He follows commands and moves bilateral upper extremities. LAB REVIEW: CBC showed WBC 8.1, hemoglobin 10.2, platelets 165,000. BMP showed sodium 133, potassium 4.7, chloride 97, bicarb 28, BUN 51, creatinine 5.5. Total bilirubin 2.4. AST 31, ALT 32, alkaline phosphatase 217. Albumin 2.3. MICROBIOLOGY: Repeat blood cultures from March 08 are negative so far. CURRENT INPATIENT MEDICATIONS: Patient's medications were all reviewed by myself. He continues to be on I.V. Meropenem 1 gram daily and he is also started on D10W half normal saline at 50 cc an hour. No other significant change in medications. ASSESSMENT AND PLAN: 1. End-stage renal disease: Patient was dialyzed yesterday. Volume status is optimal. Next hemodialysis will be done tomorrow morning. 2. Gram negative sepsis with E. coli bacteremia: He continues to be on I.V. Meropenem. Clinically he is getting better. 3. Hypoglycemia and poor oral intake: Patient is currently getting I.V. Dextrose. If his oral intake does not improve, then we might have to start the patient on TPN. 4. Hypotension: Continue current dose of Midodrine. 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 He is morbidly obese. He is chronically bedridden. He has recurrent admissions back to forth to ICU with sepsis, bacteremia, infections and pneumonia. He has chronic respiratory failure, dependent on trach collar, and now he has poor oral intake.
--- NOTE | 2021-03-12 13:27 | IPNPDOC ---
Date Seen The patient was seen on 03/12/21. Progress Note SUBJECTIVE: Dropped to 70's today, has increased secretion production with retrieval of mucous plug per respiratory. D/w resp therapy and pulmonary (Dr. Baer) who suggested possibly starting hypertonic nebulizer treatments for additional mucolytic effect. Complains of continued abdominal pain/discomfort, discussed with surgery and suggested upper GI series- unable to be done due to size. ID continuing IV meropenem. Denies that he is purposely not eating, denies wo rsening depression. Remains on D 10W. OBJECTIVE: PHYSICAL EXAMINATION: Vital Signs: Please see below General: NAD resting in bed, communicating well with me today, Ox3 HEENT: AT/NC, no lymphadenopathy NECK: No JVD, trach in place Lungs: Diminished but clear to auscultation. No wheezing, rales, or rhonchi. Heart: S1, S2, irregularly irregular. Abdomen: Obese, soft, nontender, nondistended. Positive bowel sounds. Extremities: Has chronic atrophy and chronic edema. Neuro: NO focal deficits Psych: flat affect LABORATORY DATA: Please see below MICRO: BCx x 2 sets 03/06/21: E. coli Repeat BCx x 2 sets 03/08/21: NG Sputum Cx: pseudomonas, cornyebacterium IMAGING: CXR 03/11/21: Endotracheal tube remains in good position. Left internal jugular central venous line terminates in the expected location of the brachiocephalic vein in its junction with the SVC. The heart is quite enlarged. Patient is rotated somewhat to the right. Pulmonary vasculature is cephalized and congested similar to the 06 mar 2021 study. No acute infiltrate is seen. Pleural angles are sharp. ASSESSMENT: 50-year-old male with morbid obesity, hypoventilation syndrome, obstructive sleep apnea(NISA) with malclearance of secretions, chronic hypoxic respiratory failure requiring tracheostomy placement (recently changed 03/03/[address] Ortega ), ESRD on dialysis via AV fistula, hyperlipidemia, history of Pseudomonas and Methicillin-resistant staph aureus (MRSA) in the sputum with prolonged hospitalization currently being treated as inpatient for E. coli bacteremia, resolved sepsis. PLAN: Acute on chronic hypoxic and hypercapnic respiratory failure 2/2 to restrictive lung disease from obesity, mucus plugging -Dropped to 70's today due to increased mucous plugging, many secretions today -Recently changed tracheostomy tube on 03/03/21 -C/w albuterol ATC And PRN, pulmicort, added hypertonic saline treatments -Placement is unknown at this time due to some issues with patient not being able to suction himself. Hypoglycemia likely 2/2 to decreased PO intake from abdominal pain/discomfort -BS >100 since being on D10W/0.45 NSS but still not eating -C/w D10 0.45 NS at 50 cc/hr, monitor with FS Q6H -Encourage PO intake if able -Discussed about if this continues may need TPN E. coli bacteremia 2/2 to unknown source (poss GI, cholangitis) - resolved sepsis/septic shock -WBC wnl, afebrile, repeat BCX neg (see above under Micro) -Does not make good urine so UA not sent -CT chest, abdomen and pelvis showed possible common bile duct (CBD) dilation but ultrasound of the liver was unremarkable with no gallstones or signs of cholangitis. -AST/ALT wnl -Remains on meropenem which ID will likely deescalate further today -Monitor for s/s of returning infection Abdominal pain possibly 2/2 to cholangitis vs. other GI abnormality (gastroparesis, etc) -Unable to do Upper GI series and MRCP as suggested by surgery due to patient's size -Will need GI consult when next availalbe. -For now continue with empiric meropenem treating unknown source Depression/anxiety with hx of suicidal thoughts -Evaluated in 09/2020 by psychiatry, please refer to notes -Not worsening per patient, he remains just frustrated with current situation, no SI/HI -C/w home meds End-stage renal disease on maintenance dialysis -HD -Nephrology following Functional paresis, chronic, right upper extremity -Placement has been an issue -Bedbound History of tracheal stenosis, status post dilation and change of trach on03/03/2021 -Resp following History of seizure disorder -C/w keppra History of methicillin-resistant Staphylococcus aureus (MRSA) and 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 DVT px -Eliquis BID Resolved issues: Sepsis 2/2 to E. coli bacteremia Abnormal liver function tests DISPOSITION: Remains inpatient status. Nephrology following closely. VS, I&O, 24H, Fishbone Vital Signs/I&O Vital Signs Date Time Temp Pulse Resp B/P (MAP) Pulse Ox O2 Delivery O2 Flow Rate FiO2 03/12/21 12:00 156/70 (98) 03/12/21 08:25 5.0 28 03/12/21 06:00 99.2 87 18 96 Trach Collar I&O- Last 24 Hours up to 6 AM 03/12/21 06:00 Intake Total 120 ml Output Total 2000 ml Balance -1880 ml Laboratory Data 24H LABS Laboratory Tests 2 03/11/21 13:49: Bedside Glucose (Misc Panel) 68L 03/11/21 17:52: Bedside Glucose (Misc Panel) 66L 03/11/21 17:56: Blood Gas Bicarbonate Standard 21.3L, Arterial Blood pH 7.306L, Arterial Blood Partial Pressure CO2 46.2H, Arterial Blood Partial Pressure O2 74.5L, Arterial Blood Total CO2 23.9, Arterial Blood HCO3 22.5, Arterial Blood Base Excess - 3.8L, Arterial Blood Oxygen Saturation 94.0L 03/12/21 06:05: Immature Granulocyte % (Auto) 2.3, Neutrophils (%) (Auto) 66.1H, Lymphocytes (%) (Auto) 18.4L, Monocytes (%) (Auto) 6.5, Eosinophils (%) (Auto) 6.3H, Basophils (%) (Auto) 0.4, Neutrophils # (Auto) 5.4, Lymphocytes # (Auto) 1.5, Monocytes # (Auto) 0.5, Eosinophils # (Auto) 0.5, Basophils # (Auto) 0.0, Nucleated Red Blood Cells % (auto) 0.0, Anion Gap 8, Glomerular Filtration Rate 11.8L, Calcium Level 8.6, Magnesium Level 2.2, Total Bilirubin 2.4H, Aspartate Amino Transf (AST/SGOT) 31, Alanine Aminotransferase (ALT/SGPT) 32, Alkaline Phosphatase 217H, Total Protein 6.1L, Albumin 2.3L, Albumin/Globulin Ratio 0.6 03/12/21 11:38: Bedside Glucose (Misc Panel) 100 CBC/BMP Laboratory Tests 03/12/21 06:05 Microbiology Microbiology 03/08/21 Blood Culture - Preliminary, Resulted No Growth after 72 hours. All specime... 03/08/21 Blood Culture - Preliminary, Resulted No Growth after 72 hours. All specime... 03/06/21 Gram Stain - Final, Complete 03/06/21 Sputum Culture - Final, Complete Pseudomonas Aeruginosa Corynebacterium Species 03/06/21 Blood Culture - Final, Complete Escherichia Coli 03/06/21 Blood Culture - Final, Complete Escherichia Coli Claudette Padron MD March 12, 2021 13:26
[2021-03-12 14:00] VITALS: BP 154/61
[2021-03-12] MEDS ORDERED: E-Z-PAQUE 96% w/w SUSP 176GM BTL As Ordered ONE (14:00)
[2021-03-12] MEDS ORDERED: E-Z-GAS II EFFERVESCENT PACKET (SODIUM BICARB./CITRIC ACID/SIMETHICONE) As Ordered ONE (14:01)
[2021-03-12] MEDS ORDERED: E-Z-HD 98% w/w 340GM SUSP BTL As Ordered ONE (14:01)
[2021-03-12] MEDS: SODIUM CHLORIDE HYPERTONIC 3% 15ML NEB SOL INH SCH ×3 (15:22→23:19)
[2021-03-12] MEDS: SUCRALFATE SUSP 1GM/10ML UD PO SCH ×2 (17:30→21:55)
[2021-03-12] MEDS: MEROPENEM INJ 1 GM in IV 1 EA IV SCH (17:48)
[2021-03-12] MEDS: D10W/0.45% SODIUM CHLORIDE 1,000 ML IV SCH (17:48)
[2021-03-12] MEDS: PRAMIPEXOLE (MIRAPEX) 0.125 MG TAB PO SCH (21:56)
[2021-03-12 22:00] VITALS: BP 178/111
[2021-03-12] MEDS: oxyCODONE 5MG TAB PO PRN (22:25)
[2021-03-12] MEDS: clonazePAM 0.5 MG TAB PO PRN (22:30)
[2021-03-13] VITALS: BP 127/80
[2021-03-13] MEDS: SODIUM CHLORIDE HYPERTONIC 3% 15ML NEB SOL INH SCH ×5 (03:27→20:45)
[2021-03-13] MEDS: ALBUTEROL SULFATE 2.5 MG/0.5 ML INH NEB SOLN NEB PRN (03:28)
[2021-03-13] MEDS ORDERED: LIDOCAINE 1% SDV 5ML VIAL SC PRN (06:05)
[2021-03-13] MEDS: (RENVELA) SEVELAMER **CARBONate** 800 MG TAB PO SCH ×3 (06:38→18:43)
[2021-03-13] MEDS: SUCRALFATE SUSP 1GM/10ML UD PO SCH ×4 (06:39→21:25)
[2021-03-13] MEDS: APIXABAN 2.5 MG TAB (ELIQUIS) PO SCH ×2 (06:39→21:25)
[2021-03-13] MEDS: levETIRAcetam 250MG TABLET (KEPPRA) PO SCH (06:39)
[2021-03-13] MEDS: PANTOPRAZOLE 40MG TAB (PROTONIX) PO SCH (06:39)
[2021-03-13] MEDS: AMIODARONE 200 MG TAB (PACERONE) PO SCH (06:40)
[2021-03-13] MEDS: MIDODRINE 5 MG TAB PO SCH ×3 (06:41→16:00)
[2021-03-13] MEDS: SODIUM CHLORIDE 0.9% INJ 10 ML SYR IV SCH ×3 (06:42→21:26)
[2021-03-13] MEDS: CALCITRIOL 0.25 MCG CAP (S0169) PO SCH (06:44)
[2021-03-13 06:45] VITALS: BP 160/89
[2021-03-13] MEDS: SERTRALINE 100 MG TAB PO SCH (06:45)
[2021-03-13] MEDS: VITAMIN D 1,000 INTERNATIONAL UNITS TABLET PO SCH (06:47)
[2021-03-13 07:20] LABS: HEMOGLOBIN 10.4 g/dl (13.5-17.5); MEAN CORPUSCULAR HGB CONC 28.9 g/dl (32.0-36.5); PLATELET COUNT, AUTOMATED 183 10^3/uL (150-450); WHITE BLOOD COUNT 9.5 10^3/uL (4.0-10.0)
[2021-03-13] MEDS: ALBUTEROL SULFATE 2.5 MG/0.5 ML INH NEB SOLN NEB SCH ×4 (07:42→20:42)
[2021-03-13] MEDS: BUDESONIDE 0.5 MG/2 ML INHALATION SUSPENSION INH SCH ×2 (07:42→20:43)
[2021-03-13] MEDS: FORMOTEROL FUMARATE 20 MCG/2 ML INHALATION SOLUTION (PERFOROMIST) INH SCH ×2 (07:42→20:43)
[2021-03-13 07:47] LABS: ALBUMIN 2.4 GM/DL (3.2-5.2); BILIRUBIN,TOTAL 2.1 MG/DL (0.2-1.0); CALCIUM LEVEL 7.9 MG/DL (8.5-10.1); CREATININE FOR GFR 6.26 MG/DL (0.70-1.30); GLOMERULAR FILTRATION RATE 10.2 (>60); POTASSIUM SERUM 4.7 MEQ/L (3.5-5.1); TOTAL PROTEIN 6.4 GM/DL (6.4-8.2)
[2021-03-13] MEDS: NYSTATIN 100,000 UNITS/GM TOPICAL PWD 15 GM TOP SCH ×2 (07:51→21:26)
[2021-03-13] MEDS: DIMETHICONE 2% OINTMENT(VANICREAM) 70GM TUBE TOP SCH ×2 (07:51→21:26)
--- NOTE | 2021-03-13 13:30 | IPNPDOC ---
Date Seen The patient was seen on 03/13/21. Progress Note SUBJECTIVE: Improved breathing per patient, states that hypertonic nebulizers helping so will keep. BS 90-100 on D10W, patient wants to try and eat today. If tolerates and BS stay stable, can d/c fluids. No more hypoxic episodes. Has abdominal discomfort which persists but is mildly improved further today. Cannot do MRI or Upper GI series due to size or limitations due to trach, inability to lay flat or hold breath. Denies chest pain, fevers, chills, n/v/d. OBJECTIVE: PHYSICAL EXAMINATION: Vital Signs: Please see below General: NAD resting in bed, communicating well with me today, Ox3 HEENT: AT/NC, no lymphadenopathy NECK: No JVD, trach in place Lungs: Diminished but clear to auscultation. No wheezing, rales, or rhonchi. Heart: S1, S2, irregularly irregular. Abdomen: Obese, soft, nontender, nondistended. Positive bowel sounds. Extremities: Has chronic atrophy and chronic edema. Neuro: NO focal deficits Psych: flat affect LABORATORY DATA: Please see below MICRO: BCx x 2 sets 03/06/21: E. coli Repeat BCx x 2 sets 03/08/21: NG Sputum Cx: pseudomonas, cornyebacterium IMAGING: CXR 03/11/21: Endotracheal tube remains in good position. Left internal jugular central venous line terminates in the expected location of the brachiocephalic vein in its junction with the SVC. The heart is quite enlarged. Patient is rotated somewhat to the right. Pulmonary vasculature is cephalized and congested similar to the 06 mar 2021 study. No acute infiltrate is seen. Pleural angles are sharp. ASSESSMENT: 50-year-old male with morbid obesity, hypoventilation syndrome, obstructive sleep apnea(NISA) with malclearance of secretions, chronic hypoxic respiratory failure requiring tracheostomy placement (recently changed 03/03/[address] Ortega ), ESRD on dialysis via AV fistula, hyperlipidemia, history of Pseudomonas and Methicillin-resistant staph aureus (MRSA) in the sputum with prolonged hospitalization currently being treated as inpatient for E. coli bacteremia, resolved sepsis. PLAN: Acute on chronic hypoxic and hypercapnic respiratory failure 2/2 to restrictive lung disease from obesity, mucus plugging -Decreased secretions, saturating well on prior O2 amount and think hypertonic saline tx helping -Recently changed tracheostomy tube on 03/03/21 -C/w albuterol ATC And PRN, pulmicort, hypertonic saline treatments -Placement is unknown at this time due to some issues with patient not being able to suction himself. Hypoglycemia likely 2/2 to decreased PO intake from abdominal pain/discomfort -BS 90-100 since being on D10W/0.45 NSS. Not eating well still but wants to try eating today. -C/w D10 0.45 NS at 50 cc/hr, monitor with FS Q6H -Encourage PO intake if able -Discussed about if this continues may need TPN E. coli bacteremia 2/2 to unknown source (poss GI, cholangitis) - resolved sepsis/septic shock -WBC wnl, afebrile, repeat BCX neg (see above under Micro) -Does not make good urine so UA not sent -CT chest, abdomen and pelvis showed possible common bile duct (CBD) dilation but ultrasound of the liver was unremarkable with no gallstones or signs of cholangitis. -AST/ALT wnl -Remains on meropenem IV, stop date 03/17/21 (total of 10 day tx) Abdominal pain possibly 2/2 to resolved/resolving cholangitis vs. other GI a bnormality (gastroparesis, etc) -Bili continues to trend down, AST/ALT improved, afebrile, WBC wnl -Unable to do Upper GI series and MRCP as suggested by surgery due to patient's size, other limitations discussed above -Consider GI consult when next availalbe. -For now continue with empiric meropenem treating unknown source Depression/anxiety with hx of suicidal thoughts -Evaluated in 09/2020 by psychiatry, please refer to notes -Not worsening per patient, he remains just frustrated with current situation, no SI/HI -C/w home meds End-stage renal disease on maintenance dialysis -HD -Nephrology following Functional paresis, chronic, right upper extremity -Placement has been an issue -Bedbound History of tracheal stenosis, status post dilation and change of trach on03/03/2021 -Resp following History of seizure disorder -C/w keppra History of methicillin-resistant Staphylococcus aureus (MRSA) and 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 D/c IVFs when eating better DVT px -Eliquis BID Resolved issues: Sepsis 2/2 to E. coli bacteremia Abnormal liver function tests DISPOSITION: Remains inpatient status. Nephrology following closely. VS, I&O, 24H, Fishbone Vital Signs/I&O Vital Signs Date Time Temp Pulse Resp B/P (MAP) Pulse Ox O2 Delivery O2 Flow Rate FiO2 03/13/21 08:10 5.0 28 03/13/21 06:45 96.8 74 20 160/89 (112) 94 Trach Collar I&O- Last 24 Hours up to 6 AM 03/13/21 06:00 Intake Total 0 ml Output Total 0 ml Balance 0 ml Laboratory Data 24H LABS Laboratory Tests 2 03/13/21 06:28: Bedside Glucose (Misc Panel) 91 03/13/21 07:02: Nucleated Red Blood Cells % (auto) 0.2H, Anion Gap 9, Glomerular Filtration Rate 10.2L, Calcium Level 7.9L, Magnesium Level 2.0, Total Bilirubin 2.1H, Aspartate Amino Transf (AST/SGOT) 29, Alanine Aminotransferase (ALT/SGPT) 25, Alkaline Phosphatase 241H, Total Protein 6.4, Albumin 2.4L, Albumin/Globulin Ratio 0.6 CBC/BMP Laboratory Tests 03/13/21 07:02 Microbiology Microbiology 03/08/21 Blood Culture - Preliminary, Resulted No Growth after 72 hours. All specime... 03/08/21 Blood Culture - Preliminary, Resulted No Growth after 72 hours. All specime... 03/06/21 Gram Stain - Final, Complete 03/06/21 Sputum Culture - Final, Complete Pseudomonas Aeruginosa Corynebacterium Species 03/06/21 Blood Culture - Final, Complete Escherichia Coli 03/06/21 Blood Culture - Final, Complete Escherichia Coli Claudette Padron MD March 13, 2021 13:30
[2021-03-13 14:00] VITALS: BP 189/99
[2021-03-13] MEDS: D10W/0.45% SODIUM CHLORIDE 1,000 ML IV SCH (14:29)
--- NOTE | 2021-03-13 18:01 | IPNPDOC ---
Date Seen The patient was seen on 03/13/21. Progress Note SUBJECTIVE: Matthew was seen and examined at the bedside this afternoon. He states he is feeling well. He denies any abdominal pain. Nursing reports he ate a meal this morning. He has yet to eat this afternoon but states he is hungry and is ready to eat his tray of food. No other issues reported by nursing. Hearing better OBJECTIVE PHYSICAL EXAMINATION: VITAL SIGNS: Please see below. GENERAL APPEARANCE: laying flat in bed, calm, cooperative, only able to mouth words, does not appear in any acute distress HEENT: mucus membranes dry, normocephalic, atraumatic, tracheostomy tube in place with some granualated tissue and pus-filled drainage surrounding it, ears no cerumen impaction RESPIRATORY: difficult to auscultate but decreased breath sounds throughout all lung kline CARDIOVASCULAR: difficult to appreciate due to size but 2/6 YOUSUF in RUSB, no rubs/gallops, normal S1/S2 ABDOMEN: soft, nontender to palpation, +BS, no discernable masses or organomegaly EXTREMITIES: AV fistula in place in R and left wrists. There is a small pressure ulcer from neuro-boots on R dorsal aspect of foot. Bilateral LE are contracted SKIN: Large area that appears purplish-pink and excoriated on his buttocks and lower back extending to his scrotum, between cheeks erythema moisture , no decub NEUROLOGICAL: unable to examine PSYCHIATRIC: unable to examine LABORATORY DATA: Please see below. ASSESSMENT: This is a 50 YO M with history of ESRD on HD with chronic respiratory failure with tracheostomy with recent history of hypotension with leukocytosis and lactic acidosis concerning for septic shock and E. coli bacteremia of unknown etiology, now seems to have resolved. Gram negative sepsis 2/2 E. coli bacteremia: -CT abd/pel initially concerning for enlargement of CBD, general surgery consulted, abdominal pain and transaminitis have resolved -WBC trended down to 9.5 -CT Chest with areas of atelectasis/pneumonic infiltrate on R lung -Patient has history of MRSA and Pseudomonas in sputum -Most recent blood cultures 03/08/21 negative growth PLAN -Continue IV Meropenem until 03/16/21 for Ecoli sepsis and ? pseudomonas pneumonia vs colonization VS, I&O, 24H, Fishbone Vital Signs/I&O Vital Signs Date Time Temp Pulse Resp B/P (MAP) Pulse Ox O2 Delivery O2 Flow Rate FiO2 03/13/21 14:00 97.2 81 18 189/99 (129) 99 Trach Collar 5.0 03/13/21 10:00 28 I&O- Last 24 Hours up to 6 AM 03/13/21 06:00 Intake Total 0 ml Output Total 0 ml Balance 0 ml Laboratory Data 24H LABS Laboratory Tests 2 03/13/21 06:28: Bedside Glucose (Misc Panel) 91 03/13/21 07:02: Nucleated Red Blood Cells % (auto) 0.2H, Anion Gap 9, Glomerular Filtration Rate 10.2L, Calcium Level 7.9L, Magnesium Level 2.0, Total Bilirubin 2.1H, Aspartate Amino Transf (AST/SGOT) 29, Alanine Aminotransferase (ALT/SGPT) 25, Alkaline Phosphatase 241H, Total Protein 6.4, Albumin 2.4L, Albumin/Globulin Ratio 0.6 03/13/21 14:47: Bedside Glucose (Misc Panel) 93 CBC/BMP Laboratory Tests 03/13/21 07:02 Microbiology Microbiology 03/08/21 Blood Culture - Preliminary, Resulted No Growth after 72 hours. All specime... 03/08/21 Blood Culture - Final, Complete NO GROWTH AFTER 5 DAYS 03/06/21 Gram Stain - Final, Complete 03/06/21 Sputum Culture - Final, Complete Pseudomonas Aeruginosa Corynebacterium Species 03/06/21 Blood Culture - Final, Complete Escherichia Coli 03/06/21 Blood Culture - Final, Complete Escherichia Coli GME ATTESTATION GME ATTESTATION My faculty preceptor for this patient encounter was physically present during the encounter and was fully available. All aspects of the patient interview, examination, medical decision making process, and medical care plan development were reviewed and approved by the faculty preceptor. The faculty preceptor is aware and concurs with the plan as stated in the body of this note and will attest to such by his/her cosignature. ANKIT MULLEN MD March 13, 2021 18:01 Lyndon Quesada MD March 13, 2021 22:28
[2021-03-13] MEDS: MEROPENEM INJ 1 GM in IV 1 EA IV SCH (18:43)
[2021-03-13] MEDS: clonazePAM 0.5 MG TAB PO PRN (21:25)
[2021-03-13] MEDS: oxyCODONE 5MG TAB PO PRN (21:25)
[2021-03-13] MEDS: PRAMIPEXOLE (MIRAPEX) 0.125 MG TAB PO SCH (21:25)
[2021-03-13 22:00] VITALS: BP 129/82
--- NOTE | 2021-03-13 22:51 | IPN ---
NEPHROLOGY PROGRESS NOTE DATE: 03/13/2021 SUBJECTIVE: Patient was seen and examined at the bedside today morning during hemodialysis procedure. He is tolerating the hemodialysis procedure well. He is not eating well. He is still requiring I.V. Dextrose. Patient reports that he wants to eat, but because of his breathing problem, he cannot eat. OBJECTIVE: VITAL SIGNS: Temperature 98 degrees Fahrenheit, blood pressure 189/99, pulse 81, respiratory rate 18, saturating 99% on trach collar at 5 liters. INTAKE/OUTPUT: Urine output is not recorded. Weight in the bed scale was 163.5 kg. PHYSICAL EXAMINATION: GENERAL: Patient is awake, alert and oriented x3, morbidly obese, lying in bed in no apparent distress. HEAD/NECK: Extraocular muscles intact. Pupils equally round and reactive to light. Mucous membranes are moist. Neck is supple. He has a trach collar. CVS: S1, S2, regular rate. 1+ edema of the bilateral thighs. RESPIRATORY: Patient is trach collar dependent. No active rales or rhonchi. Bilateral equal air entry. ABDOMEN: Obese, positive bowel sounds. Abdominal wall edema especially in the flanks; right is worse than left. MUSCULOSKELETAL: Decreased range of movement of bilateral lower extremities. He is wearing Waffle boots. 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 He is able to follow commands and moves upper extremities. LAB REVIEW: CBC showed WBC 9.5, hemoglobin 10.4, platelets 183,000. BMP showed sodium 131, potassium 4.7, chloride 97, bicarb 25, BUN 57, creatinine 6.2. Total bilirubin 2.1. Alkaline phosphatase 241. MICROBIOLOGY: Blood cultures from March 08 are negative so far. CURRENT INPATIENT MEDICATIONS: Patient's medications were all reviewed by myself. He continues to be on I.V. Meropenem . He is also getting Dextrose 10% with half normal saline at 50 cc an hour. No other significant change in medications. ASSESSMENT AND PLAN: 1. End-stage renal disease: Patient is being dialyzed according to his regular schedule. Because of edema, I would try to remove at least 3 liters of fluid. 2. Gram negative sepsis and E. coli bacteremia: Patient continues to be on Meropenem. Repeat cultures are negative. 3. Poor oral intake and hypoglycemia: Patient is still requiring I.V. Dextrose. He should be encouraged to eat more, so we can stop his I.V. fluids. 4. Chronic hypotension: Continue current dose of Midodrine. 5. Anemia and end-stage renal disease: Hemoglobin level is stable with current dose of Aranesp. 6. Chronic respiratory failure: Patient is trach collar dependent. He requires frequent suctioning. 7. Atrial fibrillation: Heart rate is controlled. He continues to be on Amiodarone and Eliquis.
[2021-03-14] MEDS: ALBUTEROL SULFATE 2.5 MG/0.5 ML INH NEB SOLN NEB PRN ×3 (00:13→23:27)
[2021-03-14] MEDS: SODIUM CHLORIDE HYPERTONIC 3% 15ML NEB SOL INH SCH ×7 (00:14→23:27)
[2021-03-14 06:00] VITALS: BP 144/64
[2021-03-14] MEDS: SODIUM CHLORIDE 0.9% INJ 10 ML SYR IV SCH ×3 (06:54→21:48)
[2021-03-14 07:08] LABS: HEMATOCRIT 34.1 % (42.0-52.0); HEMOGLOBIN 9.9 g/dl (13.5-17.5); MEAN CORPUSCULAR HEMOGLOBIN 26.9 pg (27.0-33.0); MEAN CORPUSCULAR VOLUME 92.7 fl (80.0-96.0); PLATELET COUNT, AUTOMATED 157 10^3/uL (150-450); RED BLOOD COUNT 3.68 10^6/uL (4.30-6.10); WHITE BLOOD COUNT 8.5 10^3/uL (4.0-10.0)
[2021-03-14] MEDS: FORMOTEROL FUMARATE 20 MCG/2 ML INHALATION SOLUTION (PERFOROMIST) INH SCH ×2 (07:18→20:00)
[2021-03-14] MEDS: BUDESONIDE 0.5 MG/2 ML INHALATION SUSPENSION INH SCH ×2 (07:18→20:00)
[2021-03-14 07:39] LABS: ALBUMIN 2.1 GM/DL (3.2-5.2); BILIRUBIN,TOTAL 1.7 MG/DL (0.2-1.0); CREATININE FOR GFR 5.76 MG/DL (0.70-1.30); GLOMERULAR FILTRATION RATE 11.3 (>60); POTASSIUM SERUM 4.2 MEQ/L (3.5-5.1)
[2021-03-14] MEDS: ALBUTEROL SULFATE 2.5 MG/0.5 ML INH NEB SOLN NEB SCH ×4 (08:00→20:00)
[2021-03-14] MEDS: MIDODRINE 5 MG TAB PO SCH ×3 (08:00→16:00)
[2021-03-14] MEDS: levETIRAcetam 250MG TABLET (KEPPRA) PO SCH (08:57)
[2021-03-14] MEDS: SUCRALFATE SUSP 1GM/10ML UD PO SCH ×4 (08:57→20:38)
[2021-03-14] MEDS: (RENVELA) SEVELAMER **CARBONate** 800 MG TAB PO SCH ×3 (08:57→17:30)
[2021-03-14] MEDS: SERTRALINE 100 MG TAB PO SCH (08:59)
[2021-03-14] MEDS: CALCITRIOL 0.25 MCG CAP (S0169) PO SCH (08:59)
[2021-03-14] MEDS: AMIODARONE 200 MG TAB (PACERONE) PO SCH (09:00)
[2021-03-14] MEDS: APIXABAN 2.5 MG TAB (ELIQUIS) PO SCH ×2 (09:00→20:36)
[2021-03-14] MEDS: PANTOPRAZOLE 40MG TAB (PROTONIX) PO SCH (09:00)
[2021-03-14] MEDS: VITAMIN D 1,000 INTERNATIONAL UNITS TABLET PO SCH (09:00)
[2021-03-14] MEDS: NYSTATIN 100,000 UNITS/GM TOPICAL PWD 15 GM TOP SCH ×2 (09:00→20:36)
[2021-03-14] MEDS: DIMETHICONE 2% OINTMENT(VANICREAM) 70GM TUBE TOP SCH ×2 (09:01→20:38)
[2021-03-14 14:57] VITALS: BP 144/92
--- NOTE | 2021-03-14 17:00 | IPNPDOC ---
Date Seen The patient was seen on 03/14/21. Progress Note SUBJECTIVE: Eating and has increased appetite, less abdominal pain. Stopped D10 fluids. Watch BS. No hypoxic events overnight. Denies chest pain, fevers, chills, n/v/d. OBJECTIVE: PHYSICAL EXAMINATION: Vital Signs: Please see below General: NAD resting in bed, communicating well with me today, Ox3 HEENT: AT/NC, no lymphadenopathy NECK: No JVD, trach in place Lungs: Diminished but clear to auscultation. No wheezing, rales, or rhonchi. Heart: S1, S2, irregularly irregular. Abdomen: Obese, soft, nontender, nondistended. Positive bowel sounds. Extremities: Has chronic atrophy and chronic edema. Neuro: No focal deficits Psych: flat affect LABORATORY DATA: Please see below MICRO: BCx x 2 sets 03/06/21: E. coli Repeat BCx x 2 sets 03/08/21: NG Sputum Cx: pseudomonas, cornyebacterium IMAGING: CXR 03/11/21: Endotracheal tube remains in good position. Left internal jugular central venous line terminates in the expected location of the brachiocephalic vein in its junction with the SVC. The heart is quite enlarged. Patient is rotated somewhat to the right. Pulmonary vasculature is cephalized and congested similar to the 06 mar 2021 study. No acute infiltrate is seen. Pleural angles are sharp. ASSESSMENT: 50-year-old male with morbid obesity, hypoventilation syndrome, obstructive sleep apnea(NISA) with malclearance of secretions, chronic hypoxic respiratory failure requiring tracheostomy placement (recently changed 03/03/[address] Ortega ), ESRD on dialysis via AV fistula, hyperlipidemia, history of Pseudomonas and Methicillin-resistant staph aureus (MRSA) in the sputum with prolonged hospitalization currently being treated as inpatient for E. coli bacteremia, resolved sepsis. PLAN: Acute on chronic hypoxic and hypercapnic respiratory failure 2/2 to restrictive lung disease from obesity, mucus plugging -Saturating well on normal amount of O2 -Recently changed tracheostomy tube on 03/03/21 -C/w albuterol ATC And PRN, pulmicort, hypertonic saline treatments -Placement is unknown at this time due to patient needing frequent suctioning Hypoglycemia likely 2/2 to decreased PO intake from abdominal pain/discomfort -BS 80-90's, D10 stopped today to see how he does without fluids. -Eating has improved will continue to encourage -FS BID E. coli bacteremia 2/2 to unknown source (poss GI, cholangitis) - resolved sepsis/septic shock -WBC wnl, afebrile, repeat BCX neg (see above under Micro) -UA not obtained -CT chest, abdomen and pelvis showed possible common bile duct (CBD) dilation but ultrasound of the liver was unremarkable with no gallstones or signs of cholangitis. -AST/ALT wnl -Remains on meropenem IV, stop date 03/17/21 (total of 10 day tx) Abdominal pain possibly 2/2 to resolved/resolving cholangitis vs. other GI a bnormality (gastroparesis, etc) -Bili continues to trend down, AST/ALT improved, afebrile, WBC wnl -Unable to do Upper GI series and MRCP as suggested by surgery due to patient's size, other limitations discussed above -Consider GI consult when next available. 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 D/c IVFs when eating better DVT px -Eliquis BID Resolved issues: Sepsis 2/2 to E. coli bacteremia Abnormal liver function tests DISPOSITION: Remains inpatient status. Nephrology following closely. VS, I&O, 24H, Fishbone Vital Signs/I&O Vital Signs Date Time Temp Pulse Resp B/P (MAP) Pulse Ox O2 Delivery O2 Flow Rate FiO2 03/14/21 14:57 98.4 83 16 144/92 (109) 92 Trach Collar 5.0 03/14/21 09:00 28 I&O- Last 24 Hours up to 6 AM 03/14/21 06:00 Intake Total 710 ml Output Total 3000 ml Balance -2290 ml Laboratory Data 24H LABS Laboratory Tests 2 03/13/21 18:59: Bedside Glucose (Misc Panel) 112H 03/14/21 00:03: Bedside Glucose (Misc Panel) 93 03/14/21 06:46: Nucleated Red Blood Cells % (auto) 0.2H, Anion Gap 8, Glomerular Filtration Rate 11.3L, Calcium Level 8.0L, Total Bilirubin 1.7H, Aspartate Amino Transf (AST/SGOT) 22, Alanine Aminotransferase (ALT/SGPT) 18, Alkaline Phosphatase 228H, Total Protein 6.0L, Albumin 2.1L, Albumin/Globulin Ratio 0.5 03/14/21 11:55: Bedside Glucose (Misc Panel) 88 03/14/21 16:47: Bedside Glucose (Misc Panel) 79 CBC/BMP Laboratory Tests 03/14/21 06:46 Microbiology Microbiology 03/08/21 Blood Culture - Final, Complete NO GROWTH AFTER 5 DAYS 03/08/21 Blood Culture - Final, Complete NO GROWTH AFTER 5 DAYS 03/06/21 Gram Stain - Final, Complete 03/06/21 Sputum Culture - Final, Complete Pseudomonas Aeruginosa Corynebacterium Species 03/06/21 Blood Culture - Final, Complete Escherichia Coli 03/06/21 Blood Culture - Final, Complete Escherichia Coli Claudette Padron MD March 14, 2021 17:00
[2021-03-14] MEDS: MEROPENEM INJ 1 GM in IV 1 EA IV SCH (17:30)
[2021-03-14] MEDS: SODIUM CHLORIDE 0.9% INJ 10 ML SYR IV PRN ×2 (19:48→21:05)
[2021-03-14] MEDS: ACETAMINOPHEN TAB 650MG DOSE (2X325MG) PO PRN (20:35)
[2021-03-14] MEDS: PRAMIPEXOLE (MIRAPEX) 0.125 MG TAB PO SCH (20:35)
[2021-03-14] MEDS: clonazePAM 0.5 MG TAB PO PRN (20:35)
[2021-03-14] MEDS: oxyCODONE 5MG TAB PO PRN (20:36)
[2021-03-14 22:00] VITALS: BP 156/88
[2021-03-15] MEDS: SODIUM CHLORIDE HYPERTONIC 3% 15ML NEB SOL INH SCH ×6 (04:10→23:52)
[2021-03-15] MEDS: ALBUTEROL SULFATE 2.5 MG/0.5 ML INH NEB SOLN NEB PRN ×2 (04:11→23:53)
[2021-03-15] MEDS: SODIUM CHLORIDE 0.9% INJ 10 ML SYR IV SCH ×3 (05:33→20:24)
[2021-03-15] MEDS: AMIODARONE 200 MG TAB (PACERONE) PO SCH (05:33)
[2021-03-15] MEDS: APIXABAN 2.5 MG TAB (ELIQUIS) PO SCH ×2 (05:34→20:24)
[2021-03-15] MEDS: PANTOPRAZOLE 40MG TAB (PROTONIX) PO SCH (05:34)
[2021-03-15] MEDS: SERTRALINE 100 MG TAB PO SCH (05:34)
[2021-03-15] MEDS: levETIRAcetam 250MG TABLET (KEPPRA) PO SCH (05:35)
[2021-03-15] MEDS: VITAMIN D 1,000 INTERNATIONAL UNITS TABLET PO SCH (05:35)
[2021-03-15] MEDS: (RENVELA) SEVELAMER **CARBONate** 800 MG TAB PO SCH ×3 (05:35→18:01)
[2021-03-15] MEDS: oxyCODONE 5MG TAB PO PRN ×2 (05:36→20:23)
[2021-03-15] MEDS: SUCRALFATE SUSP 1GM/10ML UD PO SCH ×4 (05:36→20:25)
[2021-03-15] MEDS: MIDODRINE 5 MG TAB PO SCH ×3 (05:39→17:01)
[2021-03-15 06:00] VITALS: BP 118/53
[2021-03-15 06:04] LABS: HEMATOCRIT 32.4 % (42.0-52.0); HEMOGLOBIN 9.3 g/dl (13.5-17.5); MEAN CORPUSCULAR HEMOGLOBIN 26.3 pg (27.0-33.0); MEAN CORPUSCULAR HGB CONC 28.7 g/dl (32.0-36.5); MEAN CORPUSCULAR VOLUME 91.5 fl (80.0-96.0); PLATELET COUNT, AUTOMATED 150 10^3/uL (150-450); RED BLOOD COUNT 3.54 10^6/uL (4.30-6.10); WHITE BLOOD COUNT 8.1 10^3/uL (4.0-10.0)
[2021-03-15 06:24] LABS: ALBUMIN 2.2 GM/DL (3.2-5.2); BILIRUBIN,TOTAL 1.7 MG/DL (0.2-1.0); CALCIUM LEVEL 7.7 MG/DL (8.5-10.1); CREATININE FOR GFR 6.48 MG/DL (0.70-1.30); GLOMERULAR FILTRATION RATE 9.8 (>60); POTASSIUM SERUM 4.3 MEQ/L (3.5-5.1); TOTAL PROTEIN 5.8 GM/DL (6.4-8.2)
[2021-03-15] MEDS ORDERED: LIDOCAINE 1% SDV 5ML VIAL SC PRN (07:10)
[2021-03-15] MEDS: BUDESONIDE 0.5 MG/2 ML INHALATION SUSPENSION INH SCH ×2 (07:44→20:39)
[2021-03-15] MEDS: FORMOTEROL FUMARATE 20 MCG/2 ML INHALATION SOLUTION (PERFOROMIST) INH SCH ×2 (07:44→20:38)
[2021-03-15] MEDS: ALBUTEROL SULFATE 2.5 MG/0.5 ML INH NEB SOLN NEB SCH ×4 (07:45→20:39)
[2021-03-15] MEDS: DARBEPOETIN 200MCG/0.4ML *DIALYSIS* SYRINGE (J0882 PER 1MCG) IV SCH (08:57)
[2021-03-15 13:00] VITALS: BP 144/62
[2021-03-15] MEDS: DIMETHICONE 2% OINTMENT(VANICREAM) 70GM TUBE TOP SCH ×2 (13:11→20:25)
[2021-03-15] MEDS: NYSTATIN 100,000 UNITS/GM TOPICAL PWD 15 GM TOP SCH ×2 (13:12→20:25)
--- NOTE | 2021-03-15 17:26 | IPNPDOC ---
Date Seen The patient was seen on 03/15/21. Progress Note SUBJECTIVE: Liberalized diet after discussion with nephrology, now regular diet. Watch BS. No acute events overnight, doing better, no abd pain. Denies chest pain, fevers, chills, n/v/d. OBJECTIVE: PHYSICAL EXAMINATION: Vital Signs: Please see below General: NAD resting in bed, communicating well with me today, Ox3 HEENT: AT/NC, no lymphadenopathy NECK: No JVD, trach in place Lungs: Diminished but clear to auscultation. No wheezing, rales, or rhonchi. Heart: S1, S2, irregularly irregular. Abdomen: Obese, soft, nontender, nondistended. Positive bowel sounds. Extremities: Has chronic atrophy and chronic edema. Neuro: No focal deficits Psych: flat affect LABORATORY DATA: Please see below MICRO: BCx x 2 sets 03/06/21: E. coli Repeat BCx x 2 sets 03/08/21: NG Sputum Cx: pseudomonas, cornyebacterium IMAGING: CXR 03/11/21: Endotracheal tube remains in good position. Left internal jugular central venous line terminates in the expected location of the brachiocephalic vein in its junction with the SVC. The heart is quite enlarged. Patient is rotated somewhat to the right. Pulmonary vasculature is cephalized and congested similar to the 06 mar 2021 study. No acute infiltrate is seen. Pleural angles are sharp. ASSESSMENT: 50-year-old male with morbid obesity, hypoventilation syndrome, obstructive sleep apnea(NISA) with malclearance of secretions, chronic hypoxic respiratory failure requiring tracheostomy placement (recently changed 03/03/[address] Ortega ), ESRD on dialysis via AV fistula, hyperlipidemia, history of Pseudomonas and Methicillin-resistant staph aureus (MRSA) in the sputum with prolonged hospitalization currently being treated as inpatient for E. coli bacteremia, resolved sepsis. PLAN: Hypoglycemia likely 2/2 to decreased PO intake from abdominal pain/discomfort- improving -BS 79-100, liberalized diet today and he wants to eat more so hopefully we see further improvement now that abd pain has resolved -No longer on D5 fluids -FS BID Acute on chronic hypoxic and hypercapnic respiratory failure 2/2 to restrictive lung disease from obesity, mucus plugging -Saturating well on normal amount of O2 -Recently changed tracheostomy tube on 03/03/21 -C/w albuterol ATC And PRN, pulmicort, hypertonic saline treatments -Placement is unknown at this time due to patient needing frequent suctioning E. coli bacteremia 2/2 to unknown source (poss GI, cholangitis) - resolved sepsis/septic shock -WBC wnl, afebrile, repeat BCX neg (see above under Micro) -UA not obtained -CT chest, abdomen and pelvis showed possible common bile duct (CBD) dilation but ultrasound of the liver was unremarkable with no gallstones or signs of ch olangitis. -AST/ALT wnl -Remains on meropenem IV, stop date 03/17/21 (total of 10 day tx) Abdominal pain possibly 2/2 to resolved/resolving cholangitis vs. other GI abnormality (gastroparesis, etc) -Bili continues to trend down at 1.7, AST/ALT improved, afebrile, WBC wnl -Unable to do Upper GI series and MRCP as suggested by surgery due to patient's size, other limitations discussed above -If worsens again, consider GI consult when next available. 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 -C/w HD, midodrine. DVT px -Eliquis BID Resolved issues: Sepsis 2/2 to E. coli bacteremia Abnormal liver function tests DISPOSITION: Remains inpatient status. Nephrology following closely. If continue s to improve, can likely make ALC again after weekend. VS, I&O, 24H, Fishbone Vital Signs/I&O Vital Signs Date Time Temp Pulse Resp B/P (MAP) Pulse Ox O2 Delivery O2 Flow Rate FiO2 03/15/21 15:22 91 18 96 Trach Collar 5.0 28 03/15/21 13:00 144/62 (89) 03/15/21 06:00 98.3 I&O- Last 24 Hours up to 6 AM 03/15/21 06:00 Intake Total 480 ml Output Total 0 ml Balance 480 ml Laboratory Data 24H LABS Laboratory Tests 2 03/15/21 05:32: Nucleated Red Blood Cells % (auto) 0.2H, Anion Gap 12, Glomerular Filtration Rate 9.8L, Calcium Level 7.7L, Total Bilirubin 1.7H, Aspartate Amino Transf (AST/SGOT) 22, Alanine Aminotransferase (ALT/SGPT) 12, Alkaline Phosphatase 195H, Total Protein 5.8L, Albumin 2.2L, Albumin/Globulin Ratio 0.6 CBC/BMP Laboratory Tests 03/15/21 05:32 Microbiology Microbiology 03/08/21 Blood Culture - Final, Complete NO GROWTH AFTER 5 DAYS 03/08/21 Blood Culture - Final, Complete NO GROWTH AFTER 5 DAYS 03/06/21 Gram Stain - Final, Complete 03/06/21 Sputum Culture - Final, Complete Pseudomonas Aeruginosa Corynebacterium Species 03/06/21 Blood Culture - Final, Complete Escherichia Coli 03/06/21 Blood Culture - Final, Complete Escherichia Coli Claudette Padron MD March 15, 2021 17:26
[2021-03-15] MEDS: MEROPENEM INJ 1 GM in IV 1 EA IV SCH (18:02)
[2021-03-15] MEDS: clonazePAM 0.5 MG TAB PO PRN (20:24)
[2021-03-15] MEDS: PRAMIPEXOLE (MIRAPEX) 0.125 MG TAB PO SCH (20:24)
[2021-03-15] MEDS: ACETAMINOPHEN TAB 650MG DOSE (2X325MG) PO PRN (20:24)
--- NOTE | 2021-03-15 21:38 | IPN ---
NEPHROLOGY PROGRESS NOTE DATE: 03/15/2021 SUBJECTIVE: The patient was seen and examined at the bedside today morning during hemodialysis procedure. He is tolerating the hemodialysis procedure well. He denies any active complaints at this time. He reports his oral intake is better now. His IV fluids are stopped. OBJECTIVE: VITAL SIGNS: Temperature is 98 degrees Fahrenheit, blood pressure is 144/62, pulse 91, respiratory rate of 18, saturating 96% on a trach collar at 5 liters. INTAKE AND OUTPUT: Urine output is not recorded. Weight in the bed scale is not available. PHYSICAL EXAMINATION: GENERAL APPEARANCE: The patient is awake, alert, oriented x3, laying in bed. HEAD AND NECK: Extraocular muscles intact. Pupils are equally round and reactive to light. Mucous membranes are moist. Neck is supple. He has a trach collar. CARDIOVASCULAR: S1, S2, regular rate. EXTREMITIES: 1+ edema of the thighs. RESPIRATORY: Chest is clear to auscultation bilaterally. ABDOMEN: Soft, positive bowel sounds. Abdominal wall edema is noted. MUSCULOSKELETAL: Decreased range of movement of the lower extremities. He is wearing waffle boots on the lower extremities. CLAIMS CLERK: The patient moves bilateral upper extremities and follows commands. He is unable to talk because of tracheostomy. LAB REVIEW: CBC showed a WBC count of 8.1, hemoglobin 9.3, platelet count of 150. BMP showed sodium of 134, potassium 4.3, chloride 99, bicarbonate 23, BUN 54, creatinine is 6.4. Calcium is 7.7. Total bilirubin 1.7. CURRENT INPATIENT MEDICATIONS: The patient's medications were all reviewed by myself. No significant change in the medications today. He continues to be on IV Meropenem. ASSESSMENT AND PLAN: 1. End-stage renal disease - The patient is being dialyzed today according to the regular schedule. Ultrafiltration goal is 3 liters as tolerated by his blood pressure. 2. Anemia and end-stage renal disease - hemoglobin level is stable with current dose of Aranesp. 3. Recent E-coli bacteremia and respiratory colonization with pseudomonas - The patient is currently on Meropenem. Hemodynamically he is stable. 4. Secondary hyperparathyroidism - continue current dose of Calcitriol. 5. Chronic kidney disease, mineral bone disease and hyperphosphatemia - The patient is noncompliant with the phosphorous binders, and he does not want to take the renal diet. He wants to order food from outside, otherwise he goes on a hunger strike. [facility]
[2021-03-15 22:00] VITALS: BP 119/67
[2021-03-16] MEDS: ALBUTEROL SULFATE 2.5 MG/0.5 ML INH NEB SOLN NEB PRN ×2 (04:00→23:31)
[2021-03-16] MEDS: SODIUM CHLORIDE HYPERTONIC 3% 15ML NEB SOL INH SCH ×6 (04:00→23:31)
[2021-03-16] MEDS: SODIUM CHLORIDE 0.9% INJ 10 ML SYR IV SCH ×3 (05:32→22:06)
[2021-03-16 06:00] VITALS: BP 120/51
[2021-03-16] MEDS: ALBUTEROL SULFATE 2.5 MG/0.5 ML INH NEB SOLN NEB SCH ×4 (07:24→19:56)
[2021-03-16] MEDS: FORMOTEROL FUMARATE 20 MCG/2 ML INHALATION SOLUTION (PERFOROMIST) INH SCH ×2 (07:24→19:56)
[2021-03-16] MEDS: BUDESONIDE 0.5 MG/2 ML INHALATION SUSPENSION INH SCH ×2 (07:24→19:56)
[2021-03-16] MEDS: SUCRALFATE SUSP 1GM/10ML UD PO SCH ×4 (07:30→22:06)
[2021-03-16 08:23] LABS: HEMATOCRIT 35.9 % (42.0-52.0); HEMOGLOBIN 10.1 g/dl (13.5-17.5); MEAN CORPUSCULAR HEMOGLOBIN 26.6 pg (27.0-33.0); MEAN CORPUSCULAR HGB CONC 28.1 g/dl (32.0-36.5); MEAN CORPUSCULAR VOLUME 94.5 fl (80.0-96.0); PLATELET COUNT, AUTOMATED 138 10^3/uL (150-450); WHITE BLOOD COUNT 7.5 10^3/uL (4.0-10.0)
[2021-03-16 08:50] LABS: ALBUMIN 2.1 GM/DL (3.2-5.2); BILIRUBIN,TOTAL 1.3 MG/DL (0.2-1.0); CALCIUM LEVEL 8.6 MG/DL (8.5-10.1); CREATININE FOR GFR 5.94 MG/DL (0.70-1.30); GLOMERULAR FILTRATION RATE 10.9 (>60); POTASSIUM SERUM 4.5 MEQ/L (3.5-5.1); TOTAL PROTEIN 6.4 GM/DL (6.4-8.2)
[2021-03-16 10:00] VITALS: BP 171/78
[2021-03-16] MEDS: (RENVELA) SEVELAMER **CARBONate** 800 MG TAB PO SCH ×3 (10:49→17:36)
[2021-03-16] MEDS: VITAMIN D 1,000 INTERNATIONAL UNITS TABLET PO SCH (10:49)
[2021-03-16] MEDS: APIXABAN 2.5 MG TAB (ELIQUIS) PO SCH ×2 (10:49→22:04)
[2021-03-16] MEDS: levETIRAcetam 250MG TABLET (KEPPRA) PO SCH (10:49)
[2021-03-16] MEDS: NYSTATIN 100,000 UNITS/GM TOPICAL PWD 15 GM TOP SCH ×2 (10:50→22:06)
[2021-03-16] MEDS: DIMETHICONE 2% OINTMENT(VANICREAM) 70GM TUBE TOP SCH ×2 (10:50→22:06)
[2021-03-16] MEDS: AMIODARONE 200 MG TAB (PACERONE) PO SCH (10:50)
[2021-03-16] MEDS: PANTOPRAZOLE 40MG TAB (PROTONIX) PO SCH (10:50)
[2021-03-16] MEDS: SERTRALINE 100 MG TAB PO SCH (10:50)
[2021-03-16] MEDS: clonazePAM 0.5 MG TAB PO PRN ×2 (10:51→22:04)
[2021-03-16] MEDS: MIDODRINE 5 MG TAB PO SCH ×3 (10:54→15:00)
[2021-03-16 12:00] VITALS: BP 160/77
--- NOTE | 2021-03-16 13:03 | IPNPDOC ---
Date Seen The patient was seen on 03/16/21. Progress Note SUBJECTIVE: Eating regular diet currently, discussed with nephrology. BS 90's, no hypoglycemic episodes. Has no new complaints, no abd pain. Denies chest pain, fevers, chills, n/v/d. OBJECTIVE: PHYSICAL EXAMINATION: Vital Signs: Please see below General: NAD resting in bed, communicating well, Ox3 HEENT: AT/NC, no lymphadenopathy NECK: No JVD, trach in place Lungs: Diminished but clear to auscultation. No wheezing, rales, or rhonchi. Heart: S1, S2, irregularly irregular. Abdomen: Obese, soft, nontender, nondistended. Positive bowel sounds. Extremities: Has chronic atrophy and chronic edema, fistula Neuro: No focal deficits Psych: flat affect LABORATORY DATA: Please see below MICRO: BCx x 2 sets 03/06/21: E. coli Repeat BCx x 2 sets 03/08/21: NG Sputum Cx: pseudomonas, cornyebacterium IMAGING: CXR 03/11/21: Endotracheal tube remains in good position. Left internal jugular central venous line terminates in the expected location of the brachiocephalic vein in its junction with the SVC. The heart is quite enlarged. Patient is rotated somewhat to the right. Pulmonary vasculature is cephalized and congested similar to the 06 mar 2021 study. No acute infiltrate is seen. Pleural angles are sharp. ASSESSMENT: 50-year-old male with morbid obesity, hypoventilation syndrome, obstructive sleep apnea(NISA) with malclearance of secretions, chronic hypoxic respiratory failure requiring tracheostomy placement (recently changed 03/03/[address] Ortega ), ESRD on dialysis via AV fistula, hyperlipidemia, history of Pseudomonas and Methicillin-resistant staph aureus (MRSA) in the sputum with prolonged hospitalization currently being treated as inpatient for E. coli bacteremia, resolved sepsis. PLAN: Hypoglycemia likely 2/2 to decreased PO intake from abdominal pain/discomfort- resolved -No longer having abdominal discomfort, liberalized diet -BS 90's, no hypoglycemia in several days -FS BID Acute on chronic hypoxic and hypercapnic respiratory failure 2/2 to restrictive lung disease from obesity, mucus plugging -Saturating well on normal amount of O2 -Recently changed tracheostomy tube on 03/03/21 -C/w albuterol ATC And PRN, pulmicort, hypertonic saline treatments (new addition to regimen this past week- helping) -Placement is unknown at this time due to patient needing frequent suctioning E. coli bacteremia 2/2 to unknown source (poss GI, cholangitis) - resolved sepsis/septic shock -WBC wnl, afebrile, repeat BCX neg (see above under Micro) -UA not obtained -CT chest, abdomen and pelvis showed possible common bile duct (CBD) dilation but ultrasound of the liver was unremarkable with no gallstones or signs of cholangitis. -AST/ALT wnl -Remains on meropenem IV, stop date 03/17/21 (total of 10 day tx) Abdominal pain possibly 2/2 to resolved/resolving cholangitis vs. other GI abnormality (gastroparesis, etc) -Bili continues to trend down at 1.3, AST/ALT improved, alk phos remains elevated, afebrile, WBC wnl -Unable to do Upper GI series and MRCP as suggested by surgery due to patient's size, other limitations discussed above -If worsens again, consider GI consult when next available. 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 -C/w HD, midodrine. DVT px -Eliquis BID Resolved issues: Sepsis 2/2 to E. coli bacteremia Abnormal liver function tests DISPOSITION: Switched to ALC status today. Nephrology following closely. Pending placement. VS, I&O, 24H, Fishbone Vital Signs/I&O Vital Signs Date Time Temp Pulse Resp B/P (MAP) Pulse Ox O2 Delivery O2 Flow Rate FiO2 03/16/21 10:00 97 171/78 (109) 03/16/21 06:00 97.4 18 93 Trach Collar 5.0 28 I&O- Last 24 Hours up to 6 AM 03/16/21 06:00 Intake Total 1600 ml Output Total 3000 ml Balance -1400 ml Laboratory Data 24H LABS Laboratory Tests 2 03/15/21 18:37: Bedside Glucose (Misc Panel) 90 03/16/21 06:25: Bedside Glucose (Misc Panel) 96 03/16/21 08:12: Nucleated Red Blood Cells % (auto) 0.4H, Anion Gap 10, Glomerular Filtration Rate 10.9L, Calcium Level 8.6, Total Bilirubin 1.3H, Aspartate Amino Transf (AST/SGOT) 23, Alanine Aminotransferase (ALT/SGPT) 10L, Alkaline Phosphatase 200H, Total Protein 6.4, Albumin 2.1L, Albumin/Globulin Ratio 0.5 CBC/BMP Laboratory Tests 03/16/21 08:12 Microbiology Microbiology 03/08/21 Blood Culture - Final, Complete NO GROWTH AFTER 5 DAYS 03/08/21 Blood Culture - Final, Complete NO GROWTH AFTER 5 DAYS 03/06/21 Gram Stain - Final, Complete 03/06/21 Sputum Culture - Final, Complete Pseudomonas Aeruginosa Corynebacterium Species 03/06/21 Blood Culture - Final, Complete Escherichia Coli 03/06/21 Blood Culture - Final, Complete Escherichia Coli Claudette Padron MD March 16, 2021 13:03
[2021-03-16 14:00] VITALS: BP 157/76
[2021-03-16] MEDS: MEROPENEM INJ 1 GM in IV 1 EA IV SCH (17:36)
[2021-03-16] MEDS: PRAMIPEXOLE (MIRAPEX) 0.125 MG TAB PO SCH (22:04)
[2021-03-16] MEDS: ACETAMINOPHEN TAB 650MG DOSE (2X325MG) PO PRN (22:05)
[2021-03-16] MEDS: oxyCODONE 5MG TAB PO PRN (22:05)
[2021-03-17] MEDS: SODIUM CHLORIDE HYPERTONIC 3% 15ML NEB SOL INH SCH ×6 (03:59→23:08)
[2021-03-17] MEDS: ALBUTEROL SULFATE 2.5 MG/0.5 ML INH NEB SOLN NEB PRN ×2 (03:59→23:07)
[2021-03-17] MEDS: SODIUM CHLORIDE 0.9% INJ 10 ML SYR IV SCH ×3 (04:41→22:00)
[2021-03-17 06:00] VITALS: BP 121/41
[2021-03-17 06:33] LABS: HEMOGLOBIN 9.6 g/dl (13.5-17.5); MEAN CORPUSCULAR HEMOGLOBIN 26.4 pg (27.0-33.0); MEAN CORPUSCULAR HGB CONC 28.2 g/dl (32.0-36.5); MEAN CORPUSCULAR VOLUME 93.4 fl (80.0-96.0); PLATELET COUNT, AUTOMATED 169 10^3/uL (150-450); RED BLOOD COUNT 3.64 10^6/uL (4.30-6.10); WHITE BLOOD COUNT 8.2 10^3/uL (4.0-10.0)
[2021-03-17 07:05] LABS: ALBUMIN 2.2 GM/DL (3.2-5.2); BILIRUBIN,TOTAL 1.2 MG/DL (0.2-1.0); CALCIUM LEVEL 8.1 MG/DL (8.5-10.1); CREATININE FOR GFR 6.71 MG/DL (0.70-1.30); GLOMERULAR FILTRATION RATE 9.4 (>60); POTASSIUM SERUM 4.5 MEQ/L (3.5-5.1); TOTAL PROTEIN 6.1 GM/DL (6.4-8.2)
[2021-03-17] MEDS: BUDESONIDE 0.5 MG/2 ML INHALATION SUSPENSION INH SCH ×2 (07:16→19:56)
[2021-03-17] MEDS: FORMOTEROL FUMARATE 20 MCG/2 ML INHALATION SOLUTION (PERFOROMIST) INH SCH ×2 (07:16→19:56)
[2021-03-17] MEDS: ALBUTEROL SULFATE 2.5 MG/0.5 ML INH NEB SOLN NEB SCH ×4 (07:16→19:56)
[2021-03-17] MEDS: SUCRALFATE SUSP 1GM/10ML UD PO SCH ×4 (07:30→23:31)
[2021-03-17] MEDS: SERTRALINE 100 MG TAB PO SCH (07:58)
[2021-03-17] MEDS: levETIRAcetam 250MG TABLET (KEPPRA) PO SCH (07:58)
[2021-03-17] MEDS: APIXABAN 2.5 MG TAB (ELIQUIS) PO SCH ×2 (07:58→23:31)
[2021-03-17] MEDS: AMIODARONE 200 MG TAB (PACERONE) PO SCH (07:58)
[2021-03-17] MEDS: PANTOPRAZOLE 40MG TAB (PROTONIX) PO SCH (07:58)
[2021-03-17] MEDS: MIDODRINE 5 MG TAB PO SCH ×3 (07:59→15:10)
[2021-03-17] MEDS: (RENVELA) SEVELAMER **CARBONate** 800 MG TAB PO SCH ×3 (07:59→17:54)
[2021-03-17] MEDS: VITAMIN D 1,000 INTERNATIONAL UNITS TABLET PO SCH (07:59)
[2021-03-17] MEDS: CALCITRIOL 0.25 MCG CAP (S0169) PO SCH (07:59)
[2021-03-17] MEDS: NYSTATIN 100,000 UNITS/GM TOPICAL PWD 15 GM TOP SCH ×2 (08:00→23:32)
[2021-03-17] MEDS: DIMETHICONE 2% OINTMENT(VANICREAM) 70GM TUBE TOP SCH ×2 (08:00→23:32)
[2021-03-17] MEDS: oxyCODONE 5MG TAB PO PRN ×2 (08:11→23:31)
[2021-03-17] MEDS: clonazePAM 0.5 MG TAB PO PRN ×2 (08:11→23:31)
[2021-03-17] MEDS: MEROPENEM INJ 1 GM in IV 1 EA IV SCH (17:54)
[2021-03-17] MEDS: PRAMIPEXOLE (MIRAPEX) 0.125 MG TAB PO SCH (23:31)
[2021-03-18] MEDS: SODIUM CHLORIDE HYPERTONIC 3% 15ML NEB SOL INH SCH ×6 (03:05→23:11)
[2021-03-18] MEDS: ALBUTEROL SULFATE 2.5 MG/0.5 ML INH NEB SOLN NEB PRN ×2 (03:05→23:12)
[2021-03-18 06:00] VITALS: BP 148/63
[2021-03-18] MEDS: PANTOPRAZOLE 40MG TAB (PROTONIX) PO SCH (06:05)
[2021-03-18] MEDS: levETIRAcetam 250MG TABLET (KEPPRA) PO SCH (06:05)
[2021-03-18] MEDS: SODIUM CHLORIDE 0.9% INJ 10 ML SYR IV SCH ×3 (06:05→20:26)
[2021-03-18] MEDS: APIXABAN 2.5 MG TAB (ELIQUIS) PO SCH ×2 (06:06→20:26)
[2021-03-18] MEDS: VITAMIN D 1,000 INTERNATIONAL UNITS TABLET PO SCH (06:06)
[2021-03-18] MEDS: SERTRALINE 100 MG TAB PO SCH (06:06)
[2021-03-18] MEDS: CALCITRIOL 0.25 MCG CAP (S0169) PO SCH (06:06)
[2021-03-18] MEDS: AMIODARONE 200 MG TAB (PACERONE) PO SCH (06:06)
[2021-03-18] MEDS: FORMOTEROL FUMARATE 20 MCG/2 ML INHALATION SOLUTION (PERFOROMIST) INH SCH ×2 (07:25→19:43)
[2021-03-18] MEDS: ALBUTEROL SULFATE 2.5 MG/0.5 ML INH NEB SOLN NEB SCH ×4 (07:25→19:44)
[2021-03-18] MEDS: BUDESONIDE 0.5 MG/2 ML INHALATION SUSPENSION INH SCH ×2 (07:25→19:43)
[2021-03-18] MEDS: SUCRALFATE SUSP 1GM/10ML UD PO SCH ×4 (07:30→20:26)
[2021-03-18] MEDS: MIDODRINE 5 MG TAB PO SCH ×3 (07:39→16:00)
--- NOTE | 2021-03-18 07:44 | IPN ---
PROGRESS NOTE DATE: 03/17/2021 SUBJECTIVE: Mr. Richard seems to be doing well. He is eating well. His appetite is good. He denies any complaint. He has no nausea, vomiting, fever or chills. He is currently day #11 on Meropenem, finishing treatment today. OBJECTIVE: Heart normal S1, S2, irregular, no murmurs appreciated. Lungs anteriorly clear, diminished at the bases but no wheezes, rhonchi or rales. Abdomen is soft, markedly obese, and nontender. Bowel sounds normal. Extremities: No cyanosis, clubbing or edema. Vital signs: Temperature 96.7, pulse 92, respirations 18, blood pressure 120/41, O2 sat 96% on FiO2 of 28%. He has been afebrile for the past 10 days. LABS: Sodium 133, potassium 4.5, chloride 100, bicarb 22, BUN 54, creatinine 6.7, glucose 88, calcium 8.1, bilirubin 1.2, AST 20, ALT 9, alk phos 215. White count 8.2, hemoglobin 9.6, hematocrit 34, platelets 169. ASSESSMENT: 1. E. coli septic shock resolved. The patient has received 11 days of IV Meropenem, most likely was of biliary origin. Hyperbilirubinemia has markedly improved, bilirubin currently at 1.2. Will continue to monitor abdominal pain and if recurrent episode patient may need further workup of common bile duct enlargement and acute cholangitis that triggered this episode with ERCP 2. Pseudomonas colonization of his sputum. The patient had questionable pneumonia but I suspect this was more of a colonization of his sputum, he did not have increased cough or increased FiO2 requirement. PLAN: 1. Discontinue Meropenem today. 2. Continue to monitor CBC and liver profile. [facility]
[2021-03-18] MEDS: (RENVELA) SEVELAMER **CARBONate** 800 MG TAB PO SCH ×4 (08:00→18:14)
[2021-03-18] MEDS ORDERED: SODIUM CHLORIDE 0.9% 1000ML IV PRN (08:05)
[2021-03-18] MEDS ORDERED: LIDOCAINE 1% SDV 5ML VIAL SC PRN (08:05)
[2021-03-18] MEDS: DIMETHICONE 2% OINTMENT(VANICREAM) 70GM TUBE TOP SCH ×2 (09:00→20:27)
[2021-03-18] MEDS: NYSTATIN 100,000 UNITS/GM TOPICAL PWD 15 GM TOP SCH ×2 (09:00→20:27)
[2021-03-18 09:48] LABS: HEMATOCRIT 34.6 % (42.0-52.0); HEMOGLOBIN 9.7 g/dl (13.5-17.5); MEAN CORPUSCULAR HEMOGLOBIN 26.2 pg (27.0-33.0); MEAN CORPUSCULAR VOLUME 93.5 fl (80.0-96.0); PLATELET COUNT, AUTOMATED 161 10^3/uL (150-450); WHITE BLOOD COUNT 8.8 10^3/uL (4.0-10.0)
[2021-03-18 10:14] LABS: ALBUMIN 2.2 GM/DL (3.2-5.2); BILIRUBIN,TOTAL 1.1 MG/DL (0.2-1.0); CALCIUM LEVEL 8.2 MG/DL (8.5-10.1); CREATININE FOR GFR 7.76 MG/DL (0.70-1.30); POTASSIUM SERUM 4.8 MEQ/L (3.5-5.1)
[2021-03-18 11:03] VITALS: BP 119/65
[2021-03-18 12:55] LABS: PERCENT SATURATION 19.4 % (19.7-50.0)
--- NOTE | 2021-03-18 13:00 | IPN ---
PROGRESS NOTE DATE: 03/18/2021 SUBJECTIVE: Matthew is seen and examined this morning in the hemodialysis unit receiving his maintenance treatment. His goal fluid removal needed to be decreased because of hypotension of hemodialysis. He did not receive his morning dose of Midodrine prior to dialysis today. PHYSICAL EXAMINATION: VITAL SIGNS: Temperature 98.1, pulse 100, respiratory rate 20, blood pressure 148/63, saturating 94% on trach collar. INTAKE/OUTPUT: Intake yesterday was 1160. Weight in the bed scale is not recorded. GENERAL: Patient is seen lying flat in bed, awake, alert, comfortable, in no distress. HEENT: Extraocular muscles are intact. Tongue is moist. Trach collar is in place. HEART: Sounds are regular, S1, S2. There is 1+ peripheral and dependent edema noted. LUNGS: Symmetric air entry. Anterior auscultation only, without crackle or rale. ABDOMEN: Soft, obese and nontender. EXTREMITIES: Show feet in Waffle boots with at most 1+ dependent edema. There is a fistula in the right arm, which is patent and in use. NEUROLOGIC: He is at baseline mentation and moves upper extremities on command. He attempts to communicate by mouthing mouths. LABORATORY DATA: White count 8.8, hemoglobin 9.7, platelets 161,000. Sodium 135, potassium 4.8. Albumin 2.2. INPATIENT MEDICATIONS: Reviewed by myself and I note that his Meropenem was discontinued. The remainder of his medications are unchanged from prior. Nursing staff held the morning dose of Midodrine today. PROBLEMS: 1. End-stage renal disease on hemodialysis on a Wednesday, , Wednesday schedule: Patient is dialyzed today. We had to reduce the goal fluid removal because of hypotension of hemodialysis. He needs to receive Midodrine pre-dialysis, unfortunately the dose was held this morning, but then was given while he was in the middle of his dialysis treatment. His electrolytes and volume status are acceptable. 2. Anemia of end-stage renal disease: Hemoglobin is 9.7 on the latest labs and he continues on Aranesp with dialysis. He has not had iron stores checked in the past four months, and I am going to repeat iron levels. 3. Hypotension of hemodialysis: It is a chronic condition and orders are written for Midodrine and his pre-dialysis Midodrine dose should not be held. 4. Recent E. coli bacteremia and respiratory colonization with pseudomonas and recently status post septic shock: I note infectious disease has stopped his Meropenem. The patient received about 10-11 days of I.V. antibiotics. He remains afebrile without leukocytosis. 5. Secondary hyperparathyroidism of renal origin: Patient is noncompliant with phosphorus binders and he does not follow a renal diet. He continues on Renvela when he is agreeable to take it along with Calcitriol. His parathyroid hormone level was at goal for the month of February.
[2021-03-18] MEDS: oxyCODONE 5MG TAB PO PRN (20:26)
[2021-03-18] MEDS: clonazePAM 0.5 MG TAB PO PRN (20:26)
[2021-03-18] MEDS: PRAMIPEXOLE (MIRAPEX) 0.125 MG TAB PO SCH (20:26)
[2021-03-19] MEDS: ALBUTEROL SULFATE 2.5 MG/0.5 ML INH NEB SOLN NEB PRN ×2 (03:09→23:20)
[2021-03-19] MEDS: SODIUM CHLORIDE HYPERTONIC 3% 15ML NEB SOL INH SCH ×6 (03:09→23:20)
[2021-03-19 06:00] VITALS: BP 143/62
[2021-03-19] MEDS: SUCRALFATE SUSP 1GM/10ML UD PO SCH ×4 (07:30→22:17)
[2021-03-19] MEDS: (RENVELA) SEVELAMER **CARBONate** 800 MG TAB PO SCH ×3 (08:00→18:40)
[2021-03-19] MEDS: ALBUTEROL SULFATE 2.5 MG/0.5 ML INH NEB SOLN NEB SCH ×4 (08:00→20:47)
[2021-03-19] MEDS: MIDODRINE 5 MG TAB PO SCH ×3 (08:00→16:00)
[2021-03-19] MEDS: FORMOTEROL FUMARATE 20 MCG/2 ML INHALATION SOLUTION (PERFOROMIST) INH SCH ×2 (08:03→20:47)
[2021-03-19] MEDS: BUDESONIDE 0.5 MG/2 ML INHALATION SUSPENSION INH SCH ×2 (08:04→20:47)
[2021-03-19] MEDS: PANTOPRAZOLE 40MG TAB (PROTONIX) PO SCH (09:52)
[2021-03-19] MEDS: CALCITRIOL 0.25 MCG CAP (S0169) PO SCH (09:52)
[2021-03-19] MEDS: APIXABAN 2.5 MG TAB (ELIQUIS) PO SCH ×2 (09:53→22:17)
[2021-03-19] MEDS: VITAMIN D 1,000 INTERNATIONAL UNITS TABLET PO SCH (09:53)
[2021-03-19] MEDS: levETIRAcetam 250MG TABLET (KEPPRA) PO SCH (09:53)
[2021-03-19] MEDS: AMIODARONE 200 MG TAB (PACERONE) PO SCH (09:53)
[2021-03-19] MEDS: SERTRALINE 100 MG TAB PO SCH (09:53)
[2021-03-19] MEDS: DIMETHICONE 2% OINTMENT(VANICREAM) 70GM TUBE TOP SCH ×2 (09:54→22:18)
[2021-03-19] MEDS: NYSTATIN 100,000 UNITS/GM TOPICAL PWD 15 GM TOP SCH ×2 (09:55→22:18)
[2021-03-19 12:00] VITALS: BP 136/68
[2021-03-19] MEDS: PRAMIPEXOLE (MIRAPEX) 0.125 MG TAB PO SCH (22:17)
[2021-03-20] MEDS: ALBUTEROL SULFATE 2.5 MG/0.5 ML INH NEB SOLN NEB PRN ×2 (02:57→23:41)
[2021-03-20] MEDS: SODIUM CHLORIDE HYPERTONIC 3% 15ML NEB SOL INH SCH ×4 (02:57→23:40)
[2021-03-20 06:00] VITALS: BP 154/62
[2021-03-20] MEDS: ALBUTEROL SULFATE 2.5 MG/0.5 ML INH NEB SOLN NEB SCH ×5 (06:21→18:17)
[2021-03-20] MEDS: FORMOTEROL FUMARATE 20 MCG/2 ML INHALATION SOLUTION (PERFOROMIST) INH SCH ×2 (06:21→18:20)
[2021-03-20] MEDS: BUDESONIDE 0.5 MG/2 ML INHALATION SUSPENSION INH SCH ×2 (06:22→18:21)
[2021-03-20] MEDS: SUCRALFATE SUSP 1GM/10ML UD PO SCH ×4 (07:30→21:00)
[2021-03-20] MEDS: MIDODRINE 5 MG TAB PO SCH ×3 (08:00→17:18)
[2021-03-20] MEDS: (RENVELA) SEVELAMER **CARBONate** 800 MG TAB PO SCH ×3 (08:00→17:20)
[2021-03-20] MEDS: IRON SUCROSE 100MG 5ML VIAL (J1756 PER 1MG) IV SCH (09:07)
[2021-03-20] MEDS ORDERED: LIDOCAINE 1% SDV 5ML VIAL SC PRN (10:30)
[2021-03-20] MEDS ORDERED: SODIUM CHLORIDE 0.9% 1000ML IV PRN (10:30)
[2021-03-20 11:45] VITALS: BP 157/70
[2021-03-20] MEDS: AMIODARONE 200 MG TAB (PACERONE) PO SCH (11:55)
[2021-03-20] MEDS: PANTOPRAZOLE 40MG TAB (PROTONIX) PO SCH (11:55)
[2021-03-20] MEDS: CALCITRIOL 0.25 MCG CAP (S0169) PO SCH (11:55)
[2021-03-20] MEDS: APIXABAN 2.5 MG TAB (ELIQUIS) PO SCH ×2 (11:55→21:36)
[2021-03-20] MEDS: levETIRAcetam 250MG TABLET (KEPPRA) PO SCH (11:55)
[2021-03-20] MEDS: SERTRALINE 100 MG TAB PO SCH (11:56)
[2021-03-20] MEDS: VITAMIN D 1,000 INTERNATIONAL UNITS TABLET PO SCH (11:56)
[2021-03-20] MEDS: NYSTATIN 100,000 UNITS/GM TOPICAL PWD 15 GM TOP SCH ×2 (11:56→21:37)
[2021-03-20] MEDS: DIMETHICONE 2% OINTMENT(VANICREAM) 70GM TUBE TOP SCH ×2 (11:56→21:36)
--- NOTE | 2021-03-20 16:47 | IPN ---
PROGRESS NOTE DATE: 03/20/2021 SUBJECTIVE: Matthew is seen and examined this morning at the bedside in the hemodialysis unit receiving his treatment. He complains of feeling nauseous and wants to get off of dialysis a half-hour early. He otherwise denies any complaint. No vomiting, no diarrhea, no shortness of breath. No trouble with his tracheostomy. No increased secretions reported. OBJECTIVE: VITAL SIGNS: Temperature 97.7, pulse 82, respiratory rate 18, blood pressure 154/62, saturating 98% on room air. INTAKE AND OUTPUT: Intake yesterday was recorded as 1.1 liters. Dialysis today removed 2 liters. Weight on the bed scale today is not recorded. GENERAL: The patient is seen awake, alert, oriented, and comfortable lying flat in bed receiving his hemodialysis treatment. Morbidly obese male. HEENT: Extraocular muscles are intact. Tongue is moist. There is a tracheostomy in place. HEART: Sounds are regular. S1, S2. LUNGS: Anterior auscultation only. Symmetric air movement. No crackles or rale. ABDOMEN: Obese, soft, and nontender. EXTREMITIES: His feet are in waffle boots. There is at the moist 1+ dependent edema. There is a fistula in the right arm, which is patent and in use. NEUROLOGIC: He is at his baseline mentation. Attempts to communicate by mouthing words. LABORATORY DATA: Laboratory studies show no new labs for today. INPATIENT MEDICATIONS: Reviewed by myself. I started him on Venofer with dialysis. The remainder of his medications are unchanged as compared to prior days. PROBLEMS: 1. End-stage renal disease on hemodialysis on a Wednesday, , and Wednesday scheduled. The patient is dialyzed today and only 2 liters were removed because he wanted to stop his dialysis treatment early because of a complaint of nausea. His next dialysis will be on Wednesday with goal fluid removal of 3 liters. He continues on midodrine predialysis because of hypotension of hemodialysis. His volume status is acceptable and his electrolytes are intermittently checked. 2. Anemia of end-stage renal disease. Hemoglobin is slightly suboptimal at 9.7 on the latest labs. He is on Aranesp with dialysis. His iron studies show transferrin saturation of 19% with a low iron level and he is now receiving Venofer with dialysis. 3. Hypotension with hypotension of hemodialysis. He continues on midodrine with holding parameters. 4. Secondary hyperparathyroidism of renal origin. His parathyroid hormone level for the month of February was at goal and he continues on Calcitriol and on Renvela binder. He is poorly compliant with renal diet.
[2021-03-20 17:16] VITALS: BP 155/73
[2021-03-20] MEDS: clonazePAM 0.5 MG TAB PO PRN (21:36)
[2021-03-20] MEDS: PRAMIPEXOLE (MIRAPEX) 0.125 MG TAB PO SCH (21:36)
[2021-03-21] MEDS: SODIUM CHLORIDE HYPERTONIC 3% 15ML NEB SOL INH SCH ×5 (04:12→20:00)
[2021-03-21] MEDS: ALBUTEROL SULFATE 2.5 MG/0.5 ML INH NEB SOLN NEB PRN (04:13)
[2021-03-21 06:00] VITALS: BP 123/59
[2021-03-21] MEDS: BUDESONIDE 0.5 MG/2 ML INHALATION SUSPENSION INH SCH ×2 (07:32→21:03)
[2021-03-21] MEDS: FORMOTEROL FUMARATE 20 MCG/2 ML INHALATION SOLUTION (PERFOROMIST) INH SCH ×2 (07:32→21:02)
[2021-03-21] MEDS: ALBUTEROL SULFATE 2.5 MG/0.5 ML INH NEB SOLN NEB SCH ×4 (07:32→21:03)
[2021-03-21] MEDS: AMIODARONE 200 MG TAB (PACERONE) PO SCH (08:41)
[2021-03-21] MEDS: MIDODRINE 5 MG TAB PO SCH ×3 (08:41→16:00)
[2021-03-21] MEDS: SUCRALFATE SUSP 1GM/10ML UD PO SCH ×4 (08:41→20:33)
[2021-03-21] MEDS: VITAMIN D 1,000 INTERNATIONAL UNITS TABLET PO SCH (08:42)
[2021-03-21] MEDS: CALCITRIOL 0.25 MCG CAP (S0169) PO SCH (08:42)
[2021-03-21] MEDS: SERTRALINE 100 MG TAB PO SCH (08:43)
[2021-03-21] MEDS: APIXABAN 2.5 MG TAB (ELIQUIS) PO SCH ×2 (08:43→20:32)
[2021-03-21] MEDS: levETIRAcetam 250MG TABLET (KEPPRA) PO SCH (08:44)
[2021-03-21] MEDS: (RENVELA) SEVELAMER **CARBONate** 800 MG TAB PO SCH ×3 (08:44→17:22)
[2021-03-21] MEDS: NYSTATIN 100,000 UNITS/GM TOPICAL PWD 15 GM TOP SCH ×2 (08:45→20:32)
[2021-03-21] MEDS: PANTOPRAZOLE 40MG TAB (PROTONIX) PO SCH (08:46)
[2021-03-21] MEDS: DIMETHICONE 2% OINTMENT(VANICREAM) 70GM TUBE TOP SCH ×2 (08:46→20:32)
[2021-03-21] MEDS: ACETAMINOPHEN TAB 650MG DOSE (2X325MG) PO PRN (20:32)
[2021-03-21] MEDS: clonazePAM 0.5 MG TAB PO PRN (20:32)
[2021-03-21] MEDS: PRAMIPEXOLE (MIRAPEX) 0.125 MG TAB PO SCH (20:32)
[2021-03-21] MEDS: oxyCODONE 5MG TAB PO PRN (20:33)
[2021-03-21 21:03] VITALS: O2SAT 97
[2021-03-22] MEDS: ALBUTEROL SULFATE 2.5 MG/0.5 ML INH NEB SOLN NEB PRN ×3 (00:13→14:42)
[2021-03-22] MEDS: SODIUM CHLORIDE HYPERTONIC 3% 15ML NEB SOL INH SCH ×6 (00:13→19:37)
[2021-03-22 06:00] VITALS: BP 121/55
[2021-03-22] MEDS: VITAMIN D 1,000 INTERNATIONAL UNITS TABLET PO SCH (06:14)
[2021-03-22] MEDS: PANTOPRAZOLE 40MG TAB (PROTONIX) PO SCH (06:14)
[2021-03-22] MEDS: (RENVELA) SEVELAMER **CARBONate** 800 MG TAB PO SCH ×3 (06:14→17:22)
[2021-03-22] MEDS: APIXABAN 2.5 MG TAB (ELIQUIS) PO SCH ×2 (06:14→21:06)
[2021-03-22] MEDS: levETIRAcetam 250MG TABLET (KEPPRA) PO SCH (06:15)
[2021-03-22] MEDS: MIDODRINE 5 MG TAB PO SCH ×3 (06:15→17:22)
[2021-03-22] MEDS: SUCRALFATE SUSP 1GM/10ML UD PO SCH ×4 (06:16→21:00)
[2021-03-22] MEDS: SERTRALINE 100 MG TAB PO SCH (06:16)
[2021-03-22] MEDS: AMIODARONE 200 MG TAB (PACERONE) PO SCH (06:16)
[2021-03-22] MEDS: NYSTATIN 100,000 UNITS/GM TOPICAL PWD 15 GM TOP SCH ×2 (07:36→21:00)
[2021-03-22] MEDS: ALBUTEROL SULFATE 2.5 MG/0.5 ML INH NEB SOLN NEB SCH ×5 (07:51→19:37)
[2021-03-22] MEDS: FORMOTEROL FUMARATE 20 MCG/2 ML INHALATION SOLUTION (PERFOROMIST) INH SCH ×2 (07:51→19:37)
[2021-03-22] MEDS: BUDESONIDE 0.5 MG/2 ML INHALATION SUSPENSION INH SCH ×2 (07:51→19:37)
[2021-03-22] MEDS: DIMETHICONE 2% OINTMENT(VANICREAM) 70GM TUBE TOP SCH ×2 (08:05→21:08)
[2021-03-22] MEDS: DARBEPOETIN 200MCG/0.4ML *DIALYSIS* SYRINGE (J0882 PER 1MCG) IV SCH (08:56)
[2021-03-22 09:18] LABS: HEMATOCRIT 32.9 % (42.0-52.0); HEMOGLOBIN 9.2 g/dl (13.5-17.5); MEAN CORPUSCULAR HEMOGLOBIN 26.4 pg (27.0-33.0); MEAN CORPUSCULAR VOLUME 94.3 fl (80.0-96.0); PLATELET COUNT, AUTOMATED 141 10^3/uL (150-450); RED BLOOD COUNT 3.49 10^6/uL (4.30-6.10); WHITE BLOOD COUNT 7.2 10^3/uL (4.0-10.0)
[2021-03-22] MEDS: IRON SUCROSE 100MG 5ML VIAL (J1756 PER 1MG) IV SCH (09:28)
[2021-03-22 09:51] LABS: ALBUMIN 2.3 GM/DL (3.2-5.2); CALCIUM LEVEL 8.1 MG/DL (8.5-10.1); CREATININE FOR GFR 8.12 MG/DL (0.70-1.30); GLOMERULAR FILTRATION RATE 7.6 (>60); POTASSIUM SERUM 4.9 MEQ/L (3.5-5.1)
--- NOTE | 2021-03-22 17:40 | IPN ---
PROGRESS NOTE DATE: 03/22/2021 Mr. Richard is seen this morning during hemodialysis. Nursing staff reports that he required suctioning earlier, and his nurse came down from the floor to suction him. Respiratory therapist was called; however, he could not come right away but did come later on. Patient also has been asking for bronchodilator treatment, and nursing staff is currently waiting for the respiratory therapist to come back and give him nebulizer treatment. In the meantime, since suctioning his respiratory status has improved. He did develop low blood pressure when he had difficulty breathing, which has also now improved. PHYSICAL EXAMINATION: Temperature 97.4 degrees Fahrenheit, heart rate 74 per minute, respiratory rate 20 per minute, blood pressure 110/50 mmHg, and oxygen saturation 97% on trach collar with 5% oxygen. Head is atraumatic. Tracheostomy is in place, and neck veins are impossible to be assessed. Heart sounds are regular and somewhat distant. Abdomen obese, soft, and nontender. Bowel sounds are present. Extremities without any cyanosis or clubbing. Right arteriovenous (AV) fistula is currently being used for dialysis. He has some swelling on his feet and thighs. Neurologically he is responsive and able to nod his head to questions. We alfredo labs this morning, and WBC count was 7.2, hemoglobin 9.2, and hematocrit 32.9. Platelets 141. Sodium 137, potassium 4.9, CO2 of 21, BUN 66, and creatinine 8.12. Calcium 8.1 and phosphorus 7.0. PROBLEMS: 1. End-stage renal disease. Patient is being dialyzed, and he is tolerating his dialysis reasonably well with some hypotension earlier when he had respiratory problem. 2. Respiratory failure. Patient has chronic tracheostomy and requires frequent suctioning. We tried to remove about 3.5 liters fluid; however, he developed hypotension due to which fluid removal was cute down, and a total of 2.8 liters was removed today. 3. Hypotension. This is a chronic issue, and patient requires midodrine before each dialysis. We will continue with midodrine three times a day. 4. Anemia. At present his anemia is stable, and we will continue with weekly dose of Aranesp. 5. Atrial fibrillation. Patient remains on amiodarone 200 mg daily and Eliquis 2.5 mg twice a day.
[2021-03-22 19:38] VITALS: O2SAT 95
[2021-03-22] MEDS: RAMELTEON 8 MG TAB (ROZEREM) PO SCH (21:06)
[2021-03-22] MEDS: clonazePAM 0.5 MG TAB PO PRN (21:06)
[2021-03-22] MEDS: PRAMIPEXOLE (MIRAPEX) 0.125 MG TAB PO SCH (21:06)
[2021-03-22] MEDS: ACETAMINOPHEN TAB 650MG DOSE (2X325MG) PO PRN (21:07)
[2021-03-22] MEDS: oxyCODONE 5MG TAB PO PRN (21:07)
[2021-03-23] MEDS: SODIUM CHLORIDE HYPERTONIC 3% 15ML NEB SOL INH SCH ×6 (00:10→20:18)
[2021-03-23] MEDS: ALBUTEROL SULFATE 2.5 MG/0.5 ML INH NEB SOLN NEB PRN ×2 (00:11→03:34)
[2021-03-23 06:00] VITALS: BP 101/54
[2021-03-23] MEDS: BUDESONIDE 0.5 MG/2 ML INHALATION SUSPENSION INH SCH ×2 (06:01→20:18)
[2021-03-23] MEDS: FORMOTEROL FUMARATE 20 MCG/2 ML INHALATION SOLUTION (PERFOROMIST) INH SCH ×2 (06:01→20:18)
[2021-03-23] MEDS: ALBUTEROL SULFATE 2.5 MG/0.5 ML INH NEB SOLN NEB SCH ×4 (06:01→20:18)
[2021-03-23] MEDS: SUCRALFATE SUSP 1GM/10ML UD PO SCH (07:30)
[2021-03-23] MEDS: MIDODRINE 5 MG TAB PO SCH ×3 (08:24→17:39)
[2021-03-23] MEDS: VITAMIN D 1,000 INTERNATIONAL UNITS TABLET PO SCH (08:24)
[2021-03-23] MEDS: clonazePAM 0.5 MG TAB PO PRN ×2 (08:24→20:09)
[2021-03-23] MEDS: PANTOPRAZOLE 40MG TAB (PROTONIX) PO SCH (08:24)
[2021-03-23] MEDS: SERTRALINE 100 MG TAB PO SCH (08:24)
[2021-03-23] MEDS: levETIRAcetam 250MG TABLET (KEPPRA) PO SCH (08:24)
[2021-03-23] MEDS: oxyCODONE 5MG TAB PO PRN ×2 (08:25→20:10)
[2021-03-23] MEDS: APIXABAN 2.5 MG TAB (ELIQUIS) PO SCH ×2 (08:25→20:09)
[2021-03-23] MEDS: (RENVELA) SEVELAMER **CARBONate** 800 MG TAB PO SCH ×3 (08:25→17:39)
[2021-03-23] MEDS: AMIODARONE 200 MG TAB (PACERONE) PO SCH (08:25)
[2021-03-23] MEDS: NYSTATIN 100,000 UNITS/GM TOPICAL PWD 15 GM TOP SCH ×2 (09:09→20:12)
[2021-03-23] MEDS: DIMETHICONE 2% OINTMENT(VANICREAM) 70GM TUBE TOP SCH ×2 (09:10→20:12)
--- NOTE | 2021-03-23 13:20 | IPNPDOC ---
Text Note Date of Service The patient was seen on 03/23/21. NOTE Subjective: No any acute events overnight. Patient denied fever, chills, chest pain, diarrhea or dysuria Objective: GENERAL APPEARANCE: Morbidly obese male HEENT: no scleral icterus, no JVD, EOMI, trach in place CARDIOVASCULAR: S1S2 LUNGS: Diminished lung sounds bilaterally ABDOMEN: soft & not tender w palpitation MUSCULOSKELETAL: no cyanosis, no swelling INTEGUMENT: no generalized pallor NEUROLOGICAL: cranial nerve function from 2-12 intact intact, follows commands, speech not dysarthric Assessment and plan : Patient is 50 years old male with end-stage renal diseases on dialysis, chronic hypoxic hypercapnic respiratory failure secondary to restrictive lung diseases. He recently had trach replaced on 01/01/2021. He is a hemodialysis patient, being following by nephrology. Currently pending placement Chronic hypoxic and hypercapnic respiratory failure/tracheostomy Secondary to restrictive lung disease from obesity and mucus plugging Continue albuterol, budesonide, formoterol fumarate, and Mucinex Morbid obesity BMI 42.5 Contributing to his restrictive lung disease and complicating care Severe spinal stenosis Continue pain regimen End-stage renal disease on hemodialysis Neurology team follows him Continue with dialysis GERD Continue PPI Depression/anxiety Continue sertraline and clonazepam Seizure disorder Continue Keppra Hypotension Continue medication on dialysis days Anemia Stable Receives Aranesp at dialysis Debility Chronically bedridden Pending placement at correction Incontinence-associated dermatitis -Wound care instructions in place. -Bilateral heel float boots, ABD pad under straps to protect skin on top of boot Diastolic Congestive heart failure. Volume status managed by dialysis Atrial fibrillation Patient on Eliquis 2.5 milligrams twice a day and amiodarone 200 mg daily VS,Fishbone, I+O VS, Fishbone, I+O Vital Signs Date Time Temp Pulse Resp B/P (MAP) Pulse Ox O2 Delivery O2 Flow Rate FiO2 03/23/21 09:00 5.0 28 03/23/21 08:55 16 03/23/21 06:02 Trach Collar 03/23/21 06:00 98.6 85 101/54 (54) 96 I&O- Last 24 Hours up to 6 AM 03/23/21 06:00 Intake Total 2010 ml Output Total 2801 ml Balance -791 ml SANTY DUGAN DO March 23, 2021 13:20
[2021-03-23] MEDS: PRAMIPEXOLE (MIRAPEX) 0.125 MG TAB PO SCH (20:09)
[2021-03-23] MEDS: RAMELTEON 8 MG TAB (ROZEREM) PO SCH (20:09)
[2021-03-23] MEDS: ACETAMINOPHEN TAB 650MG DOSE (2X325MG) PO PRN (20:11)
[2021-03-24] MEDS: ALBUTEROL SULFATE 2.5 MG/0.5 ML INH NEB SOLN NEB PRN ×2 (00:34→04:13)
[2021-03-24] MEDS: SODIUM CHLORIDE HYPERTONIC 3% 15ML NEB SOL INH SCH ×6 (00:34→21:11)
[2021-03-24 04:52] VITALS: BP 140/57
[2021-03-24] MEDS: FORMOTEROL FUMARATE 20 MCG/2 ML INHALATION SOLUTION (PERFOROMIST) INH SCH ×2 (07:41→21:12)
[2021-03-24] MEDS: ALBUTEROL SULFATE 2.5 MG/0.5 ML INH NEB SOLN NEB SCH ×4 (07:41→21:11)
[2021-03-24] MEDS: BUDESONIDE 0.5 MG/2 ML INHALATION SUSPENSION INH SCH ×2 (07:41→21:11)
[2021-03-24] MEDS: (RENVELA) SEVELAMER **CARBONate** 800 MG TAB PO SCH ×3 (08:00→17:15)
[2021-03-24] MEDS: VITAMIN D 1,000 INTERNATIONAL UNITS TABLET PO SCH (08:53)
[2021-03-24] MEDS: levETIRAcetam 250MG TABLET (KEPPRA) PO SCH (08:53)
[2021-03-24] MEDS: SERTRALINE 100 MG TAB PO SCH (08:53)
[2021-03-24] MEDS: clonazePAM 0.5 MG TAB PO PRN (08:53)
[2021-03-24] MEDS: AMIODARONE 200 MG TAB (PACERONE) PO SCH (08:53)
[2021-03-24] MEDS: PANTOPRAZOLE 40MG TAB (PROTONIX) PO SCH (08:53)
[2021-03-24] MEDS: CALCITRIOL 0.25 MCG CAP (S0169) PO SCH (08:53)
[2021-03-24] MEDS: APIXABAN 2.5 MG TAB (ELIQUIS) PO SCH ×2 (08:53→21:13)
[2021-03-24] MEDS: MIDODRINE 5 MG TAB PO SCH ×3 (08:53→17:14)
[2021-03-24] MEDS: oxyCODONE 5MG TAB PO PRN ×2 (08:54→21:14)
[2021-03-24] MEDS: NYSTATIN 100,000 UNITS/GM TOPICAL PWD 15 GM TOP SCH ×2 (08:56→21:00)
[2021-03-24] MEDS: DIMETHICONE 2% OINTMENT(VANICREAM) 70GM TUBE TOP SCH ×2 (08:56→21:16)
[2021-03-24 12:34] LABS: ALBUMIN 2.2 GM/DL (3.2-5.2); BILIRUBIN,TOTAL 0.8 MG/DL (0.2-1.0); CALCIUM LEVEL 8.8 MG/DL (8.5-10.1); CREATININE FOR GFR 7.83 MG/DL (0.70-1.30); GLOMERULAR FILTRATION RATE 7.9 (>60); MAGNESIUM LEVEL 2.3 MG/DL (1.8-2.4); POTASSIUM SERUM 5.5 MEQ/L (3.5-5.1); TOTAL PROTEIN 6.9 GM/DL (6.4-8.2)
[2021-03-24 13:09] LABS: BASO # 0.1 10^3/uL (0.0-0.2); EOS # 0.5 10^3/uL (0.0-0.5); EOS % 7.4 % (0.0-3.0); HEMATOCRIT 36.9 % (42.0-52.0); HEMOGLOBIN 10.4 g/dl (13.5-17.5); LYMPH # 1.7 10^3/uL (1.5-5.0); LYMPH % 23.7 % (24.0-44.0); MEAN CORPUSCULAR HEMOGLOBIN 26.6 pg (27.0-33.0); MEAN CORPUSCULAR HGB CONC 28.2 g/dl (32.0-36.5); MEAN CORPUSCULAR VOLUME 94.4 fl (80.0-96.0); MONO # 0.4 10^3/uL (0.0-0.8); MONO % 5.5 % (2.0-8.0); NEUTROPHILS # 4.3 10^3/uL (1.5-8.5); NEUTROPHILS % 61.3 % (36.0-66.0); PLATELET COUNT, AUTOMATED 134 10^3/uL (150-450); RED BLOOD COUNT 3.91 10^6/uL (4.30-6.10); WHITE BLOOD COUNT 7.1 10^3/uL (4.0-10.0)
[2021-03-24] MEDS: RAMELTEON 8 MG TAB (ROZEREM) PO SCH (21:14)
[2021-03-24] MEDS: PRAMIPEXOLE (MIRAPEX) 0.125 MG TAB PO SCH (21:14)
[2021-03-24] MEDS: ACETAMINOPHEN TAB 650MG DOSE (2X325MG) PO PRN (21:15)
[2021-03-25] MEDS: SODIUM CHLORIDE HYPERTONIC 3% 15ML NEB SOL INH SCH ×5 (00:19→19:50)
[2021-03-25] MEDS: ALBUTEROL SULFATE 2.5 MG/0.5 ML INH NEB SOLN NEB PRN ×2 (00:19→03:59)
[2021-03-25] MEDS: MIDODRINE 5 MG TAB PO SCH ×4 (05:06→17:58)
[2021-03-25] MEDS: APIXABAN 2.5 MG TAB (ELIQUIS) PO SCH ×2 (05:08→20:55)
[2021-03-25] MEDS: SERTRALINE 100 MG TAB PO SCH (05:08)
[2021-03-25] MEDS: VITAMIN D 1,000 INTERNATIONAL UNITS TABLET PO SCH (05:08)
[2021-03-25] MEDS: CALCITRIOL 0.25 MCG CAP (S0169) PO SCH (05:08)
[2021-03-25] MEDS: levETIRAcetam 250MG TABLET (KEPPRA) PO SCH (05:08)
[2021-03-25] MEDS: PANTOPRAZOLE 40MG TAB (PROTONIX) PO SCH (05:09)
[2021-03-25] MEDS: clonazePAM 0.5 MG TAB PO PRN ×2 (05:09→20:55)
[2021-03-25] MEDS: ACETAMINOPHEN TAB 650MG DOSE (2X325MG) PO PRN ×2 (05:09→20:55)
[2021-03-25] MEDS: AMIODARONE 200 MG TAB (PACERONE) PO SCH (05:09)
[2021-03-25] MEDS: oxyCODONE 5MG TAB PO PRN ×2 (05:10→20:56)
[2021-03-25 06:00] VITALS: BP 132/61
[2021-03-25] MEDS: (RENVELA) SEVELAMER **CARBONate** 800 MG TAB PO SCH ×3 (06:13→17:58)
[2021-03-25] MEDS: FORMOTEROL FUMARATE 20 MCG/2 ML INHALATION SOLUTION (PERFOROMIST) INH SCH ×2 (07:17→19:50)
[2021-03-25] MEDS: BUDESONIDE 0.5 MG/2 ML INHALATION SUSPENSION INH SCH ×2 (07:17→19:50)
[2021-03-25] MEDS: ALBUTEROL SULFATE 2.5 MG/0.5 ML INH NEB SOLN NEB SCH ×4 (07:17→19:51)
[2021-03-25] MEDS: DIMETHICONE 2% OINTMENT(VANICREAM) 70GM TUBE TOP SCH ×2 (08:10→20:54)
[2021-03-25 08:54] LABS: HEMATOCRIT 31.8 % (42.0-52.0); HEMOGLOBIN 9.1 g/dl (13.5-17.5); MEAN CORPUSCULAR HGB CONC 28.6 g/dl (32.0-36.5); MEAN CORPUSCULAR VOLUME 94.4 fl (80.0-96.0); PLATELET COUNT, AUTOMATED 140 10^3/uL (150-450); RED BLOOD COUNT 3.37 10^6/uL (4.30-6.10); WHITE BLOOD COUNT 7.9 10^3/uL (4.0-10.0)
[2021-03-25] MEDS: NYSTATIN 100,000 UNITS/GM TOPICAL PWD 15 GM TOP SCH ×2 (09:00→20:54)
[2021-03-25] MEDS: IRON SUCROSE 100MG 5ML VIAL (J1756 PER 1MG) IV SCH (09:10)
[2021-03-25 09:13] LABS: ANISOCYTOSIS 2+; ATYPICAL LYMPH 1 % (0-5); BASOPHILS 2 % (0-1); EOSINOPHILS 8 % (0-3); LYMPHOCYTES 22 % (16-44); MONOCYTES 4 % (0-5); NEUTROPHILS 63 % (28-66); PLATELET ESTIMATE NORMAL (NORMAL)
[2021-03-25 09:14] LABS: HYPOCHROMASIA 1+; OVALOCYTES 1+; TEAR DROP CELLS 1+
[2021-03-25 09:32] LABS: ALBUMIN 2.1 GM/DL (3.2-5.2); ALT/SGPT < 6 U/L (12-78); BILIRUBIN,TOTAL 0.8 MG/DL (0.2-1.0); BLOOD UREA NITROGEN 66 MG/DL (7-18); CALCIUM LEVEL 8.3 MG/DL (8.5-10.1); CARBON DIOXIDE LEVEL 21 MEQ/L (21-32); CHLORIDE LEVEL 102 MEQ/L (98-107); CREATININE FOR GFR 8.42 MG/DL (0.70-1.30); GLOMERULAR FILTRATION RATE 7.2 (>60); GLUCOSE, FASTING 107 MG/DL (70-100); MAGNESIUM LEVEL 2.3 MG/DL (1.8-2.4); SODIUM LEVEL 136 MEQ/L (136-145); TOTAL PROTEIN 5.7 GM/DL (6.4-8.2)
--- NOTE | 2021-03-25 12:59 | IPN ---
PROGRESS NOTE DATE: 03/25/2021 SUBJECTIVE: Mr. Richard is seen this morning during hemodialysis. He is feeling well and has been stable at about baseline. He remains on trach collar. He is currently not in any respiratory distress. PHYSICAL EXAMINATION: VITALS: Temperature 97.6 degrees Fahrenheit, heart rate 78 per minute, respiratory rate 18 per minute, blood pressure 127/60 mmHg at the start of dialysis and right now he is down to 97/50 mmHg, oxygen saturation 98% on 5 liters oxygen via trach collar. HEENT: Head is atraumatic. Neck veins are impossible to be assessed. Tracheostomy is in place. LUNGS: Moderate bilateral air entry. HEART: Sounds are distant. ABDOMEN: Obese and nontender. EXTREMITIES: Without any cyanosis or clubbing. Right arm AV fistula is currently being used for dialysis. NEUROLOGIC: He is at his baseline mentation. He has chronic bilateral lower extremity plegia due to severe spinal stenosis. LABORATORY STUDIES: Today's labs show WBC 7.9, hemoglobin 9.1, hematocrit 31.8, platelets 140,000. Sodium 136, potassium 5.0, CO2 21, BUN 66, creatinine 8.42, calcium 8.3 and magnesium 2.3. PROBLEMS: 1. End-stage renal disease: Patient is being dialyzed today and he is tolerating dialysis treatment very well. He has mild hypotension, which is usual for him and we will continue full treatment and plan to remove about 2.5 to 3 liters of fluid. 2. Anemia: His anemia did get worse. Aranesp was on hold for a while, however, now he is receiving 200 mcg once a week and we will continue with the same. 3. Hypotension: Patient has chronic hypotension and remains on Midodrine 10 mg t.i.d. He did receive his Midodrine dose prior to dialysis today. 4. Respiratory failure: It is a multifactorial issue as he has obstructive sleep apnea with morbid obesity and hypoventilation. He also has issues with his tracheostomy and COPD. His volume status is reasonably well compensated and we will continue to remove as much fluid as he can tolerate. 5. Hyperphosphatemia related to dietary noncompliance and medication noncompliance: He has been refusing Renvela at times. We will continue to encourage him to follow his dietary restrictions and take his phosphate binder.
--- NOTE | 2021-03-25 17:20 | CR ---
CONSULTATION advanced wound care via telemedicine DATE: 03/25/2021 CONSULTATION REQUESTED BY: Dr. Last Iqbal Wound care telemedicine provides a visual assessment of a wound without the benefit of physical examination. It can assist with establishing a diagnosis and etiology. This allows for an initial treatment plan. As wounds often change, it may be necessary to modify the original care. Our recommendation is periodic wound reassessment to monitor treatment. Failure to comply may result in nonhealing of the wound, possible complications, and/or poor outcome. The recommendations given will serve as a treatment option. As I will not be following this patient, this care plan will require the attending physician to give and sign the orders. Upon discharge, outpatient followup can be scheduled at our wound care center. Patient identified and verbal consent obtained. This is a 50-year-old male with multiple medical problems, longstanding hospitalization in alf placement on dialysis, immobile and more recently with a revision of a pre-existing tracheostomy. He has been in and out of nursing homes and now readmitted to the hospital. He is noncompliant with his diet and with assisting in his basic general activities.. He was seen in the past via telemedicine for moisture- associated skin damage involving the buttocks and perineum. The patient, as mentioned, is on dialysis and does not void; however, he does not have a colostomy and has frequent bowel movements. There are signs of previous extensive moisture- associated skin damage involving the right and left buttocks, extending down to the inferior buttock folds and the perineum. This manifests itself as chronic skin discoloration; dark and blackish brown however, there are only scant areas of actual superficial denuding of the skin. Previous treatment has included cleaning the area with Jordan's Baby Shampoo, which contains a surfactant, rinsing this off with saline, and then using Vashe wound cleanser for 10 minutes to the area. Cavilon advanced wound care skin prep is then to be applied. The Cavilon should be reapplied every 4-5 days. With his prior treatment, minimal skin damage has been observed, and the preventive aspects have been successful. Note, dressing changes and wound care remain the same. Additionally, if the patient is having a loose bowel movement, the addition of Metamucil can be considered. This acts as a bulk additive, will absorb water from the gastrointestinal (GI) system, and create a more formed stool, which may be more advantageous in terms of cleaning the patient and keeping the perineum free of skin damage. MTDD
[2021-03-25] MEDS: RAMELTEON 8 MG TAB (ROZEREM) PO SCH (20:55)
[2021-03-25] MEDS: PRAMIPEXOLE (MIRAPEX) 0.125 MG TAB PO SCH (20:55)
[2021-03-26] MEDS: SODIUM CHLORIDE HYPERTONIC 3% 15ML NEB SOL INH SCH ×7 (00:09→22:38)
[2021-03-26] MEDS: ALBUTEROL SULFATE 2.5 MG/0.5 ML INH NEB SOLN NEB PRN ×2 (00:09→05:45)
[2021-03-26 06:00] VITALS: BP 130/62
[2021-03-26 06:22] LABS: HEMATOCRIT 33.3 % (42.0-52.0); HEMOGLOBIN 9.3 g/dl (13.5-17.5); MEAN CORPUSCULAR HEMOGLOBIN 26.7 pg (27.0-33.0); MEAN CORPUSCULAR HGB CONC 27.9 g/dl (32.0-36.5); MEAN CORPUSCULAR VOLUME 95.7 fl (80.0-96.0); PLATELET COUNT, AUTOMATED 134 10^3/uL (150-450); RED BLOOD COUNT 3.48 10^6/uL (4.30-6.10); WHITE BLOOD COUNT 7.7 10^3/uL (4.0-10.0)
[2021-03-26 06:47] LABS: ALBUMIN 2.1 GM/DL (3.2-5.2); BILIRUBIN,TOTAL 0.8 MG/DL (0.2-1.0); CALCIUM LEVEL 8.7 MG/DL (8.5-10.1); CREATININE FOR GFR 7.37 MG/DL (0.70-1.30); GLOMERULAR FILTRATION RATE 8.4 (>60); MAGNESIUM LEVEL 2.1 MG/DL (1.8-2.4); POTASSIUM SERUM 4.4 MEQ/L (3.5-5.1); TOTAL PROTEIN 5.8 GM/DL (6.4-8.2)
[2021-03-26 07:13] LABS: ANISOCYTOSIS 2+; ATYPICAL LYMPH 4 % (0-5); BASOPHILS 1 % (0-1); EOSINOPHILS 12 % (0-3); LYMPHOCYTES 17 % (16-44); MONOCYTES 4 % (0-5); NEUTROPHILS 62 % (28-66); PLATELET ESTIMATE DECREASED (NORMAL); POIKILOCYTOSIS 1+; POLYCHROMASIA 1+
[2021-03-26] MEDS: BUDESONIDE 0.5 MG/2 ML INHALATION SUSPENSION INH SCH ×2 (07:29→19:10)
[2021-03-26] MEDS: ALBUTEROL SULFATE 2.5 MG/0.5 ML INH NEB SOLN NEB SCH ×5 (07:30→22:38)
[2021-03-26] MEDS: FORMOTEROL FUMARATE 20 MCG/2 ML INHALATION SOLUTION (PERFOROMIST) INH SCH ×2 (07:30→19:10)
[2021-03-26] MEDS: MIDODRINE 5 MG TAB PO SCH ×3 (08:00→15:56)
[2021-03-26] MEDS: CALCITRIOL 0.25 MCG CAP (S0169) PO SCH (08:55)
[2021-03-26] MEDS: (RENVELA) SEVELAMER **CARBONate** 800 MG TAB PO SCH ×3 (08:55→17:21)
[2021-03-26] MEDS: APIXABAN 2.5 MG TAB (ELIQUIS) PO SCH ×2 (08:55→21:51)
[2021-03-26] MEDS: AMIODARONE 200 MG TAB (PACERONE) PO SCH (08:56)
[2021-03-26] MEDS: levETIRAcetam 250MG TABLET (KEPPRA) PO SCH (08:56)
[2021-03-26] MEDS: VITAMIN D 1,000 INTERNATIONAL UNITS TABLET PO SCH (08:56)
[2021-03-26] MEDS: PANTOPRAZOLE 40MG TAB (PROTONIX) PO SCH (08:56)
[2021-03-26] MEDS: SERTRALINE 100 MG TAB PO SCH (08:56)
[2021-03-26] MEDS: DIMETHICONE 2% OINTMENT(VANICREAM) 70GM TUBE TOP SCH ×2 (08:57→21:51)
[2021-03-26] MEDS: NYSTATIN 100,000 UNITS/GM TOPICAL PWD 15 GM TOP SCH ×2 (08:57→21:53)
[2021-03-26 09:00] VITALS: BP 147/57
[2021-03-26] MEDS: PRAMIPEXOLE (MIRAPEX) 0.125 MG TAB PO SCH (21:51)
[2021-03-26] MEDS: oxyCODONE 5MG TAB PO PRN (21:52)
[2021-03-26] MEDS: RAMELTEON 8 MG TAB (ROZEREM) PO SCH (21:52)
[2021-03-26] MEDS: ACETAMINOPHEN TAB 650MG DOSE (2X325MG) PO PRN (21:52)
[2021-03-26] MEDS: clonazePAM 0.5 MG TAB PO PRN (21:52)
[2021-03-27] MEDS: SODIUM CHLORIDE HYPERTONIC 3% 15ML NEB SOL INH SCH ×5 (04:30→20:00)
[2021-03-27] MEDS: ALBUTEROL SULFATE 2.5 MG/0.5 ML INH NEB SOLN NEB PRN (04:31)
[2021-03-27 06:00] VITALS: BP 115/52
[2021-03-27] MEDS: PANTOPRAZOLE 40MG TAB (PROTONIX) PO SCH (06:04)
[2021-03-27] MEDS: levETIRAcetam 250MG TABLET (KEPPRA) PO SCH (06:04)
[2021-03-27] MEDS: CALCITRIOL 0.25 MCG CAP (S0169) PO SCH (06:04)
[2021-03-27] MEDS: (RENVELA) SEVELAMER **CARBONate** 800 MG TAB PO SCH ×3 (06:04→18:13)
[2021-03-27] MEDS: SERTRALINE 100 MG TAB PO SCH (06:04)
[2021-03-27] MEDS: APIXABAN 2.5 MG TAB (ELIQUIS) PO SCH ×2 (06:04→20:40)
[2021-03-27] MEDS: VITAMIN D 1,000 INTERNATIONAL UNITS TABLET PO SCH (06:04)
[2021-03-27] MEDS: DIMETHICONE 2% OINTMENT(VANICREAM) 70GM TUBE TOP SCH ×2 (06:05→20:38)
[2021-03-27] MEDS: NYSTATIN 100,000 UNITS/GM TOPICAL PWD 15 GM TOP SCH ×2 (06:05→20:38)
[2021-03-27] MEDS: MIDODRINE 5 MG TAB PO SCH ×3 (06:05→18:14)
[2021-03-27] MEDS: AMIODARONE 200 MG TAB (PACERONE) PO SCH (06:16)
[2021-03-27] MEDS: FORMOTEROL FUMARATE 20 MCG/2 ML INHALATION SOLUTION (PERFOROMIST) INH SCH ×2 (07:58→20:10)
[2021-03-27] MEDS: BUDESONIDE 0.5 MG/2 ML INHALATION SUSPENSION INH SCH ×2 (07:58→20:10)
[2021-03-27 09:58] LABS: BASO # 0.1 10^3/uL (0.0-0.2); BASO % 0.7 % (0.0-1.0); EOS # 0.8 10^3/uL (0.0-0.5); EOS % 7.5 % (0.0-3.0); HEMATOCRIT 32.6 % (42.0-52.0); HEMOGLOBIN 9.4 g/dl (13.5-17.5); LYMPH # 2.2 10^3/uL (1.5-5.0); MEAN CORPUSCULAR HEMOGLOBIN 27.2 pg (27.0-33.0); MEAN CORPUSCULAR HGB CONC 28.8 g/dl (32.0-36.5); MEAN CORPUSCULAR VOLUME 94.2 fl (80.0-96.0); MONO # 0.7 10^3/uL (0.0-0.8); MONO % 6.4 % (2.0-8.0); NEUTROPHILS # 6.6 10^3/uL (1.5-8.5); NEUTROPHILS % 63.8 % (36.0-66.0); PLATELET COUNT, AUTOMATED 128 10^3/uL (150-450); RED BLOOD COUNT 3.46 10^6/uL (4.30-6.10); WHITE BLOOD COUNT 10.4 10^3/uL (4.0-10.0)
[2021-03-27] MEDS: IRON SUCROSE 100MG 5ML VIAL (J1756 PER 1MG) IV SCH (10:17)
[2021-03-27 10:41] LABS: ALBUMIN 2.1 GM/DL (3.2-5.2); BILIRUBIN,TOTAL 0.8 MG/DL (0.2-1.0); CALCIUM LEVEL 8.3 MG/DL (8.5-10.1); CREATININE FOR GFR 8.12 MG/DL (0.70-1.30); GLOMERULAR FILTRATION RATE 7.5 (>60); MAGNESIUM LEVEL 2.1 MG/DL (1.8-2.4); POTASSIUM SERUM 5.2 MEQ/L (3.5-5.1); TOTAL PROTEIN 5.8 GM/DL (6.4-8.2)
[2021-03-27] MEDS: ALBUTEROL SULFATE 2.5 MG/0.5 ML INH NEB SOLN NEB SCH ×3 (10:55→20:00)
--- NOTE | 2021-03-27 11:49 | IPN ---
PROGRESS NOTE DATE: 03/27/2021 SUBJECTIVE: Mr. Richard is seen this morning during hemodialysis. He is resting comfortably with eyes closed. He remains on trach collar. No unusual events have been reported since his last dialysis on March 25. OBJECTIVE: VITAL SIGNS: Temperature 96.9 degrees Fahrenheit, heart rate is 75 per minute and respiratory rate 18 per minute. Blood pressure 130/50 mmHg and oxygen saturation 96% on trach collar with 5 liters of oxygen. HEAD AND NECK: Head is atraumatic. Tracheostomy is in place and neck veins are impossible to be assessed. HEART: Heart sounds are regular and distant. LUNGS: Diminished breath sounds. ABDOMEN: Obese and nontender. Bowel sounds are normal. EXTREMITIES: Without any cyanosis or clubbing. Right arm AV fistula is currently being used for dialysis. LABORATORY DATA: Today's labs showed a WBC of 10.4, hemoglobin is 9.4 and hematocrit is 32.6. Platelets are 128,000. Sodium is 133, potassium is 5.2, CO2 21, BUN 70 and creatinine is 8.12. Calcium is 8.3. PROBLEMS: 1. Endstage renal disease. Patient is being dialyzed and he is tolerating dialysis treatment very well. AV fistula is working well. 2. Respiratory insufficiency, this is mostly a chronic issue related to his obstructive sleep apnea, tracheostomy issue and COPD. Volume status seems reasonably well-compensated and we are trying to remove about 3 liters of fluid today as tolerated. 3. Hyperkalemia, patient has borderline hyperkalemia with potassium level of 5.2. This will be corrected with dialysis and no other intervention will be needed. 4. Hyponatremia, mild hyponatremia is also likely to correct with dialysis and no other intervention will be needed. 5. Anemia, the anemia is stable and he continues with Aranesp 200 mcg once a week.
[2021-03-27 18:15] VITALS: BP 136/62
[2021-03-27] MEDS: RAMELTEON 8 MG TAB (ROZEREM) PO SCH (20:39)
[2021-03-27] MEDS: ACETAMINOPHEN TAB 650MG DOSE (2X325MG) PO PRN (20:39)
[2021-03-27] MEDS: oxyCODONE 5MG TAB PO PRN (20:39)
[2021-03-27] MEDS: clonazePAM 0.5 MG TAB PO PRN (20:39)
[2021-03-27] MEDS: PRAMIPEXOLE (MIRAPEX) 0.125 MG TAB PO SCH (20:39)
[2021-03-28] MEDS: SODIUM CHLORIDE HYPERTONIC 3% 15ML NEB SOL INH SCH ×6 (00:54→23:20)
[2021-03-28] MEDS: ALBUTEROL SULFATE 2.5 MG/0.5 ML INH NEB SOLN NEB PRN ×3 (00:55→23:20)
[2021-03-28 04:37] VITALS: BP 120/62
[2021-03-28 06:04] LABS: HEMATOCRIT 34.3 % (42.0-52.0); HEMOGLOBIN 9.9 g/dl (13.5-17.5); MEAN CORPUSCULAR HEMOGLOBIN 26.8 pg (27.0-33.0); MEAN CORPUSCULAR HGB CONC 28.9 g/dl (32.0-36.5); PLATELET COUNT, AUTOMATED 115 10^3/uL (150-450); RED BLOOD COUNT 3.69 10^6/uL (4.30-6.10); WHITE BLOOD COUNT 10.3 10^3/uL (4.0-10.0)
[2021-03-28 06:27] LABS: ALBUMIN 2.3 GM/DL (3.2-5.2); CALCIUM LEVEL 9.1 MG/DL (8.5-10.1); CREATININE FOR GFR 6.57 MG/DL (0.70-1.30); GLOMERULAR FILTRATION RATE 9.6 (>60); MAGNESIUM LEVEL 1.6 MG/DL (1.8-2.4); POTASSIUM SERUM 4.7 MEQ/L (3.5-5.1); TOTAL PROTEIN 6.2 GM/DL (6.4-8.2)
[2021-03-28 06:28] LABS: EOSINOPHILS 13 % (0-3); LYMPHOCYTES 25 % (16-44); MONOCYTES 1 % (0-5); NEUTROPHILS 61 % (28-66)
[2021-03-28 06:29] LABS: PLATELET ESTIMATE NORMAL (NORMAL)
[2021-03-28] MEDS: FORMOTEROL FUMARATE 20 MCG/2 ML INHALATION SOLUTION (PERFOROMIST) INH SCH ×2 (07:41→19:54)
[2021-03-28] MEDS: BUDESONIDE 0.5 MG/2 ML INHALATION SUSPENSION INH SCH ×2 (07:41→19:54)
[2021-03-28] MEDS: ALBUTEROL SULFATE 2.5 MG/0.5 ML INH NEB SOLN NEB SCH ×4 (07:41→20:00)
[2021-03-28] MEDS: (RENVELA) SEVELAMER **CARBONate** 800 MG TAB PO SCH ×3 (08:19→17:52)
[2021-03-28] MEDS: levETIRAcetam 250MG TABLET (KEPPRA) PO SCH (08:20)
[2021-03-28] MEDS: CALCITRIOL 0.25 MCG CAP (S0169) PO SCH (08:20)
[2021-03-28] MEDS: MIDODRINE 5 MG TAB PO SCH ×3 (08:20→16:00)
[2021-03-28] MEDS: clonazePAM 0.5 MG TAB PO PRN ×2 (08:20→20:59)
[2021-03-28] MEDS: VITAMIN D 1,000 INTERNATIONAL UNITS TABLET PO SCH (08:21)
[2021-03-28] MEDS: PANTOPRAZOLE 40MG TAB (PROTONIX) PO SCH (08:21)
[2021-03-28] MEDS: AMIODARONE 200 MG TAB (PACERONE) PO SCH (08:21)
[2021-03-28] MEDS: APIXABAN 2.5 MG TAB (ELIQUIS) PO SCH ×2 (08:21→21:00)
[2021-03-28] MEDS: SERTRALINE 100 MG TAB PO SCH (08:22)
[2021-03-28] MEDS: oxyCODONE 5MG TAB PO PRN ×2 (08:22→21:00)
[2021-03-28] MEDS: DIMETHICONE 2% OINTMENT(VANICREAM) 70GM TUBE TOP SCH ×2 (08:24→21:00)
[2021-03-28] MEDS: NYSTATIN 100,000 UNITS/GM TOPICAL PWD 15 GM TOP SCH ×2 (08:24→21:01)
[2021-03-28 12:56] VITALS: BP 157/86
[2021-03-28] MEDS: RAMELTEON 8 MG TAB (ROZEREM) PO SCH (20:59)
[2021-03-28] MEDS: PRAMIPEXOLE (MIRAPEX) 0.125 MG TAB PO SCH (20:59)
[2021-03-29] MEDS: SODIUM CHLORIDE HYPERTONIC 3% 15ML NEB SOL INH SCH ×6 (04:31→23:48)
[2021-03-29] MEDS: ALBUTEROL SULFATE 2.5 MG/0.5 ML INH NEB SOLN NEB PRN (04:32)
[2021-03-29] MEDS: (RENVELA) SEVELAMER **CARBONate** 800 MG TAB PO SCH ×3 (07:19→17:41)
[2021-03-29] MEDS: PANTOPRAZOLE 40MG TAB (PROTONIX) PO SCH (07:28)
[2021-03-29] MEDS: APIXABAN 2.5 MG TAB (ELIQUIS) PO SCH ×2 (07:28→21:28)
[2021-03-29] MEDS: VITAMIN D 1,000 INTERNATIONAL UNITS TABLET PO SCH (07:28)
[2021-03-29] MEDS: levETIRAcetam 250MG TABLET (KEPPRA) PO SCH (07:28)
[2021-03-29] MEDS: SERTRALINE 100 MG TAB PO SCH (07:29)
[2021-03-29] MEDS: MIDODRINE 5 MG TAB PO SCH ×3 (07:29→17:41)
[2021-03-29] MEDS: AMIODARONE 200 MG TAB (PACERONE) PO SCH (07:29)
[2021-03-29] MEDS: DIMETHICONE 2% OINTMENT(VANICREAM) 70GM TUBE TOP SCH ×2 (07:29→21:28)
[2021-03-29] MEDS: NYSTATIN 100,000 UNITS/GM TOPICAL PWD 15 GM TOP SCH ×2 (07:30→21:29)
[2021-03-29] MEDS: BUDESONIDE 0.5 MG/2 ML INHALATION SUSPENSION INH SCH ×2 (07:37→20:10)
[2021-03-29] MEDS: FORMOTEROL FUMARATE 20 MCG/2 ML INHALATION SOLUTION (PERFOROMIST) INH SCH ×2 (07:38→20:10)
[2021-03-29 07:45] VITALS: BP 156/61
[2021-03-29] MEDS: ALBUTEROL SULFATE 2.5 MG/0.5 ML INH NEB SOLN NEB SCH ×3 (08:00→15:11)
[2021-03-29 08:47] LABS: BASO % 0.4 % (0.0-1.0); EOS % 8.8 % (0.0-3.0); HEMATOCRIT 33.3 % (42.0-52.0); HEMOGLOBIN 9.5 g/dl (13.5-17.5); LYMPH # 2.1 10^3/uL (1.5-5.0); LYMPH % 19.6 % (24.0-44.0); MEAN CORPUSCULAR HEMOGLOBIN 26.6 pg (27.0-33.0); MEAN CORPUSCULAR HGB CONC 28.5 g/dl (32.0-36.5); MEAN CORPUSCULAR VOLUME 93.3 fl (80.0-96.0); MONO # 0.7 10^3/uL (0.0-0.8); MONO % 6.6 % (2.0-8.0); NEUTROPHILS % 64.1 % (36.0-66.0); PLATELET COUNT, AUTOMATED 129 10^3/uL (150-450); RED BLOOD COUNT 3.57 10^6/uL (4.30-6.10); WHITE BLOOD COUNT 10.9 10^3/uL (4.0-10.0)
[2021-03-29 09:14] LABS: ALBUMIN 2.1 GM/DL (3.2-5.2); ALT/SGPT < 6 U/L (12-78); BLOOD UREA NITROGEN 66 MG/DL (7-18); CALCIUM LEVEL 8.1 MG/DL (8.5-10.1); CARBON DIOXIDE LEVEL 21 MEQ/L (21-32); CHLORIDE LEVEL 99 MEQ/L (98-107); CREATININE FOR GFR 7.77 MG/DL (0.70-1.30); GLOMERULAR FILTRATION RATE 7.9 (>60); GLUCOSE, FASTING 97 MG/DL (70-100); POTASSIUM SERUM 5.2 MEQ/L (3.5-5.1); SODIUM LEVEL 132 MEQ/L (136-145); TOTAL PROTEIN 6.1 GM/DL (6.4-8.2)
[2021-03-29] MEDS: IRON SUCROSE 100MG 5ML VIAL (J1756 PER 1MG) IV SCH (10:07)
--- NOTE | 2021-03-29 10:27 | IPN ---
PROGRESS NOTE DATE: 03/29/2021 SUBJECTIVE: The patient was seen and examined at the bedside tomorrow during hemodialysis procedure. He is tolerating the hemodialysis procedure well. He denies any active complaints at this time. OBJECTIVE: VITAL SIGNS: Temperature is 98.9 degrees Fahrenheit, blood pressure is 156/61, pulse is 71, respiratory rate of 18, saturating 99% on trach collar. INTAKE AND OUTPUT: Urine output is not recorded. Weight on the bed scale was 156.8 kg on March 26. GENERAL: Patient is awake, alert and oriented x3. Morbidly obese, laying in bed getting hemodialysis done. HEAD AND NECK: Extraocular muscles intact. Pupils equally round and reactive to light. NECK: Supple. He has a trach collar. CARDIOVASCULAR: S1 and S2, regular rate. He has 1+ edema of the bilateral lower extremities. RESPIRATORY: He is dependent on the trach collar, otherwise bilateral equal air entry. ABDOMEN: Soft, obese, positive bowel sounds. Abdominal wall edema was noted. MUSCULOSKELETAL: Decreased range of movement of bilateral lower extremities. He has waffle boots on the legs. IV ACCESS: He has a right upper arm AV fistula which is being used for dialysis. C.O.D. CLERK: Patient is awake, alert, unable to talk because of tracheostomy, otherwise follows commands and moves bilateral upper extremities. LABORATORY DATA: CBC showed a WBC of 10.9, hemoglobin 9.5, platelets 129,000. BMP showed a sodium of 132, potassium 5.2, chloride 99, bicarbonate 21, BUN 66, creatinine is 7.7. CURRENT INPATIENT MEDICATIONS: The patient's medications were all reviewed by myself. There is no significant change in the medications at this time. He has finished the IV antibiotics now. ASSESSMENT AND PLAN: 1. Endstage renal disease, patient is dialysis dependent. He is being dialyzed according to his regular schedule today. Ultra filtration goal will be 3 liters as tolerated by his blood pressure. 2. Anemia and endstage renal disease. Patient's hemoglobin is slightly suboptimal, continue current dose of Aranesp 200 mcg with dialysis. Draw the labs only on dialysis days. Continue Venofer which was just started last week. 3. Secondary hyperparathyroidism, continue current dose of Calcitriol. 4. Chronic kidney disease mineral bone disease. Patient was advised more compliance with Renvela. 5. Chronic hypotension, continue current dose of Midodrine 10 mg p.o. three times a day.
[2021-03-29] MEDS: DARBEPOETIN 200MCG/0.4ML *DIALYSIS* SYRINGE (J0882 PER 1MCG) IV SCH (11:05)
--- NOTE | 2021-03-29 14:02 | REP ---
INDICATION: PNA COMPARISON: 03/11/2021 TECHNIQUE: Portable AP view of the chest FINDINGS: Examination is stable. Cardiomegaly and tracheostomy again noted. No acute consolidation, effusion, or pneumothorax. Skeletal structures are intact. IMPRESSION: No acute cardiopulmonary process appreciated. <Electronically signed by Juma March > 03/29/21 [id number]
[2021-03-29] MEDS: IPRATROPIUM 0.5MG/ALBUTEROL 2.5MG INH SOL UD 3ML (DUONEB) NEB SCH (20:10)
[2021-03-29] MEDS: PRAMIPEXOLE (MIRAPEX) 0.125 MG TAB PO SCH (21:28)
[2021-03-29] MEDS: RAMELTEON 8 MG TAB (ROZEREM) PO SCH (21:28)
[2021-03-29] MEDS: IPRATROPIUM 0.5MG/ALBUTEROL 2.5MG INH SOL UD 3ML (DUONEB) NEB PRN (23:49)
[2021-03-30] MEDS: SODIUM CHLORIDE HYPERTONIC 3% 15ML NEB SOL INH SCH ×5 (03:43→20:33)
[2021-03-30] MEDS: IPRATROPIUM 0.5MG/ALBUTEROL 2.5MG INH SOL UD 3ML (DUONEB) NEB PRN (03:43)
[2021-03-30 05:32] VITALS: BP 148/72
[2021-03-30] MEDS: FORMOTEROL FUMARATE 20 MCG/2 ML INHALATION SOLUTION (PERFOROMIST) INH SCH ×2 (07:33→20:33)
[2021-03-30] MEDS: BUDESONIDE 0.5 MG/2 ML INHALATION SUSPENSION INH SCH ×2 (07:33→20:33)
[2021-03-30] MEDS: IPRATROPIUM 0.5MG/ALBUTEROL 2.5MG INH SOL UD 3ML (DUONEB) NEB SCH ×4 (07:35→20:33)
[2021-03-30] MEDS: (RENVELA) SEVELAMER **CARBONate** 800 MG TAB PO SCH ×3 (08:00→17:00)
[2021-03-30] MEDS: MIDODRINE 5 MG TAB PO SCH ×3 (08:00→17:01)
[2021-03-30] MEDS: APIXABAN 2.5 MG TAB (ELIQUIS) PO SCH ×2 (09:28→20:26)
[2021-03-30] MEDS: VITAMIN D 1,000 INTERNATIONAL UNITS TABLET PO SCH (09:29)
[2021-03-30] MEDS: AMIODARONE 200 MG TAB (PACERONE) PO SCH (09:29)
[2021-03-30] MEDS: PANTOPRAZOLE 40MG TAB (PROTONIX) PO SCH (09:29)
[2021-03-30] MEDS: levETIRAcetam 250MG TABLET (KEPPRA) PO SCH (09:29)
[2021-03-30] MEDS: DIMETHICONE 2% OINTMENT(VANICREAM) 70GM TUBE TOP SCH ×2 (09:29→20:27)
[2021-03-30] MEDS: SERTRALINE 100 MG TAB PO SCH (09:29)
[2021-03-30] MEDS: NYSTATIN 100,000 UNITS/GM TOPICAL PWD 15 GM TOP SCH ×2 (09:30→20:27)
[2021-03-30] MEDS: clonazePAM 0.5 MG TAB PO PRN ×2 (12:08→20:26)
[2021-03-30] MEDS: oxyCODONE 5MG TAB PO PRN ×2 (12:08→20:26)
[2021-03-30 14:33] LABS: BASO % 0.4 % (0.0-1.0); EOS # 0.5 10^3/uL (0.0-0.5); EOS % 6.2 % (0.0-3.0); HEMATOCRIT 32.1 % (42.0-52.0); HEMOGLOBIN 9.3 g/dl (13.5-17.5); LYMPH # 1.5 10^3/uL (1.5-5.0); LYMPH % 18.4 % (24.0-44.0); MEAN CORPUSCULAR HEMOGLOBIN 26.9 pg (27.0-33.0); MEAN CORPUSCULAR VOLUME 92.8 fl (80.0-96.0); MONO # 0.4 10^3/uL (0.0-0.8); MONO % 4.2 % (2.0-8.0); NEUTROPHILS # 5.9 10^3/uL (1.5-8.5); NEUTROPHILS % 70.4 % (36.0-66.0); PLATELET COUNT, AUTOMATED 122 10^3/uL (150-450); RED BLOOD COUNT 3.46 10^6/uL (4.30-6.10); WHITE BLOOD COUNT 8.4 10^3/uL (4.0-10.0)
[2021-03-30 15:09] LABS: ALT/SGPT < 6 U/L (12-78); BILIRUBIN,TOTAL 0.8 MG/DL (0.2-1.0); BLOOD UREA NITROGEN 60 MG/DL (7-18); CALCIUM LEVEL 8.4 MG/DL (8.5-10.1); CARBON DIOXIDE LEVEL 23 MEQ/L (21-32); CHLORIDE LEVEL 100 MEQ/L (98-107); CREATININE FOR GFR 6.97 MG/DL (0.70-1.30); GLUCOSE, FASTING 153 MG/DL (70-100); POTASSIUM SERUM 4.8 MEQ/L (3.5-5.1); SODIUM LEVEL 134 MEQ/L (136-145); TOTAL PROTEIN 5.8 GM/DL (6.4-8.2)
[2021-03-30] MEDS: PRAMIPEXOLE (MIRAPEX) 0.125 MG TAB PO SCH (20:26)
[2021-03-30] MEDS: RAMELTEON 8 MG TAB (ROZEREM) PO SCH (20:27)
[2021-03-30 20:34] VITALS: O2SAT 99
[2021-03-31] MEDS: SODIUM CHLORIDE HYPERTONIC 3% 15ML NEB SOL INH SCH ×6 (00:25→20:36)
[2021-03-31] MEDS: IPRATROPIUM 0.5MG/ALBUTEROL 2.5MG INH SOL UD 3ML (DUONEB) NEB PRN ×2 (00:25→04:03)
[2021-03-31] MEDS: FORMOTEROL FUMARATE 20 MCG/2 ML INHALATION SOLUTION (PERFOROMIST) INH SCH ×2 (07:36→20:36)
[2021-03-31] MEDS: BUDESONIDE 0.5 MG/2 ML INHALATION SUSPENSION INH SCH ×2 (07:36→20:36)
[2021-03-31] MEDS: (RENVELA) SEVELAMER **CARBONate** 800 MG TAB PO SCH ×3 (08:00→17:59)
[2021-03-31] MEDS: IPRATROPIUM 0.5MG/ALBUTEROL 2.5MG INH SOL UD 3ML (DUONEB) NEB SCH ×4 (08:00→20:36)
--- NOTE | 2021-03-31 08:22 | IPN ---
PROGRESS NOTE DATE: 03/29/2021 SUBJECTIVE: The patient was seen and examined at the bedside today morning. During hemodialysis procedure he started to OBJECTIVE: T98.9F,BP156/61, RR18, Sat:99% Exam: AAOx3 Laying and getting HD. HEENT: EOMI, PERRLA, Trach collar ResP: Trach dependent, CTA BL, Abd: Soft ,obese and non tender Ext: Waffle boots in legs IT QUALITY ANALYST: Awake and follows commands, weak legs Labs: Latest labs reviewed Meds: No change in meds. ASSESSMENT/PLAN: 1: ESRD: HD today, UF goal 2.5/3Kg as tolerated 2:Hypotension: Midodrine 3: Anemia in ESRD: Cont Aranesp 4: CKD-MBD: Cont PO4 binders. He is non compliant. MTDD
[2021-03-31] MEDS: DIMETHICONE 2% OINTMENT(VANICREAM) 70GM TUBE TOP SCH ×2 (09:00→21:00)
[2021-03-31] MEDS: SERTRALINE 100 MG TAB PO SCH (09:31)
[2021-03-31] MEDS: AMIODARONE 200 MG TAB (PACERONE) PO SCH (09:31)
[2021-03-31] MEDS: CALCITRIOL 0.25 MCG CAP (S0169) PO SCH (09:31)
[2021-03-31] MEDS: MIDODRINE 5 MG TAB PO SCH ×3 (09:32→16:00)
[2021-03-31] MEDS: levETIRAcetam 250MG TABLET (KEPPRA) PO SCH (09:32)
[2021-03-31] MEDS: PANTOPRAZOLE 40MG TAB (PROTONIX) PO SCH (09:32)
[2021-03-31] MEDS: APIXABAN 2.5 MG TAB (ELIQUIS) PO SCH ×2 (09:32→20:40)
[2021-03-31] MEDS: VITAMIN D 1,000 INTERNATIONAL UNITS TABLET PO SCH (09:33)
[2021-03-31] MEDS: NYSTATIN 100,000 UNITS/GM TOPICAL PWD 15 GM TOP SCH ×2 (09:33→20:40)
[2021-03-31 20:37] VITALS: O2SAT 99
[2021-03-31] MEDS: clonazePAM 0.5 MG TAB PO PRN (20:39)
[2021-03-31] MEDS: PRAMIPEXOLE (MIRAPEX) 0.125 MG TAB PO SCH (20:39)
[2021-03-31] MEDS: oxyCODONE 5MG TAB PO PRN (20:39)
[2021-03-31] MEDS: RAMELTEON 8 MG TAB (ROZEREM) PO SCH (20:39)
[2021-04-01] MEDS: IPRATROPIUM 0.5MG/ALBUTEROL 2.5MG INH SOL UD 3ML (DUONEB) NEB PRN ×3 (00:33→23:48)
[2021-04-01] MEDS: SODIUM CHLORIDE HYPERTONIC 3% 15ML NEB SOL INH SCH ×7 (00:34→23:48)
[2021-04-01] MEDS: AMIODARONE 200 MG TAB (PACERONE) PO SCH (05:30)
[2021-04-01] MEDS: levETIRAcetam 250MG TABLET (KEPPRA) PO SCH (05:31)
[2021-04-01] MEDS: clonazePAM 0.5 MG TAB PO PRN ×2 (05:31→21:01)
[2021-04-01] MEDS: PANTOPRAZOLE 40MG TAB (PROTONIX) PO SCH (05:31)
[2021-04-01] MEDS: CALCITRIOL 0.25 MCG CAP (S0169) PO SCH (05:31)
[2021-04-01] MEDS: MIDODRINE 5 MG TAB PO SCH ×3 (05:31→17:07)
[2021-04-01] MEDS: SERTRALINE 100 MG TAB PO SCH (05:31)
[2021-04-01] MEDS: oxyCODONE 5MG TAB PO PRN ×2 (05:31→21:01)
[2021-04-01] MEDS: APIXABAN 2.5 MG TAB (ELIQUIS) PO SCH ×2 (05:32→21:01)
[2021-04-01] MEDS: VITAMIN D 1,000 INTERNATIONAL UNITS TABLET PO SCH (05:32)
[2021-04-01 05:33] VITALS: BP 133/68
[2021-04-01] MEDS ORDERED: LIDOCAINE 1% SDV 5ML VIAL SC PRN (06:00)
[2021-04-01] MEDS: BUDESONIDE 0.5 MG/2 ML INHALATION SUSPENSION INH SCH ×2 (07:28→19:43)
[2021-04-01] MEDS: FORMOTEROL FUMARATE 20 MCG/2 ML INHALATION SOLUTION (PERFOROMIST) INH SCH ×2 (07:28→19:43)
[2021-04-01] MEDS: IPRATROPIUM 0.5MG/ALBUTEROL 2.5MG INH SOL UD 3ML (DUONEB) NEB SCH ×3 (07:29→19:43)
[2021-04-01] MEDS: (RENVELA) SEVELAMER **CARBONate** 800 MG TAB PO SCH ×3 (08:00→17:08)
[2021-04-01] MEDS: DIMETHICONE 2% OINTMENT(VANICREAM) 70GM TUBE TOP SCH ×2 (08:03→21:00)
[2021-04-01] MEDS: NYSTATIN 100,000 UNITS/GM TOPICAL PWD 15 GM TOP SCH ×2 (08:03→21:02)
--- NOTE | 2021-04-01 12:30 | IPN ---
PROGRESS NOTE DATE: 04/01/2021 SUBJECTIVE: The patient was seen and examined at the bedside today morning during hemodialysis. He is tolerating the hemodialysis procedure well. He denies any active complaints at this time. OBJECTIVE: VITAL SIGNS: Temperature is 98 degrees Fahrenheit, blood pressure is 133/68, pulse is 94, respiratory rate is 16, saturating 98% on trach collar at 5 liters. INTAKE AND OUTPUT: There is no urine output recorded. Weight on the bed scale is not available. GENERAL: Patient is laying in bed getting hemodialysis done. HEAD AND NECK: Extraocular muscles are intact. Pupils are equally round and reactive to light. Neck has a trach collar. CARDIOVASCULAR: S1 and S2, regular rate, 1+ edema of the thighs. RESPIRATORY: Chest is clear to auscultation bilaterally. ABDOMEN: Soft, obese, abdominal wall edema is noted. MUSCULOSKELETAL: Decreased range of movement of bilateral lower extremities. He has waffle boots on the legs. AV ACCESS: He has a right upper arm AV fistula which is being used for dialysis. SCHOOL BUS ATTENDANT: Patient is awake, able to communicate and follow commands and moves bilateral upper extremities. LABORATORY DATA: CBC showed a WBC of 8.4, hemoglobin 9.3, that is from March 30. BMP is also from March 30 with a potassium of 4.8. CURRENT INPATIENT MEDICATIONS: Patient's medications were all reviewed by myself. There is no significant change in the medications today as compared with the last time he was seen. ASSESSMENT AND PLAN: 1. Endstage renal disease. Patient is being dialyzed according to his regular schedule. Ultrafiltration goal will be around 3 liters as tolerated by his blood pressure. 2. Anemia and endstage renal disease. Continue Aranesp with dialysis. Dose will be adjusted if hemoglobin stays below 10. 3. Secondary hyperparathyroidism, continue current dose of Calcitriol. 4. Hypotension, continue Midodrine. Blood pressure is controlled now. 5. Chronic kidney disease mineral bone disease and hyperphosphatemia. Continue current dose of Renvela. Patient is noncompliant with the phosphorus binders, most of the time he refuses them. MTDD
[2021-04-01] MEDS: ONDANSETRON 4 MG TAB PO PRN (17:07)
[2021-04-01] MEDS: RAMELTEON 8 MG TAB (ROZEREM) PO SCH (21:01)
[2021-04-01] MEDS: PRAMIPEXOLE (MIRAPEX) 0.125 MG TAB PO SCH (21:01)
[2021-04-02] MEDS: IPRATROPIUM 0.5MG/ALBUTEROL 2.5MG INH SOL UD 3ML (DUONEB) NEB PRN ×2 (04:00→23:01)
[2021-04-02] MEDS: SODIUM CHLORIDE HYPERTONIC 3% 15ML NEB SOL INH SCH ×6 (04:00→23:01)
[2021-04-02 06:07] VITALS: BP 123/49
[2021-04-02] MEDS: IPRATROPIUM 0.5MG/ALBUTEROL 2.5MG INH SOL UD 3ML (DUONEB) NEB SCH ×4 (07:38→19:09)
[2021-04-02] MEDS: FORMOTEROL FUMARATE 20 MCG/2 ML INHALATION SOLUTION (PERFOROMIST) INH SCH ×2 (07:38→19:08)
[2021-04-02] MEDS: BUDESONIDE 0.5 MG/2 ML INHALATION SUSPENSION INH SCH ×2 (07:38→19:08)
[2021-04-02] MEDS: (RENVELA) SEVELAMER **CARBONate** 800 MG TAB PO SCH ×3 (08:00→17:35)
[2021-04-02] MEDS: MIDODRINE 5 MG TAB PO SCH ×3 (09:36→17:35)
[2021-04-02] MEDS: clonazePAM 0.5 MG TAB PO PRN ×2 (09:36→21:49)
[2021-04-02] MEDS: APIXABAN 2.5 MG TAB (ELIQUIS) PO SCH ×2 (09:36→21:50)
[2021-04-02] MEDS: VITAMIN D 1,000 INTERNATIONAL UNITS TABLET PO SCH (09:36)
[2021-04-02] MEDS: CALCITRIOL 0.25 MCG CAP (S0169) PO SCH (09:36)
[2021-04-02] MEDS: PANTOPRAZOLE 40MG TAB (PROTONIX) PO SCH (09:36)
[2021-04-02] MEDS: SERTRALINE 100 MG TAB PO SCH (09:36)
[2021-04-02] MEDS: AMIODARONE 200 MG TAB (PACERONE) PO SCH (09:36)
[2021-04-02] MEDS: levETIRAcetam 250MG TABLET (KEPPRA) PO SCH (09:36)
[2021-04-02] MEDS: oxyCODONE 5MG TAB PO PRN ×2 (09:37→21:50)
[2021-04-02] MEDS: NYSTATIN 100,000 UNITS/GM TOPICAL PWD 15 GM TOP SCH ×2 (09:42→21:51)
[2021-04-02] MEDS: DIMETHICONE 2% OINTMENT(VANICREAM) 70GM TUBE TOP SCH ×2 (09:42→21:00)
--- NOTE | 2021-04-02 16:53 | IPNPDOC ---
Text Note Date of Service The patient was seen on 04/02/21. NOTE Subjective: No any acute events overnight. Objective: GENERAL APPEARANCE: Morbidly obese male HEENT: no scleral icterus, no JVD, EOMI, trach in place CARDIOVASCULAR: S1S2 LUNGS: Diminished lung sounds bilaterally ABDOMEN: soft & not tender w palpitation MUSCULOSKELETAL: no cyanosis, no swelling INTEGUMENT: no generalized pallor NEUROLOGICAL: cranial nerve function from 2-12 intact intact, follows commands, speech not dysarthric Assessment and plan : Patient is 50 years old male with end-stage renal diseases on dialysis, chronic hypoxic hypercapnic respiratory failure secondary to restrictive lung diseases. He recently had trach replaced on 01/01/2021. He is a hemodialysis patient, being following by nephrology. Currently pending placement Chronic hypoxic and hypercapnic respiratory failure/tracheostomy Secondary to restrictive lung disease from obesity and mucus plugging Continue albuterol, budesonide, formoterol fumarate, and Mucinex Appreciate/agree with wound care consult Morbid obesity BMI 42.5 Contributing to his restrictive lung disease and complicating care Severe spinal stenosis Continue pain regimen End-stage renal disease on hemodialysis Neurology team follows him Continue with dialysis GERD Continue PPI Depression/anxiety Continue sertraline and clonazepam Seizure disorder Continue Keppra Hypotension Continue medication on dialysis days Anemia Stable Receives Aranesp at dialysis Debility Chronically bedridden Pending placement at halfway Incontinence-associated dermatitis -Wound care instructions in place. -Bilateral heel float boots, ABD pad under straps to protect skin on top of boot Diastolic Congestive heart failure. Volume status managed by dialysis Atrial fibrillation Patient on Eliquis 2.5 milligrams twice a day and amiodarone 200 mg daily Secondary hyperparathyroidism, continue current dose of Calcitriol. VS,Fishbone, I+O VS, Fishbone, I+O Vital Signs Date Time Temp Pulse Resp B/P (MAP) Pulse Ox O2 Delivery O2 Flow Rate FiO2 04/02/21 10:10 16 04/02/21 09:05 5.0 28 04/02/21 06:07 97.9 81 123/49 (73) 99 Trach Collar I&O- Last 24 Hours up to 6 AM 04/02/21 06:00 Intake Total 840 ml Output Total 2000 ml Balance -1160 ml SANTY DUGAN DO Apr 02, 2021 16:53
[2021-04-02] MEDS: RAMELTEON 8 MG TAB (ROZEREM) PO SCH (21:50)
[2021-04-02] MEDS: PRAMIPEXOLE (MIRAPEX) 0.125 MG TAB PO SCH (21:50)
[2021-04-03] MEDS: SODIUM CHLORIDE HYPERTONIC 3% 15ML NEB SOL INH SCH ×4 (03:06→23:17)
[2021-04-03] MEDS: IPRATROPIUM 0.5MG/ALBUTEROL 2.5MG INH SOL UD 3ML (DUONEB) NEB PRN ×2 (03:07→23:17)
[2021-04-03 06:00] VITALS: BP 111/42
[2021-04-03] MEDS ORDERED: LIDOCAINE 1% SDV 5ML VIAL SC PRN (06:00)
[2021-04-03] MEDS: MIDODRINE 5 MG TAB PO SCH ×3 (07:36→17:25)
[2021-04-03] MEDS: BUDESONIDE 0.5 MG/2 ML INHALATION SUSPENSION INH SCH ×2 (07:41→19:50)
[2021-04-03] MEDS: FORMOTEROL FUMARATE 20 MCG/2 ML INHALATION SOLUTION (PERFOROMIST) INH SCH ×2 (07:41→19:50)
[2021-04-03] MEDS: IPRATROPIUM 0.5MG/ALBUTEROL 2.5MG INH SOL UD 3ML (DUONEB) NEB SCH ×4 (07:41→19:50)
[2021-04-03] MEDS: (RENVELA) SEVELAMER **CARBONate** 800 MG TAB PO SCH ×3 (08:00→17:26)
[2021-04-03] MEDS: DIMETHICONE 2% OINTMENT(VANICREAM) 70GM TUBE TOP SCH ×2 (09:00→21:39)
[2021-04-03 09:29] LABS: BASO # 0.1 10^3/uL (0.0-0.2); BASO % 0.6 % (0.0-1.0); EOS # 0.8 10^3/uL (0.0-0.5); EOS % 7.3 % (0.0-3.0); HEMATOCRIT 31.4 % (42.0-52.0); HEMOGLOBIN 8.9 g/dl (13.5-17.5); LYMPH # 1.6 10^3/uL (1.5-5.0); LYMPH % 14.7 % (24.0-44.0); MEAN CORPUSCULAR HEMOGLOBIN 26.5 pg (27.0-33.0); MEAN CORPUSCULAR HGB CONC 28.3 g/dl (32.0-36.5); MEAN CORPUSCULAR VOLUME 93.5 fl (80.0-96.0); MONO # 0.5 10^3/uL (0.0-0.8); MONO % 4.7 % (2.0-8.0); NEUTROPHILS # 7.8 10^3/uL (1.5-8.5); NEUTROPHILS % 72.2 % (36.0-66.0); PLATELET COUNT, AUTOMATED 162 10^3/uL (150-450); RED BLOOD COUNT 3.36 10^6/uL (4.30-6.10); WHITE BLOOD COUNT 10.9 10^3/uL (4.0-10.0)
[2021-04-03 09:57] LABS: CREATININE FOR GFR 7.52 MG/DL (0.70-1.30); GLOMERULAR FILTRATION RATE 8.2 (>60); PHOSPHORUS LEVEL 8.4 MG/DL (2.5-4.9); POTASSIUM SERUM 5.5 MEQ/L (3.5-5.1)
[2021-04-03] MEDS ORDERED: IRON SUCROSE 100MG 5ML VIAL (J1756 PER 1MG) IV SCH (11:55)
[2021-04-03] MEDS: VITAMIN D 1,000 INTERNATIONAL UNITS TABLET PO SCH (13:32)
[2021-04-03] MEDS: PANTOPRAZOLE 40MG TAB (PROTONIX) PO SCH (13:33)
[2021-04-03] MEDS: CALCITRIOL 0.25 MCG CAP (S0169) PO SCH (13:33)
[2021-04-03] MEDS: APIXABAN 2.5 MG TAB (ELIQUIS) PO SCH ×2 (13:33→21:37)
[2021-04-03] MEDS: levETIRAcetam 250MG TABLET (KEPPRA) PO SCH (13:33)
[2021-04-03] MEDS: AMIODARONE 200 MG TAB (PACERONE) PO SCH (13:33)
[2021-04-03] MEDS: SERTRALINE 100 MG TAB PO SCH (13:33)
[2021-04-03] MEDS: NYSTATIN 100,000 UNITS/GM TOPICAL PWD 15 GM TOP SCH ×2 (13:37→21:39)
[2021-04-03] MEDS: RAMELTEON 8 MG TAB (ROZEREM) PO SCH (21:37)
[2021-04-03] MEDS: clonazePAM 0.5 MG TAB PO PRN (21:37)
[2021-04-03] MEDS: PRAMIPEXOLE (MIRAPEX) 0.125 MG TAB PO SCH (21:37)
[2021-04-03] MEDS: oxyCODONE 5MG TAB PO PRN (21:39)
--- NOTE | 2021-04-03 23:54 | IPN ---
NEPHROLOGY PROGRESS NOTE DATE: 04/03/2021 SUBJECTIVE: Patient was seen and examined at the bedside today morning during hemodialysis procedure. He is tolerating the hemodialysis procedure well. He denies any active complaints at this time. OBJECTIVE: VITAL SIGNS: Temperature 95.1 degrees Fahrenheit, blood pressure 111/42, pulse 54, respiratory rate 20, saturating 99% on trach collar at 5 liters. INTAKE/OUTPUT: Urine output is not recorded. Weight in the bed scale is not available. PHYSICAL EXAMINATION: GENERAL: Patient is awake, alert, oriented x3, lying in bed getting hemodialysis done. HEAD/NECK: Extraocular muscles intact. Pupils equally round and reactive to light. Neck is supple. He has a trach collar. CARDIOVASCULAR: S1, S2, regular rate. 1+ edema of the thighs. RESPIRATORY: He is trach dependent, otherwise chest is clear to auscultation bilaterally. ABDOMEN: Soft, positive bowel sounds. Abdominal wall edema is noted. MUSCULOSKELETAL: Decreased range of movement of both legs. He has Waffle boots on the legs. 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 LABORATORY REVIEW: CBC showed WBC 10.9, hemoglobin 8.9, platelets 162,000. BMP showed sodium 134, potassium 5.5, chloride 99, bicarb 24, BUN 69, creatinine 7.5. Phosphorus 8.4. CURRENT INPATIENT MEDICATIONS: Patient's medications were all reviewed by myself. There is no significant change in the medications. I have started the patient on Venofer 100 mg I.V. with hemodialysis. ASSESSMENT AND PLAN: 1. End-stage renal disease: Patient is being dialyzed according to his regular schedule, ultrafiltration goal is 3 liters as tolerated by his blood pressure. 2. Anemia and end-stage renal disease: Patient is already on Aranesp. I have started him on Venofer with dialysis because hemoglobin is suboptimal. 3. Hyperkalemia: Patient is being dialyzed with a 2K bath. Potassium should improve with that. 4. Hyperphosphatemia: Patient is noncompliant with the phosphorus binders, continue current dose of Renvela. 5. Secondary hyperparathyroidism: Continue Calcitriol 0.25 mcg p.o. five days a week. 6. Chronic hypotension: Continue current dose of Midodrine 10 mg p.o. three times a day.
[2021-04-04] MEDS: SODIUM CHLORIDE HYPERTONIC 3% 15ML NEB SOL INH SCH ×5 (03:38→20:43)
[2021-04-04] MEDS: IPRATROPIUM 0.5MG/ALBUTEROL 2.5MG INH SOL UD 3ML (DUONEB) NEB PRN (03:38)
[2021-04-04 04:56] VITALS: BP 116/57
[2021-04-04] MEDS: FORMOTEROL FUMARATE 20 MCG/2 ML INHALATION SOLUTION (PERFOROMIST) INH SCH ×2 (07:28→20:43)
[2021-04-04] MEDS: BUDESONIDE 0.5 MG/2 ML INHALATION SUSPENSION INH SCH ×2 (07:29→20:43)
[2021-04-04] MEDS: IPRATROPIUM 0.5MG/ALBUTEROL 2.5MG INH SOL UD 3ML (DUONEB) NEB SCH ×4 (07:29→20:43)
[2021-04-04] MEDS: MIDODRINE 5 MG TAB PO SCH ×4 (08:00→16:00)
[2021-04-04] MEDS: (RENVELA) SEVELAMER **CARBONate** 800 MG TAB PO SCH ×3 (08:00→17:31)
[2021-04-04] MEDS: SERTRALINE 100 MG TAB PO SCH (09:46)
[2021-04-04] MEDS: PANTOPRAZOLE 40MG TAB (PROTONIX) PO SCH (09:47)
[2021-04-04] MEDS: CALCITRIOL 0.25 MCG CAP (S0169) PO SCH (09:47)
[2021-04-04] MEDS: levETIRAcetam 250MG TABLET (KEPPRA) PO SCH (09:47)
[2021-04-04] MEDS: AMIODARONE 200 MG TAB (PACERONE) PO SCH (09:47)
[2021-04-04] MEDS: VITAMIN D 1,000 INTERNATIONAL UNITS TABLET PO SCH (09:47)
[2021-04-04] MEDS: APIXABAN 2.5 MG TAB (ELIQUIS) PO SCH ×2 (09:48→20:48)
[2021-04-04] MEDS: DIMETHICONE 2% OINTMENT(VANICREAM) 70GM TUBE TOP SCH ×2 (12:27→20:49)
[2021-04-04] MEDS: NYSTATIN 100,000 UNITS/GM TOPICAL PWD 15 GM TOP SCH ×2 (12:28→20:59)
--- NOTE | 2021-04-04 14:56 | CR ---
CONSULTATION DATE: 04/04/2021 Advance wound care consult via telemedicine. CONSULTATION REQUESTED BY: Dr. Jovanny Doty Wound care telemedicine provides a visual assessment of a wound without the benefit of physical examination. It can assist with establishing a diagnosis and an etiology. This allows for an initial treatment plan. As wounds often change, it may be necessary to modify the original care. Our recommendation is periodic wound reassessment to monitor wound treatment. Failure to comply may result in nonhealing of the wound, possible complications, and/or a poor outcome. The recommendations given will serve as treatment options. As I will not be following the patient, this care plan will require the attending physician to give and sign the orders. Patient identified verbal consent obtained. A 51-year-old male with multiple medical issues, most recently requiring a tracheostomy revision, performed in February 2021. Patient is developing a certified court/medical interpreter pressure injury on the submental aspect of his chin secondary to the positioning of the tracheostomy tube. The patient's neck is quite large, and he has required revision of his tracheostomy; therefore, the exact placement may not be ideal. TREATMENT RECOMMENDATIONS: As this is a pressure injury, the immediate treatment is to avoid or modify the pressure. As the tracheostomy is a mandatory condition, the next best option is to protect the wound with a foam dressing. This is to be changed on an every other day basis to monitor wound progress. Additionally, a 2 x 2 gauze can be placed on top of the foam and secured with a tape to provide additional padding. The submental region shows a 1.5 cm x 0.75 cm deep tissue injury versa a stage 2 pressure injury secondary to mechanical pressure from a certified court/medical interpreter. These have the potential for deteriorating into a full-thickness wound if not aggressively treated. Please feel free to re-consult to monitor progress. No indication for antibiotic therapy or any topical antimicrobial at this point. [facility]
[2021-04-04 20:44] VITALS: O2SAT 98
[2021-04-04] MEDS: RAMELTEON 8 MG TAB (ROZEREM) PO SCH (20:48)
[2021-04-04] MEDS: clonazePAM 0.5 MG TAB PO PRN (20:48)
[2021-04-04] MEDS: PRAMIPEXOLE (MIRAPEX) 0.125 MG TAB PO SCH (20:48)
[2021-04-04] MEDS: oxyCODONE 5MG TAB PO PRN (20:58)
[2021-04-05] MEDS: IPRATROPIUM 0.5MG/ALBUTEROL 2.5MG INH SOL UD 3ML (DUONEB) NEB PRN (00:30)
[2021-04-05] MEDS: SODIUM CHLORIDE HYPERTONIC 3% 15ML NEB SOL INH SCH ×6 (00:30→20:49)
[2021-04-05] MEDS: MIDODRINE 5 MG TAB PO SCH ×3 (05:23→17:30)
[2021-04-05] MEDS: levETIRAcetam 250MG TABLET (KEPPRA) PO SCH (05:24)
[2021-04-05] MEDS: PANTOPRAZOLE 40MG TAB (PROTONIX) PO SCH (05:24)
[2021-04-05] MEDS: clonazePAM 0.5 MG TAB PO PRN ×3 (05:25→22:11)
[2021-04-05] MEDS: APIXABAN 2.5 MG TAB (ELIQUIS) PO SCH ×2 (05:25→21:07)
[2021-04-05] MEDS: SERTRALINE 100 MG TAB PO SCH (05:25)
[2021-04-05] MEDS: VITAMIN D 1,000 INTERNATIONAL UNITS TABLET PO SCH (05:25)
[2021-04-05] MEDS: AMIODARONE 200 MG TAB (PACERONE) PO SCH (05:25)
[2021-04-05 06:00] VITALS: BP 111/53
[2021-04-05] MEDS ORDERED: LIDOCAINE 1% SDV 5ML VIAL SC PRN (06:00)
[2021-04-05] MEDS: BUDESONIDE 0.5 MG/2 ML INHALATION SUSPENSION INH SCH ×2 (07:12→20:49)
[2021-04-05] MEDS: FORMOTEROL FUMARATE 20 MCG/2 ML INHALATION SOLUTION (PERFOROMIST) INH SCH ×2 (07:12→20:49)
[2021-04-05] MEDS: IPRATROPIUM 0.5MG/ALBUTEROL 2.5MG INH SOL UD 3ML (DUONEB) NEB SCH ×4 (07:13→20:49)
[2021-04-05] MEDS: (RENVELA) SEVELAMER **CARBONate** 800 MG TAB PO SCH ×3 (08:00→17:30)
[2021-04-05] MEDS: NYSTATIN 100,000 UNITS/GM TOPICAL PWD 15 GM TOP SCH ×2 (08:05→21:08)
[2021-04-05] MEDS: DIMETHICONE 2% OINTMENT(VANICREAM) 70GM TUBE TOP SCH ×2 (08:05→21:09)
[2021-04-05] MEDS: DARBEPOETIN 200MCG/0.4ML *DIALYSIS* SYRINGE (J0882 PER 1MCG) IV SCH (08:09)
[2021-04-05] MEDS: IRON SUCROSE 100MG 5ML VIAL (J1756 PER 1MG) IV SCH (08:43)
[2021-04-05] MEDS: oxyCODONE 5MG TAB PO PRN ×2 (13:56→22:11)
--- NOTE | 2021-04-05 20:47 | IPN ---
PROGRESS NOTE DATE: 04/05/2021 SUBJECTIVE: The patient was seen and examined at the bedside today morning during hemodialysis procedure. He is tolerating the hemodialysis procedure well. He denies any active complaints. OBJECTIVE: VITAL SIGNS: Temperature is 100 degrees Fahrenheit. Blood pressure is 111/53, pulse 85, respiratory rate 18, saturating 95% on trach collar at 5 liters. INTAKE AND OUTPUT: There is no urine output recorded. Weight on the bed scale is not available. GENERAL: The patient is awake, alert, and oriented x3. Laying in bed getting hemodialysis done. HEAD AND NECK: Extraocular movements intact. Pupils are equally round and reactive to light. Neck is supple. He has a trach collar. CARDIOVASCULAR: S1, S2. Regular rate. 1+ edema of the bilateral thighs. RESPIRATORY: Chest is clear to auscultation bilaterally. He is trach dependent. ABDOMEN: Soft and obese with positive bowel sounds and nontender. No organomegaly. MUSCULOSKELETAL: No clubbing or cyanosis. Pulses are 2+. 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 LABORATORY REVIEW: There is no later CBC or BMP available. The latest labs are from 04/03. CURRENT INPATIENT MEDICATIONS: The patient's medications are all reviewed by myself. No significant change in the medications today. ASSESSMENT AND PLAN: 1. End-stage renal disease. The patient is being dialyzed according to his regular regimen. Ultrafiltration goal is around 2 to 3 kg as tolerated by his blood pressure. 2. Hypotension. Continue current dose of midodrine. Blood pressures are acceptable. 3. Anemia and end-stage renal disease. Hemoglobin is 8.9 on the latest labs. He continues to be on Aranesp 200 mcg and he was also started on Venofer with dialysis.
[2021-04-05 20:51] VITALS: O2SAT 96
[2021-04-05] MEDS: RAMELTEON 8 MG TAB (ROZEREM) PO SCH (21:07)
[2021-04-05] MEDS: PRAMIPEXOLE (MIRAPEX) 0.125 MG TAB PO SCH (21:07)
[2021-04-05 22:00] VITALS: BP 108/66
[2021-04-06] MEDS: SODIUM CHLORIDE HYPERTONIC 3% 15ML NEB SOL INH SCH ×6 (00:06→19:57)
[2021-04-06] MEDS: IPRATROPIUM 0.5MG/ALBUTEROL 2.5MG INH SOL UD 3ML (DUONEB) NEB PRN ×2 (00:06→05:19)
[2021-04-06] MEDS: ONDANSETRON 4 MG TAB PO PRN (00:22)
[2021-04-06 03:33] LABS: HEMATOCRIT 31.1 % (42.0-52.0); HEMOGLOBIN 9.1 g/dl (13.5-17.5); MEAN CORPUSCULAR HEMOGLOBIN 26.5 pg (27.0-33.0); MEAN CORPUSCULAR HGB CONC 29.3 g/dl (32.0-36.5); MEAN CORPUSCULAR VOLUME 90.7 fl (80.0-96.0); PLATELET COUNT, AUTOMATED 181 10^3/uL (150-450); RED BLOOD COUNT 3.43 10^6/uL (4.30-6.10); WHITE BLOOD COUNT 12.3 10^3/uL (4.0-10.0)
[2021-04-06 03:46] LABS: ALBUMIN 1.8 GM/DL (3.2-5.2); ALT/SGPT < 6 U/L (12-78); BILIRUBIN,TOTAL 0.7 MG/DL (0.2-1.0); BLOOD UREA NITROGEN 55 MG/DL (7-18); CALCIUM LEVEL 8.5 MG/DL (8.5-10.1); CARBON DIOXIDE LEVEL 25 MEQ/L (21-32); CHLORIDE LEVEL 99 MEQ/L (98-107); CREATININE FOR GFR 5.78 MG/DL (0.70-1.30); GLOMERULAR FILTRATION RATE 11.2 (>60); GLUCOSE, FASTING 106 MG/DL (70-100); POTASSIUM SERUM 5.1 MEQ/L (3.5-5.1); SODIUM LEVEL 134 MEQ/L (136-145); TOTAL PROTEIN 6.2 GM/DL (6.4-8.2)
[2021-04-06 06:00] VITALS: BP 123/66
[2021-04-06] MEDS: BUDESONIDE 0.5 MG/2 ML INHALATION SUSPENSION INH SCH ×2 (07:29→19:57)
[2021-04-06] MEDS: FORMOTEROL FUMARATE 20 MCG/2 ML INHALATION SOLUTION (PERFOROMIST) INH SCH ×2 (07:29→19:57)
[2021-04-06] MEDS: IPRATROPIUM 0.5MG/ALBUTEROL 2.5MG INH SOL UD 3ML (DUONEB) NEB SCH ×4 (07:29→19:57)
[2021-04-06] MEDS: SERTRALINE 100 MG TAB PO SCH (09:00)
[2021-04-06] MEDS: (RENVELA) SEVELAMER **CARBONate** 800 MG TAB PO SCH ×3 (09:00→18:26)
[2021-04-06] MEDS: APIXABAN 2.5 MG TAB (ELIQUIS) PO SCH ×2 (09:00→21:03)
[2021-04-06] MEDS: NYSTATIN 100,000 UNITS/GM TOPICAL PWD 15 GM TOP SCH (09:00)
[2021-04-06] MEDS: PANTOPRAZOLE 40MG TAB (PROTONIX) PO SCH (09:01)
[2021-04-06] MEDS: AMIODARONE 200 MG TAB (PACERONE) PO SCH (09:01)
[2021-04-06] MEDS: levETIRAcetam 250MG TABLET (KEPPRA) PO SCH (09:01)
[2021-04-06] MEDS: VITAMIN D 1,000 INTERNATIONAL UNITS TABLET PO SCH (09:01)
[2021-04-06] MEDS: oxyCODONE 5MG TAB PO PRN ×2 (09:05→21:04)
[2021-04-06] MEDS: clonazePAM 0.5 MG TAB PO PRN ×2 (09:05→21:03)
[2021-04-06] MEDS: MIDODRINE 5 MG TAB PO SCH ×3 (09:11→16:16)
[2021-04-06] MEDS: DIMETHICONE 2% OINTMENT(VANICREAM) 70GM TUBE TOP SCH ×2 (09:13→19:50)
[2021-04-06 19:58] VITALS: O2SAT 98
[2021-04-06] MEDS: PRAMIPEXOLE (MIRAPEX) 0.125 MG TAB PO SCH (21:03)
[2021-04-06] MEDS: RAMELTEON 8 MG TAB (ROZEREM) PO SCH (21:03)
[2021-04-06] MEDS: ACETAMINOPHEN TAB 650MG DOSE (2X325MG) PO PRN (21:03)
[2021-04-07] VITALS (23 sets, daily range): BP systolic 80–146; BP diastolic 42–84
[2021-04-07] MEDS: SODIUM CHLORIDE HYPERTONIC 3% 15ML NEB SOL INH SCH ×6 (00:46→19:25)
[2021-04-07] MEDS: IPRATROPIUM 0.5MG/ALBUTEROL 2.5MG INH SOL UD 3ML (DUONEB) NEB PRN (00:46)
[2021-04-07] MEDS: BUDESONIDE 0.5 MG/2 ML INHALATION SUSPENSION INH SCH ×2 (07:27→19:25)
[2021-04-07] MEDS: FORMOTEROL FUMARATE 20 MCG/2 ML INHALATION SOLUTION (PERFOROMIST) INH SCH ×2 (07:27→19:25)
[2021-04-07] MEDS: IPRATROPIUM 0.5MG/ALBUTEROL 2.5MG INH SOL UD 3ML (DUONEB) NEB SCH ×4 (07:28→19:26)
[2021-04-07] MEDS: (RENVELA) SEVELAMER **CARBONate** 800 MG TAB PO SCH ×3 (08:00→16:48)
[2021-04-07] MEDS: PANTOPRAZOLE 40MG TAB (PROTONIX) PO SCH (08:38)
[2021-04-07] MEDS: CALCITRIOL 0.25 MCG CAP (S0169) PO SCH (08:38)
[2021-04-07] MEDS: AMIODARONE 200 MG TAB (PACERONE) PO SCH (08:38)
[2021-04-07] MEDS: APIXABAN 2.5 MG TAB (ELIQUIS) PO SCH ×2 (08:39→21:43)
[2021-04-07] MEDS: levETIRAcetam 250MG TABLET (KEPPRA) PO SCH (08:39)
[2021-04-07] MEDS: VITAMIN D 1,000 INTERNATIONAL UNITS TABLET PO SCH (08:39)
[2021-04-07] MEDS: MIDODRINE 5 MG TAB PO SCH ×3 (08:39→16:00)
[2021-04-07] MEDS: DIMETHICONE 2% OINTMENT(VANICREAM) 70GM TUBE TOP SCH (08:39)
[2021-04-07] MEDS: SERTRALINE 100 MG TAB PO SCH (08:39)
[2021-04-07] MEDS: oxyCODONE 5MG TAB PO PRN (08:49)
[2021-04-07] MEDS ORDERED: AMIODARONE HCL 150 MG in IV 1 EA IV STA (19:57)
[2021-04-07] MEDS ORDERED: AMIODARONE 150MG/3ML INJ (J0282) IVP STA (20:01)
[2021-04-07] MEDS ORDERED: LIDOCAINE 2% INJ 100 MG/5 ML SYRINGE IV STA (20:08)
[2021-04-07] MEDS ORDERED: CALCIUM CHLORIDE 10% 1 GM/10 ML SYR IV STA (20:12)
[2021-04-07 20:21] LABS: HEMATOCRIT 36.7 % (42.0-52.0); HEMOGLOBIN 10.6 g/dl (13.5-17.5); MEAN CORPUSCULAR HGB CONC 28.9 g/dl (32.0-36.5); PLATELET COUNT, AUTOMATED 293 10^3/uL (150-450); RED BLOOD COUNT 4.08 10^6/uL (4.30-6.10); WHITE BLOOD COUNT 22.1 10^3/uL (4.0-10.0)
[2021-04-07] MEDS ORDERED: SOD POLYSTYRENE SULFONATE SUSP 15 GM/60 ML UD PO ONE (20:30)
[2021-04-07 20:45] LABS: ALBUMIN 2.2 GM/DL (3.2-5.2); ALT/SGPT < 6 U/L (12-78); BILIRUBIN,TOTAL 0.7 MG/DL (0.2-1.0); BLOOD UREA NITROGEN 72 MG/DL (7-18); CALCIUM LEVEL 9.4 MG/DL (8.5-10.1); CARBON DIOXIDE LEVEL 23 MEQ/L (21-32); CHLORIDE LEVEL 97 MEQ/L (98-107); CREATININE FOR GFR 7.44 MG/DL (0.70-1.30); GLOMERULAR FILTRATION RATE 8.3 (>60); GLUCOSE, FASTING 104 MG/DL (70-100); SODIUM LEVEL 129 MEQ/L (136-145); TOTAL PROTEIN 7.6 GM/DL (6.4-8.2); TROPONIN I < 0.02 NG/ML (< 0.10)
[2021-04-07] MEDS: RAMELTEON 8 MG TAB (ROZEREM) PO SCH (21:00)
[2021-04-07] MEDS: PRAMIPEXOLE (MIRAPEX) 0.125 MG TAB PO SCH (21:43)
[2021-04-07] MEDS ORDERED: NS 500 ML IV ONE (21:55)
--- NOTE | 2021-04-07 22:05 | REPVR ---
PROCEDURE INFORMATION: Exam: XR Chest Exam date and time: 04/07/2021 8:58 PM Age: 51 years old Clinical indication: Other: Stridor TECHNIQUE: Imaging protocol: XR of the chest. Views: 1 view. COMPARISON: [facility] PORTABLE CHEST X-RAY 03/29/2021 1:37 PM FINDINGS: Tubes, catheters and devices: A tracheostomy tube remains in position. Lungs: Minimal left base infiltrate or atelectasis. Pleural spaces: Minimal right pleural effusion since the prior study. Heart/Mediastinum: Persistent cardiomegaly. Bones/joints: Unremarkable. Soft tissues: There are moderately generous overlying soft tissues. IMPRESSION: 1. Minimal right pleural effusion and minimal left base infiltrate or atelectasis since 03/29/2021. 2. Otherwise stable chest. Electronically signed by: Isaiah Escalante On 04/07/2021 22:05:44 PM
[2021-04-07 22:14] LABS: ABG BASE EXCESS -6.3 (-2.0-2.0); ABG HCO3 19.9 MEQ/L (22.0-26.0); ABG O2 SATURATION 97.5 % (95.0-99.0); ABG PARTIAL PRESSURE CO2 42.3 mmHg (35.0-45.0); ABG PARTIAL PRESSURE O2 113.2 mmHg (75.0-100.0); ABG STANDARD HCO3 19.3 MEQ/L (22.0-26.0); ABG TOTAL CO2 21.2 MEQ/L (22.0-29.0)
[2021-04-08] VITALS (18 sets, daily range): BP systolic 99–145; BP diastolic 50–78
[2021-04-08] MEDS: SODIUM CHLORIDE HYPERTONIC 3% 15ML NEB SOL INH SCH ×7 (00:45→19:31)
--- NOTE | 2021-04-08 01:19 | IPNPDOC ---
Text Note Date of Service The patient was seen on 04/07/21. NOTE Alerted at 1930 on 04/07 that patients hr acutely elevated to 180s-190s. Upon examination of the patient, he was somnolent but arousable. He did not readily answer questions asked of him. He appeared diaphoretic. O2 saturation at this time found to be in the low 80s/high 70s on normal 10L trach requirement. BP normal at 130/70, temp 100.8, glucose 107. Nursing staff was able to bring O2 sats up with BVM to tracheostomy. Rhythm strip at this time showed sustained ventricular tachycardia and rapid assessment code was called. Initially the patient was arousable but became unarousable, was noted to have Vtach on the monitor and underwent unsynchronized cardioversion. Per d/w he was given 1 push of amiodarone, followed by 1 push of lidocaine push before rhythm conversion. He also given calcium gluconate as vtach was suspected to be caused at this time by hyperkalemia as patient has not been dialyzed since Thursday 04/05. Per dw. the patient was given one dose of Kayexalate and will undergo dialysis scheduled tomorrow if there are no additional cardiac arrythmias tonight. The patient's MAP dropped to the 60s so small fluid bolus was ordered and the patient was moved to ICU for closer monitoring and telemetry. Both Betty and Rowdy were at the bedside. Total critical care time: 30 minutes. VS,Edubone, I+O VS, Fishbone, I+O Laboratory Tests 04/07/21 20:07 Vital Signs Date Time Temp Pulse Resp B/P (MAP) Pulse Ox O2 Delivery O2 Flow Rate FiO2 04/07/21 23:30 82 114/58 (76) 96 Trach Collar 10.0 40 04/07/21 20:24 99.2 24 I&O- Last 24 Hours up to 6 AM 04/08/21 06:00 Intake Total 560 ml Output Total 50 ml Balance 510 ml BRETT HANSEN Apr 08, 2021 01:19 GORAN MOCTEZUMA MD Apr 08, 2021 04:40
[2021-04-08 03:09] LABS: TROPONIN I < 0.02 NG/ML (< 0.10)
[2021-04-08] MEDS: IPRATROPIUM 0.5MG/ALBUTEROL 2.5MG INH SOL UD 3ML (DUONEB) NEB PRN (04:22)
--- NOTE | 2021-04-08 05:51 | ECGEPIP ---
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
[2021-04-08] MEDS: FORMOTEROL FUMARATE 20 MCG/2 ML INHALATION SOLUTION (PERFOROMIST) INH SCH ×2 (07:06→19:31)
[2021-04-08] MEDS: BUDESONIDE 0.5 MG/2 ML INHALATION SUSPENSION INH SCH ×2 (07:06→19:31)
[2021-04-08] MEDS ORDERED: LIDOCAINE 1% SDV 5ML VIAL SC PRN (07:40)
[2021-04-08] MEDS: IPRATROPIUM 0.5MG/ALBUTEROL 2.5MG INH SOL UD 3ML (DUONEB) NEB SCH ×4 (08:00→19:31)
[2021-04-08] MEDS: (RENVELA) SEVELAMER **CARBONate** 800 MG TAB PO SCH ×3 (08:00→17:56)
[2021-04-08] MEDS: MIDODRINE 5 MG TAB PO SCH ×4 (08:00→16:16)
[2021-04-08] MEDS: SERTRALINE 100 MG TAB PO SCH (08:07)
[2021-04-08] MEDS: clonazePAM 0.5 MG TAB PO PRN (08:07)
[2021-04-08] MEDS: levETIRAcetam 250MG TABLET (KEPPRA) PO SCH (08:08)
[2021-04-08] MEDS: oxyCODONE 5MG TAB PO PRN ×2 (08:09→20:14)
[2021-04-08] MEDS: VITAMIN D 1,000 INTERNATIONAL UNITS TABLET PO SCH (08:10)
[2021-04-08] MEDS: PANTOPRAZOLE 40MG TAB (PROTONIX) PO SCH (08:10)
[2021-04-08] MEDS: APIXABAN 2.5 MG TAB (ELIQUIS) PO SCH ×2 (08:11→20:09)
[2021-04-08] MEDS: AMIODARONE 200 MG TAB (PACERONE) PO SCH (08:12)
[2021-04-08] MEDS: CALCITRIOL 0.25 MCG CAP (S0169) PO SCH (08:39)
[2021-04-08] MEDS: DIMETHICONE 2% OINTMENT(VANICREAM) 70GM TUBE TOP SCH (08:40)
[2021-04-08] MEDS: IRON SUCROSE 100MG 5ML VIAL (J1756 PER 1MG) IV SCH (09:36)
--- NOTE | 2021-04-08 11:10 | IPNPDOC ---
Text Note Date of Service The patient was seen on 04/08/21. NOTE Subjective: Patient was seen and examined at bedside. Patient had a rapid assessment last evening with Dr. Earl at bedside working went into V. fib requiring unsynchronized cardioversion admission to the ICU this was thought likely to be triggered by hyperkalemia which was corrected today by hemodialysis. Patient tells me he is feeling well. He is back to his baseline denies any chest pain his breathing is unchanged from prior he was preoccupied playing a game on his ipad. Objective: GENERAL: Morbidly obese male. HEAD/NECK: PERRLA, EOMI CARDIOVASCULAR: S1, S2 RESPIRATORY: CTA ABDOMEN: Obese, positive bowel sounds, nontender. No organomegaly. MUSCULOSKELETAL: Decreased range of movement of lower extremities because he is chronically bedridden. KNOCKER OUT: No focal deficit. Awake. Able to communicate appropriately. Moves bilateral upper extremities. Lower extremities are weak because of bedridden status. Assessment/plan: Patient is 50 years old male with end-stage renal diseases on dialysis, chronic hypoxic hypercapnic respiratory failure secondary to restrictive lung diseases. He recently had trach replaced on 01/01/2021. He is a hemodialysis patient, being following by nephrology. Currently pending placement # v fib: occurred on 04/07/21 was likely triggered by hyperkalemia. Dr Earl at bedside rapid assessment, unsynchronized cardioversion and transferred to ICU for close monitoring. He did well and his potassium corrected after HD. Transferred back to med/surg. # Episodes of Acute on Chronic respiratory failure with hypoxia and hypercarbia: secondary to restrictive lung disease from his obesity, obesity hypoventilation. with acute metabolic encephalopathy due to hypercarbia during his prolonged hospitalization. # Morbid obesity/obstructive sleep apnea: Continue pressure support ventilation during sleep # ESRD on hemodialysis: Patient is being dialyzed according to his regular TTS schedule # Hypotension: Continue midodrine on dialysis days. # Anemia: Stable, monitor and transfuse if indicated. # Incontinence-associated dermatitis: Wound care instructions in place. Bilateral heel float boots, ABD pad under straps to protect skin on top of boot # Debility: Chronically bedridden. Pending placement at [facility] # CHFpEF: fluid status managed by HD # Chronically bedridden: Awaiting placement to [facility]. # Serious disorder: Keppra # Paroxysmal A. fib: Patient on Eliquis 2.5 milligrams twice a day and amiodarone 200 mg daily # Depression/anxiety: Sertraline and clonazepam # GERD: PPI # Severe spinal stenosis: Oxycodone as needed A Marisela Hospitalist Carlie HUTCHINS, I+O VSCarlie, I+O Laboratory Tests 04/07/21 20:07 04/08/21 02:29 Vital Signs Date Time Temp Pulse Resp B/P (MAP) Pulse Ox O2 Delivery O2 Flow Rate FiO2 04/08/21 09:15 69 16 138/75 (96) 99 Trach Collar 5.0 28 04/08/21 08:00 97.0 I&O- Last 24 Hours up to 6 AM 04/08/21 06:00 Intake Total 1060 ml Output Total 50 ml Balance 1010 ml KAYLA RIZVI MD Apr 08, 2021 11:10
[2021-04-08 15:24] LABS: CALCIUM LEVEL 9.1 MG/DL (8.5-10.1); CREATININE FOR GFR 5.01 MG/DL (0.70-1.30); GLOMERULAR FILTRATION RATE 13.2 (>60); POTASSIUM SERUM 4.2 MEQ/L (3.5-5.1)
[2021-04-08] MEDS ORDERED: PANTOPRAZOLE 40MG TAB (PROTONIX) PO SCH (15:50)
[2021-04-08] MEDS ORDERED: NYSTATIN 100,000 UNITS/GM TOPICAL PWD 15 GM TOP SCH (15:50)
[2021-04-08] MEDS ORDERED: AMIODARONE 200 MG TAB (PACERONE) PO SCH (15:50)
[2021-04-08] MEDS ORDERED: levETIRAcetam 250MG TABLET (KEPPRA) PO SCH (15:50)
[2021-04-08] MEDS ORDERED: SERTRALINE 100 MG TAB PO SCH (15:50)
[2021-04-08] MEDS ORDERED: guaiFENesin SYRUP 200 MG/10 ML UDC PO SCH (15:50)
[2021-04-08] MEDS ORDERED: PRAMIPEXOLE (MIRAPEX) 0.125 MG TAB PO SCH (15:50)
[2021-04-08] MEDS: RAMELTEON 8 MG TAB (ROZEREM) PO SCH (20:09)
[2021-04-08] MEDS: PRAMIPEXOLE (MIRAPEX) 0.125 MG TAB PO SCH (21:26)
--- NOTE | 2021-04-08 23:18 | IPN ---
PROGRESS NOTE DATE: 04/08/2021 SUBJECTIVE: Matthew is seen and examined this morning in the Intensive Care Unit receiving his maintenance hemodialysis treatment. He had a rapid response called last evening when he had ventricular tachycardia. He underwent unsynchronized cardioversion. He remembers receiving the shock. He was also given Amiodarone, Lidocaine and calcium gluconate and he also received a dose of Kayexalate as laboratory studies showed a potassium of 6.0. Patient has no complaints today, is playing on his IPAD while he is getting his dialysis treatment. PHYSICAL EXAMINATION: VITAL SIGNS: Temperature 97.7, pulse 68, respiratory rate 18, blood pressure 115/57, saturating 97% on trach collar. INTAKE/OUTPUT: Dialysis today removed 3 liters. Weight in the bed scale is 153.8 kg. GENERAL: Patient is seen lying in bed in the ICU receiving his treatment, morbidly obese bedbound male playing on his IPAD. HEENT: Extraocular muscles are intact. Tongue is moist. He has a tracheostomy. HEART: Sounds are regular, S1, S2. There is trace to 1+ dependent edema. CHEST: Anterior auscultation only. Symmetric air entry. Bilateral breath sounds. No crackles or rales. ABDOMEN: Soft, obese and nontender. EXTREMITIES: Show both feet in Waffle boots. There is a peripheral I.V. in the right leg and there is a right arm AV fistula presently in use. He moves the upper extremities on command. NEUROLOGIC: He is at baseline mentation. He attempts to communicate by mouthing. LABORATORY DATA: White count 22, hemoglobin 10.6, platelets 293,000. Sodium 134, potassium 6.0; repeat potassium this afternoon post dialysis 4.2, bicarbonate 23, calcium 9.1. Blood cultures drawn yesterday no growth for 24 hours. IMAGING STUDIES: Chest x-ray done yesterday shows minimal right pleural effusion. INPATIENT MEDICATIONS: As noted previously, he got a dose of Amiodarone, a dose of Lidocaine and calcium gluconate along with Kayexalate yesterday evening. The remainder of his medications are unchanged as compared to prior. PROBLEMS: 1. End-stage renal disease on hemodialysis on a Wednesday, , Wednesday schedule: He was dialyzed today. He was significantly hyperkalemic pre-dialysis. We adjusted the potassium in the dialysis bath accordingly. 3 liters were removed. His fistula is in good use. His volume status is stable. Next dialysis will be on . 2. Hyperkalemia: It is due to patient's chronic renal failure and the fact that he does not follow a renal diet. He does not follow potassium restriction. He is constantly eating snacks and ordering food through [employer], etc. type of services. He received low potassium bath dialysis today. His post dialysis potassium came down to 4.2. 3. Anemia of chronic renal failure: Hemoglobin is at goal (10.6 on the latest labs) and he continues on Aranesp and iron with dialysis. 4. Secondary hyperparathyroidism of renal origin: He has not had a parathyroid hormone level drawn in about 6 weeks and I will add one on to the labs today. He continues to refuse frequent doses of his phosphorus binder. 5. Status post episode of VTACH with subsequent unsynchronized cardioversion: His potassium has corrected post dialysis. Unfortunately he does not comply with renal diet and potassium prescription. I am not surprised that this event occurred on a Wednesday evening as that is his longest stretch between dialysis treatments. 6. Hypotension: Continue Midodrine on dialysis days.
[2021-04-09] MEDS: IPRATROPIUM 0.5MG/ALBUTEROL 2.5MG INH SOL UD 3ML (DUONEB) NEB PRN ×3 (01:04→23:55)
[2021-04-09] MEDS: SODIUM CHLORIDE HYPERTONIC 3% 15ML NEB SOL INH SCH ×6 (03:15→23:54)
[2021-04-09 04:49] VITALS: BP 104/45
[2021-04-09 05:48] LABS: CALCIUM LEVEL 8.2 MG/DL (8.5-10.1); CREATININE FOR GFR 5.57 MG/DL (0.70-1.30); GLOMERULAR FILTRATION RATE 11.7 (>60); POTASSIUM SERUM 4.6 MEQ/L (3.5-5.1)
[2021-04-09] MEDS: BUDESONIDE 0.5 MG/2 ML INHALATION SUSPENSION INH SCH ×2 (07:18→19:47)
[2021-04-09] MEDS: FORMOTEROL FUMARATE 20 MCG/2 ML INHALATION SOLUTION (PERFOROMIST) INH SCH ×2 (07:18→19:47)
[2021-04-09] MEDS: IPRATROPIUM 0.5MG/ALBUTEROL 2.5MG INH SOL UD 3ML (DUONEB) NEB SCH ×4 (07:18→19:48)
[2021-04-09 08:06] VITALS: BP 116/56
[2021-04-09] MEDS: APIXABAN 2.5 MG TAB (ELIQUIS) PO SCH ×2 (09:32→21:57)
[2021-04-09] MEDS: oxyCODONE 5MG TAB PO PRN (09:32)
[2021-04-09] MEDS: (RENVELA) SEVELAMER **CARBONate** 800 MG TAB PO SCH ×4 (09:32→17:48)
[2021-04-09] MEDS: PANTOPRAZOLE 40MG TAB (PROTONIX) PO SCH (09:32)
[2021-04-09] MEDS: CALCITRIOL 0.25 MCG CAP (S0169) PO SCH (09:32)
[2021-04-09] MEDS: SERTRALINE 100 MG TAB PO SCH (09:33)
[2021-04-09] MEDS: VITAMIN D 1,000 INTERNATIONAL UNITS TABLET PO SCH (09:33)
[2021-04-09] MEDS: MIDODRINE 5 MG TAB PO SCH ×3 (09:33→16:39)
[2021-04-09] MEDS: AMIODARONE 200 MG TAB (PACERONE) PO SCH (09:33)
[2021-04-09] MEDS: levETIRAcetam 250MG TABLET (KEPPRA) PO SCH (09:33)
[2021-04-09] MEDS: DIMETHICONE 2% OINTMENT(VANICREAM) 70GM TUBE TOP SCH (09:34)
[2021-04-09 12:03] LABS: PTH INTACT 423.2 PG/ML (18.5-88.0)
[2021-04-09 12:22] VITALS: BP 100/49
--- NOTE | 2021-04-09 12:47 | ECHO ---
ECHOCARDIOGRAM DATE OF PROCEDURE: 04/08/2021 Age: Gender: Height: 191 cm Weight: 155 kg REFERRING PHYSICIAN: Dr. Ragini Reno. INDICATION: Cardiac dysrhythmia. MEASUREMENTS: IVS 1.5 cm LV 5.7 cm LVPW 1.6 cm LA 5.4 cm Aorta 3.5 cm IVC 2.0 cm Mitral E wave velocity 98 A wave 69 E prime septal 6.9 E prime lateral 7.0 FINDINGS: This study is of limited technical quality corresponding to patient's body habitus. Underlying sinus rhythm. Left ventricle is mildly dilated. Moderate left ventricle hypertrophy is noted. Overall preserved LV systolic function based on limited views. I estimate EF around 60%. Right ventricle appears to have normal function but appears at least mildly enlarged. Both atria are enlarged. Aortic valve appears normal. Mitral valve also appears normal. Tricuspid and pulmonic valves were not visualized. Trivial pericardial effusion and small pericardial fat pad are noted. Inferior vena cava is upper limits of normal size and minimally collapses with inspiration indicative of likely high central venous pressure. Aortic root is normal. Aortic arch and abdominal aorta were not seen. Doppler interrogation reveals competent aortic and mitral valves. Mitral inflow pattern and tissue Doppler imaging of mitral annulus revealed grade 2 diastolic dysfunction. CONCLUSIONS: 1. Study is of rather limited technical quality corresponding to patient's body habitus. Underlying sinus rhythm. 2. Mildly dilated left ventricle with moderate LVH and overall preserved LV systolic function. Grade 2 diastolic dysfunction. 3. Dilated but probably normally contractile RV. 4. Normal aortic and mitral valves. 5. Right-sided heart valves were not well seen. 6. High central venous pressure. 7. Unable to estimate pulmonary artery pressure. 8. Trivial pericardial effusion. MTDD
[2021-04-09 15:18] VITALS: BP 105/53
[2021-04-09] MEDS: RAMELTEON 8 MG TAB (ROZEREM) PO SCH (21:56)
[2021-04-09] MEDS: ACETAMINOPHEN TAB 650MG DOSE (2X325MG) PO PRN (21:56)
[2021-04-09] MEDS: PRAMIPEXOLE (MIRAPEX) 0.125 MG TAB PO SCH (21:57)
[2021-04-09 22:00] VITALS: BP 130/54
[2021-04-10] MEDS: SODIUM CHLORIDE HYPERTONIC 3% 15ML NEB SOL INH SCH ×5 (04:24→19:45)
[2021-04-10] MEDS: IPRATROPIUM 0.5MG/ALBUTEROL 2.5MG INH SOL UD 3ML (DUONEB) NEB PRN (04:25)
[2021-04-10] MEDS: DIMETHICONE 2% OINTMENT(VANICREAM) 70GM TUBE TOP SCH (06:16)
[2021-04-10] MEDS: levETIRAcetam 250MG TABLET (KEPPRA) PO SCH (06:17)
[2021-04-10] MEDS: SERTRALINE 100 MG TAB PO SCH (06:17)
[2021-04-10] MEDS: APIXABAN 2.5 MG TAB (ELIQUIS) PO SCH ×2 (06:17→21:04)
[2021-04-10] MEDS: CALCITRIOL 0.25 MCG CAP (S0169) PO SCH (06:17)
[2021-04-10] MEDS: PANTOPRAZOLE 40MG TAB (PROTONIX) PO SCH (06:17)
[2021-04-10] MEDS: AMIODARONE 200 MG TAB (PACERONE) PO SCH (06:17)
[2021-04-10] MEDS: VITAMIN D 1,000 INTERNATIONAL UNITS TABLET PO SCH (06:19)
[2021-04-10] MEDS: BUDESONIDE 0.5 MG/2 ML INHALATION SUSPENSION INH SCH ×2 (07:10→19:45)
[2021-04-10] MEDS: IPRATROPIUM 0.5MG/ALBUTEROL 2.5MG INH SOL UD 3ML (DUONEB) NEB SCH ×4 (07:10→19:45)
[2021-04-10] MEDS: FORMOTEROL FUMARATE 20 MCG/2 ML INHALATION SOLUTION (PERFOROMIST) INH SCH ×2 (07:11→19:45)
[2021-04-10] MEDS ORDERED: LIDOCAINE 1% SDV 5ML VIAL SC PRN (07:40)
[2021-04-10] MEDS ORDERED: SODIUM CHLORIDE 0.9% 1000ML IV PRN (07:40)
[2021-04-10] MEDS: (RENVELA) SEVELAMER **CARBONate** 800 MG TAB PO SCH ×3 (08:00→18:03)
[2021-04-10] MEDS: MIDODRINE 5 MG TAB PO SCH ×3 (08:31→18:03)
[2021-04-10] MEDS: oxyCODONE 5MG TAB PO PRN ×2 (08:35→21:04)
[2021-04-10] MEDS: IRON SUCROSE 100MG 5ML VIAL (J1756 PER 1MG) IV SCH (09:04)
[2021-04-10 09:29] LABS: CALCIUM LEVEL 7.8 MG/DL (8.5-10.1); CREATININE FOR GFR 6.4 MG/DL (0.70-1.30); GLOMERULAR FILTRATION RATE 9.9 (>60); POTASSIUM SERUM 4.5 MEQ/L (3.5-5.1)
--- NOTE | 2021-04-10 14:22 | IPN ---
PROGRESS NOTE DATE: 04/10/2021 SUBJECTIVE: Matthew is seen and examined this morning in the hemodialysis unit receiving his maintenance treatment. He denies any complaints. He had soft blood pressures during hemodialysis, and we lowered his goal fluid removal down to 2.5 liters instead of his usual 3-liter fluid removal. He did receive midodrine predialysis. VITAL SIGNS: Temperature 96.3, pulse 70, respiratory rate 18, blood pressure 130/54, saturating 98% on trach collar. Intake yesterday was 2 liters. Weight in the bed scale today is not recorded. GENERAL: Patient is seen awake, alert, playing on his iPad receiving his hemodialysis treatment in no distress. Extraocular muscles are intact. Tongue is moist. He is status tracheostomy. HEART: Sounds are regular, S1, S2. LUNGS: Anterior auscultation only. Symmetric breath sounds. No wheezes. ABDOMEN: Very obese, soft, nontender. EXTREMITIES: His feet are in waffle boots. There is a fistula in the right arm, which is patent and in use. NEUROLOGIC: He is at his baseline mentation. Attempts to communicate by mouthing. Playing on the iPad. Cooperative with physical exam. Moves upper extremities on command. LABORATORY STUDIES: Most recently were done today. Sodium 133, potassium 4.5, bicarbonate 21, BUN 60. Parathyroid hormone level 423. INPATIENT MEDICATIONS: Reviewed by myself, and no changes noted over the past 48 hours. PROBLEMS: 1. End-stage renal disease, on hemodialysis on a Wednesday, , Wednesday schedule. Patient was dialyzed today. There was 2.5 liters of fluid removed. His blood pressures were a little soft and did not allow for 3 liter fluid removal. He continues on midodrine 10 mg three times a day for chronic hypotension along with hypotension of hemodialysis. 2. Anemia of chronic renal failure. Today he received the third dose of Venofer with dialysis. His most recent hemoglobin was 10.6 and at goal. He continues on Aranesp. 3. Secondary hyperparathyroidism of renal origin. His parathyroid hormone level was checked for the month of March and found to be at goal. He continues on Renvela (he continues to refuse a significant amount of doses). He is also on vitamin D along with calcitriol. 4. Paroxysmal atrial fibrillation. The patient is anticoagulated with Eliquis. He has a history of recent ventricular tachycardia. He is on amiodarone. His electrolytes are checked intermittently. His potassium and magnesium are both optimized. 5. Chronic diastolic congestive heart failure. The patient had an echocardiogram done recently on April 08 because of cardiac dysrhythmia. He has grade 2 diastolic dysfunction. His volume status is regulated principally by hemodialysis, and we remove usually about 3 liters with each treatment. The patient is noncompliant with renal diet, low salt, fluid restriction.
[2021-04-10] MEDS: RAMELTEON 8 MG TAB (ROZEREM) PO SCH (21:03)
[2021-04-10] MEDS: PRAMIPEXOLE (MIRAPEX) 0.125 MG TAB PO SCH (21:04)
[2021-04-10] MEDS: ACETAMINOPHEN TAB 650MG DOSE (2X325MG) PO PRN (21:04)
[2021-04-11] MEDS: IPRATROPIUM 0.5MG/ALBUTEROL 2.5MG INH SOL UD 3ML (DUONEB) NEB PRN ×3 (00:25→23:25)
[2021-04-11] MEDS: SODIUM CHLORIDE HYPERTONIC 3% 15ML NEB SOL INH SCH ×7 (00:25→23:25)
[2021-04-11 06:00] VITALS: BP 136/67
[2021-04-11 06:48] LABS: CALCIUM LEVEL 7.9 MG/DL (8.5-10.1); CREATININE FOR GFR 5.31 MG/DL (0.70-1.30); GLOMERULAR FILTRATION RATE 12.3 (>60); POTASSIUM SERUM 4.2 MEQ/L (3.5-5.1)
[2021-04-11] MEDS: FORMOTEROL FUMARATE 20 MCG/2 ML INHALATION SOLUTION (PERFOROMIST) INH SCH ×2 (07:18→19:41)
[2021-04-11] MEDS: BUDESONIDE 0.5 MG/2 ML INHALATION SUSPENSION INH SCH ×2 (07:18→19:42)
[2021-04-11] MEDS: IPRATROPIUM 0.5MG/ALBUTEROL 2.5MG INH SOL UD 3ML (DUONEB) NEB SCH ×4 (07:19→19:42)
[2021-04-11] MEDS: MIDODRINE 5 MG TAB PO SCH ×3 (08:00→17:58)
[2021-04-11] MEDS: (RENVELA) SEVELAMER **CARBONate** 800 MG TAB PO SCH ×3 (08:00→17:58)
[2021-04-11] MEDS ORDERED: BACLOFEN 5MG PER 1/2 TABLET GT SCH (09:00)
[2021-04-11] MEDS: CALCITRIOL 0.25 MCG CAP (S0169) PO SCH (09:46)
[2021-04-11] MEDS: SERTRALINE 100 MG TAB PO SCH (09:47)
[2021-04-11] MEDS: AMIODARONE 200 MG TAB (PACERONE) PO SCH (09:47)
[2021-04-11] MEDS: levETIRAcetam 250MG TABLET (KEPPRA) PO SCH (09:47)
[2021-04-11] MEDS: PANTOPRAZOLE 40MG TAB (PROTONIX) PO SCH (09:47)
[2021-04-11] MEDS: APIXABAN 2.5 MG TAB (ELIQUIS) PO SCH ×2 (09:47→21:11)
[2021-04-11] MEDS: VITAMIN D 1,000 INTERNATIONAL UNITS TABLET PO SCH (09:47)
[2021-04-11] MEDS: DIMETHICONE 2% OINTMENT(VANICREAM) 70GM TUBE TOP SCH (09:48)
[2021-04-11] MEDS: oxyCODONE 5MG TAB PO PRN ×2 (11:20→21:11)
[2021-04-11] MEDS: BACLOFEN 5MG PER 1/2 TABLET PO SCH ×2 (15:44→21:11)
[2021-04-11] MEDS: RAMELTEON 8 MG TAB (ROZEREM) PO SCH (21:11)
[2021-04-11] MEDS: PRAMIPEXOLE (MIRAPEX) 0.125 MG TAB PO SCH (21:11)
[2021-04-12] MEDS: IPRATROPIUM 0.5MG/ALBUTEROL 2.5MG INH SOL UD 3ML (DUONEB) NEB PRN ×2 (04:39→23:33)
[2021-04-12] MEDS: SODIUM CHLORIDE HYPERTONIC 3% 15ML NEB SOL INH SCH ×6 (04:39→23:34)
[2021-04-12 06:00] VITALS: BP 131/52
[2021-04-12] MEDS: SERTRALINE 100 MG TAB PO SCH (06:32)
[2021-04-12] MEDS: VITAMIN D 1,000 INTERNATIONAL UNITS TABLET PO SCH (06:32)
[2021-04-12] MEDS: BACLOFEN 5MG PER 1/2 TABLET PO SCH ×3 (06:33→21:04)
[2021-04-12] MEDS: AMIODARONE 200 MG TAB (PACERONE) PO SCH (06:33)
[2021-04-12] MEDS: PANTOPRAZOLE 40MG TAB (PROTONIX) PO SCH (06:33)
[2021-04-12] MEDS: DIMETHICONE 2% OINTMENT(VANICREAM) 70GM TUBE TOP SCH (06:33)
[2021-04-12] MEDS: APIXABAN 2.5 MG TAB (ELIQUIS) PO SCH ×2 (06:33→21:05)
[2021-04-12] MEDS: levETIRAcetam 250MG TABLET (KEPPRA) PO SCH (06:33)
[2021-04-12] MEDS: oxyCODONE 5MG TAB PO PRN ×2 (07:50→21:04)
[2021-04-12] MEDS: MIDODRINE 5 MG TAB PO SCH ×3 (07:51→16:00)
[2021-04-12] MEDS: (RENVELA) SEVELAMER **CARBONate** 800 MG TAB PO SCH ×3 (07:52→18:25)
[2021-04-12] MEDS: FORMOTEROL FUMARATE 20 MCG/2 ML INHALATION SOLUTION (PERFOROMIST) INH SCH ×2 (07:57→19:56)
[2021-04-12] MEDS: BUDESONIDE 0.5 MG/2 ML INHALATION SUSPENSION INH SCH ×2 (07:57→19:56)
[2021-04-12] MEDS: IPRATROPIUM 0.5MG/ALBUTEROL 2.5MG INH SOL UD 3ML (DUONEB) NEB SCH ×4 (08:00→19:56)
[2021-04-12] MEDS: DARBEPOETIN 200MCG/0.4ML *DIALYSIS* SYRINGE (J0882 PER 1MCG) IV SCH (10:52)
[2021-04-12] MEDS: IRON SUCROSE 100MG 5ML VIAL (J1756 PER 1MG) IV SCH (12:03)
--- NOTE | 2021-04-12 12:34 | IPN ---
NEPHROLOGY PROGRESS NOTE DATE: 04/12/2021 SUBJECTIVE: Mr. Richard is seen this morning during hemodialysis. He was complaining of some discomfort in his anterior chest wall, however it did improved. Nursing staff reports that he did get Percocet at 8:00 a.m. this morning. He did have breakfast during dialysis. His chronic dyspnea is unchanged and he remains on a trach collar. He has no fever or chills and denies any nausea or abdominal pain. OBJECTIVE: PHYSICAL EXAMINATION: VITAL SIGNS: Temperature 98.1 degrees Fahrenheit, heart rate 68 per minute and respiratory rate 20 per minute. Blood pressure was 130/52 mm of mercury at the start and is now 100/50 mm of mercury. Oxygen saturation is 98% on 5 liters oxygen via trach collar. HEENT: Head is atraumatic. NECK: Tracheostomy is in place and neck veins cannot be assessed. HEART: Distant but regular. LUNGS: Moderate bilateral air entry. ABDOMEN: Obese and nontender. EXTREMITIES: Without any cyanosis or clubbing. Right arm AV fistula is currently being used for dialysis. He has bilateral lower extremity plegia with ulcers on his legs and feet. Both feet are in a foam boot. NEUROLOGICAL: He is awake and able to answer questions. LABORATORY STUDIES: No new labs done today. Yesterday his sodium was 135 and potassium 4.2, BUN was 51 and creatinine 5.31. PROBLEMS: 1. End-stage renal disease - This patient is being dialyzed today and he is tolerating dialysis treatments reasonably well. 2. Hypotension this is a chronic issue and he remains on Midodrine 10 mg three times daily. His blood pressure is soft during dialysis and we have cut back on the goal for ultrafiltration. 3. Anemia his anemia has been stable with last hemoglobin 10.6 on April 07. We will order a CBC for next week. 4. Respiratory failure this is a chronic issue related to obstructive sleep apnea and obesity associated hypoventilation. He also has chronic obstructive pulmonary disease and a history of congestive heart failure. At present his volume status is reasonably well compensated and we are trying to remove as much fluid as he could tolerate. We started with 3 liters but had to cut back to 2.5 liters now because of low blood pressure. 5. History of cardiac arrhythmias - The patient recently was transferred to the Intensive Care Unit and does have a history of paroxysmal atrial fibrillation. He also had recent ventricular tachycardia and currently seems to be in sinus rhythm with a well controlled heart rate. MEDICATIONS: The patient's medications were reviewed and no changes are noted in the last 24 hours. He remains on Eliquis 2.5 mg twice daily and Amiodarone 200 mg daily.
[2021-04-12] MEDS: clonazePAM 0.5 MG TAB PO PRN (21:05)
[2021-04-12] MEDS: RAMELTEON 8 MG TAB (ROZEREM) PO SCH (21:05)
[2021-04-12] MEDS: PRAMIPEXOLE (MIRAPEX) 0.125 MG TAB PO SCH (21:05)
[2021-04-13] MEDS: IPRATROPIUM 0.5MG/ALBUTEROL 2.5MG INH SOL UD 3ML (DUONEB) NEB PRN (03:13)
[2021-04-13] MEDS: SODIUM CHLORIDE HYPERTONIC 3% 15ML NEB SOL INH SCH ×5 (03:13→20:16)
[2021-04-13 06:00] VITALS: BP 130/50
[2021-04-13] MEDS: FORMOTEROL FUMARATE 20 MCG/2 ML INHALATION SOLUTION (PERFOROMIST) INH SCH ×2 (07:35→20:16)
[2021-04-13] MEDS: IPRATROPIUM 0.5MG/ALBUTEROL 2.5MG INH SOL UD 3ML (DUONEB) NEB SCH ×4 (07:35→20:16)
[2021-04-13] MEDS: BUDESONIDE 0.5 MG/2 ML INHALATION SUSPENSION INH SCH ×2 (07:35→20:16)
[2021-04-13] MEDS: (RENVELA) SEVELAMER **CARBONate** 800 MG TAB PO SCH ×3 (08:00→18:59)
[2021-04-13] MEDS: MIDODRINE 5 MG TAB PO SCH ×3 (08:00→16:40)
[2021-04-13] MEDS: APIXABAN 2.5 MG TAB (ELIQUIS) PO SCH ×2 (08:20→21:20)
[2021-04-13] MEDS: PANTOPRAZOLE 40MG TAB (PROTONIX) PO SCH (08:20)
[2021-04-13] MEDS: AMIODARONE 200 MG TAB (PACERONE) PO SCH (08:21)
[2021-04-13] MEDS: VITAMIN D 1,000 INTERNATIONAL UNITS TABLET PO SCH (08:21)
[2021-04-13] MEDS: BACLOFEN 5MG PER 1/2 TABLET PO SCH ×3 (08:21→21:20)
[2021-04-13] MEDS: levETIRAcetam 250MG TABLET (KEPPRA) PO SCH (08:21)
[2021-04-13] MEDS: SERTRALINE 100 MG TAB PO SCH (08:21)
[2021-04-13] MEDS: DIMETHICONE 2% OINTMENT(VANICREAM) 70GM TUBE TOP SCH (08:22)
[2021-04-13 20:18] VITALS: O2SAT 96
[2021-04-13] MEDS: PRAMIPEXOLE (MIRAPEX) 0.125 MG TAB PO SCH (21:20)
[2021-04-13] MEDS: RAMELTEON 8 MG TAB (ROZEREM) PO SCH (21:20)
[2021-04-13] MEDS: clonazePAM 0.5 MG TAB PO PRN (21:20)
[2021-04-13] MEDS: oxyCODONE 5MG TAB PO PRN (21:20)
[2021-04-14] MEDS: SODIUM CHLORIDE HYPERTONIC 3% 15ML NEB SOL INH SCH ×6 (00:10→21:37)
[2021-04-14] MEDS: IPRATROPIUM 0.5MG/ALBUTEROL 2.5MG INH SOL UD 3ML (DUONEB) NEB PRN ×2 (00:12→04:07)
[2021-04-14 06:00] VITALS: BP 128/60
[2021-04-14] MEDS: FORMOTEROL FUMARATE 20 MCG/2 ML INHALATION SOLUTION (PERFOROMIST) INH SCH ×2 (07:30→21:37)
[2021-04-14] MEDS: IPRATROPIUM 0.5MG/ALBUTEROL 2.5MG INH SOL UD 3ML (DUONEB) NEB SCH ×4 (07:30→21:37)
[2021-04-14] MEDS: BUDESONIDE 0.5 MG/2 ML INHALATION SUSPENSION INH SCH ×2 (07:30→21:37)
[2021-04-14] MEDS: MIDODRINE 5 MG TAB PO SCH ×3 (08:00→16:00)
[2021-04-14] MEDS: (RENVELA) SEVELAMER **CARBONate** 800 MG TAB PO SCH ×3 (08:00→18:00)
[2021-04-14] MEDS: VITAMIN D 1,000 INTERNATIONAL UNITS TABLET PO SCH (09:00)
[2021-04-14] MEDS: APIXABAN 2.5 MG TAB (ELIQUIS) PO SCH ×2 (09:00→20:03)
[2021-04-14] MEDS: PANTOPRAZOLE 40MG TAB (PROTONIX) PO SCH (09:00)
[2021-04-14] MEDS: levETIRAcetam 250MG TABLET (KEPPRA) PO SCH (09:00)
[2021-04-14] MEDS: CALCITRIOL 0.25 MCG CAP (S0169) PO SCH (09:00)
[2021-04-14] MEDS: AMIODARONE 200 MG TAB (PACERONE) PO SCH (09:00)
[2021-04-14] MEDS: DIMETHICONE 2% OINTMENT(VANICREAM) 70GM TUBE TOP SCH (09:00)
[2021-04-14] MEDS: SERTRALINE 100 MG TAB PO SCH (09:00)
[2021-04-14 10:00] VITALS: BP 154/80
[2021-04-14 10:52] LABS: ABG BASE EXCESS -5.3 (-2.0-2.0); ABG HCO3 20.1 MEQ/L (22.0-26.0); ABG O2 SATURATION 95.9 % (95.0-99.0); ABG PARTIAL PRESSURE CO2 38.3 mmHg (35.0-45.0); ABG PARTIAL PRESSURE O2 88.9 mmHg (75.0-100.0); ABG STANDARD HCO3 20.1 MEQ/L (22.0-26.0); ABG TOTAL CO2 21.2 MEQ/L (22.0-29.0); ABG pH (ARTERIAL) 7.337 UNITS (7.350-7.450)
[2021-04-14 10:59] LABS: BASO % 0.1 % (0.0-1.0); EOS # 0.3 10^3/uL (0.0-0.5); EOS % 2.1 % (0.0-3.0); HEMATOCRIT 31.7 % (42.0-52.0); HEMOGLOBIN 9.5 g/dl (13.5-17.5); LYMPH # 1.3 10^3/uL (1.5-5.0); LYMPH % 8.6 % (24.0-44.0); MEAN CORPUSCULAR HEMOGLOBIN 26.4 pg (27.0-33.0); MEAN CORPUSCULAR VOLUME 88.1 fl (80.0-96.0); MONO # 0.7 10^3/uL (0.0-0.8); MONO % 4.5 % (2.0-8.0); NEUTROPHILS # 12.5 10^3/uL (1.5-8.5); NEUTROPHILS % 83.5 % (36.0-66.0); PLATELET COUNT, AUTOMATED 227 10^3/uL (150-450)
--- NOTE | 2021-04-14 11:11 | REP ---
INDICATION: change in condition. COMPARISON: All the latest 04/07/2021 TECHNIQUE: Portable FINDINGS: The technique utilized in obtaining the radiograph has magnified the cardiac silhouette and accentuated the interstitial markings. The cardiomediastinal silhouette and lung kline are unchanged. There is cardiomegaly accentuated by technique. There is a stable mild diffuse increase in the interstitial markings throughout the lung kline without evidence of an acute patchy parenchymal opacity or acute pleural effusion. There is persistent right CP angle blunting and unchanged mild patchy right basilar opacity. The tracheostomy is unchanged. The osseous structures are unchanged. IMPRESSION: Stable chest. Findings as described above. <Electronically signed by Aayush Colbert > 04/14/21 [id number]
[2021-04-14 11:14] LABS: VENOUS BASE EXCESS -7.1 (-2.0-2.0); VENOUS HCO3 18.2 MEQ/L (23.0-27.0); VENOUS O2 SATURATION 97.5 % (60.0-80.0); VENOUS PARTIAL PRESSURE CO2 35.3 mmHg (38.0-50.0); VENOUS PARTIAL PRESSURE O2 106.7 mmHg (30.0-50.0); VENOUS PH 7.329 UNITS (7.330-7.430); VENOUS STANDARD HCO3 18.7 MEQ/L; VENOUS TOTAL CO2 19.2 MEQ/L (24.0-28.0)
[2021-04-14 11:29] LABS: ALBUMIN 1.8 GM/DL (3.2-5.2); ALT/SGPT 8 U/L (12-78); BILIRUBIN,TOTAL 1.1 MG/DL (0.2-1.0); BLOOD UREA NITROGEN 71 MG/DL (7-18); CARBON DIOXIDE LEVEL 21 MEQ/L (21-32); CHLORIDE LEVEL 100 MEQ/L (98-107); CREATININE FOR GFR 6.25 MG/DL (0.70-1.30); GLOMERULAR FILTRATION RATE 10.2 (>60); GLUCOSE, FASTING 103 MG/DL (70-100); POTASSIUM SERUM 4.9 MEQ/L (3.5-5.1); SODIUM LEVEL 133 MEQ/L (136-145); TOTAL PROTEIN 5.8 GM/DL (6.4-8.2); TROPONIN I < 0.02 NG/ML (< 0.10)
[2021-04-14] MEDS ORDERED: LACTULOSE 20 GM/30 ML SYRUP UD PO ONE (12:00)
--- NOTE | 2021-04-14 12:07 | REP ---
INDICATION: Left sided abdominal pain. COMPARISON: Multiple the latest 03/07/2021 TECHNIQUE: Standard helical technique after the intravenous administration of 100 cc Isovue 370 FINDINGS: There are chronic lung base changes status quo. There are no pleural or pericardial effusions. Limited evaluation of the solid intra-abdominal organs and gallbladder show no significant changes. There is hepatosplenomegaly. Once again, there is evidence of gallbladder collapse. Limited evaluation of the pancreas, adrenal glands, and kidneys show no significant changes. There is marked bilateral chronic renal atrophic change with calcification. There is no change in the abdominal aorta or para-regions. No adenopathy has developed. There is a trace amount of free fluid in the right paracolic gutter increased from the prior exam. There are multiple tiny collapsed small bowel loops alongside the cecum. This makes identification of the appendix incomplete at best. The bowel loops and the mesenteries are otherwise essentially unchanged There is extreme muscular wasting There is increased patchy bony density throughout which is unchanged. IMPRESSION: 1. There is fluid in the right pericolic gutter and I cannot identify the appendix. Although I see no pericecal fatty infiltration I would suggest follow-up after oral bowel preparatory contrast administration if acute appendicitis is of clinical concern. 2. Renal osteodystrophy. 3. Other findings and chronic changes as described above <Electronically signed by Aayush Colbert > 04/14/21 [id number]
--- NOTE | 2021-04-14 12:15 | REP ---
INDICATION: increased pain. COMPARISON: None TECHNIQUE: Transabdominal FINDINGS: The examination is markedly limited. The technologist failed to identify the gallbladder, pancreas, common bile duct, or any of the right kidney. The imaged portion of the liver shows diffuse increased echoes. The portion is minimal. IMPRESSION: None diagnostic exam. Consider CT Accredited by the [employer] in General Ultrasound. <Electronically signed by Aayush Colbert > 04/14/21 [id number]
[2021-04-14 14:00] VITALS: BP 133/71
--- NOTE | 2021-04-14 17:03 | REPVR ---
PROCEDURE INFORMATION: Exam: CT Head Without Contrast Exam date and time: 04/14/2021 4:18 PM Age: 51 years old Clinical indication: Altered mental status/memory loss; Additional info: Altered mentation TECHNIQUE: Imaging protocol: Computed tomography of the head without contrast. Radiation optimization: All CT scans at this facility use at least one of these dose optimization techniques: automated exposure control; mA and/or kV adjustment per patient size (includes targeted exams where dose is matched to clinical indication); or iterative reconstruction. COMPARISON: CT Head without contrast 05/09/2020 5:32 AM FINDINGS: Brain: No acute intracranial hemorrhage, cerebral edema, or midline shift. Cerebral ventricles: No hydrocephalus. Paranasal sinuses: There is no acute sinusitis. Mastoid air cells: Bilateral mastoid effusions are present. Orbital cavity: Unremarkable as visualized. Bones/joints: No acute fracture. Soft tissues: Unremarkable. IMPRESSION: No acute intracranial abnormality. Electronically signed by: Jonathan Tam On 04/14/2021 17:02:50 PM
[2021-04-14] MEDS ORDERED: LORazepam 2 MG/ML VIAL IV STA (18:06)
--- NOTE | 2021-04-14 18:22 | IPNPDOC ---
Text Note Date of Service The patient was seen on 04/14/21. NOTE Subjective: Patient was seen and examined at bedside this morning several times. Nurse had called me to evaluate the patient because he was acting more confused. I saw the patient he was deathly not acting as it had previously seen him. He appeared to be staring into space he was able to follow basic commands such as tracking the left side around the room. He was able to nod yes and no to simple questions it he was somewhat able to communicate as well as he had done before. He endorses left-sided abdominal pain. Denies having trouble breathing denies chest pain. I saw the patient several times during the day and in the evening time his sister was at bedside and he was sleeping she tells me he was unable to recognize her when he was awake. Objective: GENERAL: Morbidly obese male. HEAD/NECK: PERRLA, EOMI CARDIOVASCULAR: S1, S2 RESPIRATORY: CTA ABDOMEN: Obese, positive bowel sounds, diffusely tender on the left abdomen. No organomegaly. MUSCULOSKELETAL: Decreased range of movement of lower extremities because he is chronically bedridden. COLLECTIONS TECHNICIAN: Awake but appears confused staring off into space following only very basic commands definitely changed in mental status from prior. Moves bilateral upper extremities. Lower extremities are weak because of bedridden status. Assessment/plan: Patient is 50 years old male with end-stage renal diseases on dialysis, chronic hypoxic hypercapnic respiratory failure secondary to restrictive lung diseases. He recently had trach replaced on 01/01/2021. He is a hemodialysis patient, being following by nephrology. # Acute encephalopathy - His white count is elevated although improved from prior. I've empirically started him on IV vancomycin and Zosyn and obtain blood cultures. His lactate is only 1.8. Pro-calcitonin. - I ordered a stat head CT which was negative. Also stat brain MRI which has not been done yet. He was fighting staff and trying to admit the MRI I ordered 1 mg of IV Ativan to see if this will calm down to be able to get the test done if not will have to be reattempted at a later date. Dr. Ng did note an elevated alkaline phosphatase and total bili slightly elevated ill repeat a CMP tomorrow. - Ammonia slightly elevated but unlikely to explain his symptoms fully however slow ordered one-time dose of lactulose - Blood gases reviewed. I discussed his case with critical care Dr. Yang who agrees with the plan. - I transferred to PCU and added telemetry monitoring. Troponin was negative. - Etiology of his acute encephalopathy still unknown at this time. # Left-sided abdominal pain: This is new. Obtained stat CT abdomen pelvis. I asked Dr. Ng to see the patient and review the CT. He evaluated the patient at bedside. Recommend continued observation. There is no acute abdomen or indication for surgery. He reviewed the CT which tells me is unrevealing as well. # v fib: occurred on 04/07/21 was likely triggered by hyperkalemia. Dr Earl at bedside rapid assessment, unsynchronized cardioversion and transferred to ICU for close monitoring. He did well and his potassium corrected after HD. # Episodes of Acute on Chronic respiratory failure with hypoxia and hypercarbia: secondary to restrictive lung disease from his obesity, obesity hypoventilation. with acute metabolic encephalopathy due to hypercarbia during his prolonged hospitalization. # Morbid obesity/obstructive sleep apnea: Continue pressure support ventilation during sleep # ESRD on hemodialysis: Patient is being dialyzed according to his regular TTS schedule # Hypotension: Continue midodrine on dialysis days. # Anemia: Stable, monitor and transfuse if indicated. # Incontinence-associated dermatitis: Wound care instructions in place. Bilateral heel float boots, ABD pad under straps to protect skin on top of boot # Debility: Chronically bedridden. Pending placement at shelter # CHFpEF: fluid status managed by HD # Chronically bedridden: Awaiting placement to shelter. # Serious disorder: Keppra # Paroxysmal A. fib: Patient on Eliquis 2.5 milligrams twice a day and amiodarone 200 mg daily # Depression/anxiety: Sertraline and clonazepam # GERD: PPI # Severe spinal stenosis: Oxycodone as needed A Yousef Hospitalist VS,Fishbone, I+O VS, Fishbone, I+O Laboratory Tests 04/14/21 10:42 Vital Signs Date Time Temp Pulse Resp B/P (MAP) Pulse Ox O2 Delivery O2 Flow Rate FiO2 04/14/21 14:00 97.5 92 17 133/71 (91) 95 Trach Collar 04/14/21 10:00 5.0 28 I&O- Last 24 Hours up to 6 AM 04/14/21 06:00 Intake Total 100 ml Output Total 0 ml Balance 100 ml YOUSEF,KAYLA A MD Apr 14, 2021 18:22
[2021-04-14] MEDS ORDERED: VANCOMYCIN HCL 1,000 MG, VIAL MATE ADAPTER 1 EACH in NS 250 ML IV SCH (18:35)
[2021-04-14] MEDS ORDERED: VANCOMYCIN HCL 1,000 MG, VIAL MATE ADAPTER 1 EACH in NS 250 ML IV ONE ×2 (19:00→20:00)
[2021-04-14 19:32] VITALS: BP 125/58
[2021-04-14] MEDS: PRAMIPEXOLE (MIRAPEX) 0.125 MG TAB PO SCH (20:03)
[2021-04-14] MEDS: RAMELTEON 8 MG TAB (ROZEREM) PO SCH (20:03)
[2021-04-14] MEDS: PIPERACILLIN/TAZOBACTAM SOD 4.5 GM in D5W MINI-BAG PLUS 50 ML IV SCH (20:14)
--- NOTE | 2021-04-14 20:58 | REPVR ---
PROCEDURE INFORMATION: Exam: MR Head Without Contrast Exam date and time: 04/14/2021 7:11 PM Age: 51 years old Clinical indication: Altered mental status/memory loss; Confusion or disorientation; Patient HX: AMS; Additional info: Rule out stroke TECHNIQUE: Imaging protocol: MR of the head without contrast. COMPARISON: CT Head without contrast 04/14/2021 4:17 PM FINDINGS: Brain: Normal. No acute infarct. No hemorrhage. No significant white matter disease. No edema. Cerebral ventricles: Normal. No ventriculomegaly. Bones/joints: Unremarkable. Paranasal sinuses: Normal as visualized. No acute sinusitis. Mastoid air cells: Normal as visualized. No mastoid effusion. Orbital cavity: Unremarkable. Soft tissues: Unremarkable. IMPRESSION: No acute findings. Electronically signed by: Oscar Jordan On 04/14/2021 20:57:41 PM
[2021-04-14] MEDS ORDERED: SLF 3 ML SYR IV PRN (21:50)
[2021-04-14] MEDS: SLF 3 ML SYR IV SCH (22:38)
--- NOTE | 2021-04-14 23:11 | ECGEPIP ---
[facility] Test Date: 2021-04-14 Pat Name: LINDSAY DEVINE Department: Room: [place] [address] Gender: Male Promotion Manager: AIMEE : 1970 Requested By: KAYLA Neal Order Number: [id number] Reading MD: Jah Hdz Measurements Intervals [place] Rate: 76 P: 8 IL: 264 QRS: -47 QRSD: 110 T: 29 QT: 426 QTc: 479 Interpretive Statements Sinus rhythm with 1st degree AV block Low voltage QRS Left anterior fascicular block Poor R wave progression. Electronically Signed on 04-14-2021 23:11:23 EDT by Jah Hdz
[2021-04-15] VITALS (19 sets, daily range): BP systolic 111–153; BP diastolic 51–67
[2021-04-15] MEDS: SODIUM CHLORIDE HYPERTONIC 3% 15ML NEB SOL INH SCH ×5 (00:05→20:00)
[2021-04-15] MEDS: IPRATROPIUM 0.5MG/ALBUTEROL 2.5MG INH SOL UD 3ML (DUONEB) NEB PRN ×2 (00:05→03:30)
--- NOTE | 2021-04-15 00:38 | IPN ---
PROGRESS NOTE DATE: 04/14/2021 SUBJECTIVE: Mr. Richard has been transferred to acute care in progressive care unit due to altered mentation. He was on ___ level until this morning. Patient became obtunded and had a CAT scan of the head done, which did not show any acute intracranial abnormality. He was then given Ativan 1 mg and MRI of the brain was done. Since then, he has been mostly sleepy. Nursing staff reports that he did open his eyes and then went back to sleep. I could not wake him up. Patient remains on trach collar due to his chronic hypoxemia. His chest x-ray did not show any acute finding other than prominent vasculature and possible mild congestion, which is chronic. His labs were done today, which did not show any abnormality to explain his mentation. His ammonia level was 42, which is only minimally elevated. His BUN was 71 and creatinine 6.25, which is expected for his end-stage renal disease. Lactic acid level was 1.8. PHYSICAL EXAMINATION: VITALS: Temperature 97.6 degrees Fahrenheit, heart rate 100 per minute, respiratory rate 16 per minute, blood pressure 125/58 mmHg and oxygen saturation 95% on trach collar with 5 liters of oxy. HEENT: Head is atraumatic. Neck veins cannot be assessed. Tracheostomy is in place. LUNGS: Bilateral diminished air entry. HEART: Sounds are irregular and tachycardic. He does have history of paroxysmal atrial fibrillation. ABDOMEN: Obese and nontender. EXTREMITIES: Without any cyanosis or clubbing. Right arm AV fistula is patent. LABORATORY STUDIES: Today's labs show sodium 133, potassium 4.9, CO2 21, BUN 71, creatinine 7.25, glucose 103. Lactic acid 1.8. Calcium 8.0. Total bilirubin 1.1, AST 23, ALT 8, alkaline phosphatase 293. Ammonia level 42. WBC 15.0, hemoglobin 9.5, hematocrit 31.7. PROBLEMS: 1. End-stage renal disease: Patient is regularly dialyzed on Wednesday, and Wednesday schedule. He was dialyzed on Wednesday and we plan to dialyze him again tomorrow. At present, I do not see any urgent need for dialysis today. 2. Altered mentation: Etiology remains uncertain. CT scan of head was done this morning and then MRI of brain was done this afternoon. It did not show any acute hemorrhage or infarct. Patient was given Ativan 1 mg for MRI and he is sleepy at this point. We will reevaluate him tomorrow. 3. Respiratory failure: This is a chronic issue related to COPD, obstructive sleep apnea and obesity associated hypoventilation. He has tracheostomy for several years and has been oxygenating well. His volume status is only slightly decompensated and we will try to dialyze him tomorrow and remove about 3 liters of fluid as tolerated. 4. Hyponatremia: Patient has mild hyponatremia which is not likely to have any impact on his mentation. 5. Anemia: His anemia is stable and there is no active bleeding. We will continue to manage with Aranesp once a week that he receives with dialysis. 6. Altered mentation: Etiology remains uncertain. He has been given broad spectrum antibiotics for possible infection. His lactic acid level is normal and no obvious infiltration on the chest x-ray noticed. CAT scan of abdomen and pelvis was also done, which did not show any significant abnormality.
[2021-04-15 04:10] LABS: BASO % 0.1 % (0.0-1.0); EOS % 0.1 % (0.0-3.0); HEMOGLOBIN 9.2 g/dl (13.5-17.5); LYMPH # 1.5 10^3/uL (1.5-5.0); LYMPH % 9.1 % (24.0-44.0); MEAN CORPUSCULAR HGB CONC 29.7 g/dl (32.0-36.5); MEAN CORPUSCULAR VOLUME 87.6 fl (80.0-96.0); MONO # 0.7 10^3/uL (0.0-0.8); NEUTROPHILS # 14.3 10^3/uL (1.5-8.5); NEUTROPHILS % 85.9 % (36.0-66.0); PLATELET COUNT, AUTOMATED 218 10^3/uL (150-450); RED BLOOD COUNT 3.54 10^6/uL (4.30-6.10); WHITE BLOOD COUNT 16.7 10^3/uL (4.0-10.0)
[2021-04-15 04:36] LABS: CALCIUM LEVEL 8.1 MG/DL (8.5-10.1); CREATININE FOR GFR 6.63 MG/DL (0.70-1.30); GLOMERULAR FILTRATION RATE 9.5 (>60); MAGNESIUM LEVEL 1.6 MG/DL (1.8-2.4); POTASSIUM SERUM 5.2 MEQ/L (3.5-5.1)
[2021-04-15] MEDS: SLF 3 ML SYR IV SCH ×3 (05:09→21:22)
[2021-04-15] MEDS: PIPERACILLIN/TAZOBACTAM SOD 4.5 GM in D5W MINI-BAG PLUS 50 ML IV SCH ×2 (05:09→17:35)
[2021-04-15] MEDS: IPRATROPIUM 0.5MG/ALBUTEROL 2.5MG INH SOL UD 3ML (DUONEB) NEB SCH ×4 (07:18→20:00)
[2021-04-15] MEDS: BUDESONIDE 0.5 MG/2 ML INHALATION SUSPENSION INH SCH ×2 (07:18→20:00)
[2021-04-15] MEDS: FORMOTEROL FUMARATE 20 MCG/2 ML INHALATION SOLUTION (PERFOROMIST) INH SCH ×2 (07:18→20:00)
[2021-04-15] MEDS: (RENVELA) SEVELAMER **CARBONate** 800 MG TAB PO SCH ×3 (07:50→17:36)
[2021-04-15] MEDS ORDERED: MAG SULF 1GM/100ML (MAG RUN) 1 GM in IV 1 EA IV ONE ×2 (08:00→09:00)
[2021-04-15] MEDS: MIDODRINE 5 MG TAB PO SCH ×4 (08:00→15:24)
--- NOTE | 2021-04-15 08:59 | IPNPDOC ---
Text Note Date of Service The patient was seen on 04/15/21. NOTE No acute events overnight. He appears to be more alert this am from yesterday. He is not answering many of my questions, but he does nod that he is feeling better. VSSAF NAD abd - soft, nd, obese, TTP LLQ only, no rebound or guarding labs - below A/P) 51y/o male with multiple medical problems, and new onset altered mental status, and LLQ abd pains. No signs of any acute process on head CT, MRI, or abdomen CT. No need for any surgical intervention at this time. There is some edema in the LLQ abdominal wall, but no signs of any cellulitis or abscess on exam. Continue with abx for now, and let surgery know if his physical exam gets worse. We will follow as needed. Kishan Ng DO VS,Carlie, I+O VS, Fishjanae, I+O Laboratory Tests 04/14/21 10:42 04/15/21 04:05 Vital Signs Date Time Temp Pulse Resp B/P (MAP) Pulse Ox O2 Delivery O2 Flow Rate FiO2 04/15/21 04:30 5.0 28 04/15/21 04:00 98.0 70 9 111/57 (75) 98 Trach Collar I&O- Last 24 Hours up to 6 AM 04/15/21 05:59 Intake Total 50 ml Balance 50 ml MISTI NG DO Apr 15, 2021 08:59
[2021-04-15] MEDS: CALCITRIOL 0.25 MCG CAP (S0169) PO SCH (09:00)
[2021-04-15] MEDS: DIMETHICONE 2% OINTMENT(VANICREAM) 70GM TUBE TOP SCH (09:00)
[2021-04-15] MEDS: SERTRALINE 100 MG TAB PO SCH (09:00)
[2021-04-15] MEDS: APIXABAN 2.5 MG TAB (ELIQUIS) PO SCH ×2 (09:00→21:20)
[2021-04-15] MEDS ORDERED: VANCOMYCIN HCL 1,000 MG, VIAL MATE ADAPTER 1 EACH in NS 250 ML IV SCH (09:00)
[2021-04-15] MEDS: VITAMIN D 1,000 INTERNATIONAL UNITS TABLET PO SCH (09:00)
[2021-04-15] MEDS: AMIODARONE 200 MG TAB (PACERONE) PO SCH ×2 (09:00→13:52)
[2021-04-15] MEDS: levETIRAcetam 250MG TABLET (KEPPRA) PO SCH (09:00)
[2021-04-15] MEDS: PANTOPRAZOLE 40MG TAB (PROTONIX) PO SCH (09:00)
[2021-04-15] MEDS: IRON SUCROSE 100MG 5ML VIAL (J1756 PER 1MG) IV SCH (10:54)
--- NOTE | 2021-04-15 12:42 | IPN ---
PROGRESS NOTE DATE: 04/14/2021 SUBJECTIVE: The patient remains lethargic despite an impressive arterial blood gas yesterday, still hyperkalemia with leukocytosis on broad-spectrum antibiotics, not responding well today. He opens his eyes but does not answer questions but nods to pain when asked about the left lower quadrant. No nausea, vomiting, trach in place. OBJECTIVE: Vitals: Temperature 98, pulse 70, respiratory rate 9-10, blood pressure 111/57, 98% on five liters trach collar, 28% FiO2. General: The patient is lethargic, opens his eyes but not answer questions appropriately, remains confused. Unable to obtain review of systems. Winces to pain in the left lower quadrant. No JVD. Tracheostomy. Lungs: Diminished with no crackles or rales. Heart: S1, S2, irregularly irregular. Abdomen: Obese, soft, slightly tender, left lower quadrant. Extremities: Right AV fistula, no cyanosis, clubbing noted. LABORATORY DATA: White count 16.7, hemoglobin 9, hematocrit 31, platelet count 218. Sodium 136, potassium 5.2, chloride 102, bicarb 22, BUN 80, creatinine 6.6 with glucose 112. Magnesium of 1.6. Blood culture pending. 03/29/21 sputum culture: Pseudomonas MRSA in yeast. ASSESSMENT AND PLAN: This is a 51-year-old male admitted June 13 with history of morbid obesity, BMI of 44.5, chronic hypercarbic and hypoxic respiratory failure, status post tracheostomy, maintained on maintenance dialysis due to end-stage renal disease on Wednesday, , Wednesday with fistula, seizure disorder, chronic hypotension, on midodrine, anemia of chronic disease, incontinence, associated dermatitis, reflux, depression, anxiety, tracheal stenosis, status post dilation, functional paraparesis, paresis, right upper extremity due to severe spinal stenosis, bed-bound at baseline, transferred from [facility] to ICU status due to septic shock with gram negative rods in the blood, found to have E. coli in the blood most likely due to urine as a source. At that time, CT, abdomen and pelvis showed dilated common bile duct, 9 mm by ultrasound, showed 6 mm with decreasing bilirubin. The patient was treated for Pseudomonas and MRSA in the sputum. Chest x-ray, CT, however, showed no pneumonia. E. coli in the blood was thought to be due to source. The patient was treated with Levophed drip previously and 3.7 liters of normal saline bolus. He was treated with vancomycin, meropenem and Diflucan with improved white count. The patient's Pseudomonas and MRSA were thought to be colonizations and there is no pneumonia. He was then transferred back to [facility] status but had an episode of V fib, status post unsynchronized cardioversion, transferred to ICU for further observation. This was thought to be secondary to severe hyperkalemia which responded to dialysis session. Since then, the patient has had altered mental status and transferred back to acute status, currently on broad-spectrum antibiotics, vancomycin and Zosyn until blood cultures are finalized. CURRENT ISSUES: 1. Acute metabolic encephalopathy. 2. Persistent hyperkalemia to end-stage renal disease on maintenance dialysis, Wednesday, , Wednesday. 3. Left lower quadrant abdominal pain with negative findings on CT, abdomen and pelvis, not an acute abdomen. 4. History of V fib on 04/07/2021, status post cardioversion. 5. [id number] hypoxic and hypercarbic respiratory failure secondary to obesity, hypoventilation. 6. Morbid obesity, obstructive sleep apnea. 7. Hypotension, chronic on midodrine. 8. Anemia of renal failure. 9. Incontinence, associated dermatitis. 10. Debility. 11. CHF with preserved systolic function. 12. Chronically bedridden, functional quadriplegia. 13. Seizure disorder on chronic Keppra. 14. Paroxysmal atrial fibrillation on amiodarone and Eliquis. 15. Depression, anxiety on Sertraline, Clonazepam. 16. Severe spinal stenosis with functional quadriplegia 17. GERD. PLAN: The patient's procalcitonin is pending. He remains afebrile but with persistent leukocytosis, currently on broad-spectrum antibiotics, vancomycin and Zosyn. He has known colonization with Pseudomonas and MRSA, does not appear to have any acute pneumonia on imaging studies. CT of abdomen and pelvis is unremarkable as well. We will obtain arterial blood gas to rule out worsening hypercarbia, maintain on his home CPAP settings for now. MRI of the brain has no acute CVA. Continue with present management. Dialysis managed by nephrology. MARGO
--- NOTE | 2021-04-15 13:42 | IPN ---
PROGRESS NOTE DATE: 04/15/2021 SUBJECTIVE: Mr. Richard is seen this morning on his bedside. He was transferred to progressive care unit yesterday due to altered mentation. He is being dialyzed on his bedside in the room. He is awake, but still altered. Yesterday he was totally unresponsive after his MRI. Today he is unable to communicate well. Nursing staff reports that he did complain of pain earlier, but at present while I am here, he is not making any sense. PHYSICAL EXAMINATION: VITALS: Temperature 98 degrees Fahrenheit, heart rate 98 per minute, respiratory rate 20 per minute, blood pressure 137/55 mmHg and oxygen saturation 100% on trach collar. HEENT: Head is atraumatic. Neck veins cannot be assessed. Tracheostomy is in place. LUNGS: Diminished breath sounds bilaterally. HEART: Sounds are somewhat irregular. ABDOMEN: Obese and bowel sounds are present. EXTREMITIES: Without any cyanosis or clubbing. Right arm AV fistula is currently being used for dialysis. He has paraplegia due to severe spinal stenosis. He also has some contracted deformity of his right hand fingers. NEUROLOGIC: He remains altered, though he is awake today. LABORATORY STUDIES: WBC today 16.7, hemoglobin 9.2, hematocrit 31. Sodium 136, potassium 5.2, BUN 80, creatinine 6.63, calcium 8.1 and magnesium 1.6. PROBLEMS: 1. End-stage renal disease: Patient is being dialyzed and he is tolerating dialysis. We are trying to remove about 2.5 liters of fluid. 2. Hyperkalemia: Mild hyperkalemia will be checked with dialysis. Patient is not eating much and we are using 2.0 mEq potassium bath today. 3. Respiratory failure: Patient has chronic respiratory failure due to obstructive sleep apnea, COPD and obesity related hypoventilation. His tracheostomy seems to be functioning and his oxygenating 100%. We are removing about 2.5 liters of fluid today. 4. Anemia: Stable at present and we will continue with weekly dose of Aranesp. He is also receiving intravenous iron. 5. Altered mentation: Etiology remains uncertain. Patient is on broad spectrum antibiotics with Zosyn and Vancomycin, though no obvious source of infection. 6. Hypotension: Patient has been on Midodrine 10 mEq t.i.d., however, he could not take his pills today as he is not able to swallow. Blood pressure is stable at present during dialysis.
[2021-04-15 14:32] LABS: VENOUS HCO3 18.5 MEQ/L (23.0-27.0); VENOUS O2 SATURATION 98.7 % (60.0-80.0); VENOUS PARTIAL PRESSURE CO2 37.3 mmHg (38.0-50.0); VENOUS PARTIAL PRESSURE O2 144.4 mmHg (30.0-50.0); VENOUS PH 7.314 UNITS (7.330-7.430); VENOUS STANDARD HCO3 18.8 MEQ/L; VENOUS TOTAL CO2 19.7 MEQ/L (24.0-28.0)
[2021-04-15] MEDS: PRAMIPEXOLE (MIRAPEX) 0.125 MG TAB PO SCH (21:20)
[2021-04-15] MEDS: RAMELTEON 8 MG TAB (ROZEREM) PO SCH (21:20)
[2021-04-16] VITALS (36 sets, daily range): BP systolic 72–168; BP diastolic 29–100
[2021-04-16] MEDS: IPRATROPIUM 0.5MG/ALBUTEROL 2.5MG INH SOL UD 3ML (DUONEB) NEB PRN ×2 (00:23→03:45)
[2021-04-16] MEDS: SODIUM CHLORIDE HYPERTONIC 3% 15ML NEB SOL INH SCH ×2 (00:23→03:45)
[2021-04-16] MEDS ORDERED: METOPROLOL 5 MG/5 ML VIAL As Ordered ONE (04:29)
[2021-04-16] MEDS ORDERED: METOPROLOL 5 MG/5 ML VIAL IV STA (04:31)
[2021-04-16] MEDS ORDERED: NS 500 ML IV ONE (05:45)
[2021-04-16 05:48] LABS: BASO # 0.1 10^3/uL (0.0-0.2); BASO % 0.2 % (0.0-1.0); EOS # 0.1 10^3/uL (0.0-0.5); EOS % 0.2 % (0.0-3.0); HEMATOCRIT 38.5 % (42.0-52.0); HEMOGLOBIN 10.9 g/dl (13.5-17.5); LYMPH # 4.9 10^3/uL (1.5-5.0); LYMPH % 12.8 % (24.0-44.0); MEAN CORPUSCULAR HEMOGLOBIN 25.8 pg (27.0-33.0); MEAN CORPUSCULAR HGB CONC 28.3 g/dl (32.0-36.5); MONO # 1.9 10^3/uL (0.0-0.8); NEUTROPHILS # 30.6 10^3/uL (1.5-8.5); NEUTROPHILS % 80.1 % (36.0-66.0); PLATELET COUNT, AUTOMATED 378 10^3/uL (150-450); RED BLOOD COUNT 4.23 10^6/uL (4.30-6.10)
[2021-04-16] MEDS ORDERED: EPINEPHrine 1MG/10ML SYRINGE 1.5IN ONE (06:11)
[2021-04-16] MEDS ORDERED: AMIODARONE 150MG/3ML INJ (J0282) ONE (06:11)
[2021-04-16] MEDS ORDERED: CALCIUM CHLORIDE 10% 1 GM/10 ML SYR ONE (06:11)
[2021-04-16] MEDS ORDERED: DEXTROSE 50% 50 ML SYRINGE ONE (06:11)
[2021-04-16] MEDS ORDERED: SODIUM BICARBONATE 8.4% INJ 50 ML SYRINGE ONE (06:11)
[2021-04-16 06:14] LABS: WHITE BLOOD COUNT 38.2 10^3/uL (4.0-10.0)
[2021-04-16 06:23] LABS: ALBUMIN 2.2 GM/DL (3.2-5.2); ALT/SGPT 10 U/L (12-78); BLOOD UREA NITROGEN 79 MG/DL (7-18); CALCIUM LEVEL 9.1 MG/DL (8.5-10.1); CARBON DIOXIDE LEVEL 16 MEQ/L (21-32); CHLORIDE LEVEL 100 MEQ/L (98-107); CREATININE FOR GFR 6.88 MG/DL (0.70-1.30); GLOMERULAR FILTRATION RATE 9.1 (>60); GLUCOSE, FASTING 116 MG/DL (70-100); MAGNESIUM LEVEL 2.2 MG/DL (1.8-2.4); POTASSIUM SERUM 6.8 MEQ/L (3.5-5.1); SODIUM LEVEL 132 MEQ/L (136-145); TOTAL PROTEIN 7.2 GM/DL (6.4-8.2); TROPONIN I < 0.02 NG/ML (< 0.10)
--- NOTE | 2021-04-16 06:49 | IPNPDOC ---
Date Seen The patient was seen on 04/16/21. Progress Note Cardiac arrest note: Max Cart called at 0543 AM. I arrived to patient's room on 0544 AM, with ACLS protocol underway. Patient was seen to be unresponsive. Chest compressions were underway, with bag ventilation via patient's trach. Physical exam revealed 3mm pupil bilaterally. Neck supple with non deviated trachea. Air entry was symmetrical on pulmonary auscultation. No carotid pulse was palpable. Patient had cool extremities. A total of 7 doses of epinephrine were administered, in addition to amiodarone (300 mg, 150 mg) boluses as well as an amp of D50, 1g calcium gluconate and an am of bicarbonate. A total of 8 shocks were delivered for Vtac seen on air sampling and monitoring. Despite numerous rounds of ACLS, no pulse was able to be regained. I spoke to the patient's sister and healthcare proxy Ms. Radha Jimenez, who requested we stop ACLS at this point. VS, I&O, 24H, [facility] Vital Signs/I&O Vital Signs Date Time Temp Pulse Resp B/P (MAP) Pulse Ox O2 Delivery O2 Flow Rate FiO2 04/16/21 05:18 138 160/79 04/16/21 04:00 10.0 35 04/15/21 20:45 96.9 15 99 Trach Collar I&O- Last 24 Hours up to 6 AM 04/16/21 06:00 Intake Total 470 ml Output Total 3000 ml Balance -2530 ml Laboratory Data 24H LABS Laboratory Tests 2 04/15/21 14:21: Blood Gas Bicarbonate Standard 18.8, Venous Blood pH 7.314L, Venous Blood Partial Pressure CO2 37.3L, Venous Blood Partial Pressure O2 144.4H, Venous Blood Total Carbon Dioxide 19.7L, Venous Blood HCO3 18.5L, Venous Blood Oxygen Saturation 98.7H, Venous Blood Base Excess -7.0L, Ammonia 34H, Prolactin 8.7 04/16/21 04:55: Anion Gap 16, Glomerular Filtration Rate 9.1L, Lactic Acid Level 3.6*H, Calcium Level 9.1, Magnesium Level 2.2, Total Bilirubin 1.0, Aspartate Amino Transf (AST/SGOT) 41H, Alanine Aminotransferase (ALT/SGPT) 10L, Alkaline Phosphatase 286H, Troponin I < 0.02, Total Protein 7.2#, Albumin 2.2#L, Albumin/Globulin Ratio 0.4 04/16/21 05:38: Immature Granulocyte % (Auto) 1.7, Neutrophils (%) (Auto) 80.1H, Lymphocytes (%) (Auto) 12.8L, Monocytes (%) (Auto) 5.0, Eosinophils (%) (Auto) 0.2, Basophils (%) (Auto) 0.2, Neutrophils # (Auto) 30.6H, Lymphocytes # (Auto) 4.9, Monocytes # (Auto) 1.9H, Eosinophils # (Auto) 0.1, Basophils # (Auto) 0.1, Nucleated Red Blood Cells % (auto) 0.4H CBC/BMP Laboratory Tests 04/16/21 04:55 04/16/21 05:38 Microbiology Microbiology 04/14/21 Blood Culture - Preliminary, Resulted No growth after 24 hours . All specim... 04/14/21 Blood Culture - Preliminary, Resulted No growth after 24 hours . All specim... 04/07/21 Blood Culture - Final, Complete NO GROWTH AFTER 5 DAYS KENYON ALCALA MD Apr 16, 2021 06:49
--- NOTE | 2021-04-16 10:04 | DSES ---
DISCHARGE SUMMARY DATE OF ADMISSION: 06/02/2020 DATE OF DISCHARGE: 04/16/2021 TIME OF : 6:12 a.m. CONSULTANTS DURING THIS ADMISSION: 1. FENG GIRALDO MD - Nephrology 2. MO YATES MD Nephrology 3. LAXMI YATES DO - Nephrology 4. PRIYANKA YBARRA MD Vascular Surgeon 5. LYNDON QUESADA MD Infectious Disease Specialist THORACIC SURGEON: RAMONE TELLES M.D. PRIMARY DISCHARGE DIAGNOSIS: 1. Endstage renal disease on maintenance hemodialysis. 2. Hyperkalemia induced V-tach. 3. Chronic respiratory failure due to obstructive sleep apnea. 4. COPD. 5. Morbid obesity, BMI of 44.5. 6. Obesity hypoventilation syndrome status post tracheostomy. 7. History of mucous plugging. 8. Anemia of renal failure chronic disease. 9. Acute metabolic encephalopathy. 10.Chronic hypotension. 11.Medical noncompliance, refusing his medications. 12.Grade 2 diastolic congestive heart failure. 13.Obstructive sleep apnea. 14.Left lower quadrant abdominal pain. 15.Sepsis. 16.Secondary hyperparathyroidism. 17.Paroxysmal atrial fibrillation. 18.Pseudomonas colonization in the sputum. 19.E. coli septic shock. 20.Chronic hearing loss. 21.Episodes of acute on chronic respiratory failure with hypoxia and hypercarbia due to restrictive lung disease. 22.Chronically bed-ridden. 23.Seizure disorder. 24.Depression/anxiety. 25.Gastroesophageal reflux disease. 26.Severe spinal stenosis. 27.Conjunctivitis. 28.Blockage of tracheostomy with secretions. 29.Tracheal stenosis status post dilatation. 30.Tracheomalacia. HOSPITAL COURSE: This is a 51-year-old male admitted in May 2020 with acute on chronic hypoxic respiratory failure with increasing mucous plugging. Patient had hyperkalemia and maintained on maintenance dialysis for correction. Underwent tracheostomy in 2013 for morbid obesity, CO2 retention, severe obstructive sleep apnea, tracheostomy changed to approximately every three months with Shiley tracheostomy but that was not able to be replaced in May 2020. Bronchoscopy in April 2020 showed a 3 mm stenosis in the trachea just at the end of the Shiley tracheostomy tube, extended about three tracheal rings due to granulation tissue and scarring from tracheomalacia. Patient's trachea was dilated at [facility] for possible tracheal resection. After thoracic surgery dilated the trachea exchanging it for a #8 [place] flex tube [facility] had difficulty undertaking a tracheal resection. Patient was then transferred back to [facility] because of very tight stenosis and cannot get the air passed through the trach tube by passing [place] valve. Patient required suctioning four to six times daily. In August 2020, thoracic surgery was asked to change the tracheostomy tube. The patient after trach tube exchange on 09/11/20 was transferred to the ICU for vent management. Dr. Yang was consulted. Chest x-ray had no new pathology. COVID-19 rapid test was negative. He had persistent hypotension, continued on Midodrine. All home medications were continued. The patient was continually dialyzed. Dr. Goncalves, wound surgeon was consulted for chronic ulcer management with dressing changes. The patient had responded well to vent management, able to be remained off mechanical ventilation due to trach collar and transferred out of ICU on 10/09/20. On 10/12/2020, Dr. Campbell was consulted for panic and anxiety attacks, difficulty to wean off the vent, made no changes in medications due to increased risk of CO2 retention aside from him increasing the Sertraline to 200 mg daily. On 11/08/2020, Dr. Ramone Telles had another tracheostomy change and dilation with bronchoscopy due to tracheal stenosis and tracheal lesion which the patient tolerated well. On 11/20, the patient was noted to have conjunctivitis, given Erythromycin, start date was 11/20/2020 and treated for seven days. On 12/02/2020, Mr. Dumontyun was consulted for toenail care, debrided at the bedside. Dr. Goncalves was consulted on 12/25/2020 due to incontinent associated dermatitis due to episodes of diarrhea while the patient was on antibiotics for pneumonia. He was treated with cleansing of the skin after bowel movements, washed with mild soap, Cavilon Advanced Tissue Barrier Cream, foam dressings. On January 01, 2021, Dr. Ramone Telles was again requested to assist in significant mucous plugging and oxygen desaturations. The tracheostomy was again replaced under anesthesia and need for possible tracheal dilation once again. On 01/08/2021, the patient was medically stable and changed to ALC status pending placement to a facility with hemodialysis chair and trach care. The patient was kept in ALC status. On 03/04/2021 he had another tracheostomy change by Dr. Telles. On 03/06/2021, Dr. Ybarra of Vascular Surgery was consulted as the patient was transferred emergently to ICU for septic shock, triple lumen catheter was placed. Patient was started on IV Meropenem, renally dosed. Dr. Lyndon Quesada was consulted. Patient was treated for E. coli bacteremia with possible as the source. He was given one dose of Diflucan for probable skin rash from Candidiasis, patient was hypotension, was kept on Levophed IV drip, titrated to a mean arterial pressure greater than 65. He was on IV Vancomycin and Meropenem. The patient had gram negative sepsis with septic shock from possible GI source, however possible ascending cholangitis due to abnormal liver function tests. General surgery was not convinced that there was a cholangitis. He was at extreme high risk for operative intervention and determined to be nonoperative. Empiric antibiotics were continued. Vancomycin and Meropenem were renally dosed. Patient had episodes of hypoglycemia due to decrease in oral intake and abdominal discomfort. Fingersticks were changed to b.i.d. dosing and hypoglycemic protocol. He continued to have mucous plugging with suctioning. The patient completed 10 days of IV Meropenem, Vancomycin was discontinued. Liver function tests improved with possible cholangitis. On 04/07/2021, the patient had altered mental status, was somnolent and arousable. O2 saturation was high 70s to 80s requiring 10 liters. He had a low-grade temperature of 100.8, blood pressure was 130/70, glucose of 107. Rhythm strips showed sustained V-tach and rapid assessment ACLS was done. Patient underwent unsynchronized cardioversion. Hotel Assistant General Manager, Dr. Earl recommended amiodarone as well as Lidocaine push, was given IV Calcium Gluconate due to V-tach. The patient was thought to have had V-tach arrest due to hyperkalemia, not being dialyzed since 04/05/2021. At that time, patient was given Kayexalate and was scheduled to have dialysis. Mean arterial pressure dropped down into the 60s and a normal saline IV bolus was given and he was transferred to the ICU for close monitoring. The patient was kept on amiodarone. Stat echocardiogram done on 04/08/2021 status post V-tach showed Grade 2 diastolic dysfunction, LVH, normal aortic mitral valve, right sided heart valves were not well seen, trivial pericardial effusion. Patient had elevated white count but improved from prior. CT of the head was negative. Stat MRI of the brain had not been done due to patient being combative. Patient complained of left lower quadrant abdominal pain. CT of the abdomen was negative. General Surgical consult with Dr. Ng recommended no surgical intervention and no cause for the abdominal pain. Patient was placed on broad-spectrum antibiotics, Vancomycin and Zosyn with slight improvement in white count from 22 down to 16.7. Procalcitonin was 6.83, decreased from 252 on 03/06/2021. Blood culture, two sets on 04/07 and 04/14 were all negative. MRI of the brain on 04/14/2021 showed no acute findings. Venous blood gas did not show any respiratory acidosis. Repeat blood gas on 04/14 had a CO2 of 38, pH of 7.337. Patient's sputum culture had colonization with MRS and pseudomonas yeast-like organism, blood cultures remained negative. At 5:43 a.m. on 04/16/2021, __ was called to the room since patient was extremely hypoxic. He was tachycardic with persistent altered mental status. Chest compressions were started with bag ventilations via the patient's tracheostomy. Pupils were 3 mm bilaterally. Neck had a non-deviated trachea, air entry was symmetric. Patient had cool extremities. Seven doses of Epinephrine were administered in addition to amiodarone two doses of 300 mg and 150 mg as well as an amp of D50, a gram of calcium gluconate and an amp of bicarbonate with 8 total shocks delivered for a V-tach on the monitor. Despite numerous rounds of ACLS, pulse was not regained, patient's health care proxy, Shey Jimenez requested for ACLS to be discontinued. Case was discussed with client relationship manager, Dr. Yang at the time who felt that mucous plugging would not cause a significant change in patient's state. He felt that pulmonary embolism was more likely since the patient had significant tachycardia and hypoxia. Patient was properly covered with IV Zosyn and Vancomycin and was afebrile. Patient was declared at 6:12 a.m. The family was informed. PHYSICAL EXAM: No pulse. No breath sounds. No bowel sounds. No heart sounds. at 6:12 a.m. DISCHARGE LABORATORY DATA/IMAGING STUDIES AND MICROBIOLOGY: Please see the chart. TIME SPENT ON DISCHARGE: 35 minutes
[2021-04-16] MEDS ORDERED: **VANCO AFTER HD** MISC XX SCH (16:00)
--- NOTE | 2021-04-16 21:32 | ECGEPIP ---
[facility] Test Date: 2021-04-16 Pat Name: LINDSAY DEVINE Department: Room: [place] [address] Gender: Male Flow Floor Attendant: HENRY : 1970 Requested By: BRETT Marie Order Number: [id number] Reading MD: Jah Hdz Measurements Intervals [place] Rate: 136 P: [place]: QRS: -64 QRSD: 120 T: 57 QT: 344 QTc: 517 Interpretive Statements Sinus tachycardia Poor R wave progression Left anterior fascicular block Increased heart rate compared with 04/14/2021 Electronically Signed on 04-16-2021 21:31:50 EDT by Jah Hdz
== END 2021-04-16 06:12 | disposition expired | DRG 166 ==
LOC: M PCU 18:15 → M MSPAV 06-19 17:27 → M PCU 10-05 12:55 → M MSPAV 10-17 21:35 → M PCU 12-20 19:25 → M MSPAV 12-21 14:28 → M PCU 12-31 11:23 → M MSPAV 01-02 18:03 → M MS5PR 02-11 11:11 → M PCU 03-06 11:06 → M ICU 03-06 12:20 → M PCU 03-09 11:34 → M MS5PR 03-10 21:38 → M ICU 04-07 20:19 → M MS5PR 04-09 17:06 → M PCU 04-14 19:10
PROVIDERS: ADMIT Internal Medicine Pulmonary Disease; ATTEND Neuromusculoskeletal Medicine & OMM
PROC: 0B718DZ Dilation of Trachea with Intraluminal Device, Via Natural or Artificial Opening Endoscopic (ICD-10-PCS; 2020-09-11)
PROC: 0BC18ZZ Extirpation of Matter from Trachea, Via Natural or Artificial Opening Endoscopic (ICD-10-PCS; 2020-09-11)
PROC: 0B21XFZ Change Tracheostomy Device in Trachea, External Approach (ICD-10-PCS; principal; 2020-09-11 12:15)
PROC: 0B21XFZ Change Tracheostomy Device in Trachea, External Approach (ICD-10-PCS; 2020-11-08)
PROC: 0BC18ZZ Extirpation of Matter from Trachea, Via Natural or Artificial Opening Endoscopic (ICD-10-PCS; 2021-01-01)
PROC: 0B21XFZ Change Tracheostomy Device in Trachea, External Approach (ICD-10-PCS; 2021-01-01)
PROC: 5A1D70Z Performance of Urinary Filtration, Intermittent, Less than 6 Hours Per Day (ICD-10-PCS; 2021-01-28)
DX: J96.21 Acute and chronic respiratory failure with hypoxia (principal); N18.6 End stage renal disease; G93.41 Metabolic encephalopathy; A41.51 Sepsis due to Escherichia coli [E. coli]; R65.21 Severe sepsis with septic shock; Z68.41 Body mass index [BMI] 40.0-44.9, adult; J95.03 Malfunction of tracheostomy stoma; Z68.43 Body mass index [BMI] 50.0-59.9, adult; I50.32 Chronic diastolic (congestive) heart failure; N39.0 Urinary tract infection, site not specified; E66.2 Morbid (severe) obesity with alveolar hypoventilation; N25.81 Secondary hyperparathyroidism of renal origin; J96.22 Acute and chronic respiratory failure with hypercapnia; Z99.2 Dependence on renal dialysis; G40.909 Epilepsy, unspecified, not intractable, without status epilepticus; J96.01 Acute respiratory failure with hypoxia; J96.02 Acute respiratory failure with hypercapnia; Z93.0 Tracheostomy status; E83.39 Other disorders of phosphorus metabolism; F44.4 Conversion disorder with motor symptom or deficit; E87.5 Hyperkalemia; G47.33 Obstructive sleep apnea (adult) (pediatric); D63.1 Anemia in chronic kidney disease; Z91.14 Patient's other noncompliance with medication regimen; F41.9 Anxiety disorder, unspecified; F32.9 Major depressive disorder, single episode, unspecified; K21.9 Gastro-esophageal reflux disease without esophagitis; J39.8 Other specified diseases of upper respiratory tract; L89.622 Pressure ulcer of left heel, stage 2; L89.321 Pressure ulcer of left buttock, stage 1; L89.322 Pressure ulcer of left buttock, stage 2